=== PATIENT | female | born 1975 | race Caucasian/White ===

== ENCOUNTER 2024-05-09 10:09 | Emergency (ER) | payer OTHER, SELFPAY ==
[2024-05-09] VITALS (12 sets, daily range): BP systolic 129–141; BP diastolic 65–98; PULSE 70–89; TEMP 37; O2SAT 96–98; BMI 34.2
--- NOTE | 2024-05-09 10:15 | ECG_ITS ---
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
--- NOTE | 2024-05-09 10:27 | US_ITS ---
The [address] [address] Patient Name: MIKE SAMPSON MRN: [id number] date: 1975 Sex: F Assigned Patient Location: ER Current Patient Location: ED.MAIN Accession/Order Number: [id number] Exam Date: 05/09/2024 10:28 Report Date: 05/09/2024 11:31 At the request of: NATHANAEL ROSE Procedure: US venous doppler LE LT EXAM: US venous doppler LE LT HISTORY: calf swelling COMPARISON: None. TECHNIQUE: Grayscale, color and Doppler FINDINGS: Region: Left leg Thrombus: None Flow: Normal Augmentation: Normal Compressibility: Normal Other: Identified in the lateral thigh correspond to the patient's palpable mass is a focal 4.0 x 4.1 x 1.1 cm lesion isoechoic to the surrounding subcutaneous fat, a lipoma is favored US/US venous doppler LE LT IMPRESSION: No deep or superficial vein thrombus identified in the left leg 4.1 cm lipoma corresponding to the patient's palpable abnormality Electronically authenticated by: SYDNI JORDAN Date: 05/09/2024 11:31
[2024-05-09 10:42] LABS: Basophils Percent Auto 0.7 % (0.2-2.0); Eosinophils Absolute Auto 0.1 10^3/uL (0.0-0.7); Eosinophils Percent Auto 1.6 % (0.9-7.0); Hematocrit 33.5 % (36.0-48.0); Hemoglobin 12.1 g/dL (12.0-16.0); Immature Granulocytes Abs Auto 0.02 10^3/uL (0.00-0.03); Immature Granulocytes Pct Auto 0.3 % (0.0-0.5); Lymphocytes Absolute Auto 1.9 10^3/uL (1.2-3.8); Lymphocytes Percent Auto 30.4 % (20.5-60.0); Mean Corpuscular HGB Conc 36.1 g/dL (29.9-35.2); Mean Corpuscular Hemoglobin 30.3 pg (26.7-34.0); Mean Platelet Volume 9.7 fL (9.5-13.5); Monocytes Absolute Auto 0.4 10^3/uL (0.3-0.8); Monocytes Percent Auto 7.2 % (1.7-12.0); Neutrophils Absolute Auto 3.7 10^3/uL (1.4-6.5); Neutrophils Percent Auto 59.8 % (43.0-75.0); Platelet Count 267 10^3/uL (150-450); Red Blood Count 3.99 10^6/uL (4.20-5.40); White Blood Count 6.2 10^3/uL (4.0-11.0)
--- NOTE | 2024-05-09 10:47 | XR_ITS ---
The [address] [address] Patient Name: MIKE SAMPSON MRN: [id number] date: 1975 Sex: F Assigned Patient Location: ED.MAIN Current Patient Location: ER Accession/Order Number: [id number] Exam Date: 05/09/2024 10:40 Report Date: 05/09/2024 10:57 At the request of: NATHANAEL ROSE Procedure: XR chest 1V EXAMINATION: XR chest 1V HISTORY: cp COMPARISON: No relevant comparison available. TECHNIQUE: AP portable FINDINGS: LUNGS: No significant pulmonary parenchymal abnormalities. VASCULATURE: No increased pulmonary vasculature. PLEURA: No pneumothorax, effusion, or pleural thickening. CARDIAC: No cardiomegaly or cardiac silhouette abnormality. MEDIASTINUM: No visible mass or adenopathy. Loop Recorder BONES: No fracture or visible bone lesion. OTHER: Negative. XR/XR chest 1V IMPRESSION: No acute cardiopulmonary process Electronically authenticated by: SYDNI JORDAN Date: 05/09/2024 10:57
[2024-05-09 10:55] LABS: D Dimer 0.32 mg/L FEU (<=0.59)
[2024-05-09 10:56] LABS: HCG Qualitative NEGATIVE (NEGATIVE); Internal Control Within Normal Limits
[2024-05-09 10:59] LABS: Alanine Aminotransferase 62 U/L (14-59); Albumin Globulin Ratio 1.1; Albumin Level 3.6 g/dL (3.4-5.0); Alkaline Phosphatase 104 U/L (46-116); Anion Gap 14.8; Aspartate Amino Transferase 40 U/L (15-37); BUN Creatinine Ratio 10.6; Bilirubin Total 0.5 mg/dL (0.2-1.0); Chloride 103 mmol/L (98-107); Estimated GFR (African America >60 (>=60 mL/min/1.73m^2); Estimated GFR (Non-African Ame >60 (>=60 mL/min/1.73m^2); Globulin 3.4 g/dL; Glucose 109 mg/dL (74-106); Sodium 141 mmol/L (136-145); Troponin I High Sensitivity <4.0 pg/mL (4.0-51.3)
[2024-05-09 11:00] LABS: Potassium 2.8 mmol/L (3.5-5.1)
[2024-05-09] MEDS: POTASSIUM BICARBONATE/CIT 25 MEQ TABLET EFF 50 MEQ PO (11:14)
--- NOTE | 2024-05-09 11:24 | ED.CHESTPAI1 ---
HPI - Chest Pain General Chief Complaint: Chest Pain Stated Complaint: CHEST PAIN/ SHORTNESS OF BREATH Time Seen by Provider: 05/09/24 10:14 Mode of arrival: walk-in Limitations: no limitations History of Present Illness HPI narrative: The patient is a 48-year-old female is coming to the ER with a complaint of symptoms that started almost an hour before arrival, the patient apparently was in her work when she started having tongue numbness and left-sided facial numbness then she started having retrosternal chest pain and she took some nitro, though symptoms just resolved before arrival The patient denies any shortness of breath nausea vomiting or any other concerns She mentioned that she have a lump in the posterior aspect of her left thigh that been going on for a while She denies any other complaints of difficulty breathing although she mentioned that over the last few days she has been feeling generally tired No fever no chills no chest pain at the moment it all resolved after she took the nitro Related Data Home Medications ?Medication ?Instructions ?Recorded ?Confirmed amlodipine 10 mg tablet 10 mg PO QDAY 05/09/24 05/09/24 atorvastatin 80 mg tablet 80 mg PO .qhs 05/09/24 05/09/24 carvedilol 3.125 mg tablet 3.125 mg PO Q12H 05/09/24 05/09/24 cholecalciferol (vitamin D3) 10 10 mcg PO QDAY 05/09/24 05/09/24 mcg (400 unit) capsule (Vitamin D3) ezetimibe 10 mg tablet 10 mg PO QDAY 05/09/24 05/09/24 gabapentin 300 mg capsule 300 mg PO Q12H 05/09/24 05/09/24 hydroxyzine pamoate 25 mg capsule 25 mg PO Q6H PRN anxiety 05/09/24 05/09/24 pantoprazole 40 mg tablet,delayed 40 mg PO Q12H 05/09/24 05/09/24 release paroxetine HCl 40 mg tablet 40 mg PO QDAY 05/09/24 05/09/24 ranolazine 1,000 mg 1,000 mg PO Q12H 05/09/24 05/09/24 tablet,extended release,12 hr ticagrelor 60 mg tablet (Brilinta) 60 mg PO Q12H 05/09/24 05/09/24 trazodone 100 mg tablet 100 mg PO .qhs 05/09/24 05/09/24 Previous Rx's ?Medication ?Instructions ?Recorded potassium bicarbonate-citric acid 20 meq PO DAILY #5 ea 05/09/24 20 mEq effervescent tablet Allergies Allergy/AdvReac Type Severity Reaction Status Date / Time clopidogrel (From Plavix) AdvReac Severe crystalized Verified 05/09/24 10:23 in brain Review of Systems ROS Status of ROS 10 or more systems reviewed and unremarkable except as noted in history and below PFSH [facility] Medical History (Updated 05/09/24 @ 11:53 by Martina Mcqueen MD) Heart disease ?I51.9 - Heart disease, unspecified (ICD-10) Surgical History (Updated 05/09/24 @ 10:25 by Jordon Sahu) Hx of cholecystectomy ?Z90.49 - Acquired absence of other specified parts of digestive tract (ICD-10) Hx of spinal fusion ?Z98.1 - Arthrodesis status (ICD-10) Hx of hysterectomy ?Z90.710 - Acquired absence of both cervix and uterus (ICD-10) Social History Little interest or pleasure in doing things: not at all Feeling down, depressed, or hopeless: not at all Exam Narrative Exam Narrative: Nurses notes and vital signs reviewed and patient is not hypoxic. General: Well-appearing and in no apparent distress. Skin: Warm, dry, no pallor noted. No rash. Head: Normocephalic, atraumatic. Neck: Supple, non-tender. Eye: Pupils are equal, round and EOMI. No scleral icterus. Ears, Nose, Mouth, and Throat: TM are clear, no nasal mucosal hypertrophy. Oral mucosa is moist, no posterior oropharynx erythema, uvula is mid-line Cardiovascular: Regular Rate and Rhythm without murmur, gallop or rub. Respiratory: No accessory muscle use or respiratory distress. Lungs are clear to auscultation, no wheezing, rales or rhonchi Chest Wall: no tenderness Back: No midline thoracic or lumbar vertebral tenderness. No CVA tenderness Musculoskeletal: normal ROM, no calf or popliteal tenderness, no lower extremity edema/swelling, on the posterior aspect of the left thigh the patient have an swelling almost 2 x 5 cm oval in shape soft and nontender GI: Abdomen is soft, non-distended. Normal bowel sounds. No masses appreciated. No tenderness to palpation. No rebound, guarding, or rigidity noted. Neurological: A&O x4. No cranial nerve dysfunction observed. No truncal ataxia. Moves all extremities. Sensation intact. Psychiatric: Cooperative and interactive. Normal mood and affect. Constitutional Vital Signs, click to edit/add: Last Vital Signs Temp 98.6 F 05/09/24 10:16 Pulse 77 05/09/24 12:39 Resp 16 05/09/24 12:39 BP 130/65 05/09/24 12:39 Pulse Ox 96 05/09/24 12:39 O2 Del Method Room Air 05/09/24 12:39 Course Vital Signs Vital signs: Vital Signs Temperature 98.6 F 05/09/24 10:16 Pulse Rate 89 05/09/24 10:16 Respiratory Rate 20 05/09/24 10:16 Blood Pressure 141/98 H 05/09/24 10:16 Pulse Oximetry 98 05/09/24 10:16 Oxygen Delivery Method Room Air 05/09/24 10:16 Temperature 98.6 F 05/09/24 10:16 Pulse Rate 77 05/09/24 12:39 Respiratory Rate 16 05/09/24 12:39 Blood Pressure 130/65 05/09/24 12:39 Pulse Oximetry 96 05/09/24 12:39 Oxygen Delivery Method Room Air 05/09/24 12:39 MDM - Chest Pain MDM Narrative Medical decision making narrative: The patient EKG in the ER showing sinus rhythm with a heart rate of [address] elevation or depression The patient chest x-ray CBC and chemistry showed no acute pathology except for potassium 2.8 There was no EKG changes of hyperkalemia The patient also had a troponin repeated twice and was negative The patient had a stress test that was negative as well within the last year Right now the patient was instructed that she will continue p.o. potassium as it was started in the ER and she also to follow-up with her primary care doctor for further evaluation, the follow-up also needed to repeat the potassium level The patient to rest for the next few days and come back in case of any new symptoms she is to follow up with her primary care doctor for further referral to cardiology in case needed The patient is to follow up with primary care physician in next 2-3 days or to return to the emergency department should any of the signs or symptoms worsen or new symptoms develop. The patient agrees with the following Diagnosis and Treatment plan and the patient will be discharged home. Lab Data Labs: Lab Results 05/09/24 05/09/24 Range/Units 10:35 11:52 WBC 6.2 (4.0-11.0) 10^3/uL RBC 3.99 L (4.20-5.40) 10^6/uL Hgb 12.1 (12.0-16.0) g/dL Hct 33.5 L (36.0-48.0) % MCV 84.0 (81.0-99.0) fL MCH 30.3 (26.7-34.0) pg MCHC 36.1 H (29.9-35.2) g/dL RDW 12.0 (11.0-15.0) % Plt Count 267 (150-450) 10^3/uL MPV 9.7 (9.5-13.5) fL Neut % (Auto) 59.8 (43.0-75.0) % Lymph % (Auto) 30.4 (20.5-60.0) % [place] % (Auto) 7.2 (1.7-12.0) % Eos % (Auto) 1.6 (0.9-7.0) % Baso % (Auto) 0.7 (0.2-2.0) % Neut # (Auto) 3.7 (1.4-6.5) 10^3/uL Lymph # (Auto) 1.9 (1.2-3.8) 10^3/uL [place] # (Auto) 0.4 (0.3-0.8) 10^3/uL Eos # (Auto) 0.1 (0.0-0.7) 10^3/uL Baso # (Auto) 0.0 (0.0-0.1) 10^3/uL Abs Immat Gran (auto) 0.02 (0.00-0.03) 10^3/uL Imm/Tot Granulo (auto) 0.3 (0.0-0.5) % D-Dimer 0.32 (<=0.59) mg/L FEU Sodium 141 (136-145) mmol/L Potassium 2.8 L* (3.5-5.1) mmol/L Chloride 103 (98-107) mmol/L Carbon Dioxide 26.0 (21.0-32.0) mmol/L Anion Gap 14.8 BUN 10.0 (7.0-18.0) mg/dL Creatinine 0.94 (0.55-1.02) mg/dL Est GFR ( Amer) >60 (>=60 mL/min/1.73m^2) Est GFR (Non-Af Amer) >60 (>=60 mL/min/1.73m^2) BUN/Creatinine Ratio 10.6 Glucose 109 H (74-106) mg/dL Calcium 9.0 (8.5-10.1) mg/dL Total Bilirubin 0.5 (0.2-1.0) mg/dL AST 40 H (15-37) U/L ALT 62 H (14-59) U/L Alkaline Phosphatase 104 (46-116) U/L Troponin I High Sens <4.0 L <4.0 L (4.0-51.3) pg/mL Total Protein 7.0 (6.4-8.2) g/dL Albumin 3.6 (3.4-5.0) g/dL Globulin 3.4 g/dL Albumin/Globulin Ratio 1.1 Serum HCG, Qual Negative (NEGATIVE) Discharge Plan Discharge Chief Complaint: Chest Pain Clinical Impression: Chest pain, Hypokalemia Patient Disposition: Home, Self-Care Time of Disposition Decision: 12:22 Prescriptions / Home Meds: New potassium bicarb-citric acid 20 mEq tablet, effervescent 20 meq PO DAILY Qty: 5 0RF No Action amlodipine 10 mg tablet 10 mg PO QDAY atorvastatin 80 mg tablet 80 mg PO .qhs carvedilol 3.125 mg tablet 3.125 mg PO Q12H cholecalciferol (vitamin D3) [Vitamin D3] 10 mcg (400 unit) capsule 10 mcg PO QDAY ezetimibe 10 mg tablet 10 mg PO QDAY gabapentin 300 mg capsule 300 mg PO Q12H hydroxyzine pamoate 25 mg capsule 25 mg PO Q6H PRN (Reason: anxiety) pantoprazole 40 mg tablet,delayed release (DR/EC) 40 mg PO Q12H paroxetine HCl 40 mg tablet 40 mg PO QDAY ranolazine 1,000 mg tablet extended release 12 hr 1,000 mg PO Q12H Brilinta 60 mg tablet 60 mg PO Q12H trazodone 100 mg tablet 100 mg PO .qhs Print Language: Swedish Instructions: Chest Pain (DC), Hypokalemia (ED) Referrals: Lovely Wray NP [Primary Care Provider] - 1 week Discharge Date/Time: 05/09/24 12:41
[2024-05-09 12:12] LABS: Troponin I High Sensitivity <4.0 pg/mL (4.0-51.3)
== END 2024-05-09 12:41 | disposition home or self-care (01) ==
PROVIDERS: Emergency Provider Emergency Medicine; PCP Nurse Practitioner Family
DX: R07.9 Chest pain, unspecified (principal); E87.6 Hypokalemia
CPT/HCPCS: 36415; 71045; 80053; 84484; 84703; 85025; 85378; 93005; 93971; 99285

== ENCOUNTER 2024-08-20 16:38 | Observation (INO) | payer OTHER, SELFPAY ==
[2024-08-20] VITALS (25 sets, daily range): BP systolic 138–182; BP diastolic 80–121; PULSE 74–97; TEMP 36.3–36.7; O2SAT 95–99; BMI 32.6; BMI 31.4
--- NOTE | 2024-08-20 16:52 | ECG_ITS ---
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
--- NOTE | 2024-08-20 16:52 | XR_ITS ---
The [address] [address] Patient Name: MIKE SAMPSON MRN: [id number] date: 1975 Sex: F Assigned Patient Location: ER Current Patient Location: ED.MAIN Accession/Order Number: [id number] Exam Date: 08/20/2024 17:05 Report Date: 08/20/2024 19:02 At the request of: TIFFANIE OWEN Procedure: XR chest 1V EXAMINATION: XR chest 1V, , 08/20/2024 2:05 PM PST INDICATION: chest pain HISTORY: Ordering Provider Reason for Exam: chest pain Technologist Note: Additional: COMPARISON: None. TECHNIQUE: Chest x-ray: One view. FINDINGS: No pneumothorax, pleural effusion or focal airspace consolidation. Heart is normal in size. Bony thorax is unremarkable. XR/XR chest 1V IMPRESSION: No acute cardiopulmonary process. Electronically authenticated by: ELVIE NOBLES Date: 08/20/2024 19:02
--- OUTSIDE RECORDS SUMMARY | 2024-08-20 16:53 | XMS_ITS | CCD ---
Author Organization [facility] Care Team Providers Care Tour Operator Name Role Phone Ena Fung Unavailable Unavailable Ena Fung Unavailable Unavailable Ena Fung Unavailable Unavailable Ahmad Unavailable Unavailable Ena Fung Primary Care Provider [phone] Ena Fung Primary Care Provider Ena Fung Unavailable Ena Fung Primary Care Provider [phone] Ena Fung Primary Care Provider Ena Luis APRN, CNP Primary Care Provider Ena Luis APRN, CNP Primary Care Provider Ena Fung CNP Primary Care Provider [phone] Ena Fung CNP Primary Care Provider Ena Luis APRN, CNP Primary Care Provider Ena Luis APRN, CNP Primary Care Provider Ena Luis APRN, CNP Primary Care Provider Ena Luis APRN, CNP Primary Care Provider ENA FUNG Primary Care Unavailable SAILAJA MORALEZ Attending Unavailable SAILAJA MORALEZ Consulting Unavailable SAILAJA MORALEZ Admitting Unavailable ZAIDAT, OSAMA O Consulting Unavailable Ena Fung CNP Primary Care Provider [place] OIL DISTRIBUTOR - SUPERINTENDENT PRESSURE, Ena M Primary Care Provider [place] OIL DISTRIBUTOR - SUPERINTENDENT PRESSURE, Ena M Primary Care Provider [place] OIL DISTRIBUTOR-SUPERINTENDENT PRESSURE, Ena Hillary Primary Care Eve vailable Link OIL DISTRIBUTOR-SUPERINTENDENT PRESSURE, Mell Daniels Attending Unava bernie Lucero MD, Asim De Oliveira Attending Unavailable [place] OIL DISTRIBUTOR-SUPERINTENDENT PRESSURE, Ena Hillary Primary Care Eve vailable KENTON, ENA M Primary Care Unavailable JAXSON FERRER Attending Unavailable JANAE MCCABE Attending Unavailable KENTON, ENA M Primary Care Unavailable KENTON, ENA M Primary Care Unavailable CAR MATTHEWS Consulting Unavailable NASREEN ARMENDARIZ Admitting Unavailable NASREEN ARMENDARIZ Attending Unavailable KENTON, ENA M Primary Care Unavailable KENTON, ENA M Primary Care Unavailable RL BLANC Admitting Unavailable RL BLANC Attending Unavailable RONAN RODRIGUEZ Attending Unavailable KENT[place], ENA M Primary Care Unavailable RONAN RODRIGUEZ Admitting Unavailable CAROLINE CARRION Referring Unavailable KENTON, ENA M Primary Care Unavailable KENTON, ENA M Primary Care Unavailable CAROLINE CARRION Referring Unavailable CAROLINE CARRION Referring Unavailable KENTON, ENA M Primary Care Unavailable KENTON, ENA M Primary Care Unavailable LISA BLACKMAN Attending Unavailable KENTON, ENA M Primary Care Unavailable KENTON, ENA M Primary Care Unavailable ROBERT BARBOSA Referring Unavailable KENTON, ENA M Primary Care Unavailable Allergies Allergy Classification Reported Allergen(s) Allergy Type Date of Onset Reaction(s) Facility Cephalosporins (antibiotic) (12 sources) Cephalexin; Translations: [Keflex] Drug Allergy 4 Hives, rash, Skin Rashes / Eruption of skin [facility] Platelet Inhibitors (P2Y12, not including aspirin) (2 sources) clopidogrel; Translations: [Plavix] Drug Allergy 2 [facility] Serotonin Reuptake Inhibitors (SSRIs) (1 source) Citalopram; Translations: [CeleXA 10 MG Oral Tablet] Drug Allergy 4 Suicidal thoughts [facility] (20 sources) cephalexin; Translations: [Keflex] Drug Allergy 4 rash, Skin Rashes / Eruption of skin [facility] (20 sources) -No Environmental Allergies Allergy to substance (disorder) [facility] (6 sources) -No Known Food Allergies Allergy to substance (disorder) [facility] Work Phone: (20 sources) Cephalosporins (Antibiotic); Translations: [CEPHALOSPORINS] Propensity to adverse reactions to drug 4 Hives [place], [place] (20 sources) Cephalexin Drug Allergy 0 [place] (20 sources) clopidogrel; Translations: [Plavix] Drug Allergy 2 [facility] (20 sources) clopidogrel; Translations: [CLOPIDOGREL] Drug Allergy 2 [facility] (2 sources) Citalopram; Translations: [CeleXA 10 MG Oral Tablet] Drug Allergy 4 Suicidal thoughts [facility] Medications Current Medications Medication Drug Class(es) Dates Sig (Normalized) Sig (Original) *CPAP AND SUPPLIES Miscellaneous (9 sources) Start: 02-01-2023 *CPAP AND SUPPLIES Miscellaneous 02/01/2023 Provider: *Captain/Check Airman Miscellaneous (not specified) (18 sources) Start: 11-26-2021 *Captain/Check Airman Miscellaneous (not specified) 11/26/2021 Provider: Ena Fung CNP *NEBULIZER AND SUPPLIES Miscellaneous (20 sources) Start: 03-11-2022 *NEBULIZER AND SUPPLIES Miscellaneous 03/11/2022 Provider: Veronica Renteria CNP Start: 03-11-2022 End: 03-11-2022 *NEBULIZER AND SUPPLIES Misc ellaneous 03/11/2022 - 03/11/2022 Provider: Veronica Renteria CNP Acetaminophen / HYDROcodone (10 sources) Opioid Agonist Start: 12-23-2023 hydrocodone-ac etaminophen (NORCO) tablet 5-325 mg (STARTER PACK) Start: 08-12-2023 End: 08-17-2023 HYDROcodone-acetaminophen (N ORCO) 5-325 MG per tablet Indications: Abdominal pain, epigastric Take 1 tablet by mouth every 4 hours as needed for Pain for up to 5 days. Intended supply: 7 days. Take lowest dose possible to manage pain Max Daily Amount: 6 tablets 10 tablet 0 08/12/2023 08/17/2023 Active Start: 03-05-2023 End: 03-05-2023 HYDROcodone-acetaminophen (N ORCO) 5-325 MG per tablet 1 tablet Start: 03-05-2023 End: 03-08-2023 HYDROcodone-acetaminophen (N ORCO) 5-325 MG per tablet Indications: Dog bite of left hand, initial encounter Take 1 tablet by mouth every 4 hours as needed for Pain for up to 3 days. Intended supply: 7 days. Take lowest dose possible to manage pain Max Daily Amount: 6 tablets 6 tablet 0 03/05/2023 03/08/2023 Active Start: 07-28-2022 End: 08-12-2023 HYDROcodone-acetaminophen (N ORCO) 5-325 MG per tablet Indications: Acute gastritis, presence of bleeding unspecified, unspecified gastritis type , Nausea and vomiting, unspecified vomiting type , S/P PTCA (percutaneous transluminal coronary angioplasty) Take 1 tablet by mouth every 6 hours as needed for Pain for up to 3 days. Intended supply: 3 days. Take lowest dose possible to manage pain Max Daily Amount: 4 tablets 8 tablet 0 07/28/2022 07/31/2022 Active Start: 07-28-2022 End: 07-28-2022 HYDROcodone-acetaminophen (N ORCO) 5-325 MG per tablet 1 tablet Start: 05-01-2022 End: 05-01-2022 HYDROcodone-acetaminophen (N ORCO) 5-325 MG per tablet 1 tablet [id number] actuat albuterol 0.09 mg/actuat metered dose inhaler (9 sources) beta2-Adrenergic Agonist Start: 02-01-2023 Albut marleen Sulfate HFA 108 (90 Base) MCG/ACT Inhalation Aerosol Solution 02/01/2023 Provider: Ena Fung CNP ALPRAZolam 0.5 mg oral tablet (4 sources) Benzodiazepine Start: 01-27-2024 End: 02-08-2024 ALPRAZolam 0.5 MG Oral Tablet 02/08/2024 Provider: Ena Fung CNP Start: 01-27-2024 ALPRAZolam 0.5 MG Oral Tablet 01/27/2024 Provider: Ena Fung CNP amLODIPine 10 mg oral tablet (20 sources) Dihydropyridine Calcium Channel Christos Start: 12-16-2023 take 1 tablet by mouth once daily amLODIPine (NORVASC) 10 MG tablet Take 1 tablet by mouth daily 90 tablet 3 12/16/2023 Active Start: 01-18-2023 take 1 tablet by troy th once daily amLODIPine (NORVASC) 5 MG tablet Take 1 tablet by mouth daily 90 tablet 1 01/18/2023 Active Start: 09-30-2022 take 2 tablets by mo uth once daily amLODIPine (NORVASC) 2.5 MG tablet Take 2 tablets by mouth once daily 180 tablet 3 09/30/2022 Active Start: 03-27-2022 take 2 tablets by mo uth once daily amLODIPine (NORVASC) 2.5 MG tablet Take 2 tablets by mouth daily 90 tablet 3 03/27/2022 Active Start: 01-13-2022 take 2 tablets by mo uth once daily amLODIPine (NORVASC) 2.5 MG tablet Take 2 tablets by mouth daily 90 tablet 3 01/13/2022 Active Start: 06-23-2021 End: 11-19-2022 amLODIPine Besylate 2.5 MG O ral Tablet 09/21/2021 - 11/19/2022 Provider: Start: 02-23-2019 End: 06-08-2019 take 1 tablet by mouth once daily amLODIPine (NORVASC) 2.5 MG tablet Indications: Coronary artery disease involving ute coronary artery of ute heart without angina pectoris , S/P PTCA (percutaneous transluminal coronary angioplasty) , Essential hypertension , Mixed hyperlipidemia Take 1 tablet by mouth daily 90 tablet 3 02/23/2019 06/08/2019 Discontinued (Therapy completed) Start: 08-13-2018 End: 06-17-2020 AMLODIP[place] 2.5 [place] [facility] - 06/17/2020 Provider: Start: 08-13-2018 End: 08-13-2018 AMLODIPINE 2.5 mg [facility] [place] - 08/13/2018 Provider: take 1 tablet by troy th once daily amlodipine 2.5 mg oral tablet take 1 tablet (2.5 mg) by oral route once daily aspirin 81 mg delayed release oral tablet (20 sources) Platelet Aggregation Inhibitor, Nonsteroidal Anti-inflammatory Drug Start: 08-20-2022 aspirin tablet 32 5 mg Start: 10-06-2021 End: 10-06-2021 aspirin chewable tablet 162 mg Start: 08-21-2019 aspirin chewab le tablet 324 mg Start: 10-02-2017 End: 09-07-2023 take 1 tablet by mouth once daily aspirin 81 MG EC tab let Take 1 tablet by mouth daily 30 tablet 3 10/23/2021 Active atorvastatin 80 mg oral tablet (20 sources) HMG-CoA Reductase Inhibitor Start: 10-19-2021 atorvastatin (LIPITO R) tablet 80 mg Start: 10-07-2021 take 80 mg by mouth once daily 80 mg, Oral, DAILY, First dose on Tu10/07/21 at 0900 Start: 06-23-2021 End: 01-27-2024 Atorvastatin Calcium 80 MG O ral Tablet 01/27/2024 Provider: Ena Fung CNP Start: 01-02-2021 take 80 mg by mouth once daily 80 mg, Oral, NIGHTLY, First dose on Vivian 01/02/21 at 2100 Start: 08-28-2020 take 80 mg by mouth once daily 80 mg, Oral, DAILY, First dose on Wed08/28/20 at 2000 Start: 02-20-2020 take 1 tablet by troy th once daily atorvastatin (LIPITOR) 80 MG tablet Indications: Dizziness , Mixed hyperlipidemia , Essential hypertension Take 1 tablet by mouth daily 90 tablet 3 02/20/2020 Active Start: 04-20-2019 take 40 mg by mouth once daily 40 mg, Oral, NIGHTLY, First dose on Vivian 04/20/19 at 2100 Start: 08-13-2018 End: 06-17-2020 ATORVASTATIN 10 MG MISC 07/20 - 06/17/2020 Provider: Start: 08-13-2018 End: 08-13-2018 ATORVASTATIN 10 MG MISC 07/20 - 08/13/2018 Provider: Start: 07-11-2018 End: 10-13-2021 Lipitor 40 MG OR TABS 2018 - 06/17/2020 Provider: Conversion Provider Start: 04-26-2018 End: 06-23-2018 take 1 tablet by mouth once daily at bedtime atorvastatin 80 mg oral tablet 04/26/2018 06/23/2018 take 1 tablet (80 mg) by oral route once daily at bedtime (has good rx) changed by cardio Start: 04-26-2018 End: 06-17-2020 ATORVASTATIN 80 MG MISC 03/2018 - 06/17/2020 Provider: Start: 04-26-2018 End: 04-26-2018 ATORVASTATIN 80 MG MISC 100 03/2018 - 04/26/2018 Provider: Start: 02-04-2018 End: 06-17-2020 ATORVASTATIN 80 MG MISC 2 - 06/17/2020 Provider: Start: 02-04-2018 End: 02-04-2018 ATORVASTATIN 80 MG MISC 01/17 - 02/04/2018 Provider: Start: 02-04-2018 take 1 tablet by troy th once daily at bedtime atorvastatin 80 mg oral tablet 02/04/2018 take 1 tablet (80 mg) by oral route once daily at bedtime End: 01-20-2018 take 1 tablet by mouth once daily Lipitor 40 mg oral tablet take 1 tablet (40 mg) by oral route once daily End: 01-20-2018 take 1 tablet by mouth once daily at bedtime atorvastatin 10 mg oral tablet 01/20/2018 take 1 tablet (10 mg) by oral route once daily at bedtime 60 actuat budesonide 0.08 mg/actuat / formoterol fumarate 0.0045 mg/actuat metered dose inhaler (12 sources) Corticosteroid, beta2-Adrenergic Agonist Start: 01-27-2024 Symbicort 80-4. 5 MCG/ACT Inhalation Aerosol 01/27/2024 Provider: Ena Fung CNP Start: 02-01-2023 End: 01-27-2024 Symbicort 80-4.5 MCG/ACT Inh alation Aerosol 02/01/2023 - 01/27/2024 Provider: Ena Fung CNP carvedilol 3.125 mg oral tablet (2 sources) alpha-Adrenergic Christos, beta-Adrenergic Christos Start: 12-31-2023 take 1 tablet by mouth twice daily carvedilol (COREG) 3.125 MG tablet Indications: ASHD (arteriosclerotic heart disease) , S/P angioplasty with stent , Primary hypertension , Mixed hyperlipidemia , Chest pain in adult , Stable angina (HCC) Take 1 tablet by mouth 2 times daily 180 tablet 3 12/31/2023 Active cetirizine hydrochloride 10 mg oral tablet (20 sources) Histamine-1 Receptor Antagonist Start: 01-29-2023 ZyrTEC Allergy 10 MG Oral Tablet 01/29/2023 Provider: Ena Fung CNP Start: 06-23-2021 End: 12-21-2022 ZyrTEC Allergy 10 MG Oral Ta blet 06/23/2021 - 12/21/2022 Provider: Ena Fung CNP Start: 03-20-2021 End: 05-28-2021 ZyrTEC Allergy 10 MG Oral Ta blet 03/20/2021 - 05/28/2021 Provider: Veronica Renteria CNP cholecalciferol 0.01 mg oral capsule (20 sources) Vitamin D Start: 02-01-2023 Vitamin D (Cho lecalciferol) 10 MCG (400 UNIT) Oral Capsule 02/01/2023 Provider: Ena Fung CNP Start: 10-07-2021 take 1000 [IU] by mo uth once daily 1,000 Units, Oral, DAILY, First dose on Wed10/07/21 at 0900 Start: 03-23-2017 End: 10-15-2017 take 1 tablet by mouth twice daily Vitamin D3 400 unit oral tablet 03/23/2017 10/15/2017 take 1 tablet by oral route twice daily Start: 03-23-2017 End: 06-17-2020 Vitamin D3 10 MCG (400 UNIT) OR TABS 03/23/2017 - 06/17/2020 Provider: Cholecalciferol (VITAMIN D) 50 MCG (2000 UT) CAPS capsule Take by mouth daily 0 Active clindamycin 300 mg oral capsule (3 sources) Lincosamide Antibacterial Start: 02-15-2023 End: 02-22-2023 take 1 capsule by mouth twice daily clindamycin (CLEOCIN) 300 MG capsule Take 1 capsule by mouth 2 times daily for 7 days 14 capsule 0 02/15/2023 02/22/2023 Active Start: 10-22-2021 End: 10-22-2021 clindamycin (CLEOCIN) 600 mg in dextrose 5 % 50 mL IVPB Start: 11-22-2020 End: 11-22-2020 clindamycin (CLEOCIN) 600 mg in dextrose 5 % 50 mL IVPB docusate sodium 100 mg oral capsule (8 sources) Start: 08-04-2023 Colace 100 MG Oral Capsule 08/04/2023 Provider: Ena Fung CNP 0.4 ml enoxaparin sodium 100 mg/ml prefilled syringe (6 sources) Low Molecular Weight Heparin Start: 10-21-2021 enoxaparin (LOVENOX) injection 40 mg Start: 10-20-2021 enoxaparin (LO VENOX) injection 40 mg Start: 10-07-2021 inject 40 mg by subc utaneous injection once daily 40 mg, SubCUTAneous, DAILY, First dose on Wed10/07/21 at 0900 Start: 12-28-2019 inject 40 mg by subc utaneous injection once daily 40 mg, Subcutaneous, DAILY, First dose on Wed12/28/19 at 1530 Start: 10-09-2019 enoxaparin (LO VENOX) injection 40 mg Start: 04-20-2019 inject 40 mg by subc utaneous injection once daily 40 mg, Subcutaneous, DAILY, First dose on Wed04/20/19 at 0900 estradiol 1 mg oral tablet (20 sources) Estrogen Start: 01-13-2024 take 1.5 tablets by mouth once daily estradiol (ESTRACE) 1 MG tablet Indications: Premature surgical menopause on hormone replacement therapy Take 1.5 tablets by mouth daily 45 tablet 2 01/13/2024 Active Start: 05-20-2022 Estradiol 1 MG Oral Tablet 11/09/2022 Provider: Start: 03-10-2021 take 1 tablet by troy th once daily estradiol (ESTRACE) 1 MG tablet Indications: Premature menopause take 1 tablet by mouth once daily 30 tablet 12 03/10/2021 Active Start: 02-22-2020 take 1 tablet by troy th once daily estradiol (ESTRACE) 1 MG tablet Indications: Premature menopause Take 1 tablet by mouth daily 30 tablet 12 02/22/2020 Active estrogens, esterified (assisted) 1.25 mg / methylTESTOSTERone 2.5 mg oral tablet (20 sources) Androgen Start: 10-07-2021 take 1 tablet by mouth once daily 1 tablet, Oral, DAILY, First dose on Wed10/07/21 at 0900 Start: 07-24-2021 End: 10-27-2022 take 1.25-2.5 mg by mouth once estrogens, conjugated,-methylTESTOSTERon e (ESTRATEST) 1.25-2.5 MG per tablet Indications: Symptoms, such as flushing, sleeplessness, headache, lack of concentration, associated with the menopause TAKE 1 TABLET BY MOUTH DAILY 30 tablet 5 04/30/2022 10/27/2022 Active Start: 05-08-2021 End: 11-19-2022 Est Estrogens-Methyltest 1.2 5-2.5 MG Oral Tablet 05/08/2021 - 11/19/2022 Provider: ezetimibe 10 mg oral tablet (20 sources) Dietary Cholesterol Absorption Inhibitor Start: 12-07-2023 take 1 tablet by mouth once daily ezetimibe (ZETIA) 10 MG tablet Indications: Chest pain in adult , SOB (shortness of breath) , Lightheaded , Dizziness , Heart palpitations , ASHD (arteriosclerotic heart disease) , S/P angioplasty with stent , Cryptogenic stroke (HCC) , Primary hypertension , Mixed hyperlipidemia , MATT on CPAP , Implantable loop recorder present Take 1 tablet by mouth daily 90 tablet 3 12/07/2023 Active Start: 10-08-2021 End: 08-04-2023 Zetia 10 MG Oral Tablet 07/19 Provider: famotidine 20 mg oral tablet (5 sources) Histamine-2 Receptor Antagonist Start: 08-12-2023 take 1 tablet by mouth twice daily famotidine (PEPCID) 20 MG tablet Take 1 tablet by mouth 2 times daily 60 tablet 3 08/12/2023 Active Start: 06-08-2019 End: 06-08-2019 famotidine (PEPCID) injectio n 20 mg fenofibrate 54 mg oral tablet (4 sources) Peroxisome Proliferator Receptor alpha Agonist Start: 04-20-2019 End: 06-08-2019 take 54 mg by mouth once daily 54 mg, Oral, DAILY, First dose on Vivian 04/20/19 at 0900 Substituted for Fenofibrate (Non-Formulary Dose). gabapentin 300 mg oral capsule (20 sources) Anti-epileptic Agent Start: 01-29-2023 End: 01-27-2024 Gabapentin 300 MG Oral Capsule, conventional 01/27/2024 Provider: Ena Fung CNP Start: 11-26-2021 End: 12-21-2022 Gabapentin 300 MG Oral Capsu le 01/30/2022 - 12/21/2022 Provider: Ena Fung CNP glucagon (rdna) 1 mg injection (1 source) Antihypoglycemic Agent Start: 04-20-2019 glucago n (rDNA) injection 1 mg 1000 ml glucose 500 mg/ml injection (4 sources) Start: 10-19-2021 End: 10-19-2021 dextrose 50 % IV solution Start: 04-20-2019 glucose (GLUTO SE) 40 % oral gel 15 g Start: 04-20-2019 dextrose 50 % IV solution Start: 04-20-2019 dextrose 5 % s olution hydrOXYzine pamoate 25 mg oral capsule (13 sources) Antihistamine Start: 08-04-2023 End: 01-27-2024 hydrOXYzine Pamoate 25 MG Oral Capsule, conventional 01/27/2024 Provider: Ena Fung CNP Start: 08-21-2019 End: 08-21-2019 hydrOXYzine (ATARAX) tablet 50 mg hyoscyamine sulfate 0.125 mg sublingual tablet (11 sources) Start: 08-12-2023 hyoscyamine (L EVSIN/SL) sublingual tablet 125 mcg Start: 08-12-2023 Hyoscyamine Xiao lfate SL (LEVSIN/SL) 0.[address] 1 tablet under the tongue every 4-6 hours as needed (spasm) 120 each 08/12/2023 Active Start: 02-22-2023 hyoscyamine (L EVSIN/SL) sublingual tablet 125 mcg Start: 02-22-2023 End: 08-12-2023 Hyoscyamine Sulfate SL (LEVS IN/SL) 0.[address] 0.25 mg under the tongue every 4-6 hours as needed (Abd pain) 24 each 0 02/22/2023 08/12/2023 Discontinued (Therapy completed) ibuprofen 600 mg oral tablet (12 sources) Nonsteroidal Anti-inflammatory Drug Start: 11-21-2021 take 1 tablet by mouth three times daily as needed for pain ibuprofen (ADVIL;MOTRIN) 600 MG tablet Take 1 tablet by mouth 3 times daily as needed for Pain 30 tablet 0 11/21/2021 Active Start: 01-29-2021 End: 10-07-2021 take 1 tablet by mouth three times daily as needed for pain ibuprofen (ADVIL;MOTRIN) 600 MG tablet Take 1 tablet by mouth 3 times daily as needed for Pain 30 tablet 0 07/08/2021 10/07/2021 Discontinued (Stop Taking at Discharge) Start: 01-29-2021 ibuprofen (ADV IL;MOTRIN) tablet 800 mg insulin lispro 100 unt/ml injectable solution (2 sources) Insulin Analog Start: 04-20-2019 insulin lispro (HUMALOG) injection vial 0-6 Units iopamidol (ISOVUE-370) 76 % injection 18 mL (1 source) Start: 08-28-2020 iopamidol (ISOVUE-370) 76 % injection 18 mL iopamidol (ISOVUE-370) 76 % injection 80 mL (1 source) Start: 08-20-2022 iopamidol (ISOVUE-370) 76 % injection 80 mL 24 hr isosorbide mononitrate 60 mg extended release oral tablet (16 sources) Nitrate Vasodilator Start: 12-07-2023 take 1 tablet by mouth once daily isosorbide mononitrate (IMDUR) 60 MG extended release tablet Indications: Chest pain in adult , SOB (shortness of breath) , Lightheaded , Dizziness , Heart palpitations , ASHD (arteriosclerotic heart disease) , S/P angioplasty with stent , Cryptogenic stroke (HCC) , Primary hypertension , Mixed hyperlipidemia , MATT on CPAP , Implantable loop recorder present Take 1 tablet by mouth daily 90 tablet 3 12/07/2023 Active Start: 01-19-2023 take 1 tablet by troy th once daily isosorbide mononitrate (IMDUR) 30 MG extended release tablet Take 1 tablet by mouth daily 30 tablet 3 01/19/2023 Active Start: 01-18-2023 End: 08-04-2023 take 1 tablet by mouth every twenty-four hours Isosorbide Mononitrate ER 30 MG Oral Tablet Extended Release 24 Hour 01/18/2023 - 08/04/2023 Provider: Start: 12-28-2019 isosorbide mon onitrate (IMDUR) extended release tablet 30 mg 4 ml labetalol hydrochloride 5 mg/ml cartridge (1 source) beta-Adrenergic Christos Start: 10-09-2019 labetalol (NORMODYNE;TRANDATE) injection 10 mg magnesium hydroxide 80 mg/ml oral suspension (2 sources) Start: 12-29-2019 take 30 mL by mouth once daily as needed for constipation 30 mL, Oral, DAILY PRN, Constipation, Starting 12/29/19 at 2022, Recovery(Cath) Start: 04-20-2019 magnesium hydr oxide (MILK OF MAGNESIA) 400 MG/5ML suspension 30 mL meclizine hydrochloride 25 mg oral tablet (2 sources) Antiemetic Start: 08-29-2019 End: 09-08-2019 take 1 tablet by mouth three times daily as needed for dizziness meclizine (ANTIVERT) 25 MG tablet Take 1 tablet by mouth 3 times daily as needed for Dizziness 15 tablet 0 08/29/2019 09/08/2019 Active Start: 08-29-2019 End: 08-29-2019 meclizine (ANTIVERT) tablet 25 mg methylPREDNISolone sodium (SOLU-MEDROL) 200 mg in sodium chloride 0.9 % 100 mL IVPB (1 source) Start: 04-20-2019 End: 04-22-2019 methylPREDNISolone sodium (SOLU-MEDROL) 200 mg in sodium chloride 0.9 % 100 mL IVPB metroNIDAZOLE 250 mg oral tablet (1 source) Nitroimidazole Antimicrobial take 1 tablet by mouth three times daily metroNIDAZOLE (FLAGYL) 250 MG tablet Take 1 tablet by mouth 3 times daily UNSURE OF DOSAGE PRESCRIBED. 0 Active naproxen 250 mg oral tablet (5 sources) Nonsteroidal Anti-inflammatory Drug Start: 01-21-2022 take 1 tablet by mouth twice daily at mealtime naproxen (NAPROSYN) 250 MG tablet Take 1 tablet by mouth 2 times daily (with meals) 20 tablet 0 01/21/2022 Active Start: 04-21-2019 End: 06-08-2019 take 1 tablet by mouth twice daily as needed for headache naproxen (NAPROSYN) 375 MG tablet Take 1 tablet by mouth 2 times daily as needed (headache) 30 tablet 1 04/21/2019 06/08/2019 Discontinued (Therapy completed) ondansetron (ZOFRAN-ODT) disintegrating tablet 4 mg (4 sources) Start: 10-22-2021 ondansetron (Z OFRAN-ODT) disintegrating tablet 4 mg Start: 10-20-2021 ondansetron (Z OFRAN-ODT) disintegrating tablet 4 mg Start: 10-19-2021 ondansetron (Z OFRAN-ODT) disintegrating tablet 4 mg Start: 10-06-2021 ondansetron (Z OFRAN-ODT) disintegrating tablet 4 mg pantoprazole 40 mg delayed release oral tablet (20 sources) Proton Pump Inhibitor Start: 03-09-2022 End: 01-27-2024 take 1 tablet by mouth once daily before breakfast for hypertension pantoprazole (PROTONIX) 40 MG tablet Indications: Stomach pain , Heart palpitations , SOB (shortness of breath) , ASHD (arteriosclerotic heart disease) , S/P angioplasty with stent , Cryptogenic stroke (HCC) , Encounter for loop recorder check , Essential hypertension , Mixed hyperlipidemia , MATT on CPAP Take 1 tablet by mouth every morning (before breakfast) 90 tablet 1 07/27/2022 Active Start: 04-20-2019 End: 10-27-2021 Protonix 40 MG Oral Tablet D elayed Release 10/20/2019 - 05/02/2020 Provider: Ena Fung CNP Start: 12-04-2018 End: 06-08-2019 take 1 tablet by mouth twice daily before mealtime pantoprazole (PROTONIX) 40 MG tablet Take 1 tablet by mouth 2 times daily (before meals) 60 tablet 1 12/04/2018 06/08/2019 Discontinued (Therapy completed) pantoprazole (PROTONIX) 80 mg in sodium chloride 0.9 % 100 mL infusion (1 source) Start: 01-02-2021 pantoprazole (PROTONIX) 80 mg in sodium chloride 0.9 % 100 mL infusion penicillin v potassium 500 mg oral tablet (1 source) Start: 11-22-2020 End: 12-02-2020 take 1 tablet by mouth four times daily penicillin v potassium (VEETID) 500 MG tablet Take 1 tablet by mouth 4 times daily for 10 days 40 tablet 0 11/22/2020 12/02/2020 Active 1000 ml potassium chloride 0.04 meq/ml / sodium chloride 9 mg/ml injection (1 source) Start: 01-03-2021 0.9% NaCl with KCl 40 mEq infusion Promethazine (2 sources) Phenothiazine Start: 12-28-2019 promethazine (PHENERGAN) tablet 12.5 mg Start: 10-09-2019 promethazine ( PHENERGAN) tablet 12.5 mg 12 hr ranolazine 1000 mg extended release oral tablet (13 sources) Anti-anginal Start: 05-18-2023 take 1 tablet by mouth twice daily for dizziness ranolazine (RANEXA) 1000 MG extended release tablet Indications: Heart palpitations , ASHD (arteriosclerotic heart disease) , S/P PTCA (percutaneous transluminal coronary angioplasty) , Cryptogenic stroke (HCC) , Essential hypertension , Mixed hyperlipidemia , MATT on CPAP , Encounter for loop recorder check , SOB (shortness of breath) , Dizziness , Orthostatic hypotension , Hypokalemia TAKE 1 BY MOUTH TWICE DAILY 90 tablet 3 05/18/2023 Active Start: 11-18-2022 End: 02-22-2023 take 1 tablet by mouth twice daily for dizziness ranolazine (RANEXA) 1000 MG extended release tablet Indications: Heart palpitations , ASHD (arteriosclerotic heart disease) , S/P PTCA (percutaneous transluminal coronary angioplasty) , Cryptogenic stroke (HCC) , Essential hypertension , Mixed hyperlipidemia , MATT on CPAP , Encounter for loop recorder check , SOB (shortness of breath) , Dizziness , Orthostatic hypotension , Hypokalemia Take 1 tablet by mouth 2 times daily 90 tablet 3 11/24/2022 Active Start: 10-12-2018 End: 06-08-2019 take 1 tablet by mouth twice daily ranolazine (RANEXA) 500 MG extended release tablet Take 1 tablet by mouth 2 times daily 180 tablet 3 10/12/2018 06/08/2019 Discontinued (Therapy completed) ticagrelor 60 mg oral tablet (20 sources) Start: 10-24-2022 take 1 tablet by mouth twice daily for pain BRILINTA 60 MG TABS tablet Indications: ASHD (arteriosclerotic heart disease) , S/P angioplasty with stent , Cryptogenic stroke (HCC) , Essential hypertension , Mixed hyperlipidemia , SOB (shortness of breath) , MATT on CPAP , Encounter for loop recorder check , Stomach pain , Heart palpitations Take 1 tablet by mouth twice daily 180 tablet 11/02/2023 Active Start: 07-27-2022 End: 08-26-2022 Brilinta 60 MG Oral Tablet 10/24/2022 Provider: Start: 10-23-2021 End: 11-19-2022 Brilinta 90 MG Oral Tablet 10/23/2021 - 11/19/2022 Provider: Start: 04-24-2019 End: 10-10-2019 take 1 tablet by mouth twice daily ticagrelor (BRILINTA) 90 MG TABS tablet Take 1 tablet by mouth 2 times daily for 20 days 40 tablet 0 07/26/2019 Active End: 10-10-2019 take 2 tablets by mouth twice daily, then take [id number] tablet by mouth ticagrelor (BRILINTA) 90 MG TABS tablet Take 90 mg by mouth 2 times daily Samples give 2 boxes Lot [id number] Exp: 02/06 0 10/10/2019 Discontinued (Stop Taking at Discharge) traMADol hydrochloride 50 mg oral tablet (1 source) Opioid Agonist Start: 08-29-2020 traMADol (ULTR AM) tablet 50 mg traZODone hydrochloride 100 mg oral tablet (20 sources) Serotonin Reuptake Inhibitor Start: 01-29-2023 End: 01-27-2024 traZODone HCl 100 MG Oral Tablet 01/27/2024 Provider: Ena Fung CNP Start: 01-30-2022 End: 12-21-2022 traZODone HCl 100 MG Oral Ta blet 01/30/2022 - 12/21/2022 Provider: Ena Fung CNP Start: 10-13-2021 End: 01-30-2022 take 1 tablet by mouth once daily traZODone (DESYREL) 50 MG tablet Take 1 tablet by mouth nightly 10/13/2021 Active Vitamin D (Cholecalciferol) 10 MCG (400 UNIT) Oral Capsule, conventional (3 sources) Start: 01-27-2024 Vitamin D (Cho lecalciferol) 10 MCG (400 UNIT) Oral Capsule, conventional 01/27/2024 Provider: Ena Fung CNP Completed/Discontinued Medications Medication Drug Class(es) Dates Sig (Normalized) Sig (Original) acetaminophen 500 mg oral tablet (20 sources) Start: 12-21-2022 End: 12-21-2022 acetaminophen (TYLENOL) tablet 1,000 mg Start: 08-20-2022 acetaminophen (TYLENOL) tablet 650 mg Start: 11-06-2021 acetaminophen (TYLENOL) tablet 650 mg Start: 10-20-2021 acetaminophen (TYLENOL) tablet 650 mg Start: 10-19-2021 End: 10-20-2021 acetaminophen (TYLENOL) tabl et 1,000 mg Start: 10-06-2021 acetaminophen (TYLENOL) tablet 650 mg Start: 06-19-2021 acetaminophen (TYLENOL) tablet 650 mg Start: 01-02-2021 acetaminophen (TYLENOL) tablet 650 mg Start: 11-22-2020 End: 11-22-2020 acetaminophen (TYLENOL) tabl et 650 mg Start: 08-27-2020 acetaminophen (TYLENOL) tablet 650 mg Start: 12-29-2019 take 650 mg by mouth every four hours as needed for pain, then take 4000 mg by mouth every twenty-four hours as needed for pain 650 mg, Oral, EVERY 4 HOURS PRN, Pain Mild (1-3), Fever, Fever >100.5 F (38 C), Starting 12/29/19 at 2022 Maximum dose of acetaminophen is 4000 mg from all sources in 24 hours. Recovery(Cath) Start: 12-28-2019 acetaminophen (TYLENOL) tablet 650 mg Start: 10-09-2019 acetaminophen (TYLENOL) tablet 650 mg Start: 08-21-2019 End: 08-21-2019 acetaminophen (TYLENOL) tabl et 1,000 mg Start: 04-20-2019 650 mg, Oral, EVERY 4 HOURS PRN, Pain Mild (1-3), Pain Mild (1-3) or Fever greater than 100.5 F (38 C), Starting [facility] 04/20/19 at 0445 Maximum dose of acetaminophen is 4000 mg from all sources in 24 hours. take 2 tablets by mo uth every six hours as needed for pain acetaminophen (TYLENOL) 500 MG tablet Take 2 tablets by mouth every 6 hours as needed for Pain 0 Active End: 08-21-2021 take 2 tablets by mouth every six hours as needed for pain acetaminophen (TYLENOL) 325 MG tablet Take 650 mg by mouth every 6 hours as needed for Pain 0 08/21/2021 Discontinued (Stop Taking at Discharge) acetaminophen 325 mg / butalbital 50 mg / caffeine 40 mg oral tablet (1 source) Barbiturate, Central Nervous System Stimulant, Methylxanthine Start: 06-23-2018 take 1 tablet by mouth every six hours as needed [id number]-[id number]-tvod 50-325-40 mg oral tablet 06/23/2018 take 1 tablet by oral route every 6 hours as needed for migraine, use sparingly acetaminophen 325 mg / oxyCODONE hydrochloride 5 mg oral tablet (20 sources) Opioid Agonist Start: 10-04-2021 End: 10-27-2021 oxyCODONE-Acetaminophen 5-32 5 MG Oral Tablet 10/04/2021 - 10/27/2021 Provider: Start: 08-11-2021 End: 08-16-2021 oxyCODONE-acetaminophen (PER COCET) 5-325 MG per tablet Indications: Right lower quadrant pain Take 1 tablet by mouth every 6 hours as needed for Pain for up to 5 days. Intended supply: 5 days. Take lowest dose possible to manage pain 20 tablet 0 08/11/2021 08/16/2021 Start: 09-04-2020 End: 01-08-2021 Percocet 5-325 MG Oral Table t 09/04/2020 - 01/08/2021 Provider: Ena Fung CNP aluminum & magnesium hydroxide-simethicone (MAALOX) 30 mL, lidocaine viscous hcl (XYLOCAINE) 5 mL (GI COCKTAIL) (1 source) Start: 10-07-2021 End: 10-07-2021 aluminum & magnesium hydroxide-simethicone (MAALOX) 30 mL, lidocaine viscous hcl (XYLOCAINE) 5 mL (GI COCKTAIL) amitriptyline hydrochloride 25 mg oral tablet (3 sources) Tricyclic Antidepressant Start: 04-20-2019 End: 06-08-2019 take 1 tablet by mouth once daily amitriptyline (ELAVIL) 25 MG tablet Take 1 tablet by mouth nightly 30 tablet 2 04/21/2019 06/08/2019 Discontinued (Therapy completed) amoxicillin 875 mg / clavulanate 125 mg oral tablet (3 sources) Penicillin-class Antibacterial Start: 03-05-2023 End: 03-05-2023 amoxicillin-clavulanate (AUGMENTIN) 875-125 MG per tablet 1 tablet Start: 03-05-2023 End: 03-12-2023 take 1 tablet by mouth twice daily amoxicillin-clavulanate (AUGMENTIN) 875-125 MG per tablet Take 1 tablet by mouth 2 times daily for 7 days 14 tablet 0 03/05/2023 03/11/2023 Discontinued (LIST CLEANUP) Aspirin 81 81 MG OR TBEC (15 sources) Start: 08-13-2018 End: 06-17-2020 Aspirin 81 81 MG OR TBEC 08/13/2018 - 06/17/2020 Provider: Manolo Provider azithromycin 500 mg oral tablet (20 sources) Macrolide Antimicrobial Start: 08-20-2023 End: 09-07-2023 Azithromycin 500 MG Oral Tablet 08/20/2023 - 09/07/2023 Provider: Vicky Call CNP Start: 12-19-2021 End: 12-19-2021 azithromycin (ZITHROMAX) tab let 500 mg Start: 12-19-2021 End: 12-24-2021 azithromycin (ZITHROMAX) 250 MG tablet Indications: Acute pharyngitis, unspecified etiology Take 1 tablet by mouth See Admin Instructions for 5 days 500mg on day 1 followed by 250mg on days 2 - 5 6 tablet 0 12/19/2021 12/24/2021 Active Start: 11-23-2019 End: 09-04-2020 Azithromycin 250 MG Oral Tab let 11/23/2019 - 09/04/2020 Provider: Ena Fung CNP busPIRone hydrochloride 7.5 mg oral tablet (20 sources) Start: 12-01-2022 End: 08-04-2023 busPIRone HCl 7.5 MG Oral Tablet 12/01/2022 - 08/04/2023 Provider: Ena Fung CNP Start: 11-19-2022 End: 11-19-2022 busPIRone HCl 7.5 MG Oral Ta blet 11/19/2022 - 11/19/2022 Provider: Ena Fung CNP [id number] F 50-325-40 mg MISC (8 sources) Start: 06-23-2018 End: 06-23-2018 [id number] F 50-325-40 mg MISC 06/23/2018 - 06/23/2018 Provider: [id number] F 50-325-40 mg MISC (20 sources) Start: 06-23-2018 End: 06-17-2020 [id number] F 50-325-40 mg MISC 06/23/2018 - 06/17/2020 Provider: Start: 06-23-2018 End: 06-23-2018 [id number] F 50-325-40 mg MISC 06/23/2018 - 06/23/2018 Provider: CALCIUM 600 600 mg calcium (1,500 MG) MISC (8 sources) Start: 03-23-2017 End: 03-23-2017 CALCIUM 600 600 mg calcium (1,500 MG) MISC 03/23/2017 - 03/23/2017 Provider: CALCIUM 600 600 mg calcium (1,500 MG) MISC (20 sources) Start: 03-23-2017 End: 06-17-2020 CALCIUM 600 600 mg calcium (1,500 MG) [facility] [place] - 06/17/2020 Provider: Start: 03-23-2017 End: 03-23-2017 CALCIUM 600 600 mg calcium ( 1,500 MG) [facility] [place] - 03/23/2017 Provider: calcium carbonate 1500 mg oral tablet (7 sources) Start: 03-23-2017 End: 10-15-2017 take 1 tablet by mouth twice daily Calcium 600 600 mg calcium (1,500 mg) oral tablet 03/23/2017 10/15/2017 take 1 tablet by oral route twice daily clopidogrel 75 mg oral tablet (20 sources) [id number] Platelet Inhibitor Start: 02-23-2019 End: 10-27-2021 Plavix 75 MG Oral Tablet 10/20/2019 - 10/13/2021 Provider: clotrimazole 10 mg/ml topical cream (1 source) Azole Antifungal Start: 01-13-2024 End: 01-20-2024 clotrimazole (LOTRIMIN AF) 1 % cream Indications: Ringworm Apply topically 2 times daily for two weeks 60 g 1 01/13/2024 01/20/2024 cyclobenzaprine hydrochloride 10 mg oral tablet (20 sources) Muscle Relaxant Start: 12-05-2021 End: 02-08-2024 Cyclobenzaprine HCl 10 MG Oral Tablet 01/26/2022 - 02/01/2023 Provider: Ena Fung CNP Start: 11-21-2021 End: 12-01-2021 Cyclobenzaprine HCl 10 MG Or al Tablet 11/22/2021 - 11/26/2021 Provider: take 1 tablet by troy twice daily as needed for muscle spasms cyclobenzaprine (FLEXERIL) 10 MG tablet Take 1 tablet by mouth 2 times daily as needed for Muscle spasms Active dicyclomine hydrochloride 10 mg oral capsule (20 sources) Anticholinergic Start: 01-02-2021 End: 10-13-2021 Dicyclomine HCl 10 MG Oral Capsule 01/04/2021 - 10/13/2021 Provider: Start: 04-26-2018 take 1 capsule by mo [facility] three times daily as needed for pain dicyclomine 10 mg oral capsule 04/26/2018 take 1 capsule (10 mg) by oral route 3 times per day as needed for bowel spasms/pain Start: 04-26-2018 End: 06-17-2020 DICYCLOMINE 10 mg MISC 04/26 - 06/17/2020 Provider: Start: 04-26-2018 End: 04-26-2018 DICYCLOMINE 10 mg MISC 04/26 - 04/26/2018 Provider: 1 ml diphenhydrAMINE hydrochloride 50 mg/ml cartridge (2 sources) Histamine-1 Receptor Antagonist Start: 06-06-2021 End: 06-06-2021 diphenhydrAMINE (BENADRYL) injection 25 mg Start: 04-20-2019 diphenhydrAMIN E (BENADRYL) injection 25 mg Ensure Oral Liquid (not specified) (19 sources) Start: 11-26-2021 End: 01-30-2022 Ensure Oral Liquid (not specified) 11/26/2021 - 01/30/2022 Provider: Start: 11-26-2021 Ensure Oral Li quid (not specified) 11/26/2021 Provider: famotidine (PEPCID) 20 mg in sodium chloride (PF) 0.9 % 10 mL injection (2 sources) Start: 08-12-2023 End: 08-12-2023 famotidine (PEPCID) 20 mg in sodium chloride (PF) 0.9 % 10 mL injection Start: 07-28-2022 End: 07-28-2022 famotidine (PEPCID) 20 mg in sodium chloride (PF) 0.9 % 10 mL injection 2 ml fentaNYL 0.05 mg/ml injection (4 sources) Opioid Agonist Start: 10-22-2021 End: 10-22-2021 fentaNYL (SUBLIMAZE) injection Start: 08-27-2020 End: 08-29-2020 fentaNYL (SUBLIMAZE) injecti on 25 mcg Fish Oil Concentrate (7 sources) Start: 10-05-2017 take 1 capsule by mouth twice daily Fish Oil Concentrate 1,000 mg oral capsule 10/05/2017 take 1 capsule by oral route twice daily Start: 10-05-2017 take 1 capsule by mo ut twice daily Fish Oil Concentrate 1,000 mg oral capsule 10/05/2017 take 1 capsule by oral route twice daily FISH OIL CONCENTRATE 1,000 M G MISC (8 sources) Start: 10-05-2017 End: 10-05-2017 FISH OIL CONCENTRATE 1,000 M G MISC 10/05/2017 - 10/05/2017 Provider: FISH OIL CONCENTRATE 1,000 M G MISC (20 sources) Start: 10-05-2017 End: 06-17-2020 FISH OIL CONCENTRATE 1,000 M G MISC 10/05/2017 - 06/17/2020 Provider: Start: 10-05-2017 End: 10-05-2017 FISH OIL CONCENTRATE 1,000 M G MISC 10/05/2017 - 10/05/2017 Provider: fluticasone propionate 0.05 mg/actuat metered dose nasal spray (20 sources) Corticosteroid Start: 10-07-2021 take 1 spray(s) nasal route once daily 1 spray, Each Nostril, DAILY, First dose on Wed10/07/21 at 0900 Start: 06-23-2021 End: 09-07-2023 Fluticasone Propionate 50 MC G/ACT Nasal Suspension 04/13/2022 - 09/07/2023 Provider: Ena Fung CNP Start: 03-20-2021 End: 05-28-2021 Fluticasone Propionate 50 MC G/ACT Nasal Suspension 03/20/2021 - 05/28/2021 Provider: Veronica Renteria CNP take 1 spray(s) nasa l route once daily fluticasone (FLONASE) 50 MCG/ACT nasal spray 1 spray by Each Nostril route daily Active 250 ml glucose 50 mg/ml / so dium chloride 4.5 mg/ml injection (1 source) Start: 01-01-2021 End: 01-03-2021 dextrose 5 % and 0.45 % sodi um chloride infusion HM Vitamin D 10 MCG (400 UNI T) Oral Tablet (20 sources) Start: 10-27-2021 End: 11-26-2021 HM Vitamin D 10 MCG (400 UNI T) Oral Tablet 10/27/2021 - 11/26/2021 Provider: Start: 10-27-2021 HM Vitamin D 1 0 MCG (400 UNIT) Oral Tablet 10/27/2021 Provider: hydroCHLOROthiazide 50 mg oral tablet (20 sources) Thiazide Diuretic Start: 10-20-2019 End: 09-04-2020 hydroCHLOROthiazide 50 MG Oral Tablet 10/20/2019 - 09/04/2020 Provider: Ena Fung CNP hydroCHLOROthiazide 12.5 mg / lisinopril 10 mg oral tablet (20 sources) Thiazide Diuretic, Angiotensin Converting Enzyme Inhibitor Start: 04-26-2018 take 1 tablet by mouth once daily lisinopril-hydrochlorot hiazide 10-12.5 mg oral tablet 04/26/2018 take 1 tablet by oral route once daily (has good rx card) Start: 03-23-2017 take 1 tablet by troy th once daily lisinopril-hydrochlorothiazide 10-12.5 m g oral tablet 03/23/2017 take 1 tablet by oral route once daily Start: 03-23-2017 End: 06-17-2020 Lisinopril-hydroCHLOROthiazi de 10-12.5 MG TABS 04/26/2018 - 06/17/2020 Provider: iodixanol (VISIPAQUE) injection 100 mL (1 source) Start: 10-22-2021 End: 10-22-2021 iodixanol (VISIPAQUE) injection 100 mL Iopamidol (1 source) Radiographic Contrast Agent Start: 04-19-2019 End: 04-19-2019 iopamidol (ISOVUE-370) 76 % injection 75 mL iopamidol (ISOVUE-370) 76 % injection 40 mL (1 source) Start: 06-19-2021 End: 06-19-2021 iopamidol (ISOVUE-370) 76 % injection 40 mL iopamidol (ISOVUE-370) 76 % injection 45 mL (1 source) Start: 11-06-2021 End: 11-06-2021 iopamidol (ISOVUE-370) 76 % injection 45 mL iopamidol (ISOVUE-370) 76 % injection 75 mL (8 sources) Start: 08-12-2023 End: 08-12-2023 iopamidol (ISOVUE-370) 76 % injection 75 mL Start: 02-22-2023 End: 02-22-2023 iopamidol (ISOVUE-370) 76 % injection 75 mL Start: 07-28-2022 End: 07-28-2022 iopamidol (ISOVUE-370) 76 % injection 75 mL Start: 10-19-2021 End: 04-03-2022 iopamidol (ISOVUE-370) 76 % injection 75 mL Start: 01-01-2021 End: 01-01-2021 iopamidol (ISOVUE-370) 76 % injection 75 mL Start: 11-22-2020 End: 11-22-2020 iopamidol (ISOVUE-370) 76 % injection 75 mL Start: 08-28-2020 End: 08-28-2020 iopamidol (ISOVUE-370) 76 % injection 75 mL Start: 08-27-2020 End: 08-27-2020 iopamidol (ISOVUE-370) 76 % injection 75 mL ioversol (OPTIRAY) 74 % injection 75 mL (1 source) Start: 04-19-2019 End: 04-19-2019 ioversol (OPTIRAY) 74 % injection 75 mL 1 ml ketorolac tromethamine 30 mg/ml cartridge (11 sources) Nonsteroidal Anti-inflammatory Drug, Cyclooxygenase Inhibitor Start: 08-12-2023 End: 08-12-2023 ketorolac (TORADOL) injection 30 mg Start: 02-22-2023 End: 02-22-2023 ketorolac (TORADOL) injectio n 30 mg Start: 11-21-2021 End: 11-21-2021 ketorolac (TORADOL) injectio n 30 mg Start: 07-08-2021 End: 07-08-2021 ketorolac (TORADOL) injectio n 60 mg Start: 06-06-2021 End: 06-06-2021 ketorolac (TORADOL) injectio n 30 mg Start: 05-22-2021 End: 05-22-2021 ketorolac (TORADOL) injectio n 60 mg Start: 08-28-2020 End: 09-02-2020 ketorolac (TORADOL) injectio n 15 mg Start: 08-27-2020 End: 08-27-2020 ketorolac (TORADOL) injectio n 15 mg Start: 06-08-2019 End: 06-08-2019 ketorolac (TORADOL) injectio n 15 mg Start: 04-20-2019 ketorolac (TOR ADOL) injection 30 mg Start: 04-19-2019 End: 04-19-2019 ketorolac (TORADOL) injectio n 15 mg 150 ml levoFLOXacin 5 mg/ml injection (1 source) Quinolone Antimicrobial Start: 03-11-2023 End: 03-11-2023 levoFLOXacin (LEVAQUIN) 750 MG/150ML infusion 750 mg loratadine 10 mg oral tablet (20 sources) Start: 11-23-2019 End: 09-04-2020 Claritin 10 MG Oral Tablet 11/23/2019 - 09/04/2020 Provider: Ena Fung CNP 1 ml LORazepam 2 mg/ml injection (2 sources) Benzodiazepine Start: 10-09-2019 End: 10-09-2019 LORazepam (ATIVAN) injection 1 mg Start: 04-20-2019 End: 04-20-2019 LORazepam (ATIVAN) injection 0.5 mg 50 ml magnesium sulfate 40 mg/ml injection (1 source) Start: 10-19-2021 End: 10-20-2021 magnesium sulfate 2000 mg in 50 mL IVPB premix methylPREDNISolone 125 mg injection (1 source) Corticosteroid Start: 04-19-2019 End: 04-19-2019 methylPREDNISolone sodium (SOLU-MEDROL) injection 125 mg 24 hr metoprolol succinate 50 mg extended release oral tablet (20 sources) beta-Adrenergic Christos Start: 09-14-2022 End: 08-04-2023 take 1 tablet by mouth every twenty-fou r hours Metoprolol Succinate ER 50 MG Oral Tablet Extended Release 24 Hour 09/14/2022 - 08/04/2023 Provider: Start: 09-14-2022 take 1 tablet by troy th once daily metoprolol succinate (TOPROL XL) 50 MG extended release tablet Indications: Dizziness , Mixed hyperlipidemia , Essential hypertension , Coronary artery disease involving ute coronary artery of ute heart without angina pectoris , S/P PTCA (percutaneous transluminal coronary angioplasty) Take 1 tablet by mouth once daily 90 tablet 3 09/14/2022 Active Start: 08-12-2021 take 1 tablet by troy th once daily metoprolol succinate (TOPROL XL) 50 MG extended release tablet Indications: Dizziness , Mixed hyperlipidemia , Essential hypertension , Coronary artery disease involving ute coronary artery of ute heart without angina pectoris , S/P PTCA (percutaneous transluminal coronary angioplasty) Take 1 tablet by mouth once daily 90 tablet 3 08/12/2021 Active Start: 08-05-2020 take 1 tablet by troy th once daily metoprolol succinate (TOPROL XL) 50 MG extended release tablet Indications: Dizziness , Mixed hyperlipidemia , Essential hypertension , Coronary artery disease involving ute coronary artery of ute heart without angina pectoris , S/P PTCA (percutaneous transluminal coronary angioplasty) Take 1 tablet by mouth once daily 90 tablet 3 08/05/2020 Active Start: 06-22-2019 take 1 tablet by troy th once daily metoprolol succinate (TOPROL XL) 50 MG extended release tablet Indications: Dizziness , Mixed hyperlipidemia , Essential hypertension , Coronary artery disease involving ute coronary artery of ute heart without angina pectoris , S/P PTCA (percutaneous transluminal coronary angioplasty) Take 1 tablet by mouth daily 90 tablet 3 06/22/2019 Active Start: 08-13-2018 End: 11-19-2022 take 1 tablet by mouth every twenty-four hours Toprol XL 25 MG Oral Tablet Extended Release 24 Hour 10/20/2019 - 11/19/2022 Provider: Start: 08-13-2018 End: 06-17-2020 Metoprolol Tartrate 25 MG OR TABS 08/13/2018 - 06/17/2020 Provider: Conversion Provider Start: 07-11-2018 take 1 tablet by troy th once daily metoprolol succinate (TOPROL XL) 25 MG extended release tablet Indications: Dizziness , Mixed hyperlipidemia , Essential hypertension Take 1 tablet by mouth daily 90 tablet 3 07/11/2018 Active take 1 tablet by troy th once daily Toprol XL 25 mg oral tablet extended release 24 hr take 1 tablet (25 mg) by oral route once daily End: 01-20-2018 take 1 tablet by mouth twice daily metoprolol tartrate 25 mg oral tablet 01/20/2018 take 1 tablet (25 mg) by oral route 2 times per day 2 ml midazolam 1 mg/ml injection (1 source) Benzodiazepine Start: 10-22-2021 End: 10-22-2021 midazolam PF (VERSED) injection 1 ml morphine sulfate 2 mg/ml cartridge (6 sources) Opioid Agonist Start: 12-23-2023 End: 12-23-2023 morphine (PF) injection 2 mg Start: 08-12-2023 End: 08-12-2023 morphine (PF) injection 2 mg Start: 08-12-2023 End: 08-12-2023 morphine injection 4 mg Start: 02-22-2023 End: 02-22-2023 morphine injection 4 mg Start: 08-20-2022 End: 08-20-2022 morphine (PF) injection 2 mg Start: 01-01-2021 End: 01-01-2021 morphine (PF) injection 2 mg 24 hr nicotine 0.875 mg/hr transdermal system (20 sources) Cholinergic Nicotinic Agonist Start: 11-12-2017 nicotine 21 mg/24 hr transdermal patch 24 hour 11/12/2017 apply 1 patch (21 mg) by transdermal route once daily and remove at bedtime Start: 11-12-2017 End: 06-17-2020 NICOTINE 21 MG/24 HR [facility] [place] Provider: Start: 11-12-2017 End: 11-12-2017 NICOTINE 21 MG/24 HR [facility] [place]/12/2017 Provider: nitroglycerin 0.4 mg sublingual tablet (20 sources) Nitrate Vasodilator Start: 01-26-2022 0.4 mg, Xiao bLINGual, EVERY 5 MIN PRN, Starting on 03/12/24 at 1229, Until Discontinued, Chest pain, Place 1 tablet under tongue upon chest pain, wait 5 minutes and may repeat up to 3 doses in 15 minutes. Do not crush or break. Start: 10-13-2021 Nitroglycerin 0.4 MG Sublingual Tablet Sublingual 10/13/2021 Provider: Start: 01-09-2021 nitroGLYCERIN (NITROSTAT) 0.[address] 1 tablet under the tongue every 5 minutes as needed for Chest pain up to max of 3 total doses. If no relief after 1 dose, call 911. 25 tablet 3 01/09/2021 Active Start: 12-28-2019 nitroGLYCERIN (NITROSTAT) 0.[address] 1 tablet under the tongue every 5 minutes as needed for Chest pain up to max of 3 total doses. If no relief after 1 dose, call 911. 25 tablet 3 12/28/2019 Active Start: 10-22-2018 0.4 mg, [place] gual, EVERY 5 MIN PRN, Chest pain, Starting 10/09/[address] 1 tablet under tongue upon chest pain, wait 5 minutes and may repeat up to 3 doses in 15 minutes. Do not crush or break. Start: 06-23-2018 End: 06-17-2020 Nitroglycerin 0.4 MG SL SUBL 06/23/2018 - 06/17/2020 Provider: omeprazole 40 mg delayed release oral capsule (20 sources) Proton Pump Inhibitor Start: 03-23-2017 End: 06-17-2020 Omeprazole 40 MG OR CPDR 03/23/2017 - 06/17/2020 Provider: 2 ml ondansetron 2 mg/ml injection (20 sources) Serotonin-3 Receptor Antagonist Start: 03-12-2024 End: 03-12-2024 4 mg, IntraVENous, ONCE, 1 dose, On 03/12/24 at 1315 Start: 08-20-2023 End: 09-07-2023 Zofran 4 MG Oral Tablet 08/2023 - 09/07/2023 Provider: Start: 08-12-2023 End: 08-12-2023 ondansetron (ZOFRAN) injecti on 4 mg Start: 02-22-2023 End: 02-22-2023 ondansetron (ZOFRAN) injecti on 4 mg Start: 08-20-2022 End: 08-20-2022 ondansetron (ZOFRAN) injecti on 4 mg Start: 07-28-2022 End: 07-28-2022 ondansetron (ZOFRAN) injecti on 4 mg Start: 06-15-2022 End: 12-21-2022 Ondansetron 4 MG Oral Tablet Disintegrating 06/15/2022 - 12/21/2022 Provider: Start: 06-15-2022 take 1 tablet by troy th every eight hours as needed for nausea ondansetron (ZOFRAN ODT) 4 MG disintegrating tablet Take 1 tablet by mouth every 8 hours as needed for Nausea or Vomiting 12 tablet 0 06/15/2022 Active Start: 10-06-2021 End: 10-06-2021 ondansetron (ZOFRAN) injecti on 4 mg Start: 01-01-2021 End: 01-01-2021 4 mg, Intravenous, EVERY 6 H OURS PRN, Nausea, Vomiting, Starting on Vivian 01/02/21 at 1132 Start: 09-04-2020 End: 04-13-2022 Ondansetron 4 MG Oral Tablet Disintegrating 09/04/2020 - 04/13/2022 Provider: Ena Fung CNP Start: 08-27-2020 End: 08-27-2020 4 mg, Intravenous, EVERY 6 H OURS PRN, Nausea, Vomiting, Starting Wed08/27/20 at 1238 Start: 08-27-2020 End: 08-27-2020 ondansetron (ZOFRAN) injecti on 4 mg Start: 06-08-2019 End: 06-08-2019 ondansetron (ZOFRAN) injecti on 4 mg Start: 06-08-2019 End: 10-10-2019 take 1 tablet by mouth every eight hours as needed for nausea ondansetron (ZOFRAN ODT) 4 MG disintegrating tablet Take 1 tablet by mouth every 8 hours as needed for Nausea 4 tablet 0 06/08/2019 Active Start: 04-19-2019 End: 04-19-2019 ondansetron (ZOFRAN) injecti on 4 mg 2 ml orphenadrine citrate 30 mg/ml injection (1 source) Muscle Relaxant Start: 01-29-2021 End: 01-29-2021 orphenadrine (NORFLEX) injection 60 mg oseltamivir 75 mg oral capsule (6 sources) Neuraminidase Inhibitor Start: 09-07-2023 End: 01-27-2024 Tamiflu 75 MG Oral Capsule 09/07/2023 - 01/27/2024 Provider: Ena Fung CNP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 Receptionist: Jordon Tai MD Basophils/100 WBC (Bld) 1 % Normal 0-2 [facility] Comment on above: Performed By: #### C DP, LIP, CP, TROPI #### [address] [place], [place] 2372483 Telephone Operator Receptionist: Jordon Tai MD Eosinophils (Bld) [#/Vol] 0.14 10*3/uL Normal 0.00-0.44 [facility] Comment on above: Performed By: #### C DP, LIP, CP, TROPI #### [address] [place] [address] Telephone Operator Receptionist: Jordon Tai MD Eosinophils/100 WBC (Bld) 2 % Normal 1-4 [facility] Comment on above: Performed By: #### C DP, LIP, CP, TROPI #### [address] [place], [facility]83 Telephone Operator Receptionist: Jordon Tai MD Erythrocyte distribution width (RBC) [Ratio] 12.2 % Normal 11.8-14.4 [facility] Comment on above: Performed By: #### C DP, LIP, CP, TROPI #### [address] [place], [facility]83 Telephone Operator Receptionist: Jordon Tai MD Hematocrit (Bld) [Volume fraction] 35.1 % Low 36.3-47.1 [facility] Comment on above: Performed By: #### C DP, LIP, CP, TROPI #### [address] [place] [address] Telephone Operator Receptionist: Jordon Tai MD Hemoglobin (Bld) [Mass/Vol] 12.7 g/dL Normal 11.9-15.1 [facility] Comment on above: Performed By: #### C DP, LIP, CP, TROPI #### [address] [place] [address] Telephone Operator Receptionist: Jordon Tai MD Immature granulocytes/100 WBC (Bld) 0 % Normal 0 [facility] Comment on above: Performed By: #### C DP, LIP, CP, TROPI #### [facility] [address] [place] [id number] Telephone Operator Receptionist: Jordon Tai MD Lymphocytes (Bld) [#/Vol] 2.41 10*3/uL Normal 1.10-3.70 [facility] Comment on above: Performed By: #### C DP, LIP, CP, TROPI #### [address] [place] [address] Telephone Operator Receptionist: Jordon Tai MD Lymphocytes/100 WBC (Bld) 30 % Normal 24-43 [facility] Comment on above: Performed By: #### C DP, LIP, CP, TROPI #### [address] [place], [place] [address] Telephone Operator Receptionist: Jordon Tai MD MCH (RBC) [Entitic mass] 29.7 pg Normal 25.2-33.5 [facility] Comment on above: Performed By: #### C DP, LIP, CP, TROPI #### [address] [place] [address] Telephone Operator Receptionist: Jordon Tai MD MCHC (RBC) [Mass/Vol] 36.2 g/dL High 28.4-34.8 [facility] Comment on above: Performed By: #### C DP, LIP, CP, TROPI #### [address] [place] [id number] Telephone Operator Receptionist: Jordon Tai MD MCV (RBC) [Entitic vol] 82.0 fL Low 82.6-102.9 [facility] Comment on above: Performed By: #### C DP, LIP, CP, TROPI #### [address] [place] [id number] Telephone Operator Receptionist: Jordon Tai MD Monocytes (Bld) [#/Vol] 0.60 10*3/uL Normal 0.10-1.20 [facility] Comment on above: Performed By: #### C DP, LIP, CP, TROPI #### [facility] [address] [place], [place] [id number] Telephone Operator Receptionist: Jordon Tai MD Monocytes/100 WBC (Bld) 8 % Normal 3-12 [facility] Comment on above: Performed By: #### C DP, LIP, CP, TROPI #### [address] [place], [place] [address] Telephone Operator Receptionist: Jordon Tai MD Neutrophil (Seg) 59 % Normal 36-65 [facility] Comment on above: Performed By: #### C DP, LIP, CP, TROPI #### [address] [place], [facility]83 Telephone Operator Receptionist: Jordon Tai MD NRBC Automated 0.0 per 100 WBC Normal 0.0 [facility] Comment on above: Performed By: #### C DP, LIP, CP, TROPI #### [address] [place], [facility]83 Telephone Operator Receptionist: Jordon Tai MD Platelet mean volume (Bld) [Entitic vol] 10.0 fL Normal 8.1-13.5 [facility] Comment on above: Performed By: #### C DP, LIP, CP, TROPI #### [address] [place], [place] 1240083 Telephone Operator Receptionist: Jordon Tai MD Platelets (Bld) [#/Vol] 293 10*3/uL Normal 138-453 [facility] Comment on above: Performed By: #### C DP, LIP, CP, TROPI #### [address] [place] [address] Telephone Operator Receptionist: Jordon Tai MD RBC (Bld) [#/Vol] 4.28 10*6/uL Normal 3.95-5.11 [facility] Comment on above: Performed By: #### C DP, LIP, CP, TROPI #### [facility] [address] [place] [address] Telephone Operator Receptionist: Jordon Tai MD WBC (Bld) [#/Vol] 8.0 10*3/uL Normal 3.5-11.3 [facility] Comment on above: Performed By: #### C DP, LIP, CP, TROPI #### [facility] [address] [place] [address] Telephone Operator Receptionist: Jordon Tai MD D-Dimer Teston 01-25-2024 D-Dimer Test 0.40 ug/mL FEU Normal 0.00-0.59 [facility] Comment on above: Result Comment: When combined with a low clinical probability, a D dimer value of <0.50 ug/mL FEU is considered negative for DVT and PE (negative predictive value of 98%, sensitivity of 97%). If this test is not being used to help rule out DVT and PE, then the following reference range should be utilized: 0.00 - 0.59 ug/mL FEU. The D-Dimer assay is intended for use as an aid in the diagnosis of venous thromboembolism (DVT and PE) and the results should be interpreted in conjunction with the patient's medical history, clinical presentation, and other findings. Elevated levels of D-dimer activity can be seen in any state of coagulation activation and is not recommended in patients with therapeutic dose anticoagulant therapy for >24 hours, fibrinolytic therapy within the previous 7 days, trauma or surgery within the previous 4 weeks, disseminated malignancies, aortic aneurysm, sepsis, severe infections, pneumonia, severe skin infections, liver cirrhosis, advanced age, coronary disease, diabetes, and . A very low percentage of patients with DVT may yield D-dimer results below the cutoff of 0.5 ug/mL FEU. This is known to be more prevalent in patients with distal DVT. Performed By: #### C DP, LIP, CP, TROPI #### [facility] [address] [place], [place] [id number] Telephone Operator Receptionist: Jordon Tai MD Magnesiumon 01-25-2024 Magnesium [Mass/Vol] 1.9 mg/dL Normal 1.6-2.6 [facility] Comment on above: Performed By: #### C DP, LIP, CP, TROPI #### [facility] [address] [place] [id number] Telephone Operator Receptionist: Jordon Tai MD Troponinon 01-25-2024 Troponin, High Sens <6 Normal 0-14 [facility] Comment on above: Result Comment: High Sensitivity Troponin values cannot be compared with other Troponin methodologies. Performed By: #### C DP, LIP, CP, TROPI #### [facility] [address] [place] [id number] Telephone Operator Receptionist: Jordon Tai MD XR CHEST (2 VW)on 01-25-2024 XR CHEST (2 VW) EXAMINATION: TWO XRAY VIEWS OF THE CHEST 01/25/2024 1:49 pm COMPARISON: 12/23/2023 HISTORY: ORDERING SYSTEM PROVIDED HISTORY: chest pain TECHNOLOGIST PROVIDED HISTORY: chest pain FINDINGS: The lungs are without acute focal process. There is no effusion or pneumothorax. The cardiomediastinal silhouette is stable. The osseous structures are stable. IMPRESSION: No acute process. Interpreted by: Janae Espinoza MD Signed by: Janae Espinoza MD 01/25/24 Final result Normal [facility] CBC with Auto Differentialon 12-23-2023 Basophils (Bld) [#/Vol] 0.06 10*3/uL [facility] Basophils/100 WBC (Bld) 1 % 0 - 2 % [facility] Eosinophils (Bld) [#/Vol] 0.09 10*3/uL [facility] Eosinophils/100 WBC (Bld) 1 % 1 - 4 % [facility] Erythrocyte distribution width (RBC) [Ratio] 11.8 % 11.8 - 14.4 % [facility] Hematocrit (Bld) [Volume fraction] 40.0 % 36.3 - 47.1 % [facility] Hemoglobin (Bld) [Mass/Vol] 14.3 g/dL 11.9 - 15.1 g/dL [facility] Immature granulocytes (Bld) [#/Vol] [facility] Immature granulocytes/100 WBC (Bld) 0 % 0 [facility] Interpretation and review of laboratory results Abnormal [facility] Lymphocytes/100 WBC (Bld) 30 % 24 - 43 % [facility] Lymphocytes/100 WBC (Bld) 2.75 % [facility] MCH (RBC) [Entitic mass] 29.9 pg 25.2 - 33.5 pg [facility] MCHC (RBC) [Mass/Vol] 35.8 g/dL High 28.4 - 34.8 g/dL [facility] MCV (RBC) [Entitic vol] 83.5 fL 82.6 - 102.9 fL [facility] Monocytes/100 WBC (Bld) 6 % 3 - 12 % [facility] Monocytes/100 WBC (Bld) 0.58 % [facility] Neutrophils/100 WBC (Bld) 62 % 36 - 65 % [facility] Nucleated RBC/100 WBC (Bld) [Ratio] 0.0 % 0.0 per 100 WBC [facility] Platelet mean volume (Bld) [Entitic vol] 9.7 fL 8.1 - 13.5 fL [facility] Platelets (Bld) [#/Vol] 311 10*3/uL [facility] RBC (Bld) [#/Vol] 4.79 10*6/uL 3.95 - 5.11 m/uL [facility] Segmented neutrophils/100 WBC (Bld) 5.81 % [facility] WBC other (Bld) [#/Vol] 9.[address] [facility] CBC with Diffon 12-23-2023 Abs. Basophil 0.06 k/uL Normal 0.00-0.20 [facility] Comment on above: Performed By: #### C DP, LIP, CP, TROPI #### [address] [place], [place] [address] Telephone Operator Receptionist: Jordon Tai MD Abs.Imm.Granulocyte <0.03 Normal 0.00-0.30 [facility] Comment on above: Performed By: #### C DP, LIP, CP, TROPI #### [address] [place], [place] [address] Telephone Operator Receptionist: Jordon Tai MD Abs.Neutrophil (Seg) 5.81 k/uL Normal 1.50-8.10 [facility] Comment on above: Performed By: #### C DP, LIP, CP, TROPI #### [address] [place], [place] [address] Telephone Operator Receptionist: Jordon Tai MD Basophils/100 WBC (Bld) 1 % Normal 0-2 [facility] Comment on above: Performed By: #### C DP, LIP, CP, TROPI #### [address] [place], [place] [address] Telephone Operator Receptionist: Jordon Tai MD Eosinophils (Bld) [#/Vol] 0.09 10*3/uL Normal 0.00-0.44 [facility] Comment on above: Performed By: #### C DP, LIP, CP, TROPI #### [address] [place], [place] [address] Telephone Operator Receptionist: Jordon Tai MD Eosinophils/100 WBC (Bld) 1 % Normal 1-4 [facility] Comment on above: Performed By: #### C DP, LIP, CP, TROPI #### [address] [place], [place] [address] Telephone Operator Receptionist: Jordon Tai MD Erythrocyte distribution width (RBC) [Ratio] 11.8 % Normal 11.8-14.4 [facility] Comment on above: Performed By: #### C DP, LIP, CP, TROPI #### [address] [place], [facility]83 Telephone Operator Receptionist: Jordon Tai MD Hematocrit (Bld) [Volume fraction] 40.0 % Normal 36.3-47.1 [facility] Comment on above: Performed By: #### C DP, LIP, CP, TROPI #### [address] [place], [facility]83 Telephone Operator Receptionist: Jordon Tai MD Hemoglobin (Bld) [Mass/Vol] 14.3 g/dL Normal 11.9-15.1 [facility] Comment on above: Performed By: #### C DP, LIP, CP, TROPI #### [address] [place], [facility]83 Telephone Operator Receptionist: Jordon Tai MD Immature granulocytes/100 WBC (Bld) 0 % Normal 0 [facility] Comment on above: Performed By: #### C DP, LIP, CP, TROPI #### [address] [place], [facility]83 Telephone Operator Receptionist: Jordon Tai MD Lymphocytes (Bld) [#/Vol] 2.75 10*3/uL Normal 1.10-3.70 [facility] Comment on above: Performed By: #### C DP, LIP, CP, TROPI #### [address] [place], [place] [address] Telephone Operator Receptionist: Jordon Tai MD Lymphocytes/100 WBC (Bld) 30 % Normal 24-43 [facility] Comment on above: Performed By: #### C DP, LIP, CP, TROPI #### [address] [place] [id number] Telephone Operator Receptionist: Jordon Tai MD MCH (RBC) [Entitic mass] 29.9 pg Normal 25.2-33.5 [facility] Comment on above: Performed By: #### C DP, LIP, CP, TROPI #### [address] [place], [facility]83 Telephone Operator Receptionist: Jordon Tai MD MCHC (RBC) [Mass/Vol] 35.8 g/dL High 28.4-34.8 [facility] Comment on above: Performed By: #### C DP, LIP, CP, TROPI #### [address] [place], [place] [address] Telephone Operator Receptionist: Jordon Tai MD MCV (RBC) [Entitic vol] 83.5 fL Normal 82.6-102.9 [facility] Comment on above: Performed By: #### C DP, LIP, CP, TROPI #### [address] [place], [place] [address] Telephone Operator Receptionist: Jordon Tai MD Monocytes (Bld) [#/Vol] 0.58 10*3/uL Normal 0.10-1.20 [facility] Comment on above: Performed By: #### C DP, LIP, CP, TROPI #### [address] [place], [place] [address] Telephone Operator Receptionist: Jordon Tai MD Monocytes/100 WBC (Bld) 6 % Normal 3-12 M [facility] Comment on above: Performed By: #### C DP, LIP, CP, TROPI #### [address] [place], [place] [address] Telephone Operator Receptionist: Jordon Tai MD Neutrophil (Seg) 62 % Normal 36-65 [facility] Comment on above: Performed By: #### C DP, LIP, CP, TROPI #### [address] [place], [facility]83 Telephone Operator Receptionist: Jordon Tai MD NRBC Automated 0.0 per 100 WBC Normal 0.0 [facility] Comment on above: Performed By: #### C DP, LIP, CP, TROPI #### [address] [place], [place] [id number] Telephone Operator Receptionist: Jordon Tai MD Platelet mean volume (Bld) [Entitic vol] 9.7 fL Normal 8.1-13.5 [facility] Comment on above: Performed By: #### C DP, LIP, CP, TROPI #### [facility] [address] [place], [place] 3181683 Telephone Operator Receptionist: Jordon Tai MD Platelets (Bld) [#/Vol] 311 10*3/uL Normal 138-453 [facility] Comment on above: Performed By: #### C DP, LIP, CP, TROPI #### [address] [place], [place] [id number] Telephone Operator Receptionist: Jordon Tai MD RBC (Bld) [#/Vol] 4.79 10*6/uL Normal 3.95-5.11 [facility] Comment on above: Performed By: #### C DP, LIP, CP, TROPI #### [address] [place], [place] 1535383 Telephone Operator Receptionist: Jordon Tai MD WBC (Bld) [#/Vol] 9.3 10*3/uL Normal 3.5-11.3 [facility] Comment on above: Performed By: #### C DP, LIP, CP, TROPI #### [address] [place], [place] [id number] Telephone Operator Receptionist: Jordon Tai MD Comp Metabolic Pr/rfx MGon 0 6- Potassium [Moles/Vol] 3.2 mmol/L Low 3.7-5.3 [facility] Comment on above: Performed By: #### C DP, LIP, CP, TROPI #### [address] [place], [place] 8672783 Telephone Operator Receptionist: Jordon Tai MD Albumin [Mass/Vol] 4.6 g/dL Normal 3.5-5.2 [facility] Comment on above: Performed By: #### C DP, LIP, CP, TROPI #### [facility] [address] [place], [place] [id number] Telephone Operator Receptionist: Jordon Tai MD Albumin/Glob Ratio 1.4 Normal 1.0-2.5 [facility] Comment on above: Performed By: #### C DP, LIP, CP, TROPI #### [facility] [address] [place] [address] Telephone Operator Receptionist: Jordon Tai MD Alkaline Phos 110 U/L High 35-104 [facility] Comment on above: Performed By: #### C DP, LIP, CP, TROPI #### [address] [place], [place] 8037983 Telephone Operator Receptionist: Jordon Tai MD ALT [Catalytic activity/Vol] 50 U/L High 5-33 [facility] Comment on above: Performed By: #### C DP, LIP, CP, TROPI #### [address] [place], [place] [id number] Telephone Operator Receptionist: Jordon Tai MD Anion gap [Moles/Vol] 15 mmol/L Normal 9-17 [facility] Comment on above: Performed By: #### C DP, LIP, CP, TROPI #### [address] [place], [place] [address]24083 Telephone Operator Receptionist: Jordon Tai MD AST [Catalytic activity/Vol] 35 U/L High <32 [facility] Comment on above: Performed By: #### C DP, LIP, CP, TROPI #### [address] [place], [place] 1010383 Telephone Operator Receptionist: Jordon Tai MD Bilirubin [Mass/Vol] 0.3 mg/dL Normal 0.3-1.2 [facility] Comment on above: Performed By: #### C DP, LIP, CP, TROPI #### [facility] [address] [place], [place] 57[address]83 Telephone Operator Receptionist: Jordon Tai MD BUN/CRE Ratio 10 Normal 9-20 [facility] Comment on above: Performed By: #### C DP, LIP, CP, TROPI #### [facility] [address] [place], [place] 6028983 Telephone Operator Receptionist: Jordon Tai MD Calcium [Mass/Vol] 9.3 mg/dL Normal 8.6-10.4 [facility] Comment on above: Performed By: #### C DP, LIP, CP, TROPI #### [facility] [address] [place], [place] 101[address]3 Telephone Operator Receptionist: Jordon Tai MD Chloride [Moles/Vol] 101 mmol/L Normal 98-107 [facility] Comment on above: Performed By: #### C DP, LIP, CP, TROPI #### [facility] [address] [place] [address] [place], [place] [address] Telephone Operator Receptionist: Jordon Tai MD CO2 [Moles/Vol] 22 mmol/L Normal 20-31 [facility] Comment on above: Performed By: #### C DP, LIP, CP, TROPI #### [address] [place] [address] Telephone Operator Receptionist: Jordon Tai MD Creatinine [Mass/Vol] 0.8 mg/dL Normal 0.5-0.9 [facility] Comment on above: Performed By: #### C DP, LIP, CP, TROPI #### [facility] [address] [place] [address] Telephone Operator Receptionist: Jordon Tai MD GFR/1.73 sq M.predicted among non-blacks MDRD (S/P/Bld) [Vol rate/Area] mL/min/{1.73_m2} Normal >60 [facility] Comment on above: Result Comment: These results are not intended for use in patients <18 years of age. eGFR results are calculated without a race factor using the 2020 CKD-EPI equation. Careful clinical correlation is recommended, particularly when comparing to results calculated using previous equations. The CKD-EPI equation is less accurate in patients with extremes of muscle mass, extra-renal metabolism of creatine, excessive creatine ingestion, or following therapy that affects renal tubular secretion. Performed By: #### C DP, LIP, CP, TROPI #### [facility] [address] [place] [address] Telephone Operator Receptionist: Jordon Tai MD Glucose [Mass/Vol] 124 mg/dL High 70-99 [facility] Comment on above: Performed By: #### C DP, LIP, CP, TROPI #### [address] [place], [place] 5823683 Telephone Operator Receptionist: Jordon Tai MD Protein [Mass/Vol] 7.8 g/dL Normal 6.4-8.3 [facility] Comment on above: Performed By: #### C DP, LIP, CP, TROPI #### [address] [place], [place] 0736183 Telephone Operator Receptionist: Jordon Tai MD Sodium [Moles/Vol] 138 mmol/L Normal 135-144 [facility] Comment on above: Performed By: #### C DP, LIP, CP, TROPI #### [facility] [address] [place] [address] [place], [place] 7321883 Telephone Operator Receptionist: Jordon Tai MD Urea nitrogen [Mass/Vol] 8 mg/dL Normal 6-20 [facility] Comment on above: Performed By: #### C DP, LIP, CP, TROPI #### [facility] [address] [place] [address] Telephone Operator Receptionist: Jordon Tai MD Comprehensive Metabolic Pane l w/ Reflex to MGon 12-23-2023 Albumin [Mass/Vol] 4.6 g/dL 3.5 - 5.2 g/dL [facility] Albumin/Globulin [Mass ratio] 1.4 {ratio} 1.0 - 2.5 [facility] ALP [Catalytic activity/Vol] 110 U/L High 35 - 104 U/L [facility] ALT [Catalytic activity/Vol] 50 U/L High 5 - 33 U/L [facility] Anion gap [Moles/Vol] 15 mmol/L 9 - 17 mmol/L [facility] AST [Catalytic activity/Vol] 35 U/L High NINF - 32 U/L [facility] Bilirubin [Mass/Vol] 0.3 mg/dL 0.3 - 1 .2 mg/dL [facility] Calcium [Mass/Vol] 9.3 mg/dL 8.6 - 10. 4 mg/dL [facility] Chloride [Moles/Vol] 101 mmol/L 98 - 10 7 mmol/L [facility] CO2 [Moles/Vol] 22 mmol/L 20 - 31 mmol/L [facility] Creatinine [Mass/Vol] 0.8 mg/dL 0.5 - 0.9 mg/dL [facility] Est, Glom Filt Rate - PINF [facility] Comment on above: These results are not intended for use in patients <18 years of age. eGFR results are calculated without a race factor using the 2020 CKD-EPI equation. Careful clinical correlation is recommended, particularly when comparing to results calculated using previous equations. The CKD-EPI equation is less accurate in patients with extremes of muscle mass, extra-renal metabolism of creatine, excessive creatine ingestion, or following therapy that affects renal tubular secretion. Glucose [Mass/Vol] 124 mg/dL High 70 - 99 mg/dL [facility] Interpretation and review of laboratory results Abnormal [facility] Potassium [Moles/Vol] 3.2 mmol/L Low 3.7 - 5.3 mmol/L [facility] Protein [Mass/Vol] 7.8 g/dL 6.4 - 8.3 g/dL [facility] Sodium [Moles/Vol] 138 mmol/L 135 - 144 mmol/L [facility] Urea nitrogen [Mass/Vol] 8 mg/dL 6 - 20 mg/dL [facility] Urea nitrogen/Creatinine [Mass ratio] 10 mg/mg 9 - 20 [facility] Magnesiumon 12-23-2023 Magnesium [Mass/Vol] 2.0 mg/dL 1.6 - 2 .6 mg/dL [facility] Magnesium [Mass/Vol] 2.0 mg/dL Normal 1.6-2.6 [facility] Comment on above: Performed By: #### C DP, LIP, CP, TROPI #### [facility] [address] [place] [address] Telephone Operator Receptionist: Jordon Tai MD Troponinon 12-23-2023 Troponin I.cardiac High sensitivity method [Mass/Vol] ng/L 0 - 14 ng/L [facility] Comment on above: High Sensitivity Tro ponin values cannot be compared with other Troponin methodologies. [facility] Troponin, High Sens <6 Normal 0-14 [facility] Comment on above: Result Comment: High Sensitivity Troponin values cannot be compared with other Troponin methodologies. Performed By: #### C DP, LIP, CP, TROPI #### [facility] [address] [place] [address] Telephone Operator Receptionist: Jordon Tai MD Troponin I.cardiac High sensitivity method [Mass/Vol] ng/L 0 - 14 ng/L [facility] Comment on above: High Sensitivity Tro ponin values cannot be compared with other Troponin methodologies. [facility] Troponin, High Sens <6 Normal 0-14 [facility] Comment on above: Result Comment: High Sensitivity Troponin values cannot be compared with other Troponin methodologies. Performed By: #### C DP, LIP, CP, TROPI #### [facility] [address] [place] [address] Telephone Operator Receptionist: Jordon Tai MD XR CHEST (2 VW)on 12-23-2023 XR CHEST (2 VW) EXAMINATION: TWO XRAY VIEWS OF THE CHEST 12/23/2023 2:20 pm COMPARISON: August 12, 2023 HISTORY: ORDERING SYSTEM PROVIDED HISTORY: Chest Pain TECHNOLOGIST PROVIDED HISTORY: IF patient is in hallway or waiting room. Chest Pain FINDINGS: Stable cardiomediastinal silhouette. No significant pulmonary edema. No focal lung consolidation or infiltrate. No pleural effusion or pneumothorax. Osseous structures grossly intact. IMPRESSION: No acute cardiopulmonary process Interpreted by: Es Bach MD Signed by: Es Bach MD 12/23/23 Final result Normal [facility] XR Chest 2 Viewson No acute cardiopulmo nary process [facility] RIS CONSOLIDATED EXAMINATION: TWO XRAY VIEWS OF THE CHEST 12/23/2023 2:20 pm COMPARISON: August 12, 2023 HISTORY: ORDERING SYSTEM PROVIDED HISTORY: Chest Pain TECHNOLOGIST PROVIDED HISTORY: IF patient is in hallway or waiting room. Chest Pain FINDINGS: Stable cardiomediastinal silhouette. No significant pulmonary edema. No focal lung consolidation or infiltrate. No pleural effusion or pneumothorax. Osseous structures grossly intact. [facility] RIS CONSOLIDATED Es Bach MD - 12/23/2023 EXAMINATION: TWO XRAY VIEWS OF THE CHEST 12/23/2023 2:20 pm COMPARISON: August 12, 2023 HISTORY: ORDERING SYSTEM PROVIDED HISTORY: Chest Pain TECHNOLOGIST PROVIDED HISTORY: IF patient is in hallway or waiting room. Chest Pain FINDINGS: Stable cardiomediastinal silhouette. No significant pulmonary edema. No focal lung consolidation or infiltrate. No pleural effusion or pneumothorax. Osseous structures grossly intact. IMPRESSION: No acute cardiopulmonary process [facility] Radiology Study observation (narrative) [facility] XR Chest 2 ViewsOrdered By: Es Bach on 12-23-2023 [facility] Work Phone: Basic Metabolic Profon 12-06 Anion gap [Moles/Vol] 12 mmol/L Normal 9-17 [facility] Comment on above: Performed By: #### B MP, CBC #### [facility] [address] [place], [place] [id number] Telephone Operator Receptionist: Jordon Tai MD BUN/CRE Ratio 13 Normal - [facility] Comment on above: Performed By: #### B MP, CBC #### [facility] [address] [place], [place] [id number] Telephone Operator Receptionist: Jordon Tai MD Calcium [Mass/Vol] 9.1 mg/dL Normal 8.6-10.4 [facility] Comment on above: Performed By: #### B MP, CBC #### [facility] [address] [place], [place] [id number] Telephone Operator Receptionist: Jordon Tai MD Chloride [Moles/Vol] 102 mmol/L Normal 98-107 [facility] Comment on above: Performed By: #### B MP, CBC #### [facility] [address] [place], [place] [id number] Telephone Operator Receptionist: Jordon Tai MD CO2 [Moles/Vol] 26 mmol/L Normal 20-31 [facility] Comment on above: Performed By: #### B MP, CBC #### [facility] [address] [place], [place] 0116183 Telephone Operator Receptionist: Jordon Tai MD Creatinine [Mass/Vol] 0.8 mg/dL Normal 0.5-0.9 [facility] Comment on above: Performed By: #### B MP, CBC #### [facility] [address] [place] [address] [place], [place] [id number] Telephone Operator Receptionist: Jordon Tai MD GFR/1.73 sq M.predicted among non-blacks MDRD (S/P/Bld) [Vol rate/Area] mL/min/{1.73_m2} Normal >60 [facility] Comment on above: Result Comment: These results are not intended for use in patients <18 years of age. eGFR results are calculated without a race factor using the 2020 CKD-EPI equation. Careful clinical correlation is recommended, particularly when comparing to results calculated using previous equations. The CKD-EPI equation is less accurate in patients with extremes of muscle mass, extra-renal metabolism of creatine, excessive creatine ingestion, or following therapy that affects renal tubular secretion. Performed By: #### B MP, CBC #### [facility] [address] [place], [place] [id number] Telephone Operator Receptionist: Jordon Tai MD Glucose [Mass/Vol] 108 mg/dL High 70-99 [facility] Comment on above: Performed By: #### B MP, CBC #### [facility] [address] [place], [place] [id number] Telephone Operator Receptionist: Jordon Tai MD Potassium [Moles/Vol] 4.2 mmol/L Normal 3.7-5.3 [facility] Comment on above: Performed By: #### B MP, CBC #### [address] [place], [place] [address]32883 Telephone Operator Receptionist: Jordon Tai MD Sodium [Moles/Vol] 140 mmol/L Normal 135-144 [facility] Comment on above: Performed By: #### B MP, CBC #### [facility] [address] [place] [address] [place], [place] 0478183 Telephone Operator Receptionist: Jordon Tai MD Urea nitrogen [Mass/Vol] 10 mg/dL Normal 6-20 [facility] Comment on above: Performed By: #### B MP, CBC #### [address] [place], [place] [id number] Telephone Operator Receptionist: Jordon Tai MD [facility] 12-07-2023 Erythrocyte distribution width (RBC) [Ratio] 11.9 % Normal 11.8-14.4 [facility] Comment on above: Performed By: #### B MP, CBC #### [facility] [address] [place] [address] [place], [place] 474[address]83 Telephone Operator Receptionist: Jordon Tai MD Hematocrit (Bld) [Volume fraction] 38.9 % Normal 36.3-47.1 [facility] Comment on above: Performed By: #### B MP, CBC #### [facility] [address] [place] [address] [place], [place] 7[address]83 Telephone Operator Receptionist: Jordon Tai MD Hemoglobin (Bld) [Mass/Vol] 13.1 g/dL Normal 11.9-15.1 [facility] Comment on above: Performed By: #### B MP, CBC #### [facility] [address] [place] [address] Telephone Operator Receptionist: Jordon Tai MD MCH (RBC) [Entitic mass] 29.4 pg Normal 25.2-33.5 [facility] Comment on above: Performed By: #### B MP, CBC #### [address] [place] [address] Telephone Operator Receptionist: Jordon Tai MD MCHC (RBC) [Mass/Vol] 33.7 g/dL Normal 28.4-34.8 [facility] Comment on above: Performed By: #### B RUPAL, CBC #### [address] [place] [address] Telephone Operator Receptionist: Jordon Tai MD MCV (RBC) [Entitic vol] 87.2 fL Normal 82.6-102.9 [facility] Comment on above: Performed By: #### B MP, CBC #### [address] [place] [address] Telephone Operator Receptionist: Jordon Tai MD NRBC Automated 0.0 per 100 WBC Normal 0.0 [facility] Comment on above: Performed By: #### B MP, CBC #### [address] [place] [address] Telephone Operator Receptionist: Jordon Tai MD Platelet mean volume (Bld) [Entitic vol] 9.7 fL Normal 8.1-13.5 [facility] Comment on above: Performed By: #### B MP, CBC #### [address] [place] [address] Telephone Operator Receptionist: Jordon Tai MD Platelets (Bld) [#/Vol] 264 10*3/uL Normal 138-453 [facility] Comment on above: Performed By: #### B MP, CBC #### [facility] [address] [place], [facility]83 Telephone Operator Receptionist: Jordon Tai MD RBC (Bld) [#/Vol] 4.46 10*6/uL Normal 3.95-5.11 [facility] Comment on above: Performed By: #### B MP, CBC #### [facility] [address] [place], [facility]83 Telephone Operator Receptionist: Jordon Tai MD WBC (Bld) [#/Vol] 6.7 10*3/uL Normal 3.5-11.3 [facility] Comment on above: Performed By: #### B MP, CBC #### [facility] [address] [place], [place] [address] Telephone Operator Receptionist: Jordon Tai MD TSH w/reflex to FT4on 2023 Thyroid Stim. Horm. 2.09 uIU/mL Normal 0.30-5.00 [facility] Comment on above: Performed By: #### C DP, LIP, CP, TROPI #### [address] [place], [facility]83 Telephone Operator Receptionist: Jordon Tai MD CBC with Diffon 08-18-2023 Abs. Basophil <0.03 Normal 0.00-0.20 [facility] Comment on above: Performed By: #### C DP, LIP, CP, TROPI #### [facility] [address] [place], [facility]83 Telephone Operator Receptionist: Jordon Tai MD Abs.Imm.Granulocyte 0.04 k/uL Normal 0.00-0.30 [facility] Comment on above: Performed By: #### C DP, LIP, CP, TROPI #### [facility] [address] [place], [place] [address] Telephone Operator Receptionist: Jordon Tai MD Abs.Neutrophil (Seg) 6.03 k/uL Normal 1.50-8.10 [facility] Comment on above: Performed By: #### C DP, LIP, CP, TROPI #### [address] [place], [facility]83 Telephone Operator Receptionist: Jordon Tai MD Basophils/100 WBC (Bld) 0 % Normal 0-2 [facility] Comment on above: Performed By: #### C DP, LIP, CP, TROPI #### [address] [place], [place] [address] Telephone Operator Receptionist: Jordon Tai MD Eosinophils (Bld) [#/Vol] 0.07 10*3/uL Normal 0.00-0.44 [facility] Comment on above: Performed By: #### C DP, LIP, CP, TROPI #### [address] [place], [place] [address] Telephone Operator Receptionist: Jordon Tai MD Eosinophils/100 WBC (Bld) 1 % Normal 1-4 [facility] Comment on above: Performed By: #### C DP, LIP, CP, TROPI #### [address] [place], [place] [address] Telephone Operator Receptionist: Jordon Tai MD Erythrocyte distribution width (RBC) [Ratio] 12.0 % Normal 11.8-14.4 [facility] Comment on above: Performed By: #### C DP, LIP, CP, TROPI #### [address] [place], [facility]83 Telephone Operator Receptionist: Jordon Tai MD Hematocrit (Bld) [Volume fraction] 38.2 % Normal 36.3-47.1 [facility] Comment on above: Performed By: #### C DP, LIP, CP, TROPI #### [address] [place] [id number] Telephone Operator Receptionist: Jordon Tai MD Hemoglobin (Bld) [Mass/Vol] 13.7 g/dL Normal 11.9-15.1 [facility] Comment on above: Performed By: #### C DP, LIP, CP, TROPI #### [facility] [address] [place] [address] Telephone Operator Receptionist: Jordon Tai MD Immature granulocytes/100 WBC (Bld) 0 % Normal 0 [facility] Comment on above: Performed By: #### C DP, LIP, CP, TROPI #### [address] [place] [address] Telephone Operator Receptionist: Jordon Tai MD Lymphocytes (Bld) [#/Vol] 2.56 10*3/uL Normal 1.10-3.70 [facility] Comment on above: Performed By: #### C DP, LIP, CP, TROPI #### [address] [place], [place] [address] Telephone Operator Receptionist: Jordon Tai MD Lymphocytes/100 WBC (Bld) 28 % Normal 24-43 [facility] Comment on above: Performed By: #### C DP, LIP, CP, TROPI #### [address] [place], [facility]83 Telephone Operator Receptionist: Jordon Tai MD MCH (RBC) [Entitic mass] 30.9 pg Normal 25.2-33.5 [facility] Comment on above: Performed By: #### C DP, LIP, CP, TROPI #### [address] [place], [facility]83 Telephone Operator Receptionist: Jordon Tai MD MCHC (RBC) [Mass/Vol] 35.9 g/dL High 28.4-34.8 [facility] Comment on above: Performed By: #### C DP, LIP, CP, TROPI #### [address] [place] [id number] Telephone Operator Receptionist: Jordon Tai MD MCV (RBC) [Entitic vol] 86.2 fL Normal 82.6-102.9 [facility] Comment on above: Performed By: #### C DP, LIP, CP, TROPI #### [address] [place], [place] [id number] Telephone Operator Receptionist: Jordon Tai MD Monocytes (Bld) [#/Vol] 0.60 10*3/uL Normal 0.10-1.20 [facility] Comment on above: Performed By: #### C DP, LIP, CP, TROPI #### [address] [place], [facility]83 Telephone Operator Receptionist: Jordon Tai MD Monocytes/100 WBC (Bld) 6 % Normal 3-12 [facility] Comment on above: Performed By: #### C DP, LIP, CP, TROPI #### [address] [place], [facility]83 Telephone Operator Receptionist: Jordon Tai MD Neutrophil (Seg) 65 % Normal 36-65 [facility] Comment on above: Performed By: #### C DP, LIP, CP, TROPI #### [address] [place], [facility]83 Telephone Operator Receptionist: Jordon Tai MD NRBC Automated 0.0 per 100 WBC Normal 0.0 [facility] Comment on above: Performed By: #### C DP, LIP, CP, TROPI #### [address] [place], [place] 360[address]83 Telephone Operator Receptionist: Jordon Tai MD Platelet mean volume (Bld) [Entitic vol] 9.5 fL Normal 8.1-13.5 [facility] Comment on above: Performed By: #### C DP, LIP, CP, TROPI #### [address] [place] [id number] Telephone Operator Receptionist: Jordon Tai MD Platelets (Bld) [#/Vol] 257 10*3/uL Normal 138-453 [facility] Comment on above: Performed By: #### C DP, LIP, CP, TROPI #### [facility] [address] [place], [place] [id number] Telephone Operator Receptionist: Jordon Tai MD RBC (Bld) [#/Vol] 4.43 10*6/uL Normal 3.95-5.11 [facility] Comment on above: Performed By: #### C DP, LIP, CP, TROPI #### [facility] [address] [place] [id number] ( Telephone Operator Receptionist: Jordon Tai MD WBC (Bld) [#/Vol] 9.3 10*3/uL Normal 3.5-11.3 [facility] Comment on above: Performed By: #### C DP, LIP, CP, TROPI #### [facility] [address] [place], [place] 632[address]83 Telephone Operator Receptionist: Jordon Tai MD Comp Metabolic Pr/rfx MGon 0 - Albumin [Mass/Vol] 4.0 g/dL Normal 3.5-5.2 [facility] Comment on above: Performed By: #### C DP, LIP, CP, TROPI #### [facility] [address] [place], [facility]44 ( Telephone Operator Receptionist: Jordon Tai MD Albumin/Glob Ratio 1.4 Normal 1.0-2.5 [facility] Comment on above: Performed By: #### C DP, LIP, CP, TROPI #### [facility] [address] [place], [place] 3919483 Telephone Operator Receptionist: Jordon Tai MD Alkaline Phos 158 U/L High 35-104 [facility] Comment on above: Performed By: #### C DP, LIP, CP, TROPI #### [facility] [address] [place], [place] 9123283 Telephone Operator Receptionist: Jordon Tai MD ALT [Catalytic activity/Vol] 70 U/L High 5-33 [facility] Comment on above: Performed By: #### C DP, LIP, CP, TROPI #### [facility] [address] [place], [place] 380[address]83 Telephone Operator Receptionist: Jordon Tai MD Anion gap [Moles/Vol] 10 mmol/L Normal 9-17 [facility] Comment on above: Performed By: #### C DP, LIP, CP, TROPI #### [facility] [address] [place], [place] 3046483 Telephone Operator Receptionist: Jordon Tai MD AST [Catalytic activity/Vol] 45 U/L High <32 [facility] Comment on above: Performed By: #### C DP, LIP, CP, TROPI #### [facility] [address] [place] [address] [place], [place] 0351283 Telephone Operator Receptionist: Jordon Tai MD Bilirubin [Mass/Vol] 0.7 mg/dL Normal 0.3-1.2 [facility] Comment on above: Performed By: #### C DP, LIP, CP, TROPI #### [address] [place], [place] [address]455[address] Telephone Operator Receptionist: Jordon Tai MD BUN/CRE Ratio 9 Normal 9-20 [facility] Comment on above: Performed By: #### C DP, LIP, CP, TROPI #### [facility] [address] [place], [place] 2792283 Telephone Operator Receptionist: Jordon Tai MD Calcium [Mass/Vol] 8.9 mg/dL Normal 8.6-10.4 [facility] Comment on above: Performed By: #### C DP, LIP, CP, TROPI #### [facility] [address] [place] [address] [place] [address] Telephone Operator Receptionist: Jordon Tai MD Chloride [Moles/Vol] 103 mmol/L Normal 98-107 [facility] Comment on above: Performed By: #### C DP, LIP, CP, TROPI #### [facility] [address] [place] [address] Telephone Operator Receptionist: Jordon Tai MD CO2 [Moles/Vol] 27 mmol/L Normal 20-31 [facility] Comment on above: Performed By: #### C DP, LIP, CP, TROPI #### [facility] [address] [place] [address] Telephone Operator Receptionist: Jordon Tai MD Creatinine [Mass/Vol] 0.7 mg/dL Normal 0.5-0.9 [facility] Comment on above: Performed By: #### C DP, LIP, CP, TROPI #### [facility] [address] [place] [address] Telephone Operator Receptionist: Jordon Tai MD GFR/1.73 sq M.predicted among non-blacks MDRD (S/P/Bld) [Vol rate/Area] mL/min/{1.73_m2} Normal >60 [facility] Comment on above: Result Comment: These results are not intended for use in patients <18 years of age. eGFR results are calculated without a race factor using the 2020 CKD-EPI equation. Careful clinical correlation is recommended, particularly when comparing to results calculated using previous equations. The CKD-EPI equation is less accurate in patients with extremes of muscle mass, extra-renal metabolism of creatine, excessive creatine ingestion, or following therapy that affects renal tubular secretion. Performed By: #### C DP, LIP, CP, TROPI #### [facility] [address] [place] [address] Telephone Operator Receptionist: Jordon Tai MD Glucose [Mass/Vol] 98 mg/dL Normal 70-99 [facility] Comment on above: Performed By: #### C DP, LIP, CP, TROPI #### [facility] [address] [place], [place] [address]183 Telephone Operator Receptionist: Jordon Tai MD Potassium [Moles/Vol] 3.9 mmol/L Normal 3.7-5.3 [facility] Comment on above: Performed By: #### C DP, LIP, CP, TROPI #### [address] [place], [place] [address]248483 Telephone Operator Receptionist: Jordon Tai MD Protein [Mass/Vol] 6.9 g/dL Normal 6.4-8.3 [facility] Comment on above: Performed By: #### C DP, LIP, CP, TROPI #### [address] [place] [address] Telephone Operator Receptionist: Jordon Tai MD Sodium [Moles/Vol] 140 mmol/L Normal 135-144 [facility] Comment on above: Performed By: #### C DP, LIP, CP, TROPI #### [address] [place] [address] Telephone Operator Receptionist: Jordon Tai MD Urea nitrogen [Mass/Vol] 6 mg/dL Normal 6-20 [facility] Comment on above: Performed By: #### C DP, LIP, CP, TROPI #### [address] [place], [place] [phone] Telephone Operator Receptionist: Jordon Tai MD MRI ABDOMEN W WO CONTRAST MR CPon 08-18-2023 MRI ABDOMEN W WO CONTRAST MRCP EXAMINATION: MRI OF THE ABDOMEN WITH AND WITHOUT CONTRAST AND MRCP 08/18/2023 1:26 pm TECHNIQUE: Multiplanar multisequence MRI of the abdomen was performed with and without the administration of intravenous contrast. After initial T2 axial and coronal images, thick slab, thin slab and 3D coronal MRCP sequences were obtained without the administration of intravenous contrast. MIP images are provided for review. COMPARISON: CT scan 08/12/2023 HISTORY: ORDERING SYSTEM PROVIDED HISTORY: elevated LFT TECHNOLOGIST PROVIDED HISTORY: elevated LFT FINDINGS: Lower Chest: Mild bilateral pleural effusions. Organs: Liver: There is diffuse hepatic steatosis. There is no hepatic cirrhosis. No arterial phase hyperenhancement or abnormal washout is seen. Spleen: Normal. Pancreas: Normal Gallbladder: Gallbladder is surgically absent with expected prominence of CBD measuring 5 mm in diameter. No filling defects are seen in the CBD. Adrenal glands: Normal. No focal lesions are seen. Kidneys and ureters: Normal. There is no hydronephrosis. Ureters are non-dilated. Abdominal aorta and branches: Normal in caliber. IVC and portal vein: Normal in caliber. GI/Bowel: Normal No evidence of appendicitis. Peritoneum/Retroperitone um: Normal Bones/Soft Tissues: Lower lumbar spinal fixation hardware is seen in-situ. Bone marrow thin normal in signal. IMPRESSION: 1. Diffuse hepatic steatosis. No hepatic cirrhosis. 2. Status post cholecystectomy with expected prominence of CBD. 3. Mild bilateral pleural effusions. Interpreted by: Davie White MD Signed by: Davie White MD 08/18/23 Final result Normal [facility] CBC with Diffon 08-17-2023 Abs. Basophil 0.03 k/uL Normal 0.00-0.20 [facility] Comment on above: Performed By: #### C MPX, CDP #### [address] [place] [id number] Telephone Operator Receptionist: Jordon Tai MD Abs.Imm.Granulocyte 0.04 k/uL Normal 0.00-0.30 [facility] Comment on above: Performed By: #### C MPX, CDP #### [address] [place], [facility]83 Telephone Operator Receptionist: Jordon Tai MD Abs.Neutrophil (Seg) 5.24 k/uL Normal 1.50-8.10 [facility] Comment on above: Performed By: #### C MPX, CDP #### [address] [place], [place] 57[address]383 Telephone Operator Receptionist: Jordon Tai MD Basophils/100 WBC (Bld) 0 % Normal 0-2 [facility] Comment on above: Performed By: #### C MPX, CDP #### [address] [place], [place] [address]83 Telephone Operator Receptionist: Jordon Tai MD Eosinophils (Bld) [#/Vol] 0.07 10*3/uL Normal 0.00-0.44 [facility] Comment on above: Performed By: #### C MPX, CDP #### [address] [place], [facility]83 Telephone Operator Receptionist: Jordon Tai MD Eosinophils/100 WBC (Bld) 1 % Normal 1-4 [facility] Comment on above: Performed By: #### C MPX, CDP #### [address] [place], [facility]83 Telephone Operator Receptionist: Jordon Tai MD Erythrocyte distribution width (RBC) [Ratio] 11.9 % Normal 11.8-14.4 [facility] Comment on above: Performed By: #### C MPX, CDP #### [address] [place], [facility]83 Telephone Operator Receptionist: Jordon Tai MD Hematocrit (Bld) [Volume fraction] 37.2 % Normal 36.3-47.1 [facility] Comment on above: Performed By: #### C MPX, CDP #### [address] [place], [facility]83 Telephone Operator Receptionist: Jordon Tai MD Hemoglobin (Bld) [Mass/Vol] 12.7 g/dL Normal 11.9-15.1 [facility] Comment on above: Performed By: #### C MPX, CDP #### [address] [place] [address] Telephone Operator Receptionist: Jordon Tai MD Immature granulocytes/100 WBC (Bld) 1 % High 0 [facility] Comment on above: Performed By: #### C MPX, CDP #### [address] [place], [facility]83 Telephone Operator Receptionist: Jordon Tai MD Lymphocytes (Bld) [#/Vol] 1.99 10*3/uL Normal 1.10-3.70 [facility] Comment on above: Performed By: #### C MPX, CDP #### [facility] [address] [place], [facility]83 Telephone Operator Receptionist: Jordon Tai MD Lymphocytes/100 WBC (Bld) 25 % Normal 24-43 [facility] Comment on above: Performed By: #### C MPX, CDP #### [facility] [address] [place], [facility]37 ( Telephone Operator Receptionist: Jordon Tai MD MCH (RBC) [Entitic mass] 29.7 pg Normal 25.2-33.5 [facility] Comment on above: Performed By: #### C MPX, CDP #### [address] [place], [facility]82 ( Telephone Operator Receptionist: Jordon Tai MD MCHC (RBC) [Mass/Vol] 34.1 g/dL Normal 28.4-34.8 [facility] Comment on above: Performed By: #### C MPX, CDP #### [address] [place], [facility]83 Telephone Operator Receptionist: Jordon Tai MD MCV (RBC) [Entitic vol] 87.1 fL Normal 82.6-102.9 [facility] Comment on above: Performed By: #### C MPX, CDP #### [address] [place], [place] [id number] Telephone Operator Receptionist: Jordon Tai MD Monocytes (Bld) [#/Vol] 0.71 10*3/uL Normal 0.10-1.20 [facility] Comment on above: Performed By: #### C MPX, CDP #### [address] [place], [place] 2650083 Telephone Operator Receptionist: Jordon Tai MD Monocytes/100 WBC (Bld) 9 % Normal 3-12 M [facility] Comment on above: Performed By: #### C MPX, CDP #### [facility] [address] [place], [place] 5454683 Telephone Operator Receptionist: Jordon Tai MD Neutrophil (Seg) 64 % Normal 36-65 [facility] Comment on above: Performed By: #### C MPX, CDP #### [facility] [address] [place], [place] 943[address]83 Telephone Operator Receptionist: Jordon Tai MD NRBC Automated 0.0 per 100 WBC Normal 0.0 [facility] Comment on above: Performed By: #### C MPX, CDP #### [facility] [address] [place], [place] 0605383 Telephone Operator Receptionist: Jordon Tai MD Platelet mean volume (Bld) [Entitic vol] 9.5 fL Normal 8.1-13.5 [facility] Comment on above: Performed By: #### C MPX, CDP #### [address] [place], [place] 6256083 Telephone Operator Receptionist: Jordon Tai MD Platelets (Bld) [#/Vol] 243 10*3/uL Normal 138-453 [facility] Comment on above: Performed By: #### C MPX, CDP #### [facility] [address] [place] [address] Dr. [place], [place] 5932583 Telephone Operator Receptionist: Jordon Tai MD RBC (Bld) [#/Vol] 4.27 10*6/uL Normal 3.95-5.11 [facility] Comment on above: Performed By: #### C MPX, CDP #### [facility] [address] [place], [place] [id number] Telephone Operator Receptionist: Jordon Tai MD WBC (Bld) [#/Vol] 8.1 10*3/uL Normal 3.5-11.3 [facility] Comment on above: Performed By: #### C MPX, CDP #### [facility] [address] [place], [place] [id number] Telephone Operator Receptionist: Jordon Tai MD Comp Metabolic Pr/rfx MGon 0 08-17-2023 Albumin [Mass/Vol] 3.8 g/dL Normal 3.5-5.2 [facility] Comment on above: Performed By: #### C MPX, CDP #### [facility] [address] [place], [place] 9078083 Telephone Operator Receptionist: Jordon Tai MD Albumin/Glob Ratio 1.4 Normal 1.0-2.5 [facility] Comment on above: Performed By: #### C MPX, CDP #### [facility] [address] [place], [place] 6446183 Telephone Operator Receptionist: Jordon Tai MD Alkaline Phos 171 U/L High 35-104 [facility] Comment on above: Performed By: #### C MPX, CDP #### [facility] [address] [place], [place] 2712783 Telephone Operator Receptionist: Jordon Tai MD ALT [Catalytic activity/Vol] 73 U/L High 5-33 [facility] Comment on above: Performed By: #### C MPX, CDP #### [facility] [address] [place], [place] 5914383 Telephone Operator Receptionist: Jordon Tai MD Anion gap [Moles/Vol] 13 mmol/L Normal 9-17 [facility] Comment on above: Performed By: #### C MPX, CDP #### [facility] [address] [place], [place] 1385783 Telephone Operator Receptionist: Jordon Tai MD AST [Catalytic activity/Vol] 65 U/L High <32 [facility] Comment on above: Performed By: #### C MPX, CDP #### [facility] [address] [place], [place] 0559883 Telephone Operator Receptionist: Jordon Tai MD Bilirubin [Mass/Vol] 0.7 mg/dL Normal 0.3-1.2 [facility] Comment on above: Performed By: #### C MPX, CDP #### [facility] [address] [place], [place] [id number] Telephone Operator Receptionist: Jordon Tai MD BUN/CRE Ratio 10 Normal 9-20 [facility] Comment on above: Performed By: #### C MPX, CDP #### [facility] [address] [place], [place] 7528083 Telephone Operator Receptionist: Jordon Tai MD Calcium [Mass/Vol] 8.7 mg/dL Normal 8.6-10.4 [facility] Comment on above: Performed By: #### C MPX, CDP #### [facility] [address] [place], [place] 1539183 Telephone Operator Receptionist: Jordon Tai MD Chloride [Moles/Vol] 99 mmol/L Normal 98-107 [facility] Comment on above: Performed By: #### C MPX, CDP #### [facility] [address] [place], [place] 2714683 Telephone Operator Receptionist: Jordon Tai MD CO2 [Moles/Vol] 27 mmol/L Normal 20-31 [facility] Comment on above: Performed By: #### C MPX, CDP #### [facility] [address] [place], [place] 3590083 Telephone Operator Receptionist: Jordon Tai MD Creatinine [Mass/Vol] 0.6 mg/dL Normal 0.5-0.9 [facility] Comment on above: Performed By: #### C MPX, CDP #### [facility] [address] [place] [address] Telephone Operator Receptionist: Jordon Tai MD GFR/1.73 sq M.predicted among non-blacks MDRD (S/P/Bld) [Vol rate/Area] mL/min/{1.73_m2} Normal >60 [facility] Comment on above: Result Comment: These results are not intended for use in patients <18 years of age. eGFR results are calculated without a race factor using the 2020 CKD-EPI equation. Careful clinical correlation is recommended, particularly when comparing to results calculated using previous equations. The CKD-EPI equation is less accurate in patients with extremes of muscle mass, extra-renal metabolism of creatine, excessive creatine ingestion, or following therapy that affects renal tubular secretion. Performed By: #### C MPX, CDP #### [facility] [address] [place] [address] [place] [address] Telephone Operator Receptionist: Jordon Tai MD Glucose [Mass/Vol] 92 mg/dL Normal 70-99 [facility] Comment on above: Performed By: #### C MPX, CDP #### [address] [place], [place] 5716383 Telephone Operator Receptionist: Jordon Tai MD Potassium [Moles/Vol] 3.9 mmol/L Normal 3.7-5.3 [facility] Comment on above: Performed By: #### C MPX, CDP #### [address] [place] [address] Telephone Operator Receptionist: Jordon Tai MD Protein [Mass/Vol] 6.5 g/dL Normal 6.4-8.3 [facility] Comment on above: Performed By: #### C MPX, CDP #### [facility] [address] [place] [address] Dr. [place], [place] 5769083 Telephone Operator Receptionist: Jordon Tai MD Sodium [Moles/Vol] 139 mmol/L Normal 135-144 [facility] Comment on above: Performed By: #### C MPX, CDP #### [facility] [address] [place] [address] [place] [address] Telephone Operator Receptionist: Jordon Tai MD Urea nitrogen [Mass/Vol] 6 mg/dL Normal 6-20 [facility] Comment on above: Performed By: #### C MPX, CDP #### [facility] [address] [place] [address] Telephone Operator Receptionist: Jordon Tai MD Surgical Pathology Reporton 08-17-2023 Surgical Pathology Report (NOTE) Path Number: [id number] -- Diagnosis -- A. STOMACH, ANTRUM, BIOPSIES: - MILD CHRONIC GASTRITIS. - NEGATIVE FOR HELICOBACTER PYLORI INFECTION AND INTESTINAL METAPLASIA. B. STOMACH, BODY, BIOPSY: - BENIGN/UNREMARKABLE GASTRIC MUCOSA. C. ESOPHAGUS, BIOPSIES: - BENIGN/UNREMARKABLE SQUAMOUS MUCOSA. Guero Jones M.D. Electronically Signed Out sls/08/18/2023 Clinical Information Pre-Op Diagnosis: ABDOMINAL PAIN, UNSPECIFIED ABDOMINAL LOCATION Operative Findings: ANTRAL BX; GASTRIC BODY BX; ESOPHAGEAL BX Operation Performed: EGD ESOPHAGOGASTRODUODENOSCO PY kb Source of Specimen A: ANTRAL BX B: GASTRIC BODY BX C: ESOPHAGEAL BX Gross Description A. MIKE SHARIF ANTRAL BX Received in formalin are three mancini-white tissue fragments from 0.1 to 0.7 cm and are 0.7 x 0.5 x 0.2 cm in aggregate. Entirely 1cs. B. MIKE SHARIF GASTRIC BODY BX Received in formalin is one mancini-white tissue fragment, 0.6 x 0.2 x 0.2 cm. Entirely 1cs. C. MIKE SHARIF ESOPHAGEAL BX Received in formalin are two mancini-white tissue fragments from < 0.1 to 0.7 cm and are 0.7 x 0.3 x 0.1 cm in aggregate. The smallest fragment may not survive processing. Entirely 1cs. jj tm Guero Jones M.D./kb2:08/17/2023 Microscopic Description A-C. Microscopic examination performed. Processing Lab: [address] [id number] Interpretation Performed at [address] [id number] SURGICAL PATHOLOGY CONSULTATION Patient Name: MIKE SHARIF [facility] Rec: [id number] [facility] ANATOMIC PATHOLOGY [address] [place] [address]. [place], [place] [address] Normal [facility] CBC with Diffon 08-16-2023 Abs. Basophil 0.03 k/uL Normal 0.00-0.20 [facility] Comment on above: Performed By: #### C DP, LIP, CP, TROPI #### [address] [place], [place] [id number] Telephone Operator Receptionist: Jordon Tai MD Abs.Imm.Granulocyte 0.06 k/uL Normal 0.00-0.30 [facility] Comment on above: Performed By: #### C DP, LIP, CP, TROPI #### [address] [place], [place] 1665383 Telephone Operator Receptionist: Jordon Tai MD Abs.Neutrophil (Seg) 5.71 k/uL Normal 1.50-8.10 [facility] Comment on above: Performed By: #### C DP, LIP, CP, TROPI #### [address] [place], [place] 0322183 Telephone Operator Receptionist: Jordon Tai MD Basophils/100 WBC (Bld) 0 % Normal 0-2 [facility] Comment on above: Performed By: #### C DP, LIP, CP, TROPI #### [address] [place], [place] 9506083 Telephone Operator Receptionist: Jordon Tai MD Eosinophils (Bld) [#/Vol] 0.07 10*3/uL Normal 0.00-0.44 [facility] Comment on above: Performed By: #### C DP, LIP, CP, TROPI #### [address] [place], [place] 9963983 Telephone Operator Receptionist: Jordon Tai MD Eosinophils/100 WBC (Bld) 1 % Normal 1-4 [facility] Comment on above: Performed By: #### C DP, LIP, CP, TROPI #### [address] [place], [place] [address] Telephone Operator Receptionist: Jordon Tai MD Erythrocyte distribution width (RBC) [Ratio] 11.9 % Normal 11.8-14.4 [facility] Comment on above: Performed By: #### C DP, LIP, CP, TROPI #### [address] [place], [place] [address] Telephone Operator Receptionist: Jordon Tai MD Hematocrit (Bld) [Volume fraction] 39.3 % Normal 36.3-47.1 [facility] Comment on above: Performed By: #### C DP, LIP, CP, TROPI #### [address] [place], [place] [address] Telephone Operator Receptionist: Jordon Tai MD Hemoglobin (Bld) [Mass/Vol] 13.4 g/dL Normal 11.9-15.1 [facility] Comment on above: Performed By: #### C DP, LIP, CP, TROPI #### [address] [place], [place] [address] Telephone Operator Receptionist: Jordon Tai MD Immature granulocytes/100 WBC (Bld) 1 % High 0 [facility] Comment on above: Performed By: #### C DP, LIP, CP, TROPI #### [address] [place], [place] [address] Telephone Operator Receptionist: Jordon Tai MD Lymphocytes (Bld) [#/Vol] 2.71 10*3/uL Normal 1.10-3.70 [facility] Comment on above: Performed By: #### C DP, LIP, CP, TROPI #### [address] [place], [facility]83 Telephone Operator Receptionist: Jordon Tai MD Lymphocytes/100 WBC (Bld) 29 % Normal 24-43 [facility] Comment on above: Performed By: #### C DP, LIP, CP, TROPI #### [address] [place], [place] 4472083 Telephone Operator Receptionist: Jordon Tai MD MCH (RBC) [Entitic mass] 29.5 pg Normal 25.2-33.5 [facility] Comment on above: Performed By: #### C DP, LIP, CP, TROPI #### [address] [place], [facility]83 Telephone Operator Receptionist: Jordon Tai MD MCHC (RBC) [Mass/Vol] 34.1 g/dL Normal 28.4-34.8 [facility] Comment on above: Performed By: #### C DP, LIP, CP, TROPI #### [address] [place] [address]383 Telephone Operator Receptionist: Jordon Tai MD MCV (RBC) [Entitic vol] 86.6 fL Normal 82.6-102.9 [facility] Comment on above: Performed By: #### C DP, LIP, CP, TROPI #### [address] [place], [place] [address] Telephone Operator Receptionist: Jordon Tai MD Monocytes (Bld) [#/Vol] 0.85 10*3/uL Normal 0.10-1.20 [facility] Comment on above: Performed By: #### C DP, LIP, CP, TROPI #### [address] [place], [facility]44 ( Telephone Operator Receptionist: Jordon Tai MD Monocytes/100 WBC (Bld) 9 % Normal 3-12 M [facility] Comment on above: Performed By: #### C DP, LIP, CP, TROPI #### [address] [place], [place] 6475583 Telephone Operator Receptionist: Jordon Tai MD Neutrophil (Seg) 60 % Normal 36-65 [facility] Comment on above: Performed By: #### C DP, LIP, CP, TROPI #### [facility] [address] [place], [place] 1971583 Telephone Operator Receptionist: Jordon Tai MD NRBC Automated 0.0 per 100 WBC Normal 0.0 [facility] Comment on above: Performed By: #### C DP, LIP, CP, TROPI #### [address] [place], [place] [address] Telephone Operator Receptionist: Jordon Tai MD Platelet mean volume (Bld) [Entitic vol] 9.3 fL Normal 8.1-13.5 [facility] Comment on above: Performed By: #### C DP, LIP, CP, TROPI #### [address] [place], [facility]83 Telephone Operator Receptionist: Jordon Tai MD Platelets (Bld) [#/Vol] 271 10*3/uL Normal 138-453 [facility] Comment on above: Performed By: #### C DP, LIP, CP, TROPI #### [address] [place], [facility]83 Telephone Operator Receptionist: Jordon Tai MD RBC (Bld) [#/Vol] 4.54 10*6/uL Normal 3.95-5.11 [facility] Comment on above: Performed By: #### C DP, LIP, CP, TROPI #### [address] [place], [facility]83 Telephone Operator Receptionist: Jordon Tai MD WBC (Bld) [#/Vol] 9.4 10*3/uL Normal 3.5-11.3 [facility] Comment on above: Performed By: #### C DP, LIP, CP, TROPI #### [address] [place] [address] Telephone Operator Receptionist: Jordon Tai MD CT ABDOMEN PELVIS W IV CONTR [place] 08-16-2023 CT ABDOMEN PELVIS W IV CONTRAST EXAMINATION: CT OF THE ABDOMEN AND PELVIS WITH CONTRAST 08/16/2023 2:14 pm TECHNIQUE: CT of the abdomen and pelvis was performed with the administration of intravenous contrast. Multiplanar reformatted images are provided for review. Automated exposure control, iterative reconstruction, and/or weight based adjustment of the mA/kV was utilized to reduce the radiation dose to as low as reasonably achievable. COMPARISON: None. HISTORY: ORDERING SYSTEM PROVIDED HISTORY: Diffuse abd pain with vomiting. Worsened since prior visit. H/O SBO. TECHNOLOGIST PROVIDED HISTORY: Diffuse abd pain with vomiting. Worsened since prior visit. H/O SBO. Decision Support Exception - unselect if not a suspected or confirmed emergency medical condition->Emergency Medical Condition (MA) FINDINGS: Lower Chest: No significant abnormalities. Organs: Liver: Mild hepatic steatosis. No focal lesions are seen. Spleen: Normal. Pancreas: Normal Gallbladder: Gallbladder is surgically absent with expected prominence of CBD.. Adrenal glands: Normal. No focal lesions are seen. Kidneys and ureters: Normal. There is no hydronephrosis or calculi. Ureters are non-dilated. Abdominal aorta and branches: Normal in caliber. IVC and portal vein: Normal in caliber. GI/Bowel: Normal in caliber and wall thickness no evidence of appendicitis. Peritoneum/Retroperitone um: Normal PELVIS Uterus is surgically absent. No adnexal lesions are seen. Bones/Soft Tissues: Degenerative changes are seen in the lumbar spine. No lytic or blastic lesions are seen. Posterior spinal fixation hardware is seen at at L5-S1 level. Intervertebral disc spacers are noted at L3-L4, L4-L5 and L5-S1 levels. There is a fat containing umbilical hernia. IMPRESSION: 1. No acute intra-abdominal or pelvic abnormality. 2. Status post cholecystectomy and hysterectomy. 3. Fat-containing umbilical hernia. Interpreted by: Davie White MD Signed by: Davie White MD 08/16/23 Final result Normal [facility] Comp Metabolic Profon 2023 Albumin [Mass/Vol] 4.2 g/dL Normal 3.5-5.2 [facility] Comment on above: Performed By: #### C DP, LIP, CP, TROPI #### [facility] [address] [place], [place] 6450983 Telephone Operator Receptionist: Jordon Tai MD Albumin/Glob Ratio 1.4 Normal 1.0-2.5 [facility] Comment on above: Performed By: #### C DP, LIP, CP, TROPI #### [facility] [address] [place], [place] 2155883 Telephone Operator Receptionist: Jordon Tai MD Alkaline Phos 117 U/L High 35-104 [facility] Comment on above: Performed By: #### C DP, LIP, CP, TROPI #### [facility] [address] [place], [place] 5805183 Telephone Operator Receptionist: Jordon Tai MD ALT [Catalytic activity/Vol] 37 U/L High 5-33 [facility] Comment on above: Performed By: #### C DP, LIP, CP, TROPI #### [facility] [address] [place], [place] 3590583 Telephone Operator Receptionist: Jordon Tai MD Anion gap [Moles/Vol] 12 mmol/L Normal 9-17 [facility] Comment on above: Performed By: #### C DP, LIP, CP, TROPI #### [address] [place], [place] 0932983 Telephone Operator Receptionist: Jordon Tai MD AST [Catalytic activity/Vol] 20 U/L Normal <32 [facility] Comment on above: Performed By: #### C DP, LIP, CP, TROPI #### [facility] [address] [place], [place] 8356383 Telephone Operator Receptionist: Jordon Tai MD Bilirubin [Mass/Vol] 0.4 mg/dL Normal 0.3-1.2 [facility] Comment on above: Performed By: #### C DP, LIP, CP, TROPI #### [facility] [address] [place], [place] 8153283 Telephone Operator Receptionist: Jordon Tai MD BUN/CRE Ratio 9 Normal 9-20 [facility] Comment on above: Performed By: #### C DP, LIP, CP, TROPI #### [facility] [address] [place] [address] Telephone Operator Receptionist: Jordon Tai MD Calcium [Mass/Vol] 9.1 mg/dL Normal 8.6-10.4 [facility] Comment on above: Performed By: #### C DP, LIP, CP, TROPI #### [facility] [address] [place], [place] 903[address]83 Telephone Operator Receptionist: Jordon Tai MD Chloride [Moles/Vol] 98 mmol/L Normal 98-107 [facility] Comment on above: Performed By: #### C DP, LIP, CP, TROPI #### [facility] [address] [place] [address] [place] [address] Telephone Operator Receptionist: Jordon Tai MD CO2 [Moles/Vol] 28 mmol/L Normal 20-31 [facility] Comment on above: Performed By: #### C DP, LIP, CP, TROPI #### [facility] [address] [place], [place] 9692883 Telephone Operator Receptionist: Jordon Tai MD Creatinine [Mass/Vol] 0.8 mg/dL Normal 0.5-0.9 [facility] Comment on above: Performed By: #### C DP, LIP, CP, TROPI #### [facility] [address] [place], [place] [phone] Telephone Operator Receptionist: Jordon Tai MD GFR/1.73 sq M.predicted among non-blacks MDRD (S/P/Bld) [Vol rate/Area] mL/min/{1.73_m2} Normal >60 [facility] Comment on above: Result Comment: These results are not intended for use in patients <18 years of age. eGFR results are calculated without a race factor using the 2020 CKD-EPI equation. Careful clinical correlation is recommended, particularly when comparing to results calculated using previous equations. The CKD-EPI equation is less accurate in patients with extremes of muscle mass, extra-renal metabolism of creatine, excessive creatine ingestion, or following therapy that affects renal tubular secretion. Performed By: #### C DP, LIP, CP, TROPI #### [address] [place] [address] Telephone Operator Receptionist: Jordon Tai MD Glucose [Mass/Vol] 87 mg/dL Normal 70-99 [facility] Comment on above: Performed By: #### C DP, LIP, CP, TROPI #### [facility] [address] [place] [address] Telephone Operator Receptionist: Jordon Tai MD Potassium [Moles/Vol] 3.3 mmol/L Low 3.7-5.3 [facility] Comment on above: Performed By: #### C DP, LIP, CP, TROPI #### [address] [place] [address] Telephone Operator Receptionist: Jordon Tai MD Protein [Mass/Vol] 7.1 g/dL Normal 6.4-8.3 [facility] Comment on above: Performed By: #### C DP, LIP, CP, TROPI #### [address] [place] [address] Telephone Operator Receptionist: Jordon Tai MD Sodium [Moles/Vol] 138 mmol/L Normal 135-144 [facility] Comment on above: Performed By: #### C DP, LIP, CP, TROPI #### [address] [place] [address] Telephone Operator Receptionist: Jordon Tai MD Urea nitrogen [Mass/Vol] 7 mg/dL Normal 6-20 [facility] Comment on above: Performed By: #### C DP, LIP, CP, TROPI #### [address] [place] [address] Telephone Operator Receptionist: Jordon Tai MD HCG, ,Urineon 08-16 Beta HCG ( test) Ql (U) Negative Normal NEG [facility] Comment on above: Result Comment: Spec imens with hCG levels near the threshold of the test (25 mIU/mL) may give a negative or indeterminate result. In such cases, another test should be performed with a new specimen in 48-72 hours. If early is suspected clinically in this setting, correlation with quantitative serum b-hCG level is suggested. [facility] has confirmed the use of plasma for this test. This has not been cleared or approved by the U.S. Food and Drug Administration. The FDA has determined that such clearance is not necessary. Performed By: #### [facility], [facility] [place] #### [facility] [address] [place] [address] Telephone Operator Receptionist: Jordon Tai MD Lactic Acidon 08-16-2023 Lactate [Moles/Vol] 1.3 mmol/L Normal 0.5-2.2 [facility] Comment on above: Performed By: #### C DP, LIP, CP, TROPI #### [facility] [address] [place], [place] [id number] Telephone Operator Receptionist: Jordon Tai MD Lipaseon Lipase [Catalytic activity/Vol] 24 U/L Normal 13-60 [facility] Comment on above: Performed By: #### C DP, LIP, CP, TROPI #### [facility] [address] [place] [address] Telephone Operator Receptionist: Jordon Tai MD Troponinon 08-16-2023 Troponin, High Sens <6 Normal 0-14 [facility] Comment on above: Result Comment: High Sensitivity Troponin values cannot be compared with other Troponin methodologies. Performed By: #### C DP, LIP, CP, TROPI #### [facility] [address] [place] [address] Telephone Operator Receptionist: Jordon Tai MD Urinalysis w/ Microon 2023 Bacteria TRACE Abnormal NONE [facility] Comment on above: Performed By: #### B MP, CBC #### [facility] [address] [place], [place] 848[address]83 Telephone Operator Receptionist: Jordon Tai MD Bilirubin, SemiQt,Ur Negative Normal NEG [facility] Comment on above: Performed By: #### B MP, CBC #### [facility] [address] [place], [place] 988[address]83 Telephone Operator Receptionist: Jordon Tai MD Blood, Urine Negative Normal NEG [facility] Comment on above: Performed By: #### B MP, CBC #### [address] [place] [id number] Telephone Operator Receptionist: Jordon Tai MD Clarity (U) Clear Normal [facility] Comment on above: Performed By: #### B MP, CBC #### [address] [place] [id number] Telephone Operator Receptionist: Jordon Tai MD Color (U) Yellow Normal YEL [facility] Comment on above: Performed By: #### B MP, CBC #### [address] [place] [id number] Telephone Operator Receptionist: Jordon Tai MD Epithelial cells LM Ql (Urine sed) 0 TO 2 Normal 0-25 [facility] Comment on above: Performed By: #### B MP, CBC #### [facility] [address] [place] [address] Dr. [place], [facility]83 Telephone Operator Receptionist: Jordon Tai MD Glucose Ql (U) Negative Normal NEG [facility] in Hospital Comment on above: Performed By: #### B MP, CBC #### [address] [place] [address] Telephone Operator Receptionist: Jordon Tai MD Ketones Ql (U) Negative Normal NEG [facility] in Hospital Comment on above: Performed By: #### B MP, CBC #### [facility] [address] [place] [address] Dr. [place], [place] [id number] Telephone Operator Receptionist: Jordon Tai MD Leukocyte esterase Test strip Ql (U) Negative Normal NEG [facility] Comment on above: Performed By: #### B MP, CBC #### [facility] [address] [place], [place] [id number] Telephone Operator Receptionist: Jordon Tai MD Nitrite,Ur Negative Normal NEG [facility] Comment on above: Performed By: #### B MP, CBC #### [facility] [address] [place], [place] [id number] Telephone Operator Receptionist: Jordon Tai MD PH,Ur 6.0 Normal 5.0-9.0 [facility] Comment on above: Performed By: #### B MP, CBC #### [address] [place], [place] [id number] Telephone Operator Receptionist: Jordon Tai MD Protein Ql (U) Negative Normal NEG [facility] Comment on above: Performed By: #### B MP, CBC #### [address] [place], [place] [id number] Telephone Operator Receptionist: Jordon Tai MD Spec. [place],Ur 1.010 Normal 1.010-1.02 0 [facility] Comment on above: Performed By: #### B MP, CBC #### [facility] [address] [place], [place] [address] Telephone Operator Receptionist: Jordon Tai MD Urine RBC's 0 TO 2 Normal 0-2 [facility] Comment on above: Performed By: #### B MP, CBC #### [facility] [address] [place], [place] [id number] Telephone Operator Receptionist: Jordon Tai MD Urine WBC's 0 TO 2 Normal 0-5 [facility] Comment on above: Performed By: #### B MP, CBC #### [facility] [address] [place] [address] Telephone Operator Receptionist: Jordon Tai MD Urobilinogen,Ur Normal Normal 0.0-1.0 [facility] Comment on above: Performed By: #### B MP, CBC #### [facility] [address] [place] [address] Telephone Operator Receptionist: Jordon Tai MD CT ABDOMEN PELVIS W IV CONTR Zaire 08-13-2023 CT ABDOMEN PELVIS W IV CONTRAST EXAMINATION: CT OF THE ABDOMEN AND PELVIS WITH CONTRAST 08/12/2023 4:04 pm TECHNIQUE: CT of the abdomen and pelvis was performed with the administration of intravenous contrast. Multiplanar reformatted images are provided for review. Automated exposure control, iterative reconstruction, and/or weight based adjustment of the mA/kV was utilized to reduce the radiation dose to as low as reasonably achievable. COMPARISON: 07/28/2022 HISTORY: ORDERING SYSTEM PROVIDED HISTORY: Upper abd pain TECHNOLOGIST PROVIDED HISTORY: Upper abd pain Decision Support Exception - unselect if not a suspected or confirmed emergency medical condition->Emergency Medical Condition (MA) FINDINGS: Lower Chest: No active disease. Organs: The liver demonstrates fatty infiltration but no focal disease. The gallbladder, pancreas and spleen, adrenals, kidneys, aorta and IVC appear stable. No obstructive uropathy or ureteric stones. GI/Bowel: No evidence of bowel obstruction or perforation. Normal appendix. No acute diverticulitis or enteritis. Pelvis: The urinary bladder appears unremarkable. Status post hysterectomy. No evidence of hernias or lymphadenopathy. Peritoneum/Retroperitone um: No evidence of retroperitoneal lymphadenopathy. Mild fat containing periumbilical hernia. Bones/Soft Tissues: No acute abnormality. Stable posterior fusion at L5-S1. Intradiscal elements also seen at L3-4 and L4-5. Normal alignment. IMPRESSION: 1. No acute intra-abdominal or pelvic process. 2. Fatty liver. Status post cholecystectomy. Status post hysterectomy. 3. Mild fat containing periumbilical hernia. Interpreted by: Viri Frey MD Signed by: Viri Frey MD 08/13/23 Final result Normal [facility] CBC with Auto Differentialon 08-12-2023 Basophils (Bld) [#/Vol] 0.06 10*3/uL [facility] Basophils/100 WBC (Bld) 1 % 0 - 2 % [facility] Eosinophils (Bld) [#/Vol] 0.11 10*3/uL [facility] Eosinophils/100 WBC (Bld) 1 % 1 - 4 % [facility] Erythrocyte distribution width (RBC) [Ratio] 11.9 % 11.8 - 14.4 % [facility] Hematocrit (Bld) [Volume fraction] 40.3 % 36.3 - 47.1 % [facility] Hemoglobin (Bld) [Mass/Vol] 14.3 g/dL 11.9 - 15.1 g/dL [facility] Immature granulocytes (Bld) [#/Vol] 0.04 10*3/uL [facility] Immature granulocytes/100 WBC (Bld) 0 % 0 [facility] Interpretation and review of laboratory results Abnormal [facility] Lymphocytes/100 WBC (Bld) 31 % 24 - 43 % [facility] Lymphocytes/100 WBC (Bld) 3.27 % [facility] MCH (RBC) [Entitic mass] 30.0 pg 25.2 - 33.5 pg [facility] MCHC (RBC) [Mass/Vol] 35.5 g/dL High 28.4 - 34.8 g/dL [facility] MCV (RBC) [Entitic vol] 84.5 fL 82.6 - 102.9 fL [facility] Monocytes/100 WBC (Bld) 7 % 3 - 12 % [facility] Monocytes/100 WBC (Bld) 0.69 % [facility] Neutrophils/100 WBC (Bld) 60 % 36 - 65 % [facility] Nucleated RBC/100 WBC (Bld) [Ratio] 0.0 % 0.0 per 100 WBC [facility] Platelet mean volume (Bld) [Entitic vol] 9.3 fL 8.1 - 13.5 fL [facility] Platelets (Bld) [#/Vol] 381 10*3/uL [facility] RBC (Bld) [#/Vol] 4.77 10*6/uL 3.95 - 5.11 m/uL [facility] Segmented neutrophils/100 WBC (Bld) 6.23 % [facility] WBC other (Bld) [#/Vol] 10.4 [facility] CBC with Diffon 08-12-2023 Abs. Basophil 0.06 k/uL Normal 0.00-0.20 [facility] Comment on above: Performed By: #### C DP, LIP, CP, TROPI #### [facility] [address] [place] [address] Dr. [place], [place] [address] Telephone Operator Receptionist: Jordon Tai MD Abs.Imm.Granulocyte 0.04 k/uL Normal 0.00-0.30 [facility] Comment on above: Performed By: #### C DP, LIP, CP, TROPI #### [address] [place], [facility]83 Telephone Operator Receptionist: Jordon Tai MD Abs.Neutrophil (Seg) 6.23 k/uL Normal 1.50-8.10 [facility] Comment on above: Performed By: #### C DP, LIP, CP, TROPI #### [address] [place], [place] [address] Telephone Operator Receptionist: Jordon Tai MD Basophils/100 WBC (Bld) 1 % Normal 0-2 [facility] Comment on above: Performed By: #### C DP, LIP, CP, TROPI #### [address] [place], [place] [address] Telephone Operator Receptionist: Jordon Tai MD Eosinophils (Bld) [#/Vol] 0.11 10*3/uL Normal 0.00-0.44 [facility] Comment on above: Performed By: #### C DP, LIP, CP, TROPI #### [facility] [address] [place], [place] [id number] Telephone Operator Receptionist: Jordon Tai MD Eosinophils/100 WBC (Bld) 1 % Normal 1-4 [facility] Comment on above: Performed By: #### C DP, LIP, CP, TROPI #### [address] [place], [place] [address] Telephone Operator Receptionist: Jordon Tai MD Erythrocyte distribution width (RBC) [Ratio] 11.9 % Normal 11.8-14.4 [facility] Comment on above: Performed By: #### C DP, LIP, CP, TROPI #### [address] [place], [place] [address] Telephone Operator Receptionist: Jordon Tai MD Hematocrit (Bld) [Volume fraction] 40.3 % Normal 36.3-47.1 [facility] Comment on above: Performed By: #### C DP, LIP, CP, TROPI #### [address] [place], [place] [address] Telephone Operator Receptionist: Jordon Tai MD Hemoglobin (Bld) [Mass/Vol] 14.3 g/dL Normal 11.9-15.1 [facility] Comment on above: Performed By: #### C DP, LIP, CP, TROPI #### [address] [place], [place] [address] Telephone Operator Receptionist: Jordon Tai MD Immature granulocytes/100 WBC (Bld) 0 % Normal 0 [facility] Comment on above: Performed By: #### C DP, LIP, CP, TROPI #### [address] [place], [place] [address] Telephone Operator Receptionist: Jordon Tai MD Lymphocytes (Bld) [#/Vol] 3.27 10*3/uL Normal 1.10-3.70 [facility] Comment on above: Performed By: #### C DP, LIP, CP, TROPI #### [address] [place], [facility]83 Telephone Operator Receptionist: Jordon Tai MD Lymphocytes/100 WBC (Bld) 31 % Normal 24-43 [facility] Comment on above: Performed By: #### C DP, LIP, CP, TROPI #### [address] [place], [place] 1033583 Telephone Operator Receptionist: Jordon Tai MD MCH (RBC) [Entitic mass] 30.0 pg Normal 25.2-33.5 [facility] Comment on above: Performed By: #### C DP, LIP, CP, TROPI #### [address] [place] [address] Telephone Operator Receptionist: Jordon Tai MD MCHC (RBC) [Mass/Vol] 35.5 g/dL High 28.4-34.8 [facility] Comment on above: Performed By: #### C DP, LIP, CP, TROPI #### [address] [place] [address] Telephone Operator Receptionist: Jordon Tai MD MCV (RBC) [Entitic vol] 84.5 fL Normal 82.6-102.9 [facility] Comment on above: Performed By: #### C DP, LIP, CP, TROPI #### [address] [place] [address] Telephone Operator Receptionist: Jordon Tai MD Monocytes (Bld) [#/Vol] 0.69 10*3/uL Normal 0.10-1.20 [facility] Comment on above: Performed By: #### C DP, LIP, CP, TROPI #### [address] [place], [facility]89 ( Telephone Operator Receptionist: Jordon Tai MD Monocytes/100 WBC (Bld) 7 % Normal 3-12 M [facility] Comment on above: Performed By: #### C DP, LIP, CP, TROPI #### [address] [place], [place] [id number] Telephone Operator Receptionist: Jordon Tai MD Neutrophil (Seg) 60 % Normal 36-65 [facility] Comment on above: Performed By: #### C DP, LIP, CP, TROPI #### [facility] [address] [place] [address] Telephone Operator Receptionist: Jordon Tai MD NRBC Automated 0.0 per 100 WBC Normal 0.0 [facility] Comment on above: Performed By: #### C DP, LIP, CP, TROPI #### [facility] [address] [place], [place] [address] Telephone Operator Receptionist: Jordon Tai MD Platelet mean volume (Bld) [Entitic vol] 9.3 fL Normal 8.1-13.5 [facility] Comment on above: Performed By: #### C DP, LIP, CP, TROPI #### [address] [place], [facility]83 Telephone Operator Receptionist: Jordon Tai MD Platelets (Bld) [#/Vol] 381 10*3/uL Normal 138-453 [facility] Comment on above: Performed By: #### C DP, LIP, CP, TROPI #### [address] [place], [place] [address] Telephone Operator Receptionist: Jordon Tai MD RBC (Bld) [#/Vol] 4.77 10*6/uL Normal 3.95-5.11 [facility] Comment on above: Performed By: #### C DP, LIP, CP, TROPI #### [address] [place], [facility]83 Telephone Operator Receptionist: Jordon Tai MD WBC (Bld) [#/Vol] 10.4 10*3/uL Normal 3.5-11.3 [facility] Comment on above: Performed By: #### C DP, LIP, CP, TROPI #### [address] [place] [address] Telephone Operator Receptionist: Jordon Tai MD Comp Metabolic Profon 2023 Albumin [Mass/Vol] 4.3 g/dL Normal 3.5-5.2 [facility] Comment on above: Performed By: #### C DP, LIP, CP, TROPI #### [address] [place] [address] Telephone Operator Receptionist: Jordon Tai MD ALT [Catalytic activity/Vol] 34 U/L High 5-33 [facility] Comment on above: Performed By: #### C DP, LIP, CP, TROPI #### [address] [place], [place] [address]249183 Telephone Operator Receptionist: Jordon Tai MD Anion gap [Moles/Vol] 16 mmol/L Normal 9-17 [facility] Comment on above: Performed By: #### C DP, LIP, CP, TROPI #### [address] [place] [address] Telephone Operator Receptionist: Jordon Tai MD AST [Catalytic activity/Vol] 21 U/L Normal <32 [facility] Comment on above: Performed By: #### C DP, LIP, CP, TROPI #### [address] [place] [address] Telephone Operator Receptionist: Jordon Tai MD Bilirubin [Mass/Vol] 0.4 mg/dL Normal 0.3-1.2 [facility] Comment on above: Performed By: #### C DP, LIP, CP, TROPI #### [address] [place], [place] [id number] Telephone Operator Receptionist: Jordon Tai MD Calcium [Mass/Vol] 9.0 mg/dL Normal 8.6-10.4 [facility] Comment on above: Performed By: #### C DP, LIP, CP, TROPI #### [address] [place] [address] Telephone Operator Receptionist: Jordon Tai MD Chloride [Moles/Vol] 96 mmol/L Low 98-107 [facility] Comment on above: Performed By: #### C DP, LIP, CP, TROPI #### [address] [place] [address] Telephone Operator Receptionist: Jordon Tai MD CO2 [Moles/Vol] 24 mmol/L Normal 20-31 [facility] Comment on above: Performed By: #### C DP, LIP, CP, TROPI #### [address] [place], [place] 5796383 Telephone Operator Receptionist: Jordon Tai MD Creatinine [Mass/Vol] 0.7 mg/dL Normal 0.5-0.9 [facility] Comment on above: Performed By: #### C DP, LIP, CP, TROPI #### [address] [place] [address] Telephone Operator Receptionist: Jordon Tai MD Glucose [Mass/Vol] 106 mg/dL High 70-99 [facility] Comment on above: Performed By: #### C DP, LIP, CP, TROPI #### [address] [place] [address] Telephone Operator Receptionist: Jordon Tai MD Potassium [Moles/Vol] 3.3 mmol/L Low 3.7-5.3 [facility] Comment on above: Performed By: #### C DP, LIP, CP, TROPI #### [address] [place] [address] Telephone Operator Receptionist: Jordon Tai MD Protein [Mass/Vol] 7.3 g/dL Normal 6.4-8.3 [facility] Comment on above: Performed By: #### C DP, LIP, CP, TROPI #### [address] [place] [address] Telephone Operator Receptionist: Jordon Tai MD Sodium [Moles/Vol] 136 mmol/L Normal 135-144 [facility] Comment on above: Performed By: #### C DP, LIP, CP, TROPI #### [facility] [address] [place], [place] 0297483 Telephone Operator Receptionist: Jordon Tai MD Urea nitrogen [Mass/Vol] 6 mg/dL Normal 6-20 [facility] Comment on above: Performed By: #### C DP, LIP, CP, TROPI #### [facility] [address] [place], [place] [id number] Telephone Operator Receptionist: Jordon Tai MD Albumin/Glob Ratio 1.4 Normal 1.0-2.5 [facility] Comment on above: Performed By: #### C DP, LIP, CP, TROPI #### [facility] [address] [place], [place] [id number] Telephone Operator Receptionist: Jordon Tai MD Alkaline Phos 111 U/L High 35-104 [facility] Comment on above: Performed By: #### C DP, LIP, CP, TROPI #### [facility] [address] [place], [place] [address] Telephone Operator Receptionist: Jordon Tai MD BUN/CRE Ratio 9 Normal 9-20 [facility] Comment on above: Performed By: #### C DP, LIP, CP, TROPI #### [facility] [address] [place], [place] [id number] Telephone Operator Receptionist: Jordon Tai MD GFR/1.73 sq M.predicted among non-blacks MDRD (S/P/Bld) [Vol rate/Area] mL/min/{1.73_m2} Normal >60 [facility] Comment on above: Result Comment: These results are not intended for use in patients <18 years of age. eGFR results are calculated without a race factor using the 2020 CKD-EPI equation. Careful clinical correlation is recommended, particularly when comparing to results calculated using previous equations. The CKD-EPI equation is less accurate in patients with extremes of muscle mass, extra-renal metabolism of creatine, excessive creatine ingestion, or following therapy that affects renal tubular secretion. Performed By: #### C DP, LIP, CP, TROPI #### [facility] [address] [place] [address] Telephone Operator Receptionist: Jordon Tai MD Comprehensive Metabolic Pane misti 08-12-2023 Albumin/Globulin [Mass ratio] 1.4 {ratio} 1.0 - 2.5 [facility] ALP [Catalytic activity/Vol] 111 U/L High 35 - 104 U/L [facility] GFR/1.73 sq M.predicted MDRD (S/P/Bld) [Vol rate/Area] - PINF [facility] Comment on above: These results are not intended for use in patients <18 years of age. eGFR results are calculated without a race factor using the 2020 CKD-EPI equation. Careful clinical correlation is recommended, particularly when comparing to results calculated using previous equations. The CKD-EPI equation is less accurate in patients with extremes of muscle mass, extra-renal metabolism of creatine, excessive creatine ingestion, or following therapy that affects renal tubular secretion. Interpretation and review of laboratory results Abnormal [facility] Urea nitrogen/Creatinine [Mass ratio] 9 mg/mg 9 - 20 [facility] Lipaseon 08-12-2023 Lipase [Catalytic activity/Vol] 22 U/L Normal 13-60 [facility] Comment on above: Performed By: #### C DP, LIP, CP, TROPI #### [address] [place] [address] Telephone Operator Receptionist: Jordon Tai MD No Panel Informationon 08-12 [facility] Portable XR Chest AP single viewon 08-12-2023 No radiographic evid ence of acute cardiopulmonary disease. Chronic appearing coarse interstitial densities predominate perihilar regions and lung bases, typical of sequela from smoking or other previous infectious/inflammatory process. [facility] RIS CONSOLIDATED EXAMINATION: ONE XRAY VIEW OF THE CHEST 08/12/2023 3:44 pm COMPARISON: None. HISTORY: Epigastric pain FINDINGS: The cardiomediastinal and hilar silhouettes appear unremarkable. Chronic appearing coarse interstitial densities predominate perihilar regions and lung bases, typical of sequela from smoking or other previous infectious/inflammatory process. The lungs appear otherwise clear. No pleural effusion evident. No pneumothorax is seen. No acute osseous abnormality is identified. Implantable loop recorder device demonstrated over the central mid upper left chest. [facility] RIS Rickey Rivera MD - 08/12/2023 EXAMINATION: ONE XRAY VIEW OF THE CHEST 08/12/2023 3:44 pm COMPARISON: None. HISTORY: Epigastric pain FINDINGS: The cardiomediastinal and hilar silhouettes appear unremarkable. Chronic appearing coarse interstitial densities predominate perihilar regions and lung bases, typical of sequela from smoking or other previous infectious/inflammatory process. The lungs appear otherwise clear. No pleural effusion evident. No pneumothorax is seen. No acute osseous abnormality is identified. Implantable loop recorder device demonstrated over the central mid upper left chest. IMPRESSION: No radiographic evidence of acute cardiopulmonary disease. Chronic appearing coarse interstitial densities predominate perihilar regions and lung bases, typical of sequela from smoking or other previous infectious/inflammatory process. [facility] Radiology Study observation (narrative) [facility] Portable XR Chest AP single viewOrdered By: Rickey Kwan on 08-12-2023 [facility] Work Phone: Troponinon 08-12-2023 Troponin I.cardiac High sensitivity method [Mass/Vol] ng/L 0 - 14 ng/L [facility] Comment on above: High Sensitivity Tro ponin values cannot be compared with other Troponin methodologies. [facility] Troponin, High Sens <6 Normal 0-14 [facility] Comment on above: Result Comment: High Sensitivity Troponin values cannot be compared with other Troponin methodologies. Performed By: #### C DP, LIP, CP, TROPI #### [facility] [address] [place] [address] Telephone Operator Receptionist: Jordon Tai MD XR CHEST PORTABLEon 08-12-19 24 XR CHEST PORTABLE EXAMINATION: ONE XRAY VIEW OF THE CHEST 08/12/2023 3:44 pm COMPARISON: None. HISTORY: Epigastric pain FINDINGS: The cardiomediastinal and hilar silhouettes appear unremarkable. Chronic appearing coarse interstitial densities predominate perihilar regions and lung bases, typical of sequela from smoking or other previous infectious/inflammatory process. The lungs appear otherwise clear. No pleural effusion evident. No pneumothorax is seen. No acute osseous abnormality is identified. Implantable loop recorder device demonstrated over the central mid upper left chest. IMPRESSION: No radiographic evidence of acute cardiopulmonary disease. Chronic appearing coarse interstitial densities predominate perihilar regions and lung bases, typical of sequela from smoking or other previous infectious/inflammatory process. Interpreted by: Rickey Kwan MD Signed by: Rickey Kwan MD 08/12/23 Final result Normal [facility] Rapid Strep Screenon 024 Specimen source Nom (Unsp spec) .THROAT SWAB [facility] Strep A, Molecular Negative NEGATIVE [facility] Strep Group A, Rapidon 07-20 Strep A, Molecular Negative Normal NEG [facility] Comment on above: Performed By: #### C DP, LIP, CP, TROPI #### [facility] [address] [place] [address] [place] [address] Telephone Operator Receptionist: Jordon Tai MD Source .THROAT SWAB Normal [facility] Comment on above: Performed By: #### C DP, LIP, CP, TROPI #### [facility] [address] [place] [address] [place] [address] Telephone Operator Receptionist: Jordon Tai MD Lipid Profileon 04-29-2023 Cholesterol [Mass/Vol] 148 mg/dL Normal <200 [facility] Comment on above: Result Comment: Cholesterol Guidelines: <200 Desirable 200-240 Borderline >240 Undesirable Performed By: #### C DP, LIP, CP, TROPI #### [facility] [address] [place] [address] Telephone Operator Receptionist: Jordon Tai MD Cholesterol in HDL [Mass/Vol] 39 mg/dL Low >40 [facility] Comment on above: Result Comment: HDL Guidelines: <40 Undesirable 40-59 Borderline >59 Desirable Performed By: #### C DP, LIP, CP, TROPI #### [facility] [address] [place], [place] [id number] Telephone Operator Receptionist: Jordon Tai MD Cholesterol in LDL [Mass/Vol] 61 mg/dL Normal 0-130 [facility] Comment on above: Result Comment: LDL Guidelines: <100 Desirable 100-129 Near to/above Desirable 130-159 Borderline >159 Undesirable Direct (measured) LDL and calculated LDL are not interchangeable tests. Performed By: #### C DP, LIP, CP, TROPI #### [facility] [address] [place] [address] Telephone Operator Receptionist: Jordon Tai MD Cholesterol.total/Audelia sterol in HDL [Mass ratio] 3.8 {ratio} Normal <5 [facility] Comment on above: Performed By: #### C DP, LIP, CP, TROPI #### [facility] [address] [place], [place] 1897[address] Telephone Operator Receptionist: Jordon Tai MD Triglyceride [Mass/Vol] 240 mg/dL High <150 [facility] [facility] Comment on above: Result Comment: Triglyceride Guidelines: <150 Desirable 150-199 Borderline 200-499 High >499 Very high Based on AHA Guidelines for fasting triglyceride, April 2012. Performed By: #### C DP, LIP, CP, TROPI #### [address] [place], [place] [id number] Telephone Operator Receptionist: Jordon Tai MD Troponinon 04-29-2023 Troponin, High Sens <6 Normal 0-14 [facility] Comment on above: Result Comment: High Sensitivity Troponin values cannot be compared with other Troponin methodologies. Performed By: #### C DP, LIP, CP, TROPI #### [facility] [address] [place] [address] Telephone Operator Receptionist: Jordon Tai MD CBC with Diffon 04-24-2023 Abs. Basophil 0.04 k/uL Normal 0.00-0.20 [facility] Comment on above: Performed By: #### B MP, CBC #### [facility] [address] [place], [place] [id number] Telephone Operator Receptionist: Jordon Tai MD Abs.Imm.Granulocyte <0.03 Normal 0.00-0.30 [facility] Comment on above: Performed By: #### B MP, CBC #### [address] [place] [id number] Telephone Operator Receptionist: Jordon Tai MD Abs.Neutrophil (Seg) 3.01 k/uL Normal 1.50-8.10 [facility] Comment on above: Performed By: #### B MP, CBC #### [address] [place] [id number] Telephone Operator Receptionist: Jordon Tai MD Basophils/100 WBC (Bld) 1 % Normal 0-2 [facility] Comment on above: Performed By: #### B MP, CBC #### [address] [place] [address] Telephone Operator Receptionist: Jordon Tai MD Eosinophils (Bld) [#/Vol] 0.08 10*3/uL Normal 0.00-0.44 [facility] Comment on above: Performed By: #### B MP, CBC #### [address] [place] [id number] Telephone Operator Receptionist: Jordon Tai MD Eosinophils/100 WBC (Bld) 1 % Normal 1-4 [facility] Comment on above: Performed By: #### B MP, CBC #### [address] [place], [place] 0[address]83 Telephone Operator Receptionist: Jordon Tai MD Erythrocyte distribution width (RBC) [Ratio] 11.8 % Normal 11.8-14.4 [facility] Comment on above: Performed By: #### B MP, CBC #### [address] [place] [id number] Telephone Operator Receptionist: Jordon Tai MD Hematocrit (Bld) [Volume fraction] 37.0 % Normal 36.3-47.1 [facility] Comment on above: Performed By: #### B MP, CBC #### [facility] [address] [place] [address] [place], [place] [id number] Telephone Operator Receptionist: Jordon Tai MD Hemoglobin (Bld) [Mass/Vol] 13.1 g/dL Normal 11.9-15.1 [facility] Comment on above: Performed By: #### B MP, CBC #### [facility] [address] [place] [address] [place], [place] 4604483 Telephone Operator Receptionist: Jordon Tai MD Immature granulocytes/100 WBC (Bld) 0 % Normal 0 [facility] Comment on above: Performed By: #### B RUPAL, CBC #### [address] [place] [address] Telephone Operator Receptionist: Jordon Tai MD Lymphocytes (Bld) [#/Vol] 2.16 10*3/uL Normal 1.10-3.70 [facility] Comment on above: Performed By: #### B RUPAL, CBC #### [address] [place] [address] Telephone Operator Receptionist: Jordon Tai MD Lymphocytes/100 WBC (Bld) 37 % Normal 24-43 [facility] Comment on above: Performed By: #### B MP, CBC #### [facility] [address] [place] [address] [place], [place] [id number] Telephone Operator Receptionist: Jordon Tai MD MCH (RBC) [Entitic mass] 31.3 pg Normal 25.2-33.5 [facility] Comment on above: Performed By: #### B MP, CBC #### [address] [place] [address] Telephone Operator Receptionist: Jordon Tai MD MCHC (RBC) [Mass/Vol] 35.4 g/dL High 28.4-34.8 [facility] Comment on above: Performed By: #### B MP, CBC #### [facility] [address] [place], [place] [address] Telephone Operator Receptionist: Jordon Tai MD MCV (RBC) [Entitic vol] 88.5 fL Normal 82.6-102.9 [facility] Comment on above: Performed By: #### B MP, CBC #### [facility] [address] [place], [facility]83 Telephone Operator Receptionist: Jordon Tai MD Monocytes (Bld) [#/Vol] 0.46 10*3/uL Normal 0.10-1.20 [facility] Comment on above: Performed By: #### B MP, CBC #### [address] [place], [facility]83 Telephone Operator Receptionist: Jordon Tai MD Monocytes/100 WBC (Bld) 8 % Normal 3-12 [facility] Comment on above: Performed By: #### B MP, CBC #### [address] [place], [facility]83 Telephone Operator Receptionist: Jordon Tai MD Neutrophil (Seg) 52 % Normal 36-65 [facility] Comment on above: Performed By: #### B MP, CBC #### [address] [place], [place] [address] Telephone Operator Receptionist: Jordon Tai MD NRBC Automated 0.0 per 100 WBC Normal 0.0 [facility] Comment on above: Performed By: #### B MP, CBC #### [address] [place] [id number] Telephone Operator Receptionist: Jordon Tai MD Platelet Count See Reflexed IPF Result Normal 138-453 [facility] Comment on above: Performed By: #### B MP, CBC #### [facility] [address] [place] [address] Telephone Operator Receptionist: Jordon Tai MD Platelet, Fluoresc. 205 k/uL Normal 138-453 [facility] Comment on above: Performed By: #### B MP, CBC #### [facility] [address] [place] [id number] Telephone Operator Receptionist: Jordon Tai MD PLT, Immature Fract. 10.1 % Normal 1.1-10.3 [facility] Comment on above: Performed By: #### B MP, CBC #### [facility] [address] [place] [address] Telephone Operator Receptionist: Jordon Tai MD RBC (Bld) [#/Vol] 4.18 10*6/uL Normal 3.95-5.11 [facility] Comment on above: Performed By: #### B RUPAL, CBC #### [address] [place] [id number] Telephone Operator Receptionist: Jordon Tai MD WBC (Bld) [#/Vol] 5.8 10*3/uL Normal 3.5-11.3 [facility] Comment on above: Performed By: #### B RUPAL, CBC #### [address] [place] [id number] Telephone Operator Receptionist: Jordon Tai MD CTA HEAD NECK W CONTRASTon 1 CTA HEAD NECK W CONTRAST EXAMINATION: CTA OF THE HEAD AND NECK WITH CONTRAST 04/23/2023 4:59 pm: TECHNIQUE: CTA of the head and neck was performed with the administration of intravenous contrast. Multiplanar reformatted images are provided for review. MIP images are provided for review. Stenosis of the internal carotid arteries measured using NASCET criteria. Automated exposure control, iterative reconstruction, and/or weight based adjustment of the mA/kV was utilized to reduce the radiation dose to as low as reasonably achievable. This scan was analyzed using Viz[employer]ai contact LVO. Identification of suspected findings is not for diagnostic use beyond notification. Viz LVO is limited to analysis of imaging data and should not be used in-lieu of full patient evaluation or relied upon to make or confirm diagnosis. COMPARISON: None HISTORY: ORDERING SYSTEM PROVIDED HISTORY: Left arm numbness TECHNOLOGIST PROVIDED HISTORY: Left arm numbness Decision Support Exception - unselect if not a suspected or confirmed emergency medical condition->Emergency Medical Condition (MA) FINDINGS: CTA NECK: AORTIC ARCH/ARCH VESSELS: No dissection or arterial injury. No significant stenosis of the brachiocephalic or subclavian arteries. CAROTID ARTERIES: Noncalcified plaque causes 30% stenosis of the proximal right internal carotid artery. The left internal carotid artery is patent. The common carotid arteries are patent. VERTEBRAL ARTERIES: No dissection, arterial injury, or significant stenosis. SOFT TISSUES: The lung apices are clear. No cervical or superior mediastinal lymphadenopathy. The larynx and pharynx are unremarkable. No acute abnormality of the salivary and thyroid glands. BONES: C6-7 uncovertebral hypertrophy causes severe left foraminal stenosis. C5-6 uncovertebral hypertrophy causes mild left foraminal stenosis. CTA HEAD: ANTERIOR CIRCULATION: No significant stenosis of the intracranial internal carotid, anterior cerebral, or middle cerebral arteries. No aneurysm. POSTERIOR CIRCULATION: No significant stenosis of the vertebral, basilar, or posterior cerebral arteries. No aneurysm. OTHER: No dural venous sinus thrombosis on this non-dedicated study. BRAIN: Findings are separately reported. IMPRESSION: No large vessel occlusion in the head or neck. 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 Interpreted by: Alejandro Keith MD Signed by: Alejandro Keith MD 04/24/23 Final result Normal [facility] Comp Metabolic Pr/rfx MGon 1 Albumin [Mass/Vol] 3.9 g/dL Normal 3.5-5.2 [facility] Comment on above: Performed By: #### B RUPAL, CBC #### [facility] [address] [place] [address] Telephone Operator Receptionist: Jordon Tai MD Albumin/Glob Ratio 1.5 Normal 1.0-2.5 [facility] Comment on above: Performed By: #### B RUPAL, CBC #### [facility] [address] [place] [address] Telephone Operator Receptionist: Jordon Tai MD Alkaline Phos 101 U/L Normal 35-104 [facility] Comment on above: Performed By: #### B MP, CBC #### [facility] [address] [place], [place] [id number] Telephone Operator Receptionist: Jordon Tai MD ALT [Catalytic activity/Vol] 32 U/L Normal 5-33 [facility] Comment on above: Performed By: #### B MP, CBC #### [facility] [address] [place], [place] 0194983 Telephone Operator Receptionist: Jordon Tai MD Anion gap [Moles/Vol] 13 mmol/L Normal 9-17 [facility] Comment on above: Performed By: #### B MP, CBC #### [facility] [address] [place], [place] 0[address]883 Telephone Operator Receptionist: Jordon Tai MD AST [Catalytic activity/Vol] 23 U/L Normal <32 [facility] Comment on above: Performed By: #### B MP, CBC #### [facility] [address] [place], [place] [id number] Telephone Operator Receptionist: Jordon Tai MD Bilirubin [Mass/Vol] 0.3 mg/dL Normal 0.3-1.2 [facility] Comment on above: Performed By: #### B MP, CBC #### [facility] [address] [place], [place] 09[address]83 Telephone Operator Receptionist: Jordon Tai MD BUN/CRE Ratio 9 Normal 9-20 [facility] Comment on above: Performed By: #### B MP, CBC #### [facility] [address] [place], [place] 8643783 Telephone Operator Receptionist: Jordon Tai MD Calcium [Mass/Vol] 9.0 mg/dL Normal 8.6-10.4 [facility] Comment on above: Performed By: #### B MP, CBC #### [facility] [address] [place], [place] 701[address]83 Telephone Operator Receptionist: Jordon Tai MD Chloride [Moles/Vol] 104 mmol/L Normal 98-107 [facility] Comment on above: Performed By: #### B MP, CBC #### [facility] [address] [place] [address] Telephone Operator Receptionist: Jordon Tai MD CO2 [Moles/Vol] 23 mmol/L Normal 20-31 [facility] Comment on above: Performed By: #### B MP, CBC #### [facility] [address] [place] [address] Telephone Operator Receptionist: Jordon Tai MD Creatinine [Mass/Vol] 0.7 mg/dL Normal 0.5-0.9 [facility] Comment on above: Performed By: #### B RUPAL, CBC #### [facility] [address] [place] [address] Telephone Operator Receptionist: Jordon Tai MD GFR/1.73 sq M.predicted among non-blacks MDRD (S/P/Bld) [Vol rate/Area] mL/min/{1.73_m2} Normal >60 [facility] Comment on above: Result Comment: These results are not intended for use in patients <18 years of age. eGFR results are calculated without a race factor using the 2020 CKD-EPI equation. Careful clinical correlation is recommended, particularly when comparing to results calculated using previous equations. The CKD-EPI equation is less accurate in patients with extremes of muscle mass, extra-renal metabolism of creatine, excessive creatine ingestion, or following therapy that affects renal tubular secretion. Performed By: #### B RUPAL, CBC #### [facility] [address] [place] [address] Telephone Operator Receptionist: Jordon Tai MD Glucose [Mass/Vol] 108 mg/dL High 70-99 [facility] Comment on above: Performed By: #### B MP, CBC #### [facility] [address] [place] [address] Telephone Operator Receptionist: Jordon Tai MD Potassium [Moles/Vol] 3.7 mmol/L Normal 3.7-5.3 [facility] Comment on above: Performed By: #### B MP, CBC #### [facility] [address] [place], [place] [id number] Telephone Operator Receptionist: Jordon Tai MD Protein [Mass/Vol] 6.5 g/dL Normal 6.4-8.3 [facility] Comment on above: Performed By: #### B MP, CBC #### [facility] [address] [place] [address] [place], [place] 7805483 Telephone Operator Receptionist: Jordon Tai MD Sodium [Moles/Vol] 140 mmol/L Normal 135-144 [facility] Comment on above: Performed By: #### B RUPAL, CBC #### [address] [place], [place] 1607083 Telephone Operator Receptionist: Jordon Tai MD Urea nitrogen [Mass/Vol] 6 mg/dL Normal 6-20 [facility] Comment on above: Performed By: #### B RUPAL, CBC #### [address] [place], [place] 9510983 Telephone Operator Receptionist: Jordon Tai MD Troponinon 04-24-2023 Troponin, High Sens 25 ng/L High 0-14 [facility] Comment on above: Result Comment: High Sensitivity Troponin values cannot be compared with other Troponin methodologies. Performed By: #### B RUPAL, CBC #### [facility] [address] [place] [address] [place], [place] 9113083 Telephone Operator Receptionist: Jordon Tai MD Basic Metabolic Profon 04-23 Anion gap [Moles/Vol] 13 mmol/L Normal 9-17 [facility] Comment on above: Performed By: #### C DP, LIP, CP, TROPI #### [facility] [address] [place] [address] [place], [place] [id number] Telephone Operator Receptionist: Jordon Tai MD BUN/CRE Ratio 6 Low 9-20 [facility] Comment on above: Performed By: #### C DP, LIP, CP, TROPI #### [facility] [address] [place] [address] Telephone Operator Receptionist: Jordon Tai MD Calcium [Mass/Vol] 9.4 mg/dL Normal 8.6-10.4 [facility] Comment on above: Performed By: #### C DP, LIP, CP, TROPI #### [facility] [address] [place], [place] 014[address]83 Telephone Operator Receptionist: Jordon Tai MD Chloride [Moles/Vol] 102 mmol/L Normal 98-107 [facility] Comment on above: Performed By: #### C DP, LIP, CP, TROPI #### [facility] [address] [place], [place] 8289783 Telephone Operator Receptionist: Jordon Tai MD CO2 [Moles/Vol] 25 mmol/L Normal 20-31 [facility] Comment on above: Performed By: #### C DP, LIP, CP, TROPI #### [facility] [address] [place] [address] Telephone Operator Receptionist: Jordon Tai MD Creatinine [Mass/Vol] 0.7 mg/dL Normal 0.5-0.9 [facility] Comment on above: Performed By: #### C DP, LIP, CP, TROPI #### [facility] [address] [place] [address] Telephone Operator Receptionist: Jordon Tai MD GFR/1.73 sq M.predicted among non-blacks MDRD (S/P/Bld) [Vol rate/Area] mL/min/{1.73_m2} Normal >60 [facility] Comment on above: Result Comment: These results are not intended for use in patients <18 years of age. eGFR results are calculated without a race factor using the 2020 CKD-EPI equation. Careful clinical correlation is recommended, particularly when comparing to results calculated using previous equations. The CKD-EPI equation is less accurate in patients with extremes of muscle mass, extra-renal metabolism of creatine, excessive creatine ingestion, or following therapy that affects renal tubular secretion. Performed By: #### C DP, LIP, CP, TROPI #### [address] [place] [address] Telephone Operator Receptionist: Jordon Tai MD Glucose [Mass/Vol] 118 mg/dL High 70-99 [facility] Comment on above: Performed By: #### C DP, LIP, CP, TROPI #### [address] [place] [address] Telephone Operator Receptionist: Jordon Tai MD Potassium [Moles/Vol] 3.1 mmol/L Low 3.7-5.3 [facility] Comment on above: Performed By: #### C DP, LIP, CP, TROPI #### [address] [place] [address] Telephone Operator Receptionist: Jordon Tai MD Sodium [Moles/Vol] 140 mmol/L Normal 135-144 [facility] Comment on above: Performed By: #### C GRAEME LIP, CP, TROPI #### [address] [place] [address] Telephone Operator Receptionist: Jordon Tai MD Urea nitrogen [Mass/Vol] 4 mg/dL Low 6-20 [facility] Comment on above: Performed By: #### C DP, LIP, CP, TROPI #### [address] [place] [address] Telephone Operator Receptionist: Jordon Tai MD CBC with Diffon 04-23-2023 Abs. Basophil 0.03 k/uL Normal 0.00-0.20 [facility] Comment on above: Performed By: #### C DP, LIP, CP, TROPI #### [address] [place] [address] Telephone Operator Receptionist: Jordon Tai MD Abs.Imm.Granulocyte 0.03 k/uL Normal 0.00-0.30 [facility] Comment on above: Performed By: #### C DP, LIP, CP, TROPI #### [address] [place], [place] [address] Telephone Operator Receptionist: Jordon Tai MD Abs.Neutrophil (Seg) 4.45 k/uL Normal 1.50-8.10 [facility] Comment on above: Performed By: #### C DP, LIP, CP, TROPI #### [address] [place], [place] [address] Telephone Operator Receptionist: Jordon Tai MD Basophils/100 WBC (Bld) 0 % Normal 0-2 [facility] Comment on above: Performed By: #### C DP, LIP, CP, TROPI #### [address] [place], [place] [address] Telephone Operator Receptionist: Jordon Tai MD Eosinophils (Bld) [#/Vol] 0.08 10*3/uL Normal 0.00-0.44 [facility] Comment on above: Performed By: #### C DP, LIP, CP, TROPI #### [address] [place], [facility]83 Telephone Operator Receptionist: Jordon Tai MD Eosinophils/100 WBC (Bld) 1 % Normal 1-4 [facility] Comment on above: Performed By: #### C DP, LIP, CP, TROPI #### [address] [place], [place] [address] Telephone Operator Receptionist: Jordon Tai MD Erythrocyte distribution width (RBC) [Ratio] 11.6 % Low 11.8-14.4 [facility] Comment on above: Performed By: #### C DP, LIP, CP, TROPI #### [address] [place], [facility]83 Telephone Operator Receptionist: Jordon Tai MD Hematocrit (Bld) [Volume fraction] 37.6 % Normal 36.3-47.1 [facility] Comment on above: Performed By: #### C DP, LIP, CP, TROPI #### [address] [place] [address] Telephone Operator Receptionist: Jordon Tai MD Hemoglobin (Bld) [Mass/Vol] 13.5 g/dL Normal 11.9-15.1 [facility] Comment on above: Performed By: #### C DP, LIP, CP, TROPI #### [address] [place] [address] Telephone Operator Receptionist: Jordon Tai MD Immature granulocytes/100 WBC (Bld) 0 % Normal 0 [facility] Comment on above: Performed By: #### C DP, LIP, CP, TROPI #### [address] [place], [place] [address] Telephone Operator Receptionist: Jordon Tai MD Lymphocytes (Bld) [#/Vol] 2.10 10*3/uL Normal 1.10-3.70 [facility] Comment on above: Performed By: #### C DP, LIP, CP, TROPI #### [address] [place], [place] 4103183 Telephone Operator Receptionist: Jordon Tai MD Lymphocytes/100 WBC (Bld) 29 % Normal 24-43 [facility] Comment on above: Performed By: #### C DP, LIP, CP, TROPI #### [address] [place], [facility]83 Telephone Operator Receptionist: Jordon Tai MD MCH (RBC) [Entitic mass] 31.2 pg Normal 25.2-33.5 [facility] Comment on above: Performed By: #### C DP, LIP, CP, TROPI #### [address] [place], [place] [id number] Telephone Operator Receptionist: Jordon Tai MD MCHC (RBC) [Mass/Vol] 35.9 g/dL High 28.4-34.8 [facility] Comment on above: Performed By: #### C DP, LIP, CP, TROPI #### [facility] [address] [place] [address] Telephone Operator Receptionist: Jordon Tai MD MCV (RBC) [Entitic vol] 86.8 fL Normal 82.6-102.9 [facility] Comment on above: Performed By: #### C DP, LIP, CP, TROPI #### [address] [place], [place] 0406983 Telephone Operator Receptionist: Jordon Tai MD Monocytes (Bld) [#/Vol] 0.57 10*3/uL Normal 0.10-1.20 [facility] Comment on above: Performed By: #### C DP, LIP, CP, TROPI #### [address] [place] [address] Telephone Operator Receptionist: Jordon Tai MD Monocytes/100 WBC (Bld) 8 % Normal 3-12 [facility] Comment on above: Performed By: #### C DP, LIP, CP, TROPI #### [address] [place] [address] Telephone Operator Receptionist: Jordon Tai MD Neutrophil (Seg) 62 % Normal 36-65 [facility] Comment on above: Performed By: #### C DP, LIP, CP, TROPI #### [address] [place] [address] Telephone Operator Receptionist: Jordon Tai MD NRBC Automated 0.0 per 100 WBC Normal 0.0 [facility] Comment on above: Performed By: #### C DP, LIP, CP, TROPI #### [facility] [address] [place], [place] 9554183 Telephone Operator Receptionist: Jordon Tai MD Platelet mean volume (Bld) [Entitic vol] 9.9 fL Normal 8.1-13.5 [facility] Comment on above: Performed By: #### C DP, LIP, CP, TROPI #### [facility] [address] [place] [address] [place], [place] 5635783 Telephone Operator Receptionist: Jordon Tai MD Platelets (Bld) [#/Vol] 284 10*3/uL Normal 138-453 [facility] Comment on above: Performed By: #### C DP, LIP, CP, TROPI #### [facility] [address] [place], [place] 7[address]83 Telephone Operator Receptionist: Jordon Tai MD RBC (Bld) [#/Vol] 4.33 10*6/uL Normal 3.95-5.11 [facility] Comment on above: Performed By: #### C DP, LIP, CP, TROPI #### [address] [place], [place] 2245783 Telephone Operator Receptionist: Jordon Tai MD WBC (Bld) [#/Vol] 7.3 10*3/uL Normal 3.5-11.3 [facility] Comment on above: Performed By: #### C DP, LIP, CP, TROPI #### [address] [place], [place] [id number] Telephone Operator Receptionist: Jordon Tai MD CT HEAD WO CONTRASTon 2022 CT HEAD WO CONTRAST EXAMINATION: CT OF THE HEAD WITHOUT CONTRAST 04/23/2023 2:00 pm TECHNIQUE: CT of the head was performed without the administration of intravenous contrast. Automated exposure control, iterative reconstruction, and/or weight based adjustment of the mA/kV was utilized to reduce the radiation dose to as low as reasonably achievable. COMPARISON: None. HISTORY: ORDERING SYSTEM PROVIDED HISTORY: left arm numbness TECHNOLOGIST PROVIDED HISTORY: left arm numbness Decision Support Exception - unselect if not a suspected or confirmed emergency medical condition->Emergency Medical Condition (MA) Is the patient ?->No FINDINGS: BRAIN/VENTRICLES: There is no acute intracranial hemorrhage, mass effect or midline shift. No abnormal extra-axial fluid collection. The mendez-white differentiation is maintained without evidence of an acute infarct. There is no evidence of hydrocephalus. Suggestion of a partially empty sella ORBITS: The visualized portion of the orbits demonstrate no acute abnormality. SINUSES: The visualized paranasal sinuses and mastoid air cells demonstrate no acute abnormality. SOFT TISSUES/SKULL: No acute abnormality of the visualized skull or soft tissues. IMPRESSION: No acute intracranial abnormality. Interpreted by: Reggie Rivera MD Signed by: Reggie Rivera MD 04/23/23 Final result Normal [facility] Troponinon 04-23-2023 Troponin, High Sens <6 Normal 0-14 [facility] Comment on above: Result Comment: High Sensitivity Troponin values cannot be compared with other Troponin methodologies. Performed By: #### C DP, LIP, CP, TROPI #### [facility] [address] [place] [address] Telephone Operator Receptionist: Jordon Tai MD Troponin, High Sens <6 Normal 0-14 [facility] Comment on above: Result Comment: High Sensitivity Troponin values cannot be compared with other Troponin methodologies. Performed By: #### C DP, LIP, CP, TROPI #### [facility] [address] [place] [address] Telephone Operator Receptionist: Jordon Tai MD XR CHEST PORTABLEon 04-23-20 XR CHEST PORTABLE EXAMINATION: ONE XRAY VIEW OF THE CHEST 04/23/2023 2:45 pm COMPARISON: 01/27/2023 HISTORY: ORDERING SYSTEM PROVIDED HISTORY: cp TECHNOLOGIST PROVIDED HISTORY: cp FINDINGS: Suboptimal inspiration results in vascular crowding. The heart and pulmonary vascularity are within normal limits. There are no focal areas of consolidation or pleural effusion. The osseous structures are intact. IMPRESSION: No acute abnormality Interpreted by: Leonides Fernandez MD Signed by: Leonides Fernandez MD 04/23/23 Final result Normal [facility] C Fungalon 04-06-2023 C Fungal ---- Final No growth at 4 weeks. Normal [facility] Comment on above: Performed By: #### F C #### [address] [address] C ANAon 03-12-2023 C MANDY ---- Final No anaerobic growth after 72 hrs. Normal [facility] Comment on above: Performed By: #### A SHELL #### [place] [id number] C Woundon 03-10-2023 C Wound add gram stain Final Rare Normal skin ariane isolated Gram Stain Rare White Blood Cells No organisms seen. Normal [facility] Comment on above: Performed By: #### W DC #### [facility] (DEFAULT) [address] [place], [place] [id number] [place] [address] No Panel Informationon 03-05 1. No acute osseous abnormality of the left wrist or the left hand. 2. No retained radiopaque foreign body. [facility] RIS CONSOLIDATED EXAMINATION: THREE XRAY VIEWS OF THE LEFT WRIST; THREE XRAY VIEWS OF THE LEFT HAND 03/05/2023 3:55 pm COMPARISON: December 21, 2022 HISTORY: ORDERING SYSTEM PROVIDED HISTORY: dog bite TECHNOLOGIST PROVIDED HISTORY: dog bite FINDINGS: Left wrist: No acute fracture or dislocation. Joint alignment and joint spaces are maintained. No erosions are present. No retained, radiopaque foreign body. Left hand: No acute fracture or dislocation. Joint alignment and joint spaces are maintained. No evidence of erosion. No retained radiopaque foreign body. [facility] Jordon Bell MD - 03/05/2023 EXAMINATION: THREE XRAY VIEWS OF THE LEFT WRIST; THREE XRAY VIEWS OF THE LEFT HAND 03/05/2023 3:55 pm COMPARISON: December 21, 2022 HISTORY: ORDERING SYSTEM PROVIDED HISTORY: dog bite TECHNOLOGIST PROVIDED HISTORY: dog bite FINDINGS: Left wrist: No acute fracture or dislocation. Joint alignment and joint spaces are maintained. No erosions are present. No retained, radiopaque foreign body. Left hand: No acute fracture or dislocation. Joint alignment and joint spaces are maintained. No evidence of erosion. No retained radiopaque foreign body. IMPRESSION: 1. No acute osseous abnormality of the left wrist or the left hand. 2. No retained radiopaque foreign body. [facility] ID Watchdog No Panel InformationOrdered By: Jordon Cesar on 03-05-2023 [facility] [employer] Work Phone: XR HAND LEFT (MIN 3 VIEWS)on 03-05-2023 Radiology Study observation (narrative) [facility] XR WRIST LEFT (MIN 3 VIEWS)o n 03-05-2023 Radiology Study observation (narrative) [facility] [facility] [employer] CBC with Auto Differentialon 02-22-2023 Basophils (Bld) [#/Vol] 0.04 10*3/uL [facility] Basophils/100 WBC (Bld) 1 % 0 - 2 % B ON [facility] [employer] Eosinophils (Bld) [#/Vol] 0.08 10*3/uL [facility] [employer] Eosinophils/100 WBC (Bld) 1 % 1 - 4 % [facility] [employer] Erythrocyte distribution width (RBC) [Ratio] 11.9 % 11.8 - 14.4 % [facility] [employer] Hematocrit (Bld) [Volume fraction] 34.6 % Low 36.3 - 47.1 % [facility] Hemoglobin (Bld) [Mass/Vol] 12.1 g/dL 11.9 - 15.1 g/dL [facility] Immature granulocytes (Bld) [#/Vol] [facility] Immature granulocytes/100 WBC (Bld) 0 % 0 [facility] Interpretation and review of laboratory results Abnormal [facility] Lymphocytes/100 WBC (Bld) 30 % 24 - 43 % [facility] Lymphocytes/100 WBC (Bld) 1.84 % [facility] MCH (RBC) [Entitic mass] 31.1 pg 25.2 - 33.5 pg [facility] MCHC (RBC) [Mass/Vol] 35.0 g/dL High 28.4 - 34.8 g/dL [facility] MCV (RBC) [Entitic vol] 88.9 fL 82.6 - 102.9 fL [facility] Monocytes/100 WBC (Bld) 7 % 3 - 12 % B ON [facility] Monocytes/100 WBC (Bld) 0.45 % B ON [facility] Neutrophils/100 WBC (Bld) 61 % 36 - 65 % [facility] Nucleated RBC/100 WBC (Bld) [Ratio] 0.0 % 0.0 per 100 WBC [facility] Platelet mean volume (Bld) [Entitic vol] 9.4 fL 8.1 - 13.5 fL [facility] Platelets (Bld) [#/Vol] 254 10*3/uL [facility] RBC (Bld) [#/Vol] 3.89 10*6/uL Low 3.95 - 5.11 m/uL [facility] Segmented neutrophils/100 WBC (Bld) 3.62 % [facility] WBC other (Bld) [#/Vol] 6.[address] [facility] CT ABDOMEN PELVIS W IV CONTR AST Additional Contrast? Noneon 02-22-2023 No acute abnormality in the abdomen or pelvis. [facility] RIS CONSOLIDATED EXAMINATION: CT OF THE ABDOMEN AND PELVIS WITH CONTRAST 02/22/2023 2:40 pm TECHNIQUE: CT of the abdomen and pelvis was performed with the administration of intravenous contrast. Multiplanar reformatted images are provided for review. Automated exposure control, iterative reconstruction, and/or weight based adjustment of the mA/kV was utilized to reduce the radiation dose to as low as reasonably achievable. COMPARISON: CT abdomen and pelvis 08/05/2021. HISTORY: ORDERING SYSTEM PROVIDED HISTORY: RLQ pain TECHNOLOGIST PROVIDED HISTORY: RLQ pain Decision Support Exception - unselect if not a suspected or confirmed emergency medical condition->Emergency Medical Condition (MA) FINDINGS: Lower Chest: Images through the lung bases demonstrate no acute process. Organs: The liver is unremarkable. The gallbladder is surgically absent. The biliary tree is within normal limits status post cholecystectomy. The pancreas, spleen, and bilateral adrenal glands are unremarkable. The bilateral kidneys and ureters are unremarkable. GI/Bowel: Normal appendix. The colon is unremarkable. The stomach and small bowel are normal in appearance. No obstruction or wall thickening identified. Pelvis: The urinary bladder is unremarkable. Status post hysterectomy. No free fluid in the pelvis. No pelvic or inguinal lymphadenopathy. Peritoneum/Retroperitone um: The abdominal aorta is normal in caliber with moderate atherosclerosis. No acute vascular abnormality identified. No retroperitoneal or mesenteric lymphadenopathy is identified. No free air or fluid is seen in the abdomen. Bones/Soft Tissues: No acute osseous or soft tissue abnormality. [facility] Hiro Leiva MD - 02/22/2023 EXAMINATION: CT OF THE ABDOMEN AND PELVIS WITH CONTRAST 02/22/2023 2:40 pm TECHNIQUE: CT of the abdomen and pelvis was performed with the administration of intravenous contrast. Multiplanar reformatted images are provided for review. Automated exposure control, iterative reconstruction, and/or weight based adjustment of the mA/kV was utilized to reduce the radiation dose to as low as reasonably achievable. COMPARISON: CT abdomen and pelvis 08/05/2021. HISTORY: ORDERING SYSTEM PROVIDED HISTORY: RLQ pain TECHNOLOGIST PROVIDED HISTORY: RLQ pain Decision Support Exception - unselect if not a suspected or confirmed emergency medical condition->Emergency Medical Condition (MA) FINDINGS: Lower Chest: Images through the lung bases demonstrate no acute process. Organs: The liver is unremarkable. The gallbladder is surgically absent. The biliary tree is within normal limits status post cholecystectomy. The pancreas, spleen, and bilateral adrenal glands are unremarkable. The bilateral kidneys and ureters are unremarkable. GI/Bowel: Normal appendix. The colon is unremarkable. The stomach and small bowel are normal in appearance. No obstruction or wall thickening identified. Pelvis: The urinary bladder is unremarkable. Status post hysterectomy. No free fluid in the pelvis. No pelvic or inguinal lymphadenopathy. Peritoneum/Retroperitone um: The abdominal aorta is normal in caliber with moderate atherosclerosis. No acute vascular abnormality identified. No retroperitoneal or mesenteric lymphadenopathy is identified. No free air or fluid is seen in the abdomen. Bones/Soft Tissues: No acute osseous or soft tissue abnormality. IMPRESSION: No acute abnormality in the abdomen or pelvis. [facility] Radiology Study observation (narrative) [facility] CT ABDOMEN PELVIS W IV CONTR AST Additional Contrast? NoneOrdered By: Hiro Reza on 02-22-2023 [facility] [employer] Work Phone: Comprehensive Metabolic Pane misti 02-22-2023 Albumin [Mass/Vol] 4.4 g/dL 3.5 - 5.2 g/dL [facility] Albumin/Globulin [Mass ratio] 1.5 {ratio} 1.0 - 2.5 [facility] ALP [Catalytic activity/Vol] 95 U/L 35 - 104 U/L [facility] ALT [Catalytic activity/Vol] 23 U/L 5 - 33 U/L [facility] Anion gap [Moles/Vol] 12 mmol/L 9 - 17 mmol/L [facility] AST [Catalytic activity/Vol] 24 U/L NINF - 32 U/L [facility] Bilirubin [Mass/Vol] 0.6 mg/dL 0.3 - 1 .2 mg/dL [facility] Calcium [Mass/Vol] 9.2 mg/dL 8.6 - 10. 4 mg/dL [facility] Chloride [Moles/Vol] 103 mmol/L 98 - 10 7 mmol/L [facility] CO2 [Moles/Vol] 25 mmol/L 20 - 31 mmol/L [facility] Creatinine [Mass/Vol] 0.7 mg/dL 0.5 - 0.9 mg/dL [facility] GFR/1.73 sq M.predicted MDRD (S/P/Bld) [Vol rate/Area] - [facility] Comment on above: These results are not intended for use in patients <18 years of age. eGFR results are calculated without a race factor using the 2020 CKD-EPI equation. Careful clinical correlation is recommended, particularly when comparing to results calculated using previous equations. The CKD-EPI equation is less accurate in patients with extremes of muscle mass, extra-renal metabolism of creatine, excessive creatine ingestion, or following therapy that affects renal tubular secretion. Glucose [Mass/Vol] 101 mg/dL High 70 - 99 mg/dL [facility] Interpretation and review of laboratory results Abnormal [facility] Potassium [Moles/Vol] 3.3 mmol/L Low 3.7 - 5.3 mmol/L [facility] Protein [Mass/Vol] 7.3 g/dL 6.4 - 8.3 g/dL [facility] Sodium [Moles/Vol] 140 mmol/L 135 - 144 mmol/L [facility] Urea nitrogen [Mass/Vol] 9 mg/dL 6 - 20 mg/dL [facility] Urea nitrogen/Creatinine [Mass ratio] 13 mg/mg 9 - 20 [facility] Lactic Acidon 02-22-2023 Lactate (BldV) [Moles/Vol] 1.5 mmol/L 0.5 - 2.2 mmol/L [facility] Urinalysis with Microscopico n 02-22-2023 Bacteria LM Ql (Urine sed) TRACE Abnormal None [facility] Bilirubin Ql (U) Negative NEGATIVE [facility] Clarity (U) Clear Clear [facility] Color (U) Yellow Yellow [facility] Epithelial cells LM.HPF (Urine sed) [#/Area] 0 TO 2 [facility] Glucose Test strip (U) [Mass/Vol] Negative NEGATIVE mg/dL [facility] Hemoglobin Auto test strip Ql (U) Negative NEGATIVE [facility] Interpretation and review of laboratory results Abnormal [facility] Ketones (U) [Mass/Vol] Negative NEGAT [place] mg/dL [facility] Leukocyte esterase Test strip Ql (U) Negative NEGATIVE [facility] Nitrite Ql (U) Negative NEGATIVE [facility] pH (U) 6.5 [pH] 5.0 - 9.0 [facility] [employer] Protein (U) [Mass/Vol] Negative NEGAT [place] mg/dL [facility] RBC LM.HPF (Urine sed) [#/Area] None [facility] Specific gravity (U) [Rel density] Low 1.010 - 1.020 [facility] Urobilinogen Qn (U) Normal 0.0 - 1. 0 EU/dL [facility] WBC LM.HPF (Urine sed) [#/Area] None [facility] XR KNEE RIGHT (1-2 VIEWS)on 12-21-2022 No acute abnormality right knee. [facility] CONSOLIDATED EXAMINATION: TWO XRAY VIEWS OF THE RIGHT KNEE 12/21/2022 11:35 am COMPARISON: Previous three-view study of the right knee from 05/01/2022 HISTORY: ORDERING SYSTEM PROVIDED HISTORY: Twisted TECHNOLOGIST PROVIDED HISTORY: Twisted FINDINGS: No fracture. No dislocation. No joint effusion. Mild unchanged degenerative findings. No destructive or blastic lesion. [facility] Jarred Kruse MD - 12/21/2022 EXAMINATION: TWO XRAY VIEWS OF THE RIGHT KNEE 12/21/2022 11:35 am COMPARISON: Previous three-view study of the right knee from 05/01/2022 HISTORY: ORDERING SYSTEM PROVIDED HISTORY: Twisted TECHNOLOGIST PROVIDED HISTORY: Twisted FINDINGS: No fracture. No dislocation. No joint effusion. Mild unchanged degenerative findings. No destructive or blastic lesion. IMPRESSION: No acute abnormality right knee. [facility] [employer] Work Phone: Radiology Study observation (narrative) [facility] [employer] Work Phone: XR KNEE RIGHT (1-2 VIEWS)Ord ered By: Jarred Kruse on 12-21-2022 [facility] [employer] Work Phone: XR SHOULDER LEFT (MIN 2 VIEW S)on 12-21-2022 No acute abnormality . [facility] EXAMINATION: 3 XRAY VIEWS OF THE LEFT SHOULDER 12/21/2022 11:34 am COMPARISON: Three-view study of the left shoulder from 11/21/2021 HISTORY: ORDERING SYSTEM PROVIDED HISTORY: Fall onto TECHNOLOGIST PROVIDED HISTORY: Fall onto FINDINGS: Glenohumeral joint is normally aligned. No evidence of acute fracture or dislocation. No abnormal periarticular calcifications. The AC joint demonstrates mild unchanged degenerative findings. Visualized lung is unremarkable. Cardiac stent and loop recorder again noted. [facility] Jarred Kruse MD - 12/21/2022 EXAMINATION: 3 XRAY VIEWS OF THE LEFT SHOULDER 12/21/2022 11:34 am COMPARISON: Three-view study of the left shoulder from 11/21/2021 HISTORY: ORDERING SYSTEM PROVIDED HISTORY: Fall onto TECHNOLOGIST PROVIDED HISTORY: Fall onto FINDINGS: Glenohumeral joint is normally aligned. No evidence of acute fracture or dislocation. No abnormal periarticular calcifications. The AC joint demonstrates mild unchanged degenerative findings. Visualized lung is unremarkable. Cardiac stent and loop recorder again noted. IMPRESSION: No acute abnormality. [employer] Phone: [employer] Phone: Radiology Study observation (narrative) [employer] Phone: XR WRIST LEFT (MIN 3 VIEWS)o n 12-21-2022 Unchanged wrist radiographs without acute abnormality. [facility] EXAMINATION: 3 XRAY VIEWS OF THE LEFT WRIST 12/21/2022 11:35 am COMPARISON: Previous three-view study of the left wrist from 2018 HISTORY: ORDERING SYSTEM PROVIDED HISTORY: Fall onto TECHNOLOGIST PROVIDED HISTORY: Fall onto FINDINGS: Carpal bones and alignment are maintained. Distal radius and ulna are intact. No acute fracture or dislocation. Slight degenerative change carpal 1st metacarpal joint space. [facility] Jarred Kruse MD - 12/21/2022 EXAMINATION: 3 XRAY VIEWS OF THE LEFT WRIST 12/21/2022 11:35 am COMPARISON: Previous three-view study of the left wrist from 2018 HISTORY: ORDERING SYSTEM PROVIDED HISTORY: Fall onto TECHNOLOGIST PROVIDED HISTORY: Fall onto FINDINGS: Carpal bones and alignment are maintained. Distal radius and ulna are intact. No acute fracture or dislocation. Slight degenerative change carpal 1st metacarpal joint space. IMPRESSION: Unchanged wrist radiographs without acute abnormality. [facility] [address] Phone: [employer] [address] Phone: Radiology Study observation (narrative) [facility] [address] Phone: ECHO Complete 2D W Doppler W Coloron 11-18-2022 [facility] Transthoracic Echocardiography Report (TTE) Patient Name ADRIÁN Date of Study 11/18/2022 MIKE N Date of 1975 Gender Female Age 46 year(s) Race Room Number Height: 64 inch, 162.56 cm Corporate ID [id number] Weight: 200 pounds, 90.7 kg # Patient Acct [id number] BSA: 1.96 m^2 BMI: 34.33 # kg/m^2 MR # [id number] [employer]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 Procedure Date Date: 11/18/2022 Start: 01:26 PM Study Location: [facility] Indications:Chest pain. History / Tech. Comments: Dx: chest pain Patient Status: Outpatient Height: 64 inches Weight: 200 pounds BSA: 1.96 m^2 BMI: 34.33 kg/m^2 BP: 127/77 mmHg Allergies - Cephalosporins. - Plavix. CONCLUSIONS Summary Global left ventricular systolic function appears preserved with an estimated ejection fraction of 60%. The left ventricular cavity size is within normal limits and the left ventricular wall thickness is within normal limits. Normal mitral valve structure with trivial mitral regurgitation. Compared to the previous study of 10/21/21, no significant change was seen. Signature ---- ---- ---- Electronically signed by [facility]) on 11/18/2022 05:23 PM ---- FINDINGS Left Atrium Left atrium is normal in size. Left Ventricle Global left ventricular systolic function appears preserved with an estimated ejection fraction of 60%. The left ventricular cavity size is within normal limits and the left ventricular wall thickness is within normal limits. Right Atrium Right atrium is normal in size. Right Ventricle Normal right ventricular size and function. Mitral Valve Normal mitral valve structure with trivial mitral regurgitation. Aortic Valve Normal aortic valve structure with trivial aortic regurgitation. Tricuspid Valve Normal tricuspid valve structure with trivial tricuspid regurgitation. Pulmonic Valve Normal pulmonic valve structure with trivial pulmonic regurgitation. Pericardial Effusion No significant pericardial effusion is seen. Miscellaneous No clear evidence of diastolic dysfunction was identified. Normal aortic root dimension. M-mode / 2D Measurements & Calculations: LVIDd:4.72 cm(3.7 - 5.6 cm) Diastolic Volume:104.45 ml LVIDs:3.14 cm(2.2 - 4.0 cm) Systolic Volume:35.02 ml IVSd:1 cm(0.6 - 1.1 cm) Aortic Root:3.06 cm(2.0 - 3.7 cm) LVPWd:0.96 cm(0.6 - 1.1 cm) LA Dimension: 3.13 cm(1.9 - 4.0 cm) Fractional Shortenin.47 % AV Cusp Separation: 2.17 cm Calculated LVEF (%): 66.47 % Mitral: Aortic Valve Area (P1/2-Time): 3.65 cm^2 Peak Velocity: 1.23 m/s Peak E-Wave: 0.66 m/s Mean Velocity: 0.85 m/s Peak A-Wave: 0.51 m/s Peak Gradient: 6.09 mmHg E/A Ratio: 1.31 Mean Gradient: 3.16 mmHg Peak Gradient: 1.77 mmHg Acceleration Time: 91.17 msec P1/2t: 60.35 msec AV VTI: 29.33 cm Tricuspid: Peak TR Velocity: 1.89 m/s Peak TR Gradient: 14.89680 mmHg Diastology / Tissue Doppler Lateral Wall E' velocity:0.12 m/s Lateral Wall E/E':4.5 [facility] Ronan Rodriguez MD - 11/18/2022 [facility] Transthoracic Echocardiography Report (TTE) Patient Name ADRIÁN Date of Study 11/18/2022 MIKE N Date of 1975 Gender Female Age 46 year(s) Race Room Number Height: 64 inch, 162.56 cm Corporate ID [id number] Weight: 200 pounds, 90.7 kg # Patient Acct [id number] BSA: 1.96 m^2 BMI: 34.33 # kg/m^2 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 Procedure Date Date: 11/18/2022 Start: 01:26 PM Study Location: [facility] Indications:Chest pain. History / Tech. Comments: Dx: chest pain Patient Status: Outpatient Height: 64 inches Weight: 200 pounds BSA: 1.96 m^2 BMI: 34.33 kg/m^2 BP: 127/77 mmHg Allergies - Cephalosporins. - Plavix. CONCLUSIONS Summary Global left ventricular systolic function appears preserved with an estimated ejection fraction of 60%. The left ventricular cavity size is within normal limits and the left ventricular wall thickness is within normal limits. Normal mitral valve structure with trivial mitral regurgitation. Compared to the previous study of 10/21/21, no significant change was seen. Signature --- - --- - --- - Electronically signed by [facility] physician) on 11/18/2022 05:23 PM --- - FINDINGS Left Atrium Left atrium is normal in size. Left Ventricle Global left ventricular systolic function appears preserved with an estimated ejection fraction of 60%. The left ventricular cavity size is within normal limits and the left ventricular wall thickness is within normal limits. Right Atrium Right atrium is normal in size. Right Ventricle Normal right ventricular size and function. Mitral Valve Normal mitral valve structure with trivial mitral regurgitation. Aortic Valve Normal aortic valve structure with trivial aortic regurgitation. Tricuspid Valve Normal tricuspid valve structure with trivial tricuspid regurgitation. Pulmonic Valve Normal pulmonic valve structure with trivial pulmonic regurgitation. Pericardial Effusion No significant pericardial effusion is seen. Miscellaneous No clear evidence of diastolic dysfunction was identified. Normal aortic root dimension. M-mode / 2D Measurements & Calculations: LVIDd:4.72 cm(3.7 - 5.6 cm) Diastolic Volume:104.45 ml LVIDs:3.14 cm(2.2 - 4.0 cm) Systolic Volume:35.02 ml IVSd:1 cm(0.6 - 1.1 cm) Aortic Root:3.06 cm(2.0 - 3.7 cm) LVPWd:0.96 cm(0.6 - 1.1 cm) LA Dimension: 3.13 cm(1.9 - 4.0 cm) Fractional Shortenin.47 % AV Cusp Separation: 2.17 cm Calculated LVEF (%): 66.47 % Mitral: Aortic Valve Area (P1/2-Time): 3.65 cm^2 Peak Velocity: 1.23 m/s Peak E-Wave: 0.66 m/s Mean Velocity: 0.85 m/s Peak A-Wave: 0.51 m/s Peak Gradient: 6.09 mmHg E/A Ratio: 1.31 Mean Gradient: 3.16 mmHg Peak Gradient: 1.77 mmHg Acceleration Time: 91.17 msec P1/2t: 60.35 msec AV VTI: 29.33 cm Tricuspid: Peak TR Velocity: 1.89 m/s Peak TR Gradient: 14.31342 mmHg Diastology / Tissue Doppler Lateral Wall E' velocity:0.12 m/s Lateral Wall E/E':4.5 [employer] [facility] Work Phone: [facility] Work Phone: Basic Metabolic Panelon 02-0 Anion gap [Moles/Vol] 14 mmol/L 9 - 17 mmol/L [facility] Calcium [Mass/Vol] 9.3 mg/dL 8.6 - 10. 4 mg/dL [facility] Chloride [Moles/Vol] 100 mmol/L 98 - 10 7 mmol/L [facility] CO2 [Moles/Vol] 24 mmol/L 20 - 31 mmol/L [facility] Creatinine [Mass/Vol] 0.71 mg/dL 0.50 - 0.90 mg/dL [facility] GFR/1.73 sq M.predicted MDRD (S/P/Bld) [Vol rate/Area] - PINF [facility] Comment on above: These results are not intended for use in patients <18 years of age. eGFR results are calculated without a race factor using the 2020 CKD-EPI equation. Careful clinical correlation is recommended, particularly when comparing to results calculated using previous equations. The CKD-EPI equation is less accurate in patients with extremes of muscle mass, extra-renal metabolism of creatine, excessive creatine ingestion, or following therapy that affects renal tubular secretion. Glucose [Mass/Vol] 127 mg/dL High 70 - 99 mg/dL [facility] Interpretation and review of laboratory results Abnormal [facility] Potassium [Moles/Vol] 3.5 mmol/L Low 3.7 - 5.3 mmol/L [facility] Sodium [Moles/Vol] 138 mmol/L 135 - 144 mmol/L [facility] Urea nitrogen [Mass/Vol] 7 mg/dL 6 - 20 mg/dL [facility] Urea nitrogen/Creatinine (Bld) [Mass ratio] 10 9 - 20 [facility] Basic to [facility] 08-20-2022 Albumin [Mass/Vol] 4.3 g/dL 3.5 - 5.2 g/dL [facility] Albumin/Globulin [Mass ratio] 1.5 {ratio} 1.0 - 2.5 [facility] ALP [Catalytic activity/Vol] 90 U/L 35 - 104 U/L [facility] ALT [Catalytic activity/Vol] 66 U/L High 5 - 33 U/L [facility] AST [Catalytic activity/Vol] 52 U/L High NINF - 32 U/L [facility] Bilirubin [Mass/Vol] 0.3 mg/dL 0.3 - 1 .2 mg/dL [facility] Interpretation and review of laboratory results Abnormal [facility] Protein [Mass/Vol] 7.1 g/dL 6.4 - 8.3 g/dL [facility] CBC with Auto Differentialon 08-20-2022 Absolute [facility]os # 0.09 [facility] Absolute Immature Granulocyte [facility] Absolute Lymph # 2.66 [facility] Absolute [place] # 0.47 [facility] RS [facility] Basophils (Bld) [#/Vol] 0.06 10*3/uL [facility] Basophils/100 WBC (Bld) 1 % 0 - 2 % B ON [facility] Eosinophils/100 WBC (Bld) 1 % 1 - 4 % [facility] Hematocrit (Bld) [Volume fraction] 35.8 % Low 36.3 - 47.1 % [facility] Hemoglobin (Bld) [Mass/Vol] 12.8 g/dL 11.9 - 15.1 g/dL [facility] Immature granulocytes/100 WBC (Bld) 0 % 0 [facility] Interpretation and review of laboratory results Abnormal [facility] Lymphocytes/100 WBC (Bld) 35 % 24 - 43 % [facility] MCH (RBC) [Entitic mass] 32.0 pg 25.2 - 33.5 pg [facility] MCHC (RBC) [Mass/Vol] 35.8 g/dL High 28.4 - 34.8 g/dL [facility] MCV (RBC) [Entitic vol] 89.5 fL 82.6 - 102.9 fL [facility] Monocytes/100 WBC (Bld) 6 % 3 - 12 % B ON [facility] NRBC Automated 0.0 0.0 per 100 WBC [facility] Platelet distribution width (Bld) [Ratio] 11.9 % 11.8 - 14.4 % [facility] Platelet mean volume (Bld) [Entitic vol] 9.7 fL 8.1 - 13.5 fL [facility] Platelets (Bld) [#/Vol] 297 10*3/uL [facility] RBC (Bld) [#/Vol] 4.00 10*6/uL 3.95 - 5.11 m/uL [facility] Segmented neutrophils/100 WBC (Bld) 57 % 36 - 65 % [facility] Segs Absolute 4.36 [facility] WBC (Bld) [#/Vol] 7.7 10*3/uL [facility] Catheterization and angiogra phy procedure details panelon 08-20-2022 Cardiac Diagnostic Report Demographics Patient ADRIÁN Bee Date of Study 08/20/2022 Name Date of 1975 Gender Female Age 46 year(s) Race Room [id number]^MICHAEL^RONAN Height: 64 inch, 162.56 cm Number Corporate [id number] Weight: 194 pounds, 87.9 kg ID # Patient [id number] BSA: 1.93 m^2 BMI: 33.26 Acct # kg/m^2 MR # [id number] Performing Physician Ronan Rodriguez Referring Physician # Assisting Physician Additional Comments ASA & Mallampati documented in [facility] by Physician. H&P reviewed and patient examined by performing physician prior to the procedure on 08/20/2022 at 1525 No changes noted. If changes, see note below. ASA Classification II / Mallampati 2 : per Physician. Patient medications reviewed by Physician prior to procedure. Procedure Procedure Type: Diagnostic procedure: Lt Heart, Coronary Angio, LV pressure Complications: - No complication Conclusions Procedure Summary Severe single vessel disease involving a fairly small, ostial and jailed D1 branch of the LAD coronary artery. Normal left ventricular end diastolic pressure. (LVEDP). Recommendations Proceed with aggressive risk factor modification including aspirin, beta christos and statin if clinically indicated. Signature Angiographic Findings Cardiac Arteries and Lesion Findings LMCA: Normal 0% stenosis. LAD: Lesion on 1st Diag: Ostial.90% stenosis. LCx: Normal 0% stenosis. RCA: Normal 0% stenosis. Coronary Tree Dominance: Left LV function assessed as:Normal. Ejection Fraction + +--- ---+ !Method !EF% ! + +--- ---+ !Echocardiography !60 ! + +--- ---+ Ventriculography Findings: Normal left ventricular end diastolic pressure (LVEDP) with no significant aortic valve gradient seen on pull-back across the aortic valve. Procedure Data Procedure Start Time: 08/20/2022 15:34. Procedure End Time: 08/20/2022 15:54. The procedure was explained in detail to the patient. Risks, complications and alternative treatments were reviewed. Written consent was obtained. Diagnostic Cath Status: Urgent Entry Locations - Retrograde Percutaneous access was performed through the Right Radial artery. A 6 Fr sheath was inserted. Hemostasis was successfully obtained using Pressure Dressing. Procedure Medications: - Versed I.V. 1 mg. - Fentanyl I.V. 25 mcg. - Lidocaine HCl 1% 10mg/ml S.Q. 3 ml. - Nitroglycerin S.Q. 100 mcg. - Heparin I.V. bolus 5000 units. - 0.9 % NaCl I.V. bolus 1000 ml/hr. Catheters and Wires: - 6 Fr. Radial TIG 4.0 was used for LV Pressure. - 6 Fr. Radial TIG 4.0 was used for Right coronary angiography. - 6 Fr. Radial TIG 4.0 was used for Left coronary angiography. - 6F Catheter 3DRC was used for Right coronary angiography. Contrast Material: - Isovue 28631 ml Fluoroscopy Time: Diagnostic: 4:06 minutes. Total: 4:06 minutes. Estimated Blood Loss: 5 ml. Medical History Allergies - Cephalosporins. - Plavix. Risk Factors The patient risk factors include:prior PCI on 11/06/2021;peripheral arterial disease, obesity, cerebrovascular disease, physical activity, hypercholesterolemia, treated hypertension, last creatinine: 0.7 mg/dl, creatinine clearance: 139.35 ml/min, dyslipidemia and former tobacco use. Admission Data Admission Date: 08/20/2022 Pre Admission Medications + +-- ----+ +----- -----+ +------- ---+ !Medication !Dosage!Times Per Day!Start date!Stop date !Comments ! + +-- ----+ +----- -----+ +------- ---+ !Aspirin !81 mg ! ! ! ! ! + +-- ----+ +----- -----+ +------- ---+ !Clopidogrel (Plavix)!75 mg ! ! ! ! ! 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 [facility] Ronan Rodriguez MD - 08/20/2022 Cardiac Diagnostic Report Demographics Patient ADRIÁN Bee Date of Study 08/20/2022 Name Date of 1975 Gender Female Age 46 year(s) Race Room [id number]^LUXNAVA^RONAN Height: 64 inch, 162.56 cm Number Corporate [id number] Weight: 194 pounds, 87.9 kg ID # Patient [id number] BSA: 1.93 m^2 BMI: 33.26 Acct # kg/m^2 MR # [id number] Performing Physician Ronan Rodriguez Referring Physician # Assisting Physician Additional Comments ASA & Mallampati documented in Epic by Physician. H&P reviewed and patient examined by performing physician prior to the procedure on 08/20/2022 at 1525 No changes noted. If changes, see note below. ASA Classification II / Mallampati 2 : per Physician. Patient medications reviewed by Physician prior to procedure. Procedure Procedure Type: Diagnostic procedure: Lt Heart, Coronary Angio, LV pressure Complications: - No complication Conclusions Procedure Summary Severe single vessel disease involving a fairly small, ostial and jailed D1 branch of the LAD coronary artery. Normal left ventricular end diastolic pressure. (LVEDP). Recommendations Proceed with aggressive risk factor modification including aspirin, beta christos and statin if clinically indicated. Signature Angiographic Findings Cardiac Arteries and Lesion Findings LMCA: Normal 0% stenosis. LAD: Lesion on 1st Diag: Ostial.90% stenosis. LCx: Normal 0% stenosis. RCA: Normal 0% stenosis. Coronary Tree Dominance: Left LV function assessed as:Normal. Ejection Fraction + +--- --- + !Method !EF% ! + +--- --- + !Echocardiography !60 ! + +--- --- + Ventriculography Findings: Normal left ventricular end diastolic pressure (LVEDP) with no significant aortic valve gradient seen on pull-back across the aortic valve. Procedure Data Procedure Start Time: 08/20/2022 15:34. Procedure End Time: 08/20/2022 15:54. The procedure was explained in detail to the patient. Risks, complications and alternative treatments were reviewed. Written consent was obtained. Diagnostic Cath Status: Urgent Entry Locations - Retrograde Percutaneous access was performed through the Right Radial artery. A 6 Fr sheath was inserted. Hemostasis was successfully obtained using Pressure Dressing. Procedure Medications: - Versed I.V. 1 mg. - Fentanyl I.V. 25 mcg. - Lidocaine HCl 1% 10mg/ml S.Q. 3 ml. - Nitroglycerin S.Q. 100 mcg. - Heparin I.V. bolus 5000 units. - 0.9 % NaCl I.V. bolus 1000 ml/hr. Catheters and Wires: - 6 Fr. Radial TIG 4.0 was used for LV Pressure. - 6 Fr. Radial TIG 4.0 was used for Right coronary angiography. - 6 Fr. Radial TIG 4.0 was used for Left coronary angiography. - 6F Catheter 3DRC was used for Right coronary angiography. Contrast Material: - Isovue 94124 ml Fluoroscopy Time: Diagnostic: 4:06 minutes. Total: 4:06 minutes. Estimated Blood Loss: 5 ml. Medical History Allergies - Cephalosporins. - Plavix. Risk Factors The patient risk factors include:prior PCI on 11/06/2021;peripheral arterial disease, obesity, cerebrovascular disease, physical activity, hypercholesterolemia, treated hypertension, last creatinine: 0.7 mg/dl, creatinine clearance: 139.35 ml/min, dyslipidemia and former tobacco use. Admission Data Admission Date: 08/20/2022 Pre Admission Medications + +-- ----+ +----- -----+ +------- --- + !Medication !Dosage!Times Per Day!Start date!Stop date !Comments ! + +-- ----+ +----- -----+ +------- --- + !Aspirin !81 mg ! ! ! ! ! + +-- ----+ +----- -----+ +------- --- + !Clopidogrel (Plavix)!75 mg ! ! ! ! ! 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 Hemodynamics Condition: Baseline Room Air Estimated: 186.28Heart Rate: 63 bpm Pressure +-----+ --- + !Site !Pressure ! +-----+ --- + !AO !106/59 (80) ! +-----+ --- + !LV !106/0 ,11 ! +-----+ (more content not included)... [facility] Work Phone: [facility] Work Phone: Catheterization and angiogra phy procedure details panelOrdered By: Unknown Result on 08-20-2022 [facility] Troponinon 08-20-2022 Troponin I.cardiac DL <= 0.01 ng/mL [Mass/Vol] ng/L 0 - 14 ng/L [facility] Comment on above: High Sensitivity Tro ponin values cannot be compared with other Troponin methodologies. [facility] Troponin I.cardiac DL <= 0.01 ng/mL [Mass/Vol] ng/L 0 - 14 ng/L [facility] [employer] Comment on above: High Sensitivity Tro ponin values cannot be compared with other Troponin methodologies. [facility] [employer] XR CHEST PORTABLEon 08-20-19 No acute process. [facility] EXAMINATION: ONE XRAY VIEW OF THE CHEST 08/20/2022 12:50 pm COMPARISON: 10/19/2021 HISTORY: ORDERING SYSTEM PROVIDED HISTORY: chest pain TECHNOLOGIST PROVIDED HISTORY: chest pain FINDINGS: Loop recorder in place. The lungs are without acute focal process. There is no effusion or pneumothorax. The cardiomediastinal silhouette is stable. The osseous structures are stable. [facility] Janae Espinoza MD - 08/20/2022 EXAMINATION: ONE XRAY VIEW OF THE CHEST 08/20/2022 12:50 pm COMPARISON: 10/19/2021 HISTORY: ORDERING SYSTEM PROVIDED HISTORY: chest pain TECHNOLOGIST PROVIDED HISTORY: chest pain FINDINGS: Loop recorder in place. The lungs are without acute focal process. There is no effusion or pneumothorax. The cardiomediastinal silhouette is stable. The osseous structures are stable. IMPRESSION: No acute process. [facility] [employer] Work Phone: Radiology Study observation (narrative) [facility] [employer] Work Phone: XR CHEST PORTABLEOrdered By: Janae Espinoza on 08-20-2022 [facility] [employer] Work Phone: CBC with Auto Differentialon 07-28-2022 Absolute Eos # 0.10 [facility] Absolute Immature Granulocyte 0.05 [facility] Absolute Lymph # 1.91 [facility] [employer] Absolute [place] # 0.49 [facility] RS [facility] [employer] Basophils (Bld) [#/Vol] 0.04 10*3/uL [facility] Basophils/100 WBC (Bld) 1 % 0 - 2 % B [facility] [employer] Eosinophils/100 WBC (Bld) 2 % 1 - 4 % [facility] Hematocrit (Bld) [Volume fraction] 34.6 % Low 36.3 - 47.1 % [facility] Hemoglobin (Bld) [Mass/Vol] 12.3 g/dL 11.9 - 15.1 g/dL [facility] Immature granulocytes/100 WBC (Bld) 1 % High 0 [facility] Interpretation and review of laboratory results Abnormal [facility] Lymphocytes/100 WBC (Bld) 29 % 24 - 43 % [facility] MCH (RBC) [Entitic mass] 31.5 pg 25.2 - 33.5 pg [facility] MCHC (RBC) [Mass/Vol] 35.5 g/dL High 28.4 - 34.8 g/dL [facility] MCV (RBC) [Entitic vol] 88.7 fL 82.6 - 102.9 fL [facility] Monocytes/100 WBC (Bld) 8 % 3 - 12 % B ON [facility] NRBC Automated 0.0 0.0 per 100 WBC [facility] Platelet distribution width (Bld) [Ratio] 11.9 % 11.8 - 14.4 % [facility] Platelet mean volume (Bld) [Entitic vol] 9.6 fL 8.1 - 13.5 fL [facility] Platelets (Bld) [#/Vol] 291 10*3/uL [facility] RBC (Bld) [#/Vol] 3.90 10*6/uL Low 3.95 - 5.11 m/uL [facility] Segmented neutrophils/100 WBC (Bld) 59 % 36 - 65 % [facility] Segs Absolute 3.92 [facility] WBC (Bld) [#/Vol] 6.5 10*3/uL [facility] CMPon 07-28-2022 Albumin [Mass/Vol] 4.1 g/dL 3.5 - 5.2 g/dL [facility] Albumin/Globulin [Mass ratio] 1.6 {ratio} 1.0 - 2.5 [facility] ALP (Bld) [Catalytic activity/Vol] 95 U/L 35 - 104 U/L [facility] ALT [Catalytic activity/Vol] 86 U/L High 5 - 33 U/L [facility] Anion gap [Moles/Vol] 9 mmol/L 9 - 17 mmol/L [facility] AST [Catalytic activity/Vol] 49 U/L High NINF - 32 U/L [facility] Bilirubin [Mass/Vol] 0.5 mg/dL 0.3 - 1 .2 mg/dL [facility] Calcium [Mass/Vol] 9.4 mg/dL 8.6 - 10. 4 mg/dL [facility] Chloride [Moles/Vol] 103 mmol/L 98 - 10 7 mmol/L [facility] CO2 [Moles/Vol] 27 mmol/L 20 - 31 mmol/L [facility] Creatinine [Mass/Vol] 0.63 mg/dL 0.50 - 0.90 mg/dL [facility] GFR/1.73 sq M.predicted MDRD (S/P/Bld) [Vol rate/Area] - PINF [facility] Comment on above: Effective Apr 20, 2022 These results are not intended for use in patients <18 years of age. eGFR results are calculated without a race factor using the 2020 CKD-EPI equation. Careful clinical correlation is recommended, particularly when comparing to results calculated using previous equations. The CKD-EPI equation is less accurate in patients with extremes of muscle mass, extra-renal metabolism of creatine, excessive creatine ingestion, or following therapy that affects renal tubular secretion. Glucose [Mass/Vol] 105 mg/dL High 70 - 99 mg/dL [facility] Interpretation and review of laboratory results Abnormal [facility] Potassium [Moles/Vol] 3.7 mmol/L 3.7 - 5.3 mmol/L [facility] Protein [Mass/Vol] 6.7 g/dL 6.4 - 8.3 g/dL [facility] Sodium [Moles/Vol] 139 mmol/L 135 - 144 mmol/L [facility] Urea nitrogen (BldV) [Mass/Vol] 9 mg/dL 6 - 20 mg/dL [facility] Urea nitrogen/Creatinine (Bld) [Mass ratio] 14 9 - [address] [facility] [address] ABDOMEN PELVIS W IV CONTR AST Additional Contrast? Noneon 07-28-2022 No acute process identified. Status post cholecystectomy and hysterectomy. Degenerative and postoperative changes noted in the lower lumbar spine. [facility] EXAMINATION: CT OF THE ABDOMEN AND PELVIS WITH CONTRAST 07/28/2022 9:49 am TECHNIQUE: CT of the abdomen and pelvis was performed with the administration of intravenous contrast. Multiplanar reformatted images are provided for review. Automated exposure control, iterative reconstruction, and/or weight based adjustment of the mA/kV was utilized to reduce the radiation dose to as low as reasonably achievable. COMPARISON: 08/05/2021 HISTORY: ORDERING SYSTEM PROVIDED HISTORY: Abdominal pain, vomiting,. History of bowel obstruction and multiple abdominal surgery TECHNOLOGIST PROVIDED HISTORY: Abdominal pain, vomiting,. History of bowel obstruction and multiple abdominal surgery Decision Support Exception - unselect if not a suspected or confirmed emergency medical condition->Emergency Medical Condition (MA) FINDINGS: Lower Chest: Unremarkable Organs: There is moderate steatosis of the liver. The patient is status post cholecystectomy. The pancreas and spleen appear normal. The adrenal glands and kidneys appear normal. GI/Bowel: The stomach, small bowel loops and colon appear normal. There is no bowel distension or evidence of obstruction Pelvis: The bladder, and the rectum appear unremarkable. The patient is status post hysterectomy. Peritoneum/Retroperitone um: Unremarkable Bones/Soft Tissues: There are degenerative changes of the L3-L4 and L4-L5 discs with disc spacers in place. Pedicle screws and connecting rods are noted bilaterally at L5 and S1. [facility] Jose Jo MD - 07/28/2022 EXAMINATION: CT OF THE ABDOMEN AND PELVIS WITH CONTRAST 07/28/2022 9:49 am TECHNIQUE: CT of the abdomen and pelvis was performed with the administration of intravenous contrast. Multiplanar reformatted images are provided for review. Automated exposure control, iterative reconstruction, and/or weight based adjustment of the mA/kV was utilized to reduce the radiation dose to as low as reasonably achievable. COMPARISON: 08/05/2021 HISTORY: ORDERING SYSTEM PROVIDED HISTORY: Abdominal pain, vomiting,. History of bowel obstruction and multiple abdominal surgery TECHNOLOGIST PROVIDED HISTORY: Abdominal pain, vomiting,. History of bowel obstruction and multiple abdominal surgery Decision Support Exception - unselect if not a suspected or confirmed emergency medical condition->Emergency Medical Condition (MA) FINDINGS: Lower Chest: Unremarkable Organs: There is moderate steatosis of the liver. The patient is status post cholecystectomy. The pancreas and spleen appear normal. The adrenal glands and kidneys appear normal. GI/Bowel: The stomach, small bowel loops and colon appear normal. There is no bowel distension or evidence of obstruction Pelvis: The bladder, and the rectum appear unremarkable. The patient is status post hysterectomy. Peritoneum/Retroperitone um: Unremarkable Bones/Soft Tissues: There are degenerative changes of the L3-L4 and L4-L5 discs with disc spacers in place. Pedicle screws and connecting rods are noted bilaterally at L5 and S1. IMPRESSION: No acute process identified. Status post cholecystectomy and hysterectomy. Degenerative and postoperative changes noted in the lower lumbar spine. [employer] [facility] [employer] Work Phone: Radiology Study observation (narrative) [facility] [facility] [employer] Work Phone: CT ABDOMEN PELVIS W IV CONTR AST Additional Contrast? NoneOrdered By: Jose Jo on 07-28-2022 [facility] [employer] Work Phone: Lactic Acidon 07-28-2022 Lactate [Moles/Vol] 1.3 mmol/L 0.5 - 2. 2 mmol/L [facility] Lipaseon 07-28-2022 Lipase [Catalytic activity/Vol] 30 U/L 13 - 60 U/L [facility] Microscopic Urinalysison Bacteria, UA 2+ Abnormal None [facility] Epithelial Cells UA 2 TO 5 [facility] Interpretation and review of laboratory results Abnormal [facility] Mucus, UA 1+ Abnormal None [facility] RBC, UA 0 TO 2 [facility] WBC, UA 0 TO 2 [facility] No Panel Informationon 07-28 [facility] Urinalysis with Reflex to Cu ltureon 07-28-2022 Bilirubin Urine Negative NEGATIVE [facility] [employer] Color, UA Yellow Yellow [facility] Glucose, Ur Negative NEGATIVE [facility] Interpretation and review of laboratory results Abnormal [facility] Ketones Ql (U) Negative NEGATIVE [facility] Leukocyte esterase Test strip Ql (U) Negative NEGATIVE [facility] Nitrite, Urine Negative NEGATIVE [facility] pH, UA 6.0 5.0 - 9.0 [facility] Protein, UA Negative NEGATIVE [facility] Specific [place], UA High 1.010 - 1.020 [facility] Turbidity UA Clear Clear [facility] Urine Hgb Negative NEGATIVE [facility] Urobilinogen, Urine Normal Normal [facility] MRI CERVICAL SPINE WO MARCIA Sarabia 05-08-2022 Multilevel degenerat farshad disc disease with uncovertebral and facet hypertrophy resulting in canal stenosis throughout the mid cervical spine. Bilateral foraminal narrowing as described above. [facility] EXAMINATION: MRI OF THE CERVICAL SPINE WITHOUT CONTRAST 05/07/2022 8:47 am TECHNIQUE: Multiplanar multisequence MRI of the cervical spine was performed without the administration of intravenous contrast. COMPARISON: CT cervical spine performed 05/01/2022. HISTORY: ORDERING SYSTEM PROVIDED HISTORY: Cervical radiculopathy at C6 TECHNOLOGIST PROVIDED HISTORY: Cervical myelopathy What is the sedation requirement?->None FINDINGS: BONES/ALIGNMENT: Vertebral body heights are maintained. There is age-appropriate bone marrow signal. There is multilevel degenerative disc disease with loss of disc signal. There is no disc space narrowing. There is no spondylolisthesis. SPINAL CORD: The spinal cord is normal in caliber and signal. SOFT TISSUES: Posterior paraspinal soft tissues are unremarkable. The prevertebral soft tissues are unremarkable. C2-C3: There is a disc osteophyte complex with uncovertebral hypertrophy. There is no canal stenosis or significant foraminal narrowing. C3-C4: There is a disc osteophyte complex with uncovertebral and facet hypertrophy. There is canal stenosis measuring 9 mm in AP dimension. There is mild to moderate right foraminal narrowing and no significant left foraminal narrowing. C4-C5: There is a disc osteophyte complex with uncovertebral and facet hypertrophy. There is canal stenosis measuring 9 mm in AP dimension. There is moderate right foraminal narrowing and no significant left foraminal narrowing. C5-C6: There is a disc osteophyte complex with uncovertebral and facet hypertrophy. There is canal stenosis measuring 8 mm in AP dimension. There is moderate to severe bilateral foraminal narrowing. C6-C7: There is a disc osteophyte complex with uncovertebral and facet hypertrophy. There is canal stenosis measuring 8 mm in AP dimension. There is severe left foraminal narrowing and no significant right foraminal narrowing. C7-T1: There is no significant disc protrusion, spinal canal stenosis or neural foraminal narrowing. [facility] Efren Bustamante MD - 05/08/2022 EXAMINATION: MRI OF THE CERVICAL SPINE WITHOUT CONTRAST 05/07/2022 8:47 am TECHNIQUE: Multiplanar multisequence MRI of the cervical spine was performed without the administration of intravenous contrast. COMPARISON: CT cervical spine performed 05/01/2022. HISTORY: ORDERING SYSTEM PROVIDED HISTORY: Cervical radiculopathy at C6 TECHNOLOGIST PROVIDED HISTORY: Cervical myelopathy What is the sedation requirement?->None FINDINGS: BONES/ALIGNMENT: Vertebral body heights are maintained. There is age-appropriate bone marrow signal. There is multilevel degenerative disc disease with loss of disc signal. There is no disc space narrowing. There is no spondylolisthesis. SPINAL CORD: The spinal cord is normal in caliber and signal. SOFT TISSUES: Posterior paraspinal soft tissues are unremarkable. The prevertebral soft tissues are unremarkable. C2-C3: There is a disc osteophyte complex with uncovertebral hypertrophy. There is no canal stenosis or significant foraminal narrowing. C3-C4: There is a disc osteophyte complex with uncovertebral and facet hypertrophy. There is canal stenosis measuring 9 mm in AP dimension. There is mild to moderate right foraminal narrowing and no significant left foraminal narrowing. C4-C5: There is a disc osteophyte complex with uncovertebral and facet hypertrophy. There is canal stenosis measuring 9 mm in AP dimension. There is moderate right foraminal narrowing and no significant left foraminal narrowing. C5-C6: There is a disc osteophyte complex with uncovertebral and facet hypertrophy. There is canal stenosis measuring 8 mm in AP dimension. There is moderate to severe bilateral foraminal narrowing. C6-C7: There is a disc osteophyte complex with uncovertebral and facet hypertrophy. There is canal stenosis measuring 8 mm in AP dimension. There is severe left foraminal narrowing and no significant right foraminal narrowing. C7-T1: There is no significant disc protrusion, spinal canal stenosis or neural foraminal narrowing. IMPRESSION: Multilevel degenerative disc disease with uncovertebral and facet hypertrophy resulting in canal stenosis throughout the mid cervical spine. Bilateral foraminal narrowing as described above. [employer] Phone: MRI CERVICAL SPINE WO CONTRA STOrdered By: Efren Zepeda on 05-08-2022 [employer] Phone: MRI CERVICAL SPINE WO CONTRA STon 05-07-2022 Radiology Study observation (narrative) [facility] [employer] Work Phone: CT CERVICAL SPINE WO CONTRAS Ton 05-01-2022 Jpih-ry-lhrimhof multilevel cervical degenerative disc disease. No acute fracture or subluxation. Straightening of the normal cervical lordosis which may be related to muscle spasm or position in collar. [facility] EXAMINATION: CT OF THE CERVICAL SPINE WITHOUT CONTRAST 05/01/2022 6:15 pm TECHNIQUE: CT of the cervical spine was performed without the administration of intravenous contrast. Multiplanar reformatted images are provided for review. Automated exposure control, iterative reconstruction, and/or weight based adjustment of the mA/kV was utilized to reduce the radiation dose to as low as reasonably achievable. COMPARISON: None. HISTORY: ORDERING SYSTEM PROVIDED HISTORY: Fall, weakness, right leg TECHNOLOGIST PROVIDED HISTORY: Fall, weakness, right leg Decision Support Exception - unselect if not a suspected or confirmed emergency medical condition->Emergency Medical Condition (MA) Is the patient ?->No FINDINGS: BONES/ALIGNMENT: Bone mineralization is normal. The vertebral bodies and posterior elements appear intact and appropriately aligned without acute fracture or subluxation. Vertebral body stature is maintained throughout. There is straightening of the normal cervical lordosis. DEGENERATIVE CHANGES: Lniu-eg-piezbuly multilevel cervical degenerative disc disease which is most pronounced at C6-C7. No significant uncovertebral joint hypertrophic change or bony neural foraminal narrowing. SOFT TISSUES: No paraspinal soft tissue abnormality. The visualized lung apices are grossly clear. [facility] Jose Francois MD - 05/01/2022 EXAMINATION: CT OF THE CERVICAL SPINE WITHOUT CONTRAST 05/01/2022 6:15 pm TECHNIQUE: CT of the cervical spine was performed without the administration of intravenous contrast. Multiplanar reformatted images are provided for review. Automated exposure control, iterative reconstruction, and/or weight based adjustment of the mA/kV was utilized to reduce the radiation dose to as low as reasonably achievable. COMPARISON: None. HISTORY: ORDERING SYSTEM PROVIDED HISTORY: Fall, weakness, right leg TECHNOLOGIST PROVIDED HISTORY: Fall, weakness, right leg Decision Support Exception - unselect if not a suspected or confirmed emergency medical condition->Emergency Medical Condition (MA) Is the patient ?->No FINDINGS: BONES/ALIGNMENT: Bone mineralization is normal. The vertebral bodies and posterior elements appear intact and appropriately aligned without acute fracture or subluxation. Vertebral body stature is maintained throughout. There is straightening of the normal cervical lordosis. DEGENERATIVE CHANGES: Ipwo-sy-ibwhkvfk multilevel cervical degenerative disc disease which is most pronounced at C6-C7. No significant uncovertebral joint hypertrophic change or bony neural foraminal narrowing. SOFT TISSUES: No paraspinal soft tissue abnormality. The visualized lung apices are grossly clear. IMPRESSION: Hmei-as-lyfdwnyu multilevel cervical degenerative disc disease. No acute fracture or subluxation. Straightening of the normal cervical lordosis which may be related to muscle spasm or position in collar. [employer] Phone: [employer] Phone: Radiology Study observation (narrative) [employer] Phone: CT Head WO Contraston 2021 Unremarkable noncont rast head CT study. [facility] EXAMINATION: CT OF THE HEAD WITHOUT CONTRAST 05/01/2022 6:15 pm TECHNIQUE: CT of the head was performed without the administration of intravenous contrast. Automated exposure control, iterative reconstruction, and/or weight based adjustment of the mA/kV was utilized to reduce the radiation dose to as low as reasonably achievable. COMPARISON: October 20, 2021 HISTORY: ORDERING SYSTEM PROVIDED HISTORY: Fall, MOHAN TECHNOLOGIST PROVIDED HISTORY: Fall, MOHAN Decision Support Exception - unselect if not a suspected or confirmed emergency medical condition->Emergency Medical Condition (MA) Is the patient ?->No FINDINGS: BRAIN/VENTRICLES: The gyri and sulci have a normal appearance. Ventricles and extra-axial spaces appear normal. The mendez-white matter differentiation is preserved throughout. There is no acute intracranial hemorrhage. No intra-axial or extra-axial mass or findings of mass effect. No shift of midline structures. No abnormal extra-axial fluid collections. No acute territorial infarct. ORBITS: The visualized portion of the orbits demonstrate no acute abnormality. SINUSES: The mastoid air cells are normally aerated. The visualized paranasal sinuses are grossly clear. SOFT TISSUES/SKULL: No significant abnormality of the visualized skull or soft tissues. No acute fracture. No scalp hematoma. [facility] Jose Francois MD - 05/01/2022 EXAMINATION: CT OF THE HEAD WITHOUT CONTRAST 05/01/2022 6:15 pm TECHNIQUE: CT of the head was performed without the administration of intravenous contrast. Automated exposure control, iterative reconstruction, and/or weight based adjustment of the mA/kV was utilized to reduce the radiation dose to as low as reasonably achievable. COMPARISON: October 20, 2021 HISTORY: ORDERING SYSTEM PROVIDED HISTORY: Fall, MOHAN TECHNOLOGIST PROVIDED HISTORY: Fall, MOHAN Decision Support Exception - unselect if not a suspected or confirmed emergency medical condition->Emergency Medical Condition (MA) Is the patient ?->No FINDINGS: BRAIN/VENTRICLES: The gyri and sulci have a normal appearance. Ventricles and extra-axial spaces appear normal. The mendez-white matter differentiation is preserved throughout. There is no acute intracranial hemorrhage. No intra-axial or extra-axial mass or findings of mass effect. No shift of midline structures. No abnormal extra-axial fluid collections. No acute territorial infarct. ORBITS: The visualized portion of the orbits demonstrate no acute abnormality. SINUSES: The mastoid air cells are normally aerated. The visualized paranasal sinuses are grossly clear. SOFT TISSUES/SKULL: No significant abnormality of the visualized skull or soft tissues. No acute fracture. No scalp hematoma. IMPRESSION: Unremarkable noncontrast head CT study. [employer] Phone: Radiology Study observation (narrative) [employer] Phone: CT Head WO ContrastOrdered B y: Jose Francois on 05-01-2022 [employer] Phone: CT LUMBAR SPINE WO CONTRASTo n 05-01-2022 No fracture. At L1-L2, right foraminal/extraforaminal disc protrusion impinges on right L1 nerve root and moderate right neural foraminal narrowing Changes related to instrumented posterior fusion at L5-S1. Changes related to instrumented disc space fusion at L3-L4 and L4-L5 and L5-S1. 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 RECOMMENDATIONS: Unavailable [facility] EXAMINATION: CT OF THE LUMBAR SPINE WITHOUT CONTRAST 05/01/2022 TECHNIQUE: CT of the lumbar spine was performed without the administration of intravenous contrast. Multiplanar reformatted images are provided for review. Adjustment of mA and/or kV according to patient size was utilized. Automated exposure control, iterative reconstruction, and/or weight based adjustment of the mA/kV was utilized to reduce the radiation dose to as low as reasonably achievable. COMPARISON: None HISTORY: ORDERING SYSTEM PROVIDED HISTORY: Fall, weakness right leg TECHNOLOGIST PROVIDED HISTORY: Fall, weakness right leg Decision Support Exception - unselect if not a suspected or confirmed emergency medical condition->Emergency Medical Condition (MA) Is the patient ?->No FINDINGS: BONES/ALIGNMENT: There is normal alignment of the spine. The vertebral body heights are maintained. No osseous destructive lesion is seen. DEGENERATIVE CHANGES: At L1-L2, grade 1 retrolisthesis and 5 mm right foraminal/extraforaminal disc protrusion impinging on exiting right L1 nerve root. Findings resulting moderate right neural foraminal narrowing. At L2-L3, grade 1 retrolisthesis. Mild bilateral facet arthropathy. No canal or foraminal stenosis. At L3-L4, changes related to instrumented disc space fusion. Mild bilateral facet arthropathy. Mild right neural foraminal narrowing. 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 At L4-L5, instrumented disc space fusion. Mild bilateral facet arthropathy. Moderate right neural foraminal narrowing. At L5-S1, instrumented disc space fusion. Changes related to instrumented posterior fusion and disc space fusion. Bilateral laminectomy defects. Moderate bilateral set arthropathy. Severe left and mild right neural foraminal narrowing SOFT TISSUES/RETROPERITONEUM: No paraspinal mass is seen. [facility] Teresa Herzog MD - 05/01/2022 EXAMINATION: CT OF THE LUMBAR SPINE WITHOUT CONTRAST 05/01/2022 TECHNIQUE: CT of the lumbar spine was performed without the administration of intravenous contrast. Multiplanar reformatted images are provided for review. Adjustment of mA and/or kV according to patient size was utilized. Automated exposure control, iterative reconstruction, and/or weight based adjustment of the mA/kV was utilized to reduce the radiation dose to as low as reasonably achievable. COMPARISON: None HISTORY: ORDERING SYSTEM PROVIDED HISTORY: Fall, weakness right leg TECHNOLOGIST PROVIDED HISTORY: Fall, weakness right leg Decision Support Exception - unselect if not a suspected or confirmed emergency medical condition->Emergency Medical Condition (MA) Is the patient ?->No FINDINGS: BONES/ALIGNMENT: There is normal alignment of the spine. The vertebral body heights are maintained. No osseous destructive lesion is seen. DEGENERATIVE CHANGES: At L1-L2, grade 1 retrolisthesis and 5 mm right foraminal/extraforaminal disc protrusion impinging on exiting right L1 nerve root. Findings resulting moderate right neural foraminal narrowing. At L2-L3, grade 1 retrolisthesis. Mild bilateral facet arthropathy. No canal or foraminal stenosis. At L3-L4, changes related to instrumented disc space fusion. Mild bilateral facet arthropathy. Mild right neural foraminal narrowing. 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 At L4-L5, instrumented disc space fusion. Mild bilateral facet arthropathy. Moderate right neural foraminal narrowing. At L5-S1, instrumented disc space fusion. Changes related to instrumented posterior fusion and disc space fusion. Bilateral laminectomy defects. Moderate bilateral set arthropathy. Severe left and mild right neural foraminal narrowing SOFT TISSUES/RETROPERITONEUM: No paraspinal mass is seen. IMPRESSION: No fracture. At L1-L2, right foraminal/extraforaminal disc protrusion impinges on right L1 nerve root and moderate right neural foraminal narrowing Changes related to instrumented posterior fusion at L5-S1. Changes related to instrumented disc space fusion at L3-L4 and L4-L5 and L5-S1. 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 RECOMMENDATIONS: Unavailable [employer] Phone: Radiology Study observation (narrative) [employer] Phone: CT LUMBAR SPINE WO MALCOLMO rdered By: Teresa Herzog on 05-01-2022 [employer] Phone: CT THORACIC SPINE WO CONTRAS Ton 05-01-20[address] mult[address] acic degenerative disc disease. No acute fracture or subluxation. [facility] EXAMINATION: CT OF THE THORACIC SPINE WITHOUT CONTRAST 05/01/2022 6:15 pm: TECHNIQUE: CT of the thoracic spine was performed without the administration of intravenous contrast. Multiplanar reformatted images are provided for review. Automated exposure control, iterative reconstruction, and/or weight based adjustment of the mA/kV was utilized to reduce the radiation dose to as low as reasonably achievable. COMPARISON: None. HISTORY: ORDERING SYSTEM PROVIDED HISTORY: Fall, weakness right leg TECHNOLOGIST PROVIDED HISTORY: Fall, weakness right leg Is the patient ?->No FINDINGS: BONES/ALIGNMENT: Bone mineralization is normal. The vertebral bodies and posterior elements appear intact and appropriately aligned without acute fracture or subluxation. Vertebral body stature is maintained throughout as is the normal thoracic kyphosis. DEGENERATIVE CHANGES: There is mild multilevel thoracic degenerative disc disease. No significant bony neural foraminal narrowing. SOFT TISSUES: No paraspinal soft tissue abnormality. [facility] Jose Francois MD - 05/01/2022 EXAMINATION: CT OF THE THORACIC SPINE WITHOUT CONTRAST 05/01/2022 6:15 pm: TECHNIQUE: CT of the thoracic spine was performed without the administration of intravenous contrast. Multiplanar reformatted images are provided for review. Automated exposure control, iterative reconstruction, and/or weight based adjustment of the mA/kV was utilized to reduce the radiation dose to as low as reasonably achievable. COMPARISON: None. HISTORY: ORDERING SYSTEM PROVIDED HISTORY: Fall, weakness right leg TECHNOLOGIST PROVIDED HISTORY: Fall, weakness right leg Is the patient ?->No FINDINGS: BONES/ALIGNMENT: Bone mineralization is normal. The vertebral bodies and posterior elements appear intact and appropriately aligned without acute fracture or subluxation. Vertebral body stature is maintained throughout as is the normal thoracic kyphosis. DEGENERATIVE CHANGES: There is mild multilevel thoracic degenerative disc disease. No significant bony neural foraminal narrowing. SOFT TISSUES: No paraspinal soft tissue abnormality. IMPRESSION: Mild multilevel thoracic degenerative disc disease. No acute fracture or subluxation. [facility] Work Phone: [employer] Phone: Radiology Study observation (narrative) [employer] Phone: No Panel Informationon 05-01 Radiology Study observation (narrative) [employer] Phone: Radiology Study observation (narrative) [employer] Phone: Radiology Study observation (narrative) [employer] Phone: XR ANKLE RIGHT (MIN 3 VIEWS) on 05-01-2022 No acute findings in the right ankle. [facility] EXAM: XR Right Ankle Complete, 3 or More Views EXAM DATE/TIME: 05/01/2022 7:21 pm CLINICAL HISTORY: ORDERING SYSTEM PROVIDED fall TECHNOLOGIST PROVIDED HISTORY: fall TECHNIQUE: Frontal, lateral and oblique views of the right ankle. COMPARISON: 01/29/2021 FINDINGS: Bones/joints: No acute findings. No acute fracture. No dislocation. Soft tissues: No acute findings. [facility] Hector Odonnell MD - 05/01/2022 EXAM: XR Right Ankle Complete, 3 or More Views EXAM DATE/TIME: 05/01/2022 7:21 pm CLINICAL HISTORY: ORDERING SYSTEM PROVIDED fall TECHNOLOGIST PROVIDED HISTORY: fall TECHNIQUE: Frontal, lateral and oblique views of the right ankle. COMPARISON: 01/29/2021 FINDINGS: Bones/joints: No acute findings. No acute fracture. No dislocation. Soft tissues: No acute findings. IMPRESSION: No acute findings in the right ankle. [facility] [employer] Phone: [employer] [facility] Phone: XR ELBOW RIGHT (MIN 3 VIEWS) on 05-01-2022 No acute findings in the right elbow. [facility] EXAM: XR Right Elbow Complete, 3 or More Views EXAM DATE/TIME: 05/01/2022 7:21 pm CLINICAL HISTORY: ORDERING SYSTEM PROVIDED Fall TECHNOLOGIST PROVIDED HISTORY: Fall TECHNIQUE: Frontal, lateral and oblique views of the right elbow. COMPARISON: No relevant prior studies available. FINDINGS: Bones/joints: No acute findings. No acute fracture. No dislocation. Soft tissues: No acute findings. [facility] Hector Odonnell MD - 05/01/2022 EXAM: XR Right Elbow Complete, 3 or More Views EXAM DATE/TIME: 05/01/2022 7:21 pm CLINICAL HISTORY: ORDERING SYSTEM PROVIDED Fall TECHNOLOGIST PROVIDED HISTORY: Fall TECHNIQUE: Frontal, lateral and oblique views of the right elbow. COMPARISON: No relevant prior studies available. FINDINGS: Bones/joints: No acute findings. No acute fracture. No dislocation. Soft tissues: No acute findings. IMPRESSION: No acute findings in the right elbow. [employer] Phone: XR ELBOW RIGHT (MIN 3 VIEWS) Ordered By: Hector Odonnell on 05-01-2022 [employer] Phone: XR FOOT RIGHT (MIN 3 VIEWS)o n 05-01-2022 No acute findings in the right foot. [facility] EXAM: XR Right Foot Complete, 3 or More Views EXAM DATE/TIME: 05/01/2022 7:21 pm CLINICAL HISTORY: ORDERING SYSTEM PROVIDED fall TECHNOLOGIST PROVIDED HISTORY: fall TECHNIQUE: Frontal, lateral and oblique views of the right foot. COMPARISON: 01/21/2022 FINDINGS: Bones/joints: No acute findings. No acute fracture. No dislocation. Soft tissues: No acute findings. No radiopaque foreign body. [facility] Hector Odonnell MD - 05/01/2022 EXAM: XR Right Foot Complete, 3 or More Views EXAM DATE/TIME: 05/01/2022 7:21 pm CLINICAL HISTORY: ORDERING SYSTEM PROVIDED fall TECHNOLOGIST PROVIDED HISTORY: fall TECHNIQUE: Frontal, lateral and oblique views of the right foot. COMPARISON: 01/21/2022 FINDINGS: Bones/joints: No acute findings. No acute fracture. No dislocation. Soft tissues: No acute findings. No radiopaque foreign body. IMPRESSION: No acute findings in the right foot. [employer] Phone: [employer] Phone: XR KNEE RIGHT (3 VIEWS)on No acute findings in the right knee. [facility] EXAM: XR Right Knee, 3 Views EXAM DATE/TIME: 05/01/2022 7:21 pm CLINICAL HISTORY: ORDERING SYSTEM PROVIDED fall TECHNOLOGIST PROVIDED HISTORY: fall TECHNIQUE: Three views of the right knee. COMPARISON: 01/27/2008 FINDINGS: Bones/joints: No acute findings. No acute fracture. No dislocation. Soft tissues: No acute findings. [facility] Hector Odonnell MD - 05/01/2022 EXAM: XR Right Knee, 3 Views EXAM DATE/TIME: 05/01/2022 7:21 pm CLINICAL HISTORY: ORDERING SYSTEM PROVIDED fall TECHNOLOGIST PROVIDED HISTORY: fall TECHNIQUE: Three views of the right knee. COMPARISON: 01/27/2008 FINDINGS: Bones/joints: No acute findings. No acute fracture. No dislocation. Soft tissues: No acute findings. IMPRESSION: No acute findings in the right knee. [employer] Phone: [employer] Phone: XR RADIUS ULNA RIGHT (2 VIEW S)on 05-01-2022 No acute findings in the right forearm. [facility] EXAM: XR Right Forearm, 2 Views EXAM DATE/TIME: 05/01/2022 7:21 pm CLINICAL HISTORY: ORDERING SYSTEM PROVIDED Fall TECHNOLOGIST PROVIDED HISTORY: Fall TECHNIQUE: Frontal and lateral views of the right forearm. COMPARISON: No relevant prior studies available. FINDINGS: Bones/joints: No acute findings. No acute fracture. No dislocation. Soft tissues: No acute findings. [facility] Hector Odonnell MD - 05/01/2022 EXAM: XR Right Forearm, 2 Views EXAM DATE/TIME: 05/01/2022 7:21 pm CLINICAL HISTORY: ORDERING SYSTEM PROVIDED Fall TECHNOLOGIST PROVIDED HISTORY: Fall TECHNIQUE: Frontal and lateral views of the right forearm. COMPARISON: No relevant prior studies available. FINDINGS: Bones/joints: No acute findings. No acute fracture. No dislocation. Soft tissues: No acute findings. IMPRESSION: No acute findings in the right forearm. [employer] Phone: [employer] Phone: XR TIBIA FIBULA RIGHT (2 VIE WS)on 05-01-2022 No acute findings in the right tibia and fibula or surrounding soft tissues. [facility] EXAM: XR Right Tibia and Fibula, 2 Views EXAM DATE/TIME: 05/01/2022 7:21 pm CLINICAL HISTORY: ORDERING SYSTEM PROVIDED fall TECHNOLOGIST PROVIDED HISTORY: fall TECHNIQUE: Frontal and lateral views of the right tibia and fibula. COMPARISON: 02/21/2016 FINDINGS: Bones/joints: No acute findings. No acute fracture. No dislocation. Soft tissues: No acute findings. No radiopaque foreign body. [facility] Hector Odonnell MD - 05/01/2022 EXAM: XR Right Tibia and Fibula, 2 Views EXAM DATE/TIME: 05/01/2022 7:21 pm CLINICAL HISTORY: ORDERING SYSTEM PROVIDED fall TECHNOLOGIST PROVIDED HISTORY: fall TECHNIQUE: Frontal and lateral views of the right tibia and fibula. COMPARISON: 02/21/2016 FINDINGS: Bones/joints: No acute findings. No acute fracture. No dislocation. Soft tissues: No acute findings. No radiopaque foreign body. IMPRESSION: No acute findings in the right tibia and fibula or surrounding soft tissues. [facility] Work Phone: [facility] Work Phone: US ABDOMEN LIMITED Specify o rgan? (hernia)on 02-03-2022 Prior cholecystectom y with otherwise unremarkable exam RECOMMENDATIONS: Unavailable [facility] EXAMINATION: RIGHT UPPER QUADRANT ULTRASOUND 02/03/2022 10:34 am COMPARISON: None. HISTORY: ORDERING SYSTEM PROVIDED HISTORY: Abdominal pain, generalized TECHNOLOGIST PROVIDED HISTORY: hernia Specify organ?-> FINDINGS: LIVER: The liver demonstrates normal echogenicity without evidence of intrahepatic biliary ductal dilatation. Hepatopetal flow portal vein. BILIARY SYSTEM: Prior cholecystectomy Common bile duct is within normal limits measuring 4.8 mm. RIGHT KIDNEY: The right kidney is grossly unremarkable without evidence of hydronephrosis. PANCREAS: Visualized portions of the pancreas are unremarkable. OTHER: No evidence of right upper quadrant ascites. [facility] [facility] Sal Mena DO - 02/03/2022 EXAMINATION: RIGHT UPPER QUADRANT ULTRASOUND 02/03/2022 10:34 am COMPARISON: None. HISTORY: ORDERING SYSTEM PROVIDED HISTORY: Abdominal pain, generalized TECHNOLOGIST PROVIDED HISTORY: hernia Specify organ?-> FINDINGS: LIVER: The liver demonstrates normal echogenicity without evidence of intrahepatic biliary ductal dilatation. Hepatopetal flow portal vein. BILIARY SYSTEM: Prior cholecystectomy Common bile duct is within normal limits measuring 4.8 mm. RIGHT KIDNEY: The right kidney is grossly unremarkable without evidence of hydronephrosis. PANCREAS: Visualized portions of the pancreas are unremarkable. OTHER: No evidence of right upper quadrant ascites. IMPRESSION: Prior cholecystectomy with otherwise unremarkable exam RECOMMENDATIONS: Unavailable [facility] Work Phone: Radiology Study observation (narrative) [employer] Phone: US ABDOMEN LIMITED Specify o rgan? (hernia)Ordered By: Sal Mena on 02-03-2022 [facility] Work Phone: COVID-19, Rapidon 12-19-2021 SARS-CoV-2 (COVID-19) RNA FAUSTINA+probe Ql (Unsp spec) Not detected Not Detected [facility] Comment on above: Rapid NAAT: The specimen is NEGATIVE for SARS-CoV-2, the novel coronavirus associated with COVID-19. The ID NOW COVID-19 assay is designed to detect the virus that causes COVID-19 in patients with signs and symptoms of infection who are suspected of COVID-19. An individual without symptoms of COVID-19 and who is not shedding SARS-CoV-2 virus would expect to have a negative (not detected) result in this assay. Negative results should be treated as presumptive and, if inconsistent with clinical signs and symptoms or necessary for patient management, should be tested with an alternative molecular assay. Negative results do not preclude SARS-CoV-2 infection and should not be used as the sole basis for patient management decisions. Fact sheet for Healthcare Providers: https://www.fda.gov/media/435252/download Fact sheet for Patients: https://www.fda.gov/media/732093/download Methodology: Isothermal Nucleic Acid Amplification Specimen Description .NASOPHARYNGEAL SWAB [employer] Strep Screen Group A Throato n 12-19-2021 S. pyogenes Ag Ql (Throat) Negative NEGATIVE [facility] Comment on above: Rapid Strep A negati ve. A negative Rapid Group A Strep Screen result does not rule out the possibility of Group A Streptococci in the specimen. A Group A Strep DNA test is available upon request. Source .THROAT SWAB [facility] XR CERVICAL SPINE (4-5 VIEWS )on 11-21-2021 1. No acute cervical fracture or listhesis. 2. Mild degenerative disc disease and spondylosis C6-7. 3. If pain persists or worsens, then additional evaluation with CT or MRI may be indicated. Note that CT cervical spine is the study of choice for evaluation of acute trauma. [facility] EXAMINATION: 6 XRAY VIEWS OF THE CERVICAL SPINE 11/21/2021 7:48 pm COMPARISON: C-spine series 05/06/2015 HISTORY: ORDERING SYSTEM PROVIDED HISTORY: neck pain FINDINGS: 8 images are presented. 7 typical cervical vertebra present maintain normal height and alignment. Bony spinal canal and paravertebral soft tissues appear unremarkable. Mild degenerative disc disease and spondylosis C6-7. The other disc spaces and posterior elements appear well maintained throughout. Neural foramina appear widely patent on oblique views. The uncovertebral joints appear normally aligned on AP view. The atlantoaxial articulation appears normally aligned. No discrete odontoid fracture is evident. [facility] Rickey Kwan MD - 11/21/2021 EXAMINATION: 6 XRAY VIEWS OF THE CERVICAL SPINE 11/21/2021 7:48 pm COMPARISON: C-spine series 05/06/2015 HISTORY: ORDERING SYSTEM PROVIDED HISTORY: neck pain FINDINGS: 8 images are presented. 7 typical cervical vertebra present maintain normal height and alignment. Bony spinal canal and paravertebral soft tissues appear unremarkable. Mild degenerative disc disease and spondylosis C6-7. The other disc spaces and posterior elements appear well maintained throughout. Neural foramina appear widely patent on oblique views. The uncovertebral joints appear normally aligned on AP view. The atlantoaxial articulation appears normally aligned. No discrete odontoid fracture is evident. IMPRESSION: 1. No acute cervical fracture or listhesis. 2. Mild degenerative disc disease and spondylosis C6-7. 3. If pain persists or worsens, then additional evaluation with CT or MRI may be indicated. Note that CT cervical spine is the study of choice for evaluation of acute trauma. [facility]: [employer] Phone: Radiology Study observation (narrative) Mikaela sanchez Work Phone: XR SHOULDER LEFT (MIN 2 VIEW S)on 11-21-2021 No acute osseous abnormality. Follow-up imaging recommended if pain persists or worsens following conservative management. [facility] EXAMINATION: 3 XRAY VIEWS OF THE LEFT SHOULDER 11/21/2021 7:47 pm COMPARISON: Left shoulder radiograph series 06/06/2021 HISTORY: ORDERING SYSTEM PROVIDED HISTORY: pain TECHNOLOGIST PROVIDED HISTORY: pain FINDINGS: Osseous structures of the left shoulder are intact and aligned normally. No retained radiopaque foreign body. Visualized portions of the upper outer left hemithorax appear unremarkable. [facility] Rickey Kwan MD - 11/21/2021 EXAMINATION: 3 XRAY VIEWS OF THE LEFT SHOULDER 11/21/2021 7:47 pm COMPARISON: Left shoulder radiograph series 06/06/2021 HISTORY: ORDERING SYSTEM PROVIDED HISTORY: pain TECHNOLOGIST PROVIDED HISTORY: pain FINDINGS: Osseous structures of the left shoulder are intact and aligned normally. No retained radiopaque foreign body. Visualized portions of the upper outer left hemithorax appear unremarkable. IMPRESSION: No acute osseous abnormality. Follow-up imaging recommended if pain persists or worsens following conservative management. [employer] Phone: Radiology Study observation (narrative) Mikaela sanchez Work Phone: XR SHOULDER LEFT (MIN 2 VIEW S)Ordered By: Rickey Kwan on 11-21-2021 [employer] Work Phone: Catheterization and angiogra phy procedure details panelon 11-06-2021 Cardiac Diagnostic Report Demographics Patient ADRIÁN Bee Date of Study 11/06/2021 Name Date of 1975 Gender Female Age 45 year(s) Race Room [id number]^MICHAEL^RONAN Height: 64 inch, 162.56 cm Number Corporate [id number] Weight: 191 pounds, 86.8 kg ID # Patient [id number] BSA: 1.92 m^2 BMI: 32.85 Acct # kg/m^2 MR # [id number] Performing Physician Ronan Rodriguez Referring Physician # Assisting Physician Additional Comments ASA & Mallampati documented in Epic by Physician. H&P reviewed and patient examined by performing physician prior to the procedure on 11/06/2021 at 1107 No changes noted. If changes, see note below. ASA Classification II / Mallampati 2 : per Physician. Patient medications reviewed by Physician prior to procedure. 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 Normal left ventricular end diastolic pressure. (LVEDP). Recommendations Proceed with risk factor modification as clinically indicated. Consider additional workup to evaluate for other etiologies of the patient symptoms if clinically indicated. Signature Angiographic Findings Cardiac Arteries and Lesion Findings LMCA: Normal 0% stenosis. LAD: Lesion on Prox LAD: Ostial.90% stenosis. Comments:The size of this vessel at the location of the stenosis was less than 2 mm in diameter and therefore likely to be un-treatable by angioplasty and/or stenting. Furthermore, this vessel appears to be jailed by the LAD stent. LCx: Lesion on Prox CX: Ostial.30% stenosis. Coronary Tree Dominance: Left LV function assessed as:Normal. Ejection Fraction + +--- ---+ !Method !EF% ! + +--- ---+ !Echocardiography !55 ! + +--- ---+ Ventriculography Findings: Normal left ventricular end diastolic pressure (LVEDP) with no significant aortic valve gradient seen on pull-back across the aortic valve. Procedure Data Procedure Start Time: 11/06/2021 11:18. Procedure End Time: 11/06/2021 11:36. The procedure was explained in detail to the patient. Risks, complications and alternative treatments were reviewed. Written consent was obtained. Diagnostic Cath Status: Elective Entry Locations - Retrograde Percutaneous access was performed through the Left Radial artery. A 6 Fr sheath was inserted. Hemostasis was successfully obtained using Pressure Dressing. Procedure Medications: - Versed I.V. 1 mg. - Fentanyl I.V. 25 mcg. - Lidocaine HCl 1% 10mg/ml S.Q. 3 ml. - Versed I.V. 1 mg. - 0.9 % NaCl I.V. bolus 1000 ml/hr. - Heparin I.V. bolus 5000 units. Catheters and Wires: - 6F Catheter JR 4 was used for LV Pressure. - 6F Catheter JL 4 was used for Left coronary angiography. Contrast Material: - Isovue 78082 ml Fluoroscopy Time: Diagnostic: 1:09 minutes. Total: 1:09 minutes. Estimated Blood Loss: 5 ml. Medical History Performed Procedures and Imaging Results - Stress testing with SPECT MPIwas performed. Results were: Positive. Risk/Extent of ischemia was: Intermediate risk. Allergies - Cephalosporins. - Plavix. Risk Factors The patient risk factors include:treated hypercholesterolemia, treated hypertension, last creatinine: 0.7 mg/dl, creatinine clearance: 139.07 ml/min, dyslipidemia and former tobacco use. Admission Data Admission Date: 11/06/2021 Admission Status: Outpatient. Pre Admission Medications + +------+----- + --+ +------- ---+ !Medication!Dosage!Times Per Day !Start date !Stop date !Comments ! + +------+----- + --+ +------- ---+ !Aspirin !81 mg ! ! ! ! ! + +------+----- + --+ +------- ---+ -The patient shows CHF sympto (more content not included)... [facility] Ronan Rodriguez MD - 11/06/2021 Cardiac Diagnostic Report Demographics Patient ADRIÁN Bee Date of Study 11/06/2021 Name Date of 1975 Gender Female Age 45 year(s) Race Room [id number]^MICHAEL^RONAN Height: 64 inch, 162.56 cm Number Corporate [id number] Weight: 191 pounds, 86.8 kg ID # Patient [id number] BSA: 1.92 m^2 BMI: 32.85 Acct # kg/m^2 MR # [id number] Performing Physician Ronan Rodriguez Referring Physician # Assisting Physician Additional Comments ASA & Mallampati documented in Epic by Physician. H&P reviewed and patient examined by performing physician prior to the procedure on 11/06/2021 at 1107 No changes noted. If changes, see note below. ASA Classification II / Mallampati 2 : per Physician. Patient medications reviewed by Physician prior to procedure. 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 Normal left ventricular end diastolic pressure. (LVEDP). Recommendations Proceed with risk factor modification as clinically indicated. Consider additional workup to evaluate for other etiologies of the patient symptoms if clinically indicated. Signature Angiographic Findings Cardiac Arteries and Lesion Findings LMCA: Normal 0% stenosis. LAD: Lesion on Prox LAD: Ostial.90% stenosis. Comments:The size of this vessel at the location of the stenosis was less than 2 mm in diameter and therefore likely to be un-treatable by angioplasty and/or stenting. Furthermore, this vessel appears to be jailed by the LAD stent. LCx: Lesion on Prox CX: Ostial.30% stenosis. Coronary Tree Dominance: Left LV function assessed as:Normal. Ejection Fraction + +--- --- + !Method !EF% ! + +--- --- + !Echocardiography !55 ! + +--- --- + Ventriculography Findings: Normal left ventricular end diastolic pressure (LVEDP) with no significant aortic valve gradient seen on pull-back across the aortic valve. Procedure Data Procedure Start Time: 11/06/2021 11:18. Procedure End Time: 11/06/2021 11:36. The procedure was explained in detail to the patient. Risks, complications and alternative treatments were reviewed. Written consent was obtained. Diagnostic Cath Status: Elective Entry Locations - Retrograde Percutaneous access was performed through the Left Radial artery. A 6 Fr sheath was inserted. Hemostasis was successfully obtained using Pressure Dressing. Procedure Medications: - Versed I.V. 1 mg. - Fentanyl I.V. 25 mcg. - Lidocaine HCl 1% 10mg/ml S.Q. 3 ml. - Versed I.V. 1 mg. - 0.9 % NaCl I.V. bolus 1000 ml/hr. - Heparin I.V. bolus 5000 units. Catheters and Wires: - 6F Catheter JR 4 was used for LV Pressure. - 6F Catheter JL 4 was used for Left coronary angiography. Contrast Material: - Isovue 98582 ml Fluoroscopy Time: Diagnostic: 1:09 minutes. Total: 1:09 minutes. Estimated Blood Loss: 5 ml. Medical History Performed Procedures and Imaging Results - Stress testing with SPECT MPIwas performed. Results were: Positive. Risk/Extent of ischemia was: Intermediate risk. Allergies - Cephalosporins. - Plavix. Risk Factors The patient risk factors include:treated hypercholesterolemia, treated hypertension, last creatinine: 0.7 mg/dl, creatinine clearance: 139.07 ml/min, dyslipidemia and former tobacco use. Admission Data Admission Date: 11/06/2021 Admission Status: Outpatient. Pre Admission Medications + +------+----- + --+ +------- --- + !Medication!Dosage!Times Per Day !Start date !Stop date !Comments ! + +------+----- + --+ +------- --- + !Aspirin !81 mg ! ! ! ! ! + +------+----- + --+ +------- --- + -The patient shows CHF symptoms of LAIRD. 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 Hemodynamics Condition: Baseline Room Air Estimated: 181.71Heart Rate: 57 bpm Pressure +-----+ --- + !Site !Pressure ! +-----+ (more content not included)... [employer]: [employer] Phone: Catheterization and angiogra phy procedure details panelOrdered By: Unknown Result on 11-06-2021 [facility] Catheterization and angiogra phy procedure details panelOrdered By: Unknown Result on 10-30-2021 [facility] Basic Metab w/rfx MGon 10-23 (cont.) Normal [place] Comment on above: Result Comment: Aver age GFR for 40-49 years old: 99 mL/min/1.73sq m Chronic Kidney Disease: <60 mL/min/1.73sq m Kidney failure: <15 mL/min/1.73sq m eGFR calculated using average adult body mass. Additional eGFR calculator available at: http://www.Girls[employer]Guys.com.[employer]/multiple_crcl_2011.htm Performed By: #### C DP, BMPX #### [facility] [address] [place] [address] Telephone Operator Receptionist: Darius Sarah MD Anion gap [Moles/Vol] 12 mmol/L Normal 9-17 [facility] Comment on above: Performed By: #### C DP, BMPX #### [facility] [address] [place] [address] Telephone Operator Receptionist: Darius Sarah MD Calcium [Mass/Vol] 8.9 mg/dL Normal 8.6-10.4 [place] Comment on above: Performed By: #### C DP, BMPX #### [facility] [address] [place] [address] Telephone Operator Receptionist: Darius Sarah MD Chloride [Moles/Vol] 104 mmol/L Normal 98-107 [facility] Comment on above: Performed By: #### C DP, BMPX #### [facility] [address] [place] [address] Telephone Operator Receptionist: Darius Sarah MD CO2 [Moles/Vol] 19 mmol/L Low 20-31 [place] Comment on above: Performed By: #### C DP, BMPX #### [facility] [address] [place] [address] Telephone Operator Receptionist: Darius Sarah MD Creatinine [Mass/Vol] 0.76 mg/dL Normal 0.50-0.90 [facility] Comment on above: Performed By: #### C DP, BMPX #### [facility] [address] [place] [address] Telephone Operator Receptionist: Darius Sarah MD GFR, Amer >60 Normal >60 [facility] Comment on above: Performed By: #### C DP, BMPX #### [facility] [address] [place] [address] Telephone Operator Receptionist: Darius Sarah MD GFR,non Amer >60 Normal >60 [facility] Comment on above: Performed By: #### C DP, BMPX #### [facility] [address] [place] [address] Telephone Operator Receptionist: Darius Sarah MD Glucose [Mass/Vol] 112 mg/dL High 70-99 [place] Comment on above: Performed By: #### C DP, BMPX #### [facility] [address] [place] [address] Telephone Operator Receptionist: Darius Sarah MD Potassium [Moles/Vol] 3.6 mmol/L Low 3.7-5.3 [facility] Comment on above: Performed By: #### C DP, BMPX #### [facility] [address] [place] [address] Telephone Operator Receptionist: Darius Sarah MD Sodium [Moles/Vol] 135 mmol/L Normal 135-144 [place] Comment on above: Performed By: #### C DP, BMPX #### [facility] [address] [place] [address] Telephone Operator Receptionist: Darius Sarah MD Urea nitrogen [Mass/Vol] 12 mg/dL Normal 6-20 [place] Comment on above: Performed By: #### C DP, BMPX #### [facility] [address] [place] [address] Telephone Operator Receptionist: Darius Sarah MD Basic Metabolic Panel w/ Ref golden to MGon 10-23-2021 Anion gap [Moles/Vol] 12 mmol/L 9 - 17 mmol/L [facility] Calcium [Mass/Vol] 8.9 mg/dL 8.6 - 10. 4 mg/dL [facility] Chloride [Moles/Vol] 104 mmol/L 98 - 10 7 mmol/L [facility] CO2 [Moles/Vol] 19 mmol/L Low 20 - 31 mmol/L [facility] Creatinine [Mass/Vol] 0.76 mg/dL 0.50 - 0.90 mg/dL [facility] GFR >60 >60 mL/min [facility] Imagiin. GFR Non- >60 >60 mL/min [facility] GFR/1.73 sq M.predicted MDRD (S/P/Bld) [Vol rate/Area] [facility] Comment on above: Average GFR for 40-4 9 years old: 99 mL/min/1.73sq m Chronic Kidney Disease: <60 mL/min/1.73sq m Kidney failure: <15 mL/min/1.73sq m eGFR calculated using average adult body mass. Additional eGFR calculator available at: http://www.[employer]/multiple_crcl_2011.htm Glucose [Mass/Vol] 112 mg/dL High 70 - 99 mg/dL [facility] Interpretation and review of laboratory results Abnormal [facility] Potassium [Moles/Vol] 3.6 mmol/L Low 3.7 - 5.3 mmol/L [facility] Sodium [Moles/Vol] 135 mmol/L 135 - 144 mmol/L [facility] Urea nitrogen (BldV) [Mass/Vol] 12 mg/dL 6 - 20 mg/dL [facility] CBC with Auto Differentialon 10-23-2021 Absolute Eos # 0.13 [facility] th Absolute Immature Granulocyte 0.06 [facility] Absolute Lymph # 2.50 [facility] alth Absolute [place] [facility].68 [facility] Basophils (Bld) [#/Vol] 0.07 10*3/uL [facility] Basophils/100 WBC (Bld) 1 % 0 - 2 % M [facility] Eosinophils/100 WBC (Bld) 1 % 1 - 4 % [facility] Hematocrit (Bld) [Volume fraction] 39.3 % 36.3 - 47.1 % [facility] Hemoglobin.gastrointest inal spec 1 Ql (Stl) 13.2 g/dL 11.9 - 15.1 g/dL [facility] Immature granulocytes/100 WBC (Bld) 1 % High 0 [facility] Interpretation and review of laboratory results Abnormal [facility] Lymphocytes/100 WBC (Bld) 24 % 24 - 43 % [facility] MCH (RBC) [Entitic mass] 30.3 pg 25.2 - 33.5 pg [facility] MCHC (RBC) [Mass/Vol] 33.6 g/dL 28.4 - 34.8 g/dL [facility] MCV (RBC) [Entitic vol] 90.1 fL 82.6 - 102.9 fL [facility] Monocytes/100 WBC (Bld) 6 % 3 - 12 % [facility] NRBC Automated 0.0 0.0 per 100 WBC [facility] Platelet distribution width (Bld) [Ratio] 11.9 % 11.8 - 14.4 % [facility] Platelet mean volume (Bld) [Entitic vol] 10.9 fL 8.1 - 13.5 fL [facility] Platelets (Bld) [#/Vol] 272 10*3/uL [facility] RBC (Bld) [#/Vol] 4.36 10*6/uL 3.95 - 5.11 m/uL [facility] Segmented neutrophils/100 WBC (Bld) 67 % High 36 - 65 % [facility] Segs Absolute 7.16 [facility] WBC (Bld) [#/Vol] 10.6 10*3/uL [facility] CBC with Diffon 10-23-2021 Abs. Basophil 0.07 k/uL Normal 0.00-0.20 [place] Comment on above: Performed By: #### C DP, BMPX #### [facility] [place], [place] [id number] Telephone Operator Receptionist: Darius Sarah MD Abs.Imm.Granulocyte 0.06 k/uL Normal 0.00-0.30 [place] Comment on above: Performed By: #### C DP, BMPX #### [address] [address] Telephone Operator Receptionist: Darius Sarah MD Abs.Neutrophil (Seg) 7.16 k/uL Normal 1.50-8.10 [facility] Comment on above: Performed By: #### C DP, BMPX #### [place] [address] Telephone Operator Receptionist: Darius Sarah MD Basophils/100 WBC (Bld) 1 % Normal 0-[address] [facility] Comment on above: Performed By: #### C DP, BMPX #### [place] [address] Telephone Operator Receptionist: Darius Sarah MD Eosinophils (Bld) [#/Vol] 0.13 10*3/uL Normal 0.00-0.44 [place] Comment on above: Performed By: #### C DP, BMPX #### [place] [address] Telephone Operator Receptionist: Darius Sarah MD Eosinophils/100 WBC (Bld) 1 % Normal 1-4 [place] Comment on above: Performed By: #### C DP, BMPX #### [place] [address] Telephone Operator Receptionist: Darius Sarah MD Erythrocyte distribution width (RBC) [Ratio] 11.9 % Normal 11.8-14.4 [place] Comment on above: Performed By: #### C DP, BMPX #### [place] [address] Telephone Operator Receptionist: Darius Sarah MD Hematocrit (Bld) [Volume fraction] 39.3 % Normal 36.3-47.1 [place] Comment on above: Performed By: #### C DP, BMPX #### [address] [address] Telephone Operator Receptionist: Darius Sarah MD Hemoglobin (Bld) [Mass/Vol] 13.2 g/dL Normal 11.9-15.1 [place] Comment on above: Performed By: #### C DP, BMPX #### [address] [address] Telephone Operator Receptionist: Darius Sarah MD Immature granulocytes/100 WBC (Bld) 1 % High 0 [place] Comment on above: Performed By: #### C DP, BMPX #### [address] [address] Telephone Operator Receptionist: Darius Sarah MD Lymphocytes (Bld) [#/Vol] 2.50 10*3/uL Normal 1.10-3.70 [place] Comment on above: Performed By: #### C DP, BMPX #### [address] [address] Telephone Operator Receptionist: Darius Sarah MD Lymphocytes/100 WBC (Bld) 24 % Normal 24-43 [place] Comment on above: Performed By: #### C DP, BMPX #### [address] [address] Telephone Operator Receptionist: Darius Sarah MD MCH (RBC) [Entitic mass] 30.3 pg Normal 25.2-33.5 [place] Comment on above: Performed By: #### C DP, BMPX #### [address] [address] Telephone Operator Receptionist: Darius Sarah MD MCHC (RBC) [Mass/Vol] 33.6 g/dL Normal 28.4-34.8 [facility] Comment on above: Performed By: #### C DP, BMPX #### [address] [address] Telephone Operator Receptionist: Darius Sarah MD MCV (RBC) [Entitic vol] 90.1 fL Normal 82.6-102.[address] [facility] Comment on above: Performed By: #### C DP, BMPX #### [address] [address] Telephone Operator Receptionist: Darius Sarah MD Monocytes (Bld) [#/Vol] 0.68 10*3/uL Normal 0.10-1.20 [place] Comment on above: Performed By: #### C DP, BMPX #### [address] [address] Telephone Operator Receptionist: Darius Sarah MD Monocytes/100 WBC (Bld) 6 % Normal 3-[address] [facility] Comment on above: Performed By: #### C DP, BMPX #### [place] [address] Telephone Operator Receptionist: Darius Sarah MD Neutrophil (Seg) 67 % High 36-65 [facility] [facility] Comment on above: Performed By: #### C DP, BMPX #### [address] [address] Telephone Operator Receptionist: Darius Sarah MD NRBC Automated 0.0 per 100 WBC Normal 0.0 [place] Comment on above: Performed By: #### C DP, BMPX #### [place] [address] Telephone Operator Receptionist: Darius Sarah MD Platelet mean volume (Bld) [Entitic vol] 10.9 fL Normal 8.1-13.5 [place] Comment on above: Performed By: #### C DP, BMPX #### [address] [address] Telephone Operator Receptionist: Darius Sarah MD Platelets (Bld) [#/Vol] 272 10*3/uL Normal 138-453 [place] Comment on above: Performed By: #### C DP, BMPX #### [address] [place] [address] Telephone Operator Receptionist: Darius Sarah MD RBC (Bld) [#/Vol] 4.36 10*6/uL Normal 3.95-5.11 [place] Comment on above: Performed By: #### C DP, BMPX #### [address] [address] Telephone Operator Receptionist: Darius Sarah MD WBC (Bld) [#/Vol] 10.6 10*3/uL Normal 3.5-11.3 [place] Comment on above: Performed By: #### C DP, BMPX #### [address] [address] Telephone Operator Receptionist: Darius Sarah MD Basic Metab w/rfx MGon 10-21 (cont.) Normal [place] Comment on above: Result Comment: Aver age GFR for 40-49 years old: 99 mL/min/1.73sq m Chronic Kidney Disease: <60 mL/min/1.73sq m Kidney failure: <15 mL/min/1.73sq m eGFR calculated using average adult body mass. Additional eGFR calculator available at: http://www.GirlsAskGuys.com.com/multiple_crcl_2011.htm Performed By: #### C DP, BMPX #### [address] [address] Telephone Operator Receptionist: Darius Sarah MD Anion gap [Moles/Vol] 14 mmol/L Normal 9-17 [facility] Comment on above: Performed By: #### C DP, BMPX #### [address] [address] Telephone Operator Receptionist: Darius Sarah MD Calcium [Mass/Vol] 9.6 mg/dL Normal 8.6-10.4 [place] Comment on above: Performed By: #### C DP, BMPX #### [address] [address] Telephone Operator Receptionist: Darius Sarah MD Chloride [Moles/Vol] 105 mmol/L Normal 98-107 [facility] Comment on above: Performed By: #### C DP, BMPX #### [address] [address] Telephone Operator Receptionist: Darius Sarah MD CO2 [Moles/Vol] 20 mmol/L Normal 20-31 [place] Comment on above: Performed By: #### C DP, BMPX #### [address] [address] Telephone Operator Receptionist: Darius Sarah MD Creatinine [Mass/Vol] 0.75 mg/dL Normal 0.50-0.90 [facility] Comment on above: Performed By: #### C DP, BMPX #### [address] [address] Telephone Operator Receptionist: Darius Sarah MD GFR, Amer >60 Normal >60 [facility] Comment on above: Performed By: #### C DP, BMPX #### [address] [address] Telephone Operator Receptionist: Darius Sarah MD GFR,non Amer >60 Normal >60 [facility] Comment on above: Performed By: #### C DP, BMPX #### [address] [address] Telephone Operator Receptionist: Darius Sarah MD Glucose [Mass/Vol] 114 mg/dL High 70-99 [place] Comment on above: Performed By: #### C DP, BMPX #### [address] [address] Telephone Operator Receptionist: Darius Sarah MD Potassium [Moles/Vol] 4.3 mmol/L Normal 3.7-5.3 [facility] Comment on above: Performed By: #### C DP, BMPX #### [facility] [address] [place] [address] Telephone Operator Receptionist: Darius Sarah MD Sodium [Moles/Vol] 139 mmol/L Normal 135-144 [place] Comment on above: Performed By: #### C DP, BMPX #### [facility] [address] [place], [place] [phone] Telephone Operator Receptionist: Darius Sarah MD Urea nitrogen [Mass/Vol] 9 mg/dL Normal 6-20 [place] Comment on above: Performed By: #### C DP, BMPX #### [employer] [address] [place] [phone] Telephone Operator Receptionist: Darius Sarah MD Basic Metabolic Panel w/ Ref golden to MGon 10-21-2021 Anion gap [Moles/Vol] 14 mmol/L 9 - 17 mmol/L [facility] Calcium [Mass/Vol] 9.6 mg/dL 8.6 - 10. 4 mg/dL [facility] Chloride [Moles/Vol] 105 mmol/L 98 - 10 7 mmol/L [facility] CO2 [Moles/Vol] 20 mmol/L 20 - 31 mmol/L [facility] Creatinine [Mass/Vol] 0.75 mg/dL 0.50 - 0.90 mg/dL [facility] GFR >60 >60 mL/min [facility] GFR Non- >60 >60 mL/min [facility] GFR/1.73 sq M.predicted MDRD (S/P/Bld) [Vol rate/Area] [facility] Comment on above: Average GFR for 40-4 9 years old: 99 mL/min/1.73sq m Chronic Kidney Disease: <60 mL/min/1.73sq m Kidney failure: <15 mL/min/1.73sq m eGFR calculated using average adult body mass. Additional eGFR calculator available at: http://www.GirlsAskGuys.com.[employer]/multiple_crcl_2011.htm Glucose [Mass/Vol] 114 mg/dL High 70 - 99 mg/dL [facility] Interpretation and review of laboratory results Abnormal [facility] Potassium [Moles/Vol] 4.3 mmol/L 3.7 - 5.3 mmol/L [facility] Sodium [Moles/Vol] 139 mmol/L 135 - 144 mmol/L [facility] Urea nitrogen (BldV) [Mass/Vol] 9 mg/dL 6 - 20 mg/dL [facility] CBC with Auto Differentialon 10-21-2021 Absolute Eos # 0.14 [facility] th Absolute Immature Granulocyte 0.03 [facility] Absolute Lymph # 2.54 [facility] alth Absolute [place] [facility].63 [facility] Basophils (Bld) [#/Vol] 0.08 10*3/uL [facility] Hemoglobin.gastrointest inal spec 1 Ql (Stl) 14.0 g/dL 11.9 - 15.1 g/dL [facility] Interpretation and review of laboratory results Abnormal [facility] NRBC Automated 0.0 0.0 per 100 WBC [facility] Platelet distribution width (Bld) [Ratio] 11.7 % Low 11.8 - 14.4 % [facility] Segmented neutrophils/100 WBC (Bld) 69 % High 36 - 65 % [facility] Segs Absolute 7.78 [facility] CBC with Diffon 10-21-2021 Abs. Basophil 0.08 k/uL Normal 0.00-0.20 [place] Comment on above: Performed By: #### C GRAEME BMPX #### [facility] [address] [phone] Telephone Operator Receptionist: Darius Sarah MD Abs.Imm.Granulocyte 0.03 k/uL Normal 0.00-0.30 [place] Comment on above: Performed By: #### C DP, BMPX #### [facility] [address] [place], [place] [phone] Telephone Operator Receptionist: Darius Sarah MD Abs.Neutrophil (Seg) 7.78 k/uL Normal 1.50-8.10 [facility] Comment on above: Performed By: #### C DP, BMPX #### [address] [address] Telephone Operator Receptionist: Darius Sarah MD Eosinophils (Bld) [#/Vol] 0.14 10*3/uL Normal 0.00-0.44 [place] Comment on above: Performed By: #### C DP, BMPX #### [facility] [address] [place] [address] Telephone Operator Receptionist: Darius Sarah MD Erythrocyte distribution width (RBC) [Ratio] 11.7 % Low 11.8-14.4 [place] Comment on above: Performed By: #### C DP, BMPX #### [facility] [address] [place] [address] Telephone Operator Receptionist: Darius Sarah MD Hemoglobin (Bld) [Mass/Vol] 14.0 g/dL Normal 11.9-15.1 [place] Comment on above: Performed By: #### C DP, BMPX #### [address] [address] Telephone Operator Receptionist: Darius Sarah MD Lymphocytes (Bld) [#/Vol] 2.54 10*3/uL Normal 1.10-3.70 [place] Comment on above: Performed By: #### C DP, BMPX #### [address] [address] Telephone Operator Receptionist: Darius Sarah MD Monocytes (Bld) [#/Vol] 0.63 10*3/uL Normal 0.10-1.20 [place] Comment on above: Performed By: #### C DP, BMPX #### [facility] [address] [place] [address] Telephone Operator Receptionist: Darius Sarah MD Neutrophil (Seg) 69 % High 36-65 [facility] Comment on above: Performed By: #### C DP, BMPX #### [address] [address] Telephone Operator Receptionist: Darius Sarah MD NRBC Automated 0.0 per 100 WBC Normal 0.0 [place] Comment on above: Performed By: #### C DP, BMPX #### [address] [address] Telephone Operator Receptionist: Darius Sarah MD Basophils/100 WBC (Bld) 1 % Normal 0-2 [facility] Comment on above: Performed By: #### C DP, BMPX #### [place] [address] Telephone Operator Receptionist: Darius Sarah MD Eosinophils/100 WBC (Bld) 1 % Normal 1-4 [facility] Comment on above: Performed By: #### C DP, BMPX #### [place] [address] Telephone Operator Receptionist: Darius Sarah MD Hematocrit (Bld) [Volume fraction] 42.3 % Normal 36.3-47.1 [facility] Comment on above: Performed By: #### C DP, BMPX #### [address] [address] Telephone Operator Receptionist: Darius Sarah MD Immature granulocytes/100 WBC (Bld) 0 % Normal 0 [facility] Comment on above: Performed By: #### C DP, BMPX #### [address] [address] Telephone Operator Receptionist: Darius Sarah MD Lymphocytes/100 WBC (Bld) 23 % Low 24-43 [facility] Comment on above: Performed By: #### C DP, BMPX #### [address] [address] Telephone Operator Receptionist: Darius Sarah MD MCH (RBC) [Entitic mass] 30.7 pg Normal 25.2-33.5 [facility] Comment on above: Performed By: #### C DP, BMPX #### [address] [address] Telephone Operator Receptionist: Darius Sarah MD MCHC (RBC) [Mass/Vol] 33.1 g/dL Normal 28.4-34.8 [facility] Comment on above: Performed By: #### C DP, BMPX #### [address] [address] Telephone Operator Receptionist: Darius Sarah MD MCV (RBC) [Entitic vol] 92.8 fL Normal 82.6-102.9 [facility] Comment on above: Performed By: #### C DP, BMPX #### [address] [address] Telephone Operator Receptionist: Darius Sarah MD Monocytes/100 WBC (Bld) 6 % Normal 3-12 M [facility] Comment on above: Performed By: #### C DP, BMPX #### [address] [address] Telephone Operator Receptionist: Darius Sarah MD Platelet mean volume (Bld) [Entitic vol] 10.0 fL Normal 8.1-13.5 [facility] Comment on above: Performed By: #### C DP, BMPX #### [address] [address] Telephone Operator Receptionist: Darius Sarah MD Platelets (Bld) [#/Vol] 343 10*3/uL Normal 138-453 [facility] Comment on above: Performed By: #### C DP, BMPX #### [address] [address] Telephone Operator Receptionist: Darius Sarah MD RBC (Bld) [#/Vol] 4.56 10*6/uL Normal 3.95-5.11 [facility] Comment on above: Performed By: #### C DP, BMPX #### [address] [address] Telephone Operator Receptionist: Darius Sarah MD WBC (Bld) [#/Vol] 11.2 10*3/uL Normal 3.5-11.3 [facility] Comment on above: Performed By: #### C DP, BMPX #### [facility] [address] [place] [address] Telephone Operator Receptionist: Darius Sarah MD CT HEAD WO CONTRASTon 2021 CT HEAD WO CONTRAST EXAMINATION: CT OF THE HEAD WITHOUT CONTRAST 10/20/2021 9:56 pm TECHNIQUE: CT of the head was performed without the administration of intravenous contrast. Dose modulation, iterative reconstruction, and/or weight based adjustment of the mA/kV was utilized to reduce the radiation dose to as low as reasonably achievable. COMPARISON: CT 10/19/2021. HISTORY: ORDERING SYSTEM PROVIDED HISTORY: 24 hours post tPA TECHNOLOGIST PROVIDED HISTORY: Obtain 24 hours after administration of tPA 24 hours post tPA Is the patient ?->No Reason for Exam: 24 hours post tPA Initial evaluation. FINDINGS: Evaluation is partially limited due to mottle artifact. BRAIN/VENTRICLES: The mendez-white differentiation appears grossly maintained. There is no convincing evidence of an acute intracranial hemorrhage. No mass effect or midline shift. No abnormal extra-axial collection is seen. There is no evidence of hydrocephalus. ORBITS: The visualized portion of the orbits demonstrate no acute abnormality. SINUSES: The visualized paranasal sinuses and mastoid air cells demonstrate no acute abnormality. SOFT TISSUES/SKULL: No acute abnormality of the visualized skull or soft tissues. IMPRESSION: 1. Evaluation partially limited due to mottle artifact. 2. No convincing acute intracranial abnormality. Interpreted by: Judah Wilhelm MD Signed by: Judah Wilhelm MD 10/20/21 Final result Normal [place] Echo Completeon 10-21-2021 Transthoracic Echocardiography Report (TTE) Patient Name ADRIÁN Date of Study 10/21/2021 MIKE N Date of 1975 Gender Female Age 45 year(s) Race Room Number 0530 Height: 64 inch, 162.56 cm Corporate ID [id number] Weight: 193 pounds, 87.5 kg # Patient Acct [id number] BSA: 1.93 m^2 BMI: 33.13 # kg/m^2 MR # [id number] Manufacturing Applications Engineer Karolina Shea Interpreting Physician Vicenta Thacker Fellow Referring Nurse Practitioner Interpreting Referring Physician Zaki Mcbride DO Fellow Type of Study TTE procedure:2D Echocardiogram, Color Doppler, Bubble Study, Limited Echo. Procedure Date Date: 10/21/2021 Start: 10:54 AM Study Location: [facility] Technical Quality: Adequate visualization Indications:CVA. History / Tech. Comments: Echo done at patient bedside. Procedure explained to patient. HTN Patient Status: Inpatient Height: 64 inches Weight: 193 pounds BSA: 1.93 m^2 BMI: 33.13 kg/m^2 Allergies - Cephalosporins. CONCLUSIONS Summary Limited study Normal LV size No obvious wall motion abnormality seen. Normal LV systolic function with LVEF >55%. Normal RV size and function. LA and RA appears normal in size. No obvious significant structural valvular abnormality noted. Negative bubble study Normal aortic root dimension. No significant pericardial effusion noted. IVC not well visualized Signature ---- ---- ---- ---- FINDINGS Left Atrium Negative bubble study, no shunt noted. Left Ventricle Global left ventricular systolic function is normal. Calculated ejection fraction 60% by Disla's method. Right Ventricle Right ventricular function appears normal . Mitral Valve Normal mitral valve structure and function. No mitral regurgitation. Aortic Valve Aortic valve is trileaflet and opens adequately. No aortic insufficiency. Tricuspid Valve Normal tricuspid valve structure and function. No tricuspid regurgitation. Pulmonic Valve The pulmonic valve is normal in structure. No pulmonic insufficiency. Pericardial Effusion No pericardial effusion seen. [facility] Vicenta Thacker MD - 10/21/2021 Transthoracic Echocardiography Report (TTE) Patient Name ADRIÁN Date of Study 10/21/2021 MIKE N Date of 1975 Gender Female Age 45 year(s) Race Room Number 0530 Height: 64 inch, 162.56 cm Corporate ID [id number] Weight: 193 pounds, 87.5 kg # Patient Acct [id number] BSA: 1.93 m^2 BMI: 33.13 # kg/m^2 MR # [id number] Manufacturing Applications Engineer Karolina Shea Interpreting Physician Vicenta Thacker Fellow Referring Nurse Practitioner Interpreting Referring Physician Zaki Mcbride DO Fellow Type of Study TTE procedure:2D Echocardiogram, Color Doppler, Bubble Study, Limited Echo. Procedure Date Date: 10/21/2021 Start: 10:54 AM Study Location: [facility] Technical Quality: Adequate visualization Indications:CVA. History / Tech. Comments: Echo done at patient bedside. Procedure explained to patient. HTN Patient Status: Inpatient Height: 64 inches Weight: 193 pounds BSA: 1.93 m^2 BMI: 33.13 kg/m^2 Allergies - Cephalosporins. CONCLUSIONS Summary Limited study Normal LV size No obvious wall motion abnormality seen. Normal LV systolic function with LVEF >55%. Normal RV size and function. LA and RA appears normal in size. No obvious significant structural valvular abnormality noted. Negative bubble study Normal aortic root dimension. No significant pericardial effusion noted. IVC not well visualized Signature --- - Electronically signed by Vicenta Thacker([facility] physician) on 10/21/2021 07:40 PM --- - --- - --- - FINDINGS Left Atrium Negative bubble study, no shunt noted. Left Ventricle Global left ventricular systolic function is normal. Calculated ejection fraction 60% by Disla's method. Right Ventricle Right ventricular function appears normal . Mitral Valve Normal mitral valve structure and function. No mitral regurgitation. Aortic Valve Aortic valve is trileaflet and opens adequately. No aortic insufficiency. Tricuspid Valve Normal tricuspid valve structure and function. No tricuspid regurgitation. Pulmonic Valve The pulmonic valve is normal in structure. No pulmonic insufficiency. Pericardial Effusion No pericardial effusion seen. [employer] Phone: [facility] [employer]. Work Phone: Basic Metab w/rfx MGon 10-20 Anion gap [Moles/Vol] 11 mmol/L Normal 9-17 [facility] Comment on above: Performed By: #### C BC, TROPI, BMPX, GLYHGB, LIPR ####[facility] [address] [place], [place] [phone] Director: Darius Sarah MD Calcium [Mass/Vol] 8.9 mg/dL Normal 8.6-10.4 [place] Comment on above: Performed By: #### C BC, TROPI, BMPX, GLYHGB, LIPR ####[facility] [address] [place], [place] [phone] Director: Darius Sarah MD Chloride [Moles/Vol] 103 mmol/L Normal 98-107 [facility] Comment on above: Performed By: #### C BC, TROPI, BMPX, GLYHGB, LIPR ####[facility] [address] [place], [place] [phone] Director: Darius Sarah MD CO2 [Moles/Vol] 20 mmol/L Normal 20-31 [place] Comment on above: Performed By: #### C BC, TROPI, BMPX, GLYHGB, LIPR ####[facility] [address] [place], [place] [phone] Director: Darius Sarah MD Creatinine [Mass/Vol] 0.76 mg/dL Normal 0.50-0.90 [facility] Comment on above: Performed By: #### C BC, TROPI, BMPX, GLYHGB, LIPR ####[facility] [address] [place], [place] [phone] Director: Darius Sarah MD GFR, Amer >60 Normal >60 [facility] Comment on above: Performed By: #### C BC, TROPI, BMPX, GLYHGB, LIPR ####[facility] [address] [place], [place] [phone] Director: Darius Sarah MD GFR,non Amer >60 Normal >60 [facility] Comment on above: Performed By: #### C BC, TROPI, BMPX, GLYHGB, LIPR ####[facility] [address] [place], [place] [phone] Director: Darius Sarah MD Glucose [Mass/Vol] 110 mg/dL High 70-99 [place] Comment on above: Performed By: #### C BC, TROPI, BMPX, GLYHGB, LIPR ####[facility] [address] [place], [place] [phone] Director: Darius Sarah MD Potassium [Moles/Vol] 3.6 mmol/L Low 3.7-5.3 [facility] Comment on above: Performed By: #### C BC, TROPI, BMPX, GLYHGB, LIPR ####[facility] [address] [place], [place] [phone] Director: Darius Sarah MD Sodium [Moles/Vol] 134 mmol/L Low 135-144 [place] Comment on above: Performed By: #### C BC, TROPI, BMPX, GLYHGB, LIPR ####[facility] [address] [place], [place] [phone] Director: Darius Sarah MD Urea nitrogen [Mass/Vol] 12 mg/dL Normal 6-20 [place] Comment on above: Performed By: #### C BC, TROPI, BMPX, GLYHGB, LIPR ####[facility] [address] [place], [place] [phone] Director: Darius aSrah MD (cont.) [facility] Comment on above: Result Comment: Aver age GFR for 40-49 years old: 99 mL/min/1.73sq m Chronic Kidney Disease: <60 mL/min/1.73sq m Kidney failure: <15 mL/min/1.73sq m eGFR calculated using average adult body mass. Additional eGFR calculator available at: http://www.[employer]_crcl_2012.htm Performed By: #### C BC, TROPI, BMPX, GLYHGB, LIPR ####[facility] [address] [place] [address] [facility] Director: Darius Sarah MD Basic Metabolic Panel w/ Ref golden to on 10-20-2021 Anion gap [Moles/Vol] 11 mmol/L 9 - 17 mmol/L [facility] Calcium [Mass/Vol] 8.9 mg/dL 8.6 - 10. 4 mg/dL [facility] Chloride [Moles/Vol] 103 mmol/L 98 - 10 7 mmol/L [facility] CO2 [Moles/Vol] 20 mmol/L 20 - 31 mmol/L [facility] Creatinine [Mass/Vol] 0.76 mg/dL 0.50 - 0.90 mg/dL [facility] GFR >60 >60 mL/min [facility] GFR Non- >60 >60 mL/min [facility] GFR/1.73 sq M.predicted MDRD (S/P/Bld) [Vol rate/Area] [facility] Comment on above: Average GFR for 40-4 9 years old: 99 mL/min/1.73sq m Chronic Kidney Disease: <60 mL/min/1.73sq m Kidney failure: <15 mL/min/1.73sq m eGFR calculated using average adult body mass. Additional eGFR calculator available at: http://www.[employer] Medical_crcl_2012.htm Glucose [Mass/Vol] 110 mg/dL High 70 - 99 mg/dL [facility] Potassium [Moles/Vol] 3.6 mmol/L Low 3.7 - 5.3 mmol/L [facility] Sodium [Moles/Vol] 134 mmol/L Low 135 - 144 mmol/L [facility] Urea nitrogen (BldV) [Mass/Vol] 12 mg/dL 6 - 20 mg/dL [facility] CBCon 10-20-2021 Erythrocyte distribution width (RBC) [Ratio] 11.7 % Low 11.8-14.4 [place] Comment on above: Performed By: #### C BC, TROPI, BMPX, GLYHGB, LIPR #### [facility] [address] [place] [address] Telephone Operator Receptionist: Darius Sarah MD Hematocrit (Bld) [Volume fraction] 34.7 % Low 36.3-47.1 [place] Comment on above: Performed By: #### C BC, TROPI, BMPX, GLYHGB, LIPR #### [facility] [address] [place] [address] Telephone Operator Receptionist: Darius Sarah MD Hemoglobin (Bld) [Mass/Vol] 11.7 g/dL Low 11.9-15.1 [place] Comment on above: Performed By: #### C BC, TROPI, BMPX, GLYHGB, LIPR #### [address] [address] Telephone Operator Receptionist: Darius Sarah MD MCH (RBC) [Entitic mass] 30.1 pg Normal 25.2-33.5 [place] Comment on above: Performed By: #### C BC, TROPI, BMPX, GLYHGB, LIPR #### [facility] [address] [place] [address] Telephone Operator Receptionist: Darius Sarah MD MCHC (RBC) [Mass/Vol] 33.7 g/dL Normal 28.4-34.8 [facility] Comment on above: Performed By: #### C BC, TROPI, BMPX, GLYHGB, LIPR #### [facility] [address] [place] [address] Telephone Operator Receptionist: Darius Sarah MD MCV (RBC) [Entitic vol] 89.2 fL Normal 82.6-102.[address] [facility] Comment on above: Performed By: #### C BC, TROPI, BMPX, GLYHGB, LIPR #### [address] [address] Telephone Operator Receptionist: Darius Sarah MD NRBC Automated 0.0 per 100 WBC Normal 0.0 [place] Comment on above: Performed By: #### C BC, TROPI, BMPX, GLYHGB, LIPR #### [address] [address] Telephone Operator Receptionist: Darius Sarah MD Platelet mean volume (Bld) [Entitic vol] 10.1 fL Normal 8.1-13.5 [place] Comment on above: Performed By: #### C BC, TROPI, BMPX, GLYHGB, LIPR #### [address] [address] Telephone Operator Receptionist: Darius Sarah MD Platelets (Bld) [#/Vol] 295 10*3/uL Normal 138-453 [place] Comment on above: Performed By: #### C BC, TROPI, BMPX, GLYHGB, LIPR #### [address] [address] Telephone Operator Receptionist: Darius Sarah MD RBC (Bld) [#/Vol] 3.89 10*6/uL Low 3.95-5.11 [place] Comment on above: Performed By: #### C BC, TROPI, BMPX, GLYHGB, LIPR #### [address] [address] Telephone Operator Receptionist: Darius Sarah MD WBC (Bld) [#/Vol] 10.5 10*3/uL Normal 3.5-11.3 [place] Comment on above: Performed By: #### C BC, TROPI, BMPX, GLYHGB, LIPR #### [facility] [address] [place] [address] Telephone Operator Receptionist: Darius Sarah MD Hematocrit (Bld) [Volume fraction] 34.7 % Low 36.3 - 47.1 % [facility] Hemoglobin.gastrointest inal spec 1 Ql (Stl) 11.7 g/dL Low 11.9 - 15.1 g/dL [facility] Interpretation and review of laboratory results Abnormal [facility] MCH (RBC) [Entitic mass] 30.1 pg 25.2 - 33.5 pg [facility] MCHC (RBC) [Mass/Vol] 33.7 g/dL 28.4 - 34.8 g/dL [facility] MCV (RBC) [Entitic vol] 89.2 fL 82.6 - 102.9 fL [facility] NRBC Automated 0.0 0.0 per 100 WBC [facility] Platelet distribution width (Bld) [Ratio] 11.7 % Low 11.8 - 14.4 % [facility] Platelet mean volume (Bld) [Entitic vol] 10.1 fL 8.1 - 13.5 fL [facility] Platelets (Bld) [#/Vol] 295 10*3/uL [facility] RBC (Bld) [#/Vol] 3.89 10*6/uL Low 3.95 - 5.11 m/uL [facility] WBC (Bld) [#/Vol] 10.5 10*3/uL [facility] COVID-19, Rapidon 10-20-2021 SARS-CoV-2 (COVID-19) RNA FAUSTINA+probe Ql (Unsp spec) Not detected Not Detected [facility] Comment on above: Rapid NAAT: The specimen is NEGATIVE for SARS-CoV-2, the novel coronavirus associated with COVID-19. The ID NOW COVID-19 assay is designed to detect the virus that causes COVID-19 in patients with signs and symptoms of infection who are suspected of COVID-19. An individual without symptoms of COVID-19 and who is not shedding SARS-CoV-2 virus would expect to have a negative (not detected) result in this assay. Negative results should be treated as presumptive and, if inconsistent with clinical signs and symptoms or necessary for patient management, should be tested with an alternative molecular assay. Negative results do not preclude SARS-CoV-2 infection and should not be used as the sole basis for patient management decisions. Fact sheet for Healthcare Providers: https://www.fda.gov/media/337595/download Fact sheet for Patients: https://www.fda.gov/media/406576/download Methodology: Isothermal Nucleic Acid Amplification Specimen Description .NASOPHARYNGEAL SWAB [facility] CT head without contraston 0 10-20-2021 EXAMINATION: CT OF THE HEAD WITHOUT CONTRAST 10/20/2021 9:56 pm TECHNIQUE: CT of the head was performed without the administration of intravenous contrast. Dose modulation, iterative reconstruction, and/or weight based adjustment of the mA/kV was utilized to reduce the radiation dose to as low as reasonably achievable. COMPARISON: CT 10/19/2021. HISTORY: ORDERING SYSTEM PROVIDED HISTORY: 24 hours post tPA TECHNOLOGIST PROVIDED HISTORY: Obtain 24 hours after administration of tPA 24 hours post tPA Is the patient ?->No Reason for Exam: 24 hours post tPA Initial evaluation. FINDINGS: Evaluation is partially limited due to mottle artifact. BRAIN/VENTRICLES: The mendez-white differentiation appears grossly maintained. There is no convincing evidence of an acute intracranial hemorrhage. No mass effect or midline shift. No abnormal extra-axial collection is seen. There is no evidence of hydrocephalus. ORBITS: The visualized portion of the orbits demonstrate no acute abnormality. SINUSES: The visualized paranasal sinuses and mastoid air cells demonstrate no acute abnormality. SOFT TISSUES/SKULL: No acute abnormality of the visualized skull or soft tissues. [facility] RIS CONSOLIDATED Judah Wilhelm MD - 10/20/2021 EXAMINATION: CT OF THE HEAD WITHOUT CONTRAST 10/20/2021 9:56 pm TECHNIQUE: CT of the head was performed without the administration of intravenous contrast. Dose modulation, iterative reconstruction, and/or weight based adjustment of the mA/kV was utilized to reduce the radiation dose to as low as reasonably achievable. COMPARISON: CT 10/19/2021. HISTORY: ORDERING SYSTEM PROVIDED HISTORY: 24 hours post tPA TECHNOLOGIST PROVIDED HISTORY: Obtain 24 hours after administration of tPA 24 hours post tPA Is the patient ?->No Reason for Exam: 24 hours post tPA Initial evaluation. FINDINGS: Evaluation is partially limited due to mottle artifact. BRAIN/VENTRICLES: The mendez-white differentiation appears grossly maintained. There is no convincing evidence of an acute intracranial hemorrhage. No mass effect or midline shift. No abnormal extra-axial collection is seen. There is no evidence of hydrocephalus. ORBITS: The visualized portion of the orbits demonstrate no acute abnormality. SINUSES: The visualized paranasal sinuses and mastoid air cells demonstrate no acute abnormality. SOFT TISSUES/SKULL: No acute abnormality of the visualized skull or soft tissues. IMPRESSION: 1. Evaluation partially limited due to mottle artifact. 2. No convincing acute intracranial abnormality. [employer] Work Phone: Radiology Study observation (narrative) [employer] Work Phone: CT head without contrastOrde red By: Judah Wilhelm on 10-20-2021 [employer] Work Phone: EKG 12 LeadOrdered By: Vicenta Thacker on 10-20-2021 Atrial Rate 63 BPM [employer] Work Phone: P [place] 53 degrees [employer] Work Phone: P-R Interval 172 ms [employer] Work Phone: Q-T Interval 426 ms [employer] Work Phone: QRS Duration 88 ms [employer] Work Phone: QTc Calculation (Bazett) 435 ms [employer] Work Phone: R [place] -7 degrees [employer] Work Phone: T [place] 36 degrees [employer] Work Phone: Ventricular Rate 63 BPM [employer] Work Phone: [employer] Work Phone: EKG 12 Leadon 10-20-2021 Normal sinus rhythm Normal ECG When compared with ECG of 09-OCT-2019 23:08, No significant change was found [facility] Vicenta Lorenzo MD - 10/20/2021 Normal sinus rhythm Normal ECG When compared with ECG of 09-OCT-2019 23:08, No significant change was found [facility] Work Phone: Hemoglobin A1Con 10-20-2021 Glucose [Mass/Vol] 117 mg/dL Normal [place] Comment on above: Result Comment: The ADA and AACC recommend providing the estimated average glucose result to permit better patient understanding of their HBA1c result. Performed By: #### C BC, TROPI, BMPX, GLYHGB, LIPR ####[facility] [id number] [place] [address] Lab Director: Darius Sarah MD HbA1c (Bld) [Mass fraction] 5.7 % Normal 4.0-6.0 [place] Comment on above: Performed By: #### C BC, TROPI, BMPX, GLYHGB, LIPR ####[facility] [id number] [place] [address] lab Director: Darius Sarah MD Hemoglobin A1con 10-20-2021 Glucose [Mass/Vol] 117 mg/dL [facility] Comment on above: The ADA and AACC rec ommend providing the estimated average glucose result to permit better patient understanding of their HBA1c result. HbA1c (Bld) [Mass fraction] 5.7 % 4.0 - 6.0 % [facility] Lipid Profileon 10-20-2021 Cholesterol [Mass/Vol] 151 mg/dL Normal <200 [facility] Comment on above: Result Comment: Cholesterol Guidelines: <200 Desirable 200-240 Borderline >240 Undesirable Performed By: #### C BC, TROPI, BMPX, GLYHGB, LIPR ####[facility] [address] [place] [address] Lab Director: Darius Sarah MD Cholesterol in HDL [Mass/Vol] 30 mg/dL Low >40 [place] Comment on above: Result Comment: HDL Guidelines: <40 Undesirable 40-59 Borderline >59 Desirable Performed By: #### C BC, TROPI, BMPX, GLYHGB, LIPR ####[facility] [address] [place] [address] Lab Director: Darius Sarah MD Cholesterol in LDL [Mass/Vol] 80 mg/dL Normal 0-130 [place] Comment on above: Result Comment: LDL Guidelines: <100 Desirable 100-129 Near to/above Desirable 130-159 Borderline >159 Undesirable Direct (measured) LDL and calculated LDL are not interchangeable tests. Performed By: #### C BC, TROPI, BMPX, GLYHGB, LIPR ####[facility] [address] [place], [place] [id number] Lab Director: Darius Sarah MD Cholesterol.total/Audelia sterol in HDL [Mass ratio] 5.0 {ratio} High <5 [place] Comment on above: Performed By: #### C BC, TROPI, BMPX, GLYHGB, LIPR ####[facility] [id number] [place] [address] Lab Director: Darius Sarah MD Triglyceride [Mass/Vol] 204 mg/dL High <[address] [facility] Comment on above: Result Comment: Triglyceride Guidelines: <150 Desirable 150-199 Borderline 200-499 High >499 Very high Based on AHA Guidelines for fasting triglyceride, April 2012. Performed By: #### C BC, TROPI, BMPX, GLYHGB, LIPR ####[facility] [id number] [place] [address] Lab Director: Darius Sarah MD Lipid panel - fastingon 04-0 Cholesterol [Mass/Vol] 151 mg/dL <200 [facility] Comment on above: Cholesterol Guidelines: <200 Desirable 200-240 Borderline >240 Undesirable Cholesterol in HDL [Mass/Vol] 30 mg/dL Low >40 [facility] Comment on above: HDL Guidelines: <40 Undesirable 40-59 Borderline >59 Desirable Cholesterol in LDL [Mass/Vol] 80 mg/dL 0 - 130 mg/dL [facility] Comment on above: LDL Guidelines: <100 Desirable 100-129 Near to/above Desirable 130-159 Borderline >159 Undesirable Direct (measured) LDL and calculated LDL are not interchangeable tests. Cholesterol.total/Audelia sterol in HDL [Mass ratio] 5 {ratio} High <5 [facility] Triglyceride [Mass/Vol] 204 mg/dL High <150 M [facility] Comment on above: Triglyceride Guidelines: <150 Desirable 150-199 Borderline 200-499 High >499 Very high Based on AHA Guidelines for fasting triglyceride, April 2012. MRI BRAIN WO CONTRASTon 04-0 MRI BRAIN WO CONTRAST EXAMINATION: MRI OF THE BRAIN WITHOUT CONTRAST 10/20/2021 1:13 pm TECHNIQUE: Multiplanar multisequence MRI of the brain was performed without the administration of intravenous contrast. COMPARISON: CT angiogram brain 10/19/2021 and earlier studies HISTORY: ORDERING SYSTEM PROVIDED HISTORY: CVA, post tpa TECHNOLOGIST PROVIDED HISTORY: CVA, post tpa What is the sedation requirement?->None Decision Support Exception - unselect if not a suspected or confirmed emergency medical condition->Emergency Medical Condition (MA) Is the patient ?->No Reason for Exam: CVA - Post tpa. FINDINGS: INTRACRANIAL STRUCTURES/VENTRICLES: There are no areas of restricted diffusion identified to suggest an acute infarct. There is no acute intracranial hemorrhage. No mass effect or midline shift is present. The brain is of normal signal intensities. There is no ventriculomegaly or abnormal extra-axial fluid collection present. There is no sellar or suprasellar mass present. The proximal portions of the [place] demonstrate normal flow voids. ORBITS: The visualized portion of the orbits demonstrate no acute abnormality. SINUSES: The visualized paranasal sinuses and mastoid air cells demonstrate no acute abnormality. BONES/SOFT TISSUES: Bone marrow signal intensity is normal. IMPRESSION: Normal MRI of the brain. Interpreted by: Ashish Ogden MD Signed by: Ashish Ogden MD 10/20/21 Final result Normal [place] MRI brain without contraston 10-20-2021 Normal MRI of the br ain. [facility] RIS CONSOLIDATED EXAMINATION: MRI OF THE BRAIN WITHOUT CONTRAST 10/20/2021 1:13 pm TECHNIQUE: Multiplanar multisequence MRI of the brain was performed without the administration of intravenous contrast. COMPARISON: CT angiogram brain 10/19/2021 and earlier studies HISTORY: ORDERING SYSTEM PROVIDED HISTORY: CVA, post tpa TECHNOLOGIST PROVIDED HISTORY: CVA, post tpa What is the sedation requirement?->None Decision Support Exception - unselect if not a suspected or confirmed emergency medical condition->Emergency Medical Condition (MA) Is the patient ?->No Reason for Exam: CVA - Post tpa. FINDINGS: INTRACRANIAL STRUCTURES/VENTRICLES: There are no areas of restricted diffusion identified to suggest an acute infarct. There is no acute intracranial hemorrhage. No mass effect or midline shift is present. The brain is of normal signal intensities. There is no ventriculomegaly or abnormal extra-axial fluid collection present. There is no sellar or suprasellar mass present. The proximal portions of the [place] demonstrate normal flow voids. ORBITS: The visualized portion of the orbits demonstrate no acute abnormality. SINUSES: The visualized paranasal sinuses and mastoid air cells demonstrate no acute abnormality. BONES/SOFT TISSUES: Bone marrow signal intensity is normal. [facility] Ashish Hoyos MD - 10/20/2021 EXAMINATION: MRI OF THE BRAIN WITHOUT CONTRAST 10/20/2021 1:13 pm TECHNIQUE: Multiplanar multisequence MRI of the brain was performed without the administration of intravenous contrast. COMPARISON: CT angiogram brain 10/19/2021 and earlier studies HISTORY: ORDERING SYSTEM PROVIDED HISTORY: CVA, post tpa TECHNOLOGIST PROVIDED HISTORY: CVA, post tpa What is the sedation requirement?->None Decision Support Exception - unselect if not a suspected or confirmed emergency medical condition->Emergency Medical Condition (MA) Is the patient ?->No Reason for Exam: CVA - Post tpa. FINDINGS: INTRACRANIAL STRUCTURES/VENTRICLES: There are no areas of restricted diffusion identified to suggest an acute infarct. There is no acute intracranial hemorrhage. No mass effect or midline shift is present. The brain is of normal signal intensities. There is no ventriculomegaly or abnormal extra-axial fluid collection present. There is no sellar or suprasellar mass present. The proximal portions of the [place] demonstrate normal flow voids. ORBITS: The visualized portion of the orbits demonstrate no acute abnormality. SINUSES: The visualized paranasal sinuses and mastoid air cells demonstrate no acute abnormality. BONES/SOFT TISSUES: Bone marrow signal intensity is normal. IMPRESSION: Normal MRI of the brain. [employer] Work Phone: Radiology Study observation (narrative) [employer] [facility] Work Phone: MRI brain without contrastOr dered By: Ashish Ogden on 10-20-2021 [facility] Work Phone: No Panel Informationon 10-20 Interpretation and review of laboratory results Abnormal [facility] [id number] 10-20-2021 SARS-CoV-2 (COVID-19) RNA FAUSTINA+probe Ql (Unsp spec) Not detected Normal NOTDET [place] Comment on above: Result Comment: Rapid NAAT: The specimen is NEGATIVE for SARS-CoV-2, the novel coronavirus associated with COVID-19. The ID NOW COVID-19 assay is designed to detect the virus that causes COVID-19 in patients with signs and symptoms of infection who are suspected of COVID-19. An individual without symptoms of COVID-19 and who is not shedding SARS-CoV-2 virus would expect to have a negative (not detected) result in this assay. Negative results should be treated as presumptive and, if inconsistent with clinical signs and symptoms or necessary for patient management, should be tested with an alternative molecular assay. Negative results do not preclude SARS-CoV-2 infection and should not be used as the sole basis for patient management decisions. Fact sheet for Healthcare Providers: https://www.fda.gov/media/804858/download Fact sheet for Patients: https://www.fda.gov/media/256474/download Methodology: Isothermal Nucleic Acid Amplification Performed By: #### C OVRB #### [employer] [address] [place] [address] Telephone Operator Receptionist: Darius Sarah MD Troponinon 10-20-2021 Troponin, High Sens <6 Normal 0-14 [place] Comment on above: Result Comment: High Sensitivity Troponin values cannot be compared with other Troponin methodologies. Patients with high levels of Biotin oral intake (i.e >5mg/day) may have falsely decreased Troponin levels. Samples collected within 8 hours of biotin intake may require additional information for diagnosis. Performed By: #### C BC, TROPI, BMPX, GLYHGB, LIPR #### [employer] [address] [place] [address] Telephone Operator Receptionist: Darius Sarah MD Troponin, High Sensitivity <6 0 - 14 ng/L [facility] Comment on above: High Sensitivity Troponin values cannot be compared with other Troponin methodologies. Patients with high levels of Biotin oral intake (i.e >5mg/day) may have falsely decreased Troponin levels. Samples collected within 8 hours of biotin intake may require additional information for diagnosis. [facility] APTTon 10-19-2021 aPTT Coag (Bld) [Time] 27.[address] [facility] Comment on above: IV Heparin Therapy Range: 62.0-94.0 [facility] CBC with Auto Differentialon 10-19-2021 Absolute Eos # 0.09 [facility] th Absolute Immature Granulocyte <0.03 [facility] Absolute Lymph # 2.20 [facility] alth Absolute [place] # 0.57 [facility] lth Basophils (Bld) [#/Vol] 0.06 10*3/uL [facility] Basophils/100 WBC (Bld) 1 % 0 - 2 % [facility] Eosinophils/100 WBC (Bld) 1 % 1 - 4 % [facility] Hematocrit (Bld) [Volume fraction] 38.2 % 36.3 - 47.1 % [facility] Hemoglobin.gastrointest inal spec 1 Ql (Stl) 12.9 g/dL 11.9 - 15.1 g/dL [facility] Immature granulocytes/100 WBC (Bld) 0 % 0 [facility] Interpretation and review of laboratory results Abnormal [facility] Lymphocytes/100 WBC (Bld) 23 % Low 24 - 43 % [facility] MCH (RBC) [Entitic mass] 30.4 pg 25.2 - 33.5 pg [facility] MCHC (RBC) [Mass/Vol] 33.8 g/dL 28.4 - 34.8 g/dL [facility] MCV (RBC) [Entitic vol] 89.9 fL 82.6 - 102.9 fL [facility] Monocytes/100 WBC (Bld) 6 % 3 - 12 % [facility] NRBC Automated 0.0 0.0 per 100 WBC [facility] Platelet distribution width (Bld) [Ratio] 11.9 % 11.8 - 14.4 % [facility] Platelet mean volume (Bld) [Entitic vol] 10.1 fL 8.1 - 13.5 fL [facility] Platelets (Bld) [#/Vol] 317 10*3/uL [facility] RBC (Bld) [#/Vol] 4.25 10*6/uL 3.95 - 5.11 m/uL [facility] Segmented neutrophils/100 WBC (Bld) 69 % High 36 - 65 % [facility] Segs Absolute [facility] WBC (Bld[facility] [#/Vol] 9.5 10*3/uL [facility] CT Head WO Contraston 2021 Radiology Study observation (narrative) [employer] Work Phone: CTA HEAD NECK W CONTRASTon 0 10-19-2021 Radiology Study observation (narrative) [employer] Work Phone: Comprehensive Metabolic Pane l w/ Reflex to MGon 10-19-2021 Albumin [Mass/Vol] 4.3 g/dL 3.5 - 5.2 g/dL [facility] Albumin/Globulin [Mass ratio] 1.4 {ratio} [facility] ALP (Bld) [Catalytic activity/Vol] 95 U/L 35 - 104 U/L [facility] ALT [Catalytic activity/Vol] 28 U/L 5 - 33 U/L [facility] Anion gap [Moles/Vol] 9 mmol/L 9 - 17 mmol/L [facility] AST [Catalytic activity/Vol] 23 U/L <32 [facility] Bilirubin [Mass/Vol] 0.24 mg/dL Low 0.3 - 1 .2 mg/dL [facility] Calcium [Mass/Vol] 9.3 mg/dL 8.6 - 10. 4 mg/dL [facility] Chloride [Moles/Vol] 102 mmol/L 98 - 10 7 mmol/L [facility] CO2 [Moles/Vol] 25 mmol/L 20 - 31 mmol/L [facility] Creatinine [Mass/Vol] 0.75 mg/dL 0.50 - 0.90 mg/dL [facility] Free PSA/Total PSA [Mass fraction] 7.3 g/dL 6.4 - 8.3 g/dL [facility] GFR >60 >60 mL/min [facility] GFR Non- >60 >60 mL/min [facility] Glucose [Mass/Vol] 103 mg/dL High 70 - 99 mg/dL [facility] Interpretation and review of laboratory results Abnormal [facility] Potassium [Moles/Vol] 4.3 mmol/L 3.7 - 5.3 mmol/L [facility] Sodium [Moles/Vol] 136 mmol/L 135 - 144 mmol/L [facility] Urea nitrogen (BldV) [Mass/Vol] 10 mg/dL 6 - 20 mg/dL [facility] Urea nitrogen/Creatinine (Bld) [Mass ratio] 13 [facility] Glucose, Whole Bloodon 10-19 Glucose [Mass/Vol] 105 mg/dL High 74 - 100 mg/dL [facility] Interpretation and review of laboratory results Abnormal [facility] Laboratory - Chemistry and C hemistry - challengeon 10-19-2021 GFR/1.73 sq M.predicted MDRD (S/P/Bld) [Vol rate/Area] [facility] Comment on above: Average GFR for 40-4 9 years old: 99 mL/min/1.73sq m Chronic Kidney Disease: <60 mL/min/1.73sq m Kidney failure: <15 mL/min/1.73sq m eGFR calculated using average adult body mass. Additional eGFR calculator available at: http://www.[employer]/multiple_crcl_2012.htm Stage 1: Some kidney damage normal GFR Stage 2: Mild kidney damage GFR 60-89 Stage 3: Moderate kidney damage GFR 30-59 Stage 4: Severe kidney damage GFR 15-29 Stage 5: Severe kidney damage GFR <15 ESRD - chronic treatment by dialysis or transplant No Panel Informationon 10-19 Ct head: No acute territorial infarction, intracranial hemorrhage or mass lesion. CTA NECK: Moderate 60% stenosis at the origin of the right cervical internal carotid artery. Moderate stenosis at the origin of right vertebral artery. Mild stenosis at the origin of left common carotid artery. CTA HEAD: No hemodynamically significant stenosis within the head. No aneurysm. CAROTID STENOSIS REFERENCE: The [place] Symptomatic Carotid Endarterectomy Trial (NASCET) is a method of quantifying internal carotid artery stenosis. Distal internal carotid artery diameter as the denominator for stenosis measurement: MILD = <50% stenosis. MODERATE = 50-69% stenosis. SEVERE = 70-89% stenosis. HAIRLINE/CRITICAL = 90-99% stenosis. OCCLUDED = 100% stenosis. [facility] RIS CONSOLIDATED EXAMINATION: CT OF THE HEAD WITHOUT CONTRAST; CTA OF THE HEAD AND NECK WITH CONTRAST 10/19/2021 8:38 pm: TECHNIQUE: CT of the head was performed without the administration of intravenous contrast. Dose modulation, iterative reconstruction, and/or weight based adjustment of the mA/kV was utilized to reduce the radiation dose to as low as reasonably achievable.; CTA of the head and neck was performed with the administration of intravenous contrast. Multiplanar reformatted images are provided for review. MIP images are provided for review. Stenosis of the internal carotid arteries measured using NASCET criteria. Dose modulation, iterative reconstruction, and/or weight based adjustment of the mA/kV was utilized to reduce the radiation dose to as low as reasonably achievable. Noncontrast CT of the head with reconstructed 2-D images are also provided for review. COMPARISON: None. HISTORY: ORDERING SYSTEM PROVIDED HISTORY: facial droop, lue weak, lle weak, diplopia TECHNOLOGIST PROVIDED HISTORY: facial droop, lue weak, lle weak, diplopia Decision Support Exception - unselect if not a suspected or confirmed emergency medical condition->Emergency Medical Condition (MA) Is the patient ?->No; ORDERING SYSTEM PROVIDED HISTORY: left side weakness TECHNOLOGIST PROVIDED HISTORY: left side weakness Decision Support Exception - unselect if not a suspected or confirmed emergency medical condition->Emergency Medical Condition (MA) FINDINGS: CT HEAD: BRAIN/VENTRICLES: No acute intracranial hemorrhage or extraaxial fluid collection. Mitchell-white differentiation is maintained. No evidence of mass, mass effect or midline shift. No evidence of hydrocephalus. ORBITS: The visualized portion of the orbits demonstrate no acute abnormality. SINUSES: The visualized paranasal sinuses and mastoid air cells demonstrate no acute abnormality. SOFT TISSUES/SKULL: No acute abnormality of the visualized skull or soft tissues. CTA NECK: AORTIC ARCH/ARCH VESSELS: No dissection or arterial injury. No significant stenosis of the brachiocephalic or subclavian arteries. Moderate stenosis at the origin of the right vertebral artery. Mild stenosis at the origin of the left common carotid artery. CAROTID ARTERIES: No dissection, arterial injury. There is mild atherosclerotic calcification of bilateral carotid bulbs extending into the origin of internal carotid arteries resulting in moderate 60% stenosis at the origin of the right internal carotid artery. VERTEBRAL ARTERIES: No dissection, arterial injury, or significant stenosis. SOFT TISSUES: The lung apices are clear. No cervical or superior mediastinal lymphadenopathy. The larynx and pharynx are unremarkable. No acute abnormality of the salivary and thyroid glands. BONES: No acute osseous abnormality. CTA HEAD: ANTERIOR CIRCULATION: No significant stenosis of the intracranial internal carotid, anterior cerebral, or middle cerebral arteries. No aneurysm. Right LUISA A1 segment is hypoplastic. POSTERIOR CIRCULATION: No significant stenosis of the vertebral, basilar, or posterior cerebral arteries. No aneurysm. OTHER: No dural venous sinus thrombosis on this non-dedicated study. [facility] Teresa Johnson MD - 10/19/2021 EXAMINATION: CT OF THE HEAD WITHOUT CONTRAST; CTA OF THE HEAD AND NECK WITH CONTRAST 10/19/2021 8:38 pm: TECHNIQUE: CT of the head was performed without the administration of intravenous contrast. Dose modulation, iterative reconstruction, and/or weight based adjustment of the mA/kV was utilized to reduce the radiation dose to as low as reasonably achievable.; CTA of the head and neck was performed with the administration of intravenous contrast. Multiplanar reformatted images are provided for review. MIP images are provided for review. Stenosis of the internal carotid arteries measured using NASCET criteria. Dose modulation, iterative reconstruction, and/or weight based adjustment of the mA/kV was utilized to reduce the radiation dose to as low as reasonably achievable. Noncontrast CT of the head with reconstructed 2-D images are also provided for review. COMPARISON: None. HISTORY: ORDERING SYSTEM PROVIDED HISTORY: facial droop, lue weak, lle weak, diplopia TECHNOLOGIST PROVIDED HISTORY: facial droop, lue weak, lle weak, diplopia Decision Support Exception - unselect if not a suspected or confirmed emergency medical condition->Emergency Medical Condition (MA) Is the patient ?->No; ORDERING SYSTEM PROVIDED HISTORY: left side weakness TECHNOLOGIST PROVIDED HISTORY: left side weakness Decision Support Exception - unselect if not a suspected or confirmed emergency medical condition->Emergency Medical Condition (MA) FINDINGS: CT HEAD: BRAIN/VENTRICLES: No acute intracranial hemorrhage or extraaxial fluid collection. Mitchell-white differentiation is maintained. No evidence of mass, mass effect or midline shift. No evidence of hydrocephalus. ORBITS: The visualized portion of the orbits demonstrate no acute abnormality. SINUSES: The visualized paranasal sinuses and mastoid air cells demonstrate no acute abnormality. SOFT TISSUES/SKULL: No acute abnormality of the visualized skull or soft tissues. CTA NECK: AORTIC ARCH/ARCH VESSELS: No dissection or arterial injury. No significant stenosis of the brachiocephalic or subclavian arteries. Moderate stenosis at the origin of the right vertebral artery. Mild stenosis at the origin of the left common carotid artery. CAROTID ARTERIES: No dissection, arterial injury. There is mild atherosclerotic calcification of bilateral carotid bulbs extending into the origin of internal carotid arteries resulting in moderate 60% stenosis at the origin of the right internal carotid artery. VERTEBRAL ARTERIES: No dissection, arterial injury, or significant stenosis. SOFT TISSUES: The lung apices are clear. No cervical or superior mediastinal lymphadenopathy. The larynx and pharynx are unremarkable. No acute abnormality of the salivary and thyroid glands. BONES: No acute osseous abnormality. CTA HEAD: ANTERIOR CIRCULATION: No significant stenosis of the intracranial internal carotid, anterior cerebral, or middle cerebral arteries. No aneurysm. Right LUISA A1 segment is hypoplastic. POSTERIOR CIRCULATION: No significant stenosis of the vertebral, basilar, or posterior cerebral arteries. No aneurysm. OTHER: No dural venous sinus thrombosis on this non-dedicated study. IMPRESSION: Ct head: No acute territorial infarction, intracranial hemorrhage or mass lesion. CTA NECK: Moderate 60% stenosis at the origin of the right cervical internal carotid artery. Moderate stenosis at the origin of right vertebral artery. Mild stenosis at the origin of left common carotid artery. CTA HEAD: No hemodynamically significant stenosis within the head. No aneurysm. CAROTID STENOSIS REFERENCE: The [place] Symptomatic Carotid Endarterectomy Trial (NASCET) is a method of quantifying internal carotid artery stenosis. Distal internal carotid artery diameter as the denominator for stenosis measurement: MILD = <50% stenosis. MODERATE = 50-69% stenosis. SEVERE = 70-89% stenosis. HAIRLINE/CRITICAL = 90-99% stenosis. OCCLUDED = 100% stenosis. [employer] Phone: No Panel InformationOrdered By: Teresa Herzog on 10-19-2021 [employer] Phone: Protime-INRon 10-19-2021 INR Coag (Bld) [Relative time] 1.0 {INR} [employer] Comment on above: Non-therapeutic Range: INR = 0.9-1.2 Therapeutic Range: Moderate Anticoagulant Intensity: INR = 2.0-3.0 High Anticoagulant Intensity: INR = 2.5-3.5 PT Coag (PPP) [Time] 13.3 s [facility] Troponinon 10-19-2021 Troponin, High Sensitivity <6 0 - 14 ng/L [employer] Comment on above: High Sensitivity Troponin values cannot be compared with other Troponin methodologies. Patients with high levels of Biotin oral intake (i.e >5mg/day) may have falsely decreased Troponin levels. Samples collected within 8 hours of biotin intake may require additional information for diagnosis. [employer] XR CHEST PORTABLEon 10-20-19 22 1. No acute cardiopulmonary abnormality. [facility] EXAMINATION: ONE XRAY VIEW OF THE CHEST 10/19/2021 8:40 pm COMPARISON: None. HISTORY: ORDERING SYSTEM PROVIDED HISTORY: stroke symptoms TECHNOLOGIST PROVIDED HISTORY: stroke symptoms FINDINGS: The lungs are clear, no effusion. No pneumothorax. Heart is normal size. Mediastinal and hilar contours are within normal limits. Bony thorax no acute abnormality. [facility] Antony Nichols MD - 10/19/2021 EXAMINATION: ONE XRAY VIEW OF THE CHEST 10/19/2021 8:40 pm COMPARISON: None. HISTORY: ORDERING SYSTEM PROVIDED HISTORY: stroke symptoms TECHNOLOGIST PROVIDED HISTORY: stroke symptoms FINDINGS: The lungs are clear, no effusion. No pneumothorax. Heart is normal size. Mediastinal and hilar contours are within normal limits. Bony thorax no acute abnormality. IMPRESSION: 1. No acute cardiopulmonary abnormality. [employer] Work Phone: Radiology Study observation (narrative) [employer] Phone: XR CHEST PORTABLEOrdered By: Antony Nichols on 10-19-2021 [employer] Work Phone: [id number] COMPLETEon [facility] Transthoracic Echocardiography Report (TTE) Patient Name ADRIÁN Date of Study 10/07/2021 MIKE N Date of 1975 Gender Female Age 45 year(s) Race Room Number 0328 Height: 64 inch, 162.56 cm Corporate ID [id number] Weight: 190 pounds, 86.2 kg # Patient Acct [id number] BSA: 1.91 m^2 BMI: 32.61 # kg/m^2 MR # [id number] Manufacturing Applications Engineer Libertad Prieto Interpreting Physician Nat Mora Fellow Referring Nurse Practitioner Interpreting Referring Physician Rl Blanc Fellow Type of Study TTE procedure:2D Echocardiogram, M-Mode, Doppler, Color Doppler. Procedure Date Date: 10/07/2021 Start: 09:52 AM Study Location: [facility] Indications:Chest pain. History / Tech. Comments: Chest pain PMHX: TIA Patient Status: Outpatient Height: 64 inches Weight: 190 pounds BSA: 1.91 m^2 BMI: 32.61 kg/m^2 BP: 148/80 mmHg Allergies - Cephalosporins. CONCLUSIONS Summary Global left ventricular systolic function appears preserved with an estimated ejection fraction of >60%. The left ventricular cavity size is within normal limits and the left ventricular wall thickness is mildly increased. No definite specific wall motion abnormalities were identified. Mild aortic regurgitation. No clear evidence of diastolic dysfunction was seen. Compared to the previous study of 07/04/2020, no significant change was seen. Signature ---- ---- ---- ---- FINDINGS Left Atrium Left atrium is normal in size. Left Ventricle Global left ventricular systolic function appears preserved with an estimated ejection fraction of >60%. The left ventricular cavity size is within normal limits and the left ventricular wall thickness is mildly increased. No definite specific wall motion abnormalities were identified. Right Atrium Right atrium is normal in size. Right Ventricle Normal right ventricular size and function. Mitral Valve Normal mitral valve structure and function. Aortic Valve Normal aortic valve structure with mild aortic regurgitation. Tricuspid Valve Normal tricuspid valve structure and function. Pulmonic Valve The pulmonic valve is normal in structure. Pericardial Effusion No significant pericardial effusion is seen. Miscellaneous Normal aortic root diameter. No clear evidence of diastolic dysfunction was seen. M-mode / 2D Measurements & Calculations: LVIDd:3.95 cm(3.7 - 5.6 cm) Diastolic Volume:61.74 ml LVIDs:2.75 cm(2.2 - 4.0 cm) Systolic Volume:20.83 ml IVSd:1.24 cm(0.6 - 1.1 cm) Aortic Root:3.07 cm(2.0 - 3.7 cm) LVPWd:1.21 cm(0.6 - 1.1 cm) LA Dimension: 3.17 cm(1.9 - 4.0 cm) Fractional Shortenin.38 % LA volume/Index: 15.9 ml /8m^2 Calculated LVEF (%): 66.26 % AV Cusp Separation: 1.87 cm Mitral: Aortic Valve Area (P1/2-Time): 2.41 cm^2 Peak Velocity: 1.33 m/s Peak E-Wave: 0.51 m/s Mean Velocity: 0.86 m/s Peak A-Wave: 0.73 m/s Peak Gradient: 7.07 mmHg E/A Ratio: 0.7 Mean Gradient: 3.36 mmHg Peak Gradient: 1.05 mmHg Acceleration Time: 116.03 msec P1/2t: 91.33 msec AV VTI: 29.17 cm Diastology / Tissue Doppler Lateral Wall E' velocity:0.15 m/s Lateral Wall E/E':3.4 [facility] M[facility] Nat Mora MD - 10/07/2021 [facility] Transthoracic Echocardiography Report (TTE) Patient Name ADRIÁN Date of Study 10/07/2021 MIKE N Date of 1975 Gender Female Age 45 year(s) Race Room Number 0328 Height: 64 inch, 162.56 cm Corporate ID [id number] Weight: 190 pounds, 86.2 kg # Patient Acct [id number] BSA: 1.91 m^2 BMI: 32.61 # kg/m^2 MR # [id number] Manufacturing Applications Engineer Libertad Prieot Interpreting Physician Nat Mora Referring Nurse Practitioner Interpreting Referring Physician Rl Blanc Fellow Type of Study TTE procedure:2D Echocardiogram, M-Mode, Doppler, Color Doppler. Procedure Date Date: 10/07/2021 Start: 09:52 AM Study Location: [facility] Indications:Chest pain. History / Tech. Comments: Chest pain PMHX: TIA Patient Status: Outpatient Height: 64 inches Weight: 190 pounds BSA: 1.91 m^2 BMI: 32.61 kg/m^2 BP: 148/80 mmHg Allergies - Cephalosporins. CONCLUSIONS Summary Global left ventricular systolic function appears preserved with an estimated ejection fraction of >60%. The left ventricular cavity size is within normal limits and the left ventricular wall thickness is mildly increased. No definite specific wall motion abnormalities were identified. Mild aortic regurgitation. No clear evidence of diastolic dysfunction was seen. Compared to the previous study of 07/04/2020, no significant change was seen. Signature --- - --- - --- - --- - FINDINGS Left Atrium Left atrium is normal in size. Left Ventricle Global left ventricular systolic function appears preserved with an estimated ejection fraction of >60%. The left ventricular cavity size is within normal limits and the left ventricular wall thickness is mildly increased. No definite specific wall motion abnormalities were identified. Right Atrium Right atrium is normal in size. Right Ventricle Normal right ventricular size and function. Mitral Valve Normal mitral valve structure and function. Aortic Valve Normal aortic valve structure with mild aortic regurgitation. Tricuspid Valve Normal tricuspid valve structure and function. Pulmonic Valve The pulmonic valve is normal in structure. Pericardial Effusion No significant pericardial effusion is seen. Miscellaneous Normal aortic root diameter. No clear evidence of diastolic dysfunction was seen. M-mode / 2D Measurements & Calculations: LVIDd:3.95 cm(3.7 - 5.6 cm) Diastolic Volume:61.74 ml LVIDs:2.75 cm(2.2 - 4.0 cm) Systolic Volume:20.83 ml IVSd:1.24 cm(0.6 - 1.1 cm) Aortic Root:3.07 cm(2.0 - 3.7 cm) LVPWd:1.21 cm(0.6 - 1.1 cm) LA Dimension: 3.17 cm(1.9 - 4.0 cm) Fractional Shortenin.38 % LA volume/Index: 15.9 ml /8m^2 Calculated LVEF (%): 66.26 % AV Cusp Separation: 1.87 cm Mitral: Aortic Valve Area (P1/2-Time): 2.41 cm^2 Peak Velocity: 1.33 m/s Peak E-Wave: 0.51 m/s Mean Velocity: 0.86 m/s Peak A-Wave: 0.73 m/s Peak Gradient: 7.07 mmHg E/A Ratio: 0.7 Mean Gradient: 3.36 mmHg Peak Gradient: 1.05 mmHg Acceleration Time: 116.03 msec P1/2t: 91.33 msec AV VTI: 29.17 cm Diastology / Tissue Doppler Lateral Wall E' velocity:0.15 m/s Lateral Wall E/E':3.4 [employer] Phone: [employer] Phone: EKG 12 LeadOrdered By: Aidan Richter on 10-07-2021 Atrial Rate 86 BPM [employer] Phone: P Kingston 70 degrees [employer] Phone: P-R Interval 164 ms [employer] Phone: Q-T Interval 378 ms [employer] Phone: QRS Duration 80 ms [employer] Phone: QTc Calculation (Bazett) 452 ms [employer] Phone: R Kingston -10 degrees [facility] Work Phone: T Kingston 59 degrees [facility] Work Phone: Ventricular Rate 86 BPM [facility] Work Phone: [facility] Work Phone: EKG 12 Leadon 10-07-2021 Normal sinus rhythm Possible Left atrial enlargement Nonspecific ST abnormality Abnormal ECG When compared with ECG of 08-JUL-2021 14:55, Vent. rate has increased BY 29 BPM Confirmed by GILMAR RICHTER ([id number]) on 10/07/2021 12:44:46 PM [facility] RADIOLOGY Gilmar Richter MD - 10/07/2021 Normal sinus rhythm Possible Left atrial enlargement Nonspecific ST abnormality Abnormal ECG When compared with ECG of 08-JUL-2021 14:55, Vent. rate has increased BY 29 BPM Confirmed by GILMAR RICHTER ([id number]) on 10/07/2021 12:44:46 PM [facility] Work Phone: EKG 12 leadon 10-07-2021 Atrial Rate 72 BPM [facility] Work Phone: P Kingston 53 degrees [facility] Work Phone: P-R Interval 172 ms [facility] Work Phone: Q-T Interval 456 ms [facility] Work Phone: QRS Duration 88 ms [facility] Work Phone: QTc Calculation (Bazett) 499 ms [facility] Work Phone: R Kingston 3 degrees [facility] Work Phone: T Kingston 39 degrees [facility] Work Phone: Ventricular Rate 72 BPM [employer] [employer] [facility] [employer] [facility] Work Phone: Normal sinus rhythm Nonspecific T wave abnormality Abnormal ECG When compared with ECG of 06-OCT-2021 19:51, (unconfirmed) Nonspecific T wave abnormality now evident in Inferior leads Nonspecific T wave abnormality, worse in Lateral leads Confirmed by GILMAR RICHTER ([id number]) on 10/07/2021 12:44:30 PM [facility] RADIOLOGY Gilmar Richter MD - 10/07/2021 Normal sinus rhythm Nonspecific T wave abnormality Abnormal ECG When compared with ECG of 06-OCT-2021 19:51, (unconfirmed) Nonspecific T wave abnormality now evident in Inferior leads Nonspecific T wave abnormality, worse in Lateral leads Confirmed by GILMAR RICHTER ([id number]) on 10/07/2021 12:44:30 PM [facility] Work Phone: [facility] [employer] Phone: EKG Rhythm Stripon [facility] STRESS - MYOVIEWon 2 Nat Mora MD - 10/07/2021 1:31 PM EDT [address] [id number] CARDIAC STRESS TEST PATIENT NAME: MIKE SHARIF : 1975 MED REC NO: [id number] ROOM: 0328 ACCOUNT NO: [id number] ADMIT DATE: 10/06/2021 PROVIDER: aNt Mora MD CARDIOVASCULAR DIAGNOSTIC DEPARTMENT DATE OF STUDY: 10/06/2021 ORDERING PROVIDER: Rl Blanc MD PRIMARY CARE PROVIDER: Ena Fung APRN-SUPERINTENDENT PRESSURE INTERPRETING PHYSICIAN: Nat Mora MD PHARMACOLOGIC MYOCARDIAL PERFUSION STRESS TESTING Rest/stress single isotope SPECT imaging with exercise stress and gated SPECT imaging. INDICATIONS: Assessment of chest pain. CLINICAL HISTORY: The patient is a 45-year-old woman with known coronary artery disease. Previous cardiac history includes: Stress test, cardiac catheterization. Other previous history includes: Chest pain, palpitations, dyspnea, lightheadedness hypertension, family history of coronary artery disease in mother and father under age 60. Symptoms just prior to testing include: None. Relevant medications: Metoprolol (Toprol), amlodipine (Norvasc). PROCEDURE: The heart rate was 99 at baseline and dashawn to 117 beats per minute during the regadenoson infusion. The rest blood pressure was 138/74 mm/Hg and increased to 148/80 mm/Hg. The patient did complain of chest pain (8/10) and shortness of breath following infusion. Pharmacologic stress testing was performed with regadenoson at a dose of 0.4 mg. Additionally, low level exercise using slow treadmill walking was performed along with vasodilator infusion. MYOCARDIAL PERFUSION IMAGING: Imaging was performed at rest 30-45 minutes following the injection of 10 mCi of sestamibi. Approximately 10 seconds after Lexiscan injection, the patient was injected with 30 mCi of sestamibi. Gating post-stress tomographic imaging was performed 30-45 minutes after stress. STRESS ECG RESULTS: The resting electrocardiogram demonstrated normal sinus rhythm without significant ST-segment abnormalities that may impair accurate ECG detection of stress induced cardiac ischemia. During vasodilator infusion and during recovery, the patient developed: No significant ST segment changes suggestive of myocardial ischemia with no premature atrial contractions (PACs) and no premature ventricular contractions (PVCs). NUCLEAR IMAGING RESULTS: The overall quality of the study is fair. No significant attenuation artifact was seen. There is no evidence of abnormal lung uptake. Additionally, the right ventricle appears normal. The left ventricular cavity is noted to be normal in size on the stress images. There is no evidence of transient ischemic dilatation (TID) of the left ventricle. (TID: 1.21) Gated SPECT imaging reveals normal myocardial thickening and wall motion with a calculated left ventricular ejection fraction of >70%. The rest images demonstrate homogeneous tracer distribution throughout the myocardium. SPECT images demonstrate homogeneous tracer distribution throughout the myocardium. IMPRESSION: 1. Normal myocardial perfusion imaging without significant evidence of myocardial ischemia or infarction. 2. Global left ventricular systolic function was normal with an EF of >70% without regional wall motion abnormalities. 3. No significant electrocardiographic evidence of myocardial ischemia during EKG monitoring without significant associated arrhythmias. Overall, these results are most consistent with a low risk for ischemia. The sensitivity for detecting ischemia on this test may have been reduced due to the patient being on a beta christos and a calcium channel christos. NAT MORA MD JIMMY/CANDE_FRANCINE Doc#: Unknown CC: Ena Blanc [facility] Work Phone: [facility] Work Phone: Troponinon 10-07-2021 Troponin, High Sensitivity 6 ng/L 0 - 14 ng/L [facility] Comment on above: High Sensitivity Troponin values cannot be compared with other Troponin methodologies. Patients with high levels of Biotin oral intake (i.e >5mg/day) may have falsely decreased Troponin levels. Samples collected within 8 hours of biotin intake may require additional information for diagnosis. [facility] Imagiin. Basic Metabolic Panelon 09-17 Anion gap [Moles/Vol] 12 mmol/L 9 - 17 mmol/L [facility] Calcium [Mass/Vol] 9.2 mg/dL 8.6 - 10. 4 mg/dL [facility] Chloride [Moles/Vol] 103 mmol/L 98 - 10 7 mmol/L [facility] CO2 [Moles/Vol] 22 mmol/L 20 - 31 mmol/L [facility] Creatinine [Mass/Vol] 0.61 mg/dL 0.50 - 0.90 mg/dL [facility] GFR >60 >60 mL/min [facility] GFR Non- >60 >60 mL/min [facility] Glucose [Mass/Vol] 113 mg/dL High 70 - 99 mg/dL [facility] Interpretation and review of laboratory results Abnormal [facility] Potassium [Moles/Vol] 3.4 mmol/L Low 3.7 - 5.3 mmol/L [facility] Sodium [Moles/Vol] 137 mmol/L 135 - 144 mmol/L [facility] Urea nitrogen (BldV) [Mass/Vol] 6 mg/dL 6 - 20 mg/dL [facility] Urea nitrogen/Creatinine (Bld) [Mass ratio] 10 [facility] CBC with Auto Differentialon 10-06-2021 Absolute Eos # 0.11 [facility] th Absolute Immature Granulocyte <0.03 [facility] Absolute Lymph # 3.53 [facility] alth Absolute [place] # 0.73 [facility] lth Basophils (Bld) [#/Vol] 0.06 10*3/uL [facility] Basophils/100 WBC (Bld) 1 % 0 - 2 % [facility] Eosinophils/100 WBC (Bld) 1 % 1 - 4 % [facility] Hematocrit (Bld) [Volume fraction] 40.0 % 36.3 - 47.1 % [facility] Hemoglobin.gastrointest inal spec 1 Ql (Stl) 13.7 g/dL 11.9 - 15.1 g/dL [facility] Immature granulocytes/100 WBC (Bld) 0 % 0 [facility] Lymphocytes/100 WBC (Bld) 35 % 24 - 43 % [facility] MCH (RBC) [Entitic mass] 30.9 pg 25.2 - 33.5 pg [facility] MCHC (RBC) [Mass/Vol] 34.3 g/dL 28.4 - 34.8 g/dL [facility] MCV (RBC) [Entitic vol] 90.1 fL 82.6 - 102.9 fL [facility] Monocytes/100 WBC (Bld) 7 % 3 - 12 % M [facility] NRBC Automated 0.0 0.0 per 100 WBC [facility] Platelet distribution width (Bld) [Ratio] 12.3 % 11.8 - 14.4 % [facility] Platelet mean volume (Bld) [Entitic vol] 9.9 fL 8.1 - 13.5 fL [facility] Platelets (Bld) [#/Vol] 352 10*3/uL [facility] RBC (Bld) [#/Vol] 4.44 10*6/uL 3.95 - 5.11 m/uL [facility] Segmented neutrophils/100 WBC (Bld) 56 % 36 - 65 % [facility] Segs Absolute 5.66 [facility] h WBC (Bld) [#/Vol] 10.1 10*3/uL [facility] D-Dimer, Quantitativeon -2 D-Dimer, Quant 0.52 [facility] th Comment on above: When combined with a low clinical probability, a D dimer value of <0.50 mg/L FEU is considered negative for DVT and PE (negative predictive value of 98%, sensitivity of 97%). If this test is not being used to help rule out DVT and PE, then the following reference range should be utilized: 0.00 - 0.59 mg/L FEU. The D-Dimer assay is intended for use as an aid in the diagnosis of venous thromboembolism (DVT and PE) and the results should be interpreted in conjunction with the patient's medical history, clinical presentation, and other findings. Elevated levels of D-dimer activity can be seen in any state of coagulation activation and is not recommended in patients with therapeutic dose anticoagulant therapy for >24 hours, fibrinolytic therapy within the previous 7 days, trauma or surgery within the previous 4 weeks, disseminated malignancies, aortic aneurysm, sepsis, severe infections, pneumonia, severe skin infections, liver cirrhosis, advanced age, coronary disease, diabetes, and . A very low percentage of patients with DVT may yield D-dimer results below the cutoff of 0.5 mg/L FEU. This is known to be more prevalent in patients with distal DVT. [employer] Hepatic Function Panelon Albumin [Mass/Vol] 4.7 g/dL 3.5 - 5.2 g/dL [employer] Albumin/Globulin [Mass ratio] 1.6 {ratio} [facility] ALP (Bld) [Catalytic activity/Vol] 97 U/L 35 - 104 U/L [employer] ALT [Catalytic activity/Vol] 45 U/L High 5 - 33 U/L [employer] AST [Catalytic activity/Vol] 32 U/L High <32 [facility] Bilirubin [Mass/Vol] 0.20 mg/dL Low 0.3 - 1 .2 mg/dL [facility] Imagiin. Bilirubin, Indirect Can not be calculated 0.00 - 1.00 mg/dL [facility] Bilirubin.indirect [Mass/Vol] mg/dL <0.31 mg/dL [facility] Free PSA/Total PSA [Mass fraction] 7.6 g/dL 6.4 - 8.3 g/dL [facility] Interpretation and review of laboratory results Abnormal [facility] Imagiin. Laboratory - Chemistry and C hemistry - challengeon 10-06-2021 GFR/1.73 sq M.predicted MDRD (S/P/Bld) [Vol rate/Area] [facility] Comment on above: Average GFR for 40-4 9 years old: 99 mL/min/1.73sq m Chronic Kidney Disease: <60 mL/min/1.73sq m Kidney failure: <15 mL/min/1.73sq m eGFR calculated using average adult body mass. Additional eGFR calculator available at: [email or web address] Stage 1: Some kidney damage normal GFR Stage 2: Mild kidney damage GFR 60-89 Stage 3: Moderate kidney damage GFR 30-59 Stage 4: Severe kidney damage GFR 15-29 Stage 5: Severe kidney damage GFR <15 ESRD - chronic treatment by dialysis or transplant Lipaseon 10-06-2021 Lipase [Catalytic activity/Vol] 23 U/L 13 - 60 U/L [facility] No Panel Informationon 10-06 [employer] Imagiin. Troponinon 10-06-2021 Troponin, High Sensitivity <6 0 - 14 ng/L [facility] Comment on above: High Sensitivity Troponin values cannot be compared with other Troponin methodologies. Patients with high levels of Biotin oral intake (i.e >5mg/day) may have falsely decreased Troponin levels. Samples collected within 8 hours of biotin intake may require additional information for diagnosis. [employer] Troponin, High Sensitivity <6 0 - 14 ng/L [facility] Comment on above: High Sensitivity Troponin values cannot be compared with other Troponin methodologies. Patients with high levels of Biotin oral intake (i.e >5mg/day) may have falsely decreased Troponin levels. Samples collected within 8 hours of biotin intake may require additional information for diagnosis. [employer] XR CHEST PORTABLEon 10-07-19 1. No definite acute cardiopulmonary disease; low lung volumes typical of expiratory phase respiration. Follow-up full inspiration PA and lateral chest may be useful for better characterization of pulmonary findings. 2. Pulmonary sequela typical of that seen with smoking. 3. Wires and cardiac leads overlying the chest could obscure an underlying finding. [facility] EXAMINATION: ONE XRAY VIEW OF THE CHEST 10/06/2021 8:01 pm COMPARISON: Chest 06/06/2021 HISTORY: Chest pain FINDINGS: Calcific atherosclerotic disease aorta. The cardiomediastinal and hilar silhouettes appear otherwise unremarkable. Chronic appearing coarse interstitial densities predominate perihilar regions and lung bases. Low lung volumes resultant vascular crowding and underaeration parahilar regions and lower lungs. The lungs appear otherwise clear. No pleural effusion evident. No pneumothorax is seen. No acute osseous abnormality is identified. Wires and cardiac leads overlying the chest could obscure an underlying finding. [facility] Rickey Kwan MD - 10/06/2021 EXAMINATION: ONE XRAY VIEW OF THE CHEST 10/06/2021 8:01 pm COMPARISON: Chest 06/06/2021 HISTORY: Chest pain FINDINGS: Calcific atherosclerotic disease aorta. The cardiomediastinal and hilar silhouettes appear otherwise unremarkable. Chronic appearing coarse interstitial densities predominate perihilar regions and lung bases. Low lung volumes resultant vascular crowding and underaeration parahilar regions and lower lungs. The lungs appear otherwise clear. No pleural effusion evident. No pneumothorax is seen. No acute osseous abnormality is identified. Wires and cardiac leads overlying the chest could obscure an underlying finding. IMPRESSION: 1. No definite acute cardiopulmonary disease; low lung volumes typical of expiratory phase respiration. Follow-up full inspiration PA and lateral chest may be useful for better characterization of pulmonary findings. 2. Pulmonary sequela typical of that seen with smoking. 3. Wires and cardiac leads overlying the chest could obscure an underlying finding. [employer] Work Phone: Radiology Study observation (narrative) [employer] [facility] Work Phone: XR CHEST PORTABLEOrdered By: Rickey Kwan on 10-06-2021 [employer] Work Phone: COVID-19on 08-19-2021 SARS-CoV-2 (COVID-19) RNA FAUSTINA+probe Ql (Unsp spec) [employer] SARS-CoV-2 (COVID-19) RNA FAUSTINA+probe Ql (Unsp spec) Not detected Not Detected [employer] Comment on above: The specimen is NEGATIVE for SARS-CoV-2, the novel coronavirus associated with COVID-19. A negative result does not rule out COVID-19. Pedro SARS-CoV-2 for use on the Pedro [employer] is a real-time RT-PCR test intended for the qualitative detection of nucleic acids from SARS-CoV-2 in clinician-collected nasal, nasopharyngeal, and oropharyngeal swab specimens from individuals who meet COVID-19 clinical and/or epidemiological criteria. Pedro SARS-CoV-2 is for use only under Emergency Use Authorization (EUA) in laboratories certified under Clinical Laboratory Improvement Amendments of 1988 (CLIA), 42 U.S.C. 263a, that meet requirements to perform high or moderate complexity tests. An individual without symptoms of COVID-19 and who is not shedding SARS-CoV-2 virus would expect to have a negative (not detected) result in this assay. Fact sheet for Healthcare Providers: https://www.fda.gov/media/671819/download Fact sheet for Patients: https://www.fda.gov/media/586267/download METHODOLOGY: RT-PCR Source .NASOPHARYNGEAL SWAB [facility] Culture, Urineon 08-15-2021 Bacteria identified Cx Nom (U) NO SIGNIFICANT GROWTH [facility] Special Requests NOT REPORTED [facility] Specimen Description .CLEAN CATCH URINE [facility] CBC Auto Differentialon 07-20 Absolute Eos # 0.[address] [facility] Absolute Immature Granulocyte 0.05 [facility] Absolute Lymph # 3.01 [facility] alth Absolute [place] # 0.74 [facility] lth Basophils (Bld) [#/Vol] 0.06 10*3/uL [facility] Basophils/100 WBC (Bld) 1 % 0 - 2 % [facility] Differential Type NOT REPORTED [facility] Eosinophils/100 WBC (Bld) 1 % 1 - 4 % [facility] Hematocrit (Bld) [Volume fraction] 39.4 % 36.3 - 47.1 % [facility] Hemoglobin.gastrointest inal spec 1 Ql (Stl) 13.2 g/dL 11.9 - 15.1 g/dL [facility] Immature granulocytes/100 WBC (Bld) 0 % 0 [facility] Interpretation and review of laboratory results Abnormal [facility] Lymphocytes/100 WBC (Bld) 26 % 24 - 43 % [facility] MCH (RBC) [Entitic mass] 30.1 pg 25.2 - 33.5 pg [facility] MCHC (RBC) [Mass/Vol] 33.5 g/dL 28.4 - 34.8 g/dL [facility] MCV (RBC) [Entitic vol] 89.7 fL 82.6 - 102.9 fL [facility] Monocytes/100 WBC (Bld) 6 % 3 - 12 % [facility] Imagiin. NRBC Automated 0.0 0.0 per 100 WBC [facility] Platelet distribution width (Bld) [Ratio] 11.9 % 11.8 - 14.4 % [facility] Platelet Estimate NOT REPORTED [facility] Platelet mean volume (Bld) [Entitic vol] 9.7 fL 8.1 - 13.5 fL [facility] Platelets (Bld) [#/Vol] 360 10*3/uL [facility] RBC (Bld) [#/Vol] 4.39 10*6/uL 3.95 - 5.11 m/uL [facility] RBC (Bld) [#/Vol] NOT REPORTED [facility] Segmented neutrophils/100 WBC (Bld) 66 % High 36 - 65 % [facility] Segs Absolute 7.55 [facility] WBC (Bld) [#/Vol] 11.5 10*3/uL High [facility] WBC (Bld) [#/Vol] NOT REPORTED [facility] TYPE AND SCREENon 08-14-2021 ABO/Rh Positive [facility] Arm Band Number [id number] [facility] lth Expiration Date 08/21/2021,2359 [facility] VL DUP UPPER EXTREMITY VENOU S RIGHTon 07-08-2021 Jarred Gómez MD - 07/08/2021 [facility] Vascular Upper Extremities Veins Procedure Patient Name ADRIÁN Date of Study 07/08/2021 MIKE N Date of 1975 Gender Female Age 45 year(s) Race Room Number 09 Corporate ID [id number] # Patient Acct [id number] # MR # [id number] Manufacturing Applications Engineer Maggie Bowman Kelly, RVT Interpreting Physician Jarred Gómez MD Referring Referring Physician Nurse Practitioner Additional Comments Results faxed to ER 07/08/2021 @3853. Procedure Type of Study: Veins: Upper Extremities Veins, Venous Scan Upper Right. Patient Status:ER. Technical Quality:Adequate visualization. Comments:INDICATIONS: S/P cath, rule out DVT Simultaneous real time imaging utilizing B-Mode, color doppler and spectral waveform analysis was performed on the right upper extremity for venous examination of the deep and superficial systems. Conclusions Summary No evidence of superficial or deep venous thrombosis in the right upper extremity. Signature Allergies - Allergy:Cephalosporins(D rug). Velocities are measured in cm/s ; Diameters are measured in cm Right UE Vein Measurements 2D Measurements + + + +------- --- + !Location !Visualized!Compressibil ity!Thrombosis! + + + +------- --- + !Prox IJV !Yes !Yes !None ! + + + +------- --- + !Dist IJV !Yes !Yes !None ! + + + +------- --- + !Prox SCV !Yes !Yes !None ! + + + +------- --- + !Dist SCV !Yes !Yes !None ! + + + +------- --- + !Prox Axillary !Yes !Yes !None ! + + + +------- --- + !Dist Axillary !Yes !Yes !None ! + + + +------- --- + !Prox Brachial !Yes !Yes !None ! + + + +------- --- + !Dist Brachial !Yes !Yes !None ! + + + +------- --- + !Prox Radial !Yes !Yes !None ! + + + +------- --- + !Dist Radial !Yes !Yes !None ! + + + +------- --- + !Prox Ulnar !Yes !Yes !None ! + + + +------- --- + !Dist Ulnar !Yes !Yes !None ! + + + +------- --- + !Basilic at UA !Yes !Yes !None ! + + + +------- --- + !Basilic at AF !Yes !Yes !None ! + + + +------- --- + !Basilic at LA !Yes !Yes !None ! + + + +------- --- + !Cephalic at UA !Yes !Yes !None ! + + + +------- --- + !Cephalic at AF !Yes !Yes !None ! + + + +------- --- + !Cephalic at LA !Yes !Yes !None ! + + + +------- --- + Doppler Measurements + --+ --+ --- + !Location !Signal !Reflux ! + --+ --+ --- + !IJV !Phasic ! ! + --+ --+ --- + !SCV !Phasic ! ! + --+ --+ --- + !Axillary !Phasic ! ! + --+ --+ --- + !Brachial !Phasic ! ! + --+ --+ --- + [facility]ael[facility] Work Phone: Radiology Study observation (narrative) [employer]aela [employer] [facility] Work Phone: VL DUP UPPER EXTREMITY VENOU S RIGHTOrdered By: Jarred Gómez on 07-08-2021 [employer] Work Phone: Catheterization and angiogra phy procedure details panelon 06-19-2021 Cardiac Diagnostic Report Demographics Patient ADRIÁN Bee Date of Study 06/19/2021 Name Date of 1975 Gender Female Age 45 year(s) Race Room [id number]^MICHAELGREGORY Height: 64 inch, 162.56 cm Number Corporate [id number] Weight: 183 pounds, 83 kg ID # Patient [id number] BSA: 1.88 m^2 BMI: 31.41 Acct # kg/m^2 MR # [id number] Performing Physician Ronan Rodriguez Referring Physician # Assisting Physician Additional Comments ASA & Mallampati documented in Epic by Physician. H&P reviewed and patient examined by performing physician prior to the procedure on 06/19/2021 at 1433 No changes noted. If changes, see note below. ASA Classification II / Mallampati 2 : per Physician. Patient medications reviewed by Physician prior to procedure. Procedure Procedure Type: Diagnostic procedure: Lt Heart, Coronary Angio, LV pressure Complications: - No complication Conclusions Procedure Summary Severe single vessel disease involving a fairly small (<2 mm) ostial D1 branch of the LAD coronary artery as well as a 90% ostial stenosis in a small septal branch of the LAD. Both arteries are likely unable to be stented due to the size of the vessel. Normal left ventricular end diastolic pressure. (LVEDP). Recommendations Proceed with aggressive risk factor modification including aspirin, beta christos, CCB, long acting nitroglycerin and/or statin if clinically indicated. Signature Angiographic Findings Cardiac Arteries and Lesion Findings LMCA: Normal 0% stenosis. LAD: Lesion on 1st Diag: Ostial.70% stenosis. LCx: Lesion on Prox CX: Distal subsection.40% stenosis. RCA: Mild irregularities 10-20%. Coronary Tree Dominance: Left LV function assessed as:Normal. Ejection Fraction + +--- ---+ !Method !EF% ! + +--- ---+ !Echocardiography !60 ! + +--- ---+ Ventriculography Findings: Normal left ventricular end diastolic pressure (LVEDP) with no significant aortic valve gradient seen on pull-back across the aortic valve. Procedure Data Procedure Start Time: 06/19/2021 14:40. Procedure End Time: 06/19/2021 14:59. The procedure was explained in detail to the patient. Risks, complications and alternative treatments were reviewed. Written consent was obtained. Diagnostic Cath Status: Elective Entry Locations - Retrograde Percutaneous access was performed through the Right Radial artery. A 6 Fr sheath was inserted. Hemostasis was successfully obtained using Pressure Dressing. Procedure Medications: - Lidocaine HCl 1% 10mg/ml S.Q. 3 ml. - Versed I.V. 1 mg. - Fentanyl I.V. 25 mcg. - Versed I.V. 1 mg. - Nitroglycerin 100 mcg. - Heparin I.V. bolus 5000 units. Catheters and Wires: - 6 Fr. Radial TIG 4.0 was used for Left coronary angiography. - 6 Fr. Radial TIG 4.0 was used for Right coronary angiography. - 6F Catheter Straight Pigtail was used for LV Pressure. Contrast Material: - Isovue 65362 ml Fluoroscopy Time: Diagnostic: 2:07 minutes. Total: 2:07 minutes. Estimated Blood Loss: 5 ml. Medical History Performed Procedures and Imaging Results - Stress testing with SPECT MPIwas performed. Results were: Positive. Allergies - Cephalosporins. Risk Factors The patient risk factors include:cerebrovascular disease, physical activity, treated hypercholesterolemia, treated hypertension, diabetes mellitus, chronic lung disease, last creatinine: 0.6 mg/dl, creatinine clearance: 155.14 ml/min, dyslipidemia and former tobacco use. Admission Data Admission Date: 06/19/2021 Admission Status: Outpatient. Pre Admission Medications + +-- ----+ +----- -----+ +------- ---+ !Medication !Dosage!Times Per Day!Start date!Stop date !Comments ! + +-- ----+ +----- -----+ +------- ---+ !Clopidogrel (Plavix)!75 mg ! ! ! ! ! + +-- ----+ +----- -----+ +------- ---+ (more content not included)... [facility] Ronan Rodriguez MD - 06/19/2021 Cardiac Diagnostic Report Demographics Patient ADRIÁN Bee Date of Study 06/19/2021 Name Date of 1975 Gender Female Age 45 year(s) Race Room [id number]^DELONTE Height: 64 inch, 162.56 cm Number Corporate [id number] Weight: 183 pounds, 83 kg ID # Patient [id number] BSA: 1.88 m^2 BMI: 31.41 Acct # kg/m^2 MR # [id number] Performing Physician Ronan Rodriguez Referring Physician # Assisting Physician Additional Comments ASA & Mallampati documented in Epic by Physician. H&P reviewed and patient examined by performing physician prior to the procedure on 06/19/2021 at 1433 No changes noted. If changes, see note below. ASA Classification II / Mallampati 2 : per Physician. Patient medications reviewed by Physician prior to procedure. Procedure Procedure Type: Diagnostic procedure: Lt Heart, Coronary Angio, LV pressure Complications: - No complication Conclusions Procedure Summary Severe single vessel disease involving a fairly small (<2 mm) ostial D1 branch of the LAD coronary artery as well as a 90% ostial stenosis in a small septal branch of the LAD. Both arteries are likely unable to be stented due to the size of the vessel. Normal left ventricular end diastolic pressure. (LVEDP). Recommendations Proceed with aggressive risk factor modification including aspirin, beta christos, CCB, long acting nitroglycerin and/or statin if clinically indicated. Signature Angiographic Findings Cardiac Arteries and Lesion Findings LMCA: Normal 0% stenosis. LAD: Lesion on 1st Diag: Ostial.70% stenosis. LCx: Lesion on Prox CX: Distal subsection.40% stenosis. RCA: Mild irregularities 10-20%. Coronary Tree Dominance: Left LV function assessed as:Normal. Ejection Fraction + +--- --- + !Method !EF% ! + +--- --- + !Echocardiography !60 ! + +--- --- + Ventriculography Findings: Normal left ventricular end diastolic pressure (LVEDP) with no significant aortic valve gradient seen on pull-back across the aortic valve. Procedure Data Procedure Start Time: 06/19/2021 14:40. Procedure End Time: 06/19/2021 14:59. The procedure was explained in detail to the patient. Risks, complications and alternative treatments were reviewed. Written consent was obtained. Diagnostic Cath Status: Elective Entry Locations - Retrograde Percutaneous access was performed through the Right Radial artery. A 6 Fr sheath was inserted. Hemostasis was successfully obtained using Pressure Dressing. Procedure Medications: - Lidocaine HCl 1% 10mg/ml S.Q. 3 ml. - Versed I.V. 1 mg. - Fentanyl I.V. 25 mcg. - Versed I.V. 1 mg. - Nitroglycerin 100 mcg. - Heparin I.V. bolus 5000 units. Catheters and Wires: - 6 Fr. Radial TIG 4.0 was used for Left coronary angiography. - 6 Fr. Radial TIG 4.0 was used for Right coronary angiography. - 6F Catheter Straight Pigtail was used for LV Pressure. Contrast Material: - Isovue 97849 ml Fluoroscopy Time: Diagnostic: 2:07 minutes. Total: 2:07 minutes. Estimated Blood Loss: 5 ml. Medical History Performed Procedures and Imaging Results - Stress testing with SPECT MPIwas performed. Results were: Positive. Allergies - Cephalosporins. Risk Factors The patient risk factors include:cerebrovascular disease, physical activity, treated hypercholesterolemia, treated hypertension, diabetes mellitus, chronic lung disease, last creatinine: 0.6 mg/dl, creatinine clearance: 155.14 ml/min, dyslipidemia and former tobacco use. Admission Data Admission Date: 06/19/2021 Admission Status: Outpatient. Pre Admission Medications + +-- ----+ +----- -----+ +------- --- + !Medication !Dosage!Times Per Day!Start date!Stop date !Comments ! + +-- ----+ +----- -----+ +------- --- + !Clopidogrel (Plavix)!75 mg ! ! ! ! ! 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 Hemodynamics Condition: Baseline Room Air Estimated: 179.81Heart Rate: 59 bpm Pressure +-----+ --- + !Site !Pressure ! +-----+ -------- (more content not included)... [employer] Work Phone: [employer] Work Phone: Catheterization and angiogra phy procedure details panelOrdered By: Unknown Result on 06-19-2021 [employer] Basic Metabolic Panelon 05-19 Anion gap [Moles/Vol] 10 mmol/L 9 - 17 mmol/L [employer] Calcium [Mass/Vol] 9.1 mg/dL 8.6 - 10. 4 mg/dL [employer] Chloride [Moles/Vol] 104 mmol/L 98 - 10 7 mmol/L [employer] CO2 [Moles/Vol] 25 mmol/L 20 - 31 mmol/L [employer] Creatinine [Mass/Vol] 0.65 mg/dL 0.50 - 0.90 mg/dL [employer] GFR >60 >60 mL/min [facility] GFR Non- >60 >60 mL/min [facility] Glucose [Mass/Vol] 94 mg/dL 70 - 99 mg/dL [employer] Potassium [Moles/Vol] 4.0 mmol/L 3.7 - 5.3 mmol/L [employer] Sodium [Moles/Vol] 139 mmol/L 135 - 144 mmol/L [employer] Urea nitrogen (BldV) [Mass/Vol] 8 mg/dL 6 - 20 mg/dL [employer] Urea nitrogen/Creatinine (Bld) [Mass ratio] 12 [employer] [facility] CBC Auto Differentialon 05-19 Absolute Eos # 0.08 [facility] th Absolute Immature Granulocyte <0.03 [facility] Absolute Lymph # 1.74 [facility] He alth Absolute [place] # 0.38 [facility] Basophils (Bld) [#/Vol] 0.05 10*3/uL [employer] Basophils/100 WBC (Bld) 1 % 0 - 2 % M erc Imagiin. Differential Type NOT REPORTED [facility] Imagiin. Eosinophils/100 WBC (Bld) 1 % 1 - 4 % [facility] Hematocrit (Bld) [Volume fraction] 37.4 % 36.3 - 47.1 % [facility] Hemoglobin.gastrointest inal spec 1 Ql (Stl) 12.4 g/dL 11.9 - 15.1 g/dL [facility] Immature granulocytes/100 WBC (Bld) 0 % 0 [facility] Lymphocytes/100 WBC (Bld) 29 % 24 - 43 % [facility] MCH (RBC) [Entitic mass] 29.8 pg 25.2 - 33.5 pg [facility] MCHC (RBC) [Mass/Vol] 33.2 g/dL 28.4 - 34.8 g/dL [facility] MCV (RBC) [Entitic vol] 89.9 fL 82.6 - 102.9 fL [facility] Monocytes/100 WBC (Bld) 6 % 3 - 12 % M [facility] Imagiin. NRBC Automated 0.0 0.0 per 100 WBC [facility] Platelet distribution width (Bld) [Ratio] 11.9 % 11.8 - 14.4 % [facility] Platelet Estimate NOT REPORTED [facility] Platelet mean volume (Bld) [Entitic vol] 9.4 fL 8.1 - 13.5 fL [facility] Platelets (Bld) [#/Vol] 274 10*3/uL [facility] RBC (Bld) [#/Vol] 4.16 10*6/uL 3.95 - 5.11 m/uL [facility] RBC (Bld) [#/Vol] NOT REPORTED [facility] Segmented neutrophils/100 WBC (Bld) 63 % 36 - 65 % [facility] Segs Absolute 3.76 [facility] WBC (Bld) [#/Vol] 6.0 10*3/uL [facility] WBC (Bld) [#/Vol] NOT REPORTED [facility] - Chemistry and C hemistry - challengeon 06-06-2021 GFR/1.73 sq M.predicted MDRD (S/P/Bld) [Vol rate/Area] [facility] Comment on above: Average GFR for 40-4 9 years old: 99 mL/min/1.73sq m Chronic Kidney Disease: <60 mL/min/1.73sq m Kidney failure: <15 mL/min/1.73sq m eGFR calculated using average adult body mass. Additional eGFR calculator available at: http://www.[employer]/multiple_crcl_2012.htm Stage 1: Some kidney damage normal GFR Stage 2: Mild kidney damage GFR 60-89 Stage 3: Moderate kidney damage GFR 30-59 Stage 4: Severe kidney damage GFR 15-29 Stage 5: Severe kidney damage GFR <15 ESRD - chronic treatment by dialysis or transplant Troponinon 06-06-2021 Troponin Interp NOT REPORTED [facility] [employer] Troponin T NOT REPORTED <0.03 ng/mL [employer] Troponin, High Sensitivity <6 0 - 14 ng/L [employer] Comment on above: High Sensitivity Troponin values cannot be compared with other Troponin methodologies. Patients with high levels of Biotin oral intake (i.e >5mg/day) may have falsely decreased Troponin levels. Samples collected within 8 hours of biotin intake may require additional information for diagnosis. [employer] Troponin Interp NOT REPORTED [employer] Troponin T NOT REPORTED <0.03 ng/mL [employer] Troponin, High Sensitivity <6 0 - 14 ng/L [employer] Comment on above: High Sensitivity Troponin values cannot be compared with other Troponin methodologies. Patients with high levels of Biotin oral intake (i.e >5mg/day) may have falsely decreased Troponin levels. Samples collected within 8 hours of biotin intake may require additional information for diagnosis. [employer] XR CHEST PORTABLEon 06-06-20 21 No acute process. [facility] EXAMINATION: ONE XRAY VIEW OF THE CHEST 06/06/2021 10:04 am COMPARISON: June 17, 2020 HISTORY: ORDERING SYSTEM PROVIDED HISTORY: dizziness TECHNOLOGIST PROVIDED HISTORY: dizziness FINDINGS: The lungs are without acute focal process. There is no effusion or pneumothorax. The cardiomediastinal silhouette is without acute process. The osseous structures are without acute process. [facility] Sal Mena DO - 06/06/2021 EXAMINATION: ONE XRAY VIEW OF THE CHEST 06/06/2021 10:04 am COMPARISON: June 17, 2020 HISTORY: ORDERING SYSTEM PROVIDED HISTORY: dizziness TECHNOLOGIST PROVIDED HISTORY: dizziness FINDINGS: The lungs are without acute focal process. There is no effusion or pneumothorax. The cardiomediastinal silhouette is without acute process. The osseous structures are without acute process. IMPRESSION: No acute process. [employer] Phone: Radiology Study observation (narrative) Mikaela [employer] Phone: XR CHEST PORTABLEOrdered By: Sal Mena on 06-06-2021 [employer] Phone: XR SHOULDER LEFT (MIN 2 VIEW S)on 06-06-2021 No acute findings. [facility] EXAMINATION: XRAY VIEWS OF THE LEFT SHOULDER 06/06/2021 11:10 am COMPARISON: None. HISTORY: ORDERING SYSTEM PROVIDED HISTORY: pain TECHNOLOGIST PROVIDED HISTORY: pain FINDINGS: No fracture, dislocation, or suspicious osseous lesion. [facility] Alvino Edgar P - 06/06/2021 EXAMINATION: XRAY VIEWS OF THE LEFT SHOULDER 06/06/2021 11:10 am COMPARISON: None. HISTORY: ORDERING SYSTEM PROVIDED HISTORY: pain TECHNOLOGIST PROVIDED HISTORY: pain FINDINGS: No fracture, dislocation, or suspicious osseous lesion. IMPRESSION: No acute findings. [employer] Phone: Radiology Study observation (narrative) Mikaela [employer] Phone: XR SHOULDER LEFT (MIN 2 VIEW S)Ordered By: Alvino Edgar on 06-06-2021 [employer] Phone: CT ABDOMEN PELVIS WO CONTRAS T Additional Contrast? NoneOrdered By: Ruiz Romero on 05-22-2021 Negative nephrolithi asis or uropathy. No acute inflammatory process or bowel obstruction. [employer] Phone: EXAMINATION: CT OF Eliu DAN ABDOMEN AND PELVIS WITHOUT CONTRAST 05/22/2021 6:22 pm TECHNIQUE: CT of the abdomen and pelvis was performed without the administration of intravenous contrast. Multiplanar reformatted images are provided for review. Dose modulation, iterative reconstruction, and/or weight based adjustment of the mA/kV was utilized to reduce the radiation dose to as low as reasonably achievable. COMPARISON: 08/28/2020 and 01/01/2021 HISTORY: ORDERING SYSTEM PROVIDED HISTORY: eval for right side flank pain rad to groinfor stone or obvious spine TECHNOLOGIST PROVIDED HISTORY: eval for right side flank pain rad to groinfor stone or obvious spine Decision Support Exception - unselect if not a suspected or confirmed emergency medical condition->Emergency Medical Condition (MA) Is the patient ?->No FINDINGS: Lower Chest: Lung bases are clear small pericardial effusion. Organs: Noncontrast of the liver, spleen, adrenal glands, kidneys, pancreas unremarkable. Gallbladder is absent. GI/Bowel: Mild retained stool. No bowel obstruction. No CT findings acute appendicitis. No pericecal inflammatory change. Colonic diverticulosis noted. Pelvis: No suspicious adnexal mass. Bladder is collapsed. Previous hysterectomy. Peritoneum/Retroperitone um: Aortic vascular calcification. No free air or free fluid. Bones/Soft Tissues: Evidence of posterior changes L3 through S1 status multilevel discectomy and fusion. Pedicle screws at L5-S1. [employer] Phone: [place], pn Incoming Radiant Results From [employer] - 05/22/2021 6:45 PM EDT EXAMINATION: CT OF THE ABDOMEN AND PELVIS WITHOUT CONTRAST 05/22/2021 6:22 pm TECHNIQUE: CT of the abdomen and pelvis was performed without the administration of intravenous contrast. Multiplanar reformatted images are provided for review. Dose modulation, iterative reconstruction, and/or weight based adjustment of the mA/kV was utilized to reduce the radiation dose to as low as reasonably achievable. COMPARISON: 08/28/2020 and 01/01/2021 HISTORY: ORDERING SYSTEM PROVIDED HISTORY: eval for right side flank pain rad to groinfor stone or obvious spine TECHNOLOGIST PROVIDED HISTORY: eval for right side flank pain rad to groinfor stone or obvious spine Decision Support Exception - unselect if not a suspected or confirmed emergency medical condition->Emergency Medical Condition (MA) Is the patient ?->No FINDINGS: Lower Chest: Lung bases are clear small pericardial effusion. Organs: Noncontrast of the liver, spleen, adrenal glands, kidneys, pancreas unremarkable. Gallbladder is absent. GI/Bowel: Mild retained stool. No bowel obstruction. No CT findings acute appendicitis. No pericecal inflammatory change. Colonic diverticulosis noted. Pelvis: No suspicious adnexal mass. Bladder is collapsed. Previous hysterectomy. Peritoneum/Retroperitone um: Aortic vascular calcification. No free air or free fluid. Bones/Soft Tissues: Evidence of posterior changes L3 through S1 status multilevel discectomy and fusion. Pedicle screws at L5-S1. IMPRESSION: Negative nephrolithiasis or uropathy. No acute inflammatory process or bowel obstruction. [employer] Work Phone: [facility] [employer] Work Phone: Microscopic UrinalysisOrdere d By: Ruiz Romero on 05-22-2021 - [facility] [employer] Work Phone: Amorphous, UA NOT REPORTED None [facility] Work Phone: Bacteria, UA NOT REPORTED None [facility] Work Phone: Casts UA NOT REPORTED /LPF [facility] [employer] Work Phone: Crystals, UA NOT REPORTED None /HPF [facility] Work Phone: Epithelial Cells UA 0 TO 2 [facility] [employer] Work Phone: Mucus, UA NOT REPORTED None [facility] [employer] Work Phone: Other Observations UA NOT REPORTED NOT REQ. M [facility] [employer] Work Phone: RBC, UA None [facility] [employer] Work Phone: Renal Epithelial, UA NOT REPORTED 0 /HPF [facility] [employer] Work Phone: Trichomonas, UA NOT REPORTED None [facility] [employer] Work Phone: WBC, UA None [facility] [employer] Work Phone: Yeast, UA NOT REPORTED None [facility] [employer] Work Phone: [facility] [employer] Work Phone: Urinalysis Reflex to Culture Ordered By: Ruiz Romero on 05-22-2021 Bilirubin Urine Negative NEGATIVE [facility] Work Phone: Color, UA Yellow Yellow [facility] [employer] Work Phone: Glucose, Ur Negative NEGATIVE [facility] [employer] Work Phone: Interpretation and review of laboratory results Abnormal [facility] [employer] Work Phone: Ketones Ql (U) Negative NEGATIVE [facility] Work Phone: Leukocyte esterase Test strip Ql (U) Negative NEGATIVE [facility] [employer] Work Phone: Nitrite, Urine Negative NEGATIVE [facility] Work Phone: pH, UA 6.5 [facility] [employer] Work Phone: Protein, UA Negative NEGATIVE [facility] [employer] Work Phone: Specific [place], UA 1.010 [facility] [employer] Work Phone: Turbidity UA Clear Clear [facility] [employer] Work Phone: Urinalysis Comments NOT REPORTED [facility] [employer] Work Phone: Urine Hgb TRACE Abnormal NEGATIVE [facility] [employer] Work Phone: Urobilinogen, Urine Normal Normal [facility] [employer] Work Phone: [facility] [employer] Work Phone: Laboratory - Microbiology an d Antimicrobial susceptibilityOrdered By: Ena Fung on 05-08-2021 SARS-CoV-2 (COVID-19) RNA FAUSTINA+probe Ql (Resp) Not detected (Not Detected ) [facility] Work Phone: Comment on above: Note: This nucleic a deepti amplification test was developed and itsperformance characteristics determined by [facility]. Nucleic acid amplification tests include RT-PCR and TMA. This test has not been FDA cleared orapproved. This test has been authorized by FDA under anEmergency Use Authorization (EUA). This test is onlyauthorized for the duration of time the declaration thatcircumstances exist justifying the authorization of theemergency use of in vitro diagnostic tests for detection [id number] virus and/or diagnosis of COVID-19 infectionunder section 564(b)(1) of the Act, 21 U.S.C. 360bbb-3(b)(1), unless the authorization is terminated or revokedsooner.When diagnostic testing is negative, the possibility of afalse negative result should be considered in the contextof a patient's recent exposures and the presence ofclinical signs and symptoms consistent with COVID-19. Anindividual without symptoms of COVID-19 and who is notshedding SARS-CoV-2 virus would expect to have a negative(not detected) result in this assay. SARS-CoV-2 (COVID-19) RNA FAUSTINA+probe Ql (Unsp spec) Performed [facility] Work Phone: Laboratory - Microbiology an d Antimicrobial susceptibilityOrdered By: Veronica Renteria on 03-20-2021 SARS-CoV-2 (COVID-19) RNA FAUSTINA+probe Ql (Resp) Not detected (Not Detected ) [facility] Work Phone: Comment on above: Note: This nucleic a deepti amplification test was developed and itsperformance characteristics determined by [facility]. Nucleic acid amplification tests include RT-PCR and TMA. This test has not been FDA cleared orapproved. This test has been authorized by FDA under anEmergency Use Authorization (EUA). This test is onlyauthorized for the duration of time the declaration thatcircumstances exist justifying the authorization of theemergency use of in vitro diagnostic tests for detection [id number] virus and/or diagnosis of COVID-19 infectionunder section 564(b)(1) of the Act, 21 U.S.C. 360bbb-3(b)(1), unless the authorization is terminated or revokedsooner.When diagnostic testing is negative, the possibility of afalse negative result should be considered in the contextof a patient's recent exposures and the presence ofclinical signs and symptoms consistent with COVID-19. Anindividual without symptoms of COVID-19 and who is notshedding SARS-CoV-2 virus would expect to have a negative(not detected) result in this assay. No Panel InformationOrdered By: Antony Borges on 01-29-2021 Mild lateral malleol ar soft tissue swelling. [employer] Phone: EXAMINATION: THREE X RAY VIEWS OF THE RIGHT ANKLE; THREE XRAY VIEWS OF THE RIGHT FOOT 01/29/2021 6:44 am COMPARISON: 02/07/2007. HISTORY: ORDERING SYSTEM PROVIDED HISTORY: Ankle pain. Injury. TECHNOLOGIST PROVIDED HISTORY: Ankle pain. Injury. FINDINGS: No fracture, dislocation or joint abnormality. Bone density is normal. Mild soft tissue swelling over the lateral malleolus. [employer] Phone: [place], Mhpn Incoming Radiant Results From [employer] - 01/29/2021 7:24 AM EDT EXAMINATION: THREE XRAY VIEWS OF THE RIGHT ANKLE; THREE XRAY VIEWS OF THE RIGHT FOOT 01/29/2021 6:44 am COMPARISON: 02/07/2007. HISTORY: ORDERING SYSTEM PROVIDED HISTORY: Ankle pain. Injury. TECHNOLOGIST PROVIDED HISTORY: Ankle pain. Injury. FINDINGS: No fracture, dislocation or joint abnormality. Bone density is normal. Mild soft tissue swelling over the lateral malleolus. IMPRESSION: Mild lateral malleolar soft tissue swelling. [employer] Phone: [employer] Phone: Basic Metabolic PanelOrdered By: Erna Osman on 01-09-2021 Anion gap [Moles/Vol] 9 mmol/L 9 - 17 mmol/L [employer] Phone: Calcium [Mass/Vol] 9.3 mg/dL 8.6 - 10. 4 mg/dL [employer] Phone: Chloride [Moles/Vol] 107 mmol/L 98 - 10 7 mmol/L [employer] Phone: CO2 [Moles/Vol] 24 mmol/L 20 - 31 mmol/L [employer] Phone: Creatinine [Mass/Vol] 0.71 mg/dL 0.50 - 0.90 mg/dL [employer] Phone: GFR >60 >60 mL/min [employer] Phone: GFR Non- >60 >60 mL/min [facility] Phone: Glucose [Mass/Vol] 100 mg/dL High 70 - 99 mg/dL [facility] [employer] Work Phone: Interpretation and review of laboratory results Abnormal [facility] Phone: Potassium [Moles/Vol] 3.7 mmol/L 3.7 - 5.3 mmol/L [facility] [employer] Work Phone: Sodium [Moles/Vol] 140 mmol/L 135 - 144 mmol/L [facility] [employer] Work Phone: Urea nitrogen (BldV) [Mass/Vol] 5 mg/dL Low 6 - 20 mg/dL [facility] Phone: Urea nitrogen/Creatinine (Bld) [Mass ratio] 7 Low [facility] [employer] Work Phone: [facility] [employer] Work Phone: CBC With Auto DifferentialOr dered By: Erna Osman on 01-09-2021 Absolute Eos # 0.10 [facility] HospitalAw[facility] Card [facility] Work Phone: Absolute Immature Granulocyte <0.03 [facility] [employer] Work Phone: Absolute Lymph # 2.48 [facility] Work Phone: Absolute [place] # 0.48 [facility] Work Phone: Basophils (Bld) [#/Vol] 0.04 10*3/uL [facility] [employer] Work Phone: Basophils/100 WBC (Bld) 1 % 0 - 2 % M [facility] [employer] Work Phone: Differential Type NOT REPORTED [facility] [employer] Phone: Eosinophils/100 WBC (Bld) 1 % 1 - 4 % [facility] [employer] Work Phone: Hematocrit (Bld) [Volume fraction] 34.7 % Low 36.3 - 47.1 % [employer] Phone: Hemoglobin.gastrointest inal spec 1 Ql (Stl) 11.4 g/dL Low 11.9 - 15.1 g/dL [employer] Phone: Immature granulocytes/100 WBC (Bld) 0 % 0 [employer] Phone: Interpretation and review of laboratory results Abnormal [employer] Phone: Lymphocytes/100 WBC (Bld) 34 % 24 - 43 % [employer] Phone: MCH (RBC) [Entitic mass] 29.8 pg 25.2 - 33.5 pg [employer] Phone: MCHC (RBC) [Mass/Vol] 32.9 g/dL 28.4 - 34.8 g/dL [employer] Phone: MCV (RBC) [Entitic vol] 90.6 fL 82.6 - 102.9 fL [employer] Phone: Monocytes/100 WBC (Bld) 7 % 3 - 12 % M [employer] Phone: NRBC Automated 0.0 0.0 per 100 WBC [employer] Phone: Platelet distribution width (Bld) [Ratio] 12.2 % 11.8 - 14.4 % [employer] Phone: Platelet Estimate NOT REPORTED [employer] Phone: Platelet mean volume (Bld) [Entitic vol] 10.1 fL 8.1 - 13.5 fL [employer] Phone: Platelets (Bld) [#/Vol] 282 10*3/uL [employer] Phone: RBC (Bld) [#/Vol] 3.83 10*6/uL Low 3.95 - 5.11 m/uL [employer] Phone: RBC (Bld) [#/Vol] NOT REPORTED [employer] Phone: Segmented neutrophils/100 WBC (Bld) 57 % 36 - 65 % [employer] Phone: Segs Absolute 4.24 [employer] Work Phone: WBC (Bld) [#/Vol] 7.4 10*3/uL [employer] Work Phone: WBC (Bld) [#/Vol] NOT REPORTED [employer] Phone: [employer] Phone: Laboratory - Chemistry and C hemistry - challengeOrdered By: Erna Osman on 01-09-2021 GFR/1.73 sq M.predicted MDRD (S/P/Bld) [Vol rate/Area] [employer] Phone: Comment on above: Average GFR for 40-4 9 years old: 99 mL/min/1.73sq m Chronic Kidney Disease: <60 mL/min/1.73sq m Kidney failure: <15 mL/min/1.73sq m eGFR calculated using average adult body mass. Additional eGFR calculator available at: http://www.[employer]/multiple_crcl_2012.htm Stage 1: Some kidney damage normal GFR Stage 2: Mild kidney damage GFR 60-89 Stage 3: Moderate kidney damage GFR 30-59 Stage 4: Severe kidney damage GFR 15-29 Stage 5: Severe kidney damage GFR <15 ESRD - chronic treatment by dialysis or transplant Basic Metabolic Panel w/ Ref golden to MGOrdered By: Alvino Zavala on 01-03-2021 Anion gap [Moles/Vol] 8 mmol/L Low 9 - 17 mmol/L [employer] Phone: Calcium [Mass/Vol] 8.7 mg/dL 8.6 - 10. 4 mg/dL [employer] Phone: Chloride [Moles/Vol] 105 mmol/L 98 - 10 7 mmol/L [employer] Phone: CO2 [Moles/Vol] 27 mmol/L 20 - 31 mmol/L [facility] [employer] Work Phone: Creatinine [Mass/Vol] 0.84 mg/dL 0.50 - 0.90 mg/dL [facility] [employer] Phone: GFR >60 >60 mL/min [facility] [employer] Phone: GFR Non- >60 >60 mL/min [facility] [employer] Work Phone: Glucose [Mass/Vol] 131 mg/dL High 70 - 99 mg/dL [facility] [employer] Work Phone: Interpretation and review of laboratory results Abnormal [facility] Phone: Potassium [Moles/Vol] 3.0 mmol/L Low 3.7 - 5.3 mmol/L [facility] [employer] Phone: Sodium [Moles/Vol] 140 mmol/L 135 - 144 mmol/L [facility] [employer] Work Phone: Urea nitrogen (BldV) [Mass/Vol] 8 mg/dL 6 - 20 mg/dL [facility] [employer] Work Phone: Urea nitrogen/Creatinine (Bld) [Mass ratio] 10 [facility] Phone: [facility] [employer] Work Phone: CBC auto differentialOrdered By: Alvino Zavala on 01-03-2021 Absolute Eos # 0.[address] [facility] Work Phone: Absolute Immature Granulocyte <0.03 [facility] [employer] Work Phone: Absolute Lymph # 2.19 [facility] [employer] Work Phone: Absolute [place] # 0.62 [facility] Work Phone: Basophils (Bld) [#/Vol] 0.04 10*3/uL [facility] [employer] Work Phone: Basophils/100 WBC (Bld) 1 % 0 - 2 % M [employer] Phone: Differential Type NOT REPORTED [employer] Phone: Eosinophils/100 WBC (Bld) 1 % 1 - 4 % [employer] Phone: Hematocrit (Bld) [Volume fraction] 32.6 % Low 36.3 - 47.1 % [employer] Phone: Hemoglobin.gastrointest inal spec 1 Ql (Stl) 11.3 g/dL Low 11.9 - 15.1 g/dL [employer] Phone: Immature granulocytes/100 WBC (Bld) 0 % 0 [employer] Phone: Interpretation and review of laboratory results Abnormal [employer] Phone: Lymphocytes/100 WBC (Bld) 34 % 24 - 43 % [employer] Phone: MCH (RBC) [Entitic mass] 30.1 pg 25.2 - 33.5 pg [employer] Phone: MCHC (RBC) [Mass/Vol] 34.7 g/dL 28.4 - 34.8 g/dL [employer] Phone: MCV (RBC) [Entitic vol] 86.9 fL 82.6 - 102.9 fL [employer] Phone: Monocytes/100 WBC (Bld) 10 % 3 - 12 % M [employer] Work Phone: NRBC Automated 0.0 0.0 per 100 WBC [employer] Phone: Platelet distribution width (Bld) [Ratio] 11.5 % Low 11.8 - 14.4 % [employer] Phone: Platelet Estimate NOT REPORTED [employer] Phone: Platelet mean volume (Bld) [Entitic vol] 10.1 fL 8.1 - 13.5 fL [employer] Phone: Platelets (Bld) [#/Vol] 286 10*3/uL [employer] Phone: RBC (Bld) [#/Vol] 3.75 10*6/uL Low 3.95 - 5.11 m/uL [employer] Phone: RBC (Bld) [#/Vol] NOT REPORTED [employer] Phone: Segmented neutrophils/100 WBC (Bld) 54 % 36 - 65 % [employer] Phone: Segs Absolute 3.45 [employer] Work Phone: WBC (Bld) [#/Vol] 6.4 10*3/uL [employer] Phone: WBC (Bld) [#/Vol] NOT REPORTED [employer] Phone: [employer] Phone: EKG Rhythm StripOrdered By: Unknown Result on 01-03-2021 HR 62 [employer] Phone: [employer] Phone: re-labeled to Sinus Rhythm [employer] Phone: [employer] Phone: re-labeled to Sinus Rhythm [employer] Phone: [employer] Phone: re-labeled to Sinus Rhythm [employer] Phone: [employer] Phone: EsophagogastroduodenoscopyOr dered By: Alvino Zavala on 01-03-2021 No dictation [employer] Phone: [employer] Phone: Laboratory - Chemistry and C hemistry - challengeOrdered By: Alvino Zavala on 01-03-2021 GFR/1.73 sq M.predicted MDRD (S/P/Bld) [Vol rate/Area] [employer] Work Phone: Comment on above: Average GFR for 40-4 9 years old: 99 mL/min/1.73sq m Chronic Kidney Disease: <60 mL/min/1.73sq m Kidney failure: <15 mL/min/1.73sq m eGFR calculated using average adult body mass. Additional eGFR calculator available at: http://www.[employer]/multiple_crcl_2012.htm Stage 1: Some kidney damage normal GFR Stage 2: Mild kidney damage GFR 60-89 Stage 3: Moderate kidney damage GFR 30-59 Stage 4: Severe kidney damage GFR 15-29 Stage 5: Severe kidney damage GFR <15 ESRD - chronic treatment by dialysis or transplant MagnesiumOrdered By: Erna Osman on 01-03-2021 Magnesium [Mass/Vol] 2.3 mg/dL 1.6 - 2 .6 mg/dL [employer] Work Phone: [employer] Work Phone: Occult Blood ScreenOrdered B y: Alvino Basiliorohit on 01-03-2021 Date, Stool #1 01/03/2021 [facility] Work Phone: Date, Stool #2 NOT REPORTED [facility] Work Phone: Date, Stool #3 NOT REPORTED [facility] Work Phone: Hemoglobin.gastrointest inal spec 1 Ql (Stl) Negative NEGATIVE [facility] Work Phone: Hemoglobin.gastrointest inal spec 2 Ql (Stl) NOT REPORTED NEGATIVE [facility] Work Phone: Hemoglobin.gastrointest inal spec 3 Ql (Stl) NOT REPORTED NEGATIVE [facility] Work Phone: Time, Stool #1 1400 [facility] Work Phone: Time, Stool #2 NOT REPORTED [facility] Work Phone: Time, Stool #3 NOT REPORTED [employer] Phone: [employer] Phone: COVID-19, RapidOrdered By: Mignon Zavala on 01-02-2021 SARS-CoV-2 (COVID-19) RNA FAUSTINA+probe Ql (Unsp spec) Not detected Not Detected [employer] Phone: Comment on above: Rapid NAAT: The specimen is NEGATIVE for SARS-CoV-2, the novel coronavirus associated with COVID-19. The ID NOW COVID-19 assay is designed to detect the virus that causes COVID-19 in patients with signs and symptoms of infection who are suspected of COVID-19. An individual without symptoms of COVID-19 and who is not shedding SARS-CoV-2 virus would expect to have a negative (not detected) result in this assay. Negative results should be treated as presumptive and, if inconsistent with clinical signs and symptoms or necessary for patient management, should be tested with an alternative molecular assay. Negative results do not preclude SARS-CoV-2 infection and should not be used as the sole basis for patient management decisions. Fact sheet for Healthcare Providers: https://www.fda.gov/media/455418/download Fact sheet for Patients: https://www.fda.gov/media/727544/download Methodology: Isothermal Nucleic Acid Amplification Specimen Description .NASOPHARYNGEAL SWAB [employer] Phone: [employer] Phone: EKG Rhythm StripOrdered By: Unknown Result on 01-02-2021 re-labeled to Sinus Rhythm ks [employer] Phone: [employer] Phone: PotassiumOrdered By: Janae Parker on 01-02-2021 Interpretation and review of laboratory results Abnormal [employer] Phone: Potassium [Moles/Vol] 2.8 mmol/L Critically low 3.7 - 5.3 mmol/L [employer] Phone: [employer] Phone: CBC auto differentialOrdered By: Olaf Pineda on 01-01-2021 Absolute Eos # 0.05 [facility] Work Phone: Absolute Immature Granulocyte <0.03 [facility] [employer] Work Phone: Absolute Lymph # 2.24 [employer] [facility] Work Phone: Absolute [place] # 0.64 [facility] Work Phone: Basophils (Bld) [#/Vol] 0.04 10*3/uL [employer] Work Phone: Basophils/100 WBC (Bld) 1 % 0 - 2 % M [facility] [employer] Work Phone: Differential Type NOT REPORTED [facility] Phone: Eosinophils/100 WBC (Bld) 1 % 1 - 4 % [facility] Phone: Hematocrit (Bld) [Volume fraction] 32.7 % Low 36.3 - 47.1 % [employer] Work Phone: Hemoglobin.gastrointest inal spec 1 Ql (Stl) 11.6 g/dL Low 11.9 - 15.1 g/dL [employer] Phone: Immature granulocytes/100 WBC (Bld) 0 % 0 [employer] Phone: Interpretation and review of laboratory results Abnormal [employer] Phone: Lymphocytes/100 WBC (Bld) 30 % 24 - 43 % [employer] Work Phone: MCH (RBC) [Entitic mass] 30.1 pg 25.2 - 33.5 pg [employer] Work Phone: MCHC (RBC) [Mass/Vol] 35.5 g/dL High 28.4 - 34.8 g/dL [employer] Phone: MCV (RBC) [Entitic vol] 84.7 fL 82.6 - 102.9 fL [employer] Work Phone: Monocytes/100 WBC (Bld) 9 % 3 - 12 % M [employer] Work Phone: NRBC Automated 0.0 0.0 per 100 WBC [employer] Phone: Platelet distribution width (Bld) [Ratio] 11.4 % Low 11.8 - 14.4 % [employer] Phone: Platelet Estimate NOT REPORTED [employer] Phone: Platelet mean volume (Bld) [Entitic vol] 10.1 fL 8.1 - 13.5 fL [employer] Phone: Platelets (Bld) [#/Vol] 281 10*3/uL [employer] Phone: RBC (Bld) [#/Vol] 3.86 10*6/uL Low 3.95 - 5.11 m/uL [employer] Work Phone: RBC (Bld) [#/Vol] NOT REPORTED [employer] Phone: Segmented neutrophils/100 WBC (Bld) 59 % 36 - 65 % [employer] Phone: Segs Absolute 4[employer]55 [employer] Work Phone: WBC (Bld) [#/Vol] 7.5 10*3/uL [employer] Work Phone: WBC (Bld) [#/Vol] NOT REPORTED [employer] Phone: [employer] Work Phone: Comprehensive Metabolic Pane lOrdered By: Olaf Pineda on 01-01-2021 Albumin [Mass/Vol] 4.7 g/dL 3.5 - 5.2 g/dL [employer] Phone: Albumin/Globulin [Mass ratio] 1.6 {ratio} [employer] Phone: ALP (Bld) [Catalytic activity/Vol] 99 U/L 35 - 104 U/L [employer] Phone: ALT [Catalytic activity/Vol] 21 U/L 5 - 33 U/L [employer] Phone: Anion gap [Moles/Vol] 14 mmol/L 9 - 17 mmol/L [employer] Phone: AST [Catalytic activity/Vol] 19 U/L <32 [employer] Phone: Bilirubin [Mass/Vol] 0.51 mg/dL 0.3 - 1 .2 mg/dL [employer] Phone: Calcium [Mass/Vol] 9.6 mg/dL 8.6 - 10. 4 mg/dL [employer] Phone: Chloride [Moles/Vol] 91 mmol/L Low 98 - 10 7 mmol/L [employer] Phone: CO2 [Moles/Vol] 27 mmol/L 20 - 31 mmol/L [employer] Phone: Creatinine [Mass/Vol] 1.17 mg/dL High 0.50 - 0.90 mg/dL [employer] Phone: Free PSA/Total PSA [Mass fraction] 7.6 g/dL 6.4 - 8.3 g/dL [employer] Phone: GFR >60 >60 mL/min [employer] Phone: GFR Non- 50 mL/min Low >60 [employer] Phone: Glucose [Mass/Vol] 120 mg/dL High 70 - 99 mg/dL [employer] Phone: Interpretation and review of laboratory results Abnormal [employer] Phone: Potassium [Moles/Vol] 2.2 mmol/L Critically low 3.7 - 5.3 mmol/L [employer] Phone: Sodium [Moles/Vol] 132 mmol/L Low 135 - 144 mmol/L [employer] Phone: Urea nitrogen (BldV) [Mass/Vol] 32 mg/dL High 6 - 20 mg/dL [employer] Phone: Urea nitrogen/Creatinine (Bld) [Mass ratio] 27 High [employer] Phone: [employer] Phone: D-dimer, quantitativeOrdered By: Olaf Pineda on 01-01-2021 D-Dimer, Quant <0.27 [employer] Phone: Comment on above: When combined with a low clinical probability, a D dimer value of <0.50 mg/L FEU is considered negative for DVT and PE (negative predictive value of 98%, sensitivity of 97%). If this test is not being used to help rule out DVT and PE, then the following reference range should be utilized: 0.00 - 0.59 mg/L FEU. The D-Dimer assay is intended for use as an aid in the diagnosis of venous thromboembolism (DVT and PE) and the results should be interpreted in conjunction with the patient's medical history, clinical presentation, and other findings. Elevated levels of D-dimer activity can be seen in any state of coagulation activation and is not recommended in patients with therapeutic dose anticoagulant therapy for >24 hours, fibrinolytic therapy within the previous 7 days, trauma or surgery within the previous 4 weeks, disseminated malignancies, aortic aneurysm, sepsis, severe infections, pneumonia, severe skin infections, liver cirrhosis, advanced age, coronary disease, diabetes, and . A very low percentage of patients with DVT may yield D-dimer results below the cutoff of 0.5 mg/L FEU. This is known to be more prevalent in patients with distal DVT. [facility]ostle Phone: Glucose, Whole BloodOrdered By: Olaf Pineda on 01-01-2021 Glucose [Mass/Vol] 86 mg/dL 74 - 100 mg/dL [employer]ost[facility] Phone: Jostle Phone: Laboratory - Chemistry and C hemistry - challengeOrdered By: Olaf Pineda on 01-01-2021 GFR/1.73 sq M.predicted MDRD (S/P/Bld) [Vol rate/Area] [employer]le Phone: Comment on above: Average GFR for 40-4 9 years old: 99 mL/min/1.73sq m Chronic Kidney Disease: <60 mL/min/1.73sq m Kidney failure: <15 mL/min/1.73sq m eGFR calculated using average adult body mass. Additional eGFR calculator available at: http://www.[employer]_crcl_2012.htm Stage 1: Some kidney damage normal GFR Stage 2: Mild kidney damage GFR 60-89 Stage 3: Moderate kidney damage GFR 30-59 Stage 4: Severe kidney damage GFR 15-29 Stage 5: Severe kidney damage GFR <15 ESRD - chronic treatment by dialysis or transplant MagnesiumOrdered By: Olaf Pineda on 01-01-2021 Magnesium [Mass/Vol] 2.1 mg/dL 1.6 - 2 .6 mg/dL Jost[facility] Phone: Jostle Phone: No Panel InformationOrdered By: Olaf Pineda on 01-01-2021 Chest: 1. No evidenc e for acute pulmonary embolism. 2. No evidence for pneumonia. Abdomen pelvis: 1. No acute infective or inflammatory process. 2. No bowel obstruction. 3. Postsurgical changes in lumbar spine with L4-5 and L5-S1 fusion. Jostle Phone: EXAMINATION: CT OF T HE ABDOMEN AND PELVIS WITH CONTRAST; CTA OF THE CHEST 01/01/2021 1:19 pm TECHNIQUE: CT of the abdomen and pelvis was performed with the administration of intravenous contrast. Multiplanar reformatted images are provided for review. Dose modulation, iterative reconstruction, and/or weight based adjustment of the mA/kV was utilized to reduce the radiation dose to as low as reasonably achievable.; CTA of the chest was performed after the administration of intravenous contrast. Multiplanar reformatted images are provided for review. MIP images are provided for review. Dose modulation, iterative reconstruction, and/or weight based adjustment of the mA/kV was utilized to reduce the radiation dose to as low as reasonably achievable. COMPARISON: CT abdomen pelvis 08/28/2020 CT chest 02/25/2017 HISTORY: ORDERING SYSTEM PROVIDED HISTORY: low abd pain - midline with some rectal bleeding TECHNOLOGIST PROVIDED HISTORY: low abd pain - midline with some rectal bleeding Decision Support Exception - unselect if not a suspected or confirmed emergency medical condition->Emergency Medical Condition (MA); ORDERING SYSTEM PROVIDED HISTORY: sob - pain to legs TECHNOLOGIST PROVIDED HISTORY: sob - pain to legs FINDINGS: Chest: Pulmonary Arteries: Pulmonary arteries are adequately opacified for evaluation. No evidence of intraluminal filling defect to suggest pulmonary embolism. Main pulmonary artery is normal in caliber. Mediastinum: The cardiac size is normal. Aorta shows no aneurysm or dissection.. There is no significant mediastinal, hilar or axillary lymphadenopathy. The thyroid gland shows no significant abnormalities. The esophagus shows no significant abnormalities. Lungs/pleura: There is some dependent subsegmental atelectasis along the posterior lower lobes. No focal consolidation. No significant nodules or masses. No pleural effusion or pneumothorax. Central airways unremarkable. Soft Tissues/Bones: No acute bone or soft tissue abnormality. Abdomen/Pelvis: Organs: The liver, spleen, pancreas, kidneys and adrenal glands show no significant abnormalities. Patient has had cholecystectomy GI/Bowel: There is limited evaluation due to absence of oral contrast. The stomach shows no focal lesions. Small bowel loops normal in caliber showing no focal abnormalities. No evidence for appendicitis. Evaluation of the colon shows no acute process. Pelvis: Hysterectomy. Urinary bladder is unremarkable. Left ovary is visualized measuring 2.1 cm.. No suspicious pelvic mass. Peritoneum/Retroperitone um: No free intraperitoneal fluid or significant lymphadenopathy. Vascular structures enhance satisfactorily. Bones/Soft Tissues: Bilateral intrapedicular screws fusing L4-5 and L5-S1. L3-S1 disc space grafts. No acute abnormality of the bones. The superficial soft tissues show no significant abnormalities. [employer] Work Phone: Benoit, Mhpn Incoming Radiant Results From [employer] - 01/01/2021 2:03 PM EDT EXAMINATION: CT OF THE ABDOMEN AND PELVIS WITH CONTRAST; CTA OF THE CHEST 01/01/2021 1:19 pm TECHNIQUE: CT of the abdomen and pelvis was performed with the administration of intravenous contrast. Multiplanar reformatted images are provided for review. Dose modulation, iterative reconstruction, and/or weight based adjustment of the mA/kV was utilized to reduce the radiation dose to as low as reasonably achievable.; CTA of the chest was performed after the administration of intravenous contrast. Multiplanar reformatted images are provided for review. MIP images are provided for review. Dose modulation, iterative reconstruction, and/or weight based adjustment of the mA/kV was utilized to reduce the radiation dose to as low as reasonably achievable. COMPARISON: CT abdomen pelvis 08/28/2020 CT chest 02/25/2017 HISTORY: ORDERING SYSTEM PROVIDED HISTORY: low abd pain - midline with some rectal bleeding TECHNOLOGIST PROVIDED HISTORY: low abd pain - midline with some rectal bleeding Decision Support Exception - unselect if not a suspected or confirmed emergency medical condition->Emergency Medical Condition (MA); ORDERING SYSTEM PROVIDED HISTORY: sob - pain to legs TECHNOLOGIST PROVIDED HISTORY: sob - pain to legs FINDINGS: Chest: Pulmonary Arteries: Pulmonary arteries are adequately opacified for evaluation. No evidence of intraluminal filling defect to suggest pulmonary embolism. Main pulmonary artery is normal in caliber. Mediastinum: The cardiac size is normal. Aorta shows no aneurysm or dissection.. There is no significant mediastinal, hilar or axillary lymphadenopathy. The thyroid gland shows no significant abnormalities. The esophagus shows no significant abnormalities. Lungs/pleura: There is some dependent subsegmental atelectasis along the posterior lower lobes. No focal consolidation. No significant nodules or masses. No pleural effusion or pneumothorax. Central airways unremarkable. Soft Tissues/Bones: No acute bone or soft tissue abnormality. Abdomen/Pelvis: Organs: The liver, spleen, pancreas, kidneys and adrenal glands show no significant abnormalities. Patient has had cholecystectomy GI/Bowel: There is limited evaluation due to absence of oral contrast. The stomach shows no focal lesions. Small bowel loops normal in caliber showing no focal abnormalities. No evidence for appendicitis. Evaluation of the colon shows no acute process. Pelvis: Hysterectomy. Urinary bladder is unremarkable. Left ovary is visualized measuring 2.1 cm.. No suspicious pelvic mass. Peritoneum/Retroperitone um: No free intraperitoneal fluid or significant lymphadenopathy. Vascular structures enhance satisfactorily. Bones/Soft Tissues: Bilateral intrapedicular screws fusing L4-5 and L5-S1. L3-S1 disc space grafts. No acute abnormality of the bones. The superficial soft tissues show no significant abnormalities. IMPRESSION: Chest: 1. No evidence for acute pulmonary embolism. 2. No evidence for pneumonia. Abdomen pelvis: 1. No acute infective or inflammatory process. 2. No bowel obstruction. 3. Postsurgical changes in lumbar spine with L4-5 and L5-S1 fusion. [employer]ost[employer] Phone: Jostle Phone: POCT glucoseOrdered By: Nicanor Schwba on 01-01-2021 Glucose [Mass/Vol] 86 mg/dL [employer] Phone: Interpretation and review of laboratory results Normal Jostle Phone: QC OK? y Jostle Phone: Jostle Phone: TroponinOrdered By: Olaf Pineda on 01-01-2021 Troponin Interp NOT REPORTED [employer] Work Phone: Troponin T NOT REPORTED <0.03 ng/mL [employer] Phone: Troponin, High Sensitivity <6 0 - 14 ng/L [employer] Phone: Comment on above: High Sensitivity Troponin values cannot be compared with other Troponin methodologies. Patients with high levels of Biotin oral intake (i.e >5mg/day) may have falsely decreased Troponin levels. Samples collected within 8 hours of biotin intake may require additional information for diagnosis. [employer]le Phone: VL DUP LOWER EXTREMITY VENOU S BILATERALOrdered By: Olaf Pineda on 01-01-2021 [place], Mhpn Incoming Cardio Results From [facility]/ - 01/01/2021 5:27 PM EDT [facility] Vascular Lower Extremities DVT Study Procedure Patient Name ADRIÁN Date of Study 01/01/2021 MIKE N Date of 1975 Gender Female Age 45 year(s) Race Room Number [address] [facility] ID [id number] # Patient Acct [id number] # MR # [id number] Manufacturing Applications Engineer Crystal Wilhelm RVT Interpreting Physician Aman Haas MD Referring Referring Physician Olaf Pineda Nurse Practitioner Additional Comments Results were given to Dr. Pineda 01/01/2021 @ 5338. Procedure Type of Study: Veins: Lower Extremities DVT Study, Venous Scan Lower Bilateral. Indications for Study:Pain and swelling. Patient Status:ER. Technical Quality:Adequate visualization. Conclusions Summary No evidence of superficial or deep venous thrombosis in both lower extremities. Signature Findings: Right Impression: Left Impression: Common femoral, femoral, deep Common femoral, femoral, deep femoral, popliteal, tibials, femoral, popliteal, tibials, peroneal, and saphenous veins were peroneal, and saphenous veins were evaluated. evaluated. All veins were compressible and with All veins were compressible and with normal doppler responses. normal doppler responses. Allergies - Allergy:Cephalosporins(D rug). Velocities are measured in cm/s ; Diameters are measured in cm Right Lower Extremities DVT Study Measurements Right 2D Measurements + + + +------- --- + !Location !Visualized!Compressibil ity!Thrombosis! + + + +------- --- + !Common Femoral !Yes !Yes !None ! + + + +------- --- + !Prox Femoral !Yes !Yes !None ! + + + +------- --- + !Mid Femoral !Yes !Yes !None ! + + + +------- --- + !Dist Femoral !Yes !Yes !None ! + + + +------- --- + !Deep Femoral !Yes !Yes !None ! + + + +------- --- + !Popliteal !Yes !Yes !None ! + + + +------- --- + !Sapheno Femoral Junction !Yes !Yes !None ! + + + +------- --- + !PTV !Yes !Yes !None ! + + + +------- --- + !Peroneal !Yes !Yes !None ! + + + +------- --- + !Gastroc !Yes !Yes !None ! + + + +------- --- + !GSV Thigh !Yes !Yes !None ! + + + +------- --- + !GSV Knee !Yes !Yes !None ! + + + +------- --- + !GSV Ankle !Yes !Yes !None ! + + + +------- --- + !SSV !Yes !Yes !None ! + + + +------- --- + Right Doppler Measurements + ----+------+------+----- --- + !Location !Signal!Reflux!Reflux (msec) ! + ----+------+------+----- --- + !Common Femoral !Phasic! ! ! + ----+------+------+----- --- + !Prox Femoral !Phasic! ! ! + ----+------+------+----- --- + !Popliteal !Phasic! ! ! + ----+------+------+----- --- + Left Lower Extremities DVT Study Measurements Left 2D Measurements + + + +------- --- + !Location !Visualized!Compressibil ity!Thrombosis! + + + +------- --- + !Common Femoral !Yes !Yes !None ! + + + +------- --- + !Prox Femoral !Yes !Yes !None ! + + + +------- --- + !Mid Femoral !Yes !Yes !None ! + + (more content not included)... [employer]ostle Phone: Jostle Phone: Basic Metabolic Panel w/ Ref golden to MGOrdered By: Santhosh Schwab on 11-22-2020 Anion gap [Moles/Vol] 8 mmol/L Low 9 - 17 mmol/L [employer] Phone: Calcium [Mass/Vol] 9.3 mg/dL 8.6 - 10. 4 mg/dL [employer] Phone: Chloride [Moles/Vol] 102 mmol/L 98 - 10 7 mmol/L [employer] Phone: CO2 [Moles/Vol] 28 mmol/L 20 - 31 mmol/L [employer] Phone: Creatinine [Mass/Vol] 0.64 mg/dL 0.50 - 0.90 mg/dL [employer] Phone: GFR >60 >60 mL/min phorus Phone: GFR Non- >60 >60 mL/min [employer] Work Phone: Glucose [Mass/Vol] 96 mg/dL 70 - 99 mg/dL [employer] Work Phone: Interpretation and review of laboratory results Abnormal [employer] Phone: Potassium [Moles/Vol] 3.2 mmol/L Low 3.7 - 5.3 mmol/L [employer] Work Phone: Sodium [Moles/Vol] 138 mmol/L 135 - 144 mmol/L [employer] Work Phone: Urea nitrogen (BldV) [Mass/Vol] 14 mg/dL 6 - 20 mg/dL [employer] Work Phone: Urea nitrogen/Creatinine (Bld) [Mass ratio] 22 High [employer] Work Phone: CBC Auto DifferentialOrdered By: Santhosh Schwab on 11-22-2020 [employer]os # 0.04 [facility] [facility] Work Phone: Absolute Immature Granulocyte 0.16 [employer] Work Phone: Absolute Lymph # 3.02 [employer] [facility] Work Phone: Absolute [place] # 1.38 High [facility] [facility] Work Phone: Basophils (Bld) [#/Vol] 10*3/uL M [employer] Work Phone: Basophils/100 WBC (Bld) 0 % 0 - 2 % M [employer] Work Phone: Differential Type NOT REPORTED [employer] Work Phone: Eosinophils/100 WBC (Bld) 0 % Low 1 - 4 % [employer] Work Phone: Hematocrit (Bld) [Volume fraction] 38.5 % 36.3 - 47.1 % [employer] Work Phone: Hemoglobin.gastrointest inal spec 1 Ql (Stl) 13.2 g/dL 11.9 - 15.1 g/dL [employer] Phone: Immature granulocytes/100 WBC (Bld) 1 % High 0 [employer] Phone: Interpretation and review of laboratory results Abnormal [employer] Phone: Lymphocytes/100 WBC (Bld) 15 % Low 24 - 43 % [employer] Phone: MCH (RBC) [Entitic mass] 30.7 pg 25.2 - 33.5 pg [employer] Phone: MCHC (RBC) [Mass/Vol] 34.3 g/dL 28.4 - 34.8 g/dL [employer] Phone: MCV (RBC) [Entitic vol] 89.5 fL 82.6 - 102.9 fL [employer] Phone: Monocytes/100 WBC (Bld) 7 % 3 - 12 % M [employer] Phone: NRBC Automated 0.0 0.0 per 100 WBC [employer]le Phone: Platelet distribution width (Bld) [Ratio] 12.2 % 11.8 - 14.4 % [employer] Phone: Platelet Estimate NOT REPORTED [employer] Phone: Platelet mean volume (Bld) [Entitic vol] 9.8 fL 8.1 - 13.5 fL [employer] Phone: Platelets (Bld) [#/Vol] 352 10*3/uL [employer] Phone: RBC (Bld) [#/Vol] 4.30 10*6/uL 3.95 - 5.11 m/uL [employer] Phone: RBC (Bld) [#/Vol] NOT REPORTED [employer] Phone: Segmented neutrophils/100 WBC (Bld) 77 % High 36 - 65 % [employer] Work Phone: Segs Absolute 15.76 High [employer] Work Phone: WBC (Bld) [#/Vol] 20.4 10*3/uL High [employer] Work Phone: WBC (Bld) [#/Vol] NOT REPORTED [facility] Phone: CT SOFT TISSUE NECK W CONTRA STOrdered By: Santhosh Schwab on 11-22-2020 No acute abnormality of the soft tissue structures of the neck. [employer] Phone: EXAMINATION: CT OF T HE NECK SOFT TISSUE WITH CONTRAST 11/22/2020 TECHNIQUE: CT of the neck was performed with the administration of intravenous contrast. Multiplanar reformatted images are provided for review. Dose modulation, iterative reconstruction, and/or weight based adjustment of the mA/kV was utilized to reduce the radiation dose to as low as reasonably achievable. COMPARISON: CTA head and neck performed 10/09/2019. HISTORY: ORDERING SYSTEM PROVIDED HISTORY: Rule out abscess TECHNOLOGIST PROVIDED HISTORY: Rule out abscess Decision Support Exception - unselect if not a suspected or confirmed emergency medical condition->Emergency Medical Condition (MA) FINDINGS: PHARYNX/LARYNX: The palatine tonsils are normal in appearance. The tongue is normal in appearance. The valleculae, epiglottis, aryepiglottic folds and pyriform sinuses appear unremarkable. The true and false vocal cords are normal in appearance. No mass or abscess is seen. SALIVARY GLANDS/THYROID: The parotid and submandibular glands appear unremarkable. The thyroid gland appears unremarkable. LYMPH NODES: No cervical or supraclavicular lymphadenopathy is seen. SOFT TISSUES: No appreciable soft tissue swelling or mass is seen. BRAIN/ORBITS/SINUSES: The visualized portion of the intracranial contents appear unremarkable. The visualized portion of the orbits, paranasal sinuses and mastoid air cells demonstrate no acute abnormality. LUNG APICES/SUPERIOR MEDIASTINUM: No focal consolidation is seen within the visualized lung apices. No superior mediastinal lymphadenopathy or mass. The visualized portion of the trachea appears unremarkable. BONES: No aggressive appearing lytic or blastic bony lesion. [employer]le Phone: [place], Mhpn Incoming Radiant Results From [employer] - 11/22/2020 1:37 PM EDT EXAMINATION: CT OF THE NECK SOFT TISSUE WITH CONTRAST 11/22/2020 TECHNIQUE: CT of the neck was performed with the administration of intravenous contrast. Multiplanar reformatted images are provided for review. Dose modulation, iterative reconstruction, and/or weight based adjustment of the mA/kV was utilized to reduce the radiation dose to as low as reasonably achievable. COMPARISON: CTA head and neck performed 10/09/2019. HISTORY: ORDERING SYSTEM PROVIDED HISTORY: Rule out abscess TECHNOLOGIST PROVIDED HISTORY: Rule out abscess Decision Support Exception - unselect if not a suspected or confirmed emergency medical condition->Emergency Medical Condition (MA) FINDINGS: PHARYNX/LARYNX: The palatine tonsils are normal in appearance. The tongue is normal in appearance. The valleculae, epiglottis, aryepiglottic folds and pyriform sinuses appear unremarkable. The true and false vocal cords are normal in appearance. No mass or abscess is seen. SALIVARY GLANDS/THYROID: The parotid and submandibular glands appear unremarkable. The thyroid gland appears unremarkable. LYMPH NODES: No cervical or supraclavicular lymphadenopathy is seen. SOFT TISSUES: No appreciable soft tissue swelling or mass is seen. BRAIN/ORBITS/SINUSES: The visualized portion of the intracranial contents appear unremarkable. The visualized portion of the orbits, paranasal sinuses and mastoid air cells demonstrate no acute abnormality. LUNG APICES/SUPERIOR MEDIASTINUM: No focal consolidation is seen within the visualized lung apices. No superior mediastinal lymphadenopathy or mass. The visualized portion of the trachea appears unremarkable. BONES: No aggressive appearing lytic or blastic bony lesion. IMPRESSION: No acute abnormality of the soft tissue structures of the neck. [employer] Phone: Laboratory - Chemistry and C hemistry - challengeOrdered By: Santhosh Schwab on 11-22-2020 GFR/1.73 sq M.predicted MDRD (S/P/Bld) [Vol rate/Area] [employer] Phone: Comment on above: Average GFR for 40-4 9 years old: 99 mL/min/1.73sq m Chronic Kidney Disease: <60 mL/min/1.73sq m Kidney failure: <15 mL/min/1.73sq m eGFR calculated using average adult body mass. Additional eGFR calculator available at: http://www.[employer]/multiple_crcl_2012.htm Stage 1: Some kidney damage normal GFR Stage 2: Mild kidney damage GFR 60-89 Stage 3: Moderate kidney damage GFR 30-59 Stage 4: Severe kidney damage GFR 15-29 Stage 5: Severe kidney damage GFR <15 ESRD - chronic treatment by dialysis or transplant MagnesiumOrdered By: Santhosh Schwab on 11-22-2020 Magnesium [Mass/Vol] 2.2 mg/dL 1.6 - 2 .6 mg/dL [employer] Phone: COVID-19on 09-20-2020 Interpretation and review of laboratory results Abnormal [employer] Phone: SARS-CoV-2 [employer] Phone: SARS-CoV-2 DETECTED Abnormal Not Detected [employer] Phone: Comment on above: The specimen is POSITIVE for SARS-Cov-2, the novel coronavirus associated with COVID-19. Pedro SARS-CoV-2 for use on the Pedro [employer] is a real-time RT-PCR test intended for the qualitative detection of nucleic acids from SARS-CoV-2 in clinician-collected nasal, nasopharyngeal, and oropharyngeal swab specimens from individuals who meet COVID-19 clinical and/or epidemiological criteria. Pedro SARS-CoV-2 is for use only under Emergency Use Authorization (EUA) in laboratories certified under Clinical Laboratory Improvement Amendments of 1988 (CLIA), 42 U.S.C. 263a, that meet requirements to perform high or moderate complexity tests. An individual without symptoms of COVID-19 and who is not shedding SARS-CoV-2 virus would expect to have a negative (not detected) result in this assay. Fact sheet for Healthcare Providers: https://www.fda.gov/media/124897/download Fact sheet for Patients: https://www.fda.gov/media/365935/download METHODOLOGY: RT-PCR Results reported to the appropriate Health Department Source .THROAT SWAB [employer] Phone: Amylaseon 09-19-2020 Amylase [Catalytic activity/Vol] 37 U/L 28 - 100 U/L [employer] Phone: CBC Auto Differentialon - Basophils (Bld) [#/Vol] 0.09 10*3/uL [employer] Phone: Basophils/100 WBC (Bld) 1 % 0 - 2 % [facility] Phone: Differential Type NOT REPORTED [employer] Phone: Eosinophils (Bld) [#/Vol] 0.09 10*3/uL [employer] Phone: Eosinophils/100 WBC (Bld) 1 % 1 - 4 % [employer] Phone: Erythrocyte distribution width (RBC) [Ratio] 11.9 % 11.8 - 14.4 % [employer] Phone: Hematocrit (Bld) [Volume fraction] 42.3 % 36.3 - 47.1 % [employer] Phone: Hemoglobin (Bld) [Mass/Vol] 13.8 g/dL 11.9 - 15.1 g/dL [employer] Phone: Immature granulocytes (Bld) [#/Vol] 0.03 10*3/uL [employer] Phone: Immature granulocytes (Bld) [#/Vol] 0 % 0 [employer] Phone: Interpretation and review of laboratory results Abnormal [employer] Phone: Lymphocytes (Bld) [#/Vol] 2.38 10*3/uL [employer] Phone: Lymphocytes/100 WBC (Bld) 26 % 24 - 43 % [employer] Phone: MCH (RBC) [Entitic mass] 29.7 pg 25.2 - 33.5 pg [employer] Phone: MCHC (RBC) [Mass/Vol] 32.6 g/dL 28.4 - 34.8 g/dL [employer] Work Phone: MCV (RBC) [Entitic vol] 91.2 fL 82.6 - 102.9 fL [facility] Work Phone: Monocytes (Bld) [#/Vol] 0.50 10*3/uL [employer] Work Phone: Monocytes/100 WBC (Bld) 6 % 3 - 12 % M [facility] Work Phone: Platelet mean volume (Bld) [Entitic vol] 10.1 fL 8.1 - 13.5 fL [facility] Phone: Platelets (Bld) [#/Vol] NOT REPORTED [facility] Work Phone: Platelets (Bld) [#/Vol] 287 10*3/uL [facility] Work Phone: RBC (Bld) [#/Vol] 4.64 10*6/uL 3.95 - 5.11 m/uL [employer] Work Phone: RBC morphology finding Nom (Bld) NOT REPORTED [facility] Work Phone: Segmented neutrophils/100 WBC (Bld) 66 % High 36 - 65 % [facility] Work Phone: Segs Absolute 5.96 [facility] [employer] Work Phone: WBC (Bld) [#/Vol] 9.1 10*3/uL [employer] Work Phone: WBC (Bld) [#/Vol] 0.0 10*3/uL 0.0 per 100 WBC [employer] Phone: WBC Morphology NOT REPORTED [facility] Work Phone: Comprehensive Metabolic Pane misti 09-19-2020 Albumin [Mass/Vol] 4.4 g/dL 3.5 - 5.2 g/dL [employer] Phone: Albumin/Globulin [Mass ratio] 1.6 {ratio} [employer] Phone: ALP [Catalytic activity/Vol] 111 U/L High 35 - 104 U/L [employer] Work Phone: ALT [Catalytic activity/Vol] 43 U/L High 5 - 33 U/L [employer] Phone: Anion gap [Moles/Vol] 8 mmol/L Low 9 - 17 mmol/L [employer] Phone: AST [Catalytic activity/Vol] 27 U/L <32 [employer] Phone: Bilirubin Ql (U) 0.28 mg/dL Low 0.3 - 1.2 mg/dL [employer] Phone: Bun/Cre Ratio 9 [employer] Work Phone: Calcium [Mass/Vol] 9.3 mg/dL 8.6 - 10. 4 mg/dL [employer] Phone: Chloride [Moles/Vol] 103 mmol/L 98 - 10 7 mmol/L [employer] Phone: CO2 [Moles/Vol] 27 mmol/L 20 - 31 mmol/L [employer] Work Phone: Creatinine [Mass/Vol] 0.67 mg/dL 0.5 - 0.9 mg/dL [employer] Phone: GFR >60 >60 mL/min [employer] Phone: GFR Non- >60 >60 mL/min [employer] Phone: Glucose [Mass/Vol] 108 mg/dL High 70 - 99 mg/dL [employer] Work Phone: Interpretation and review of laboratory results Abnormal [employer] Phone: Potassium [Moles/Vol] 3.6 mmol/L Low 3.7 - 5.3 mmol/L [employer] Phone: Protein [Mass/Vol] 7.2 g/dL 6.4 - 8.3 g/dL [employer] Phone: Sodium [Moles/Vol] 138 mmol/L 135 - 144 mmol/L [employer] Phone: Urea nitrogen [Mass/Vol] 6 mg/dL 6 - 20 mg/dL [employer] Phone: Lipaseon 09-19-2020 Lipase [Catalytic activity/Vol] 23 U/L 13 - 60 U/L [employer] Phone: Metabolic Panelon 09-19-2020 GFR/1.73 sq M predicted among non-blacks MDRD (S/P/Bld) [Vol rate/Area] [employer] Phone: Comment on above: Stage 1: Some kidney damage normal GFR Stage 2: Mild kidney damage GFR 60-89 Stage 3: Moderate kidney damage GFR 30-59 Stage 4: Severe kidney damage GFR 15-29 Stage 5: Severe kidney damage GFR <15 ESRD - chronic treatment by dialysis or transplant Average GFR for 40-4 9 years old: 99 mL/min/1.73sq m Chronic Kidney Disease: <60 mL/min/1.73sq m Kidney failure: <15 mL/min/1.73sq m eGFR calculated using average adult body mass. Additional eGFR calculator available at: http://www.[email or web address].[employer]/multiple_crcl_2012.htm Sedimentation Rateon 021 Sed Rate 11 mm 0 - 20 mm Jostle Phone: Urinalysis With Microscopico n 09-19-2020 Amorphous, UA NOT REPORTED None [employer] [facility] Work Phone: Bacteria, UA TRACE Abnormal None [employer]le Phone: Bilirubin Urine Negative NEGATIVE [facility] Work Phone: Casts UA NOT REPORTED /LPF [facility] [employer] Work Phone: Color, UA YELLOW YELLOW [facility] Work Phone: Crystals, UA NOT REPORTED None /HPF [facility] Work Phone: Epithelial Cells UA 0 TO 2 [facility] [employer] Work Phone: Glucose, Ur Negative NEGATIVE [facility] Work Phone: Interpretation and review of laboratory results Abnormal [facility] [employer] Work Phone: Ketones Ql (U) Negative NEGATIVE [facility] Work Phone: Leukocyte esterase Test strip Ql (U) Negative NEGATIVE [facility] Work Phone: Mucus, UA NOT REPORTED None [facility] Work Phone: Nitrite, Urine Negative NEGATIVE [facility] Work Phone: Other Observations UA NOT REPORTED NOT REQ. M [facility] [employer] Work Phone: pH, UA 6.0 [facility] [employer] Work Phone: Protein (U) [Mass/Vol] Negative NEGATIVE [facility] Work Phone: RBC (U) [#/Vol] None [facility] Work Phone: Renal Epithelial, UA NOT REPORTED 0 /HPF [facility] Work Phone: Specific [place], UA 1.010 [facility] [employer] Work Phone: Trichomonas, UA NOT REPORTED None [facility]alt Work Phone: Turbidity UA CLEAR CLEAR [facility] Work Phone: Urinalysis Comments NOT REPORTED [facility] Work Phone: Urine Hgb Negative NEGATIVE [facility] Work Phone: Urobilinogen, Urine Normal Normal [employer]le Phone: WBC, UA 0 TO 2 [employer] Phone: Yeast, UA NOT REPORTED None [employer]le Phone: - [employer] Work Phone: Basic Metabolic Panel w/ Ref golden to MGon 08-29-2020 Anion gap [Moles/Vol] 7 mmol/L Low 9 - 17 mmol/L [employer] Work Phone: Bun/Cre Ratio 8 Low [employer] Work Phone: Calcium [Mass/Vol] 8.0 mg/dL Low 8.6 - 10. 4 mg/dL [employer]le Phone: Chloride [Moles/Vol] 109 mmol/L High 98 - 10 7 mmol/L [employer] Phone: CO2 [Moles/Vol] 23 mmol/L 20 - 31 mmol/L [employer] Phone: Creatinine [Mass/Vol] 0.49 mg/dL Low 0.5 - 0.9 mg/dL [employer] Phone: GFR >60 >60 mL/min phorus Phone: GFR Non- >60 >60 mL/min [employer] Phone: Glucose [Mass/Vol] 114 mg/dL High 70 - 99 mg/dL [employer] Phone: Interpretation and review of laboratory results Abnormal [employer] Phone: Potassium [Moles/Vol] 3.8 mmol/L 3.7 - 5.3 mmol/L [employer] Phone: Sodium [Moles/Vol] 139 mmol/L 135 - 144 mmol/L [employer] Phone: Urea nitrogen [Mass/Vol] 4 mg/dL Low 6 - 20 mg/dL [employer] Phone: CBC auto differentialon 08-19 Basophils (Bld) [#/Vol] 0.03 10*3/uL [employer] Phone: Basophils/100 WBC (Bld) 0 % 0 - 2 % M [employer] Phone: Differential Type NOT REPORTED [employer] Phone: Eosinophils (Bld) [#/Vol] 0.08 10*3/uL [employer] Phone: Eosinophils/100 WBC (Bld) 1 % 1 - 4 % [employer] Phone: Erythrocyte distribution width (RBC) [Ratio] 12.0 % 11.8 - 14.4 % [employer] Phone: Hematocrit (Bld) [Volume fraction] 36.4 % 36.3 - 47.1 % [employer] Phone: Hemoglobin (Bld) [Mass/Vol] 12.1 g/dL 11.9 - 15.1 g/dL [employer] Phone: Immature granulocytes (Bld) [#/Vol] 1 % High 0 [employer] Phone: Immature granulocytes (Bld) [#/Vol] 0.04 10*3/uL [employer] Phone: Interpretation and review of laboratory results Abnormal [employer] Phone: Lymphocytes (Bld) [#/Vol] 2.26 10*3/uL [employer] Phone: Lymphocytes/100 WBC (Bld) 31 % 24 - 43 % [employer] Phone: MCH (RBC) [Entitic mass] 30.4 pg 25.2 - 33.5 pg [employer] Phone: MCHC (RBC) [Mass/Vol] 33.2 g/dL 28.4 - 34.8 g/dL [employer] Phone: MCV (RBC) [Entitic vol] 91.5 fL 82.6 - 102.9 fL [facility] Phone: Monocytes (Bld) [#/Vol] 0.55 10*3/uL [facility] Phone: Monocytes/100 WBC (Bld) 8 % 3 - 12 % M [facility] [employer] Work Phone: Platelet mean volume (Bld) [Entitic vol] 10.2 fL 8.1 - 13.5 fL [facility] Phone: Platelets (Bld) [#/Vol] NOT REPORTED [facility] Phone: Platelets (Bld) [#/Vol] 255 10*3/uL [facility] [employer] Phone: RBC (Bld) [#/Vol] 3.98 10*6/uL 3.95 - 5.11 m/uL [facility] Phone: RBC morphology finding Nom (Bld) NOT REPORTED [facility] [employer] Phone: Segmented neutrophils/100 WBC (Bld) 59 % 36 - 65 % [facility] Phone: Segs Absolute 4.30 [facility] Work Phone: WBC (Bld) [#/Vol] 7.3 10*3/uL [facility] [employer] Work Phone: WBC (Bld) [#/Vol] 0.0 10*3/uL 0.0 per 100 WBC [facility] Phone: WBC Morphology NOT REPORTED [facility] Work Phone: Metabolic Panelon 08-29-2020 GFR/1.73 sq M predicted among non-blacks MDRD (S/P/Bld) [Vol rate/Area] [facility] Phone: Comment on above: Average GFR for 40-4 9 years old: 99 mL/min/1.73sq m Chronic Kidney Disease: <60 mL/min/1.73sq m Kidney failure: <15 mL/min/1.73sq m eGFR calculated using average adult body mass. Additional eGFR calculator available at: http://www.[employer]/multiple_crcl_2012.htm Stage 1: Some kidney damage normal GFR Stage 2: Mild kidney damage GFR 60-89 Stage 3: Moderate kidney damage GFR 30-59 Stage 4: Severe kidney damage GFR 15-29 Stage 5: Severe kidney damage GFR <15 ESRD - chronic treatment by dialysis or transplant Basic Metabolic Panel w/ Ref golden to MGon 08-28-2020 Anion gap [Moles/Vol] 9 mmol/L 9 - 17 mmol/L [employer] Phone: Bun/Cre Ratio 9 [employer] Work Phone: Calcium [Mass/Vol] 8.0 mg/dL Low 8.6 - 10. 4 mg/dL [employer] Phone: Chloride [Moles/Vol] 100 mmol/L 98 - 10 7 mmol/L [employer] Phone: CO2 [Moles/Vol] 23 mmol/L 20 - 31 mmol/L [employer] Phone: Creatinine [Mass/Vol] 0.56 mg/dL 0.5 - 0.9 mg/dL [employer] Phone: GFR >60 >60 mL/min phorus Phone: GFR Non- >60 >60 mL/min [employer] Phone: Glucose [Mass/Vol] 100 mg/dL High 70 - 99 mg/dL [employer] Phone: Interpretation and review of laboratory results Abnormal [employer] Phone: Potassium [Moles/Vol] 3.4 mmol/L Low 3.7 - 5.3 mmol/L [employer] Phone: Sodium [Moles/Vol] 132 mmol/L Low 135 - 144 mmol/L [employer] Phone: Urea nitrogen [Mass/Vol] 5 mg/dL Low 6 - 20 mg/dL [employer] Phone: C.trachomatis N.gonorrhoeae DNAon 08-28-2020 C. trachomatis DNA FAUSTINA+probe Ql (Genital specimen) Negative NEGATIVE [employer]le Phone: Comment on above: CHLAMYDIA TRACHOMATI S DNA not detected by nucleic acid amplification. This test is intended for medical purposes only and is not valid for the evaluation of suspected sexual abuse or for other forensic purposes. In certain contexts, culture may be required to meet applicable laws and regulations for diagnosis of C. trachomatis and N. gonorrhoeae infections. Per 2014 CDC recommendations, this test does not include confirmation of positive results by an alternative nucleic acid target. N. gonorrhoeae DNA Negative NEGATIVE [employer] Phone: Comment on above: NEISSERIA GONORRHOEA E DNA not detected by nucleic acid amplification. This test is intended for medical purposes only and is not valid for the evaluation of suspected sexual abuse or for other forensic purposes. In certain contexts, culture may be required to meet applicable laws and regulations for diagnosis of C. trachomatis and N. gonorrhoeae infections. Per 2014 CDC recommendations, this test does not include confirmation of positive results by an alternative nucleic acid target. Specimen Description .CERVIX phorus Phone: CBC auto differentialon 08-19 Basophils (Bld) [#/Vol] 0.04 10*3/uL [employer] Phone: Basophils/100 WBC (Bld) 1 % 0 - 2 % M [facility] Phone: Differential Type NOT REPORTED [employer] Phone: Eosinophils (Bld) [#/Vol] 0.08 10*3/uL [employer] Phone: Eosinophils/100 WBC (Bld) 1 % 1 - 4 % [employer] Phone: Erythrocyte distribution width (RBC) [Ratio] 11.9 % 11.8 - 14.4 % [employer] Phone: Hematocrit (Bld) [Volume fraction] 37.0 % 36.3 - 47.1 % [employer] Phone: Hemoglobin (Bld) [Mass/Vol] 12.3 g/dL 11.9 - 15.1 g/dL [employer] Phone: Immature granulocytes (Bld) [#/Vol] 0 % 0 [employer] Phone: Immature granulocytes (Bld) [#/Vol] 10*3/uL [employer] Phone: Lymphocytes (Bld) [#/Vol] 1.87 10*3/uL [employer] Phone: Lymphocytes/100 WBC (Bld) 31 % 24 - 43 % [employer] Phone: MCH (RBC) [Entitic mass] 30.1 pg 25.2 - 33.5 pg [employer] Phone: MCHC (RBC) [Mass/Vol] 33.2 g/dL 28.4 - 34.8 g/dL [employer] Phone: MCV (RBC) [Entitic vol] 90.5 fL 82.6 - 102.9 fL [employer] Phone: Monocytes (Bld) [#/Vol] 0.40 10*3/uL [employer] Phone: Monocytes/100 WBC (Bld) 7 % 3 - 12 % M [employer] Phone: Platelet mean volume (Bld) [Entitic vol] 9.8 fL 8.1 - 13.5 fL [employer] Phone: Platelets (Bld) [#/Vol] 213 10*3/uL [employer] Phone: Platelets (Bld) [#/Vol] NOT REPORTED [employer] Work Phone: RBC (Bld) [#/Vol] 4.09 10*6/uL 3.95 - 5.11 m/uL [employer] Work Phone: RBC morphology finding Nom (Bld) NOT REPORTED [employer] Work Phone: Segmented neutrophils/100 WBC (Bld) 60 % 36 - 65 % [employer] Work Phone: Segs Absolute 3.71 [email or web address] Work Phone: WBC (Bld) [#/Vol] 6.1 10*3/uL [employer] Work Phone: WBC (Bld) [#/Vol] 0.0 10*3/uL 0.0 per 100 WBC [employer] Work Phone: WBC Morphology NOT REPORTED [employer] [facility] Work Phone: CT ABDOMEN PELVIS W IV CONTR AST Additional Contrast? Oralon 08-28-2020 Benoit, Mhpn Incoming Radiant Results From [employer] - 08/28/2020 10:01 AM EST EXAMINATION: CT OF THE ABDOMEN AND PELVIS WITH CONTRAST 08/28/2020 9:26 am TECHNIQUE: CT of the abdomen and pelvis was performed with the administration of intravenous contrast. Multiplanar reformatted images are provided for review. Dose modulation, iterative reconstruction, and/or weight based adjustment of the mA/kV was utilized to reduce the radiation dose to as low as reasonably achievable. COMPARISON: 08/27/2020 HISTORY: ORDERING SYSTEM PROVIDED HISTORY: abdominal pain TECHNOLOGIST PROVIDED HISTORY: abdominal pain FINDINGS: Lower Chest: Coronary calcified atheromatous plaque. Trace pleural effusions. Organs: Findings compatible with hepatic steatosis. Status post cholecystectomy. The pancreas, spleen, adrenals and kidneys reveal no acute findings. GI/Bowel: There is no bowel dilatation or wall thickening identified. The appendix is not identified, however no secondary signs of acute appendicitis are appreciated. Pelvis: Trace pelvic free fluid. Prominent follicle or small cyst in the left ovary, for which no further evaluation is necessary. The patient is status post hysterectomy. Peritoneum/Retroperitone um: No free air. No abdominal ascites. The aorta is normal in caliber. Scattered calcified atheromatous plaque is present. Surgical clips are present along the left common iliac artery. No lymphadenopathy. Bones/Soft Tissues: Multilevel degenerative change in the lumbar spine. Status post transpedicular fusion at L5-S1. Discectomies have been performed at L3-4, L4-5 and L5-S1. IMPRESSION: 1. No acute inflammatory process identified in the abdomen or pelvis. 2. Trace pleural effusions and trace pelvic free fluid. 3. Findings compatible with hepatic steatosis. Jostle Phone: EXAMINATION: CT OF T HE ABDOMEN AND PELVIS WITH CONTRAST 08/28/2020 9:26 am TECHNIQUE: CT of the abdomen and pelvis was performed with the administration of intravenous contrast. Multiplanar reformatted images are provided for review. Dose modulation, iterative reconstruction, and/or weight based adjustment of the mA/kV was utilized to reduce the radiation dose to as low as reasonably achievable. COMPARISON: 08/27/2020 HISTORY: ORDERING SYSTEM PROVIDED HISTORY: abdominal pain TECHNOLOGIST PROVIDED HISTORY: abdominal pain FINDINGS: Lower Chest: Coronary calcified atheromatous plaque. Trace pleural effusions. Organs: Findings compatible with hepatic steatosis. Status post cholecystectomy. The pancreas, spleen, adrenals and kidneys reveal no acute findings. GI/Bowel: There is no bowel dilatation or wall thickening identified. The appendix is not identified, however no secondary signs of acute appendicitis are appreciated. Pelvis: Trace pelvic free fluid. Prominent follicle or small cyst in the left ovary, for which no further evaluation is necessary. The patient is status post hysterectomy. Peritoneum/Retroperitone um: No free air. No abdominal ascites. The aorta is normal in caliber. Scattered calcified atheromatous plaque is present. Surgical clips are present along the left common iliac artery. No lymphadenopathy. Bones/Soft Tissues: Multilevel degenerative change in the lumbar spine. Status post transpedicular fusion at L5-S1. Discectomies have been performed at L3-4, L4-5 and L5-S1. Jostle Phone: 1. No acute inflamma tory process identified in the abdomen or pelvis. 2. Trace pleural effusions and trace pelvic free fluid. 3. Findings compatible with hepatic steatosis. Jostle Phone: Magnesiumon 08-28-2020 Magnesium [Mass/Vol] 2.1 mg/dL 1.6 - 2 .6 mg/dL [employer] Phone: Metabolic Panelon 08-28-2020 GFR/1.73 sq M predicted among non-blacks MDRD (S/P/Bld) [Vol rate/Area] J[employer]le Phone: Comment on above: Stage 1: Some kidney damage normal GFR Stage 2: Mild kidney damage GFR 60-89 Stage 3: Moderate kidney damage GFR 30-59 Stage 4: Severe kidney damage GFR 15-29 Stage 5: Severe kidney damage GFR <15 ESRD - chronic treatment by dialysis or transplant Average GFR for 40-4 9 years old: 99 mL/min/1.73sq m Chronic Kidney Disease: <60 mL/min/1.73sq m Kidney failure: <15 mL/min/1.73sq m eGFR calculated using average adult body mass. Additional eGFR calculator available at: http://www.[employer]/multiple_crcl_2012.htm Basic Metabolic Panelon Anion gap [Moles/Vol] 9 mmol/L 9 - 17 mmol/L [employer] Phone: Bun/Cre Ratio 11 [employer] Work Phone: Calcium [Mass/Vol] 8.8 mg/dL 8.6 - 10. 4 mg/dL Jostle Phone: Chloride [Moles/Vol] 102 mmol/L 98 - 10 7 mmol/L [employer] Phone: CO2 [Moles/Vol] 23 mmol/L 20 - 31 mmol/L [employer] Phone: Creatinine [Mass/Vol] 0.56 mg/dL 0.5 - 0.9 mg/dL [employer] Phone: GFR >60 >60 mL/min phorus Phone: GFR Non- >60 >60 mL/min [employer] Phone: Glucose [Mass/Vol] 109 mg/dL High 70 - 99 mg/dL [employer] Phone: Potassium [Moles/Vol] 3.8 mmol/L 3.7 - 5.3 mmol/L [employer] Phone: Sodium [Moles/Vol] 134 mmol/L Low 135 - 144 mmol/L [employer] Phone: Urea nitrogen [Mass/Vol] 6 mg/dL 6 - 20 mg/dL [employer] Phone: CBCon 08-27-2020 Erythrocyte distribution width (RBC) [Ratio] 11.9 % 11.8 - 14.4 % [employer] Phone: Hematocrit (Bld) [Volume fraction] 38.7 % 36.3 - 47.1 % [employer] Phone: Hemoglobin (Bld) [Mass/Vol] 13.0 g/dL 11.9 - 15.1 g/dL [employer] Phone: MCH (RBC) [Entitic mass] 30.3 pg 25.2 - 33.5 pg [employer] Phone: MCHC (RBC) [Mass/Vol] 33.6 g/dL 28.4 - 34.8 g/dL [employer] Phone: MCV (RBC) [Entitic vol] 90.2 fL 82.6 - 102.9 fL [employer] Phone: Platelet mean volume (Bld) [Entitic vol] 10.1 fL 8.1 - 13.5 fL [employer] Phone: Platelets (Bld) [#/Vol] 250 10*3/uL [employer] Phone: RBC (Bld) [#/Vol] 4.29 10*6/uL 3.95 - 5.11 m/uL [employer] Phone: WBC (Bld) [#/Vol] 0.0 10*3/uL 0.0 per 100 WBC [employer] Phone: WBC (Bld) [#/Vol] 7.3 10*3/uL [employer] Phone: CBC auto differentialon 020 Basophils (Bld) [#/Vol] 0.04 10*3/uL [employer] Phone: Basophils/100 WBC (Bld) 1 % 0 - 2 % M [employer] Phone: Differential Type NOT REPORTED [employer] Phone: Eosinophils (Bld) [#/Vol] 0.07 10*3/uL [employer] Phone: Eosinophils/100 WBC (Bld) 1 % 1 - 4 % [employer] Phone: Erythrocyte distribution width (RBC) [Ratio] 11.8 % 11.8 - 14.4 % [employer] Phone: Hematocrit (Bld) [Volume fraction] 36.1 % Low 36.3 - 47.1 % [employer] Phone: Hemoglobin (Bld) [Mass/Vol] 12.2 g/dL 11.9 - 15.1 g/dL [employer] Phone: Immature granulocytes (Bld) [#/Vol] 0 % 0 [employer] Phone: Immature granulocytes (Bld) [#/Vol] 10*3/uL [employer] Phone: Interpretation and review of laboratory results Abnormal [employer] Phone: Lymphocytes (Bld) [#/Vol] 2.26 10*3/uL [employer] Phone: Lymphocytes/100 WBC (Bld) 26 % 24 - 43 % [employer] Work Phone: MCH (RBC) [Entitic mass] 30.4 pg 25.2 - 33.5 pg Jostle Phone: MCHC (RBC) [Mass/Vol] 33.8 g/dL 28.4 - 34.8 g/dL J[employer] Phone: MCV (RBC) [Entitic vol] 90.0 fL 82.6 - 102.9 fL [employer] Work Phone: Monocytes (Bld) [#/Vol] 0.43 10*3/uL [employer] Phone: Monocytes/100 WBC (Bld) 5 % 3 - 12 % M [employer] Work Phone: Platelet mean volume (Bld) [Entitic vol] 9.9 fL 8.1 - 13.5 fL J[employer] Phone: Platelets (Bld) [#/Vol] 225 10*3/uL [employer] Phone: Platelets (Bld) [#/Vol] NOT REPORTED [facility] Phone: RBC (Bld) [#/Vol] 4.01 10*6/uL 3.95 - 5.11 m/uL [employer] Phone: RBC morphology finding Nom (Bld) NOT REPORTED [facility] Work Phone: Segmented neutrophils/100 WBC (Bld) 67 % High 36 - 65 % [facility] Work Phone: Segs Absolute 5.82 [email or web address] Work Phone: WBC (Bld) [#/Vol] 8.6 10*3/uL [employer] Phone: WBC (Bld) [#/Vol] 0.0 10*3/uL 0.0 per 100 WBC [employer] Phone: WBC Morphology NOT REPORTED [employer] Work Phone: CT ABDOMEN PELVIS W IV CONTR AST Additional Contrast? Noneon 08-27-2020 EXAMINATION: CT OF Eliu DAN ABDOMEN AND PELVIS WITH CONTRAST 08/27/2020 8:37 am TECHNIQUE: CT of the abdomen and pelvis was performed with the administration of intravenous contrast. Multiplanar reformatted images are provided for review. Dose modulation, iterative reconstruction, and/or weight based adjustment of the mA/kV was utilized to reduce the radiation dose to as low as reasonably achievable. COMPARISON: CT abdomen and pelvis performed 04/19/2019. HISTORY: ORDERING SYSTEM PROVIDED HISTORY: RLQ pain, flank pain TECHNOLOGIST PROVIDED HISTORY: RLQ pain, flank pain Decision Support Exception->Emergency Medical Condition (MA) FINDINGS: Lower Chest: There is no acute consolidation or effusion the lung bases. The visualized cardiac structures are unremarkable. Organs: There is a degree of hepatic steatosis. The gallbladder has been removed. The pancreas, spleen, and adrenal glands are unremarkable. The kidneys are without obstructive uropathy. The ureters are not dilated. The urinary bladder is unremarkable. GI/Bowel: The stomach is contracted and otherwise unremarkable. Loops of small bowel are normal in caliber without evidence for obstruction. The colon contains air and fecal residue. The appendix is not definitively visualized although there is no right lower quadrant or pericecal inflammation. There is no intraperitoneal free air or free fluid. Pelvis: The uterus has been surgically removed. Peritoneum/Retroperitone um: The psoas muscles are symmetric. The abdominal aorta is normal in caliber. The inferior vena cava is unremarkable. There is no retroperitoneal or mesenteric adenopathy. Bones/Soft Tissues: The extra-abdominal soft tissues are unremarkable. There is no acute osseous abnormality. [employer] Work Phone: No acute abdominal o r pelvic abnormality. Hepatic steatosis. Cholecystectomy and hysterectomy. Jostle Phone: Benoit, Mhpn Incoming Radiant Results From [employer] - 08/27/2020 9:01 AM EST EXAMINATION: CT OF THE ABDOMEN AND PELVIS WITH CONTRAST 08/27/2020 8:37 am TECHNIQUE: CT of the abdomen and pelvis was performed with the administration of intravenous contrast. Multiplanar reformatted images are provided for review. Dose modulation, iterative reconstruction, and/or weight based adjustment of the mA/kV was utilized to reduce the radiation dose to as low as reasonably achievable. COMPARISON: CT abdomen and pelvis performed 04/19/2019. HISTORY: ORDERING SYSTEM PROVIDED HISTORY: RLQ pain, flank pain TECHNOLOGIST PROVIDED HISTORY: RLQ pain, flank pain Decision Support Exception->Emergency Medical Condition (MA) FINDINGS: Lower Chest: There is no acute consolidation or effusion the lung bases. The visualized cardiac structures are unremarkable. Organs: There is a degree of hepatic steatosis. The gallbladder has been removed. The pancreas, spleen, and adrenal glands are unremarkable. The kidneys are without obstructive uropathy. The ureters are not dilated. The urinary bladder is unremarkable. GI/Bowel: The stomach is contracted and otherwise unremarkable. Loops of small bowel are normal in caliber without evidence for obstruction. The colon contains air and fecal residue. The appendix is not definitively visualized although there is no right lower quadrant or pericecal inflammation. There is no intraperitoneal free air or free fluid. Pelvis: The uterus has been surgically removed. Peritoneum/Retroperitone um: The psoas muscles are symmetric. The abdominal aorta is normal in caliber. The inferior vena cava is unremarkable. There is no retroperitoneal or mesenteric adenopathy. Bones/Soft Tissues: The extra-abdominal soft tissues are unremarkable. There is no acute osseous abnormality. IMPRESSION: No acute abdominal or pelvic abnormality. Hepatic steatosis. Cholecystectomy and hysterectomy. Jostle Phone: Hepatic function panelon Albumin [Mass/Vol] 4.1 g/dL 3.5 - 5.2 g/dL [employer] Phone: Albumin/Globulin [Mass ratio] 1.6 {ratio} [employer] Phone: ALP [Catalytic activity/Vol] 95 U/L 35 - 104 U/L [employer] Phone: ALT [Catalytic activity/Vol] 35 U/L High 5 - 33 U/L [employer] Phone: AST [Catalytic activity/Vol] 27 U/L <32 [employer] Phone: Bilirubin Ql (U) 0.32 mg/dL 0.3 - 1.2 mg/dL [employer] Phone: Bilirubin, Indirect CANNOT BE CALCULATED 0 - 1 mg/dL [employer] Phone: Bilirubin.direct [Mass/Vol] mg/dL <0.31 mg/dL [employer] Phone: Globulin (S) [Mass/Vol] NOT REPORTED 1.5 - 3.8 g/dL [employer] Phone: Protein [Mass/Vol] 6.7 g/dL 6.4 - 8.3 g/dL [employer] Phone: Lactic acid, plasmaon 2020 Lactate [Moles/Vol] 1.2 mmol/L 0.5 - 2. 2 mmol/L [employer] Phone: Lactic Acid, Whole Blood NOT REPORTED 0.7 - 2.1 mmol/L [employer] Phone: Lipaseon 08-27-2020 Lipase [Catalytic activity/Vol] 24 U/L 13 - 60 U/L [employer] Phone: Metabolic Panelon 08-27-2020 GFR/1.73 sq M predicted among non-blacks MDRD (S/P/Bld) [Vol rate/Area] [employer] Phone: Comment on above: Stage 1: Some kidney damage normal GFR Stage 2: Mild kidney damage GFR 60-89 Stage 3: Moderate kidney damage GFR 30-59 Stage 4: Severe kidney damage GFR 15-29 Stage 5: Severe kidney damage GFR <15 ESRD - chronic treatment by dialysis or transplant Average GFR for 40-4 9 years old: 99 mL/min/1.73sq m Chronic Kidney Disease: <60 mL/min/1.73sq m Kidney failure: <15 mL/min/1.73sq m eGFR calculated using average adult body mass. Additional eGFR calculator available at: http://www.[employer]/multiple_crcl_2012.htm Microscopic Urinalysison Amorphous, UA NOT REPORTED None [employer] Work Phone: Bacteria, UA NOT REPORTED None [facility] Work Phone: Casts UA NOT REPORTED /LPF [facility] Work Phone: Crystals, UA NOT REPORTED None /HPF [facility] Work Phone: Epithelial Cells UA 10 TO 20 [facility] Work Phone: Mucus, UA NOT REPORTED None [facility] Work Phone: Other Observations UA NOT REPORTED NOT REQ. M [facility] Work Phone: RBC (U) [#/Vol] None [facility] Work Phone: Renal Epithelial, UA NOT REPORTED 0 /HPF [facility] Work Phone: Trichomonas, UA NOT REPORTED None [facility] Work Phone: WBC, UA 0 TO 2 [facility] Work Phone: Yeast, UA NOT REPORTED None [facility] Work Phone: - [facility] Work Phone: Otheron 08-27-2020 Interpretation and review of laboratory results Abnormal [facility] Work Phone: Urinalysis Reflex to Culture on 08-27-2020 Bilirubin Urine Negative NEGATIVE [facility] Work Phone: Color, UA YELLOW YELLOW [facility] Work Phone: Glucose, Ur Negative NEGATIVE [facility] Work Phone: Interpretation and review of laboratory results Abnormal [facility] Work Phone: Ketones Ql (U) Negative NEGATIVE [facility] Work Phone: Leukocyte esterase Test strip Ql (U) Negative NEGATIVE [facility] Work Phone: Nitrite, Urine Negative NEGATIVE [facility] Work Phone: pH, UA 5.5 [facility] Work Phone: Protein (U) [Mass/Vol] Negative NEGATIVE [facility] Work Phone: Specific [place], UA 1.025 High [facility] [employer] Work Phone: Turbidity UA CLEAR CLEAR [facility] Work Phone: Urinalysis Comments NOT REPORTED [facility] [employer] Work Phone: Urine Hgb Negative NEGATIVE [facility] [employer] Work Phone: Urobilinogen, Urine Normal Normal [facility] [employer] Phone: Wet Prep, Genitalon 08-27-19 Direct Exam NO TRICHOMONAS SEEN [facility] [employer] Phone: Direct Exam NO CLUE CELLS SEEN [facility] [employer] Phone: Special Requests NOT REPORTED [facility] [employer] Phone: Specimen Description .VAGINA [facility] [employer] Work Phone: Lipid Panelon 07-05-2020 Cholesterol [Mass/Vol] 151 mg/dL <200 [place] Comment on above: Cholesterol Guidelines: <200 Desirable 200-240 Borderline >240 Undesirable Cholesterol in HDL [Mass/Vol] 29 mg/dL Low >40 [place] Comment on above: HDL Guidelines: <40 Undesirable 40-59 Borderline >59 Desirable Cholesterol in LDL [Mass/Vol] 47 mg/dL 0 - 130 mg/dL [place] Comment on above: LDL Guidelines: <100 Desirable 100-129 Near to/above Desirable 130-159 Borderline >159 Undesirable Direct (measured) LDL and calculated LDL are not interchangeable tests. Cholesterol in VLDL [Mass/Vol] NOT REPORTED High 1 - 30 mg/dL [place] Cholesterol.total/Audelia sterol in HDL [Mass ratio] 5.2 {ratio} High <5 [place] Interpretation and review of laboratory results Abnormal [place] Triglyceride [Mass/Vol] 377 mg/dL High <150 [place] Comment on above: Triglyceride Guidelines: <150 Desirable 150-199 Borderline 200-499 High >499 Very high Based on AHA Guidelines for fasting triglyceride, April 2012. Basic Metabolic Panelon 06-18 Anion gap [Moles/Vol] 8 mmol/L Low 9 - 17 mmol/L [place] Bun/Cre Ratio 16 [place] Calcium [Mass/Vol] 9.1 mg/dL 8.6 - 10. 4 mg/dL [place] Chloride [Moles/Vol] 105 mmol/L 98 - 10 7 mmol/L [place] CO2 [Moles/Vol] 24 mmol/L 20 - 31 mmol/L [place] Creatinine [Mass/Vol] 0.64 mg/dL 0.5 - 0.9 mg/dL [place] GFR >60 >60 mL/min [place] GFR Non- >60 >60 mL/min [place] Glucose [Mass/Vol] 99 mg/dL 70 - 99 mg/dL [place] Interpretation and review of laboratory results Abnormal [place] Potassium [Moles/Vol] 4.3 mmol/L 3.7 - 5.3 mmol/L [place] Sodium [Moles/Vol] 137 mmol/L 135 - 144 mmol/L [place] Urea nitrogen [Mass/Vol] 10 mg/dL 6 - 20 mg/dL [place] CBCon 07-04-2020 Erythrocyte distribution width (RBC) [Ratio] 11.8 % 11.8 - 14.4 % [place] Hematocrit (Bld) [Volume fraction] 37.2 % 36.3 - 47.1 % [place] Hemoglobin (Bld) [Mass/Vol] 12.5 g/dL 11.9 - 15.1 g/dL [place] MCH (RBC) [Entitic mass] 30.9 pg 25.2 - 33.5 pg [place] MCHC (RBC) [Mass/Vol] 33.6 g/dL 28.4 - 34.8 g/dL [place] MCV (RBC) [Entitic vol] 91.9 fL 82.6 - 102.9 fL [place] Platelet mean volume (Bld) [Entitic vol] 10.1 fL 8.1 - 13.5 fL [place] Platelets (Bld) [#/Vol] 289 10*3/uL [place] RBC (Bld) [#/Vol] 4.05 10*6/uL 3.95 - 5.11 m/uL [place] WBC (Bld) [#/Vol] 0.0 10*3/uL 0.0 per 100 WBC [place] WBC (Bld) [#/Vol] 6.8 10*3/uL [place] Echo 2D w doppler w [facility] Transthoracic Echocardiography Report (TTE) Patient Name ADRIÁN Date of Study 07/04/2020 MIKE N Date of 1975 Gender Female Age 44 year(s) Race Room Number Height: 64 inch, 162.56 cm Corporate ID [id number] Weight: 192 pounds, 87.1 kg # Patient Acct [id number] BSA: 1.92 m^2 BMI: 32.96 # kg/m^2 MR # [id number] 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 Interpreting Physician Ronan Rodriguez Fellow Referring Nurse Practitioner Interpreting Referring Physician Nat Mora Fellow Type of Study TTE procedure:2D Echocardiogram, M-Mode, Doppler, Color Doppler. Procedure Date Date: 07/04/2020 Start: 11:51 AM Study Location: [facility] Indications:Chest pain and Palpitations. History / Tech. Comments: Dx: chest pain, palpitations Hx: ASHD, angioplasty, HTN, tobacco use, hyperlipidemia, MATT, TIA, family history of premature CAD Patient Status: Outpatient Height: 64 inches Weight: 192 pounds BSA: 1.92 m^2 BMI: 32.96 kg/m^2 BP: 148/97 mmHg Allergies - Cephalosporins. CONCLUSIONS Summary Global left ventricular systolic function appears preserved with an estimated ejection fraction of 60%. Mildly increased left ventricular wall thickness with a normal left ventricular cavity size. Normal aortic valve structure with mild aortic regurgitation. Normal mitral valve structure with mild mitral regurgitation. No clear evidence of diastolic dysfunction was identified. Compared to the previous study of 11/25/18, no significant change was seen. No significant cardiac cause of chest pain or palpitations was identified from this study. Signature ---- ---- ---- Electronically signed by Thomas RodriguezUofl Health - Mary And Elizabeth Hospitaltammy physician) on 07/04/2020 06:40 PM ---- FINDINGS Left Atrium The left atrium is normal with a left atrial volume index of 18 ml/m2. Left Ventricle Global left ventricular systolic function appears preserved with an estimated ejection fraction of 60%. Mildly increased left ventricular wall thickness with a normal left ventricular cavity size. Right Atrium Right atrium is normal in size. Right Ventricle Normal right ventricular size and function. Mitral Valve Normal mitral valve structure with mild mitral regurgitation. Aortic Valve Normal aortic valve structure with mild aortic regurgitation. Tricuspid Valve Normal tricuspid valve structure and function. Pulmonic Valve The pulmonic valve is normal in structure. Pericardial Effusion No significant pericardial effusion is seen. Miscellaneous No clear evidence of diastolic dysfunction was identified. Normal aortic root dimension. M-mode / 2D Measurements & Calculations: LVIDd:4.19 cm(3.7 - 5.6 cm) Diastolic Volume:73.56 ml LVIDs:2.98 cm(2.2 - 4.0 cm) Systolic Volume:26.55 ml IVSd:1.06 cm(0.6 - 1.1 cm) Aortic Root:3.2 cm(2.0 - 3.7 cm) LVPWd:1.07 cm(0.6 - 1.1 cm) LA Dimension: 3.03 cm(1.9 - 4.0 cm) Fractional Shortenin.88 % LA volume/Index: 34.2 ml /18m^2 Calculated LVEF (%): 63.91 % AV Cusp Separation: 2 cm Mitral: Aortic Valve Area (P1/2-Time): 3.35 cm^2 Peak Velocity: 1.05 m/s Peak E-Wave: 0.60 m/s Mean Velocity: 0.70 m/s Peak A-Wave: 0.41 m/s Peak Gradient: 4.42 mmHg E/A Ratio: 1.46 Mean Gradient: 2.2 mmHg Peak Gradient: 1.43 mmHg Acceleration Time: 71.83 msec P1/2t: 65.69 msec AV VTI: 18.99 cm Diastology / Tissue Doppler Lateral Wall E' velocity:0.12 m/s Lateral Wall E/E':4.86 [facility] [place], [place], [place] Incoming Cardio Results From [facility]/ - 07/04/2020 6:40 PM EST [facility] Transthoracic Echocardiography Report (TTE) Patient Name ADRIÁN Date of Study 07/04/2020 MIKE N Date of 1975 Gender Female Age 44 year(s) Race Room Number Height: 64 inch, 162.56 cm Corporate ID [id number] Weight: 192 pounds, 87.1 kg # Patient Acct [id number] BSA: 1.92 m^2 BMI: 32.96 # kg/m^2 MR # [id number] 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 Procedure Date Date: 07/04/2020 Start: 11:51 AM Study Location: [facility] Indications:Chest pain and Palpitations. History / Tech. Comments: Dx: chest pain, palpitations Hx: ASHD, angioplasty, HTN, tobacco use, hyperlipidemia, MATT, TIA, family history of premature CAD Patient Status: Outpatient Height: 64 inches Weight: 192 pounds BSA: 1.92 m^2 BMI: 32.96 kg/m^2 BP: 148/97 mmHg Allergies - Cephalosporins. CONCLUSIONS Summary Global left ventricular systolic function appears preserved with an estimated ejection fraction of 60%. Mildly increased left ventricular wall thickness with a normal left ventricular cavity size. Normal aortic valve structure with mild aortic regurgitation. Normal mitral valve structure with mild mitral regurgitation. No clear evidence of diastolic dysfunction was identified. Compared to the previous study of 11/25/18, no significant change was seen. No significant cardiac cause of chest pain or palpitations was identified from this study. Signature --- - --- - --- - --- - FINDINGS Left Atrium The left atrium is normal with a left atrial volume index of 18 ml/m2. Left Ventricle Global left ventricular systolic function appears preserved with an estimated ejection fraction of 60%. Mildly increased left ventricular wall thickness with a normal left ventricular cavity size. Right Atrium Right atrium is normal in size. Right Ventricle Normal right ventricular size and function. Mitral Valve Normal mitral valve structure with mild mitral regurgitation. Aortic Valve Normal aortic valve structure with mild aortic regurgitation. Tricuspid Valve Normal tricuspid valve structure and function. Pulmonic Valve The pulmonic valve is normal in structure. Pericardial Effusion No significant pericardial effusion is seen. Miscellaneous No clear evidence of diastolic dysfunction was identified. Normal aortic root dimension. M-mode / 2D Measurements & Calculations: LVIDd:4.19 cm(3.7 - 5.6 cm) Diastolic Volume:73.56 ml LVIDs:2.98 cm(2.2 - 4.0 cm) Systolic Volume:26.55 ml IVSd:1.06 cm(0.6 - 1.1 cm) Aortic Root:3.2 cm(2.0 - 3.7 cm) LVPWd:1.07 cm(0.6 - 1.1 cm) LA Dimension: 3.03 cm(1.9 - 4.0 cm) Fractional Shortenin.88 % LA volume/Index: 34.2 ml /18m^2 Calculated LVEF (%): 63.91 % AV Cusp Separation: 2 cm Mitral: Aortic Valve Area (P1/2-Time): 3.35 cm^2 Peak Velocity: 1.05 m/s Peak E-Wave: 0.60 m/s Mean Velocity: 0.70 m/s Peak A-Wave: 0.41 m/s Peak Gradient: 4.42 mmHg E/A Ratio: 1.46 Mean Gradient: 2.2 mmHg Peak Gradient: 1.43 mmHg Acceleration Time: 71.83 msec P1/2t: 65.69 msec AV VTI: 18.99 cm Diastology / Tissue Doppler Lateral Wall E' velocity:0.12 m/s Lateral Wall E/E':4.86 [place] Metabolic Panelon 07-04-2020 GFR/1.73 sq M predicted among non-blacks MDRD (S/P/Bld) [Vol rate/Area] [place], [place] Comment on above: Stage 1: Some kidney damage normal GFR Stage 2: Mild kidney damage GFR 60-89 Stage 3: Moderate kidney damage GFR 30-59 Stage 4: Severe kidney damage GFR 15-29 Stage 5: Severe kidney damage GFR <15 ESRD - chronic treatment by dialysis or transplant Average GFR for 40-4 9 years old: 99 mL/min/1.73sq m Chronic Kidney Disease: <60 mL/min/1.73sq m Kidney failure: <15 mL/min/1.73sq m eGFR calculated using average adult body mass. Additional eGFR calculator available at: http://www.[employer]/multiple_crcl_2012.htm APTTon 06-17-2020 aPTT Coag (Bld) [Time] 28.3 s [place] Comment on above: IV Heparin Therapy Range: 62.0-94.0 Brain Natriuretic Peptideon 06-17-2020 Natriuretic peptide B (Bld) [Mass/Vol] Pro-BNP Reference Range: [place], [place] Comment on above: Rule Out: <300 [place] Zone: Age <50 300-450 Age 50-75 300-900 Age >75 300-1800 Usually represents mild to moderate HF but other cardiopulmonary causes cannot be ruled out. Rule In: Age <50 >450 Age 50-75 >900 Age >75 >1800 Natriuretic peptide B (Bld) [Mass/Vol] 59 pg/mL <300 [place] Comment on above: Pro-BNP results alirio ot be compared to BNP results. CBC Auto Differentialon 05-21 Basophils (Bld) [#/Vol] 10*3/uL [place] Basophils/100 WBC (Bld) 0 % 0 - 2 % [place] Differential Type NOT REPORTED [place] Eosinophils (Bld) [#/Vol] 10*3/uL [place] Eosinophils/100 WBC (Bld) 0 % Low 1 - 4 % [place] Erythrocyte distribution width (RBC) [Ratio] 12.0 % 11.8 - 14.4 % [place] Hematocrit (Bld) [Volume fraction] 38.2 % 36.3 - 47.1 % [place] Hemoglobin (Bld) [Mass/Vol] 13.0 g/dL 11.9 - 15.1 g/dL [place] Immature granulocytes (Bld) [#/Vol] 0 % 0 [place] Immature granulocytes (Bld) [#/Vol] 10*3/uL [place] Interpretation and review of laboratory results Abnormal [place] Lymphocytes (Bld) [#/Vol] 1.51 10*3/uL [place] Lymphocytes/100 WBC (Bld) 31 % 24 - 43 % [place] MCH (RBC) [Entitic mass] 30.6 pg 25.2 - 33.5 pg [place] MCHC (RBC) [Mass/Vol] 34.0 g/dL 28.4 - 34.8 g/dL [place] MCV (RBC) [Entitic vol] 89.9 fL 82.6 - 102.9 fL [place] Monocytes (Bld) [#/Vol] 0.55 10*3/uL [place] Monocytes/100 WBC (Bld) 11 % 3 - 12 % [place] Platelet mean volume (Bld) [Entitic vol] 9.9 fL 8.1 - 13.5 fL [place] Platelets (Bld) [#/Vol] NOT REPORTED [place] Platelets (Bld) [#/Vol] 198 10*3/uL [place] RBC (Bld) [#/Vol] 4.25 10*6/uL 3.95 - 5.11 m/uL [place] RBC morphology finding Nom (Bld) NOT REPORTED [place] Segmented neutrophils/100 WBC (Bld) 58 % 36 - 65 % [place] Segs Absolute 2.69 [place] WBC (Bld) [#/Vol] 0.0 10*3/uL 0.0 per 100 WBC [place] WBC (Bld) [#/Vol] 4.8 10*3/uL [place] WBC Morphology NOT REPORTED [place] Comprehensive Metabolic Pane l w/ Reflex to MGon 06-17-2020 Albumin [Mass/Vol] 4 g/dL 3.5 - 5.2 g/dL [place] Albumin/Globulin [Mass ratio] 1.5 {ratio} [place] ALP [Catalytic activity/Vol] 109 U/L High 35 - 104 U/L [place] ALT [Catalytic activity/Vol] 88 U/L High 5 - 33 U/L [place] Anion gap [Moles/Vol] 8 mmol/L Low 9 - 17 mmol/L [place] AST [Catalytic activity/Vol] 71 U/L High <32 [place] Bilirubin Ql (U) 0.29 mg/dL Low 0.3 - 1.2 mg/dL [place] Bun/Cre Ratio 9 [place] Calcium [Mass/Vol] 8.7 mg/dL 8.6 - 10. 4 mg/dL [place] Chloride [Moles/Vol] 107 mmol/L 98 - 10 7 mmol/L [place] CO2 [Moles/Vol] 23 mmol/L 20 - 31 mmol/L [place] Creatinine [Mass/Vol] 0.57 mg/dL 0.5 - 0.9 mg/dL [place] GFR >60 >60 mL/min [place] GFR Non- >60 >60 mL/min [place] Glucose [Mass/Vol] 119 mg/dL High 70 - 99 mg/dL [place] Interpretation and review of laboratory results Abnormal [place] Potassium [Moles/Vol] 3.7 mmol/L 3.7 - 5.3 mmol/L [place] Protein [Mass/Vol] 6.6 g/dL 6.4 - 8.3 g/dL [place] Sodium [Moles/Vol] 138 mmol/L 135 - 144 mmol/L [place] Urea nitrogen [Mass/Vol] 5 mg/dL Low 6 - 20 mg/dL [place] Metabolic Panelon 06-17-2020 GFR/1.73 sq M predicted among non-blacks MDRD (S/P/Bld) [Vol rate/Area] [place] Comment on above: Average GFR for 40-4 9 years old: 99 mL/min/1.73sq m Chronic Kidney Disease: <60 mL/min/1.73sq m Kidney failure: <15 mL/min/1.73sq m eGFR calculated using average adult body mass. Additional eGFR calculator available at: http://www.[employer]/multiple_crcl_2012.htm Stage 1: Some kidney damage normal GFR Stage 2: Mild kidney damage GFR 60-89 Stage 3: Moderate kidney damage GFR 30-59 Stage 4: Severe kidney damage GFR 15-29 Stage 5: Severe kidney damage GFR <15 ESRD - chronic treatment by dialysis or transplant Protime-INRon 06-17-2020 INR Coag (PPP) [Relative time] 0.9 {INR} [place] Comment on above: Non-therapeutic Range: INR = 0.9-1.2 Therapeutic Range: Moderate Anticoagulant Intensity: INR = 2.0-3.0 High Anticoagulant Intensity: INR = 2.5-3.5 PT Coag (PPP) [Time] 12.4 s [place] Troponinon 06-17-2020 Troponin I.cardiac [Mass/Vol] NOT REPORTED [place] Troponin T.cardiac [Mass/Vol] NOT REPORTED <0.03 ng/mL [place] Troponin, High Sensitivity 6 ng/L 0 - 14 ng/L [place] Comment on above: High Sensitivity Troponin values cannot be compared with other Troponin methodologies. Patients with high levels of Biotin oral intake (i.e >5mg/day) may have falsely decreased Troponin levels. Samples collected within 8 hours of biotin intake may require additional information for diagnosis. Troponin I.cardiac [Mass/Vol] NOT REPORTED [place] Troponin T.cardiac [Mass/Vol] NOT REPORTED <0.03 ng/mL [place] Troponin, High Sensitivity <6 0 - 14 ng/L [place] Comment on above: High Sensitivity Troponin values cannot be compared with other Troponin methodologies. Patients with high levels of Biotin oral intake (i.e >5mg/day) may have falsely decreased Troponin levels. Samples collected within 8 hours of biotin intake may require additional information for diagnosis. XR CHEST PORTABLEon 06-17-20 20 [place], [place] Incoming Radiant Results From [employer] - 06/17/2020 10:47 AM EST EXAMINATION: ONE XRAY VIEW OF THE CHEST 06/17/2020 10:40 am COMPARISON: 12/28/2019 HISTORY: ORDERING SYSTEM PROVIDED HISTORY: Cp TECHNOLOGIST PROVIDED HISTORY: Cp FINDINGS: The cardiomediastinal silhouette is within normal limits. There is no consolidation, pneumothorax or evidence for edema. No evidence for effusion. No acute osseous abnormality is identified. IMPRESSION: No acute airspace disease identified. [place] EXAMINATION: ONE XRA Y VIEW OF THE CHEST 06/17/2020 10:40 am COMPARISON: 12/28/2019 HISTORY: ORDERING SYSTEM PROVIDED HISTORY: Cp TECHNOLOGIST PROVIDED HISTORY: Cp FINDINGS: The cardiomediastinal silhouette is within normal limits. There is no consolidation, pneumothorax or evidence for edema. No evidence for effusion. No acute osseous abnormality is identified. [place] No acute airspace disease identified. [place] Laboratory - Microbiology an d Antimicrobial susceptibilityOrdered By: Tao Reece on 06-04-2020 SARS-CoV-2 (COVID-19) RNA FAUSTINA+probe Ql (Resp) Not detected (Not Detected ) [facility] Work Phone: Comment on above: Note: This nucleic a deepti amplification test was developed and itsperformance characteristics determined by [facility]. Nucleic acid amplification tests include PCRand TMA. This test has not been FDA cleared or approved.This test has been authorized by FDA under an Emergency UseAuthorization (EUA). This test is only authorized forthe duration of time the declaration that circumstancesexist justifying the authorization of the emergency use ofin vitro diagnostic tests for detection of SARS-CoV-2 virusand/or diagnosis of COVID-19 infection under pdlvlru108(b)(1) of the Act, 21 U.S.C. 360bbb-3(b) (1), unless theauthorization is terminated or revoked sooner.When diagnostic testing is negative, the possibility of afalse negative result should be considered in the contextof a patient's recent exposures and the presence ofclinical signs and symptoms consistent with COVID-19. Anindividual without symptoms of COVID-19 and who is notshedding SARS-CoV-2 virus would expect to have a negative(not detected) result in this assay. Otheron 06-04-2020 SARS-CoV-2, FAUSTINA Not Detected (Not Detected) [facility] Work Phone: Comment on above: Note: This nucleic a deepti amplification test was developed and itsperformance characteristics determined by [facility]. Nucleic acid amplification tests include PCRand TMA. This test has not been FDA cleared or approved.This test has been authorized by FDA under an Emergency UseAuthorization (EUA). This test is only authorized forthe duration of time the declaration that circumstancesexist justifying the authorization of the emergency use ofin vitro diagnostic tests for detection of SARS-CoV-2 virusand/or diagnosis of COVID-19 infection under midsyva905(b)(1) of the Act, 21 U.S.C. 360bbb-3(b) (1), unless theauthorization is terminated or revoked sooner.When diagnostic testing is negative, the possibility of afalse negative result should be considered in the contextof a patient's recent exposures and the presence ofclinical signs and symptoms consistent with COVID-19. Anindividual without symptoms of COVID-19 and who is notshedding SARS-CoV-2 virus would expect to have a negative(not detected) result in this assay. Laboratory - Microbiology an d Antimicrobial susceptibilityOrdered By: Ena Fung on 05-02-2020 SARS-CoV-2 (COVID-19) RNA FAUSTINA+probe Ql (Resp) Not detected (Not Detected ) [facility] Work Phone: Comment on above: Note: This nucleic a deepti amplification test was developed and itsperformance characteristics determined by [facility]. Nucleic acid amplification tests include PCRand TMA. This test has not been FDA cleared or approved.This test has been authorized by FDA under an Emergency UseAuthorization (EUA). This test is only authorized forthe duration of time the declaration that circumstancesexist justifying the authorization of the emergency use ofin vitro diagnostic tests for detection of SARS-CoV-2 virusand/or diagnosis of COVID-19 infection under mrozerv712(b)(1) of the Act, 21 U.S.C. 360bbb-3(b) (1), unless theauthorization is terminated or revoked sooner.When diagnostic testing is negative, the possibility of afalse negative result should be considered in the contextof a patient's recent exposures and the presence ofclinical signs and symptoms consistent with COVID-19. Anindividual without symptoms of COVID-19 and who is notshedding SARS-CoV-2 virus would expect to have a negative(not detected) result in this assay. Otheron 05-02-2020 SARS-CoV-2, FAUSTINA Not Detected (Not Detected) [facility] Work Phone: Comment on above: Note: This nucleic a deepti amplification test was developed and itsperformance characteristics determined by [facility]. Nucleic acid amplification tests include PCRand TMA. This test has not been FDA cleared or approved.This test has been authorized by FDA under an Emergency UseAuthorization (EUA). This test is only authorized forthe duration of time the declaration that circumstancesexist justifying the authorization of the emergency use ofin vitro diagnostic tests for detection of SARS-CoV-2 virusand/or diagnosis of COVID-19 infection under bmnsfry010(b)(1) of the Act, 21 U.S.C. 360bbb-3(b) (1), unless theauthorization is terminated or revoked sooner.When diagnostic testing is negative, the possibility of afalse negative result should be considered in the contextof a patient's recent exposures and the presence ofclinical signs and symptoms consistent with COVID-19. Anindividual without symptoms of COVID-19 and who is notshedding SARS-CoV-2 virus would expect to have a negative(not detected) result in this assay. XR HAND RIGHT (2 VIEWS)on No acute osseous abnormality or foreign body identified. [place] EXAMINATION: TWO XRA Y VIEWS OF THE RIGHT HAND 04/28/2020 4:05 pm COMPARISON: 02/15/2017 HISTORY: ORDERING SYSTEM PROVIDED HISTORY: r/o foreign body base of 5th finger TECHNOLOGIST PROVIDED HISTORY: r/o foreign body base of 5th finger Additional history includes laceration from glass at the base of the 5th finger. FINDINGS: No fracture or malalignment identified. The joint spaces are maintained. No discrete soft tissue abnormality identified. [place], [place] Incoming Radiant Results From [employer] - 04/28/2020 4:26 PM EDT EXAMINATION: TWO XRAY VIEWS OF THE RIGHT HAND 04/28/2020 4:05 pm COMPARISON: 02/15/2017 HISTORY: ORDERING SYSTEM PROVIDED HISTORY: r/o foreign body base of 5th finger TECHNOLOGIST PROVIDED HISTORY: r/o foreign body base of 5th finger Additional history includes laceration from glass at the base of the 5th finger. FINDINGS: No fracture or malalignment identified. The joint spaces are maintained. No discrete soft tissue abnormality identified. IMPRESSION: No acute osseous abnormality or foreign body identified. [place] Estradiolon 02-14-2020 Estradiol <5 Low 27 - 314 pg/mL [place] Comment on above: FEMALES: Normally menstruating Luteal phase 33-298 Follicular phase 27-156 Midcycle phase 48-314 Postmenopausal (untreated) 5-50 Fulvestrant treatment will show an increased estradiol concentration with this methodology. Alternate methodologies are available upon request. Interpretation and review of laboratory results Abnormal [place], [place] Follicle Stimulating Hormone on 02-14-2020 FSH 40.4 U/L High 1.7 - 21.5 U/L [place], [place] Comment on above: Reference Range: Male: 1.5-12.4 Ovulating Female: Follicular Phase 3.5-12.5 Ovulation Phase 4.7-21.5 Luteal Phase 1.7-7.7 Postmenopausal Female: 25.8-134.8 Interpretation and review of laboratory results Abnormal [place] TSH with Reflexon 02-14-2020 TSH Qn 2.33 m[IU]/L [place], [place] Activated clotting timeon Activated Clotting Time 289 High M [place], [place] Interpretation and review of laboratory results Abnormal [place] Basic Metabolic Panel w/ Ref golden to MGon 12-29-2019 Anion gap [Moles/Vol] 13 mmol/L 9 - 17 mmol/L [place] Bun/Cre Ratio 19 [place], [place] Calcium [Mass/Vol] 8.8 mg/dL 8.6 - 10. 4 mg/dL [place] Chloride [Moles/Vol] 109 mmol/L High 98 - 10 7 mmol/L [place] CO2 [Moles/Vol] 20 mmol/L 20 - 31 mmol/L [place] Creatinine [Mass/Vol] 0.63 mg/dL 0.5 - 0.9 mg/dL [place] GFR >60 >60 mL/min [place] GFR Non- >60 >60 mL/min [place] Glucose [Mass/Vol] 113 mg/dL High 70 - 99 mg/dL [place] Interpretation and review of laboratory results Abnormal [place] Potassium [Moles/Vol] 3.8 mmol/L 3.7 - 5.3 mmol/L [place] Sodium [Moles/Vol] 142 mmol/L 135 - 144 mmol/L [place] Urea nitrogen [Mass/Vol] 12 mg/dL 6 - 20 mg/dL [place] COVID-19on 12-29-2019 SARS-CoV-2 [place] SARS-CoV-2, PCR [place], [place] SARS-CoV-2, Rapid Not Detected Not Detected [place] Comment on above: Rapid NAAT: The specimen is NEGATIVE for SARS-CoV-2, the novel coronavirus associated with COVID-19. Negative results should be treated as presumptive and, if inconsistent with clinical signs and symptoms or necessary for patient management, should be tested with an alternative molecular assay. Negative results do not preclude SARS-CoV-2 infection and should not be used as the sole basis for patient management decisions. Fact sheet for Healthcare Providers: https://www.fda.gov/media/428776/download Fact sheet for Patients: https://www.fda.gov/media/142732/download Methodology: Isothermal Nucleic Acid Amplification Source .NASOPHARYNGEAL SWAB [place] Cardiac Catheterizationon Cardiac Diagnostic + PCI Report Demographics Patient ADRIÁN Bee Date of Study 12/29/2019 Name Date of 1975 Gender Female Age 44 year(s) Race Room [id number]^EDWINA^MICHAEL Height: 64 inch, 162.56 cm Number Corporate [id number] Weight: 196 pounds, 88.9 kg ID # Patient [id number] BSA: 1.94 m^2 BMI: 33.64 Acct # kg/m^2 MR # [id number] Performing Physician Michael Arroyo Referring Physician # Assisting Physician Additional Comments H&P reviewed and patient examined by performing physician prior to the procedure on 12/29/2019 at No changes noted. If changes, see note below. Mallampati Classification 2 / ASA Classification II : per Physician . Patient medications reviewed by Physician prior to procedure. Procedure Procedure Type: Diagnostic procedure: IVUS:, LAD and / or branches PCI procedure: PTCA / Drug Eluting Stent:, LAD and / or branches Complications: - No complication Indications: - Angina - Worsening or changing pattern - Coronary lesion - more than 50% - Previous stent placement Conclusions Procedure Summary Successful IVUS of the LAD, new mid lesion 70%, and under sized stent in proximal mid area. Significant 90% stenosis ostial jailed D2 Successful PTCA -CHOLO and balloon dilation in previous LAD stent Successful PTCA -CHOLO ostial D2 Recommendations Post stent protocol Signature Angiographic Findings Cardiac Arteries and Lesion Findings LAD: Patent stent in proximal-mid area: This area was investigated by IVUS, suggesting undersize stent (2.75, and vessel diameter at least 3.5). Mid LAD suspicious lesion, distal to stent about 40% by angiogram and 75% by IVUS. D2: ostial jailed lesion 90% stenosis Lesion on 2nd Diag: Ostial.99% stenosis 4 mm length reduced to 0%. Pre procedure VALERIY II flow was noted. Post Procedure VALERIY III flow was present. Good runoff was present. The lesion was diagnosed as High Risk (C). Devices used - Luge Wire 182 cm. Number of passes: 1. - Mini Trek Balloon 2.0mm x 15mm. 1 inflation(s) to a max pressure of: 10 dominick. - ASAHI Prowater 190 cm. Number of passes: 1. - Xience Fern 2.5 x 8 CHOLO. 2 inflation(s) to a max pressure of: 10 dominick. Lesion on Mid LAD: Distal subsection.75% stenosis 10 mm length reduced to 0%. Pre procedure VALERIY III flow was noted. Post Procedure VALERIY III flow was present. Good runoff was present. The lesion was diagnosed as Moderate Risk (B). Comments:Proximal to this stent the 3.5 balloon was used to dilated stented area and get a great expansion and diameter at the end with VALERIY III flow Devices used - [place] Eye IVUS Bairdford Catheter (One Season). Number of passes: 1. - ASAHI Prowater 190 cm. Number of passes: 1. - Xience Fern 3.5 x 12 CHOLO. 2 inflation(s) to a max pressure of: 14 dominick. - Luge Wire 182 cm. Number of passes: 1. Coronary Tree Dominance: Left LV Analysis Procedure Data Procedure Start Time: 12/29/2019 14:57. Procedure End Time: 12/29/2019 15:23. The procedure was explained in detail to the patient. Risks, complications and alternative treatments were reviewed. Written consent was obtained. Interventional Cath Status: Urgent Entry Locations - Retrograde Percutaneous access was performed through the Right Femoral artery. A 7 Fr sheath was inserted. Hemostasis was successfully obtained using 8 Fr. Angioseal. Procedure Medications: - Versed I.V. 2 mg. - Fentanyl I.V. 50 mcg. - Lidocaine HCl 1% 10mg/ml S.Q. 10 ml. - Heparin I.V. bolus 96453 units. - Nitroglycerin I.C. 200 mcg. - Nitroglycerin I.C. 200 mcg. - Plavix P.O. 300 mg. Catheters and Wires: - 7F Guide Catheter XB 3.5 was used for Left coronary angiography. Contrast Material: - Optiray [id number] ml Fluoroscopy Time: Diagnostic: 7:58 minutes. Total: 7:58 minutes. Estimated Blood Loss: 5 ml. Medical History Allergies - Cephalosporins. Risk Factors The patient risk factors include:obesity, physical activity, hypercholesterolemia, hypertension, chronic lung disease, last creatinine: 0.6 mg/dl, creatinine clearance: 167.93 ml/min, dyslipidemia and former tobacco use. 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 Hemodynamics Condition: Baseline Room Air Estimated: 179.59Heart Rate: 50 bpm Pressure +-----+ ---+ !Site !Pressure ! +-----+ ---+ !AO !122/66 (89) ! +-----+ ---+ Shunts Oxygen Values O2 Nibnrfhw155.96O2 Cmeljoyyerx616.59 [facility]- [place], [place], [facility] Incoming Cardio Results From [facility]/ - 12/29/2019 3:33 PM EDT Cardiac Diagnostic + PCI Report Demographics Patient ADRIÁN Bee Date of Study 12/29/2019 Name Date of 1975 Gender Female Age 44 year(s) Race Room [id number]^EDWINA^MICHAEL Height: 64 inch, 162.56 cm Number Corporate [id number] Weight: 196 pounds, 88.9 kg ID # Patient [id number] BSA: 1.94 m^2 BMI: 33.64 Acct # kg/m^2 MR # [id number] Performing Physician Michael Arroyo Referring Physician # Assisting Physician Additional Comments H&P reviewed and patient examined by performing physician prior to the procedure on 12/29/2019 at No changes noted. If changes, see note below. Mallampati Classification 2 / ASA Classification II : per Physician . Patient medications reviewed by Physician prior to procedure. Procedure Procedure Type: Diagnostic procedure: IVUS:, LAD and / or branches PCI procedure: PTCA / Drug Eluting Stent:, LAD and / or branches Complications: - No complication Indications: - Angina - Worsening or changing pattern - Coronary lesion - more than 50% - Previous stent placement Conclusions Procedure Summary Successful IVUS of the LAD, new mid lesion 70%, and under sized stent in proximal mid area. Significant 90% stenosis ostial jailed D2 Successful PTCA -CHOLO and balloon dilation in previous LAD stent Successful PTCA -CHOLO ostial D2 Recommendations Post stent protocol Signature Angiographic Findings Cardiac Arteries and Lesion Findings LAD: Patent stent in proximal-mid area: This area was investigated by IVUS, suggesting undersize stent (2.75, and vessel diameter at least 3.5). Mid LAD suspicious lesion, distal to stent about 40% by angiogram and 75% by IVUS. D2: ostial jailed lesion 90% stenosis Lesion on 2nd Diag: Ostial.99% stenosis 4 mm length reduced to 0%. Pre procedure VALERIY II flow was noted. Post Procedure VALERIY III flow was present. Good runoff was present. The lesion was diagnosed as High Risk (C). Devices used - Luge Wire 182 cm. Number of passes: 1. - Mini Trek Balloon 2.0mm x 15mm. 1 inflation(s) to a max pressure of: 10 dominick. - ASAHI Prowater 190 cm. Number of passes: 1. - Xience Fern 2.5 x 8 CHOLO. 2 inflation(s) to a max pressure of: 10 dominick. Lesion on Mid LAD: Distal subsection.75% stenosis 10 mm length reduced to 0%. Pre procedure VALERIY III flow was noted. Post Procedure VALERIY III flow was present. Good runoff was present. The lesion was diagnosed as Moderate Risk (B). Comments:Proximal to this stent the 3.5 balloon was used to dilated stented area and get a great expansion and diameter at the end with VALERIY III flow Devices used - Nenana Eye IVUS Bairdford Catheter (One Season). Number of passes: 1. - ASAHI Prowater 190 cm. Number of passes: 1. - Xience Fern 3.5 x 12 CHOLO. 2 inflation(s) to a max pressure of: 14 dominick. - Luge Wire 182 cm. Number of passes: 1. Coronary Tree Dominance: Left LV Analysis Procedure Data Procedure Start Time: 12/29/2019 14:57. Procedure End Time: 12/29/2019 15:23. The procedure was explained in detail to the patient. Risks, complications and alternative treatments were reviewed. Written consent was obtained. Interventional Cath Status: Urgent Entry Locations - Retrograde Percutaneous access was performed through the Right Femoral artery. A 7 Fr sheath was inserted. Hemostasis was successfully obtained using 8 Fr. Angioseal. Procedure Medications: - Versed I.V. 2 mg. - Fentanyl I.V. 50 mcg. - Lidocaine HCl 1% 10mg/ml S.Q. 10 ml. - Heparin I.V. bolus 41646 units. - Nitroglycerin I.C. 200 mcg. - Nitroglycerin I.C. 200 mcg. - Plavix P.O. 300 mg. Catheters and Wires: - 7F Guide Catheter XB 3.5 was used for Left coronary angiography. Contrast Material: - Optiray [id number] ml Fluoroscopy Time: Diagnostic: 7:58 minutes. Total: 7:58 minutes. Estimated Blood Loss: 5 ml. Medical History Allergies - Cephalosporins. Risk Factors The patient risk factors include:obesity, physical activity, hypercholesterolemia, hypertension, chronic lung disease, last creatinine: 0.6 mg/dl, creatinine clearance: 167.93 ml/min, dyslipidemia and former tobacco use. 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 Hemodynamics Condition: Baseline Room Air Estimated: 179.59Heart Rate: 50 bpm Pressure +-----+ --- + !Site !Pressure ! +-----+ --- + !AO !122/66 (89) ! +-----+ --- + Shunts Oxygen Values O2 Hdfwbsnc628.96O2 Yomcwoejiaq932.59 [facility]- [place], [place] Diagnostic Cardiac [employer] Procedureon 12-29-2019 Cardiac Diagnostic Report Demographics Patient ADRIÁN Bee Date of Study 12/29/2019 Name Date of 1975 Gender Female Age 44 year(s) Race Room [id number]^LUXCLARK Height: 64 inch, 162.56 cm Number Corporate [id number] Weight: 195 pounds, 88.4 kg ID # Patient [id number] BSA: 1.93 m^2 BMI: 33.45 Acct # kg/m^2 MR # [id number] Performing Physician Ronan Rodriguez Referring Physician # Assisting Physician Additional Comments H&P reviewed and patient examined by performing physician prior to the procedure on 12/29/19 at 0743 No changes noted. If changes, see note below. Mallampati Classification 2 / ASA Classification II : per Physician . Patient medications reviewed by Physician prior to procedure. 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 Both arteries are jailed by a LAD stent and had severe ostial stenosis but only the D2 was probably large enough for angioplasty and/or stenting to be possible. Normal left ventricular end diastolic pressure. (LVEDP). Recommendations Consult to interventional cardiology for likely angioplasty and/or stenting of the patients severe stenosis. Signature Angiographic Findings Cardiac Arteries and Lesion Findings LMCA: Normal 0% stenosis. LAD: Lesion on 1st Diag: Ostial.95% stenosis. Comments:The size of this vessel at the location of the stenosis is quite small and therefore likely not treatable by angioplasty or stenting. Lesion on 2nd Diag: Comments:The location and size of the vessel at the location of the stenosis would likely make angioplasty and/or stenting of the blockage difficult and probably higher risk for complications. Lesion on Mid LAD: Mid subsection.40% stenosis. LCx: Mild irregularities 10-20%. RCA: Mild irregularities 10-20%. Coronary Tree Dominance: Left LV function assessed as:Normal. Ejection Fraction + +--- ---+ !Method !EF% ! + +--- ---+ !Echocardiography !55 ! + +--- ---+ Ventriculography Findings: Normal left ventricular end diastolic pressure (LVEDP) with no significant aortic valve gradient seen on pull-back across the aortic valve. Procedure Data Procedure Start Time: 12/29/2019 07:51. Procedure End Time: 12/29/2019 08:09. The procedure was explained in detail to the patient. Risks, complications and alternative treatments were reviewed. Written consent was obtained. Diagnostic Cath Status: Urgent Entry Locations - Retrograde Percutaneous access was performed through the Right Radial artery. A 6 Fr sheath was inserted. Hemostasis was successfully obtained using Pressure Dressing. Procedure Medications: - Versed I.V. 1 mg. - Fentanyl I.V. 25 mcg. - Lidocaine HCl 1% 10mg/ml S.Q. 3 ml. - Nitroglycerin S.Q. 100 mcg. - Nitroglycerin S.Q. 100 mcg. - Verapamil I.A. mg. - Heparin I.V. bolus 5000 units. Catheters and Wires: - 6 Fr. Radial TIG 4.0 was used for Right coronary angiography. - 6 Fr. Radial TIG 4.0 was used for Left coronary angiography. - 6F Catheter Straight Pigtail was used for LV Pressure. Contrast Material: - Isovue 24187 ml Fluoroscopy Time: Diagnostic: 2:01 minutes. Total: 2:01 minutes. Estimated Blood Loss: 5 ml. Medical History Performed Procedures and Imaging Results - ECGwas performed. Allergies - Cephalosporins. Risk Factors The patient risk factors include:prior PCI on 10/21/2018;obesity, physical activity, treated hypercholesterolemia, treated hypertension, family history of premature CAD, last creatinine: 0.6 mg/dl, creatinine clearance: 166.98 ml/min, dyslipidemia and prior heart failure. Admission Data Admission Date: 12/29/2019 Admission Status: Inpatient. Pre Admission Medications + +-- ----+ +----- -----+ +------- ---+ !Medication !Dosage!Times Per Day!Start date!Stop date !Comments ! + +-- ----+ +----- -----+ +------- ---+ !Aspirin !81 mg ! ! ! ! ! + +-- ----+ +----- -----+ +------- ---+ !Clopidogrel (Plavix)!75 mg ! ! ! ! ! + +-- ----+ +----- -----+ +------- ---+ !Enoxaparin (Lovenox)!40 mg ! ! ! ! ! + +-- ----+ +----- -----+ +------- ---+ -The patient shows CHF symptoms of LAIRD. -The patient's anginal syndrome was assessed as CCS IV according to the Egyptian clinical classification. Hemodynamics Condition: Baseline Room Air Estimated: 179.16Heart Rate: 51 bpm Pressure +-----+ ---+ !Site !Pressure ! +-----+ ---+ !CHAPARRO ! (82) ! +-----+ ---+ !AO !/58 (76) ! +-----+ ---+ !LV !109/0 ,8 ! +-----+ ---+ !LV !108/0 ,9 ! +-----+ ---+ Valve Gradients and Areas + +---------+- --------+---------+----- -----+---------+-------- ---+ !Valve !Peak !Mean !Area !Index !Flow !Source ! + +---------+- --------+---------+----- -----+---------+-------- ---+ !Aortic !0 !0 ! ! ! ! ! + +---------+- --------+---------+----- -----+---------+-------- ---+ !Aortic !0 !0 ! ! ! ! ! + +---------+- --------+---------+----- -----+---------+-------- ---+ Shunts Oxygen Values O2 Yqmkzznx071.96O2 Gzidtqtzeqn413.16 [facility] [place], [place], [facility] Incoming Cardio Results From [facility]/[place] - 12/29/2019 1:22 PM EDT Cardiac Diagnostic Report Demographics Patient ADRIÁN Bee Date of Study 12/29/2019 Name Date of 1975 Gender Female Age 44 year(s) Race Room [id number]^MICHAEL^RONAN Height: 64 inch, 162.56 cm Number Corporate [id number] Weight: 195 pounds, 88.4 kg ID # Patient [id number] BSA: 1.93 m^2 BMI: 33.45 Acct # kg/m^2 MR # [id number] Performing Physician Ronan Rodriguez Referring Physician # Assisting Physician Additional Comments H&P reviewed and patient examined by performing physician prior to the procedure on 12/29/19 at 0743 No changes noted. If changes, see note below. Mallampati Classification 2 / ASA Classification II : per Physician . Patient medications reviewed by Physician prior to procedure. 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 Both arteries are jailed by a LAD stent and had severe ostial stenosis but only the D2 was probably large enough for angioplasty and/or stenting to be possible. Normal left ventricular end diastolic pressure. (LVEDP). Recommendations Consult to interventional cardiology for likely angioplasty and/or stenting of the patients severe stenosis. Signature Angiographic Findings Cardiac Arteries and Lesion Findings LMCA: Normal 0% stenosis. LAD: Lesion on 1st Diag: Ostial.95% stenosis. Comments:The size of this vessel at the location of the stenosis is quite small and therefore likely not treatable by angioplasty or stenting. Lesion on 2nd Diag: Comments:The location and size of the vessel at the location of the stenosis would likely make angioplasty and/or stenting of the blockage difficult and probably higher risk for complications. Lesion on Mid LAD: Mid subsection.40% stenosis. LCx: Mild irregularities 10-20%. RCA: Mild irregularities 10-20%. Coronary Tree Dominance: Left LV function assessed as:Normal. Ejection Fraction + +--- --- + !Method !EF% ! + +--- --- + !Echocardiography !55 ! + +--- --- + Ventriculography Findings: Normal left ventricular end diastolic pressure (LVEDP) with no significant aortic valve gradient seen on pull-back across the aortic valve. Procedure Data Procedure Start Time: 12/29/2019 07:51. Procedure End Time: 12/29/2019 08:09. The procedure was explained in detail to the patient. Risks, complications and alternative treatments were reviewed. Written consent was obtained. Diagnostic Cath Status: Urgent Entry Locations - Retrograde Percutaneous access was performed through the Right Radial artery. A 6 Fr sheath was inserted. Hemostasis was successfully obtained using Pressure Dressing. Procedure Medications: - Versed I.V. 1 mg. - Fentanyl I.V. 25 mcg. - Lidocaine HCl 1% 10mg/ml S.Q. 3 ml. - Nitroglycerin S.Q. 100 mcg. - Nitroglycerin S.Q. 100 mcg. - Verapamil I.A. mg. - Heparin I.V. bolus 5000 units. Catheters and Wires: - 6 Fr. Radial TIG 4.0 was used for Right coronary angiography. - 6 Fr. Radial TIG 4.0 was used for Left coronary angiography. - 6F Catheter Straight Pigtail was used for LV Pressure. Contrast Material: - Isovue 59842 ml Fluoroscopy Time: Diagnostic: 2:01 minutes. Total: 2:01 minutes. Estimated Blood Loss: 5 ml. Medical History Performed Procedures and Imaging Results - ECGwas performed. Allergies - Cephalosporins. Risk Factors The patient risk factors include:prior PCI on 10/21/2018;obesity, physical activity, treated hypercholesterolemia, treated hypertension, family history of premature CAD, last creatinine: 0.6 mg/dl, creatinine clearance: 166.98 ml/min, dyslipidemia and prior heart failure. Admission Data Admission Date: 12/29/2019 Admission Status: Inpatient. Pre Admission Medications + +-- ----+ +----- -----+ +------- --- + !Medication !Dosage!Times Per Day!Start date!Stop date !Comments ! + +-- ----+ +----- -----+ +------- --- + !Aspirin !81 mg ! ! ! ! ! + +-- ----+ +----- -----+ +------- --- + !Clopidogrel (Plavix)!75 mg ! ! ! ! ! + +-- ----+ +----- -----+ +------- --- + !Enoxaparin (Lovenox)!40 mg ! ! ! ! ! + +-- ----+ +----- -----+ +------- --- + -The patient shows CHF symptoms of LAIRD. -The patient's anginal syndrome was assessed as CCS IV according to the Egyptian clinical classification. Hemodynamics Condition: Baseline Room Air Estimated: 179.16Heart Rate: 51 bpm Pressure +-----+ --- + !Site !Pressure ! +-----+ --- + !AO !111/62 (82) ! +-----+ --- + !AO !103/58 (76) ! +-----+ --- + !LV !109/0 ,8 ! +-----+ --- + !LV !108/0 ,9 ! +-----+ --- + Valve Gradients and Areas + +---------+- --------+---------+----- -----+---------+-------- --- + !Valve !Peak !Mean !Area !Index !Flow !Source ! + +---------+- --------+---------+----- -----+---------+-------- --- + !Aortic !0 !0 ! ! ! ! ! + +---------+- --------+---------+----- -----+---------+-------- --- + !Aortic !0 !0 ! ! ! ! ! + +---------+- --------+---------+----- -----+---------+-------- --- + Shunts Oxygen Values O2 [id number] Ocdxlldwgqn792.16 [facility], [place] EKG 12 leadon 12-29-2019 Atrial Rate 51 BPM [facility], [place] P [place] 57 degrees [facility], [place] P-R Interval 178 ms [facility], [place] Q-T Interval 494 ms [facility], [place] QRS Duration 86 ms [facility], [place] QTc Calculation (Bazett) 455 ms [facility], [place] R [place] 2 degrees [facility], [place] T [place] 26 degrees [facility], [place] Ventricular Rate 51 BPM [facility], [place], [facility] Incoming E kg Results From [facility] - 12/29/2019 8:53 AM EDT Sinus bradycardia Otherwise normal ECG When compared with ECG of 09-OCT-2019 03:52, Nonspecific T wave abnormality has replaced inverted T waves in Inferior leads Confirmed by GILMAR RICHTER [id number]) on 12/29/2019 8:53:10 AM [place], [place] Sinus bradycardia Otherwise normal ECG When compared with ECG of 09-OCT-2019 03:52, Nonspecific T wave abnormality has replaced inverted T waves in Inferior leads Confirmed by GILMAR RICHTER [id number]) on 12/29/2019 8:53:10 AM [place], [place] Lipid panel - fastingon 12-17 Cholesterol [Mass/Vol] 184 mg/dL <200 [place], [place] Comment on above: Cholesterol Guidelines: <200 Desirable 200-240 Borderline >240 Undesirable Cholesterol in HDL [Mass/Vol] 26 mg/dL Low >40 [place] Comment on above: HDL Guidelines: <40 Undesirable 40-59 Borderline >59 Desirable Cholesterol in LDL [Mass/Vol] 0 - 130 mg/dL [place] Comment on above: Calculation not jacy d for Triglyceride value greater than 400 mg/dL. Direct LDL reflexed LDL Guidelines: <100 Desirable 100-129 Near to/above Desirable 130-159 Borderline >159 Undesirable Direct (measured) LDL and calculated LDL are not interchangeable tests. Cholesterol in VLDL [Mass/Vol] NOT REPORTED 1 - 30 mg/dL [place] Cholesterol.total/Audelia sterol in HDL [Mass ratio] 7.1 {ratio} High <5 [place] Interpretation and review of laboratory results Abnormal [place] Triglyceride [Mass/Vol] 478 mg/dL High <150 [place], [place] Comment on above: Triglyceride Guidelines: <150 Desirable 150-199 Borderline 200-499 High >499 Very high Based on AHA Guidelines for fasting triglyceride, April 2012. Metabolic Panelon 12-29-2019 GFR/1.73 sq M predicted among non-blacks MDRD (S/P/Bld) [Vol rate/Area] [place], [place] Comment on above: Stage 1: Some kidney damage normal GFR Stage 2: Mild kidney damage GFR 60-89 Stage 3: Moderate kidney damage GFR 30-59 Stage 4: Severe kidney damage GFR 15-29 Stage 5: Severe kidney damage GFR <15 ESRD - chronic treatment by dialysis or transplant Average GFR for 40-4 9 years old: 99 mL/min/1.73sq m Chronic Kidney Disease: <60 mL/min/1.73sq m Kidney failure: <15 mL/min/1.73sq m eGFR calculated using average adult body mass. Additional eGFR calculator available at: http://www.[email or web address].[employer]/multiple_crcl_2012.htm CBCon 12-28-2019 Erythrocyte distribution width (RBC) [Ratio] 11.9 % 11.8 - 14.4 % [place] Hematocrit (Bld) [Volume fraction] 39.9 % 36.3 - 47.1 % [place] Hemoglobin (Bld) [Mass/Vol] 13.6 g/dL 11.9 - 15.1 g/dL [place] MCH (RBC) [Entitic mass] 30.4 pg 25.2 - 33.5 pg [place] MCHC (RBC) [Mass/Vol] 34.1 g/dL 28.4 - 34.8 g/dL [place] MCV (RBC) [Entitic vol] 89.3 fL 82.6 - 102.9 fL [place] Platelet mean volume (Bld) [Entitic vol] 10.1 fL 8.1 - 13.5 fL [place] Platelets (Bld) [#/Vol] 263 10*3/uL [place] RBC (Bld) [#/Vol] 4.47 10*6/uL 3.95 - 5.11 m/uL [place] WBC (Bld) [#/Vol] 7.3 10*3/uL [place] WBC (Bld) [#/Vol] 0.0 10*3/uL 0.0 per 100 WBC [place] Comprehensive Metabolic Pane l w/ Reflex to MGon 12-28-2019 Albumin [Mass/Vol] 4.7 g/dL 3.5 - 5.2 g/dL [place] Albumin/Globulin [Mass ratio] 2.0 {ratio} [place] ALP [Catalytic activity/Vol] 112 U/L High 35 - 104 U/L [place] ALT [Catalytic activity/Vol] 61 U/L High 5 - 33 U/L [place] Anion gap [Moles/Vol] 13 mmol/L 9 - 17 mmol/L [place] AST [Catalytic activity/Vol] 48 U/L High <32 [place] Bilirubin Ql (U) 0.42 mg/dL 0.3 - 1.2 mg/dL [place] Bun/Cre Ratio 18 [place] Calcium [Mass/Vol] 9.4 mg/dL 8.6 - 10. 4 mg/dL [place] Chloride [Moles/Vol] 101 mmol/L 98 - 10 7 mmol/L [place] CO2 [Moles/Vol] 22 mmol/L 20 - 31 mmol/L [place] Creatinine [Mass/Vol] 0.62 mg/dL 0.5 - 0.9 mg/dL [place] GFR >60 >60 mL/min [place] GFR Non- >60 >60 mL/min [place] Glucose [Mass/Vol] 93 mg/dL 70 - 99 mg/dL [place] Interpretation and review of laboratory results Abnormal [place] Potassium [Moles/Vol] 4.5 mmol/L 3.7 - 5.3 mmol/L [place] Protein [Mass/Vol] 7.1 g/dL 6.4 - 8.3 g/dL [place] Sodium [Moles/Vol] 136 mmol/L 135 - 144 mmol/L [place] Urea nitrogen [Mass/Vol] 11 mg/dL 6 - 20 mg/dL [place] Metabolic Panelon 12-28-2019 GFR/1.73 sq M predicted among non-blacks MDRD (S/P/Bld) [Vol rate/Area] [place] Comment on above: Stage 1: Some kidney damage normal GFR Stage 2: Mild kidney damage GFR 60-89 Stage 3: Moderate kidney damage GFR 30-59 Stage 4: Severe kidney damage GFR 15-29 Stage 5: Severe kidney damage GFR <15 ESRD - chronic treatment by dialysis or transplant Average GFR for 40-4 9 years old: 99 mL/min/1.73sq m Chronic Kidney Disease: <60 mL/min/1.73sq m Kidney failure: <15 mL/min/1.73sq m eGFR calculated using average adult body mass. Additional eGFR calculator available at: http://[email or web address]/multiple_crcl_2012.htm Troponinon 12-28-2019 Troponin I.cardiac [Mass/Vol] NOT REPORTED [place] Troponin T.cardiac [Mass/Vol] NOT REPORTED <0.03 ng/mL [place] Troponin, High Sensitivity <6 0 - 14 ng/L [place] Comment on above: High Sensitivity Troponin values cannot be compared with other Troponin methodologies. Patients with high levels of Biotin oral intake (i.e >5mg/day) may have falsely decreased Troponin levels. Samples collected within 8 hours of biotin intake may require additional information for diagnosis. XR CHEST STANDARD (2 VW)on 0 12-28-2019 EXAMINATION: TWO XRA Y VIEWS OF THE CHEST 12/28/2019 4:05 pm COMPARISON: August 21, 2019 HISTORY: ORDERING SYSTEM PROVIDED HISTORY: chest pain TECHNOLOGIST PROVIDED HISTORY: If not done in ER chest pain FINDINGS: No evidence of focal infiltrate, effusion, pneumothorax. Heart mediastinum appear normal. Trachea is midline. Visualized bony thorax shows no acute abnormality. [place], [place] Incoming Radiant Results From [employer] - 12/28/2019 4:16 PM EDT EXAMINATION: TWO XRAY VIEWS OF THE CHEST 12/28/2019 4:05 pm COMPARISON: August 21, 2019 HISTORY: ORDERING SYSTEM PROVIDED HISTORY: chest pain TECHNOLOGIST PROVIDED HISTORY: If not done in ER chest pain FINDINGS: No evidence of focal infiltrate, effusion, pneumothorax. Heart mediastinum appear normal. Trachea is midline. Visualized bony thorax shows no acute abnormality. IMPRESSION: Clear chest, no acute findings. Stable when compared to previous. [place] Clear chest, no acut e findings. Stable when compared to previous. [place] CBCon 10-10-2019 Erythrocyte distribution width (RBC) [Ratio] 11.9 % 11.8 - 14.4 % [place] Hematocrit (Bld) [Volume fraction] 37.1 % 36.3 - 47.1 % [place] Hemoglobin (Bld) [Mass/Vol] 12.6 g/dL 11.9 - 15.1 g/dL [place] MCH (RBC) [Entitic mass] 30.3 pg 25.2 - 33.5 pg [place] MCHC (RBC) [Mass/Vol] 34.0 g/dL 28.4 - 34.8 g/dL [place] MCV (RBC) [Entitic vol] 89.2 fL 82.6 - 102.9 fL [place] Platelet mean volume (Bld) [Entitic vol] 9.8 fL 8.1 - 13.5 fL [place] Platelets (Bld) [#/Vol] 235 10*3/uL [place] RBC (Bld) [#/Vol] 4.16 10*6/uL 3.95 - 5.11 m/uL [facility] [place] WBC (Bld) [#/Vol] 10.1 10*3/uL [facility] WBC (Bld) [#/Vol] 0.0 10*3/uL 0.0 per 100 WBC [facility] [place] EKG 12 Leadon 10-10-2019 Atrial Rate 87 BPM [facility] [place] P [place] 50 degrees [facility] [place] P-R Interval 162 ms [facility] [place] Q-T Interval 380 ms [facility] [place] QRS Duration 82 ms [facility] [place] QTc Calculation (Bazett) 457 ms [facility] [place] R [place] -5 degrees [facility] [place] T [place] 22 degrees [facility] [place] Ventricular Rate 87 BPM [facility] [place] Incoming E kg Results From [facility] - 10/10/2019 12:56 PM EDT Normal sinus rhythm Normal ECG When compared with ECG of 09-OCT-2019 10:13, Minimal criteria for Anterior infarct are no longer Present [facility] Normal sinus rhythm Normal ECG When compared with ECG of 09-OCT-2019 10:13, Minimal criteria for Anterior infarct are no longer Present [facility] EKG 12 leadon 10-10-2019 Atrial Rate 61 BPM [facility] [place] P [place] 39 degrees [facility] [place] P-R Interval 178 ms [facility] [place] Q-T Interval 446 ms [facility] [place] QRS Duration 78 ms [facility] [place] QTc Calculation (Bazett) 448 ms [facility] [place] R [place] 5 degrees [facility] [place] T [place] 1 degrees [facility] [place] Ventricular Rate 61 BPM [facility] [place] Incoming E kg Results From [facility] - 10/10/2019 12:56 PM EDT Normal sinus rhythm Cannot rule out Anterior infarct , age undetermined Abnormal ECG When compared with ECG of 21-OCT-2018 19:32, No significant change was found [facility] [place] Normal sinus rhythm Cannot rule out Anterior infarct , age undetermined Abnormal ECG When compared with ECG of 21-OCT-2018 19:32, No significant change was found [facility] [place], [place] Echo Completeon 10-10-2019 Transthoracic Echocardiography Report (TTE) Patient Name ADRIÁN Date of Study 10/09/2019 MIKE N Date of 1975 Gender Female Age 43 year(s) Race Room Number 0543 Height: 64 inch, 162.56 cm Corporate ID [id number] Weight: 169 pounds, 76.7 kg # Patient Acct [id number] BSA: 1.82 m^2 BMI: 29.01 kg/m^2 # MR # [id number] Manufacturing Applications Engineer Juli Ramírez Interpreting Physician Heladio Randolph Fellow Referring Nurse Practitioner Interpreting Referring Physician Mary Jane Oconnor MD Fellow Type of Study TTE procedure:2D Echocardiogram, M-Mode, Doppler, Color Doppler, Bubble Study. Procedure Date Date: 10/09/2019 Start: 03:57 PM Study Location: [facility] Technical Quality: Fair visualization History / Tech. Comments: Procedure explained to patient. Study done bedside in Neuro ICU. Technically difficult study. TIA, headache Patient Status: Inpatient Height: 64 inches Weight: 169 pounds BSA: 1.82 m^2 BMI: 29.01 kg/m^2 Allergies - Cephalosporins. CONCLUSIONS Summary Left ventricle is normal in size. Global left ventricular systolic function is normal. Estimated ejection fraction is 55 % . Mild left ventricular hypertrophy. Negative bubble study, no shunt noted via injection of agitated saline. Trivial pulmonic insufficiency. Signature ---- ---- ---- ---- FINDINGS Left Atrium Left atrium is normal in size. Inter-atrial septum appears so be intact. No shunt seen by color Doppler. Negative bubble study, no shunt noted via injection of agitated saline. Left Ventricle Left ventricle is normal in size. Global left ventricular systolic function is normal. Estimated ejection fraction is 55 % . Mild left ventricular hypertrophy. Right Atrium Right atrium is normal size . Right Ventricle Normal right ventricle size and function. Mitral Valve Normal mitral valve structure. No mitral regurgitation. No mitral stenosis. Aortic Valve Aortic valve structure and function normal. Aortic valve is trileaflet. No aortic insufficiency. No aortic stenosis. Tricuspid Valve Normal tricuspid valve leaflets. No tricuspid regurgitation. No tricuspid stenosis. Insignificant tricuspid regurgitation, unable to estimate RVSP. Pulmonic Valve Pulmonic valve is normal in structure and function. Trivial pulmonic insufficiency. No evidence of pulmonic stenosis. Pericardial Effusion No pericardial effusion seen. Miscellaneous Normal aortic root dimension. The ascending aorta is normal in size. E/E' average = 11.1. IVC normal diameter & inspiratory collapse indicating normal RA filling pressure . M-mode / 2D Measurements & Calculations: LVIDd:4.5 cm(3.7 - 5.6 cm) Diastolic Volume:91.1 ml LVIDs:3.2 cm(2.2 - 4.0 cm) Aortic Root:2.9 cm(2.0 - 3.7 cm) IVSd:1.2 cm(0.6 - 1.1 cm) LA Dimension: 3.2 cm(1.9 - 4.0 cm) LVPWd:1.2 cm(0.6 - 1.1 cm) LA volume/Index: 29.13 ml /16m^2 Fractional Shortenin.89 % LVOT:2.1 cm RVDd:3 cm Mitral: Aortic Valve Area (P1/2-Time): 3.61 cm^2 Peak Velocity: 1.26 m/s Peak E-Wave: 0.64 m/s Mean Velocity: 0.82 m/s Peak A-Wave: 0.74 m/s Peak Gradient: 6.35 mmHg E/A Ratio: 0.86 Mean Gradient: 4 mmHg Peak Gradient: 1.63 mmHg Mean Gradient: 1 mmHg Deceleration Time: 204 msec Area (continuity): 2.96 cm^2 P1/2t: 61 msec AV VTI: 25 cm Area (continuity): 2.96 cm^2 Mean Velocity: 0.55 m/s Pulmonic: Peak Velocity: 1.43 m/s Peak Gradient: 8.18 mmHg Diastology / Tissue Doppler Septal Wall E' velocity:0.05 m/s Septal Wall E/E':13 Lateral Wall E' velocity:0.07 m/s Lateral Wall E/E':9.2 [facility] Incoming Cardio Results From [facility]/ - 10/10/2019 9:55 AM EDT Transthoracic Echocardiography Report (TTE) Patient Name ADRIÁN Date of Study 10/09/2019 MIKE N Date of 1975 Gender Female Age 43 year(s) Race Room Number 0543 Height: 64 inch, 162.56 cm Corporate ID [id number] Weight: 169 pounds, 76.7 kg # Patient Acct [id number] BSA: 1.82 m^2 BMI: 29.01 kg/m^2 # MR # [id number] Manufacturing Applications Engineer Juli Ramírez Interpreting Physician Heladio Randolph Fellow Referring Nurse Practitioner Interpreting Referring Physician Mary Jane Oconnor MD Fellow Type of Study TTE procedure:2D Echocardiogram, M-Mode, Doppler, Color Doppler, Bubble Study. Procedure Date Date: 10/09/2019 Start: 03:57 PM Study Location: [facility] Technical Quality: Fair visualization History / Tech. Comments: Procedure explained to patient. Study done bedside in Neuro ICU. Technically difficult study. TIA, headache Patient Status: Inpatient Height: 64 inches Weight: 169 pounds BSA: 1.82 m^2 BMI: 29.01 kg/m^2 Allergies - Cephalosporins. CONCLUSIONS Summary Left ventricle is normal in size. Global left ventricular systolic function is normal. Estimated ejection fraction is 55 % . Mild left ventricular hypertrophy. Negative bubble study, no shunt noted via injection of agitated saline. Trivial pulmonic insufficiency. Signature --- - --- - --- - --- - FINDINGS Left Atrium Left atrium is normal in size. Inter-atrial septum appears so be intact. No shunt seen by color Doppler. Negative bubble study, no shunt noted via injection of agitated saline. Left Ventricle Left ventricle is normal in size. Global left ventricular systolic function is normal. Estimated ejection fraction is 55 % . Mild left ventricular hypertrophy. Right Atrium Right atrium is normal size . Right Ventricle Normal right ventricle size and function. Mitral Valve Normal mitral valve structure. No mitral regurgitation. No mitral stenosis. Aortic Valve Aortic valve structure and function normal. Aortic valve is trileaflet. No aortic insufficiency. No aortic stenosis. Tricuspid Valve Normal tricuspid valve leaflets. No tricuspid regurgitation. No tricuspid stenosis. Insignificant tricuspid regurgitation, unable to estimate RVSP. Pulmonic Valve Pulmonic valve is normal in structure and function. Trivial pulmonic insufficiency. No evidence of pulmonic stenosis. Pericardial Effusion No pericardial effusion seen. Miscellaneous Normal aortic root dimension. The ascending aorta is normal in size. E/E' average = 11.1. IVC normal diameter & inspiratory collapse indicating normal RA filling pressure . M-mode / 2D Measurements & Calculations: LVIDd:4.5 cm(3.7 - 5.6 cm) Diastolic Volume:91.1 ml LVIDs:3.2 cm(2.2 - 4.0 cm) Aortic Root:2.9 cm(2.0 - 3.7 cm) IVSd:1.2 cm(0.6 - 1.1 cm) LA Dimension: 3.2 cm(1.9 - 4.0 cm) LVPWd:1.2 cm(0.6 - 1.1 cm) LA volume/Index: 29.13 ml /16m^2 Fractional Shortenin.89 % LVOT:2.1 cm RVDd:3 cm Mitral: Aortic Valve Area (P1/2-Time): 3.61 cm^2 Peak Velocity: 1.26 m/s Peak E-Wave: 0.64 m/s Mean Velocity: 0.82 m/s Peak A-Wave: 0.74 m/s Peak Gradient: 6.35 mmHg E/A Ratio: 0.86 Mean Gradient: 4 mmHg Peak Gradient: 1.63 mmHg Mean Gradient: 1 mmHg Deceleration Time: 204 msec Area (continuity): 2.96 cm^2 P1/2t: 61 msec AV VTI: 25 cm Area (continuity): 2.96 cm^2 Mean Velocity: 0.55 m/s Pulmonic: Peak Velocity: 1.43 m/s Peak Gradient: 8.18 mmHg Diastology / Tissue Doppler Septal Wall E' velocity:0.05 m/s Septal Wall E/E':13 Lateral Wall E' velocity:0.07 m/s Lateral Wall E/E':9.2 [place] HOMOCYSTEINE, SERUMon 2019 Homocysteine 6.4 umol/L <15.0 [place] Troponinon 10-10-2019 Troponin I.cardiac [Mass/Vol] NOT REPORTED [place] Troponin T.cardiac [Mass/Vol] NOT REPORTED <0.03 ng/mL [place] Troponin, High Sensitivity <6 0 - 14 ng/L [place] Comment on above: High Sensitivity Troponin values cannot be compared with other Troponin methodologies. Patients with high levels of Biotin oral intake (i.e >5mg/day) may have falsely decreased Troponin levels. Samples collected within 8 hours of biotin intake may require additional information for diagnosis. Hemoglobin A1con 10-09-2019 Glucose [Mass/Vol] 105 mg/dL [place] Comment on above: The ADA and AACC rec ommend providing the estimated average glucose result to permit better patient understanding of their HBA1c result. HbA1c (Bld) [Mass fraction] 5.3 % 4 - 6 % [place] LDL Cholesterol, Directon Cholesterol in LDL [Mass/Vol] 99 mg/dL <100 [place] Lipid panel - fastingon 09-17 Cholesterol [Mass/Vol] 229 mg/dL High <200 [place] Comment on above: Cholesterol Guidelines: <200 Desirable 200-240 Borderline >240 Undesirable Cholesterol in HDL [Mass/Vol] 27 mg/dL Low >40 [place] Comment on above: HDL Guidelines: <40 Undesirable 40-59 Borderline >59 Desirable Cholesterol in LDL [Mass/Vol] 0 - 130 mg/dL [place] Comment on above: Calculation not jacy d for Triglyceride value greater than 400 mg/dL. Direct LDL reflexed LDL Guidelines: <100 Desirable 100-129 Near to/above Desirable 130-159 Borderline >159 Undesirable Direct (measured) LDL and calculated LDL are not interchangeable tests. Cholesterol in VLDL [Mass/Vol] 1 - 30 mg/dL [place] Cholesterol.total/Audelia sterol in HDL [Mass ratio] 8.5 {ratio} High <5 [place] Interpretation and review of laboratory results Abnormal [place] Triglyceride [Mass/Vol] 586 mg/dL High <150 [place] Comment on above: Triglyceride Guidelines: <150 Desirable 150-199 Borderline 200-499 High >499 Very high Based on AHA Guidelines for fasting triglyceride, April 2012. MRI brain without contraston 10-09-2019 [place] Incoming Radiant Results From [employer] - 10/09/2019 12:50 PM EDT EXAMINATION: MRI OF THE BRAIN WITHOUT CONTRAST 10/09/2019 12:13 pm TECHNIQUE: Multiplanar multisequence MRI of the brain was performed without the administration of intravenous contrast. COMPARISON: 04/20/2019. HISTORY: ORDERING SYSTEM PROVIDED HISTORY: R side numbness TECHNOLOGIST PROVIDED HISTORY: R side numbness Is the patient ?->No Reason for Exam: right sided numbness Initial evaluation. FINDINGS: INTRACRANIAL STRUCTURES/VENTRICLES: There is no acute infarct. No mass effect or midline shift. No evidence of an acute intracranial hemorrhage. The ventricles and sulci are normal in size and configuration. The sellar/suprasellar regions appear unremarkable. The normal signal voids within the major intracranial vessels appear maintained. ORBITS: The visualized portion of the orbits demonstrate no acute abnormality. SINUSES: The visualized paranasal sinuses and mastoid air cells are well aerated. BONES/SOFT TISSUES: The bone marrow signal intensity appears normal. The soft tissues demonstrate no acute abnormality. IMPRESSION: Unremarkable noncontrast MRI of the brain. [place] Unremarkable noncont rast MRI of the brain. [place] EXAMINATION: MRI OF THE BRAIN WITHOUT CONTRAST 10/09/2019 12:13 pm TECHNIQUE: Multiplanar multisequence MRI of the brain was performed without the administration of intravenous contrast. COMPARISON: 04/20/2019. HISTORY: ORDERING SYSTEM PROVIDED HISTORY: R side numbness TECHNOLOGIST PROVIDED HISTORY: R side numbness Is the patient ?->No Reason for Exam: right sided numbness Initial evaluation. FINDINGS: INTRACRANIAL STRUCTURES/VENTRICLES: There is no acute infarct. No mass effect or midline shift. No evidence of an acute intracranial hemorrhage. The ventricles and sulci are normal in size and configuration. The sellar/suprasellar regions appear unremarkable. The normal signal voids within the major intracranial vessels appear maintained. ORBITS: The visualized portion of the orbits demonstrate no acute abnormality. SINUSES: The visualized paranasal sinuses and mastoid air cells are well aerated. BONES/SOFT TISSUES: The bone marrow signal intensity appears normal. The soft tissues demonstrate no acute abnormality. [place] STROKE PANELon 10-09-2019 % CKMB 1.7 % 0 - 3 % [place] Anion gap [Moles/Vol] 17 mmol/L 9 - 17 mmol/L [place] aPTT Coag (Bld) [Time] 24.1 s [place] Basophils (Bld) [#/Vol] 0.05 10*3/uL [place] Basophils/100 WBC (Bld) 1 % 0 - 2 % [place] Bun/Cre Ratio NOT REPORTED [place] Calcium [Mass/Vol] 8.7 mg/dL 8.6 - 10. 4 mg/dL [place] Chloride [Moles/Vol] 101 mmol/L 98 - 10 7 mmol/L [place] CK.MB [Mass/Vol] NORMAL ISOENZYME PATTERN [place] CK.MB [Mass/Vol] 1.1 ng/mL <5.4 [place] CO2 [Moles/Vol] 20 mmol/L 20 - 31 mmol/L [place] Creatinine [Mass/Vol] 0.49 mg/dL Low 0.5 - 0.9 mg/dL [place] Differential Type NOT REPORTED [place] Eosinophils (Bld) [#/Vol] 0.15 10*3/uL [place] Eosinophils/100 WBC (Bld) 2 % 1 - 4 % [place] Erythrocyte distribution width (RBC) [Ratio] 12.1 % 11.8 - 14.4 % [place] GFR >60 >60 mL/min [place] GFR Non- >60 >60 mL/min [place] GFR/1.73 sq M predicted among non-blacks MDRD (S/P/Bld) [Vol rate/Area] NOT REPORTED [place] GFR/1.73 sq M predicted among non-blacks MDRD (S/P/Bld) [Vol rate/Area] [place] Comment on above: Average GFR for 40-4 9 years old: 99 mL/min/1.73sq m Chronic Kidney Disease: <60 mL/min/1.73sq m Kidney failure: <15 mL/min/1.73sq m eGFR calculated using average adult body mass. Additional eGFR calculator available at: http://www.[employer]_crcl_2011.htm Glucose [Mass/Vol] 103 mg/dL High 70 - 99 mg/dL [place] Hematocrit (Bld) [Volume fraction] 38.6 % 36.3 - 47.1 % [place] Hemoglobin (Bld) [Mass/Vol] 13.0 g/dL 11.9 - 15.1 g/dL [place] Immature granulocytes (Bld) [#/Vol] 1 % High 0 [place] Immature granulocytes (Bld) [#/Vol] 0.05 10*3/uL [place] INR Coag (PPP) [Relative time] 0.9 {INR} [place] Comment on above: Therapeutic Range: Moderate Anticoagulant Intensity: INR = 2.0-3.0 High Anticoagulant Intensity: INR = 2.5-3.5 Interpretation and review of laboratory results Abnormal [place] Lymphocytes (Bld) [#/Vol] 2.65 10*3/uL [place] Lymphocytes/100 WBC (Bld) 27 % 24 - 43 % [place] MCH (RBC) [Entitic mass] 30.5 pg 25.2 - 33.5 pg [place] MCHC (RBC) [Mass/Vol] 33.7 g/dL 28.4 - 34.8 g/dL [place] MCV (RBC) [Entitic vol] 90.6 fL 82.6 - 102.9 fL [place] Monocytes (Bld) [#/Vol] 0.63 10*3/uL [place] Monocytes/100 WBC (Bld) 7 % 3 - 12 % [place] Myoglobin [Mass/Vol] ng/mL Low 25 - 58 ng/mL [place] Platelet mean volume (Bld) [Entitic vol] 9.9 fL 8.1 - 13.5 fL [place] Platelets (Bld) [#/Vol] 249 10*3/uL [place] Platelets (Bld) [#/Vol] NOT REPORTED [place] Potassium [Moles/Vol] 3.9 mmol/L 3.7 - 5.3 mmol/L [place] PT Coag (PPP) [Time] 9.8 s [place] RBC (Bld) [#/Vol] 4.26 10*6/uL 3.95 - 5.11 m/uL [place] RBC morphology finding Nom (Bld) NOT REPORTED [place] Segmented neutrophils/100 WBC (Bld) 62 % 36 - 65 % [place] Segs Absolute 6.15 [place] Sodium [Moles/Vol] 138 mmol/L 135 - 144 mmol/L [place] Total CK 65 U/L 26 - 192 U/L [place] Troponin I.cardiac [Mass/Vol] NOT REPORTED [place] Troponin T.cardiac [Mass/Vol] NOT REPORTED <0.03 ng/mL [place] Troponin, High Sensitivity <6 0 - 14 ng/L [place] Comment on above: High Sensitivity Troponin values cannot be compared with other Troponin methodologies. Patients with high levels of Biotin oral intake (i.e >5mg/day) may have falsely decreased Troponin levels. Samples collected within 8 hours of biotin intake may require additional information for diagnosis. Urea nitrogen [Mass/Vol] 8 mg/dL 6 - 20 mg/dL [place] WBC (Bld) [#/Vol] 0.0 10*3/uL 0.0 per 100 WBC [place] WBC (Bld) [#/Vol] 9.7 10*3/uL [place] WBC Morphology NOT REPORTED [place] Sedimentation Rateon 020 Sed Rate 16 mm 0 - 20 mm [place] Troponinon 10-09-2019 Troponin I.cardiac [Mass/Vol] NOT REPORTED [place] Troponin T.cardiac [Mass/Vol] NOT REPORTED <0.03 ng/mL [place] Troponin, High Sensitivity <6 0 - 14 ng/L [place] Comment on above: High Sensitivity Troponin values cannot be compared with other Troponin methodologies. Patients with high levels of Biotin oral intake (i.e >5mg/day) may have falsely decreased Troponin levels. Samples collected within 8 hours of biotin intake may require additional information for diagnosis. Troponin I.cardiac [Mass/Vol] NOT REPORTED [place] Troponin T.cardiac [Mass/Vol] NOT REPORTED <0.03 ng/mL [place] Troponin, High Sensitivity <6 0 - 14 ng/L [place] Comment on above: High Sensitivity Troponin values cannot be compared with other Troponin methodologies. Patients with high levels of Biotin oral intake (i.e >5mg/day) may have falsely decreased Troponin levels. Samples collected within 8 hours of biotin intake may require additional information for diagnosis. Basic Metabolic Panel w/ Ref golden to MGon 08-29-2019 Anion gap [Moles/Vol] 14 mmol/L 9 - 17 mmol/L [facility] Work Phone: Bun/Cre Ratio 18 [facility] [employer] Work Phone: Calcium [Mass/Vol] 9.0 mg/dL 8.6 - 10. 4 mg/dL [facility] Work Phone: Chloride [Moles/Vol] 100 mmol/L 98 - 10 7 mmol/L [facility] [employer] Phone: CO2 [Moles/Vol] 24 mmol/L 20 - 31 mmol/L [facility] Work Phone: Creatinine [Mass/Vol] 0.56 mg/dL 0.5 - 0.9 mg/dL [employer] Phone: GFR >60 >60 mL/min [employer] Phone: GFR Non- >60 >60 mL/min [employer] Phone: Glucose [Mass/Vol] 150 mg/dL High 70 - 99 mg/dL [employer] Phone: Interpretation and review of laboratory results Abnormal [employer] Phone: Potassium [Moles/Vol] 3.7 mmol/L 3.7 - 5.3 mmol/L [employer] Phone: Sodium [Moles/Vol] 138 mmol/L 135 - 144 mmol/L [employer] Phone: Urea nitrogen [Mass/Vol] 10 mg/dL 6 - 20 mg/dL [employer] Phone: CBC Auto Differentialon 08-19 Basophils (Bld) [#/Vol] 0.03 10*3/uL [place] Phone: Basophils/100 WBC (Bld) 0 % 0 - 2 % M [employer] Phone: Differential Type NOT REPORTED [employer] Phone: Eosinophils (Bld) [#/Vol] 0.13 10*3/uL [employer] Phone: Eosinophils/100 WBC (Bld) 2 % 1 - 4 % [employer] Phone: Erythrocyte distribution width (RBC) [Ratio] 11.6 % Low 11.8 - 14.4 % [employer] Phone: Hematocrit (Bld) [Volume fraction] 35.6 % Low 36.3 - 47.1 % [employer] Phone: Hemoglobin (Bld) [Mass/Vol] 12.3 g/dL 11.9 - 15.1 g/dL [employer] Phone: Immature granulocytes (Bld) [#/Vol] 0.03 10*3/uL [employer] Phone: Immature granulocytes (Bld) [#/Vol] 0 % 0 [employer] Phone: Interpretation and review of laboratory results Abnormal [employer] Phone: Lymphocytes (Bld) [#/Vol] 2.09 10*3/uL [employer] Phone: Lymphocytes/100 WBC (Bld) 27 % 24 - 43 % [employer] Phone: MCH (RBC) [Entitic mass] 30.4 pg 25.2 - 33.5 pg [employer] Phone: MCHC (RBC) [Mass/Vol] 34.6 g/dL 28.4 - 34.8 g/dL [employer] Phone: MCV (RBC) [Entitic vol] 87.9 fL 82.6 - 102.9 fL [employer] Phone: Monocytes (Bld) [#/Vol] 0.39 10*3/uL [employer] Phone: Monocytes/100 WBC (Bld) 5 % 3 - 12 % M [employer] Phone: Platelet mean volume (Bld) [Entitic vol] 9.8 fL 8.1 - 13.5 fL [employer] Phone: Platelets (Bld) [#/Vol] NOT REPORTED [employer] Phone: Platelets (Bld) [#/Vol] 261 10*3/uL [employer] Phone: RBC (Bld) [#/Vol] 4.05 10*6/uL 3.95 - 5.11 m/uL [employer] Phone: RBC morphology finding Nom (Bld) NOT REPORTED [employer] Work Phone: Segmented neutrophils/100 WBC (Bld) 66 % High 36 - 65 % [employer] Work Phone: Segs Absolute 4.95 [email or web address] Work Phone: WBC (Bld) [#/Vol] 7.6 10*3/uL [employer] Work Phone: WBC (Bld) [#/Vol] 0.0 10*3/uL 0.0 per 100 WBC [employer] Work Phone: WBC Morphology NOT REPORTED [employer] [facility] Work Phone: Metabolic Panelon 08-29-2019 GFR/1.73 sq M predicted among non-blacks MDRD (S/P/Bld) [Vol rate/Area] [employer] Work Phone: Comment on above: Average GFR for 40-4 9 years old: 99 mL/min/1.73sq m Chronic Kidney Disease: <60 mL/min/1.73sq m Kidney failure: <15 mL/min/1.73sq m eGFR calculated using average adult body mass. Additional eGFR calculator available at: http://www.[employer]/multiple_crcl_2012.htm Stage 1: Some kidney damage normal GFR Stage 2: Mild kidney damage GFR 60-89 Stage 3: Moderate kidney damage GFR 30-59 Stage 4: Severe kidney damage GFR 15-29 Stage 5: Severe kidney damage GFR <15 ESRD - chronic treatment by dialysis or transplant CBC Auto DifferentialOrdered By: Janae Landon on 08-21-2019 Absolute Eos # 0.13 [email or web address] Work Phone: Absolute Immature Granulocyte 0.03 [employer] Work Phone: Absolute Lymph # 2.37 [facility] Work Phone: Absolute [place] # 0.62 [facility] Work Phone: Basophils (Bld) [#/Vol] 0.06 10*3/uL [employer] Phone: Basophils/100 WBC (Bld) 1 % 0 - 2 % M [employer] Phone: Differential Type NOT REPORTED [employer] Phone: Eosinophils/100 WBC (Bld) 1 % 1 - 4 % [employer] Phone: Erythrocyte distribution width (RBC) [Ratio] 11.4 % Low 11.8 - 14.4 % [employer] Phone: Hematocrit (Bld) [Volume fraction] 38.6 % 36.3 - 47.1 % [employer] Phone: Hemoglobin (Bld) [Mass/Vol] 13.6 g/dL 11.9 - 15.1 g/dL [employer] Phone: Immature granulocytes/100 WBC (Bld) 0 % 0 [employer] Phone: Interpretation and review of laboratory results Abnormal [employer] Phone: Lymphocytes/100 WBC (Bld) 26 % 24 - 43 % [employer] Phone: MCH (RBC) [Entitic mass] 30.6 pg 25.2 - 33.5 pg [employer] Phone: MCHC (RBC) [Mass/Vol] 35.2 g/dL High 28.4 - 34.8 g/dL [employer] Phone: MCV (RBC) [Entitic vol] 86.9 fL 82.6 - 102.9 fL [employer] Phone: Monocytes/100 WBC (Bld) 7 % 3 - 12 % M [employer] Phone: NRBC Automated 0.0 0.0 per 100 WBC [employer] Phone: Platelet Estimate NOT REPORTED [employer] Phone: Platelet mean volume (Bld) [Entitic vol] 9.8 fL 8.1 - 13.5 fL [employer] Work Phone: Platelets (Bld) [#/Vol] 279 10*3/uL [employer] Work Phone: RBC (Bld) [#/Vol] 4.44 10*6/uL 3.95 - 5.11 m/uL [employer] Work Phone: RBC morphology finding Nom (Bld) NOT REPORTED [employer] Work Phone: Segmented neutrophils/100 WBC (Bld) 65 % 36 - 65 % [employer] Work Phone: Segs Absolute 6.07 [email or web address] Work Phone: WBC (Bld) [#/Vol] 9.3 10*3/uL [employer] Work Phone: WBC Morphology NOT REPORTED [employer] [facility] Work Phone: Comprehensive Metabolic Pane lOrdered By: Janae Landon on 08-21-2019 Albumin [Mass/Vol] 4.8 g/dL 3.5 - 5.2 g/dL [employer] Phone: Albumin/Globulin [Mass ratio] 1.8 {ratio} [employer] Phone: ALP [Catalytic activity/Vol] 116 U/L High 35 - 104 U/L [employer] Work Phone: ALT [Catalytic activity/Vol] 30 U/L 5 - 33 U/L [employer] Work Phone: Anion gap [Moles/Vol] 14 mmol/L 9 - 17 mmol/L [employer] Phone: AST [Catalytic activity/Vol] 20 U/L <32 [employer] Phone: Bilirubin [Mass/Vol] 0.27 mg/dL Low 0.3 - 1 .2 mg/dL [employer] Work Phone: Bun/Cre Ratio 15 [employer] Work Phone: Calcium [Mass/Vol] 9.8 mg/dL 8.6 - 10. 4 mg/dL [employer] Phone: Chloride [Moles/Vol] 97 mmol/L Low 98 - 10 7 mmol/L [employer] Phone: CO2 [Moles/Vol] 25 mmol/L 20 - 31 mmol/L [employer] Phone: Creatinine [Mass/Vol] 0.66 mg/dL 0.5 - 0.9 mg/dL [employer] Phone: GFR >60 >60 mL/min [employer]orus Phone: GFR Comment [employer] Phone: Comment on above: Average GFR for 40-4 9 years old: 99 mL/min/1.73sq m Chronic Kidney Disease: <60 mL/min/1.73sq m Kidney failure: <15 mL/min/1.73sq m eGFR calculated using average adult body mass. Additional eGFR calculator available at: http://www.[employer]/multiple_crcl_2012.htm GFR Non- >60 >60 mL/min [employer] Phone: GFR Staging [employer] Phone: Comment on above: Stage 1: Some kidney damage normal GFR Stage 2: Mild kidney damage GFR 60-89 Stage 3: Moderate kidney damage GFR 30-59 Stage 4: Severe kidney damage GFR 15-29 Stage 5: Severe kidney damage GFR <15 ESRD - chronic treatment by dialysis or transplant Glucose [Mass/Vol] 95 mg/dL 70 - 99 mg/dL [employer] Phone: Interpretation and review of laboratory results Abnormal [employer] Phone: Potassium [Moles/Vol] 3.7 mmol/L 3.7 - 5.3 mmol/L [employer] Phone: Protein [Mass/Vol] 7.5 g/dL 6.4 - 8.3 g/dL [employer] Phone: Sodium [Moles/Vol] 136 mmol/L 135 - 144 mmol/L [employer] Work Phone: Urea nitrogen [Mass/Vol] 10 mg/dL 6 - 20 mg/dL [employer] Work Phone: D-dimer, quantitativeOrdered By: Janae Landon on 08-21-2019 D-Dimer, Quant 0.21 [email or web address] Work Phone: Comment on above: Elevated levels of D dimer can be seen in any state of coagulation activation including DVT, PE, arterial thrombosis, DIC, inflamatory disease, trauma, malignancy, sepsis, infection, hematoma, liver disease, post surgical state, , atherosclerosis, old age. When combined with a low clinical probability, a D dimer value of <0.50 mg/L is considered negative for DVT and PE (negative predictive value of 98%). EKG 12 LeadOrdered By: Eduardo Landno on 08-21-2019 Atrial Rate 70 BPM [employer] Work Phone: P [place] 51 degrees [employer] Phone: P-R Interval 164 ms [employer] Phone: Q-T Interval 408 ms [employer] Work Phone: QRS Duration 82 ms [employer] Work Phone: QTc Calculation (Bazett) 440 ms [employer] Phone: R [place] -4 degrees [employer] Phone: T [place] 24 degrees [employer] Phone: Ventricular Rate 70 BPM [employer] [facility] Work Phone: Normal sinus rhythm Possible Left atrial enlargement Left ventricular hypertrophy Abnormal ECG When compared with ECG of 19-APR-2019 17:03, Nonspecific T wave abnormality no longer evident in Anterior leads Confirmed by GILMAR RICHTER ([id number]) on 08/21/2019 1:09:43 PM [employer] Work Phone: [place], [facility] Incoming E kg Results From [facility] - 08/21/2019 1:09 PM EST Normal sinus rhythm Possible Left atrial enlargement Left ventricular hypertrophy Abnormal ECG When compared with ECG of 19-APR-2019 17:03, Nonspecific T wave abnormality no longer evident in Anterior leads Confirmed by GILMAR RICHTER ([id number]) on 08/21/2019 1:09:43 PM [employer] Work Phone: Microscopic UrinalysisOrdere d By: Janae Landon on 08-21-2019 - [employer] Work Phone: Amorphous, UA NOT REPORTED None [employer] Work Phone: Bacteria, UA TRACE Abnormal None [employer] Work Phone: Casts UA NOT REPORTED /LPF [employer] Work Phone: Crystals UA NOT REPORTED None /HPF [facility] Work Phone: Epithelial Cells UA 0 TO 2 [employer] Work Phone: Interpretation and review of laboratory results Abnormal [employer] Work Phone: Mucus, UA NOT REPORTED None [employer] Work Phone: Other Observations UA NOT REPORTED NOT REQ. [facility] Work Phone: RBC, UA 0 TO 2 [facility] Work Phone: Renal Epithelial, Urine NOT REPORTED 0 /HPF [employer] Work Phone: Trichomonas, UA NOT REPORTED None [facility] Work Phone: WBC, UA 0 TO 2 [facility] Work Phone: Yeast, UA NOT REPORTED None [employer] Work Phone: TroponinOrdered By: Janae Landon on 08-21-2019 Troponin Interp [employer] Work Phone: Comment on above: Reference Range: <0.03 Within reference range. 0.03-0.09 Possible myocardial damage. Repeat at appropriate intervals to rule out chronic elevation. >= 0.10 Indicative of myocardial damage. Patients with high levels of Biotin oral intake (i.e >5mg/day) may have falsely decreased Troponin T levels. Samples collected within 8 hours of biotin intake may require additional information for diagnosis. Troponin T <0.03 <0.03 ng/mL [employer] Work Phone: Comment on above: Troponin T results c annot be compared to Troponin-I results. Troponin, High Sensitivity NOT REPORTED 0 - 14 ng/L [employer] Phone: Troponin Interp [facility] Work Phone: Comment on above: Reference Range: <0.03 Within reference range. 0.03-0.09 Possible myocardial damage. Repeat at appropriate intervals to rule out chronic elevation. >= 0.10 Indicative of myocardial damage. Patients with high levels of Biotin oral intake (i.e >5mg/day) may have falsely decreased Troponin T levels. Samples collected within 8 hours of biotin intake may require additional information for diagnosis. Troponin T <0.03 <0.03 ng/mL [employer] Phone: Comment on above: Troponin T results c annot be compared to Troponin-I results. Troponin, High Sensitivity NOT REPORTED 0 - 14 ng/L [employer] Phone: Urinalysis Reflex to Culture Ordered By: Janae Landon on 08-21-2019 Bilirubin Urine Negative NEGATIVE [facility] Work Phone: Color, UA STRAW Abnormal YELLOW [employer] Work Phone: Glucose, Ur Negative NEGATIVE [employer] Phone: Interpretation and review of laboratory results Abnormal [employer] Phone: Ketones Ql (U) Negative NEGATIVE [facility] Work Phone: Leukocyte esterase Test strip Ql (U) Negative NEGATIVE [employer] Work Phone: Nitrite, Urine Negative NEGATIVE [facility] [employer] Work Phone: pH, UA 6.0 [facility] Work Phone: Protein, UA Negative NEGATIVE [facility] Work Phone: Specific [place], UA 1.010 [facility] [employer] Work Phone: Turbidity UA CLEAR CLEAR [facility] Work Phone: Urinalysis Comments NOT REPORTED [facility] [employer] Work Phone: Urine Hgb TRACE Abnormal NEGATIVE [facility] Work Phone: Urobilinogen, Urine Normal Normal [facility] Work Phone: XR CHEST STANDARD (2 VW)Orde red By: Janae Landon on 08-21-2019 No acute cardiopulmo nary process. [employer] Work Phone: EXAMINATION: TWO XRA Y VIEWS OF THE CHEST 08/21/2019 10:22 am COMPARISON: Chest radiograph performed 04/19/2019. HISTORY: ORDERING SYSTEM PROVIDED HISTORY: Chest pain TECHNOLOGIST PROVIDED HISTORY: Chest pain FINDINGS: There is no acute consolidation or effusion. There is no pneumothorax. The mediastinal structures are unremarkable. The upper abdomen is unremarkable. The extrathoracic soft tissues are unremarkable. There is no acute osseous abnormality. [employer] Work Phone: [place], [facility] Incoming Radiant Results From [employer] - 08/21/2019 10:31 AM EST EXAMINATION: TWO XRAY VIEWS OF THE CHEST 08/21/2019 10:22 am COMPARISON: Chest radiograph performed 04/19/2019. HISTORY: ORDERING SYSTEM PROVIDED HISTORY: Chest pain TECHNOLOGIST PROVIDED HISTORY: Chest pain FINDINGS: There is no acute consolidation or effusion. There is no pneumothorax. The mediastinal structures are unremarkable. The upper abdomen is unremarkable. The extrathoracic soft tissues are unremarkable. There is no acute osseous abnormality. IMPRESSION: No acute cardiopulmonary process. [employer] Phone: MANDY SCREEN WITH REFLEXon Interpretation and review of laboratory results Abnormal [place] Nuclear Ab IF (S) [Titer] Positive Abnormal NEGATIVE [place] MANDY profileon 04-21-2019 MANDY Reference Range: [place], [place] Comment on above: The following refere nce range is applicable for MANDY antibodies, including: Anti-Reza (Sm), Anti-FORM GRADER OPERATOR, Anti-Scleroderma (Scl-70), Anti-Sjogren A (SSA), Anti-Sjogren B (SSB), Anti-Deya, Anti-Centromere, Anti-Histone REFERENCE RANGE: Negative <100 U/mL Positive >120 U/mL Equivocal 100-120 U/mL The following reference range is applicable for Anti-Double Strand DNA (dsDNA): REFERENCE RANGE: Negative <100 IU/mL Positive >120 IU/mL Equivocal 100-120 IU/mL Anti ds DNA 10 <100 IU/mL [place] Anti Histone 14 U/mL <100 [place], [place] Anti DEYA-1 11 U/mL <100 [place] Anti FORM GRADER OPERATOR 488 U/mL High <100 [place] Anti SSA 9 U/mL <100 [facility], [place] Anti SSB 13 U/mL <100 [facility], [place] Anti-Centromere 5 U/mL <100 [place] Anti-Scleroderma 15 U/mL <100 [facility], [place] Anti-Reza 18 U/mL <100 [place] Interpretation and review of laboratory results Abnormal [place] POC Glucose Fingerstickon Glucose [Mass/Vol] 153 mg/dL High 65 - 105 mg/dL [place] Interpretation and review of laboratory results Abnormal [place] Glucose [Mass/Vol] 126 mg/dL High 65 - 105 mg/dL [place] Interpretation and review of laboratory results Abnormal [place] Glucose [Mass/Vol] 148 mg/dL High 65 - 105 mg/dL [place] Interpretation and review of laboratory results Abnormal [place] BASIC METABOLIC PANELon 10- Anion gap [Moles/Vol] 17 mmol/L 9 - 17 mmol/L [place] Bun/Cre Ratio NOT REPORTED [facility] [place] [place] Calcium [Mass/Vol] 9.5 mg/dL 8.6 - 10. 4 mg/dL [place] Chloride [Moles/Vol] 102 mmol/L 98 - 10 7 mmol/L [place] CO2 [Moles/Vol] 18 mmol/L Low 20 - 31 mmol/L [place] Creatinine [Mass/Vol] 0.52 mg/dL 0.5 - 0.9 mg/dL [place] GFR >60 >60 mL/min [place] GFR Non- >60 >60 mL/min [place] GFR/1.73 sq M predicted among non-blacks MDRD (S/P/Bld) [Vol rate/Area] NOT REPORTED [place] GFR/1.73 sq M predicted among non-blacks MDRD (S/P/Bld) [Vol rate/Area] [place] Comment on above: Average GFR for 40-4 9 years old: 99 mL/min/1.73sq m Chronic Kidney Disease: <60 mL/min/1.73sq m Kidney failure: <15 mL/min/1.73sq m eGFR calculated using average adult body mass. Additional eGFR calculator available at: http://www.[employer]/multiple_crcl_2012.htm Glucose [Mass/Vol] 146 mg/dL High 70 - 99 mg/dL [place] Interpretation and review of laboratory results Abnormal [place] Potassium [Moles/Vol] 4.4 mmol/L 3.7 - 5.3 mmol/L [place] Sodium [Moles/Vol] 137 mmol/L 135 - 144 mmol/L [place] Urea nitrogen [Mass/Vol] 9 mg/dL 6 - 20 mg/dL [place] CBCon 04-20-2019 Erythrocyte distribution width (RBC) [Ratio] 12.4 % 11.8 - 14.4 % [place] Hematocrit (Bld) [Volume fraction] 42.4 % 36.3 - 47.1 % [place] Hemoglobin (Bld) [Mass/Vol] 13.0 g/dL 11.9 - 15.1 g/dL [place] Interpretation and review of laboratory results Abnormal [place] MCH (RBC) [Entitic mass] 31.7 pg 25.2 - 33.5 pg [place] MCHC (RBC) [Mass/Vol] 30.7 g/dL 28.4 - 34.8 g/dL [place] MCV (RBC) [Entitic vol] 103.4 fL High 82.6 - 102.9 fL [place] Platelet mean volume (Bld) [Entitic vol] 10.7 fL 8.1 - 13.5 fL [place] Platelets (Bld) [#/Vol] 240 10*3/uL [place] RBC (Bld) [#/Vol] 4.10 10*6/uL 3.95 - 5.11 m/uL [place] WBC (Bld) [#/Vol] 0.0 10*3/uL 0.0 per 100 WBC [place] WBC (Bld) [#/Vol] 15.1 10*3/uL [place] ABDOMEN PELVIS W IV CONTR AST Additional Contrast? Noneon 04-20-2019 Cholesterol [Mass/Vol] Normal appendix. No bowel obstruction. Prior cholecystectomy and hysterectomy. Trace nonspecific free fluid in the posterior pelvis may be physiologic. [place], [facility] Incoming Radiant Results From [employer] - 04/20/2019 12:16 AM EDT EXAMINATION: CT OF THE ABDOMEN AND PELVIS WITH CONTRAST 04/19/2019 11:39 pm TECHNIQUE: CT of the abdomen and pelvis was performed with the administration of intravenous contrast. Multiplanar reformatted images are provided for review. Dose modulation, iterative reconstruction, and/or weight based adjustment of the mA/kV was utilized to reduce the radiation dose to as low as reasonably achievable. COMPARISON: December 02, 2018. HISTORY: ORDERING SYSTEM PROVIDED HISTORY: Appy? TECHNOLOGIST PROVIDED HISTORY: Reason for Exam: R/O APPY Acuity: Unknown Type of Exam: Unknown FINDINGS: Suboptimal evaluation of the solid abdominal organs and vasculature due to lack of intravenous contrast. Lower Chest: No acute abnormality. Liver: Normal. Gallbladder and Bile Ducts: Prior cholecystectomy. Spleen: Normal. Adrenal Glands: Normal. Pancreas: Normal. Genitourinary: Both kidneys are symmetric in size and enhancement. No urinary stones or hydronephrosis. No suspicious renal mass. Normal urinary bladder. Prior hysterectomy. Bowel: Normal caliber bowel. Normal appendix. No significant diverticular disease. Vasculature: Normal. Bones and Soft Tissues: Postsurgical changes of multilevel fusion in the lower lumbar spine. L5-S1 paired transpedicular screws with spanning longitudinal rods. Retroperitoneum/Mesenter y: No intraperitoneal free air. Trace nonspecific free fluid in the posterior pelvis. No lymphadenopathy in the abdomen or pelvis. IMPRESSION: Normal appendix. No bowel obstruction. Prior cholecystectomy and hysterectomy. Trace nonspecific free fluid in the posterior pelvis may be physiologic. [place] EXAMINATION: CT OF T HE ABDOMEN AND PELVIS WITH CONTRAST 04/19/2019 11:39 pm TECHNIQUE: CT of the abdomen and pelvis was performed with the administration of intravenous contrast. Multiplanar reformatted images are provided for review. Dose modulation, iterative reconstruction, and/or weight based adjustment of the mA/kV was utilized to reduce the radiation dose to as low as reasonably achievable. COMPARISON: December 02, 2018. HISTORY: ORDERING SYSTEM PROVIDED HISTORY: Appy? TECHNOLOGIST PROVIDED HISTORY: Reason for Exam: R/O APPY Acuity: Unknown Type of Exam: Unknown FINDINGS: Suboptimal evaluation of the solid abdominal organs and vasculature due to lack of intravenous contrast. Lower Chest: No acute abnormality. Liver: Normal. Gallbladder and Bile Ducts: Prior cholecystectomy. Spleen: Normal. Adrenal Glands: Normal. Pancreas: Normal. Genitourinary: Both kidneys are symmetric in size and enhancement. No urinary stones or hydronephrosis. No suspicious renal mass. Normal urinary bladder. Prior hysterectomy. Bowel: Normal caliber bowel. Normal appendix. No significant diverticular disease. Vasculature: Normal. Bones and Soft Tissues: Postsurgical changes of multilevel fusion in the lower lumbar spine. L5-S1 paired transpedicular screws with spanning longitudinal rods. Retroperitoneum/Mesenter y: No intraperitoneal free air. Trace nonspecific free fluid in the posterior pelvis. No lymphadenopathy in the abdomen or pelvis. [place] HEMOGLOBIN A1Con 04-20-2019 Glucose [Mass/Vol] 111 mg/dL [place] Comment on above: The ADA and AACC rec ommend providing the estimated average glucose result to permit better patient understanding of their HBA1c result. HbA1c (Bld) [Mass fraction] 5.5 % 4 - 6 % [place] MRI Brain WO Contraston 10-0 [place], [facility] Incoming Radiant Results From [employer] - 04/20/2019 9:41 AM EDT EXAMINATION: MRI OF THE BRAIN WITHOUT CONTRAST 04/20/2019 9:27 am TECHNIQUE: Multiplanar multisequence MRI of the brain was performed without the administration of intravenous contrast. COMPARISON: CT brain performed 04/19/2019. MRI brain performed 11/06/2016. HISTORY: ORDERING SYSTEM PROVIDED HISTORY: NEURO DEFICIT(S), SUBACUTE, PROGRESSIVE OR FLUCTUATING TECHNOLOGIST PROVIDED HISTORY: Is the patient ?->No FINDINGS: INTRACRANIAL STRUCTURES/VENTRICLES: The sellar and suprasellar structures, optic chiasm, corpus callosum, pineal gland, tectum, and midline brainstem structures are unremarkable. The craniocervical junction is unremarkable. There is no acute intracranial hemorrhage, mass effect, or midline shift. There is satisfactory overall mendez-white matter differentiation. The ventricular structures are symmetric and unremarkable. The infratentorial structures including the cerebellopontine angles and internal auditory canals are unremarkable. There is no abnormal restricted diffusion. There is no abnormal blooming artifact on susceptibility weighted imaging. ORBITS: The visualized portion of the orbits demonstrate no acute abnormality. SINUSES: The visualized paranasal sinuses and mastoid air cells are well aerated. BONES/SOFT TISSUES: The bone marrow signal intensity appears normal. The soft tissues demonstrate no acute abnormality. IMPRESSION: Unremarkable MRI of the brain. [place] EXAMINATION: MRI OF THE BRAIN WITHOUT CONTRAST 04/20/2019 9:27 am TECHNIQUE: Multiplanar multisequence MRI of the brain was performed without the administration of intravenous contrast. COMPARISON: CT brain performed 04/19/2019. MRI brain performed 11/06/2016. HISTORY: ORDERING SYSTEM PROVIDED HISTORY: NEURO DEFICIT(S), SUBACUTE, PROGRESSIVE OR FLUCTUATING TECHNOLOGIST PROVIDED HISTORY: Is the patient ?->No FINDINGS: INTRACRANIAL STRUCTURES/VENTRICLES: The sellar and suprasellar structures, optic chiasm, corpus callosum, pineal gland, tectum, and midline brainstem structures are unremarkable. The craniocervical junction is unremarkable. There is no acute intracranial hemorrhage, mass effect, or midline shift. There is satisfactory overall mendez-white matter differentiation. The ventricular structures are symmetric and unremarkable. The infratentorial structures including the cerebellopontine angles and internal auditory canals are unremarkable. There is no abnormal restricted diffusion. There is no abnormal blooming artifact on susceptibility weighted imaging. ORBITS: The visualized portion of the orbits demonstrate no acute abnormality. SINUSES: The visualized paranasal sinuses and mastoid air cells are well aerated. BONES/SOFT TISSUES: The bone marrow signal intensity appears normal. The soft tissues demonstrate no acute abnormality. [place] Unremarkable MRI of the brain. [place] POC Glucose Fingerstickon Glucose [Mass/Vol] 114 mg/dL High 65 - 105 mg/dL [place] Interpretation and review of laboratory results Abnormal [place] Glucose [Mass/Vol] 146 mg/dL High 65 - 105 mg/dL [place] Interpretation and review of laboratory results Abnormal [place] Glucose [Mass/Vol] 132 mg/dL High 65 - 105 mg/dL [place] Interpretation and review of laboratory results Abnormal [place] Glucose [Mass/Vol] 136 mg/dL High 65 - 105 mg/dL [place] Interpretation and review of laboratory results Abnormal [place] RHEUMATOID FACTORon 04-20-20 19 Rheumatoid Factor <10 <14 IU/mL [place], [place] Sedimentation Rateon 019 Sed Rate 12 mm 0 - 20 mm [place] APTTon 04-19-2019 aPTT Coag (Bld) [Time] 25.2 [place] Basic Metabolic Panelon Anion gap [Moles/Vol] 17 mmol/L 9 - 17 mmol/L [place] Bun/Cre Ratio 17 [place] Calcium [Mass/Vol] 9.2 mg/dL 8.6 - 10. 4 mg/dL [place] Chloride [Moles/Vol] 102 mmol/L 98 - 10 7 mmol/L [place] CO2 [Moles/Vol] 22 mmol/L 20 - 31 mmol/L [place] Creatinine [Mass/Vol] 0.59 mg/dL 0.5 - 0.9 mg/dL [place] GFR >60 >60 mL/min [place] GFR Non- >60 >60 mL/min [place] Glucose [Mass/Vol] 115 mg/dL High 70 - 99 mg/dL [place] Interpretation and review of laboratory results Abnormal [place] Potassium [Moles/Vol] 3.3 mmol/L Low 3.7 - 5.3 mmol/L [place] Sodium [Moles/Vol] 141 mmol/L 135 - 144 mmol/L [place] Urea nitrogen [Mass/Vol] 10 mg/dL 6 - 20 mg/dL [place] Brain Natriuretic Peptideon 04-19-2019 Natriuretic peptide B (Bld) [Mass/Vol] Pro-BNP Reference Range: [place] Comment on above: Rule Out: <300 [place] Zone: Age <50 300-450 Age 50-75 300-900 Age >75 300-1800 Usually represents mild to moderate HF but other cardiopulmonary causes cannot be ruled out. Rule In: Age <50 >450 Age 50-75 >900 Age >75 >1800 Natriuretic peptide B (Bld) [Mass/Vol] 57 pg/mL <300 [place] Comment on above: Pro-BNP results alirio ot be compared to BNP results. C-REACTIVE PROTEINon 019 CRP [Mass/Vol] 4.9 mg/L 0 - 5 mg/L [place] CBCon 04-19-2019 Erythrocyte distribution width (RBC) [Ratio] 11.9 % 11.8 - 14.4 % [place] Hematocrit (Bld) [Volume fraction] 35.3 % Low 36.3 - 47.1 % [place] Hemoglobin (Bld) [Mass/Vol] 12.3 g/dL 11.9 - 15.1 g/dL [place] Interpretation and review of laboratory results Abnormal [place] MCH (RBC) [Entitic mass] 30.8 pg 25.2 - 33.5 pg [place] MCHC (RBC) [Mass/Vol] 34.8 g/dL 28.4 - 34.8 g/dL [place] MCV (RBC) [Entitic vol] 88.5 fL 82.6 - 102.9 fL [place] Platelet mean volume (Bld) [Entitic vol] 10.0 fL 8.1 - 13.5 fL [place] Platelets (Bld) [#/Vol] 261 10*3/uL [place] RBC (Bld) [#/Vol] 3.99 10*6/uL 3.95 - 5.11 m/uL [place] WBC (Bld) [#/Vol] 0.0 10*3/uL 0.0 per 100 WBC [place] WBC (Bld) [#/Vol] 7.9 10*3/uL [place] CBC Auto Differentialon 10-0 Basophils (Bld) [#/Vol] 0.03 10*3/uL [place] Basophils/100 WBC (Bld) 0 % 0 - 2 % [place] Differential Type NOT REPORTED [place] Eosinophils (Bld) [#/Vol] 10*3/uL [place] Eosinophils/100 WBC (Bld) 0 % Low 1 - 4 % [place] Erythrocyte distribution width (RBC) [Ratio] 11.9 % 11.8 - 14.4 % [place] Hematocrit (Bld) [Volume fraction] 37.4 % 36.3 - 47.1 % [place] Hemoglobin (Bld) [Mass/Vol] 13.0 g/dL 11.9 - 15.1 g/dL [place] Immature granulocytes (Bld) [#/Vol] 1 % High 0 [place] Immature granulocytes (Bld) [#/Vol] 0.06 10*3/uL [place] Interpretation and review of laboratory results Abnormal [place] Lymphocytes (Bld) [#/Vol] 1.00 10*3/uL [place] Lymphocytes/100 WBC (Bld) 11 % Low 24 - 43 % [place] MCH (RBC) [Entitic mass] 30.2 pg 25.2 - 33.5 pg [place] MCHC (RBC) [Mass/Vol] 34.8 g/dL 28.4 - 34.8 g/dL [place] MCV (RBC) [Entitic vol] 86.8 fL 82.6 - 102.9 fL [place] Monocytes (Bld) [#/Vol] 0.11 10*3/uL [place] Monocytes/100 WBC (Bld) 1 % Low 3 - 12 % [place] Platelet mean volume (Bld) [Entitic vol] 10.2 fL 8.1 - 13.5 fL [place] Platelets (Bld) [#/Vol] NOT REPORTED [place] Platelets (Bld) [#/Vol] 285 10*3/uL [place] RBC (Bld) [#/Vol] 4.31 10*6/uL 3.95 - 5.11 m/uL [place] RBC morphology finding Nom (Bld) NOT REPORTED [place] Segmented neutrophils/100 WBC (Bld) 87 % High 36 - 65 % [place] Segs Absolute 7.79 [place] WBC (Bld) [#/Vol] 9.0 10*3/uL [place] WBC (Bld) [#/Vol] 0.0 10*3/uL 0.0 per 100 WBC [place] WBC Morphology NOT REPORTED [place], [place] CT Head WO Contraston 2018 [place], [facility] Incoming Radiant Results From [employer] - 04/19/2019 1:52 PM EDT EXAMINATION: CT OF THE HEAD WITHOUT CONTRAST 04/19/2019 1:43 pm TECHNIQUE: CT of the head was performed without the administration of intravenous contrast. Dose modulation, iterative reconstruction, and/or weight based adjustment of the mA/kV was utilized to reduce the radiation dose to as low as reasonably achievable. COMPARISON: November 05, 2016 HISTORY: ORDERING SYSTEM PROVIDED HISTORY: headache, paresthesia TECHNOLOGIST PROVIDED HISTORY: Is the patient ?->No FINDINGS: BRAIN/VENTRICLES: There is no acute intracranial hemorrhage, mass effect or midline shift. No abnormal extra-axial fluid collection. The mendez-white differentiation is maintained without evidence of an acute infarct. There is no evidence of hydrocephalus. ORBITS: The visualized portion of the orbits demonstrate no acute abnormality. SINUSES: The visualized paranasal sinuses and mastoid air cells demonstrate no acute abnormality. SOFT TISSUES/SKULL: No acute abnormality of the visualized skull or soft tissues. IMPRESSION: No acute intracranial abnormality. [place] No acute intracrania l abnormality. [place] EXAMINATION: CT OF T HE HEAD WITHOUT CONTRAST 04/19/2019 1:43 pm TECHNIQUE: CT of the head was performed without the administration of intravenous contrast. Dose modulation, iterative reconstruction, and/or weight based adjustment of the mA/kV was utilized to reduce the radiation dose to as low as reasonably achievable. COMPARISON: November 05, 2016 HISTORY: ORDERING SYSTEM PROVIDED HISTORY: headache, paresthesia TECHNOLOGIST PROVIDED HISTORY: Is the patient ?->No FINDINGS: BRAIN/VENTRICLES: There is no acute intracranial hemorrhage, mass effect or midline shift. No abnormal extra-axial fluid collection. The mendez-white differentiation is maintained without evidence of an acute infarct. There is no evidence of hydrocephalus. ORBITS: The visualized portion of the orbits demonstrate no acute abnormality. SINUSES: The visualized paranasal sinuses and mastoid air cells demonstrate no acute abnormality. SOFT TISSUES/SKULL: No acute abnormality of the visualized skull or soft tissues. [place] CTA HEAD NECK W CONTRASTon 1 [place], [facility] Incoming Radiant Results From [employer] - 04/19/2019 3:48 PM EDT EXAMINATION: CTA OF THE HEAD AND NECK WITH CONTRAST 04/19/2019 2:58 pm: TECHNIQUE: CTA of the head and neck was performed with the administration of intravenous contrast. Multiplanar reformatted images are provided for review. MIP images are provided for review. Stenosis of the internal carotid arteries measured using NASCET criteria. Dose modulation, iterative reconstruction, and/or weight based adjustment of the mA/kV was utilized to reduce the radiation dose to as low as reasonably achievable. COMPARISON: None. HISTORY: ORDERING SYSTEM PROVIDED HISTORY: headache, tingling/numbness on L hand and L tongue FINDINGS: CTA NECK: AORTIC ARCH/ARCH VESSELS: There is a normal branch pattern of the aortic arch. No significant stenosis is seen of the innominate artery or subclavian arteries. CAROTID ARTERIES: The common carotid arteries are normal in appearance without evidence of a flow limiting stenosis. There is beading of both cervical ICAs which may reflect fibromuscular dysplasia (FMD) or arteritis. No dissection or arterial injury is seen. VERTEBRAL ARTERIES: The vertebral arteries both arise from the subclavian arteries and are normal in caliber without evidence of flow limiting stenosis or dissection. SOFT TISSUES: The lung apices are clear. No cervical or superior mediastinal lymphadenopathy. The visualized portion of the larynx and pharynx appear unremarkable. The parotid, submandibular and thyroid glands demonstrate no acute abnormality. BONES: There are degenerative changes of the spine. CTA HEAD: ANTERIOR CIRCULATION: The internal carotid arteries are normal in course and caliber without focal stenosis. The anterior cerebral and middle cerebral arteries demonstrate no focal stenosis. Bilateral posterior communicating arteries are present. POSTERIOR CIRCULATION: The posterior cerebral arteries demonstrate no focal stenosis. The vertebral and basilar arteries appear unremarkable. BRAIN: See separately dictated noncontrast head CT report. IMPRESSION: Mild beading of both cervical ICAs which may reflect FMD or arteritis. No flow limiting stenosis or large vessel occlusion visualized within the head or neck. [place] Mild beading of both cervical ICAs which may reflect FMD or arteritis. No flow limiting stenosis or large vessel occlusion visualized within the head or neck. [place] EXAMINATION: CTA OF THE HEAD AND NECK WITH CONTRAST 04/19/2019 2:58 pm: TECHNIQUE: CTA of the head and neck was performed with the administration of intravenous contrast. Multiplanar reformatted images are provided for review. MIP images are provided for review. Stenosis of the internal carotid arteries measured using NASCET criteria. Dose modulation, iterative reconstruction, and/or weight based adjustment of the mA/kV was utilized to reduce the radiation dose to as low as reasonably achievable. COMPARISON: None. HISTORY: ORDERING SYSTEM PROVIDED HISTORY: headache, tingling/numbness on L hand and L tongue FINDINGS: CTA NECK: AORTIC ARCH/ARCH VESSELS: There is a normal branch pattern of the aortic arch. No significant stenosis is seen of the innominate artery or subclavian arteries. CAROTID ARTERIES: The common carotid arteries are normal in appearance without evidence of a flow limiting stenosis. There is beading of both cervical ICAs which may reflect fibromuscular dysplasia (FMD) or arteritis. No dissection or arterial injury is seen. VERTEBRAL ARTERIES: The vertebral arteries both arise from the subclavian arteries and are normal in caliber without evidence of flow limiting stenosis or dissection. SOFT TISSUES: The lung apices are clear. No cervical or superior mediastinal lymphadenopathy. The visualized portion of the larynx and pharynx appear unremarkable. The parotid, submandibular and thyroid glands demonstrate no acute abnormality. BONES: There are degenerative changes of the spine. CTA HEAD: ANTERIOR CIRCULATION: The internal carotid arteries are normal in course and caliber without focal stenosis. The anterior cerebral and middle cerebral arteries demonstrate no focal stenosis. Bilateral posterior communicating arteries are present. POSTERIOR CIRCULATION: The posterior cerebral arteries demonstrate no focal stenosis. The vertebral and basilar arteries appear unremarkable. BRAIN: See separately dictated noncontrast head CT report. [place] CardiacOrdered By: Ena rock on 04-19-2019 Natriuretic peptide B (Bld) [Mass/Vol] 57 pg/mL (<300 ) [facility] Work Phone: Comment on above: Note: Pro-BNP result s cannot be compared to BNP results.Responsible Observer: [employer] ([id number]) [facility]acon 04-19-2019 Natriuretic peptide B (Bld) [Mass/Vol] Pro-BNP Reference Range: [facility] Work Phone: Comment on above: Note: Rule Out: <300 Mitchell Zone:Age <50 300-450Age 50-75 300-900Age >75 300-1800Usually represents mild to moderate HF but other cardiopulmonary causes cannotbe ruled out.Rule In:Age <50 >450Age 50-75 >900Age >75 >1800Responsible Observer: [employer] ([id number]) Troponin I.cardiac [Mass/Vol] See Note [facility] Work Phone: Comment on above: Note: Reference Rang e:<0.03 Within reference range.0.03-0.09 Possible myocardial damage.Repeat at appropriate intervals to rule out chronic elevation.>= 0.10 Indicative of myocardial damage.Patients with high levels of Biotin oral intake (i.e >5mg/day) may have falselydecreased Troponin T levels. Samples collected within 8 hours of biotin intakemay require additional information for diagnosis.Responsible Observer: [employer] (1258) Troponin T.cardiac [Mass/Vol] <0.03 ng/mL (<0.03) [facility] Work Phone: Comment on above: Note: Troponin T res ults cannot be compared to Troponin-I results.Responsible Observer: [employer] (4116) Comprehensive Metabolic Pane misti 04-19-2019 Albumin [Mass/Vol] 4.4 g/dL 3.5 - 5.2 g/dL [place] Albumin/Globulin [Mass ratio] 1.5 {ratio} [place] ALP [Catalytic activity/Vol] 99 U/L 35 - 104 U/L [place] ALT [Catalytic activity/Vol] 43 U/L High 5 - 33 U/L [place] Anion gap [Moles/Vol] 13 mmol/L 9 - 17 mmol/L [place] AST [Catalytic activity/Vol] 29 U/L <32 [place] Bilirubin Ql (U) 0.44 mg/dL 0.3 - 1.2 mg/dL [place] Bun/Cre Ratio NOT REPORTED [place] Calcium [Mass/Vol] 9.1 mg/dL 8.6 - 10. 4 mg/dL [place] Chloride [Moles/Vol] 102 mmol/L 98 - 10 7 mmol/L [place] CO2 [Moles/Vol] 22 mmol/L 20 - 31 mmol/L [place] Creatinine [Mass/Vol] 0.53 mg/dL 0.5 - 0.9 mg/dL [place] GFR >60 >60 mL/min [place] GFR Non- >60 >60 mL/min [place] GFR/1.73 sq M predicted among non-blacks MDRD (S/P/Bld) [Vol rate/Area] [place] Comment on above: Average GFR for 40-4 9 years old: 99 mL/min/1.73sq m Chronic Kidney Disease: <60 mL/min/1.73sq m Kidney failure: <15 mL/min/1.73sq m eGFR calculated using average adult body mass. Additional eGFR calculator available at: http://www.[employer]/multiple_crcl_2012.htm GFR/1.73 sq M predicted among non-blacks MDRD (S/P/Bld) [Vol rate/Area] NOT REPORTED [place] Glucose [Mass/Vol] 144 mg/dL High 70 - 99 mg/dL [place] Interpretation and review of laboratory results Abnormal [place] Potassium [Moles/Vol] 3.5 mmol/L Low 3.7 - 5.3 mmol/L [place] Protein [Mass/Vol] 7.3 g/dL 6.4 - 8.3 g/dL [place] Sodium [Moles/Vol] 137 mmol/L 135 - 144 mmol/L [place] Urea nitrogen [Mass/Vol] 9 mg/dL 6 - 20 mg/dL [place] HCG Qualitative, Serumon hCG Qual Negative NEGATIVE [place] Comment on above: Specimens with hCG l evels near the threshold of the test (25 mIU/mL) may give a negative or indeterminate result. In such cases, another test should be performed with a new specimen in 48-72 hours. If early is suspected clinically in this setting, correlation with quantitative serum b-hCG level is suggested. [employer] has confirmed the use of plasma for this test. This has not been cleared or approved by the U.S. Food and Drug Administration. The FDA has determined that such clearance is not necessary. HematologyOrdered By: Ena Fung on 04-19-2019 aPTT Coag (Bld) [Time] 25.2 s (23.2 -34.4 ) [facility] [employer] [facility] Work Phone: Comment on above: Note: Responsible Ob breakfast server: [employer]IVE [employer]FILE (2017) Hematocrit (Bld) [Volume fraction] 35.3 % Low (36.3-47.1 ) [facility] Work Phone: Comment on above: Note: Responsible Ob breakfast server: XNT [employer] (3018) Hemoglobin (Bld) [Mass/Vol] 12.3 g/dL (11.9-15.1 ) [facility] Work Phone: Comment on above: Note: Responsible Ob breakfast server: [employer] (3018) INR Coag (PPP) [Relative time] 1.0 {INR} (0.9-1.2 ) [facility] Work Phone: Comment on above: Note: Responsible Ob breakfast server: [employer] (2016) MCH (RBC) [Entitic mass] 30.8 pg (25.2-33.5 ) [facility] Work Phone: Comment on above: Note: Responsible Ob breakfast server: [employer] (3018) MCV (RBC) [Entitic vol] 88.5 fL (82. 6-102. 9 ) [facility] Work Phone: Comment on above: Note: Responsible Ob breakfast server: [employer] (3018) Platelets (Bld) [#/Vol] 261 10*3/uL (138-453 ) [facility] Work Phone: Comment on above: Note: Responsible Ob breakfast server: [employer] (3018) PT Coag (PPP) [Time] 10.3 s (9.7-12 .2 ) [facility] Work Phone: Comment on above: Note: Responsible Ob breakfast server: [employer] (2016) RBC (Bld) [#/Vol] 3.99 10*6/uL (3.95-5.11 ) [facility] Work Phone: Comment on above: Note: Responsible Ob breakfast server: [employer]NT AUT[employer]FILE (3018) WBC (Bld) [#/Vol] 7.9 10*3/uL (3.5-11.3 ) [facility] Work Phone: Comment on above: Note: Responsible Ob breakfast server: [employer]NT AUT[employer]FILE (3018) Hematologyon 04-19-2019 WBC (Bld) [#/Vol] 0.0 per_100_WBC (0.0) [facility] Work Phone: Comment on above: Note: Responsible Ob breakfast server: XNT AUT[employer]FILE (3019) Magnesiumon 04-19-2019 Magnesium [Mass/Vol] 2.0 mg/dL 1.6 - 2 .6 mg/dL [place] Metabolic Panelon 04-19-2019 GFR/1.73 sq M predicted among non-blacks MDRD (S/P/Bld) [Vol rate/Area] [place] Comment on above: Average GFR for 40-4 9 years old: 99 mL/min/1.73sq m Chronic Kidney Disease: <60 mL/min/1.73sq m Kidney failure: <15 mL/min/1.73sq m eGFR calculated using average adult body mass. Additional eGFR calculator available at: http://www.[employer]/multiple_crcl_2012.htm Stage 1: Some kidney damage normal GFR Stage 2: Mild kidney damage GFR 60-89 Stage 3: Moderate kidney damage GFR 30-59 Stage 4: Severe kidney damage GFR 15-29 Stage 5: Severe kidney damage GFR <15 ESRD - chronic treatment by dialysis or transplant Metabolic PanelOrdered By: Kevin Fung on 04-19-2019 Anion gap [Moles/Vol] 17 mmol/L (9-17 ) [facility] Work Phone: Comment on above: Note: Responsible Ob breakfast server: [employer] (3005) Calcium [Mass/Vol] 9.2 mg/dL (8.6-10.4 ) [facility] Work Phone: Comment on above: Note: Responsible Ob breakfast server: [employer] (3005) Chloride [Moles/Vol] 102 mmol/L (98-107 ) [facility] Work Phone: Comment on above: Note: Responsible Ob breakfast server: [employer] (3005) CO2 [Moles/Vol] 22 mmol/L (20-31 ) [facility] Work Phone: Comment on above: Note: Responsible Ob breakfast server: [employer] (3005) Creatinine [Mass/Vol] 0.59 mg/dL (0.50- 0.90 ) [facility] Work Phone: Comment on above: Note: Responsible Ob breakfast server: [employer] (3005) Glucose [Mass/Vol] 115 mg/dL High (70-99 ) [facility] Work Phone: Comment on above: Note: Responsible Ob breakfast server: [employer] (3005) Magnesium [Mass/Vol] 2.0 mg/dL (1.6-2.6 ) [facility] Work Phone: Comment on above: Note: Responsible Ob breakfast server: [employer] (3005) Potassium [Moles/Vol] 3.3 mmol/L Low (3.7-5.3 ) [facility] Work Phone: Comment on above: Note: Responsible Ob breakfast server: [employer]FILE (3005) Sodium [Moles/Vol] 141 mmol/L (135-144 ) [facility] Work Phone: Comment on above: Note: Responsible Ob breakfast server: [employer] (3005) Urea nitrogen [Mass/Vol] 10 mg/dL (6-20 ) [facility] Work Phone: Comment on above: Note: Responsible Ob breakfast server: [employer] (3005) No Panel InformationOrdered By: Ena Fung on 04-19-2019 BNP Interpretation Pro-BNP Reference Range: [facility] Work Phone: Comment on above: Note: Rule Out: <300 [place] Zone:Age <50 300-450Age 50-75 300-900Age >75 300-1800Usually represents mild to moderate HF but other cardiopulmonary causes cannotbe ruled out.Rule In:Age <50 >450Age 50-75 >900Age >75 >1800Responsible Observer: [employer] ONE [employer]FILE (3005) NRBC Automated 0.0 per_100_WBC (0.0 ) [facility] Work Phone: Comment on above: Note: Responsible Ob breakfast server: XNT AUTOFILE (4481) Troponin Interp. See Note [facility] Work Phone: Comment on above: Note: Reference Rang e:<0.03 Within reference range.0.03-0.09 Possible myocardial damage.Repeat at appropriate intervals to rule out chronic elevation.>= 0.10 Indicative of myocardial damage.Patients with high levels of Biotin oral intake (i.e >5mg/day) may have falselydecreased Troponin T levels. Samples collected within 8 hours of biotin intakemay require additional information for diagnosis.Responsible Observer: [employer] (8745) Troponin T <0.03 ng/mL (<0.03 ) [facility] Work Phone: Comment on above: Note: Troponin T res ults cannot be compared to Troponin-I results.Responsible Observer: [employer]FILE (3681) OtherOrdered By: Ena bee on 04-19-2019 (cont.) See Note [facility] Work Phone: Comment on above: Note: Average GFR fo r 40-49 years old:99 mL/min/1.73sq mChronic Kidney Disease:<60 mL/min/1.73sq mKidney failure:<15 mL/min/1.73sq meGFR calculated using average adult body mass. Additional eGFR calculatoravailable at:http://www.[employer]com.com/multiple_crcl_2012.htmResponsible Observer: CET ONE AUTOFILE (1666) BUN/CRE Ratio 17 (9-20 ) [facility] Work Phone: Comment on above: Note: Responsible Ob breakfast server: [employer]FILE (8044) Erythrocyte distribution width (RBC) [Ratio] 11.9 % (11.8-14.4 ) [facility] Work Phone: Comment on above: Note: Responsible Ob breakfast server: XNT AUTOFILE (3772) GFR, Amer >60 mL/min (>60 ) [facility] Work Phone: Comment on above: Note: Responsible Ob breakfast server: CET ONE AUTOFILE (300) GFR,non Amer >60 mL/min (>60 ) [facility] Work Phone: Comment on above: Note: Responsible Ob breakfast server: C[employer] ONE [employer]FILE (9953) MCHC (RBC) [Mass/Vol] 34.8 g/dL (28.4- 34.8 ) [facility] Work Phone: Comment on above: Note: Responsible Ob breakfast server: XNT [employer]FILE (4269) Performing Lab: see note [facility] Work Phone: Comment on above: Note: [address] [place] [id number] [place] [address] Note: [address] [place] [address] Platelet mean volume (Bld) [Entitic vol] 10.0 fL (8.1-13.5 ) [facility] Work Phone: Comment on above: Note: Responsible Ob breakfast server: XNT AUTOFILE (7486) Reported Physicians See Note [facility] Work Phone: Comment on above: Note: Reported Physi cians:Ordering: Erin DOWending: Ena Wray Staging: See Note [facility] Work Phone: Comment on above: Note: Stage 1: Some kidney damage normal GFRStage 2: Mild kidney damage GFR 60-89Stage 3: Moderate kidney damage GFR 30-59Stage 4: Severe kidney damage GFR 15-29Stage 5: Severe kidney damage GFR <15ESRD - chronic treatment by dialysis or transplantResponsible Observer: [employer] ONE [employer]FILE (7194) Troponin, High Sens NOT REPORTED ng/L (0-14 ) [facility] Work Phone: Protime-INRon 04-19-2019 INR Coag (PPP) [Relative time] 1.0 {INR} [place] PT Coag (PPP) [Time] 10.3 s [place] Sedimentation Rateon 019 Sed Rate 18 mm 0 - 20 mm [place] Troponinon 04-19-2019 Troponin I.cardiac [Mass/Vol] [place] Comment on above: Reference Range: <0.03 Within reference range. 0.03-0.09 Possible myocardial damage. Repeat at appropriate intervals to rule out chronic elevation. >= 0.10 Indicative of myocardial damage. Patients with high levels of Biotin oral intake (i.e >5mg/day) may have falsely decreased Troponin T levels. Samples collected within 8 hours of biotin intake may require additional information for diagnosis. Troponin T.cardiac [Mass/Vol] ug/L <0.03 ng/mL [place] Comment on above: Troponin T results c annot be compared to Troponin-I results. Troponin, High Sensitivity NOT REPORTED 0 - 14 ng/L [place] Troponin I.cardiac [Mass/Vol] [place] Comment on above: Reference Range: <0.03 Within reference range. 0.03-0.09 Possible myocardial damage. Repeat at appropriate intervals to rule out chronic elevation. >= 0.10 Indicative of myocardial damage. Patients with high levels of Biotin oral intake (i.e >5mg/day) may have falsely decreased Troponin T levels. Samples collected within 8 hours of biotin intake may require additional information for diagnosis. Troponin T.cardiac [Mass/Vol] ug/L <0.03 ng/mL [place] Comment on above: Troponin T results c annot be compared to Troponin-I results. Troponin, High Sensitivity NOT REPORTED 0 - 14 ng/L [place] XR CHEST PORTABLEon 04-19-20 19 EXAMINATION: ONE XRA Y VIEW OF THE CHEST 04/19/2019 1:39 pm COMPARISON: Chest 02/06/2019 HISTORY: ORDERING SYSTEM PROVIDED HISTORY: chest pain TECHNOLOGIST PROVIDED HISTORY: chest pain FINDINGS: The cardiomediastinal and hilar silhouettes appear unremarkable. The lungs appear clear. No pleural effusion evident. No pneumothorax is seen. No acute osseous abnormality is identified. [place], [facility] Incoming Radiant Results From [employer] - 04/19/2019 1:52 PM EDT EXAMINATION: ONE XRAY VIEW OF THE CHEST 04/19/2019 1:39 pm COMPARISON: Chest 02/06/2019 HISTORY: ORDERING SYSTEM PROVIDED HISTORY: chest pain TECHNOLOGIST PROVIDED HISTORY: chest pain FINDINGS: The cardiomediastinal and hilar silhouettes appear unremarkable. The lungs appear clear. No pleural effusion evident. No pneumothorax is seen. No acute osseous abnormality is identified. IMPRESSION: No radiographic evidence of acute cardiopulmonary disease. [employer] KELLY No radiographic evid ence of acute cardiopulmonary disease. [employer] KELLY [facility] 01-21-2018 Cholesterol mass conc 248 mg/dL Invalid Interpretation Code <200 [facility] Cholesterol 248 mg/dL Invalid Interpretation Code <200 [facility] Metabolic Panelon 01-21-2018 Anion gap 3 molar conc 10 mmol/L Invalid Interpretation Code 9-17 [facility] Calcium mass conc 9.20 mg/dL Invalid Interpretation Code 8.6-10.4 [facility] Chloride molar conc 97 mmol/L Invalid Interpretation Code 98-107 [facility] CO2 molar conc 29 mmol/L Invalid Interpretation Code 20-31 [facility] Creatinine mass conc 0.51 mg/dL Invalid Interpretation Code 0.50-0.90 [facility] Glucose mass conc 120 mg/dL Invalid Interpretation Code 70-99 [facility] Potassium molar conc 4.0 mmol/L Invalid Interpretation Code 3.7-5.3 [facility] Sodium molar conc 136 mmol/L Invalid Interpretation Code 135-144 [facility] Urea nitrogen mass conc 11.0 mg/dL Invalid Interpretation Code 6-20 [facility] Anion gap 10 mmol/L Invalid Interpretation Code 9-17 [facility] BUN (urea nitrogen) 11 mg/dL Invalid Interpretation Code 6-20 [facility] [employer] [facility] Calcium 9.2 mg/dL Invalid Interpretation Code 8.6-10.4 [facility] Calcium mass conc 9.20 mg/dL Invalid Interpretation Code 8.6-10.4 [facility] Chloride 97 mmol/L Invalid Interpretation Code 98-107 [facility] CO2 29 mmol/L Invalid Interpretation Code 20-31 [facility] Creatinine 0.51 mg/dL Invalid Interpretation Code 0.50-0.90 [facility] Glucose mass conc 120 mg/dL Invalid Interpretation Code 70-99 [facility] Potassium molar conc 4.0 mmol/L Invalid Interpretation Code 3.7-5.3 [facility] Sodium 136 mmol/L Invalid Interpretation Code 135-144 [facility] Urea nitrogen mass conc 11.0 mg/dL Invalid Interpretation Code 6-20 [facility] Otheron 01-21-2018 Cholesterol.total/Audelia sterol in HDL mass ratio 7.3 {ratio} Invalid Interpretation Code <5 [facility] Urea nitrogen/Creatinine mass ratio (Bld) 22 Invalid Interpretation Code 9-20 [facility] NOT REPORTED Invalid Interpretation Code 1-30 [facility] [employer] [facility] >60 Invalid Interpretation Code >60 [facility] [employer] [facility] 106 Invalid Interpretation Code <100 [facility] [employer] [facility] 34 Invalid Interpretation Code >40 [facility] [employer] [facility] 708 Invalid Interpretation Code <150 [facility] [employer] [facility] Cholesterol to HDL Ratio 7.3 {ratio} Invalid Interpretation Code <5 [facility] [employer] [facility] Urea nitrogen/Creatinine mass ratio (Bld) 22 Invalid Interpretation Code 9-20 [facility] NOT REPORTED Invalid Interpretation Code 1-30 [facility] >60 Invalid Interpretation Code >60 [facility] 22 Invalid Interpretation Code 9-20 [facility] 34 Invalid Interpretation Code >40 [facility] 106 Invalid Interpretation Code <100 [facility] 708 Invalid Interpretation Code <150 [facility] Otheron 10-26-2017 2 Invalid Interpretation Code [facility] 2 Invalid Interpretation Code [facility] Metabolic Panelon 10-15-2017 Hemoglobin A1c/Hemoglobin.total mass fraction (Bld) 5.40 % Invalid Interpretation Code < 7 [facility] Hemoglobin A1c/Hemoglobin.total mass fraction (Bld) 5.40 % Invalid Interpretation Code < 7 [facility] Otheron 10-15-2017 0=No Invalid Interpretation Code [facility] 0=N/A Invalid Interpretation Code [facility] 1=Yes Invalid Interpretation Code [facility] 0 Invalid Interpretation Code [facility] 4 Invalid Interpretation Code [facility] Risk Level 2= 4-6 Invalid Interpretation Code [facility] managing chronic illness Invalid Interpretation Code [facility] 2=uncontrolled Invalid Interpretation Code [facility] 1=Controlled Invalid Interpretation Code [facility] managing chronic illness Invalid Interpretation Code [facility] Risk Level 2= 4-6 Invalid Interpretation Code [facility] 4 Invalid Interpretation Code [facility] 0=No Invalid Interpretation Code [facility] 0 Invalid Interpretation Code [facility] 1=Yes Invalid Interpretation Code [facility] 0=N/A Invalid Interpretation Code [facility] 2=uncontrolled Invalid Interpretation Code [facility] 1=Controlled Invalid Interpretation Code [facility] Thyroidon 10-05-2017 Thyroid stimulating hormone (TSH) 1.570 uIU/mL Invalid Interpretation Code 0.40-4.10 [facility] Thyroxine (T4) free 1.170 ng/dL Invalid Interpretation Code 0.80-1.90 [facility] Otheron 03-23-2017 0=N/A Invalid Interpretation Code [facility] Risk Level 3=7-9 Invalid Interpretation Code [facility] 8 Invalid Interpretation Code [facility] Needs Completed Invalid Interpretation Code [facility] 3=Yes Invalid Interpretation Code [facility] 2=uncontrolled Invalid Interpretation Code [facility] 1=Yes Invalid Interpretation Code [facility] 0=No Invalid Interpretation Code [facility] 0=N/A Invalid Interpretation Code [facility] Risk Level 3=7-9 Invalid Interpretation Code [facility] 8 Invalid Interpretation Code [facility] Needs Completed Invalid Interpretation Code [facility] 3=Yes Invalid Interpretation Code [facility] 2=uncontrolled Invalid Interpretation Code [facility] 1=Yes Invalid Interpretation Code [facility] 0=No Invalid Interpretation Code [facility] Vital Signs Date Time Vital Sign Value Performing Clinician Facility 03-12-2024 12:48-0400 Diastolic blood pressure 70 mm[Hg] Ena Fung OIL DISTRIBUTOR - [employer] Work Phone: [facility] 03-12-2024 12:48-0400 Heart rate 81 /min Ena Fung OIL DISTRIBUTOR [employer] Work Phone: [facility] 03-12-2024 12:48-0400 Systolic blood pressure 121 mm[Hg] Ena Fung OIL DISTRIBUTOR - [employer] Work Phone: [facility] 03-12-2024 11:47-0400 Body temperature 98.01 [degF] Ena Fung OIL DISTRIBUTOR - [employer] Work Phone: [facility] 03-12-2024 11:47-0400 Respiratory rate 15 /min Ena Fung OIL DISTRIBUTOR - [employer] Work Phone: [facility] 03-12-2024 11:47-0400 SaO2% (BldA) [Mass fraction] 96 % Ena Fung OIL DISTRIBUTOR [employer] Work Phone: [facility] 02-08-2024 17:02-0400 Diastolic blood pressure 91 mm[Hg] Ena Fung CNP Work Phone: [facility] Work Phone: 02-08-2024 17:02-0400 Systolic blood pressure 140 mm[Hg] Ena Fung CNP Work Phone: [facility] Work Phone: 02-08-2024 16:53-0400 Body height 162.56 cm Ena Fung CNP Work Phone: [facility] Work Phone: 02-08-2024 16:53-0400 Body mass index (BMI) [Ratio] 32.8 kg/m2 Ena Fung CNP Work Phone: [facility] Work Phone: 02-08-2024 16:53-0400 Body surface area Derived from formula 1.9 m2 Ena Fung CNP Work Phone: [facility] Work Phone: 02-08-2024 16:53-0400 Body weight 86.64 kg Ena Fung CNP Work Phone: [facility] Work Phone: 02-08-2024 16:53-0400 Diastolic blood pressure 92 mm[Hg] Ena Fung CNP Work Phone: [facility] Work Phone: 02-08-2024 16:53-0400 Heart rate 76 /min Ena Fung CNP Work Phone: [facility] Work Phone: 02-08-2024 16:53-0400 SaO2% (BldA) [Mass fraction] 98 % Ena Fung CNP Work Phone: [facility] Work Phone: 02-08-2024 16:53-0400 Systolic blood pressure 154 mm[Hg] Ena Fung CNP Work Phone: [facility] Work Phone: 01-27-2024 09:02-0400 Diastolic blood pressure 117 mm[Hg] Ena Fung CNP Work Phone: [facility] Work Phone: 01-27-2024 09:02-0400 Systolic blood pressure 148 mm[Hg] Ena Fung CNP Work Phone: [facility] Work Phone: 01-27-2024 08:51-0400 Body height 162.56 cm Ena Fung CNP Work Phone: [facility] Work Phone: 01-27-2024 08:51-0400 Body mass index (BMI) [Ratio] 32.8 kg/m2 Ena Fung CNP Work Phone: [facility] Work Phone: 01-27-2024 08:51-0400 Body surface area Derived from formula 1.9 m2 Ena Fung CNP Work Phone: [facility] Work Phone: 01-27-2024 08:51-0400 Body weight 86.64 kg Ena Fung CNP Work Phone: [facility] Work Phone: 01-27-2024 08:51-0400 Diastolic blood pressure 85 mm[Hg] Ena Fung CNP Work Phone: [facility] Work Phone: 01-27-2024 08:51-0400 Heart rate 85 /min Ena Fung CNP Work Phone: [facility] Work Phone: 01-27-2024 08:51-0400 SaO2% (BldA) [Mass fraction] 97 % Ena Fung CNP Work Phone: [facility] Work Phone: 01-27-2024 08:51-0400 Systolic blood pressure 156 mm[Hg] Ena Fung CNP Work Phone: [facility] Work Phone: 12-23-2023 18:42-0400 Diastolic blood pressure 85 mm[Hg] Jaxson Ferrer MD Work Phone: [facility] 12-23-2023 18:42-0400 Heart rate 92 /min Jaxson Ferrer MD Work Phone: [facility] 12-23-2023 18:42-0400 SaO2% (BldA) [Mass fraction] 95 % Jaxson Ferrer MD Work Phone: [facility] 12-23-2023 18:42-0400 Systolic blood pressure 124 mm[Hg] Jaxson Ferrer MD Work Phone: [facility] 12-23-2023 13:53-0400 Body mass index (BMI) [Ratio] 33.99 kg/m2 Jaxson Ferrer MD Work Phone: [facility] 12-23-2023 13:53-0400 Body temperature 98.4 [degF] Jaxson Ferrer MD Work Phone: [facility] 12-23-2023 13:53-0400 Body weight 89.81 kg Jaxson Ferrer MD Work Phone: [facility] 12-23-2023 13:53-0400 Respiratory rate 18 /min Jaxson Ferrer MD Work Phone: [facility] 09-07-2023 13:56-0500 Body height 162.56 cm Ena Fung CNP Work Phone: [facility] Work Phone: 09-07-2023 13:56-0500 Body mass index (BMI) [Ratio] 33.3 kg/m2 Ena Fung CNP Work Phone: [facility] Work Phone: 09-07-2023 13:56-0500 Body surface area Derived from formula 1.9 m2 Ena Fung CNP Work Phone: [facility] Work Phone: 09-07-2023 13:56-0500 Body temperature 98.4 [degF] Ena Fung CNP Work Phone: [facility] Work Phone: 09-07-2023 13:56-0500 Body weight 88 kg Ena Fung CNP Work Phone: [facility] Work Phone: 09-07-2023 13:56-0500 Diastolic blood pressure 82 mm[Hg] Ena Fugn CNP Work Phone: [facility] Work Phone: 09-07-2023 13:56-0500 Heart rate 85 /min Ena Fung CNP Work Phone: [facility] Work Phone: 09-07-2023 13:56-0500 SaO2% (BldA) [Mass fraction] 97 % Ena Fung CNP Work Phone: [facility] Work Phone: 09-07-2023 13:56-0500 Systolic blood pressure 123 mm[Hg] Ena Fung CNP Work Phone: [facility] Work Phone: 08-20-2023 08:32-0500 Body height 162.56 cm Ena Fung CNP Work Phone: [facility] Work Phone: 08-20-2023 08:32-0500 Body mass index (BMI) [Ratio] 32.6 kg/m2 Ena Fung CNP Work Phone: [facility] Work Phone: 08-20-2023 08:32-0500 Body surface area Derived from formula 1.9 m2 Ena Fung CNP Work Phone: [facility] Work Phone: 08-20-2023 08:32-0500 Body weight 86.18 kg Ena Fung CNP Work Phone: [facility] Work Phone: 08-20-2023 08:32-0500 Diastolic blood pressure 79 mm[Hg] Ena Fung CNP Work Phone: [facility] Work Phone: 08-20-2023 08:32-0500 Heart rate 106 /min Ena Fung CNP Work Phone: [facility] Work Phone: 08-20-2023 08:32-0500 SaO2% (BldA) [Mass fraction] 97 % Ena Fung CNP Work Phone: [facility] Work Phone: 08-20-2023 08:32-0500 Systolic blood pressure 138 mm[Hg] Ena Fung CNP Work Phone: [facility] Work Phone: 08-12-2023 17:00-0500 Diastolic blood pressure 84 mm[Hg] Ena Fung OIL DISTRIBUTOR [employer] Work Phone: [facility] 08-12-2023 17:00-0500 Heart rate 80 /min Ena Fung APRN - [employer] Work Phone: [facility] 08-12-2023 17:00-0500 Respiratory rate 12 /min Ean Fung APRN - [employer] Work Phone: [facility] 08-12-2023 17:00-0500 SaO2% (BldA) [Mass fraction] 100 % Ena Fung OIL DISTRIBUTOR [employer] Work Phone: [facility] 08-12-2023 17:00-0500 Systolic blood pressure 106 mm[Hg] Ena Fung OIL DISTRIBUTOR [employer] Work Phone: [facility] 08-12-2023 15:24-0500 Body height 162.6 cm Ena Fung APRN - [facility] Work Phone: [facility] 08-12-2023 15:24-0500 Body mass index (BMI) [Ratio] 33.99 kg/m2 Ena Fung APRN - [facility] Work Phone: [facility] [employer] 08-12-2023 15:24-0500 Body temperature 98.1 [degF] Ena Fung APRN - [facility] Work Phone: [facility] [employer] 08-12-2023 15:24-0500 Body weight 89.81 kg Ena Fung APRN - [facility] Work Phone: [facility] [employer] 08-04-2023 14:22-0500 Body height 162.56 cm Ena Fung CNP Work Phone: [facility] Work Phone: 08-04-2023 14:22-0500 Body mass index (BMI) [Ratio] 33.6 kg/m2 Ena Fung CNP Work Phone: [facility] Work Phone: 08-04-2023 14:22-0500 Body surface area Derived from formula 1.9 m2 Ena Fung CNP Work Phone: [facility] Work Phone: 08-04-2023 14:22-0500 Body weight 88.91 kg Ena Fung CNP Work Phone: [facility] Work Phone: 08-04-2023 14:22-0500 Diastolic blood pressure 87 mm[Hg] Ena Fung CNP Work Phone: [facility] Work Phone: 08-04-2023 14:22-0500 Heart rate 90 /min Ena Fung CNP Work Phone: [facility] Work Phone: 08-04-2023 14:22-0500 SaO2% (BldA) [Mass fraction] 97 % Ena Fnug CNP Work Phone: [facility] Work Phone: 08-04-2023 14:22-0500 Systolic blood pressure 133 mm[Hg] Ena 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 Work Phone: [facility] Work Phone: 07-20-2023 10:45-0500 Body mass index (BMI) [Ratio] 32.61 kg/m2 Lisa Blackman DO Work Phone: [facility] 07-20-2023 10:45-0500 Body temperature 100.8 [degF] Lisa Blackman DO Work Phone: [facility] 07-20-2023 10:45-0500 Body weight 86.18 kg Lisa Blackman DO Work Phone: [facility] 07-20-2023 10:45-0500 Diastolic blood pressure 86 mm[Hg] Lisa Blackman DO Work Phone: [facility] 07-20-2023 10:45-0500 Heart rate 100 /min Lisa Blackman DO Work Phone: [facility] 07-20-2023 10:45-0500 Respiratory rate 20 /min Lisa Blackman DO Work Phone: [facility] 07-20-2023 10:45-0500 SaO2% (BldA) [Mass fraction] 96 % Lisa Blackman DO Work Phone: [facility] 07-20-2023 10:45-0500 Systolic blood pressure 153 mm[Hg] Lisa Blackman DO Work Phone: [facility] 03-11-2023 12:15-0400 Diastolic blood pressure 54 mm[Hg] [facility] 03 [facility] 03-11-2023 12:15-0400 Heart rate 88 /min [facility] 03 [facility] 03-11-2023 12:15-0400 Respiratory rate 18 /min [facility] 03 [facility] 03-11-2023 12:15-0400 Systolic blood pressure 100 mm[Hg] [facility] 03 [facility] 03-05-2023 15:35-0400 Body temperature 100 [degF] Ena Fung APRN - [facility] Work Phone: [facility] 03-05-2023 15:35-0400 Diastolic blood pressure 96 mm[Hg] Ena Fung APRN [facility] Work Phone: [facility] 03-05-2023 15:35-0400 Heart rate 99 /min Ena Fung APRN [facility] Work Phone: [facility] 03-05-2023 15:35-0400 Respiratory rate 18 /min Ena Fung APRN [facility] Work Phone: [facility] 03-05-2023 15:35-0400 SaO2% (BldA) [Mass fraction] 99 % Ena Fung APRN - [facility] Work Phone: [employer] [facility] 03-05-2023 15:35-0400 Systolic blood pressure 145 mm[Hg] Ena Fung APRN - [facility] Work Phone: [facility] 02-22-2023 16:16-0400 Diastolic blood pressure 46 mm[Hg] Ena Fung APRN - [facility] Work Phone: [facility] 02-22-2023 16:16-0400 Heart rate 78 /min Ena Fung APRN [facility] Work Phone: [employer] [facility] 02-22-2023 16:16-0400 SaO2% (BldA) [Mass fraction] 95 % Ena Fung APRN - [facility] Work Phone: [place] [employer] [facility] 02-22-2023 16:16-0400 Systolic blood pressure 116 mm[Hg] Ena Fung APRN [facility] Work Phone: [facility] [employer] 02-22-2023 13:40-0400 Body height 162.6 cm Ena Fung APRN - [facility] Work Phone: [facility] [employer] 02-22-2023 13:40-0400 Body mass index (BMI) [Ratio] 33.47 kg/m2 Ena Fung APRN - [employer] Work Phone: [facility] [employer] [facility] 02-22-2023 13:40-0400 Body temperature 98.1 [degF] Ena Fung APRN - [employer] Work Phone: [facility] [employer] 02-22-2023 13:40-0400 Body weight 88.45 kg Ena Fung APRN - [employer] Work Phone: [facility] [employer] 02-22-2023 13:40-0400 Respiratory rate 16 /min Ena Fung APRN - [employer] Work Phone: [facility] [employer] 02-01-2023 13:54-0400 Body height 162.56 cm Ena Fung CNP Work Phone: [facility] Work Phone: 02-01-2023 13:54-0400 Body mass index (BMI) [Ratio] 34.2 kg/m2 Ena Fung CNP Work Phone: [facility] Work Phone: 02-01-2023 13:54-0400 Body surface area Derived from formula 2 m2 Ena Fung CNP Work Phone: [facility] Work Phone: 02-01-2023 13:54-0400 Body temperature 98.3 [degF] Ena Fung CNP Work Phone: [facility] Work Phone: 02-01-2023 13:54-0400 Body weight 90.27 kg Ena Fung CNP Work Phone: [facility] Work Phone: 02-01-2023 13:54-0400 Diastolic blood pressure 84 mm[Hg] Ena 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 Work Phone: [facility] Work Phone: 02-01-2023 13:54-0400 Heart rate 72 /min Ena 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 Work Phone: [facility] Work Phone: 02-01-2023 13:54-0400 SaO2% (BldA) [Mass fraction] 96 % Ena 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 Work Phone: [facility] Work Phone: 02-01-2023 13:54-0400 Systolic blood pressure 121 mm[Hg] Ena 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 Work Phone: [facility] Work Phone: 12-21-2022 11:10-0400 Diastolic blood pressure 75 mm[Hg] Ena Fung OIL DISTRIBUTOR - [employer] Work Phone: [employer] 12-21-2022 11:10-0400 Systolic blood pressure 113 mm[Hg] Ena Fung OIL DISTRIBUTOR - [employer] Work Phone: [employer] [employer] 12-21-2022 11:09-0400 Body temperature 97.7 [degF] Ena Fung OIL DISTRIBUTOR - [employer] Work Phone: [facility] [email or web address] [facility] 12-21-2022 11:09-0400 Heart rate 68 /min Ena Fung OIL DISTRIBUTOR - [employer] Work Phone: [facility] [employer] 12-21-2022 11:09-0400 Respiratory rate 16 /min Ena Fung OIL DISTRIBUTOR - [employer] Work Phone: [facility] [email or web address] [facility] 12-21-2022 11:09-0400 SaO2% (BldA) [Mass fraction] 98 % Ena Fung OIL DISTRIBUTOR - [employer] Work Phone: [facility] 12-21-2022 10:34-0400 Body height 162.56 cm Ena Fung CNP Work Phone: [facility] Work Phone: 12-21-2022 10:34-0400 Body mass index (BMI) [Ratio] 33.6 kg/m2 Ena Fung CNP Work Phone: [facility] Work Phone: 12-21-2022 10:34-0400 Body surface area Derived from formula 1.9 m2 Ena Fung CNP Work Phone: [facility] Work Phone: 12-21-2022 10:34-0400 Body temperature 98.3 [degF] Ena Fung CNP Work Phone: [facility] Work Phone: 12-21-2022 10:34-0400 Body weight 88.91 kg Ena Fung CNP Work Phone: [facility] Work Phone: 12-21-2022 10:34-0400 Diastolic blood pressure 66 mm[Hg] Ena Fung CNP Work Phone: [facility] Work Phone: 12-21-2022 10:34-0400 Heart rate 66 /min Ena Fung CNP Work Phone: [facility] Work Phone: 12-21-2022 10:34-0400 SaO2% (BldA) [Mass fraction] 97 % Ena Fung CNP Work Phone: [facility] Work Phone: 12-21-2022 10:34-0400 Systolic blood pressure 110 mm[Hg] Ena Fung CNP Work Phone: [facility] Work Phone: 11-19-2022 11:05-0400 Body height 162.56 cm Ena Fung CNP Work Phone: [facility] Work Phone: 11-19-2022 11:05-0400 Body mass index (BMI) [Ratio] 34.2 kg/m2 Ena Fung CNP Work Phone: [facility] Work Phone: 11-19-2022 11:05-0400 Body surface area Derived from formula 2 m2 Ena Fung CNP Work Phone: [facility] Work Phone: 11-19-2022 11:05-0400 Body temperature 98.8 [degF] Ena Fung CNP Work Phone: [facility] Work Phone: 11-19-2022 11:05-0400 Body weight 90.45 kg Ena Fung CNP Work Phone: [facility] Work Phone: 11-19-2022 11:05-0400 Diastolic blood pressure 79 mm[Hg] Ena Fung CNP Work Phone: [facility] Work Phone: 11-19-2022 11:05-0400 Heart rate 93 /min Ena Fung CNP Work Phone: [facility] Work Phone: 11-19-2022 11:05-0400 SaO2% (BldA) [Mass fraction] 97 % Ena Fung CNP Work Phone: [facility] Work Phone: 11-19-2022 11:05-0400 Systolic blood pressure 121 mm[Hg] Ena Fung CNP Work Phone: [facility] Work Phone: 08-20-2022 18:00-0500 Diastolic blood pressure 62 mm[Hg] Ronan Rodriguez MD Work Phone: [facility] [employer] [facility] 08-20-2022 18:00-0500 Heart rate 72 /min Ronan Rodriguez MD Work Phone: [facility] [employer] [facility] 08-20-2022 18:00-0500 Respiratory rate 24 /min Ronan Rodriguez MD Work Phone: [facility] [employer] [facility] 08-20-2022 18:00-0500 SaO2% (BldA) [Mass fraction] 98 % Ronan Rodriguez MD Work Phone: [employer] [facility] [employer] [facility] 08-20-2022 18:00-0500 Systolic blood pressure 100 mm[Hg] Ronan Rodriguez MD Work Phone: [facility] [employer] 08-20-2022 15:06-0500 Body temperature 98.29 [degF] Ronan Rodriguez MD Work Phone: [employer] [facility] [employer] 08-20-2022 14:04-0500 Diastolic blood pressure 58 mm[Hg] Ena Prateren OIL DISTRIBUTOR - SUPERINTENDENT PRESSURE Work Phone: [employer] [facility] [employer] 08-20-2022 14:04-0500 Heart rate 62 /min Ena Prateren OIL DISTRIBUTOR - SUPERINTENDENT [employer]ESSURE Work Phone: [employer] [facility] [employer] 08-20-2022 14:04-0500 Respiratory rate 15 /min Ena Kenton OIL DISTRIBUTOR - SUPERINTENDENT [employer]ESSURE Work Phone: [facility] [employer] 08-20-2022 14:04-0500 SaO2% (BldA) [Mass fraction] 96 % Ena Kenton OIL DISTRIBUTOR - SUPERINTENDENT [employer]ESSURE Work Phone: [facility] [employer] 08-20-2022 14:04-0500 Systolic blood pressure 97 mm[Hg] Ena Kenton OIL DISTRIBUTOR - SUPERINTENDENT [employer]ESSURE Work Phone: [facility] [employer] 08-20-2022 12:15-0500 Body temperature 98.2 [degF] Ena Kenton OIL DISTRIBUTOR - SUPERINTENDENT [employer]URE Work Phone: [facility] [employer] 07-28-2022 10:57-0500 Diastolic blood pressure 63 mm[Hg] Jaxson Ferrer MD Work Phone: [facility] 07-28-2022 10:57-0500 SaO2% (BldA) [Mass fraction] 99 % Jaxson Ferrer MD Work Phone: [facility] 07-28-2022 10:57-0500 Systolic blood pressure 131 mm[Hg] Jaxson Ferrer MD Work Phone: [facility] 07-28-2022 08:45-0500 Respiratory rate 18 /min Jaxson Ferrer MD Work Phone: [facility] 07-28-2022 08:43-0500 Body temperature 98.01 [degF] Jaxson Ferrer MD Work Phone: [facility] 07-28-2022 08:43-0500 Heart rate 68 /min Jaxson Ferrer MD Work Phone: [facility] 05-01-2022 18:56-0400 Respiratory rate 15 /min Thad [facility]rios [facility] 05-01-2022 18:30-0400 Body temperature 98.4 [degF] Thad [facility]rios [facility] [employer] 05-01-2022 18:30-0400 Diastolic blood pressure 41 mm[Hg] Thad [facility]rios [facility] 05-01-2022 18:30-0400 Heart rate 74 /min Thad [facility]rios [facility] 05-01-2022 18:30-0400 SaO2% (BldA) [Mass fraction] 97 % Thad Berrios MD [facility] [employer] 05-01-2022 18:30-0400 Systolic blood pressure 108 mm[Hg] Thad [facility]rios MD [facility] 04-13-2022 11:37-0400 Body height 162.56 cm Ena Fung CNP Work Phone: [facility] Work Phone: 04-13-2022 11:37-0400 Body mass index (BMI) [Ratio] 32.6 kg/m2 Ena Fung CNP Work Phone: [facility] Work Phone: 04-13-2022 11:37-0400 Body surface area Derived from formula 1.91 m2 Ena Fung CNP Work Phone: [facility] Work Phone: 04-13-2022 11:37-0400 Body surface area Derived from formula 1.9 m2 Ena Fung CNP Work Phone: [facility] Work Phone: 04-13-2022 11:37-0400 Body temperature 97.3 [degF] Ena Fung CNP Work Phone: [facility] Work Phone: 04-13-2022 11:37-0400 Body weight 86.18 kg Ena Fung CNP Work Phone: [facility] Work Phone: 04-13-2022 11:37-0400 Diastolic blood pressure 80 mm[Hg] Ena Fung CNP Work Phone: [facility] Work Phone: 04-13-2022 11:37-0400 Heart rate 81 /min Ena Fung CNP Work Phone: [facility] Work Phone: 04-13-2022 11:37-0400 SaO2% (BldA) [Mass fraction] 98 % Ena Fung CNP Work Phone: [facility] Work Phone: 04-13-2022 11:37-0400 Systolic blood pressure 118 mm[Hg] Ena Fung CNP Work Phone: [facility] Work Phone: 01-30-2022 08:13-0400 Body height 162.56 cm Ena Fung CNP Work Phone: [facility] Work Phone: 01-30-2022 08:13-0400 Body mass index (BMI) [Ratio] 32.8 kg/m2 Ena Fung CNP Work Phone: [facility] Work Phone: 01-30-2022 08:13-0400 Body surface area Derived from formula 1.92 m2 Ena Fung CNP Work Phone: [facility] Work Phone: 01-30-2022 08:13-0400 Body surface area Derived from formula 1.9 m2 Ena Fung CNP Work Phone: [facility] Work Phone: 01-30-2022 08:13-0400 Body temperature 97.4 [degF] Ena Fung CNP Work Phone: [facility] Work Phone: 01-30-2022 08:13-0400 Body weight 86.55 kg Ena Fung CNP Work Phone: [facility] Work Phone: 01-30-2022 08:13-0400 Diastolic blood pressure 76 mm[Hg] Ena Fung CNP Work Phone: [facility] Work Phone: 01-30-2022 08:13-0400 Heart rate 81 /min Ena Fung CNP Work Phone: [facility] Work Phone: 01-30-2022 08:13-0400 SaO2% (BldA) [Mass fraction] 98 % Ena Fung CNP Work Phone: [facility] Work Phone: 01-30-2022 08:13-0400 Systolic blood pressure 120 mm[Hg] Ena 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 Work Phone: [facility] Work Phone: 12-19-2021 17:58-0400 SaO2% (BldA) [Mass fraction] 96 % Santhosh Schwab MD Work Phone: [employer] 12-19-2021 17:53-0400 Diastolic blood pressure 67 mm[Hg] Santhosh Schwab MD Work Phone: [facility] 12-19-2021 17:53-0400 Systolic blood pressure 126 mm[Hg] Santhosh Schwab MD Work Phone: [facility] 12-19-2021 17:52-0400 Body temperature 98.01 [degF] Santhosh Schwab MD Work Phone: [facility] 12-19-2021 17:52-0400 Heart rate 80 /min Santhosh Schwab MD Work Phone: [facility] 12-19-2021 17:52-0400 Respiratory rate 18 /min Santhosh Schwab MD Work Phone: [employer] 11-26-2021 11:46-0400 Body height 162.56 cm Ena 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 Work Phone: [facility] Work Phone: 11-26-2021 11:46-0400 Body mass index (BMI) [Ratio] 32.3 kg/m2 Ena 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 Work Phone: [facility] Work Phone: 11-26-2021 11:46-0400 Body surface area Derived from formula 1.91 m2 Ena 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 Work Phone: [facility] Work Phone: 11-26-2021 11:46-0400 Body surface area Derived from formula 1.9 m2 Ena Fung CNP Work Phone: [facility] Work Phone: 11-26-2021 11:46-0400 Body temperature 97.7 [degF] Ena Fung CNP Work Phone: [facility] Work Phone: 11-26-2021 11:46-0400 Body weight 85.28 kg Ena Fung CNP Work Phone: [facility] Work Phone: 11-26-2021 11:46-0400 Diastolic blood pressure 72 mm[Hg] Ena Fung CNP Work Phone: [facility] Work Phone: 11-26-2021 11:46-0400 Heart rate 73 /min Ena Fung CNP Work Phone: [facility] Work Phone: 11-26-2021 11:46-0400 SaO2% (BldA) [Mass fraction] 96 % Ena Fung CNP Work Phone: [facility] Work Phone: 11-26-2021 11:46-0400 Systolic blood pressure 118 mm[Hg] Ena Fung CNP Work Phone: [facility] Work Phone: 11-21-2021 19:27-0400 Body height 162.6 cm Ena Fung APRN - SUPERINTENDENT PRESSURE Work Phone: [facility] [employer] 11-21-2021 19:27-0400 Body mass index (BMI) [Ratio] 32.61 kg/m2 Ena Fung APRN - SUPERINTENDENT PRESSURE Work Phone: [employer] 11-21-2021 19:27-0400 Body temperature 98.01 [degF] Ena Oviedo CNP Work Phone: [employer] 11-21-2021 19:27-0400 Body weight 86.18 kg Ena [facility]viedo CNP [facility] 11-21-2021 19:27-0400 Diastolic blood pressure 71 mm[Hg] Ena Oviedo CNP [facility] 11-21-2021 19:27-0400 Heart rate 86 /min Ena Oviedo CNP [facility] 11-21-2021 19:27-0400 Respiratory rate 16 /min Ena Oviedo CNP [facility] 11-21-2021 19:27-0400 SaO2% (BldA) [Mass fraction] 99 % Ena Oviedo CNP [facility] 11-21-2021 19:27-0400 Systolic blood pressure 131 mm[Hg] Ena Oviedo CNP Work Phone: [employer] 11-06-2021 13:45-0400 Diastolic blood pressure 68 mm[Hg] [address] 11-06-2021 13:45-0400 Heart rate 57 /min [address] [facility] 11-06-2021 13:45-0400 Respiratory rate 14 /min [facility] [employer] 11-06-2021 13:45-0400 SaO2% (BldA) [Mass fraction] 99 % [address] 11-06-2021 13:45-0400 Systolic blood pressure 118 mm[Hg] [facility] [employer] 10-30-2021 12:00-0400 Body temperature 98.6 [degF] Ronan Rodriguez MD Work Phone: [employer] 10-30-2021 12:00-0400 Diastolic blood pressure 53 mm[Hg] Ronan Rodriguez MD Work Phone: [employer] 10-30-2021 12:00-0400 Heart rate 69 /min Ronan Rodriguez MD Work Phone: [facility] [employer] 10-30-2021 12:00-0400 Respiratory rate 18 /min Ronan Rodriguez MD Work Phone: [facility] [employer] 10-30-2021 12:00-0400 SaO2% (BldA) [Mass fraction] 98 % Ronan Rodriguez MD Work Phone: [facility] [employer] 10-30-2021 12:00-0400 Systolic blood pressure 133 mm[Hg] Ronan Rodriguez MD Work Phone: [facility] [employer] 10-27-2021 11:56-0400 Body height 162.56 cm Ena Fung CNP Work Phone: [facility] Work Phone: 10-27-2021 11:56-0400 Body mass index (BMI) [Ratio] 33 kg/m2 Ena Fung CNP Work Phone: [facility] Work Phone: 10-27-2021 11:56-0400 Body surface area Derived from formula 1.92 m2 Ena Fung CNP Work Phone: [facility] Work Phone: 10-27-2021 11:56-0400 Body temperature 97.9 [degF] Ena Kenton SHAMIR Work Phone: [facility] Work Phone: 10-27-2021 11:56-0400 Body weight 87.09 kg Ena Kenton SHAMIR Work Phone: [facility] Work Phone: 10-27-2021 11:56-0400 Diastolic blood pressure 88 mm[Hg] Ena Fung CNP Work Phone: [facility] Work Phone: 10-27-2021 11:56-0400 Heart rate 103 /min Ena Kenton SUPERINTENDENT PRESSURE Work Phone: [facility] Work Phone: 10-27-2021 11:56-0400 SaO2% (BldA) [Mass fraction] 98 % Ena 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 Work Phone: [facility] Work Phone: 10-27-2021 11:56-0400 Systolic blood pressure 118 mm[Hg] Ena 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 Work Phone: [facility] Work Phone: 10-23-2021 07:50-0400 Body temperature 97.81 [degF] Janae Oropeza MD Work Phone: [employer] 10-23-2021 07:00-0400 Diastolic blood pressure 72 mm[Hg] Janae Oropeza MD Work Phone: [employer] 10-23-2021 07:00-0400 Heart rate 68 /min Janae Oropeza MD Work Phone: [employer] 10-23-2021 07:00-0400 Respiratory rate 12 /min Janae Oropeza MD Work Phone: [employer] 10-23-2021 07:00-0400 SaO2% (BldA) [Mass fraction] 93 % Janae Oropeza MD Work Phone: [employer] 10-23-2021 07:00-0400 Systolic blood pressure 98 mm[Hg] Janae Oropeza MD Work Phone: [employer] 10-20-2021 20:59-0400 Body mass index (BMI) [Ratio] 31.45 kg/m2 Janae Oropeza MD Work Phone: [employer] 10-20-2021 20:59-0400 Body weight 83.1 kg Janae Oropeza MD Work Phone: [employer] 10-19-2021 22:43-0400 Body height 162.6 cm Janae Oropeza MD Work Phone: [employer] 10-19-2021 21:45-0400 Diastolic blood pressure 54 mm[Hg] Olaf Pineda MD Work Phone: [employer] 10-19-2021 21:45-0400 Heart rate 64 /min Olaf Pineda MD Work Phone: [employer] 10-19-2021 21:45-0400 Respiratory rate 18 /min Olaf [facility]ineda MD [facility] 10-19-2021 21:45-0400 SaO2% (BldA) [Mass fraction] 99 % Olaf Pineda MD Work Phone: [employer] 10-19-2021 21:45-0400 Systolic blood pressure 132 mm[Hg] Olaf Pineda MD Work Phone: [facility] 10-19-2021 20:47-0400 Body mass index (BMI) [Ratio] 33.23 kg/m2 Olaf Pineda MD Work Phone: [facility] 10-19-2021 20:47-0400 Body temperature 97.9 [degF] Olaf Pineda MD Work Phone: [facility] 10-19-2021 20:47-0400 Body weight 87.8 kg Olaf Pineda MD Work Phone: [facility] 10-19-2021 20:06-0400 Body height 162.6 cm Olaf Pineda MD Work Phone: [facility] [employer] 10-13-2021 14:04-0400 Body height 162.56 cm Ena Fung CNP Work Phone: [facility] Work Phone: 10-13-2021 14:04-0400 Body mass index (BMI) [Ratio] 32.7 kg/m2 Ena Fung CNP Work Phone: [facility] Work Phone: 10-13-2021 14:04-0400 Body surface area Derived from formula 1.92 m2 Ena Fung CNP Work Phone: [facility] Work Phone: 10-13-2021 14:04-0400 Body temperature 97.2 [degF] Ena Fung CNP Work Phone: [facility] Work Phone: 10-13-2021 14:04-0400 Body weight 86.35 kg Ena Fung CNP Work Phone: [facility] Work Phone: 10-13-2021 14:04-0400 Diastolic blood pressure 78 mm[Hg] Ena Fung CNP Work Phone: [facility] Work Phone: 10-13-2021 14:04-0400 Heart rate 78 /min Ena Fung CNP Work Phone: [facility] Work Phone: 10-13-2021 14:04-0400 SaO2% (BldA) [Mass fraction] 99 % Ena Fung CNP Work Phone: [facility] Work Phone: 10-13-2021 14:04-0400 Systolic blood pressure 122 mm[Hg] Ena Fung CNP Work Phone: [facility] Work Phone: 10-07-2021 13:04-0400 Body temperature 98.49 [degF] Santhosh Schwab MD Work Phone: [employer] 10-07-2021 13:04-0400 Diastolic blood pressure 94 mm[Hg] Santhosh Schwab MD Work Phone: [employer] 10-07-2021 13:04-0400 Heart rate 85 /min Santhosh Schwab MD Work Phone: [employer] 10-07-2021 13:04-0400 Respiratory rate 18 /min Santhosh Schwab MD Work Phone: [employer] 10-07-2021 13:04-0400 SaO2% (BldA) [Mass fraction] 96 % Santhosh Schwab MD Work Phone: [employer] 10-07-2021 13:04-0400 Systolic blood pressure 152 mm[Hg] Santhosh Schwab MD Work Phone: [employer] 10-07-2021 07:34-0400 Body height 162.6 cm Santhosh Schwab MD Work Phone: [employer] 10-06-2021 22:34-0400 Body mass index (BMI) [Ratio] 32.65 kg/m2 Santhosh Schwab MD Work Phone: [employer] 10-06-2021 22:34-0400 Body weight 86.27 kg Santhosh Schwab MD Work Phone: [employer] 08-14-2021 10:59-0500 Body height 162.6 cm Geoff Chu MD Work Phone: [employer] 08-14-2021 10:59-0500 Body mass index (BMI) [Ratio] 32.51 kg/m2 Geoff Chu MD Work Phone: [employer] 08-14-2021 10:59-0500 Body temperature 97.39 [degF] Geoff Chu MD Work Phone: [employer] 08-14-2021 10:59-0500 Body weight 85.91 kg Geoff Chu MD Work Phone: [employer] 08-14-2021 10:59-0500 Diastolic blood pressure 63 mm[Hg] Geoff Chu MD Work Phone: [employer] 08-14-2021 10:59-0500 Heart rate 79 /min Geoff Chu MD Work Phone: [employer] 08-14-2021 10:59-0500 Respiratory rate 18 /min eGoff Chu MD Work Phone: [employer] 08-14-2021 10:59-0500 SaO2% (BldA) [Mass fraction] 97 % Geoff Chu MD Work Phone: [employer] 08-14-2021 10:59-0500 Systolic blood pressure 120 mm[Hg] Geoff Chu MD Work Phone: [employer] 07-08-2021 14:55-0500 Diastolic blood pressure 65 mm[Hg] Ena Fung OIL DISTRIBUTOR - SUPERINTENDENT PRESSURE Work Phone: [employer] 07-08-2021 14:55-0500 Heart rate 66 /min Ena Fung OIL DISTRIBUTOR - SUPERINTENDENT PRESSURE Work Phone: [employer] 07-08-2021 14:55-0500 Respiratory rate 16 /min Ena Fung OIL DISTRIBUTOR - SUPERINTENDENT PRESSURE Work Phone: [employer] 07-08-2021 14:55-0500 SaO2% (BldA) [Mass fraction] 95 % Ena Fung OIL DISTRIBUTOR - SUPERINTENDENT PRESSURE Work Phone: [employer] 07-08-2021 14:55-0500 Systolic blood pressure 125 mm[Hg] Ena Fung OIL DISTRIBUTOR - SUPERINTENDENT PRESSURE Work Phone: [employer] 07-08-2021 12:18-0500 Body temperature 98.1 [degF] Ena Fung OIL DISTRIBUTOR - SUPERINTENDENT PRESSURE Work Phone: [employer] 06-19-2021 17:15-0500 Diastolic blood pressure 55 mm[Hg] Nat Mora MD Work Phone: [employer] 06-19-2021 17:15-0500 Heart rate 70 /min Nat Mora MD Work Phone: [employer] 06-19-2021 17:15-0500 Respiratory rate 20 /min Nat Mora MD Work Phone: [employer] 06-19-2021 17:15-0500 SaO2% (BldA) [Mass fraction] 98 % Nat Mora MD Work Phone: [employer] 06-19-2021 17:15-0500 Systolic blood pressure 106 mm[Hg] Nat Mora MD Work Phone: [employer] 06-19-2021 14:20-0500 Body height 162.6 cm Nat Mora MD Work Phone: [employer] 06-19-2021 14:20-0500 Body mass index (BMI) [Ratio] 31.93 kg/m2 Nat Mora MD Work Phone: [employer] 06-19-2021 14:20-0500 Body temperature 97.3 [degF] Nat Mora MD Work Phone: [employer] 06-19-2021 14:20-0500 Body weight 84.37 kg Nat Mora MD Work Phone: [employer] 06-06-2021 13:45-0500 Diastolic blood pressure 72 mm[Hg] Mariana Adames DO Work Phone: [employer] 06-06-2021 13:45-0500 Heart rate 62 /min Mariana Adames DO Work Phone: [employer] 06-06-2021 13:45-0500 Respiratory rate 19 /min Mariana Adames DO Work Phone: [employer] 06-06-2021 13:45-0500 Systolic blood pressure 139 mm[Hg] Mariana Adames DO Work Phone: [employer] 06-06-2021 13:15-0500 SaO2% (BldA) [Mass fraction] 98 % Mariana Adames DO Work Phone: [employer] 06-06-2021 09:48-0500 Body temperature 97.3 [degF] Mariana Adames DO Work Phone: [employer] 05-22-2021 16:55-0400 Diastolic blood pressure 92 mm[Hg] Ruiz Romero MD Work Phone: [employer] Work Phone: 05-22-2021 16:55-0400 Systolic blood pressure 177 mm[Hg] Ruiz Romero MD Work Phone: [employer] Work Phone: 05-22-2021 16:53-0400 Body mass index (BMI) [Ratio] 30.9 kg/m2 Ruiz Romero MD Work Phone: [employer] Work Phone: 05-22-2021 16:53-0400 Body temperature 97.81 [degF] Ruiz Romero MD Work Phone: [employer] Work Phone: 05-22-2021 16:53-0400 Body weight 81.65 kg Ruiz Romero MD Work Phone: [employer] Work Phone: 05-22-2021 16:53-0400 Heart rate 77 /min Ruiz Romero MD Work Phone: [employer] Work Phone: 05-22-2021 16:53-0400 Respiratory rate 16 /min Ruiz Romero MD Work Phone: [employer] Work Phone: 05-22-2021 16:53-0400 SaO2% (BldA) [Mass fraction] 98 % Ruiz Romero MD Work Phone: [employer] Work Phone: 03-20-2021 16:03-0400 Body height 162.56 cm Ena Fung CNP Work Phone: [employer] [facility] Work Phone: 03-20-2021 16:03-0400 Body mass index (BMI) [Ratio] 31.9 kg/m2 nEa Fung CNP Work Phone: [facility] Work Phone: 03-20-2021 16:03-0400 Body surface area Derived from formula 1.9 m2 Ena Fung CNP Work Phone: [facility] Work Phone: 03-20-2021 16:03-0400 Body weight 84.37 kg Ena Fung CNP Work Phone: [facility] Work Phone: 02-05-2021 19:19-0400 Body height 162.56 cm Ena Fung CNP Work Phone: [facility] Work Phone: 02-05-2021 19:19-0400 Body mass index (BMI) [Ratio] 31.9 kg/m2 Ena Fung CNP Work Phone: [facility] Work Phone: 02-05-2021 19:19-0400 Body surface area Derived from formula 1.9 m2 Ena Fung CNP Work Phone: [facility] Work Phone: 02-05-2021 19:19-0400 Body temperature 95.1 [degF] Ena Fung CNP Work Phone: [facility] Work Phone: 02-05-2021 19:19-0400 Body weight 84.37 kg Ena Fung CNP Work Phone: [facility] Work Phone: 02-05-2021 19:19-0400 Diastolic blood pressure 74 mm[Hg] Ena Fung CNP Work Phone: [facility] Work Phone: 02-05-2021 19:19-0400 Heart rate 62 /min Ena Fung CNP Work Phone: [facility] Work Phone: 02-05-2021 19:19-0400 Respiratory rate 18 /min Ena Fung CNP Work Phone: [facility] Work Phone: 02-05-2021 19:19-0400 SaO2% (BldA) [Mass fraction] 99 % Ena Fung CNP Work Phone: [facility] Work Phone: 02-05-2021 19:19-0400 Systolic blood pressure 110 mm[Hg] Ena Fung CNP Work Phone: [facility] Work Phone: 01-29-2021 06:32-0400 Body temperature 98.8 [degF] Antony Borges MD Work Phone: [employer] Work Phone: 01-29-2021 06:32-0400 Diastolic blood pressure 76 mm[Hg] Antony Borges MD Work Phone: [employer] Work Phone: 01-29-2021 06:32-0400 Heart rate 65 /min Antony Borges MD Work Phone: [employer] Work Phone: 01-29-2021 06:32-0400 Respiratory rate 16 /min Antony Borges MD Work Phone: [employer] Work Phone: 01-29-2021 06:32-0400 SaO2% (BldA) [Mass fraction] 99 % Antony Borges MD Work Phone: [employer] Work Phone: 01-29-2021 06:32-0400 Systolic blood pressure 134 mm[Hg] Antony Borges MD Work Phone: [employer] Work Phone: 01-08-2021 16:50-0400 Body height 162.56 cm Ena Fung CNP Work Phone: [facility] Work Phone: 01-08-2021 16:50-0400 Body mass index (BMI) [Ratio] 32.5 kg/m2 Ena Fung CNP Work Phone: [facility] Work Phone: 01-08-2021 16:50-0400 Body surface area Derived from formula 1.91 m2 Ena Fung CNP Work Phone: [facility] Work Phone: 01-08-2021 16:50-0400 Body temperature 96.2 [degF] Ena Fung CNP Work Phone: [facility] Work Phone: 01-08-2021 16:50-0400 Body weight 86 kg Ena Fung CNP Work Phone: [facility] Work Phone: 01-08-2021 16:50-0400 Diastolic blood pressure 90 mm[Hg] Ena Fung CNP Work Phone: [facility] Work Phone: 01-08-2021 16:50-0400 Heart rate 73 /min Ena Fung CNP Work Phone: [facility] Work Phone: 01-08-2021 16:50-0400 Respiratory rate 18 /min Ena Fung CNP Work Phone: [facility] Work Phone: 01-08-2021 16:50-0400 SaO2% (BldA) [Mass fraction] 99 % Ena Fung CNP Work Phone: [facility] Work Phone: 01-08-2021 16:50-0400 Systolic blood pressure 132 mm[Hg] Ena Fung CNP Work Phone: [facility] Work Phone: 01-03-2021 15:01-0400 Body temperature 98.01 [degF] Olaf Pineda MD Work Phone: [employer] Work Phone: 01-03-2021 15:01-0400 Diastolic blood pressure 64 mm[Hg] Olaf Pineda MD Work Phone: [employer] Work Phone: 01-03-2021 15:01-0400 Heart rate 55 /min Olaf Pineda MD Work Phone: [employer] Work Phone: 01-03-2021 15:01-0400 Respiratory rate 16 /min Olaf Pineda MD Work Phone: [employer] Work Phone: 01-03-2021 15:01-0400 SaO2% (BldA) [Mass fraction] 100 % Olaf Pineda MD Work Phone: [employer] Work Phone: 01-03-2021 15:01-0400 Systolic blood pressure 112 mm[Hg] Olaf Pineda MD Work Phone: [employer] Work Phone: 01-03-2021 04:00-0400 Body mass index (BMI) [Ratio] 32.17 kg/m2 Olaf Pineda MD Work Phone: [employer] Work Phone: 01-03-2021 04:00-0400 Body weight 85 kg Olaf Pineda MD Work Phone: [employer] Work Phone: 01-02-2021 12:28-0400 Body height 162.6 cm Olaf Pineda MD Work Phone: [employer] Work Phone: 11-22-2020 11:51-0400 Body mass index (BMI) [Ratio] 32.61 kg/m2 Santhosh Schwab MD Work Phone: [employer] Work Phone: 11-22-2020 11:51-0400 Body temperature 98.49 [degF] Santhosh Schwab MD Work Phone: [employer] Work Phone: 11-22-2020 11:51-0400 Body weight 86.18 kg Santhosh Schwab MD Work Phone: [employer] Work Phone: 11-22-2020 11:51-0400 Diastolic blood pressure 73 mm[Hg] Santhosh Schwab MD Work Phone: [employer] Work Phone: 11-22-2020 11:51-0400 Heart rate 64 /min Santhosh Schwab MD Work Phone: [employer] Work Phone: 11-22-2020 11:51-0400 Respiratory rate 16 /min Santhosh Schwab MD Work Phone: [employer] Work Phone: 11-22-2020 11:51-0400 SaO2% (BldA) [Mass fraction] 98 % Santhosh Schwab MD Work Phone: [employer] Work Phone: 11-22-2020 11:51-0400 Systolic blood pressure 127 mm[Hg] Santhosh Schwab MD Work Phone: [employer] Work Phone: 09-04-2020 15:16-0500 BMI (Body Mass Index) 34 kg/m2 [facility] Work Phone: 09-04-2020 15:16-0500 Body Temperature 97.9 [degF] [facility] [facility]: 09-04-2020 15:16-0500 Body weight 89.81 kg [facility] Work Phone: 09-04-2020 15:16-0500 BP Diastolic 100 mm[Hg] [facility] Work Phone: 09-04-2020 15:16-0500 BP Systolic 140 mm[Hg] [facility] Work Phone: 09-04-2020 15:16-0500 BSA (Body Surface Area) 1.95 m2 [facility] Work Phone: 09-04-2020 15:16-0500 Height 162.56 cm [facility] Work Phone: 09-04-2020 15:16-0500 Pulse (Heart Rate) 91 /min [facility] Work Phone: 09-04-2020 15:16-0500 Pulse Oximetry 98 % [facility] Work Phone: 09-04-2020 15:16-0500 Respiratory Rate 14 /min [facility] Work Phone: 09-04-2020 15:16-0500 SaO2% (BldA) [Mass fraction] 98 % [facility] Work Phone: [facility] Work Phone: 08-29-2020 07:06-0500 Body Temperature 98.1 [degF] Mariana Adames [facility] Work Phone: 08-29-2020 07:06-0500 BP Diastolic 58 mm[Hg] [facility] Work Phone: 08-29-2020 07:06-0500 BP Systolic 112 mm[Hg] Mariana Adames [employer] Phone: 08-29-2020 07:06-0500 Pulse (Heart Rate) 53 /min Mariana Adames [employer] Phone: 08-29-2020 07:06-0500 Pulse Oximetry 95 % Mariana Adames [employer] Phone: 08-29-2020 07:06-0500 Respiratory Rate 16 /min Mariana Adames [employer] Phone: 08-29-2020 04:06-0500 BMI (Body Mass Index) 34.02 kg/m2 Mariana Adames [employer] Phone: 08-29-2020 04:06-0500 Body weight 89.9 kg Mariana Adames [employer] Phone: 08-28-2020 07:50-0500 Height 162.6 cm Mariana [facility] Phone: 06-17-2020 13:37-0500 BP Diastolic 57 mm[Hg] [employer]na [employer] , [place] 06-17-2020 13:37-0500 BP Systolic 118 mm[Hg] Ena [employer] , [place] 06-17-2020 13:37-0500 Pulse (Heart Rate) 57 /min Ena [employer], [place] 06-17-2020 13:37-0500 Pulse Oximetry 99 % Ena [employer]ater[employer] , [place] 06-17-2020 13:37-0500 Respiratory Rate 16 /min Ena Prater[facility], [place] 06-17-2020 10:28-0500 BMI (Body Mass Index) 33.81 kg/m2 Ena [employer]ater[employer], [place] 06-17-2020 10:28-0500 Body Temperature 96.8 [degF] Ena KentonLocalCustomer O [employer], [place] 06-17-2020 10:28-0500 Body weight 89.36 kg [facility] , [place] 06-17-2020 10:28-0500 Height 162.6 cm [facility] , [place] 05-02-2020 13:35-0400 BMI (Body Mass Index) 33.8 kg/m2 [facility] Work Phone: 05-02-2020 13:35-0400 Body weight 90.72 kg [facility] Work Phone: 05-02-2020 13:35-0400 BSA (Body Surface Area) 1.97 m2 [facility] Work Phone: 05-02-2020 13:35-0400 Height 163.83 cm [facility] Work Phone: 04-28-2020 15:50-0400 BP Diastolic 77 mm[Hg] [facility] , [place] 04-28-2020 15:50-0400 BP Systolic 142 mm[Hg] [facility] [place] 04-28-2020 15:48-0400 BMI (Body Mass Index) 32.44 kg/m2 [facility] 04-28-2020 15:48-0400 Body Temperature 97.11 [degF] [facility], [place] 04-28-2020 15:48-0400 Body weight 85.73 kg [facility] , [place] 04-28-2020 15:48-0400 Height 162.6 cm [facility] [place] 04-28-2020 15:48-0400 Pulse (Heart Rate) 74 /min [facility], [place] 04-28-2020 15:48-0400 Pulse Oximetry 98 % [facility] , [place] 04-28-2020 15:48-0400 Respiratory Rate 12 /min [facility], [place] 01-15-2020 10:04-0400 Body height 163.83 cm Ena Kenton [facility] Work Phone: [facility] Work Phone: Comment on above: self 01-15-2020 10:04-0400 Body mass index (BMI) [Ratio] 33.8 kg/m2 Ena Fung CNP Work Phone: [facility] Work Phone: Comment on above: self 01-15-2020 10:04-0400 Body surface area Derived from formula 1.97 m2 Ena Fung CNP Work Phone: [facility] Work Phone: Comment on above: self 01-15-2020 10:04-0400 Body weight 90.72 kg Ena Fung CNP Work Phone: [facility] Work Phone: Comment on above: self 12-30-2019 06:34-0400 Body Temperature 97.7 [degF] Ameer [employer], [place] 12-30-2019 06:34-0400 BP Diastolic 64 mm[Hg] [employer]me[employer] , [place] 12-30-2019 06:34-0400 BP Systolic 114 mm[Hg] A[employer] , [place] 12-30-2019 06:34-0400 Pulse (Heart Rate) 70 /min [employer] [place] 12-30-2019 06:34-0400 Pulse Oximetry 98 % Ame[employer] , [place] 12-30-2019 06:34-0400 Respiratory Rate 17 /min Ameer [facility], [place] 12-29-2019 09:45-0400 BP Diastolic 64 mm[Hg] Rl [employer] , [place] 12-29-2019 09:45-0400 BP Systolic 118 mm[Hg] Rl [employer] , [place] 12-29-2019 09:45-0400 Pulse (Heart Rate) 54 /min [facility] [place] 12-29-2019 09:45-0400 Pulse Oximetry 99 % Rl [employer] , [place] 12-29-2019 09:45-0400 Respiratory Rate 16 /min Rl Boyer [employer] , [place] 12-29-2019 07:38-0400 Body Temperature 98.8 [degF] Rl Boyer [facility], [place] 12-29-2019 06:32-0400 BMI (Body Mass Index) 34.81 kg/m2 Rl Boyer [facility], [place] 12-29-2019 06:32-0400 Body Temperature 97 [degF] Rl [employer] , [place] 12-29-2019 06:32-0400 Body weight 92 kg Rl Blanc [facility] , [place] 12-29-2019 06:32-0400 BP Diastolic 68 mm[Hg] Rl Blanc [facility] , [place] 12-29-2019 06:32-0400 BP Systolic 114 mm[Hg] Rl Blanc [facility] , [place] 12-29-2019 06:32-0400 Pulse (Heart Rate) 52 /min Rl Blanc [facility], [place] 12-29-2019 06:32-0400 Pulse Oximetry 97 % Rl Blanc [facility] , [place] 12-29-2019 06:32-0400 Respiratory Rate 14 /min Rl Boyer [facility], [place] 12-28-2019 14:00-0400 Height 162.6 cm Rl Boyer [facility] , [place] 10-10-2019 11:56-0400 Body Temperature 97.9 [degF] Terrence Lyle [facility], [place] 10-10-2019 11:56-0400 BP Diastolic 77 mm[Hg] [facility] , [place] 10-10-2019 11:56-0400 BP Systolic 152 mm[Hg] Terrence Lyle [facility], [place] 10-10-2019 11:56-0400 Pulse (Heart Rate) 73 /min Terrence Lyle [facility], [place] 10-10-2019 11:56-0400 Pulse Oximetry 96 % Terrence Lyle [facility] , [place] 10-10-2019 11:56-0400 Respiratory Rate 14 /min Terrence Lyle [facility], [place] 10-10-2019 11:30-0400 BMI (Body Mass Index) 30.55 kg/m2 Terrence Boyer [facility], [place] 10-10-2019 11:30-0400 Body weight 80.74 kg Terrence Boyer [facility], [place] 10-10-2019 11:30-0400 Height 162.6 cm Terrence Boyer [facility] , [place] 08-29-2019 13:47-0500 BP Diastolic 65 mm[Hg] Ena Fung [employer] Work Phone: 08-29-2019 13:47-0500 BP Systolic 137 mm[Hg] Ena [employer] Work Phone: 08-29-2019 11:57-0500 BMI (Body Mass Index) 31.93 kg/m2 Ena [employer] Work Phone: 08-29-2019 11:57-0500 Body Temperature 97.81 [degF] Ena [employer] Work Phone: 08-29-2019 11:57-0500 Body weight 84.37 kg Ena [employer] Work Phone: 08-29-2019 11:57-0500 Height 162.6 cm Ena [employer] Work Phone: 08-29-2019 11:57-0500 Pulse (Heart Rate) 68 /min Ena [employer] Work Phone: 08-29-2019 11:57-0500 Pulse Oximetry 97 % Ena [employer] Work Phone: 08-29-2019 11:57-0500 Respiratory Rate 16 /min Ena [employer] Work Phone: 08-21-2019 13:18-0500 Diastolic blood pressure 70 mm[Hg] Janae Landon MD Work Phone: [employer] Work Phone: 08-21-2019 13:18-0500 Heart rate 62 /min Janae Landon MD Work Phone: [employer] Work Phone: 08-21-2019 13:18-0500 Respiratory rate 18 /min Janae Landon MD Work Phone: [employer] Work Phone: 08-21-2019 13:18-0500 SaO2% (BldA) [Mass fraction] 98 % Janae Landon MD Work Phone: [employer] Work Phone: 08-21-2019 13:18-0500 Systolic blood pressure 130 mm[Hg] Janae Landon MD Work Phone: [employer] Work Phone: 08-21-2019 09:14-0500 Body mass index (BMI) [Ratio] 31.93 kg/m2 Janae Landon MD Work Phone: [employer] Work Phone: 08-21-2019 09:14-0500 Body temperature 98.01 [degF] Janae Landon MD Work Phone: [employer] Work Phone: 08-21-2019 09:14-0500 Body weight 84.37 kg Janae Landon MD Work Phone: [employer] Work Phone: 06-08-2019 20:30-0500 BP Diastolic 85 mm[Hg] [facility]iana [facility] , [place] 06-08-2019 20:30-0500 BP Systolic 154 mm[Hg] [facility] , [place] 06-08-2019 20:30-0500 Pulse (Heart Rate) 84 /min Mariana Adames[facility] CenterThe News [facility]UN[facility], [place] 06-08-2019 20:30-0500 Respiratory Rate 18 /min [facility] [place] 06-08-2019 19:10-0500 BMI (Body Mass Index) 30.55 kg/m2 Mariana Adames [employer] [facility], [place] 11-21-2019 19:10-0500 Body weight 80.74 kg Mariana [facility] , [place] 06-08-2019 19:10-0500 Height 162.6 cm Mariana Adames [facility] , [place] 06-08-2019 18:58-0500 Body Temperature 97.59 [degF] Mariana [facility]ames [facility], [place] 06-08-2019 18:57-0500 Pulse Oximetry 98 % Mariana Boyer [facility] , [place] 04-21-2019 08:30-0400 Body Temperature 97.7 [degF] Janae Mccabe [facility], [place] 04-21-2019 08:30-0400 BP Diastolic 67 mm[Hg] Janae Mccabe [facility] , [place] 04-21-2019 08:30-0400 BP Systolic 135 mm[Hg] Janae Mccabe [facility] , [place] 04-21-2019 08:30-0400 Pulse (Heart Rate) 77 /min Janae [facility]ccabe [facility], [place] 04-21-2019 08:30-0400 Pulse Oximetry 99 % Janae Mccabe [facility] , [place] 04-21-2019 08:30-0400 Respiratory Rate 21 /min Janae Boyer [facility], [place] 04-20-2019 04:39-0400 BMI (Body Mass Index) 32.75 kg/m2 Janae Boyer [facility], [place] 04-20-2019 04:39-0400 Body weight 86.55 kg Janae Boyer [facility] , [place] 04-20-2019 04:39-0400 Height 162.6 cm Janae Boyer [facility] , [place] 04-19-2019 18:33-0400 Pulse (Heart Rate) 67 /min Ena Fung [facility], [place] 04-19-2019 18:33-0400 Respiratory Rate 18 /min Ena Fung [facility], [place] 04-19-2019 18:22-0400 BP Diastolic 78 mm[Hg] Ena Fung [facility] , [place] 04-19-2019 18:22-0400 BP Systolic 150 mm[Hg] Ena Fung [facility] , [place] 04-19-2019 13:30-0400 Pulse Oximetry 99 % [facility] , [place] 04-19-2019 13:25-0400 BMI (Body Mass Index) 32.44 kg/m2 [facility] [place] 04-19-2019 13:25-0400 Body Temperature 97.39 [degF] Ena Kenton [facility], [place] 04-19-2019 13:25-0400 Body weight 85.73 kg [facility] , [place] 06-23-2018 17:46-0500 BMI (Body Mass Index) 30.76 kg/m2 [facility] 06-23-2018 17:46-0500 Body Temperature 97 [degF] [facility] 06-23-2018 17:46-0500 BP Diastolic 64 mm[Hg] [facility] 06-23-2018 17:46-0500 BP Systolic 108 mm[Hg] [facility] 06-23-2018 17:46-0500 BSA (Body Surface Area) 1.94 m2 [facility] 06-23-2018 17:46-0500 Height 163.83 cm [facility] 06-23-2018 17:46-0500 Pulse (Heart Rate) 70 /min [facility] 06-23-2018 17:46-0500 Pulse Oximetry 96 % [facility] 06-23-2018 17:46-0500 Respiratory Rate 20 /min [facility] 06-23-2018 17:46-0500 Weight 82.56 kg [facility] 04-26-2018 18:49-0400 BMI (Body Mass Index) 32.11 kg/m2 [facility] 04-26-2018 18:49-0400 Body Temperature 97.1 [degF] [facility] 04-26-2018 18:49-0400 BP Diastolic 80 mm[Hg] [facility] 04-26-2018 18:49-0400 BP Systolic 128 mm[Hg] [facility] 04-26-2018 18:49-0400 BSA (Body Surface Area) 1.98 m2 [facility] 04-26-2018 18:49-0400 Height 163.83 cm [facility] 04-26-2018 18:49-0400 Pulse (Heart Rate) 74 /min [facility] 04-26-2018 18:49-0400 Pulse Oximetry 95 % [facility] 04-26-2018 18:49-0400 Respiratory Rate 20 /min [facility] 04-26-2018 18:49-0400 Weight 86.18 kg [facility] 04-26-2018 17:49-0400 BMI (Body Mass Index) 32.11 kg/m2 [facility] 04-26-2018 17:49-0400 Body Temperature 97.1 [degF] [facility] 04-26-2018 17:49-0400 BP Diastolic 80 mm[Hg] [facility] 04-26-2018 17:49-0400 BP Systolic 128 mm[Hg] [facility] 04-26-2018 17:49-0400 BSA (Body Surface Area) 1.98 m2 [facility] 04-26-2018 17:49-0400 Height 163.83 cm [facility] 04-26-2018 17:49-0400 Pulse (Heart Rate) 74 /min [facility] 04-26-2018 17:49-0400 Pulse Oximetry 95 % [facility] 04-26-2018 17:49-0400 Respiratory Rate 20 /min [facility] 04-26-2018 17:49-0400 Weight 86.18 kg [facility] 01-20-2018 18:17-0400 BMI (Body Mass Index) 31.62 kg/m2 [facility] 01-20-2018 18:17-0400 Body Temperature 98.2 [degF] [facility] 01-20-2018 18:17-0400 BP Diastolic 80 mm[Hg] [facility] 01-20-2018 18:17-0400 BP Systolic 110 mm[Hg] [facility] 01-20-2018 18:17-0400 BSA (Body Surface Area) 1.97 m2 [facility] 01-20-2018 18:17-0400 Height 163.83 cm [facility] 01-20-2018 18:17-0400 Pulse (Heart Rate) 84 /min [facility] 01-20-2018 18:17-0400 Pulse Oximetry 97 % [facility] 01-20-2018 18:17-0400 Respiratory Rate 18 /min [facility] 01-20-2018 18:17-0400 Weight 84.88 kg [facility] 01-20-2018 17:17-0400 BMI (Body Mass Index) 31.62 kg/m2 [facility] 01-20-2018 17:17-0400 Body Temperature 98.2 [degF] [facility] 01-20-2018 17:17-0400 BP Diastolic 80 mm[Hg] [facility] 01-20-2018 17:17-0400 BP Systolic 110 mm[Hg] [facility] 01-20-2018 17:17-0400 BSA (Body Surface Area) 1.97 m2 [facility] 01-20-2018 17:17-0400 Height 163.83 cm [facility] 01-20-2018 17:17-0400 Pulse (Heart Rate) 84 /min [facility] 01-20-2018 17:17-0400 Pulse Oximetry 97 % [facility] 01-20-2018 17:17-0400 Respiratory Rate 18 /min [facility] 01-20-2018 17:17-0400 Weight 84.88 kg [facility] 10-15-2017 14:10-0400 BP Diastolic 80 mm[Hg] [facility] 10-15-2017 14:10-0400 BP Systolic 125 mm[Hg] [facility] 10-15-2017 14:02-0400 BMI (Body Mass Index) 31.6 kg/m2 [facility] 10-15-2017 14:02-0400 Body Temperature 97.2 [degF] [facility] 10-15-2017 14:02-0400 BP Diastolic 90 mm[Hg] [facility] 10-15-2017 14:02-0400 BP Systolic 140 mm[Hg] [facility] 10-15-2017 14:02-0400 BSA (Body Surface Area) 1.96 m2 [facility] 10-15-2017 14:02-0400 Height 163.83 cm [facility] 10-15-2017 14:02-0400 Pulse (Heart Rate) 77 /min [facility] 10-15-2017 14:02-0400 Pulse Oximetry 96 % [facility] 10-15-2017 14:02-0400 Respiratory Rate 20 /min [facility] 10-15-2017 14:02-0400 Weight 84.82 kg [facility] 10-15-2017 13:10-0400 BP Diastolic 80 mm[Hg] [facility] 10-15-2017 13:10-0400 BP Systolic 125 mm[Hg] [facility] 10-15-2017 13:02-0400 BMI (Body Mass Index) 31.6 kg/m2 [facility] 10-15-2017 13:02-0400 Body Temperature 97.2 [degF] [facility] 10-15-2017 13:02-0400 BP Diastolic 90 mm[Hg] [facility] 10-15-2017 13:02-0400 BP Systolic 140 mm[Hg] [facility] 10-15-2017 13:02-0400 BSA (Body Surface Area) 1.96 m2 [facility] 10-15-2017 13:02-0400 Height 163.83 cm [facility] 10-15-2017 13:02-0400 Pulse (Heart Rate) 77 /min [facility] 10-15-2017 13:02-0400 Pulse Oximetry 96 % [facility] 10-15-2017 13:02-0400 Respiratory Rate 20 /min [facility] 10-15-2017 13:02-0400 Weight 84.82 kg [facility] 10-05-2017 14:12-0400 BMI (Body Mass Index) 31.77 kg/m2 [facility] 10-05-2017 14:12-0400 Body Temperature 97.1 [degF] [facility] 10-05-2017 14:12-0400 BP Diastolic 75 mm[Hg] [facility] 10-05-2017 14:12-0400 BP Systolic 135 mm[Hg] [facility] 10-05-2017 14:12-0400 BSA (Body Surface Area) 1.97 m2 [facility] 10-05-2017 14:12-0400 Height 163.83 cm [facility] 10-05-2017 14:12-0400 Pulse (Heart Rate) 63 /min [facility] 10-05-2017 14:12-0400 Pulse Oximetry 99 % [facility] 10-05-2017 14:12-0400 Respiratory Rate 20 /min [facility] 10-05-2017 14:12-0400 Weight 85.28 kg [facility] 10-05-2017 13:12-0400 BMI (Body Mass Index) 31.77 kg/m2 [facility] 10-05-2017 13:12-0400 Body Temperature 97.1 [degF] [facility] 10-05-2017 13:12-0400 BP Diastolic 75 mm[Hg] [facility] 10-05-2017 13:12-0400 BP Systolic 135 mm[Hg] [facility] 10-05-2017 13:12-0400 BSA (Body Surface Area) 1.97 m2 [facility] 10-05-2017 13:12-0400 Height 163.83 cm [facility] 10-05-2017 13:12-0400 Pulse (Heart Rate) 63 /min [facility] 10-05-2017 13:12-0400 Pulse Oximetry 99 % [facility] 10-05-2017 13:12-0400 Respiratory Rate 20 /min [facility] 10-05-2017 13:12-0400 Weight 85.28 kg [facility] 03-23-2017 17:42-0400 BMI (Body Mass Index) 30.93 kg/m2 [facility] 03-23-2017 17:42-0400 Body Temperature 97.8 [degF] [facility] 03-23-2017 17:42-0400 BP Diastolic 86 mm[Hg] [facility] 03-23-2017 17:42-0400 BP Systolic 138 mm[Hg] [facility] 03-23-2017 17:42-0400 BSA (Body Surface Area) 1.94 m2 [facility] 03-23-2017 17:42-0400 Height 163.83 cm [facility] 03-23-2017 17:42-0400 Pulse (Heart Rate) 77 /min [facility] 03-23-2017 17:42-0400 Pulse Oximetry 97 % [facility] 03-23-2017 17:42-0400 Respiratory Rate 18 /min [facility] 03-23-2017 17:42-0400 Weight 83.01 kg [facility] 03-23-2017 16:42-0400 BMI (Body Mass Index) 30.93 kg/m2 [facility] 03-23-2017 16:42-0400 Body Temperature 97.8 [degF] [facility] 03-23-2017 16:42-0400 BP Diastolic 86 mm[Hg] [facility] 03-23-2017 16:42-0400 BP Systolic 138 mm[Hg] [facility] 03-23-2017 16:42-0400 BSA (Body Surface Area) 1.94 m2 [facility] 03-23-2017 16:42-0400 Height 163.83 cm [facility] 03-23-2017 16:42-0400 Pulse (Heart Rate) 77 /min [facility] 03-23-2017 16:42-0400 Pulse Oximetry 97 % [facility] 03-23-2017 16:42-0400 Respiratory Rate 18 /min [facility] 03-23-2017 16:42-0400 Weight 83.01 kg [facility] Encounters Encounter Date Encounter Type Care Provider Facility Start: 06-06-2024 End: 06-10-2024 ambulatory ROBERT BARBOSA [facility] Start: 06-05-2024 End: 06-05-2024 Emergency department patient visit ENA FUNG [facility] Start: 03-12-2024 End: 03-12-2024 Emergency department patient visit ENA FUNG [facility] ED Comment on above: Other chest pain (Pr imary Dx); Hypokalemia; Grief reaction Start: 02-08-2024 End: 02-08-2024 [facility] visit, estab pt Margarita Reza LAY UP OPERATOR Work Phone: [facility] Work Phone: Start: 02-08-2024 End: 02-08-2024 ambulatory Ena 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 Work Phone: [facility] Work Phone: Start: 01-27-2024 End: 01-27-2024 Patient encounter procedure Ena 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 Work Phone: [facility] Work Phone: Start: 01-27-2024 End: 01-27-2024 [facility] visit, estab pt Oliva LANCASTER Work Phone: [facility] Work Phone: Start: 01-27-2024 End: 01-27-2024 ambulatory Ean 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 Work Phone: [facility] Work Phone: Start: 01-25-2024 End: 01-25-2024 Emergency department patient visit JANAE Patel [facility] Start: 01-18-2024 End: 01-18-2024 Subsequent hospital visit by physician Nat Mora MD Work Phone: [email or web address] Comment on above: Canceled (Michelle-No Show) Start: 12-23-2023 End: 12-23-2023 Emergency department patient visit Jaxson Ferrer MD Work Phone: [facility] Comment on above: Atypical chest pain (Primary Dx) Start: 12-07-2023 End: 12-07-2023 ambulatory ENA FUNG [facility] Start: 09-13-2023 ambulatory Enajosefa silva OIL DISTRIBUTOR-SUPERINTENDENT PRESSURE Facility:Pulmonology & Critical Care Medicine [facility] Start: 09-07-2023 End: 09-07-2023 [facility] visit, estab pt Ena Kenton SUPERINTENDENT PR[employer]URE Work Phone: [facility] Work Phone: Start: 09-07-2023 End: 09-07-2023 General Vicky Call SUPERINTENDENT PRESSURE Work Phone: [facility] Work Phone: Start: 08-20-2023 End: 08-20-2023 [facility] visit, estab pt Vicky Jakub SUPERINTENDENT PRESSURE Work Phone: [facility] Work Phone: Start: 08-16-2023 End: 08-18-2023 Evaluation and management of inpatient CAR Brown MATTHEWS [facility] Start: 08-12-2023 End: 08-12-2023 Emergency department [facility] [place] [facility] Comment on above: Abdominal pain, epig astric (Primary Dx); Hypokalemia Start: 08-04-2023 End: 08-04-2023 [facility] visit, estab pt Ena Kenton [place] Work Phone: [facility] Work Phone: Start: 07-20-2023 End: 07-20-2023 Emergency department patient visit Lisa Blackman DO Work Phone: [facility] Comment on above: Acute pharyngitis, u nspecified etiology (Primary Dx) Start: 05-06-2023 End: 05-06-2023 ambulatory RONAN RODRIGUEZ [facility] Start: 04-29-2023 End: 05-01-2023 ambulatory CAROLINE CARRION [facility] Start: 04-23-2023 End: 04-24-2023 ambulatory ENA FUNG [facility] Start: 03-11-2023 End: 03-11-2023 Subsequent hospital visit by physician [facility] Rm 03 [facility] Comment on above: Dog bite, initial en counter (Primary Dx) Start: 03-09-2023 End: 03-10-2023 ambulatory Asim Lucero MD Facility:[facility] Start: 03-05-2023 End: 03-05-2023 Emergency department patient visit Ena Fung APRN - SUPERINTENDENT PRESSURE Work Phone: [facility] Comment on above: Dog bite of left thi gh, initial encounter (Primary Dx); Dog bite of left wrist, initial encounter; Dog bite of left hand, initial encounter Start: 02-22-2023 End: 02-22-2023 Emergency department patient visit Ena Fung APRN - SUPERINTENDENT PRESSURE Work Phone: [facility] Comment on above: Abdominal pain, righ t lower quadrant (Primary Dx) Start: 02-01-2023 End: 02-01-2023 General Ena Fung CNP Work Phone: [facility] Work Phone: Start: 02-01-2023 End: 02-01-2023 [facility] visit, estab pt Ena Fung CNP Work Phone: [facility] Work Phone: Start: 12-21-2022 End: 12-21-2022 Emergency department patient visit Ena Fung APRN - SUPERINTENDENT PRESSURE Work Phone: [facility] Comment on above: Injury of left shoul holden, initial encounter (Primary Dx); Sprain of right knee, unspecified ligament, initial encounter; Sprain of left wrist, initial encounter Start: 12-21-2022 End: 12-21-2022 [facility] visit, estab pt Ena Fung CNP Work Phone: [facility] Work Phone: Start: 11-19-2022 End: 11-19-2022 [facility] visit, estab pt Oliva LANCASTER Work Phone: [facility] Work Phone: Start: 11-19-2022 End: 11-19-2022 ambulatory Ena Fung CNP Work Phone: [facility] Work Phone: Start: 11-18-2022 End: 11-18-2022 Subsequent hospital visit by physician [facility] Echo Room [facility] Echocardiography Comment on above: Atypical chest pain Start: 08-20-2022 End: 08-20-2022 Subsequent hospital visit by physician Ronan Rodriguez MD Work Phone: [facility] DIRECTOR CLINICAL OPERATIONS Start: 08-20-2022 End: 08-20-2022 Emergency department patient visit Ena Fung APRN - SUPERINTENDENT PRESSURE Work Phone: [facility] ED Comment on above: Other chest pain (Pr imary Dx) Start: 07-28-2022 End: 07-28-2022 Emergency department patient visit Jaxson Ferrer MD Work Phone: [facility] ED Comment on above: Acute gastritis, pre sence of bleeding unspecified, unspecified gastritis type (Primary Dx); Nausea and vomiting, unspecified vomiting type; S/P PTCA (percutaneous transluminal coronary angioplasty) Start: 05-07-2022 End: 05-09-2022 Subsequent hospital visit by physician [facility] Mri Scanner [facility] MRI Comment on above: Cervical radiculopat hy at C6; Cervical disc disorder at C5-C6 level with myelopathy Start: 05-01-2022 End: 05-01-2022 Emergency department patient visit Thad Berrios MD [facility] ED Comment on above: Right leg pain (Prim james Dx); Fall, initial encounter Start: 04-13-2022 End: 04-13-2022 [facility] visit[facility] Work Phone: [facility] Work Phone: Start: 04-13-2022 End: 04-13-2022 FQHC visit, estab pt Ena 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 Work Phone: [facility] Work Phone: Start: 02-03-2022 End: 02-05-2022 Subsequent hospital visit by physician [facility] Ultrasound Room 2 At [facility] Ultrasound Comment on above: Abdominal pain, gene ralized Start: 01-30-2022 End: 01-30-2022 FQHC visit, estab pt Ronda Dorsey [facility] Work Phone: [facility] Work Phone: Start: 12-19-2021 End: 12-19-2021 Emergency department patient visit Santhosh Schwab MD Work Phone: [facility] ED Comment on above: Acute pharyngitis, u nspecified etiology (Primary Dx) Start: 11-26-2021 End: 11-26-2021 FQHC visit, estab pt Ena 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 Work Phone: [facility] Work Phone: Start: 11-21-2021 End: 11-21-2021 Emergency department patient visit Ena Fung OIL DISTRIBUTOR - SUPERINTENDENT PRESSURE Work Phone: [facility] ED Comment on above: Left cervical radicu lopathy (Primary Dx) Start: 11-06-2021 End: 11-06-2021 Subsequent hospital visit by physician [facility] [employer] [facility] Start: 10-30-2021 End: 10-30-2021 Subsequent hospital visit by physician Ronan Rodriguez MD Work Phone: [facility] DIRECTOR CLINICAL OPERATIONS Start: 10-27-2021 End: 10-27-2021 General Ena 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 Work Phone: [facility] Work Phone: Start: 10-27-2021 End: 10-27-2021 FQHC visit, estab pt Ena 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 Work Phone: [facility] Work Phone: Start: 10-27-2021 End: 10-27-2021 General Ena Kenton SUPERINTENDENT PRESSURE Work Phone: [facility] Work Phone: Start: 10-20-2021 End: 10-23-2021 Evaluation and management of inpatient ENA FUNG [place] Start: 10-19-2021 End: 10-23-2021 Evaluation and management of inpatient Janae Oropeza MD Work Phone: [facility] Comment on above: Cerebrovascular acci dent (CVA), unspecified mechanism (HCC) (Primary Dx) Start: 10-19-2021 End: 10-19-2021 Emergency department patient visit Olaf Pineda MD Work Phone: [facility] ED Comment on above: Cerebrovascular acci dent (CVA), unspecified mechanism (HCC) (Primary Dx); Acute left-sided weakness; Transient diplopia; Headache above the eye region Start: 10-13-2021 End: 10-13-2021 [facility] Rondamassiel Plummermons [facility] Work Phone: [facility] Work Phone: Start: 10-13-2021 End: 10-13-2021 FQHC visit, estab pt Ena 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 Work Phone: [facility] Work Phone: Start: 10-06-2021 End: 10-07-2021 Emergency department patient visit Santhosh Schwab MD Work Phone: [facility] Comment on above: Other chest pain (Pr imary Dx) Start: 08-18-2021 End: 08-22-2021 Patient encounter status [facility] Schedule [facility] PRE ADMIT Start: 08-18-2021 End: 08-22-2021 Subsequent hospital visit by physician [facility] Covid19 Pat Screening Schedule [facility] PRE ADMIT Comment on above: Preop testing (Prima ry Dx) Start: 08-14-2021 End: 08-18-2021 Patient encounter status Geoff Chu MD Work Phone: [facility] PRE ADMIT Start: 08-14-2021 End: 08-18-2021 Subsequent hospital visit by physician Geoff Chu MD Work Phone: [facility] PRE ADMIT Comment on above: Pre-op testing Start: 07-24-2021 End: 07-24-2021 Patient encounter procedure Ena Fung OIL DISTRIBUTOR - SUPERINTENDENT PRESSURE Work Phone: [facility] Laboratory Start: 07-24-2021 End: 07-24-2021 Subsequent hospital visit by physician Ena Fung APRN - SUPERINTENDENT PRESSURE Work Phone: [facility] Laboratory Comment on above: Vulval lesion; Women's annual routine gynecological examination Start: 07-08-2021 End: 07-08-2021 Emergency department patient visit Ena Fung OIL DISTRIBUTOR - SUPERINTENDENT PRESSURE Work Phone: [facility] ED Comment on above: Right arm pain (Prim james Dx) Start: 06-19-2021 End: 06-19-2021 Subsequent hospital visit by physician Nat Mora MD Work Phone: [facility] DIRECTOR CLINICAL OPERATIONS Comment on above: Arrived Start: 06-06-2021 End: 06-06-2021 Emergency department patient visit Mariana Adames DO Work Phone: [facility] ED Comment on above: Stable angina (HCC) (Primary Dx); Dizziness Start: 05-22-2021 End: 05-22-2021 Emergency department patient visit Ruiz Romero MD Work Phone: [facility] ED Comment on above: Acute left-sided low back pain, unspecified whether sciatica present (Primary Dx) Start: 05-08-2021 End: 05-08-2021 General Ena 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 Work Phone: [facility] Work Phone: Start: 05-08-2021 End: 05-08-2021 General Ena 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 Work Phone: [facility] Work Phone: Start: 05-08-2021 End: 05-08-2021 General Ena Fung [facility] Work Phone: [facility] Work Phone: Start: 03-20-2021 End: 03-20-2021 Telemedicine consultation with patient Veronica Renteria SUPERINTENDENT PRESSURE Work Phone: [facility] Work Phone: Start: 03-20-2021 End: 05-08-2021 Telemedicine consultation with patient Ena Fung CNP Work Phone: [facility] Work Phone: Start: 03-20-2021 End: 03-20-2021 General Ena Fung CNP Work Phone: [facility] Work Phone: Start: 02-05-2021 End: 02-05-2021 FQ visit, estab pt Ena 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 Work Phone: [facility] Work Phone: Start: 01-29-2021 End: 01-29-2021 Emergency department patient visit Antony Borges MD Work Phone: [facility] ED Comment on above: Contusion of foot, u nspecified laterality, initial encounter (Primary Dx); Sprain of right ankle, unspecified ligament, initial encounter Start: 01-09-2021 End: 01-09-2021 Subsequent hospital visit by physician Ena Fung APRN - SUPERINTENDENT PRESSURE Work Phone: [facility] Laboratory Comment on above: Hypokalemia; Rectal bleeding Start: 01-08-2021 End: 01-08-2021 FQ visit, estab pt Ena Fung CNP Work Phone: [facility] Work Phone: Start: 01-01-2021 End: 01-03-2021 Evaluation and management of inpatient Ol[facility]ineda MD [facility] Comment on above: Rectal bleeding (Rowena aman Dx); Hypokalemia; Dehydration Start: 11-22-2020 End: 11-22-2020 Emergency department patient visit Santhosh Schwab MD Work Phone: [facility] ED Comment on above: Streptococcal sore t hroat (Primary Dx); Other elevated white blood cell count; Acute streptococcal pharyngitis Start: 09-19-2020 End: 09-23-2020 Subsequent hospital visit by physician Massiel Wolf19 Pat Screening Schedule [facility] PRE ADMIT Comment on above: Preoperative testing Start: 09-19-2020 End: 09-19-2020 Subsequent hospital visit by physician Ena Fung [facility] Laboratory Comment on above: Right sided abdomina l pain Start: 09-04-2020 End: 09-04-2020 Established patient Oliva Dia Work Phone: [facility] Work Phone: Start: 09-04-2020 End: 09-04-2020 Established patient Ena Fung Work Phone: [facility] Work Phone: Start: 08-27-2020 End: 08-29-2020 Evaluation and management of inpatient Mariana Adames Work Phone: [facility] MED SURG Comment on above: Abdominal pain, righ t lower quadrant (Primary Dx); Non-intractable vomiting with nausea, unspecified vomiting type Start: 07-05-2020 End: 07-05-2020 Subsequent hospital visit by physician [facility] Cardiology Stress Room [facility] Stress Lab Comment on above: Arrived Start: 07-04-2020 End: 07-04-2020 Subsequent hospital visit by physician [facility] Cardiology Stress Room [facility] Stress Lab Comment on above: Canceled (Provider) Atypical chest pain; Palpitations; ASHD (arteriosclerotic heart disease); S/P PTCA (percutaneous transluminal coronary angioplasty); Essential hypertension; Family history of premature CAD; Tobacco abuse counseling; Mixed hyperlipidemia; MATT (obstructive sleep apnea); Obesity (BMI 30.0-34.9) Start: 06-17-2020 End: 06-17-2020 Emergency department patient visit [facility] ED Comment on above: Chest pain, unspecif ied type (Primary Dx) Start: 06-04-2020 End: 06-04-2020 Telemedicine consultation with patient Tao Reece Work Phone: [facility] Work Phone: Start: 05-02-2020 End: 05-02-2020 Patient encounter procedure Oliva Dia Work Phone: [facility] Work Phone: Start: 05-02-2020 End: 05-02-2020 Telemedicine consultation with patient Ena Fung Work Phone: [facility] Work Phone: Start: 04-28-2020 End: 04-28-2020 Emergency department patient visit Enajosefa Fung [facility] ED Comment on above: Laceration of right little finger without foreign body without damage to nail, initial encounter (Primary Dx) Start: 02-22-2020 End: 02-22-2020 Subsequent hospital visit by physician Ena Fung [facility] Laboratory Comment on above: Vulvar cyst Start: 02-19-2020 End: 02-19-2020 Subsequent hospital visit by physician Hailey Ronquillo 1 [facility] Comment on above: Arrived Start: 02-14-2020 End: 02-14-2020 Subsequent hospital visit by physician [facility] Lab Drawing Room [facility] Laboratory Comment on above: Hot flashes Pre-op testing Start: 01-24-2020 End: 01-24-2020 Subsequent hospital visit by physician Ena Fung [facility] Laboratory Comment on above: Women's annual routi ne gynecological examination Start: 01-15-2020 End: 01-15-2020 Telemedicine consultation with patient Ena Fung Work Phone: [facility] Work Phone: Start: 01-11-2020 End: 01-11-2020 Subsequent hospital visit by physician Hailey Ronquillo 1 [facility] Start: 12-29-2019 End: 12-30-2019 Subsequent hospital visit by physician Michael Arroyo Work Phone: [facility] CAR 2 Comment on above: S/P PTCA (percutaneo us transluminal coronary angioplasty) Start: 12-29-2019 End: 12-29-2019 Subsequent hospital visit by physician Rl Blanc Work Phone: [facility] DIRECTOR CLINICAL OPERATIONS Start: 12-28-2019 End: 12-29-2019 Evaluation and management of inpatient Rl Blanc Work Phone: [facility] DIRECTOR CLINICAL OPERATIONS Start: 11-23-2019 End: 11-23-2019 Telemedicine consultation with patient Ena Fung Work Phone: [facility] Work Phone: Start: 10-20-2019 End: 10-20-2019 General Oliva Dia Work Phone: [facility] Work Phone: Start: 10-20-2019 End: 10-20-2019 Telemedicine consultation with patient Ena Fung Work Phone: [facility] Work Phone: Start: 10-09-2019 End: 10-10-2019 Evaluation and management of inpatient Terrence Lyle Work Phone: [facility] Neuro Comment on above: Stroke-like symptoms (Primary Dx) Start: 08-29-2019 End: 08-29-2019 Emergency department patient visit [facility] ED Comment on above: Benign paroxysmal po sitional vertigo of left ear (Primary Dx) Start: 08-21-2019 End: 08-21-2019 Emergency department patient visit Janae Landon MD Work Phone: [facility] ED Comment on above: Chest pain, unspecif ied type (Primary Dx); Dizziness Start: 06-08-2019 End: 06-08-2019 Emergency department patient visit Mariana Samir Adames Work Phone: [facility] ED Comment on above: Nausea vomiting and diarrhea (Primary Dx) Start: 04-19-2019 End: 04-21-2019 Evaluation and management of inpatient Janae Mccabe Work Phone: [facility] CAR 2 Comment on above: Stroke-like symptoms (Primary Dx) Start: 04-19-2019 End: 04-19-2019 Emergency department patient visit [facility] ED Comment on above: Acute nonintractable headache, unspecified headache type (Primary Dx); Perioral numbness Start: 06-23-2018 Office outpatient vi sit 15 minutes Ena Kenton Other [facility] Start: 04-26-2018 Office outpatient vi sit 15 minutes Ena Fung Other [facility] Start: 04-26-2018 Medical Ena Fung Other [facility] Start: 01-20-2018 End: 01-20-2018 Office outpatient visit 15 minutes Ena Fung Other [facility] Start: 10-15-2017 End: 10-15-2017 Medical Louis Bustos Other [facility] Start: 10-05-2017 Mammogram, both breasts [facility] Start: 10-05-2017 End: 10-05-2017 Office outpatient visit 15 minutes Ena Fung Other [facility] Start: 10-05-2017 Polysom 6/>yrs sleep 4/> addl [facility] Start: 10-05-2017 Polysom 6/>yrs sleep w/cpap 4/> addl [facility] Start: 03-23-2017 Laboratory examinati on, unspecified [facility] Start: 03-23-2017 Routine general medi gabriella examination at a health care facility [facility] Start: 03-23-2017 End: 03-23-2017 Initial preventive medicine new patient 40-64yrs Ena Fung Other [facility] Procedures Date Procedure Procedure Detail Performing Clinician Start: 03-12-2024 Assay of troponin quantitative M Kofi Richi OIL DISTRIBUTOR - SUPERINTENDENT PRESSURE Work Phone: Start: 03-12-2024 Radiologic exam chest single view Otto Ferrer MD Work Phone: Start: 03-12-2024 Basic metabolic panel calcium total Jaxson Ferrer MD Work Phone: Start: 03-12-2024 Ecg routine ecg w/least 12 lds w/i&r Jaxson Ferrer MD Work Phone: Start: 02-08-2024 Asthma Control Test/Baseline Evaluation Ena Fung CNP Work Phone: Start: 02-08-2024 Current tobacco non-user cad cap copd pv dm Ena Fung CNP Work Phone: Start: 02-08-2024 Drug test prsmv read direct optical obs pr date Ena Fung CNP Work Phone: Start: 01-27-2024 Most recent diastol blood pres >/equal 90 mm hg Ena Fung CNP Work Phone: Start: 01-27-2024 Most recent systolic blood pres>/equal 140 mm hg Ena Fung CNP Work Phone: Start: 01-27-2024 Pt-focused hlth risk assmt score doc stnd instrm Ena Fung CNP Work Phone: Start: 01-11-2024 Hysterectomy Ena Fung CNP Work Phone: Start: 12-23-2023 Assay of troponin quantitative Jaxson dias MD Work Phone: Start: 12-23-2023 Radiologic exam chest 2 views Jaxson Schaeffer dd, MD Work Phone: Start: 12-23-2023 Assay of magnesium Jaxson Ferrer MD Work Phone: Start: 12-23-2023 Ecg routine ecg w/least 12 lds w/i&r Jaxson Ferrer MD Work Phone: Start: 09-07-2023 Asthma discharge plan present Ena doherty CNP Work Phone: Start: 09-07-2023 Current tobacco non-user cad cap copd pv dm Ena Fung CNP Work Phone: Start: 09-07-2023 Iaadiadoo influenza Ena Fung CNP Work Phone: Start: 09-07-2023 Most recent diastolic blood pressure 80-89 mm hg Ena Fung CNP Work Phone: Start: 09-07-2023 Most recent systolic blood pressure <130 mm hg Ena Kenton SUPERINTENDENT PRESSURE Work Phone: Start: 08-20-2023 Current tobacco non-user cad cap copd pv dm Vicky Call SUPERINTENDENT PRESSURE Work Phone: Start: 08-20-2023 Most recent diastolic blood pressure < 80 mm hg Vicky Call SUPERINTENDENT PRESSURE Work Phone: Start: 08-20-2023 Most recent systolic blood press 130-139mm hg Vicky Call SUPERINTENDENT PRESSURE Work Phone: Start: 08-12-2023 Ct abdomen & pelvis w/contrast material Crystal Hitchcock PA-C Work Phone: Start: 08-12-2023 Radiologic exam chest single view Otto Ferrer MD Work Phone: Start: 08-12-2023 Ecg routine ecg w/least 12 lds w/i&r Jaxson Ferrer MD Work Phone: Start: 08-12-2023 Comprehensive metabolic panel Crystal Mendez Os borne PA-C Work Phone: Start: 08-04-2023 Current tobacco non-user cad cap copd pv dm Ena 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 Work Phone: Start: 08-04-2023 Most recent diastolic blood pressure 80-89 mm hg Ena 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 Work Phone: Start: 08-04-2023 Most recent systolic blood press 130-139mm hg Ena 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 Work Phone: Start: 08-04-2023 Psychotherapy w/patient 30 minutes Kaitl in Short LISWS Work Phone: Start: 07-20-2023 Iaad ia streptococcus group a Lisa A Bobrov DO Work Phone: Start: 03-05-2023 End: 03-05-2023 Radex wrist complete minimum 3 views Amy Gonsalez DO Work Phone: Start: 02-22-2023 Ct abdomen & pelvis w/contrast material Crystal Hitchcock PA-C Work Phone: Start: 02-22-2023 Urnls dip stick/tablet reagent auto microscopy Jaxson Ferrer MD Work Phone: Start: 02-22-2023 Comprehensive metabolic panel Jaxson Schaeffer dd, MD Work Phone: Start: 02-01-2023 Most recent diastolic blood pressure 80-89 mm hg Ena Fung CNP Work Phone: Start: 02-01-2023 Most recent systolic blood pressure <130 mm hg Ena Fung CNP Work Phone: Start: 12-21-2022 Most recent diastolic blood pressure < 80 mm hg Ena Fung CNP Work Phone: Start: 12-21-2022 Most recent systolic blood pressure <130 mm hg Ena Fung CNP Work Phone: Start: 12-21-2022 End: 12-21-2022 Radex wrist complete minimum 3 views Crystal Hitchcock PA-C Work Phone: Start: 11-19-2022 Back Surgery Ena Fung CNP Work Phone: Start: 11-19-2022 Gluc bld gluc mntr dev cleared fda spec home use Ena Fung CNP Work Phone: Start: 11-19-2022 Most recent diastolic blood pressure < 80 mm hg Ena Fung CNP Work Phone: Start: 11-19-2022 Most recent hemoglobin a1c level < 7.0% Ena Fung CNP Work Phone: Start: 11-19-2022 Most recent systolic blood pressure <130 mm hg Ena Fung CNP Work Phone: Start: 11-19-2022 Pt-focused hlth risk assmt score doc stnd instrm Ena Fung CNP Work Phone: Start: 11-18-2022 Echo tthrc r-t 2d w/wom-mode compl spec&colr d Caroline Carrion PAPreetC Work Phone: Start: 08-20-2022 Cardiac catheterization Ronan Rodriguez MD Work Phone: Start: 08-20-2022 Radiologic exam chest single view Otto Ferrer MD Work Phone: Start: 08-20-2022 End: 08-20-2022 Basic metabolic panel calcium total Jaxson Ferrer MD Work Phone: Start: 08-20-2022 BASIC TO COMPREHENSIVE UPGRADE Jaxson dias MD Work Phone: Start: 08-20-2022 Ecg routine ecg w/least 12 lds w/i&r Jaxson Ferrer MD Work Phone: Start: 07-28-2022 Ct abdomen & pelvis w/contrast material Jaxson Ferrer MD Work Phone: Start: 07-28-2022 Comprehensive metabolic panel Jaxson Schaeffer dd, MD Work Phone: Start: 07-28-2022 Urinalysis microscopic only Jaxson Ferrer MD Work Phone: Start: 07-28-2022 Urnls dip stick/tablet rgnt auto w/o microscopy Jaxson Ferrer MD Work Phone: Start: 05-07-2022 Mri spinal canal cervical w/o contrast osminl Gabo Cohen MD Work Phone: Start: 05-01-2022 End: 05-01-2022 Radex elbow complete minimum 3 views Thad Berrios MD Start: 05-01-2022 End: 05-01-2022 Ct cervical spine w/o contrast material Thad Berrios MD Start: 05-01-2022 Ct head/brain w/o contrast material Thad Berrios MD Start: 04-13-2022 Most recent diastolic blood pressure 80-89 mm hg Ena 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 Work Phone: Start: 04-13-2022 Most recent systolic blood pressure <130 mm hg Ena 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 Work Phone: Start: 04-13-2022 Psychotherapy w/patient 30 minutes [facility] Work Phone: Start: 02-03-2022 Us abdominal real time w/image limited Ena Fung OIL DISTRIBUTOR - SUPERINTENDENT PRESSURE Work Phone: Start: 01-30-2022 Blood occult fecal hgb deter ia qual feces 1-3 Ena 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 Work Phone: Start: 01-30-2022 Hernia repair Ena 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 Work Phone: Start: 01-30-2022 Hysterectomy Ena 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 Work Phone: Start: 01-30-2022 Most recent diastolic blood pressure < 80 mm hg Ena 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 Work Phone: Start: 01-30-2022 Most recent systolic blood pressure <130 mm hg Ena 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 Work Phone: Start: 01-30-2022 Psychotherapy w/patient 30 minutes Jyotsna Dorsey [facility] Work Phone: Start: 12-19-2021 COVID-19, RAPID Santhosh Schwab MD Work Phone: Start: 12-19-2021 Iaadiadoo streptococcus group a Santhosh Schwab MD Work Phone: Start: 11-26-2021 Most recent diastolic blood pressure < 80 mm hg Ena 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 Work Phone: Start: 11-26-2021 Most recent systolic blood pressure <130 mm hg Ena 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 Work Phone: Start: 11-21-2021 End: 11-21-2021 Radex spine cervical 4 or [facility] Work Phone: Start: 11-06-2021 Cardiac catheterization Ronan Rodriguez MD Work Phone: Start: 10-30-2021 Cardiac catheterization Ronan Rodriguez MD Work Phone: Start: 10-27-2021 Most recent diastolic blood pressure < 80 mm hg Ena 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 Work Phone: Start: 10-27-2021 Most recent systolic blood pressure <130 mm hg Ena 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 Work Phone: Start: 10-23-2021 BASIC METABOLIC PANEL W/ REFLEX TO MG FOR LOW K Chris Duran MD Work Phone: Start: 10-23-2021 Blood count complete auto&auto difrntl wbc Chris Duran MD Work Phone: Start: 10-21-2021 BASIC METABOLIC PANEL W/ REFLEX TO MG FOR LOW K Chris Duran MD Work Phone: Start: 10-21-2021 Blood count complete auto&auto difrntl wbc Chris Duran MD Work Phone: Start: 10-21-2021 Echo tthrc r-t 2d w/wom-mode compl spec&colr d Zaki Mcbride DO Work Phone: Start: 10-20-2021 Ct head/brain w/o contrast material Zaki Mcbride DO Work Phone: Start: 10-20-2021 Mri brain brain stem w/o contrast material Zaki Mcbride DO Work Phone: Start: 10-20-2021 BASIC METABOLIC PANEL W/ REFLEX TO MG FOR LOW K Zaki Mcbride DO Work Phone: Start: 10-20-2021 Hemoglobin glycosylated a1c Zaki Gomez ch DO Work Phone: Start: 10-20-2021 Lipid panel Zaki Mcbride DO Work Phone: Start: 10-20-2021 Ecg routine ecg w/least 12 lds i&r only Zaki Mcbride DO Work Phone: Start: 10-20-2021 COVID-19, RAPID Deshawn C Garcia DO Work Phone: Start: 10-19-2021 Ecg routine ecg w/least 12 lds w/i&r Olaf Pineda MD Work Phone: Start: 10-19-2021 Radiologic exam chest single view Lakshmi Pineda MD Work Phone: Start: 10-19-2021 GLUCOSE, WHOLE BLOOD Olaf Pineda MD Work Phone: Start: 10-19-2021 Ct head/brain w/o contrast material Olaf Pineda MD Work Phone: Start: 10-19-2021 Ct angiography neck w/contrast/noncontrast Olaf Pineda MD Work Phone: Start: 10-19-2021 Prothrombin time Olaf Pineda MD Work Phone: Start: 10-13-2021 Gluc bld gluc mntr dev cleared fda spec home use Ena 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 Work Phone: Start: 10-13-2021 Hysterectomy Ena 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 Work Phone: Start: 10-13-2021 Most recent diastolic blood pressure < 80 mm hg Ena 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 Work Phone: Start: 10-13-2021 Most recent systolic blood pressure <130 mm hg Ena 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 Work Phone: Start: 10-13-2021 Psychotherapy w/patient 30 minutes Jyotsna Plummermons [facility] Work Phone: Start: 10-07-2021 STRESS TEST, MYOVIEW Rl Blanc MD Work Phone: Start: 10-07-2021 Echo tthrc r-t 2d w/wom-mode compl spec&colr d Rl Blanc MD Work Phone: Start: 10-07-2021 Assay of troponin quantitative Rl Blanc MD Work Phone: Start: 10-07-2021 Ecg routine ecg w/least 12 lds w/i&r Rl Blanc MD Work Phone: Start: 10-06-2021 Intermittent pulse oximetry Rl Blanc MD Work Phone: Start: 10-06-2021 Assay of troponin quantitative Santhosh jasso MD Work Phone: Start: 10-06-2021 Radiologic exam chest single view Roberth Schwab MD Work Phone: Start: 10-06-2021 Basic metabolic panel calcium total Santhosh Schwab MD Work Phone: Start: 10-06-2021 Hepatic function panel Santhosh Schwab MD Work Phone: Start: 10-06-2021 End: 10-07-2021 Ecg routine ecg w/least 12 lds w/i&r Santhosh Schwab MD Work Phone: Start: 08-29-2021 Hysterectomy Ena 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 Work Phone: Start: 08-20-2021 H/O: surgery S/P exploratory laparotomy Mth Schedule Start: 08-18-2021 COVID-19 Ariel Ansari MD Work Phone: Start: 08-14-2021 Antibody screen Geoff Chu MD Work Phone: Start: 08-14-2021 Blood count complete auto&auto difrntl wbc Geoff Chu MD Work Phone: Start: 08-14-2021 Blood typing serologic abo Geoff james MD Work Phone: Start: 08-14-2021 Culture bacterial quanttative colony count urine Geoff Chu MD Work Phone: Start: 07-08-2021 Ecg routine ecg w/least 12 lds w/i&r Corinne Fields PA-C Work Phone: Start: 07-08-2021 Dup-scan xtr veins unilateral/limited study Corinne COOKC Work Phone: Start: 06-19-2021 End: 06-19-2021 Cardiac catheterization Ronan Rodriguez MD Work Phone: Start: 06-06-2021 Assay of troponin quantitative Corinne ARMIJO-C Work Phone: Start: 06-06-2021 Radex shoulder complete minimum 2 views Corinne Fields PA-C Work Phone: Start: 06-06-2021 Basic metabolic panel calcium total Mariana Adames DO Work Phone: Start: 06-06-2021 Radiologic exam chest single view Rigoberto Adames DO Work Phone: Start: 06-06-2021 Ecg routine ecg w/least 12 lds w/i&r Mariana Adames DO Work Phone: Start: 05-22-2021 Ct abdomen & pelvis w/o contrast material Ruizrohit Romero MD Work Phone: Start: 05-22-2021 Urinalysis microscopic only Ruizrohit james MD Work Phone: Start: 05-22-2021 Urnls dip stick/tablet rgnt auto w/o microscopy Ruizrohit Romero MD Work Phone: Start: 02-05-2021 Most recent diastolic blood pressure 80-89 mm hg Ena 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 Work Phone: Start: 02-05-2021 Most recent systolic blood pressure <130 mm hg Ena 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 Work Phone: Start: 01-29-2021 End: 01-29-2021 Radex ankle complete minimum 3 views Antony Borges MD Work Phone: Start: 01-09-2021 Basic metabolic panel calcium total Erna Osman APRN - SUPERINTENDENT PRESSURE Work Phone: Start: 01-08-2021 Most recent diastol blood pres >/equal 90 mm hg Ena 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 Work Phone: Start: 01-08-2021 Most recent systolic blood press 130-139mm hg Ena 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 Work Phone: Start: 01-03-2021 Blood occult peroxidase actv qual other sources Alvino Zavala MD Work Phone: Start: 01-03-2021 Esophagogastroduodenoscopy Alvino doherty MD Work Phone: Start: 01-03-2021 Assay of magnesium Erna Osman OIL DISTRIBUTOR - SUPERINTENDENT PRESSURE Work Phone: Start: 01-03-2021 BASIC METABOLIC PANEL W/ REFLEX TO MG FOR LOW K Alvino Zavala MD Work Phone: Start: 01-02-2021 End: 01-03-2021 Rhythm ecg 1-3 leads w/interpretation & report Unknown Provider Result Start: 01-02-2021 COVID-19, RAPID Alvino Zavala MD Work Phone: Start: 01-02-2021 Potassium serum plasma/whole blood Eduardo Parker MD Start: 01-01-2021 Gluc bld gluc mntr dev cleared fda spec home use Santhosh Schwab MD Work Phone: Start: 01-01-2021 GLUCOSE, WHOLE BLOOD Olaf Pineda MD Work Phone: Start: 01-01-2021 Ct abdomen & pelvis w/contrast material Olaf Pineda MD Work Phone: Start: 01-01-2021 Ct thorax w/contrast material Olaf billings MD Work Phone: Start: 01-01-2021 Dup-scan xtr veins complete bilateral study Olaf Pineda MD Work Phone: Start: 01-01-2021 Comprehensive metabolic panel Olaf billings MD Work Phone: Start: 11-22-2020 Ct soft tissue neck w/contrast material Santhosh Schwab MD Work Phone: Start: 11-22-2020 Assay of magnesium Santhosh Schwab MD Work Phone: Start: 11-22-2020 BASIC METABOLIC PANEL W/ REFLEX TO MG FOR LOW K Santhosh Schwab MD Work Phone: Start: 09-26-2020 Colonoscopy Santhosh Schwab MD Work Phone: Start: 09-19-2020 COVID-19 Ariel Ansari Work Phone: Start: 09-19-2020 Urnls dip stick/tablet reagent auto microscopy Alvino P Eugeniainen Work Phone: Start: 09-19-2020 Assay of amylase Alvino P Eugeniainen Work Phone: Start: 09-19-2020 Assay of lipase Alvino P Eugeniainen Work Phone: Start: 09-19-2020 Blood count complete auto&auto difrntl wbc Alvino P Daniloivinen Work Phone: Start: 09-19-2020 Comprehensive metabolic panel Alvino Arie macedo Work Phone: Start: 09-19-2020 Sedimentation rate rbc automated Alvino P Eugeniainerohit Work Phone: Start: 09-04-2020 Cholecystectomy Ena Fung Start: 09-04-2020 Cholecystectomy Ena 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 Work Phone: Start: 09-04-2020 Diast bp >/= 90 mm hg Ena Fung Work Phone: Start: 09-04-2020 Hemoglobin glycosylated a1c Ena Fung Work Phone: Start: 09-04-2020 Hepatitis c antibody Ena Fung Work Phone: Start: 09-04-2020 Hysterectomy Ena 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 Work Phone: Start: 09-04-2020 Iaad ia hiv-1 ag w/hiv-1 & hiv-2 antbdy single Ena Fung Work Phone: Start: 09-04-2020 Psychotherapy w/patient 30 minutes Kaitl in Short Work Phone: Start: 09-04-2020 Syst bp >/= 140 mm hg Ena Fung Work Phone: Start: 09-04-2020 Total abdominal hysterect w/wo rmvl tube ovary Ena Kenton Start: 08-29-2020 BASIC METABOLIC PANEL W/ REFLEX TO MG FOR LOW K Erna A Hyannis Work Phone: Start: 08-29-2020 Blood count complete auto&auto difrntl wbc Erna Osman Work Phone: Start: 08-28-2020 Ct abdomen & pelvis w/contrast material Dipakkumar P Gomez Work Phone: Start: 08-28-2020 Assay of magnesium Erna Brown [employer] Work Phone: Start: 08-28-2020 BASIC METABOLIC PANEL W/ REFLEX TO MG FOR LOW K Erna Brown Jacqui Work Phone: Start: 08-28-2020 Blood count complete auto&auto difrntl wbc Erna Osman Work Phone: Start: 08-27-2020 Blood count complete auto&auto difrntl wbc Dipakkumar P Gomez Work Phone: Start: 08-27-2020 Iadna multiple organisms amplified probe tq Mariana Adames Work Phone: Start: 08-27-2020 Smr prim src wet mount nfct agt Shu Adames Work Phone: Start: 08-27-2020 Ct abdomen & pelvis w/contrast material Mariana Adames Work Phone: Start: 08-27-2020 Assay of lactate Mariana Adames Work Phone: Start: 08-27-2020 Assay of lipase Mariana Adames Work Phone: Start: 08-27-2020 Basic metabolic panel calcium total Mariana Adames Work Phone: Start: 08-27-2020 Blood count complete automated Mariana Adames Work Phone: Start: 08-27-2020 Hepatic function panel Mariana Adames Work Phone: Start: 08-27-2020 Urinalysis microscopic only Mariana Adames Work Phone: Start: 08-27-2020 Urnls dip stick/tablet rgnt auto w/o microscopy Mariana Adames Work Phone: Start: 07-04-2020 Lipid panel Nat Mora Work Phone: Start: 07-04-2020 Basic metabolic panel calcium total Nat Mora Work Phone: Start: 07-04-2020 Blood count complete automated Nat Solomon A hmad Work Phone: Start: 07-04-2020 Echo tthrc r-t 2d w/wom-mode compl spec&colr d Nat Mora Work Phone: Start: 06-17-2020 Assay of troponin quantitative Jose Juan Kebede und Work Phone: Start: 06-17-2020 Assay of troponin quantitative Jose Juan Gr und Work Phone: Start: 06-17-2020 Natriuretic peptide Jose Juan Ortega Work Phone: Start: 06-17-2020 Prothrombin time Jose Juan Ortega Work Phone: Start: 06-17-2020 Thromboplastin time partial plasma/whole blood Jose Juan Ortega Work Phone: Start: 06-17-2020 Ecg routine ecg w/least 12 lds w/i&r Olaf Pineda Work Phone: Start: 06-17-2020 End: 06-17-2020 Blood count complete auto&auto difrntl wbc Olaf Brookesvitlanamalu Work Phone: Start: 06-17-2020 Radiologic exam chest single view Mikaria n Ronaldou Work Phone: Start: 04-28-2020 Radex hand 2 views Jose Juan Ortega Work Phone: Start: 04-28-2020 LACERATION REPAIR Jose Juan Ortega Work Phone: Start: 02-14-2020 Assay of estradiol Geoff Chu Work Phone: Start: 02-14-2020 Assay of thyroid stimulating hormone tsh Geoff Chu Work Phone: Start: 02-14-2020 Gonadotropin follicle stimulating hormone Geoff Chu Work Phone: Start: 01-15-2020 no recent change in medical history Ena Kenton [place] Work Phone: Start: 12-29-2019 Coagulation time activated Nat Lloyd Juanito Mora Work Phone: Start: 12-29-2019 DIAGNOSTIC CARDIAC DIRECTOR CLINICAL OPERATIONS PROCEDURE Amkylah Arroyo Work Phone: Start: 12-29-2019 COVID-19 Michael Arroyo Work Phone: Start: 12-29-2019 DIAGNOSTIC CARDIAC DIRECTOR CLINICAL OPERATIONS PROCEDURE Ronan Michael Work Phone: Start: 12-29-2019 BASIC METABOLIC PANEL W/ REFLEX TO MG FOR LOW K Erna Brown Jacqui Work Phone: Start: 12-29-2019 Lipid panel Erna Brown [employer] Work Phone: Start: 12-29-2019 Ecg routine ecg w/least 12 lds w/i&r Erna Brown Jacqui Work Phone: Start: 12-29-2019 EKG REPORT Hpf Scanning Start: 12-28-2019 Radiologic exam chest 2 views Erna Brown Jacqui Work Phone: Start: 12-28-2019 Assay of troponin quantitative Erna Brown Jacqui Work Phone: Start: 12-28-2019 Blood count complete auto&auto difrntl wbc Erna Brown Jacqui Work Phone: Start: 12-28-2019 Blood count complete automated Erna Brown Jacqui Work Phone: Start: 10-20-2019 Patient gave verbal consent for telehealth Ena Fung Start: 10-20-2019 Psychotherapy w/patient 30 minutes Kaitl in Short Work Phone: Start: 10-10-2019 Assay of homocysteine Samer Eduardo Elvin Work Phone: Start: 10-10-2019 Blood count complete automated Samer Abd ul Elvin Work Phone: Start: 10-10-2019 Assay of troponin quantitative Mati Guido Work Phone: Start: 10-09-2019 Assay of troponin quantitative Mati Guido Work Phone: Start: 10-09-2019 Ecg routine ecg w/least 12 lds w/i&r Mati Guido Work Phone: Start: 10-09-2019 EKG REPORT Hpf Scanning Start: 10-09-2019 Assay of troponin quantitative Mary Jane Oconnor Work Phone: Start: 10-09-2019 Echo tthrc r-t 2d w/wom-mode compl spec&colr d Mary Jane Oconnor Work Phone: Start: 10-09-2019 Mri brain brain stem w/o contrast material Mary Jane Oconnor Work Phone: Start: 10-09-2019 Ecg routine ecg w/least 12 lds w/i&r Mary Jane Oconnor Work Phone: Start: 10-09-2019 EKG REPORT Hpf Scanning Start: 10-09-2019 Hemoglobin glycosylated a1c Mary Jane Oconnor Work Phone: Start: 10-09-2019 Lipid panel Mary Jane Oconnor Work Phone: Start: 10-09-2019 Lipoprotein direct measurement ldl cholesterol Mary Jane Oconnor Work Phone: Start: 10-09-2019 Sedimentation rate rbc automated Samesamir Oconnor Work Phone: Start: 10-09-2019 STROKE PANEL Mary Jane Oconnor Work Phone: Start: 10-09-2019 Speech and language therapy regime Mary Jane Oconnor Work Phone: Start: 08-29-2019 BASIC METABOLIC PANEL W/ REFLEX TO MG FOR LOW K Layo Wiseman Work Phone: Start: 08-29-2019 Blood count complete auto&auto difrntl wbc Layo Wiseman Work Phone: Start: 08-21-2019 Assay of troponin quantitative Janae davies MD Work Phone: Start: 08-21-2019 Radiologic exam chest 2 views Janae cheek MD Work Phone: Start: 08-21-2019 Comprehensive metabolic panel Janae cheek MD Work Phone: Start: 08-21-2019 Ecg routine ecg w/least 12 lds w/i&r Janae Landon MD Work Phone: Start: 08-21-2019 EKG REPORT Hpf Scanning Start: 08-21-2019 Urinalysis microscopic only Janae powell MD Work Phone: Start: 08-21-2019 Urnls dip stick/tablet rgnt auto w/o microscopy Janae Landon MD Work Phone: Start: 04-21-2019 Glucose blood reagent strip Terrence Hayley s Lyle Work Phone: Start: 04-21-2019 Glucose blood reagent strip Terrence Hayley s Lyle Work Phone: Start: 04-21-2019 Glucose blood reagent strip Terrence Hayley s Lyle Work Phone: Start: 04-20-2019 Glucose blood reagent strip Terrence Hayley s Lyle Work Phone: Start: 04-20-2019 Glucose blood reagent strip Terrence Hayley s Lyle Work Phone: Start: 04-20-2019 MANDY PROFILE Samer Eduardodemetrice Bustamantem Work Phone: Start: 04-20-2019 Antinuclear antibodies mandy Samer Eduardo K areem Work Phone: Start: 04-20-2019 Basic metabolic panel calcium total Samer Eduardo Elvin Work Phone: Start: 04-20-2019 Blood count complete automated Samer Abd ul Elvin Work Phone: Start: 04-20-2019 Hemoglobin glycosylated a1c Samer Eduardo Elvin Work Phone: Start: 04-20-2019 Rheumatoid factor quantitative Samer Abd ul Elvin Work Phone: Start: 04-20-2019 Sedimentation rate rbc automated Samer A jaida Oconnor Work Phone: Start: 04-20-2019 Mri brain brain stem w/o contrast material Isak Anderson Work Phone: Start: 04-20-2019 End: 04-20-2019 Glucose blood reagent strip Terrence Lyle Work Phone: Start: 04-19-2019 Ct abdomen & pelvis w/contrast material Reggie Prather Work Phone: Start: 04-19-2019 Blood count complete auto&auto difrntl wbc Reggie Prather Work Phone: Start: 04-19-2019 C-reactive protein Reggie Prather Work Phone: Start: 04-19-2019 Comprehensive metabolic panel Reggie Prather Work Phone: Start: 04-19-2019 Gonadotropin chorionic qualitative Eduardo jez Mccabe Work Phone: Start: 04-19-2019 Ecg routine ecg w/least 12 lds w/i&r [employer] Work Phone: Start: 04-19-2019 Assay of troponin quantitative Rii[employer] Work Phone: Start: 04-19-2019 Ct angiography neck w/contrast/noncontrast [employer] Work Phone: Start: 04-19-2019 Ecg routine ecg w/least 12 lds w/i&r [employer] Work Phone: Start: 04-19-2019 Assay of magnesium [employer] Work Phone: Start: 04-19-2019 Assay of troponin quantitative [employer] Work Phone: Start: 04-19-2019 Basic metabolic panel calcium total [employer] Work Phone: Start: 04-19-2019 Blood count complete automated [employer] Work Phone: Start: 04-19-2019 Natriuretic peptide Mary Dow Work Phone: Start: 04-19-2019 Prothrombin time Mary Dow Work Phone: Start: 04-19-2019 Sedimentation rate rbc automated Mary mcallister Work Phone: Start: 04-19-2019 Thromboplastin time partial plasma/whole blood Mary Dow Work Phone: Start: 04-19-2019 Ct head/brain w/o contrast material Mary Dow Work Phone: Start: 04-19-2019 Radiologic exam chest single view Mary Dow Work Phone: Start: 01-20-2018 Basic metabolic panel calcium total Ena Kenton Start: 01-20-2018 Lipid panel Ena Fung Start: 10-15-2017 Pap not indicated Ena Fung Start: 10-15-2017 Pt-focused hlth risk assmt score doc stnd instrm Ena Fung Start: 10-15-2017 End: 10-15-2017 Hemoglobin glycosylated a1c Ena Fung Start: 10-05-2017 Polysom 6/>yrs sleep 4/> addl binh attnd Ena Fung Start: 10-05-2017 Polysom 6/>yrs sleep w/cpap 4/> addl binh attnd Ena Fung Start: 10-05-2017 Assay of free thyroxine Ena Fung Start: 10-05-2017 Assay of thyroid stimulating hormone tsh Ena Fung Start: 10-05-2017 Collection venous blood venipuncture Ena Fung Start: 10-05-2017 End: 10-05-2017 Mammogram, both breasts Ena Fung Start: 10-05-2017 PHQ9 Administered Ena Fung Start: 10-05-2017 SBIRT Negative Ena Fung Plan of Treatment Date Care Activity Detail Author Start: 09-26-2030 Screening for malignant neoplasm of colon [facility] Start: 04-28-2030 DTaP/Tdap/Td vaccine (3 - Td or Tdap) DTaP/Tdap/Td vaccine (3 - Td or Tdap) [facility] Start: 04-28-2030 DTaP/Tdap/Td vaccine (3 - Td) DTaP/Tdap/Td vaccine (3 - Td) [place], [place] Start: 04-29-2028 Lipid panel Lipids [facility] Start: 01-17-2026 Diabetes screen Diabetes screen [facility] Start: 11-29-2025 Shingles Vaccine (1 of 2) Shingles Vaccine (1 of 2) Mikaela sanchez Work Phone: Start: 01-09-2025 Depression Monitoring Depression Monitoring [facility] Start: 06-09-2024 Diabetes screen Diabetes screen [facility] Start: 05-10-2024 DTaP/Tdap/Td vaccine (2 - Td) DTaP/Tdap/Td vaccine (2 - Td) [place] Start: 04-29-2024 Lipid panel Lipids [facility] Start: 04-25-2024 End: 04-25-2024 Nursing evaluation of patient and report 04/25/2024 8:30 AM EDT Nurse Only [facility] [address] [id number] 3 month home check [facility] Comment on above: 3 month home check Start: 04-18-2024 End: 04-18-2024 Patient encounter procedure 04/18/2024 9:20 AM EDT Office Visit [facility] [address] [address] Nat Mora MD [address] [place] [address] [place] [address] 3 month [facility] Comment on above: 3 month Start: 03-16-2024 End: 03-16-2024 Patient encounter procedure 03/16/2024 9:00 AM EDT Office Visit [facility] [address] [place] [address] Geoff Chu MD [address] [place] [address] Dr [address] [place] [address] med check [facility] Comment on above: med check Start: 03-07-2024 FQHC visit, estab pt Medical Established Patient Health Part [facility] Work Phone: Start: 02-22-2024 FQHC visit, estab pt Medical Established Patient Health Part [facility] Work Phone: Start: 02-17-2024 Influenza vaccination [facility] Start: 02-08-2024 End: 02-08-2024 Patient education based on identified need [facility] Start: 02-03-2024 FQHC visit, estab pt Medical Established Patient Health Part [facility] Work Phone: Start: 01-27-2024 End: 01-27-2024 Patient education based on identified need [facility] Start: 01-25-2024 End: 01-25-2024 Nursing evaluation of patient and report 01/25/2024 8:30 AM EDT Nurse Only [facility] [address] [address] 3 month home check [facility] Comment on above: 3 month home check Start: 01-21-2024 End: 01-21-2024 Patient encounter procedure 01/21/2024 9:00 AM EDT Office Visit [address] [address] Nat Mora MD [address] [place] [address] [place] [address] 6 week [facility] Comment on above: 6 week Start: 01-19-2024 Lipid panel Lipids [facility] Start: 01-13-2024 End: 01-13-2024 Patient encounter procedure 01/13/2024 9:15 AM EDT Office Visit [facility] [address] [place] [id number] Luis Arredondo APRN - RIYA [address] [facility] [address] [place] [address] med check / WH pt [facility] Comment on above: med check / WH pt Start: 10-26-2023 End: 10-26-2023 Nursing evaluation of patient and report 10/26/2023 8:30 AM EDT Nurse Only [facility] [address] [facility] [place] [address] 3 month home check [facility] Comment on above: 3 month home check Start: 09-07-2023 FQHC visit, estab pt Medical Established Patient [facility] Work Phone: Start: 09-07-2023 End: 09-07-2023 Patient education based on identified need [facility] Start: 08-20-2023 [facility] Work Phone: Comment on above: Note: Please make a referral to: Start: 08-20-2023 End: 08-20-2023 Patient education based on identified need [facility] Start: 08-04-2023 Admission to same day surgery center General Surgery [facility] Work Phone: Comment on above: Note: Please make a referral to: Start: 08-04-2023 End: 08-04-2023 Patient education based on identified need [facility] Start: 08-02-2023 End: 08-02-2023 Patient encounter procedure [facility] Comment on above: 6 month/lvm mm Start: 04-27-2023 End: 04-27-2023 Nursing evaluation of patient and report 04/27/2023 Nurse Only Cardiology [facility] Start: 03-23-2023 End: 03-23-2023 Patient encounter procedure 03/23/2023 Office Visit Cardiology Nat Mora MD [address] [facility] [place] [id number] [facility] Start: 03-19-2023 COVID-19 Vaccine ( season) COVID-19 Vaccine ( season) [facility] Start: 03-09-2023 End: 03-09-2023 Patient encounter procedure 03/09/2023 Office Visit Gastroenterology Sirena Mehta, OIL DISTRIBUTOR - SUPERINTENDENT PRESSURE [address] [facility] [address] [place] [address] [facility] Start: 02-16-2023 Influenza vaccination [facility] Start: 02-09-2023 Dermatology [facility] Work Phone: Comment on above: Note: Please make a referral to: Start: 02-01-2023 End: 02-01-2023 Patient education based on identified need [facility] Start: 01-30-2023 Screening for malignant neoplasm of colon FIT/FOBT: Average risk [facility] Start: 01-28-2023 End: 01-28-2023 Patient encounter procedure 01/28/2023 Office Visit Gastroenterology Sirena Mehta, OIL DISTRIBUTOR - SUPERINTENDENT PRESSURE [address] [address] [facility] Start: 01-26-2023 End: 01-26-2023 Nursing evaluation of patient and report 01/26/2023 Nurse Only Cardiology [facility] Start: 01-25-2023 End: 01-25-2023 Patient encounter procedure 01/25/2023 Office Visit Cardiology Nat Mora MD [address] [place] [address] [place] [id number] [facility] Start: 01-23-2023 Screening for malignant neoplasm of cervix Cervical cancer screen [facility] [place], [place] Start: 12-21-2022 FQHC visit, estab pt Medical Established Patient Health [facility] Work Phone: Start: 12-21-2022 End: 12-21-2022 Patient education based on identified need [facility] Start: 12-07-2022 End: 12-07-2022 Patient encounter procedure [facility] [employer] [place] [facility] Start: 11-19-2022 End: 11-19-2022 Patient education based on identified need [facility] Start: 10-27-2022 End: 10-27-2022 Nursing evaluation of patient and report 10/27/2022 Nurse Only Cardiology [facility] Start: 10-23-2022 Creatinine measurement [facility] Start: 10-23-2022 Potassium [Moles/volume] in Serum or Plasma Potassium [employer] Start: 10-23-2022 [facility] Start: 10-20-2022 Hemoglobin A1c measurement A1C test (Diabetic or Prediabetic) [employer] Start: 10-20-2022 Lipid panel [employer] Start: 10-19-2022 Creatinine measurement Creatinine monitoring [employer] Start: 10-19-2022 Potassium monitoring Potassium monitoring [employer] Start: 10-08-2022 Diabetes screen Diabetes screen [employer] [place], [place] Start: 10-07-2022 Lipid panel Lipid screen [employer] Start: 10-06-2022 Creatinine measurement Creatinine monitoring [employer] Start: 10-06-2022 Potassium monitoring Potassium monitoring [employer] Start: 08-21-2022 Creatinine measurement Creatinine monitoring [employer] Start: 08-21-2022 Potassium monitoring Potassium monitoring [employer] Start: 08-05-2022 Creatinine measurement Creatinine monitoring [employer] Start: 08-05-2022 Potassium monitoring [facility] Start: 07-28-2022 End: 07-28-2022 Nursing evaluation of patient and report 07/28/2022 Nurse Only Cardiology [facility] Start: 07-16-2022 FQHC visit, estab pt Medical Established Patient [facility] Work Phone: Start: 06-09-2022 Lipid panel Lipid screen [facility] Start: 06-06-2022 Creatinine measurement [facility] Start: 06-06-2022 Potassium monitoring Potassium monitoring [facility] Start: 05-28-2022 End: 05-28-2022 Patient encounter procedure 05/28/2022 Office Visit Cardiology Nat Mora MD [address] [place] [address] [facility] Start: 05-13-2022 EKG 12 lead (19578) [facility] Start: 05-11-2022 End: 05-11-2022 Patient encounter procedure 05/11/2022 Office Visit Neurology Gabo Cohen MD [address] [facility] [address] [place] [address] [facility] Start: 05-07-2022 End: 05-07-2022 Patient encounter procedure 05/07/2022 Appointment Radiology [facility] Start: 04-28-2022 End: 04-28-2022 Nursing evaluation of patient and report 04/28/2022 Nurse Only [facility] CARDIOLOGY Part [facility] Start: 04-27-2022 FQHC visit, estab pt Medical Established Patient [facility] Work Phone: Start: 04-20-2022 Diabetes screen Diabetes screen [place], [place] Start: 04-13-2022 End: 04-13-2022 Patient education based on identified need [facility] Start: 03-19-2022 Influenza vaccination [facility] Start: 03-16-2022 End: 03-16-2022 Patient encounter procedure 03/16/2022 Office Visit Neurology Gabo Cohen MD [address] [place] [address] [facility] Part [facility] Start: 03-01-2022 [facility] Start: 02-16-2022 Influenza vaccination Flu vaccine (#1) [facility] Start: 01-30-2022 End: 01-30-2022 Patient education based on identified need [facility] Start: 01-27-2022 FQHC visit, estab pt Medical Established Patient [facility] Work Phone: Start: 01-27-2022 End: 01-27-2022 Nursing evaluation of patient and report 01/27/2022 Nurse Only Cardiology [facility] Start: 01-12-2022 End: 01-12-2022 Patient encounter procedure 01/12/2022 Office Visit Neurology Gabo Cohen MD [address] [place] [id number] [facility] Start: 01-09-2022 Creatinine measurement Creatinine monitoring [facility] Work Phone: Start: 01-09-2022 Potassium monitoring Potassium monitoring [facility] Work Phone: Start: 01-03-2022 Creatinine measurement Creatinine monitoring [facility] Work Phone: Start: 01-03-2022 Potassium monitoring Potassium monitoring [facility] Work Phone: Start: 01-03-2022 Screening for malignant neoplasm of colon FIT/FOBT: Average risk [facility] Start: 12-23-2021 End: 12-23-2021 Patient encounter procedure 12/23/2021 Office Visit Cardiology Nat Mora MD [address] [place] [address] [facility] Start: 12-09-2021 End: 12-09-2021 Nursing evaluation of patient and report 12/09/2021 Nurse Only Cardiology [facility] Start: 11-26-2021 End: 11-26-2021 Patient education based on identified need [facility] Start: 11-25-2021 End: 11-25-2021 Patient encounter procedure 11/25/2021 Office Visit Cardiology Nat Mora MD [address] [place] [address] [facility] Start: 11-22-2021 Creatinine measurement Creatinine monitoring [facility] Work Phone: Start: 11-22-2021 Potassium monitoring Potassium monitoring [facility] Work Phone: Start: 11-14-2021 End: 11-14-2021 Patient encounter procedure 11/14/2021 Office Visit Neurology Rashid Almeida MD [address] [place] [address] [facility] Start: 10-27-2021 [facility] visit, estab pt [facility] Work Phone: Comment on above: Note: Please make a referral to: OSWALD mcmahon [facility] Start: 10-27-2021 End: 10-27-2021 Patient education based on identified need [facility] Start: 10-23-2021 End: 10-23-2021 Patient encounter procedure 10/23/2021 Office Visit Cardiology Nat Mora MD [address] [facility] [place] [address] [facility] Start: 10-13-2021 End: 10-13-2021 Patient education based on identified need [facility] Start: 09-19-2021 Creatinine measurement Creatinine monitoring [facility] Work Phone: Start: 09-19-2021 Potassium monitoring Potassium monitoring [facility] Work Phone: Start: 09-16-2021 End: 09-16-2021 Admission to same day surgery center 09/16/2021 Surgery IP Unit Alvino Zavala MD [address] [facility] [address] [place] [address] EGD ESOPHAGOGASTRODUODENOSCOPY [facility] OR Comment on above: EGD ESOPHAGOGASTRODUODENOSCOPY Start: 09-16-2021 End: 09-16-2021 Esophagogastroduodenoscopy transoral diagnostic EGD ESOPHAGOGASTRODUODENOSCOPY ABD PAIN HX OF GASTRITIS 09/16/2021 9:30 AM [facility] Start: 09-16-2021 Subsequent hospital visit by physician 09/16/2021 Hospital Encounter IP Unit Alvino Zavala MD [address] [facility] [address] [place], [place] [id number] [facility] Start: 08-29-2021 Creatinine measurement Creatinine monitoring [facility] Work Phone: Start: 08-29-2021 Potassium monitoring Potassium monitoring [facility] Phone: Start: 08-27-2021 End: 08-27-2021 Patient encounter procedure 08/27/2021 Office Visit Obstetrics and Gynecology Geoff Chu MD [address] [facility] [facility] [address] [place] [address] [facility] Start: 08-20-2021 End: 08-20-2021 Admission to same day surgery center 08/20/2021 Surgery IP Unit Geoff Chu MD [address] [facility] [facility] [address] [place], [place] [id number] OOPHORECTOMY LAPAROSCOPIC-POSSIBLE LAPAROTOMY [facility] Comment on above: OOPHORECTOMY LAPAROSCOPIC-POSSIBLE LAPAR OTOMY Start: 08-20-2021 End: 08-20-2021 Oophorectomy partial/total uni/bi OOPHORECTOMY LAPAROSCOPIC RLQ PAIN 08/20/2021 9:50 AM [facility] Start: 08-20-2021 Subsequent hospital visit by physician 08/20/2021 Hospital Encounter IP Unit Geoff Chu MD [address] [facility] [facility] [address] [place] [address] [facility] Start: 08-11-2021 COVID-19 Vaccine (2 - Booster for Moderna series) COVID-19 Vaccine (2 - Booster for Moderna series) [facility] Start: 07-14-2021 COVID-19 Vaccine (2 - Moderna 3-dose series) COVID-19 Vaccine (2 - Moderna 3-dose series) [facility] Start: 07-14-2021 COVID-19 Vaccine (2 - Moderna series) COVID-19 Vaccine (2 - Moderna series) [facility] Start: 07-04-2021 Creatinine measurement Creatinine monitoring [facility] [place] Start: 07-04-2021 Lipid panel Lipid screen [facility] Start: 07-04-2021 Potassium monitoring Potassium monitoring [facility] [place], [place] Start: 06-25-2021 FQHC visit, [facility] Medical Established Patient [facility] Work Phone: Start: 06-09-2021 End: 06-09-2021 Patient encounter procedure 06/09/2021 Office Visit Cardiology Nat Mora MD [address] [place] [address] [place] [address] [facility] C[facility] Part [facility] Start: 06-07-2021 Diabetes screen Diabetes screen [facility], [place] Start: 05-15-2021 SARS-CoV-2, FAUSTINA [facility] Start: 05-08-[address] up Testing [facility] Work Phone: Start: 04-15-2021 End: 04-15-2021 Patient encounter procedure 04/15/2021 Office Visit Cardiology Nat Mora MD [address] [place] [address] [place] [address] [facility] C[facility] Part [facility] Start: 03-27-2021 SARS-CoV-2, FAUSTINA [facility] Start: 03-20-2021 End: 03-20-2021 Patient education based on identified need [facility] Start: 03-19-2021 Influenza vaccination [facility] Start: 03-07-2021 [facility] Start: 02-05-2021 End: 02-05-2021 Patient education based on identified need [facility] Start: 01-10-2021 End: 01-03-2022 Basic metabolic 2000 panel - Serum or Plasma Basic Metabolic Panel Lab Routine Hypokalemia Expected: 01/10/2021, Expires: 01/03/2022 [employer] Phone: Comment on above: Expected: 01/10/2021, Expires: 2 Start: 01-10-2021 End: 01-03-2022 CBC W Auto Differential panel - Blood CBC With Auto Differential Lab Routine Rectal bleeding Expected: 01/10/2021, Expires: 01/03/2022 [employer] Phone: Comment on above: Expected: 01/10/2021, Expires: 2 Start: 01-10-2021 Subsequent hospital visit by physician 01/10/2021 Hospital Encounter Echocardiography [facility] Echocardiography Start: 01-10-2021 End: 01-10-2021 Patient encounter procedure 01/10/2021 Appointment Stress Lab [facility] Stress Lab Start: 01-09-2021 End: 01-09-2021 Office Visit 01/09/2021 Office Visit Cardiology Nat Mora MD [address] [place] [address] [place] [address] [facility] Start: 01-08-2021 End: 01-08-2021 Patient education based on identified need [facility] Start: 12-28-2020 Creatinine measurement Creatinine monitoring [employer] [facility] [place] [place] Start: 12-28-2020 Lipid panel Lipid screen [employer] [place], [place] Start: 12-28-2020 Potassium monitoring Potassium monitoring [employer] [place], [place] Start: 12-27-2020 Creatinine measurement Creatinine monitoring [employer] [place] Start: 12-27-2020 Potassium monitoring Potassium monitoring [employer] [place], [place] Start: 11-29-2020 Screening for malignant neoplasm of colon [employer] Start: 10-08-2020 Lipid panel Lipid screen [employer] [place], [place] Start: 10-08-2020 Lipid screen Lipid screen [employer] [place], [place] Start: 09-26-2020 End: 09-26-2020 Hospital Encounter [facility] Comment on above: COLONOSCOPY DIAGNOSTIC Start: 09-05-2020 [facility] Work Phone: Start: 09-04-2020 End: 09-04-2020 Patient education based on identified need BHP provided active listening, support and helped patient process through current symptoms and stressors related to family conflict. BHP/LAY UP OPERATOR discussed resources for housing and supports with patient. ~BHP discussed potential benefit of counseling and supports. Patient is willing to reconsider meeting with a provider at another agency than she has in the past as she does not want all of the same services [facility] Start: 09-04-2020 End: 09-04-2020 Patient education based on identified need [facility] Start: 08-29-2020 Creatinine monitoring Creatinine monitoring [place], [place] Start: 08-29-2020 Potassium monitoring Potassium monitoring [place], [place] Start: 08-27-2020 End: 08-27-2020 Office Visit 08/27/2020 Office Visit Cardiology Nat Mora MD [address] [place] [address] [place] [address] [facility] Start: 08-21-2020 Creatinine monitoring Creatinine monitoring [facility] Work Phone: Start: 08-21-2020 Potassium monitoring Potassium monitoring [facility] Work Phone: Start: 07-05-2020 End: 07-05-2020 Appointment 07/05/2020 Appointment Stress Lab [facility] Stress Lab Start: 06-12-2020 Medical Established Patient [facility][1] Work Phone: Start: 06-11-2020 SARS-CoV-2, FAUSTINA [facility] Work Phone: Start: 06-04-[address] up Testing [facility] Work Phone: Start: 05-09-2020 SARS-CoV-2, FAUSTINA [facility] Work Phone: Start: 05-03-[address] up Testing [facility] Work Phone: Start: 05-02-2020 End: 05-02-2020 Patient education based on identified need [facility] Start: 04-20-2020 Creatinine monitoring Creatinine monitoring [facility] , [place] Start: 04-20-2020 Potassium monitoring Potassium monitoring [facility], [place] Start: 03-19-2020 Influenza vaccination [facility] [place] Start: 02-22-2020 End: 02-22-[address] [facility] Start: 02-20-2020 End: 02-20-2020 Office Visit 02/20/2020 Office Visit Cardiology Nat Mora MD [address] [place] [address] [facility] of [facility] Start: 02-19-2020 End: 02-19-2020 Appointment 02/19/2020 Appointment Sleep Center [facility] Start: 02-07-2020 Creatinine monitoring Creatinine monitoring [facility] , [place] Start: 02-07-2020 Lipid screen Lipid screen [facility] [place] Start: 02-07-2020 Potassium monitoring Potassium monitoring [facility], [place] Start: 01-24-2020 End: 01-24-2020 Office Visit 01/24/2020 Office Visit Obstetrics and Gynecology Geoff Chu MD [address] [place] [address] [facility] Start: 01-22-2020 Lipid 1996 panel [facility] Work Phone: Start: 01-11-2020 End: 01-11-2020 Appointment 01/11/2020 Appointment Sleep Center [facility] Start: 12-29-2019 Hospital Encounter 12/29/2019 Hospital Encounter IP Unit [facility] [employer] Start: 12-28-2019 End: 12-28-2019 Office Visit 12/28/2019 Office Visit Cardiology Nat Mora MD [address] [place] [id number] [facility] Start: 12-21-2019 Medical Established Patient Tracey Yancey [facility] Work Phone: Start: 10-20-2019 Sleep Disorders Health [facility] Work Phone: Comment on above: Note: Please make a referral to: isac vince simon Start: 10-20-2019 End: 10-20-2019 Patient education based on identified need P offered active and supportive listening, normalized emotions and feelings, processed current stressors and explored coping and stress reducing skills. ~BHP attempted to discuss sleep hygiene strategies with patient including meditation, reducing caffeine use, increaing physical activity during the day as tolerated, and engaging in calming activities. Patient states that she has tried many things in the past and nothing has been sucessful. ~ [facility] Start: 10-06-2019 Screening for malignant neoplasm of breast Breast cancer screen [facility] Start: 06-20-2019 End: 06-20-2019 Office Visit 06/20/2019 Office Visit Cardiology Nat Mora MD [address] [place] [address] [place] [address] [facility] [place] [facility] Start: 06-05-2019 End: 06-05-2019 Office Visit 06/05/2019 Office Visit Cardiology Nat Mora MD [address] [place] [address] [place] [address] [facility] [place] [facility] Start: 05-22-2019 End: 05-22-2019 Office Visit 05/22/2019 Office Visit Neurology Mary Jane Oconnor MD [address] [place], [place] [id number] [facility] Start: 03-19-2019 Influenza vaccination Flu vaccine (#1) [facility] [place], [place] Start: 02-04-2018 Hepatic function panel Liver function panel [facility] Start: 02-04-2018 Lipid panel Lipid panel [facility] Start: 01-25-2018 Hepatic function panel Liver function panel [facility] Start: 01-25-2018 Lipid panel Lipid panel [facility] Start: 01-20-2018 Basic metabolic panel calcium total BMP (basic metabolic panel) [facility] Start: 01-20-2018 Lipid panel Lipid Panel (Chol, HDL, LDL, Trig., VLDL) [facility] Start: 11-28-2017 Cervical cancer screen Cervical cancer screen [place], [place] Start: 11-28-2017 Screening for malignant neoplasm of cervix Cervical cancer screen [place], [place] Start: 10-05-2017 Hepatic function panel Liver function panel [facility] Start: 10-05-2017 Lipid panel Lipid Panel (Chol, HDL, LDL, Trig., VLDL) [facility] Start: 03-23-2017 25 hydroxy includes fractions if performed VITAMIN D 25 HYDROXY [facility] Start: 03-23-2017 Assay of free thyroxine TSH + free t4 [facility] Start: 03-23-2017 Assay of thyroid stimulating hormone tsh TSH + free t4 [facility] Start: 03-23-2017 Lipid panel Lipid panel [facility] Start: 11-29-1994 Hepatitis B vaccine (1 of 3 - 19+ 3-dose series) Hepatitis B vaccine (1 of 3 - 19+ 3-dose series) [facility] Start: 11-29-1993 Hepatitis C screening Hepatitis C screen [facility] Start: 1991 COVID-19 Vaccine (1) COVID-19 Vaccine (1) [facility] [employer] Phone: Start: 11-29-1990 HIV screen HIV screen [place], [place] Start: 11-29-1990 HIV screening HIV screen [facility] Start: 1987 COVID-19 Vaccine (1) COVID-19 Vaccine (1) [facility] [employer] Work Phone: Start: 1987 Depression Monitoring Depression Monitoring [facility] Start: 11-29-1981 Pneumococcal 0-64 years Vaccine (1 - PCV) Pneumococcal 0-64 years Vaccine (1 - PCV) [facility] Start: 11-29-1981 Pneumococcal 0-64 years Vaccine (1 of 1 - PPSV23) Pneumococcal 0-64 years Vaccine (1 of 1 - PPSV23) [place], [place] Start: 11-29-1981 Pneumococcal 0-64 years Vaccine (1 of 2 - PCV) Pneumococcal 0-64 years Vaccine (1 of 2 - PCV) [facility] Start: 11-29-1981 Pneumococcal 0-64 years Vaccine (1 of 2 - PPSV23) Pneumococcal 0-64 years Vaccine (1 of 2 - PPSV23) [facility] Start: 11-29-1980 COVID-19 Vaccine (1) COVID-19 Vaccine (1) [facility] Start: 1975 Hepatitis B vaccine (1 of 3 - 3-dose series) Hepatitis B vaccine (1 of 3 - 3-dose series) [facility] Start: 1975 Hepatitis C screening Hepatitis C screen [facility] End: 10-10-2019 Antithrombin III Activity Antithrombin III Activity Lab Routine One Time for 1 Occurrences starting 10/10/2019 until 10/10/2019 [place], [place] Comment on above: One Time for 1 Occurrences starting 09/17 until 10/10/2019 Antithrombin III Activity Antith rombin III Activity Lab Routine 10/10/2019 10:18 AM EDT [place], [place] End: 10-19-2021 aPTT in Blood by Coagulation assay APTT Lab STAT One Time for 1 Occurrences starting 10/19/2021 until 10/19/2021 [facility] [employer] Phone: Comment on above: One Time for 1 Occurrences starting 09/2021 until 10/19/2021 Basic metabolic 2000 panel [place], [place] Comment on above: Daily until discontinued starting 2019 End: 08-30-2020 Basic Metabolic Panel w/ Reflex to MG Basic Metabolic Panel w/ Reflex to MG Lab Routine Daily for 3 Occurrences starting 08/28/2020 until 08/30/2020, 2 completed [facility] [employer] Phone: Comment on above: Daily for 3 Occurrences starting 021 until 08/30/2020, 2 completed Basic Metabolic Pane l w/ Reflex to MG Basic Metabolic Panel w/ Reflex to MG Lab Routine Daily until discontinued starting 01/03/2021, 1 completed [employer] Phone: Comment on above: Daily until discontinued starting 2020, 1 completed End: 10-19-2021 Basic Metabolic Panel w/ Reflex to MG Basic Metabolic Panel w/ Reflex to MG Lab STAT One Time for 1 Occurrences starting 10/19/2021 until 10/19/2021 [employer] Phone: Comment on above: One Time for 1 Occurrences starting 09/2021 until 10/19/2021 End: 10-30-2021 Catheterization and angiography procedure details panel [employer] Phone: Comment on above: One Time for 1 Occurrences starting 10/17 until 10/30/2021 End: 08-20-2022 Catheterization and angiography procedure details panel Diagnostic [facility] [employer] Procedure Cardiac Cath Routine One Time for 1 Occurrences starting 08/20/2022 until 08/20/2022 [facility] [employer] Phone: Comment on above: One Time for 1 Occurrences starting 08/2022 until 08/20/2022 End: 08-30-2020 CBC auto differential CBC auto differential Lab Routine Daily for 3 Occurrences starting 08/28/2020 until 08/30/2020, 2 completed [employer] Phone: Comment on above: Daily for 3 Occurrences starting 021 until 08/30/2020, 2 completed End: 10-19-2021 CBC panel - Blood by Automated count CBC Lab STAT One Time for 1 Occurrences starting 10/19/2021 until 10/19/2021 [employer] Phone: Comment on above: One Time for 1 Occurrences starting 09/2021 until 10/19/2021 CBC W Auto Different ial panel - Blood CBC auto differential Lab Routine Daily until discontinued starting 01/03/2021, 1 completed [employer] Phone: Comment on above: Daily until discontinued starting 2020, 1 completed End: 10-20-2021 Continuous pulse oximetry Pulse oximetry, continuous Respiratory Care Routine Every 4hr for 24 Hours starting 10/20/2021 until 10/20/2021 [employer] Phone: Comment on above: Every 4hr for 24 Hours starting 10/21/19 until 10/20/2021 End: 10-21-2021 Continuous pulse oximetry Pulse oximetry, continuous Respiratory Care Routine Every 4hr for 24 Hours starting 10/20/2021 until 10/21/2021 [employer] Phone: Comment on above: Every 4hr for 24 Hours starting 10/21/19 until 10/21/2021 End: 02-14-2020 COVID-19 Ambulatory COVID-19 Ambulatory Lab Routine Pre-op testing 1 Occurrences starting 02/14/2020 until 02/14/2020 [place], [place] Comment on above: 1 Occurrences starting 02/14/2020 until 02/14/2020 COVID-19 Ambulatory COVID-19 Amb ulatory Lab Routine Pre-op testing 02/14/2020 1:56 PM EDT [place], [place] End: 06-17-2020 COVID-19, PCR COVID-19, PCR Lab Routine One Time for 1 Occurrences starting 06/17/2020 until 06/17/2020 [place] Comment on above: One Time for 1 Occurrences starting 05/21 until 06/17/2020 COVID-19, PCR COVID-19, PCR La b STAT 06/17/2020 11:00 AM EST [place], [place] End: 10-19-2021 COVID-19, Rapid [facility] [employer] Phone: Comment on above: Once for 1 Occurrences starting 10/20/19 until 10/19/2021 CT Abdomen and Pelvi s W contrast IV CT ABDOMEN PELVIS W IV CONTRAST Additional Contrast? None Imaging STAT 08/12/2023 4:10 PM EST [facility] [employer] End: 09-19-2020 Culture, Urine Culture, Urine Microbiology Routine Right sided abdominal pain 1 Occurrences starting 09/19/2020 until 09/19/2020 [employer] Phone: Comment on above: 1 Occurrences starting 09/19/2020 until 09/19/2020 Culture, Urine Culture, Urine M icrobiology Routine Right sided abdominal pain 09/19/2020 10:12 AM [employer] Phone: Culture, Wound Culture, Wound M icrobiology Routine Vulvar cyst 02/22/2020 5:09 PM EDT [employer] End: 01-24-2020 Cytopathology procedure, preparation of smear, genital source [facility] Lab Routine Women's annual routine gynecological examination 1 Occurrences starting 01/24/2020 until 01/24/2020 [employer] Comment on above: 1 Occurrences starting 01/24/2020 until 01/24/2020 End: 07-24-2021 Cytopathology procedure, preparation of smear, genital source [employer] Lab Routine Women's annual routine gynecological examination 1 Occurrences starting 07/24/2021 until 07/24/2021 [employer] Phone: Comment on above: 1 Occurrences starting 07/24/2021 until 07/24/2021 EKG 12 Lead [employer] [place] Comment on above: As Needed until discontinued starting EKG 12 Lead EKG 12 Lead ECG STAT 06/06/2021 9:57 AM [employer] Phone: EKG 12 Lead EKG 12 Lead ECG Routine 07/08/2021 2:55 PM [employer] Phone: EKG 12 Lead EKG 12 Lead ECG STAT 10/19/2021 8:44 PM EDT [employer] Phone: EKG 12 Lead EKG 12 Lead ECG STAT 08/20/2022 12:16 PM EST [employer] Phone: EKG 12 Lead EKG 12 Lead ECG STAT 08/12/2023 3:35 PM EST [facility] EKG 12 Lead EKG 12 Lead ECG STAT 12/23/2023 1:50 PM EDT [employer] EKG 12 Lead EKG 12 Lead ECG STAT 03/12/2024 11:54 AM EDT [employer] Phone: End: 10-10-2019 Factor 5 Leiden Factor 5 Leiden Lab Routine One Time for 1 Occurrences starting 10/10/2019 until 10/10/2019 [employer] Comment on above: One Time for 1 Occurrences starting 09/17 until 10/10/2019 End: 10-19-2021 Glucose [Mass/volume] in Serum or Plasma POCT Glucose Point of Care Testing STAT One Time for 1 Occurrences starting 10/19/2021 until 10/19/2021 [employer] Phone: Comment on above: One Time for 1 Occurrences starting 09/2021 until 10/19/2021 [employer] Phone: Comment on above: Release Upon Ordering for 1 Occurrences starting 01/03/2021 Initiate Oxygen Ther [facility]y [facility] [place] Comment on above: Daily until discontinued starting 2018 Daily until disconti nued starting 10/09/2019 Daily until disconti nued starting 12/28/2019 Daily until disconti nued starting 12/29/2019 Daily until disconti nued starting 12/30/2019 End: 06-19-2021 Intermittent pulse oximetry Pulse Oximetry Spot Check Respiratory Care Routine One Time for 1 Occurrences starting 06/19/2021 until 06/19/2021 [employer] Phone: Comment on above: One Time for 1 Occurrences starting 08/2020 until 06/19/2021 Intermittent pulse oximetry Puls e Oximetry Spot Check Respiratory Care Routine As Needed until discontinued starting 10/22/2021 [employer] Phone: Comment on above: As Needed until discontinued starting End: 10-30-2021 Intermittent pulse oximetry Pulse Oximetry Spot Check Respiratory Care Routine One Time for 1 Occurrences starting 10/30/2021 until 10/30/2021 [employer] Phone: Comment on above: One Time for 1 Occurrences starting 10/17 until 10/30/2021 End: 11-06-2021 Intermittent pulse oximetry Pulse Oximetry Spot Check Respiratory Care Routine One Time for 1 Occurrences starting 11/06/2021 until 11/06/2021 [employer] Phone: Comment on above: One Time for 1 Occurrences starting 10/18 until 11/06/2021 End: 08-20-2022 Intermittent pulse oximetry Pulse Oximetry Spot Check Respiratory Care Routine One Time for 1 Occurrences starting 08/20/2022 until 08/20/2022 KURTIS MEIJA [employer] [address] Phone: Comment on above: One Time for 1 Occurrences starting 08/2022 until 08/20/2022 End: 10-22-2021 IR ANGIOGRAM CAROTID C EREBRAL BILATERAL IR ANGIOGRAM CAROTID C EREBRAL BILATERAL Imaging Routine Once for 1 Occurrences starting 10/22/2021 until 10/22/2021 [employer] Phone: Comment on above: Once for 1 Occurrences starting 10/23/19 until 10/22/2021 IR ANGIOGRAM CAROTID C EREBRAL BILATERAL IR ANGIOGRAM CAROTID C EREBRAL BILATERAL Imaging Routine 10/22/2021 5:26 PM EDT [employer] Phone: Lac Repair Lac Repair Proce dures Routine 04/28/2020 3:41 PM EDT [employer] [place], [place] End: 12-29-2019 LDL Cholesterol, Direct LDL Cholesterol, Direct Lab Routine Once for 1 Occurrences starting 12/29/2019 until 12/29/2019 [employer] [place] Comment on above: Once for 1 Occurrences starting 12/29/19 20 until 12/29/2019 LDL Cholesterol, Direct LDL Chol esterol, Direct Lab Routine 12/29/2019 6:00 AM EDT [employer] [place] End: 10-07-2021 Lipid panel [employer] Phone: Comment on above: One Time for 1 Occurrences starting 09/17 until 10/07/2021 LUPUS ANTICOAGULANT LUPUS ANTICO AGULANT Lab Routine 10/10/2019 10:18 AM EDT [facility] [place], [place] Oxygen therapy [Mini mum Data Set] [employer] Phone: Comment on above: Daily until discontinued starting 2020 Daily until disconti nued starting 01/02/2021 Oxygen therapy [Mini mum Data Set] Initiate Oxygen Therapy Protocol Respiratory Care Routine Daily until discontinued starting 06/19/2021 [employer] Phone: Comment on above: Daily until discontinued starting 2020 Oxygen therapy [Mini mum Data Set] Initiate Oxygen Therapy Protocol Respiratory Care Routine Daily until discontinued starting 06/19/2021 [employer] Phone: Comment on above: Daily until discontinued starting 2020 Oxygen therapy [Mini mum Data Set] Initiate Oxygen Therapy Protocol Respiratory Care Routine As Needed until discontinued starting 10/06/2021 [employer] Phone: Comment on above: As Needed until discontinued starting Oxygen therapy [Mini mum Data Set] Initiate Oxygen Therapy Protocol Respiratory Care Routine As Needed until discontinued starting 10/19/2021 [employer] Phone: Comment on above: As Needed until discontinued starting Oxygen therapy [Mini mum Data Set] Initiate Oxygen Therapy Protocol Respiratory Care Routine As Needed until discontinued starting 10/20/2021 [employer] Phone: Comment on above: As Needed until discontinued starting Oxygen therapy [Mini mum Data Set] Initiate Oxygen Therapy Protocol Respiratory Care Routine As Needed until discontinued starting 10/22/2021 [employer] Phone: Comment on above: As Needed until discontinued starting Oxygen therapy [Mini mum Data Set] Initiate Oxygen Therapy Protocol Respiratory Care Routine As Needed until discontinued starting 10/30/2021 [employer] Phone: Comment on above: As Needed until discontinued starting Oxygen therapy [Mini mum Data Set] Initiate Oxygen Therapy Protocol Respiratory Care Routine As Needed until discontinued starting 11/06/2021 [employer] Phone: Comment on above: As Needed until discontinued starting Oxygen therapy [[facility] Data Set] Initiate Oxygen Therapy Protocol Respiratory Care Routine As Needed until discontinued starting 11/06/2021 [employer] Phone: Comment on above: As Needed until discontinued starting Oxygen therapy [[facility] Data Set] Initiate Oxygen Therapy Protocol Respiratory Care Routine As Needed until discontinued starting 08/20/2022 KURTIS MEJIA [employer] [address] Phone: Comment on above: As Needed until discontinued starting POCT Glucose POCT Glucose Poi nt of Care Testing STAT As Needed until discontinued starting 04/20/2019 [place], [place] Comment on above: As Needed until discontinued starting End: 10-10-2019 Protein C Functional Protein C Functional Lab Routine One Time for 1 Occurrences starting 10/10/2019 until 10/10/2019 [place], [place] Comment on above: One Time for 1 Occurrences starting 09/17 until 10/10/2019 Protein C Functional Protein C F unctional Lab Routine 10/10/2019 10:18 AM [facility], [place] End: 10-10-2019 Protein S Functional Protein S Functional Lab Routine One Time for 1 Occurrences starting 10/10/2019 until 10/10/2019 [place], [place] Comment on above: One Time for 1 Occurrences starting 09/17 until 10/10/2019 Protein S Functional Protein S F unctional Lab Routine 10/10/2019 10:18 AM [place], [place] End: 10-10-2019 Prothrombin Gene Mutation Prothrombin Gene Mutation Lab Routine One Time for 1 Occurrences starting 10/10/2019 until 10/10/2019 [place], [place] Comment on above: One Time for 1 Occurrences starting 09/17 until 10/10/2019 Protime-INR Protime-INR Lab STAT As Needed until discontinued starting 12/29/2019 [place], [place] Comment on above: As Needed until discontinued starting Protime-INR Protime-INR Lab STAT As Needed until discontinued starting 06/19/2021 [employer] Phone: Comment on above: As Needed until discontinued starting End: 10-19-2021 Protime-INR Protime-INR Lab STAT One Time for 1 Occurrences starting 10/19/2021 until 10/19/2021 [employer] Phone: Comment on above: One Time for 1 Occurrences starting 09/2021 until 10/19/2021 Protime-INR Protime-INR Lab STAT As Needed until discontinued starting 10/30/2021 [employer] Phone: Comment on above: As Needed until discontinued starting End: 12-28-2019 Pulse Oximetry Spot Check Pulse Oximetry Spot Check Respiratory Care Routine One Time for 1 Occurrences starting 12/28/2019 until 12/28/2019 [facility] [place] Comment on above: One Time for 1 Occurrences starting 12/17 until 12/28/2019 End: 12-29-2019 Pulse Oximetry Spot Check Pulse Oximetry Spot Check Respiratory Care Routine One Time for 1 Occurrences starting 12/29/2019 until 12/29/2019 [facility] [place] Comment on above: One Time for 1 Occurrences starting 12/17 until 12/29/2019 End: 02-19-2020 Sleep Study with PAP Titration Sleep Study with PAP Titration Sleep Center Routine One Time for 1 Occurrences starting 02/19/2020 until 02/19/2020 [facility] [place] Comment on above: One Time for 1 Occurrences starting 09/2019 until 02/19/2020 End: 10-19-2021 Speech and language therapy regime Speech Language Pathology (ALGORITHM DESIGN ENGINEER) eval and treat ALGORITHM DESIGN ENGINEER Routine One Time for 1 Occurrences starting 10/19/2021 until 10/19/2021 [employer] Phone: Comment on above: One Time for 1 Occurrences starting 09/2021 until 10/19/2021 End: 10-20-2021 Speech and language therapy regime Speech Language Pathology (ALGORITHM DESIGN ENGINEER) eval and treat ALGORITHM DESIGN ENGINEER Routine One Time for 1 Occurrences starting 10/20/2021 until 10/20/2021 [employer] Phone: Comment on above: One Time for 1 Occurrences starting 10/2021 until 10/20/2021 Spirometry panel Incentive carey metry Respiratory Care Routine Daily until discontinued starting 10/19/2021 [employer] Phone: Comment on above: Daily until discontinued starting 2021 Spirometry panel Incentive carey metry Respiratory Care Routine Daily until discontinued starting 10/20/2021 [employer] Phone: Comment on above: Daily until discontinued starting 2021 Surgical Pathology Surgical Path ology Lab Routine Release Upon Ordering for 1 Occurrences starting 01/03/2021 [employer] Phone: Comment on above: Release Upon Ordering for 1 Occurrences starting 01/03/2021 End: 07-24-2021 Surgical Pathology Surgical Pathology Lab Routine Vulval lesion 1 Occurrences starting 07/24/2021 until 07/24/2021 [employer] Phone: Comment on above: 1 Occurrences starting 07/24/2021 until 07/24/2021 End: 10-19-2021 Troponin I.cardiac [Mass/volume] in Serum or Plasma Troponin Lab STAT One Time for 1 Occurrences starting 10/19/2021 until 10/19/2021 [employer] Phone: Comment on above: One Time for 1 Occurrences starting 09/2021 until 10/19/2021 Immunizations Immunization Date Immunization Notes Care Provider Connie palmer 06-16-2021 COVID-19, Moderna, Primary or Immunocompromised, PF, 100mcg/0.5mL Ena [employer] [facility] Work Phone[facility] 04-28-2020 diphtheria, tetanus toxoids and acellular pertussis vaccine, unspecified formulation [facility]- [place]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 0 1:53PM ; [facility] Obesity due to excess calories Telemedic ine Establisted Patient with 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 05/02/2020 Last Documented On 0 1:53PM ; [facility] Anxiety disorder NOS [facility] Oliva Short LISWS 10/20/2019 Last Documented On 0 8:21AM ; [facility] Depressive disorder Telebehavioral Health niesha yolanda Baptiste Short LISWS 10/20/2019 Last Documented On 0 8:21AM ; [facility] Work Phone: [phone]) 679-105707-23-2024 History general Narrative - Reported Includes: Medical History in patient's chart Description Last Updated No previous hospitalizations 02/08/2024 Last Documented On 4 5:41PM ; [facility] 4 previous live (s) 08/04/2023 Last Documented On 4 4:29PM ; [facility] Previously 6 time(s) 08/04/2023 Last Documented On 4 4:29PM ; [facility] Not planning to have a baby in the next 12 months 11/19/2022 Last Documented On 3 11:33AM ; [facility] CVA 10/27/2021 Last Documented On 2 8:26AM ; [facility] History of cardiac catheteri zation coronary angiography was performed 10/20/21 right 10/27/2021 Last Documented On 2 1:23PM ; [facility] Treatment response/compliance reports ta balaji meds consistently 10/13/2021 Last Documented On 2 9:32PM ; [facility] History of stenosis of coronary artery s tent 09/04/2020 Last Documented On 1 6:38PM ; [facility] Recent immunization for flu 09/04/2020 Last Documented On 1 6:38PM ; [facility] No recent change in medical history 12/18 Last Documented On 0 10:08AM ; [facility] Patient gave verbal consent for teleheal th 10/20/2019 Last Documented On 0 11:04AM ; [facility] Work Phone: [phone]) 402-819407-23-2024 Progress note* Progress note Date Encounter Last Documented by 02/08/2024 Open Access - Established Last d ocumented on 02/08/2024; 5:41 PM, Ena Fung CNP; [facility] Active Problems & Conditions - J45.20 - Asthma Mild Intermittent Uncomplicated - K21.9 - Esophageal Reflux Without Esophagitis - GERD (gastroesophageal reflux disease) - I10 - Essential (primary) hypertension - Hypertension - - F41.1 - Generalized Anxiety Disorder - 997.91 - Hypertension - Hypertension - F33.0 - Major Depression Recurrent Mild - K58.2 - Mixed irritable bowel syndrome - Irritable bowel syndrome with both constipation and diarrhea - Z90.710 - Postsurgical State Acquired Absence of Organ Genital Female Cervix and Uterus - G47.30 - Sleep apnea, unspecified Chief Complaint The Chief Complaint is: Patient needs cyclobenzaprine and alprazolam filled. Patient keeps gettin migraines. If she thinks about her sister who passed and gets nerve pain shooting in her head. Patient was doing laundry and had an episode of vision blurriness in left eye and right head pain. Weakness on left side and fell. No injury. Referred Here Not referred by urgent care clinic and not the emergency room. No prior encounters. - Data to be reviewed: no clinical lab tests History of Present Illness Mike Sharif is a 48 year old female. - Allergy list reviewed - Reviewed Medications - Medication list reviewed - Date of last menstruation hysterectomy Presents to get med refill , has 2 xanax left , aware she needs to get in to counseling / grief oswald Current Medication - *CPAP AND SUPPLIES Miscellaneous 0 days, 0 refills - *Captain/Check Airman Miscellaneous (not specified) posture corrector flexible brace , wear during the day / remove at bedtime, 30 days, 0 refills - *NEBULIZER AND SUPPLIES Miscellaneous Use as needed with medications, 30 days, 0 refills - Albuterol Sulfate HFA 108 (90 Base) MCG/ACT Inhalation Aerosol Solution inhale 1-2 puffs by mouth every 4-6 hours as needed for wheezing/ shortness of breath, 30 days, 5 refills - ALPRAZolam 0.5 MG Oral Tablet take 1/2- 1 tablet by mouth every 8 hours as needed for severe anxiety, 7 days, 0 refills - amLODIPine Besylate 2.5 MG Oral Tablet two tablets once dailyDr. Ahmad, 90 days, 0 refills - Aspirin 81 MG Oral Tablet Delayed Release take 1 tablet by mouth once daily, 0 days, 0 refills - Atorvastatin Calcium 80 MG Oral Tablet take 1 tablet by mouth once daily at bedtime, 30 days, 11 refills - Brilinta 60 MG Oral Tablet one tablet two times dailyDr. Mora, 90 days, 0 refills - Colace 100 MG Oral Capsule take 1 capsule by mouth once daily at bedtime, 30 days, 11 refills - Cyclobenzaprine HCl 10 MG Oral Tablet TAKE 1/2 TO 1 TABLET BY MOUTH EVERY 8 HOURS FOR 30 DAYS NEEDED FOR MUSCLE PAIN / SPASMS, 30 days, 5 refills - Estradiol 1 MG Oral Tablet once dailygyno, 90 days, 0 refills - Fluticasone Propionate 50 MCG/ACT Nasal Suspension inhale two sprays in each nostril once per day, 30 days, 11 refills - Gabapentin 300 MG Oral Capsule, conventional take 1 capsule by mouth twice daily, 30 days, 11 refills - hydrOXYzine Pamoate 25 MG Oral Capsule, conventional take 1 capsule by mouth every 6 hours as needed for anxiety / may cause drowsiness, 30 days, 5 refills - Nitroglycerin 0.4 MG Sublingual Tablet Sublingual as directed dr mora, 0 days, 0 refills - Pantoprazole Sodium 40 MG Oral Tablet, enteric coated Tablet Delayed Release Take 1 tablet by mouth twicw daily, 30 days, 11 refills - PARoxetine HCl 40 MG Oral Tablet Take 1 tablet by mouth once daily, 30 days, 11 refills - Symbicort 80-4.5 MCG/ACT Inhalation Aerosol inhale 2 actuations by mouth twice daily , rinse and spit water after each use, 30 days, 11 refills - traZODone HCl 100 MG Oral Tablet take 1 tablet by mouth once daily 1 hour before bedtime, 30 days, 11 refills - Vitamin D (Cholecalciferol) 10 MCG (400 UNIT) Oral Capsule, conventional take 1 capsule by mouth once daily, 30 days, 11 refills - Zetia 10 MG Oral Tablet once dailyCardiology, 0 days, 0 refills - ZyrTEC Allergy 10 MG Oral Tablet Take 1 tablet by mouth once daily, 30 days, 5 refills Past Medical/Surgical History Reported: No recent change in medical history and Patient gave verbal consent for telehealth. Recent Events: Treatment response/compliance reports taking meds consistently. Medical: No previous hospitalizations. Immunization History: Recent immunization for flu. : Previously 6 time(s) and para having 4 live (s). Not planning a in the next year. Other: Cardiac catheterization coronary angiography was performed 10/20/21 right Diagnoses: Stenosis of coronary artery stent CVA. Surgical: - Cholecystectomy - Hernia repair 08/20/21 Dr. Sinclair - Hysterectomy 08/20/2021, prior to 12/02/18. Ref: CT Abdomen/Pelvis in Imaging oophorectomy 10/2021 - Back surgery 2 spinal fusions Social History Environmental Exposure: No secondhand cigarette smoke exposure. Behavioral: Not a current tobacco user. Tobacco use: Using electronic cigarettes/vaping. Alcohol: Not using alcohol. Drug Use: Not using drugs denied by patient. Sexual: Not sexually active. Sexual orientation Straight (not lesbian or santos) and gender identity Female. Allergies - CeleXA Reaction: Suicidal thoughts - Keflex Reaction: Skin Rashes / Eruption of skin - -No Environmental Allergies - -No Known Food Allergies - Plavix Family History Father: Brain aneurysm Paternal: Cardiovascular disorder CAD CVA Maternal: Cardiovascular disorder CAD Sororal: Oncologic disorder alveolar rhabdomyosarcoma Review Of Systems Head: No head symptoms. Neck: No neck symptoms. Eyes: No eye symptoms. Otolaryngeal: No ear symptoms, no nasal symptoms, no nose and sinus finding, no throat symptoms, no oral cavity symptoms, and no jaw symptoms. Breasts: No breast symptoms. Cardiovascular: No cardiovascular symptoms and no chest pain or discomfort. Pulmonary: No pulmonary symptoms. Gastrointestinal: No gastrointestinal symptoms. Genitourinary: No genitourinary symptoms. Musculoskeletal: No musculoskeletal symptoms. Neurological: No neurological symptoms. Psychological: Anxiety and depression. Skin: No skin symptoms. Cardiovascular: Edema not present. Physical Findings - Vitals taken 02/08/2024 04:53 pm BP-Sitting R154/92 mmHg BP Cuff SizeRegular Pulse Rate-Iprclsm65 bpm Czmiwv93 in [place]687 lbs Body Mass Index32.8 kg/m2 Body Surface Area1.9 m2 Oxygen Kmlasynnoe45 % - Vitals taken 02/08/2024 05:02 pm BP-Sitting R140/91 mmHg BP Cuff SizeLarge General Appearance: - Awake. - Alert. - Well developed. - Well nourished. - In no acute distress. Lungs: - Respiration rhythm and depth was normal. Cardiovascular: Heart Rate And Rhythm: - Normal. Heart Sounds: - Normal. Tests Urinalysis Was Performed: Urine color clear yellow. Laboratory-based Chemistry: Drug Screen: Value Urine Temperature 90 Urine drug screen by multiple class procedure. THC Not Present, PCP Not Present, OXY Not Present, [id number] Not Present, MTD Not Present, MET Not Present, MDMA Not Present, and COOPER Not Present. BZO Present. BUP Not Present, BAR Not Present, and AMP Not Present. Other Laboratory Tests: Screening for sexually transmitted infections was not performed. Educational Testing: In the Past 4 Weeks, Asthma kept me from getting much done at work/school/work? (4 Pts) A little of the Time, During the past 4 weeks, how often have you had shortness of breath? (4 Pts) Once or twice a week, During the past for 4 weeks, asthma symptoms woke me up at night or earlier than (4 Pts) Once or Twice, During the past 4 weeks, have used rescue inhaler or nebulizer medication (4 Pts) Once a week, and Asthma control during the past 4 weeks (4 Pts) Well controlled. Assessment - Z68.32 - Body mass index [BMI] 32.0-32.9, adult - J45.20 - Mild intermittent asthma, uncomplicated Test Conclusions Asthma Control Test (ACT), adult total score was 20 02/08/2024. Counseling/Education - Wishing to stop using electronic cigarettes/vaping - Discussed nutritional needs teach healthy choices including fruits and vegetables - Patient education about a proper diet - Discussed concerns about exercise: promote physical activity Plan StartCited- Generalized anxiety disorder ALPRAZolam 0.5 MG tablet take 1/2- 1 tablet by mouth every 8 hours as needed for severe anxiety, 7 days, 0 refills EndCited StartCited- Other Follow-up Appointment 14 days anxiety Cyclobenzaprine HCl 10 MG tablet TAKE 1/2 TO 1 TABLET BY MOUTH EVERY 8 HOURS FOR 30 DAYS NEEDED FOR MUSCLE PAIN / SPASMS, 30 days, 5 refills EndCited Get into counselor / grief oswald , list given for chiro and massage as well , self care is very important !! Advance Directives - Advance Care Planning Care Team - Ena Fung CNP Health Reminders - ACT satisfied 02/08/2024. - Assess BMI satisfied 02/08/2024. - Assess Tobacco Use satisfied 02/08/2024. - Follow Up Plan BMI Management satisfied 02/08/2024. User Defined 1 Not planning a in the next year. [facility]07-11-2024 Progress note* Progress note Date Encounter Last Documented by 01/27/2024 Open Access - Established Last d ocumented on 01/27/2024; 9:31 AM, Ena Fung CNP; [facility] Active Problems & Conditions - J45.20 - Asthma Mild Intermittent Uncomplicated - K21.9 - Esophageal Reflux Without Esophagitis - GERD (gastroesophageal reflux disease) - I10 - Essential (primary) hypertension - Hypertension - - F41.1 - Generalized Anxiety Disorder - 997.91 - Hypertension - Hypertension - F33.0 - Major Depression Recurrent Mild - K58.2 - Mixed irritable bowel syndrome - Irritable bowel syndrome with both constipation and diarrhea - Z90.710 - Postsurgical State Acquired Absence of Organ Genital Female Cervix and Uterus - G47.30 - Sleep apnea, unspecified Chief Complaint The Chief Complaint is: Sister 01/21/2024, she was sick with bone cancer. She had been careing for her and was with her when she passed. She states her sister was like a mother to her. Mike has been to the ER twice for the breathing issue she is having. She was given a shot of zofran and ativan, made her sick and dizzy. she has been told what she has is anxiety, now her neck is starting to hurt and she is getting headaches. tylenol seems to help. she is not sleeping well, she is drinking fluids and able to eat and keep food down. Referred Here Prior encounters 01/24 BP elevated and breathing. History of Present Illness Mike Sharif is a 48 year old female. - Allergy list reviewed - Reviewed Medications - Medication list reviewed Presents for ER f/u , sister passed on wednesday , grief resources given . aware that a small supply of xanax will be called in for this acute phase. aware that correction use of benzos can cause dependence and they must be taken excatly as rx'd , they will cause drowsiness so she shouldnt drive after taking Current Medication - *CPAP AND SUPPLIES Miscellaneous Miscellaneous (not specified) 0 days, 0 refills - *Captain/Check Airman Miscellaneous (not specified) posture corrector flexible brace , wear during the day / remove at bedtime, 30 days, 0 refills - *NEBULIZER AND SUPPLIES Miscellaneous Miscellaneous (not specified) Use as needed with medications, 30 days, 0 refills - Albuterol Sulfate HFA 108 (90 Base) MCG/ACT Inhalation Aerosol Solution Aerosol, solution inhale 1-2 puffs by mouth every 4-6 hours as needed for wheezing/ shortness of breath, 30 days, 5 refills - amLODIPine Besylate 2.5 MG Oral Tablet two tablets once dailyDrJeanette Mora, 90 days, 0 refills - Aspirin 81 MG Oral Tablet Delayed Release Tablet, enteric coated take 1 tablet by mouth once daily, 0 days, 0 refills - Atorvastatin Calcium 80 MG Oral Tablet take 1 tablet by mouth once daily at bedtime, 30 days, 11 refills - Brilinta 60 MG Oral Tablet one tablet two times dailyDrJeanette Mora, 90 days, 0 refills - Colace 100 MG Oral Capsule Capsule, conventional take 1 capsule by mouth once daily at bedtime, 30 days, 11 refills - Cyclobenzaprine HCl 10 MG Oral Tablet TAKE 1/2 TO 1 TABLET BY MOUTH EVERY 8 HOURS FOR 30 DAYS NEEDED FOR MUSCLE PAIN / SPASMS, 30 days, 5 refills - Estradiol 1 MG Oral Tablet once dailygyno, 90 days, 0 refills - Fluticasone Propionate 50 MCG/ACT Nasal Suspension inhale two sprays in each nostril once per day, 30 days, 11 refills - Gabapentin 300 MG Oral Capsule Capsule, conventional take 1 capsule by mouth twice daily, 30 days, 11 refills - hydrOXYzine Pamoate 25 MG Oral Capsule Capsule, conventional take 1 capsule by mouth every 6 hours as needed for anxiety / may cuase drowsiness, 30 days, 5 refills - Nitroglycerin 0.4 MG Sublingual Tablet Sublingual Tablet, sublingual as directed dr mora, 0 days, 0 refills - Pantoprazole Sodium 40 MG Oral Tablet Delayed Release Tablet, enteric coated Take 1 tablet by mouth twicw daily, 30 days, 5 refills - PARoxetine HCl 40 MG Oral Tablet Take 1 tablet by mouth once daily, 30 days, 11 refills - Symbicort 80-4.5 MCG/ACT Inhalation Aerosol inhale 2 actuations by mouth twice daily , rinse and spit water after each use, 30 days, 5 refills - traZODone HCl 100 MG Oral Tablet take 1 tablet by mouth once daily 1 hour before bedtime, 30 days, 11 refills - Vitamin D (Cholecalciferol) 10 MCG (400 UNIT) Oral Capsule Capsule, conventional take 1 capsule by mouth once daily, 30 days, 11 refills - Zetia 10 MG Oral Tablet once dailyCardiology, 0 days, 0 refills - ZyrTEC Allergy 10 MG Oral Tablet Take 1 tablet by mouth once daily, 30 days, 5 refills Past Medical/Surgical History Reported: No recent change in medical history and Patient gave verbal consent for telehealth. Recent Events: Treatment response/compliance reports taking meds consistently. Medical: Previous hospitalizations. Immunization History: Recent immunization for flu. : Previously 6 time(s) and para having 4 live (s). Not planning a in the next year. Other: Cardiac catheterization coronary angiography was performed 10/20/21 right Diagnoses: Stenosis of coronary artery stent CVA. Surgical: - Cholecystectomy - Hernia repair 08/20/21 Dr. Sinclair - Hysterectomy 08/20/2021, prior to 12/02/18. Ref: CT Abdomen/Pelvis in Imaging oophorectomy 10/2021 - Back surgery 2 spinal fusions Social History Environmental Exposure: Secondhand cigarette smoke exposure. Behavioral: Not a current tobacco user. Tobacco use: Not using electronic cigarettes/vaping. Sexual: Sexual orientation Straight (not lesbian or santos) and gender identity Female. Allergies - CeleXA Reaction: Suicidal thoughts - Keflex Reaction: Skin Rashes / Eruption of skin - -No Environmental Allergies - -No Known Food Allergies - Plavix Family History Father: Brain aneurysm Paternal: Cardiovascular disorder CAD CVA Maternal: Cardiovascular disorder CAD Sororal: Oncologic disorder alveolar rhabdomyosarcoma Review Of Systems Head: No head symptoms. Neck: No neck symptoms. Eyes: No eye symptoms. Otolaryngeal: No ear symptoms, no nasal symptoms, no nose and sinus finding, no throat symptoms, no oral cavity symptoms, and no jaw symptoms. Breasts: No breast symptoms. Cardiovascular: No cardiovascular symptoms and no chest pain or discomfort. Pulmonary: No pulmonary symptoms. Gastrointestinal: No gastrointestinal symptoms. Genitourinary: No genitourinary symptoms. Musculoskeletal: No musculoskeletal symptoms. Neurological: No neurological symptoms. Psychological: Anxiety, depression, and sleep. Skin: No skin symptoms. Cardiovascular: Edema not present. Physical Findings - Vitals taken 01/27/2024 08:51 am BP-Sitting L156/85 mmHg BP Cuff SizeLarge Pulse Rate-Turmibv89 bpm Uhrbbl95 in Zivzzr391 lbs Body Mass Index32.8 kg/m2 Body Surface Area1.9 m2 Oxygen Zkzgfpipjn85 % - Vitals taken 01/27/2024 09:02 am BP-Sitting L148/117 mmHg BP Cuff SizeLarge Vital Signs: - Systolic Blood Pressure > or = 140 mmHg. - Diastolic blood pressure > or = 90 mmHg. General Appearance: - Awake. - Alert. - Well developed. - Well nourished. - In no acute distress. Lungs: - Respiration rhythm and depth was normal. - Clear to auscultation. Cardiovascular: Heart Rate And Rhythm: - Normal. Heart Sounds: - Normal. Murmurs: - No murmurs were heard. Abdomen: Visual Inspection: - Abdomen was normal on visual inspection. Musculoskeletal System: General/bilateral: - Normal movement of all extremities. Skin: - General appearance was normal. Assessment - Z68.32 - Body mass index [BMI] 32.0-32.9, adult - Z13.1 - Encounter for screening for diabetes mellitus Counseling/Education - Discussed nutritional needs teach healthy choices including fruits and vegetables - Patient education about a proper diet - Discussed concerns about exercise: promote physical activity Plan StartCited- Generalized anxiety disorder hydrOXYzine Pamoate 25 MG capsule take 1 capsule by mouth every 6 hours as needed for anxiety / may cause drowsiness, 30 days, 5 refills ALPRAZolam 0.5 MG tablet take 1/2- 1 tablet by mouth every 8 hours as needed for severe anxiety, 7 days, 0 refills EndCited StartCited- Mild intermittent asthma, uncomplicated Symbicort 80-4.5 MCG/ACT gram inhale 2 actuations by mouth twice daily , rinse and spit water after each use, 30 days, 11 refills EndCited StartCited- Other Follow-up Appointment next med check Atorvastatin Calcium 80 MG tablet take 1 tablet by mouth once daily at bedtime, 30 days, 11 refills Pantoprazole Sodium 40 MG tablet Take 1 tablet by mouth twicw daily, 30 days, 11 refills Vitamin D (Cholecalciferol) 10 MCG (400 UNIT) capsule take 1 capsule by mouth once daily, 30 days, 11 refills Gabapentin 300 MG capsule take 1 capsule by mouth twice daily, 30 days, 11 refills EndCited StartCited- Other insomnia traZODone HCl 100 MG tablet take 1 tablet by mouth once daily 1 hour before bedtime, 30 days, 11 refills EndCited Contact frey for grief support and also a counselor oswald (lists given). Advance Directives - Advance Care Planning Care Team - Ena Fung CNP Health Reminders - Assess BMI satisfied 01/27/2024. - Assess Tobacco Use satisfied 01/27/2024. - Diabetes Risk Screening Needed satisfied 01/27/2024. - Follow Up Plan BMI Management satisfied 01/27/2024. User Defined 1 Not planning a in the next year. Yes (1 point) [Pre-DM]: Yes, mother, father, sister or brother has DM, Yes (1 point) [Pre-DM]: Yes, patient has been diagnosed with high blood pressure, No (0 points) [Pre-DM]: Patient has not been diagnosed with gestational diabetes or given to a baby weighing 9 pounds or more, Yes (0 point) [Pre-DM]: Yes, physically active, and Woman (0 Points) [Pre-DM]. 40 to 49 Years Old (1 Point) [Pre-DM]. [facility]07-11-2024 Progress note* Progress note Date Encounter Last Documented by 01/27/2024 Established Patient Last docu mented on 01/27/2024; 12:10 PM, Oliva [place]; [facility] Active Problems & Conditions - J45.20 - Asthma Mild Intermittent Uncomplicated - K21.9 - Esophageal Reflux Without Esophagitis - GERD (gastroesophageal reflux disease) - I10 - Essential (primary) hypertension - Hypertension - - F41.1 - Generalized Anxiety Disorder - 997.91 - Hypertension - Hypertension - F33.0 - Major Depression Recurrent Mild - K58.2 - Mixed irritable bowel syndrome - Irritable bowel syndrome with both constipation and diarrhea - Z90.710 - Postsurgical State Acquired Absence of Organ Genital Female Cervix and Uterus - G47.30 - Sleep apnea, unspecified Chief Complaint The Chief Complaint is: [facility] met with patient to follow-up regarding mood and PHQ score of 8. Patient reports that her sister from cancer 01/20 and she was with her at the time. Patient reports that she is feeling very anxious and stressed since then and is shaky and seems like her breath is catching. Patient reports that she did go to ER due to these symptoms and was given Ativan, but felt that it was not helpful. Patient is taking current medications as prescribed. Patient reports no thoughts of harm toward self or others. History of Present Illness Mike Sharif is a 48 year old female. - Appetite not normal - Irritability - Anxiety with persistent worry - About medical condition - With difficulty breathing - With chest pain or discomfort - With choking or smothering sensations - Depression - Sleep disturbances - Loss of interest in activities - Energy level is fair - Feeling guilty - Easily distracted - Racing thoughts - No anxiety with muscle tension or jitters - No impulsive behavior - No high involvement in pleasurable activities Current Medication - *CPAP AND SUPPLIES Miscellaneous Miscellaneous (not specified) 0 days, 0 refills - *Captain/Check Airman Miscellaneous (not specified) posture corrector flexible brace , wear during the day / remove at bedtime, 30 days, 0 refills - *NEBULIZER AND SUPPLIES Miscellaneous Miscellaneous (not specified) Use as needed with medications, 30 days, 0 refills - Albuterol Sulfate HFA 108 (90 Base) MCG/ACT Inhalation Aerosol Solution Aerosol, solution inhale 1-2 puffs by mouth every 4-6 hours as needed for wheezing/ shortness of breath, 30 days, 5 refills - ALPRAZolam 0.5 MG Oral Tablet take 1/2- 1 tablet by mouth every 8 hours as needed for severe anxiety, 7 days, 0 refills - amLODIPine Besylate 2.5 MG Oral Tablet two tablets once dailyDrJeanette Mora, 90 days, 0 refills - Aspirin 81 MG Oral Tablet Delayed Release Tablet, enteric coated take 1 tablet by mouth once daily, 0 days, 0 refills - Atorvastatin Calcium 80 MG Oral Tablet take 1 tablet by mouth once daily at bedtime, 30 days, 11 refills - Atorvastatin Calcium 80 MG Oral Tablet take 1 tablet by mouth once daily at bedtime, 30 days, 11 refills - Brilinta 60 MG Oral Tablet one tablet two times dailyDrJeanette Mora, 90 days, 0 refills - Colace 100 MG Oral Capsule Capsule, conventional take 1 capsule by mouth once daily at bedtime, 30 days, 11 refills - Cyclobenzaprine HCl 10 MG Oral Tablet TAKE 1/2 TO 1 TABLET BY MOUTH EVERY 8 HOURS FOR 30 DAYS NEEDED FOR MUSCLE PAIN / SPASMS, 30 days, 5 refills - Estradiol 1 MG Oral Tablet once dailygyno, 90 days, 0 refills - Fluticasone Propionate 50 MCG/ACT Nasal Suspension inhale two sprays in each nostril once per day, 30 days, 11 refills - Gabapentin 300 MG Oral Capsule Capsule, conventional take 1 capsule by mouth twice daily, 30 days, 11 refills - Gabapentin 300 MG Oral Capsule, conventional take 1 capsule by mouth twice daily, 30 days, 11 refills - hydrOXYzine Pamoate 25 MG Oral Capsule Capsule, conventional take 1 capsule by mouth every 6 hours as needed for anxiety / may cuase drowsiness, 30 days, 5 refills - hydrOXYzine Pamoate 25 MG Oral Capsule, conventional take 1 capsule by mouth every 6 hours as needed for anxiety / may cause drowsiness, 30 days, 5 refills - Nitroglycerin 0.4 MG Sublingual Tablet Sublingual Tablet, sublingual as directed dr mora, 0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 Body mass index [BM I] 34.0-34.9, adult Medical Established Patient with Ena Kenton SUPERINTENDENT PRESSURE 09/04/2020 Last Documented On 1 6:38PM ; [facility] Exposure to a viral disease Telemedicine Establisted Patient with Tao Reece SUPERINTENDENT PRESSURE 06/04/2020 Last Documented On 0 2:50PM ; [facility] Exposure to biological agent suspected Telemedicine Establisted Patient with Tao Reece SUPERINTENDENT PRESSURE 06/04/2020 Last Documented On 0 2:50PM ; [facility] Body mass index Telemedicine Establisted Patient with Ena 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 05/02/2020 Last Documented On 0 1:53PM ; [facility] Exposure to a viral disease Telemedicine Establisted Patient with Ena 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 05/02/2020 Last Documented On 0 1:53PM ; [facility] Obesity due to excess calories Telemedic ine Establisted Patient with Ena 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 05/02/2020 Last Documented On 0 1:53PM ; [facility] Anxiety disorder NOS [facility] Oliva Short LISWS 10/20/2019 Last Documented On 0 8:21AM ; [facility] Oliva Short LISWS 10/20/2019 Last Documented On 0 8:21AM ; [facility] Work Phone: 1(252) 628-637002-20-2024 Progress note* Progress note Date Encounter Last Documented by 09/07/2023 Medical Established Patient Last documented on 09/07/2023; 2:45 PM, Ena 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; [facility] Active Problems & Conditions - J45.20 - Asthma Mild Intermittent Uncomplicated - K21.9 - Esophageal Reflux Without Esophagitis - GERD (gastroesophageal reflux disease) - I10 - Essential (primary) hypertension - Hypertension - - F41.1 - Generalized Anxiety Disorder - 997.91 - Hypertension - Hypertension - F33.0 - Major Depression Recurrent Mild - K58.2 - Mixed irritable bowel syndrome - Irritable bowel syndrome with both constipation and diarrhea - Z90.710 - 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 Has had this off and on for a month now. Paroxetine and Flonase refills to [facility]. Referred Here Prior encounters 08/16/2023 Inpatient for abd pain, fluid on her lungs, fatty liver. History of Present Illness Mike Sharif is a 47 year old female. - Allergy list reviewed - Reviewed Medications - Medication list reviewed - Date of last menstruation 2013 Present on day 3 of flu like symptom onset , granddaughter tested positive for flu b late last week . after I put hypo kalemia dx on chart my MA found a repeat K of 3.9 that was done on 08/17/23 . advised pt impoartance of keeping that level normal and if appetite isnt good sub with electrolyte water /drink Current Medication - *CPAP AND SUPPLIES Miscellaneous 0 days, 0 refills - *Captain/Check Airman Miscellaneous (not specified) posture corrector flexible brace , wear during the day / remove at bedtime, 30 days, 0 refills - *NEBULIZER AND SUPPLIES Miscellaneous Use as needed with medications, 30 days, 0 refills - Albuterol Sulfate HFA 108 (90 Base) MCG/ACT Inhalation Aerosol Solution inhale 1-2 puffs by mouth every 4-6 hours as needed for wheezing/ shortness of breath, 30 days, 5 refills - amLODIPine Besylate 2.5 MG Oral Tablet two tablets once dailyDr. Ahmad, 90 days, 0 refills - Aspirin 81 MG Oral Tablet Delayed Release take 1 tablet by mouth once daily, 0 days, 0 refills - Atorvastatin Calcium 80 MG Oral Tablet take 1 tablet by mouth once daily at bedtime, 30 days, 11 refills - Brilinta 60 MG Oral Tablet one tablet two times dailyDr. Ahmad, 90 days, 0 refills - Colace 100 MG Oral Capsule take 1 capsule by mouth once daily at bedtime, 30 days, 11 refills - Cyclobenzaprine HCl 10 MG Oral Tablet TAKE 1/2 TO 1 TABLET BY MOUTH EVERY 8 HOURS FOR 30 DAYS NEEDED FOR MUSCLE PAIN / SPASMS, 30 days, 5 refills - Estradiol 1 MG Oral Tablet once dailygyno, 90 days, 0 refills - Fluticasone Propionate 50 MCG/ACT Nasal Suspension inhale two sprays in each nostril once per day, 30 days, 5 refills - Gabapentin 300 MG Oral Capsule take 1 capsule by mouth twice daily, 30 days, 11 refills - hydrOXYzine Pamoate 25 MG Oral Capsule take 1 capsule by mouth every 6 hours as needed for anxiety / may cuase drowsiness, 30 days, 5 refills - Nitroglycerin 0.4 MG Sublingual Tablet Sublingual as directed dr mora, 0 days, 0 refills - Pantoprazole Sodium 40 MG Oral Tablet Delayed Release Take 1 tablet by mouth twicw daily, 30 days, 5 refills - PARoxetine HCl 40 MG Oral Tablet Take 1 tablet by mouth once daily, 30 days, 5 refills - Symbicort 80-4.5 MCG/ACT Inhalation Aerosol inhale 2 actuations by mouth twice daily , rinse and spit water after each use, 30 days, 5 refills - traZODone HCl 100 MG Oral Tablet take 1 tablet by mouth once daily 1 hour before bedtime, 30 days, 11 refills - Vitamin D (Cholecalciferol) 10 MCG (400 UNIT) Oral Capsule take 1 capsule by mouth once daily, 30 days, 11 refills - Zetia 10 MG Oral Tablet once dailyCardiology, 0 days, 0 refills - ZyrTEC Allergy 10 MG Oral Tablet Take 1 tablet by mouth once daily, 30 days, 5 refills Past Medical/Surgical History Reported: No recent change in medical history and Patient gave verbal consent for telehealth. Recent Events: Treatment response/compliance reports taking meds consistently. Medical: Previous hospitalizations. : Previously 6 time(s) and para having 4 live (s). Not planning a in the next year. Other: Cardiac catheterization coronary angiography was performed 10/20/21 right Diagnoses: Stenosis of coronary artery stent CVA. Surgical: - Cholecystectomy - Hernia repair 08/20/21 Dr. Sinclair - Hysterectomy 12/02/2018, prior to 12/02/18. Ref: CT Abdomen/Pelvis in Imaging oophorectomy 10/2021 - Back surgery 2 spinal fusions Social History Environmental Exposure: Secondhand cigarette smoke exposure. Behavioral: Not a current tobacco user. Tobacco use: Not using electronic cigarettes/vaping. Sexual: Sexual orientation Straight (not lesbian or santos) and gender identity Female. Allergies - Keflex Reaction: rash - -No Environmental Allergies - -No Known Food Allergies - Plavix Family History Father: Brain aneurysm Paternal: Cardiovascular disorder CAD CVA Maternal: Cardiovascular disorder CAD Sororal: Oncologic disorder alveolar rhabdomyosarcoma Review Of Systems Head: No head symptoms. Neck: No neck symptoms. Eyes: No eye symptoms. Otolaryngeal: No ear symptoms. Nasal symptoms, nose and sinus finding, and throat pain. No oral cavity symptoms and no jaw symptoms. Breasts: No breast symptoms. Cardiovascular: No cardiovascular symptoms and no chest pain or discomfort. Pulmonary: I cough all the time x 3-4 days. Gastrointestinal: No gastrointestinal symptoms. Genitourinary: No genitourinary symptoms. Musculoskeletal: Musculoskeletal symptoms general body aches and pains. Neurological: No neurological symptoms. Psychological: No psychological symptoms. Skin: No skin symptoms. Physical Findings - Vitals taken 09/07/2023 01:56 pm BP-Sitting R123/82 mmHg BP Cuff SizeLarge Pulse Rate-Yigbcqo27 bpm Temp-Wypelwzx76.4 F Ebknqo37 in Jskyvf747 lbs Body Mass Index33.3 kg/m2 Body Surface Area1.9 m2 Oxygen Ivsimyyrut58 % Vital Signs: - Systolic blood pressure < 130 mmHg. - Diastolic blood pressure 80-89 mmHg. General Appearance: - Awake. - Alert. - Well developed. - Well nourished. - In no acute distress. Head: Appearance: - Head normocephalic. Scar: - No scar on the head. Scalp: - Normal. Skull Tenderness: - No skull tenderness. Crepitus: - Head showed no crepitus. Temporal Arteries: - Normal. Neck: Appearance: - Of the neck was normal. Palpation: - Of the neck revealed no abnormalities. Suppleness: - Neck demonstrated no decrease in suppleness. Maneuvers: - Neck maneuvers elicited no abnormal responses. Weakness: - No neck weakness was seen. Thyroid: - Not diffusely enlarged. - Did not have a mass. - Did not have a nodule. - Not irregular to palpation. - Not tender. Cervical Mass: - No cervical mass was seen. Scar: - No surgical/traumatic scar was seen on the neck. Eyes: General/bilateral: Extraocular Movements: - Normal. Pupils: - PERRLA. - Size of the pupil was normal. - Reactive to light. - Showed normal accommodation. - No abnormal pupil function. External: - Eyelids showed no abnormalities. Sclera: - Normal. Ears: General/bilateral: Outer Ear: - Normal. Tympanic Membrane: - Examined. - Bulging. Hearing Exam: - No hearing abnormalities. Right Ear: - Examined. Left Ear: - Examined. Nose: General/bilateral: Discharge: - No nasal discharge. Nasal Malformation: - No nasal malformation. External Deformities: - No external nose deformities. External Mass: - No external nasal mass. Piercings: - Nose was not pierced. Cavity: - Nasal turbinate abnormalities. - Bilateral turbinate bone abnormalities. - Nasal turbinate erythematous. - No nasal cavity abnormalities. Nasal Erythema: - No nasal erythema was noted. Nasal Edema: - No nasal edema was noted. Nasal Bone Tenderness: - No nasal bone tenderness. Sinus Tenderness: - No sinus tenderness. Oral Cavity: - Odor of breath was normal. Lips: - Showed no abnormalities. Frenum Attachment: - Showed no abnormalities. Gums: - Examination showed no abnormalities. Teeth: - Dental no abnormalities. Buccal Mucosa: - Showed no mucosal abnormalities. Tongue: - Examination showed no abnormalities. Salivary Glands: - No salivary calculus was found. - Sublingual glands were not tender. - Sublingual glands were not swollen. - Sublingual glands did not have erythematous overlying mucosa. Palate: - Hard palate was normal. - Not cleft. - Showed no mucosal abnormalities. Pharynx: Nasopharynx: - Normal. Oropharynx: - Normal. Hypopharynx: - Normal. Mucosal: - Pharynx had no mucosal abnormalities. Lymph Nodes: - No adenopathy. Lungs: - Respiration rhythm and depth was normal. - Clear to auscultation. Cardiovascular: Heart Rate And Rhythm: - Normal. Heart Sounds: - Normal. Abdomen: Visual Inspection: - Abdomen was normal on visual inspection. Musculoskeletal System: General/bilateral: - Normal movement of all extremities. Neurological: - Oriented to time, place, and person. Skin: - General appearance was normal. Tests Microbiology: Infectious Agent Antigen Detection: Enzyme immunoassay for influenza B antigen positive. Enzyme immunoassay for influenza A antigen negative. Assessment - Z68.33 - Body mass index [BMI] 33.0-33.9, adult - J10.1 - Influenza due to other identified influenza virus with other respiratory manifestations - E87.6 - Hypokalemia Therapy - Patient refused flu vaccine. Discussed benefits of flu vaccine with Patient. Vaccinations - Received dose of Reported: Patient has received the COVID Vaccine Counseling/Education - Discussed nutritional needs teach healthy choices including fruits and vegetables - Patient education about a proper diet - Patient education about an asthma action plan - Discussed concerns about exercise: promote physical activity Plan StartCited- Flu due to oth ident influenza virus w oth resp manifest Tamiflu 75 MG capsule take 1 capsule by mouth twice daily, 5 days, 0 refills predniSONE 20 MG tablet take 1 tablet by mouth twice daily x 5 days, 5 days, 0 refills EndCited StartCited- Other Follow-up Appointment 6 month wellness appt PARoxetine HCl 40 MG tablet Take 1 tablet by mouth once daily, 30 days, 11 refills Fluticasone Propionate 50 MCG/ACT gram inhale two sprays in each nostril once per day, 30 days, 11 refills EndCited Diffuser with eucalyptus oil , at least 68 ounces of water daily along with electrolyte drink to keep potassium no rmal / prevent irregular heart rhythms. Notes - Patient is not interested in the COVID-19 vaccination at this time. Advance Directives - Advance Care Planning Care Team - Ena Fung CNP Health Reminders - Assess BMI satisfied 09/07/2023. - Assess Tobacco Use satisfied 09/07/2023. - Follow Up Plan BMI Management satisfied 09/07/2023. [facility]02-20-2024 Progress note* Progress note Date Encounter Last Documented by 09/07/2023 Medical Established Patient Last documented on 09/07/2023; 2:49 PM, Ena Fung CNP; [facility] Active Problems & Conditions - J45.20 - Asthma Mild Intermittent Uncomplicated - K21.9 - Esophageal Reflux Without Esophagitis - GERD (gastroesophageal reflux disease) - I10 - Essential (primary) hypertension - Hypertension - - F41.1 - Generalized Anxiety Disorder - 997.91 - Hypertension - Hypertension - F33.0 - Major Depression Recurrent Mild - K58.2 - Mixed irritable bowel syndrome - Irritable bowel syndrome with both constipation and diarrhea - Z90.710 - Postsurgical State 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 Has had this off and on for a month now. Paroxetine and Flonase refills to [facility]. Referred Here Prior encounters 08/16/2023 Inpatient for abd pain, fluid on her lungs, fatty liver. History of Present Illness Mike Sharif is a 47 year old female. - Allergy list reviewed - Reviewed Medications - Medication list reviewed - Date of last menstruation 2013 Present on day 3 of flu like symptom onset , granddaughter tested positive for flu b late last week . after I put hypo kalemia dx on chart my MA found a repeat K of 3.9 that was done on 08/17/23 . advised pt impoartance of keeping that level normal and if appetite isnt good sub with electrolyte water /drink. declined covid and strep testing . sees GI tomorrow and pulm next week to f/u on pulmonary effusion on MRI Current Medication - *CPAP AND SUPPLIES Miscellaneous 0 days, 0 refills - *Captain/Check Airman Miscellaneous (not specified) posture corrector flexible brace , wear during the day / remove at bedtime, 30 days, 0 refills - *NEBULIZER AND SUPPLIES Miscellaneous Use as needed with medications, 30 days, 0 refills - Albuterol Sulfate HFA 108 (90 Base) MCG/ACT Inhalation Aerosol Solution inhale 1-2 puffs by mouth every 4-6 hours as needed for wheezing/ shortness of breath, 30 days, 5 refills - amLODIPine Besylate 2.5 MG Oral Tablet two tablets once dailyDr. Ahmad, 90 days, 0 refills - Aspirin 81 MG Oral Tablet Delayed Release take 1 tablet by mouth once daily, 0 days, 0 refills - Atorvastatin Calcium 80 MG Oral Tablet take 1 tablet by mouth once daily at bedtime, 30 days, 11 refills - Brilinta 60 MG Oral Tablet one tablet two times dailyDr. Ahmad, 90 days, 0 refills - Colace 100 MG Oral Capsule take 1 capsule by mouth once daily at bedtime, 30 days, 11 refills - Cyclobenzaprine HCl 10 MG Oral Tablet TAKE 1/2 TO 1 TABLET BY MOUTH EVERY 8 HOURS FOR 30 DAYS NEEDED FOR MUSCLE PAIN / SPASMS, 30 days, 5 refills - Estradiol 1 MG Oral Tablet once dailygyno, 90 days, 0 refills - Fluticasone Propionate 50 MCG/ACT Nasal Suspension inhale two sprays in each nostril once per day, 30 days, 5 refills - Gabapentin 300 MG Oral Capsule take 1 capsule by mouth twice daily, 30 days, 11 refills - hydrOXYzine Pamoate 25 MG Oral Capsule take 1 capsule by mouth every 6 hours as needed for anxiety / may cuase drowsiness, 30 days, 5 refills - Nitroglycerin 0.4 MG Sublingual Tablet Sublingual as directed dr mora, 0 days, 0 refills - Pantoprazole Sodium 40 MG Oral Tablet Delayed Release Take 1 tablet by mouth twicw daily, 30 days, 5 refills - PARoxetine HCl 40 MG Oral Tablet Take 1 tablet by mouth once daily, 30 days, 5 refills - Symbicort 80-4.5 MCG/ACT Inhalation Aerosol inhale 2 actuations by mouth twice daily , rinse and spit water after each use, 30 days, 5 refills - traZODone HCl 100 MG Oral Tablet take 1 tablet by mouth once daily 1 hour before bedtime, 30 days, 11 refills - Vitamin D (Cholecalciferol) 10 MCG (400 UNIT) Oral Capsule take 1 capsule by mouth once daily, 30 days, 11 refills - Zetia 10 MG Oral Tablet once dailyCardiology, 0 days, 0 refills - ZyrTEC Allergy 10 MG Oral Tablet Take 1 tablet by mouth once daily, 30 days, 5 refills Past Medical/Surgical History Reported: No recent change in medical history and Patient gave verbal consent for telehealth. Recent Events: Treatment response/compliance reports taking meds consistently. Medical: Previous hospitalizations. : Previously 6 time(s) and para having 4 live (s). Not planning a in the next year. Other: Cardiac catheterization coronary angiography was performed 10/20/21 right Diagnoses: Stenosis of coronary artery stent CVA. Surgical: - Cholecystectomy - Hernia repair 08/20/21 Dr. Sinclair - Hysterectomy 12/02/2018, prior to 12/02/18. Ref: CT Abdomen/Pelvis in Imaging oophorectomy 10/2021 - Back surgery 2 spinal fusions Social History Environmental Exposure: Secondhand cigarette smoke exposure. Behavioral: Not a current tobacco user. Tobacco use: Not using electronic cigarettes/vaping. Sexual: Sexual orientation Straight (not lesbian or santos) and gender identity Female. Allergies - Keflex Reaction: rash - -No Environmental Allergies - -No Known Food Allergies - Plavix Family History Father: Brain aneurysm Paternal: Cardiovascular disorder CAD CVA Maternal: Cardiovascular disorder CAD Sororal: Oncologic disorder alveolar rhabdomyosarcoma Review Of Systems Head: No head symptoms. Neck: No neck symptoms. Eyes: No eye symptoms. Otolaryngeal: No ear symptoms. Nasal symptoms, nose and sinus finding, and throat pain. No oral cavity symptoms and no jaw symptoms. Breasts: No breast symptoms. Cardiovascular: No cardiovascular symptoms and no chest pain or discomfort. Pulmonary: I cough all the time x 3-4 days. Gastrointestinal: No gastrointestinal symptoms. Genitourinary: No genitourinary symptoms. Musculoskeletal: Musculoskeletal symptoms general body aches and pains. Neurological: No neurological symptoms. Psychological: No psychological symptoms. Skin: No skin symptoms. Physical Findings - Vitals taken 09/07/2023 01:56 pm BP-Sitting R123/82 mmHg BP Cuff SizeLarge Pulse Rate-Sdvgcwg25 bpm Temp-Qimeibhq12.4 F Urteoq12 in [id number] lbs Body Mass Index33.3 kg/m2 Body Surface Area1.9 m2 Oxygen Bvwfvvnrdu30 % Vital Signs: - Systolic blood pressure < 130 mmHg. - Diastolic blood pressure 80-89 mmHg. General Appearance: - Awake. - Alert. - Well developed. - Well nourished. - In no acute distress. Head: Appearance: - Head normocephalic. Scar: - No scar on the head. Scalp: - Normal. Skull Tenderness: - No skull tenderness. Crepitus: - Head showed no crepitus. Temporal Arteries: - Normal. Neck: Appearance: - Of the neck was normal. Palpation: - Of the neck revealed no abnormalities. Suppleness: - Neck demonstrated no decrease in suppleness. Maneuvers: - Neck maneuvers elicited no abnormal responses. Weakness: - No neck weakness was seen. Thyroid: - Not diffusely enlarged. - Did not have a mass. - Did not have a nodule. - Not irregular to palpation. - Not tender. Cervical Mass: - No cervical mass was seen. Scar: - No surgical/traumatic scar was seen on the neck. Eyes: General/bilateral: Extraocular Movements: - Normal. Pupils: - PERRLA. - Size of the pupil was normal. - Reactive to light. - Showed normal accommodation. - No abnormal pupil function. External: - Eyelids showed no abnormalities. Sclera: - Normal. Ears: General/bilateral: Outer Ear: - Normal. Tympanic Membrane: - Examined. - Bulging. Hearing Exam: - No hearing abnormalities. Right Ear: - Examined. Left Ear: - Examined. Nose: General/bilateral: Discharge: - No nasal discharge. Nasal Malformation: - No nasal malformation. External Deformities: - No external nose deformities. External Mass: - No external nasal mass. Piercings: - Nose was not pierced. Cavity: - Nasal turbinate abnormalities. - Bilateral turbinate bone abnormalities. - Nasal turbinate erythematous. - No nasal cavity abnormalities. Nasal Erythema: - No nasal erythema was noted. Nasal Edema: - No nasal edema was noted. Nasal Bone Tenderness: - No nasal bone tenderness. Sinus Tenderness: - No sinus tenderness. Oral Cavity: - Odor of breath was normal. Lips: - Showed no abnormalities. Frenum Attachment: - Showed no abnormalities. Gums: - Examination showed no abnormalities. Teeth: - Dental no abnormalities. Buccal Mucosa: - Showed no mucosal abnormalities. Tongue: - Examination showed no abnormalities. Salivary Glands: - No salivary calculus was found. - Sublingual glands were not tender. - Sublingual glands were not swollen. - Sublingual glands did not have erythematous overlying mucosa. Palate: - Hard palate was normal. - Not cleft. - Showed no mucosal abnormalities. Pharynx: Nasopharynx: - Normal. Oropharynx: - Normal. Hypopharynx: - Normal. Mucosal: - Pharynx had no mucosal abnormalities. Lymph Nodes: - No adenopathy. Lungs: - Respiration rhythm and depth was normal. - Clear to auscultation. Cardiovascular: Heart Rate And Rhythm: - Normal. Heart Sounds: - Normal. Abdomen: Visual Inspection: - Abdomen was normal on visual inspection. Musculoskeletal System: General/bilateral: - Normal movement of all extremities. Neurological: - Oriented to time, place, and person. Skin: - General appearance was normal. Tests Microbiology: Infectious Agent Antigen Detection: Enzyme immunoassay for influenza B antigen positive. Enzyme immunoassay for influenza A antigen negative. Assessment - Z68.33 - Body mass index [BMI] 33.0-33.9, adult - J10.1 - Influenza due to other identified influenza virus with other respiratory manifestations - E87.6 - Hypokalemia Therapy - Patient refused flu vaccine. Discussed benefits of flu vaccine with Patient. Vaccinations - Received dose of Reported: Patient has received the COVID Vaccine Counseling/Education - Discussed nutritional needs teach healthy choices including fruits and vegetables - Patient education about a proper diet - Patient education about an asthma action plan - Discussed concerns about exercise: promote physical activity Plan StartCited- Flu due to oth ident influenza virus w oth resp manifest Tamiflu 75 MG capsule take 1 capsule by mouth twice daily, 5 days, 0 refills predniSONE 20 MG tablet take 1 tablet by mouth twice daily x 5 days, 5 days, 0 refills EndCited StartCited- Other Follow-up Appointment 6 month wellness appt PARoxetine HCl 40 MG tablet Take 1 tablet by mouth once daily, 30 days, 11 refills Fluticasone Propionate 50 MCG/ACT gram inhale two sprays in each nostril once per day, 30 days, 11 refills EndCited Diffuser with eucalyptus oil , at least 68 ounces of water daily along with electrolyte drink to keep potassium no rmal / prevent irregular heart rhythms. Notes - Patient is not interested in the COVID-19 vaccination at this time. Advance Directives - Advance Care Planning Care Team - Ena Fung CNP Health Reminders - Assess BMI satisfied 09/07/2023. - Assess Tobacco Use satisfied 09/07/2023. - Follow Up Plan BMI Management satisfied 09/07/2023. [facility]02-02-2024 Evaluation note Includes: Assessments for all patient encounters Findings Encounter Date [Z68.32 - Body mass index [B DC] 32.0-32.9, adult] assessment of body mass index Medical Established Patient with Vicky Call CNP 08/20/2023 Last Documented On 4 8:26AM ; [facility] Chronic gastritis Medical Established Patient wi th Vicky Call SUPERINTENDENT PRESSURE 08/20/2023 Last Documented On 4 8:26AM ; [facility] Esophageal reflux without esophagitis Me dical Established Patient with Vicky Call SUPERINTENDENT PRESSURE 08/20/2023 Last Documented On 4 8:26AM ; [facility] Generalized anxiety disorder Medical Est ablished Patient with Vicky Call SUPERINTENDENT PRESSURE 08/20/2023 Last Documented On 4 8:26AM ; [facility] Uncomplicated mild intermittent asthma M edical Established Patient with Vicky Call SUPERINTENDENT PRESSURE 08/20/2023 Last Documented On 4 8:26AM ; [facility] Generalized anxiety disorder BH Establis hed Patient with Oliva Short LISWS 08/04/2023 Last Documented On 4 1:56PM ; [facility] Mild recurrent major depression BH Estab lished Patient with Oliva Short LISWS 08/04/2023 Last Documented On 4 1:56PM ; [facility] [J01.90 - Acute sinusitis, unspecified] acute sinusitis Medical Established Patient with Ena 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 08/04/2023 Last Documented On 4 4:29PM ; [facility] [J45.20 - Mild intermittent asthma, uncomplicated]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 - Of the neck was normal. Palpation: - Of the neck revealed no abnormalities. Suppleness: - Neck demonstrated no decrease in suppleness. Maneuvers: - Neck maneuvers elicited no abnormal responses. Weakness: - No neck weakness was seen. Cervical Mass: - No cervical mass was seen. Scar: - No surgical/traumatic scar was seen on the neck. Eyes: General/bilateral: Extraocular Movements: - Normal. Pupils: - PERRLA. - Size of the pupil was normal. - Reactive to light. - Showed normal accommodation. - No abnormal pupil function. External: - Eyelids showed no abnormalities. Sclera: - Normal. Ears: General/bilateral: Outer Ear: - Normal. Tympanic Membrane: - Examined. - Bulging clear. - Tympanic membranes bulging bilaterally. Hearing Exam: - No hearing abnormalities. Right Ear: - Examined. Left Ear: - Examined. Nose: General/bilateral: Discharge: - No nasal discharge. Nasal Malformation: - No nasal malformation. External Deformities: - No external nose deformities. External Mass: - No external nasal mass. Piercings: - Nose was not pierced. Cavity: - Nasal turbinate abnormalities. - Bilateral turbinate bone abnormalities. - Nasal turbinate erythematous. - No nasal cavity abnormalities. Nasal Erythema: - No nasal erythema was noted. Nasal Edema: - No nasal edema was noted. Nasal Bone Tenderness: - No nasal bone tenderness. Sinus Tenderness: - No sinus tenderness. Oral Cavity: - Odor of breath was normal. Lips: - Showed no abnormalities. Frenum Attachment: - Showed no abnormalities. Gums: - Examination showed no abnormalities. Teeth: - Dental no abnormalities. Buccal Mucosa: - Showed no mucosal abnormalities. Tongue: - Examination showed no abnormalities. Salivary Glands: - No salivary calculus was found. - Sublingual glands were not tender. - Sublingual glands were not swollen. - Sublingual glands did not have erythematous overlying mucosa. Palate: - Hard palate was normal. - Not cleft. - Showed no mucosal abnormalities. Pharynx: Nasopharynx: - Normal. Oropharynx: - Abnormal post nasal drip. Hypopharynx: - Normal. Mucosal: - Pharynx had no mucosal abnormalities. Tests Laboratory-based Chemistry: Other Laboratory Tests: Screening for sexually transmitted infections was not performed. Educational Testing: In the Past 4 Weeks, Asthma kept me from getting much done at work/school/work? (4 Pts) A little of the Time, During the past 4 weeks, how often have you had shortness of breath? (4 Pts) Once or twice a week, During the past for 4 weeks, asthma symptoms woke me up at night or earlier than (5 Pts) Not at all, During the past 4 weeks, have used rescue inhaler or nebulizer medication (4 Pts) Once a week, and Asthma control during the past 4 weeks (4 Pts) Well controlled. Assessment - Z68.33 - Body mass index [BMI] 33.0-33.9, adult - J01.90 - Acute sinusitis, unspecified - J45.20 - Mild intermittent asthma, uncomplicated - K59.09 - Other constipation - F41.1 - Generalized anxiety disorder Test Conclusions Asthma Control Test (ACT), adult total score was 21 08/04/2023. Therapy - Patient refused flu vaccine. Discussed benefits of flu vaccine with Patient. Vaccinations - Received dose of Reported: Patient has received the COVID Vaccine Counseling/Education - Wishing to stop using electronic cigarettes/vaping - Discussed nutritional needs teach healthy choices including fruits and vegetables - Patient education about a proper diet - Not requesting contraception - Discussed concerns about exercise: promote physical activity Plan StartCited- Acute sinusitis, unspecified predniSONE 20 MG tablet take 1 tablet by mouth twice daily, 5 days, 0 refills EndCited StartCited- Generalized anxiety disorder hydrOXYzine Pamoate 25 MG capsule take 1 capsule by mouth every 6 hours as needed for anxiety / may cuase drowsiness, 30 days, 5 refills EndCited StartCited- Localized swelling, mass and lump, left upper limb Referrals: General Surgery Instructions: Please make a referral to: EndCited StartCited- Other constipation Colace 100 MG capsule take 1 capsule by mouth once daily at bedtime, 30 days, 11 refills EndCited Make sure taking allergy meds daily , drink at least 68 ounces of water daily and keep air in home humified. Advance Directives - Advance Care Planning Health Reminders - ACT satisfied 08/04/2023. - Assess BMI satisfied 08/04/2023. - Assess Tobacco Use satisfied 08/04/2023. - Follow Up Plan BMI Management satisfied 08/04/2023. [facility]01-17-2024 Progress note* Progress note Date Encounter Last Documented by 08/04/2023 Established Patient Last docu mented on 08/05/2023; 1:56 PM, Oliva [place]; [facility] Active Problems & Conditions - J45.20 - Asthma Mild Intermittent Uncomplicated - I10 - Essential (primary) hypertension - Hypertension - - K21.9 - Gastro-esophageal reflux disease without esophagitis - GERD (gastroesophageal reflux disease) - F41.1 - Generalized Anxiety Disorder - 997.91 - Hypertension - Hypertension - F33.0 - Major Depression Recurrent Mild - K58.2 - Mixed irritable bowel syndrome - Irritable bowel syndrome with both constipation and diarrhea - Z90.710 - Postsurgical State Acquired Absence of Organ 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 Patient reports that she has been under a lot stress recently and found out her sister has cancer. Patient reports that she has noticed decreased interest, feeling down, poor sleep, decreased energy, and feeling like a failure. Patient reports anxiety and feeling overwhelmed often. Patient is not sure that Buspar is helpful and would be open to changing medications. Patient reports no thoughts of harm toward self or others. History of Present Illness Mike Sharif is a 47 year old female. - No Irritability - Normal appetite - Anxiety - Depression - Sleep disturbances - Loss of interest in activities - Energy level is fair - Easily distracted - Racing thoughts - No social isolation - No impulsive behavior - No high involvement in pleasurable activities Current Medication - *CPAP AND SUPPLIES Miscellaneous 0 days, 0 refills - *Captain/Check Airman Miscellaneous (not specified) posture corrector flexible brace , wear during the day / remove at bedtime, 30 days, 0 refills - *NEBULIZER AND SUPPLIES Miscellaneous Use as needed with medications, 30 days, 0 refills - Albuterol Sulfate HFA 108 (90 Base) MCG/ACT Inhalation Aerosol Solution inhale 1-2 puffs by mouth every 4-6 hours as needed for wheezing/ shortness of breath, 30 days, 5 refills - amLODIPine Besylate 2.5 MG Oral Tablet two tablets once dailyDr. Ahmad, 90 days, 0 refills - Aspirin 81 MG Oral Tablet Delayed Release take 1 tablet by mouth once daily, 0 days, 0 refills - Atorvastatin Calcium 80 MG Oral Tablet take 1 tablet by mouth once daily at bedtime, 30 days, 11 refills - Brilinta 60 MG Oral Tablet one tablet two times dailyDr. Ahmad, 90 days, 0 refills - Carafate 1 GM Oral Tablet take 1 tablet by mouth 1 hour before meals , four times daily, 30 days, 0 refills - Colace 100 MG Oral Capsule take 1 capsule by mouth once daily at bedtime, 30 days, 11 refills - Cyclobenzaprine HCl 10 MG Oral Tablet TAKE 1/2 TO 1 TABLET BY MOUTH EVERY 8 HOURS FOR 30 DAYS NEEDED FOR MUSCLE PAIN / SPASMS, 30 days, 5 refills - Estradiol 1 MG Oral Tablet once dailygyno, 90 days, 0 refills - Fluticasone Propionate 50 MCG/ACT Nasal Suspension inhale two sprays in each nostril once per day, 30 days, 5 refills - Gabapentin 300 MG Oral Capsule take 1 capsule by mouth twice daily, 30 days, 11 refills - hydrOXYzine Pamoate 25 MG Oral Capsule take 1 capsule by mouth every 6 hours as needed for anxiety / may cuase drowsiness, 30 days, 5 refills - Nitroglycerin 0.4 MG Sublingual Tablet Sublingual as directed dr mora, 0 days, 0 refills - Pantoprazole Sodium 40 MG Oral Tablet Delayed Release Take 1 tablet by mouth once daily, 30 days, 5 refills - PARoxetine HCl 40 MG Oral Tablet Take 1 tablet by mouth once daily, 30 days, 5 refills - predniSONE 20 MG Oral Tablet take 1 tablet by mouth twice daily, 5 days, 0 refills - Symbicort 80-4.5 MCG/ACT Inhalation Aerosol inhale 2 actuations by mouth twice daily , rinse and spit water after each use, 30 days, 5 refills - traZODone HCl 100 MG Oral Tablet take 1 tablet by mouth once daily 1 hour before bedtime, 30 days, 11 refills - Vitamin D (Cholecalciferol) 10 MCG (400 UNIT) Oral Capsule take 1 capsule by mouth once daily, 30 days, 11 refills - Zetia 10 MG Oral Tablet once dailyCardiology, 0 days, 0 refills - ZyrTEC Allergy 10 MG Oral Tablet Take 1 tablet by mouth once daily, 30 days, 5 refills Social History Environmental Exposure: No secondhand cigarette smoke exposure. Personal: Recent emotional stress. Behavioral: Not a current tobacco user. Tobacco use: Using electronic cigarettes/vaping. Alcohol: Not using alcohol. Drug Use: Not using drugs. Housing And Economic Circumstances: Lives with parents. Physical Findings General Appearance: - Normal Appearance. Neurological: - Estimated intelligence was normal. - Oriented to time, place, and person. - No hallucinations. - Judgement was not impaired. Speech: - Is Normal. Psychiatric: - Mood was anxious. - Mood was concerned. - Attitude Open. Demonstrated Behavior: - Motor Activity Normal Activity. - Eye Contact Appropriate. Affect: - Congruent with the mood. Thought Content: - Insight was intact. - No delusions. - No suicidal ideation. - No Passive thoughts of . - No suicidal plans. - No suicidal intent. - No homicidal ideations. - No homicidal plans. - No homicidal intent. Past Medical: - No repetitive self injurious behavior. Assessment - F33.0 - Major depressive disorder, recurrent, mild - F41.1 - Generalized anxiety disorder Therapy - Brief solution-focused therapy. - Adherent with medications. - Plan - PCP to start patient Hydroxyzine 25mg every 6 hours as needed for anxiety. Patient to continue other medications as prescribed. Patient agreeable to plan and Collaborated with patient and provider: Counseling/Education P offered active and supportive listening, normalized emotions and feelings, and processed current stressors. P discussed coping skills to manage increased anxiety. P discussed community resources and supports. Plan Patient to take medications as prescribed and contact the office with any questions or concerns. Patient to implement coping skills and positive supports as discussed. P to follow-up with patient at next visit as scheduled. Advance Directives - Advance Care Planning Health Reminders - Assess Tobacco Use satisfied 08/04/2023. - BRANDON-2 satisfied 08/04/2023. - PHQ9 / PHQA satisfied 08/04/2023. User Defined 1 Not afraid of someone you have a relationship with No. Has lack of transportation kept patient from medical appointments or from getting medications: No and lack of transportation has kept patient from beneficial non-medical activities: No. Do you feel stress - tense, restless, nervous, or anxious, or unable to sleep at night because your mind is troubled all the time - these days? Quite a bit and Does patient feel physically and emotionally safe where he/she lives: Yes. Is patient is worried about losing housing: No. What is the highest grade or level of school you have completed or the highest degree you have received? Less than high school degree. In the past year, patient or family members in household were unable to get needed clothing: No, unable to get needed childcare administrator: No, unable to get other needs No, unable to get needed phone: No, unable to get needed utilities: No, unable to get needed Medicine or Health Care: No, and In the past year, patient or family members in household were unable to get needed food: No. How often does patient see or talk to people that that he/she cares about and feels close to: 3 to 5 times a week. BRANDON-2 score was three 08/04/2023, BRANDON-7 score was ten [BRANDON-7] Feeling nervous, anxious or on edge? + 2 pt : More than half the days, [BRANDON-7] Feeling nervous, anxious or on edge? + 2 pt : More than half the days, [BRANDON-7] Not being able to stop or control worrying? + 1 pt : Several days, [BRANDON-7] Not being able to stop or control worrying? + 1 pt : Several days, [BRANDON-7] Worrying too much about different things? + 2 pt : More than half the days, [BRANDON-7] Trouble relaxing? + 2 pt : More than half the days, [BRANDON-7] Being so restless that it's hard to sit still? + 0 pt : Not at all, [BRANDON-7] Becoming easily annoyed or irritable? + 1 pt : Several days, [BRANDON-7] Feeling afraid as if something awful might happen? + 2 pt : More than half the days, Patient Health Questionnaire 9-Item total score was six 08/04/2023 If you checked off problems, how difficult is it for you to do your work? + : Somewhat difficult, [PHQ-9-1] Little interest or pleasure in doing things? + 1 pt : Several days, [PHQ-9-2] Feeling down, depressed, or hopeless? + 1 pt : Several days, [PHQ-9-3] Trouble falling or staying asleep or sleeping too much? + 1 pt : Several days, [PHQ-9-4] Feeling tired or having little energy? + 1 pt : Several days, [PHQ-9-5] Poor appetite or overeating? + 0 pt : Not at all, [PHQ-9-6] Feeling bad about yourself-or that you are a failure + 1 pt : Several days, [PHQ-9-7] Trouble concentrating on things such as reading the newspaper + 1 pt : Several days, [PHQ-9-8] Moving or speaking so slowly that other people have noticed. + 0 pt : Not at all, [PHQ-9-9] Thoughts that you would be better off or hurting yourself? + 0 pt : Not at all, and BRANDON If you checked off problems, how difficult is it for you to do your work, take care of things, or get along? Somewhat difficult. [facility]01-17-2024 Progress note* Progress note Date Encounter Last Documented by 08/04/2023 Medical Established Patient Last documented on 08/04/2023; 4:29 PM, Ena Fung CNP; [facility] Active Problems & Conditions - J45.20 - Asthma Mild Intermittent Uncomplicated - I10 - Essential (primary) hypertension - Hypertension - - K21.9 - Gastro-esophageal reflux disease without esophagitis - GERD (gastroesophageal reflux disease) - F41.1 - Generalized Anxiety Disorder - 997.91 - Hypertension - Hypertension - F33.0 - Major Depression Recurrent Mild - K58.2 - Mixed irritable bowel syndrome - Irritable bowel syndrome with both constipation and diarrhea - Z90.710 - Postsurgical State 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 PET CT scan of her whole body. Sister has Stage 4 bone, lung, lymph nodes, and pelvis, nasal cavity cancer. Referred Here Referred by emergency room. Prior encounters. History of Present Illness Mike Sharif is a 47 year old female. - Allergy list reviewed - Reviewed Medications - Medication list reviewed - Date of last menstruation hysterectomy - test - would not like a test Presents with increased anxiety , doesnt feel the buspar is working Current Medication - *CPAP AND SUPPLIES Miscellaneous 0 days, 0 refills - *Captain/Check Airman Miscellaneous (not specified) posture corrector flexible brace , wear during the day / remove at bedtime, 30 days, 0 refills - *NEBULIZER AND SUPPLIES Miscellaneous Use as needed with medications, 30 days, 0 refills - Albuterol Sulfate HFA 108 (90 Base) MCG/ACT Inhalation Aerosol Solution inhale 1-2 puffs by mouth every 4-6 hours as needed for wheezing/ shortness of breath, 30 days, 5 refills - amLODIPine Besylate 2.5 MG Oral Tablet two tablets once dailyDr. Mora, 90 days, 0 refills - Aspirin 81 MG Oral Tablet Delayed Release take 1 tablet by mouth once daily, 0 days, 0 refills - Atorvastatin Calcium 80 MG Oral Tablet take 1 tablet by mouth once daily at bedtime, 30 days, 11 refills - Brilinta 60 MG Oral Tablet one tablet two times dailyDrJeanette Mora, 90 days, 0 refills - Carafate 1 GM Oral Tablet take 1 tablet by mouth 1 hour before meals , four times daily, 30 days, 0 refills - Cyclobenzaprine HCl 10 MG Oral Tablet TAKE 1/2 TO 1 TABLET BY MOUTH EVERY 8 HOURS FOR 30 DAYS NEEDED FOR MUSCLE PAIN / SPASMS, 30 days, 5 refills - Estradiol 1 MG Oral Tablet once dailygyno, 90 days, 0 refills - Fluticasone Propionate 50 MCG/ACT Nasal Suspension inhale two sprays in each nostril once per day, 30 days, 5 refills - Gabapentin 300 MG Oral Capsule take 1 capsule by mouth twice daily, 30 days, 11 refills - Nitroglycerin 0.4 MG Sublingual Tablet Sublingual as directed dr mora, 0 days, 0 refills - Pantoprazole Sodium 40 MG Oral Tablet Delayed Release Take 1 tablet by mouth once daily, 30 days, 5 refills - PARoxetine HCl 40 MG Oral Tablet Take 1 tablet by mouth once daily, 30 days, 5 refills - Symbicort 80-4.5 MCG/ACT Inhalation Aerosol inhale 2 actuations by mouth twice daily , rinse and spit water after each use, 30 days, 5 refills - traZODone HCl 100 MG Oral Tablet take 1 tablet by mouth once daily 1 hour before bedtime, 30 days, 11 refills - Vitamin D (Cholecalciferol) 10 MCG (400 UNIT) Oral Capsule take 1 capsule by mouth once daily, 30 days, 11 refills - Zetia 10 MG Oral Tablet once dailyCardiology, 0 days, 0 refills - ZyrTEC Allergy 10 MG Oral Tablet Take 1 tablet by mouth once daily, 30 days, 5 refills Past Medical/Surgical History Reported: No recent change in medical history and Patient gave verbal consent for telehealth. Recent Events: Treatment response/compliance reports taking meds consistently. Medical: No previous hospitalizations. : Previously 6 time(s) and para having 4 live (s). Not planning to have a baby in the next 12 months. Other: Cardiac catheterization coronary angiography was performed 10/20/21 right Diagnoses: Stenosis of coronary artery stent CVA. Surgical: - Cholecystectomy - Hernia repair 08/20/21 Dr. Sinclair - Hysterectomy 12/02/2018, prior to 12/02/18. Ref: CT Abdomen/Pelvis in Imaging oophorectomy 10/2021 - Back surgery 2 spinal fusions Social History Environmental Exposure: Secondhand cigarette smoke exposure. Behavioral: Not a current tobacco user. Tobacco use: Using electronic cigarettes/vaping. Alcohol: Not using alcohol. Drug Use: Not using drugs denied by patient. Sexual: Not sexually active. Sexual orientation Straight (not lesbian or santos) and gender identity Female. Allergies - Keflex Reaction: rash - -No Environmental Allergies - -No Known Food Allergies - Plavix Family History Father: Brain aneurysm Paternal: Cardiovascular disorder CAD CVA Maternal: Cardiovascular disorder CAD Sororal: Oncologic disorder alveolar rhabdomyosarcoma Review Of Systems Head: No head symptoms. Neck: No neck symptoms. Eyes: No eye symptoms. Otolaryngeal: No ear symptoms, no nasal symptoms, no nose and sinus finding, no throat symptoms, no oral cavity symptoms, and no jaw symptoms. Breasts: No breast symptoms. Cardiovascular: No cardiovascular symptoms. Pulmonary: No pulmonary symptoms. Gastrointestinal: Gastrointestinal symptoms constipation , straining to defecate. Genitourinary: No genitourinary symptoms. Musculoskeletal: No musculoskeletal symptoms. Neurological: No neurological symptoms. Psychological: Anxiety. No depression. Sleep. Skin: Skin symptoms cyst left upper posterior thigh. Physical Findings - Vitals taken 08/04/2023 02:22 pm BP-Sitting L133/87 mmHg BP Cuff SizeRegular Pulse Rate-Wfnygyz42 bpm Ihaajg66 in Hdufxv165 lbs Body Mass Index33.6 kg/m2 Body Surface Area1.9 m2 Oxygen Ssyqgipmyr09 % Vital Signs: - Systolic blood pressure 130 - 139 mmHg. - Diastolic blood pressure 80-89 mmHg. General Appearance: - Awake. - Alert. - Well developed. - Well nourished. - In no acute distress. Head: Appearance: - Head normocephalic. Scar: - No scar on the head. Scalp: - Normal. Skull Tenderness: - No skull tenderness. Crepitus: - Head showed no crepitus. Temporal Arteries: - Normal. Neck: Appearance: - Of the neck was normal. Palpation: - Of the neck revealed no abnormalities. Suppleness: - Neck demonstrated no decrease in suppleness. Maneuvers: - Neck maneuvers elicited no abnormal responses. Weakness: - No neck weakness was seen. Cervical Mass: - No cervical mass was seen. Scar: - No surgical/traumatic scar was seen on the neck. Eyes: General/bilateral: Extraocular Movements: - Normal. Pupils: - PERRLA. - Size of the pupil was normal. - Reactive to light. - Showed normal accommodation. - No abnormal pupil function. External: - Eyelids showed no abnormalities. Sclera: - Normal. Ears: General/bilateral: Outer Ear: - Normal. Tympanic Membrane: - Examined. - Bulging clear. - Tympanic membranes bulging bilaterally. Hearing Exam: - No hearing abnormalities. Right Ear: - Examined. Left Ear: - Examined. Nose: General/bilateral: Discharge: - No nasal discharge. Nasal Malformation: - No nasal malformation. External Deformities: - No external nose deformities. External Mass: - No external nasal mass. Piercings: - Nose was not pierced. Cavity: - Nasal turbinate abnormalities. - Bilateral turbinate bone abnormalities. - Nasal turbinate erythematous. - No nasal cavity abnormalities. Nasal Erythema: - No nasal erythema was noted. Nasal Edema: - No nasal edema was noted. Nasal Bone Tenderness: - No nasal bone tenderness. Sinus Tenderness: - No sinus tenderness. Oral Cavity: - Odor of breath was normal. Lips: - Showed no abnormalities. Frenum Attachment: - Showed no abnormalities. Gums: - Examination showed no abnormalities. Teeth: - Dental no abnormalities. Buccal Mucosa: - Showed no mucosal abnormalities. Tongue: - Examination showed no abnormalities. Salivary Glands: - No salivary calculus was found. - Sublingual glands were not tender. - Sublingual glands were not swollen. - Sublingual glands did not have erythematous overlying mucosa. Palate: - Hard palate was normal. - Not cleft. - Showed no mucosal abnormalities. Pharynx: Nasopharynx: - Normal. Oropharynx: - Abnormal post nasal drip. Hypopharynx: - Normal. Mucosal: - Pharynx had no mucosal abnormalities. Tests Laboratory-based Chemistry: Other Laboratory Tests: Screening for sexually transmitted infections was not performed. Educational Testing: In the Past 4 Weeks, Asthma kept me from getting much done at work/school/work? (4 Pts) A little of the Time, During the past 4 weeks, how often have you had shortness of breath? (4 Pts) Once or twice a week, During the past for 4 weeks, asthma symptoms woke me up at night or earlier than (5 Pts) Not at all, During the past 4 weeks, have used rescue inhaler or nebulizer medication (4 Pts) Once a week, and Asthma control during the past 4 weeks (4 Pts) Well controlled. Assessment - Z68.33 - Body mass index [BMI] 33.0-33.9, adult - J01.90 - Acute sinusitis, unspecified - J45.20 - Mild intermittent asthma, uncomplicated - K59.09 - Other constipation - F41.1 - Generalized anxiety disorder Test Conclusions Asthma Control Test (ACT), adult total score was 21 08/04/2023. Therapy - Patient refused flu vaccine. Discussed benefits of flu vaccine with Patient. Vaccinations - Received dose of Reported: Patient has received the COVID Vaccine Counseling/Education - Wishing to stop using electronic cigarettes/vaping - Discussed nutritional needs teach healthy choices including fruits and vegetables - Patient education about a proper diet - Not requesting contraception - Discussed concerns about exercise: promote physical activity Plan StartCited- Acute sinusitis, unspecified predniSONE 20 MG tablet take 1 tablet by mouth twice daily, 5 days, 0 refills EndCited StartCited- Generalized anxiety disorder hydrOXYzine Pamoate 25 MG capsule take 1 capsule by mouth every 6 hours as needed for anxiety / may cuase drowsiness, 30 days, 5 refills EndCited StartCited- Localized swelling, mass and lump, left upper limb Referrals: General Surgery Instructions: Please make a referral to: EndCited StartCited- Other constipation Colace 100 MG capsule take 1 capsule by mouth once daily at bedtime, 30 days, 11 refills EndCited Make sure taking allergy meds daily , drink at least 68 ounces of water daily and keep air in home humified. Advance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 and assessment completed as charted. Denies any current chestpain or shortness of breath at this time. Call light is within reach. Will continue to monitor. documented in this [facility] Work Phone: [phone]) 501-212901-27-2022 History of Present illness Narrative* Rajan Messina RN - 08/14/2021 11:00 AM EST Patient instructed on the pre-operative, intra-operative, and post-operative process. Patient instructed on NPO status. Medication instructions and pre operative instruction sheet reviewed with the patient. CHG skin prep instructions reviewed with patient. * Rajan Messina RN - 08/14/2021 11:00 AM EST [facility] Preadmission Testing Name: Mike Sharif : 1975 Patient (home) [phone] (work) Procedure Lap. Bilateral oopherectomy, possible laparotomy Date of Procedure: 08/20/21 Surgeon: Geoff Chu MD Ht: 5' 4 (162.6 cm) Wt: 189 lb 6.4 oz (85.9 kg) Wt method: Actual Allergies: Allergies Allergen Reactions Cephalexin Cephalosporins Hives Peanut allergy: No Latex Allergy Screening Tool Have you ever had a reaction to or been told by a physician that you have an allergy to latex or natural rubber?: No Vitals: 08/14/21 1059 BP: 120/63 Pulse: 79 Resp: 18 Temp: 97.4 F (36.3 C) SpO2: 97% No LMP recorded. Patient has had a hysterectomy. Do you take blood thinners? [x] Yes [] No Instructed to stop blood thinners prior to procedure? [x] Yes [] No [] N/A Do you have sleep apnea? [x] Yes [] No Instructed to bring CPAP machine? [] Yes [] No [x] N/A Do you have acid reflux ? [x] Yes [] No Do you have hiatal hernia? [] Yes [x] No Do you ever experience motion sickness? [x] Yes [] No Have you had a respiratory infection or sore throat in last 4 weeks before surgery? [] Yes [x] No Do you have poorly controlled asthma or COPD? [] Yes [x] No Do you have a history of angina in the last month or symptomatic arrhythmia? [] Yes [x] No Do you have significant central nervous system disease? [] Yes [x] No Have you had an EKG, labs, or chest xray in last 12 months? If yes provide copies to anesthesia [x] Yes [] No [x] Lab [] EKG [] CXR Have you had a stress test? [x] Yes [] No When/where:[place] Was it normal? [] Yes [x] No Do you or your family have a history of Malignant Hyperthermia? [] Yes [x] No Patient instructed on: [x] NPO Status [x] Meds to Take Day of Surgery [x] Ride Home [x]No Jewelry/Contact Lenses/Dentures day of surgery [x] Chlorhexidene PAT Call/Visit Questions Person Interviewed: patient Relationship to Patient: self Surgery Time Verified: Yes Surgery Location Verified: Yes Medical History Reviewed: Yes NPO Status Reinforced: Yes Ride and Caregiver Arranged: Yes Ride Caregiver Provider: Ronen Sirena Pre-AdmissionTesting Checklist Patient has been to this health system before?: Yes Does patient refuse blood?: No Healthcare Directive: No, patient does not have an advance directive for healthcare treatment Patient can read and write?: Yes History given by: Patient Providing self care at home?: Yes Discharge transport (for same day patients): Family Patient instructed on the pre-operative, intra-operative, and post-operative process? Yes Medication instructions reviewed with patient? Yes Pre operative instruction sheet reviewed and given to patient in PAT? Yes documented in this [facility] Phone: 1(131) 513-755212-21-2021 Note [facility] Vascular Upper Extremities Veins Procedure Patient Name ADRIÁN Date of Study 07/08/2021 MIKE N Date of 1975 Gender Female Age 45 year(s) Race Room Number 09 Corporate ID [id number] # Patient Acct [id number] # MR # [id number] Manufacturing Applications Engineer Maggie Bowman Kelly, RVT Interpreting Physician Jarred Gómez MD Referring Referring Physician Nurse Practitioner Additional Comments Results faxed to ER 07/08/2021 @[id number]. Procedure Type of Study: Veins: Upper Extremities Veins, Venous Scan Upper Right. Patient Status:ER. Technical Quality:Adequate visualization. Comments:INDICATIONS: S/P cath, rule out DVT Simultaneous real time imaging utilizing B-Mode, color doppler and spectral waveform analysis was performed on the right upper extremity for venous examination of the deep and superficial systems. Conclusions Summary No evidence of superficial or deep venous thrombosis in the right upper extremity. Signature Allergies - Allergy:Cephalosporins(Drug). Velocities are measured in cm/s ; Diameters are measured in cm Right UE Vein Measurements 2D Measurements + + + + + !Location !Visualized!Compressibility!Thrombosis! + + + + + !Prox IJV !Yes !Yes !None ! + + + + + !Dist IJV !Yes !Yes !None ! + + + + + !Prox SCV !Yes !Yes !None ! + + + + + !Dist SCV !Yes !Yes !None ! + + + + + !Prox Axillary !Yes !Yes !None ! + + + + + !Dist Axillary !Yes !Yes !None ! + + + + + !Prox Brachial !Yes !Yes !None ! + + + + + !Dist Brachial !Yes !Yes !None ! + + + + + !Prox Radial !Yes !Yes !None ! + + + + + !Dist Radial !Yes !Yes !None ! + + + + + !Prox Ulnar !Yes !Yes !None ! + + + + + !Dist Ulnar !Yes !Yes !None ! + + + + + !Basilic at UA !Yes !Yes !None ! + + + + + !Basilic at AF !Yes !Yes !None ! + + + + + !Basilic at LA !Yes !Yes !None ! + + + + + !Cephalic at UA !Yes !Yes !None ! + + + + + !Cephalic at AF !Yes !Yes !None ! + + + + + !Cephalic at LA !Yes !Yes !None ! + + + + + Doppler Measurements +-------- (more content not included)...[id number] History of Present illness Narrative* Teri Narvaez RN - 06/19/2021 5:35 PM EST Discharge Criteria Inpatients must meet Criteria 1 through 7. All other patients are either YES or N/A. If a NO is chosen then Anesthesia or Surgeon must be notified. 1. Minimum 30 minutes after last dose of sedative medication, minimum 120 minutes after last dose of reversal agent. Yes 2. Systolic BP stable within 20 mmHg for 30 minutes & systolic BP between 90 & 180 or within 10 mmHg of baseline. Yes 3. Pulse between 60 and 100 or within 10 bpm of baseline. Yes 4. Spontaneous respiratory rate >/= 10 per minute. Yes 5. SaO2 >/= 95 or >/= baseline. Yes 6. Able to cough and swallow or return to baseline function. Yes 7. Alert and oriented or return to baseline mental status. Yes 8. Demonstrates controlled, coordinated movements, ambulates with steady gait, or return to baseline activity function. Yes 9. Minimal or no pain or nausea, or at a level tolerable and acceptable to patient. Yes 10. Takes and retains oral fluids as allowed. Yes 11. Procedural / perioperative site stable. Minimal or no bleeding. Yes 12. If GI endoscopy procedure, minimal or no abdominal distention or passing flatus. N/A 13. Written discharge instructions and emergency telephone number provided. Yes 14. Accompanied by a responsible adult. Yes * Teri Narvaez RN - 06/19/2021 5:31 PM EST Head Turning Machine Operator reviewed discharge instructions with patient and patient's son. Both verbalized understanding. * Teri Narvaez RN - 06/19/2021 3:47 PM EST Pressure dressing loosened at this time. No signs of bleeding or bruising noted. * Celina Moran RN - 06/19/2021 3:09 PM EST Patient returned to pre/post area. Alert and oriented, denies pain. Right radial palpable distal topuncture site. Pressure dressing in place, no bleeding/bruising/swelling noted. Will continue to monitor. documented in this [facility] Work Phone: 1([phone]) 327-454412-02-2021 Hospital Discharge instructions* Instructions* Teri Narvaez RN - 06/19/2021 Discharge Instructions for Cardiac Catheterization A cardiac catheterization is a diagnostic test used to evaluate the health of the heart and its blood vessels. The test is done with a thin catheter carefully threaded into your heart from a leg or arm artery. Most likely, you will be allowed to go home the same day as the procedure. Steps to Take at Home: Pain- apply ice to site 15-20 minutes every hour for the first 2 days. Showering is okay 24 hours after procedure. No soaking in a pool, hot tub, bath tub, or standing water for one week. Bleeding (outward or under the skin-hematoma)- apply firm pressure for 10-15 minutes or until the bleeding stops, then call your doctor. If unable to get bleeding stopped, call 911. Kidney damage- Call if you urinate less than normal, have swelling or feel puffy, and/or gain 2 or more pounds over night in the first week. If procedure was in ARM: You were instructed to keep wrist straight and still for two hours after the procedure. The arm andhand may now be used for normal daily activities except, avoid using the heal of hand while gettingup and down from furniture for the first few days. Keep affected arm elevated, hand higher than elbow, while pressure dressing in place to decrease swelling. Pressure device: Remove in 4 hours as follows: TIME: 9:15 PM Remove 1 piece of tape at a time, waiting 15 -20 minutes between layers to monitor for bleeding. If dressing sticks, place wrist under cool running water to help loosen gauze from site then pat site dry. If hand feels numb, tingly, and/or cold- loosen first 1-2 layers of tape if dressing still in place. If no relief noticed, remove pressure dressing as per above instructions. Seek medical help ifno relief or if dressing already off. Wash area with soap and water daily while leaving it open to air, no bandaids or ointment. Diet Drink plenty of fluids after the test to flush the x-ray dye from your system. Return to your normal diet. No alcoholic beverages for 24 hours after the procedure. Physical Activity The sedative will make you sleepy. Rest until the effects have worn off. Nausea and vomiting from the sedative is normal and usually does not last long. Ask your doctor when you will be able to return to work. Do not drive, operate machinery, do anything that requires attention to detail, or sign important papers for at least 24 hours or until your doctor says it is safe. Avoid heavy lifting, physically demanding activities, and sexual activity for 2- 3 days. Lift nothing over 10 pounds (a gallon of milk is 8 pounds). Do not sit for long periods of time. Try to change positions frequently. Medications Resume taking your normal medicines as advised. Use acetaminophen (Tylenol) for pain relief. (Avoid anti-inflammatory drugs such as- ibuprofen (Advil, Motrin), naproxen sodium (Aleve), Excedrin for a few days) If you had to stop taking these medications before the procedure, ask your doctor when you can resume taking them: Anti-inflammatory drugs Blood thinners, such as warfarin (Coumadin) If you are taking medicines, follow these general guidelines: Take your medicine as directed. Do not change the amount or the schedule. Do not stop taking them without talking to your doctor. Do not share them. Know the side effects and report any to your doctor. Some drugs can be dangerous when mixed. Talk to a doctor or pharmacist if you are taking more than one drug. This includes [id number] medicine and herb or dietary supplements. Plan ahead for refills so you don't run out. Follow-up The test results are available right after the procedure. At that point, the doctor will discuss the findings and suggest appropriate treatment options. In some cases, the results can indicate an immediate need for surgery. Schedule a follow-up appointment as directed by your doctor. Call Your Doctor If Any of the Following Occurs Signs of infection- including fever and chills Redness, swelling, increasing pain, feels warm to touch, red streak forming from site, or any discharge from the procedure site. Call 911 If Any of the Following Occurs Drooping facial muscles Changes in vision or speech Difficulty walking or using your limbs Change in sensation, including numbness, feeling cold, or change in color Extreme sweating, nausea or vomiting Dizziness or lightheadedness Chest pain Rapid, irregular heartbeat Palpitations Cough, shortness of breath, or difficulty breathing Weakness or fainting If you think you have an emergency, CALL 911 documented in this [facility] Phone: 1(483) 467-646512-02-2021 Reason for visit Narrative* Auth/Cert Specialty Diagnoses / Procedures Referred By Stefano ardon Referred To Contact [facility] [employer] [address] [place] [address] [employer] [id number] [place] [address] Referral ID Status Reason Start Date Expiration Date Visits Re quested Visits Authorized [id number] 1 1 [facility] Phone: 1(722) 636-492211-04-2021 Hospital Discharge instructions* Instructions* Ruiz Romero MD - 05/22/2021 Check in with your primary doctor about getting your urine rechecked in a week * Attachments The following attachments cannot be sent through Care Everywhere. * Back Pain (Spanish) documented [facility] Phone: [phone]) 384-990810-21-2021 Evaluation note Includes: Assessments for all patient encounters Findings Encounter Date Anosmia Telemedicine Establi sted Patient with Ena Fung [facility] 05/08/2021 Assessment of exposure to COVID-19 Telem edicine Establisted Patient with Ena Fung [facility] 05/08/2021 Acute sinusitis Telemedicine Establi sted Patient with Veronica Renteria [facility] 03/20/2021 Assessment of body mass inde x [Body mass index [BMI] 31.0-31.9, adult] Telemedicine Establisted Patient with Veronica Renteria [facility] 03/20/2021 Assessment of exposure to COVID-19 Telem edicine Establisted Patient with Veronica Renteria [facility] 03/20/2021 Arthralgia of ankle / foot Medical Estab lished Patient with Ena Fung [facility] 02/05/2021 Obesity due to excess calories Medical E stablished Patient with Ena Fung [facility] 02/05/2021 Z68.31 - Body mass index [BM I] 31.0-31.9, adult Medical Established Patient with Ena Fung [facility] 02/05/2021 Hypokalemia Medical Established Patient with Ena Fung [facility] 01/08/2021 Obesity due to excess calories Medical E stablished Patient with Ena 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 01/08/2021 Z68.32 - Body mass index [BM I] 32.0-32.9, adult Medical Established Patient with Ena 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 01/08/2021 Anxiety disorder NOS Established Ashley ent with Oliva Short [facility] 09/04/2020 Depression Established Patie nt with Oliva Short [facility] 09/04/2020 Diabetes Risk Test Score was three score 09/04/2020 Medical Established Patient with Ena 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 09/04/2020 Obesity due to excess calories Medical E stablished Patient with Ena 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 09/04/2020 Z68.34 - Body mass index [BM I] 34.0-34.9, adult Medical Established Patient with Ena 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 09/04/2020 Exposure to a viral disease Telemedicine Establisted Patient with Tao Reece [facility] 06/04/2020 Exposure to biological agent suspected Telemedicine Establisted Patient with Tao Reece [facility] 06/04/2020 Body mass index Telemedicine Establi sted Patient with Ena Fung [facility] 05/02/2020 Exposure to a viral disease Telemedicine Establisted Patient with Ena Fung [facility] 05/02/2020 Obesity due to excess calories Telemedic ine Establisted Patient with Ena Fung [facility] 05/02/2020 Anxiety disorder NOS Telebehavioral H ealth with Oliva Short [facility] 10/20/2019 Depressive disorder Telebehavioral He alth with Oliva Short [facility] 10/20/2019 [facility] Work Phone: 1(233) 468-880409-02-2021 Evaluation note Includes: Assessments for all patient encounters Findings Encounter Date Acute sinusitis Telemedicine Establi sted Patient with Veronica Moellerer [employer] 03/20/2021 Assessment of body mass inde x [Body mass index [BMI] 31.0-31.9, adult] Telemedicine Establisted Patient with Vernoica Moellerer [employer] 03/20/2021 Assessment of exposure to COVID-19 Telem edicine Establisted Patient with Veronica Moellerer [employer] 03/20/2021 Arthralgia of ankle / foot Medical Estab lished Patient with Ena 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 02/05/2021 Obesity due to excess calories Medical E stablished Patient with Ena 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 02/05/2021 Z68.31 - Body mass index [BM I] 31.0-31.9, adult Medical Established Patient with Ena 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 02/05/2021 Hypokalemia Medical Established Patient with Ena Fung [employer] 01/08/2021 Obesity due to excess calories Medical E stablished Patient with Ena Fung [employer] 01/08/2021 Z68.32 - Body mass index [BM I] 32.0-32.9, adult Medical Established Patient with Ena Fung [employer] 01/08/2021 Anxiety disorder NOS Established Ashley ent with Oliva Short [facility] 09/04/2020 Depression Established Patie nt with Oliva Short [facility] 09/04/2020 Diabetes Risk Test Score was three score 09/04/2020 Medical Established Patient with Ena Fung [facility] 09/04/2020 Obesity due to excess calories Medical E stablished Patient with Ena Fung [facility] 09/04/2020 Z68.34 - Body mass index [BM I] 34.0-34.9, adult Medical Established Patient with Ena Fung [employer] 09/04/2020 Exposure to a viral disease Telemedicine Establisted Patient with Tao Reece [facility] 06/04/2020 Exposure to biological agent suspected Telemedicine Establisted Patient with Tao Reece [facility] 06/04/2020 Body mass index Telemedicine Establi sted Patient with Ena Fung [facility] 05/02/2020 Exposure to a viral disease Telemedicine Establisted Patient with Ena Fung [facility] 05/02/2020 Obesity due to excess calories Telemedic ine Establisted Patient with Ena Fung [facility] 05/02/2020 Anxiety disorder NOS Telebehavioral H ealth with Oliva Short [facility] 10/20/2019 Depressive disorder Telebehavioral He alth with Oliva Short [facility] 10/20/2019 [facility] Work Phone: 1([phone]) [phone] Evaluation note Includes: Assessments for all patient encounters Findings Encounter Date Arthralgia of ankle / foot Medical Estab lished Patient with Ena Fung [employer] 02/05/2021 Obesity due to excess calories Medical E stablished Patient with Ena Fung [employer] 02/05/2021 Z68.31 - Body mass index [BM I] 31.0-31.9, adult Medical Established Patient with Ena Fung [employer] 02/05/2021 Hypokalemia Medical Established Patient with Ena Fung [employer] 01/08/2021 Obesity due to excess calories Medical E stablished Patient with Ena Fung SUPERINTENDENT PRESSURE 01/08/2021 Z68.32 - Body mass index [BM I] 32.0-32.9, adult Medical Established Patient with Ena Fung SUPERINTENDENT PRESSURE 01/08/2021 Anxiety disorder NOS Established Ashley ent with Oliva Short LISWS 09/04/2020 Depression Established Patie nt with Oliva Short LISWS 09/04/2020 Diabetes Risk Test Score was three score 09/04/2020 Medical Established Patient with Ena Fung SUPERINTENDENT PRESSURE 09/04/2020 Obesity due to excess calories Medical E stablished Patient with Enajosefa Fung SUPERINTENDENT PRESSURE 09/04/2020 Z68.34 - Body mass index [BM I] 34.0-34.9, adult Medical Established Patient with Ena Fung SUPERINTENDENT PRESSURE 09/04/2020 Exposure to a viral disease Telemedicine Establisted Patient with Tao Reece [facility] 06/04/2020 Exposure to biological agent suspected Telemedicine Establisted Patient with Tao Reece [facility] 06/04/2020 Body mass index Telemedicine Establi sted Patient with Ena Fung [facility] 05/02/2020 Exposure to a viral disease Telemedicine Establisted Patient with Ena Fung [facility] 05/02/2020 Obesity due to excess calories Telemedic ine Establisted Patient with Ena Fung [facility] 05/02/2020 Anxiety disorder NOS Telebehavioral H ealth with Oliva Short LISWS 10/20/2019 Depressive disorder Telebehavioral He alth with Oliva Short LISWS 10/20/2019 [facility] Work Phone: 1(722) 527-498106-23-2021 Evaluation note Includes: Assessments for all patient encounters Findings Encounter Date Hypokalemia Medical Established Patient with Ena Fung SUPERINTENDENT PRESSURE 01/08/2021 Obesity due to excess calories Medical E stablished Patient with Ena Fung SUPERINTENDENT PRESSURE 01/08/2021 Z68.32 - Body mass index [BM I] 32.0-32.9, adult Medical Established Patient with Ena Fung [facility] 01/08/2021 Anxiety disorder NOS BH Established Ashley ent with Oliva Short LISWS 09/04/2020 Depression Established Patie nt with Oliva Short LISWS 09/04/2020 Diabetes Risk Test Score was three score 09/04/2020 Medical Established Patient with Ena Fung [facility] 09/04/2020 Obesity due to excess calories Medical E stablished Patient with Ena Fung [facility] 09/04/2020 Z68.34 - Body mass index [BM I] 34.0-34.9, adult Medical Established Patient with Ena Fung [facility] 09/04/2020 Exposure to a viral disease Telemedicine Establisted Patient with Tao Reece [facility] 06/04/2020 Exposure to biological agent suspected Telemedicine Establisted Patient with Tao Reece [facility] 06/04/2020 Body mass index Telemedicine Establi sted Patient with Ena Fung [facility] 05/02/2020 Exposure to a viral disease Telemedicine Establisted Patient with Ena Fung [facility] 05/02/2020 Obesity due to excess calories Telemedic ine Establisted Patient with Ena Fung [facility] 05/02/2020 Anxiety disorder NOS Telebehavioral H ealth with Oliva Short LISWS 10/20/2019 Depressive disorder BH Telebehavioral He alth with Oliva Short LISWS 10/20/2019 [facility] Work Phone: 1(549) 825-395506-18-2021 History of Present illness Narrative* Graciela Tovar RN - 01/03/2021 5:12 PM EDT Discharge instructions reviewed with patient at this time. IV removed. Patient dressed self and collected belongings with help of family members. Patient ambulatory to main entrance with instructionsand other remaining belongings. Accompanied by a staff member. * Graciela Tovar RN - 01/03/2021 3:14 PM EDT Patient declines eating lunch or dinner here at the hospital. Patient is anticipating discharge as told by Dr. Zavala. Vitals obtained and are stable. Patient was provided a Pepsi per her request. * Graciela Tovar RN - 01/03/2021 2:47 PM EDT Patient return back to room 326 at this time. * Audrey Matamoros RN - 01/03/2021 2:43 PM EDT Patient taken to [facility] per w/c. Family in room upon arrival and patient taken directly to restroom per her request. Patient steady on feet. Report given to PAOLA Muñoz. * Audrey Matamoros RN - 01/03/2021 2:38 PM EDT Discharge Criteria Inpatients must meet Criteria 1 through 7. All other patients are either YES or N/A. If a NO is chosen then Anesthesia or Surgeon must be notified. 1. Minimum 30 minutes after last dose of sedative medication, minimum 120 minutes after last dose of reversal agent. Yes 2. Systolic BP stable within 20 mmHg for 30 minutes & systolic BP between 90 & 180 or within 10 mmHg of baseline. Yes 3. Pulse between 60 and 100 or within 10 bpm of baseline. Yes 4. Spontaneous respiratory rate >/= 10 per minute. Yes 5. SaO2 >/= 95 or >/= baseline. Yes 6. Able to cough and swallow or return to baseline function. Yes 7. Alert and oriented or return to baseline mental status. Yes 8. Demonstrates controlled, coordinated movements, ambulates with steady gait, or return to baseline activity function. N/A 9. Minimal or no pain or nausea, or at a level tolerable and acceptable to patient. N/A 10. Takes and retains oral fluids as allowed. N/A 11. Procedural / perioperative site stable. Minimal or no bleeding. N/A 12. If GI endoscopy procedure, minimal or no abdominal distention or passing flatus. N/A 13. Written discharge instructions and emergency telephone number provided. N/A 14. Accompanied by a responsible adult. N/A * Audrey Matamoros RN - 01/03/2021 2:20 PM EDT Patient given water and applesauce at this time. * Graciela Tovar RN - 01/03/2021 11:35 AM EDT Patient being taken down to surgery at this time via wheelchair. * Mike Zafar RN - 01/03/2021 6:32 AM EDT Passed on on in Nursing report need for possible prn potassium protocol or fluids with potassium due to patient diagnosis of hypokalemia * Mike Zafar RN - 01/02/2021 11:24 PM EDT Patient medicated with tylenol at this time for pain * Mike Zafar RN - 01/02/2021 10:57 PM EDT Patient asking for something else besides the tylenol or bentyl for pain. Patient also goes NPO at midnight. Phone call made to Dr Blanc at this time and per Dr Blanc he will not order anything additional forpain control, nurse did inform him of the NPO status at midnight Nurse will update patient * Mike Zafar RN - 01/02/2021 7:46 PM EDT Spoke with Dr Blanc in regards to patient abdomen pain and cramping, new orders obtained * Mike Zafar RN - 01/02/2021 7:45 PM EDT Patient assessment and vitals completed, see charting on all Patient to be medicated, see MAR * Andria Fontana LSW - 01/02/2021 2:09 PM EDT Discussed discharge plans with the patient. Patient is a 45 year old female here with Hypokalemia. She is alert and oriented. Patient is single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 meditation. [facility] discussed potential benefit in counseling and provided resource list. ~P discussed healthy lifestyle changes to implement Last Documented On 3 3:16PM ; [facility] Discussed nutritional needs teach healthy choices including fruits and vegetables Last Documented On 3 11:08AM ; [facility] Patient education about a pr oper diet Last Documented On 3 11:08AM ; [facility] Discussed concerns about exe rcise : promote physical activity Last Documented On 3 11:08AM ; [facility] Discussed nutritional needs teach healthy choices including fruits and vegetables Last Documented On 2 11:44AM ; [facility] Patient education about a pr oper diet Last Documented On 2 11:44AM ; [facility] Discussed concerns about exe rcise : promote physical activity Last Documented On 2 11:44AM ; [facility] Problems sleeping Last Documented On 2 9:03AM ; [facility] Discussed nutritional needs teach healthy choices including fruits and vegetables Last Documented On 2 8:19AM ; [facility] Patient education about a pr oper diet Last Documented On 2 8:19AM ; [facility] Discussed concerns about exe rcise : promote physical activity Last Documented On 2 8:19AM ; [facility] Discussed nutritional needs teach healthy choices including fruits and vegetables Last Documented On 2 11:56AM ; [facility] Patient education about a pr oper diet Last Documented On 2 11:56AM ; [facility] Discussed concerns about exe rcise : promote physical activity Last Documented On 2 11:56AM ; [facility] Discussed nutritional needs teach healthy choices including fruits and vegetables Last Documented On 2 12:03PM ; [facility] Patient education about a pr oper diet Last Documented On 2 12:03PM ; [facility] Discussed concerns about exe rcise : promote physical activity Last Documented On 2 12:03PM ; [facility] Discussed current self-care methods/coping skills. ~Validated and normalized pt's feelings while assisting patient process recent events. ~Encouraged ongoing counseling. ~Discussed lifestyle changes to address chronic illness. ~Supported patient's personal health goals Last Documented On 2 9:32PM ; [facility] Discussed nutritional needs teach healthy choices including fruits and vegetables Last Documented On 2 2:12PM ; [facility] Patient education about a pr oper diet Last Documented On 2 2:12PM ; [facility] Discussed concerns about exe rcise : promote physical activity Last Documented On 2 2:12PM ; [facility] Discussed nutritional needs teach healthy choices including fruits and vegetables Last Documented On 1 4:05PM ; [facility] Patient education about a pr oper diet Last Documented On 1 4:05PM ; [facility] Discussed concerns about exe rcise : promote physical activity Last Documented On 1 4:05PM ; [facility] Discussed nutritional needs teach healthy choices including fruits and vegetables Last Documented On 1 7:23PM ; [facility] Patient education about a pr oper diet Last Documented On 1 7:23PM ; [facility] Patient education about a pr oper diet Last Documented On 1 7:45PM ; [facility] Patient education about meal planning Last Documented On 1 7:45PM ; [facility] Education about changing eat ing habits Last Documented On 1 7:45PM ; [facility] Patient education about high fiber diet Last Documented On 1 7:45PM ; [facility] Patient education about low fat diet Last Documented On 1 7:45PM ; [facility] Patient education about low cholesterol diet Last Documented On 1 7:45PM ; [facility] Patient education about low carbohydrate diet Last Documented On 1 7:45PM ; [facility] Discussed concerns about exe rcise : promote physical activity Last Documented On 1 7:23PM ; [facility] Discussed nutritional needs teach healthy choices including fruits and vegetables Last Documented On 1 4:54PM ; [facility] Patient education about a pr oper diet Last Documented On 1 4:54PM ; [facility] Patient education about a pr oper diet Last Documented On 1 5:25PM ; [facility] Patient education about meal planning Last Documented On 1 5:25PM ; [facility] Education about changing eat ing habits Last Documented On 1 5:25PM ; [facility] Patient education about high fiber diet Last Documented On 1 5:25PM ; [facility] Patient education about low fat diet Last Documented On 1 5:25PM ; [facility] Patient education about low cholesterol diet Last Documented On 1 5:25PM ; [facility] Patient education about low carbohydrate diet Last Documented On 1 5:25PM ; [facility] Patient education about high protein diet Last Documented On 1 5:25PM ; [facility] Discussed concerns about exe rcise : promote physical activity Last Documented On 1 4:54PM ; [facility] provided active listenin g, support and helped patient process through current symptoms and stressors related to family conflict. P/LAY UP OPERATOR discussed resources for housing and supports with patient. ~P discussed potential benefit of counseling and supports. Patient is willing to reconsider meeting with a provider at another agency than she has in the past as she does not want all of the same services Last Documented On 1 2:40PM ; [facility] Discussed nutritional needs teach healthy choices including fruits and vegetables Last Documented On 1 3:21PM ; [facility] Patient education about a pr oper diet Last Documented On 1 3:21PM ; [facility] Patient education about a pr oper diet Last Documented On 1 4:08PM ; [facility] Patient education about meal planning Last Documented On 1 4:08PM ; [facility] Education about changing eat ing habits Last Documented On 1 4:08PM ; [facility] Patient education about high fiber diet Last Documented On 1 4:08PM ; [facility] Patient education about low fat diet Last Documented On 1 4:08PM ; [facility] Patient education about low cholesterol diet Last Documented On 1 4:08PM ; [facility] Patient education about low carbohydrate diet Last Documented On 1 4:08PM ; [facility] Patient education about high protein diet Last Documented On 1 4:08PM ; [facility] Discussed concerns about exe rcise : promote physical activity Last Documented On 1 3:21PM ; [facility] Patient education about a pr oper diet Last Documented On 0 1:48PM ; [facility] Patient education about meal planning Last Documented On 0 1:48PM ; [facility] Education about changing eat ing habits Last Documented On 0 1:48PM ; [facility] Patient education about high fiber diet Last Documented On 0 1:48PM ; [facility] Patient education about low fat diet Last Documented On 0 1:48PM ; [facility] Patient education about low cholesterol diet Last Documented On 0 1:48PM ; [facility] Patient education about low carbohydrate diet Last Documented On 0 1:48PM ; [facility] Patient education about high protein diet Last Documented On 0 1:48PM ; [facility] offered active and suppo rtive listening, normalized emotions and feelings, processed current stressors and explored coping and stress reducing skills. ~P attempted to discuss sleep hygiene strategies with patient including meditation, reducing caffeine use, increaing physical activity during the day as tolerated, and engaging in calming activities. Patient states that she has tried many things in the past and nothing has been sucessful. ~ Last Documented On 0 8:21AM ; [facility] Work Phone: Instructions Includes: Instructions for all patient encounters Education and Decision Aids were provided during visit for: Discussed nutritional needs teach healthy choices including fruits and vegetables Last Documented On 3 2:01PM ; [facility] Patient education about a pr oper diet Last Documented On 3 2:01PM ; [facility] Discussed concerns about exe rcise : promote physical activity Last Documented On 3 2:01PM ; [facility] Discussed nutritional needs teach healthy choices including fruits and vegetables Last Documented On 3 10:41AM ; [facility] Patient education about a pr oper diet Last Documented On 3 10:41AM ; [facility] Discussed concerns about exe rcise : promote physical activity Last Documented On 3 10:41AM ; [facility] offered active and suppo rtive listening, normalized emotions and feelings, processed current stressors and explored coping and stress reducing skills. ~[facility] discussed coping skills to manage increased anxiety such as breathing techniques, mindfulness and meditation. [facility] discussed potential benefit in counseling and provided resource list. ~[facility] discussed healthy lifestyle changes to implement Last Documented On 3 3:16PM ; [facility] Discussed nutritional needs teach healthy choices including fruits and vegetables Last Documented On 3 11:08AM ; [facility] Patient education about a pr oper diet Last Documented On 3 11:08AM ; [facility] Discussed concerns about exe rcise : promote physical activity Last Documented On 3 11:08AM ; [facility] Discussed nutritional needs teach healthy choices including fruits and vegetables Last Documented On 2 11:44AM ; [facility] Patient education about a pr oper diet Last Documented On 2 11:44AM ; [facility] Discussed concerns about exe rcise : promote physical activity Last Documented On 2 11:44AM ; [facility] Problems sleeping Last Documented On 2 9:03AM ; [facility] Discussed nutritional needs teach healthy choices including fruits and vegetables Last Documented On 2 8:19AM ; [facility] Patient education about a pr oper diet Last Documented On 2 8:19AM ; [facility] Discussed concerns about exe rcise : promote physical activity Last Documented On 2 8:19AM ; [facility] Discussed nutritional needs teach healthy choices including fruits and vegetables Last Documented On 2 11:56AM ; [facility] Patient education about a pr oper diet Last Documented On 2 11:56AM ; [facility] Discussed concerns about exe rcise : promote physical activity Last Documented On 2 11:56AM ; [facility] Discussed nutritional needs teach healthy choices including fruits and vegetables Last Documented On 2 12:03PM ; [facility] Patient education about a pr oper diet Last Documented On 2 12:03PM ; [facility] Discussed concerns about exe rcise : promote physical activity Last Documented On 2 12:03PM ; [facility] Discussed current self-care methods/coping skills. ~Validated and normalized pt's feelings while assisting patient process recent events. ~Encouraged ongoing counseling. ~Discussed lifestyle changes to address chronic illness. ~Supported patient's personal health goals Last Documented On 2 9:32PM ; [facility] Discussed nutritional needs teach healthy choices including fruits and vegetables Last Documented On 2 2:12PM ; [facility] Patient education about a pr oper diet Last Documented On 2 2:12PM ; [facility] Discussed concerns about exe rcise : promote physical activity Last Documented On 2 2:12PM ; [facility] Discussed nutritional needs teach healthy choices including fruits and vegetables Last Documented On 1 4:05PM ; [facility] Patient education about a pr oper diet Last Documented On 1 4:05PM ; [facility] Discussed concerns about exe rcise : promote physical activity Last Documented On 1 4:05PM ; [facility] Discussed nutritional needs teach healthy choices including fruits and vegetables Last Documented On 1 7:23PM ; [facility] Patient education about a pr oper diet Last Documented On 1 7:23PM ; [facility] Patient education about a pr oper diet Last Documented On 1 7:45PM ; [facility] Patient education about meal planning Last Documented On 7:45PM ; [facility] Education about changing eat ing habits Last Documented On 1 7:45PM ; [facility] Patient education about high fiber diet Last Documented On 1 7:45PM ; [facility] Patient education about low fat diet Last Documented On 7:45PM ; [facility] Patient education about low cholesterol diet Last Documented On 7:45PM ; [facility] Patient education about low carbohydrate diet Last Documented On 7:45PM ; [facility] Discussed concerns about exe rcise : promote physical activity Last Documented On 1 7:23PM ; [facility] Discussed nutritional needs teach healthy choices including fruits and vegetables Last Documented On 1 4:54PM ; [facility] Patient education about a pr oper diet Last Documented On 1 4:54PM ; [facility] Patient education about a pr oper diet Last Documented On 1 5:25PM ; [facility] Patient education about meal planning Last Documented On 1 5:25PM ; [facility] Education about changing eat ing habits Last Documented On 1 5:25PM ; [facility] Patient education about high fiber diet Last Documented On 1 5:25PM ; [facility] Patient education about low fat diet Last Documented On 1 5:25PM ; [facility] Patient education about low cholesterol diet Last Documented On 1 5:25PM ; [facility] Patient education about low carbohydrate diet Last Documented On 1 5:25PM ; [facility] Patient education about high protein diet Last Documented On 1 5:25PM ; [facility] Discussed concerns about exe rcise : promote physical activity Last Documented On 1 4:54PM ; [facility] provided active listenin g, support and helped patient process through current symptoms and stressors related to family conflict. [facility] discussed resources for housing and supports with patient. ~[facility] discussed potential benefit of counseling and supports. Patient is willing to reconsider meeting with a provider at another agency than she has in the past as she does not want all of the same services Last Documented On 1 2:40PM ; [facility] Discussed nutritional needs teach healthy choices including fruits and vegetables Last Documented On 1 3:21PM ; [facility] Patient education about a pr oper diet Last Documented On 1 3:21PM ; [facility] Patient education about a pr oper diet Last Documented On 1 4:08PM ; [facility] Patient education about meal planning Last Documented On 1 4:08PM ; [facility] Education about changing eat ing habits Last Documented On 1 4:08PM ; [facility] Patient education about high fiber diet Last Documented On 1 4:08PM ; [facility] Patient education about low fat diet Last Documented On 1 4:08PM ; [facility] Patient education about low cholesterol diet Last Documented On 1 4:08PM ; [facility] Patient education about low carbohydrate diet Last Documented On 1 4:08PM ; [facility] Patient education about high protein diet Last Documented On 1 4:08PM ; [facility] Discussed concerns about exe rcise : promote physical activity Last Documented On 1 3:21PM ; [facility] Patient education about a pr oper diet Last Documented On 0 1:48PM ; [facility] Patient education about meal planning Last Documented On 0 1:48PM ; [facility] Education about changing eat ing habits Last Documented On 0 1:48PM ; [facility] Patient education about high fiber diet Last Documented On 0 1:48PM ; [facility] Patient education about low fat diet Last Documented On 0 1:48PM ; [facility] Patient education about low cholesterol diet Last Documented On 0 1:48PM ; [facility] Patient education about low carbohydrate diet Last Documented On 0 1:48PM ; [facility] Patient education about high protein diet Last Documented On 0 1:48PM ; [facility] offered active and suppo rtive listening, normalized emotions and feelings, processed current stressors and explored coping and stress reducing skills. ~[facility] attempted to discuss sleep hygiene strategies with patient including meditation, reducing caffeine use, increaing physical activity during the day as tolerated, and engaging in calming activities. Patient states that she has tried many things in the past and nothing has been sucessful. ~ Last Documented On 0 8:21AM ; [facility] Work Phone: Instructions Includes: Instructions for all patient encounters Education and Decision Aids were provided during visit for: Discussed nutritional needs teach healthy choices including fruits and vegetables Last Documented On 4 2:28PM ; [facility] Patient education about a pr oper diet Last Documented On 4 2:28PM ; [facility] Discussed concerns about exe rcise : promote physical activity Last Documented On 4 2:28PM ; [facility] Not requesting contraception Last Documented On 4 2:28PM ; [facility] Discussed nutritional needs teach healthy choices including fruits and vegetables Last Documented On 3 2:01PM ; [facility] Patient education about a pr oper diet Last Documented On 3 2:01PM ; [facility] Discussed concerns about exe rcise : promote physical activity Last Documented On 3 2:01PM ; [facility] Discussed nutritional needs teach healthy choices including fruits and vegetables Last Documented On 3 10:41AM ; [facility] Patient education about a pr oper diet Last Documented On 3 10:41AM ; [facility] Discussed concerns about exe rcise : promote physical activity Last Documented On 3 10:41AM ; [facility] and supp[facility] rtive [facility], normalized emotions and feelings, processed current stressors and explored coping and stress reducing skills. ~[facility] discussed coping skills to manage increased anxiety such as breathing techniques, mindfulness and meditation. [facility] discussed potential benefit in counseling and provided resource list. ~[facility] discussed healthy lifestyle changes to implement Last Documented On 3 3:16PM ; [facility] Discussed nutritional needs teach healthy choices including fruits and vegetables Last Documented On 3 11:08AM ; [facility] Patient education about a pr oper diet Last Documented On 3 11:08AM ; [facility] Discussed concerns about exe rcise : promote physical activity Last Documented On 3 11:08AM ; [facility] Discussed nutritional needs teach healthy choices including fruits and vegetables Last Documented On 2 11:44AM ; [facility] Patient education about a pr oper diet Last Documented On 2 11:44AM ; [facility] Discussed concerns about exe rcise : promote physical activity Last Documented On 2 11:44AM ; [facility] Problems sleeping Last Documented On 2 9:03AM ; [facility] Discussed nutritional needs teach healthy choices including fruits and vegetables Last Documented On 2 8:19AM ; [facility] Patient education about a pr oper diet Last Documented On 2 8:19AM ; [facility] Discussed concerns about exe rcise : promote physical activity Last Documented On 2 8:19AM ; [facility] Discussed nutritional needs teach healthy choices including fruits and vegetables Last Documented On 2 11:56AM ; [facility] Patient education about a pr oper diet Last Documented On 2 11:56AM ; [facility] Discussed concerns about exe rcise : promote physical activity Last Documented On 2 11:56AM ; [facility] Discussed nutritional needs teach healthy choices including fruits and vegetables Last Documented On 2 12:03PM ; [facility] Patient education about a pr oper diet Last Documented On 2 12:03PM ; [facility] Discussed concerns about exe rcise : promote physical activity Last Documented On 2 12:03PM ; [facility] Discussed current self-care methods/coping skills. ~Validated and normalized pt's feelings while assisting patient process recent events. ~Encouraged ongoing counseling. ~Discussed lifestyle changes to address chronic illness. ~Supported patient's personal health goals Last Documented On 2 9:32PM ; [facility] Discussed nutritional needs teach healthy choices including fruits and vegetables Last Documented On 2 2:12PM ; [facility] Patient education about a pr oper diet Last Documented On 2 2:12PM ; [facility] Discussed concerns about exe rcise : promote physical activity Last Documented On 2 2:12PM ; [facility] Discussed nutritional needs teach healthy choices including fruits and vegetables Last Documented On 1 4:05PM ; [facility] Patient education about a pr oper diet Last Documented On 1 4:05PM ; [facility] Discussed concerns about exe rcise : promote physical activity Last Documented On 1 4:05PM ; [facility] Discussed nutritional needs teach healthy choices including fruits and vegetables Last Documented On 1 7:23PM ; [facility] Patient education about a pr oper diet Last Documented On 1 7:23PM ; [facility] Patient education about a pr oper diet Last Documented On 1 7:45PM ; [facility] Patient education about meal planning Last Documented On 1 7:45PM ; [facility] Education about changing eat ing habits Last Documented On 1 7:45PM ; [facility] Patient education about high fiber diet Last Documented On 1 7:45PM ; [facility] Patient education about low fat diet Last Documented On 1 7:45PM ; [facility] Patient education about low cholesterol diet Last Documented On 1 7:45PM ; [facility] Patient education about low carbohydrate diet Last Documented On 1 7:45PM ; [facility] Discussed concerns about exe rcise : promote physical activity Last Documented On 1 7:23PM ; [facility] Discussed nutritional needs teach healthy choices including fruits and vegetables Last Documented On 1 4:54PM ; [facility] Patient education about a pr oper diet Last Documented On 1 4:54PM ; [facility] Patient education about a pr oper diet Last Documented On 1 5:25PM ; [facility] Patient education about meal planning Last Documented On 1 5:25PM ; [facility] Education about changing eat ing habits Last Documented On 1 5:25PM ; [facility] Patient education about high fiber diet Last Documented On 1 5:25PM ; [facility] Patient education about low fat diet Last Documented On 1 5:25PM ; [facility] Patient education about low cholesterol diet Last Documented On 1 5:25PM ; [facility] Patient education about low carbohydrate diet Last Documented On 1 5:25PM ; [facility] Patient education about high protein diet Last Documented On 1 5:25PM ; [facility] Discussed concerns about exe rcise : promote physical activity Last Documented On 1 4:54PM ; [facility] provided active listenin g, support and helped patient process through current symptoms and stressors related to family conflict. P/LAY UP OPERATOR discussed resources for housing and supports with patient. ~P discussed potential benefit of counseling and supports. Patient is willing to reconsider meeting with a provider at another agency than she has in the past as she does not want all of the same services Last Documented On 1 2:40PM ; [facility] Discussed nutritional needs teach healthy choices including fruits and vegetables Last Documented On 1 3:21PM ; [facility] Patient education about a pr oper diet Last Documented On 1 3:21PM ; [facility] Patient education about a pr oper diet Last Documented On 1 4:08PM ; [facility] Patient education about meal planning Last Documented On 1 4:08PM ; [facility] Education about changing eat ing habits Last Documented On 1 4:08PM ; [facility] Patient education about high fiber diet Last Documented On 1 4:08PM ; [facility] Patient education about low fat diet Last Documented On 1 4:08PM ; [facility] Patient education about low cholesterol diet Last Documented On 1 4:08PM ; [facility] Patient education about low carbohydrate diet Last Documented On 1 4:08PM ; [facility] Patient education about high protein diet Last Documented On 1 4:08PM ; [facility] Discussed concerns about exe rcise : promote physical activity Last Documented On 1 3:21PM ; [facility] Patient education about a pr oper diet Last Documented On 0 1:48PM ; [facility] Patient education about meal planning Last Documented On 0 1:48PM ; [facility] Education about changing eat ing habits Last Documented On 0 1:48PM ; [facility] Patient education about high fiber diet Last Documented On 0 1:48PM ; [facility] Patient education about low fat diet Last Documented On 0 1:48PM ; [facility] Patient education about low cholesterol diet Last Documented On 0 1:48PM ; [facility] Patient education about low carbohydrate diet Last Documented On 0 1:48PM ; [facility] Patient education about high protein diet Last Documented On 0 1:48PM ; [facility] offered active and suppo rtive listening, normalized emotions and feelings, processed current stressors and explored coping and stress reducing skills. ~[facility] attempted to discuss sleep hygiene strategies with patient including meditation, reducing caffeine use, increaing physical activity during the day as tolerated, and engaging in calming activities. Patient states that she has tried many things in the past and nothing has been sucessful. ~ Last Documented On 0 8:21AM ; [facility] Work Phone: Instructions Includes: Instructions for all patient encounters Education and Decision Aids were provided during visit for: Discussed nutritional needs teach healthy choices including fruits and vegetables Last Documented On 4 2:02PM ; [facility] Patient education about a pr oper diet Last Documented On 4 2:02PM ; [facility] Patient education about an a sthma action plan Last Documented On 4 2:13PM ; [facility] Discussed concerns about exe rcise : promote physical activity Last Documented On 4 2:02PM ; [facility] Discussed nutritional needs teach healthy choices including fruits and vegetables Last Documented On 4 8:36AM ; [facility] Patient education about a pr oper diet Last Documented On 4 8:36AM ; [facility] Discussed concerns about exe rcise : promote physical activity Last Documented On 4 8:36AM ; [facility] offered active and suppo rtive listening, normalized emotions and feelings, and processed current stressors. ~[facility] discussed coping skills to manage increased anxiety. ~[facility] discussed community resources and supports Last Documented On 4 1:56PM ; [facility] Discussed nutritional needs teach healthy choices including fruits and vegetables Last Documented On 4 2:28PM ; [facility] Patient education about a pr oper diet Last Documented On 4 2:28PM ; [facility] Discussed concerns about exe rcise : promote physical activity Last Documented On 4 2:28PM ; [facility] Not requesting contraception Last Documented On 4 2:28PM ; [facility] Discussed nutritional needs teach healthy choices including fruits and vegetables Last Documented On 3 2:01PM ; [facility] Patient education about a pr oper diet Last Documented On 3 2:01PM ; [facility] Discussed concerns about exe rcise : promote physical activity Last Documented On 3 2:01PM ; [facility] Discussed nutritional needs teach healthy choices including fruits and vegetables Last Documented On 3 10:41AM ; [facility] Patient education about a pr oper diet Last Documented On 3 10:41AM ; [facility] Discussed concerns about exe rcise : promote physical activity Last Documented On 3 10:41AM ; [facility] active and suppo rtive listening, normalized emotions and feelings, processed current stressors and explored coping and stress reducing skills. ~P discussed coping skills to manage increased anxiety such as breathing techniques, mindfulness and meditation. P discussed potential benefit in counseling and provided resource list. [facility] [facility] discussed healthy lifestyle changes to implement Last Documented On 3 3:16PM ; [facility] Discussed nutritional needs teach healthy choices including fruits and vegetables Last Documented On 3 11:08AM ; [facility] Patient education about a pr oper diet Last Documented On 3 11:08AM ; [facility] Discussed concerns about exe rcise : promote physical activity Last Documented On 3 11:08AM ; [facility] Discussed nutritional needs teach healthy choices including fruits and vegetables Last Documented On 2 11:44AM ; [facility] Patient education about a pr oper diet Last Documented On 2 11:44AM ; [facility] Discussed concerns about exe rcise : promote physical activity Last Documented On 2 11:44AM ; [facility] Problems sleeping Last Documented On 2 9:03AM ; [facility] Discussed nutritional needs teach healthy choices including fruits and vegetables Last Documented On 2 8:19AM ; [facility] Patient education about a pr oper diet Last Documented On 2 8:19AM ; [facility] Discussed concerns about exe rcise : promote physical activity Last Documented On 2 8:19AM ; [facility] Discussed nutritional needs teach healthy choices including fruits and vegetables Last Documented On 2 11:56AM ; [facility] Patient education about a pr oper diet Last Documented On 2 11:56AM ; [facility] Discussed concerns about exe rcise : promote physical activity Last Documented On 2 11:56AM ; [facility] Discussed nutritional needs teach healthy choices including fruits and vegetables Last Documented On 2 12:03PM ; [facility] Patient education about a pr oper diet Last Documented On 2 12:03PM ; [facility] Discussed concerns about exe rcise : promote physical activity Last Documented On 2 12:03PM ; [facility] Discussed current self-care methods/coping skills. ~Validated and normalized pt's feelings while assisting patient process recent events. ~Encouraged ongoing counseling. ~Discussed lifestyle changes to address chronic illness. ~Supported patient's personal health goals Last Documented On 2 9:32PM ; [facility] Discussed nutritional needs teach healthy choices including fruits and vegetables Last Documented On 2 2:12PM ; [facility] Patient education about a pr oper diet Last Documented On 2 2:12PM ; [facility] Discussed concerns about exe rcise : promote physical activity Last Documented On 2 2:12PM ; [facility] Discussed nutritional needs teach healthy choices including fruits and vegetables Last Documented On 1 4:05PM ; [facility] Patient education about a pr oper diet Last Documented On 1 4:05PM ; [facility] Discussed concerns about exe rcise : promote physical activity Last Documented On 1 4:05PM ; [facility] Discussed nutritional needs teach healthy choices including fruits and vegetables Last Documented On 1 7:23PM ; [facility] Patient education about a pr oper diet Last Documented On 1 7:23PM ; [facility] Patient education about a pr oper diet Last Documented On 1 7:45PM ; [facility] Patient education about meal planning Last Documented On 1 7:45PM ; [facility] Education about changing eat ing habits Last Documented On 1 7:45PM ; [facility] Patient education about high fiber diet Last Documented On 1 7:45PM ; [facility] Patient education about low fat diet Last Documented On 1 7:45PM ; [facility] Patient education about low cholesterol diet Last Documented On 1 7:45PM ; [facility] Patient education about low carbohydrate diet Last Documented On 1 7:45PM ; [facility] Discussed concerns about exe rcise : promote physical activity Last Documented On 1 7:23PM ; [facility] Discussed nutritional needs teach healthy choices including fruits and vegetables Last Documented On 1 4:54PM ; [facility] Patient education about a pr oper diet Last Documented On 1 4:54PM ; [facility] Patient education about a pr oper diet Last Documented On 1 5:25PM ; [facility] Patient education about meal planning Last Documented On 1 5:25PM ; [facility] Education about changing eat ing habits Last Documented On 1 5:25PM ; [facility] Patient education about high fiber diet Last Documented On 1 5:25PM ; [facility] Patient education about low fat diet Last Documented On 1 5:25PM ; [facility] Patient education about low cholesterol diet Last Documented On 1 5:25PM ; [facility] Patient education about low carbohydrate diet Last Documented On 1 5:25PM ; [facility] Patient education about high protein diet Last Documented On 1 5:25PM ; [facility] Discussed concerns about exe rcise : promote physical activity Last Documented On 1 4:54PM ; [facility] provided active listenin g, support and helped patient process through current symptoms and stressors related to family conflict. [facility] discussed resources for housing and supports with patient. ~[facility] discussed potential benefit of counseling and supports. Patient is willing to reconsider meeting with a provider at another agency than she has in the past as she does not want all of the same services Last Documented On 1 2:40PM ; [facility] Discussed nutritional needs teach healthy choices including fruits and vegetables Last Documented On 1 3:21PM ; [facility] Patient education about a pr oper diet Last Documented On 1 3:21PM ; [facility] Patient education about a pr oper diet Last Documented On 1 4:08PM ; [facility] Patient education about meal planning Last Documented On 1 4:08PM ; [facility] Education about changing eat ing habits Last Documented On 1 4:08PM ; [facility] Patient education about high fiber diet Last Documented On 1 4:08PM ; [facility] Patient education about low fat diet Last Documented On 1 4:08PM ; [facility] Patient education about low cholesterol diet Last Documented On 1 4:08PM ; [facility] Patient education about low carbohydrate diet Last Documented On 1 4:08PM ; [facility] Patient education about high protein diet Last Documented On 1 4:08PM ; [facility] Discussed concerns about exe rcise : promote physical activity Last Documented On 1 3:21PM ; [facility] Patient education about a pr oper diet Last Documented On 0 1:48PM ; [facility] Patient education about meal planning Last Documented On 0 1:48PM ; [facility] Education about changing eat ing habits Last Documented On 0 1:48PM ; [facility] Patient education about high fiber diet Last Documented On 0 1:48PM ; [facility] Patient education about low fat diet Last Documented On 0 1:48PM ; [facility] Patient education about low cholesterol diet Last Documented On 0 1:48PM ; [facility] Patient education about low carbohydrate diet Last Documented On 0 1:48PM ; [facility] Patient education about high protein diet Last Documented On 0 1:48PM ; [facility] offered active and suppo rtive listening, normalized emotions and feelings, processed current stressors and explored coping and stress reducing skills. ~[facility] attempted to discuss sleep hygiene strategies with patient including meditation, reducing caffeine use, increaing physical activity during the day as tolerated, and engaging in calming activities. Patient states that she has tried many things in the past and nothing has been sucessful. ~ Last Documented On 0 8:21AM ; [facility] Work Phone: Instructions Includes: Instructions for all patient encounters Education and Decision Aids were provided during visit for: Discussed nutritional needs teach healthy choices including fruits and vegetables Last Documented On 4 2:02PM ; [facility] Patient education about a pr oper diet Last Documented On 4 2:02PM ; [facility] Patient education about an a sthma action plan Last Documented On 4 2:13PM ; [facility] Discussed concerns about exe rcise : promote physical activity Last Documented On 4 2:02PM ; [facility] Discussed nutritional needs teach healthy choices including fruits and vegetables Last Documented On 4 8:36AM ; [facility] Patient education about a pr oper diet Last Documented On 4 8:36AM ; [facility] Discussed concerns about exe rcise : promote physical activity Last Documented On 4 8:36AM ; [facility] offered active and suppo rtive listening, normalized emotions and feelings, and processed current stressors. ~[facility] discussed coping skills to manage increased anxiety. ~[facility] discussed community resources and supports Last Documented On 4 1:56PM ; [facility] Discussed nutritional needs teach healthy choices including fruits and vegetables Last Documented On 4 2:28PM ; [facility] Patient education about a pr oper diet Last Documented On 4 2:28PM ; [facility] Discussed concerns about exe rcise : promote physical activity Last Documented On 4 2:28PM ; [facility] Not requesting contraception Last Documented On 4 2:28PM ; [facility] Discussed nutritional needs teach healthy choices including fruits and vegetables Last Documented On 3 2:01PM ; [facility] Patient education about a pr oper diet Last Documented On 3 2:01PM ; [facility] Discussed concerns about exe rcise : promote physical activity Last Documented On 3 2:01PM ; [facility] Discussed nutritional needs teach healthy choices including fruits and vegetables Last Documented On 3 10:41AM ; [facility] Patient education about a pr oper diet Last Documented On 3 10:41AM ; [facility] Discussed concerns about exe rcise : promote physical activity Last Documented On 3 10:41AM ; [facility] offered active and suppo rtive listening, normalized emotions and feelings, processed current stressors and explored coping and stress reducing skills. ~P discussed coping skills to manage increased anxiety such as breathing techniques, mindfulness and meditation. P discussed potential benefit in counseling and provided resource list. ~[facility] discussed healthy lifestyle changes to implement Last Documented On 3 3:16PM ; [facility] Discussed nutritional needs teach healthy choices including fruits and vegetables Last Documented On 3 11:08AM ; [facility] Patient education about a pr oper diet Last Documented On 3 11:08AM ; [facility] Discussed concerns about exe rcise : promote physical activity Last Documented On 3 11:08AM ; [facility] Discussed nutritional needs teach healthy choices including fruits and vegetables Last Documented On 2 11:44AM ; [facility] Patient education about a pr oper diet Last Documented On 2 11:44AM ; [facility] Discussed concerns about exe rcise : promote physical activity Last Documented On 2 11:44AM ; [facility] Problems sleeping Last Documented On 2 9:03AM ; [facility] Discussed nutritional needs teach healthy choices including fruits and vegetables Last Documented On 2 8:19AM ; [facility] Patient education about a pr oper diet Last Documented On 2 8:19AM ; [facility] Discussed concerns about exe rcise : promote physical activity Last Documented On 2 8:19AM ; [facility] Discussed nutritional needs teach healthy choices including fruits and vegetables Last Documented On 2 11:56AM ; [facility] Patient education about a pr oper diet Last Documented On 2 11:56AM ; [facility] Discussed concerns about exe rcise : promote physical activity Last Documented On 2 11:56AM ; [facility] Discussed nutritional needs teach healthy choices including fruits and vegetables Last Documented On 2 12:03PM ; [facility] Patient education about a pr oper diet Last Documented On 2 12:03PM ; [facility] Discussed concerns about exe rcise : promote physical activity Last Documented On 2 12:03PM ; [facility] Discussed current self-care methods/coping skills. ~Validated and normalized pt's feelings while assisting patient process recent events. ~Encouraged ongoing counseling. ~Discussed lifestyle changes to address chronic illness. ~Supported patient's personal health goals Last Documented On 2 9:32PM ; [facility] Discussed nutritional needs teach healthy choices including fruits and vegetables Last Documented On 2 2:12PM ; [facility] Patient education about a pr oper diet Last Documented On 2 2:12PM ; [facility] Discussed concerns about exe rcise : promote physical activity Last Documented On 2 2:12PM ; [facility] Discussed nutritional needs teach healthy choices including fruits and vegetables Last Documented On 1 4:05PM ; [facility] Patient education about a pr oper diet Last Documented On 1 4:05PM ; [facility] Discussed concerns about exe rcise : promote physical activity Last Documented On 1 4:05PM ; [facility] Discussed nutritional needs teach healthy choices including fruits and vegetables Last Documented On 1 7:23PM ; [facility] Patient education about a pr oper diet Last Documented On 1 7:23PM ; [facility] Patient education about a pr oper diet Last Documented On 1 7:45PM ; [facility] Patient education about meal planning Last Documented On 1 7:45PM ; [facility] Education about changing eat ing habits Last Documented On 1 7:45PM ; [facility] Patient education about high fiber diet Last Documented On 1 7:45PM ; [facility] Patient education about low fat diet Last Documented On 1 7:45PM ; [facility] Patient education about low cholesterol diet Last Documented On 1 7:45PM ; [facility] Patient education about low carbohydrate diet Last Documented On 7:45PM ; [facility] Discussed concerns about exe rcise : promote physical activity Last Documented On 1 7:23PM ; [facility] Discussed nutritional needs teach healthy choices including fruits and vegetables Last Documented On 1 4:54PM ; [facility] Patient education about a pr oper diet Last Documented On 1 4:54PM ; [facility] Patient education about a pr oper diet Last Documented On 1 5:25PM ; [facility] Patient education about meal planning Last Documented On 1 5:25PM ; [facility] Education about changing eat ing habits Last Documented On 1 5:25PM ; [facility] Patient education about high fiber diet Last Documented On 1 5:25PM ; [facility] Patient education about low fat diet Last Documented On 1 5:25PM ; [facility] Patient education about low cholesterol diet Last Documented On 1 5:25PM ; [facility] Patient education about low carbohydrate diet Last Documented On 1 5:25PM ; [facility] Patient education about high protein diet Last Documented On 1 5:25PM ; [facility] Discussed concerns about exe rcise : promote physical activity Last Documented On 1 4:54PM ; [facility] provided active listenin g, support and helped patient process through current symptoms and stressors related to family conflict. [facility]/LAY UP OPERATOR discussed resources for housing and supports with patient. ~[facility] discussed potential benefit of counseling and supports. Patient is willing to reconsider meeting with a provider at another agency than she has in the past as she does not want all of the same services Last Documented On 1 2:40PM ; [facility] Discussed nutritional needs teach healthy choices including fruits and vegetables Last Documented On 1 3:21PM ; [facility] Patient education about a pr oper diet Last Documented On 1 3:21PM ; [facility] Patient education about a pr oper diet Last Documented On 1 4:08PM ; [facility] Patient education about meal planning Last Documented On 1 4:08PM ; [facility] Education about changing eat ing habits Last Documented On 1 4:08PM ; [facility] Patient education about high fiber diet Last Documented On 1 4:08PM ; [facility] Patient education about low fat diet Last Documented On 1 4:08PM ; [facility] Patient education about low cholesterol diet Last Documented On 1 4:08PM ; [facility] Patient education about low carbohydrate diet Last Documented On 1 4:08PM ; [facility] Patient education about high protein diet Last Documented On 1 4:08PM ; [facility] Discussed concerns about exe rcise : promote physical activity Last Documented On 1 3:21PM ; [facility] Patient education about a pr oper diet Last Documented On 0 1:48PM ; [facility] Patient education about meal planning Last Documented On 0 1:48PM ; [facility] Education about changing eat ing habits Last Documented On 0 1:48PM ; [facility] Patient education about high fiber diet Last Documented On 0 1:48PM ; [facility] Patient education about low fat diet Last Documented On 0 1:48PM ; [facility] Patient education about low cholesterol diet Last Documented On 0 1:48PM ; [facility] Patient education about low carbohydrate diet Last Documented On 0 1:48PM ; [facility] Patient education about high protein diet Last Documented On 0 1:48PM ; [facility] offered active and suppo rtive listening, normalized emotions and feelings, processed current stressors and explored coping and stress reducing skills. ~[facility] attempted to discuss sleep hygiene strategies with patient including meditation, reducing caffeine use, increaing physical activity during the day as tolerated, and engaging in calming activities. Patient states that she has tried many things in the past and nothing has been sucessful. ~ Last Documented On 0 8:21AM ; [facility] Work Phone: Instructions Includes: Instructions for all patient encounters Education and Decision Aids were provided during visit for: Discussed nutritional needs teach healthy choices including fruits and vegetables Last Documented On 4 8:58AM ; [facility] Patient education about a pr oper diet Last Documented On 4 8:58AM ; [facility] Discussed concerns about exe rcise : promote physical activity Last Documented On 4 8:58AM ; [facility] Discussed nutritional needs teach healthy choices including fruits and vegetables Last Documented On 4 2:02PM ; [facility] Patient education about a pr oper diet Last Documented On 4 2:02PM ; [facility] Patient education about an a sthma action plan Last Documented On 4 2:13PM ; [facility] Discussed concerns about exe rcise : promote physical activity Last Documented On 4 2:02PM ; [facility] Discussed nutritional needs teach healthy choices including fruits and vegetables Last Documented On 4 8:36AM ; [facility] Patient education about a pr oper diet Last Documented On 4 8:36AM ; [facility] Discussed concerns about exe rcise : promote physical activity Last Documented On 4 8:36AM ; [facility] offered active and suppo rtive listening, normalized emotions and feelings, and processed current stressors. ~P discussed coping skills to manage increased anxiety. ~[facility] discussed community resources and supports Last Documented On 4 1:56PM ; [facility] Discussed nutritional needs teach healthy choices including fruits and vegetables Last Documented On 4 2:28PM ; [facility] Patient education about a pr oper diet Last Documented On 4 2:28PM ; [facility] Discussed concerns about exe rcise : promote physical activity Last Documented On 4 2:28PM ; [facility] Not requesting contraception Last Documented On 4 2:28PM ; [facility] Discussed nutritional needs teach healthy choices including fruits and vegetables Last Documented On 3 2:01PM ; [facility] Patient education about a pr oper diet Last Documented On 3 2:01PM ; [facility] Discussed concerns about exe rcise : promote physical activity Last Documented On 3 2:01PM ; [facility] Discussed nutritional needs teach healthy choices including fruits and vegetables Last Documented On 3 10:41AM ; [facility] Patient education about a pr oper diet Last Documented On 3 10:41AM ; [facility] Discussed concerns about exe rcise : promote physical activity Last Documented On 3 10:41AM ; [facility] offered active and suppo rtive listening, normalized emotions and feelings, processed current stressors and explored coping and stress reducing skills. ~P discussed coping skills to manage increased anxiety such as breathing techniques, mindfulness and meditation. [facility] discussed potential benefit in counseling and provided resource list. ~[facility] discussed healthy lifestyle changes to implement Last Documented On 3 3:16PM ; [facility] Discussed nutritional needs teach healthy choices including fruits and vegetables Last Documented On 3 11:08AM ; [facility] Patient education about a pr oper diet Last Documented On 3 11:08AM ; [facility] Discussed concerns about exe rcise : promote physical activity Last Documented On 3 11:08AM ; [facility] Discussed nutritional needs teach healthy choices including fruits and vegetables Last Documented On 2 11:44AM ; [facility] Patient education about a pr oper diet Last Documented On 2 11:44AM ; [facility] Discussed concerns about exe rcise : promote physical activity Last Documented On 2 11:44AM ; [facility] Problems sleeping Last Documented On 2 9:03AM ; [facility] Discussed nutritional needs teach healthy choices including fruits and vegetables Last Documented On 2 8:19AM ; [facility] Patient education about a pr oper diet Last Documented On 2 8:19AM ; [facility] Discussed concerns about exe rcise : promote physical activity Last Documented On 2 8:19AM ; [facility] Discussed nutritional needs teach healthy choices including fruits and vegetables Last Documented On 2 11:56AM ; [facility] Patient education about a pr oper diet Last Documented On 2 11:56AM ; [facility] Discussed concerns about exe rcise : promote physical activity Last Documented On 2 11:56AM ; [facility] Discussed nutritional needs teach healthy choices including fruits and vegetables Last Documented On 2 12:03PM ; [facility] Patient education about a pr oper diet Last Documented On 2 12:03PM ; [facility] Discussed concerns about exe rcise : promote physical activity Last Documented On 2 12:03PM ; [facility] Discussed current self-care methods/coping skills. ~Validated and normalized pt's feelings while assisting patient process recent events. ~Encouraged ongoing counseling. ~Discussed lifestyle changes to address chronic illness. ~Supported patient's personal health goals Last Documented On 2 9:32PM ; [facility] Discussed nutritional needs teach healthy choices including fruits and vegetables Last Documented On 2 2:12PM ; [facility] Patient education about a pr oper diet Last Documented On 2 2:12PM ; [facility] Discussed concerns about exe rcise : promote physical activity Last Documented On 2 2:12PM ; [facility] Discussed nutritional needs teach healthy choices including fruits and vegetables Last Documented On 1 4:05PM ; [facility] Patient education about a pr oper diet Last Documented On 1 4:05PM ; [facility] Discussed concerns about exe rcise : promote physical activity Last Documented On 1 4:05PM ; [facility] Discussed nutritional needs teach healthy choices including fruits and vegetables Last Documented On 1 7:23PM ; [facility] Patient education about a pr oper diet Last Documented On 1 7:23PM ; [facility] Patient education about a pr oper diet Last Documented On 1 7:45PM ; [facility] Patient education about meal planning Last Documented On 1 7:45PM ; [facility] Education about changing eat ing habits Last Documented On 1 7:45PM ; [facility] Patient education about high fiber diet Last Documented On 1 7:45PM ; [facility] Patient education about low fat diet Last Documented On 1 7:45PM ; [facility] Patient education about low cholesterol diet Last Documented On 1 7:45PM ; [facility] Patient education about low carbohydrate diet Last Documented On 1 7:45PM ; [facility] Discussed concerns about exe rcise : promote physical activity Last Documented On 1 7:23PM ; [facility] Discussed nutritional needs teach healthy choices including fruits and vegetables Last Documented On 1 4:54PM ; [facility] Patient education about a pr oper diet Last Documented On 1 4:54PM ; [facility] Patient education about a pr oper diet Last Documented On 1 5:25PM ; [facility] Patient education about meal planning Last Documented On 1 5:25PM ; [facility] Education about changing eat ing habits Last Documented On 1 5:25PM ; [facility] Patient education about high fiber diet Last Documented On 1 5:25PM ; [facility] Patient education about low fat diet Last Documented On 1 5:25PM ; [facility] Patient education about low cholesterol diet Last Documented On 1 5:25PM ; [facility] Patient education about low carbohydrate diet Last Documented On 1 5:25PM ; [facility] Patient education about high protein diet Last Documented On 1 5:25PM ; [facility] Discussed concerns about exe rcise : promote physical activity Last Documented On 1 4:54PM ; [facility] provided active listenin g, support and helped patient process through current symptoms and stressors related to family conflict. [facility] discussed resources for housing and supports with patient. ~P discussed potential benefit of counseling and supports. Patient is willing to reconsider meeting with a provider at another agency than she has in the past as she does not want all of the same services Last Documented On 1 2:40PM ; [facility] Discussed nutritional needs teach healthy choices including fruits and vegetables Last Documented On 1 3:21PM ; [facility] Patient education about a pr oper diet Last Documented On 1 3:21PM ; [facility] Patient education about a pr oper diet Last Documented On 1 4:08PM ; [facility] Patient education about meal planning Last Documented On 1 4:08PM ; [facility] Education about changing eat ing habits Last Documented On 1 4:08PM ; [facility] Patient education about high fiber diet Last Documented On 1 4:08PM ; [facility] Patient education about low fat diet Last Documented On 1 4:08PM ; [facility] Patient education about low cholesterol diet Last Documented On 1 4:08PM ; [facility] Patient education about low carbohydrate diet Last Documented On 1 4:08PM ; [facility] Patient education about high protein diet Last Documented On 1 4:08PM ; [facility] Discussed concerns about exe rcise : promote physical activity Last Documented On 1 3:21PM ; [facility] Patient education about a pr oper diet Last Documented On 0 1:48PM ; [facility] Patient education about meal planning Last Documented On 0 1:48PM ; [facility] Education about changing eat ing habits Last Documented On 0 1:48PM ; [facility] Patient education about high fiber diet Last Documented On 0 1:48PM ; [facility] Patient education about low fat diet Last Documented On 0 1:48PM ; [facility] Patient education about low cholesterol diet Last Documented On 0 1:48PM ; [facility] Patient education about low carbohydrate diet Last Documented On 0 1:48PM ; [facility] Patient education about high protein diet Last Documented On 0 1:48PM ; [facility] offered active and suppo rtive listening, normalized emotions and feelings, processed current stressors and explored coping and stress reducing skills. ~[facility] attempted to discuss sleep hygiene strategies with patient including meditation, reducing caffeine use, increaing physical activity during the day as tolerated, and engaging in calming activities. Patient states that she has tried many things in the past and nothing has been sucessful. ~ Last Documented On 0 8:21AM ; [facility] Work Phone: Instructions Includes: Instructions for all patient encounters Education and Decision Aids were provided during visit for: [facility] offered active and suppo rtive listening, normalized emotions and feelings related to grief and loss, and processed current stressors related to navigating challenges with family members and planning her sisters . ~[facility] discussed importane of coping skills and supports. ~[facility] encouraged patient to follow-up with counseling resources. [facility] discussed grief support groups that patient can reach out to for additional support as she is establishing with counseling Last Documented On 4 12:10PM ; [facility] Discussed nutritional needs teach healthy choices including fruits and vegetables Last Documented On 4 8:58AM ; [facility] Patient education about a pr oper diet Last Documented On 4 8:58AM ; [facility] Discussed concerns about exe rcise : promote physical activity Last Documented On 4 8:58AM ; [facility] Discussed nutritional needs teach healthy choices including fruits and vegetables Last Documented On 4 2:02PM ; [facility] Patient education about a pr oper diet Last Documented On 4 2:02PM ; [facility] Patient education about an a sthma action plan Last Documented On 4 2:13PM ; [facility] Discussed concerns about exe rcise : promote physical activity Last Documented On 4 2:02PM ; [facility] Discussed nutritional needs teach healthy choices including fruits and vegetables Last Documented On 4 8:36AM ; [facility] Patient education about a pr oper diet Last Documented On 4 8:36AM ; [facility] Discussed concerns about exe rcise : promote physical activity Last Documented On 4 8:36AM ; [facility] offered active and suppo rtive listening, normalized emotions and feelings, and processed current stressors. ~[facility] discussed coping skills to manage increased anxiety. ~[facility] discussed community resources and supports Last Documented On 4 1:56PM ; [facility] Discussed nutritional needs teach healthy choices including fruits and vegetables Last Documented On 4 2:28PM ; [facility] Patient education about a pr oper diet Last Documented On 4 2:28PM ; [facility] Discussed concerns about exe rcise : promote physical activity Last Documented On 4 2:28PM ; [facility] Not requesting contraception Last Documented On 4 2:28PM ; [facility] Discussed nutritional needs teach healthy choices including fruits and vegetables Last Documented On 3 2:01PM ; [facility] Patient education about a pr oper diet Last Documented On 3 2:01PM ; [facility] Discussed concerns about exe rcise : promote physical activity Last Documented On 3 2:01PM ; [facility] Discussed nutritional needs teach healthy choices including fruits and vegetables Last Documented On 3 10:41AM ; [facility] Patient education about a pr oper diet Last Documented On 3 10:41AM ; [facility] Discussed concerns about exe rcise : promote physical activity Last Documented On 3 10:41AM ; [facility] offered active and suppo rtive listening, normalized emotions and feelings, processed current stressors and explored coping and stress reducing skills. ~P discussed coping skills to manage increased anxiety such as breathing techniques, mindfulness and meditation. [facility] discussed potential benefit in counseling and provided resource list. ~[facility] discussed healthy lifestyle changes to implement Last Documented On 3 3:16PM ; [facility] Discussed nutritional needs teach healthy choices including fruits and vegetables Last Documented On 3 11:08AM ; [facility] Patient education about a pr oper diet Last Documented On 3 11:08AM ; [facility] Discussed concerns about exe rcise : promote physical activity Last Documented On 3 11:08AM ; [facility] Discussed nutritional needs teach healthy choices including fruits and vegetables Last Documented On 2 11:44AM ; [facility] Patient education about a pr oper diet Last Documented On 2 11:44AM ; [facility] Discussed concerns about exe rcise : promote physical activity Last Documented On 2 11:44AM ; [facility] Problems sleeping Last Documented On 2 9:03AM ; [facility] Discussed nutritional needs teach healthy choices including fruits and vegetables Last Documented On 2 8:19AM ; [facility] Patient education about a pr oper diet Last Documented On 2 8:19AM ; [facility] Discussed concerns about exe rcise : promote physical activity Last Documented On 2 8:19AM ; [facility] Discussed nutritional needs teach healthy choices including fruits and vegetables Last Documented On 2 11:56AM ; [facility] Patient education about a pr oper diet Last Documented On 2 11:56AM ; [facility] Discussed concerns about exe rcise : promote physical activity Last Documented On 2 11:56AM ; [facility] Discussed nutritional needs teach healthy choices including fruits and vegetables Last Documented On 2 12:03PM ; [facility] Patient education about a pr oper diet Last Documented On 2 12:03PM ; [facility] Discussed concerns about exe rcise : promote physical activity Last Documented On 2 12:03PM ; [facility] Discussed current self-care methods/coping skills. ~Validated and normalized pt's feelings while assisting patient process recent events. ~Encouraged ongoing counseling. ~Discussed lifestyle changes to address chronic illness. ~Supported patient's personal health goals Last Documented On 2 9:32PM ; [facility] Discussed nutritional needs teach healthy choices including fruits and vegetables Last Documented On 2 2:12PM ; [facility] Patient education about a pr oper diet Last Documented On 2 2:12PM ; [facility] Discussed concerns about exe rcise : promote physical activity Last Documented On 2 2:12PM ; [facility] Discussed nutritional needs teach healthy choices including fruits and vegetables Last Documented On 1 4:05PM ; [facility] Patient education about a pr oper diet Last Documented On 1 4:05PM ; [facility] Discussed concerns about exe rcise : promote physical activity Last Documented On 1 4:05PM ; [facility] Discussed nutritional needs teach healthy choices including fruits and vegetables Last Documented On 1 7:23PM ; [facility] Patient education about a pr oper diet Last Documented On 1 7:23PM ; [facility] Patient education about a pr oper diet Last Documented On 1 7:45PM ; [facility] Patient education about meal planning Last Documented On 1 7:45PM ; [facility] Education about changing eat ing habits Last Documented On 1 7:45PM ; [facility] Patient education about high fiber diet Last Documented On 1 7:45PM ; [facility] Patient education about low fat diet Last Documented On 1 7:45PM ; [facility] Patient education about low cholesterol diet Last Documented On 1 7:45PM ; [facility] Patient education about low carbohydrate diet Last Documented On 1 7:45PM ; [facility] Discussed concerns about exe rcise : promote physical activity Last Documented On 1 7:23PM ; [facility] Discussed nutritional needs teach healthy choices including fruits and vegetables Last Documented On 1 4:54PM ; [facility] Patient education about a pr oper diet Last Documented On 1 4:54PM ; [facility] Patient education about a pr oper diet Last Documented On 1 5:25PM ; [facility] Patient education about meal planning Last Documented On 1 5:25PM ; [facility] Education about changing eat ing habits Last Documented On 1 5:25PM ; [facility] Patient education about high fiber diet Last Documented On 1 5:25PM ; [facility] Patient education about low fat diet Last Documented On 1 5:25PM ; [facility] Patient education about low cholesterol diet Last Documented On 1 5:25PM ; [facility] Patient education about low carbohydrate diet Last Documented On 1 5:25PM ; [facility] Patient education about high protein diet Last Documented On 1 5:25PM ; [facility] Discussed concerns about exe rcise : promote physical activity Last Documented On 1 4:54PM ; [facility] provided active listenin g, support and helped patient process through current symptoms and stressors related to family conflict. [facility]/[employer] OPERATOR discussed resources for housing and supports with patient. ~[facility] discussed potential benefit of counseling and supports. Patient is willing to reconsider meeting with a provider at another agency than she has in the past as she does not want all of the same services Last Documented On 1 2:40PM ; [facility] Discussed nutritional needs teach healthy choices including fruits and vegetables Last Documented On 1 3:21PM ; [facility] Patient education about a pr oper diet Last Documented On 1 3:21PM ; [facility] Patient education about a pr oper diet Last Documented On 1 4:08PM ; [facility] Patient education about meal planning Last Documented On 1 4:08PM ; [facility] Education about changing eat ing habits Last Documented On 1 4:08PM ; [facility] Patient education about high fiber diet Last Documented On 1 4:08PM ; [facility] Patient education about low fat diet Last Documented On 1 4:08PM ; [facility] Patient education about low cholesterol diet Last Documented On 1 4:08PM ; [facility] Patient education about low carbohydrate diet Last Documented On 1 4:08PM ; [facility] Patient education about high protein diet Last Documented On 1 4:08PM ; [facility] Discussed concerns about exe rcise : promote physical activity Last Documented On 1 3:21PM ; [facility] Patient education about a pr oper diet Last Documented On 0 1:48PM ; [facility] Patient education about meal planning Last Documented On 0 1:48PM ; [facility] Education about changing eat ing habits Last Documented On 0 1:48PM ; [facility] Patient education about high fiber diet Last Documented On 0 1:48PM ; [facility] Patient education about low fat diet Last Documented On 0 1:48PM ; [facility] Patient education about low cholesterol diet Last Documented On 0 1:48PM ; [facility] Patient education about low carbohydrate diet Last Documented On 0 1:48PM ; [facility] Patient education about high protein diet Last Documented On 0 1:48PM ; [facility] offered active and suppo rtive listening, normalized emotions and feelings, processed current stressors and explored coping and stress reducing skills. ~[facility] attempted to discuss sleep hygiene strategies with patient including meditation, reducing caffeine use, increaing physical activity during the day as tolerated, and engaging in calming activities. Patient states that she has tried many things in the past and nothing has been sucessful. ~ Last Documented On 0 8:21AM ; [facility] Work Phone: Instructions Includes: Instructions for all patient encounters Education and Decision Aids were provided during visit for: Discussed nutritional needs teach healthy choices including fruits and vegetables Last Documented On 4 4:57PM ; [facility] Patient education about a pr oper diet Last Documented On 4 4:57PM ; [facility] Discussed concerns about exe rcise : promote physical activity Last Documented On 4 4:57PM ; [facility] offered active and suppo rtive listening, normalized emotions and feelings related to grief and loss, and processed current stressors related to navigating challenges with family members and planning her sisters . ~[facility] discussed importane of coping skills and supports. [facility] encouraged patient to follow-up with counseling resources. [facility] discussed grief support groups that patient can reach out to for additional support as she is establishing with counseling Last Documented On 4 12:10PM ; [facility] Discussed nutritional needs teach healthy choices including fruits and vegetables Last Documented On 4 8:58AM ; [facility] Patient education about a pr oper diet Last Documented On 4 8:58AM ; [facility] Discussed concerns about exe rcise : promote physical activity Last Documented On 4 8:58AM ; [facility] Discussed nutritional needs teach healthy choices including fruits and vegetables Last Documented On 4 2:02PM ; [facility] Patient education about a pr oper diet Last Documented On 4 2:02PM ; [facility] Patient education about an a sthma action plan Last Documented On 4 2:13PM ; [facility] Discussed concerns about exe rcise : promote physical activity Last Documented On 4 2:02PM ; [facility] Discussed nutritional needs teach healthy choices including fruits and vegetables Last Documented On 4 8:36AM ; [facility] Patient education about a pr oper diet Last Documented On 4 8:36AM ; [facility] Discussed concerns about exe rcise : promote physical activity Last Documented On 4 8:36AM ; [facility] offered active and suppo rtive listening, normalized emotions and feelings, and processed current stressors. ~[facility] discussed coping skills to manage increased anxiety. ~[facility] discussed community resources and supports Last Documented On 4 1:56PM ; [facility] Discussed nutritional needs teach healthy choices including fruits and vegetables Last Documented On 4 2:28PM ; [facility] Patient education about a pr oper diet Last Documented On 4 2:28PM ; [facility] Discussed concerns about exe rcise : promote physical activity Last Documented On 4 2:28PM ; [facility] Not requesting contraception Last Documented On 4 2:28PM ; [facility] Discussed nutritional needs teach healthy choices including fruits and vegetables Last Documented On 3 2:01PM ; [facility] Patient education about a pr oper diet Last Documented On 3 2:01PM ; [facility] Discussed concerns about exe rcise : promote physical activity Last Documented On 3 2:01PM ; [facility] Discussed nutritional needs teach healthy choices including fruits and vegetables Last Documented On 3 10:41AM ; [facility] Patient education about a pr oper diet Last Documented On 3 10:41AM ; [facility] Discussed concerns about exe rcise : promote physical activity Last Documented On 3 10:41AM ; [facility] offered active and suppo rtive listening, normalized emotions and feelings, processed current stressors and explored coping and stress reducing skills. ~[facility] discussed coping skills to manage increased anxiety such as breathing techniques, mindfulness and meditation. [facility] discussed potential benefit in counseling and provided resource list. ~[facility] discussed healthy lifestyle changes to implement Last Documented On 3 3:16PM ; [facility] Discussed nutritional needs teach healthy choices including fruits and vegetables Last Documented On 3 11:08AM ; [facility] Patient education about a pr oper diet Last Documented On 3 11:08AM ; [facility] [facility] Discussed concerns about exe rcise : promote physical activity Last Documented On 3 11:08AM ; [facility] Discussed nutritional needs teach healthy choices including fruits and vegetables Last Documented On 2 11:44AM ; [facility] Patient education about a pr oper diet Last Documented On 2 11:44AM ; [facility] Discussed concerns about exe rcise : promote physical activity Last Documented On 2 11:44AM ; [facility] Problems sleeping Last Documented On 2 9:03AM ; [facility] Discussed nutritional needs teach healthy choices including fruits and vegetables Last Documented On 2 8:19AM ; [facility] Patient education about a pr oper diet Last Documented On 2 8:19AM ; [facility] Discussed concerns about exe rcise : promote physical activity Last Documented On 2 8:19AM ; [facility] Discussed nutritional needs teach healthy choices including fruits and vegetables Last Documented On 2 11:56AM ; [facility] Patient education about a pr oper diet Last Documented On 2 11:56AM ; [facility] Discussed concerns about exe rcise : promote physical activity Last Documented On 2 11:56AM ; [facility] Discussed nutritional needs teach healthy choices including fruits and vegetables Last Documented On 2 12:03PM ; [facility] Patient education about a pr oper diet Last Documented On 2 12:03PM ; [facility] Discussed concerns about exe rcise : promote physical activity Last Documented On 2 12:03PM ; [facility] Discussed current self-care methods/coping skills. ~Validated and normalized pt's feelings while assisting patient process recent events. ~Encouraged ongoing counseling. ~Discussed lifestyle changes to address chronic illness. ~Supported patient's personal health goals Last Documented On 2 9:32PM ; [facility] Discussed nutritional needs teach healthy choices including fruits and vegetables Last Documented On 2 2:12PM ; [facility] Patient education about a pr oper diet Last Documented On 2 2:12PM ; [facility] Discussed concerns about exe rcise : promote physical activity Last Documented On 2 2:12PM ; [facility] Discussed nutritional needs teach healthy choices including fruits and vegetables Last Documented On 1 4:05PM ; [facility] Patient education about a pr oper diet Last Documented On 1 4:05PM ; [facility] Discussed concerns about exe rcise : promote physical activity Last Documented On 1 4:05PM ; [facility] Discussed nutritional needs teach healthy choices including fruits and vegetables Last Documented On 1 7:23PM ; [facility] Patient education about a pr oper diet Last Documented On 1 7:23PM ; [facility] Patient education about a pr oper diet Last Documented On 1 7:45PM ; [facility] Patient education about meal planning Last Documented On 1 7:45PM ; [facility] Education about changing eat ing habits Last Documented On 1 7:45PM ; [facility] Patient education about high fiber diet Last Documented On 1 7:45PM ; [facility] Patient education about low fat diet Last Documented On 1 7:45PM ; [facility] Patient education about low cholesterol diet Last Documented On 1 7:45PM ; [facility] Patient education about low carbohydrate diet Last Documented On 1 7:45PM ; [facility] Discussed concerns about exe rcise : promote physical activity Last Documented On 1 7:23PM ; [facility] Discussed nutritional needs teach healthy choices including fruits and vegetables Last Documented On 1 4:54PM ; [facility] Patient education about a pr oper diet Last Documented On 1 4:54PM ; [facility] Patient education about a pr oper diet Last Documented On 1 5:25PM ; [facility] Patient education about meal planning Last Documented On 1 5:25PM ; [facility] Education about changing eat ing habits Last Documented On 1 5:25PM ; [facility] Patient education about high fiber diet Last Documented On 1 5:25PM ; [facility] Patient education about low fat diet Last Documented On 1 5:25PM ; [facility] Patient education about low cholesterol diet Last Documented On 1 5:25PM ; [facility] Patient education about low carbohydrate diet Last Documented On 1 5:25PM ; [facility] Patient education about high protein diet Last Documented On 1 5:25PM ; [facility] Discussed concerns about exe rcise : promote physical activity Last Documented On 1 4:54PM ; [facility]HP provided active listenin g, support and helped patient process through current symptoms and stressors related to family conflict. P/LAY UP OPERATOR discussed resources for housing and supports with patient. ~P discussed potential benefit of counseling and supports. Patient is willing to reconsider meeting with a provider at another agency than she has in the past as she does not want all of the same services Last Documented On 1 2:40PM ; [facility] Discussed nutritional needs teach healthy choices including fruits and vegetables Last Documented On 1 3:21PM ; [facility] Patient education about a pr oper diet Last Documented On 1 3:21PM ; [facility] Patient education about a pr oper diet Last Documented On 1 4:08PM ; [facility] Patient education about meal planning Last Documented On 1 4:08PM ; [facility] Education about changing eat ing habits Last Documented On 1 4:08PM ; [facility] Patient education about high fiber diet Last Documented On 1 4:08PM ; [facility] Patient education about low fat diet Last Documented On 1 4:08PM ; [facility] Patient education about low cholesterol diet Last Documented On 1 4:08PM ; [facility] Patient education about low carbohydrate diet Last Documented On 1 4:08PM ; [facility] Patient education about high protein diet Last Documented On 1 4:08PM ; [facility] Discussed concerns about exe rcise : promote physical activity Last Documented On 1 3:21PM ; [facility] Patient education about a pr oper diet Last Documented On 0 1:48PM ; [facility] Patient education about meal planning Last Documented On 0 1:48PM ; [facility] Education about changing eat ing habits Last Documented On 0 1:48PM ; [facility] Patient education about high fiber diet Last Documented On 0 1:48PM ; [facility] Patient education about low fat diet Last Documented On 0 1:48PM ; [facility] Patient education about low cholesterol diet Last Documented On 0 1:48PM ; [facility] Patient education about low carbohydrate diet Last Documented On 0 1:48PM ; [facility] Patient education about high protein diet Last Documented On 0 1:48PM ; [facility] BH offered active and suppo rtive listening, normalized emotions and feelings, processed current stressors and explored coping and stress reducing skills. ~[facility] attempted to discuss sleep hygiene strategies with patient including meditation, reducing caffeine use, increaing physical activity during the day as tolerated, and engaging in calming activities. Patient states that she has tried many things in the past and nothing has been sucessful. ~ Last Documented On 0 8:21AM ; [facility] Work Phone: Patient problem outcome Narrative Includes: Evaluations & Outcomes for active Goals No [facility]: reason for referral (narrative)No [facility] for [facility] Work Phone: reason for visit Narrative* Auth/Cert Specialty Diagnoses / Procedures Referred By Contac t Referred To Contact Diagnoses Chronic RLQ pain RLQ PAIN Procedures HI REMOVAL OF OVARY(S) OOPHORECTOMY LAPAROSCOPIC-POSSIBLE LAPAROTOMY Geoff Chu MD [address] [address] [employer] [id number] [place] [id number] Referral ID Status Reason Start Date Expiration Date Visits Re quested Visits Authorized [id number] 1 1 [employer] Phone: reason for visit Narrative* Auth/Cert Specialty Diagnoses / Procedures [facility] Referred To Contact [employer] [id number] [place] [address] Referral ID Status Reason Start Date Expiration Date Visits Re quested Visits Authorized [id number] 1 1 [employer] Phone: reason for visit Narrative* Treatment Plan and Therapy Plan (Routine) - Open Specialty Diagnoses / Procedures [facility] Referred To Contact Diagnoses Dog bite, initial encounter Nasreen Pennington PA-C [address] [place] [phone] [facility] [address] [place] [address] Referral ID Status Reason Start Date Expiration Date Visits Re quested Visits Authorized [id number] Open 03/11/2023 03/10/2024 1 1 KURTIS MEJIA XIN[employer] of systems Narrative - Reported Review of Systems not supported for this document type No Review of Systems [facility] Work Phone: History of Past Illness Name Date of Onset Comments Hypertension Anxiety and depression Irritable bowel syndrome wit h both constipation and diarrhea GERD (gastroesophageal reflux disease) Visit for screening mammogram Mar 23 2017 2:57PM Encounter for wellness examination Mar 23 2017 2: 57PM Essential hypertension Mar 23 2017 2:57PM BMI 30.0-30.9,adult Mar 23 2017 2:57PM Encounter for routine laboratory testing Sep 2 017 2:57PM Hypertriglyceridemia Oct 05 2017 11:18AM BMI 31.0-31.9,adult Oct 05 2017 11:18AM Breast pain, left Oct 05 2017 11:18AM History of abnormal mammogram Oct 05 2017 11:18A M Fatigue Oct 05 2017 11:18AM Sleep apnea Oct 05 2017 11:18AM Screening for diabetes mellitus Oct 15 2017 11:1 7AM Hypertension Oct 15 2017 11:17AM BRANDON (generalized anxiety disorder) Oct 15 2017 1 1:17AM Adult BMI 31.0-31.9 kg/sq m Oct 15 2017 11:17AM Tobacco abuse Nov 12 2017 2:22PM Hypokalemia Jan 20 2018 3:22PM BMI 31.0-31.9,adult Jan 20 2018 3:22PM Name Date of Onset Comments Hypertension Anxiety and depression Irritable bowel syndrome wit h both constipation and diarrhea GERD (gastroesophageal reflux disease) Visit for screening mammogram Mar 23 2017 2:57PM Encounter for wellness examination Mar 23 2017 2: 57PM Essential hypertension Mar 23 2017 2:57PM BMI 30.0-30.9,adult Mar 23 2017 2:57PM Encounter for routine laboratory testing Mar 23 2 017 2:57PM Hypertriglyceridemia Oct 05 2017 11:18AM BMI 31.0-31.9,adult Oct 05 2017 11:18AM Breast pain, left Oct 05 2017 11:18AM History of abnormal mammogram Oct 05 2017 11:18A M Fatigue Oct 05 2017 11:18AM Sleep apnea Oct 05 2017 11:18AM Screening for diabetes mellitus Oct 15 2017 11:1 7AM Hypertension Oct 15 2017 11:17AM BRANDON (generalized anxiety disorder) Oct 15 2017 1 1:17AM Adult BMI 31.0-31.9 kg/sq m Oct 15 2017 11:17AM Tobacco abuse Nov 12 2017 2:22PM Hypokalemia Jan 20 2018 3:22PM BMI 31.0-31.9,adult Jan 20 2018 3:22PM Hypertriglyceridemia Jan 20 2018 3:22PM Name Date of Onset Comments Hypertension Anxiety and depression Irritable bowel syndrome wit h both constipation and diarrhea GERD (gastroesophageal reflux disease) Visit for screening mammogram Mar 23 2017 2:57PM Encounter for wellness examination Mar 23 2017 2: 57PM Essential hypertension Mar 23 2017 2:57PM BMI 30.0-30.9,adult Mar 23 2017 2:57PM Encounter for routine laboratory testing Mar 23 2:57PM Hypertriglyceridemia Oct 05 2017 11:18AM BMI 31.0-31.9,adult Oct 05 2017 11:18AM Breast pain, left Oct 05 2017 11:18AM History of abnormal mammogram Oct 05 2017 11:18A M Fatigue Oct 05 2017 11:18AM Sleep apnea Oct 05 2017 11:18AM Screening for diabetes mellitus Oct 15 2017 11:1 7AM Hypertension Oct 15 2017 11:17AM BRANDON (generalized anxiety disorder) Oct 15 2017 1 1:17AM Adult BMI 31.0-31.9 kg/sq m Oct 15 2017 11:17AM Tobacco abuse Nov 12 2017 2:22PM Hypokalemia Jan 20 2018 3:22PM BMI 31.0-31.9,adult Jan 20 2018 3:22PM Hypertriglyceridemia Jan 20 2018 3:22PM Hyperlipidemia Jan 25 2018 10:25AM Assessments Diagnosis Acute nonintractable headache, unspecified headache type- Primary Perioral numbness Disturbance of skin sensation Diagnosis Stroke-like symptoms- Primary Other symptoms involving nervous and musculoskeletal systems Complicated migraine Migraine with aura, without mention of intractable migraine without mention of status migrainosus Right lower quadrant abdominal pain Abdominal pain, right lower quadrant Diagnosis Nausea vomiting and diarrhea- Primary Nausea with vomiting Diagnosis Benign paroxysmal positional vertigo of left ear- Primary Findings Encounter Date Anxiety disorder NOS [facility] Short LIS 10/20/[address] [facility] Short LIS 10/20/2019 Diagnosis Stroke-like symptoms Other symptoms involving nervous and musculoskeletal systems TIA (transient ischemic attack) Unspecified transient cerebral ischemia Acute nonintractable headache Paresthesias Disturbance of skin sensation Diagnosis Arm numbness Disturbance of skin sensation Acute coronary syndrome (HCC) Intermediate coronary syndrome Diagnosis Acute coronary syndrome (HCC) Intermediate coronary syndrome Diagnosis S/P PTCA (percutaneous transluminal coronary angioplasty) Postsurgical percutaneous transluminal coronary angioplasty status Diagnosis Women's annual routine gynecological examination Diagnosis Hot flashes Symptomatic menopausal or female climacteric states Diagnosis Vulvar cyst Other specified noninflammatory disorder of vulva and perineum Diagnosis Laceration of right little finger without foreign body without damage to nail, initial encounter Findings Encounter Date Body mass index Telemedicine Establi sted Patient with Ena Fung CNP 05/02/2020 Exposure to a viral disease Telemedicine Establisted Patient with Ena Fung CNP 05/02/2020 Obesity due to excess calories Telemedic ine Establisted Patient with Ena Fung SUPERINTENDENT PRESSURE 05/02/2020 Anxiety disorder NOS [facility] with Oliva Short LISWS 10/20/2019 Depressive disorder Telebehavioral He alth with Oliva Short LISWS 10/20/2019 Findings Encounter Date Exposure to a viral disease Telemedicine Establisted Patient with Tao Reece SUPERINTENDENT PRESSURE 06/04/2020 Exposure to biological agent suspected Telemedicine Establisted Patient with Tao Reece SUPERINTENDENT PRESSURE 06/04/2020 Body mass index Telemedicine Establi sted Patient with Ena Fung SUPERINTENDENT PRESSURE 05/02/2020 Exposure to a viral disease Telemedicine Establisted Patient with Ena Fung SUPERINTENDENT PRESSURE 05/02/2020 Obesity due to excess calories Telemedic ine Establisted Patient with Ena Fung SUPERINTENDENT PRESSURE 05/02/2020 Anxiety disorder NOS Telebehavioral H ealth with Oliva Short LISWS 10/20/2019 Depressive disorder Telebehavioral He alth with Oliva Short LISWS 10/20/2019 Diagnosis Chest pain, unspecified type Diagnosis Atypical chest pain Other chest pain Palpitations ASHD (arteriosclerotic heart disease) Coronary atherosclerosis of unspecified type of vessel, ute or graft S/P PTCA (percutaneous transluminal coronary angioplasty) Postsurgical percutaneous transluminal coronary angioplasty status Essential hypertension Unspecified essential hypertension Family history of premature CAD Family history of ischemic heart disease Tobacco abuse counseling Counseling on substance use and abuse Mixed hyperlipidemia MATT (obstructive sleep apnea) Obstructive sleep apnea (adult) (pediatric) Obesity (BMI 30.0-34.9) Obesity, unspecified Diagnosis Atypical chest pain Other chest pain Palpitations ASHD (arteriosclerotic heart disease) Coronary atherosclerosis of unspecified type of vessel, ute or graft S/P PTCA (percutaneous transluminal coronary angioplasty) Postsurgical percutaneous transluminal coronary angioplasty status Essential hypertension Unspecified essential hypertension Family history of premature CAD Family history of ischemic heart disease Tobacco abuse counseling Counseling on substance use and abuse Mixed hyperlipidemia MATT (obstructive sleep apnea) Obstructive sleep apnea (adult) (pediatric) Obesity (BMI 30.0-34.9) Obesity, unspecified Diagnosis Abdominal pain, right lower quadrant- Primary Non-intractable vomiting with nausea, unspecified vomiting type Abdominal pain Abdominal pain, unspecified site Essential hypertension Unspecified essential hypertension Findings Encounter Date Anxiety disorder NOS Established Ashley ent with Oliva Short LISWS 09/04/2020 Depression Established Patie nt with Oliva Short LISWS 09/04/2020 Diabetes Risk Test Score was three score 09/04/2020 Medical Established Patient with Ena Fung SUPERINTENDENT PRESSURE 09/04/2020 Obesity due to excess calories Medical E stablished Patient with Ena Fung SUPERINTENDENT PRESSURE 09/04/2020 Z68.34 - Body mass index [BM I] 34.0-34.9, adult Medical Established Patient with Ena Fung SUPERINTENDENT PRESSURE 09/04/2020 Exposure to a viral disease Telemedicine Establisted Patient with Tao Reece [facility] 06/04/2020 Exposure to biological agent suspected Telemedicine Establisted Patient with Tao Reece [facility] 06/04/2020 Body mass index Telemedicine Establi sted Patient with Ena Fung [facility] 05/02/2020 Exposure to a viral disease Telemedicine Establisted Patient with Ena Fung [facility] 05/02/2020 Obesity due to excess calories Telemedic ine Establisted Patient with Ena Fung [facility] 05/02/2020 Anxiety disorder NOS [facility] Telebehavioral H ealth with Oliva Short LISWS 10/20/2019 Depressive disorder BH Telebehavioral He alth with Oliva Short LISWS 10/20/2019 Diagnosis Pre-op testing Preoperative examination, unspecified Diagnosis Right sided abdominal pain Abdominal pain, unspecified site Diagnosis Preoperative testing Preoperative examination, unspecified Advance Directives No Advanced Directives Records FoundDocuments on File Type Date Recorded 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 Advance Directives and Living Will Power of Police Liaison Latest Code Status on File Code Status Date Activated Date Inactivated Comments Full Code 12/02/2018 4:51 PM 12/04/2018 3:36 PM Full Code 10/21/2018 5:47 PM 10/22/2018 8:19 PM Full Code 10/21/2018 12:44 PM 10/21/2018 5:47 PM Full Code 06/07/2018 11:32 AM 06/07/2018 7:33 PM Full Code 06/07/2018 11:32 AM 06/07/2018 11:32 AM Latest Code Status on File Code Status Date Activated Date Inactivated Comments Full Code 04/20/2019 4:46 AM Full Code 04/20/2019 4:45 AM 04/20/2019 4:46 AM Full Code 12/02/2018 4:51 PM 12/04/2018 3:36 PM Latest Code Status on File Code Status Date Activated Date Inactivated Comments Full Code 04/20/2019 4:46 AM 04/21/2019 7:34 PM Documents on File Type Date Recorded 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 Advance Directives and Living Will Power of Police Liaison Latest Code Status on File Code Status Date Activated Date Inactivated Comments Full Code 10/09/2019 9:27 AM Full Code 04/20/2019 4:46 AM 04/21/2019 7:34 PM Full Code 04/20/2019 4:45 AM 04/20/2019 4:46 AM Full Code 12/02/2018 4:51 PM 12/04/2018 3:36 PM Full Code 10/21/2018 5:47 PM 10/22/2018 8:19 PM Latest Code Status on File Code Status Date Activated Date Inactivated Comments Full Code 12/29/2019 8:25 AM Full Code 12/29/2019 7:36 AM 12/29/2019 8:25 AM Full Code 12/28/2019 3:14 PM 12/29/2019 7:36 AM Full Code 10/09/2019 9:27 AM 10/10/2019 3:14 PM Full Code 04/20/2019 4:46 AM 04/21/2019 7:34 PM Latest Code Status on File Code Status Date Activated Date Inactivated Comments Full Code 12/29/2019 8:23 PM Full Code 12/29/2019 8:25 AM 12/29/2019 8:22 PM Full Code 12/29/2019 7:36 AM 12/29/2019 8:25 AM Full Code 12/28/2019 3:14 PM 12/29/2019 7:36 AM Full Code 10/09/2019 9:27 AM 10/10/2019 3:14 PM Latest Code Status on File Code Status Date Activated Date Inactivated Comments Full Code 12/30/2019 10:52 AM Full Code 12/29/2019 8:23 PM 12/30/2019 10:51 AM Latest Code Status on File Code Status Date Activated Date Inactivated Comments Full Code 12/30/2019 10:52 AM 12/30/2019 1:42 PM Full Code 12/29/2019 8:23 PM 12/30/2019 10:51 AM Full Code 12/29/2019 8:25 AM 12/29/2019 8:22 PM Documents on File Type Date Recorded 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 ACP-Advance Directive ACP-Power of Police Liaison Documents on File Type Date Recorded 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 ACP-Advance Directive ACP-Power of Police Liaison Latest Code Status on File Code Status Date Activated Date Inactivated Comments Full Code 12/30/2019 10:52 AM 12/30/2019 1:42 PM Latest Code Status on File Code Status Date Activated Date Inactivated Comments Full Code 08/27/2020 12:39 PM Full Code 12/30/2019 10:52 AM 12/30/2019 1:42 PM Latest Code Status on File Code Status Date Activated Date Inactivated Comments Full Code 08/27/2020 12:39 PM 08/29/2020 5:02 PM Latest Code Status on File Code Status Date Activated Date Inactivated Comments Full Code 09/26/2020 2:12 PM 09/26/2020 7:27 PM Full Code 09/26/2020 1:43 PM 09/26/2020 2:12 PM Full Code 08/27/2020 12:39 PM 08/29/2020 5:02 PM Latest Code Status on File Code Status Date Activated Date Inactivated Comments Full Code 01/02/2021 11:32 AM Full Code 09/26/2020 2:12 PM 09/26/2020 7:27 PM Latest Code Status on File Code Status Date Activated Date Inactivated Comments Full Code 01/02/2021 11:32 AM 01/03/2021 7:19 PM Latest Code Status on File Code Status Date Activated Date Inactivated Comments Full Code 06/19/2021 3:18 PM Full Code 06/19/2021 2:11 PM 06/19/2021 3:18 PM Full Code 01/02/2021 11:32 AM 01/03/2021 7:19 PM Full Code 09/26/2020 2:12 PM 09/26/2020 7:27 PM Full Code 09/26/2020 1:43 PM 09/26/2020 2:12 PM Latest Code Status on File Code Status Date Activated Date Inactivated Comments Full Code 06/19/2021 3:18 PM 06/19/2021 7:38 PM Full Code 06/19/2021 2:11 PM 06/19/2021 3:18 PM Full Code 01/02/2021 11:32 AM 01/03/2021 7:19 PM Latest Code Status on File Code Status Date Activated Date Inactivated Comments Full Code 06/19/2021 3:18 PM 06/19/2021 7:38 PM Latest Code Status on File Code Status Date Activated Date Inactivated Comments Full Code 08/20/2021 3:58 PM 08/21/2021 3:27 PM Full Code 08/20/2021 7:42 AM 08/20/2021 3:56 PM Full Code 06/19/2021 3:18 PM 06/19/2021 7:38 PM Latest Code Status on File Code Status Date Activated Date Inactivated Comments Full Code 10/06/2021 10:34 PM Full Code 08/20/2021 3:58 PM 08/21/2021 3:27 PM Full Code 08/20/2021 7:42 AM 08/20/2021 3:56 PM Full Code 06/19/2021 3:18 PM 06/19/2021 7:38 PM Latest Code Status on File Code Status Date Activated Date Inactivated Comments Full Code 10/06/2021 10:34 PM 10/07/2021 6:33 PM Latest Code Status on File Code Status Date Activated Date Inactivated Comments Full Code 10/22/2021 5:30 PM Full Code 10/20/2021 1:44 AM 10/22/2021 5:29 PM Full Code 10/06/2021 10:34 PM 10/07/2021 6:33 PM Latest Code Status on File Code Status Date Activated Date Inactivated Comments Full Code 10/30/2021 11:52 AM Full Code 10/22/2021 5:30 PM 10/23/2021 11:43 AM Full Code 10/20/2021 1:44 AM 10/22/2021 5:29 PM Full Code 10/06/2021 10:34 PM 10/07/2021 6:33 PM Full Code 08/20/2021 3:58 PM 08/21/2021 3:27 PM Latest Code Status on File Code Status Date Activated Date Inactivated Comments Full Code 10/30/2021 11:52 AM 10/30/2021 4:20 PM Latest Code Status on File Code Status Date Activated Date Inactivated Comments Full Code 11/06/2021 11:44 AM Full Code 11/06/2021 9:22 AM 11/06/2021 11:44 AM Full Code 10/30/2021 11:52 AM 10/30/2021 4:20 PM Latest Code Status on File Code Status Date Activated Date Inactivated Comments Full Code 11/06/2021 11:44 AM 11/07/2021 2:50 AM Full Code 11/06/2021 9:22 AM 11/06/2021 11:44 AM Full Code 10/30/2021 11:52 AM 10/30/2021 4:20 PM Full Code 10/22/2021 5:30 PM 10/23/2021 11:43 AM Directive Pat Aware Third Libertarian Effective Date Reviewed Sta tus Advance Care Planning Yes 11/26/2021 Current and Verified Note: Discussed with patient about care planning in the future. Gave patient informational packet and advised patient to bring back at next appointment. Latest Code Status on File Code Status Date Activated Date Inactivated Comments Full Code 11/06/2021 11:44 AM 11/07/2021 2:50 AM Latest Code Status on File Code Status Date Activated Date Inactivated Comments Full Code 08/20/2022 4:06 PM Full Code 08/20/2022 3:38 PM 08/20/2022 4:06 PM Full Code 11/06/2021 11:44 AM 11/07/2021 2:50 AM Latest Code Status on File Code Status Date Activated Date Inactivated Comments Full Code 08/20/2022 4:06 PM 08/20/2022 8:14 PM Code Status History Code Status Date Activated Date Inactivated Comments Full Code 08/20/2022 3:38 PM 08/20/2022 4:06 PM Full Code 11/06/2021 11:44 AM 11/07/2021 2:50 AM Full Code 11/06/2021 9:22 AM 11/06/2021 11:44 AM Full Code 10/30/2021 11:52 AM 10/30/2021 4:20 PM Latest Code Status on File Code Status Date Activated Date Inactivated Comments Full Code 08/20/2022 4:06 PM 08/20/2022 8:14 PM Code Status History Code Status Date Activated Date Inactivated Comments Full Code 08/20/2022 3:38 PM 08/20/2022 4:06 PM Full Code 11/06/2021 11:44 AM 11/07/2021 2:50 AM Full Code 11/06/2021 9:22 AM 11/06/2021 11:44 AM Full Code 10/30/2021 11:52 AM 10/30/2021 4:20 PM Latest Code Status on File Code Status Date Activated Date Inactivated Comments Full Code 01/17/2023 5:55 PM 01/18/2023 5:33 PM Code Status History Code Status Date Activated Date Inactivated Comments Full Code 08/20/2022 4:06 PM 08/20/2022 8:14 PM Full Code 08/20/2022 3:38 PM 08/20/2022 4:06 PM Full Code 11/06/2021 11:44 AM 11/07/2021 2:50 AM Full Code 11/06/2021 9:22 AM 11/06/2021 11:44 AM Healthcare Agents on File Name Relationship Healthcare Agent Relationshi p Communication Layo Gardner Child Primary Decision Maker [address] [phone] (Home) Healthcare Agents on File Name Relationship Healthcare Agent Relationshi p Communication Layo Gardner Child Primary Decision Maker [address] [phone] (Home) Latest Code Status on File Code Status Date Activated Date Inactivated Comments Full Code 01/17/2023 5:55 PM 01/18/2023 5:33 PM Code Status History Code Status Date Activated Date Inactivated Comments Full Code 08/20/2022 4:06 PM 08/20/2022 8:14 PM Full Code 08/20/2022 3:38 PM 08/20/2022 4:06 PM Full Code 11/06/2021 11:44 AM 11/07/2021 2:50 AM Full Code 11/06/2021 9:22 AM 11/06/2021 11:44 AM Healthcare Agents on File Name Relationship Healthcare Agent Relationshi p Communication Layo Gardner Child Primary Decision Maker [facility] [phone] (Home) Latest Code Status on File Code Status Date Activated Date Inactivated Comments Full Code 05/06/2023 12:45 PM 05/06/2023 4:58 PM Code Status History Code Status Date Activated Date Inactivated Comments Full Code 05/06/2023 11:25 AM 05/06/2023 12:45 PM Full Code 04/23/2023 8:11 PM 04/24/2023 1:28 PM Full Code 01/17/2023 5:55 PM 01/18/2023 5:33 PM Full Code 08/20/2022 4:06 PM 08/20/2022 8:14 PM Healthcare Agents on File Name Relationship Healthcare Agent Relationshi p Communication Layo Gardner Child Primary Decision Maker Healthcare Agents on File Name Relationship Healthcare Agent Relationshi p Communication Layo Gardner Child Primary Decision Maker Latest Code Status on File Code Status Date Activated Date Inactivated Comments Full Code 08/16/2023 7:28 PM 08/18/2023 8:06 PM Code Status History Code Status Date Activated Date Inactivated Comments Full Code 05/06/2023 12:45 PM 05/06/2023 4:58 PM Full Code 05/06/2023 11:25 AM 05/06/2023 12:45 PM Full Code 04/23/2023 8:11 PM 04/24/2023 1:28 PM Full Code 01/17/2023 5:55 PM 01/18/2023 5:33 PM Latest Code Status on File Code Status Date Activated Date Inactivated Comments Full Code 08/16/2023 7:28 PM 08/18/2023 8:06 PM Code Status History Code Status Date Activated Date Inactivated Comments Full Code 05/06/2023 12:45 PM 05/06/2023 4:58 PM Full Code 05/06/2023 11:25 AM 05/06/2023 12:45 PM Full Code 04/23/2023 8:11 PM 04/24/2023 1:28 PM Full Code 01/17/2023 5:55 PM 01/18/2023 5:33 PM Date Activated Date Inactivated Comments 08/16/2023 7:28 PM 08/18/2023 8:06 PM Date Activated Date Inactivated Comments 05/06/2023 12:45 PM 05/06/2023 4:58 PM Date Activated Date Inactivated Comments 05/06/2023 11:25 AM 05/06/2023 12:45 PM Date Activated Date Inactivated Comments 04/23/2023 8:11 PM 04/24/2023 1:28 PM Date Activated Date Inactivated Comments 01/17/2023 5:55 PM 01/18/2023 5:33 PM Discharge Instructions * Attachments The following attachments cannot be sent through Care Everywhere. * Migraine Headache (Spanish) * Migraine Headache: Recurring (Spanish) documented in this encounter* Instructions* Mariana Adames, DO - 06/08/2019 Please take Zofran as needed to help with nausea, eat food that is gentle on your stomach includingbananas, rice applesauce and toast. Please eat this diet over the next 24 hours and then okay to gradually add back in your normal foods that you eat. Take small sips of dilute fluids over the next 24 hours spaced out. Follow-up with your primary care provider in 2 days. Return to the ER if you develop any worsening vomiting that is not stopping. Any fevers, or abdominal pain * Attachments The following attachments cannot be sent through Care Everywhere. * Nausea and Vomiting (Spanish) documented in this encounter* Attachments The following attachments cannot be sent through Care Everywhere. * BPPV (Benign Paroxysmal Positional Vertigo) (Spanish) documented in this encounter* Attachments The following attachments cannot be sent through Care Everywhere. * PCI (PERCUTANEOUS CORONARY INTERVENTION): POST-OP (BENGALI) documented in this encounter* Instructions* Jose Juan Ortega APRN - CNP - 04/28/2020 Return to the emergency department for worsening symptoms. Follow-up with your primary care provider for suture removal and 7 to 10 days. * Attachments The following attachments cannot be sent through Care Everywhere. * Lacerations: Stitches (Spanish) documented in this encounter* Instructions* Jose Juan Ortega APRN - CNP - 06/17/2020 Return to the emergency department for worsening symptoms. Follow-up with your primary care provider. * Attachments The following attachments cannot be sent through Care Everywhere. * Chest Pain (Spanish) documented in this encounter* Discharge Instr - Activity* Crystal Connolly RN - 08/29/2020 2:09 PM EST As tolerated * Discharge Instr - Diet* Crystal Connolly RN - 08/29/2020 2:09 PM EST ? Good nutrition is important when healing from an illness, injury, or surgery. Follow any nutrition recommendations given to you during your hospital stay. ? If you were given an oral nutrition supplement while in the hospital, continue to take this supplement at home. You can take it with meals, in-between meals, and/or before bedtime. These supplements can be purchased at most local grocery stores, pharmacies, and [email or web address]. ? If you have any questions about your diet or nutrition, call the hospital and ask for the dietitian. General diet * Attachments The following attachments cannot be sent through Care Everywhere. * Abdominal Pain (Spanish) documented in this encounter History of Present Illness * Blaire Shukla, EFFIE - SUPERINTENDENT PRESSURE - 04/21/2019 8:39 AM EDT NEUROLOGY INPATIENT PROGRESS NOTE 04/21/2019 Subjective: Mike Sharif is a 43 y.o. female admitted on 04/19/2019. Chart reviewed. Discussed with RN. Patient examined. She reports resolution of her headache, numbness/tingling to her left side, and also resolution of her abdominal pain. She has no new complaints at time of exam, would like to discharge home today. Tolerating Elavil without problems. HPI: Briefly, this is a 43 y.o. female with H/O anxiety, depression, hypertension, breast/uterine/cervical cancer, CAD status post stenting, who was admitted as a transfer from [facility] on 04/19/2019 with complaints of left-sided weakness and numbness. She reported an associated right sided headache, 7/10 in intensity, with no associated photophobia, phonophobia. She did report associated nausea. She has had a history of similar events and was told they were TIAs in the past. CT head unremarkable. CTA head and neck with bilateral cervical ICA beating concerning for vasculitis or fibromuscular dysplasia. On arrival to [facility] ED she also reported right lower quadrant pain and had CT abdomen which came back negative. MRA head normal. She was treated with Depacon 1 g IVPB as well as magnesium sulfate 1 g IVPB every 8 hours with improvement of her headache. She was also placed onSolu-Medrol 200 mg IVPB every 8 hours x6 doses and started on Elavil nightly as a prophylactic medication. GI was consulted due to her abdominal pain and did not feel as though this pain was GI related. No current facility-administered medications on file prior to encounter. Current Outpatient Medications on File Prior to Encounter Medication Sig Dispense Refill amLODIPine (NORVASC) 2.5 MG tablet Take 1 tablet by mouth daily 90 tablet 3 clopidogrel (PLAVIX) 75 MG tablet Take 1 tablet by mouth daily 90 tablet 3 PARoxetine (PAXIL) 40 MG tablet Take 1 tablet by mouth every morning 30 tablet 3 pantoprazole (PROTONIX) 40 MG tablet Take 1 tablet by mouth 2 times daily (before meals) (Patient not taking: Reported on 02/23/2019) 60 tablet 1 nitroGLYCERIN (NITROSTAT) 0.[address] 1 tablet under the tongue every 5 minutes as needed for Chest pain up to max of 3 total doses. If no relief after 1 dose, call 911. 25 tablet 3 fenofibrate (TRICOR) 54 MG tablet Take 54 mg by mouth daily s [facility] pharmacy: Please dispense generic fenofibrate unless prescriber denote ranolazine (RANEXA) 500 MG extended release tablet Take 1 tablet by mouth 2 times daily (Patient not taking: Reported on 02/23/2019) 180 tablet 3 atorvastatin (LIPITOR) 40 MG tablet Take 1 tablet by mouth nightly 90 tablet 3 metoprolol succinate (TOPROL XL) 25 MG extended release tablet Take 1 tablet by mouth daily 90 tablet 3 aspirin 81 MG EC tablet Take 1 tablet by mouth daily 30 tablet 3 Allergies: Mike Sharif is allergic to cephalosporins. Past Medical History: Diagnosis Date Anxiety Cancer (HCC) breast, uterine, cervical Depression GERD (gastroesophageal reflux disease) H/O echocardiogram 06/07/2018 EF 60%. Mildly incrased LV wall thickness. History of 2D echocardiogram LTD 11/25/2018 normal LV size and systolic function. No definite specific wall motion abnormalities were identified. No pericardial effusion. History of cardiovascular stress test 05/02/14 correlates with an intermediate risk for CAD, Pedraza treadmill score is 0 History of echocardiogram 05/02/14 Relatively NL, EF 65% History of echocardiogram 06/07/2018 EF 60%. Mildly increased LV wall thickness. Hypertension IBS (irritable bowel syndrome) Small vessel disease (HCC) TIA (transient ischemic attack) 2000 Tobacco abuse Past Surgical History: Procedure Laterality Date BREAST LUMPECTOMY Left 2003 CARDIAC CATHETERIZATION CARDIAC CATHETERIZATION Left 06/07/2018 via right radial approach/ Mikaela Webb/ Dr. Ronan Rodriguez CHOLECYSTECTOMY 2007 COLONOSCOPY 2010 history of polyps COLONOSCOPY 06/17/2017 HYSTERECTOMY MASTOID SURGERY HI COLON CA SCRN NOT HI RSK IND N/A 06/17/2017 COLONOSCOPY performed by Johanne Sherman DO at [facility] OR SPINE SURGERY lower back UPPER GASTROINTESTINAL ENDOSCOPY N/A 12/03/2018 EGD ESOPHAGOGASTRODUODENOSCOPY performed by Matt Harris MD at [facility] OR Social History: Mike Sharif reports that she has been smoking cigarettes. She has a 10.00 pack-year smoking history. She has never used smokeless tobacco. She reports that she drinks alcohol. She reports that she does not use drugs. Family History Problem Relation Age of Onset Heart Disease Mother Diabetes Mother High Blood Pressure Mother Diabetes Father High Blood Pressure Father Stroke Father Diabetes Sister Kidney Disease Sister High Blood Pressure Sister Heart Disease Maternal Grandmother Heart Disease Maternal Grandfather Cancer Maternal Grandfather Heart Disease Paternal Grandmother Heart Disease Paternal Grandfather Cancer Paternal Grandfather Cancer Brother Other Brother liver disease Objective: BP 127/78 Pulse 74 Temp 98.5 F (36.9 C) (Oral) Resp 15 Ht 5' 4 (1.626 m) Wt 190 lb 12.8 oz (86.5 kg) SpO2 98% BMI 32.75 kg/m Blood pressure range: Systolic (24hrs), Av , Min:111 , Max:127 ; Diastolic (24hrs), Av, Min:56, Max:78 Review of Systems: Constitutional Negative for fever and chills HEENT Negative for ear discharge, ear pain, nosebleed Eyes Negative for photophobia, pain and discharge Respiratory Negative for hemoptysis and sputum Cardiovascular Negative for orthopnea, claudication and PND Gastrointestinal Negative for abdominal pain, diarrhea, blood in stool Musculoskeletal Negative for joint pain, negative for myalgia Skin Negative for rash or itching Endo/heme/allergies Negative for polydipsia, environmental allergy Psychiatric/behavioral Negative for suicidal ideation. Patient is not anxious NEUROLOGIC EXAMINATION GENERAL Appears comfortable and in no distress HEENT NC/ AT NECK Supple MENTAL STATUS: Alert, oriented, intact memory, no confusion, normal speech, normal language, no hallucination or delusion CRANIAL NERVES: II - Visual fung intact to confrontation III,IV, - EOMs full, no afferent defect, no GILBERT, no ptosis V - Normal facial sensation VII - Normal facial symmetry VIII - Intact hearing IX,X - Symmetrical palate XI - Symmetrical shoulder shrug XII - Midline tongue, no atrophy MOTOR FUNCTION: significant for good strength of grade 5/5 in bilateral proximal and distal muscle groups of both upper and lower extremities with normal bulk, normal tone and no involuntary movements, no tremor SENSORY FUNCTION: Normal touch, normal pin CEREBELLAR FUNCTION: Intact fine motor control over upper limbs REFLEX FUNCTION: Symmetric and brisk, no perverted reflex, no Babinski sign. Unsustained clonus bilaterally STATION and GAIT Steady gait Data: Lab Results: CBC: Recent Labs 04/19/19 1352 04/19/19 2240 04/20/19 0953 WBC 7.9 9.0 15.1* HGB 12.3 13.0 13.0 PLT 261 285 240 BMP: Recent Labs 04/19/19 1352 04/19/19 2240 04/20/19 0953 NA 141 137 137 K 3.3* 3.5* 4.4 CL 102 102 102 CO2 22 22 18* BUN 10 9 9 CREATININE 0.59 0.53 0.52 GLUCOSE 115* 144* 146* Lab Results Component Value Date CHOL 235 (H) 02/06/2019 LDLCHOLESTEROL 02/06/2019 HDL 35 (L) 02/06/2019 TRIG 517 (H) 02/06/2019 ALT 43 (H) 04/19/2019 AST 29 04/19/2019 TSH 2.69 11/05/2016 INR 1.0 04/19/2019 LABA1C 5.5 04/20/2019 LABMICR CANNOT BE CALCULATED 10/27/2014 [id number] 11/05/2016 Diagnostic data reviewed: CT HEAD (04/19/2019)- No acute intracranial abnormality. CTA head and neck (04/19/2019 and (- Mild beading of both cervical ICAs which may reflect FMD or arteritis. No flow limiting stenosis or large vessel occlusion visualized within the head or neck. BRAIN MRI (04/20/2019)- Unremarkable MRI of the brain. Impression: -Complicated migraine headache, resolved -Abdominal pain; GI consulted and doubts this is GI related, they have signed off. Abdominal pain is resolved -History of CAD Plan: -Will plan for steroid taper starting tomorrow -Continue Elavil 25 mg nightly -Patient continues on aspirin 81 mg, Plavix 25 mg, Lipitor 40 mg daily -Internal medicine following; appreciate recs -DVT prophylaxis; on Lovenox -Discharge planning; given resolution of all symptoms and non focal exam the patient will be discharged home later this afternoon * Krysten Lindsey MD - 04/21/2019 6:42 AM EDT [facility] Internal Medicine Teaching Residency Program Inpatient Daily Progress Note Patient: Mike Sharif Date of : 1975 Acct: [id number] Room: Admit date: 04/19/2019 Today's date: 04/21/19 Number of days in the hospital: 2 SUBJECTIVE Admitting Diagnosis: <principal problem not specified> CC: Medical Assesment Pt examined at bedside. Chart & results reviewed. She says she is not having any headaches Her blood pressure has been stable She does not have any chest pain, nausea or vomiting No other complaints overnight ROS: Constitutional: negative for chills, fevers, sweats Respiratory: negative for cough, dyspnea on exertion, hemoptysis, shortness of breath, wheezing Cardiovascular: negative for chest pain, chest pressure/discomfort, lower extremity edema, palpitations Gastrointestinal: negative for abdominal pain, constipation, diarrhea, nausea, vomiting Neurological: negative for dizziness, headache BRIEF HISTORY The patient is a pleasant 43 y.o. female presents with a chief complaint of with headache and numbness in the left face and arm. The day before she went to bed with an occipital headache, she awoke from sleep with a left arm numbness of left face arm and leg. The headache increased in intensity to a 9/10 as per the patient. She was brought to [facility], CT head was done which was normal and she was transferred to [facility]. A CTA head and neck showed beading cervical ICA likely fibromuscular dysplasia as per neurology. She has a history of migraines with one episode of hemisensory loss about 18yr ago. We were consulted for medical assessment of the patient. She has a history of Acute coronary syndrome s/p PTCA, she takes plavix 75 mg and Aspirin 81 mg . She is hypertensive on Norvasc 2.5 mg and toprol XL 25 mg. For hyperlipidemia she is on lipitor. On this admission she did not complain of any chest pain, palpitations, shortness of breath or diaphoresis. She does not have any cough, fevers or chills. OBJECTIVE Vital Signs: BP 127/78 Pulse 74 Temp 98.5 F (36.9 C) (Oral) Resp 15 Ht 5' 4 (1.626 m) Wt 190 lb 12.8 oz (86.5 kg) SpO2 98% BMI 32.75 kg/m Temp (24hrs), Av.1 F (36.7 C), Min:97.6 F (36.4 C), Max:98.5 F (36.9 C) No intake/output data recorded. Physical Exam: Constitutional: This is a well developed, well nourished, 18.5-24.9 - Normal 43 y.o. year old female who is alert, oriented, cooperative and in no apparent distress. Head:normocephalic and atraumatic. EENT: PERRLA. No conjunctival injections. Septum was midline, mucosa was without erythema, exudatesor cobblestoning. No thrush was noted. Neck: Supple without thyromegaly. No elevated JVP. Trachea was midline. Respiratory: Chest was symmetrical without dullness to percussion. Breath sounds bilaterally were clear to auscultation. There were no wheezes, rhonchi or rales. There is no intercostal retraction oruse of accessory muscles. No egophony noted. Cardiovascular: Regular without murmur, clicks, gallops or rubs. Abdomen: Slightly rounded and soft without organomegaly. No rebound, rigidity or guarding was appreciated. Lymphatic: No lymphadenopathy. Musculoskeletal: Normal curvature of the spine. No gross muscle weakness. Extremities: No lower extremity edema, ulcerations, tenderness, varicosities or erythema. Muscle size, tone and strength are normal. No involuntary movements are noted. Skin: Warm and dry. Good color, turgor and pigmentation. No lesions or scars. No cyanosis or clubbing Neurological/Psychiatric: The patient's general behavior, level of consciousness, thought content and emotional status is normal. Medications: Scheduled Medications: sodium chloride flush 10 mL Intravenous 2 times per day enoxaparin 40 mg Subcutaneous Daily sodium chloride flush 10 mL Intravenous 2 times per day insulin lispro 0-12 Units Subcutaneous TID WC insulin lispro 0-6 Units Subcutaneous Nightly diphenhydrAMINE 25 mg Intravenous Q8H ketorolac 30 mg Intravenous Once amLODIPine 2.5 mg Oral Daily atorvastatin 40 mg Oral Nightly fenofibrate 54 mg Oral Daily metoprolol succinate 25 mg Oral Daily pantoprazole 40 mg Oral QAM AC PARoxetine 40 mg Oral QAM aspirin 81 mg Oral Daily clopidogrel 75 mg Oral Daily amitriptyline 25 mg Oral Nightly methylPREDNISolone (SOLU-MEDROL) IVPB 200 mg Intravenous Q6H Continuous Infusions: dextrose PRN Medications sodium chloride flush 10 mL PRN acetaminophen 650 mg Q4H PRN sodium chloride flush 10 mL PRN magnesium hydroxide 30 mL Daily PRN ondansetron 4 mg Q6H PRN glucose 15 g PRN dextrose 12.5 g PRN glucagon (rDNA) 1 mg PRN dextrose 100 mL/hr PRN nitroGLYCERIN 0.4 mg Q5 Min PRN potassium chloride 40 mEq PRN Or potassium alternative oral replacement 40 mEq PRN Or potassium chloride 10 mEq PRN ketorolac 30 mg Q6H PRN Diagnostic Labs: CBC: Recent Labs 04/19/19 1352 04/19/19223904/20/19 0953 WBC 7.9 9.0 15.1* RBC 3.99 4.31 4.10 HGB 12.3 13.0 13.0 HCT 35.3* 37.4 42.4 MCV 88.5 86.8 103.4* RDW 11.9 11.9 12.4 PLT 261 285 240 BMP: Recent Labs 04/19/19 1352 04/19/190 04/20/19 0953 NA 141 137 137 K 3.3* 3.5* 4.4 CL 102 102 102 CO2 22 22 18* BUN 10 9 9 CREATININE 0.59 0.53 0.52 BNP: No results for input(s): BNP in the last 72 hours. PT/INR: Recent Labs 04/19/19 1352 PROTIME 10.3 INR 1.0 APTT: Recent Labs 04/19/19 1352 APTT 25.2 CARDIAC ENZYMES: No results for input(s): CKMB, CKMBINDEX, TROPONINI in the last 72 hours. Invalid input(s): CKTOTAL;3 FASTING LIPID PANEL: Lab Results Component Value Date CHOL 235 (H) 02/06/2019 HDL 35 (L) 02/06/2019 TRIG 517 (H) 02/06/2019 LIVER PROFILE: Recent Labs 04/19/19 2240 AST 29 ALT 43* BILITOT 0.44 ALKPHOS 99 MICROBIOLOGY: Lab Results Component Value Date/Time CULTURE NO SIGNIFICANT GROWTH 12/02/2018 10:20 AM Imaging: Ct Head Wo Contrast Result Date: 04/19/2019 No acute intracranial abnormality. Ct Abdomen Pelvis W Iv Contrast Additional Contrast? None Result Date: 04/20/2019 Normal appendix. No bowel obstruction. Prior cholecystectomy and hysterectomy. Trace nonspecific free fluid in the posterior pelvis may be physiologic. Xr Chest Portable Result Date: 04/19/2019 No radiographic evidence of acute cardiopulmonary disease. Cta Head Neck W Contrast Result Date: 04/19/2019 Mild beading of both cervical ICAs which may reflect FMD or arteritis. No flow limiting stenosis orlarge vessel occlusion visualized within the head or neck. Mri Brain Wo Contrast Result Date: 04/20/2019 Unremarkable MRI of the brain. ASSESSMENT & PLAN ASSESSMENT / PLAN: Active Problems: 1. Essential hypertension -restarted home dose Norvasc 2.5 mg PO OD -restarted home dose Toprol XL 25 mg PO OD 2. Coronary artery disease status post stenting (10/21/2018) -CHOLO placement in mid LAD and POBA of the D2 branch -Aspirin 81 mg -Plavix 75 mg 3. Dyslipidemia -Lipitor 40 mg 4. Complicated migraine -being managed as per neurology 5. Stroke-like symptom -CT head normal -MRI of the brain unremarkable 6. Right lower quadrant abdominal pain -Managed as per GI DVT ppx : Lovenox GI ppx: Protonix PT/OT: Onboard Discharge Planning / SW: sales service route manager Krysten Lindsey MD Internal Medicine Resident, PGY-1 [place]; [place], [place] 04/21/2019, 6:42 AM Associated attestation - Flash Colon MD - 04/21/2019 2:51 PM EDT Attending Physician Statement I have discussed the care of Mike Sharif, including pertinent history and exam findings, withthe resident. I have seen and examined the patient and the villalpando elements of all parts of the encounter have been performed by me. I agree with the assessment, plan and orders as documented by the resident with additions . Treatment plan Discussed with nursing staff in detail , all questions answered . Please note that this chart was generated using voice recognition Real Time Content dictation software. Although every effort was made to ensure the accuracy of this automated housekeeping supervisor, some errors in housekeeping supervisor may have occurred. * Mary Jane Oconnor MD - 04/20/2019 8:32 AM EDT [facility] Neurology IN-PATIENT SERVICE [facility] Progress note Date: 04/20/2019 Patient name: Mike Sharif Date of admission: 04/19/2019 8:00 PM Account: [id number] Date of : 1975 PCP: EFFIE Garcia CNP Room: Code Status: Full Code Chief Complaint: Chief Complaint Patient presents with Headache since 4am History Obtained From: patient, electronic medical record Interval history The Patient was seen and examined at bedside Is vitally stable alert oriented x3 No acute events overnight The patient stated that she is improving, no headaches, no left-sided numbness The patient to have MRI of the brain today The patient mentioned significant history of early DC and stroke in family in early 30s She mentioned history of arthritis, recurrent blurry vision, stiffness of the back in the morning more than 1 hour. She is on Compazine, Benadryl and mag every 8 hours. Patient denied abdominal pain. History of Present Illness: The patient is a 43 y.o. Non-/non female who presents with Headache (since 4am ) and she is admitted to the hospital for the management of left-sided numbness. Patient mentioned above with past medical history of coronary artery disease status post stent in last October on dual antiplatelets, hypertension on Norvasc and metoprolol, hyperlipidemia on Lipitor, family history of early DC and stroke in early 30s, was transferred from [facility] for strokelike symptoms. She admitted to the hospital for left-sided weakness and numbness associated with headaches. The patient stated that the headaches started suddenly 7 out of 10 in severity, not radiated, associated with nausea but no vomiting, on the right side. She denied photophobia or phonophobia. The patient stated that she had history of TIAs when she was . In the ER, CT head was done and was unremarkable. CTA of the head and neck showed bilateral cervical ICA with mild bleeding which may reflect FMD or arteritis. Patient admitted to the hospital for further work-up. LDL is 121, triglyceride 517 Past Medical History: Past Medical History: Diagnosis Date Anxiety Cancer (HCC) breast, uterine, cervical Depression GERD (gastroesophageal reflux disease) H/O echocardiogram 06/07/2018 EF 60%. Mildly incrased LV wall thickness. History of 2D echocardiogram LTD 11/25/2018 normal LV size and systolic function. No definite specific wall motion abnormalities were identified. No pericardial effusion. History of cardiovascular stress test 05/02/14 correlates with an intermediate risk for CAD, Pedraza treadmill score is 0 History of echocardiogram 05/02/14 Relatively NL, EF 65% History of echocardiogram 06/07/2018 EF 60%. Mildly increased LV wall thickness. Hypertension IBS (irritable bowel syndrome) Small vessel disease (HCC) TIA (transient ischemic attack) 2000 Tobacco abuse Past Surgical History: Past Surgical History: Procedure Laterality Date BREAST LUMPECTOMY Left 2004 CARDIAC CATHETERIZATION CARDIAC CATHETERIZATION Left 06/07/2018 via right radial approach/ [facility]/ Dr. Ronan Rodriguez CHOLECYSTECTOMY 2007 COLONOSCOPY 2010 history of polyps COLONOSCOPY 06/17/2017 HYSTERECTOMY MASTOID SURGERY HI COLON CA SCRN NOT HI RSK IND N/A 06/17/2017 COLONOSCOPY performed by Johanne Sherman DO at [facility] OR SPINE SURGERY lower back UPPER GASTROINTESTINAL ENDOSCOPY N/A 12/03/2018 EGD ESOPHAGOGASTRODUODENOSCOPY performed by Matt Harris MD at [facility] OR Medications Prior to Admission: Prior to Admission medications Medication Sig Start Date End Date Taking? Authorizing Provider amLODIPine (NORVASC) 2.5 MG tablet Take 1 tablet by mouth daily 02/23/19 Nat Mora MD clopidogrel (PLAVIX) 75 MG tablet Take 1 tablet by mouth daily 02/23/19 Nat Mora MD PARoxetine (PAXIL) 40 MG tablet Take 1 tablet by mouth every morning 02/23/19 Nat Mora MD pantoprazole (PROTONIX) 40 MG tablet Take 1 tablet by mouth 2 times daily (before meals) Patient not taking: Reported on 02/23/2019 12/04/18 Toyin Barahona MD nitroGLYCERIN (NITROSTAT) 0.[address] 1 tablet under the tongue every 5 minutes as needed for Chest pain up to max of 3 total doses. If no relief after 1 dose, call 911. 10/22/18 Shelby Goins MD fenofibrate (TRICOR) 54 MG tablet Take 54 mg by mouth daily [facility] pharmacy: Please dispense generic fenofibrate unless prescriber denote Historical Provider, ranolazine (RANEXA) 500 MG extended release tablet Take 1 tablet by mouth 2 times daily Patient not taking: Reported on 02/23/2019 10/12/18 Nat Mora MD atorvastatin (LIPITOR) 40 MG tablet Take 1 tablet by mouth nightly 07/11/18 Nat Mora MD metoprolol succinate (TOPROL XL) 25 MG extended release tablet Take 1 tablet by mouth daily 07/11/18 Nat Mora MD aspirin 81 MG EC tablet Take 1 tablet by mouth daily 10/02/17 Efren Sethi PA-C Allergies: Cephalosporins Social History: Tobacco: reports that she has been smoking cigarettes. She has a 10.00 pack-year smoking history. She has never used smokeless tobacco. Alcohol: reports that she drinks alcohol. Drug Use: reports that she does not use drugs. Family History: Family History Problem Relation Age of Onset Heart Disease Mother Diabetes Mother High Blood Pressure Mother Diabetes Father High Blood Pressure Father Stroke Father Diabetes Sister Kidney Disease Sister High Blood Pressure Sister Heart Disease Maternal Grandmother Heart Disease Maternal Grandfather Cancer Maternal Grandfather Heart Disease Paternal Grandmother Heart Disease Paternal Grandfather Cancer Paternal Grandfather Cancer Brother Other Brother liver disease Review of Systems: ROS: Constitutional Negative for fever and chills HEENT Negative for ear discharge, ear pain, nosebleed Eyes Negative for photophobia, pain and discharge Respiratory Negative for hemoptysis and sputum Cardiovascular Negative for orthopnea, claudication and PND Gastrointestinal Negative for abdominal pain, diarrhea, blood in stool Musculoskeletal Negative for joint pain, negative for myalgia Neurology weakness in the left side, no numbness Skin Negative for rash or itching Endo/heme/allergies Negative for polydipsia, environmental allergy Psychiatric/behavioral Negative for suicidal ideation. Patient is not anxious Physical Exam: BP 129/68 Pulse 77 Temp 97.9 F (36.6 C) (Oral) Resp 18 Ht 5' 4 (1.626 m) Wt 190 lb 12.8 oz (86.5 kg) SpO2 98% BMI 32.75 kg/m Temp (24hrs), Av.1 F (36.7 C), Min:97.9 F (36.6 C), Max:98.3 F (36.8 C) Recent Labs 04/20/19 0711 04/20/19 1149 POCGLU 136* 132* Intake/Output Summary (Last 24 hours) at 04/20/2019 1331 Last data filed at 04/20/2019 0141 Gross per 24 hour Intake 100 ml Output Net 100 ml NEUROLOGIC EXAMINATION GENERAL Appears comfortable and in no distress HEENT NC/ AT NECK Supple and no bruits heard MENTAL STATUS: Alert, oriented, intact memory, no confusion, normal speech, normal language, no hallucination or delusion CRANIAL NERVES: II - Visual fung intact to confrontation III,IV, - EOMs full, no afferent defect, no GILBERT, no ptosis V - Normal facial sensation VII - Normal facial symmetry VIII - Intact hearing IX,X - Symmetrical palate XI - Symmetrical shoulder shrug XII - Midline tongue, no atrophy MOTOR FUNCTION: significant for good strength of grade 5/5 in the right side, 4 out of 5 in the left side bilateral proximal and distal muscle groups of both upper and lower extremities with normal bulk, normal tone and no involuntary movements, no tremor SENSORY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 to the emergency department with complaint right lower abdominal pain. Patient reports intermittent fevers and right lower abdominal pain onset Wednesday of last week. Acknowledges to nausea and vomiting. States The pain gets worse when I move Reason Comments Animal Bite Dog bite to left thi gh and left hand/wrist Reason Comments Pharyngitis Sore throat, body ac hes, fever since yesterday. Painful swallowing, tenderness to neck. Requesting strep test. Reason Comments Abdominal Pain Patient presents to the emergency department with epigastric pain that radiates up into the chest for the past week. Took Nitro today without any relief Reason Comments Chest Pain Specialty Diagnoses / Procedures Referred By Stefano t Referred To Contact Cardiac Rehabilitation Diagnoses ASHD (arteriosclerotic heart disease) S/P angioplasty with stent Primary hypertension Mixed hyperlipidemia Chest pain in adult Stable angina (HCC) Nat Mora MD [address] [facility] [place] [address] [facility] [address] [facility] [place] [address] Referral ID Status Reason Start Date Expiration Date V isits Requested Visits Authorized [id number] Open Specialty Services Required 12/31/2023 12/30/2024 1 1 Reason Comments Chest Pain Patient states she h as been having some chest pain for the past few days. Patient first stated that she took a nitro a half hour ago but no relief, now states nitro helped with the spasms. Evaluations & Outcomes (unre cognized section and content) Includes: Evaluations & Outcomes for active GoalsNo Outcomes Recorded Includes: Evaluations & Outcomes for active GoalsNo Outcomes Recorded Includes: Evaluations & Outcomes for active GoalsNo Outcomes Recorded Includes: Evaluations & Outcomes for active GoalsNo Outcomes Recorded Includes: Evaluations & Outcomes for active GoalsNo Outcomes Recorded Includes: Evaluations & Outcomes for active GoalsNo Outcomes Recorded Includes: Evaluations & Outcomes for active GoalsNo Outcomes Recorded Includes: Evaluations & Outcomes for active GoalsNo Outcomes Recorded Medical History (unrecognize d section and content) Description No recent change in medical history 12/18 Patient gave verbal consent [facility] 10/20/2019 Description Last Updated History of coronary angiography was perf ormed 09/04/2020 History of stenosis of coronary artery s tent 09/04/2020 Previous hospitalizations 09/04/2020 Recent immunization for flu 09/04/2020 No recent change in medical history 12/18 Patient gave verbal consent [facility] 10/20/2019 Ordered Prescriptions (unrec ognized section and content) Prescription Sig Dispensed Refills Start Date End Da te penicillin v potassium (VEETID) 500 MG tablet Take 1 tablet by mouth 4 times daily for 10 days 40 tablet 0 11/22/2020 12/02/2020 Prescription Sig Dispensed Refills Start Date End Da te dicyclomine (BENTYL) 10 MG capsule Take 1 capsule by mouth 3 times daily as needed (abdominal pain) 15 capsule 0 01/03/2021 01/08/2021 sucralfate (CARAFATE) 1 GM/10ML suspension Take 10 mLs by mouth 4 times daily May substitute 1 g Carafate tablets, if pharmacy staff instruct patient how to create slurry at home. 420 mL 1 01/03/2021 pantoprazole (PROTONIX) 40 MG tablet Take 1 tablet by mouth daily 30 tablet 3 01/03/2021 potassium chloride (KLOR-CON M) 20 MEQ extended release tablet Take 1 tablet by mouth daily 60 tablet 3 01/03/2021 Prescription Sig Dispensed Refills Start Date End Da te ibuprofen (ADVIL;MOTRIN) 600 MG tablet Take 1 tablet by mouth 3 times daily as needed for Pain 30 tablet 0 01/29/2021 Prescription Sig Dispensed Refills Start Date End Da te ibuprofen (ADVIL;MOTRIN) 600 MG tablet Take 1 tablet by mouth 3 times daily as needed for Pain 30 tablet 0 07/08/2021 07/23/2021 Prescription Sig Dispensed Refills Start Date End Da te ticagrelor (BRILINTA) 90 MG TABS tablet Take 1 tablet by mouth 2 times daily 60 tablet 5 10/23/2021 11/22/2021 aspirin 81 MG EC tablet Take 1 tablet by mouth daily 30 tablet 3 10/23/2021 Prescription Sig Dispensed Refills Start Date End Da te predniSONE (DELTASONE) 20 MG tablet Take 1 tablet by mouth 2 times daily for 5 days 10 tablet 0 11/21/2021 11/26/2021 ibuprofen (ADVIL;MOTRIN) 600 MG tablet Take 1 tablet by mouth 3 times daily as needed for Pain 30 tablet 0 11/21/2021 cyclobenzaprine (FLEXERIL) 10 MG tablet Take 1 tablet by mouth 3 times daily as needed for Muscle spasms 21 tablet 0 11/21/2021 12/01/2021 Prescription Sig Dispensed Refills Start Date End Da te azithromycin (ZITHROMAX) 250 MG tabletIndications:Acut e pharyngitis, unspecified etiology Take 1 tablet by mouth See Admin Instructions for 5 days 500mg on day 1 followed by 250mg on days 2 - 5 6 tablet 0 12/19/2021 12/24/2021 Prescription Sig Dispensed Refills Start Date End Da te HYDROcodone-acetaminophen (NORCO) 5-325 MG per tabletIndications:Acute gastritis, presence of bleeding unspecified, unspecified gastritis type,Nausea and vomiting, unspecified vomiting type,S/P PTCA (percutaneous transluminal coronary angioplasty) Take 1 tablet by mouth every 6 hours as needed for Pain for up to 3 days. Intended supply: 3 days. Take lowest dose possible to manage pain Max Daily Amount: 4 tablets 8 tablet 0 07/28/2022 07/31/2022 ondansetron (ZOFRAN-ODT) 4 MG disintegrating tablet Take 1 tablet by mouth 3 times daily as needed for Nausea or Vomiting 20 tablet 0 07/28/2022 Prescription Sig Dispensed Refills Start Date End Da te Hyoscyamine Sulfate SL (LEVSIN/SL) 0.[address] 0.25 mg under the tongue every 4-6 hours as needed (Abd pain) 24 each 0 02/22/2023 02/27/2023 Prescription Sig Dispensed Refills Start Date End Da te HYDROcodone-acetaminophe n (NORCO) 5-325 MG per tabletIndications:Dog bite of left hand, initial encounter Take 1 tablet by mouth every 4 hours as needed for Pain for up to 3 days. Intended supply: 7 days. Take lowest dose possible to manage pain Max Daily Amount: 6 tablets 6 tablet 0 03/05/2023 03/08/2023 amoxicillin-clavulanate (AUGMENTIN) 875-125 MG per tablet Take 1 tablet by mouth 2 times daily for 7 days 14 tablet 0 03/05/2023 03/12/2023 Prescription Sig Dispensed Refills Start Date End Da te potassium chloride (KLOR-CON M) 10 MEQ extended release tablet Take 2 tablets by mouth daily for 3 days 6 tablet 0 08/12/2023 08/15/2023 HYDROcodone-acetaminophe n (NORCO) 5-325 MG per tabletIndications:Abdomi nal pain, epigastric Take 1 tablet by mouth every 4 hours as needed for Pain for up to 5 days. Intended supply: 7 days. Take lowest dose possible to manage pain Max Daily Amount: 6 tablets 10 tablet 0 08/12/2023 08/17/2023 Hyoscyamine Sulfate SL (LEVSIN/SL) 0.[address] 1 tablet under the tongue every 4-6 hours as needed (spasm) 120 each 0 08/12/2023 famotidine (PEPCID) 20 MG tablet Take 1 tablet by mouth 2 times daily 60 tablet 3 08/12/2023 Scheduled Active and Recently Administ ered Medications (unrecognized section and content) Medication Order 01/01/2021 01/02/2021 01/03/2021 0.9 % sodium chloride bolus (COMPLETED) 500 mL (6.13 mL/kg), Intravenous, at 250 mL/hr, Administer over 2 Hours, ONCE, On Wed01/01/21 at 1345, For 1 dose 1343 (New Bag - Provider: Libertad Arrieta RN)1543 (Stopped - Provider: Libertad Arrieta RN) atorvastatin (LIPITOR) tablet 80 mg 80 mg, Oral, NIGHTLY, First dose on Wed01/02/21 at 2100 2004 (Given - Provider: Mike Zafar RN) 1145 (MAR Hold - Provider: Svitlana Autohold - Reason: Unreviewed Transfer Orders)1449 (MAR Unhold - Provider: Graciela Tovar RN)2100 (Due - Provider: Graciela Tovar RN) estradiol (ESTRACE) tablet 1 mg 1 mg, Oral, DAILY, First dose on Wed01/02/21 at 1200 1239 (Given - Provider: Tao Yost RN) 0811 (Given - Provider: Graciela Tovar RN)1145 (MAR Hold - Provider: Svitlana Autohold - Reason: Unreviewed Transfer Orders)1449 (MAR Unhold - Provider: Graciela Tovar RN) metoprolol succinate (TOPROL XL) extended release tablet 50 mg 50 mg, Oral, DAILY, First dose on Wed01/02/21 at 1200, Do not crush or chew. 1239 (Given - Provider: Tao Yost RN) 0811 (Given - Provider: Graciela Tovar RN)1145 (MAR Hold - Provider: [facility] [employer] - Reason: Unreviewed Transfer Orders)1449 (MAR Unhold - Provider: Graciela Tovar RN) morphine (PF) injection 2 mg (COMPLETED) 2 mg, Intravenous, ONCE, On Wed01/01/21 at 2330, For 1 dose, If oral and IV narcotics ordered, use oral first and only use IV if oral is ineffective or cannot take oral. Do Not give oral and IV within 1 hour of each other unless specifically ordered. 234 (Given - Provider: Mike Grey RN) ondansetron (ZOFRAN) injection 4 mg (COMPLETED) 4 mg, Intravenous, ONCE, On Wed01/01/21 at 2330, For 1 dose 2349 (Given - Provider: Mike Grey RN) pantoprazole (PROTONIX) 80 mg in sodium chloride 0.9 % 50 mL bolus (COMPLETED) 80 mg, Intravenous, at 100 mL/hr, Administer over 30 Minutes, ONCE, On Wed01/01/21 at 1630, For 1 dose 1657 (New Bag - Provider: Libertad Arrieta RN)1721 (Stopped - Provider: Libertad Arrieta RN) pantoprazole (PROTONIX) tablet 40 mg (CANCELED) 40 mg, Oral, DAILY, First dose on Wed01/02/21 at 1145, Do not crush or break. 1238 (Given - Provider: Tao Yost RN) PARoxetine (PAXIL) tablet 40 mg 40 mg, Oral, EVERY MORNING, First dose on Wed01/02/21 at 1200 1239 (Given - Provider: Tao Yost RN) 0811 (Given - Provider: Graciela Tovar RN)1145 (MAR Hold - Provider: Svitlana Autohold - Reason: Unreviewed Transfer Orders)1449 (MAR Unhold - Provider: Graciela Tovar RN) potassium chloride (KLOR-CON M) extended release tablet 40 mEq 40 mEq, Oral, 2 TIMES DAILY WITH MEALS, First dose on Wed01/02/21 at 1200, For 4 doses, Do not crush, chew, or suck on tablet. Tablet may also be broken in half and each half swallowed separately. 1239 (Given - Provider: Tao Yost RN)1619 (Given - Provider: Stacy Hugo RN) 0811 (Given - Provider: Graciela Tovar RN)1145 (MAR Hold - Provider: Svitlana Autohold - Reason: Unreviewed Transfer Orders)1449 (MAR Unhold - Provider: Graciela Tovar RN)1700 (Due - Provider: Graciela Tovar RN) potassium chloride 10 mEq/100 mL IVPB (Peripheral Line) () 10 mEq, Intravenous, at 100 mL/hr, EVERY HOUR, First dose on Wed01/01/21 at 1300, For 2 doses 1325 (New Bag - Provider: Marina Barbosa RN)1400 (Due)1435 (Stopped - Provider: Chyna Loera RN) potassium chloride 10 mEq/100 mL IVPB (Peripheral Line) (COMPLETED) 20 mEq, Intravenous, at 100 mL/hr, ONCE, On Wed01/01/21 at 1645, For 1 dose 1653 (New Bag - Provider: Libertad Arrieta RN - Comment: 2 bags of 10 in 100)1810 (Stopped - Provider: Libertad Arrieta RN) sodium chloride flush 0.9 % injection 10 mL 10 mL, Intravenous, EVERY 12 HOURS SCHEDULED (2 times per day), First dose on Wed01/02/21 at 2100 2044 (Not Given - Provider: Miek Zafar RN - Reason: IV Fluid Infusing) 0755 (Not Given - Provider: Graciela Tovar RN - Reason: IV Fluid Infusing)1145 (MAR Hold - Provider: Svitlana Autohold - Reason: Unreviewed Transfer Orders)1449 (MAR Unhold - Provider: Graciela Tovar RN)2100 (Due - Provider: Graciela Tovar RN) sucralfate (CARAFATE) tablet 1 g 1 g, Oral, 4 TIMES DAILY, First dose on Wed01/02/21 at 1300, Substituted for Sucralfate suspension. 1239 (Given - Provider: Tao Yost RN)1619 (Given - Provider: Stacy Hugo RN)2003 (Given - Provider: Mike Zafar RN) 0811 (Given - Provider: Graciela Tovar RN)1145 (MAR Hold - Provider: Svitlana Autohold - Reason: Unreviewed Transfer Orders)1300 (Automatically Held - Provider: Svitlana Autohold)1449 (MAR Unhold - Provider: Graciela Tovar RN)1700 (Due - Provider: Graciela Tovar RN)2100 (Due - Provider: Graciela Tovar RN) topiramate (TOPAMAX) tablet 50 mg 50 mg, Oral, 2 TIMES DAILY, First dose on Wed01/02/21 at 1200, It is not recommended to crush, break, or chew immediate release tablets due to bitter taste. 1239 (Given - Provider: Tao Yost RN)2003 (Given - Provider: Mike Zafar RN) 0811 (Given - Provider: Graciela Tovar RN)1145 (MAR Hold - Provider: Svitlana Autohold - Reason: Unreviewed Transfer Orders)1449 (MAR Unhold - Provider: Graciela Tovar RN)2100 (Due - Provider: Graciela Tovar RN) Continuous Medication Order 01/01/2021 01/02/2021 01/03/2021 0.9% NaCl with KCl 40 mEq infusion Intravenous, at 100 mL/hr, CONTINUOUS, Starting on Wed01/03/21 at 0800 0801 (New Bag - Provider: Graciela Tovar RN)1145 (MAR Hold - Provider: [facility] [employer] - Reason: Unreviewed Transfer Orders)1351 (Anesthesia Volume Adjustment - Provider: Brant Wray APRN - FLIGHT OPERATIONS DISPATCH CLERK - Comment: patient arrived with only 500ml remaining in bag. Total of 83ml given during procedure.)1449 ([facility] Unhold - Provider: Graciela Tovar RN)1530 (Stopped - Provider: Graciela Tovar RN) dextrose 5 % and 0.45 % sodium chloride infusion (CANCELED) Intravenous, at 100 mL/hr, CONTINUOUS, Starting on Wed01/01/21 at 2030 2053 (New Bag - Provider: Mike Grey RN) 0731 (New Bag - Provider: Mell Alonzo, PAOLA)1037 (Handoff - Provider: Mell Alonzo, PAOLA)1910 (New Bag - Provider: Mike Zafar, PAOLA) 0626 (New Bag - Provider: Mike Zafar RN) pantoprazole (PROTONIX) 80 mg in sodium chloride 0.9 % 100 mL infusion 8 mg/hr (10 mL/hr), Intravenous, at 10 mL/hr, CONTINUOUS, Starting on Vivian 01/02/21 at 1415 1620 (New Bag - Provider: Stacy Hugo RN) 0407 (New Bag - Provider: Mike Zafar, PAOLA)1145 ([facility] Hold - Provider: Svitlana Autohold - Reason: Unreviewed Transfer Orders)1449 ([facility] Unhold - Provider: Graciela Tovar RN) PRN Medication Order 01/01/2021 01/02/2021 01/03/2021 0.9 % sodium chloride infusion 25 mL, Intravenous, at 100 mL/hr, PRN, If patient receiving piggyback infusions without ordered maintenance IV fluids or with frequent/long duration piggyback infusions, Starting on Vivian 6/17/21 at 1132, Administer at the same rate as the piggyback being infused. 1145 ([facility] Hold - Provider: [facility] [employer] - Reason: Unreviewed Transfer Orders)1449 ([facility] Unhold - Provider: Graciela Tovar RN) acetaminophen (TYLENOL) suppository 650 mg(Linked Group 1) 650 mg, Rectal, EVERY 6 HOURS PRN, Pain Mild (1-3), Fever, For temp greater than 100.4 F (38 C), Starting on Wed01/02/21 at 1132, Administer if oral route cannot be used. 171 (See Alternative - Provider: Stacy Hugo RN)231 (See Alternative - Provider: Mike Zafar RN) 1145 ([facility] Hold - Provider: [facility] [employer] - Reason: Unreviewed Transfer Orders)1449 ([facility] Unhold - Provider: Graciela Tovar RN) acetaminophen (TYLENOL) tablet 650 mg(Linked Group 1) 650 mg, Oral, EVERY 6 HOURS PRN, Pain Mild (1-3), Fever, For temp greater than 100.4 F (38 C), Starting on Wed01/02/21 at 1132, Maximum dose of acetaminophen is 4000 mg from all sources in 24 hours. 171 (Given - Provider: Stacy Hugo RN)2317 (Given - Provider: Mike Zafar RN) 1145 ([facility] Hold - Provider: Svitlana Autohold - Reason: Unreviewed Transfer Orders)1449 ([facility] Unhold - Provider: Graciela Tovar, PAOLA) dicyclomine (BENTYL) capsule 10 mg 10 mg, Oral, 3 TIMES DAILY PRN, Abdominal Cramping, Starting on Wed01/02/21 at 1945 2003 (Given - Provider: Mike Zafar RN) 1145 ([facility] Hold - Provider: [facility] [employer] - Reason: Unreviewed Transfer Orders)1449 ([facility] Unhold - Provider: Graciela Tovar RN)1506 (Given - Provider: Graciela Tovar RN) iopamidol (ISOVUE-370) 76 % injection 75 mL (COMPLETED) 75 mL, Intravenous, IMG ONCE PRN, Other, Starting on Wed01/01/21 at 1311, For 1 dose 1312 (Given - Provider: Mehdi Reza) ondansetron (ZOFRAN) injection 4 mg 4 mg, Intravenous, EVERY 6 HOURS PRN, Nausea, Vomiting, Starting on Vivian 01/02/21 at 1132 2004 (Given - Provider: Mike Zafar RN) 1145 ([facility] Hold - Provider: [facility] [employer] - Reason: Unreviewed Transfer Orders)1449 ([facility] Unhold - Provider: Graciela Tovar RN) sodium chloride flush 0.9 % injection 10 mL 10 mL, Intravenous, PRN, Line Care, After every IV line use, Starting on Vivian 01/02/21 at 1132 1145 ([facility] Hold - Provider: [facility] [employer] - Reason: Unreviewed Transfer Orders)1449 ([facility] Unhold - Provider: Graciela Tovar RN) Linked Groups Order Group 1: acetaminophen (TYLENOL) tablet 650 mgJump to med 650 mg, Oral, EVERY 6 HOURS PRN, Pain Mild (1-3), Fever, For temp greater than 100.4 F (38 C), Starting on Vivian 01/02/21 at 1132
Maximum dose of acetaminophen is 4000 mg from all sources in 24 hours.
Or acetaminophen (TYLENOL) suppository 650 mgJump to med 650 mg, Rectal, EVERY 6 HOURS PRN, Pain Mild (1-3), Fever, For temp greater than 100.4 F (38 C), Starting on Vivian 01/02/21 at 1132
Administer if oral route cannot be used.
Scheduled Medication Order 01/27/2021 01/28/2021 01/29/2021 ibuprofen (ADVIL;MOTRIN) tablet 800 mg (COMPLETED) 800 mg, Oral, ONCE, On Wed01/29/21 at 0645, For 1 dose, Do not crush or break. 07 (Given - Provid er: Marian Aceves RN) orphenadrine (NORFLEX) injection 60 mg (COMPLETED) 60 mg, Intramuscular, ONCE, On Wed01/29/21 at 0645, For 1 dose 07 (Given - Provid er: Marian Aceves RN) Scheduled Medication Order 05/20/2021 05/21/2021 05/22/2021 ketorolac (TORADOL) injection 60 mg (COMPLETED) 60 mg, IntraMUSCular, ONCE, On Vivian 05/22/21 at 1900, For 1 dose, Do not administer for more than 5 days. 1908 (Given - Provid er: Rocio Staley RN - Comment: given by tying machine operator lumber student wei) Scheduled Medication Order 06/04/2021 06/05/2021 06/06/2021 0.9 % sodium chloride bolus (COMPLETED) 1,000 mL, IntraVENous, at 1,000 mL/hr, Administer over 1 Hours, ONCE, On Wed06/06/21 at 1100, For 1 dose 1310 (New Bag - Prov ider: Delaney Heredia RN)1412 (Stopped - Provider: Delaney Heredia RN) diphenhydrAMINE (BENADRYL) injection 25 mg (COMPLETED) 25 mg, IntraVENous, ONCE, On Wed06/06/21 at 1330, For 1 dose 1327 (Held - Provide r: Delaney Heredia RN - Reason: Other)1330 (Given - Provider: Delaney Heredia RN) ketorolac (TORADOL) injection 30 mg (COMPLETED) 30 mg, IntraVENous, ONCE, On Wed06/06/21 at 1330, For 1 dose, Do not administer for more than 5 days. 1328 (Given - Provid er: Delaney Heredia RN) nitroGLYCERIN (NITROSTAT) SL tablet 0.4 mg (COMPLETED) 0.4 mg, SubLINGual, ONCE, On Wed06/06/21 at 1100, For 1 dose, Place 1 tablet under tongue upon chest pain, wait 5 minutes and may repeat up to 3 doses in 15 minutes. Do not crush or break. 1310 (Given - Provid er: Delaney Heredia RN) Scheduled Medication Order 06/17/2021 06/18/2021 06/19/2021 diphenhydrAMINE (BENADRYL) capsule 50 mg 50 mg, Oral, ONCE, On Vivian 06/19/21 at 1430, For 1 dose, One hour prior to procedure if allergic to dye., Pre-Procedure(Cath) 1427 (Not Given - Pr ovider: Celina Moran RN - Reason: Order parameters not met) sodium chloride flush 0.9 % injection 5-40 mL 5-40 mL, IntraVENous, EVERY 12 HOURS SCHEDULED (2 times per day), First dose on Vivian 06/19/21 at 2100, For Line Patency: Peripheral IV = 5 mL; Midline or Central Line = 10 mL/lumen. If following IV push medication, administer flush at same rate as the IV push. Flush volume is determined by type of infusion therapy being given. For non-viscous solutions use: Peripheral IV = 5 mL Midline or Central Line = 10 mL/lumen For viscous solutions (i.e. blood components, parenteral nutrition, contrast media, or after obtaining blood sample) use: Peripheral IV = 10 mL Midline or Central Line = 20 mL/lumen, Pre-Procedure(Cath) 2100 (Due) Continuous Medication Order 06/17/2021 06/18/2021 06/19/2021 0.9 % sodium chloride infusion IntraVENous, at 100 mL/hr, CONTINUOUS, Starting on Vivian 06/19/21 at 1430, Start IV infusion 1 hour prior to planned heart Catheterization. If the patient clearance is less than 60, Start normal saline infused at 3ml/kg/hour by ideal body weight for the first hour and then 1 mL/kg/hr until just prior to discharge for a maximum of 6 total hours post cath., Pre-Procedure(Cath) 1427 (New Bag - Prov ider: Celina Moran RN)1516 (Stopped - Provider: Teri Narvaez RN) 0.9 % sodium chloride infusion IntraVENous, CONTINUOUS, Starting on Vivian 06/19/21 at 1545, -Rate of IV fluid administration during recovery will be based on the patient's LVEDP obtained during the procedure using the following formula: 1. LVEDP <13 = 5cc/kg/hr 2. LVEDP 13-18 = 3cc/kg/hr 3. LVEDP >18 = 1.5cc/kg/hr If no LVEDP obtained, ask soot blower for fluid rate and volume to be given in recovery. -Fluids will be infused over a minimum of 2 hours. Rate shall not exceed 500 cc/hr. Ask soot blower for fluid volume total to be infused. -If GFR is less than 30, fluids will be infused over a minimum of 3 hours. -In case of reduced EF, CHF, etc., consult soot blower for rate and volume to be administered., Recovery(Cath) 1510 (Rate/Dose Veri fy - Provider: Celina Moran, RN)1725 (Stopped - Provider: Teri Narvaez RN) PRN Medication Order 06/17/2021 06/18/2021 06/19/2021 0.9 % sodium chloride infusion 25 mL, IntraVENous, at 100 mL/hr, PRN, If patient receiving piggyback infusions without ordered maintenance IV fluids or with frequent/long duration piggyback infusions, Starting on Vivian 06/19/21 at 1411, Administer at the same rate as the piggyback being infused., Pre-Procedure(Cath) acetaminophen (TYLENOL) tablet 650 mg 650 mg, Oral, EVERY 4 HOURS PRN, Pain Mild (1-3), Fever, Fever >100.5 F (38 C), Starting on Vivian 06/19/21 at 1518, Maximum dose of acetaminophen is 4000 mg from all sources in 24 hours., Recovery(Cath) iopamidol (ISOVUE-370) 76 % injection 40 mL (COMPLETED) 40 mL, Other, IMG ONCE PRN, Other, IntraArterial, Starting on Vivian 06/19/21 at 1615, For 1 dose 1455 (Given - Provid er: Merle Cantu) nitroGLYCERIN (NITROSTAT) SL tablet 0.4 mg 0.4 mg, SubLINGual, EVERY 5 MIN PRN, Chest pain, Starting on Vivian 06/19/21 at 1411, For 3 doses, Place 1 tablet under tongue upon chest pain, wait 5 minutes and may repeat up to 3 doses in 15 minutes. Do not crush or break. , Pre-Procedure(Cath) sodium chloride flush 0.9 % injection 5-40 mL 5-40 mL, IntraVENous, PRN, Line Care, After every IV line use, Starting on Vivian 06/19/21 at 1411, For Line Patency: Peripheral IV = 5 mL; Midline or Central Line = 10 mL/lumen. If following IV push medication, administer flush at same rate as the IV push. Flush volume is determined by type of infusion therapy being given. For non-viscous solutions use: Peripheral IV = 5 mL Midline or Central Line = 10 mL/lumen For viscous solutions (i.e. blood components, parenteral nutrition, contrast media, or after obtaining blood sample) use: Peripheral IV = 10 mL Midline or Central Line = 20 mL/lumen, Pre-Procedure(Cath) Scheduled Medication Order 07/06/2021 07/07/2021 07/08/2021 ketorolac (TORADOL) injection 60 mg (COMPLETED) 60 mg, IntraMUSCular, ONCE, On Wed07/08/21 at 1430, For 1 dose, Do not administer for more than 5 days. 1429 (Given - Provid er: Rocio Staley RN) Scheduled Medication Order 10/05/2021 10/06/2021 10/07/2021 aluminum & magnesium hydroxide-simethicone (MAALOX) 30 mL, lidocaine viscous hcl (XYLOCAINE) 5 mL (GI COCKTAIL) (COMPLETED) Oral, ONCE, On Wed10/07/21 at 1530, For 1 dose, Take 5 mL from lidocaine viscous 2% cup and mix with 30 mL of maalox and then administer. 1512 (Given - Provid er: Crystal Connolly RN) amLODIPine (NORVASC) tablet 2.5 mg 2.5 mg, Oral, DAILY, First dose on Wed10/07/21 at 0900 0900 (Held - Provide r: Crystal Connolly RN - Reason: Pt NPO)1208 (Given - Provider: Crystal Connolly RN) aspirin chewable tablet 162 mg (COMPLETED) 162 mg, Oral, ONCE, On Wed10/06/21 at 2000, For 1 dose 195 (Given - Provider: Griselda Weiner RN) atorvastatin (LIPITOR) tablet 80 mg 80 mg, Oral, DAILY, First dose on Wed10/07/21 at 0900 0900 (Held - Provide r: Crystal Connolly RN - Reason: Pt NPO)1206 (Given - Provider: Crystal Connolly RN) cetirizine (ZYRTEC) tablet 10 mg 10 mg, Oral, DAILY, First dose on Wed10/07/21 at 0900 0900 (Held - Provide r: Crystal Connolly RN - Reason: Pt NPO)1207 (Given - Provider: Crystal Connolly RN) clopidogrel (PLAVIX) tablet 75 mg 75 mg, Oral, DAILY, First dose on Wed10/07/21 at 0900 0900 (Held - Provide r: Crystal Connolly RN - Reason: Pt NPO)1208 (Given - Provider: Crystal Connolly RN) enoxaparin (LOVENOX) injection 40 mg 40 mg, SubCUTAneous, DAILY, First dose on Wed10/07/21 at 0900 0900 (Held - Provide r: Crystal Connolly RN - Reason: Other)1209 (Given - Provider: Crystal Connolly RN) estrogens (conjugated)-methylTESTOST ERone (ESTRATEST) 1.25-2.5 MG per tablet 1 tablet 1 tablet, Oral, DAILY, First dose on Wed10/07/21 at 0900 0900 (Held - Provide r: Crystal Connolly RN - Reason: Pt NPO) fluticasone (FLONASE) 50 MCG/ACT nasal spray 1 spray 1 spray, Each Nostril, DAILY, First dose on Wed10/07/21 at 0900 0900 (Held - Provide r: Crystal Connolly RN - Reason: Patient/family refused) metoprolol succinate (TOPROL XL) extended release tablet 50 mg 50 mg, Oral, DAILY, First dose on Wed10/07/21 at 0900, Do not crush or chew. 0900 (Held - Provide r: Crystal Connolly RN - Reason: Pt NPO)1209 (Given - Provider: Crystal Connolly RN) ondansetron (ZOFRAN) injection 4 mg (COMPLETED) 4 mg, IntraVENous, ONCE, On Wed10/06/21 at 2100, For 1 dose 2100 (Given - Provider: Griselda Weiner RN) pantoprazole (PROTONIX) tablet 40 mg 40 mg, Oral, DAILY, First dose on Wed10/07/21 at 0900, Do not crush or break. 0900 (Held - Provide r: Crystal Connolly RN - Reason: Pt NPO)1209 (Given - Provider: Crystal Connolly RN) PARoxetine (PAXIL) tablet 40 mg 40 mg, Oral, EVERY MORNING, First dose on Wed10/07/21 at 0900 0900 (Held - Provide r: Crystal Connolly RN - Reason: Pt NPO)1207 (Given - Provider: Crystal Connolly RN) potassium chloride (KLOR-CON M) extended release tablet 20 mEq 20 mEq, Oral, DAILY, First dose on Wed10/07/21 at 0900, Do not crush, chew, or suck on tablet. Tablet may also be broken in half and each half swallowed separately. 0900 (Held - Provide r: Crystal Connolly RN - Reason: Pt NPO)1207 (Given - Provider: Crystal Connolly RN) sodium chloride flush 0.9 % injection 5-40 mL 5-40 mL, IntraVENous, EVERY 12 HOURS SCHEDULED (2 times per day), First dose on Wed10/06/21 at 2300, For Line Patency: Peripheral IV = 5 mL; Midline or Central Line = 10 mL/lumen. If following IV push medication, administer flush at same rate as the IV push. Flush volume is determined by type of infusion therapy being given. For non-viscous solutions use: Peripheral IV = 5 mL Midline or Central Line = 10 mL/lumen For viscous solutions (i.e. blood components, parenteral nutrition, contrast media, or after obtaining blood sample) use: Peripheral IV = 10 mL Midline or Central Line = 20 mL/lumen 2254 (Given - Provider: Pravin Cabrales RN) 0910 (Not Given - Provider: Crystal Connolly RN - Reason: Patient not available)1210 (Given - Provider: Crystal Connolly RN)2100 (Due) topiramate (TOPAMAX) tablet 50 mg 50 mg, Oral, 2 TIMES DAILY, First dose on Wed10/06/21 at 2300, It is not recommended to crush, break, or chew immediate release tablets due to bitter taste. 2254 (Not Given - Provider: Pravin Cabrales RN - Reason: Patient/family refused) 0900 (Held - Provider: Crystal Connolly RN - Reason: Pt NPO)1208 (Given - Provider: Crystal Connolly RN)2100 (Due) Vitamin D (CHOLECALCIFEROL) tablet 1,000 Units 1,000 Units, Oral, DAILY, First dose on Wed10/07/21 at 0900 0900 (Held - Provide r: Crystal Connolly RN - Reason: Pt NPO)1207 (Given - Provider: Crystal Connolly RN) PRN Medication Order 10/05/2021 10/06/2021 10/07/2021 0.9 % sodium chloride infusion 25 mL, IntraVENous, at 100 mL/hr, PRN, If patient receiving piggyback infusions without ordered maintenance IV fluids or with frequent/long duration piggyback infusions, Starting on Wed10/06/21 at 2234, Administer at the same rate as the piggyback being infused. acetaminophen (TYLENOL) suppository 650 mg(Linked Group 1) 650 mg, Rectal, EVERY 6 HOURS PRN, Pain Mild (1-3), Fever, For temp greater than 100.4 F (38 C), Starting on Wed10/06/21 at 2234, Administer if oral route cannot be used. acetaminophen (TYLENOL) tablet 650 mg(Linked Group 1) 650 mg, Oral, EVERY 6 HOURS PRN, Pain Mild (1-3), Fever, For temp greater than 100.4 F (38 C), Starting on Wed10/06/21 at 2234, Maximum dose of acetaminophen is 4000 mg from all sources in 24 hours. ondansetron (ZOFRAN) injection 4 mg(Linked Group 2) 4 mg, IntraVENous, EVERY 6 HOURS PRN, Nausea, Vomiting, Starting on Wed10/06/21 at 2234, Administer if oral route cannot be used. ondansetron (ZOFRAN-ODT) disintegrating tablet 4 mg(Linked Group 2) 4 mg, Oral, EVERY 8 HOURS PRN, Nausea, Vomiting, Starting on Wed10/06/21 at 2234 polyethylene glycol (GLYCOLAX) packet 17 g 17 g, Oral, DAILY PRN, Constipation, Starting on Wed10/06/21 at 2234, First line therapy for constipation regadenoson (LEXISCAN) injection 0.4 mg (COMPLETED) 0.4 mg, IntraVENous, IMG ONCE PRN, Other, Starting on Wed10/07/21 at 0932, For 1 dose 0945 (Given - Provid er: Mar Fontana RN) sodium chloride flush 0.9 % injection 10 mL 10 mL, IntraVENous, PRN, Line Care, After every IV line use, Starting on Wed10/06/21 at 2234 technetium sestamibi (CARDIOLITE) injection 10 millicurie (COMPLETED) 10 millicurie, IntraVENous, IMG ONCE PRN, Other, Starting on Wed10/07/21 at 0730, For 1 dose 0932 (Given - Provid er: Janes Elaine) technetium sestamibi (CARDIOLITE) injection 30 millicurie (COMPLETED) 30 millicurie, IntraVENous, IMG ONCE PRN, Other, Starting on Wed10/07/21 at 0730, For 1 dose 0932 (Given - Provid er: Janes Elaine) Linked Groups Order Group 1: acetaminophen (TYLENOL) tablet 650 mgJump to med 650 mg, Oral, EVERY 6 HOURS PRN, Pain Mild (1-3), Fever, For temp greater than 100.4 F (38 C), Starting on Wed10/06/21 at 2234
Maximum dose of acetaminophen is 4000 mg from all sources in 24 hours.
Or acetaminophen (TYLENOL) suppository 650 mgJump to med 650 mg, Rectal, EVERY 6 HOURS PRN, Pain Mild (1-3), Fever, For temp greater than 100.4 F (38 C), Starting on Wed10/06/21 at 2234
Administer if oral route cannot be used.
Group 2: ondansetron (ZOFRAN-ODT) disintegrating tablet 4 mgJump to med 4 mg, Oral, EVERY 8 HOURS PRN, Nausea, Vomiting, Starting on Wed10/06/21 at 2234 Or ondansetron (ZOFRAN) injection 4 mgJump to med 4 mg, IntraVENous, EVERY 6 HOURS PRN, Nausea, Vomiting, Starting on Wed10/06/21 at 2234
Administer if oral route cannot be used.
Scheduled Medication Order 10/17/2021 10/18/2021 10/19/2021 0.9 % sodium chloride bolus 50 mL (0.574 mL/kg), IntraVENous, at 100 mL/hr, Administer over 0.5 Hours, ONCE, On Wed10/19/21 at 2200, For 1 dose, Follow the alteplase (ACTIVASE) infusion with 50 mL of 0.9 % NS, at the SAME RATE as the TPA infusion, to clear the line and complete the infusion. 2200 (Due) alteplase (ACTIVASE) injection 7.8 mg (COMPLETED) 7.8 mg (rounded from 7.839 mg = 0.09 mg/kg 87.1 kg), IntraVENous, ONCE, On Wed10/19/21 at 2100, For 1 dose, Bolus Dose Total dose of Alteplase=0.9mg/kg (90mg max) (10% -- given as Bolus) (90% -- given as Infusion) 2122 (New Bag - Prov ider: Teodora Yost RN)2123 (Stopped - Provider: Teodora Yost RN) alteplase (ACTIVASE) injection 70.6 mg (COMPLETED) 70.6 mg (rounded from 70.551 mg = 0.81 mg/kg 87.1 kg), IntraVENous, at 70.6 mL/hr, Administer over 60 Minutes, ONCE, On Wed10/19/21 at 2100, For 1 dose, Infusion Dose Total dose of Alteplase=0.9mg/kg (90mg max) (10% -- given as Bolus) (90% -- given as Infusion) 2124 (New Bag - Prov ider: Teodora Yost RN)2211 (Patient Transferred to Other Facility - Provider: Teodora Yost RN) atorvastatin (LIPITOR) tablet 80 mg 80 mg, Oral, NIGHTLY, First dose on 10/19/21 at 2100, Until Discontinued 2149 (Given - Provid er: Teodora Yost RN) enoxaparin (LOVENOX) injection 40 mg 40 mg, SubCUTAneous, DAILY, First dose on 10/20/21 at 2044, Until Discontinued, Do NOT administer if bleed present on follow up CT-Head and begin a minimum of 24 hours post tPA administration. PRN Medication Order 10/17/2021 10/18/2021 10/19/2021 dextrose 50 % IV solution 12.5 g, IntraVENous, ONCE PRN, 1 dose, Starting on 10/19/21 at 2043, Until 10/19/21 at 2359, Low blood sugar, For BS less than 60 mg/dL iopamidol (ISOVUE-370) 76 % injection 75 mL (COMPLETED) 75 mL, IntraVENous, IMG ONCE PRN, 1 dose, Starting on 10/19/21 at 2026, Until 10/19/21 at 2026, Other 2026 (Given - Provid er: Rebeca Malave) ondansetron (ZOFRAN) injection 4 mg(Linked Group 1) 4 mg, IntraVENous, EVERY 6 HOURS PRN, Starting on 10/19/21 at 2042, Until Discontinued, Nausea, Vomiting, Administer if oral route cannot be used. ondansetron (ZOFRAN-ODT) disintegrating tablet 4 mg(Linked Group 1) 4 mg, Oral, EVERY 8 HOURS PRN, Starting on 10/19/21 at 2042, Until Discontinued, Nausea, Vomiting Linked Groups Order Group 1: ondansetron (ZOFRAN-ODT) disintegrating tablet 4 mgJump to med 4 mg, Oral, EVERY 8 HOURS PRN, Starting on 10/19/21 at 2042, Until Discontinued, Nausea, Vomiting Or ondansetron (ZOFRAN) injection 4 mgJump to med 4 mg, IntraVENous, EVERY 6 HOURS PRN, Starting on 10/19/21 at 2042, Until Discontinued, Nausea, Vomiting
Administer if oral route cannot be used.
Scheduled Medication Order 10/21/2021 10/22/2021 10/23/2021 aspirin EC tablet 81 mg 81 mg, Oral, DAILY, First dose on Wed10/21/21 at 1915, Until Discontinued, Do not crush or break. 2057 (Given - Provider: Sarah Michael RN) 0859 (Given - Provider: Carole Perdue RN) 0841 (Given - Provider: Carole Perdue RN) atorvastatin (LIPITOR) tablet 80 mg 80 mg, Oral, DAILY, First dose on Wed10/20/21 at 0900, Until Discontinued 812 (Given - Provider: Nallely Avendaño RN) 0859 (Given - Provider: Carole Perdue RN) 0841 (Given - Provider: Carole Perdue RN) clindamycin (CLEOCIN) 600 mg in dextrose 5 % 50 mL IVPB (COMPLETED) 600 mg, IntraVENous, ONCE, 1 dose, On Wed10/22/21 at 1730, Antimicrobial Indications: Surgical Prophylaxis 173 (New Bag - Provider: Griselda Pope RN)180 (Stopped - Provider: Griselda Pope RN) clopidogrel (PLAVIX) tablet 75 mg 75 mg, Oral, DAILY, First dose on Wed10/21/21 at 1915, Until Discontinued 2149 (Given - Provider: Sarah Michael RN - Comment: late from pharmacy) 0859 (Given - Provider: Carole Perdue RN) 0841 (Given - Provider: Carole Perdue RN) enoxaparin (LOVENOX) injection 40 mg 40 mg, SubCUTAneous, DAILY, First dose on Wed10/21/21 at 1915, Until Discontinued 2057 (Given - Provider: Sarah Michael RN) 1030 (Held - Provider: Carole Perdue RN - Reason: Other - Comment: ir today) 0841 (Given - Provider: Carole Perdue RN) ezetimibe (ZETIA) tablet 10 mg 10 mg, Oral, DAILY, First dose on Wed10/20/21 at 0900, Until Discontinued 0813 (Given - Provider: Nallely Avendaño RN) 0859 (Given - Provider: Carole Perdue RN) 0841 (Given - Provider: Carole Perdue RN) pantoprazole (PROTONIX) tablet 40 mg 40 mg, Oral, DAILY, First dose on Wed10/20/21 at 0900, Until Discontinued, Do not crush or break. 0813 (Given - Provider: Nallely Avenadño RN) 0859 (Given - Provider: Carole Perdue RN) 0841 (Given - Provider: Carole Perdue RN) PARoxetine (PAXIL) tablet 40 mg 40 mg, Oral, EVERY MORNING, First dose on Wed10/20/21 at 0900, Until Discontinued 0812 (Given - Provider: Nallely Avendaño RN) 0859 (Given - Provider: Carole Perdue RN) 0841 (Given - Provider: Carole Perdue RN) potassium chloride (KLOR-CON M) extended release tablet 20 mEq 20 mEq, Oral, DAILY, First dose on Wed10/20/21 at 0900, Until Discontinued, Do not crush, chew, or suck on tablet. Tablet may also be broken in half and each half swallowed separately. 08 (Given - Provider: Nallely Avendaño RN) 0859 (Given - Provider: aCrole Perdue RN) 0841 (Given - Provider: Carole Perdue RN) topiramate (TOPAMAX) tablet 50 mg 50 mg, Oral, 2 TIMES DAILY, First dose on Wed10/20/21 at 0200, Until Discontinued, It is not recommended to crush, break, or chew immediate release tablets due to bitter taste. 811 (Given - Provider: Nallely Avendaño RN)2058 (Given - Provider: aSrah Michael RN) 0859 (Given - Provider: Carole Perdue RN)2046 (Given - Provider: Carmencita Desir, PAOLA) 0841 (Given - Provider: Carole Perdue RN)2099 (Due) traZODone (DESYREL) tablet 50 mg 50 mg, Oral, NIGHTLY, First dose on Wed10/20/21 at 2100, Until Discontinued 2058 (Given - Provider: Sarah Michael, PAOLA) 2046 (Given - Provider: Carmencita Desir RN) 2099 (Due) PRN Medication Order 10/21/2021 10/22/2021 10/23/2021 acetaminophen (TYLENOL) tablet 650 mg 650 mg, Oral, EVERY 4 HOURS PRN, Starting on Wed10/20/21 at 0400, Until Discontinued, Pain Mild (1-3), Fever, Fever >100.5 (38 C), Do not use if NPO or failed swallow screen. 180 (Given - Provider: Nallely Avendaño RN) acetaminophen (TYLENOL) tablet 650 mg 650 mg, Oral, EVERY 4 HOURS PRN, Starting on Wed10/22/21 at 1727, Until Discontinued, Pain Mild (1-3), Fever, Fever >100.5 F (38 C), Maximum dose of acetaminophen is 4000 mg from all sources in 24 hours., Recovery(IR) fentaNYL (SUBLIMAZE) injection (COMPLETED) ONCE PRN, 1 dose, Starting on Wed10/22/21 at 1710, Until Wed10/22/21 at 1710 1710 (Given - Provider: Griselda Pope, PAOLA) iodixanol (VISIPAQUE) injection 100 mL (COMPLETED) 100 mL, IntraVENous, IMG ONCE PRN, 1 dose, Starting on Wed10/22/21 at 1727, Until Wed10/22/21 at 1728, Other 1728 (Given - Provider: Mark Pope) midazolam PF (VERSED) injection (COMPLETED) ONCE PRN, 1 dose, Starting on Wed10/22/21 at 1710, Until Wed10/22/21 at 1710 1710 (Given - Provider: Griselda Pope, PAOLA) ondansetron (ZOFRAN) injection 4 mg(Linked Group 1) 4 mg, IntraVENous, EVERY 6 HOURS PRN, Starting on Wed10/20/21 at 0144, Until Discontinued, Nausea, Vomiting, Administer if oral route cannot be used. 1030 (See Alternative - Provider: Carole Perdue RN) ondansetron (ZOFRAN) injection 4 mg(Linked Group 2) 4 mg, IntraVENous, EVERY 6 HOURS PRN, Starting on Wed10/22/21 at 1727, Until Discontinued, Nausea, Vomiting, Administer if oral route cannot be used., Recovery(IR) 214 (Given - Provider: Carmencita Desir RN) ondansetron (ZOFRAN-ODT) disintegrating tablet 4 mg(Linked Group 1) 4 mg, Oral, EVERY 8 HOURS PRN, Starting on Wed10/20/21 at 0144, Until Discontinued, Nausea, Vomiting 1030 (Given - Provider: Carole Perdue RN) ondansetron (ZOFRAN-ODT) disintegrating tablet 4 mg(Linked Group 2) 4 mg, Oral, EVERY 8 HOURS PRN, Starting on Wed10/22/21 at 1727, Until Discontinued, Nausea, Vomiting, Recovery(IR) 214 (See Alternative - Provider: Carmencita Desir RN) perflutren lipid microspheres (DEFINITY) injection 1.65 mg 1.65 mg (1.5 mL), IntraVENous, IMG ONCE PRN, 1 dose, Starting on Wed10/20/21 at 0144, Until Discontinued, Other, Inability to detect 2 or more contiguous segments in any of the 3 apical views due to poor endocardial border definition, Echocardiogram should first be performed without contrast and if exam is adequate then DO NOT administer the contrast and delete the order using Per Protocol order mode. If unable to detect 2 or more contiguous segments in any of the 3 apical views due to poor endocardial border definition, then assess patient for any contraindications to echo contrast and if none present administer the echo contrast. polyethylene glycol (GLYCOLAX) packet 17 g 17 g, Oral, DAILY PRN, Starting on Wed10/20/21 at 0144, Until Discontinued, Constipation, First line therapy for constipation Linked Groups Order Group 1: ondansetron (ZOFRAN-ODT) disintegrating tablet 4 mgJump to med 4 mg, Oral, EVERY 8 HOURS PRN, Starting on Wed10/20/21 at 0144, Until Discontinued, Nausea, Vomiting Or ondansetron (ZOFRAN) injection 4 mgJump to med 4 mg, IntraVENous, EVERY 6 HOURS PRN, Starting on Wed10/20/21 at 0144, Until Discontinued, Nausea, Vomiting
Administer if oral route cannot be used.
Group 2: ondansetron (ZOFRAN-ODT) disintegrating tablet 4 mgJump to med 4 mg, Oral, EVERY 8 HOURS PRN, Starting on Wed10/22/21 at 1727, Until Discontinued, Nausea, Vomiting, Recovery(IR) Or ondansetron (ZOFRAN) injection 4 mgJump to med 4 mg, IntraVENous, EVERY 6 HOURS PRN, Starting on Wed10/22/21 at 1727, Until Discontinued, Nausea, Vomiting
Administer if oral route cannot be used.
Recovery(IR) Scheduled Medication Order 10/28/2021 10/29/2021 10/30/2021 diphenhydrAMINE (BENADRYL) capsule 50 mg 50 mg, Oral, ONCE, 1 dose, On Vivian 10/30/21 at 1215, One hour prior to procedure if allergic to dye., Pre-Procedure(Cath) 1215 (Due) sodium chloride flush 0.9 % injection 5-40 mL 5-40 mL, IntraVENous, EVERY 12 HOURS SCHEDULED (2 times per day), First dose on Vivian 10/30/21 at 2100, Until Discontinued, For Line Patency: Peripheral IV = 5 mL; Midline or Central Line = 10 mL/lumen. If following IV push medication, administer flush at same rate as the IV push. Flush volume is determined by type of infusion therapy being given. For non-viscous solutions use: Peripheral IV = 5 mL Midline or Central Line = 10 mL/lumen For viscous solutions (i.e. blood components, parenteral nutrition, contrast media, or after obtaining blood sample) use: Peripheral IV = 10 mL Midline or Central Line = 20 mL/lumen, Pre-Procedure(Cath) 2100 (Due) Continuous Medication Order 10/28/2021 10/29/2021 10/30/2021 0.9 % sodium chloride infusion IntraVENous, at 100 mL/hr, CONTINUOUS, Starting on Vivian 10/30/21 at 1215, Start IV infusion 1 hour prior to planned heart Catheterization. If the patient clearance is less than 60, Start normal saline infused at 3ml/kg/hour by ideal body weight for the first hour and then 1 mL/kg/hr until just prior to discharge for a maximum of 6 total hours post cath., Pre-Procedure(Cath) 1215 (Due) PRN Medication Order 10/28/2021 10/29/2021 10/30/2021 0.9 % sodium chloride infusion 25 mL, IntraVENous, at 100 mL/hr, PRN, If patient receiving piggyback infusions without ordered maintenance IV fluids or with frequent/long duration piggyback infusions, Starting on Vivian 10/30/21 at 1152, Administer at the same rate as the piggyback being infused., Pre-Procedure(Cath) nitroGLYCERIN (NITROSTAT) SL tablet 0.4 mg 0.4 mg, SubLINGual, EVERY 5 MIN PRN, 3 doses, Starting on Vivian 10/30/21 at 1152, Until Discontinued, Chest pain, Place 1 tablet under tongue upon chest pain, wait 5 minutes and may repeat up to 3 doses in 15 minutes. Do not crush or break. , Pre-Procedure(Cath) sodium chloride flush 0.9 % injection 5-40 mL 5-40 mL, IntraVENous, PRN, Starting on Vivian 10/30/21 at 1152, Until Discontinued, Line Care, After every IV line use, For Line Patency: Peripheral IV = 5 mL; Midline or Central Line = 10 mL/lumen. If following IV push medication, administer flush at same rate as the IV push. Flush volume is determined by type of infusion therapy being given. For non-viscous solutions use: Peripheral IV = 5 mL Midline or Central Line = 10 mL/lumen For viscous solutions (i.e. blood components, parenteral nutrition, contrast media, or after obtaining blood sample) use: Peripheral IV = 10 mL Midline or Central Line = 20 mL/lumen, Pre-Procedure(Cath) Scheduled Medication Order 11/19/2021 11/20/2021 11/21/2021 cyclobenzaprine (FLEXERIL) tablet 10 mg (COMPLETED) 10 mg, Oral, ONCE, 1 dose, On Wed11/21/21 at 1945 2001 (Given - Provid er: Jose Juárez RN) ketorolac (TORADOL) injection 30 mg (COMPLETED) Ketorolac is contraindicated in patients with advanced renal impairment and in patients at risk of renal failure due to volume depletion. For 65 years of age and older OR weight less than 50 kg, use 15 mg IV every 6 hours; MAX dose: 60 mg/day. Dose greater than 30 mg must be administered via intramuscular route. Do not administer for more than 5 days., 30 mg, IntraMUSCular, ONCE, 1 dose, On Wed11/21/21 at 1945, Do not administer for more than 5 days. 2001 (Given - Provid er: Jose Juárez RN) Scheduled Medication Order 12/17/2021 12/18/2021 12/19/2021 azithromycin (ZITHROMAX) tablet 500 mg (COMPLETED) 500 mg, Oral, ONCE, 1 dose, On Wed12/19/21 at 1815, Antimicrobial Indications: Head and Neck Infection 1816 (Given - Provid er: Micheal Stout RN) Scheduled Medication Order 04/29/2022 04/30/2022 05/01/2022 HYDROcodone-acetaminophen (NORCO) 5-325 MG per tablet 1 tablet (COMPLETED) 1 tablet, Oral, ONCE, 1 dose, On Wed05/01/22 at 1915, Maximum dose of acetaminophen is 4000 mg from all sources in 24 hours. 1945 (Given - Provid er: Ana Smart RN) Scheduled Medication Order 07/26/2022 07/27/2022 07/28/2022 0.9 % sodium chloride bolus (COMPLETED) 1,000 mL (11.1 mL/kg), IntraVENous, at 983.6 mL/hr, Administer over 61 Minutes, ONCE, On Wed07/28/22 at 0930, For 1 dose 0942 (New Bag - Prov ider: Ashia Francisco RN)1057 (Stopped - Provider: Alka Mehta RN) famotidine (PEPCID) 20 mg in sodium chloride (PF) 0.9 % 10 mL injection (COMPLETED) 20 mg, IntraVENous, ONCE, 1 dose, On Wed07/28/22 at 0930, IV Push over minimum of 2 minutes - Dilute with 10 mL NS 0942 (Given - Provid er: Ashia Francisco RN) HYDROcodone-acetaminophen (NORCO) 5-325 MG per tablet 1 tablet (COMPLETED) 1 tablet, Oral, ONCE, 1 dose, On Wed07/28/22 at 1230, Maximum dose of acetaminophen is 4000 mg from all sources in 24 hours. 1244 (Given - Provid er: Griselda Weiner RN) ondansetron (ZOFRAN) injection 4 mg (COMPLETED) 4 mg, IntraVENous, ONCE, 1 dose, On Wed07/28/22 at 0930 0942 (Given - Provid er: Ashia Francisco RN) PRN Medication Order 07/26/2022 07/27/2022 07/28/2022 iopamidol (ISOVUE-370) 76 % injection 75 mL (COMPLETED) 75 mL, IntraVENous, IMG ONCE PRN, 1 dose, Starting on Wed07/28/22 at 0948, Until Wed07/28/22 at 0948, Other 0948 (Given - Provid er: Jaxson Mera) Scheduled Medication Order 08/18/2022 08/19/2022 08/20/2022 aspirin tablet 325 mg (COMPLETED) 325 mg, Oral, ONCE, 1 dose, On Vivian 08/20/22 at 1245 1240 (Given - Provid er: Alka Mehta RN) morphine (PF) injection 2 mg (COMPLETED) 2 mg, IntraVENous, ONCE, 1 dose, On Vivian 08/20/22 at 1245, If oral and IV narcotics ordered, use oral first and only use IV if oral is ineffective or cannot take oral. Do Not give oral and IV within 1 hour of each other unless specifically ordered. 1245 (Given - Provid er: Alka Mehta RN) ondansetron (ZOFRAN) injection 4 mg (COMPLETED) 4 mg, IntraVENous, ONCE, 1 dose, On Vivian 08/20/22 at 1245 1241 (Given - Provid er: Alka Mehta RN) Scheduled Medication Order 08/18/2022 08/19/2022 08/20/2022 diphenhydrAMINE (BENADRYL) capsule 50 mg 50 mg, Oral, ONCE, 1 dose, On Vivian 08/20/22 at 1600, One hour prior to procedure if allergic to dye., Pre-Procedure(Cath) 1600 (Due) sodium chloride flush 0.9 % injection 5-40 mL 5-40 mL, IntraVENous, EVERY 12 HOURS SCHEDULED (2 times per day), First dose on Vivian 08/20/22 at 2100, Until Discontinued, For Line Patency: Peripheral IV = 5 mL; Midline or Central Line = 10 mL/lumen. If following IV push medication, administer flush at same rate as the IV push. Flush volume is determined by type of infusion therapy being given. For non-viscous solutions use: Peripheral IV = 5 mL Midline or Central Line = 10 mL/lumen For viscous solutions (i.e. blood components, parenteral nutrition, contrast media, or after obtaining blood sample) use: Peripheral IV = 10 mL Midline or Central Line = 20 mL/lumen, Pre-Procedure(Cath) 2100 (Due) sodium chloride flush 0.9 % injection 5-40 mL 5-40 mL, IntraVENous, EVERY 12 HOURS SCHEDULED (2 times per day), First dose on Vivian 08/20/22 at 2100, Until Discontinued, For Line Patency: Peripheral IV = 5 mL; Midline or Central Line = 10 mL/lumen. If following IV push medication, administer flush at same rate as the IV push. Flush volume is determined by type of infusion therapy being given. For non-viscous solutions use: Peripheral IV = 5 mL Midline or Central Line = 10 mL/lumen For viscous solutions (i.e. blood components, parenteral nutrition, contrast media, or after obtaining blood sample) use: Peripheral IV = 10 mL Midline or Central Line = 20 mL/lumen, Recovery(Cath) 2100 (Due) Continuous Medication Order 08/18/2022 08/19/2022 08/20/2022 0.9 % sodium chloride infusion IntraVENous, CONTINUOUS, Starting on Vivian 08/20/22 at 1630, -Rate of IV fluid administration during recovery will be based on the patient's LVEDP obtained during the procedure using the following formula: 1. LVEDP <13 = 5cc/kg/hr 2. LVEDP 13-18 = 3cc/kg/hr 3. LVEDP >18 = 1.5cc/kg/hr If no LVEDP obtained, ask soot blower for fluid rate and volume to be given in recovery. -Fluids will be infused over a minimum of 2 hours. Rate shall not exceed 500 cc/hr. Ask soot blower for fluid volume total to be infused. -If GFR is less than 30, fluids will be infused over a minimum of 3 hours. -In case of reduced EF, CHF, etc., consult soot blower for rate and volume to be administered., Recovery(Cath) 1630 (Due) PRN Medication Order 08/18/2022 08/19/2022 08/20/2022 0.9 % sodium chloride infusion IntraVENous, at 5-250 mL/hr, PRN, if patient receiving piggyback infusions and maintenance fluids are not ordered OR KVO fluids to protect IV site / prevent frequent line interruptions/ long duration, Starting on [facility] 08/20/22 at 1538, For piggyback infusion, administer at same rate as piggyback for a total of 25 mL. Enter 25 mL into dose field and piggyback rate into rate field of order. If piggyback is infusing at a rate less than 100 mL/hr, enter 25 mL into dose field and 100 mL/hr into rate field of order. For KVO fluids, enter rate of 20 mL/hr or less into rate field of order., Pre-Procedure(Cath) 0.9 % sodium chloride infusion IntraVENous, at 5-250 mL/hr, PRN, if patient receiving piggyback infusions and maintenance fluids are not ordered OR KVO fluids to protect IV site / prevent frequent line interruptions/ long duration, Starting on [facility] 08/20/22 at 1604, For piggyback infusion, administer at same rate as piggyback for a total of 25 mL. Enter 25 mL into dose field and piggyback rate into rate field of order. If piggyback is infusing at a rate less than 100 mL/hr, enter 25 mL into dose field and 100 mL/hr into rate field of order. For KVO fluids, enter rate of 20 mL/hr or less into rate field of order., Recovery(Cath) acetaminophen (TYLENOL) tablet 650 mg 650 mg, Oral, EVERY 4 HOURS PRN, Starting on Vivian 08/20/22 at 1604, Until Discontinued, Pain Mild (1-3), Fever, Fever >100.5 F (38 C), Maximum dose of acetaminophen is 4000 mg from all sources in 24 hours., Recovery(Cath) iopamidol (ISOVUE-370) 76 % injection 80 mL 80 mL, IntraVENous, IMG ONCE PRN, 1 dose, Starting on Vivian 08/20/22 at 1530, Until Discontinued, Other nitroGLYCERIN (NITROSTAT) SL tablet 0.4 mg 0.4 mg, SubLINGual, EVERY 5 MIN PRN, 3 doses, Starting on Vivian 08/20/22 at 1538, Until Discontinued, Chest pain, Place 1 tablet under tongue upon chest pain, wait 5 minutes and may repeat up to 3 doses in 15 minutes. Do not crush or break. , Pre-Procedure(Cath) sodium chloride flush 0.9 % injection 5-40 mL 5-40 mL, IntraVENous, PRN, Starting on Vivian 08/20/22 at 1538, Until Discontinued, Line Care, After every IV line use, For Line Patency: Peripheral IV = 5 mL; Midline or Central Line = 10 mL/lumen. If following IV push medication, administer flush at same rate as the IV push. Flush volume is determined by type of infusion therapy being given. For non-viscous solutions use: Peripheral IV = 5 mL Midline or Central Line = 10 mL/lumen For viscous solutions (i.e. blood components, parenteral nutrition, contrast media, or after obtaining blood sample) use: Peripheral IV = 10 mL Midline or Central Line = 20 mL/lumen, Pre-Procedure(Cath) sodium chloride flush 0.9 % injection 5-40 mL 5-40 mL, IntraVENous, PRN, Starting on Vivian 08/20/22 at 1604, Until Discontinued, Line Care, After every IV line use, For Line Patency: Peripheral IV = 5 mL; Midline or Central Line = 10 mL/lumen. If following IV push medication, administer flush at same rate as the IV push. Flush volume is determined by type of infusion therapy being given. For non-viscous solutions use: Peripheral IV = 5 mL Midline or Central Line = 10 mL/lumen For viscous solutions (i.e. blood components, parenteral nutrition, contrast media, or after obtaining blood sample) use: Peripheral IV = 10 mL Midline or Central Line = 20 mL/lumen, Recovery(Cath) Scheduled Medication Order 12/19/2022 12/20/2022 12/21/2022 acetaminophen (TYLENOL) tablet 1,000 mg (COMPLETED) 1,000 mg, Oral, ONCE, 1 dose, On Wed12/21/22 at 1130, Maximum dose of acetaminophen is 4000 mg from all sources in 24 hours. 1146 (Given - Provid er: Rocio Staley RN) Scheduled Medication Order 02/20/2023 02/21/2023 02/22/2023 hyoscyamine (LEVSIN/SL) sublingual tablet 125 mcg (COMPLETED) 125 mcg, SubLINGual, ONCE, 1 dose, On Wed02/22/23 at 1645 1641 (Given - Provid er: Griselda Weiner RN) ketorolac (TORADOL) injection 30 mg (COMPLETED) 30 mg, IntraVENous, ONCE, 1 dose, On Wed02/22/23 at 1630, Do not administer for more than 5 days. 1621 (Given - Provid er: Griselda Weiner RN) morphine injection 4 mg (COMPLETED) 4 mg, IntraVENous, ONCE, 1 dose, On Wed02/22/23 at 1430, If oral and IV narcotics ordered, use oral first and only use IV if oral is ineffective or cannot take oral. Do Not give oral and IV within 1 hour of each other unless specifically ordered. 1433 (Given - Provid er: Griselda Weiner RN) ondansetron (ZOFRAN) injection 4 mg (COMPLETED) 4 mg, IntraVENous, ONCE, 1 dose, On Wed02/22/23 at 1430 1433 (Given - Provid er: Griselda Weiner RN) Continuous Medication Order 02/20/2023 02/21/2023 02/22/2023 0.9 % sodium chloride infusion IntraVENous, at 125 mL/hr, CONTINUOUS, Starting on Wed02/22/23 at 1430 1433 (New Bag - Prov ider: Griselda Weiner RN)1651 (Stopped - Provider: Griselda Weiner RN) PRN Medication Order 02/20/2023 02/21/2023 02/22/2023 iopamidol (ISOVUE-370) 76 % injection 75 mL (COMPLETED) 75 mL, IntraVENous, IMG ONCE PRN, 1 dose, Starting on Wed02/22/23 at 1441, Until Wed02/22/23 at 1441, Other 1441 (Given - Provid er: Shanita Ward) Scheduled Medication Order 03/03/2023 03/04/2023 03/05/2023 amoxicillin-clavulanate (AUGMENTIN) 875-125 MG per tablet 1 tablet (COMPLETED) 1 tablet, Oral, ONCE, 1 dose, On Wed03/05/23 at 1715, Antimicrobial Indications: Skin and Soft Tissue Infection 1718 (Given - Provid er: Griselda Barnhart RN) HYDROcodone-acetaminophen (NORCO) 5-325 MG per tablet 1 tablet (COMPLETED) 1 tablet, Oral, ONCE, 1 dose, On Wed03/05/23 at 1715, Maximum dose of acetaminophen is 4000 mg from all sources in 24 hours. 171 (Given - Provid er: Griselda Barnhart RN) Scheduled Medication Order 07/18/2023 07/19/2023 07/20/2023 dexAMETHasone (DECADRON) 1 MG/ML solution 6 mg 6 mg, Oral, ONCE, 1 dose, On Wed07/20/23 at 1300 1300 (Due) ibuprofen (ADVIL;MOTRIN) tablet 400 mg 400 mg, Oral, ONCE, 1 dose, On Wed07/20/23 at 1245, Do not crush or chew. 1245 (Due) Scheduled Medication Order 08/10/2023 08/11/2023 08/12/2023 famotidine (PEPCID) 20 mg in sodium chloride (PF) 0.9 % 10 mL injection (COMPLETED) 20 mg, IntraVENous, ONCE, 1 dose, On Wed08/12/23 at 1600, IV Push over minimum of 2 minutes - Dilute with 10 mL NS 1619 (Given - Provid er: Murali Hernández RN) ketorolac (TORADOL) injection 30 mg (COMPLETED) 30 mg, IntraVENous, ONCE, 1 dose, On Wed08/12/23 at 1715, Do not administer for more than 5 days. 1723 (Given - Provid er: Murali Hernández RN) morphine (PF) injection 2 mg (COMPLETED) 2 mg, IntraVENous, ONCE, 1 dose, On Vivian 08/12/23 at 1730, If oral and IV narcotics ordered, use oral first and only use IV if oral is ineffective or cannot take oral. Do Not give oral and IV within 1 hour of each other unless specifically ordered. 1722 (Given - Provid er: Murali Hernández RN) morphine injection 4 mg (COMPLETED) 4 mg, IntraVENous, ONCE, 1 dose, On Vivian 08/12/23 at 1600, If oral and IV narcotics ordered, use oral first and only use IV if oral is ineffective or cannot take oral. Do Not give oral and IV within 1 hour of each other unless specifically ordered. 1620 (Given - Provid er: Murali Hernández RN) ondansetron (ZOFRAN) injection 4 mg (COMPLETED) 4 mg, IntraVENous, ONCE, 1 dose, On Vivian 08/12/23 at 1600 1617 (Given - Provid er: Murali Hernández RN) pantoprazole (PROTONIX) 80 mg in sodium chloride 0.9 % 50 mL bolus (COMPLETED) 80 mg, IntraVENous, at 100 mL/hr, Administer over 30 Minutes, ONCE, On Vivian 08/12/23 at 1600, For 1 dose 1701 (New Bag - Prov ider: Murali Hernández RN)1732 (Stopped - Provider: Murali Hernández RN) sodium chloride 0.9 % bolus 1,000 mL (COMPLETED) 1,000 mL (11.1 mL/kg), IntraVENous, at 495.9 mL/hr, Administer over 121 Minutes, ONCE, On Vivian 08/12/23 at 1600, For 1 dose, For adult patients weighing > 55 kg (120 lbs.) and less than <50 years of age initiate 0.9NS at 500 mL/ hr. All bolus orders are to be given over 10 to 15 minutes 1616 (New Bag - Prov ider: Murali Hernández RN)1751 (Stopped - Provider: Murali Hernández RN) PRN Medication Order 08/10/2023 08/11/2023 08/12/2023 hyoscyamine (LEVSIN/SL) sublingual tablet 125 mcg 125 mcg, SubLINGual, EVERY 4 HOURS PRN, Starting on Vivian 08/12/23 at 1713, Until Discontinued, Cramping 1725 (Given - Provid er: Murali Hernández RN) iopamidol (ISOVUE-370) 76 % injection 75 mL (COMPLETED) 75 mL, IntraVENous, IMG ONCE PRN, 1 dose, Starting on Vivian 08/12/23 at 1559, Until Vivian 08/12/23 at 1603, Other 1603 (Given - Provid er: Bianca Morris) Scheduled Medication Order 12/21/2023 12/22/2023 12/23/2023 hydrocodone-acetaminophen (NORCO) tablet 5-325 mg (STARTER PACK) This order is for a take home starter pack of medication. Please document Furnish to patient on the SEP. 1856 ([place] to [place] - Provider: Joyce Pacheco RN) morphine (PF) injection 2 mg (COMPLETED) 2 mg, IntraVENous, ONCE, 1 dose, On Vivian 12/23/23 at 1600, If oral and IV narcotics ordered, use oral first and only use IV if oral is ineffective or cannot take oral. Do Not give oral and IV within 1 hour of each other unless specifically ordered. 1644 (Given - Provid er: Jill Carlisle RN) potassium chloride (KLOR-CON M) extended release tablet 40 mEq (COMPLETED) 40 mEq, Oral, ONCE, 1 dose, On Vivian 12/23/23 at 1600, Do not crush or break. Do not crush, chew, or suck on tablet. Tablet may also be broken in half and each half swallowed separately. 1645 (Given - Provid er: Jill Carlisle RN) Scheduled Medication Order 03/10/2024 03/11/2024 03/12/2024 ondansetron (ZOFRAN) injection 4 mg (COMPLETED) 4 mg, IntraVENous, ONCE, 1 dose, On 03/12/24 at 1315 1313 (Given - Provid er: An Samuels RN) potassium chloride (KLOR-CON M) extended release tablet 40 mEq (COMPLETED) 40 mEq, Oral, ONCE, 1 dose, On 03/12/24 at 1315, Do not crush or break. Do not crush, chew, or suck on tablet. Tablet may also be broken in half and each half swallowed separately. 1313 (Given - Provid er: An Samuels RN) sodium chloride 0.9 % bolus 500 mL (COMPLETED) 500 mL, IntraVENous, at 247.9 mL/hr, Administer over 121 Minutes, ONCE, On 03/12/24 at 1230, For 1 dose, For adult patients weighing > 55 kg (120 lbs.) and less than <50 years of age initiate 0.9NS at 500 mL/ hr. All bolus orders are to be given over 10 to 15 minutes 1238 (New Bag - Prov ider: An Samuels RN)1417 (Stopped - Provider: An Samuels RN) PRN Medication Order 03/10/2024 03/11/2024 03/12/2024 nitroGLYCERIN (NITROSTAT) SL tablet 0.4 mg 0.4 mg, SubLINGual, EVERY 5 MIN PRN, Starting on 03/12/24 at 1229, Until Discontinued, Chest pain, Place 1 tablet under tongue upon chest pain, wait 5 minutes and may repeat up to 3 doses in 15 minutes. Do not crush or break. 1238 (Given - Provid er: An Samuels RN)1243 (Given - Provider: An Samuels RN)1248 (Given - Provider: An Samuels RN) Care Teams (unrecognized sec tion and content) Tour Operator Relationship Specialty Start Date End Date Ena Fung, OIL DISTRIBUTOR - SUPERINTENDENT PRESSURE [address] [place] [address] PCP - General Family Medicine 09/30/17 Tour Operator Relationship Specialty Start Date End Date Ena Fung, OIL DISTRIBUTOR - SUPERINTENDENT [employer]URE [address] [place] [address] PCP - General Family Medicine 09/30/17 Tour Operator Relationship Specialty Start Date End Date Ena Fung OIL DISTRIBUTOR - SUPERINTENDENT [employer]ESSURE [address] [place] [address] PCP - General Family Medicine 09/30/17 Tour Operator Relationship Specialty Start Date End Date Ena Fung, OIL DISTRIBUTOR - SUPERINTENDENT [employer]ESSURE [address] [place] [facility] [address] PCP - General Family Medicine 09/30/17 Tour Operator Relationship Specialty Start Date End Date Ena Fung, OIL DISTRIBUTOR - SUPERINTENDENT PRESSURE [address] [facility] [place] [address] PCP - General Family Medicine 09/30/17 Tour Operator Relationship Specialty Start Date End Date Ena Fung, OIL DISTRIBUTOR - SUPERINTENDENT [employer]ESSURE [address] [place] [facility] [address] PCP - General Family Medicine 09/30/17 Tour Operator Relationship Specialty Start Date End Date Ena Fung, OIL DISTRIBUTOR - SUPERINTENDENT PRESSURE [address] [place] [facility] [address] PCP - General Family Medicine 09/30/17 Tour Operator Relationship Specialty Start Date End Date Ena Fung, OIL DISTRIBUTOR - SUPERINTENDENT [employer]ESSURE [address] [place] [facility] [address] PCP - General Family Medicine 09/30/17 Tour Operator Relationship Specialty Start Date End Date Ena Fung, OIL DISTRIBUTOR - SUPERINTENDENT [employer]ESSURE [address] [place] [facility] [address] PCP - General Family Medicine 09/30/17 Tour Operator Relationship Specialty Start Date End Date Ena Fung, OIL DISTRIBUTOR - SUPERINTENDENT [employer]ESSURE [address] [place] [facility] [address] PCP - General Family Medicine 09/30/17 Tour Operator Relationship Specialty Start Date End Date Ena Fung, OIL DISTRIBUTOR - SUPERINTENDENT [employer]ESSURE [address] [place] [facility] [address] PCP - General Family Medicine 09/30/17 Tour Operator Relationship Specialty Start Date End Date Ena Fung, OIL DISTRIBUTOR - SUPERINTENDENT [employer]ESSURE [address] [place] [facility] [address] PCP - General Family Medicine 09/30/17 Tour Operator Relationship Specialty Start Date End Date Carlo Fungee Elizabeth, OIL DISTRIBUTOR - SUPERINTENDENT [employer]ESSURE [address] [place] [facility] [address] PCP - General Family Medicine 09/30/17 Tour Operator Relationship Specialty Start Date End Date Kenton Ena Elizabeth, OIL DISTRIBUTOR - SUPERINTENDENT [employer]ESSURE [address] [place] [facility] [address] PCP - General Family Medicine 09/30/17 Tour Operator Relationship Specialty Start Date End Date KentonEna Elizabeth, OIL DISTRIBUTOR - SUPERINTENDENT PRESSURE [address] [place] [facility] [address] PCP - General Family Medicine 09/30/17 Tour Operator Relationship Specialty Start Date End Date Ena Fung Elizabeth, OIL DISTRIBUTOR - SUPERINTENDENT [employer]ESSURE [address] [place] [facility] [address] PCP - General Family Medicine 09/30/17 Tour Operator Relationship Specialty Start Date End Date KentonEna Elizabeth, OIL DISTRIBUTOR - SUPERINTENDENT [employer]ESSURE [address] [place] [facility] [address] PCP - General Family Medicine 09/30/17 Tour Operator Relationship Specialty Start Date End Date Ena Fung Elizabeth, OIL DISTRIBUTOR - SUPERINTENDENT PRESSURE [address] [place] [facility] [address] PCP - General Family Medicine 09/30/17 Tour Operator Relationship Specialty Start Date End Date KentonEna Elizabeth, OIL DISTRIBUTOR - SUPERINTENDENT PRESSURE [address] [place] [facility] [address] PCP - General Family Medicine 09/30/17 Tour Operator Relationship Specialty Start Date End Date Ena Fung, OIL DISTRIBUTOR - SUPERINTENDENT [employer]ESSURE [address] [place] [facility] [address] PCP - General Family Medicine 09/30/17 Tour Operator Relationship Specialty Start Date End Date Kenton Ena M, OIL DISTRIBUTOR - SUPERINTENDENT [employer]ESSURE [address] [place] [address] PCP - General Family Medicine 09/30/17 Tour Operator Relationship Specialty Start Date End Date Kenton Ena Elizabeth, OIL DISTRIBUTOR - SUPERINTENDENT PRESSURE [address] [place] [address] PCP - General Family Medicine 09/30/17 Tour Operator Relationship Specialty Start Date End Date Kenton Ena M, OIL DISTRIBUTOR - SUPERINTENDENT PRESSURE [address] [place] [address] PCP - General Family Medicine 09/30/17 Tour Operator Relationship Specialty Start Date End Date Kenton Ena M, OIL DISTRIBUTOR - SUPERINTENDENT PRESSURE [address] [facility] [place] [address] PCP - General Family Medicine 09/30/17 Tour Operator Relationship Specialty Start Date End Date Kenton Ena M, OIL DISTRIBUTOR - SUPERINTENDENT PRESSURE [address] [place] [address] PCP - General Family Medicine 09/30/17 Tour Operator Relationship Specialty Start Date End Date Kenton Ena M, OIL DISTRIBUTOR - SUPERINTENDENT PRESSURE [address] [place] [address] PCP - General Family Medicine 09/30/17 Tour Operator Relationship Specialty Start Date End Date Ena Fung, OIL DISTRIBUTOR - SUPERINTENDENT PRESSURE [address] [place] [address] PCP - General Family Medicine 09/30/17 Tour Operator Relationship Specialty Start Date End Date Ena Fung, OIL DISTRIBUTOR - SUPERINTENDENT PRESSURE [address] [place] [address] PCP - General Family Medicine 09/30/17 INFORMATION SOURCE (unrecogn ized section and content) DATE CREATED AUTHOR 08/27/2022 [facility] DATE CREATED AUTHOR AUTHOR'S ORGANIZ ATION 09/07/2023 [facility] DATE CREATED AUTHOR AUTHOR'S ORGANIZ ATION 03/21/2024 [facility] DATE CREATED AUTHOR AUTHOR'S ORGANIZ ATION 06/13/2024 [facility] FOR RECORDS PERTAINING TO PATIENTS WHO ARE OR HAVE BEEN ENROLLED IN A CHEMICAL DEPENDENCY/SUBSTANCEABUSE PROGRAM, SOME INFORMATION MAY BE OMITTED. This clinical summary was aggregated from multiple sources. Caution should be exercised in using it in the provision of clinical care. This summary normalizes information from multiple sources, and as a consequence, information in this document may materially change the coding, format and clinical context of patient data. In addition, data may be omitted in some cases. CLINICAL DECISIONS SHOULD BE BASED ON THE PRIMARY CLINICAL RECORDS. [facility]. provides no warranty or guarantee of the accuracy or completeness of information in this document.
--- NOTE | 2024-08-20 16:54 | ED.GENADUL1 ---
HPI HPI - General Adult General Chief complaint: Chest Pain Stated complaint: CHEST PAIN Time Seen by Provider: 08/20/24 16:47 Source: patient Mode of arrival: walk-in Limitations: no limitations History of Present Illness HPI narrative: Patient is a 48-year-old female presents to the ER with concerns of chest pain. Patient states she has a history of small vessel coronary artery disease 2 prior stents last stent was placed 5 years ago she took a baby aspirin today and has Brilinta which she takes daily secondary to allergy to Plavix. Patient states she has been compliant with her blood pressure and cholesterol medication. She was exerting herself yesterday lifting boxes of pop when she developed the chest discomfort approximately 1 hour later. Patient was trying to associate the discomfort with sore muscles from lifting but notes the pain radiates from her chest into her neck and jaw and into her back she currently radiates a discomfort 5/10. She did take a nitro tablet last night with some relief before sleeping. She denies any smoking or alcohol use. She notes a strong family history of coronary artery disease citing several family members and older siblings. [employer] is with [facility] in [place] and previous cardiac surgery was at [facility]. Related Data Home Medications ?Medication ?Instructions ?Recorded ?Confirmed amlodipine 10 mg tablet 10 mg PO QDAY 05/09/24 08/20/24 atorvastatin 80 mg tablet 80 mg PO .qhs 05/09/24 08/20/24 cholecalciferol (vitamin D3) 10 10 mcg PO QDAY 05/09/24 08/20/24 mcg (400 unit) capsule (Vitamin D3) ezetimibe 10 mg tablet 10 mg PO QDAY 05/09/24 08/20/24 gabapentin 300 mg capsule 300 mg PO Q12H 05/09/24 08/20/24 hydroxyzine pamoate 25 mg capsule 25 mg PO Q6H PRN anxiety 05/09/24 08/20/24 pantoprazole 40 mg tablet,delayed 40 mg PO Q12H 05/09/24 08/20/24 release paroxetine HCl 40 mg tablet 40 mg PO QDAY 05/09/24 08/20/24 ranolazine 1,000 mg 1,000 mg PO Q12H 05/09/24 08/20/24 tablet,extended release,12 hr ticagrelor 60 mg tablet (Brilinta) 60 mg PO Q12H 05/09/24 08/20/24 trazodone 100 mg tablet 100 mg PO .qhs 05/09/24 08/20/24 cyclobenzaprine 10 mg tablet 10 mg PO DAILY 08/20/24 08/20/24 estradiol 1 mg tablet 1 mg PO DAILY 08/20/24 08/20/24 Allergies Allergy/AdvReac Type Severity Reaction Status Date / Time clopidogrel (From Plavix) AdvReac Severe crystalized Verified 08/20/24 16:47 in brain Opioid HPI Opioid Management Most Recent Opioid Data: Last Pain Scale 7 08/20/24 17:17 08/20/24 Last SEP Pain Assessment 08/20/24 17:17 Review of Systems ROS Constitutional Denies: fever or chills Eyes Denies: change in vision Ears, nose, mouth, and throat Denies: throat pain Cardiovascular Reports: chest pain; Denies: palpitations, edema, swelling of feet/ankles or lightheadedness Respiratory Denies: shortness of breath, cough or wheezing Gastrointestinal Reports: nausea; Denies: abdominal pain, vomiting or coffee grounds in vomit Genitourinary Reports: other (History of Hysterectomy); Denies: painful urination Musculoskeletal Reports: back pain and neck pain; Denies: extremity pain or extremity swelling Integumentary/Breast Denies: rash or itching Neurological Denies: headache Psychiatric Denies: anxiety Endocrine Denies: excessive urination Hematologic/Lymphatic Reports: easy bruising (Brilinta/ ASA 81mg ) Allergic/Immunologic Denies: hives [facility] Medical History (Updated 08/20/24 @ 18:27 by Twila Wade RN) CAD (coronary artery disease) ?I25.10 - Atherosclerotic heart disease of [place] coronary artery without angina pectoris (ICD-10) Heart disease ?I51.9 - Heart disease, unspecified (ICD-10) Surgical History (Updated 08/20/24 @ 18:27 by Twila Wade RN) H/O heart artery stent ?Z95.5 - Presence of coronary angioplasty implant and graft (ICD-10) Hx of cholecystectomy ?Z90.49 - Acquired absence of other specified parts of digestive tract (ICD-10) Hx of spinal fusion ?Z98.1 - Arthrodesis status (ICD-10) Hx of hysterectomy ?Z90.710 - Acquired absence of both cervix and uterus (ICD-10) Social History Little interest or pleasure in doing things: not at all Feeling down, depressed, or hopeless: not at all Exam Narrative Exam Narrative: Nurses notes and vital signs reviewed and patient is not hypoxic. General: The patient appears well but anxious regarding symptoms and her past history. She is in no apparent distress. Patient is resting comfortably on cart. Skin: Warm, dry, no pallor noted. Head: Normocephalic, atraumatic Neck: Supple, trachea mid-line, no tenderness, no lymphadenopathy Eye: Pupils are equal, round and reactive to light, EOMI Ears, Nose, Mouth, and Throat: TM are clear, normal light reflex, oral mucosa is moist, no posterior oropharynx erythema or hypertrophy, uvula is mid-line Cardiovascular: Regular Rate and Rhythm Respiratory: Patient is in no distress, no accessory muscle use, lungs are clear to auscultation, no wheezing, rales or rhonchi. Chest Wall: no tenderness Back: non-tender, no CVA tenderness Musculoskeletal: normal ROM, no tenderness, no swelling GI: Normal bowel sounds, no tenderness to palpation, no midline aortic pulsation. no masses appreciated. No rebound, guarding, or rigidity noted. Neurological: A&O x4 Psychiatric: Cooperative Constitutional Vital Signs, click to edit/add: Last Vital Signs Temp 98.1 F 08/20/24 16:42 Pulse 85 08/20/24 18:10 Resp 13 08/20/24 18:10 BP 139/89 08/20/24 18:00 Pulse Ox 95 08/20/24 18:10 O2 Del Method Room Air 08/20/24 16:42 Course Vital Signs Vital signs: Vital Signs Temperature 98.1 F 08/20/24 16:42 Pulse Rate 94 H 08/20/24 16:42 Respiratory Rate 18 08/20/24 16:42 Pulse Oximetry 99 08/20/24 16:42 Oxygen Delivery Method Room Air 08/20/24 16:42 Temperature 98.1 F 08/20/24 16:42 Pulse Rate 85 08/20/24 18:10 Respiratory Rate 13 08/20/24 18:10 Blood Pressure 139/89 08/20/24 18:00 Pulse Oximetry 95 08/20/24 18:10 Oxygen Delivery Method Room Air 08/20/24 16:42 Medical Decision Making MDM Narrative Medical decision making narrative: Patient presents with concerning history for coronary artery disease she has no tenderness with palpation of her chest wall for concern of muscle strain. Patient took aspirin 81 mg today and Brilinta earlier today. Patient given 0.4 mg sublingual nitroglycerin 2 mg IV morphine 4 mg IV Zofran and Tylenol prophylactically 1 g for patient's history of headaches after taking nitroglycerin. Initial EKG negative for ST elevation. Patient reevaluated after initial sublingual nitro and 2 mg IV morphine she reports her pain down to a 2/10 very tolerable her blood pressure has slowly improved we will place her on a nitroglycerin patch pending lab work Patient reevaluated, sleeping, easily awoken we discussed her potassium being low at 3.0 she is agreeable to oral potassium drink. On repeat troponin prior to admission Repeat troponin. Patient examined at the bedside she was unable to take liquid potassium but preferred to take oral pills. She was given 40 mill equivalents p.o. We discussed her symptoms and history she is currently on Brilinta and aspirin she is agreeable to admission for observation given her past history we will discuss case with hospitalist. Patient's case discussed with Denia briggs hospitalist agreeable to admission. Lab Data Labs: Lab Results 08/20/24 08/20/24 Range/Units 16:51 17:48 WBC 8.9 (4.0-11.0) 10^3/uL RBC 4.63 (4.20-5.40) 10^6/uL Hgb 14.0 (12.0-16.0) g/dL Hct 39.1 (36.0-48.0) % MCV 84.4 (81.0-99.0) fL MCH 30.2 (26.7-34.0) pg MCHC 35.8 H (29.9-35.2) g/dL RDW 12.2 (11.0-15.0) % Plt Count 317 (150-450) 10^3/uL MPV 9.8 (9.5-13.5) fL Neut % (Auto) 55.5 (43.0-75.0) % Lymph % (Auto) 34.6 (20.5-60.0) % [place] % (Auto) 7.2 (1.7-12.0) % Eos % (Auto) 1.6 (0.9-7.0) % Baso % (Auto) 0.9 (0.2-2.0) % Neut # (Auto) 4.9 (1.4-6.5) 10^3/uL Lymph # (Auto) 3.1 (1.2-3.8) 10^3/uL [place] # (Auto) 0.6 (0.3-0.8) 10^3/uL Eos # (Auto) 0.1 (0.0-0.7) 10^3/uL Baso # (Auto) 0.1 (0.0-0.1) 10^3/uL Abs Immat Gran (auto) 0.02 (0.00-0.03) 10^3/uL Imm/Tot Granulo (auto) 0.2 (0.0-0.5) % PT 10.5 (9.0-11.6) sec INR 0.99 APTT 26.5 (22.3-36.2) sec Sodium 141 (136-145) mmol/L Potassium 3.0 L (3.5-5.1) mmol/L Chloride 101 (98-107) mmol/L Carbon Dioxide 28.1 (21.0-32.0) mmol/L Anion Gap 14.9 BUN 4.0 L (7.0-18.0) mg/dL Creatinine 0.77 (0.55-1.02) mg/dL Est GFR ( Amer) >60 (>=60 mL/min/1.73m^2) Est GFR (Non-Af Amer) >60 (>=60 mL/min/1.73m^2) BUN/Creatinine Ratio 5.2 Glucose 113 H (74-106) mg/dL Calcium 9.0 (8.5-10.1) mg/dL Total Bilirubin 0.4 (0.2-1.0) mg/dL AST 23 (15-37) U/L ALT 41 (14-59) U/L Alkaline Phosphatase 117 H (46-116) U/L Troponin I High Sens 7.4 7.9 (4.0-51.3) pg/mL Total Protein 7.6 (6.4-8.2) g/dL Albumin 4.1 (3.4-5.0) g/dL Globulin 3.5 g/dL Albumin/Globulin Ratio 1.2 Lipase 32.0 (16.0-77.0) U/L ECG Data Attestation: I personally reviewed and interpreted this ECG as follows: Interpretation: EKG interpretation: Emergency Department physician interpretation, normal sinus rhythm 91 bpm , t wave inversion in Avl. , no ST segment elevation, normal axis. ( no comparison on file) Discharge Plan Discharge Chief Complaint: Chest Pain Clinical Impression: Chest pain, Hypokalemia Time of Disposition Decision: 18:55 Prescriptions / Home Meds: No Action amlodipine 10 mg tablet 10 mg PO QDAY atorvastatin 80 mg tablet 80 mg PO .qhs cholecalciferol (vitamin D3) [Vitamin D3] 10 mcg (400 unit) capsule 10 mcg PO QDAY ezetimibe 10 mg tablet 10 mg PO QDAY gabapentin 300 mg capsule 300 mg PO Q12H hydroxyzine pamoate 25 mg capsule 25 mg PO Q6H PRN (Reason: anxiety) pantoprazole 40 mg tablet,delayed release (DR/EC) 40 mg PO Q12H paroxetine HCl 40 mg tablet 40 mg PO QDAY ranolazine 1,000 mg tablet extended release 12 hr 1,000 mg PO Q12H Brilinta 60 mg tablet 60 mg PO Q12H trazodone 100 mg tablet 100 mg PO .qhs cyclobenzaprine 10 mg tablet 10 mg PO DAILY estradiol 1 mg tablet 1 mg PO DAILY Print Language: Samoan
[2024-08-20] MEDS: ASPIRIN 81 MG TAB.CHEW 162 MG PO (17:09)
[2024-08-20] MEDS: ACETAMINOPHEN 500 MG TABLET 1000 MG PO (17:09)
[2024-08-20] MEDS: NITROGLYCERIN 0.4 MG BOTTLE PO (17:10)
[2024-08-20] MEDS: ONDANSETRON PF 4 MG/2 ML VIAL IV (17:10)
[2024-08-20 17:17] LABS: Basophils Absolute Auto 0.1 10^3/uL (0.0-0.1); Basophils Percent Auto 0.9 % (0.2-2.0); Eosinophils Absolute Auto 0.1 10^3/uL (0.0-0.7); Eosinophils Percent Auto 1.6 % (0.9-7.0); Hematocrit 39.1 % (36.0-48.0); Immature Granulocytes Abs Auto 0.02 10^3/uL (0.00-0.03); Immature Granulocytes Pct Auto 0.2 % (0.0-0.5); Lymphocytes Absolute Auto 3.1 10^3/uL (1.2-3.8); Lymphocytes Percent Auto 34.6 % (20.5-60.0); Mean Corpuscular HGB Conc 35.8 g/dL (29.9-35.2); Mean Corpuscular Hemoglobin 30.2 pg (26.7-34.0); Mean Corpuscular Volume 84.4 fL (81.0-99.0); Mean Platelet Volume 9.8 fL (9.5-13.5); Monocytes Absolute Auto 0.6 10^3/uL (0.3-0.8); Monocytes Percent Auto 7.2 % (1.7-12.0); Neutrophils Absolute Auto 4.9 10^3/uL (1.4-6.5); Neutrophils Percent Auto 55.5 % (43.0-75.0); Platelet Count 317 10^3/uL (150-450); Red Blood Count 4.63 10^6/uL (4.20-5.40); Red Cell Distribution Width 12.2 % (11.0-15.0); White Blood Count 8.9 10^3/uL (4.0-11.0)
[2024-08-20] MEDS: MORPHINE SULFATE 2 MG/ML SYRINGE IV (17:17)
[2024-08-20 17:33] LABS: Anion Gap 14.9; INR 0.99; Partial Thromboplastin Time 26.5 sec (22.3-36.2); Prothrombin Time 10.5 sec (9.0-11.6)
[2024-08-20 17:35] LABS: Alanine Aminotransferase 41 U/L (14-59); Albumin Globulin Ratio 1.2; Albumin Level 4.1 g/dL (3.4-5.0); Alkaline Phosphatase 117 U/L (46-116); Aspartate Amino Transferase 23 U/L (15-37); BUN Creatinine Ratio 5.2; Bilirubin Total 0.4 mg/dL (0.2-1.0); Carbon Dioxide 28.1 mmol/L (21.0-32.0); Chloride 101 mmol/L (98-107); Estimated GFR (African America >60 (>=60 mL/min/1.73m^2); Estimated GFR (Non-African Ame >60 (>=60 mL/min/1.73m^2); Globulin 3.5 g/dL; Glucose 113 mg/dL (74-106); Sodium 141 mmol/L (136-145); Total Protein 7.6 g/dL (6.4-8.2); Troponin I High Sensitivity 7.4 pg/mL (4.0-51.3)
[2024-08-20 18:09] LABS: Troponin I High Sensitivity 7.9 pg/mL (4.0-51.3)
[2024-08-20] MEDS: NITROGLYCERIN 0.1 MG/HR PATCH.TD24 1 PATCH TD (18:11)
[2024-08-20] MEDS: POTASSIUM CHLORIDE 10 MEQ ER TABLET 40 MEQ PO (18:33)
--- OUTSIDE RECORDS SUMMARY | 2024-08-20 20:02 | XMS_ITS | CCD ---
Author Organization [facility] Care Team Providers Care Penology Professor Name Role Phone Ena Fung Unavailable Unavailable Ena Fung Unavailable Unavailable Ena Fung Unavailable Unavailable Ahmad Unavailable Unavailable Ena Fung Primary Care Provider [phone] Ena Fung Primary Care Provider [phone] Ena Fung Unavailable Ena Fung Primary Care Provider Ena Fung Primary Care Provider Ena Luis APRN, CNP Primary Care Provider Ena Luis APRN, CNP Primary Care Provider Ena Fung CNP Primary Care Provider Ena Fung CNP Primary Care Provider [phone] Ena Luis APRN, CNP Primary Care Provider Ena Luis APRN, CNP Primary Care Provider Ena Luis APRN, CNP Primary Care Provider Ena Luis APRN, CNP Primary Care Provider ENA FUNG Primary Care Unavailable SAILAJA MORALEZ Attending Unavailable SAILAJA MORALEZ Consulting Unavailable SAILAJA MORALEZ Admitting Unavailable ZAIDAT, OSAMA O Consulting Unavailable Ena Fung CNP Primary Care Provider [place] BONUS CLERK - TIMBER BUYER, Ena M Primary Care Provider [place] BONUS CLERK - TIMBER BUYER, Ena M Primary Care Provider [place] BONUS CLERK-TIMBER BUYER, Ena Hillary Primary Care Eve vailable Link BONUS CLERK-TIMBER BUYER, Mell Daniels Attending Unava bernie Lucero MD, Asim De Oliveira Attending Unavailable [place] BONUS CLERK-TIMBER BUYER, Ena Hillary Primary Care Eve vailable [place], [...] rash, Skin Rashes / Eruption of skin [facility] Platelet Inhibitors (P2Y12, not including aspirin) (2 sources) clopidogrel; Translations: [Plavix] Drug Allergy 2 [facility] Serotonin Reuptake Inhibitors (SSRIs) (1 source) Citalopram; Translations: [CeleXA 10 MG Oral Tablet] Drug Allergy 4 Suicidal thoughts [facility] (20 sources) cephalexin; Translations: [Keflex] Drug Allergy 4 rash, Skin Rashes / Eruption of skin [facility] (20 sources) -No Environmental Allergies Allergy to substance (disorder) [facility] (6 sources) -No Known Food Allergies Allergy to substance (disorder) [facility] Work Phone: (20 sources) Cephalosporins (Antibiotic); Translations: [CEPHALOSPORINS] Propensity to adverse reactions to drug 4 Hives [place], [place] (20 sources) Cephalexin Drug Allergy 0 [place] (20 sources) clopidogrel; Translations: [Plavix] Drug Allergy 2 [facility] (20 sources) clopidogrel; Translations: [CLOPIDOGREL] Drug Allergy 2 [facility] (2 sources) Citalopram; Translations: [CeleXA 10 MG Oral Tablet] Drug Allergy 4 Suicidal thoughts [facility] Medications Current Medications Medication Drug Class(es) Dates Sig (Normalized) Sig (Original) *CPAP AND SUPPLIES Miscellaneous (9 sources) Start: 02-01-2023 *CPAP AND SUPPLIES Miscellaneous 02/01/2023 Provider: *Environmental Field Services Technician Miscellaneous (not specified) (18 sources) Start: 11-26-2021 *Environmental Field Services Technician Miscellaneous (not specified) 11/26/2021 Provider: Ena Fung [...] ORCO) 5-325 MG per tablet 1 tablet [id number] actuat albuterol 0.09 mg/actuat metered dose [...] MG tablet Indications: Coronary artery disease involving [place] coronary artery of [place] heart without angina pectoris , S/P PTCA (percutaneous transluminal coronary angioplasty) , Essential hypertension , Mixed hyperlipidemia Take 1 tablet by mouth daily 90 tablet 3 02/23/2019 06/08/2019 Discontinued (Therapy completed) Start: 08-13-2018 End: 06-17-2020 AMLODIPINE 2.5 mg [facility] 08/13 - 06/17/2020 Provider: Start: 08-13-2018 End: 08-13-2018 AMLODIPINE 2.5 mg [facility] 08/13 - 08/13/2018 Provider: take 1 tablet [...] 30 tablet 12 02/22/2020 Active estrogens, esterified (half-way) 1.25 mg / methylTESTOSTERone 2.5 mg oral [...] tablets by mouth twice daily, then take [id number] tablet by mouth ticagrelor (BRILINTA) 90 MG TABS tablet Take 90 mg by mouth 2 times daily Samples give 2 boxes Lot [id number] Exp: 02/06 0 10/10/2019 Discontinued (Stop Taking [...] greater than 100.5 F (38 C), Starting [facility] 04/20/19 at 0445 Maximum dose of acetaminophen [...] by mouth every six hours as needed izsrqfhuoa-tvzwngzaxuwzm-cbui 50-325-40 mg oral tablet 06/23/2018 take 1 [...] 11/19/2022 - 11/19/2022 Provider: Ena Fung CNP [id number]-[id number]-VPG F 50-325-40 mg MISC (8 sources) Start: 06-23-2018 End: 06-23-2018 ENLNWRLJJM-JKVTSNIBWCTCC-ZJL F 50-325-40 mg MISC 06/23/2018 - 06/23/2018 Provider: MVJSYAQGRY-LCQBTHBIQHZXK-AEP F 50-325-40 mg MISC (20 sources) Start: 06-23-2018 End: 06-17-2020 XITDVSLQKF-QWBYJGQRMRVJG-OWA F 50-325-40 mg MISC 06/23/2018 - 06/17/2020 Provider: Start: 06-23-2018 End: 06-23-2018 XHDFNSGLAJ-DKIMNGWHHQOVV-EHO F 50-325-40 mg MISC 06/23/2018 - 06/23/2018 Provider: CALCIUM 600 600 mg calcium (1,500 MG) MISC (8 sources) Start: 03-23-2017 End: 03-23-2017 CALCIUM 600 600 mg calcium (1,500 MG) MISC 03/23/2017 - 03/23/2017 Provider: CALCIUM 600 600 mg calcium (1,500 MG) MISC (20 sources) Start: 03-23-2017 End: 06-17-2020 CALCIUM 600 600 mg calcium (1,500 MG) [facility] 03/23/2017 - 06/17/2020 Provider: Start: 03-23-2017 End: 03-23-2017 CALCIUM 600 600 mg calcium ( 1,500 MG) [facility] 03/23/2017 - 03/23/2017 Provider: calcium carbonate 1500 [...] 04-26-2018 [facility] daily as needed for [...] Essential hypertension , Coronary artery disease involving [place] coronary artery of [place] heart without angina pectoris , S/P PTCA (percutaneous transluminal coronary angioplasty) Take 1 tablet by mouth once daily 90 tablet 3 09/14/2022 Active Start: 08-12-2021 take 1 tablet by troy th once daily metoprolol succinate (TOPROL XL) 50 MG extended release tablet Indications: Dizziness , Mixed hyperlipidemia , Essential hypertension , Coronary artery disease involving [place] coronary artery of [place] heart without angina pectoris , S/P PTCA (percutaneous transluminal coronary angioplasty) Take 1 tablet by mouth once daily 90 tablet 3 08/12/2021 Active Start: 08-05-2020 take 1 tablet by troy th once daily metoprolol succinate (TOPROL XL) 50 MG extended release tablet Indications: Dizziness , Mixed hyperlipidemia , Essential hypertension , Coronary artery disease involving [place] coronary artery of [place] heart without angina pectoris , S/P PTCA (percutaneous transluminal coronary angioplasty) Take 1 tablet by mouth once daily 90 tablet 3 08/05/2020 Active Start: 06-22-2019 take 1 tablet by troy th once daily metoprolol succinate (TOPROL XL) 50 MG extended release tablet Indications: Dizziness , Mixed hyperlipidemia , Essential hypertension , Coronary artery disease involving [place] coronary artery of [place] heart without angina pectoris , S/P PTCA [...] 11-12-2017 End: 06-17-2020 NICOTINE 21 MG/24 HR [facility] - 06/17/2020 Provider: Start: 11-12-2017 End: 11-12-2017 NICOTINE 21 MG/24 HR [facility] - 11/12/2017 Provider: nitroglycerin 0.4 mg sublingual [...] (DEFINITY) injection 1.65 mg polyethylene glycol [id number] mg powder for oral solution (4 sources) [...] Provider: Start: 01-03-2021 take 1 tablet by [facility] once daily potassium chloride (KLOR-CON M) [...] 01-20-2018 End: 06-17-2020 POTASSIUM CHLORIDE 10 MEQ NE SC 01/20/2018 - 06/17/2020 Provider: Start: 01-20-2018 End: 06-17-2020 KLOR-CON M20 20 MEQ MISC 11/2017 - 06/17/2020 Provider: Start: 01-20-2018 End: 01-20-2018 KLOR-CON M20 20 MEQ MISC 11/2017 - 01/20/2018 Provider: Start: 01-20-2018 End: 01-20-2018 POTASSIUM CHLORIDE 10 MEQ NE SC 01/20/2018 - 01/20/2018 Provider: predniSONE 20 [...] taste. Start: 10-06-2021 take 1 tablet by [facility] twice daily 50 mg, Oral, 2 TIMES DAILY, First dose on Wed10/06/21 at 2300 It is not recommended to crush, break, or chew immediate release tablets due to bitter taste. Start: 01-02-2021 take 1 tablet by [facility] twice daily 50 mg, Oral, 2 TIMES DAILY, First dose on Wed01/02/21 at 1200 It is not recommended to crush, break, or chew immediate release tablets due to bitter taste. Start: 08-28-2020 take 1 tablet by [facility] twice daily 50 mg, Oral, 2 TIMES DAILY, First dose on Wed08/28/20 at 2100 It is not recommended to crush, break, or chew immediate release tablets due to bitter taste. Start: 08-05-2020 take 2 tablets by [facility] twice daily topiramate (TOPAMAX) 25 MG tablet [...] Active Start: 12-28-2019 take 1 tablet by [facility] twice daily 50 mg, Oral, 2 [...] Coronary atherosclerosis of unspecified type of vessel, [place] or graft; Translations: [Acute coronary syndrome] Onset: [...] Rodriguez MD on 06/06/2024 3:53 PM Normal [facility] XR RIBS RT 3 VWS W PA [...] Rodriguez MD on 06/05/2024 6:38 PM Normal [facility] XR SHOULDER RT MIN 2 VWSon 1 [...] Janae Contreras on 06/05/2024 6:40 PM Normal [facility] Basic Metabolic Panelon 08- Anion gap [Moles/Vol] 12 mmol/L 9 - 17 mmol/L [facility] Calcium [Mass/Vol] 9.0 mg/dL 8.6 - 10. 4 mg/dL [facility] Chloride [Moles/Vol] 98 mmol/L 98 - 10 7 mmol/L [facility] CO2 [Moles/Vol] 26 mmol/L 20 - 31 mmol/L [facility] Creatinine [Mass/Vol] 0.7 mg/dL 0.5 - 0.9 mg/dL [facility] Est, Glom Filt Rate - [facility] Masabi Comment on above: These results are not [...] 114 mg/dL High 70 - 99 mg/dL [facility] Interpretation and review of laboratory results Abnormal [facility] Potassium [Moles/Vol] 3.5 mmol/L Low 3.7 - 5.3 mmol/L [facility] Sodium [Moles/Vol] 136 mmol/L 135 - 144 mmol/L [facility] Urea nitrogen [Mass/Vol] 9 mg/dL 6 - 20 mg/dL [facility] Urea nitrogen/Creatinine [Mass ratio] 13 mg/mg 9 - 20 [facility] Basic Metabolic Profon 03-12 Anion gap [Moles/Vol] 12 mmol/L Normal 9-17 [facility] Comment on above: Performed By: #### B MP, CBC #### [facility] [address] [place], [place] [phone] Edging Catcher: Jordon Tai MD BUN/CRE Ratio 13 Normal 9-20 [facility] Comment on above: Performed By: #### B MP, CBC #### [facility] [address] [place] [address] Edging Catcher: Jordon Tai MD Calcium [Mass/Vol] 9.0 mg/dL Normal 8.6-10.4 [facility] Comment on above: Performed By: #### B RUPAL, CBC #### [facility] [address] [place], [place] [phone] Edging Catcher: Jordon Tai MD Chloride [Moles/Vol] 98 mmol/L Normal 98-107 [facility] Comment on above: Performed By: #### B RUPAL, CBC #### [facility] [address] [place], [place] [phone] Edging Catcher: Jordon Tai MD CO2 [Moles/Vol] 26 mmol/L Normal 20-[address] [facility] Comment on above: Performed By: #### B RUPAL, CBC #### [facility] [address] [place], [place] [phone] Edging Catcher: Jordon Tai MD Creatinine [Mass/Vol] 0.7 mg/dL Normal 0.5-0.9 [facility] Comment on above: Performed By: #### B RUPAL, CBC #### [facility] [address] [place] [address] Edging Catcher: Jordon Tai MD GFR/1.73 sq M.predicted among non-blacks MDRD (S/P/Bld) [Vol rate/Area] mL/min/{1.73_m2} Normal >60 [facility] Comment on above: Result Comment: These [...] Performed By: #### B RUPAL, CBC #### [facility] [address] [place] [address] Dr[place], [place] [phone] Edging Catcher: Jordon Tai MD Glucose [Mass/Vol] 114 mg/dL High 70-99 [facility] Comment on above: Performed By: #### B RUPAL, CBC #### [address] [place] [address] Edging Catcher: Jordon Tai MD Potassium [Moles/Vol] 3.5 mmol/L Low 3.7-5.3 [facility] Comment on above: Performed By: #### B RUPAL, CBC #### [address] [place] [address] Edging Catcher: Jordon Tai MD Sodium [Moles/Vol] 136 mmol/L Normal 135-144 [facility] Comment on above: Performed By: #### B RUPAL, CBC #### [facility] [address] [place] [address] [place] [address] Edging Catcher: Jordon Tai MD Urea nitrogen [Mass/Vol] 9 mg/dL Normal 6-20 [facility] Comment on above: Performed By: #### B RUPAL, CBC #### [address] [place], [place] [phone] Edging Catcher: Jordon Tai MD CBC with Auto Differentialon 03-12-2024 Basophils (Bld) [#/Vol] 0.06 10*3/uL [facility] Basophils/100 WBC (Bld) 1 % 0 - 2 % [facility] Eosinophils (Bld) [#/Vol] 0.08 10*3/uL [facility] Eosinophils/100 WBC (Bld) 1 % 1 - 4 % [facility] Erythrocyte distribution width (RBC) [Ratio] 12.1 % 11.8 - 14.4 % [facility] Hematocrit (Bld) [Volume fraction] 37.1 % 36.3 - 47.1 % [facility] Hemoglobin (Bld) [Mass/Vol] 13.1 g/dL 11.9 - 15.1 g/dL [facility] Immature granulocytes (Bld) [#/Vol] [facility] Immature granulocytes/100 WBC (Bld) 0 % 0 [facility] Interpretation and review of laboratory results Abnormal [facility] Lymphocytes/100 WBC (Bld) 27 % 24 - 43 % [facility] Lymphocytes/100 WBC (Bld) 2.12 % [facility] MCH (RBC) [Entitic mass] 29.6 pg 25.2 - 33.5 pg [facility] MCHC (RBC) [Mass/Vol] 35.3 g/dL High 28.4 - 34.8 g/dL [facility] MCV (RBC) [Entitic vol] 83.9 fL 82.6 - 102.9 fL [facility] Monocytes/100 WBC (Bld) 7 % 3 - 12 % [facility] Monocytes/100 WBC (Bld) 0.55 % [facility] Neutrophils/100 WBC (Bld) 64 % 36 - 65 % [facility] Nucleated RBC/100 WBC (Bld) [Ratio] 0.0 % 0.0 per 100 WBC [facility] Platelet mean volume (Bld) [Entitic vol] 9.7 fL 8.1 - 13.5 fL [facility] Platelets (Bld) [#/Vol] 295 10*3/uL [facility] RBC (Bld) [#/Vol] 4.42 10*6/uL 3.95 - 5.11 m/uL [facility] Segmented neutrophils/100 WBC (Bld) 4.97 % [facility] WBC other (Bld) [#/Vol] 7.[address] [facility] CBC with Diffon 03-12-2024 Abs. Basophil 0.06 k/uL Normal 0.00-0.20 [facility] Comment on above: Performed By: #### B MP, CBC #### [facility] [address] [place] [address] Dr. [place], [facility] Edging Catcher: Jordon Tai MD Abs.Imm.Granulocyte <0.03 Normal 0.00-0.30 [facility] Comment on above: Performed By: #### B MP, CBC #### [address] [place] [address] Edging Catcher: Jordon Tai MD Abs.Neutrophil (Seg) 4.97 k/uL Normal 1.50-8.10 [facility] Comment on above: Performed By: #### B MP, CBC #### [address] [place], [facility] Edging Catcher: Jordon Tai MD Basophils/100 WBC (Bld) 1 % Normal 0-2 [facility] Comment on above: Performed By: #### B MP, CBC #### [address] [place] [address] Edging Catcher: Jordon Tai MD Eosinophils (Bld) [#/Vol] 0.08 10*3/uL Normal 0.00-0.44 [facility] Comment on above: Performed By: #### B MP, CBC #### [address] [place], [facility] Edging Catcher: Jordon Tai MD Eosinophils/100 WBC (Bld) 1 % Normal 1-4 [facility] Comment on above: Performed By: #### B MP, CBC #### [facility] [address] [place] [address] [place] [phone] Edging Catcher: Jordon Tai MD Erythrocyte distribution width (RBC) [Ratio] 12.1 % Normal 11.8-14.4 [facility] Comment on above: Performed By: #### B MP, CBC #### [facility] [address] [place] [address] [place], [place] [phone] Edging Catcher: Jordon Tai MD Hematocrit (Bld) [Volume fraction] 37.1 % Normal 36.3-47.1 [facility] Comment on above: Performed By: #### B MP, CBC #### [facility] [address] [place] [address] Dr[place], [place] [phone] Edging Catcher: Jordon Tai MD Hemoglobin (Bld) [Mass/Vol] 13.1 g/dL Normal 11.9-15.1 [facility] Comment on above: Performed By: #### B MP, CBC #### [facility] [address] [place] [address] Dr. [place], [place] [phone] Edging Catcher: Jordon Tai MD Immature granulocytes/100 WBC (Bld) 0 % Normal 0 [facility] Comment on above: Performed By: #### B MP, CBC #### [address] [place], [place] [phone] Edging Catcher: Jordon Tai MD Lymphocytes (Bld) [#/Vol] 2.12 10*3/uL Normal 1.10-3.70 [facility] Comment on above: Performed By: #### B MP, CBC #### [facility] [address] [place] [address] Dr. [place], [place] [phone] Edging Catcher: Jordon Tai MD Lymphocytes/100 WBC (Bld) 27 % Normal 24-43 [facility] Comment on above: Performed By: #### B MP, CBC #### [facility] [address] [place] [address] Edging Catcher: Jordon Tai MD MCH (RBC) [Entitic mass] 29.6 pg Normal 25.2-33.5 [facility] Comment on above: Performed By: #### B MP, CBC #### [address] [place] [address] Edging Catcher: Jordon Tai MD MCHC (RBC) [Mass/Vol] 35.3 g/dL High 28.4-34.8 [facility] Comment on above: Performed By: #### B MP, CBC #### [address] [place] [phone] Edging Catcher: Jordon Tai MD MCV (RBC) [Entitic vol] 83.9 fL Normal 82.6-102.9 [facility] Comment on above: Performed By: #### B MP, CBC #### [address] [place] [phone] Edging Catcher: Jordon Tai MD Monocytes (Bld) [#/Vol] 0.55 10*3/uL Normal 0.10-1.20 [facility] Comment on above: Performed By: #### B MP, CBC #### [address] [place] [address] Edging Catcher: Jordon Tai MD Monocytes/100 WBC (Bld) 7 % Normal 3-12 [facility] Comment on above: Performed By: #### B MP, CBC #### [address] [place], [place] [address] Edging Catcher: Jordon Tai MD Neutrophil (Seg) 64 % Normal 36-65 [facility] Comment on above: Performed By: #### B MP, CBC #### [address] [place] [phone] Edging Catcher: Jordon Tai MD NRBC Automated 0.0 per 100 WBC Normal 0.0 [facility] Comment on above: Performed By: #### B MP, CBC #### [address] [place], [place] [phone] Edging Catcher: Jordon Tai MD Platelet mean volume (Bld) [Entitic vol] 9.7 fL Normal 8.1-13.5 [facility] Comment on above: Performed By: #### B MP, CBC #### [facility] [address] [place], [place] [phone] Edging Catcher: Jordon Tai MD Platelets (Bld) [#/Vol] 295 10*3/uL Normal 138-453 [facility] Comment on above: Performed By: #### B MP, CBC #### [facility] [address] [place] [address] [place], [place] [phone] Edging Catcher: Jordon Tai MD RBC (Bld) [#/Vol] 4.42 10*6/uL Normal 3.95-5.11 [facility] Comment on above: Performed By: #### B MP, CBC #### [facility] [address] [place] [address] Dr[place], [place] [phone] Edging Catcher: Jordon Tai MD WBC (Bld) [#/Vol] 7.8 10*3/uL Normal 3.5-11.3 [facility] Comment on above: Performed By: #### B MP, CBC #### [facility] [address] [place] [address] Dr. [place], [place] [phone] Edging Catcher: Jordon Tai MD Portable XR Chest AP single viewon 03-12-2024 No radiographic evid ence of acute pulmonary disease. [facility] EXAMINATION: ONE XRAY VIEW OF THE CHEST 03/12/2024 12:26 pm COMPARISON: Chest x-ray dated 01/25/2024. HISTORY: ORDERING SYSTEM PROVIDED HISTORY: chest pain TECHNOLOGIST PROVIDED HISTORY: chest pain FINDINGS: HEART/MEDIASTINUM: The cardiomediastinal silhouette is within normal limits. PLEURA/LUNGS: There are no focal consolidations or pleural effusions. There is no appreciable pneumothorax. BONES/SOFT TISSUE: No acute abnormality. Cardiac loop recorder is noted. [facility] Alan Huitron MD - 03/12/2024 EXAMINATION: [...] No radiographic evidence of acute pulmonary disease. [facility] Radiology Study observation (narrative) [facility] Portable XR Chest AP single viewOrdered By: Alan Huitron on 03-12-2024 [facility] Work Phone: Troponinon 03-12-2024 Troponin I.cardiac High sensitivity method [Mass/Vol] 6 ng/L 0 - 14 ng/L [facility] Comment on above: High Sensitivity Tro ponin values cannot be compared with other Troponin methodologies. [facility] Troponin, High Sens 6 ng/L Normal 0-14 [facility] Comment on above: Result Comment: High Sensitivity Troponin values cannot be compared with other Troponin methodologies. Performed By: #### T ROPI #### [facility] [address] [place] [address] Edging Catcher: Jordon Tai MD Troponin I.cardiac High sensitivity method [Mass/Vol] ng/L 0 - 14 ng/L [facility] Comment on above: High Sensitivity Tro ponin values cannot be compared with other Troponin methodologies. [facility] Troponin, High Sens <6 Normal 0-14 [facility] Comment on above: Result Comment: High Sensitivity Troponin values cannot be compared with other Troponin methodologies. Performed By: #### B MP, CBC #### [facility] [address] [place] [address] Edging Catcher: Jordon Tai MD XR CHEST PORTABLEon 03-12-20 [...] Alan Huitron MD 03/12/24 Final result Normal [facility] Basic Metabolic Profon 01-24 Potassium [Moles/Vol] 3.0 mmol/L Low 3.7-5.3 [facility] Comment on above: Performed By: #### C DP, LIP, CP, TROPI #### [facility] [address] [place] [address] [place] [address] Edging Catcher: Jordon Tai MD Anion gap [Moles/Vol] 14 mmol/L Normal 9-17 [facility] Comment on above: Performed By: #### C DP, LIP, CP, TROPI #### [address] [place] [address] Edging Catcher: Jordon Tai MD BUN/CRE Ratio 11 Normal 9-20 [facility] Comment on above: Performed By: #### C DP, LIP, CP, TROPI #### [facility] [address] [place] [address] [place] [address] Edging Catcher: Jordon Tai MD Calcium [Mass/Vol] 8.7 mg/dL Normal 8.6-10.4 [facility] Comment on above: Performed By: #### C DP, LIP, CP, TROPI #### [address] [place] [address] Edging Catcher: Jordon Tai MD Chloride [Moles/Vol] 101 mmol/L Normal 98-107 [facility] Comment on above: Performed By: #### C DP, LIP, CP, TROPI #### [facility] [address] [place] [address] Edging Catcher: Jordon Tai MD CO2 [Moles/Vol] 23 mmol/L Normal 20-[address] [facility] Comment on above: Performed By: #### C DP, LIP, CP, TROPI #### [facility] [address] [place], [place] [phone] Edging Catcher: Jordon Tai MD Creatinine [Mass/Vol] 0.7 mg/dL Normal 0.5-0.9 [facility] [facility] Comment on above: Performed By: #### C DP, LIP, CP, TROPI #### [facility] [address] [place] [address] Edging Catcher: Jordon Tai MD GFR/1.73 sq M.predicted among non-blacks MDRD (S/P/Bld) [Vol rate/Area] mL/min/{1.73_m2} Normal >60 [facility] Comment on above: Result Comment: These [...] #### C DP, LIP, CP, TROPI #### [facility] [address] [place] [address] Edging Catcher: Jordon Tai MD Glucose [Mass/Vol] 109 mg/dL High 70-99 [facility] Comment on above: Performed By: #### C DP, LIP, CP, TROPI #### [facility] [address] [place], [place] [phone] Edging Catcher: Jordon Tai MD Sodium [Moles/Vol] 138 mmol/L Normal 135-144 [facility] Comment on above: Performed By: #### C DP, LIP, CP, TROPI #### [facility] [address] [place] [address] Dr. [place], [place] [phone] Edging Catcher: Jordon Tai MD Urea nitrogen [Mass/Vol] 8 mg/dL Normal 6-20 [facility] Comment on above: Performed By: #### C DP, LIP, CP, TROPI #### [facility] [address] [place] [address] Dr. [place], [facility] Edging Catcher: Jordon Tai MD Brain Natri. Peptideon 01-24 Pro-BNP <36 Normal <300 [facility] Comment on above: Result Comment: An age-independent cutoff point of 300 pg/ml has a 98% negative predictive value excluding acute heart failure. Performed By: #### C DP, LIP, CP, TROPI #### [address] [place], [facility] Edging Catcher: Jordon Tai MD CBC with Diffon 01-25-2024 Abs. Basophil 0.04 k/uL Normal 0.00-0.20 [facility] Comment on above: Performed By: #### C DP, LIP, CP, TROPI #### [address] [place], [place] [phone] Edging Catcher: Jordon Tai MD Abs.Imm.Granulocyte <0.03 Normal 0.00-0.30 [facility] Comment on above: Performed By: #### C DP, LIP, CP, TROPI #### [address] [place], [place] [phone] Edging Catcher: Jordon Tai MD Abs.Neutrophil (Seg) 4.81 k/uL Normal 1.50-8.10 [facility] Comment on above: Performed By: #### C DP, LIP, CP, TROPI #### [address] [place], [place] [phone] Edging Catcher: Jordon Tia MD Basophils/100 WBC (Bld) 1 % Normal 0-2 [facility] Comment on above: Performed By: #### C DP, LIP, CP, TROPI #### [address] [place], [place] 2015683 Edging Catcher: Jordon Tai MD Eosinophils (Bld) [#/Vol] 0.14 10*3/uL Normal 0.00-0.44 [facility] Comment on above: Performed By: #### C DP, LIP, CP, TROPI #### [address] [place] [address] Edging Catcher: Jordon Tai MD Eosinophils/100 WBC (Bld) 2 % Normal 1-4 [facility] Comment on above: Performed By: #### C DP, LIP, CP, TROPI #### [address] [place], [facility] Edging Catcher: Jordon Tai MD Erythrocyte distribution width (RBC) [Ratio] 12.2 % Normal 11.8-14.4 [facility] Comment on above: Performed By: #### C DP, LIP, CP, TROPI #### [address] [place], [facility] Edging Catcher: Jordon Tai MD Hematocrit (Bld) [Volume fraction] 35.1 % Low 36.3-47.1 [facility] Comment on above: Performed By: #### C DP, LIP, CP, TROPI #### [address] [place] [address] Edging Catcher: Jordon Tai MD Hemoglobin (Bld) [Mass/Vol] 12.7 g/dL Normal 11.9-15.1 [facility] Comment on above: Performed By: #### C DP, LIP, CP, TROPI #### [address] [place] [address] Edging Catcher: Jordon Tai MD Immature granulocytes/100 WBC (Bld) 0 % Normal 0 [facility] Comment on above: Performed By: #### C DP, LIP, CP, TROPI #### [facility] [address] [place] [phone] Edging Catcher: Jordon Tai MD Lymphocytes (Bld) [#/Vol] 2.41 10*3/uL Normal 1.10-3.70 [facility] Comment on above: Performed By: #### C DP, LIP, CP, TROPI #### [address] [place] [address] Edging Catcher: Jordon Tai MD Lymphocytes/100 WBC (Bld) 30 % Normal 24-43 [facility] Comment on above: Performed By: #### C DP, LIP, CP, TROPI #### [address] [place], [place] [address] Edging Catcher: Jordon Tai MD MCH (RBC) [Entitic mass] 29.7 pg Normal 25.2-33.5 [facility] Comment on above: Performed By: #### C DP, LIP, CP, TROPI #### [address] [place] [address] Edging Catcher: Jordon Tai MD MCHC (RBC) [Mass/Vol] 36.2 g/dL High 28.4-34.8 [facility] Comment on above: Performed By: #### C DP, LIP, CP, TROPI #### [address] [place] [phone] Edging Catcher: Jordon Tai MD MCV (RBC) [Entitic vol] 82.0 fL Low 82.6-102.9 M [facility] Comment on above: Performed By: #### C DP, LIP, CP, TROPI #### [address] [place] [phone] Edging Catcher: Jordon Tai MD Monocytes (Bld) [#/Vol] 0.60 10*3/uL Normal 0.10-1.20 [facility] Comment on above: Performed By: #### C DP, LIP, CP, TROPI #### [facility] [address] [place], [place] 1898483 Edging Catcher: Jordon Tai MD Monocytes/100 WBC (Bld) 8 % Normal 3-12 M [facility] Comment on above: Performed By: #### C DP, LIP, CP, TROPI #### [address] [place], [place] [address] Edging Catcher: Jordon Tai MD Neutrophil (Seg) 59 % Normal 36-65 [facility] Comment on above: Performed By: #### C DP, LIP, CP, TROPI #### [address] [place], [facility] Edging Catcher: Jordon Tai MD NRBC Automated 0.0 per 100 WBC Normal 0.0 [facility] Comment on above: Performed By: #### C DP, LIP, CP, TROPI #### [address] [place], [facility] Edging Catcher: Jordon Tai MD Platelet mean volume (Bld) [Entitic vol] 10.0 fL Normal 8.1-13.5 [facility] Comment on above: Performed By: #### C DP, LIP, CP, TROPI #### [address] [place], [place] [phone] Edging Catcher: Jordon Tai MD Platelets (Bld) [#/Vol] 293 10*3/uL Normal 138-453 [facility] Comment on above: Performed By: #### C DP, LIP, CP, TROPI #### [address] [place] [address] Edging Catcher: Jordon Tai MD RBC (Bld) [#/Vol] 4.28 10*6/uL Normal 3.95-5.11 [facility] Comment on above: Performed By: #### C DP, LIP, CP, TROPI #### [facility] [address] [place] [address] Edging Catcher: Jordon Tai MD WBC (Bld) [#/Vol] 8.0 10*3/uL Normal 3.5-11.3 [facility] Comment on above: Performed By: #### C DP, LIP, CP, TROPI #### [facility] [address] [place] [address] Edging Catcher: Jordon Tai MD D-Dimer Teston 01-25-2024 D-Dimer Test 0.40 ug/mL FEU Normal 0.00-0.59 [facility] Comment on above: Result Comment: When combined [...] #### C DP, LIP, CP, TROPI #### [facility] [address] [place], [place] [phone] Edging Catcher: Jordon Tai MD Magnesiumon 01-25-2024 Magnesium [Mass/Vol] 1.9 mg/dL Normal 1.6-2.6 [facility] Comment on above: Performed By: #### C DP, LIP, CP, TROPI #### [facility] [address] [place] [phone] Edging Catcher: Jordon Tai MD Troponinon 01-25-2024 Troponin, High Sens <6 Normal 0-14 [facility] Comment on above: Result Comment: High Sensitivity Troponin values cannot be compared with other Troponin methodologies. Performed By: #### C DP, LIP, CP, TROPI #### [facility] [address] [place] [phone] Edging Catcher: Jordon Tai MD XR CHEST (2 VW)on [...] Janae Espinoza MD 01/25/24 Final result Normal [facility] CBC with Auto Differentialon 12-23-2023 Basophils (Bld) [#/Vol] 0.06 10*3/uL [facility] Basophils/100 WBC (Bld) 1 % 0 - 2 % [facility] Eosinophils (Bld) [#/Vol] 0.09 10*3/uL [facility] Eosinophils/100 WBC (Bld) 1 % 1 - 4 % [facility] Erythrocyte distribution width (RBC) [Ratio] 11.8 % 11.8 - 14.4 % [facility] Hematocrit (Bld) [Volume fraction] 40.0 % 36.3 - 47.1 % [facility] Hemoglobin (Bld) [Mass/Vol] 14.3 g/dL 11.9 - 15.1 g/dL [facility] Immature granulocytes (Bld) [#/Vol] [facility] Immature granulocytes/100 WBC (Bld) 0 % 0 [facility] Interpretation and review of laboratory results Abnormal [facility] Lymphocytes/100 WBC (Bld) 30 % 24 - 43 % [facility] Lymphocytes/100 WBC (Bld) 2.75 % [facility] MCH (RBC) [Entitic mass] 29.9 pg 25.2 - 33.5 pg [facility] MCHC (RBC) [Mass/Vol] 35.8 g/dL High 28.4 - 34.8 g/dL [facility] MCV (RBC) [Entitic vol] 83.5 fL 82.6 - 102.9 fL [facility] Monocytes/100 WBC (Bld) 6 % 3 - 12 % [facility] Monocytes/100 WBC (Bld) 0.58 % [facility] Neutrophils/100 WBC (Bld) 62 % 36 - 65 % [facility] Nucleated RBC/100 WBC (Bld) [Ratio] 0.0 % 0.0 per 100 WBC [facility] Platelet mean volume (Bld) [Entitic vol] 9.7 fL 8.1 - 13.5 fL [facility] Platelets (Bld) [#/Vol] 311 10*3/uL [facility] RBC (Bld) [#/Vol] 4.79 10*6/uL 3.95 - 5.11 m/uL [facility] Segmented neutrophils/100 WBC (Bld) 5.81 % [facility] WBC other (Bld) [#/Vol] 9.3 B [facility] CBC with Diffon 12-23-2023 Abs. Basophil 0.06 k/uL Normal 0.00-0.20 [facility] Comment on above: Performed By: #### C DP, LIP, CP, TROPI #### [address] [place], [place] [address] Edging Catcher: Jordon Tai MD Abs.Imm.Granulocyte <0.03 Normal 0.00-0.30 [facility] Comment on above: Performed By: #### C DP, LIP, CP, TROPI #### [address] [place], [place] [address] Edging Catcher: Jordon Tai MD Abs.Neutrophil (Seg) 5.81 k/uL Normal 1.50-8.10 [facility] Comment on above: Performed By: #### C DP, LIP, CP, TROPI #### [address] [place], [place] [address] Edging Catcher: Jordon Tai MD Basophils/100 WBC (Bld) 1 % Normal 0-2 [facility] Comment on above: Performed By: #### C DP, LIP, CP, TROPI #### [address] [place], [place] [address] Edging Catcher: Jordon Tai MD Eosinophils (Bld) [#/Vol] 0.09 10*3/uL Normal 0.00-0.44 [facility] Comment on above: Performed By: #### C DP, LIP, CP, TROPI #### [address] [place], [place] [address] Edging Catcher: Jordon Tai MD Eosinophils/100 WBC (Bld) 1 % Normal 1-4 [facility] Comment on above: Performed By: #### C DP, LIP, CP, TROPI #### [address] [place], [place] [address] Edging Catcher: Jordon Tai MD Erythrocyte distribution width (RBC) [Ratio] 11.8 % Normal 11.8-14.4 [facility] Comment on above: Performed By: #### C DP, LIP, CP, TROPI #### [address] [place], [facility] Edging Catcher: Jordon Tai MD Hematocrit (Bld) [Volume fraction] 40.0 % Normal 36.3-47.1 [facility] Comment on above: Performed By: #### C DP, LIP, CP, TROPI #### [address] [place], [facility] Edging Catcher: Jordon Tai MD Hemoglobin (Bld) [Mass/Vol] 14.3 g/dL Normal 11.9-15.1 [facility] Comment on above: Performed By: #### C DP, LIP, CP, TROPI #### [address] [place], [facility] Edging Catcher: Jordon Tai MD Immature granulocytes/100 WBC (Bld) 0 % Normal 0 [facility] Comment on above: Performed By: #### C DP, LIP, CP, TROPI #### [address] [place], [facility] Edging Catcher: Jordon Tai MD Lymphocytes (Bld) [#/Vol] 2.75 10*3/uL Normal 1.10-3.70 [facility] Comment on above: Performed By: #### C DP, LIP, CP, TROPI #### [address] [place], [place] [address] Edging Catcher: Jordon Tai MD Lymphocytes/100 WBC (Bld) 30 % Normal 24-43 [facility] Comment on above: Performed By: #### C DP, LIP, CP, TROPI #### [address] [place] [phone] Edging Catcher: Jordon Tai MD MCH (RBC) [Entitic mass] 29.9 pg Normal 25.2-33.5 [facility] Comment on above: Performed By: #### C DP, LIP, CP, TROPI #### [address] [place], [facility] Edging Catcher: Jordon Tai MD MCHC (RBC) [Mass/Vol] 35.8 g/dL High 28.4-34.8 [facility] Comment on above: Performed By: #### C DP, LIP, CP, TROPI #### [address] [place], [place] [address] Edging Catcher: Jordon Tai MD MCV (RBC) [Entitic vol] 83.5 fL Normal 82.6-102.9 [facility] Comment on above: Performed By: #### C DP, LIP, CP, TROPI #### [address] [place], [place] [address] Edging Catcher: Jordon Tai MD Monocytes (Bld) [#/Vol] 0.58 10*3/uL Normal 0.10-1.20 [facility] Comment on above: Performed By: #### C DP, LIP, CP, TROPI #### [address] [place], [place] [address] Edging Catcher: Jordon Tai MD Monocytes/100 WBC (Bld) 6 % Normal 3-12 [facility] Comment on above: Performed By: #### C DP, LIP, CP, TROPI #### [address] [place], [place] [address] Edging Catcher: Jordon Tai MD Neutrophil (Seg) 62 % Normal 36-65 [facility] Comment on above: Performed By: #### C DP, LIP, CP, TROPI #### [address] [place], [facility] Edging Catcher: Jordon Tai MD NRBC Automated 0.0 per 100 WBC Normal 0.0 [facility] Comment on above: Performed By: #### C DP, LIP, CP, TROPI #### [address] [place], [place] [phone] Edging Catcher: Jordon Tai MD Platelet mean volume (Bld) [Entitic vol] 9.7 fL Normal 8.1-13.5 [facility] Comment on above: Performed By: #### C DP, LIP, CP, TROPI #### [facility] [address] [place], [place] [phone] Edging Catcher: Jordon Tai MD Platelets (Bld) [#/Vol] 311 10*3/uL Normal 138-453 [facility] Comment on above: Performed By: #### C DP, LIP, CP, TROPI #### [address] [place], [place] [phone] Edging Catcher: Jordon Tai MD RBC (Bld) [#/Vol] 4.79 10*6/uL Normal 3.95-5.11 [facility] Comment on above: Performed By: #### C DP, LIP, CP, TROPI #### [address] [place], [place] [phone] Edging Catcher: Jordon Tai MD WBC (Bld) [#/Vol] 9.3 10*3/uL Normal 3.5-11.3 [facility] Comment on above: Performed By: #### C DP, LIP, CP, TROPI #### [address] [place], [place] [phone] Edging Catcher: Jordon Tai MD Comp Metabolic Pr/rfx MGon 0 6- Potassium [Moles/Vol] 3.2 mmol/L Low 3.7-5.3 [facility] Comment on above: Performed By: #### C DP, LIP, CP, TROPI #### [address] [place], [place] [phone] Edging Catcher: Jordon Tai MD Albumin [Mass/Vol] 4.6 g/dL Normal 3.5-5.2 [facility] Comment on above: Performed By: #### C DP, LIP, CP, TROPI #### [facility] [address] [place], [place] [phone] Edging Catcher: Jordon Tai MD Albumin/Glob Ratio 1.4 Normal 1.0-2.5 [facility] Comment on above: Performed By: #### C DP, LIP, CP, TROPI #### [facility] [address] [place] [address] Edging Catcher: Jordon Tai MD Alkaline Phos 110 U/L High 35-104 [facility] Comment on above: Performed By: #### C DP, LIP, CP, TROPI #### [address] [place], [place] [phone] Edging Catcher: Jordon Tai MD ALT [Catalytic activity/Vol] 50 U/L High 5-33 [facility] Comment on above: Performed By: #### C DP, LIP, CP, TROPI #### [address] [place], [place] [phone] Edging Catcher: Jordon Tai MD Anion gap [Moles/Vol] 15 mmol/L Normal 9-17 [facility] Comment on above: Performed By: #### C DP, LIP, CP, TROPI #### [address] [place], [place] [phone] Edging Catcher: Jordon Tai MD AST [Catalytic activity/Vol] 35 U/L High <32 [facility] Comment on above: Performed By: #### C DP, LIP, CP, TROPI #### [address] [place], [place] [phone] Edging Catcher: Jordon Tai MD Bilirubin [Mass/Vol] 0.3 mg/dL Normal 0.3-1.2 [facility] Comment on above: Performed By: #### C DP, LIP, CP, TROPI #### [facility] [address] [place], [place] [phone] Edging Catcher: Jordon Tai MD BUN/CRE Ratio 10 Normal 9-20 [facility] Comment on above: Performed By: #### C DP, LIP, CP, TROPI #### [facility] [address] [place], [place] [phone] Edging Catcher: Jordon Tai MD Calcium [Mass/Vol] 9.3 mg/dL Normal 8.6-10.4 [facility] Comment on above: Performed By: #### C DP, LIP, CP, TROPI #### [facility] [address] [place], [place] [phone] Edging Catcher: Jordon Tai MD Chloride [Moles/Vol] 101 mmol/L Normal 98-107 [facility] Comment on above: Performed By: #### C DP, LIP, CP, TROPI #### [facility] [address] [place] [address] Dr. [place], [place] [phone] Edging Catcher: Jordon Tai MD CO2 [Moles/Vol] 22 mmol/L Normal 20-[address] [facility] Comment on above: Performed By: #### C DP, LIP, CP, TROPI #### [address] [place] [address] Edging Catcher: Jordon Tai MD Creatinine [Mass/Vol] 0.8 mg/dL Normal 0.5-0.9 [facility] Comment on above: Performed By: #### C DP, LIP, CP, TROPI #### [facility] [address] [place] [address] Edging Catcher: Jordon Tai MD GFR/1.73 sq M.predicted among non-blacks MDRD (S/P/Bld) [Vol rate/Area] mL/min/{1.73_m2} Normal >60 [facility] Comment on above: Result Comment: These [...] #### C DP, LIP, CP, TROPI #### [facility] [address] [place] [address] Edging Catcher: Jordon Tai MD Glucose [Mass/Vol] 124 mg/dL High 70-99 [facility] Comment on above: Performed By: #### C DP, LIP, CP, TROPI #### [address] [place], [place] [phone] Edging Catcher: Jordon Tai MD Protein [Mass/Vol] 7.8 g/dL Normal 6.4-8.3 [facility] Comment on above: Performed By: #### C DP, LIP, CP, TROPI #### [address] [place], [place] 1127583 Edging Catcher: Jordon Tai MD Sodium [Moles/Vol] 138 mmol/L Normal 135-144 [facility] Comment on above: Performed By: #### C DP, LIP, CP, TROPI #### [facility] [address] [place] [address] Dr. [place], [place] [phone] Edging Catcher: Jordon Tai MD Urea nitrogen [Mass/Vol] 8 mg/dL Normal 6-20 [facility] Comment on above: Performed By: #### C DP, LIP, CP, TROPI #### [facility] [address] [place] [address] Edging Catcher: Jordon Tai MD Comprehensive Metabolic Pane l w/ Reflex to MGon 12-23-2023 Albumin [Mass/Vol] 4.6 g/dL 3.5 - 5.2 g/dL [facility] Albumin/Globulin [Mass ratio] 1.4 {ratio} 1.0 - 2.5 [facility] ALP [Catalytic activity/Vol] 110 U/L High 35 - 104 U/L [facility] ALT [Catalytic activity/Vol] 50 U/L High 5 - 33 U/L [facility] Anion gap [Moles/Vol] 15 mmol/L 9 - 17 mmol/L [facility] AST [Catalytic activity/Vol] 35 U/L High NINF - 32 U/L [facility] Bilirubin [Mass/Vol] 0.3 mg/dL 0.3 - 1 .2 mg/dL [facility] Calcium [Mass/Vol] 9.3 mg/dL 8.6 - 10. 4 mg/dL [facility] Chloride [Moles/Vol] 101 mmol/L 98 - 10 7 mmol/L [facility] CO2 [Moles/Vol] 22 mmol/L 20 - 31 mmol/L [facility] Creatinine [Mass/Vol] 0.8 mg/dL 0.5 - 0.9 mg/dL [facility] Est, Glom Filt Rate - [facility] Comment on above: These results are not [...] 124 mg/dL High 70 - 99 mg/dL [facility] Interpretation and review of laboratory results Abnormal [facility] Potassium [Moles/Vol] 3.2 mmol/L Low 3.7 - 5.3 mmol/L [facility] Protein [Mass/Vol] 7.8 g/dL 6.4 - 8.3 g/dL [facility] Sodium [Moles/Vol] 138 mmol/L 135 - 144 mmol/L [facility] Urea nitrogen [Mass/Vol] 8 mg/dL 6 - 20 mg/dL [facility] Urea nitrogen/Creatinine [Mass ratio] 10 mg/mg 9 - 20 [facility] Magnesiumon 12-23-2023 Magnesium [Mass/Vol] 2.0 mg/dL 1.6 - 2 .6 mg/dL [facility] Magnesium [Mass/Vol] 2.0 mg/dL Normal 1.6-2.6 [facility] Comment on above: Performed By: #### C DP, LIP, CP, TROPI #### [facility] [address] [place] [address] Edging Catcher: Jordon Tai MD Troponinon 12-23-2023 Troponin I.cardiac High sensitivity method [Mass/Vol] ng/L 0 - 14 ng/L [facility] Comment on above: High Sensitivity Tro ponin values cannot be compared with other Troponin methodologies. [facility] Troponin, High Sens <6 Normal 0-14 [facility] Comment on above: Result Comment: High Sensitivity Troponin values cannot be compared with other Troponin methodologies. Performed By: #### C DP, LIP, CP, TROPI #### [facility] [address] [place] [address] Edging Catcher: Jordon Tai MD Troponin I.cardiac High sensitivity method [Mass/Vol] ng/L 0 - 14 ng/L [facility] Comment on above: High Sensitivity Tro ponin values cannot be compared with other Troponin methodologies. [facility] Troponin, High Sens <6 Normal 0-14 [facility] Comment on above: Result Comment: High Sensitivity Troponin values cannot be compared with other Troponin methodologies. Performed By: #### C DP, LIP, CP, TROPI #### [facility] [address] [place] [address] Edging Catcher: Jordon Tai MD XR CHEST (2 VW)on [...] Es Bach MD 12/23/23 Final result Normal [facility] XR Chest 2 Viewson No acute [...] grossly intact. IMPRESSION: No acute cardiopulmonary process [facility] Radiology Study observation (narrative) [facility] XR Chest 2 ViewsOrdered By: Es Bach on 12-23-2023 [facility] Work Phone: Basic Metabolic Profon 12-06 Anion gap [Moles/Vol] 12 mmol/L Normal 9-17 [facility] Comment on above: Performed By: #### B MP, CBC #### [facility] [address] [place], [place] [phone] Edging Catcher: Jordon Tai MD BUN/CRE Ratio 13 Normal - [facility] Comment on above: Performed By: #### B MP, CBC #### [facility] [address] [place], [place] [phone] Edging Catcher: Jordon Tai MD Calcium [Mass/Vol] 9.1 mg/dL Normal 8.6-10.4 [facility] Comment on above: Performed By: #### B MP, CBC #### [facility] [address] [place], [place] [phone] Edging Catcher: Jordon Tai MD Chloride [Moles/Vol] 102 mmol/L Normal 98-107 [facility] Comment on above: Performed By: #### B MP, CBC #### [facility] [address] [place], [place] [phone] Edging Catcher: Jordon Tai MD CO2 [Moles/Vol] 26 mmol/L Normal 20-[address] [facility] Comment on above: Performed By: #### B MP, CBC #### [facility] [address] [place], [place] [phone] Edging Catcher: Jordon Tai MD Creatinine [Mass/Vol] 0.8 mg/dL Normal 0.5-0.9 [facility] Comment on above: Performed By: #### B MP, CBC #### [facility] [address] [place] [address] Dr. [place], [place] [phone] Edging Catcher: Jordon Tai MD GFR/1.73 sq M.predicted among non-blacks MDRD (S/P/Bld) [Vol rate/Area] mL/min/{1.73_m2} Normal >60 [facility] Comment on above: Result Comment: These [...] Performed By: #### B MP, CBC #### [facility] [address] [place], [place] [phone] Edging Catcher: Jordon Tai MD Glucose [Mass/Vol] 108 mg/dL High 70-99 [facility] Comment on above: Performed By: #### B MP, CBC #### [facility] [address] [place], [place] [phone] Edging Catcher: Jordon Tai MD Potassium [Moles/Vol] 4.2 mmol/L Normal 3.7-5.3 [facility] Comment on above: Performed By: #### B MP, CBC #### [address] [place], [place] [phone] Edging Catcher: Jordon Tai MD Sodium [Moles/Vol] 140 mmol/L Normal 135-144 [facility] Comment on above: Performed By: #### B MP, CBC #### [facility] [address] [place] [address] Dr[place], [place] [phone] Edging Catcher: Jordon Tai MD Urea nitrogen [Mass/Vol] 10 mg/dL Normal 6-20 [facility] Comment on above: Performed By: #### B MP, CBC #### [address] [place], [place] [phone] Edging Catcher: Jordon Tai MD [facility] 12-07-2023 Erythrocyte distribution width (RBC) [Ratio] 11.9 % Normal 11.8-14.4 [facility] Comment on above: Performed By: #### B MP, CBC #### [facility] [address] [place] [address] Dr. [place], [place] [phone] Edging Catcher: Jordon Tai MD Hematocrit (Bld) [Volume fraction] 38.9 % Normal 36.3-47.1 [facility] Comment on above: Performed By: #### B MP, CBC #### [facility] [address] [place] [address] Dr[place], [place] [phone] Edging Catcher: Jordon Tai MD Hemoglobin (Bld) [Mass/Vol] 13.1 g/dL Normal 11.9-15.1 [facility] Comment on above: Performed By: #### B MP, CBC #### [facility] [address] [place] [address] Edging Catcher: Jordon Tai MD MCH (RBC) [Entitic mass] 29.4 pg Normal 25.2-33.5 [facility] Comment on above: Performed By: #### B MP, CBC #### [address] [place] [address] Edging Catcher: Jordon Tai MD MCHC (RBC) [Mass/Vol] 33.7 g/dL Normal 28.4-34.8 [facility] Comment on above: Performed By: #### B RUPAL, CBC #### [address] [place] [address] Edging Catcher: Jordon Tai MD MCV (RBC) [Entitic vol] 87.2 fL Normal 82.6-102.9 [facility] Comment on above: Performed By: #### B MP, CBC #### [address] [place] [address] Edging Catcher: Jordon Tai MD NRBC Automated 0.0 per 100 WBC Normal 0.0 [facility] Comment on above: Performed By: #### B MP, CBC #### [address] [place] [address] Edging Catcher: Jordon Tai MD Platelet mean volume (Bld) [Entitic vol] 9.7 fL Normal 8.1-13.5 [facility] Comment on above: Performed By: #### B MP, CBC #### [address] [place] [address] Edging Catcher: Jordon Tai MD Platelets (Bld) [#/Vol] 264 10*3/uL Normal 138-453 [facility] Comment on above: Performed By: #### B MP, CBC #### [facility] [address] [place], [facility]83 Edging Catcher: Jordon Tai MD RBC (Bld) [#/Vol] 4.46 10*6/uL Normal 3.95-5.11 [facility] Comment on above: Performed By: #### B MP, CBC #### [facility] [address] [place], [facility]83 Edging Catcher: Jordon Tai MD WBC (Bld) [#/Vol] 6.7 10*3/uL Normal 3.5-11.3 [facility] Comment on above: Performed By: #### B MP, CBC #### [facility] [address] [place], [place] [address] Edging Catcher: Jordon Tai MD TSH w/reflex to FT4on 2023 Thyroid Stim. Horm. 2.09 uIU/mL Normal 0.30-5.00 [facility] Comment on above: Performed By: #### C DP, LIP, CP, TROPI #### [address] [place], [facility]83 Edging Catcher: Jordon Tai MD CBC with Diffon 08-18-2023 Abs. Basophil <0.03 Normal 0.00-0.20 [facility] Comment on above: Performed By: #### C DP, LIP, CP, TROPI #### [facility] [address] [place], [facility]83 Edging Catcher: Jordon Tai MD Abs.Imm.Granulocyte 0.04 k/uL Normal 0.00-0.30 [facility] Comment on above: Performed By: #### C DP, LIP, CP, TROPI #### [facility] [address] [place], [place] [address] Edging Catcher: Jordon Tai MD Abs.Neutrophil (Seg) 6.03 k/uL Normal 1.50-8.10 [facility] Comment on above: Performed By: #### C DP, LIP, CP, TROPI #### [address] [place], [facility]83 Edging Catcher: Jordon Tai MD Basophils/100 WBC (Bld) 0 % Normal 0-2 [facility] Comment on above: Performed By: #### C DP, LIP, CP, TROPI #### [address] [place], [place] [address] Edging Catcher: Jordon Tai MD Eosinophils (Bld) [#/Vol] 0.07 10*3/uL Normal 0.00-0.44 [facility] Comment on above: Performed By: #### C DP, LIP, CP, TROPI #### [address] [place], [place] [address] Edging Catcher: Jordon Tai MD Eosinophils/100 WBC (Bld) 1 % Normal 1-4 [facility] Comment on above: Performed By: #### C DP, LIP, CP, TROPI #### [address] [place], [place] [address] Edging Catcher: Jordon Tai MD Erythrocyte distribution width (RBC) [Ratio] 12.0 % Normal 11.8-14.4 [facility] Comment on above: Performed By: #### C DP, LIP, CP, TROPI #### [address] [place], [facility]83 Edging Catcher: Jordon Tai MD Hematocrit (Bld) [Volume fraction] 38.2 % Normal 36.3-47.1 [facility] Comment on above: Performed By: #### C DP, LIP, CP, TROPI #### [address] [place] [phone] Edging Catcher: Jordon Tai MD Hemoglobin (Bld) [Mass/Vol] 13.7 g/dL Normal 11.9-15.1 [facility] Comment on above: Performed By: #### C DP, LIP, CP, TROPI #### [facility] [address] [place] [address] Edging Catcher: Jordon Tai MD Immature granulocytes/100 WBC (Bld) 0 % Normal 0 [facility] Comment on above: Performed By: #### C DP, LIP, CP, TROPI #### [address] [place] [address] Edging Catcher: Jordon Tai MD Lymphocytes (Bld) [#/Vol] 2.56 10*3/uL Normal 1.10-3.70 [facility] Comment on above: Performed By: #### C DP, LIP, CP, TROPI #### [address] [place], [place] [address] Edging Catcher: Jordon Tai MD Lymphocytes/100 WBC (Bld) 28 % Normal 24-43 [facility] Comment on above: Performed By: #### C DP, LIP, CP, TROPI #### [address] [place], [facility]83 Edging Catcher: Jordon Tai MD MCH (RBC) [Entitic mass] 30.9 pg Normal 25.2-33.5 [facility] Comment on above: Performed By: #### C DP, LIP, CP, TROPI #### [address] [place], [facility]83 Edging Catcher: Jordon Tai MD MCHC (RBC) [Mass/Vol] 35.9 g/dL High 28.4-34.8 [facility] Comment on above: Performed By: #### C DP, LIP, CP, TROPI #### [address] [place] [phone] Edging Catcher: Jordon Tai MD MCV (RBC) [Entitic vol] 86.2 fL Normal 82.6-102.9 [facility] Comment on above: Performed By: #### C DP, LIP, CP, TROPI #### [address] [place], [place] [phone] Edging Catcher: Jordon Tai MD Monocytes (Bld) [#/Vol] 0.60 10*3/uL Normal 0.10-1.20 [facility] Comment on above: Performed By: #### C DP, LIP, CP, TROPI #### [address] [place], [facility]83 Edging Catcher: Jordon Tai MD Monocytes/100 WBC (Bld) 6 % Normal 3-12 [facility] Comment on above: Performed By: #### C DP, LIP, CP, TROPI #### [address] [place], [facility]83 Edging Catcher: Jordon Tai MD Neutrophil (Seg) 65 % Normal 36-65 [facility] Comment on above: Performed By: #### C DP, LIP, CP, TROPI #### [address] [place], [facility]83 Edging Catcher: Jordon Tai MD NRBC Automated 0.0 per 100 WBC Normal 0.0 [facility] Comment on above: Performed By: #### C DP, LIP, CP, TROPI #### [address] [place], [place] [phone] Edging Catcher: Jordon Tai MD Platelet mean volume (Bld) [Entitic vol] 9.5 fL Normal 8.1-13.5 [facility] Comment on above: Performed By: #### C DP, LIP, CP, TROPI #### [address] [place] [phone] Edging Catcher: Jordon Tai MD Platelets (Bld) [#/Vol] 257 10*3/uL Normal 138-453 [facility] Comment on above: Performed By: #### C DP, LIP, CP, TROPI #### [facility] [address] [place], [place] [phone] Edging Catcher: Jordon Tai MD RBC (Bld) [#/Vol] 4.43 10*6/uL Normal 3.95-5.11 [facility] Comment on above: Performed By: #### C DP, LIP, CP, TROPI #### [facility] [address] [place] [phone] ( Edging Catcher: Jordon Tai MD WBC (Bld) [#/Vol] 9.3 10*3/uL Normal 3.5-11.3 [facility] Comment on above: Performed By: #### C DP, LIP, CP, TROPI #### [facility] [address] [place], [place] [phone] Edging Catcher: Jordon Tai MD Comp Metabolic Pr/rfx MGon 0 - Albumin [Mass/Vol] 4.0 g/dL Normal 3.5-5.2 [facility] Comment on above: Performed By: #### C DP, LIP, CP, TROPI #### [facility] [address] [place], [facility] ( Edging Catcher: Jordon Tai MD Albumin/Glob Ratio 1.4 Normal 1.0-2.5 [facility] Comment on above: Performed By: #### C DP, LIP, CP, TROPI #### [facility] [address] [place], [place] [phone] Edging Catcher: Jordon Tai MD Alkaline Phos 158 U/L High 35-104 [facility] Comment on above: Performed By: #### C DP, LIP, CP, TROPI #### [facility] [address] [place], [place] [phone] Edging Catcher: Jordon Tai MD ALT [Catalytic activity/Vol] 70 U/L High 5-33 [facility] Comment on above: Performed By: #### C DP, LIP, CP, TROPI #### [facility] [address] [place], [place] [phone] Edging Catcher: Jordon Tai MD Anion gap [Moles/Vol] 10 mmol/L Normal 9-17 [facility] Comment on above: Performed By: #### C DP, LIP, CP, TROPI #### [facility] [address] [place], [place] [phone] Edging Catcher: Jordon Tai MD AST [Catalytic activity/Vol] 45 U/L High <32 [facility] Comment on above: Performed By: #### C DP, LIP, CP, TROPI #### [facility] [address] [place] [address] Dr. [place], [place] [phone] Edging Catcher: Jordon Tai MD Bilirubin [Mass/Vol] 0.7 mg/dL Normal 0.3-1.2 [facility] Comment on above: Performed By: #### C DP, LIP, CP, TROPI #### [address] [place], [place] 0605383 Edging Catcher: Jordon Tai MD BUN/CRE Ratio 9 Normal 9-20 [facility] Comment on above: Performed By: #### C DP, LIP, CP, TROPI #### [facility] [address] [place], [place] [phone] Edging Catcher: Jordon Tai MD Calcium [Mass/Vol] 8.9 mg/dL Normal 8.6-10.4 [facility] Comment on above: Performed By: #### C DP, LIP, CP, TROPI #### [facility] [address] [place] [address] [place] [address] Edging Catcher: Jordon Tai MD Chloride [Moles/Vol] 103 mmol/L Normal 98-107 [facility] Comment on above: Performed By: #### C DP, LIP, CP, TROPI #### [facility] [address] [place] [address] Edging Catcher: Jordon Tai MD CO2 [Moles/Vol] 27 mmol/L Normal 20-[address] [facility] Comment on above: Performed By: #### C DP, LIP, CP, TROPI #### [facility] [address] [place] [address] Edging Catcher: Jordon Tai MD Creatinine [Mass/Vol] 0.7 mg/dL Normal 0.5-0.9 [facility] Comment on above: Performed By: #### C DP, LIP, CP, TROPI #### [facility] [address] [place] [address] Edging Catcher: Jordon Tai MD GFR/1.73 sq M.predicted among non-blacks MDRD (S/P/Bld) [Vol rate/Area] mL/min/{1.73_m2} Normal >60 [facility] Comment on above: Result Comment: These [...] #### C DP, LIP, CP, TROPI #### [facility] [address] [place] [address] Edging Catcher: Jordon Tai MD Glucose [Mass/Vol] 98 mg/dL Normal 70-99 [facility] Comment on above: Performed By: #### C DP, LIP, CP, TROPI #### [facility] [address] [place], [place] [phone] Edging Catcher: Jordon Tai MD Potassium [Moles/Vol] 3.9 mmol/L Normal 3.7-5.3 [facility] Comment on above: Performed By: #### C DP, LIP, CP, TROPI #### [address] [place], [place] [phone] Edging Catcher: Jordon Tai MD Protein [Mass/Vol] 6.9 g/dL Normal 6.4-8.3 [facility] Comment on above: Performed By: #### C DP, LIP, CP, TROPI #### [address] [place] [address] Edging Catcher: Jordon Tai MD Sodium [Moles/Vol] 140 mmol/L Normal 135-144 [facility] Comment on above: Performed By: #### C DP, LIP, CP, TROPI #### [address] [place] [address] Edging Catcher: Jodron Tai MD Urea nitrogen [Mass/Vol] 6 mg/dL Normal 6-20 [facility] Comment on above: Performed By: #### C DP, LIP, CP, TROPI #### [address] [place], [place] [phone] Edging Catcher: Jordon Tai MD MRI ABDOMEN W WO [...] Davie White MD 08/18/23 Final result Normal [facility] CBC with Diffon 08-17-2023 Abs. Basophil 0.03 k/uL Normal 0.00-0.20 [facility] Comment on above: Performed By: #### C MPX, CDP #### [address] [place] [phone] Edging Catcher: Jordon Tia MD Abs.Imm.Granulocyte 0.04 k/uL Normal 0.00-0.30 [facility] Comment on above: Performed By: #### C MPX, CDP #### [address] [place], [facility]83 Edging Catcher: Jordon Tai MD Abs.Neutrophil (Seg) 5.24 k/uL Normal 1.50-8.10 [facility] Comment on above: Performed By: #### C MPX, CDP #### [address] [place], [place] [phone] Edging Catcher: Jordon Tai MD Basophils/100 WBC (Bld) 0 % Normal 0-2 [facility] Comment on above: Performed By: #### C MPX, CDP #### [address] [place], [place] [phone] Edging Catcher: Jordon Tai MD Eosinophils (Bld) [#/Vol] 0.07 10*3/uL Normal 0.00-0.44 [facility] Comment on above: Performed By: #### C MPX, CDP #### [address] [place], [facility]83 Edging Catcher: Jordon Tai MD Eosinophils/100 WBC (Bld) 1 % Normal 1-4 [facility] Comment on above: Performed By: #### C MPX, CDP #### [address] [place], [facility]83 Edging Catcher: Jordon Tai MD Erythrocyte distribution width (RBC) [Ratio] 11.9 % Normal 11.8-14.4 [facility] Comment on above: Performed By: #### C MPX, CDP #### [address] [place], [facility]83 Edging Catcher: Jordon Tai MD Hematocrit (Bld) [Volume fraction] 37.2 % Normal 36.3-47.1 [facility] Comment on above: Performed By: #### C MPX, CDP #### [address] [place], [facility]83 Edging Catcher: Jordon Tai MD Hemoglobin (Bld) [Mass/Vol] 12.7 g/dL Normal 11.9-15.1 [facility] Comment on above: Performed By: #### C MPX, CDP #### [address] [place] [address] Edging Catcher: Jordon Tai MD Immature granulocytes/100 WBC (Bld) 1 % High 0 [facility] Comment on above: Performed By: #### C MPX, CDP #### [address] [place], [facility]83 Edging Catcher: Jordon Tai MD Lymphocytes (Bld) [#/Vol] 1.99 10*3/uL Normal 1.10-3.70 [facility] Comment on above: Performed By: #### C MPX, CDP #### [facility] [address] [place], [facility]83 Edging Catcher: Jordon Tai MD Lymphocytes/100 WBC (Bld) 25 % Normal 24-43 [facility] Comment on above: Performed By: #### C MPX, CDP #### [facility] [address] [place], [facility] ( Edging Catcher: Jordon Tai MD MCH (RBC) [Entitic mass] 29.7 pg Normal 25.2-33.5 [facility] Comment on above: Performed By: #### C MPX, CDP #### [address] [place], [facility]88 ( Edging Catcher: Jordon Tai MD MCHC (RBC) [Mass/Vol] 34.1 g/dL Normal 28.4-34.8 [facility] Comment on above: Performed By: #### C MPX, CDP #### [address] [place], [facility]83 Edging Catcher: Jordon Tai MD MCV (RBC) [Entitic vol] 87.1 fL Normal 82.6-102.9 [facility] Comment on above: Performed By: #### C MPX, CDP #### [address] [place], [place] [phone] Edging Catcher: Jordon Tai MD Monocytes (Bld) [#/Vol] 0.71 10*3/uL Normal 0.10-1.20 [facility] Comment on above: Performed By: #### C MPX, CDP #### [address] [place], [place] [phone] Edging Catcher: Jordon Tai MD Monocytes/100 WBC (Bld) 9 % Normal 3-12 [facility] Comment on above: Performed By: #### C MPX, CDP #### [facility] [address] [place], [place] [phone] Edging Catcher: Jordon Tai MD Neutrophil (Seg) 64 % Normal 36-65 [facility] Comment on above: Performed By: #### C MPX, CDP #### [facility] [address] [place], [place] 9283883 Edging Catcher: Jordon Tai MD NRBC Automated 0.0 per 100 WBC Normal 0.0 [facility] Comment on above: Performed By: #### C MPX, CDP #### [facility] [address] [place], [place] [phone] Edging Catcher: Jordon Tai MD Platelet mean volume (Bld) [Entitic vol] 9.5 fL Normal 8.1-13.5 [facility] Comment on above: Performed By: #### C MPX, CDP #### [address] [place], [place] [phone] Edging Catcher: Jordon Tai MD Platelets (Bld) [#/Vol] 243 10*3/uL Normal 138-453 [facility] Comment on above: Performed By: #### C MPX, CDP #### [facility] [address] [place] [address] Dr. [place], [place] 6160183 Edging Catcher: Jordon Tai MD RBC (Bld) [#/Vol] 4.27 10*6/uL Normal 3.95-5.11 [facility] Comment on above: Performed By: #### C MPX, CDP #### [facility] [address] [place], [place] [phone] Edging Catcher: Jordon Tai MD WBC (Bld) [#/Vol] 8.1 10*3/uL Normal 3.5-11.3 [facility] Comment on above: Performed By: #### C MPX, CDP #### [facility] [address] [place], [place] [phone] Edging Catcher: Jordon Tai MD Comp Metabolic Pr/rfx MGon 0 08-17-2023 Albumin [Mass/Vol] 3.8 g/dL Normal 3.5-5.2 [facility] Comment on above: Performed By: #### C MPX, CDP #### [facility] [address] [place], [place] [phone] Edging Catcher: Jordon Tai MD Albumin/Glob Ratio 1.4 Normal 1.0-2.5 [facility] Comment on above: Performed By: #### C MPX, CDP #### [facility] [address] [place], [place] 9803483 Edging Catcher: Jordon Tai MD Alkaline Phos 171 U/L High 35-104 [facility] Comment on above: Performed By: #### C MPX, CDP #### [facility] [address] [place], [place] [phone] Edging Catcher: Jordon Tai MD ALT [Catalytic activity/Vol] 73 U/L High 5-33 [facility] Comment on above: Performed By: #### C MPX, CDP #### [facility] [address] [place], [place] [phone] Edging Catcher: Jordon Tai MD Anion gap [Moles/Vol] 13 mmol/L Normal 9-17 [facility] Comment on above: Performed By: #### C MPX, CDP #### [facility] [address] [place], [place] 4873883 Edging Catcher: Jordon Tai MD AST [Catalytic activity/Vol] 65 U/L High <32 [facility] Comment on above: Performed By: #### C MPX, CDP #### [facility] [address] [place], [place] 0955183 Edging Catcher: Jordon Tai MD Bilirubin [Mass/Vol] 0.7 mg/dL Normal 0.3-1.2 [facility] Comment on above: Performed By: #### C MPX, CDP #### [facility] [address] [place], [place] [phone] Edging Catcher: Jordon Tai MD BUN/CRE Ratio 10 Normal 9-20 [facility] Comment on above: Performed By: #### C MPX, CDP #### [facility] [address] [place], [place] 8252983 Edging Catcher: Jordon Tai MD Calcium [Mass/Vol] 8.7 mg/dL Normal 8.6-10.4 [facility] Comment on above: Performed By: #### C MPX, CDP #### [facility] [address] [place], [place] 9483783 Edging Catcher: Jordon Tai MD Chloride [Moles/Vol] 99 mmol/L Normal 98-107 [facility] Comment on above: Performed By: #### C MPX, CDP #### [facility] [address] [place], [place] [phone] Edging Catcher: Jordon Tai MD CO2 [Moles/Vol] 27 mmol/L Normal 20-[address] [facility] Comment on above: Performed By: #### C MPX, CDP #### [facility] [address] [place], [place] 6783083 Edging Catcher: Jordon Tai MD Creatinine [Mass/Vol] 0.6 mg/dL Normal 0.5-0.9 [facility] Comment on above: Performed By: #### C MPX, CDP #### [facility] [address] [place] [address] Edging Catcher: Jordon Tai MD GFR/1.73 sq M.predicted among non-blacks MDRD (S/P/Bld) [Vol rate/Area] mL/min/{1.73_m2} Normal >60 [facility] Comment on above: Result Comment: These [...] Performed By: #### C MPX, CDP #### [facility] [address] [place] [address] [place] [address] Edging Catcher: Jordon Tai MD Glucose [Mass/Vol] 92 mg/dL Normal 70-99 [facility] Comment on above: Performed By: #### C MPX, CDP #### [address] [place], [place] [phone] Edging Catcher: Jordon Tai MD Potassium [Moles/Vol] 3.9 mmol/L Normal 3.7-5.3 [facility] Comment on above: Performed By: #### C MPX, CDP #### [address] [place] [address] Edging Catcher: Jordon Tai MD Protein [Mass/Vol] 6.5 g/dL Normal 6.4-8.3 [facility] Comment on above: Performed By: #### C MPX, CDP #### [facility] [address] [place] [address] Dr[place], [place] [phone] Edging Catcher: Jordon Tai MD Sodium [Moles/Vol] 139 mmol/L Normal 135-144 [facility] Comment on above: Performed By: #### C MPX, CDP #### [facility] [address] [place] [address] [place] [address] Edging Catcher: Jordon Tai MD Urea nitrogen [Mass/Vol] 6 mg/dL Normal 6-20 [facility] Comment on above: Performed By: #### C MPX, CDP #### [facility] [address] [place] [address] Edging Catcher: Jordon Tai MD Surgical Pathology Reporton 08-17-2023 Surgical Pathology Report (NOTE) Path Number: [id number] -- Diagnosis -- A. STOMACH, ANTRUM, BIOPSIES: [...] Description A-C. Microscopic examination performed. Processing Lab: [address] [id number] Interpretation Performed at [address] [id number] SURGICAL PATHOLOGY CONSULTATION Patient Name: MIKE SHARIF [facility] Rec: [id number] [facility] CONSULT[facility] PATHOLOG[facility] [facility] [address] [place] [address]. [place], [place] [address] Normal [facility] CBC with Diffon 08-16-2023 Abs. Basophil 0.03 k/uL Normal 0.00-0.20 [facility] Comment on above: Performed By: #### C DP, LIP, CP, TROPI #### [address] [place], [place] [phone] Edging Catcher: Jordon Tai MD Abs.Imm.Granulocyte 0.06 k/uL Normal 0.00-0.30 [facility] Comment on above: Performed By: #### C DP, LIP, CP, TROPI #### [address] [place], [place] [phone] Edging Catcher: Jordon Tai MD Abs.Neutrophil (Seg) 5.71 k/uL Normal 1.50-8.10 [facility] Comment on above: Performed By: #### C DP, LIP, CP, TROPI #### [address] [place], [place] [phone] Edging Catcher: Jordon Tai MD Basophils/100 WBC (Bld) 0 % Normal 0-2 [facility] Comment on above: Performed By: #### C DP, LIP, CP, TROPI #### [address] [place], [place] [phone] Edging Catcher: Jordon Tai MD Eosinophils (Bld) [#/Vol] 0.07 10*3/uL Normal 0.00-0.44 [facility] Comment on above: Performed By: #### C DP, LIP, CP, TROPI #### [address] [place], [place] [phone] Edging Catcher: Jordon Tai MD Eosinophils/100 WBC (Bld) 1 % Normal 1-4 [facility] Comment on above: Performed By: #### C DP, LIP, CP, TROPI #### [address] [place], [place] [address] Edging Catcher: Jordon Tai MD Erythrocyte distribution width (RBC) [Ratio] 11.9 % Normal 11.8-14.4 [facility] Comment on above: Performed By: #### C DP, LIP, CP, TROPI #### [address] [place], [place] [address] Edging Catcher: Jordon Tai MD Hematocrit (Bld) [Volume fraction] 39.3 % Normal 36.3-47.1 [facility] Comment on above: Performed By: #### C DP, LIP, CP, TROPI #### [address] [place], [place] [address] Edging Catcher: Jordon Tai MD Hemoglobin (Bld) [Mass/Vol] 13.4 g/dL Normal 11.9-15.1 [facility] Comment on above: Performed By: #### C DP, LIP, CP, TROPI #### [address] [place], [place] [address] Edging Catcher: Jordon Tai MD Immature granulocytes/100 WBC (Bld) 1 % High 0 [facility] Comment on above: Performed By: #### C DP, LIP, CP, TROPI #### [address] [place], [place] [address] Edging Catcher: Jordon Tai MD Lymphocytes (Bld) [#/Vol] 2.71 10*3/uL Normal 1.10-3.70 [facility] Comment on above: Performed By: #### C DP, LIP, CP, TROPI #### [address] [place], [facility]83 Edging Catcher: Jordon Tai MD Lymphocytes/100 WBC (Bld) 29 % Normal 24-43 [facility] Comment on above: Performed By: #### C DP, LIP, CP, TROPI #### [address] [place], [place] [phone] Edging Catcher: Jordon Tai MD MCH (RBC) [Entitic mass] 29.5 pg Normal 25.2-33.5 [facility] Comment on above: Performed By: #### C DP, LIP, CP, TROPI #### [address] [place], [facility]83 Edging Catcher: Jordon Tai MD MCHC (RBC) [Mass/Vol] 34.1 g/dL Normal 28.4-34.8 [facility] Comment on above: Performed By: #### C DP, LIP, CP, TROPI #### [address] [place] [phone] Edging Catcher: Jordon Tai MD MCV (RBC) [Entitic vol] 86.6 fL Normal 82.6-102.9 [facility] Comment on above: Performed By: #### C DP, LIP, CP, TROPI #### [address] [place], [place] [address] Edging Catcher: Jordon Tai MD Monocytes (Bld) [#/Vol] 0.85 10*3/uL Normal 0.10-1.20 [facility] Comment on above: Performed By: #### C DP, LIP, CP, TROPI #### [address] [place], [facility] ( Edging Catcher: Jordon Tai MD Monocytes/100 WBC (Bld) 9 % Normal 3-12 [facility] Comment on above: Performed By: #### C DP, LIP, CP, TROPI #### [address] [place], [place] [phone] Edging Catcher: Jordon Tai MD Neutrophil (Seg) 60 % Normal 36-65 [facility] Comment on above: Performed By: #### C DP, LIP, CP, TROPI #### [facility] [address] [place], [place] [phone] Edging Catcher: Jordon Tai MD NRBC Automated 0.0 per 100 WBC Normal 0.0 [facility] Comment on above: Performed By: #### C DP, LIP, CP, TROPI #### [address] [place], [place] [address] Edging Catcher: Jordon Tai MD Platelet mean volume (Bld) [Entitic vol] 9.3 fL Normal 8.1-13.5 [facility] Comment on above: Performed By: #### C DP, LIP, CP, TROPI #### [address] [place], [facility]83 Edging Catcher: Jordon Tai MD Platelets (Bld) [#/Vol] 271 10*3/uL Normal 138-453 [facility] Comment on above: Performed By: #### C DP, LIP, CP, TROPI #### [address] [place], [facility]83 Edging Catcher: Jordon Tai MD RBC (Bld) [#/Vol] 4.54 10*6/uL Normal 3.95-5.11 [facility] Comment on above: Performed By: #### C DP, LIP, CP, TROPI #### [address] [place], [facility]83 Edging Catcher: Jordon Tai MD WBC (Bld) [#/Vol] 9.4 10*3/uL Normal 3.5-11.3 [facility] Comment on above: Performed By: #### C DP, LIP, CP, TROPI #### [address] [place] [address] Edging Catcher: Jordon Tai MD CT ABDOMEN PELVIS W [...] Davie White MD 08/16/23 Final result Normal [facility] Comp Metabolic Profon 2023 Albumin [Mass/Vol] 4.2 g/dL Normal 3.5-5.2 [facility] Comment on above: Performed By: #### C DP, LIP, CP, TROPI #### [facility] [address] [place], [place] [phone] Edging Catcher: Jordon Tai MD Albumin/Glob Ratio 1.4 Normal 1.0-2.5 [facility] Comment on above: Performed By: #### C DP, LIP, CP, TROPI #### [facility] [address] [place], [place] [phone] Edging Catcher: Jordon Tai MD Alkaline Phos 117 U/L High 35-104 [facility] Comment on above: Performed By: #### C DP, LIP, CP, TROPI #### [facility] [address] [place], [place] [phone] Edging Catcher: Jordon Tai MD ALT [Catalytic activity/Vol] 37 U/L High 5-33 [facility] Comment on above: Performed By: #### C DP, LIP, CP, TROPI #### [facility] [address] [place], [place] [phone] Edging Catcher: Jordon Tai MD Anion gap [Moles/Vol] 12 mmol/L Normal 9-17 [facility] Comment on above: Performed By: #### C DP, LIP, CP, TROPI #### [address] [place], [place] [phone] Edging Catcher: Jordon Tia MD AST [Catalytic activity/Vol] 20 U/L Normal <32 [facility] Comment on above: Performed By: #### C DP, LIP, CP, TROPI #### [facility] [address] [place], [place] [phone] Edging Catcher: Jordon Tai MD Bilirubin [Mass/Vol] 0.4 mg/dL Normal 0.3-1.2 [facility] Comment on above: Performed By: #### C DP, LIP, CP, TROPI #### [facility] [address] [place], [place] [phone] Edging Catcher: Jordon Tai MD BUN/CRE Ratio 9 Normal 9-20 [facility] Comment on above: Performed By: #### C DP, LIP, CP, TROPI #### [facility] [address] [place] [address] Edging Catcher: Jordon Tai MD Calcium [Mass/Vol] 9.1 mg/dL Normal 8.6-10.4 [facility] Comment on above: Performed By: #### C DP, LIP, CP, TROPI #### [facility] [address] [place], [place] [phone] Edging Catcher: Jordon Tai MD Chloride [Moles/Vol] 98 mmol/L Normal 98-107 [facility] Comment on above: Performed By: #### C DP, LIP, CP, TROPI #### [facility] [address] [place] [address] [place] [address] Edging Catcher: Jordon Tai MD CO2 [Moles/Vol] 28 mmol/L Normal 20-[address] [facility] Comment on above: Performed By: #### C DP, LIP, CP, TROPI #### [facility] [address] [place], [place] [phone] Edging Catcher: Jordon Tai MD Creatinine [Mass/Vol] 0.8 mg/dL Normal 0.5-0.9 [facility] Comment on above: Performed By: #### C DP, LIP, CP, TROPI #### [facility] [address] [place], [place] [phone] Edging Catcher: Jordon Tai MD GFR/1.73 sq M.predicted among non-blacks MDRD (S/P/Bld) [Vol rate/Area] mL/min/{1.73_m2} Normal >60 [facility] Comment on above: Result Comment: These [...] #### C DP, LIP, CP, TROPI #### [address] [place] [address] Edging Catcher: Jordon Tai MD Glucose [Mass/Vol] 87 mg/dL Normal 70-99 [facility] Comment on above: Performed By: #### C DP, LIP, CP, TROPI #### [facility] [address] [place] [address] Edging Catcher: Jordon Tai MD Potassium [Moles/Vol] 3.3 mmol/L Low 3.7-5.3 [facility] Comment on above: Performed By: #### C DP, LIP, CP, TROPI #### [address] [place] [address] Edging Catcher: Jordon Tai MD Protein [Mass/Vol] 7.1 g/dL Normal 6.4-8.3 [facility] Comment on above: Performed By: #### C DP, LIP, CP, TROPI #### [address] [place] [address] Edging Catcher: Jordon Tai MD Sodium [Moles/Vol] 138 mmol/L Normal 135-144 [facility] Comment on above: Performed By: #### C DP, LIP, CP, TROPI #### [address] [place] [address] Edging Catcher: Jordon Tai MD Urea nitrogen [Mass/Vol] 7 mg/dL Normal 6-20 [facility] Comment on above: Performed By: #### C DP, LIP, CP, TROPI #### [address] [place] [address] Edging Catcher: Jordon Tai MD HCG, ,Urineon 08-16 Beta HCG ( test) Ql (U) Negative Normal NEG [facility] Comment on above: Result Comment: Spec imens with hCG levels near the threshold of the test (25 mIU/mL) may give a negative or indeterminate result. In such cases, another test should be performed with a new specimen in 48-72 hours. If early is suspected clinically in this setting, correlation with quantitative serum b-hCG level is suggested. [facility] has confirmed the use of plasma for this test. This has not been cleared or approved by the U.[place]. Food and Drug Administration. The FDA has determined that such clearance is not necessary. Performed By: #### [facility], [facility] #### [facility] [address] [place] [address] Edging Catcher: Jordon Tai MD Lactic Acidon 08-16-2023 Lactate [Moles/Vol] 1.3 mmol/L Normal 0.5-2.2 [facility] Comment on above: Performed By: #### C DP, LIP, CP, TROPI #### [facility] [address] [place], [place] [phone] Edging Catcher: Jordon Tai MD Lipaseon 8 Lipase [Catalytic activity/Vol] 24 U/L Normal 13-60 [facility] Comment on above: Performed By: #### C DP, LIP, CP, TROPI #### [facility] [address] [place] [address] Edging Catcher: Jordon Tai MD Troponinon 08-16-2023 Troponin, High Sens <6 Normal 0-14 [facility] Comment on above: Result Comment: High Sensitivity Troponin values cannot be compared with other Troponin methodologies. Performed By: #### C DP, LIP, CP, TROPI #### [facility] [address] [place] [address] Edging Catcher: Jordon Tai MD Urinalysis w/ Microon 2023 Bacteria TRACE Abnormal NONE [facility] Comment on above: Performed By: #### B MP, CBC #### [facility] [address] [place], [place] [phone] Edging Catcher: Jordon Tai MD Bilirubin, SemiQt,Ur Negative Normal NEG [facility] Comment on above: Performed By: #### B MP, CBC #### [facility] [address] [place], [place] [phone] Edging Catcher: Jordon Tai MD Blood, Urine Negative Normal NEG [facility] Comment on above: Performed By: #### B MP, CBC #### [address] [place] [phone] Edging Catcher: Jordon Tai MD Clarity (U) Clear Normal CLEAR [facility] Comment on above: Performed By: #### B MP, CBC #### [address] [place] [phone] Edging Catcher: Jordon Tai MD Color (U) Yellow Normal YEL [facility] Comment on above: Performed By: #### B MP, CBC #### [address] [place] [phone] Edging Catcher: Jordon Tai MD Epithelial cells LM Ql (Urine sed) 0 TO 2 Normal 0-25 [facility] Comment on above: Performed By: #### B MP, CBC #### [facility] [address] [place] [address] Dr. [place], [facility]83 Edging Catcher: Jordon Tai MD Glucose Ql (U) Negative Normal NEG [facility] Comment on above: Performed By: #### B MP, CBC #### [address] [place] [address] Edging Catcher: Jordon Tai MD Ketones Ql (U) Negative Normal NEG [facility] Comment on above: Performed By: #### B MP, CBC #### [facility] [address] [place] [address] [place] [place], [place] [phone] Edging Catcher: Jordon Tai MD Leukocyte esterase Test strip Ql (U) Negative Normal NEG [facility] Comment on above: Performed By: #### B MP, CBC #### [facility] [address] [place], [place] [phone] Edging Catcher: Jordon Tai MD Nitrite,Ur Negative Normal NEG [facility] Comment on above: Performed By: #### B MP, CBC #### [facility] [address] [place], [place] [phone] Edging Catcher: Jordon Tai MD PH,Ur 6.0 Normal 5.0-9.0 [facility] Comment on above: Performed By: #### B MP, CBC #### [address] [place], [place] [phone] Edging Catcher: Jordon Tai MD Protein Ql (U) Negative Normal NEG [facility] Comment on above: Performed By: #### B MP, CBC #### [address] [place], [place] [phone] Edging Catcher: Jordon Tai MD Spec. Russell,Ur 1.010 Normal 1.010-1.02 0 [facility] Comment on above: Performed By: #### B MP, CBC #### [facility] [address] [place], [place] [phone] Edging Catcher: Jordon Tai MD Urine RBC's 0 TO 2 Normal 0-2 [facility] Comment on above: Performed By: #### B MP, CBC #### [facility] [address] [place], [place] [phone] Edging Catcher: Jordon Tai MD Urine WBC's 0 TO 2 Normal 0-5 [facility] Comment on above: Performed By: #### B MP, CBC #### [facility] [address] [place] [address] Edging Catcher: Jordon Tai MD Urobilinogen,Ur Normal Normal 0.0-1.[address] [facility] Comment on above: Performed By: #### B MP, CBC #### [facility] [address] [place] [address] Edging Catcher: Jordon Tai MD CT ABDOMEN PELVIS W [...] Viri Frey MD 08/13/23 Final result Normal [facility] CBC with Auto Differentialon 08-12-2023 Basophils (Bld) [#/Vol] 0.06 10*3/uL [facility] Basophils/100 WBC (Bld) 1 % 0 - 2 % [facility] Eosinophils (Bld) [#/Vol] 0.11 10*3/uL [facility] Eosinophils/100 WBC (Bld) 1 % 1 - 4 % [facility] Erythrocyte distribution width (RBC) [Ratio] 11.9 % 11.8 - 14.4 % [facility] Hematocrit (Bld) [Volume fraction] 40.3 % 36.3 - 47.1 % [facility] Hemoglobin (Bld) [Mass/Vol] 14.3 g/dL 11.9 - 15.1 g/dL [facility] Immature granulocytes (Bld) [#/Vol] 0.04 10*3/uL [facility] Immature granulocytes/100 WBC (Bld) 0 % 0 [facility] Interpretation and review of laboratory results Abnormal [facility] Lymphocytes/100 WBC (Bld) 31 % 24 - 43 % [facility] Lymphocytes/100 WBC (Bld) 3.27 % [facility] MCH (RBC) [Entitic mass] 30.0 pg 25.2 - 33.5 pg [facility] MCHC (RBC) [Mass/Vol] 35.5 g/dL High 28.4 - 34.8 g/dL [facility] MCV (RBC) [Entitic vol] 84.5 fL 82.6 - 102.9 fL [facility] Monocytes/100 WBC (Bld) 7 % 3 - 12 % [facility] Monocytes/100 WBC (Bld) 0.69 % [facility] Neutrophils/100 WBC (Bld) 60 % 36 - 65 % [facility] Nucleated RBC/100 WBC (Bld) [Ratio] 0.0 % 0.0 per 100 WBC [facility] Platelet mean volume (Bld) [Entitic vol] 9.3 fL 8.1 - 13.5 fL [facility] Platelets (Bld) [#/Vol] 381 10*3/uL [facility] RBC (Bld) [#/Vol] 4.77 10*6/uL 3.95 - 5.11 m/uL [facility] Segmented neutrophils/100 WBC (Bld) 6.23 % [facility] WBC other (Bld) [#/Vol] 10.[address] [facility] CBC with Diffon 08-12-2023 Abs. Basophil 0.06 k/uL Normal 0.00-0.20 [facility] Comment on above: Performed By: #### C DP, LIP, CP, TROPI #### [facility] [address] [place] [address] Dr. [place], [place] [address] Edging Catcher: Jordon Tai MD Abs.Imm.Granulocyte 0.04 k/uL Normal 0.00-0.30 [facility] Comment on above: Performed By: #### C DP, LIP, CP, TROPI #### [address] [place], [facility]83 Edging Catcher: Jordon Tai MD Abs.Neutrophil (Seg) 6.23 k/uL Normal 1.50-8.10 [facility] Comment on above: Performed By: #### C DP, LIP, CP, TROPI #### [address] [place], [place] [address] Edging Catcher: Jordon Tai MD Basophils/100 WBC (Bld) 1 % Normal 0-2 [facility] Comment on above: Performed By: #### C DP, LIP, CP, TROPI #### [address] [place], [place] [address] Edging Catcher: Jordon Tai MD Eosinophils (Bld) [#/Vol] 0.11 10*3/uL Normal 0.00-0.44 [facility] Comment on above: Performed By: #### C DP, LIP, CP, TROPI #### [facility] [address] [place], [place] [phone] Edging Catcher: Jordon Tai MD Eosinophils/100 WBC (Bld) 1 % Normal 1-4 [facility] Comment on above: Performed By: #### C DP, LIP, CP, TROPI #### [address] [place], [place] [address] Edging Catcher: Jordon Tai MD Erythrocyte distribution width (RBC) [Ratio] 11.9 % Normal 11.8-14.4 [facility] Comment on above: Performed By: #### C DP, LIP, CP, TROPI #### [address] [place], [place] [address] Edging Catcher: Jordon Tai MD Hematocrit (Bld) [Volume fraction] 40.3 % Normal 36.3-47.1 [facility] Comment on above: Performed By: #### C DP, LIP, CP, TROPI #### [address] [place], [place] [address] Edging Catcher: Jordon Tai MD Hemoglobin (Bld) [Mass/Vol] 14.3 g/dL Normal 11.9-15.1 [facility] Comment on above: Performed By: #### C DP, LIP, CP, TROPI #### [address] [place], [place] [address] Edging Catcher: Jordon Tai MD Immature granulocytes/100 WBC (Bld) 0 % Normal 0 [facility] Comment on above: Performed By: #### C DP, LIP, CP, TROPI #### [address] [place], [place] [address] Edging Catcher: Jordon Tai MD Lymphocytes (Bld) [#/Vol] 3.27 10*3/uL Normal 1.10-3.70 [facility] Comment on above: Performed By: #### C DP, LIP, CP, TROPI #### [address] [place], [facility]83 Edging Catcher: Jordon Tai MD Lymphocytes/100 WBC (Bld) 31 % Normal 24-43 [facility] Comment on above: Performed By: #### C DP, LIP, CP, TROPI #### [address] [place], [place] [phone] Edging Catcher: Jordon Tai MD MCH (RBC) [Entitic mass] 30.0 pg Normal 25.2-33.5 [facility] Comment on above: Performed By: #### C DP, LIP, CP, TROPI #### [address] [place] [address] Edging Catcher: Jordon Tai MD MCHC (RBC) [Mass/Vol] 35.5 g/dL High 28.4-34.8 [facility] Comment on above: Performed By: #### C DP, LIP, CP, TROPI #### [address] [place] [address] Edging Catcher: Jordon Tai MD MCV (RBC) [Entitic vol] 84.5 fL Normal 82.6-102.9 [facility] Comment on above: Performed By: #### C DP, LIP, CP, TROPI #### [address] [place] [address] Edging Catcher: Jordon Tai MD Monocytes (Bld) [#/Vol] 0.69 10*3/uL Normal 0.10-1.20 [facility] Comment on above: Performed By: #### C DP, LIP, CP, TROPI #### [address] [place], [facility] ( Edging Catcher: Jordon Tai MD Monocytes/100 WBC (Bld) 7 % Normal 3-12 [facility] Comment on above: Performed By: #### C DP, LIP, CP, TROPI #### [address] [place], [place] [phone] Edging Catcher: Jordon Tai MD Neutrophil (Seg) 60 % Normal 36-65 [facility] Comment on above: Performed By: #### C DP, LIP, CP, TROPI #### [facility] [address] [place] [address] Edging Catcher: Jordon Tai MD NRBC Automated 0.0 per 100 WBC Normal 0.0 [facility] Comment on above: Performed By: #### C DP, LIP, CP, TROPI #### [facility] [address] [place], [place] [address] Edging Catcher: Jordon Tai MD Platelet mean volume (Bld) [Entitic vol] 9.3 fL Normal 8.1-13.5 [facility] Comment on above: Performed By: #### C DP, LIP, CP, TROPI #### [address] [place], [facility] Edging Catcher: Jordon Tai MD Platelets (Bld) [#/Vol] 381 10*3/uL Normal 138-453 [facility] Comment on above: Performed By: #### C DP, LIP, CP, TROPI #### [address] [place], [place] [address] Edging Catcher: Jordon Tai MD RBC (Bld) [#/Vol] 4.77 10*6/uL Normal 3.95-5.11 [facility] Comment on above: Performed By: #### C DP, LIP, CP, TROPI #### [address] [place], [facility]83 Edging Catcher: Jordon Tai MD WBC (Bld) [#/Vol] 10.4 10*3/uL Normal 3.5-11.3 [facility] Comment on above: Performed By: #### C DP, LIP, CP, TROPI #### [address] [place] [address] Edging Catcher: Jordon Tai MD Comp Metabolic Profon 2023 Albumin [Mass/Vol] 4.3 g/dL Normal 3.5-5.2 [facility] Comment on above: Performed By: #### C DP, LIP, CP, TROPI #### [address] [place] [address] Edging Catcher: Jordon Tai MD ALT [Catalytic activity/Vol] 34 U/L High 5-33 [facility] Comment on above: Performed By: #### C DP, LIP, CP, TROPI #### [address] [place], [place] [phone] Edging Catcher: Jordon Tai MD Anion gap [Moles/Vol] 16 mmol/L Normal 9-17 [facility] Comment on above: Performed By: #### C DP, LIP, CP, TROPI #### [address] [place] [address] Edging Catcher: Jordon Tai MD AST [Catalytic activity/Vol] 21 U/L Normal <32 [facility] Comment on above: Performed By: #### C DP, LIP, CP, TROPI #### [address] [place] [address] Edging Catcher: Jordon Tai MD Bilirubin [Mass/Vol] 0.4 mg/dL Normal 0.3-1.2 [facility] Comment on above: Performed By: #### C DP, LIP, CP, TROPI #### [address] [place], [place] [phone] Edging Catcher: Jordon Tai MD Calcium [Mass/Vol] 9.0 mg/dL Normal 8.6-10.4 [facility] Comment on above: Performed By: #### C DP, LIP, CP, TROPI #### [address] [place] [address] Edging Catcher: Jordon Tai MD Chloride [Moles/Vol] 96 mmol/L Low 98-107 [facility] Comment on above: Performed By: #### C DP, LIP, CP, TROPI #### [address] [place] [address] Edging Catcher: Jordon Tai MD CO2 [Moles/Vol] 24 mmol/L Normal 20-31 [facility] Comment on above: Performed By: #### C DP, LIP, CP, TROPI #### [address] [place], [place] [phone] Edging Catcher: Jordon Tai MD Creatinine [Mass/Vol] 0.7 mg/dL Normal 0.5-0.9 [facility] Comment on above: Performed By: #### C DP, LIP, CP, TROPI #### [address] [place] [address] Edging Catcher: Jordon Tai MD Glucose [Mass/Vol] 106 mg/dL High 70-99 [facility] Comment on above: Performed By: #### C DP, LIP, CP, TROPI #### [address] [place] [address] Edging Catcher: Jordon Tai MD Potassium [Moles/Vol] 3.3 mmol/L Low 3.7-5.3 [facility] Comment on above: Performed By: #### C DP, LIP, CP, TROPI #### [address] [place] [address] Edging Catcher: Jordon Tai MD Protein [Mass/Vol] 7.3 g/dL Normal 6.4-8.3 [facility] Comment on above: Performed By: #### C DP, LIP, CP, TROPI #### [address] [place] [address] Edging Catcher: Jordon Tai MD Sodium [Moles/Vol] 136 mmol/L Normal 135-144 [facility] Comment on above: Performed By: #### C DP, LIP, CP, TROPI #### [facility] [address] [place], [place] [phone] Edging Catcher: Jordon Tai MD Urea nitrogen [Mass/Vol] 6 mg/dL Normal 6-20 [facility] Comment on above: Performed By: #### C DP, LIP, CP, TROPI #### [facility] [address] [place], [place] [phone] Edging Catcher: Jordon Tai MD Albumin/Glob Ratio 1.4 Normal 1.0-2.5 [facility] Comment on above: Performed By: #### C DP, LIP, CP, TROPI #### [facility] [address] [place], [place] [phone] Edging Catcher: Jordon Tai MD Alkaline Phos 111 U/L High 35-104 [facility] Comment on above: Performed By: #### C DP, LIP, CP, TROPI #### [facility] [address] [place], [place] [phone] Edging Catcher: Jordon Tai MD BUN/CRE Ratio 9 Normal 9-20 [facility] Comment on above: Performed By: #### C DP, LIP, CP, TROPI #### [facility] [address] [place], [place] [phone] Edging Catcher: Jordon Tai MD GFR/1.73 sq M.predicted among non-blacks MDRD (S/P/Bld) [Vol rate/Area] mL/min/{1.73_m2} Normal >60 [facility] Comment on above: Result Comment: These [...] #### C DP, LIP, CP, TROPI #### [facility] [address] [place] [address] Edging Catcher: Jordon Tai MD Comprehensive Metabolic Pane misti 08-12-2023 Albumin/Globulin [Mass ratio] 1.4 {ratio} 1.0 - 2.5 [facility] ALP [Catalytic activity/Vol] 111 U/L High 35 - 104 U/L [facility] GFR/1.73 sq M.predicted MDRD (S/P/Bld) [Vol rate/Area] - PINF [facility] Comment on above: These results are not [...] Interpretation and review of laboratory results Abnormal [facility] Urea nitrogen/Creatinine [Mass ratio] 9 mg/mg 9 - 20 [facility] Lipaseon 08-12-2023 Lipase [Catalytic activity/Vol] 22 U/L Normal 13-60 [facility] Comment on above: Performed By: #### C DP, LIP, CP, TROPI #### [address] [place] [address] Edging Catcher: Jordon Tai MD No Panel Informationon 08-12 [facility] Portable XR Chest AP single viewon 08-12-2023 [...] from smoking or other previous infectious/inflammatory process. [facility] Radiology Study observation (narrative) [facility] Portable XR Chest AP single viewOrdered By: Rickey Kwan on 08-12-2023 [facility] Work Phone: Troponinon 08-12-2023 Troponin I.cardiac High sensitivity method [Mass/Vol] ng/L 0 - 14 ng/L [facility] Comment on above: High Sensitivity Tro ponin values cannot be compared with other Troponin methodologies. [facility] Troponin, High Sens <6 Normal 0-14 [facility] Comment on above: Result Comment: High Sensitivity Troponin values cannot be compared with other Troponin methodologies. Performed By: #### C DP, LIP, CP, TROPI #### [facility] [address] [place] [address] Edging Catcher: Jordon Tai MD XR CHEST PORTABLEon 08-12-19 [...] Rickey Kwan MD 08/12/23 Final result Normal [facility] Rapid Strep Screenon 024 Specimen source Nom (Unsp spec) .THROAT SWAB [facility] Strep A, Molecular Negative NEGATIVE [facility] Strep Group A, Rapidon 07-20 Strep A, Molecular Negative Normal NEG [facility] Comment on above: Performed By: #### C DP, LIP, CP, TROPI #### [facility] [address] [place] [address] [place] [address] Edging Catcher: Jordon Tai MD Source .THROAT SWAB Normal [facility] Comment on above: Performed By: #### C DP, LIP, CP, TROPI #### [facility] [address] [place] [address] [place] [address] Edging Catcher: Jordon Tai MD Lipid Profileon 04-29-2023 Cholesterol [Mass/Vol] 148 mg/dL Normal <200 [facility] Comment on above: Result Comment: Cholesterol Guidelines: <200 Desirable 200-240 Borderline >240 Undesirable Performed By: #### C DP, LIP, CP, TROPI #### [facility] [address] [place] [address] Edging Catcher: Jordon Tai MD Cholesterol in HDL [Mass/Vol] 39 mg/dL Low >40 [facility] Comment on above: Result Comment: HDL Guidelines: <40 Undesirable 40-59 Borderline >59 Desirable Performed By: #### C DP, LIP, CP, TROPI #### [facility] [address] [place], [place] [phone] Edging Catcher: Jordon Tai MD Cholesterol in LDL [Mass/Vol] 61 mg/dL Normal 0-130 [facility] Comment on above: Result Comment: LDL Guidelines: <100 Desirable 100-129 Near to/above Desirable 130-159 Borderline >159 Undesirable Direct (measured) LDL and calculated LDL are not interchangeable tests. Performed By: #### C DP, LIP, CP, TROPI #### [facility] [address] [place] [address] Edging Catcher: Jordon Tai MD Cholesterol.total/Audelia sterol in HDL [Mass ratio] 3.8 {ratio} Normal <5 [facility] Comment on above: Performed By: #### C DP, LIP, CP, TROPI #### [facility] [address] [place], [place] [phone] Edging Catcher: Jordon Tai MD Triglyceride [Mass/Vol] 240 mg/dL High <150 [facility] Comment on above: Result Comment: Triglyceride Guidelines: <150 Desirable 150-199 Borderline 200-499 High >499 Very high Based on AHA Guidelines for fasting triglyceride, April 2012. Performed By: #### C DP, LIP, CP, TROPI #### [address] [place], [place] [phone] Edging Catcher: Jordon Tai MD Troponinon 04-29-2023 Troponin, High Sens <6 Normal 0-14 [facility] Comment on above: Result Comment: High Sensitivity Troponin values cannot be compared with other Troponin methodologies. Performed By: #### C DP, LIP, CP, TROPI #### [facility] [address] [place] [address] Edging Catcher: Jordon Tai MD CBC with Diffon 04-24-2023 Abs. Basophil 0.04 k/uL Normal 0.00-0.20 [facility] Comment on above: Performed By: #### B MP, CBC #### [facility] [address] [place], [place] [phone] Edging Catcher: Jordon Tai MD Abs.Imm.Granulocyte <0.03 Normal 0.00-0.30 [facility] Comment on above: Performed By: #### B MP, CBC #### [address] [place] [phone] Edging Catcher: Jordon Tai MD Abs.Neutrophil (Seg) 3.01 k/uL Normal 1.50-8.10 [facility] Comment on above: Performed By: #### B MP, CBC #### [address] [place] [phone] Edging Catcher: Jordon Tai MD Basophils/100 WBC (Bld) 1 % Normal 0-2 [facility] Comment on above: Performed By: #### B MP, CBC #### [address] [place] [address] Edging Catcher: Jordon Tai MD Eosinophils (Bld) [#/Vol] 0.08 10*3/uL Normal 0.00-0.44 [facility] Comment on above: Performed By: #### B MP, CBC #### [address] [place] [phone] Edging Catcher: Jordon Tai MD Eosinophils/100 WBC (Bld) 1 % Normal 1-4 [facility] Comment on above: Performed By: #### B MP, CBC #### [address] [place], [place] 1966[address] Edging Catcher: Jordon Tai MD Erythrocyte distribution width (RBC) [Ratio] 11.8 % Normal 11.8-14.4 [facility] Comment on above: Performed By: #### B MP, CBC #### [address] [place] [phone] Edging Catcher: Jordon Tai MD Hematocrit (Bld) [Volume fraction] 37.0 % Normal 36.3-47.1 [facility] Comment on above: Performed By: #### B MP, CBC #### [facility] [address] [place] [address] [address] [place], [place] [phone] Edging Catcher: Jordon Tai MD Hemoglobin (Bld) [Mass/Vol] 13.1 g/dL Normal 11.9-15.1 [facility] Comment on above: Performed By: #### B MP, CBC #### [facility] [address] [place] [address] [place] [place], [place] [phone] Edging Catcher: Jordon Tai MD Immature granulocytes/100 WBC (Bld) 0 % Normal 0 [facility] Comment on above: Performed By: #### B RUPAL, CBC #### [address] [place] [address] Edging Catcher: Jordon Tai MD Lymphocytes (Bld) [#/Vol] 2.16 10*3/uL Normal 1.10-3.70 [facility] Comment on above: Performed By: #### B RUPAL, CBC #### [address] [place] [address] Edging Catcher: Jordon Tai MD Lymphocytes/100 WBC (Bld) 37 % Normal 24-43 [facility] Comment on above: Performed By: #### B MP, CBC #### [facility] [address] [place] [address] Dr[place], [place] 1988[address]83 Edging Catcher: Jordon Tai MD MCH (RBC) [Entitic mass] 31.3 pg Normal 25.2-33.5 [facility] Comment on above: Performed By: #### B MP, CBC #### [address] [place] [address] Edging Catcher: Jordon Tai MD MCHC (RBC) [Mass/Vol] 35.4 g/dL High 28.4-34.8 [facility] Comment on above: Performed By: #### B MP, CBC #### [facility] [address] [place], [place] [address] Edging Catcher: Jordon Tai MD MCV (RBC) [Entitic vol] 88.5 fL Normal 82.6-102.9 [facility] Comment on above: Performed By: #### B MP, CBC #### [facility] [address] [place], [facility] Edging Catcher: Jordon Tai MD Monocytes (Bld) [#/Vol] 0.46 10*3/uL Normal 0.10-1.20 [facility] Comment on above: Performed By: #### B MP, CBC #### [address] [place], [facility] Edging Catcher: Jordon Tai MD Monocytes/100 WBC (Bld) 8 % Normal 3-12 [facility] Comment on above: Performed By: #### B MP, CBC #### [address] [place], [facility] Edging Catcher: Jordon Tai MD Neutrophil (Seg) 52 % Normal 36-65 [facility] Comment on above: Performed By: #### B MP, CBC #### [address] [place], [place] [address] Edging Catcher: Jordon Tai MD NRBC Automated 0.0 per 100 WBC Normal 0.0 [facility] Comment on above: Performed By: #### B MP, CBC #### [address] [place] [phone] Edging Catcher: Jordon Tai MD Platelet Count See Reflexed IPF Result Normal 138-453 [facility] Comment on above: Performed By: #### B MP, CBC #### [facility] [address] [place] [address] Edging Catcher: Jordon Tai MD Platelet, Fluoresc. 205 k/uL Normal 138-453 [facility] Comment on above: Performed By: #### B MP, CBC #### [facility] [address] [place] [phone] Edging Catcher: Jordon Tai MD PLT, Immature Fract. 10.1 % Normal 1.1-10.3 [facility] Comment on above: Performed By: #### B MP, CBC #### [facility] [address] [place] [address] Edging Catcher: Jordon Tai MD RBC (Bld) [#/Vol] 4.18 10*6/uL Normal 3.95-5.11 [facility] Comment on above: Performed By: #### B RUPAL, CBC #### [address] [place] [phone] Edging Catcher: Jordon Tai MD WBC (Bld) [#/Vol] 5.8 10*3/uL Normal 3.5-11.3 [facility] Comment on above: Performed By: #### B RUPAL, CBC #### [address] [place] [phone] Edging Catcher: Jordon Tai MD CTA HEAD NECK W [...] Alejandro Keith MD 04/24/23 Final result Normal [facility] Comp Metabolic Pr/rfx MGon 1 Albumin [Mass/Vol] 3.9 g/dL Normal 3.5-5.2 [facility] Comment on above: Performed By: #### B RUPAL, CBC #### [facility] [address] [place] [address] Edging Catcher: Jordon Tai MD Albumin/Glob Ratio 1.5 Normal 1.0-2.5 [facility] Comment on above: Performed By: #### B RUPAL, CBC #### [facility] [address] [place] [address] Edging Catcher: Jordon Tai MD Alkaline Phos 101 U/L Normal 35-104 [facility] Comment on above: Performed By: #### B MP, CBC #### [facility] [address] [place], [place] [phone] Edging Catcher: Jordon Tai MD ALT [Catalytic activity/Vol] 32 U/L Normal 5-33 [facility] Comment on above: Performed By: #### B MP, CBC #### [facility] [address] [place], [place] [phone] Edging Catcher: Jordon Tai MD Anion gap [Moles/Vol] 13 mmol/L Normal 9-17 [facility] Comment on above: Performed By: #### B MP, CBC #### [facility] [address] [place], [place] [phone] Edging Catcher: Jordon Tai MD AST [Catalytic activity/Vol] 23 U/L Normal <32 [facility] Comment on above: Performed By: #### B MP, CBC #### [facility] [address] [place], [place] [phone] Edging Catcher: Jordon Tai MD Bilirubin [Mass/Vol] 0.3 mg/dL Normal 0.3-1.2 [facility] Comment on above: Performed By: #### B MP, CBC #### [facility] [address] [place], [place] [phone] Edging Catcher: Jordon Tai MD BUN/CRE Ratio 9 Normal 9-20 [facility] Comment on above: Performed By: #### B MP, CBC #### [facility] [address] [place], [place] [phone] Edging Catcher: Jordon Tai MD Calcium [Mass/Vol] 9.0 mg/dL Normal 8.6-10.4 [facility] Comment on above: Performed By: #### B MP, CBC #### [facility] [address] [place], [place] [phone] Edging Catcher: Jordon Tai MD Chloride [Moles/Vol] 104 mmol/L Normal 98-107 [facility] Comment on above: Performed By: #### B MP, CBC #### [facility] [address] [place] [address] Edging Catcher: Jordon Tai MD CO2 [Moles/Vol] 23 mmol/L Normal 20-[address] [facility] Comment on above: Performed By: #### B MP, CBC #### [facility] [address] [place] [address] Edging Catcher: Jordon Tai MD Creatinine [Mass/Vol] 0.7 mg/dL Normal 0.5-0.9 [facility] Comment on above: Performed By: #### B RUPAL, CBC #### [facility] [address] [place] [address] Edging Catcher: Jordon Tai MD GFR/1.73 sq M.predicted among non-blacks MDRD (S/P/Bld) [Vol rate/Area] mL/min/{1.73_m2} Normal >60 [facility] Comment on above: Result Comment: These [...] Performed By: #### B RUPAL, CBC #### [facility] [address] [place] [address] Edging Catcher: Jordon Tai MD Glucose [Mass/Vol] 108 mg/dL High 70-99 [facility] Comment on above: Performed By: #### B MP, CBC #### [facility] [address] [place] [address] Edging Catcher: Jordon Tai MD Potassium [Moles/Vol] 3.7 mmol/L Normal 3.7-5.3 [facility] Comment on above: Performed By: #### B MP, CBC #### [facility] [address] [place], [place] [phone] Edging Catcher: Jordon Tai MD Protein [Mass/Vol] 6.5 g/dL Normal 6.4-8.3 [facility] Comment on above: Performed By: #### B MP, CBC #### [facility] [address] [place] [address] Dr[place], [place] [phone] Edging Catcher: Jordon Tai MD Sodium [Moles/Vol] 140 mmol/L Normal 135-144 [facility] Comment on above: Performed By: #### B RUPAL, CBC #### [address] [place], [place] [phone] Edging Catcher: Jordon Tai MD Urea nitrogen [Mass/Vol] 6 mg/dL Normal 6-20 [facility] Comment on above: Performed By: #### B RUPAL, CBC #### [address] [place], [place] [phone] Edging Catcher: Jordon Tai MD Troponinon 04-24-2023 Troponin, High Sens 25 ng/L High 0-14 [facility] Comment on above: Result Comment: High Sensitivity Troponin values cannot be compared with other Troponin methodologies. Performed By: #### B RUPAL, CBC #### [facility] [address] [place] [address] Dr[place], [place] [phone] Edging Catcher: Jordon Tai MD Basic Metabolic Profon 04-23 Anion gap [Moles/Vol] 13 mmol/L Normal 9-17 [facility] Comment on above: Performed By: #### C DP, LIP, CP, TROPI #### [facility] [address] [place] [address] [place], [place] [phone] Edging Catcher: Jordon Tai MD BUN/CRE Ratio 6 Low 9-20 [facility] Comment on above: Performed By: #### C DP, LIP, CP, TROPI #### [facility] [address] [place] [address] Edging Catcher: Jordon Tai MD Calcium [Mass/Vol] 9.4 mg/dL Normal 8.6-10.4 [facility] Comment on above: Performed By: #### C DP, LIP, CP, TROPI #### [facility] [address] [place], [place] [phone] Edging Catcher: Jordon Tai MD Chloride [Moles/Vol] 102 mmol/L Normal 98-107 [facility] Comment on above: Performed By: #### C DP, LIP, CP, TROPI #### [facility] [address] [place], [place] [phone] Edging Catcher: Jordon Tai MD CO2 [Moles/Vol] 25 mmol/L Normal 20-[address] [facility] Comment on above: Performed By: #### C DP, LIP, CP, TROPI #### [facility] [address] [place] [address] Edging Catcher: Jordon Tai MD Creatinine [Mass/Vol] 0.7 mg/dL Normal 0.5-0.9 [facility] Comment on above: Performed By: #### C DP, LIP, CP, TROPI #### [facility] [address] [place] [address] Edging Catcher: Jordon Tai MD GFR/1.73 sq M.predicted among non-blacks MDRD (S/P/Bld) [Vol rate/Area] mL/min/{1.73_m2} Normal >60 [facility] Comment on above: Result Comment: These [...] #### C DP, LIP, CP, TROPI #### [address] [place] [address] Edging Catcher: Jordon Tai MD Glucose [Mass/Vol] 118 mg/dL High 70-99 [facility] Comment on above: Performed By: #### C DP, LIP, CP, TROPI #### [address] [place] [address] Edging Catcher: Jordon Tai MD Potassium [Moles/Vol] 3.1 mmol/L Low 3.7-5.3 [facility] Comment on above: Performed By: #### C DP, LIP, CP, TROPI #### [address] [place] [address] Edging Catcher: Jordon Tai MD Sodium [Moles/Vol] 140 mmol/L Normal 135-144 [facility] Comment on above: Performed By: #### C GRAEME LIP, CP, TROPI #### [address] [place] [address] Edging Catcher: Jordon Tai MD Urea nitrogen [Mass/Vol] 4 mg/dL Low 6-20 [facility] Comment on above: Performed By: #### C DP, LIP, CP, TROPI #### [address] [place] [address] Edging Catcher: Jordon Tai MD CBC with Diffon 04-23-2023 Abs. Basophil 0.03 k/uL Normal 0.00-0.20 [facility] Comment on above: Performed By: #### C DP, LIP, CP, TROPI #### [address] [place] [address] Edging Catcher: Jordon Tai MD Abs.Imm.Granulocyte 0.03 k/uL Normal 0.00-0.30 [facility] Comment on above: Performed By: #### C DP, LIP, CP, TROPI #### [address] [place], [place] [address] Edging Catcher: Jordon Tai MD Abs.Neutrophil (Seg) 4.45 k/uL Normal 1.50-8.10 [facility] Comment on above: Performed By: #### C DP, LIP, CP, TROPI #### [address] [place], [place] [address] Edging Catcher: Jordon Tai MD Basophils/100 WBC (Bld) 0 % Normal 0-2 [facility] Comment on above: Performed By: #### C DP, LIP, CP, TROPI #### [address] [place], [place] [address] Edging Catcher: Jordon Tai MD Eosinophils (Bld) [#/Vol] 0.08 10*3/uL Normal 0.00-0.44 [facility] Comment on above: Performed By: #### C DP, LIP, CP, TROPI #### [address] [place], [facility]83 Edging Catcher: Jordon Tai MD Eosinophils/100 WBC (Bld) 1 % Normal 1-4 [facility] Comment on above: Performed By: #### C DP, LIP, CP, TROPI #### [address] [place], [place] [address] Edging Catcher: Jordon Tai MD Erythrocyte distribution width (RBC) [Ratio] 11.6 % Low 11.8-14.4 [facility] Comment on above: Performed By: #### C DP, LIP, CP, TROPI #### [address] [place], [facility]83 Edging Catcher: Jordon Tai MD Hematocrit (Bld) [Volume fraction] 37.6 % Normal 36.3-47.1 [facility] Comment on above: Performed By: #### C DP, LIP, CP, TROPI #### [address] [place] [address] Edging Catcher: Jordon Tia MD Hemoglobin (Bld) [Mass/Vol] 13.5 g/dL Normal 11.9-15.1 [facility] Comment on above: Performed By: #### C DP, LIP, CP, TROPI #### [address] [place] [address] Edging Catcher: Jordon Tai MD Immature granulocytes/100 WBC (Bld) 0 % Normal 0 [facility] Comment on above: Performed By: #### C DP, LIP, CP, TROPI #### [address] [place], [place] [address] Edging Catcher: Jordon Tai MD Lymphocytes (Bld) [#/Vol] 2.10 10*3/uL Normal 1.10-3.70 [facility] Comment on above: Performed By: #### C DP, LIP, CP, TROPI #### [address] [place], [place] [phone] Edging Catcher: Jordon Tai MD Lymphocytes/100 WBC (Bld) 29 % Normal 24-43 [facility] Comment on above: Performed By: #### C DP, LIP, CP, TROPI #### [address] [place], [facility]83 Edging Catcher: Jordon Tai MD MCH (RBC) [Entitic mass] 31.2 pg Normal 25.2-33.5 [facility] Comment on above: Performed By: #### C DP, LIP, CP, TROPI #### [address] [place], [place] [phone] Edging Catcher: Jordon Tai MD MCHC (RBC) [Mass/Vol] 35.9 g/dL High 28.4-34.8 [facility] Comment on above: Performed By: #### C DP, LIP, CP, TROPI #### [facility] [address] [place] [address] Edging Catcher: Jordon Tai MD MCV (RBC) [Entitic vol] 86.8 fL Normal 82.6-102.9 [facility] Comment on above: Performed By: #### C DP, LIP, CP, TROPI #### [address] [place], [place] [phone] Edging Catcher: Jordon Tai MD Monocytes (Bld) [#/Vol] 0.57 10*3/uL Normal 0.10-1.20 [facility] Comment on above: Performed By: #### C DP, LIP, CP, TROPI #### [address] [place] [address] Edging Catcher: Jordon Tai MD Monocytes/100 WBC (Bld) 8 % Normal 3-12 [facility] Comment on above: Performed By: #### C DP, LIP, CP, TROPI #### [address] [place] [address] Edging Catcher: Jordon Tai MD Neutrophil (Seg) 62 % Normal 36-65 [facility] Comment on above: Performed By: #### C DP, LIP, CP, TROPI #### [address] [place] [address] Edging Catcher: Jordon Tai MD NRBC Automated 0.0 per 100 WBC Normal 0.0 [facility] Comment on above: Performed By: #### C DP, LIP, CP, TROPI #### [facility] [address] [place], [place] [id number] Edging Catcher: Jordon Tai MD Platelet mean volume (Bld) [Entitic vol] 9.9 fL Normal 8.1-13.5 [facility] Comment on above: Performed By: #### C DP, LIP, CP, TROPI #### [facility] [address] [place] [address] [place], [place] [phone] Edging Catcher: Jordon Tai MD Platelets (Bld) [#/Vol] 284 10*3/uL Normal 138-453 [facility] Comment on above: Performed By: #### C DP, LIP, CP, TROPI #### [facility] [address] [place], [place] [id number] Edging Catcher: Jordon Tai MD RBC (Bld) [#/Vol] 4.33 10*6/uL Normal 3.95-5.11 [facility] Comment on above: Performed By: #### C DP, LIP, CP, TROPI #### [address] [place], [place] [phone] Edging Catcher: Jordon Tai MD WBC (Bld) [#/Vol] 7.3 10*3/uL Normal 3.5-11.3 [facility] Comment on above: Performed By: #### C DP, LIP, CP, TROPI #### [address] [place], [place] [phone] Edging Catcher: Jordon Tai MD CT HEAD WO CONTRASTon [...] Reggie Rivera MD 04/23/23 Final result Normal [facility] Troponinon 04-23-2023 Troponin, High Sens <6 Normal 0-14 [facility] Comment on above: Result Comment: High Sensitivity Troponin values cannot be compared with other Troponin methodologies. Performed By: #### C DP, LIP, CP, TROPI #### [facility] [address] [place] [address] Edging Catcher: Jordon Tai MD Troponin, High Sens <6 Normal 0-14 [facility] Comment on above: Result Comment: High Sensitivity Troponin values cannot be compared with other Troponin methodologies. Performed By: #### C DP, LIP, CP, TROPI #### [facility] [address] [place] [address] Edging Catcher: Jordon Tai MD XR CHEST PORTABLEon 04-23-20 [...] Leonides Fernandez MD 04/23/23 Final result Normal [facility] C Fungalon 04-06-2023 C Fungal ---- Final No growth at 4 weeks. Normal [facility] Comment on above: Performed By: #### F C #### [address] [address] C ANAon 03-12-2023 C MANDY ---- Final No anaerobic growth after 72 hrs. Normal [facility] Comment on above: Performed By: #### A SHELL #### [place] [id number] C Woundon 03-10-2023 C Wound add gram stain Final Rare Normal skin ariane isolated Gram Stain Rare White Blood Cells No organisms seen. Normal [facility] Comment on above: Performed By: #### W DC #### [facility] (DEFAULT) [address] [place], [place] [id number] [place] [address] No Panel Informationon 03-05 1. No acute osseous abnormality of the left wrist or the left hand. 2. No retained radiopaque foreign body. [facility] RIS CONSOLIDATED EXAMINATION: THREE XRAY VIEWS OF [...] of erosion. No retained radiopaque foreign body. [facility] Jordon eBll MD - 03/05/2023 EXAMINATION: THREE XRAY VIEWS [...] hand. 2. No retained radiopaque foreign body. [facility] [employer] No Panel InformationOrdered By: Jordon Cesar on 03-05-2023 [facility] [employer] Work Phone: XR HAND LEFT (MIN 3 VIEWS)on 03-05-2023 Radiology Study observation (narrative) [facility]ALSports[facility]ws XR WRIST LEFT (MIN 3 VIEWS)o n 03-05-2023 Radiology Study observation (narrative) [facility] [employer] [facility] [employer] CBC with Auto Differentialon 02-22-2023 Basophils (Bld) [#/Vol] 0.04 10*3/uL [facility]ITALMay[facility] [employer] Basophils/100 WBC (Bld) 1 % 0 - 2 % [facility] Eosinophils (Bld) [#/Vol] 0.08 10*3/uL [facility] Eosinophils/100 WBC (Bld) 1 % 1 - 4 % [facility] [employer] Erythrocyte distribution width (RBC) [Ratio] 11.9 % 11.8 - 14.4 % [facility]PITALDomain Developers Fund [facility] [employer] Hematocrit (Bld) [Volume fraction] 34.6 % Low 36.3 - 47.1 % [facility] Hemoglobin (Bld) [Mass/Vol] 12.1 g/dL 11.9 - 15.1 g/dL [facility] Immature granulocytes (Bld) [#/Vol] [facility] Immature granulocytes/100 WBC (Bld) 0 % 0 [facility] Interpretation and review of laboratory results Abnormal [facility] Lymphocytes/100 WBC (Bld) 30 % 24 - 43 % [facility] Lymphocytes/100 WBC (Bld) 1.84 % [facility] MCH (RBC) [Entitic mass] 31.1 pg 25.2 - 33.5 pg [facility] MCHC (RBC) [Mass/Vol] 35.0 g/dL High 28.4 - 34.8 g/dL [facility] MCV (RBC) [Entitic vol] 88.9 fL 82.6 - 102.9 fL [facility] Monocytes/100 WBC (Bld) 7 % 3 - 12 % [facility] Monocytes/100 WBC (Bld) 0.45 % [facility] Neutrophils/100 WBC (Bld) 61 % 36 - 65 % [facility] Nucleated RBC/100 WBC (Bld) [Ratio] 0.0 % 0.0 per 100 WBC [facility] Platelet mean volume (Bld) [Entitic vol] 9.4 fL 8.1 - 13.5 fL [facility] Platelets (Bld) [#/Vol] 254 10*3/uL [facility] RBC (Bld) [#/Vol] 3.89 10*6/uL Low 3.95 - 5.11 m/uL [facility] Segmented neutrophils/100 WBC (Bld) 3.62 % [facility] WBC other (Bld) [#/Vol] 6.[address] [facility] CT ABDOMEN PELVIS W IV CONTR AST [...] No acute osseous or soft tissue abnormality. [facility] Hiro Leiva MD - 02/22/2023 EXAMINATION: CT [...] acute abnormality in the abdomen or pelvis. [facility] Radiology Study observation (narrative) [facility] CT ABDOMEN PELVIS W IV CONTR AST Additional Contrast? NoneOrdered By: Hiro Reza on 02-22-2023 [facility] [employer] Work Phone: Comprehensive Metabolic Pane misti 02-22-2023 Albumin [Mass/Vol] 4.4 g/dL 3.5 - 5.2 g/dL [facility] Albumin/Globulin [Mass ratio] 1.5 {ratio} 1.0 - 2.5 [facility] ALP [Catalytic activity/Vol] 95 U/L 35 - 104 U/L [facility] ALT [Catalytic activity/Vol] 23 U/L 5 - 33 U/L [facility] Anion gap [Moles/Vol] 12 mmol/L 9 - 17 mmol/L [facility] AST [Catalytic activity/Vol] 24 U/L NINF - 32 U/L [facility] Bilirubin [Mass/Vol] 0.6 mg/dL 0.3 - 1 .2 mg/dL [facility] Calcium [Mass/Vol] 9.2 mg/dL 8.6 - 10. 4 mg/dL [facility] Chloride [Moles/Vol] 103 mmol/L 98 - 10 7 mmol/L [facility] CO2 [Moles/Vol] 25 mmol/L 20 - 31 mmol/L [facility] Creatinine [Mass/Vol] 0.7 mg/dL 0.5 - 0.9 mg/dL [facility] GFR/1.73 sq M.predicted MDRD (S/P/Bld) [Vol rate/Area] [...] 101 mg/dL High 70 - 99 mg/dL [facility] Interpretation and review of laboratory results Abnormal [facility] Potassium [Moles/Vol] 3.3 mmol/L Low 3.7 - 5.3 mmol/L [facility] Protein [Mass/Vol] 7.3 g/dL 6.4 - 8.3 g/dL [facility] Sodium [Moles/Vol] 140 mmol/L 135 - 144 mmol/L [facility] Urea nitrogen [Mass/Vol] 9 mg/dL 6 - 20 mg/dL [facility] Urea nitrogen/Creatinine [Mass ratio] 13 mg/mg 9 - 20 [facility] Lactic Acidon 02-22-2023 Lactate (BldV) [Moles/Vol] 1.5 mmol/L 0.5 - 2.2 mmol/L [facility] Urinalysis with Microscopico n 02-22-2023 Bacteria LM Ql (Urine sed) TRACE Abnormal None [facility] Bilirubin Ql (U) Negative NEGATIVE [facility] Clarity (U) Clear Clear [facility] Color (U) Yellow Yellow [facility] Epithelial cells LM.HPF (Urine sed) [#/Area] 0 TO 2 [facility] Glucose Test strip (U) [Mass/Vol] Negative NEGATIVE mg/dL [facility] Hemoglobin Auto test strip Ql (U) Negative NEGATIVE [facility] Interpretation and review of laboratory results Abnormal [facility] Ketones (U) [Mass/Vol] Negative NEGAT [place] mg/dL [facility] Leukocyte esterase Test strip Ql (U) Negative NEGATIVE [facility] Nitrite Ql (U) Negative NEGATIVE [facility] pH (U) 6.5 [pH] 5.0 - 9.0 [facility] [employer] Protein (U) [Mass/Vol] Negative NEGAT [place] mg/dL [facility] RBC LM.HPF (Urine sed) [#/Area] None [facility] Specific gravity (U) [Rel density] Low 1.010 - 1.020 [facility] Urobilinogen Qn (U) Normal 0.0 - 1. 0 EU/dL [facility] WBC LM.HPF (Urine sed) [#/Area] None [facility] XR KNEE RIGHT (1-2 VIEWS)on 12-21-2022 No acute abnormality right knee. [facility] CONSOLIDATED EXAMINATION: TWO XRAY VIEWS OF THE RIGHT KNEE 12/21/2022 11:35 am COMPARISON: Previous three-view study of the right knee from 05/01/2022 HISTORY: ORDERING SYSTEM PROVIDED HISTORY: Twisted TECHNOLOGIST PROVIDED HISTORY: Twisted FINDINGS: No fracture. No dislocation. No joint effusion. Mild unchanged degenerative findings. No destructive or blastic lesion. [facility] Jarred Kruse MD - 12/21/2022 EXAMINATION: TWO XRAY VIEWS OF THE RIGHT KNEE 12/21/2022 11:35 am COMPARISON: Previous three-view study of the right knee from 05/01/2022 HISTORY: ORDERING SYSTEM PROVIDED HISTORY: Twisted TECHNOLOGIST PROVIDED HISTORY: Twisted FINDINGS: No fracture. No dislocation. No joint effusion. Mild unchanged degenerative findings. No destructive or blastic lesion. IMPRESSION: No acute abnormality right knee. [facility]ITAL[facility] [employer] Work Phone: Radiology Study observation (narrative) [facility] [employer] Work Phone: XR KNEE RIGHT (1-2 VIEWS)Ord ered By: Jarred Kruse on 12-21-2022 [facility] [employer] Work Phone: XR SHOULDER LEFT (MIN 2 VIEW S)on 12-21-2022 No acute abnormality . [facility] CONSOLIDATED EXAMINATION: 3 XRAY VIEWS OF THE [...] Cardiac stent and loop recorder again noted. [facility] Jarred Kruse MD - 12/21/2022 EXAMINATION: [...] recorder again noted. IMPRESSION: No acute abnormality. [employer] Phone: [employer] Phone: Radiology Study observation (narrative) [employer] Phone: XR WRIST LEFT (MIN 3 VIEWS)o n 12-21-2022 Unchanged wrist radiographs without acute abnormality. [facility] CONSOL[facility]ATED EXAMINATION: 3 XRAY VIEWS OF THE LEFT WRIST 12/21/2022 11:35 am COMPARISON: Previous three-view study of the left wrist from 2018 HISTORY: ORDERING SYSTEM PROVIDED HISTORY: Fall onto TECHNOLOGIST PROVIDED HISTORY: Fall onto FINDINGS: Carpal bones and alignment are maintained. Distal radius and ulna are intact. No acute fracture or dislocation. Slight degenerative change carpal 1st metacarpal joint space. [facility] Jarred Kruse MD - 12/21/2022 EXAMINATION: [...] wrist radiographs without acute abnormality. 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 Procedure Date Date: 11/18/2022 Start: 01:26 PM Study Location: [facility] Indications:Chest pain. History / Tech. 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 Procedure Date Date: 11/18/2022 Start: 01:26 PM Study Location: [facility] Indications:Chest pain. History / Tech. Comments: [...] TR Velocity: 1.89 m/s Peak TR Gradient: 14.61215 mmHg Diastology / Tissue Doppler Lateral Wall E' velocity:0.12 m/s Lateral Wall E/E':4.5 [employer] Work Phone: [employer] Work Phone: Basic Metabolic Panelon 02-0 Anion gap [Moles/Vol] 14 mmol/L 9 - 17 mmol/L [employer] Calcium [Mass/Vol] 9.3 mg/dL 8.6 - 10. 4 mg/dL [employer] Chloride [Moles/Vol] 100 mmol/L 98 - 10 7 mmol/L [employer] CO2 [Moles/Vol] 24 mmol/L 20 - 31 mmol/L [facility] Creatinine [Mass/Vol] 0.71 mg/dL 0.50 - 0.90 mg/dL [facility] GFR/1.73 sq M.predicted MDRD (S/P/Bld) [Vol rate/Area] - PINF [facility] Comment on above: These results are not [...] 127 mg/dL High 70 - 99 mg/dL [facility] Interpretation and review of laboratory results Abnormal [facility] Potassium [Moles/Vol] 3.5 mmol/L Low 3.7 - 5.3 mmol/L [facility] Sodium [Moles/Vol] 138 mmol/L 135 - 144 mmol/L [facility] Urea nitrogen [Mass/Vol] 7 mg/dL 6 - 20 mg/dL [facility] Urea nitrogen/Creatinine (Bld) [Mass ratio] 10 9 - 20 [facility] Basic to Comprehensive [facility] 08-20-2022 Albumin [Mass/Vol] 4.3 g/dL 3.5 - 5.2 g/dL [facility] Albumin/Globulin [Mass ratio] 1.5 {ratio} 1.0 - 2.5 [facility] ALP [Catalytic activity/Vol] 90 U/L 35 - 104 U/L [facility] ALT [Catalytic activity/Vol] 66 U/L High 5 - 33 U/L [facility] AST [Catalytic activity/Vol] 52 U/L High NINF - 32 U/L [facility] Bilirubin [Mass/Vol] 0.3 mg/dL 0.3 - 1 .2 mg/dL [facility] Interpretation and review of laboratory results Abnormal [facility] Protein [Mass/Vol] 7.1 g/dL 6.4 - 8.3 g/dL [facility] CBC with Auto Differentialon 08-20-2022 Absolute Eos # 0.09 [facility] Absolute Immature Granulocyte [facility] Absolute Lymph # 2.66 [facility] Absolute Baca # 0.47 [facility] Basophils (Bld) [#/Vol] 0.06 10*3/uL [facility] Basophils/100 WBC (Bld) 1 % 0 - 2 % [facility] Eosinophils/100 WBC (Bld) 1 % 1 - 4 % [facility] Hematocrit (Bld) [Volume fraction] 35.8 % Low 36.3 - 47.1 % [facility] Hemoglobin (Bld) [Mass/Vol] 12.8 g/dL 11.9 - 15.1 g/dL [facility] Immature granulocytes/100 WBC (Bld) 0 % 0 [facility] Interpretation and review of laboratory results Abnormal [facility] Lymphocytes/100 WBC (Bld) 35 % 24 - 43 % [facility] MCH (RBC) [Entitic mass] 32.0 pg 25.2 - 33.5 pg [facility] MCHC (RBC) [Mass/Vol] 35.8 g/dL High 28.4 - 34.8 g/dL [facility] MCV (RBC) [Entitic vol] 89.5 fL 82.6 - 102.9 fL [facility] Monocytes/100 WBC (Bld) 6 % 3 - 12 % [facility] NRBC Automated 0.0 0.0 per 100 WBC [facility] Platelet distribution width (Bld) [Ratio] 11.9 % 11.8 - 14.4 % [facility] Platelet mean volume (Bld) [Entitic vol] 9.7 fL 8.1 - 13.5 fL [facility] Platelets (Bld) [#/Vol] 297 10*3/uL [facility] RBC (Bld) [#/Vol] 4.00 10*6/uL 3.95 - 5.11 m/uL [facility] Segmented neutrophils/100 WBC (Bld) 57 % 36 - 65 % [facility] Segs Absolute 4.36 [facility] WBC (Bld) [#/Vol] 7.7 10*3/uL [facility] Catheterization and angiogra phy procedure details panelon 08-20-2022 Cardiac Diagnostic Report Demographics Patient ADRIÁN Bee Date of Study 08/20/2022 Name Date of 1975 Gender Female Age 46 year(s) Race Room [id number]^MICHAEL^RONAN Height: 64 inch, 162.56 cm Number Corporate [id number] Weight: 194 pounds, 87.9 kg ID # Patient [id number] BSA: 1.93 m^2 BMI: 33.26 Acct # kg/m^2 MR # [id number] Performing Physician Ronan Rodriguez Referring Physician # Assisting Physician Additional Comments ASA & Mallampati documented in [facility] by Physician. H&P reviewed and [...] Right coronary angiography. Contrast Material: - Isovue 57210 ml Fluoroscopy Time: Diagnostic: 4:06 minutes. Total: [...] assessed as CCS IV according to the Yemeni clinical classification (more content not included)... [facility] Ronan Rodriguez MD - 08/20/2022 Cardiac Diagnostic Report Demographics Patient ADRIÁN Bee Date of Study 08/20/2022 Name Date of 1975 Gender Female Age 46 year(s) Race Room [id number]^LUXNAVA^RONAN Height: 64 inch, 162.56 cm Number Corporate [id number] Weight: 194 pounds, 87.9 kg ID # Patient [id number] BSA: 1.93 m^2 BMI: 33.26 Acct # kg/m^2 MR # [id number] Performing Physician Ronan Rodriguez Referring Physician # [...] Right coronary angiography. Contrast Material: - Isovue 93786 ml Fluoroscopy Time: Diagnostic: 4:06 minutes. Total: [...] assessed as CCS IV according to the Yemeni clinical classification. Hemodynamics Condition: Baseline Room Air Estimated: 186.28Heart Rate: 63 bpm Pressure +-----+ --- + !Site !Pressure ! +-----+ --- + !AO !106/59 (80) ! +-----+ --- + !LV !106/0 ,11 ! +-----+ (more content not included)... [employer] Work Phone: [employer] Work Phone: Catheterization and angiogra phy procedure details panelOrdered By: Unknown Result on 08-20-2022 [employer] Troponinon 08-20-2022 Troponin I.cardiac DL <= 0.01 ng/mL [Mass/Vol] ng/L 0 - 14 ng/L [employer] Comment on above: High Sensitivity Tro ponin values cannot be compared with other Troponin methodologies. [employer] Troponin I.cardiac DL <= 0.01 ng/mL [Mass/Vol] ng/L 0 - 14 ng/L [facility] [employer] Comment on above: High Sensitivity Tro ponin values cannot be compared with other Troponin methodologies. [facility] [employer] XR CHEST PORTABLEon 08-20-19 No acute process. [facility] CONSOL[facility]ATED EXAMINATION: ONE XRAY VIEW OF THE CHEST 08/20/2022 12:50 pm COMPARISON: 10/19/2021 HISTORY: ORDERING SYSTEM PROVIDED HISTORY: chest pain TECHNOLOGIST PROVIDED HISTORY: chest pain FINDINGS: Loop recorder in place. The lungs are without acute focal process. There is no effusion or pneumothorax. The cardiomediastinal silhouette is stable. The osseous structures are stable. [facility] Janae Espinoza MD - 08/20/2022 EXAMINATION: ONE XRAY VIEW OF THE CHEST 08/20/2022 12:50 pm COMPARISON: 10/19/2021 HISTORY: ORDERING SYSTEM PROVIDED HISTORY: chest pain TECHNOLOGIST PROVIDED HISTORY: chest pain FINDINGS: Loop recorder in place. The lungs are without acute focal process. There is no effusion or pneumothorax. The cardiomediastinal silhouette is stable. The osseous structures are stable. IMPRESSION: No acute process. [facility] [employer] Work Phone: Radiology Study observation (narrative) [facility] [employer] Work Phone: XR CHEST PORTABLEOrdered By: Janae Espinoza on 08-20-2022 [facility] [employer] Work Phone: CBC with Auto Differentialon 07-28-2022 Absolute Eos # 0.10 [place] [facility] Absolute Immature Granulocyte 0.05 [facility] Absolute Lymph # 1.91 [facility] [employer] Absolute Baca # 0.49 [facility] [employer] Basophils (Bld) [#/Vol] 0.04 10*3/uL [facility] Basophils/100 WBC (Bld) 1 % 0 - 2 % B [facility] [employer] Eosinophils/100 WBC (Bld) 2 % 1 - 4 % [facility] Hematocrit (Bld) [Volume fraction] 34.6 % Low 36.3 - 47.1 % [facility] Hemoglobin (Bld) [Mass/Vol] 12.3 g/dL 11.9 - 15.1 g/dL [facility] Immature granulocytes/100 WBC (Bld) 1 % High 0 [facility] Interpretation and review of laboratory results Abnormal [facility] Lymphocytes/100 WBC (Bld) 29 % 24 - 43 % [facility] MCH (RBC) [Entitic mass] 31.5 pg 25.2 - 33.5 pg [facility] MCHC (RBC) [Mass/Vol] 35.5 g/dL High 28.4 - 34.8 g/dL [facility] MCV (RBC) [Entitic vol] 88.7 fL 82.6 - 102.9 fL [facility] Monocytes/100 WBC (Bld) 8 % 3 - 12 % [facility] NRBC Automated 0.0 0.0 per 100 WBC [facility] Platelet distribution width (Bld) [Ratio] 11.9 % 11.8 - 14.4 % [facility] Platelet mean volume (Bld) [Entitic vol] 9.6 fL 8.1 - 13.5 fL [facility] Platelets (Bld) [#/Vol] 291 10*3/uL [facility] RBC (Bld) [#/Vol] 3.90 10*6/uL Low 3.95 - 5.11 m/uL [facility] Segmented neutrophils/100 WBC (Bld) 59 % 36 - 65 % [facility] Segs Absolute 3.92 [facility] WBC (Bld) [#/Vol] 6.5 10*3/uL [facility] CMPon 07-28-2022 Albumin [Mass/Vol] 4.1 g/dL 3.5 - 5.2 g/dL [facility] Albumin/Globulin [Mass ratio] 1.6 {ratio} 1.0 - 2.5 [facility] ALP (Bld) [Catalytic activity/Vol] 95 U/L 35 - 104 U/L [facility] [facility] ALT [Catalytic activity/Vol] 86 U/L High 5 - 33 U/L [facility] Anion gap [Moles/Vol] 9 mmol/L 9 - 17 mmol/L [facility] AST [Catalytic activity/Vol] 49 U/L High NINF - 32 U/L [facility] Bilirubin [Mass/Vol] 0.5 mg/dL 0.3 - 1 .2 mg/dL [facility] Calcium [Mass/Vol] 9.4 mg/dL 8.6 - 10. 4 mg/dL [facility] Chloride [Moles/Vol] 103 mmol/L 98 - 10 7 mmol/L [facility] CO2 [Moles/Vol] 27 mmol/L 20 - 31 mmol/L [facility] Creatinine [Mass/Vol] 0.63 mg/dL 0.50 - 0.90 mg/dL [facility] GFR/1.73 sq M.predicted MDRD (S/P/Bld) [Vol rate/Area] - PINF [facility] Comment on above: Effective Apr 20, 2022 [...] 105 mg/dL High 70 - 99 mg/dL [facility] Interpretation and review of laboratory results Abnormal [facility] Potassium [Moles/Vol] 3.7 mmol/L 3.7 - 5.3 mmol/L [facility] Protein [Mass/Vol] 6.7 g/dL 6.4 - 8.3 g/dL [facility] Sodium [Moles/Vol] 139 mmol/L 135 - 144 mmol/L [facility] Urea nitrogen (BldV) [Mass/Vol] 9 mg/dL 6 - 20 mg/dL [facility] Urea nitrogen/Creatinine (Bld) [Mass ratio] 14 9 - 20 [facility] CT ABDOMEN PELVIS W IV CONTR AST Additional Contrast? Noneon 07-28-2022 No acute process identified. Status post cholecystectomy and hysterectomy. Degenerative and postoperative changes noted in the lower lumbar spine. [facility] EXAMINATION: CT OF THE ABDOMEN AND [...] are noted bilaterally at L5 and S1. [facility] Jose Jo MD - 07/28/2022 EXAMINATION: [...] changes noted in the lower lumbar spine. [facility] [employer] Work Phone: Radiology Study observation (narrative) [facility] [employer] Work Phone: CT ABDOMEN PELVIS W IV CONTR AST Additional Contrast? NoneOrdered By: Jose Jo on 07-28-2022 [facility]ITAL[facility] [employer] Work Phone: Lactic Acidon 07-28-2022 Lactate [Moles/Vol] 1.3 mmol/L 0.5 - 2. 2 mmol/L [facility] Lipaseon 07-28-2022 Lipase [Catalytic activity/Vol] 30 U/L 13 - 60 U/L [facility] Microscopic Urinalysison Bacteria, UA 2+ Abnormal None [facility] Epithelial Cells UA 2 TO 5 [facility] Interpretation and review of laboratory results Abnormal [facility] Mucus, UA 1+ Abnormal None [facility] RBC, UA 0 TO 2 [facility] WBC, UA 0 TO 2 [facility] No Panel Informationon 07-28 [facility] Urinalysis with Reflex to Cu ltureon 07-28-2022 Bilirubin Urine Negative NEGATIVE [facility] [employer] Color, UA Yellow Yellow [facility] Glucose, Ur Negative NEGATIVE [facility] Interpretation and review of laboratory results Abnormal [facility] Ketones Ql (U) Negative NEGATIVE [facility] Leukocyte esterase Test strip Ql (U) Negative NEGATIVE [facility] Nitrite, Urine Negative NEGATIVE [facility] pH, UA 6.0 5.0 - 9.0 [facility] Protein, UA Negative NEGATIVE [facility] Specific Russell, UA High 1.010 - 1.020 [facility] Turbidity UA Clear Clear [facility] Urine Hgb Negative NEGATIVE [facility] Urobilinogen, Urine Normal Normal [facility] MRI CERVICAL SPINE WO MARCIA Sarabia 05-08-2022 Multilevel degenerat farshad disc disease with uncovertebral and facet hypertrophy resulting in canal stenosis throughout the mid cervical spine. Bilateral foraminal narrowing as described above. [facility] EXAMINATION: MRI OF THE CERVICAL [...] spinal canal stenosis or neural foraminal narrowing. [facility] Efren Bustamante MD - 05/08/2022 EXAMINATION: [...] spine. Bilateral foraminal narrowing as described above. [employer] Phone: MRI CERVICAL SPINE WO CONTRA STOrdered By: Efren Zepeda on 05-08-2022 [employer] Phone: MRI CERVICAL SPINE WO CONTRA STon 05-07-2022 Radiology Study observation (narrative) [employer] WANG [employer] Work Phone: CT CERVICAL SPINE WO CONTRAS Ton 05-01-2022 Efve-ar-qkmvqyla multilevel cervical degenerative disc disease. No acute fracture or subluxation. Straightening of the normal cervical lordosis which may be related to muscle spasm or position in collar. [facility] EXAMINATION: CT OF THE CERVICAL SPINE [...] of the normal cervical lordosis. DEGENERATIVE CHANGES: Yowv-xu-gfxmgiye multilevel cervical degenerative disc disease which is most pronounced at C6-C7. No significant uncovertebral joint hypertrophic change or bony neural foraminal narrowing. SOFT TISSUES: No paraspinal soft tissue abnormality. The visualized lung apices are grossly clear. [facility] Jose Francois MD - 05/01/2022 EXAMINATION: [...] of the normal cervical lordosis. DEGENERATIVE CHANGES: Ztua-vy-zagkhsbk multilevel cervical degenerative disc disease which is most pronounced at C6-C7. No significant uncovertebral joint hypertrophic change or bony neural foraminal narrowing. SOFT TISSUES: No paraspinal soft tissue abnormality. The visualized lung apices are grossly clear. IMPRESSION: Kecq-fi-anvkpbsc multilevel cervical degenerative disc disease. No acute fracture or subluxation. Straightening of the normal cervical lordosis which may be related to muscle spasm or position in collar. [employer] Phone: [employer] Phone: Radiology Study observation (narrative) [employer] Phone: CT Head WO Contraston 2021 Unremarkable noncont rast head CT study. [facility] EXAMINATION: CT OF THE HEAD [...] tissues. No acute fracture. No scalp hematoma. [facility] Jose Francois MD - 05/01/2022 [...] hematoma. IMPRESSION: Unremarkable noncontrast head CT study. [employer] Phone: Radiology Study observation (narrative) [employer] Phone: CT Head WO ContrastOrdered B y: Jose Francois on 05-01-2022 [employer] Phone: CT LUMBAR SPINE WO CONTRASTo n 05-01-2022 No fracture. At L1-L2, right foraminal/extraforaminal disc protrusion impinges on right L1 nerve root and moderate right neural foraminal narrowing Changes related to instrumented posterior fusion at L5-S1. Changes related to instrumented disc space fusion at L3-L4 and L4-L5 and L5-S1. 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 RECOMMENDATIONS: Unavailable [facility] EXAMINATION: CT OF THE LUMBAR SPINE [...] SOFT TISSUES/RETROPERITONEUM: No paraspinal mass is seen. [facility] Teresa Herzog MD - 05/01/2022 EXAMINATION: [...] prior instrumented fusion at L3-L4. RECOMMENDATIONS: Unavailable [employer] [place] [employer] Phone: Radiology Study observation (narrative) [employer] Group[employer]uan[employer] Phone: CT LUMBAR SPINE WO MALCOLMO rdered By: Teresa Herzog on 05-01-2022 [employer] Phone: CT THORACIC SPINE WO CONTRAS Ton 05-01-[address] acic degenerative disc disease. No acute fracture or subluxation. [facility] EXAMINATION: CT OF THE THORACIC SPINE [...] SOFT TISSUES: No paraspinal soft tissue abnormality. [facility] Jose Francois MD - 05/01/2022 EXAMINATION: [...] disc disease. No acute fracture or subluxation. [employer] Work Phone: [employer] Phone: Radiology Study observation (narrative) K[employer]TIS BOYER [employer] Phone: No Panel Informationon 05-01 Radiology Study observation (narrative) [employer] BOYER [employer] Phone: Radiology Study observation (narrative) [employer] BO[employer] Phone: Radiology Study observation (narrative) [employer] Phone: XR ANKLE RIGHT (MIN 3 VIEWS) on 05-01-2022 No acute findings in the right ankle. [facility] EXAM: XR Right Ankle Complete, 3 or More Views EXAM DATE/TIME: 05/01/2022 7:21 pm CLINICAL HISTORY: ORDERING SYSTEM PROVIDED fall TECHNOLOGIST PROVIDED HISTORY: fall TECHNIQUE: Frontal, lateral and oblique views of the right ankle. COMPARISON: 01/29/2021 FINDINGS: Bones/joints: No acute findings. No acute fracture. No dislocation. Soft tissues: No acute findings. [facility] Hector Odonnell MD - 05/01/2022 EXAM: [...] findings in the right ankle. [employer] MEJIA [employer] Phone: [employer] Phone: XR ELBOW RIGHT (MIN 3 VIEWS) on 05-01-2022 No acute findings in the right elbow. [facility] EXAM: XR Right Elbow Complete, 3 or More Views EXAM DATE/TIME: 05/01/2022 7:21 pm CLINICAL HISTORY: ORDERING SYSTEM PROVIDED Fall TECHNOLOGIST PROVIDED HISTORY: Fall TECHNIQUE: Frontal, lateral and oblique views of the right elbow. COMPARISON: No relevant prior studies available. FINDINGS: Bones/joints: No acute findings. No acute fracture. No dislocation. Soft tissues: No acute findings. [facility] Hector Odonnell MD - 05/01/2022 EXAM: [...] No acute findings in the right elbow. [employer] Phone: XR ELBOW RIGHT (MIN 3 VIEWS) Ordered By: Hector Odonnell on 05-01-2022 [employer] Phone: XR FOOT RIGHT (MIN 3 VIEWS)o n 05-01-2022 No acute findings in the right foot. [facility] EXAM: XR Right Foot Complete, 3 or More Views EXAM DATE/TIME: 05/01/2022 7:21 pm CLINICAL HISTORY: ORDERING SYSTEM PROVIDED fall TECHNOLOGIST PROVIDED HISTORY: fall TECHNIQUE: Frontal, lateral and oblique views of the right foot. COMPARISON: 01/21/2022 FINDINGS: Bones/joints: No acute findings. No acute fracture. No dislocation. Soft tissues: No acute findings. No radiopaque foreign body. [facility] Hector Odonnell MD - 05/01/2022 EXAM: [...] No acute findings in the right foot. [employer] Phone: [employer] Phone: XR KNEE RIGHT (3 VIEWS)on No acute findings in the right knee. [facility] EXAM: XR Right Knee, 3 Views EXAM DATE/TIME: 05/01/2022 7:21 pm CLINICAL HISTORY: ORDERING SYSTEM PROVIDED fall TECHNOLOGIST PROVIDED HISTORY: fall TECHNIQUE: Three views of the right knee. COMPARISON: 01/27/2008 FINDINGS: Bones/joints: No acute findings. No acute fracture. No dislocation. Soft tissues: No acute findings. [facility] Hector Odonnell MD - 05/01/2022 EXAM: XR Right Knee, 3 Views EXAM DATE/TIME: 05/01/2022 7:21 pm CLINICAL HISTORY: ORDERING SYSTEM PROVIDED fall TECHNOLOGIST PROVIDED HISTORY: fall TECHNIQUE: Three views of the right knee. COMPARISON: 01/27/2008 FINDINGS: Bones/joints: No acute findings. No acute fracture. No dislocation. Soft tissues: No acute findings. IMPRESSION: No acute findings in the right knee. [employer] Phone: [employer] Phone: XR RADIUS ULNA RIGHT (2 VIEW S)on 05-01-2022 No acute findings in the right forearm. [facility] EXAM: XR Right Forearm, 2 Views EXAM DATE/TIME: 05/01/2022 7:21 pm CLINICAL HISTORY: ORDERING SYSTEM PROVIDED Fall TECHNOLOGIST PROVIDED HISTORY: Fall TECHNIQUE: Frontal and lateral views of the right forearm. COMPARISON: No relevant prior studies available. FINDINGS: Bones/joints: No acute findings. No acute fracture. No dislocation. Soft tissues: No acute findings. [facility] Hector Odonnell MD - 05/01/2022 [...] No acute findings in the right forearm. [employer] Phone: [employer] Phone: XR TIBIA FIBULA RIGHT (2 VIE WS)on 05-01-2022 No acute findings in the right tibia and fibula or surrounding soft tissues. [facility] EXAM: XR Right Tibia and Fibula, 2 Views EXAM DATE/TIME: 05/01/2022 7:21 pm CLINICAL HISTORY: ORDERING SYSTEM PROVIDED fall TECHNOLOGIST PROVIDED HISTORY: fall TECHNIQUE: Frontal and lateral views of the right tibia and fibula. COMPARISON: 02/21/2016 FINDINGS: Bones/joints: No acute findings. No acute fracture. No dislocation. Soft tissues: No acute findings. No radiopaque foreign body. [facility] Hector Odonnell MD - 05/01/2022 EXAM: [...] tibia and fibula or surrounding soft tissues. [employer] Work Phone: [employer] Work Phone: US ABDOMEN LIMITED Specify o rgan? (hernia)on 02-03-2022 Prior cholecystectom y with otherwise unremarkable exam RECOMMENDATIONS: Unavailable [facility] EXAMINATION: RIGHT UPPER QUADRANT ULTRASOUND 02/03/2022 [...] No evidence of right upper quadrant ascites. [facility] Sal Mena DO - 02/03/2022 EXAMINATION: [...] cholecystectomy with otherwise unremarkable exam RECOMMENDATIONS: Unavailable [employer] Work Phone: Radiology Study observation (narrative) [employer] Phone: US ABDOMEN LIMITED Specify o rgan? (hernia)Ordered By: Sal Mena on 02-03-2022 [employer] Work Phone: COVID-19, Rapidon 12-19-2021 SARS-CoV-2 (COVID-19) RNA FAUSTINA+probe Ql (Unsp spec) Not detected Not Detected [employer] Comment on above: Rapid NAAT: The specimen [...] management decisions. Fact sheet for Healthcare Providers: https://www.fda.gov/media/179786/download Fact sheet for Patients: https://www.fda.gov/media/864989/download Methodology: Isothermal Nucleic Acid Amplification Specimen Description .NASOPHARYNGEAL SWAB coRank Strep Screen Group A Throato n 12-19-2021 S. pyogenes Ag Ql (Throat) Negative NEGATIVE [facility] Comment on above: Rapid Strep A negati ve. A negative Rapid Group A Strep Screen result does not rule out the possibility of Group A Streptococci in the specimen. A Group A Strep DNA test is available upon request. Source .THROAT SWAB [facility] XR CERVICAL SPINE (4-5 VIEWS )on 11-21-2021 1. No acute cervical fracture or listhesis. 2. Mild degenerative disc disease and spondylosis C6-7. 3. If pain persists or worsens, then additional evaluation with CT or MRI may be indicated. Note that CT cervical spine is the study of choice for evaluation of acute trauma. [facility] EXAMINATION: 6 XRAY VIEWS OF THE [...] aligned. No discrete odontoid fracture is evident. [facility] Rickey Kwan MD - 11/21/2021 EXAMINATION: [...] of choice for evaluation of acute trauma. [employer] Phone: [employer] Phone: Radiology Study observation (narrative) Mikaela sanchez Work Phone: XR SHOULDER LEFT (MIN 2 VIEW S)on 11-21-2021 No acute osseous abnormality. Follow-up imaging recommended if pain persists or worsens following conservative management. [facility] EXAMINATION: 3 XRAY VIEWS OF THE LEFT SHOULDER 11/21/2021 7:47 pm COMPARISON: Left shoulder radiograph series 06/06/2021 HISTORY: ORDERING SYSTEM PROVIDED HISTORY: pain TECHNOLOGIST PROVIDED HISTORY: pain FINDINGS: Osseous structures of the left shoulder are intact and aligned normally. No retained radiopaque foreign body. Visualized portions of the upper outer left hemithorax appear unremarkable. [facility] Rickey Kwan MD - 11/21/2021 EXAMINATION: [...] pain persists or worsens following conservative management. [employer] Phone: Radiology Study observation (narrative) Mikaela sanchez Work Phone: XR SHOULDER LEFT (MIN 2 VIEW S)Ordered By: Rickey Kwan on 11-21-2021 [employer] Work Phone: Catheterization and angiogra phy procedure details panelon 11-06-2021 Cardiac Diagnostic Report Demographics Patient ADRIÁN Bee Date of Study 11/06/2021 Name Date of 1975 Gender Female Age 45 year(s) Race Room [id number]^MICHAEL^RONAN Height: 64 inch, 162.56 cm Number Corporate [id number] Weight: 191 pounds, 86.8 kg ID # Patient [id number] BSA: 1.92 m^2 BMI: 32.85 Acct # kg/m^2 MR # [id number] Performing Physician Ronan Rodriguez Referring Physician # [...] Left coronary angiography. Contrast Material: - Isovue 48952 ml Fluoroscopy Time: Diagnostic: 1:09 minutes. Total: [...] sympto (more content not included)... [facility] Ronan Rodriguez MD - 11/06/2021 Cardiac Diagnostic Report Demographics Patient ADRIÁN Bee Date of Study 11/06/2021 Name Date of 1975 Gender Female Age 45 year(s) Race Room [id number]^MICHAEL^RONAN Height: 64 inch, 162.56 cm Number Corporate [id number] Weight: 191 pounds, 86.8 kg ID # Patient [id number] BSA: 1.92 m^2 BMI: 32.85 Acct # kg/m^2 MR # [id number] Performing Physician Ronan Rodriguez Referring Physician # [...] Left coronary angiography. Contrast Material: - Isovue 15481 ml Fluoroscopy Time: Diagnostic: 1:09 minutes. Total: [...] assessed as CCS III according to the [place]i clinical classification. Hemodynamics Condition: Baseline Room Air Estimated: 181.71Heart Rate: 57 bpm Pressure +-----+ --- + !Site !Pressure ! +-----+ (more content not included)... [employer] Phone: [employer] Phone: Catheterization and angiogra phy procedure details panelOrdered By: Unknown Result on 11-06-2021 [facility] Catheterization and angiogra phy procedure details panelOrdered By: Unknown Result on 10-30-2021 [facility] Basic Metab w/rfx MGon 10-23 (cont.) Normal [facility] Comment on above: Result Comment: Aver age GFR for 40-49 years old: 99 mL/min/1.73sq m Chronic Kidney Disease: <60 mL/min/1.73sq m Kidney failure: <15 mL/min/1.73sq m eGFR calculated using average adult body mass. Additional eGFR calculator available at: http://www.intelworks.skedge.me/multiple_crcl_2011.htm Performed By: #### C DP, BMPX #### [facility] [employer] [address] [place] [id number] Edging Catcher: Darius Sarah MD Anion gap [Moles/Vol] 12 mmol/L Normal 9-17 [facility] Comment on above: Performed By: #### C DP, BMPX #### [facility] [address] [place] [phone] Edging Catcher: Darius Sarah MD Calcium [Mass/Vol] 8.9 mg/dL Normal 8.6-10.4 [facility] Comment on above: Performed By: #### C DP, BMPX #### [facility] [address] [place] [address] [phone] Edging Catcher: Darius Sarah MD Chloride [Moles/Vol] 104 mmol/L Normal 98-107 [facility] Comment on above: Performed By: #### C DP, BMPX #### [facility] [employer] [address] [place] [address] [phone] Edging Catcher: Darius Sarah MD CO2 [Moles/Vol] 19 mmol/L Low 20-31 [facility] Comment on above: Performed By: #### C DP, BMPX #### [facility] [address] [place] [address] [phone] Edging Catcher: Darius Sarah MD Creatinine [Mass/Vol] 0.76 mg/dL Normal 0.50-0.90 [facility] Comment on above: Performed By: #### C DP, BMPX #### [facility] [employer] [address] [place] [phone] Edging Catcher: Darius Sarah MD GFR, Amer >60 Normal >60 [facility] Comment on above: Performed By: #### C DP, BMPX #### [facility] [employer] [address] [place] [address] [phone] Edging Catcher: Darius Sarah MD GFR,non Amer >60 Normal >60 [facility] Comment on above: Performed By: #### C DP, BMPX #### [facility] [employer] [address] [place] [phone] Edging Catcher: Darius Sarah MD Glucose [Mass/Vol] 112 mg/dL High 70-99 [facility] Comment on above: Performed By: #### C DP, BMPX #### [facility] [employer] [address] [place] [phone] Edging Catcher: Darius Sarah MD Potassium [Moles/Vol] 3.6 mmol/L Low 3.7-5.3 [facility] Comment on above: Performed By: #### C DP, BMPX #### [facility] [address] [place] [address] [phone] Edging Catcher: Darius Sarah MD Sodium [Moles/Vol] 135 mmol/L Normal 135-144 [facility] Comment on above: Performed By: #### C DP, BMPX #### [facility] [address] [place] [phone] Edging Catcher: Darius Sarah MD Urea nitrogen [Mass/Vol] 12 mg/dL Normal 6-20 [facility] Comment on above: Performed By: #### C DP, BMPX #### [facility] [address] [place] [address] Edging Catcher: Darius Sarah MD Basic Metabolic Panel w/ Ref golden to MGon 10-23-2021 Anion gap [Moles/Vol] 12 mmol/L 9 - 17 mmol/L [facility] Calcium [Mass/Vol] 8.9 mg/dL 8.6 - 10. 4 mg/dL [facility] Chloride [Moles/Vol] 104 mmol/L 98 - 10 7 mmol/L [facility] CO2 [Moles/Vol] 19 mmol/L Low 20 - 31 mmol/L [facility] Creatinine [Mass/Vol] 0.76 mg/dL 0.50 - 0.90 mg/dL [facility] GFR >60 >60 mL/min [facility] [employer] GFR Non- >60 >60 mL/min [facility] GFR/1.73 sq M.predicted MDRD (S/P/Bld) [Vol rate/Area] [facility] Comment on above: Average GFR for 40-4 9 years old: 99 mL/min/1.73sq m Chronic Kidney Disease: <60 mL/min/1.73sq m Kidney failure: <15 mL/min/1.73sq m eGFR calculated using average adult body mass. Additional eGFR calculator available at: http://www.RaveMobileSafety.com/multiple_crcl_2011.htm Glucose [Mass/Vol] 112 mg/dL High 70 - 99 mg/dL [facility] Interpretation and review of laboratory results Abnormal [facility] Potassium [Moles/Vol] 3.6 mmol/L Low 3.7 - 5.3 mmol/L [facility] Sodium [Moles/Vol] 135 mmol/L 135 - 144 mmol/L [facility] Urea nitrogen (BldV) [Mass/Vol] 12 mg/dL 6 - 20 mg/dL [facility] CBC with Auto Differentialon 10-23-2021 Absolute Eos # 0.13 [facility] th Absolute Immature Granulocyte 0.06 [facility] Absolute Lymph # 2.50 [facility] alth Absolute Baca # 0.68 [facility] Basophils (Bld) [#/Vol] 0.07 10*3/uL [facility] Basophils/100 WBC (Bld) 1 % 0 - 2 % M [facility] Eosinophils/100 WBC (Bld) 1 % 1 - 4 % [facility] Hematocrit (Bld) [Volume fraction] 39.3 % 36.3 - 47.1 % [facility] Hemoglobin.gastrointest inal spec 1 Ql (Stl) 13.2 g/dL 11.9 - 15.1 g/dL [facility] Immature granulocytes/100 WBC (Bld) 1 % High 0 [facility] Interpretation and review of laboratory results Abnormal [facility] Lymphocytes/100 WBC (Bld) 24 % 24 - 43 % [facility] MCH (RBC) [Entitic mass] 30.3 pg 25.2 - 33.5 pg [facility] MCHC (RBC) [Mass/Vol] 33.6 g/dL 28.4 - 34.8 g/dL [facility] MCV (RBC) [Entitic vol] 90.1 fL 82.6 - 102.9 fL [facility] Monocytes/100 WBC (Bld) 6 % 3 - 12 % [facility] NRBC Automated 0.0 0.0 per 100 WBC [facility] Platelet distribution width (Bld) [Ratio] 11.9 % 11.8 - 14.4 % [facility] Platelet mean volume (Bld) [Entitic vol] 10.9 fL 8.1 - 13.5 fL [facility] Platelets (Bld) [#/Vol] 272 10*3/uL [facility] RBC (Bld) [#/Vol] 4.36 10*6/uL 3.95 - 5.11 m/uL [facility] Segmented neutrophils/100 WBC (Bld) 67 % High 36 - 65 % [facility] Segs Absolute 7.16 [facility] (Bld[facility] [#/Vol] 10.6 10*3/uL [facility] CBC with Diffon 10-23-2021 Abs. Basophil 0.07 k/uL Normal 0.00-0.20 [facility] Comment on above: Performed By: #### C DP, BMPX #### [facility] [place], [place] [id number] Edging Catcher: Darius Sarah MD Abs.Imm.Granulocyte 0.06 k/uL Normal 0.00-0.30 [facility] Comment on above: Performed By: #### C DP, BMPX #### [address] [address] Edging Catcher: Darius Sarah MD Abs.Neutrophil (Seg) 7.16 k/uL Normal 1.50-8.10 [facility] Comment on above: Performed By: #### C DP, BMPX #### [place] [address] Edging Catcher: Darius Sarah MD Basophils/100 WBC (Bld) 1 % Normal 0-2 [facility] Comment on above: Performed By: #### C DP, BMPX #### [place] [address] Edging Catcher: Darius Sarah MD Eosinophils (Bld) [#/Vol] 0.13 10*3/uL Normal 0.00-0.44 [facility] Comment on above: Performed By: #### C DP, BMPX #### [place] [address] Edging Catcher: Darius Sarah MD Eosinophils/100 WBC (Bld) 1 % Normal 1-4 [facility] Comment on above: Performed By: #### C DP, BMPX #### [place] [address] Edging Catcher: Darius Sarah MD Erythrocyte distribution width (RBC) [Ratio] 11.9 % Normal 11.8-14.4 [facility] Comment on above: Performed By: #### C DP, BMPX #### [place] [address] Edging Catcher: Darius Sarah MD Hematocrit (Bld) [Volume fraction] 39.3 % Normal 36.3-47.1 [facility] Comment on above: Performed By: #### C DP, BMPX #### [address] [address] Edging Catcher: Darius Sarah MD Hemoglobin (Bld) [Mass/Vol] 13.2 g/dL Normal 11.9-15.1 [facility] Comment on above: Performed By: #### C DP, BMPX #### [address] [address] Edging Catcher: Darius Sarah MD Immature granulocytes/100 WBC (Bld) 1 % High 0 [facility] Comment on above: Performed By: #### C DP, BMPX #### [address] [address] Edging Catcher: Darius Sarah MD Lymphocytes (Bld) [#/Vol] 2.50 10*3/uL Normal 1.10-3.70 [facility] Comment on above: Performed By: #### C DP, BMPX #### [address] [address] Edging Catcher: Darius Sarah MD Lymphocytes/100 WBC (Bld) 24 % Normal 24-43 [facility] Comment on above: Performed By: #### C DP, BMPX #### [address] [address] Edging Catcher: Darius Sarah MD MCH (RBC) [Entitic mass] 30.3 pg Normal 25.2-33.5 [facility] Comment on above: Performed By: #### C DP, BMPX #### [address] [address] Edging Catcher: Darius Sarah MD MCHC (RBC) [Mass/Vol] 33.6 g/dL Normal 28.4-34.8 [facility] Comment on above: Performed By: #### C DP, BMPX #### [address] [address] Edging Catcher: Darius Sarah MD MCV (RBC) [Entitic vol] 90.1 fL Normal 82.6-102.9 [facility] Comment on above: Performed By: #### C DP, BMPX #### [address] [address] Edging Catcher: Darius Sarah MD Monocytes (Bld) [#/Vol] 0.68 10*3/uL Normal 0.10-1.20 [facility] Comment on above: Performed By: #### C DP, BMPX #### [address] [address] Edging Catcher: Darius Sarah MD Monocytes/100 WBC (Bld) 6 % Normal 3-12 [facility] Comment on above: Performed By: #### C DP, BMPX #### [place] [address] Edging Catcher: Darius Sarah MD Neutrophil (Seg) 67 % High 36-65 [facility] Comment on above: Performed By: #### C DP, BMPX #### [address] [address] Edging Catcher: Darius Sarah MD NRBC Automated 0.0 per 100 WBC Normal 0.0 [facility] Comment on above: Performed By: #### C DP, BMPX #### [place] [address] Edging Catcher: Darius Sarah MD Platelet mean volume (Bld) [Entitic vol] 10.9 fL Normal 8.1-13.5 [facility] Comment on above: Performed By: #### C DP, BMPX #### [address] [address] Edging Catcher: Darius Sarah MD Platelets (Bld) [#/Vol] 272 10*3/uL Normal 138-453 [facility] Comment on above: Performed By: #### C DP, BMPX #### [address] [place] [address] Edging Catcher: Darius Sarah MD RBC (Bld) [#/Vol] 4.36 10*6/uL Normal 3.95-5.11 [facility] Comment on above: Performed By: #### C DP, BMPX #### [address] [address] Edging Catcher: Darius Sarah MD WBC (Bld) [#/Vol] 10.6 10*3/uL Normal 3.5-11.3 [facility] Comment on above: Performed By: #### C DP, BMPX #### [address] [address] Edging Catcher: Darius Sarah MD Basic Metab w/rfx MGon 10-21 (cont.) Normal [facility] Comment on above: Result Comment: Aver age GFR for 40-49 years old: 99 mL/min/1.73sq m Chronic Kidney Disease: <60 mL/min/1.73sq m Kidney failure: <15 mL/min/1.73sq m eGFR calculated using average adult body mass. Additional eGFR calculator available at: http://www.intelworks.com/multiple_crcl_2011.htm Performed By: #### C DP, BMPX #### [address] [address] Edging Catcher: Darius Sarah MD Anion gap [Moles/Vol] 14 mmol/L Normal 9-17 [facility] Comment on above: Performed By: #### C DP, BMPX #### [address] [address] Edging Catcher: Darius Sarah MD Calcium [Mass/Vol] 9.6 mg/dL Normal 8.6-10.4 [facility] Comment on above: Performed By: #### C DP, BMPX #### [address] [address] Edging Catcher: Darius Sarah MD Chloride [Moles/Vol] 105 mmol/L Normal 98-107 [facility] Comment on above: Performed By: #### C DP, BMPX #### [address] [address] Edging Catcher: Darius Sarah MD CO2 [Moles/Vol] 20 mmol/L Normal 20-31 [facility] Comment on above: Performed By: #### C DP, BMPX #### [address] [address] Edging Catcher: Darius Sarah MD Creatinine [Mass/Vol] 0.75 mg/dL Normal 0.50-0.90 [facility] Comment on above: Performed By: #### C DP, BMPX #### [address] [address] Edging Catcher: Darius Sarah MD GFR, Amer >60 Normal >60 [facility] Comment on above: Performed By: #### C DP, BMPX #### [address] [address] Edging Catcher: Darius Sarah MD GFR,non Amer >60 Normal >60 [facility] Comment on above: Performed By: #### C DP, BMPX #### [address] [address] Edging Catcher: Darius Sarah MD Glucose [Mass/Vol] 114 mg/dL High 70-99 [facility] Comment on above: Performed By: #### C DP, BMPX #### [address] [address] Edging Catcher: Darius Sarah MD Potassium [Moles/Vol] 4.3 mmol/L Normal 3.7-5.3 [facility] Comment on above: Performed By: #### C DP, BMPX #### [facility] [address] [place] [address] Edging Catcher: Darius Sarah MD Sodium [Moles/Vol] 139 mmol/L Normal 135-144 [facility] Comment on above: Performed By: #### C DP, BMPX #### [facility] [address] [place], [place] [phone] Edging Catcher: Darius Sarah MD Urea nitrogen [Mass/Vol] 9 mg/dL Normal 6-20 [facility] Comment on above: Performed By: #### C DP, BMPX #### [facility] [address] [place] [phone] Edging Catcher: Darius Sarah MD Basic Metabolic Panel w/ Ref golden to MGon 10-21-2021 Anion gap [Moles/Vol] 14 mmol/L 9 - 17 mmol/L [facility] Calcium [Mass/Vol] 9.6 mg/dL 8.6 - 10. 4 mg/dL [facility] Chloride [Moles/Vol] 105 mmol/L 98 - 10 7 mmol/L [facility] CO2 [Moles/Vol] 20 mmol/L 20 - 31 mmol/L [facility] Creatinine [Mass/Vol] 0.75 mg/dL 0.50 - 0.90 mg/dL [facility] GFR >60 >60 mL/min [employer] GFR Non- >60 >60 mL/min [facility] GFR/1.73 sq M.predicted MDRD (S/P/Bld) [Vol rate/Area] [facility] Comment on above: Average GFR for 40-4 9 years old: 99 mL/min/1.73sq m Chronic Kidney Disease: <60 mL/min/1.73sq m Kidney failure: <15 mL/min/1.73sq m eGFR calculated using average adult body mass. Additional eGFR calculator available at: http://www.intelworks.skedge.me/multiple_crcl_2011.htm Glucose [Mass/Vol] 114 mg/dL High 70 - 99 mg/dL [facility] Interpretation and review of laboratory results Abnormal [facility] Potassium [Moles/Vol] 4.3 mmol/L 3.7 - 5.3 mmol/L [facility] Sodium [Moles/Vol] 139 mmol/L 135 - 144 mmol/L [facility] Urea nitrogen (BldV) [Mass/Vol] 9 mg/dL 6 - 20 mg/dL [facility] CBC with Auto Differentialon 10-21-2021 Absolute Eos # 0.14 [facility] th Absolute Immature Granulocyte 0.03 [facility] Absolute Lymph # 2.54 [facility] alth Absolute Baca # 0.63 [facility] Basophils (Bld) [#/Vol] 0.08 10*3/uL [facility] Hemoglobin.gastrointest inal spec 1 Ql (Stl) 14.0 g/dL 11.9 - 15.1 g/dL [facility] Interpretation and review of laboratory results Abnormal [facility] NRBC Automated 0.0 0.0 per 100 WBC [facility] Platelet distribution width (Bld) [Ratio] 11.7 % Low 11.8 - 14.4 % [facility] Segmented neutrophils/100 WBC (Bld) 69 % High 36 - 65 % [facility] Segs Absolute 7.78 [facility] CBC with Diffon 10-21-2021 Abs. Basophil 0.08 k/uL Normal 0.00-0.20 [facility] Comment on above: Performed By: #### C GRAEME BMPX #### [facility] [address] [place] [phone] Edging Catcher: Darius Sarah MD Abs.Imm.Granulocyte 0.03 k/uL Normal 0.00-0.30 [facility] Comment on above: Performed By: #### C DP, BMPX #### [facility] [address] [place], [place] [phone] Edging Catcher: Darius Sarah MD Abs.Neutrophil (Seg) 7.78 k/uL Normal 1.50-8.10 [facility] Comment on above: Performed By: #### C DP, BMPX #### [address] [address] Edging Catcher: Darius Sarah MD Eosinophils (Bld) [#/Vol] 0.14 10*3/uL Normal 0.00-0.44 [facility] Comment on above: Performed By: #### C DP, BMPX #### [facility] [address] [place] [address] Edging Catcher: Darius Sarah MD Erythrocyte distribution width (RBC) [Ratio] 11.7 % Low 11.8-14.4 [facility] Comment on above: Performed By: #### C DP, BMPX #### [facility] [address] [place] [address] Edging Catcher: Darius Sarah MD Hemoglobin (Bld) [Mass/Vol] 14.0 g/dL Normal 11.9-15.1 [facility] Comment on above: Performed By: #### C DP, BMPX #### [address] [address] Edging Catcher: Darius Sarah MD Lymphocytes (Bld) [#/Vol] 2.54 10*3/uL Normal 1.10-3.70 [facility] Comment on above: Performed By: #### C DP, BMPX #### [address] [address] Edging Catcher: Darius Sarah MD Monocytes (Bld) [#/Vol] 0.63 10*3/uL Normal 0.10-1.20 [facility] Comment on above: Performed By: #### C DP, BMPX #### [facility] [address] [place] [address] Edging Catcher: Darius Sarah MD Neutrophil (Seg) 69 % High 36-65 [facility] Comment on above: Performed By: #### C DP, BMPX #### [address] [address] Edging Catcher: Darius Sarah MD NRBC Automated 0.0 per 100 WBC Normal 0.0 [facility] Comment on above: Performed By: #### C DP, BMPX #### [address] [address] Edging Catcher: Darius Sarah MD Basophils/100 WBC (Bld) 1 % Normal 0-2 [facility] Comment on above: Performed By: #### C DP, BMPX #### [place] [address] Edging Catcher: Darius Sarah MD Eosinophils/100 WBC (Bld) 1 % Normal 1-4 [facility] Comment on above: Performed By: #### C DP, BMPX #### [place] [address] Edging Catcher: Darius Sarah MD Hematocrit (Bld) [Volume fraction] 42.3 % Normal 36.3-47.1 [facility] Comment on above: Performed By: #### C DP, BMPX #### [address] [address] Edging Catcher: Darius Sarah MD Immature granulocytes/100 WBC (Bld) 0 % Normal 0 [facility] Comment on above: Performed By: #### C DP, BMPX #### [address] [address] Edging Catcher: Darius Sarah MD Lymphocytes/100 WBC (Bld) 23 % Low 24-43 [facility] Comment on above: Performed By: #### C DP, BMPX #### [address] [address] Edging Catcher: Darius Sarah MD MCH (RBC) [Entitic mass] 30.7 pg Normal 25.2-33.5 [facility] Comment on above: Performed By: #### C DP, BMPX #### [address] [address] Edging Catcher: Darius Sarah MD MCHC (RBC) [Mass/Vol] 33.1 g/dL Normal 28.4-34.8 [facility] Comment on above: Performed By: #### C DP, BMPX #### [address] [address] Edging Catcher: Darius Sarah MD MCV (RBC) [Entitic vol] 92.8 fL Normal 82.6-102.9 [facility] Comment on above: Performed By: #### C DP, BMPX #### [address] [address] Edging Catcher: Darius Sarah MD Monocytes/100 WBC (Bld) 6 % Normal 3-12 [facility] Comment on above: Performed By: #### C DP, BMPX #### [address] [address] Edging Catcher: Darius Sarah MD Platelet mean volume (Bld) [Entitic vol] 10.0 fL Normal 8.1-13.5 [facility] Comment on above: Performed By: #### C DP, BMPX #### [address] [address] Edging Catcher: Darius Sarah MD Platelets (Bld) [#/Vol] 343 10*3/uL Normal 138-453 [facility] Comment on above: Performed By: #### C DP, BMPX #### [address] [address] Edging Catcher: Darius Sarah MD RBC (Bld) [#/Vol] 4.56 10*6/uL Normal 3.95-5.11 [facility] Comment on above: Performed By: #### C DP, BMPX #### [address] [address] Edging Catcher: Darius Sarah MD WBC (Bld) [#/Vol] 11.2 10*3/uL Normal 3.5-11.3 [facility] Comment on above: Performed By: #### C DP, BMPX #### [facility] [address] [place] [address] Edging Catcher: Darius Sraah MD CT HEAD WO CONTRASTon 2021 CT [...] Judah Wilhelm MD 10/20/21 Final result Normal [facility] Echo Completeon 10-21-2021 Transthoracic Echocardiography Report (TTE) Patient Name ADRIÁN Date of Study 10/21/2021 MIKE N Date of 1975 Gender Female Age 45 year(s) Race Room Number 0530 Height: 64 inch, 162.56 cm Corporate ID [id number] Weight: 193 pounds, 87.5 kg # Patient Acct [id number] BSA: 1.93 m^2 BMI: 33.13 # kg/m^2 MR # [id number] Business Intelligence Architect Karolina Shea Interpreting Physician Vicenta Thacker Fellow Referring Nurse Practitioner Interpreting Referring Physician Zaki Mcbride DO Fellow Type of Study TTE procedure:2D Echocardiogram, Color Doppler, Bubble Study, Limited Echo. Procedure Date Date: 10/21/2021 Start: 10:54 AM Study Location: [facility] Technical Quality: Adequate visualization Indications:CVA. History / [...] insufficiency. Pericardial Effusion No pericardial effusion seen. [facility] Vicenta Thacker MD - 10/21/2021 Transthoracic Echocardiography Report (TTE) Patient Name ADRIÁN Date of Study 10/21/2021 MIKE N Date of 1975 Gender Female Age 45 year(s) Race Room Number 0530 Height: 64 inch, 162.56 cm Corporate ID [id number] Weight: 193 pounds, 87.5 kg # Patient Acct [id number] BSA: 1.93 m^2 BMI: 33.13 # kg/m^2 MR # [id number] Business Intelligence Architect Karolina Shea Interpreting Physician Vicenta Thacker Fellow Referring Nurse Practitioner Interpreting Referring Physician Zaki Mcbride DO Fellow Type of Study TTE procedure:2D Echocardiogram, Color Doppler, Bubble Study, Limited Echo. Procedure Date Date: 10/21/2021 Start: 10:54 AM Study Location: [facility] Technical Quality: Adequate visualization Indications:CVA. History / [...] IVC not well visualized Signature --- - --- - --- - [...] insufficiency. Pericardial Effusion No pericardial effusion seen. [employer] Phone: [facility] [employer] Work Phone: Basic Metab w/rfx MGon 10-20 Anion gap [Moles/Vol] 11 mmol/L Normal 9-17 [facility] Comment on above: Performed By: #### C BC, TROPI, BMPX, GLYHGB, LIPR ####[facility] [address] [place], [place] [phone] Director: Darius Sarah MD Calcium [Mass/Vol] 8.9 mg/dL Normal 8.6-10.4 [facility] Comment on above: Performed By: #### C BC, TROPI, BMPX, GLYHGB, LIPR ####[facility] [address] [place], [place] [phone] Director: Darius Sarah MD Chloride [Moles/Vol] 103 mmol/L Normal 98-107 [facility] Comment on above: Performed By: #### C BC, TROPI, BMPX, GLYHGB, LIPR ####[facility] [address] [place], [place] [phone] Director: Darius Sarah MD CO2 [Moles/Vol] 20 mmol/L Normal 20-31 [facility] Comment on above: Performed By: #### C BC, TROPI, BMPX, GLYHGB, LIPR ####[facility] [address] [place], [place] [phone] Director: Darius Sarah MD Creatinine [Mass/Vol] 0.76 mg/dL Normal 0.50-0.90 [facility] Comment on above: Performed By: #### C BC, TROPI, BMPX, GLYHGB, LIPR ####[facility] [address] [place], [place] [phone] Director: Darius Sarah MD GFR, Amer >60 Normal >60 [facility] Comment on above: Performed By: #### C BC, TROPI, BMPX, GLYHGB, LIPR ####[facility] [address] [place], [place] [phone] Director: Darius Sarah MD GFR,non Amer >60 Normal >60 [facility] Comment on above: Performed By: #### C BC, TROPI, BMPX, GLYHGB, LIPR ####[facility] [address] [place], [place] [phone] Director: Darius Sarah MD Glucose [Mass/Vol] 110 mg/dL High 70-99 [facility] Comment on above: Performed By: #### C BC, TROPI, BMPX, GLYHGB, LIPR ####[facility] [address] [place], [place] [phone] Director: Darius Sarah MD Potassium [Moles/Vol] 3.6 mmol/L Low 3.7-5.3 [facility] Comment on above: Performed By: #### C BC, TROPI, BMPX, GLYHGB, LIPR ####[facility] [address] [place], [place] [phone] Director: Darius Sarah MD Sodium [Moles/Vol] 134 mmol/L Low 135-144 [facility] Comment on above: Performed By: #### C BC, TROPI, BMPX, GLYHGB, LIPR ####[facility] [address] [place], [place] [phone] Director: Darius Sarah MD Urea nitrogen [Mass/Vol] 12 mg/dL Normal 6-20 [facility] Comment on above: Performed By: #### C BC, TROPI, BMPX, GLYHGB, LIPR ####[facility] [address] [place], [place] [phone] Director: Darius Sarah MD (cont.) [facility] Comment on above: Result Comment: Aver age GFR for 40-49 years old: 99 mL/min/1.73sq m Chronic Kidney Disease: <60 mL/min/1.73sq m Kidney failure: <15 mL/min/1.73sq m eGFR calculated using average adult body mass. Additional eGFR calculator available at: http://www.RaveMobileSafety.com/Sport Street_crcl_2012.htm Performed By: #### C BC, TROPI, BMPX, GLYHGB, LIPR ####[facility] [address] [place] [address] [facility] Director: Darius Sarah MD Basic Metabolic Panel w/ Ref golden to on 10-20-2021 Anion gap [Moles/Vol] 11 mmol/L 9 - 17 mmol/L [facility] Calcium [Mass/Vol] 8.9 mg/dL 8.6 - 10. 4 mg/dL [facility] Chloride [Moles/Vol] 103 mmol/L 98 - 10 7 mmol/L [facility] CO2 [Moles/Vol] 20 mmol/L 20 - 31 mmol/L [facility] Creatinine [Mass/Vol] 0.76 mg/dL 0.50 - 0.90 mg/dL [facility] GFR >60 >60 mL/min [employer] GFR Non- >60 >60 mL/min [facility] GFR/1.73 sq M.predicted MDRD (S/P/Bld) [Vol rate/Area] [facility] Comment on above: Average GFR for 40-4 9 years old: 99 mL/min/1.73sq m Chronic Kidney Disease: <60 mL/min/1.73sq m Kidney failure: <15 mL/min/1.73sq m eGFR calculated using average adult body mass. Additional eGFR calculator available at: http://www.RaveMobileSafety.com/Sport Street_crcl_2012.htm Glucose [Mass/Vol] 110 mg/dL High 70 - 99 mg/dL [facility] Potassium [Moles/Vol] 3.6 mmol/L Low 3.7 - 5.3 mmol/L [facility] Sodium [Moles/Vol] 134 mmol/L Low 135 - 144 mmol/L [facility] Urea nitrogen (BldV) [Mass/Vol] 12 mg/dL 6 - 20 mg/dL [facility] CBCon 10-20-2021 Erythrocyte distribution width (RBC) [Ratio] 11.7 % Low 11.8-14.4 [facility] Comment on above: Performed By: #### C BC, TROPI, BMPX, GLYHGB, LIPR #### [facility] [address] [place] [address] Edging Catcher: Darius Sarah MD Hematocrit (Bld) [Volume fraction] 34.7 % Low 36.3-47.1 [facility] Comment on above: Performed By: #### C BC, TROPI, BMPX, GLYHGB, LIPR #### [facility] [address] [place] [address] Edging Catcher: Darius Sarah MD Hemoglobin (Bld) [Mass/Vol] 11.7 g/dL Low 11.9-15.1 [facility] Comment on above: Performed By: #### C BC, TROPI, BMPX, GLYHGB, LIPR #### [address] [address] Edging Catcher: Darius Sarah MD MCH (RBC) [Entitic mass] 30.1 pg Normal 25.2-33.5 [facility] Comment on above: Performed By: #### C BC, TROPI, BMPX, GLYHGB, LIPR #### [facility] [address] [place] [address] Edging Catcher: Darius Sarah MD MCHC (RBC) [Mass/Vol] 33.7 g/dL Normal 28.4-34.8 [facility] Comment on above: Performed By: #### C BC, TROPI, BMPX, GLYHGB, LIPR #### [facility] [address] [place] [address] Edging Catcher: Darius Sarah MD MCV (RBC) [Entitic vol] 89.2 fL Normal 82.6-102.9 [facility] Comment on above: Performed By: #### C BC, TROPI, BMPX, GLYHGB, LIPR #### [address] [address] Edging Catcher: Darius Sarah MD NRBC Automated 0.0 per 100 WBC Normal 0.0 [facility] Comment on above: Performed By: #### C BC, TROPI, BMPX, GLYHGB, LIPR #### [address] [address] Edging Catcher: Darius Sarah MD Platelet mean volume (Bld) [Entitic vol] 10.1 fL Normal 8.1-13.5 [facility] Comment on above: Performed By: #### C BC, TROPI, BMPX, GLYHGB, LIPR #### [address] [address] Edging Catcher: Darius Sarah MD Platelets (Bld) [#/Vol] 295 10*3/uL Normal 138-453 [facility] Comment on above: Performed By: #### C BC, TROPI, BMPX, GLYHGB, LIPR #### [address] [address] Edging Catcher: Darius Sarah MD RBC (Bld) [#/Vol] 3.89 10*6/uL Low 3.95-5.11 [facility] Comment on above: Performed By: #### C BC, TROPI, BMPX, GLYHGB, LIPR #### [address] [address] Edging Catcher: Darius Sarah MD WBC (Bld) [#/Vol] 10.5 10*3/uL Normal 3.5-11.3 [facility] Comment on above: Performed By: #### C BC, TROPI, BMPX, GLYHGB, LIPR #### [facility] [address] [place] [address] Edging Catcher: Darius Sarah MD Hematocrit (Bld) [Volume fraction] 34.7 % Low 36.3 - 47.1 % [facility] Hemoglobin.gastrointest inal spec 1 Ql (Stl) 11.7 g/dL Low 11.9 - 15.1 g/dL [facility] Interpretation and review of laboratory results Abnormal [facility] MCH (RBC) [Entitic mass] 30.1 pg 25.2 - 33.5 pg [facility] MCHC (RBC) [Mass/Vol] 33.7 g/dL 28.4 - 34.8 g/dL [facility] MCV (RBC) [Entitic vol] 89.2 fL 82.6 - 102.9 fL [facility] NRBC Automated 0.0 0.0 per 100 WBC [facility] Platelet distribution width (Bld) [Ratio] 11.7 % Low 11.8 - 14.4 % [facility] Platelet mean volume (Bld) [Entitic vol] 10.1 fL 8.1 - 13.5 fL [facility] Platelets (Bld) [#/Vol] 295 10*3/uL [facility] RBC (Bld) [#/Vol] 3.89 10*6/uL Low 3.95 - 5.11 m/uL [facility] WBC (Bld) [#/Vol] 10.5 10*3/uL [facility] COVID-19, Rapidon 10-20-2021 SARS-CoV-2 (COVID-19) RNA FAUSTINA+probe Ql (Unsp spec) Not detected Not Detected [facility] Comment on above: Rapid NAAT: The specimen [...] management decisions. Fact sheet for Healthcare Providers: https://www.fda.gov/media/388355/download Fact sheet for Patients: https://www.fda.gov/media/443336/download Methodology: Isothermal Nucleic Acid Amplification Specimen Description .NASOPHARYNGEAL SWAB [facility] CT head without contraston 0 10-20-2021 EXAMINATION: [...] of the visualized skull or soft tissues. [facility] Judah Wilhelm MD - 10/20/2021 [...] artifact. 2. No convincing acute intracranial abnormality. [employer] Work Phone: Radiology Study observation (narrative) [employer] Work Phone: CT head without contrastOrde red By: Judah Wilhelm on 10-20-2021 [employer] Work Phone: EKG 12 LeadOrdered By: Vicenta Thacker on 10-20-2021 Atrial Rate 63 BPM [employer] Work Phone: P Ravenden 53 degrees [employer] Work Phone: P-R Interval 172 ms [employer] Work Phone: Q-T Interval 426 ms [employer] Work Phone: QRS Duration 88 ms [employer] Work Phone: QTc Calculation (Bazett) 435 ms [employer] Work Phone: R Ravenden -7 degrees [employer] Work Phone: T Ravenden 36 degrees [employer] Work Phone: Ventricular Rate 63 BPM [employer] [facility] Work Phone: [employer] Work Phone: EKG 12 Leadon 10-20-2021 Normal sinus rhythm Normal ECG When compared with ECG of 09-OCT-2019 23:08, No significant change was found [facility] Vicenta Lorenzo MD - 10/20/2021 Normal sinus rhythm Normal ECG When compared with ECG of 09-OCT-2019 23:08, No significant change was found [facility] Work Phone: Hemoglobin A1Con 10-20-2021 Glucose [Mass/Vol] 117 mg/dL Normal [facility] Comment on above: Result Comment: The ADA and AACC recommend providing the estimated average glucose result to permit better patient understanding of their HBA1c result. Performed By: #### C BC, TROPI, BMPX, GLYHGB, LIPR ####[facility] [id number] [place] [address] Lab Director: Darius Sarah MD HbA1c (Bld) [Mass fraction] 5.7 % Normal 4.0-6.0 [facility] Comment on above: Performed By: #### C BC, TROPI, BMPX, GLYHGB, LIPR ####[facility] [id number] [place] [address] lab Director: Darius Sarah MD Hemoglobin A1con 10-20-2021 Glucose [Mass/Vol] 117 mg/dL [facility] Comment on above: The ADA and AACC rec ommend providing the estimated average glucose result to permit better patient understanding of their HBA1c result. HbA1c (Bld) [Mass fraction] 5.7 % 4.0 - 6.0 % [facility] Lipid Profileon 10-20-2021 Cholesterol [Mass/Vol] 151 mg/dL Normal <200 [facility] Comment on above: Result Comment: Cholesterol Guidelines: <200 Desirable 200-240 Borderline >240 Undesirable Performed By: #### C BC, TROPI, BMPX, GLYHGB, LIPR ####[facility] [address] [place] [address] Lab Director: Darius Sarah MD Cholesterol in HDL [Mass/Vol] 30 mg/dL Low >40 [facility] Comment on above: Result Comment: HDL Guidelines: <40 Undesirable 40-59 Borderline >59 Desirable Performed By: #### C BC, TROPI, BMPX, GLYHGB, LIPR ####[facility] [address] [place] [address] Lab Director: Darius Sarah MD Cholesterol in LDL [Mass/Vol] 80 mg/dL Normal 0-130 [facility] Comment on above: Result Comment: LDL Guidelines: <100 Desirable 100-129 Near to/above Desirable 130-159 Borderline >159 Undesirable Direct (measured) LDL and calculated LDL are not interchangeable tests. Performed By: #### C BC, TROPI, BMPX, GLYHGB, LIPR ####[facility] [address] [place], [place] [id number] Lab Director: Darius Sarah MD Cholesterol.total/Audelia sterol in HDL [Mass ratio] 5.0 {ratio} High <5 [facility] Comment on above: Performed By: #### C BC, TROPI, BMPX, GLYHGB, LIPR ####[facility] [address] [place] [address] Lab Director: Darius Sarah MD Triglyceride [Mass/Vol] 204 mg/dL High <150 [facility] Comment on above: Result Comment: Triglyceride Guidelines: <150 Desirable 150-199 Borderline 200-499 High >499 Very high Based on AHA Guidelines for fasting triglyceride, April 2012. Performed By: #### C BC, TROPI, BMPX, GLYHGB, LIPR ####[facility] [address] [place] [address] Lab Director: Darius Sarah MD Lipid panel - fastingon 04-0 Cholesterol [Mass/Vol] 151 mg/dL <200 [facility] Comment on above: Cholesterol Guidelines: <200 Desirable 200-240 Borderline >240 Undesirable Cholesterol in HDL [Mass/Vol] 30 mg/dL Low >40 [facility] Comment on above: HDL Guidelines: <40 Undesirable 40-59 Borderline >59 Desirable Cholesterol in LDL [Mass/Vol] 80 mg/dL 0 - 130 mg/dL [facility] Comment on above: LDL Guidelines: <100 Desirable 100-129 Near to/above Desirable 130-159 Borderline >159 Undesirable Direct (measured) LDL and calculated LDL are not interchangeable tests. Cholesterol.total/Audelia sterol in HDL [Mass ratio] 5 {ratio} High <5 [facility] Triglyceride [Mass/Vol] 204 mg/dL High <150 M [facility] Comment on above: Triglyceride Guidelines: <150 Desirable [...] mass present. The proximal portions of the benton of Helms demonstrate normal flow voids. ORBITS: The visualized portion of the orbits demonstrate no acute abnormality. SINUSES: The visualized paranasal sinuses and mastoid air cells demonstrate no acute abnormality. BONES/SOFT TISSUES: Bone marrow signal intensity is normal. IMPRESSION: Normal MRI of the brain. Interpreted by: Ashish Ogden MD Signed by: Ashish Ogden MD 10/20/21 Final result Normal [facility] MRI brain without contraston 10-20-2021 Normal MRI [...] mass present. The proximal portions of the benton of Helms demonstrate normal flow voids. ORBITS: The visualized portion of the orbits demonstrate no acute abnormality. SINUSES: The visualized paranasal sinuses and mastoid air cells demonstrate no acute abnormality. BONES/SOFT TISSUES: Bone marrow signal intensity is normal. [facility] Ashish Hoyos MD - 10/20/2021 EXAMINATION: MRI [...] mass present. The proximal portions of the benton of Helms demonstrate normal flow voids. ORBITS: The visualized portion of the orbits demonstrate no acute abnormality. SINUSES: The visualized paranasal sinuses and mastoid air cells demonstrate no acute abnormality. BONES/SOFT TISSUES: Bone marrow signal intensity is normal. IMPRESSION: Normal MRI of the brain. [employer] Work Phone: Radiology Study observation (narrative) [facility] Work Phone: MRI brain without contrastOr dered By: Ashish Ogden on 10-20-2021 [facility] Work Phone: No Panel Informationon 10-20 Interpretation and review of laboratory results Abnormal [facility] [id number] 10-20-2021 SARS-CoV-2 (COVID-19) RNA FAUSTINA+probe Ql (Unsp spec) Not detected Normal NOTDET [facility] Comment on above: Result Comment: Rapid NAAT: [...] management decisions. Fact sheet for Healthcare Providers: https://www.fda.gov/media/404761/download Fact sheet for Patients: https://www.fda.gov/media/924896/download Methodology: Isothermal Nucleic Acid Amplification Performed By: #### C OVRB #### [employer] [address] [place] [id number] Edging Catcher: Darius Sarah MD Troponinon 10-20-2021 Troponin, High Sens <6 Normal 0-14 [facility] Comment on above: Result Comment: High Sensitivity Troponin values cannot be compared with other Troponin methodologies. Patients with high levels of Biotin oral intake (i.e >5mg/day) may have falsely decreased Troponin levels. Samples collected within 8 hours of biotin intake may require additional information for diagnosis. Performed By: #### C BC, TROPI, BMPX, GLYHGB, LIPR #### [employer] [address] [place] [id number] Edging Catcher: Darius Sarah MD Troponin, High Sensitivity <6 0 - 14 ng/L [facility] Comment on above: High Sensitivity Troponin values cannot be compared with other Troponin methodologies. Patients with high levels of Biotin oral intake (i.e >5mg/day) may have falsely decreased Troponin levels. Samples collected within 8 hours of biotin intake may require additional information for diagnosis. [facility] APTTon 10-19-2021 aPTT Coag (Bld) [Time] 27.0 s [facility] Comment on above: IV Heparin Therapy Range: 62.0-94.0 [facility] CBC with Auto Differentialon 10-19-2021 Absolute Eos # 0.09 [facility] th Absolute Immature Granulocyte <0.03 [facility] Absolute Lymph # 2.20 [facility] alth Absolute Baca # 0.57 [facility] lth Basophils (Bld) [#/Vol] 0.06 10*3/uL [facility] Basophils/100 WBC (Bld) 1 % 0 - 2 % [facility] Eosinophils/100 WBC (Bld) 1 % 1 - 4 % [facility] Hematocrit (Bld) [Volume fraction] 38.2 % 36.3 - 47.1 % [facility] Hemoglobin.gastrointest inal spec 1 Ql (Stl) 12.9 g/dL 11.9 - 15.1 g/dL [facility] Immature granulocytes/100 WBC (Bld) 0 % 0 [facility] Interpretation and review of laboratory results Abnormal [facility] Lymphocytes/100 WBC (Bld) 23 % Low 24 - 43 % [facility] MCH (RBC) [Entitic mass] 30.4 pg 25.2 - 33.5 pg [facility] MCHC (RBC) [Mass/Vol] 33.8 g/dL 28.4 - 34.8 g/dL [facility] MCV (RBC) [Entitic vol] 89.9 fL 82.6 - 102.9 fL [facility] Monocytes/100 WBC (Bld) 6 % 3 - 12 % [facility] NRBC Automated 0.0 0.0 per 100 WBC [facility] Platelet distribution width (Bld) [Ratio] 11.9 % 11.8 - 14.4 % [facility] Platelet mean volume (Bld) [Entitic vol] 10.1 fL 8.1 - 13.5 fL [facility] Platelets (Bld) [#/Vol] 317 10*3/uL [facility] RBC (Bld) [#/Vol] 4.25 10*6/uL 3.95 - 5.11 m/uL [facility] Segmented neutrophils/100 WBC (Bld) 69 % High 36 - 65 % [facility] Segs Absolute 6.60 [facility] WBC (Bld) [#/Vol] 9.5 10*3/uL [facility] CT Head WO Contraston 2021 Radiology Study observation (narrative) [employer] [facility] Work Phone: CTA HEAD NECK W CONTRASTon 0 10-19-2021 Radiology Study observation (narrative) [employer] [facility] Work Phone: Comprehensive Metabolic Pane l w/ Reflex to MGon 10-19-2021 Albumin [Mass/Vol] 4.3 g/dL 3.5 - 5.2 g/dL [facility] Albumin/Globulin [Mass ratio] 1.4 {ratio} [facility] ALP (Bld) [Catalytic activity/Vol] 95 U/L 35 - 104 U/L [facility] ALT [Catalytic activity/Vol] 28 U/L 5 - 33 U/L [facility] Anion gap [Moles/Vol] 9 mmol/L 9 - 17 mmol/L [facility] AST [Catalytic activity/Vol] 23 U/L <32 [facility] Bilirubin [Mass/Vol] 0.24 mg/dL Low 0.3 - 1 .2 mg/dL [facility] Calcium [Mass/Vol] 9.3 mg/dL 8.6 - 10. 4 mg/dL [facility] Chloride [Moles/Vol] 102 mmol/L 98 - 10 7 mmol/L [facility] CO2 [Moles/Vol] 25 mmol/L 20 - 31 mmol/L [facility] Creatinine [Mass/Vol] 0.75 mg/dL 0.50 - 0.90 mg/dL [facility] Free PSA/Total PSA [Mass fraction] 7.3 g/dL 6.4 - 8.3 g/dL [facility] GFR >60 >60 mL/min [facility] GFR Non- >60 >60 mL/min [facility] Glucose [Mass/Vol] 103 mg/dL High 70 - 99 mg/dL [facility] Interpretation and review of laboratory results Abnormal [facility] Potassium [Moles/Vol] 4.3 mmol/L 3.7 - 5.3 mmol/L [facility] Sodium [Moles/Vol] 136 mmol/L 135 - 144 mmol/L [facility] Urea nitrogen (BldV) [Mass/Vol] 10 mg/dL 6 - 20 mg/dL [facility] Urea nitrogen/Creatinine (Bld) [Mass ratio] 13 [facility] Glucose, Whole Bloodon 10-19 Glucose [Mass/Vol] 105 mg/dL High 74 - 100 mg/dL [facility] Interpretation and review of laboratory results Abnormal [facility] Laboratory - Chemistry and C hemistry - challengeon 10-19-2021 GFR/1.73 sq M.predicted MDRD (S/P/Bld) [Vol rate/Area] [facility] Comment on above: Average GFR for 40-4 9 years old: 99 mL/min/1.73sq m Chronic Kidney Disease: <60 mL/min/1.73sq m Kidney failure: <15 mL/min/1.73sq m eGFR calculated using average adult body mass. Additional eGFR calculator available at: http://www.[employer]ave[employer].com/multiple_crcl_2012.htm Stage 1: Some kidney damage normal GFR [...] No aneurysm. CAROTID STENOSIS REFERENCE: The [place] Symptomatic Carotid Endarterectomy Trial (NASCET) is a [...] venous sinus thrombosis on this non-dedicated study. [facility] Teresa Johnson MD - 10/19/2021 EXAMINATION: CT [...] No aneurysm. CAROTID STENOSIS REFERENCE: The [place] Symptomatic Carotid Endarterectomy Trial (NASCET) is a method of quantifying internal carotid artery stenosis. Distal internal carotid artery diameter as the denominator for stenosis measurement: MILD = <50% stenosis. MODERATE = 50-69% stenosis. SEVERE = 70-89% stenosis. HAIRLINE/CRITICAL = 90-99% stenosis. OCCLUDED = 100% stenosis. [employer] Phone: No Panel InformationOrdered By: Teresa Herzog on 10-19-2021 [employer] Phone: Protime-INRon 10-19-2021 INR Coag (Bld) [Relative time] 1.0 {INR} [employer] Comment on above: Non-therapeutic Range: INR = 0.9-1.2 Therapeutic Range: Moderate Anticoagulant Intensity: INR = 2.0-3.0 High Anticoagulant Intensity: INR = 2.5-3.5 PT Coag (PPP) [Time] 13.3 s Aubrey Troponinon 10-19-2021 Troponin, High Sensitivity <6 0 - 14 ng/L [employer] Comment on above: High Sensitivity Troponin values cannot be compared with other Troponin methodologies. Patients with high levels of Biotin oral intake (i.e >5mg/day) may have falsely decreased Troponin levels. Samples collected within 8 hours of biotin intake may require additional information for diagnosis. [employer] XR CHEST PORTABLEon 10-20-19 22 1. No acute cardiopulmonary abnormality. [facility] EXAMINATION: ONE XRAY VIEW OF THE CHEST 10/19/2021 8:40 pm COMPARISON: None. HISTORY: ORDERING SYSTEM PROVIDED HISTORY: stroke symptoms TECHNOLOGIST PROVIDED HISTORY: stroke symptoms FINDINGS: The lungs are clear, no effusion. No pneumothorax. Heart is normal size. Mediastinal and hilar contours are within normal limits. Bony thorax no acute abnormality. [facility] Antony Nichols MD - 10/19/2021 EXAMINATION: ONE XRAY VIEW OF THE CHEST 10/19/2021 8:40 pm COMPARISON: None. HISTORY: ORDERING SYSTEM PROVIDED HISTORY: stroke symptoms TECHNOLOGIST PROVIDED HISTORY: stroke symptoms FINDINGS: The lungs are clear, no effusion. No pneumothorax. Heart is normal size. Mediastinal and hilar contours are within normal limits. Bony thorax no acute abnormality. IMPRESSION: 1. No acute cardiopulmonary abnormality. [employer] Work Phone: Radiology Study observation (narrative) [employer] Phone: XR CHEST PORTABLEOrdered By: Antony Nichols on 10-19-2021 [employer] Work Phone: [id number] COMPLETEon [facility] Transthoracic Echocardiography Report (TTE) Patient Name ADRIÁN Date of Study 10/07/2021 MIEK N Date of 1975 Gender Female Age 45 year(s) Race Room Number 0328 Height: 64 inch, 162.56 cm Corporate ID [id number] Weight: 190 pounds, 86.2 kg # Patient Acct [id number] BSA: 1.91 m^2 BMI: 32.61 # kg/m^2 MR # [id number] Business Intelligence Architect Libertad Prieto Interpreting Physician Nta Mora Fellow Referring Nurse Practitioner Interpreting Referring Physician Rl Blanc Fellow Type of Study TTE procedure:2D Echocardiogram, M-Mode, Doppler, Color Doppler. Procedure Date Date: 10/07/2021 Start: 09:52 AM Study Location: [facility] Indications:Chest pain. History / Tech. Comments: [...] velocity:0.15 m/s Lateral Wall E/E':3.4 MHPN [facility] Nat Mora MD - 10/07/2021 [facility] Transthoracic Echocardiography Report (TTE) Patient Name ADRIÁN Date of Study 10/07/2021 MIKE N Date of 1975 Gender Female Age 45 year(s) Race Room Number 0328 Height: 64 inch, 162.56 cm Corporate ID [id number] Weight: 190 pounds, 86.2 kg # Patient Acct [id number] BSA: 1.91 m^2 BMI: 32.61 # kg/m^2 MR # [id number] Business Intelligence Architect Libertad Prieto Interpreting Physician Nat Mora Referring Nurse Practitioner Interpreting Referring Physician Rl Blanc Fellow Type of Study TTE procedure:2D Echocardiogram, M-Mode, Doppler, Color Doppler. Procedure Date Date: 10/07/2021 Start: 09:52 AM Study Location: [facility] Indications:Chest pain. History / Tech. Comments: [...] Wall E' velocity:0.15 m/s Lateral Wall E/E':3.4 [employer] Phone: [employer] Phone: EKG 12 LeadOrdered By: Aidan Richter on 10-07-2021 Atrial Rate 86 BPM [employer] Phone: P Ravenden 70 degrees [employer] Phone: P-R Interval 164 ms [employer] Phone: Q-T Interval 378 ms [employer] Phone: QRS Duration 80 ms [employer] Phone: QTc Calculation (Bazett) 452 ms [employer] Phone: R Ravenden -10 degrees [facility] Work Phone: T Ravenden 59 degrees [facility] Work Phone: Ventricular Rate 86 BPM [employer] [facility] Work Phone: [facility] Work Phone: EKG 12 Leadon 10-07-2021 Normal sinus rhythm Possible Left atrial enlargement Nonspecific ST abnormality Abnormal ECG When compared with ECG of 08-JUL-2021 14:55, Vent. rate has increased BY 29 BPM Confirmed by GILMAR RICHTER ([id number]) on 10/07/2021 12:44:46 PM [facility] RADIOLOGY Gilmar Richter MD - 10/07/2021 Normal sinus rhythm Possible Left atrial enlargement Nonspecific ST abnormality Abnormal ECG When compared with ECG of 08-JUL-2021 14:55, Vent. rate has increased BY 29 BPM Confirmed by GILMAR RICHTER ([id number]) on 10/07/2021 12:44:46 PM [facility] [facility] Work Phone: EKG 12 leadon 10-07-2021 Atrial Rate 72 BPM [employer] Work Phone: P Ravenden 53 degrees [employer] Work Phone: P-R Interval 172 ms [employer] [facility] Work Phone: Q-T Interval 456 ms [employer] [facility] Work Phone: QRS Duration 88 ms [employer] Work Phone: QTc Calculation (Bazett) 499 ms [employer] Work Phone: R Ravenden 3 degrees [facility] Work Phone: T Ravenden 39 degrees [employer] Work Phone: Ventricular Rate 72 BPM [employer] [facility] Work Phone: Normal sinus rhythm Nonspecific T wave abnormality Abnormal ECG When compared with ECG of 06-OCT-2021 19:51, (unconfirmed) Nonspecific T wave abnormality now evident in Inferior leads Nonspecific T wave abnormality, worse in Lateral leads Confirmed by GILMAR RICHTER ([id number]) on 10/07/2021 12:44:30 PM [facility] RADIOLOGY Gilmar Richter MD - 10/07/2021 Normal sinus rhythm Nonspecific T wave abnormality Abnormal ECG When compared with ECG of 06-OCT-2021 19:51, (unconfirmed) Nonspecific T wave abnormality now evident in Inferior leads Nonspecific T wave abnormality, worse in Lateral leads Confirmed by GILMAR RICHTER ([id number]) on 10/07/2021 12:44:30 PM [facility] Work Phone: [facility] [employer] Phone: EKG Rhythm Stripon 2 [facility] STRESS - MYOVIEWon 2 Nat Mora MD - 10/07/2021 1:31 PM EDT [address] [address] CARDIAC STRESS TEST PATIENT NAME: MIKE SHARIF : 1975 MED REC NO: [id number] ROOM: 0328 ACCOUNT NO: [id number] ADMIT DATE: 10/06/2021 PROVIDER: Nat Mora MD CARDIOVASCULAR DIAGNOSTIC DEPARTMENT DATE OF STUDY: 10/06/2021 ORDERING PROVIDER: Rl Blanc MD PRIMARY CARE PROVIDER: Ena Fung APRN-TIMBER BUYER INTERPRETING PHYSICIAN: Nat Mora MD PHARMACOLOGIC MYOCARDIAL [...] JIMMY/CANDE_FRANCINE Doc#: Unknown CC: Ena Blanc [facility]: [facility] Work Phone: Troponinon 10-07-2021 Troponin, High Sensitivity 6 ng/L 0 - 14 ng/L [facility] Comment on above: High Sensitivity Troponin values cannot be compared with other Troponin methodologies. Patients with high levels of Biotin oral intake (i.e >5mg/day) may have falsely decreased Troponin levels. Samples collected within 8 hours of biotin intake may require additional information for diagnosis. [facility] [employer] Basic Metabolic Panelon 09-17 Anion gap [Moles/Vol] 12 mmol/L 9 - 17 mmol/L [facility] Calcium [Mass/Vol] 9.2 mg/dL 8.6 - 10. 4 mg/dL [facility] Chloride [Moles/Vol] 103 mmol/L 98 - 10 7 mmol/L [facility] CO2 [Moles/Vol] 22 mmol/L 20 - 31 mmol/L [facility] Creatinine [Mass/Vol] 0.61 mg/dL 0.50 - 0.90 mg/dL [facility] GFR >60 >60 mL/min [facility] GFR Non- >60 >60 mL/min [facility] Glucose [Mass/Vol] 113 mg/dL High 70 - 99 mg/dL [facility] Interpretation and review of laboratory results Abnormal [facility] Potassium [Moles/Vol] 3.4 mmol/L Low 3.7 - 5.3 mmol/L [facility] Sodium [Moles/Vol] 137 mmol/L 135 - 144 mmol/L [facility] Urea nitrogen (BldV) [Mass/Vol] 6 mg/dL 6 - 20 mg/dL [facility] Urea nitrogen/Creatinine (Bld) [Mass ratio] 10 [facility] CBC with Auto Differentialon 10-06-2021 Absolute Eos # 0.11 [facility] th Absolute Immature Granulocyte <0.03 [facility] Absolute Lymph # 3.53 [facility] alth Absolute Baca # 0.73 [facility] lth Basophils (Bld) [#/Vol] 0.06 10*3/uL [facility] Basophils/100 WBC (Bld) 1 % 0 - 2 % [facility] Eosinophils/100 WBC (Bld) 1 % 1 - 4 % [facility] Hematocrit (Bld) [Volume fraction] 40.0 % 36.3 - 47.1 % [facility] Hemoglobin.gastrointest inal spec 1 Ql (Stl) 13.7 g/dL 11.9 - 15.1 g/dL [facility] Immature granulocytes/100 WBC (Bld) 0 % 0 [facility] Lymphocytes/100 WBC (Bld) 35 % 24 - 43 % [facility] MCH (RBC) [Entitic mass] 30.9 pg 25.2 - 33.5 pg [facility] MCHC (RBC) [Mass/Vol] 34.3 g/dL 28.4 - 34.8 g/dL [facility] MCV (RBC) [Entitic vol] 90.1 fL 82.6 - 102.9 fL [facility] Monocytes/100 WBC (Bld) 7 % 3 - 12 % M [facility] NRBC Automated 0.0 0.0 per 100 WBC [facility] Platelet distribution width (Bld) [Ratio] 12.3 % 11.8 - 14.4 % [facility] Platelet mean volume (Bld) [Entitic vol] 9.9 fL 8.1 - 13.5 fL [facility] Platelets (Bld) [#/Vol] 352 10*3/uL [facility] RBC (Bld) [#/Vol] 4.44 10*6/uL 3.95 - 5.11 m/uL [facility] Segmented neutrophils/100 WBC (Bld) 56 % 36 - 65 % [facility] Segs Absolute 5.66 [facility] h WBC (Bld) [#/Vol] 10.1 10*3/uL [facility] D-Dimer, Quantitativeon -2 D-Dimer, Quant 0.52 [facility] th Comment on above: When combined with [...] more prevalent in patients with distal DVT. [employer] Hepatic Function Panelon Albumin [Mass/Vol] 4.7 g/dL 3.5 - 5.2 g/dL [employer] Albumin/Globulin [Mass ratio] 1.6 {ratio} [facility] ALP (Bld) [Catalytic activity/Vol] 97 U/L 35 - 104 U/L [employer] ALT [Catalytic activity/Vol] 45 U/L High 5 - 33 U/L [employer] AST [Catalytic activity/Vol] 32 U/L High <32 [facility] Bilirubin [Mass/Vol] 0.20 mg/dL Low 0.3 - 1 .2 mg/dL [facility] [employer] Bilirubin, Indirect Can not be calculated 0.00 - 1.00 mg/dL [facility] Bilirubin.indirect [Mass/Vol] mg/dL <0.31 mg/dL [facility] Free PSA/Total PSA [Mass fraction] 7.6 g/dL 6.4 - 8.3 g/dL [facility] Interpretation and review of laboratory results Abnormal [facility] Laboratory - Chemistry and C hemistry - challengeon 10-06-2021 GFR/1.73 sq M.predicted MDRD (S/P/Bld) [Vol rate/Area] [facility] Comment on above: Average GFR for 40-4 9 years old: 99 mL/min/1.73sq m Chronic Kidney Disease: <60 mL/min/1.73sq m Kidney failure: <15 mL/min/1.73sq m eGFR calculated using average adult body mass. Additional eGFR calculator available at: http://www.intelworks.skedge.me/multiple_crcl_2012.htm Stage 1: Some kidney damage normal GFR Stage 2: Mild kidney damage GFR 60-89 Stage 3: Moderate kidney damage GFR 30-59 Stage 4: Severe kidney damage GFR 15-29 Stage 5: Severe kidney damage GFR <15 ESRD - chronic treatment by dialysis or transplant Lipaseon 10-06-2021 Lipase [Catalytic activity/Vol] 23 U/L 13 - 60 U/L [facility] No Panel Informationon 10-06 [employer] [facility] Troponinon 10-06-2021 Troponin, High Sensitivity <6 0 - 14 ng/L [facility] Comment on above: High Sensitivity Troponin values cannot be compared with other Troponin methodologies. Patients with high levels of Biotin oral intake (i.e >5mg/day) may have falsely decreased Troponin levels. Samples collected within 8 hours of biotin intake may require additional information for diagnosis. [employer] Troponin, High Sensitivity <6 0 - 14 ng/L [facility] Comment on above: High Sensitivity Troponin values cannot be compared with other Troponin methodologies. Patients with high levels of Biotin oral intake (i.e >5mg/day) may have falsely decreased Troponin levels. Samples collected within 8 hours of biotin intake may require additional information for diagnosis. [employer] XR CHEST PORTABLEon 10-07-19 1. No definite acute cardiopulmonary disease; low lung volumes typical of expiratory phase respiration. Follow-up full inspiration PA and lateral chest may be useful for better characterization of pulmonary findings. 2. Pulmonary sequela typical of that seen with smoking. 3. Wires and cardiac leads overlying the chest could obscure an underlying finding. [facility] EXAMINATION: ONE XRAY VIEW OF THE [...] the chest could obscure an underlying finding. [facility] Rickey Kwan MD - 10/06/2021 EXAMINATION: [...] the chest could obscure an underlying finding. [employer] Work Phone: Radiology Study observation (narrative) [facility] Work Phone: XR CHEST PORTABLEOrdered By: Rickey Kwan on 10-06-2021 [employer] Work Phone: COVID-19on 08-19-2021 SARS-CoV-2 (COVID-19) RNA FAUSTINA+probe Ql (Unsp spec) [employer] SARS-CoV-2 (COVID-19) RNA FAUSTINA+probe Ql (Unsp spec) Not detected Not Detected [employer] Comment on above: The specimen is NEGATIVE for SARS-CoV-2, the novel coronavirus associated with COVID-19. A negative result does not rule out COVID-19. Pedro SARS-CoV-2 for use on the Pedro [employer] is a real-time RT-PCR test intended [...] this assay. Fact sheet for Healthcare Providers: https://www.fda.gov/media/398639/download Fact sheet for Patients: https://www.fda.gov/media/486947/download METHODOLOGY: RT-PCR Source .NASOPHARYNGEAL SWAB [facility] Culture, Urineon 08-15-2021 Bacteria identified Cx Nom (U) NO SIGNIFICANT GROWTH [facility] Special Requests NOT REPORTED [facility] Specimen Description .CLEAN CATCH URINE [facility] CBC Auto Differentialon 07-20 Absolute Eos # 0.13 [facility] Absolute Immature Granulocyte 0.05 [facility] Absolute Lymph # 3.01 [facility] alth Absolute Baca # 0.74 [facility] lth Basophils (Bld) [#/Vol] 0.06 10*3/uL [facility] Basophils/100 WBC (Bld) 1 % 0 - 2 % [facility] Differential Type NOT REPORTED [facility] Eosinophils/100 WBC (Bld) 1 % 1 - 4 % [facility] Hematocrit (Bld) [Volume fraction] 39.4 % 36.3 - 47.1 % [facility] Hemoglobin.gastrointest inal spec 1 Ql (Stl) 13.2 g/dL 11.9 - 15.1 g/dL [facility] Immature granulocytes/100 WBC (Bld) 0 % 0 [facility] Interpretation and review of laboratory results Abnormal [facility] Lymphocytes/100 WBC (Bld) 26 % 24 - 43 % [facility] MCH (RBC) [Entitic mass] 30.1 pg 25.2 - 33.5 pg [facility] MCHC (RBC) [Mass/Vol] 33.5 g/dL 28.4 - 34.8 g/dL [facility] MCV (RBC) [Entitic vol] 89.7 fL 82.6 - 102.9 fL [facility] Monocytes/100 WBC (Bld) 6 % 3 - 12 % [facility] NRBC Automated 0.0 0.0 per 100 WBC [facility] Platelet distribution width (Bld) [Ratio] 11.9 % 11.8 - 14.4 % [facility] Platelet Estimate NOT REPORTED [facility] Platelet mean volume (Bld) [Entitic vol] 9.7 fL 8.1 - 13.5 fL [facility] Platelets (Bld) [#/Vol] 360 10*3/uL [facility] RBC (Bld) [#/Vol] 4.39 10*6/uL 3.95 - 5.11 m/uL [facility] RBC (Bld) [#/Vol] NOT REPORTED [facility] Segmented neutrophils/100 WBC (Bld) 66 % High 36 - 65 % [facility] Segs Absolute 7.55 [facility] WBC (Bld) [#/Vol] 11.5 10*3/uL High [facility] WBC (Bld) [#/Vol] NOT REPORTED [facility] TYPE AND SCREENon 08-14-2021 ABO/Rh Positive [facility] Arm Band Number [id number] [facility] lth Expiration Date 08/21/2021,2359 [facility] VL DUP UPPER EXTREMITY VENOU S RIGHTon 07-08-2021 Jarred Gómez MD - 07/08/2021 [facility] Vascular Upper Extremities Veins Procedure Patient Name ADRIÁN Date of Study 07/08/2021 MIKE N Date of 1975 Gender Female Age 45 year(s) Race Room Number 09 Corporate ID [id number] # Patient Acct [id number] # MR # [id number] Business Intelligence Architect Maggie Bowman Kelly, RVT Interpreting Physician Jarred Gómez MD Referring Referring Physician Nurse Practitioner Additional Comments Results faxed to ER 07/08/2021 @3001. Procedure Type of Study: Veins: Upper Extremities [...] ! + --+ --+ --- + Mikaela [facility] Work Phone: Radiology Study observation (narrative) [facility] Work Phone: VL DUP UPPER EXTREMITY VENOU S RIGHTOrdered By: Jarred Gómez on 07-08-2021 [employer] Work Phone: Catheterization and angiogra phy procedure details panelon 06-19-2021 Cardiac Diagnostic Report Demographics Patient ADRIÁN Bee Date of Study 06/19/2021 Name Date of 1975 Gender Female Age 45 year(s) Race Room [id number]^MICHAELGREGORY Height: 64 inch, 162.56 cm Number Corporate [id number] Weight: 183 pounds, 83 kg ID # Patient [id number] BSA: 1.88 m^2 BMI: 31.41 Acct # kg/m^2 MR # [id number] Performing Physician Ronan Rodriguez Referring Physician # [...] for LV Pressure. Contrast Material: - Isovue 47589 ml Fluoroscopy Time: Diagnostic: 2:07 minutes. Total: [...] -----+ +------- ---+ (more content not included)... [facility] Ronan Rodriguez MD - 06/19/2021 Cardiac Diagnostic Report Demographics Patient ADRIÁN Bee Date of Study 06/19/2021 Name Date of 1975 Gender Female Age 45 year(s) Race Room [id number]^DELONTE Height: 64 inch, 162.56 cm Number Corporate [id number] Weight: 183 pounds, 83 kg ID # Patient [id number] BSA: 1.88 m^2 BMI: 31.41 Acct # kg/m^2 MR # [id number] Performing Physician Ronan Rodriguez Referring Physician # [...] for LV Pressure. Contrast Material: - Isovue 38031 ml Fluoroscopy Time: Diagnostic: 2:07 minutes. Total: [...] assessed as CCS III according to the [place]i clinical classification. Hemodynamics Condition: Baseline Room Air Estimated: 179.81Heart Rate: 59 bpm Pressure +-----+ --- + !Site !Pressure ! +-----+ -------- (more content not included)... [employer] Work Phone: [employer] Work Phone: Catheterization and angiogra phy procedure details panelOrdered By: Unknown Result on 06-19-2021 [employer] Basic Metabolic Panelon 05-19 Anion gap [Moles/Vol] 10 mmol/L 9 - 17 mmol/L [employer] Calcium [Mass/Vol] 9.1 mg/dL 8.6 - 10. 4 mg/dL [employer] Chloride [Moles/Vol] 104 mmol/L 98 - 10 7 mmol/L [employer] CO2 [Moles/Vol] 25 mmol/L 20 - 31 mmol/L [employer] Creatinine [Mass/Vol] 0.65 mg/dL 0.50 - 0.90 mg/dL [employer] GFR >60 >60 mL/min [employer] GFR Non- >60 >60 mL/min [facility] Glucose [Mass/Vol] 94 mg/dL 70 - 99 mg/dL [employer] Potassium [Moles/Vol] 4.0 mmol/L 3.7 - 5.3 mmol/L [employer] Sodium [Moles/Vol] 139 mmol/L 135 - 144 mmol/L [employer] Urea nitrogen (BldV) [Mass/Vol] 8 mg/dL 6 - 20 mg/dL [employer] Urea nitrogen/Creatinine (Bld) [Mass ratio] 12 [employer] [facility] CBC Auto Differentialon 05-19 Absolute Eos # 0.08 [facility] th Absolute Immature Granulocyte <0.03 [employer] [facility] Absolute Lymph # 1.74 [facility] alth Absolute Baca # 0.38 [facility] Basophils (Bld) [#/Vol] 0.05 10*3/uL [employer] Basophils/100 WBC (Bld) 1 % 0 - 2 % [employer] [facility] Differential Type NOT REPORTED [facility] Eosinophils/100 WBC (Bld) 1 % 1 - 4 % [facility] Hematocrit (Bld) [Volume fraction] 37.4 % 36.3 - 47.1 % [facility] Hemoglobin.gastrointest inal spec 1 Ql (Stl) 12.4 g/dL 11.9 - 15.1 g/dL [facility] Immature granulocytes/100 WBC (Bld) 0 % 0 [facility] Lymphocytes/100 WBC (Bld) 29 % 24 - 43 % [facility] MCH (RBC) [Entitic mass] 29.8 pg 25.2 - 33.5 pg [facility] MCHC (RBC) [Mass/Vol] 33.2 g/dL 28.4 - 34.8 g/dL [facility] MCV (RBC) [Entitic vol] 89.9 fL 82.6 - 102.9 fL [facility] Monocytes/100 WBC (Bld) 6 % 3 - 12 % M [facility] NRBC Automated 0.0 0.0 per 100 WBC [facility] Platelet distribution width (Bld) [Ratio] 11.9 % 11.8 - 14.4 % [facility] Platelet Estimate NOT REPORTED [facility] Platelet mean volume (Bld) [Entitic vol] 9.4 fL 8.1 - 13.5 fL [facility] Platelets (Bld) [#/Vol] 274 10*3/uL [facility] RBC (Bld) [#/Vol] 4.16 10*6/uL 3.95 - 5.11 m/uL [facility] RBC (Bld) [#/Vol] NOT REPORTED [facility] Segmented neutrophils/100 WBC (Bld) 63 % 36 - 65 % [facility] Segs Absolute 3.76 [facility] WBC (Bld) [#/Vol] 6.0 10*3/uL [facility] WBC (Bld) [#/Vol] NOT REPORTED [facility] Laboratory - Chemistry and C hemistry - challengeon 06-06-2021 GFR/1.73 sq M.predicted MDRD (S/P/Bld) [Vol rate/Area] [facility] Comment on above: Average GFR for 40-4 9 years old: 99 mL/min/1.73sq m Chronic Kidney Disease: <60 mL/min/1.73sq m Kidney failure: <15 mL/min/1.73sq m eGFR calculated using average adult body mass. Additional eGFR calculator available at: http://www.RaveMobileSafety.com/multiple_crcl_2012.htm Stage 1: Some kidney damage normal GFR Stage 2: Mild kidney damage GFR 60-89 Stage 3: Moderate kidney damage GFR 30-59 Stage 4: Severe kidney damage GFR 15-29 Stage 5: Severe kidney damage GFR <15 ESRD - chronic treatment by dialysis or transplant Troponinon 06-06-2021 Troponin Interp NOT REPORTED [email or web address] ealt Troponin T NOT REPORTED <0.03 ng/mL [employer] Troponin, High Sensitivity <6 0 - 14 ng/L [employer] Comment on above: High Sensitivity Troponin values cannot be compared with other Troponin methodologies. Patients with high levels of Biotin oral intake (i.e >5mg/day) may have falsely decreased Troponin levels. Samples collected within 8 hours of biotin intake may require additional information for diagnosis. [employer] Troponin Interp NOT REPORTED [employer] Troponin T NOT REPORTED <0.03 ng/mL [employer] Troponin, High Sensitivity <6 0 - 14 ng/L [employer] Comment on above: High Sensitivity Troponin values cannot be compared with other Troponin methodologies. Patients with high levels of Biotin oral intake (i.e >5mg/day) may have falsely decreased Troponin levels. Samples collected within 8 hours of biotin intake may require additional information for diagnosis. [employer] XR CHEST PORTABLEon 06-06-20 21 No acute process. [facility] CONSOL[facility] EXAMINATION: ONE XRAY VIEW OF THE CHEST 06/06/2021 10:04 am COMPARISON: June 17, 2020 HISTORY: ORDERING SYSTEM PROVIDED HISTORY: dizziness TECHNOLOGIST PROVIDED HISTORY: dizziness FINDINGS: The lungs are without acute focal process. There is no effusion or pneumothorax. The cardiomediastinal silhouette is without acute process. The osseous structures are without acute process. [facility] Sal Mena DO - 06/06/2021 EXAMINATION: ONE XRAY VIEW OF THE CHEST 06/06/2021 10:04 am COMPARISON: June 17, 2020 HISTORY: ORDERING SYSTEM PROVIDED HISTORY: dizziness TECHNOLOGIST PROVIDED HISTORY: dizziness FINDINGS: The lungs are without acute focal process. There is no effusion or pneumothorax. The cardiomediastinal silhouette is without acute process. The osseous structures are without acute process. IMPRESSION: No acute process. [employer] Phone: Radiology Study observation (narrative) Mikaela [employer] Phone: XR CHEST PORTABLEOrdered By: Sal Mena on 06-06-2021 [employer] Phone: XR SHOULDER LEFT (MIN 2 VIEW S)on 06-06-2021 No acute findings. [facility] EXAMINATION: XRAY VIEWS OF THE LEFT SHOULDER 06/06/2021 11:10 am COMPARISON: None. HISTORY: ORDERING SYSTEM PROVIDED HISTORY: pain TECHNOLOGIST PROVIDED HISTORY: pain FINDINGS: No fracture, dislocation, or suspicious osseous lesion. [facility] Alvino Edgar P - 06/06/2021 EXAMINATION: XRAY VIEWS OF THE LEFT SHOULDER 06/06/2021 11:10 am COMPARISON: None. HISTORY: ORDERING SYSTEM PROVIDED HISTORY: pain TECHNOLOGIST PROVIDED HISTORY: pain FINDINGS: No fracture, dislocation, or suspicious osseous lesion. IMPRESSION: No acute findings. [employer] Phone: Radiology Study observation (narrative) [employer] Phone: XR SHOULDER LEFT (MIN 2 VIEW S)Ordered By: Alvino Edgar on 06-06-2021 [employer] Phone: CT ABDOMEN PELVIS WO CONTRAS T Additional Contrast? NoneOrdered By: Ruiz Romero on 05-22-2021 Negative nephrolithi asis or uropathy. No acute inflammatory process or bowel obstruction. [employer] Phone: EXAMINATION: CT OF Eliu DAN ABDOMEN [...] discectomy and fusion. Pedicle screws at L5-S1. [employer] Phone: Benoit, pn Incoming Radiant Results From [employer] - 05/22/2021 6:45 PM EDT EXAMINATION: CT [...] No acute inflammatory process or bowel obstruction. [employer] Work Phone: [facility] Work Phone: Microscopic UrinalysisOrdere d By: Ruiz Romero on 05-22-2021 - [facility] Work Phone: Amorphous, UA NOT REPORTED None [facility] Work Phone: Bacteria, UA NOT REPORTED None [facility] Work Phone: Casts UA NOT REPORTED /LPF [facility] Work Phone: Crystals, UA NOT REPORTED None /HPF [facility] Work Phone: Epithelial Cells UA 0 TO 2 [facility] Work Phone: Mucus, UA NOT REPORTED None [facility] Work Phone: Other Observations UA NOT REPORTED NOT REQ. M [facility] Work Phone: RBC, UA None [facility] Work Phone: Renal Epithelial, UA NOT REPORTED 0 /HPF Me [facility] Work Phone: Trichomonas, UA NOT REPORTED None [facility] [employer]alt Work Phone: WBC, UA None [facility] Work Phone: Yeast, UA NOT REPORTED None [facility] Work Phone: [facility] Work Phone: Urinalysis Reflex to Culture Ordered By: Ruiz Romero on 05-22-2021 Bilirubin Urine Negative NEGATIVE [facility] Work Phone: Color, UA Yellow Yellow [facility] Work Phone: Glucose, Ur Negative NEGATIVE [facility] Work Phone: Interpretation and review of laboratory results Abnormal [facility] Work Phone: Ketones Ql (U) Negative NEGATIVE [facility] Work Phone: Leukocyte esterase Test strip Ql (U) Negative NEGATIVE [facility] Work Phone: Nitrite, Urine Negative NEGATIVE [facility] Work Phone: pH, UA 6.5 [facility] Work Phone: Protein, UA Negative NEGATIVE [facility] Work Phone: Specific Russell, UA 1.010 [facility] [employer] Work Phone: Turbidity UA Clear Clear [facility] Work Phone: Urinalysis Comments NOT REPORTED [facility] Work Phone: Urine Hgb TRACE Abnormal NEGATIVE [facility] Work Phone: Urobilinogen, Urine Normal Normal [facility] Work Phone: [facility] Work Phone: Laboratory - Microbiology an d Antimicrobial susceptibilityOrdered By: Ena Fung on 05-08-2021 SARS-CoV-2 (COVID-19) RNA FAUSTINA+probe Ql (Resp) Not detected (Not Detected ) [facility] Work Phone: Comment on [...] of in vitro diagnostic tests for detection [id number] virus and/or diagnosis of COVID-19 infectionunder section [...] (COVID-19) RNA FAUSTINA+probe Ql (Unsp spec) Performed [facility] Work Phone: Laboratory - Microbiology an d Antimicrobial susceptibilityOrdered By: Veronica Renteria on 03-20-2021 SARS-CoV-2 (COVID-19) RNA FAUSTINA+probe Ql (Resp) Not detected (Not Detected ) [facility] Work Phone: Comment on above: Note: [...] of in vitro diagnostic tests for detection [id number] virus and/or diagnosis of COVID-19 infectionunder section [...] Mild lateral malleol ar soft tissue swelling. [employer] Phone: EXAMINATION: THREE X RAY VIEWS OF THE RIGHT ANKLE; THREE XRAY VIEWS OF THE RIGHT FOOT 01/29/2021 6:44 am COMPARISON: 02/07/2007. HISTORY: ORDERING SYSTEM PROVIDED HISTORY: Ankle pain. Injury. TECHNOLOGIST PROVIDED HISTORY: Ankle pain. Injury. FINDINGS: No fracture, dislocation or joint abnormality. Bone density is normal. Mild soft tissue swelling over the lateral malleolus. [employer] Phone: Benoit, Mhpn Incoming Radiant Results From [employer] - 01/29/2021 7:24 AM EDT EXAMINATION: THREE [...] IMPRESSION: Mild lateral malleolar soft tissue swelling. [employer] Phone: [employer] Phone: Basic Metabolic PanelOrdered By: Erna Osman on 01-09-2021 Anion gap [Moles/Vol] 9 mmol/L 9 - 17 mmol/L [employer] Phone: Calcium [Mass/Vol] 9.3 mg/dL 8.6 - 10. 4 mg/dL [employer] Phone: Chloride [Moles/Vol] 107 mmol/L 98 - 10 7 mmol/L [employer] Phone: CO2 [Moles/Vol] 24 mmol/L 20 - 31 mmol/L [employer] Phone: Creatinine [Mass/Vol] 0.71 mg/dL 0.50 - 0.90 mg/dL [employer] Phone: GFR >60 >60 mL/min [employer] Phone: GFR Non- >60 >60 mL/min [facility] Phone: Glucose [Mass/Vol] 100 mg/dL High 70 - 99 mg/dL [facility] Work Phone: Interpretation and review of laboratory results Abnormal [facility] Phone: Potassium [Moles/Vol] 3.7 mmol/L 3.7 - 5.3 mmol/L [facility] Work Phone: Sodium [Moles/Vol] 140 mmol/L 135 - 144 mmol/L [facility] Work Phone: Urea nitrogen (BldV) [Mass/Vol] 5 mg/dL Low 6 - 20 mg/dL [facility] Phone: Urea nitrogen/Creatinine (Bld) [Mass ratio] 7 Low [facility] Work Phone: [facility] Work Phone: CBC With Auto DifferentialOr dered By: Erna Osman on 01-09-2021 Absolute Eos # 0.10 [facility] Work Phone: Absolute Immature Granulocyte <0.03 [facility] [employer] Work Phone: Absolute Lymph # 2.48 [facility] Work Phone: Absolute Baca # 0.48 [facility] Work Phone: Basophils (Bld) [#/Vol] 0.04 10*3/uL [facility] Work Phone: Basophils/100 WBC (Bld) 1 % 0 - 2 % M [facility] [employer] Work Phone: Differential Type NOT REPORTED [facility] [employer] Phone: Eosinophils/100 WBC (Bld) 1 % 1 - 4 % [facility] Work Phone: Hematocrit (Bld) [Volume fraction] 34.7 % Low 36.3 - 47.1 % [employer] Phone: Hemoglobin.gastrointest inal spec 1 Ql (Stl) 11.4 g/dL Low 11.9 - 15.1 g/dL [employer] Phone: Immature granulocytes/100 WBC (Bld) 0 % 0 [employer] Phone: Interpretation and review of laboratory results Abnormal [employer] Phone: Lymphocytes/100 WBC (Bld) 34 % 24 - 43 % [employer] Phone: MCH (RBC) [Entitic mass] 29.8 pg 25.2 - 33.5 pg [employer] Phone: MCHC (RBC) [Mass/Vol] 32.9 g/dL 28.4 - 34.8 g/dL [employer] Phone: MCV (RBC) [Entitic vol] 90.6 fL 82.6 - 102.9 fL [employer] Phone: Monocytes/100 WBC (Bld) 7 % 3 - 12 % M [employer] Phone: NRBC Automated 0.0 0.0 per 100 WBC [employer] Phone: Platelet distribution width (Bld) [Ratio] 12.2 % 11.8 - 14.4 % [employer] Phone: Platelet Estimate NOT REPORTED [employer] Phone: Platelet mean volume (Bld) [Entitic vol] 10.1 fL 8.1 - 13.5 fL [employer] Phone: Platelets (Bld) [#/Vol] 282 10*3/uL [employer] Phone: RBC (Bld) [#/Vol] 3.83 10*6/uL Low 3.95 - 5.11 m/uL [employer] Phone: RBC (Bld) [#/Vol] NOT REPORTED [employer] Phone: Segmented neutrophils/100 WBC (Bld) 57 % 36 - 65 % [employer] Phone: Segs Absolute 4.24 [employer] Work Phone: WBC (Bld) [#/Vol] 7.4 10*3/uL [employer] Work Phone: WBC (Bld) [#/Vol] NOT REPORTED [employer] Phone: [employer] Phone: Laboratory - Chemistry and C hemistry - challengeOrdered By: Erna Osman on 01-09-2021 GFR/1.73 sq M.predicted MDRD (S/P/Bld) [Vol rate/Area] [employer] Phone: Comment on above: Average GFR for 40-4 9 years old: 99 mL/min/1.73sq m Chronic Kidney Disease: <60 mL/min/1.73sq m Kidney failure: <15 mL/min/1.73sq m eGFR calculated using average adult body mass. Additional eGFR calculator available at: http://www.RaveMobileSafety.com/multiple_crcl_2012.htm Stage 1: Some kidney damage normal GFR [...] 8 mmol/L Low 9 - 17 mmol/L [employer] Phone: Calcium [Mass/Vol] 8.7 mg/dL 8.6 - 10. 4 mg/dL [employer] Phone: Chloride [Moles/Vol] 105 mmol/L 98 - 10 7 mmol/L [employer] Phone: CO2 [Moles/Vol] 27 mmol/L 20 - 31 mmol/L [facility] [employer] Work Phone: Creatinine [Mass/Vol] 0.84 mg/dL 0.50 - 0.90 mg/dL [facility] [employer] Phone: GFR >60 >60 mL/min [facility] [employer] Phone: GFR Non- >60 >60 mL/min [facility] [employer] Work Phone: Glucose [Mass/Vol] 131 mg/dL High 70 - 99 mg/dL [facility] [employer] Work Phone: Interpretation and review of laboratory results Abnormal [facility] Phone: Potassium [Moles/Vol] 3.0 mmol/L Low 3.7 - 5.3 mmol/L [facility] [employer] Phone: Sodium [Moles/Vol] 140 mmol/L 135 - 144 mmol/L [facility] [employer] Work Phone: Urea nitrogen (BldV) [Mass/Vol] 8 mg/dL 6 - 20 mg/dL [facility] [employer] Work Phone: Urea nitrogen/Creatinine (Bld) [Mass ratio] 10 [facility]: [facility] [employer] Work Phone: CBC auto differentialOrdered By: Alvino Zavala on 01-03-2021 Absolute Eos # 0.09 [facility] Work Phone: Absolute Immature Granulocyte <0.03 [facility] [employer] Work Phone: Absolute Lymph # 2.19 [facility] [employer] Work Phone: Absolute Baca # 0.62 [facility] Work Phone: Basophils (Bld) [#/Vol] 0.04 10*3/uL [facility] [employer] Work Phone: Basophils/100 WBC (Bld) 1 % 0 - 2 % M [employer] Phone: Differential Type NOT REPORTED [employer] Phone: Eosinophils/100 WBC (Bld) 1 % 1 - 4 % [employer] Phone: Hematocrit (Bld) [Volume fraction] 32.6 % Low 36.3 - 47.1 % [employer] Phone: Hemoglobin.gastrointest inal spec 1 Ql (Stl) 11.3 g/dL Low 11.9 - 15.1 g/dL [employer] Phone: Immature granulocytes/100 WBC (Bld) 0 % 0 [employer] Phone: Interpretation and review of laboratory results Abnormal [employer] Phone: Lymphocytes/100 WBC (Bld) 34 % 24 - 43 % [employer] Phone: MCH (RBC) [Entitic mass] 30.1 pg 25.2 - 33.5 pg [employer] Phone: MCHC (RBC) [Mass/Vol] 34.7 g/dL 28.4 - 34.8 g/dL [employer] Phone: MCV (RBC) [Entitic vol] 86.9 fL 82.6 - 102.9 fL [employer] Phone: Monocytes/100 WBC (Bld) 10 % 3 - 12 % M [employer] Work Phone: NRBC Automated 0.0 0.0 per 100 WBC [employer] Phone: Platelet distribution width (Bld) [Ratio] 11.5 % Low 11.8 - 14.4 % [employer] Phone: Platelet Estimate NOT REPORTED [employer] Phone: Platelet mean volume (Bld) [Entitic vol] 10.1 fL 8.1 - 13.5 fL [employer] Phone: Platelets (Bld) [#/Vol] 286 10*3/uL [employer] Phone: RBC (Bld) [#/Vol] 3.75 10*6/uL Low 3.95 - 5.11 m/uL [employer] Phone: RBC (Bld) [#/Vol] NOT REPORTED [employer] Phone: Segmented neutrophils/100 WBC (Bld) 54 % 36 - 65 % [employer] Phone: Segs Absolute 3.45 [employer] Work Phone: WBC (Bld) [#/Vol] 6.4 10*3/uL [employer] Phone: WBC (Bld) [#/Vol] NOT REPORTED [employer] Phone: [employer] Phone: EKG Rhythm StripOrdered By: Unknown Result on 01-03-2021 HR 62 [employer] Phone: [employer] Phone: re-labeled to Sinus Rhythm [employer] Phone: [employer] Phone: re-labeled to Sinus Rhythm [employer] Phone: [employer] Phone: re-labeled to Sinus Rhythm [employer] Phone: [employer] Phone: EsophagogastroduodenoscopyOr dered By: Alvino Zavala on 01-03-2021 No dictation [employer] Phone: [employer] Phone: Laboratory - Chemistry and C hemistry - challengeOrdered By: Alvino Zavala on 01-03-2021 GFR/1.73 sq M.predicted MDRD (S/P/Bld) [Vol rate/Area] [employer] Work Phone: Comment on above: Average GFR for 40-4 9 years old: 99 mL/min/1.73sq m Chronic Kidney Disease: <60 mL/min/1.73sq m Kidney failure: <15 mL/min/1.73sq m eGFR calculated using average adult body mass. Additional eGFR calculator available at: http://www.RaveMobileSafety.com/multiple_crcl_2012.htm Stage 1: Some kidney damage normal GFR Stage 2: Mild kidney damage GFR 60-89 Stage 3: Moderate kidney damage GFR 30-59 Stage 4: Severe kidney damage GFR 15-29 Stage 5: Severe kidney damage GFR <15 ESRD - chronic treatment by dialysis or transplant MagnesiumOrdered By: Erna Osman on 01-03-2021 Magnesium [Mass/Vol] 2.3 mg/dL 1.6 - 2 .6 mg/dL [employer] Work Phone: [employer] Work Phone: Occult Blood ScreenOrdered B y: [...] Work Phone: Time, Stool #3 NOT REPORTED [employer] Phone: [employer] Phone: COVID-19, RapidOrdered By: Mignon Zavala on 01-02-2021 SARS-CoV-2 (COVID-19) RNA FAUSTINA+probe Ql (Unsp spec) Not detected Not Detected [employer] Phone: Comment on above: Rapid NAAT: The [...] management decisions. Fact sheet for Healthcare Providers: https://www.fda.gov/media/593076/download Fact sheet for Patients: https://www.fda.gov/media/749528/download Methodology: Isothermal Nucleic Acid Amplification Specimen Description .NASOPHARYNGEAL SWAB [employer] Phone: [employer] Phone: EKG Rhythm StripOrdered By: Unknown Result on 01-02-2021 re-labeled to Sinus Rhythm ks [employer] Phone: [employer] Phone: PotassiumOrdered By: Janae Parker on 01-02-2021 Interpretation and review of laboratory results Abnormal [employer] Phone: Potassium [Moles/Vol] 2.8 mmol/L Critically low 3.7 - 5.3 mmol/L [employer] Phone: [employer] Phone: CBC auto differentialOrdered By: Olaf Pineda on 01-01-2021 Absolute Eos # 0.05 [employer] [facility] Work Phone: Absolute Immature Granulocyte <0.03 [facility] Phone: Absolute Lymph # 2.24 [employer] Work Phone: Absolute Baca # 0.64 [employer] [facility] Work Phone: Basophils (Bld) [#/Vol] 0.04 10*3/uL [employer] Work Phone: Basophils/100 WBC (Bld) 1 % 0 - 2 % M [facility] [employer] Work Phone: Differential Type NOT REPORTED [facility] Phone: Eosinophils/100 WBC (Bld) 1 % 1 - 4 % [facility] Phone: Hematocrit (Bld) [Volume fraction] 32.7 % Low 36.3 - 47.1 % [employer] Work Phone: Hemoglobin.gastrointest inal spec 1 Ql (Stl) 11.6 g/dL Low 11.9 - 15.1 g/dL [employer] Phone: Immature granulocytes/100 WBC (Bld) 0 % 0 [employer] Phone: Interpretation and review of laboratory results Abnormal [employer] Phone: Lymphocytes/100 WBC (Bld) 30 % 24 - 43 % [employer] Work Phone: MCH (RBC) [Entitic mass] 30.1 pg 25.2 - 33.5 pg [employer] Work Phone: MCHC (RBC) [Mass/Vol] 35.5 g/dL High 28.4 - 34.8 g/dL [employer] Phone: MCV (RBC) [Entitic vol] 84.7 fL 82.6 - 102.9 fL [employer] Work Phone: Monocytes/100 WBC (Bld) 9 % 3 - 12 % M [employer] Work Phone: NRBC Automated 0.0 0.0 per 100 WBC [employer] Phone: Platelet distribution width (Bld) [Ratio] 11.4 % Low 11.8 - 14.4 % [employer] Phone: Platelet Estimate NOT REPORTED [employer] Phone: Platelet mean volume (Bld) [Entitic vol] 10.1 fL 8.1 - 13.5 fL [employer] Phone: Platelets (Bld) [#/Vol] 281 10*3/uL [employer] Phone: RBC (Bld) [#/Vol] 3.86 10*6/uL Low 3.95 - 5.11 m/uL [employer] Work Phone: RBC (Bld) [#/Vol] NOT REPORTED [employer] Phone: Segmented neutrophils/100 WBC (Bld) 59 % 36 - 65 % [employer] Phone: Segs Absolute 4.55 [employer] Work Phone: WBC (Bld) [#/Vol] 7.5 10*3/uL [employer] Work Phone: WBC (Bld) [#/Vol] NOT REPORTED [employer] Phone: [employer] Work Phone: Comprehensive Metabolic Pane lOrdered By: Olaf Pineda on 01-01-2021 Albumin [Mass/Vol] 4.7 g/dL 3.5 - 5.2 g/dL [employer] Phone: Albumin/Globulin [Mass ratio] 1.6 {ratio} [employer] Phone: ALP (Bld) [Catalytic activity/Vol] 99 U/L 35 - 104 U/L [employer] Phone: ALT [Catalytic activity/Vol] 21 U/L 5 - 33 U/L [employer] Phone: Anion gap [Moles/Vol] 14 mmol/L 9 - 17 mmol/L [employer] Phone: AST [Catalytic activity/Vol] 19 U/L <32 [employer] Phone: Bilirubin [Mass/Vol] 0.51 mg/dL 0.3 - 1 .2 mg/dL [employer] Phone: Calcium [Mass/Vol] 9.6 mg/dL 8.6 - 10. 4 mg/dL [employer] Phone: Chloride [Moles/Vol] 91 mmol/L Low 98 - 10 7 mmol/L [employer] Phone: CO2 [Moles/Vol] 27 mmol/L 20 - 31 mmol/L [employer] Phone: Creatinine [Mass/Vol] 1.17 mg/dL High 0.50 - 0.90 mg/dL [employer] Phone: Free PSA/Total PSA [Mass fraction] 7.6 g/dL 6.4 - 8.3 g/dL [employer] Phone: GFR >60 >60 mL/min [employer] Phone: GFR Non- 50 mL/min Low >60 [employer] Phone: Glucose [Mass/Vol] 120 mg/dL High 70 - 99 mg/dL [employer] Phone: Interpretation and review of laboratory results Abnormal [employer] Phone: Potassium [Moles/Vol] 2.2 mmol/L Critically low 3.7 - 5.3 mmol/L [employer] Phone: Sodium [Moles/Vol] 132 mmol/L Low 135 - 144 mmol/L [employer] Phone: Urea nitrogen (BldV) [Mass/Vol] 32 mg/dL High 6 - 20 mg/dL [employer] Phone: Urea nitrogen/Creatinine (Bld) [Mass ratio] 27 High [employer] Phone: [employer] Phone: D-dimer, quantitativeOrdered By: Olaf Pineda on 01-01-2021 D-Dimer, Quant <0.27 [employer] Phone: Comment on above: When combined with [...] more prevalent in patients with distal DVT. [employer] Phone: Glucose, Whole BloodOrdered By: Olaf Pineda on 01-01-2021 Glucose [Mass/Vol] 86 mg/dL 74 - 100 mg/dL [employer] Phone: [employer] Phone: Laboratory - Chemistry and C hemistry - challengeOrdered By: Olaf Pineda on 01-01-2021 GFR/1.73 sq M.predicted MDRD (S/P/Bld) [Vol rate/Area] [employer] Phone: Comment on above: Average GFR for 40-4 9 years old: 99 mL/min/1.73sq m Chronic Kidney Disease: <60 mL/min/1.73sq m Kidney failure: <15 mL/min/1.73sq m eGFR calculated using average adult body mass. Additional eGFR calculator available at: http://www.RaveMobileSafety.com/[address]_crcl_2012.htm Stage 1: Some kidney damage normal GFR Stage 2: Mild kidney damage GFR 60-89 Stage 3: Moderate kidney damage GFR 30-59 Stage 4: Severe kidney damage GFR 15-29 Stage 5: Severe kidney damage GFR <15 ESRD - chronic treatment by dialysis or transplant MagnesiumOrdered By: Olaf Pineda on 01-01-2021 Magnesium [Mass/Vol] 2.1 mg/dL 1.6 - 2 .6 mg/dL [employer] Phone: [employer] Phone: No Panel InformationOrdered By: Olaf Pineda on 01-01-2021 Chest: 1. No evidenc e for acute pulmonary embolism. 2. No evidence for pneumonia. Abdomen pelvis: 1. No acute infective or inflammatory process. 2. No bowel obstruction. 3. Postsurgical changes in lumbar spine with L4-5 and L5-S1 fusion. [employer] Phone: EXAMINATION: CT OF T HE ABDOMEN [...] superficial soft tissues show no significant abnormalities. [employer] Work Phone: Ben[place], Mhpn Incoming Radiant Results From [employer] - 01/01/2021 2:03 PM EDT EXAMINATION: CT [...] lumbar spine with L4-5 and L5-S1 fusion. [employer] Phone: [employer] Phone: POCT glucoseOrdered By: Nicanor Schwab on 01-01-2021 Glucose [Mass/Vol] 86 mg/dL [employer] Phone: Interpretation and review of laboratory results Normal [employer] Phone: QC OK? y [employer] Phone: [employer] Phone: TroponinOrdered By: Olaf Pineda on 01-01-2021 Troponin Interp NOT REPORTED [employer] Work Phone: Troponin T NOT REPORTED <0.03 ng/mL [employer] Phone: Troponin, High Sensitivity <6 0 - 14 ng/L [employer] Phone: Comment on above: High Sensitivity Troponin values cannot be compared with other Troponin methodologies. Patients with high levels of Biotin oral intake (i.e >5mg/day) may have falsely decreased Troponin levels. Samples collected within 8 hours of biotin intake may require additional information for diagnosis. [employer] Phone: VL DUP LOWER EXTREMITY VENOU S BILATERALOrdered By: Olaf Pineda on 01-01-2021 [place], Mhpn Incoming Cardio Results From [facility]/ - 01/01/2021 5:27 PM EDT [facility] Vascular Lower Extremities DVT Study Procedure Patient Name ADRIÁN Date of Study 01/01/2021 MIKE N Date of 1975 Gender Female Age 45 year(s) Race Room Number 12 [facility] ID [id number] # Patient Acct [id number] # MR # [id number] Business Intelligence Architect Crystal Wilhelm RVT Interpreting Physician Aman Haas MD Referring Referring Physician Olaf Pineda Nurse Practitioner Additional Comments Results were given to Dr. Pineda 01/01/2021 @ 6416. Procedure Type of Study: Veins: Lower Extremities [...] ! + + (more content not included)... [employer] Phone: [employer] Phone: Basic Metabolic Panel w/ Ref golden to MGOrdered By: Santhosh Schwab on 11-22-2020 Anion gap [Moles/Vol] 8 mmol/L Low 9 - 17 mmol/L [employer] Phone: Calcium [Mass/Vol] 9.3 mg/dL 8.6 - 10. 4 mg/dL [employer] Phone: Chloride [Moles/Vol] 102 mmol/L 98 - 10 7 mmol/L [employer] Phone: CO2 [Moles/Vol] 28 mmol/L 20 - 31 mmol/L [employer] Phone: Creatinine [Mass/Vol] 0.64 mg/dL 0.50 - 0.90 mg/dL [employer] Phone: GFR >60 >60 mL/min [employer] Phone: GFR Non- >60 >60 mL/min [employer] Work Phone: Glucose [Mass/Vol] 96 mg/dL 70 - 99 mg/dL [employer] Work Phone: Interpretation and review of laboratory results Abnormal [employer] Phone: Potassium [Moles/Vol] 3.2 mmol/L Low 3.7 - 5.3 mmol/L [employer] Work Phone: Sodium [Moles/Vol] 138 mmol/L 135 - 144 mmol/L [employer] Work Phone: Urea nitrogen (BldV) [Mass/Vol] 14 mg/dL 6 - 20 mg/dL [employer] Work Phone: Urea nitrogen/Creatinine (Bld) [Mass ratio] 22 High [employer] Work Phone: CBC Auto DifferentialOrdered By: Santhosh Schwab on 11-22-2020 [employer] # 0.04 [employer] [facility] Work Phone: Absolute Immature Granulocyte 0.16 [employer] Work Phone: Absolute Lymph # 3.02 [facility] Work Phone: Absolute Baca # 1.38 [facility] [employer] [facility] Work Phone: Basophils (Bld) [#/Vol] 10*3/uL [employer] Work Phone: Basophils/100 WBC (Bld) 0 % 0 - 2 % [employer] Work Phone: Differential Type NOT REPORTED [employer] Work Phone: Eosinophils/100 WBC (Bld) 0 % Low 1 - 4 % [employer] Work Phone: Hematocrit (Bld) [Volume fraction] 38.5 % 36.3 - 47.1 % [employer] Work Phone: Hemoglobin.gastrointest inal spec 1 Ql (Stl) 13.2 g/dL 11.9 - 15.1 g/dL [employer] Phone: Immature granulocytes/100 WBC (Bld) 1 % High 0 [employer] Phone: Interpretation and review of laboratory results Abnormal [employer] Phone: Lymphocytes/100 WBC (Bld) 15 % Low 24 - 43 % [employer] Phone: MCH (RBC) [Entitic mass] 30.7 pg 25.2 - 33.5 pg [employer] Phone: MCHC (RBC) [Mass/Vol] 34.3 g/dL 28.4 - 34.8 g/dL [employer] Phone: MCV (RBC) [Entitic vol] 89.5 fL 82.6 - 102.9 fL [employer] Phone: Monocytes/100 WBC (Bld) 7 % 3 - 12 % [employer] Phone: NRBC Automated 0.0 0.0 per 100 WBC [employer] Phone: Platelet distribution width (Bld) [Ratio] 12.2 % 11.8 - 14.4 % [employer] Phone: Platelet Estimate NOT REPORTED [employer] Phone: Platelet mean volume (Bld) [Entitic vol] 9.8 fL 8.1 - 13.5 fL [employer] Phone: Platelets (Bld) [#/Vol] 352 10*3/uL [employer] Phone: RBC (Bld) [#/Vol] 4.30 10*6/uL 3.95 - 5.11 m/uL [employer] Phone: RBC (Bld) [#/Vol] NOT REPORTED [employer] Phone: Segmented neutrophils/100 WBC (Bld) 77 % High 36 - 65 % [employer] Work Phone: Segs Absolute 15.76 High [employer] Work Phone: WBC (Bld) [#/Vol] 20.4 10*3/uL High [employer] Work Phone: WBC (Bld) [#/Vol] NOT REPORTED [employer] Phone: CT SOFT TISSUE NECK W CONTRA STOrdered By: Santhosh Schwab on 11-22-2020 No acute abnormality of the soft tissue structures of the neck. [employer] Phone: EXAMINATION: CT OF T HE NECK [...] aggressive appearing lytic or blastic bony lesion. [employer] Phone: [place], Mhpn Incoming Radiant Results From [employer] - 11/22/2020 1:37 PM EDT EXAMINATION: CT [...] the soft tissue structures of the neck. [employer] Phone: Laboratory - Chemistry and C hemistry - challengeOrdered By: Santhosh Schwab on 11-22-2020 GFR/1.73 sq M.predicted MDRD (S/P/Bld) [Vol rate/Area] [employer] Phone: Comment on above: Average GFR for 40-4 9 years old: 99 mL/min/1.73sq m Chronic Kidney Disease: <60 mL/min/1.73sq m Kidney failure: <15 mL/min/1.73sq m eGFR calculated using average adult body mass. Additional eGFR calculator available at: http://www.RaveMobileSafety.com/multiple_crcl_2012.htm Stage 1: Some kidney damage normal GFR Stage 2: Mild kidney damage GFR 60-89 Stage 3: Moderate kidney damage GFR 30-59 Stage 4: Severe kidney damage GFR 15-29 Stage 5: Severe kidney damage GFR <15 ESRD - chronic treatment by dialysis or transplant MagnesiumOrdered By: Santhosh Schwab on 11-22-2020 Magnesium [Mass/Vol] 2.2 mg/dL 1.6 - 2 .6 mg/dL [employer] Phone: COVID-19on 09-20-2020 Interpretation and review of laboratory results Abnormal [employer] Phone: SARS-CoV-2 [employer] Phone: SARS-CoV-2 DETECTED Abnormal Not Detected [employer] Phone: Comment on above: The specimen is POSITIVE for SARS-Cov-2, the novel coronavirus associated with COVID-19. Pedro SARS-CoV-2 for use on the Pedro [employer] is a real-time RT-PCR test intended [...] this assay. Fact sheet for Healthcare Providers: https://www.fda.gov/media/564838/download Fact sheet for Patients: https://www.fda.gov/media/066549/download METHODOLOGY: RT-PCR Results reported to the appropriate Health Department Source .THROAT SWAB [employer] Phone: Amylaseon 09-19-2020 Amylase [Catalytic activity/Vol] 37 U/L 28 - 100 U/L [employer] Phone: CBC Auto Differentialon - Basophils (Bld) [#/Vol] 0.09 10*3/uL [employer] Phone: Basophils/100 WBC (Bld) 1 % 0 - 2 % M [facility] Phone: Differential Type NOT REPORTED [employer] Phone: Eosinophils (Bld) [#/Vol] 0.09 10*3/uL [employer] Phone: Eosinophils/100 WBC (Bld) 1 % 1 - 4 % [employer] Phone: Erythrocyte distribution width (RBC) [Ratio] 11.9 % 11.8 - 14.4 % [employer] Phone: Hematocrit (Bld) [Volume fraction] 42.3 % 36.3 - 47.1 % [employer] Phone: Hemoglobin (Bld) [Mass/Vol] 13.8 g/dL 11.9 - 15.1 g/dL [employer] Phone: Immature granulocytes (Bld) [#/Vol] 0.03 10*3/uL [employer] Phone: Immature granulocytes (Bld) [#/Vol] 0 % 0 [employer] Phone: Interpretation and review of laboratory results Abnormal [employer] Phone: Lymphocytes (Bld) [#/Vol] 2.38 10*3/uL [employer] Phone: Lymphocytes/100 WBC (Bld) 26 % 24 - 43 % [employer] Phone: MCH (RBC) [Entitic mass] 29.7 pg 25.2 - 33.5 pg [employer] Phone: MCHC (RBC) [Mass/Vol] 32.6 g/dL 28.4 - 34.8 g/dL [employer] Work Phone: MCV (RBC) [Entitic vol] 91.2 fL 82.6 - 102.9 fL [facility] Phone: Monocytes (Bld) [#/Vol] 0.50 10*3/uL [employer] Work Phone: Monocytes/100 WBC (Bld) 6 % 3 - 12 % M [facility] Work Phone: Platelet mean volume (Bld) [Entitic vol] 10.1 fL 8.1 - 13.5 fL [facility] Phone: Platelets (Bld) [#/Vol] NOT REPORTED [facility] Work Phone: Platelets (Bld) [#/Vol] 287 10*3/uL [facility] Work Phone: RBC (Bld) [#/Vol] 4.64 10*6/uL 3.95 - 5.11 m/uL [employer] Work Phone: RBC morphology finding Nom (Bld) NOT REPORTED [facility] Work Phone: Segmented neutrophils/100 WBC (Bld) 66 % High 36 - 65 % [facility] Work Phone: Segs Absolute 5.96 [facility] [employer] Work Phone: WBC (Bld) [#/Vol] 9.1 10*3/uL [employer] Work Phone: WBC (Bld) [#/Vol] 0.0 10*3/uL 0.0 per 100 WBC [employer] Phone: WBC Morphology NOT REPORTED [employer] [facility] Work Phone: Comprehensive Metabolic Pane misti 09-19-2020 Albumin [Mass/Vol] 4.4 g/dL 3.5 - 5.2 g/dL [employer] Phone: Albumin/Globulin [Mass ratio] 1.6 {ratio} [employer] Phone: ALP [Catalytic activity/Vol] 111 U/L High 35 - 104 U/L [employer] Work Phone: ALT [Catalytic activity/Vol] 43 U/L High 5 - 33 U/L [employer] Phone: Anion gap [Moles/Vol] 8 mmol/L Low 9 - 17 mmol/L [employer] Phone: AST [Catalytic activity/Vol] 27 U/L <32 [employer] Phone: Bilirubin Ql (U) 0.28 mg/dL Low 0.3 - 1.2 mg/dL [employer] Phone: Bun/Cre Ratio 9 [employer] Work Phone: Calcium [Mass/Vol] 9.3 mg/dL 8.6 - 10. 4 mg/dL [employer] Phone: Chloride [Moles/Vol] 103 mmol/L 98 - 10 7 mmol/L [employer] Phone: CO2 [Moles/Vol] 27 mmol/L 20 - 31 mmol/L [employer] Work Phone: Creatinine [Mass/Vol] 0.67 mg/dL 0.5 - 0.9 mg/dL [employer] Phone: GFR >60 >60 mL/min [employer] Phone: GFR Non- >60 >60 mL/min [employer] Phone: Glucose [Mass/Vol] 108 mg/dL High 70 - 99 mg/dL [employer] Work Phone: Interpretation and review of laboratory results Abnormal [employer] Phone: Potassium [Moles/Vol] 3.6 mmol/L Low 3.7 - 5.3 mmol/L [employer] Phone: Protein [Mass/Vol] 7.2 g/dL 6.4 - 8.3 g/dL [employer] Phone: Sodium [Moles/Vol] 138 mmol/L 135 - 144 mmol/L [employer] Phone: Urea nitrogen [Mass/Vol] 6 mg/dL 6 - 20 mg/dL [employer] Phone: Lipaseon 09-19-2020 Lipase [Catalytic activity/Vol] 23 U/L 13 - 60 U/L [employer] Phone: Metabolic Panelon 09-19-2020 GFR/1.73 sq M predicted among non-blacks MDRD (S/P/Bld) [Vol rate/Area] [employer] Phone: Comment on above: Stage 1: Some [...] body mass. Additional eGFR calculator available at: http://www.intelworks.skedge.me/multiple_crcl_2012.htm Sedimentation Rateon 021 Sed Rate 11 mm 0 - 20 mm [employer] Phone: Urinalysis With Microscopico n 09-19-2020 Amorphous, UA NOT REPORTED None [facility] Work Phone: Bacteria, UA TRACE Abnormal None [employer] Phone: Bilirubin Urine Negative NEGATIVE [facility] Work Phone: Casts UA NOT REPORTED /LPF [facility] [employer] Work Phone: Color, UA YELLOW YELLOW [facility] Work Phone: Crystals, UA NOT REPORTED None /HPF [facility] Work Phone: Epithelial Cells UA 0 TO 2 [facility] [employer] Work Phone: Glucose, Ur Negative NEGATIVE [facility] Work Phone: Interpretation and review of laboratory results Abnormal [facility] [employer] Work Phone: Ketones Ql (U) Negative NEGATIVE [facility] Work Phone: Leukocyte esterase Test strip Ql (U) Negative NEGATIVE [facility] Work Phone: Mucus, UA NOT REPORTED None [facility] Work Phone: Nitrite, Urine Negative NEGATIVE [facility] Work Phone: Other Observations UA NOT REPORTED NOT REQ. M [facility] [employer] Work Phone: pH, UA 6.0 [facility] [employer] Work Phone: Protein (U) [Mass/Vol] Negative NEGATIVE [facility] Work Phone: RBC (U) [#/Vol] None [facility] Work Phone: Renal Epithelial, UA NOT REPORTED 0 /HPF [facility] Work Phone: Specific Russell, UA 1.010 [facility] [employer] Work Phone: Trichomonas, UA NOT REPORTED None [facility] [employer] Work Phone: Turbidity UA CLEAR CLEAR [facility] Work Phone: Urinalysis Comments NOT REPORTED [facility] Work Phone: Urine Hgb Negative NEGATIVE [facility] Work Phone: Urobilinogen, Urine Normal Normal [employer] Phone: WBC, UA 0 TO 2 [employer] Phone: Yeast, UA NOT REPORTED None [employer] Phone: - [employer] Work Phone: Basic Metabolic Panel w/ Ref golden to MGon 08-29-2020 Anion gap [Moles/Vol] 7 mmol/L Low 9 - 17 mmol/L [employer] Work Phone: Bun/Cre Ratio 8 Low [employer] Work Phone: Calcium [Mass/Vol] 8.0 mg/dL Low 8.6 - 10. 4 mg/dL [employer] Phone: Chloride [Moles/Vol] 109 mmol/L High 98 - 10 7 mmol/L [employer] Phone: CO2 [Moles/Vol] 23 mmol/L 20 - 31 mmol/L [employer] Phone: Creatinine [Mass/Vol] 0.49 mg/dL Low 0.5 - 0.9 mg/dL [employer] Phone: GFR >60 >60 mL/min [employer] Phone: GFR Non- >60 >60 mL/min [employer] Phone: Glucose [Mass/Vol] 114 mg/dL High 70 - 99 mg/dL [employer] Phone: Interpretation and review of laboratory results Abnormal [employer] Phone: Potassium [Moles/Vol] 3.8 mmol/L 3.7 - 5.3 mmol/L [employer] Phone: Sodium [Moles/Vol] 139 mmol/L 135 - 144 mmol/L [employer] Phone: Urea nitrogen [Mass/Vol] 4 mg/dL Low 6 - 20 mg/dL [employer] Phone: CBC auto differentialon 08-19 Basophils (Bld) [#/Vol] 0.03 10*3/uL [employer] Phone: Basophils/100 WBC (Bld) 0 % 0 - 2 % M [employer] Phone: Differential Type NOT REPORTED [employer] Phone: Eosinophils (Bld) [#/Vol] 0.08 10*3/uL [employer] Phone: Eosinophils/100 WBC (Bld) 1 % 1 - 4 % [employer] Phone: Erythrocyte distribution width (RBC) [Ratio] 12.0 % 11.8 - 14.4 % [employer] Phone: Hematocrit (Bld) [Volume fraction] 36.4 % 36.3 - 47.1 % [employer] Phone: Hemoglobin (Bld) [Mass/Vol] 12.1 g/dL 11.9 - 15.1 g/dL [employer] Phone: Immature granulocytes (Bld) [#/Vol] 1 % High 0 [employer] Phone: Immature granulocytes (Bld) [#/Vol] 0.04 10*3/uL [employer] Phone: Interpretation and review of laboratory results Abnormal [employer] Phone: Lymphocytes (Bld) [#/Vol] 2.26 10*3/uL [employer] Phone: Lymphocytes/100 WBC (Bld) 31 % 24 - 43 % [employer] Phone: MCH (RBC) [Entitic mass] 30.4 pg 25.2 - 33.5 pg [employer] Phone: MCHC (RBC) [Mass/Vol] 33.2 g/dL 28.4 - 34.8 g/dL [employer] Phone: MCV (RBC) [Entitic vol] 91.5 fL 82.6 - 102.9 fL [facility] Monocytes (Bld) [#/Vol] 0.55 10*3/uL [facility]: Monocytes/100 WBC (Bld) 8 % 3 - 12 % M [facility] [employer] Work Phone: Platelet mean volume (Bld) [Entitic vol] 10.2 fL 8.1 - 13.5 fL [facility] Phone: Platelets (Bld) [#/Vol] NOT REPORTED [facility] Platelets (Bld) [#/Vol] 255 10*3/uL [facility] [employer] Phone: RBC (Bld) [#/Vol] 3.98 10*6/uL 3.95 - 5.11 m/uL [facility]: RBC morphology finding Nom (Bld) NOT REPORTED [facility] [employer] Phone: Segmented neutrophils/100 WBC (Bld) 59 % 36 - 65 % [facility]: Segs Absolute 4.30 [employer] [facility] Work Phone: WBC (Bld) [#/Vol] 7.3 10*3/uL [facility] [employer] Work Phone: WBC (Bld) [#/Vol] 0.0 10*3/uL 0.0 per 100 WBC [facility]: WBC Morphology NOT REPORTED [employer] [facility] Work Phone: Metabolic Panelon 08-29-2020 GFR/1.73 sq M predicted among non-blacks MDRD (S/P/Bld) [Vol rate/Area] [facility]: Comment on above: Average GFR for 40-4 9 years old: 99 mL/min/1.73sq m Chronic Kidney Disease: <60 mL/min/1.73sq m Kidney failure: <15 mL/min/1.73sq m eGFR calculated using average adult body mass. Additional eGFR calculator available at: http://www.RaveMobileSafety.com/multiple_crcl_2012.htm Stage 1: Some kidney damage normal GFR Stage 2: Mild kidney damage GFR 60-89 Stage 3: Moderate kidney damage GFR 30-59 Stage 4: Severe kidney damage GFR 15-29 Stage 5: Severe kidney damage GFR <15 ESRD - chronic treatment by dialysis or transplant Basic Metabolic Panel w/ Ref golden to MGon 08-28-2020 Anion gap [Moles/Vol] 9 mmol/L 9 - 17 mmol/L [employer] Phone: Bun/Cre Ratio 9 [employer] Work Phone: Calcium [Mass/Vol] 8.0 mg/dL Low 8.6 - 10. 4 mg/dL [employer] Phone: Chloride [Moles/Vol] 100 mmol/L 98 - 10 7 mmol/L [employer] Phone: CO2 [Moles/Vol] 23 mmol/L 20 - 31 mmol/L [employer] Phone: Creatinine [Mass/Vol] 0.56 mg/dL 0.5 - 0.9 mg/dL [employer] Phone: GFR >60 >60 mL/min [employer] Phone: GFR Non- >60 >60 mL/min [employer] Phone: Glucose [Mass/Vol] 100 mg/dL High 70 - 99 mg/dL [employer] Phone: Interpretation and review of laboratory results Abnormal [employer] Phone: Potassium [Moles/Vol] 3.4 mmol/L Low 3.7 - 5.3 mmol/L [employer] Phone: Sodium [Moles/Vol] 132 mmol/L Low 135 - 144 mmol/L [employer] Phone: Urea nitrogen [Mass/Vol] 5 mg/dL Low 6 - 20 mg/dL [employer] Phone: C.trachomatis N.gonorrhoeae DNAon 08-28-2020 C. trachomatis DNA FAUSTINA+probe Ql (Genital specimen) Negative NEGATIVE [employer] Phone: Comment on above: CHLAMYDIA TRACHOMATI S [...] acid target. N. gonorrhoeae DNA Negative NEGATIVE [employer] Phone: Comment on above: NEISSERIA GONORRHOEA E [...] alternative nucleic acid target. Specimen Description .CERVIX [employer] Phone: CBC auto differentialon 08-19 Basophils (Bld) [#/Vol] 0.04 10*3/uL [employer] Phone: Basophils/100 WBC (Bld) 1 % 0 - 2 % [facility]: Differential Type NOT REPORTED [employer] Phone: Eosinophils (Bld) [#/Vol] 0.08 10*3/uL [employer] Phone: Eosinophils/100 WBC (Bld) 1 % 1 - 4 % [employer] Phone: Erythrocyte distribution width (RBC) [Ratio] 11.9 % 11.8 - 14.4 % [employer] Phone: Hematocrit (Bld) [Volume fraction] 37.0 % 36.3 - 47.1 % [employer] Phone: Hemoglobin (Bld) [Mass/Vol] 12.3 g/dL 11.9 - 15.1 g/dL [employer] Phone: Immature granulocytes (Bld) [#/Vol] 0 % 0 [employer] Phone: Immature granulocytes (Bld) [#/Vol] 10*3/uL [employer] Phone: Lymphocytes (Bld) [#/Vol] 1.87 10*3/uL [employer] Phone: Lymphocytes/100 WBC (Bld) 31 % 24 - 43 % [employer] Phone: MCH (RBC) [Entitic mass] 30.1 pg 25.2 - 33.5 pg [employer] Phone: MCHC (RBC) [Mass/Vol] 33.2 g/dL 28.4 - 34.8 g/dL [employer] Phone: MCV (RBC) [Entitic vol] 90.5 fL 82.6 - 102.9 fL [employer] Phone: Monocytes (Bld) [#/Vol] 0.40 10*3/uL [employer] Phone: Monocytes/100 WBC (Bld) 7 % 3 - 12 % [employer] Phone: Platelet mean volume (Bld) [Entitic vol] 9.8 fL 8.1 - 13.5 fL [employer] Phone: Platelets (Bld) [#/Vol] 213 10*3/uL [employer] Phone: Platelets (Bld) [#/Vol] NOT REPORTED [employer] Work Phone: RBC (Bld) [#/Vol] 4.09 10*6/uL 3.95 - 5.11 m/uL [employer] Work Phone: RBC morphology finding Nom (Bld) NOT REPORTED [employer] Work Phone: Segmented neutrophils/100 WBC (Bld) 60 % 36 - 65 % [employer] Work Phone: Segs Absolute 3.71 [employer] Work Phone: WBC (Bld) [#/Vol] 6.1 10*3/uL [employer] Work Phone: WBC (Bld) [#/Vol] 0.0 10*3/uL 0.0 per 100 WBC [employer] Work Phone: WBC Morphology NOT REPORTED [employer] Work Phone: CT ABDOMEN PELVIS W IV CONTR AST Additional Contrast? Oralon 08-28-2020 Benoit, Mhpn Incoming Radiant Results From [employer] - 08/28/2020 10:01 AM EST EXAMINATION: CT [...] fluid. 3. Findings compatible with hepatic steatosis. [employer] Phone: EXAMINATION: CT OF T HE ABDOMEN [...] been performed at L3-4, L4-5 and L5-S1. [employer] Phone: 1. No acute inflamma tory process identified in the abdomen or pelvis. 2. Trace pleural effusions and trace pelvic free fluid. 3. Findings compatible with hepatic steatosis. [employer] Phone: Magnesiumon 08-28-2020 Magnesium [Mass/Vol] 2.1 mg/dL 1.6 - 2 .6 mg/dL [employer] Phone: Metabolic Panelon 08-28-2020 GFR/1.73 sq M predicted among non-blacks MDRD (S/P/Bld) [Vol rate/Area] [employer] Phone: Comment on above: Stage 1: Some [...] body mass. Additional eGFR calculator available at: http://www.RaveMobileSafety.com/multiple_crcl_2012.htm Basic Metabolic Panelon Anion gap [Moles/Vol] 9 mmol/L 9 - 17 mmol/L [employer] Phone: Bun/Cre Ratio 11 [employer] Work Phone: Calcium [Mass/Vol] 8.8 mg/dL 8.6 - 10. 4 mg/dL [employer] Phone: Chloride [Moles/Vol] 102 mmol/L 98 - 10 7 mmol/L [employer] Phone: CO2 [Moles/Vol] 23 mmol/L 20 - 31 mmol/L [employer] Phone: Creatinine [Mass/Vol] 0.56 mg/dL 0.5 - 0.9 mg/dL [employer] Phone: GFR >60 >60 mL/min [employer] Phone: GFR Non- >60 >60 mL/min [employer] Phone: Glucose [Mass/Vol] 109 mg/dL High 70 - 99 mg/dL [employer] Phone: Potassium [Moles/Vol] 3.8 mmol/L 3.7 - 5.3 mmol/L [employer] Phone: Sodium [Moles/Vol] 134 mmol/L Low 135 - 144 mmol/L [employer] Phone: Urea nitrogen [Mass/Vol] 6 mg/dL 6 - 20 mg/dL [employer] Phone: CBCon 08-27-2020 Erythrocyte distribution width (RBC) [Ratio] 11.9 % 11.8 - 14.4 % [employer] Phone: Hematocrit (Bld) [Volume fraction] 38.7 % 36.3 - 47.1 % [employer] Phone: Hemoglobin (Bld) [Mass/Vol] 13.0 g/dL 11.9 - 15.1 g/dL [employer] Phone: MCH (RBC) [Entitic mass] 30.3 pg 25.2 - 33.5 pg [employer] Phone: MCHC (RBC) [Mass/Vol] 33.6 g/dL 28.4 - 34.8 g/dL [employer] Phone: MCV (RBC) [Entitic vol] 90.2 fL 82.6 - 102.9 fL [employer] Phone: Platelet mean volume (Bld) [Entitic vol] 10.1 fL 8.1 - 13.5 fL [employer] Phone: Platelets (Bld) [#/Vol] 250 10*3/uL [employer] Phone: RBC (Bld) [#/Vol] 4.29 10*6/uL 3.95 - 5.11 m/uL [employer] Phone: WBC (Bld) [#/Vol] 0.0 10*3/uL 0.0 per 100 WBC [employer] Phone: WBC (Bld) [#/Vol] 7.3 10*3/uL [employer] Phone: CBC auto differentialon 020 Basophils (Bld) [#/Vol] 0.04 10*3/uL [employer] Phone: Basophils/100 WBC (Bld) 1 % 0 - 2 % M [employer] Phone: Differential Type NOT REPORTED [employer] Phone: Eosinophils (Bld) [#/Vol] 0.07 10*3/uL [employer] Phone: Eosinophils/100 WBC (Bld) 1 % 1 - 4 % [employer] Phone: Erythrocyte distribution width (RBC) [Ratio] 11.8 % 11.8 - 14.4 % [employer] Phone: Hematocrit (Bld) [Volume fraction] 36.1 % Low 36.3 - 47.1 % [employer] Phone: Hemoglobin (Bld) [Mass/Vol] 12.2 g/dL 11.9 - 15.1 g/dL [employer] Phone: Immature granulocytes (Bld) [#/Vol] 0 % 0 [employer] Phone: Immature granulocytes (Bld) [#/Vol] 10*3/uL [employer] Phone: Interpretation and review of laboratory results Abnormal [employer] Phone: Lymphocytes (Bld) [#/Vol] 2.26 10*3/uL [employer] Phone: Lymphocytes/100 WBC (Bld) 26 % 24 - 43 % [employer] Work Phone: MCH (RBC) [Entitic mass] 30.4 pg 25.2 - 33.5 pg [employer] Phone: MCHC (RBC) [Mass/Vol] 33.8 g/dL 28.4 - 34.8 g/dL [employer] Phone: MCV (RBC) [Entitic vol] 90.0 fL 82.6 - 102.9 fL [employer] Work Phone: Monocytes (Bld) [#/Vol] 0.43 10*3/uL [employer] Phone: Monocytes/100 WBC (Bld) 5 % 3 - 12 % M [employer] Work Phone: Platelet mean volume (Bld) [Entitic vol] 9.9 fL 8.1 - 13.5 fL [employer] Phone: Platelets (Bld) [#/Vol] 225 10*3/uL [employer] Phone: Platelets (Bld) [#/Vol] NOT REPORTED [facility]: RBC (Bld) [#/Vol] 4.01 10*6/uL 3.95 - 5.11 m/uL [employer] Phone: RBC morphology finding Nom (Bld) NOT REPORTED [facility] Work Phone: Segmented neutrophils/100 WBC (Bld) 67 % High 36 - 65 % [facility] Work Phone: Segs Absolute 5.82 [employer] Work Phone: WBC (Bld) [#/Vol] 8.6 10*3/uL [employer] Phone: WBC (Bld) [#/Vol] 0.0 10*3/uL 0.0 per 100 WBC [employer] Phone: WBC Morphology NOT REPORTED [employer] Work Phone: CT ABDOMEN PELVIS W IV [...] unremarkable. There is no acute osseous abnormality. [employer] Work Phone: No acute abdominal o r pelvic abnormality. Hepatic steatosis. Cholecystectomy and hysterectomy. [employer] Phone: Benoit, Mhpn Incoming Radiant Results From [employer] - 08/27/2020 9:01 AM EST EXAMINATION: CT [...] pelvic abnormality. Hepatic steatosis. Cholecystectomy and hysterectomy. [employer] Phone: Hepatic function panelon Albumin [Mass/Vol] 4.1 g/dL 3.5 - 5.2 g/dL [employer] Phone: Albumin/Globulin [Mass ratio] 1.6 {ratio} [employer] Phone: ALP [Catalytic activity/Vol] 95 U/L 35 - 104 U/L [employer] Phone: ALT [Catalytic activity/Vol] 35 U/L High 5 - 33 U/L [employer] Phone: AST [Catalytic activity/Vol] 27 U/L <32 [employer] Phone: Bilirubin Ql (U) 0.32 mg/dL 0.3 - 1.2 mg/dL [employer] Phone: Bilirubin, Indirect CANNOT BE CALCULATED 0 - 1 mg/dL [employer] Phone: Bilirubin.direct [Mass/Vol] mg/dL <0.31 mg/dL [employer] Phone: Globulin (S) [Mass/Vol] NOT REPORTED 1.5 - 3.8 g/dL [employer] Phone: Protein [Mass/Vol] 6.7 g/dL 6.4 - 8.3 g/dL [employer] Phone: Lactic acid, plasmaon 2020 Lactate [Moles/Vol] 1.2 mmol/L 0.5 - 2. 2 mmol/L [employer] Phone: Lactic Acid, Whole Blood NOT REPORTED 0.7 - 2.1 mmol/L [employer] Phone: Lipaseon 08-27-2020 Lipase [Catalytic activity/Vol] 24 U/L 13 - 60 U/L [employer] Phone: Metabolic Panelon 08-27-2020 GFR/1.73 sq M predicted among non-blacks MDRD (S/P/Bld) [Vol rate/Area] [employer] Phone: Comment on above: Stage 1: Some [...] body mass. Additional eGFR calculator available at: http://www.intelworks.skedge.me/multiple_crcl_2012.htm Microscopic Urinalysison Amorphous, UA NOT REPORTED None [facility] Work Phone: Bacteria, UA NOT REPORTED None [facility] Work Phone: Casts UA NOT REPORTED /LPF [facility] Work Phone: Crystals, UA NOT REPORTED None /HPF [facility] Work Phone: Epithelial Cells UA 10 TO 20 [facility] Work Phone: Mucus, UA NOT REPORTED None [facility] Work Phone: Other Observations UA NOT REPORTED NOT REQ. M [facility] Work Phone: RBC (U) [#/Vol] None [facility] Work Phone: Renal Epithelial, UA NOT REPORTED 0 /HPF [facility] Work Phone: Trichomonas, UA NOT REPORTED None [facility] Work Phone: WBC, UA 0 TO 2 [facility] Work Phone: Yeast, UA NOT REPORTED None [facility] Work Phone: - [facility] Work Phone: Otheron 08-27-2020 Interpretation and review of laboratory results Abnormal [facility] Work Phone: Urinalysis Reflex to Culture on 08-27-2020 Bilirubin Urine Negative NEGATIVE [facility] Work Phone: Color, UA YELLOW YELLOW [facility] Work Phone: Glucose, Ur Negative NEGATIVE [facility] Work Phone: Interpretation and review of laboratory results Abnormal [facility] Work Phone: Ketones Ql (U) Negative NEGATIVE [facility] Work Phone: Leukocyte esterase Test strip Ql (U) Negative NEGATIVE [facility] Work Phone: Nitrite, Urine Negative NEGATIVE [facility] Work Phone: pH, UA 5.5 [facility] Work Phone: Protein (U) [Mass/Vol] Negative NEGATIVE [facility] Work Phone: Specific Russell, UA 1.025 High [facility] [employer] Work Phone: Turbidity UA CLEAR CLEAR [facility] Work Phone: Urinalysis Comments NOT REPORTED [facility] [employer] Work Phone: Urine Hgb Negative NEGATIVE [facility] [employer] Work Phone: Urobilinogen, Urine Normal Normal [facility] [employer] Phone: Wet Prep, Genitalon 08-27-19 Direct Exam NO TRICHOMONAS SEEN [facility] [employer] Phone: Direct Exam NO CLUE CELLS SEEN [facility] [employer] Phone: Special Requests NOT REPORTED [facility] [employer] Phone: Specimen Description .VAGINA [facility] [employer] Work Phone: Lipid Panelon 07-05-2020 Cholesterol [Mass/Vol] 151 mg/dL <200 [place], [place] Comment on above: Cholesterol Guidelines: <200 Desirable 200-240 Borderline >240 Undesirable Cholesterol in HDL [Mass/Vol] 29 mg/dL Low >40 [place] Comment on above: HDL Guidelines: <40 Undesirable 40-59 Borderline >59 Desirable Cholesterol in LDL [Mass/Vol] 47 mg/dL 0 - 130 mg/dL [place] Comment on above: LDL Guidelines: <100 Desirable 100-129 Near to/above Desirable 130-159 Borderline >159 Undesirable Direct (measured) LDL and calculated LDL are not interchangeable tests. Cholesterol in VLDL [Mass/Vol] NOT REPORTED High 1 - 30 mg/dL [place] Cholesterol.total/Audelia sterol in HDL [Mass ratio] 5.2 {ratio} High <5 [place] Interpretation and review of laboratory results Abnormal [place] Triglyceride [Mass/Vol] 377 mg/dL High <150 M [place], [place] Comment on above: Triglyceride Guidelines: <150 Desirable 150-199 Borderline 200-499 High >499 Very high Based on AHA Guidelines for fasting triglyceride, April 2012. Basic Metabolic Panelon 06-18 Anion gap [Moles/Vol] 8 mmol/L Low 9 - 17 mmol/L [place] Bun/Cre Ratio 16 [place] Calcium [Mass/Vol] 9.1 mg/dL 8.6 - 10. 4 mg/dL [place] Chloride [Moles/Vol] 105 mmol/L 98 - 10 7 mmol/L [place] CO2 [Moles/Vol] 24 mmol/L 20 - 31 mmol/L [place] Creatinine [Mass/Vol] 0.64 mg/dL 0.5 - 0.9 mg/dL [place] GFR >60 >60 mL/min [place] GFR Non- >60 >60 mL/min [place] Glucose [Mass/Vol] 99 mg/dL 70 - 99 mg/dL [place] Interpretation and review of laboratory results Abnormal [place] Potassium [Moles/Vol] 4.3 mmol/L 3.7 - 5.3 mmol/L [place] Sodium [Moles/Vol] 137 mmol/L 135 - 144 mmol/L [place] Urea nitrogen [Mass/Vol] 10 mg/dL 6 - 20 mg/dL [place] CBCon 07-04-2020 Erythrocyte distribution width (RBC) [Ratio] 11.8 % 11.8 - 14.4 % [place] Hematocrit (Bld) [Volume fraction] 37.2 % 36.3 - 47.1 % [place] Hemoglobin (Bld) [Mass/Vol] 12.5 g/dL 11.9 - 15.1 g/dL [place] MCH (RBC) [Entitic mass] 30.9 pg 25.2 - 33.5 pg [place] MCHC (RBC) [Mass/Vol] 33.6 g/dL 28.4 - 34.8 g/dL [place] MCV (RBC) [Entitic vol] 91.9 fL 82.6 - 102.9 fL [place] Platelet mean volume (Bld) [Entitic vol] 10.1 fL 8.1 - 13.5 fL [place] Platelets (Bld) [#/Vol] 289 10*3/uL [place] RBC (Bld) [#/Vol] 4.05 10*6/uL 3.95 - 5.11 m/uL [place] WBC (Bld) [#/Vol] 0.0 10*3/uL 0.0 per 100 WBC [place] WBC (Bld) [#/Vol] 6.8 10*3/uL [place] Echo 2D w doppler w [facility] Transthoracic Echocardiography Report (TTE) Patient Name ADRIÁN Date of Study 07/04/2020 MIKE N Date of 1975 Gender Female Age 44 year(s) Race Room Number Height: 64 inch, 162.56 cm Corporate ID [id number] Weight: 192 pounds, 87.1 kg # Patient Acct [id number] BSA: 1.92 m^2 BMI: 32.96 # kg/m^2 MR # [id number] 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 Procedure Date Date: 07/04/2020 Start: 11:51 AM Study Location: [facility] Indications:Chest pain and Palpitations. History / [...] from this study. 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 Procedure Date Date: 07/04/2020 Start: 11:51 AM Study Location: [facility] Indications:Chest pain and Palpitations. History / [...] Wall E' velocity:0.12 m/s Lateral Wall E/E':4.86 [place] Metabolic Panelon 07-04-2020 GFR/1.73 sq M predicted among non-blacks MDRD (S/P/Bld) [Vol rate/Area] [place] Comment on above: Stage 1: Some [...] body mass. Additional eGFR calculator available at: http://www.RaveMobileSafety.com/multiple_crcl_2012.htm APTTon 06-17-2020 aPTT Coag (Bld) [Time] 28.3 s [place] Comment on above: IV Heparin Therapy Range: 62.0-94.0 Brain Natriuretic Peptideon 06-17-2020 Natriuretic peptide B (Bld) [Mass/Vol] Pro-BNP Reference Range: [place], [place] Comment on above: Rule Out: <300 [place] Zone: Age <50 300-450 Age 50-75 300-900 Age >75 300-1800 Usually represents mild to moderate HF but other cardiopulmonary causes cannot be ruled out. Rule In: Age <50 >450 Age 50-75 >900 Age >75 >1800 Natriuretic peptide B (Bld) [Mass/Vol] 59 pg/mL <300 [place] Comment on above: Pro-BNP results alirio ot be compared to BNP results. CBC Auto Differentialon 05-21 Basophils (Bld) [#/Vol] 10*3/uL [place] Basophils/100 WBC (Bld) 0 % 0 - 2 % [place] Differential Type NOT REPORTED [place] Eosinophils (Bld) [#/Vol] 10*3/uL [place] Eosinophils/100 WBC (Bld) 0 % Low 1 - 4 % [place] Erythrocyte distribution width (RBC) [Ratio] 12.0 % 11.8 - 14.4 % [place] Hematocrit (Bld) [Volume fraction] 38.2 % 36.3 - 47.1 % [place] Hemoglobin (Bld) [Mass/Vol] 13.0 g/dL 11.9 - 15.1 g/dL [place] Immature granulocytes (Bld) [#/Vol] 0 % 0 [place] Immature granulocytes (Bld) [#/Vol] 10*3/uL [place] Interpretation and review of laboratory results Abnormal [place] Lymphocytes (Bld) [#/Vol] 1.51 10*3/uL [place] Lymphocytes/100 WBC (Bld) 31 % 24 - 43 % [place] MCH (RBC) [Entitic mass] 30.6 pg 25.2 - 33.5 pg [place] MCHC (RBC) [Mass/Vol] 34.0 g/dL 28.4 - 34.8 g/dL [place] MCV (RBC) [Entitic vol] 89.9 fL 82.6 - 102.9 fL [place] Monocytes (Bld) [#/Vol] 0.55 10*3/uL [place] Monocytes/100 WBC (Bld) 11 % 3 - 12 % [place] Platelet mean volume (Bld) [Entitic vol] 9.9 fL 8.1 - 13.5 fL [place] Platelets (Bld) [#/Vol] NOT REPORTED [place] Platelets (Bld) [#/Vol] 198 10*3/uL [place] RBC (Bld) [#/Vol] 4.25 10*6/uL 3.95 - 5.11 m/uL [place] RBC morphology finding Nom (Bld) NOT REPORTED [place] Segmented neutrophils/100 WBC (Bld) 58 % 36 - 65 % [place] Segs Absolute 2.69 [place] WBC (Bld) [#/Vol] 0.0 10*3/uL 0.0 per 100 WBC [place] WBC (Bld) [#/Vol] 4.8 10*3/uL [place] WBC Morphology NOT REPORTED [place] Comprehensive Metabolic Pane l w/ Reflex to MGon 06-17-2020 Albumin [Mass/Vol] 4 g/dL 3.5 - 5.2 g/dL [place] Albumin/Globulin [Mass ratio] 1.5 {ratio} [place] ALP [Catalytic activity/Vol] 109 U/L High 35 - 104 U/L [place] ALT [Catalytic activity/Vol] 88 U/L High 5 - 33 U/L [place] Anion gap [Moles/Vol] 8 mmol/L Low 9 - 17 mmol/L [place] AST [Catalytic activity/Vol] 71 U/L High <32 [place] Bilirubin Ql (U) 0.29 mg/dL Low 0.3 - 1.2 mg/dL [place] Bun/Cre Ratio 9 [place] Calcium [Mass/Vol] 8.7 mg/dL 8.6 - 10. 4 mg/dL [place] Chloride [Moles/Vol] 107 mmol/L 98 - 10 7 mmol/L [place] CO2 [Moles/Vol] 23 mmol/L 20 - 31 mmol/L [place] Creatinine [Mass/Vol] 0.57 mg/dL 0.5 - 0.9 mg/dL [place] GFR >60 >60 mL/min [place] GFR Non- >60 >60 mL/min [place] Glucose [Mass/Vol] 119 mg/dL High 70 - 99 mg/dL [place] Interpretation and review of laboratory results Abnormal [place] Potassium [Moles/Vol] 3.7 mmol/L 3.7 - 5.3 mmol/L [place] Protein [Mass/Vol] 6.6 g/dL 6.4 - 8.3 g/dL [place] Sodium [Moles/Vol] 138 mmol/L 135 - 144 mmol/L [place] Urea nitrogen [Mass/Vol] 5 mg/dL Low 6 - 20 mg/dL [place] Metabolic Panelon 06-17-2020 GFR/1.73 sq M predicted among non-blacks MDRD (S/P/Bld) [Vol rate/Area] [place] Comment on above: Average GFR for 40-4 9 years old: 99 mL/min/1.73sq m Chronic Kidney Disease: <60 mL/min/1.73sq m Kidney failure: <15 mL/min/1.73sq m eGFR calculated using average adult body mass. Additional eGFR calculator available at: http://www.RaveMobileSafety.com/multiple_crcl_2012.htm Stage 1: Some kidney damage normal GFR Stage 2: Mild kidney damage GFR 60-89 Stage 3: Moderate kidney damage GFR 30-59 Stage 4: Severe kidney damage GFR 15-29 Stage 5: Severe kidney damage GFR <15 ESRD - chronic treatment by dialysis or transplant Protime-INRon 06-17-2020 INR Coag (PPP) [Relative time] 0.9 {INR} [place], [place] Comment on above: Non-therapeutic Range: INR = 0.9-1.2 Therapeutic Range: Moderate Anticoagulant Intensity: INR = 2.0-3.0 High Anticoagulant Intensity: INR = 2.5-3.5 PT Coag (PPP) [Time] 12.4 s [place] Troponinon 06-17-2020 Troponin I.cardiac [Mass/Vol] NOT REPORTED [place] Troponin T.cardiac [Mass/Vol] NOT REPORTED <0.03 ng/mL [place] Troponin, High Sensitivity 6 ng/L 0 - 14 ng/L [place] Comment on above: High Sensitivity Troponin values cannot be compared with other Troponin methodologies. Patients with high levels of Biotin oral intake (i.e >5mg/day) may have falsely decreased Troponin levels. Samples collected within 8 hours of biotin intake may require additional information for diagnosis. Troponin I.cardiac [Mass/Vol] NOT REPORTED [place] Troponin T.cardiac [Mass/Vol] NOT REPORTED <0.03 ng/mL [place] Troponin, High Sensitivity <6 0 - 14 ng/L [place] Comment on above: High Sensitivity Troponin values cannot be compared with other Troponin methodologies. Patients with high levels of Biotin oral intake (i.e >5mg/day) may have falsely decreased Troponin levels. Samples collected within 8 hours of biotin intake may require additional information for diagnosis. XR CHEST PORTABLEon 06-17-20 20 [place], [place] Incoming Radiant Results From [facility] - 06/17/2020 10:47 AM EST EXAMINATION: ONE XRAY VIEW OF THE CHEST 06/17/2020 10:40 am COMPARISON: 12/28/2019 HISTORY: ORDERING SYSTEM PROVIDED HISTORY: Cp TECHNOLOGIST PROVIDED HISTORY: Cp FINDINGS: The cardiomediastinal silhouette is within normal limits. There is no consolidation, pneumothorax or evidence for edema. No evidence for effusion. No acute osseous abnormality is identified. IMPRESSION: No acute airspace disease identified. [place] EXAMINATION: ONE XRA Y VIEW OF THE CHEST 06/17/2020 10:40 am COMPARISON: 12/28/2019 HISTORY: ORDERING SYSTEM PROVIDED HISTORY: Cp TECHNOLOGIST PROVIDED HISTORY: Cp FINDINGS: The cardiomediastinal silhouette is within normal limits. There is no consolidation, pneumothorax or evidence for edema. No evidence for effusion. No acute osseous abnormality is identified. [place] No acute airspace disease identified. [place] Laboratory - Microbiology an d Antimicrobial susceptibilityOrdered By: Tao Reece on 06-04-2020 SARS-CoV-2 (COVID-19) RNA FAUSTINA+probe Ql (Resp) Not detected (Not Detected ) [facility] Work Phone: Comment on above: Note: [...] SARS-CoV-2 virusand/or diagnosis of COVID-19 infection under iniohmq926(b)(1) of the Act, 21 U.S.C. 360bbb-3(b) (1), [...] 06-04-2020 SARS-CoV-2, FAUSTINA Not Detected (Not Detected) [facility] Work Phone: Comment on above: Note: [...] SARS-CoV-2 virusand/or diagnosis of COVID-19 infection under (b)(1) of the Act, 21 U.S.C. 360bbb-3(b) (1), [...] detected (Not Detected ) [facility] Work Phone: Comment on above: Note: This nucleic a deepti amplification test was developed and itsperformance characteristics determined by [employer]. Nucleic acid amplification tests include PCRand TMA. This test has not been FDA cleared or approved.This test has been authorized by FDA under an Emergency UseAuthorization (EUA). This test is only authorized forthe duration of time the declaration that circumstancesexist justifying the authorization of the emergency use ofin vitro diagnostic tests for detection of SARS-CoV-2 virusand/or diagnosis of COVID-19 infection under (b)(1) of the Act, 21 U.S.C. 360bbb-3(b) (1), [...] 05-02-2020 SARS-CoV-2, FAUSTINA Not Detected (Not Detected) [facility] Work Phone: Comment on above: Note: This nucleic a deepti amplification test was developed and itsperformance characteristics determined by [employer]. Nucleic acid amplification tests include PCRand TMA. This test has not been FDA cleared or approved.This test has been authorized by FDA under an Emergency UseAuthorization (EUA). This test is only authorized forthe duration of time the declaration that circumstancesexist justifying the authorization of the emergency use ofin vitro diagnostic tests for detection of SARS-CoV-2 virusand/or diagnosis of COVID-19 infection under (b)(1) of the Act, 21 U.S.C. 360bbb-3(b) (1), [...] acute osseous abnormality or foreign body identified. [place] EXAMINATION: TWO XRA Y VIEWS OF [...] maintained. No discrete soft tissue abnormality identified. [place] Incoming Radiant Results From [facility] - 04/28/2020 4:26 PM EDT EXAMINATION: TWO [...] acute osseous abnormality or foreign body identified. [place] Estradiolon 02-14-2020 Estradiol <5 Low 27 - 314 pg/mL [place] Comment on above: FEMALES: Normally menstruating Luteal phase 33-298 Follicular phase 27-156 Midcycle phase 48-314 Postmenopausal (untreated) 5-50 Fulvestrant treatment will show an increased estradiol concentration with this methodology. Alternate methodologies are available upon request. Interpretation and review of laboratory results Abnormal [place] Follicle Stimulating Hormone on 02-14-2020 FSH 40.4 U/L High 1.7 - 21.5 U/L [place] Comment on above: Reference Range: Male: 1.5-12.4 Ovulating Female: Follicular Phase 3.5-12.5 Ovulation Phase 4.7-21.5 Luteal Phase 1.7-7.7 Postmenopausal Female: 25.8-134.8 Interpretation and review of laboratory results Abnormal [place] TSH with Reflexon 02-14-2020 TSH Qn 2.33 m[IU]/L [place] Activated clotting timeon Activated Clotting Time 289 High M [place], [place] Interpretation and review of laboratory results Abnormal [place] Basic Metabolic Panel w/ Ref golden to MGon 12-29-2019 Anion gap [Moles/Vol] 13 mmol/L 9 - 17 mmol/L [place] Bun/Cre Ratio 19 [place] Calcium [Mass/Vol] 8.8 mg/dL 8.6 - 10. 4 mg/dL [place] Chloride [Moles/Vol] 109 mmol/L High 98 - 10 7 mmol/L [place] CO2 [Moles/Vol] 20 mmol/L 20 - 31 mmol/L [place] Creatinine [Mass/Vol] 0.63 mg/dL 0.5 - 0.9 mg/dL [place] GFR >60 >60 mL/min [place] GFR Non- >60 >60 mL/min [place] Glucose [Mass/Vol] 113 mg/dL High 70 - 99 mg/dL [place] Interpretation and review of laboratory results Abnormal [place] Potassium [Moles/Vol] 3.8 mmol/L 3.7 - 5.3 mmol/L [place] Sodium [Moles/Vol] 142 mmol/L 135 - 144 mmol/L [place] Urea nitrogen [Mass/Vol] 12 mg/dL 6 - 20 mg/dL [place] COVID-19on 12-29-2019 SARS-CoV-2 [place] SARS-CoV-2, PCR [place] SARS-CoV-2, Rapid Not Detected Not Detected [place] Comment on above: Rapid NAAT: The [...] management decisions. Fact sheet for Healthcare Providers: https://www.fda.gov/media/541246/download Fact sheet for Patients: https://www.fda.gov/media/935378/download Methodology: Isothermal Nucleic Acid Amplification Source .NASOPHARYNGEAL SWAB [place] Cardiac Catheterizationon Cardiac Diagnostic + PCI Report Demographics Patient ADRIÁN Bee Date of Study 12/29/2019 Name Date of 1975 Gender Female Age 44 year(s) Race Room [id number]^EDWINA^MICHAEL Height: 64 inch, 162.56 cm Number Corporate [id number] Weight: 196 pounds, 88.9 kg ID # Patient [id number] BSA: 1.94 m^2 BMI: 33.64 Acct # kg/m^2 MR # [id number] Performing Physician Michael Arroyo Referring Physician # [...] with VALERIY III flow Devices used - [employer] [employer] IVUS [place] Catheter (M Squared Lasers). Number of passes: 1. - ASAHI Prowater [...] S.Q. 10 ml. - Heparin I.V. bolus 10560 units. - Nitroglycerin I.C. 200 mcg. - Nitroglycerin I.C. 200 mcg. - Plavix P.O. 300 mg. Catheters and Wires: - 7F Guide Catheter XB 3.5 was used for Left coronary angiography. Contrast Material: - Optiray 365002 ml Fluoroscopy Time: Diagnostic: 7:58 minutes. Total: [...] assessed as CCS III according to the [place]i clinical classification. Hemodynamics Condition: Baseline Room Air Estimated: 179.59Heart Rate: 50 bpm Pressure +-----+ ---+ !Site !Pressure ! +-----+ ---+ !AO !122/66 (89) ! +-----+ ---+ Shunts Oxygen Values O2 Euvylipv504.96O2 Xipsvnyyhav434.59 [facility] [place] Incoming Cardio Results From [facility]/ - 12/29/2019 3:33 PM EDT Cardiac Diagnostic + PCI Report Demographics Patient ADRIÁN Bee Date of Study 12/29/2019 Name Date of 1975 Gender Female Age 44 year(s) Race Room [id number]^EDWINA^MICHAEL Height: 64 inch, 162.56 cm Number Corporate [id number] Weight: 196 pounds, 88.9 kg ID # Patient [id number] BSA: 1.94 m^2 BMI: 33.64 Acct # kg/m^2 MR # [id number] Performing Physician Michael Arroyo Referring Physician # [...] with VALERIY III flow Devices used - [place] [employer] IVUS [place] Catheter (M Squared Lasers). Number of passes: 1. - ASAHI Prowater [...] S.Q. 10 ml. - Heparin I.V. bolus 45053 units. - Nitroglycerin I.C. 200 mcg. - Nitroglycerin I.C. 200 mcg. - Plavix P.O. 300 mg. Catheters and Wires: - 7F Guide Catheter XB 3.5 was used for Left coronary angiography. Contrast Material: - Optiray [id number] ml Fluoroscopy Time: Diagnostic: 7:58 minutes. Total: [...] assessed as CCS III according to the [place]i clinical classification. Hemodynamics Condition: Baseline Room Air Estimated: 179.59Heart Rate: 50 bpm Pressure +-----+ --- + !Site !Pressure ! +-----+ --- + !AO !122/66 (89) ! +-----+ --- + Shunts Oxygen Values O2 Mlecobpj530.96O2 Otpbssthcrb037.59 [facility] [place], [place] Diagnostic Cardiac Account Developer Procedureon 12-29-2019 Cardiac Diagnostic Report Demographics Patient ADRIÁN Bee Date of Study 12/29/2019 Name Date of 1975 Gender Female Age 44 year(s) Race Room [id number]^LUXCLARK Height: 64 inch, 162.56 cm Number Corporate [id number] Weight: 195 pounds, 88.4 kg ID # Patient [id number] BSA: 1.93 m^2 BMI: 33.45 Acct # kg/m^2 MR # [id number] Performing Physician Ronan Rodriguez Referring Physician # [...] for LV Pressure. Contrast Material: - Isovue 81251 ml Fluoroscopy Time: Diagnostic: 2:01 minutes. Total: [...] assessed as CCS IV according to the Yemeni clinical classification. Hemodynamics Condition: Baseline Room Air [...] --------+---------+----- -----+---------+-------- ---+ Shunts Oxygen Values O2 Gmwlorhg396.96O2 Jsutpfelvln576.16 [facility] [place] Incoming Cardio Results From [facility] - 12/29/2019 1:22 PM EDT Cardiac Diagnostic Report Demographics Patient ADRIÁN Bee Date of Study 12/29/2019 Name Date of 1975 Gender Female Age 44 year(s) Race Room [id number]^MICHAEL^RONAN Height: 64 inch, 162.56 cm Number Corporate [id number] Weight: 195 pounds, 88.4 kg ID # Patient [id number] BSA: 1.93 m^2 BMI: 33.45 Acct # kg/m^2 MR # [id number] Performing Physician Ronan Rodriguez Referring Physician # [...] for LV Pressure. Contrast Material: - Isovue 94253 ml Fluoroscopy Time: Diagnostic: 2:01 minutes. Total: [...] assessed as CCS IV according to the Yemeni clinical classification. Hemodynamics Condition: Baseline Room Air [...] -----+---------+-------- --- + Shunts Oxygen Values O2 Pulicali401.96O2 Fujdteojslz431.16 [facility], [place] EKG 12 leadon 12-29-2019 Atrial Rate 51 BPM [facility] P [place] 57 degrees [facility] P-R Interval 178 ms [facility] Q-T Interval 494 ms [facility] QRS Duration 86 ms [facility] QTc Calculation (Bazett) 455 ms [facility] R [place] 2 degrees [facility] T [place] 26 degrees [facility] Ventricular Rate 51 BPM [facility], [place], [place] Incoming E kg Results From [facility] [place] - 12/29/2019 8:53 AM EDT Sinus bradycardia Otherwise normal ECG When compared with ECG of 09-OCT-2019 03:52, Nonspecific T wave abnormality has replaced inverted T waves in Inferior leads Confirmed by GILMAR RICHTER ([id number]) on 12/29/2019 8:53:10 AM [place] Sinus bradycardia Otherwise normal ECG When compared with ECG of 09-OCT-2019 03:52, Nonspecific T wave abnormality has replaced inverted T waves in Inferior leads Confirmed by GILMAR RICHTER ([id number]) on 12/29/2019 8:53:10 AM [place] Lipid panel - fastingon 12-17 Cholesterol [Mass/Vol] 184 mg/dL <200 [place], [place] Comment on above: Cholesterol Guidelines: <200 Desirable 200-240 Borderline >240 Undesirable Cholesterol in HDL [Mass/Vol] 26 mg/dL Low >40 [place] Comment on above: HDL Guidelines: <40 Undesirable 40-59 Borderline >59 Desirable Cholesterol in LDL [Mass/Vol] 0 - 130 mg/dL [place] Comment on above: Calculation not jacy d for Triglyceride value greater than 400 mg/dL. Direct LDL reflexed LDL Guidelines: <100 Desirable 100-129 Near to/above Desirable 130-159 Borderline >159 Undesirable Direct (measured) LDL and calculated LDL are not interchangeable tests. Cholesterol in VLDL [Mass/Vol] NOT REPORTED 1 - 30 mg/dL [place] Cholesterol.total/Audelia sterol in HDL [Mass ratio] 7.1 {ratio} High <5 [place] Interpretation and review of laboratory results Abnormal [place] Triglyceride [Mass/Vol] 478 mg/dL High <150 M [place] Comment on above: Triglyceride Guidelines: <150 Desirable 150-199 Borderline 200-499 High >499 Very high Based on AHA Guidelines for fasting triglyceride, April 2012. Metabolic Panelon 12-29-2019 GFR/1.73 sq M predicted among non-blacks MDRD (S/P/Bld) [Vol rate/Area] [place] Comment on above: Stage 1: Some [...] body mass. Additional eGFR calculator available at: http://www.intelworks.skedge.me/multiple_crcl_2012.htm CBCon 12-28-2019 Erythrocyte distribution width (RBC) [Ratio] 11.9 % 11.8 - 14.4 % [place] Hematocrit (Bld) [Volume fraction] 39.9 % 36.3 - 47.1 % [place] Hemoglobin (Bld) [Mass/Vol] 13.6 g/dL 11.9 - 15.1 g/dL [place] MCH (RBC) [Entitic mass] 30.4 pg 25.2 - 33.5 pg [place] MCHC (RBC) [Mass/Vol] 34.1 g/dL 28.4 - 34.8 g/dL [place] MCV (RBC) [Entitic vol] 89.3 fL 82.6 - 102.9 fL [place] Platelet mean volume (Bld) [Entitic vol] 10.1 fL 8.1 - 13.5 fL [place] Platelets (Bld) [#/Vol] 263 10*3/uL [place] RBC (Bld) [#/Vol] 4.47 10*6/uL 3.95 - 5.11 m/uL [place] WBC (Bld) [#/Vol] 7.3 10*3/uL [place] WBC (Bld) [#/Vol] 0.0 10*3/uL 0.0 per 100 WBC [place] Comprehensive Metabolic Pane l w/ Reflex to MGon 12-28-2019 Albumin [Mass/Vol] 4.7 g/dL 3.5 - 5.2 g/dL [place] Albumin/Globulin [Mass ratio] 2.0 {ratio} [place] ALP [Catalytic activity/Vol] 112 U/L High 35 - 104 U/L [place] ALT [Catalytic activity/Vol] 61 U/L High 5 - 33 U/L [place] Anion gap [Moles/Vol] 13 mmol/L 9 - 17 mmol/L [place] AST [Catalytic activity/Vol] 48 U/L High <32 [place] Bilirubin Ql (U) 0.42 mg/dL 0.3 - 1.2 mg/dL [place] Bun/Cre Ratio 18 [place], [place] Calcium [Mass/Vol] 9.4 mg/dL 8.6 - 10. 4 mg/dL [place] Chloride [Moles/Vol] 101 mmol/L 98 - 10 7 mmol/L [place] CO2 [Moles/Vol] 22 mmol/L 20 - 31 mmol/L [place] Creatinine [Mass/Vol] 0.62 mg/dL 0.5 - 0.9 mg/dL [place] GFR >60 >60 mL/min [place] GFR Non- >60 >60 mL/min [place] Glucose [Mass/Vol] 93 mg/dL 70 - 99 mg/dL [place] Interpretation and review of laboratory results Abnormal [place] Potassium [Moles/Vol] 4.5 mmol/L 3.7 - 5.3 mmol/L [place] Protein [Mass/Vol] 7.1 g/dL 6.4 - 8.3 g/dL [place] Sodium [Moles/Vol] 136 mmol/L 135 - 144 mmol/L [place] Urea nitrogen [Mass/Vol] 11 mg/dL 6 - 20 mg/dL [place] Metabolic Panelon 12-28-2019 GFR/1.73 sq M predicted among non-blacks MDRD (S/P/Bld) [Vol rate/Area] [place] Comment on above: Stage 1: Some [...] body mass. Additional eGFR calculator available at: http://www.intelworks.skedge.me/multiple_crcl_2012.htm Troponinon 12-28-2019 Troponin I.cardiac [Mass/Vol] NOT REPORTED [place] Troponin T.cardiac [Mass/Vol] NOT REPORTED <0.03 ng/mL [place] Troponin, High Sensitivity <6 0 - 14 ng/L [place] Comment on above: High Sensitivity Troponin [...] Visualized bony thorax shows no acute abnormality. [place] Incoming Radiant Results From [facility] - 12/28/2019 4:16 PM EDT EXAMINATION: TWO [...] acute findings. Stable when compared to previous. [place] Clear chest, no acut e findings. Stable when compared to previous. [place] CBCon 10-10-2019 Erythrocyte distribution width (RBC) [Ratio] 11.9 % 11.8 - 14.4 % [place] Hematocrit (Bld) [Volume fraction] 37.1 % 36.3 - 47.1 % [place] Hemoglobin (Bld) [Mass/Vol] 12.6 g/dL 11.9 - 15.1 g/dL [place] MCH (RBC) [Entitic mass] 30.3 pg 25.2 - 33.5 pg [place] MCHC (RBC) [Mass/Vol] 34.0 g/dL 28.4 - 34.8 g/dL [place] MCV (RBC) [Entitic vol] 89.2 fL 82.6 - 102.9 fL [place] Platelet mean volume (Bld) [Entitic vol] 9.8 fL 8.1 - 13.5 fL [place] Platelets (Bld) [#/Vol] 235 10*3/uL [place] RBC (Bld) [#/Vol] 4.16 10*6/uL 3.95 - 5.11 m/uL [facility] [place] WBC (Bld) [#/Vol] 10.1 10*3/uL [facility] WBC (Bld) [#/Vol] 0.0 10*3/uL 0.0 per 100 WBC [facility] [place] EKG 12 Leadon 10-10-2019 Atrial Rate 87 BPM [facility] [place] P [place] 50 degrees [facility] [place] P-R Interval 162 ms [facility] [place] Q-T Interval 380 ms [facility] [place] QRS Duration 82 ms [facility] [place] QTc Calculation (Bazett) 457 ms [facility] [place] R [place] -5 degrees [facility] [place] T [place] 22 degrees [facility] [place] Ventricular Rate 87 BPM [facility] [place] Incoming E kg Results From [facility] - 10/10/2019 12:56 PM EDT Normal sinus rhythm Normal ECG When compared with ECG of 09-OCT-2019 10:13, Minimal criteria for Anterior infarct are no longer Present [facility] [place] Normal sinus rhythm Normal ECG When compared with ECG of 09-OCT-2019 10:13, Minimal criteria for Anterior infarct are no longer Present [facility] EKG 12 leadon 10-10-2019 Atrial Rate 61 BPM [facility] [place] P [place] 39 degrees [facility] [place] P-R Interval 178 ms [facility] [place] Q-T Interval 446 ms [facility] [place] QRS Duration 78 ms [facility] [place] QTc Calculation (Bazett) 448 ms [facility] [place] R [place] 5 degrees [facility] [place] T [place] 1 degrees [facility] [place] Ventricular Rate 61 BPM [facility] [place] Incoming E kg Results From [facility] - 10/10/2019 12:56 PM EDT Normal sinus rhythm Cannot rule out Anterior infarct , age undetermined Abnormal ECG When compared with ECG of 21-OCT-2018 19:32, No significant change was found [facility] [place] Normal sinus rhythm Cannot rule out Anterior infarct , age undetermined Abnormal ECG When compared with ECG of 21-OCT-2018 19:32, No significant change was found [facility] [place] Echo Completeon 10-10-2019 Transthoracic Echocardiography Report (TTE) Patient Name ADRIÁN Date of Study 10/09/2019 MIKE N Date of 1975 Gender Female Age 43 year(s) Race Room Number 0543 Height: 64 inch, 162.56 cm Corporate ID [id number] Weight: 169 pounds, 76.7 kg # Patient Acct [id number] BSA: 1.82 m^2 BMI: 29.01 kg/m^2 # MR # [id number] Business Intelligence Architect Juli Ramírez Interpreting Physician Heladio Randolph Fellow Referring Nurse Practitioner Interpreting Referring Physician Mary Jane Oconnor MD Fellow Type of Study TTE procedure:2D Echocardiogram, M-Mode, Doppler, Color Doppler, Bubble Study. Procedure Date Date: 10/09/2019 Start: 03:57 PM Study Location: [facility] Technical Quality: Fair visualization History / Tech. [...] Wall E' velocity:0.07 m/s Lateral Wall E/E':9.2 [facility] [place], [place] Incoming Cardio Results From [facility]/ - 10/10/2019 9:55 AM EDT Transthoracic Echocardiography Report (TTE) Patient Name ADRIÁN Date of Study 10/09/2019 MIKE N Date of 1975 Gender Female Age 43 year(s) Race Room Number 0543 Height: 64 inch, 162.56 cm Corporate ID [id number] Weight: 169 pounds, 76.7 kg # Patient Acct [id number] BSA: 1.82 m^2 BMI: 29.01 kg/m^2 # MR # [id number] Business Intelligence Architect Juli Ramírez Interpreting Physician Heladio Randolph Fellow Referring Nurse Practitioner Interpreting Referring Physician Mary Jane Oconnor MD Fellow Type of Study TTE procedure:2D Echocardiogram, M-Mode, Doppler, Color Doppler, Bubble Study. Procedure Date Date: 10/09/2019 Start: 03:57 PM Study Location: [facility] Technical Quality: Fair visualization History / Tech. [...] Wall E' velocity:0.07 m/s Lateral Wall E/E':9.2 [place] HOMOCYSTEINE, SERUMon 2019 Homocysteine 6.4 umol/L <15.0 [place] Troponinon 10-10-2019 Troponin I.cardiac [Mass/Vol] NOT REPORTED [place] Troponin T.cardiac [Mass/Vol] NOT REPORTED <0.03 ng/mL [place] Troponin, High Sensitivity <6 0 - 14 ng/L [place] Comment on above: High Sensitivity Troponin values cannot be compared with other Troponin methodologies. Patients with high levels of Biotin oral intake (i.e >5mg/day) may have falsely decreased Troponin levels. Samples collected within 8 hours of biotin intake may require additional information for diagnosis. Hemoglobin A1con 10-09-2019 Glucose [Mass/Vol] 105 mg/dL [place] Comment on above: The ADA and AACC rec ommend providing the estimated average glucose result to permit better patient understanding of their HBA1c result. HbA1c (Bld) [Mass fraction] 5.3 % 4 - 6 % [place] LDL Cholesterol, Directon Cholesterol in LDL [Mass/Vol] 99 mg/dL <100 [place] Lipid panel - fastingon 09-17 Cholesterol [Mass/Vol] 229 mg/dL High <200 [place] Comment on above: Cholesterol Guidelines: <200 Desirable 200-240 Borderline >240 Undesirable Cholesterol in HDL [Mass/Vol] 27 mg/dL Low >40 [place] Comment on above: HDL Guidelines: <40 Undesirable 40-59 Borderline >59 Desirable Cholesterol in LDL [Mass/Vol] 0 - 130 mg/dL [place] Comment on above: Calculation not jacy d for Triglyceride value greater than 400 mg/dL. Direct LDL reflexed LDL Guidelines: <100 Desirable 100-129 Near to/above Desirable 130-159 Borderline >159 Undesirable Direct (measured) LDL and calculated LDL are not interchangeable tests. Cholesterol in VLDL [Mass/Vol] 1 - 30 mg/dL [place] Cholesterol.total/Audelia sterol in HDL [Mass ratio] 8.5 {ratio} High <5 [place] Interpretation and review of laboratory results Abnormal [place] Triglyceride [Mass/Vol] 586 mg/dL High <150 [place] Comment on above: Triglyceride Guidelines: <150 Desirable 150-199 Borderline 200-499 High >499 Very high Based on AHA Guidelines for fasting triglyceride, April 2012. MRI brain without contraston 10-09-2019 [place] Incoming Radiant Results From [facility] - 10/09/2019 12:50 PM EDT EXAMINATION: MRI [...] IMPRESSION: Unremarkable noncontrast MRI of the brain. [place] Unremarkable noncont rast MRI of the brain. [place] EXAMINATION: MRI OF THE BRAIN WITHOUT [...] The soft tissues demonstrate no acute abnormality. [place] STROKE PANELon 10-09-2019 % CKMB 1.7 % 0 - 3 % [place] Anion gap [Moles/Vol] 17 mmol/L 9 - 17 mmol/L [place] aPTT Coag (Bld) [Time] 24.1 s [place] Basophils (Bld) [#/Vol] 0.05 10*3/uL [place] Basophils/100 WBC (Bld) 1 % 0 - 2 % [place] Bun/Cre Ratio NOT REPORTED [place] Calcium [Mass/Vol] 8.7 mg/dL 8.6 - 10. 4 mg/dL [place] Chloride [Moles/Vol] 101 mmol/L 98 - 10 7 mmol/L [place] CK.MB [Mass/Vol] NORMAL ISOENZYME PATTERN [place] CK.MB [Mass/Vol] 1.1 ng/mL <5.4 [place] CO2 [Moles/Vol] 20 mmol/L 20 - 31 mmol/L [place] Creatinine [Mass/Vol] 0.49 mg/dL Low 0.5 - 0.9 mg/dL [place] Differential Type NOT REPORTED [place] Eosinophils (Bld) [#/Vol] 0.15 10*3/uL [place] Eosinophils/100 WBC (Bld) 2 % 1 - 4 % [place] Erythrocyte distribution width (RBC) [Ratio] 12.1 % 11.8 - 14.4 % [place] GFR >60 >60 mL/min [place] GFR Non- >60 >60 mL/min [place] GFR/1.73 sq M predicted among non-blacks MDRD (S/P/Bld) [Vol rate/Area] NOT REPORTED [place] GFR/1.73 sq M predicted among non-blacks MDRD (S/P/Bld) [Vol rate/Area] [place] Comment on above: Average GFR for 40-4 9 years old: 99 mL/min/1.73sq m Chronic Kidney Disease: <60 mL/min/1.73sq m Kidney failure: <15 mL/min/1.73sq m eGFR calculated using average adult body mass. Additional eGFR calculator available at: http://www.RaveMobileSafety.com/[address]_crcl_2011.htm Glucose [Mass/Vol] 103 mg/dL High 70 - 99 mg/dL [place] Hematocrit (Bld) [Volume fraction] 38.6 % 36.3 - 47.1 % [place] Hemoglobin (Bld) [Mass/Vol] 13.0 g/dL 11.9 - 15.1 g/dL [place] Immature granulocytes (Bld) [#/Vol] 1 % High 0 [place] Immature granulocytes (Bld) [#/Vol] 0.05 10*3/uL [place] INR Coag (PPP) [Relative time] 0.9 {INR} [place] Comment on above: Therapeutic Range: Moderate Anticoagulant Intensity: INR = 2.0-3.0 High Anticoagulant Intensity: INR = 2.5-3.5 Interpretation and review of laboratory results Abnormal [place] Lymphocytes (Bld) [#/Vol] 2.65 10*3/uL [place] Lymphocytes/100 WBC (Bld) 27 % 24 - 43 % [place] MCH (RBC) [Entitic mass] 30.5 pg 25.2 - 33.5 pg [place] MCHC (RBC) [Mass/Vol] 33.7 g/dL 28.4 - 34.8 g/dL [place] MCV (RBC) [Entitic vol] 90.6 fL 82.6 - 102.9 fL [place] Monocytes (Bld) [#/Vol] 0.63 10*3/uL [place] Monocytes/100 WBC (Bld) 7 % 3 - 12 % [place] Myoglobin [Mass/Vol] ng/mL Low 25 - 58 ng/mL [place] Platelet mean volume (Bld) [Entitic vol] 9.9 fL 8.1 - 13.5 fL [place] Platelets (Bld) [#/Vol] 249 10*3/uL [place] Platelets (Bld) [#/Vol] NOT REPORTED [place] Potassium [Moles/Vol] 3.9 mmol/L 3.7 - 5.3 mmol/L [place] PT Coag (PPP) [Time] 9.8 s [place] RBC (Bld) [#/Vol] 4.26 10*6/uL 3.95 - 5.11 m/uL [place] RBC morphology finding Nom (Bld) NOT REPORTED [place] Segmented neutrophils/100 WBC (Bld) 62 % 36 - 65 % [place] Segs Absolute 6.15 [place], [place] Sodium [Moles/Vol] 138 mmol/L 135 - 144 mmol/L [place] Total CK 65 U/L 26 - 192 U/L [place] Troponin I.cardiac [Mass/Vol] NOT REPORTED [place] Troponin T.cardiac [Mass/Vol] NOT REPORTED <0.03 ng/mL [place] Troponin, High Sensitivity <6 0 - 14 ng/L [place] Comment on above: High Sensitivity Troponin values cannot be compared with other Troponin methodologies. Patients with high levels of Biotin oral intake (i.e >5mg/day) may have falsely decreased Troponin levels. Samples collected within 8 hours of biotin intake may require additional information for diagnosis. Urea nitrogen [Mass/Vol] 8 mg/dL 6 - 20 mg/dL [place] WBC (Bld) [#/Vol] 0.0 10*3/uL 0.0 per 100 WBC [place] WBC (Bld) [#/Vol] 9.7 10*3/uL [place] WBC Morphology NOT REPORTED [place] Sedimentation Rateon 020 Sed Rate 16 mm 0 - 20 mm [place] Troponinon 10-09-2019 Troponin I.cardiac [Mass/Vol] NOT REPORTED [place] Troponin T.cardiac [Mass/Vol] NOT REPORTED <0.03 ng/mL [place] Troponin, High Sensitivity <6 0 - 14 ng/L [place] Comment on above: High Sensitivity Troponin values cannot be compared with other Troponin methodologies. Patients with high levels of Biotin oral intake (i.e >5mg/day) may have falsely decreased Troponin levels. Samples collected within 8 hours of biotin intake may require additional information for diagnosis. Troponin I.cardiac [Mass/Vol] NOT REPORTED [place] Troponin T.cardiac [Mass/Vol] NOT REPORTED <0.03 ng/mL [place] Troponin, High Sensitivity <6 0 - 14 ng/L [place] Comment on above: High Sensitivity Troponin values cannot be compared with other Troponin methodologies. Patients with high levels of Biotin oral intake (i.e >5mg/day) may have falsely decreased Troponin levels. Samples collected within 8 hours of biotin intake may require additional information for diagnosis. Basic Metabolic Panel w/ Ref golden to MGon 08-29-2019 Anion gap [Moles/Vol] 14 mmol/L 9 - 17 mmol/L [facility] Work Phone: Bun/Cre Ratio 18 [facility] [employer] Work Phone: Calcium [Mass/Vol] 9.0 mg/dL 8.6 - 10. 4 mg/dL [facility] Work Phone: Chloride [Moles/Vol] 100 mmol/L 98 - 10 7 mmol/L [facility] [employer] Phone: CO2 [Moles/Vol] 24 mmol/L 20 - 31 mmol/L [facility] Work Phone: Creatinine [Mass/Vol] 0.56 mg/dL 0.5 - 0.9 mg/dL [employer] Phone: GFR >60 >60 mL/min [employer] Phone: GFR Non- >60 >60 mL/min [employer] Phone: Glucose [Mass/Vol] 150 mg/dL High 70 - 99 mg/dL [employer] Phone: Interpretation and review of laboratory results Abnormal [employer] Phone: Potassium [Moles/Vol] 3.7 mmol/L 3.7 - 5.3 mmol/L [employer] Phone: Sodium [Moles/Vol] 138 mmol/L 135 - 144 mmol/L [employer] Phone: Urea nitrogen [Mass/Vol] 10 mg/dL 6 - 20 mg/dL [employer] Phone: CBC Auto Differentialon 08-19 Basophils (Bld) [#/Vol] 0.03 10*3/uL [employer] Phone: Basophils/100 WBC (Bld) 0 % 0 - 2 % M [employer] Phone: Differential Type NOT REPORTED [employer] Phone: Eosinophils (Bld) [#/Vol] 0.13 10*3/uL [employer] Phone: Eosinophils/100 WBC (Bld) 2 % 1 - 4 % [employer] Phone: Erythrocyte distribution width (RBC) [Ratio] 11.6 % Low 11.8 - 14.4 % [employer] Phone: Hematocrit (Bld) [Volume fraction] 35.6 % Low 36.3 - 47.1 % [employer] Phone: Hemoglobin (Bld) [Mass/Vol] 12.3 g/dL 11.9 - 15.1 g/dL [employer] Phone: Immature granulocytes (Bld) [#/Vol] 0.03 10*3/uL [employer] Phone: Immature granulocytes (Bld) [#/Vol] 0 % 0 [employer] Phone: Interpretation and review of laboratory results Abnormal [employer] Phone: Lymphocytes (Bld) [#/Vol] 2.09 10*3/uL [employer] Phone: Lymphocytes/100 WBC (Bld) 27 % 24 - 43 % [employer] Phone: MCH (RBC) [Entitic mass] 30.4 pg 25.2 - 33.5 pg [employer] Phone: MCHC (RBC) [Mass/Vol] 34.6 g/dL 28.4 - 34.8 g/dL [employer] Phone: MCV (RBC) [Entitic vol] 87.9 fL 82.6 - 102.9 fL [employer] Phone: Monocytes (Bld) [#/Vol] 0.39 10*3/uL [employer] Phone: Monocytes/100 WBC (Bld) 5 % 3 - 12 % M [employer] Phone: Platelet mean volume (Bld) [Entitic vol] 9.8 fL 8.1 - 13.5 fL [employer] Phone: Platelets (Bld) [#/Vol] NOT REPORTED [employer] Phone: Platelets (Bld) [#/Vol] 261 10*3/uL [employer] Phone: RBC (Bld) [#/Vol] 4.05 10*6/uL 3.95 - 5.11 m/uL [employer] Phone: RBC morphology finding Nom (Bld) NOT REPORTED [employer] Work Phone: Segmented neutrophils/100 WBC (Bld) 66 % High 36 - 65 % [employer] Work Phone: Segs Absolute 4.95 [employer] Work Phone: WBC (Bld) [#/Vol] 7.6 10*3/uL [employer] Work Phone: WBC (Bld) [#/Vol] 0.0 10*3/uL 0.0 per 100 WBC [employer] Work Phone: WBC Morphology NOT REPORTED [facility] Work Phone: Metabolic Panelon 08-29-2019 GFR/1.73 sq M predicted among non-blacks MDRD (S/P/Bld) [Vol rate/Area] [employer] Work Phone: Comment on above: Average GFR for 40-4 9 years old: 99 mL/min/1.73sq m Chronic Kidney Disease: <60 mL/min/1.73sq m Kidney failure: <15 mL/min/1.73sq m eGFR calculated using average adult body mass. Additional eGFR calculator available at: http://www.RaveMobileSafety.com/multiple_crcl_2012.htm Stage 1: Some kidney damage normal GFR Stage 2: Mild kidney damage GFR 60-89 Stage 3: Moderate kidney damage GFR 30-59 Stage 4: Severe kidney damage GFR 15-29 Stage 5: Severe kidney damage GFR <15 ESRD - chronic treatment by dialysis or transplant CBC Auto DifferentialOrdered By: Janae Landon on 08-21-2019 Absolute [employer] # 0.13 [employer] Work Phone: Absolute Immature Granulocyte 0.03 [employer] Work Phone: Absolute Lymph # 2.37 [employer] [facility] Work Phone: Absolute Baca # 0.62 [employer] [facility] Work Phone: Basophils (Bld) [#/Vol] 0.06 10*3/uL [employer] Phone: Basophils/100 WBC (Bld) 1 % 0 - 2 % M [employer] Phone: Differential Type NOT REPORTED [employer] Phone: Eosinophils/100 WBC (Bld) 1 % 1 - 4 % [employer] Phone: Erythrocyte distribution width (RBC) [Ratio] 11.4 % Low 11.8 - 14.4 % [employer] Phone: Hematocrit (Bld) [Volume fraction] 38.6 % 36.3 - 47.1 % [employer] Phone: Hemoglobin (Bld) [Mass/Vol] 13.6 g/dL 11.9 - 15.1 g/dL [employer] Phone: Immature granulocytes/100 WBC (Bld) 0 % 0 [employer] Phone: Interpretation and review of laboratory results Abnormal [employer] Phone: Lymphocytes/100 WBC (Bld) 26 % 24 - 43 % [employer] Phone: MCH (RBC) [Entitic mass] 30.6 pg 25.2 - 33.5 pg [employer] Phone: MCHC (RBC) [Mass/Vol] 35.2 g/dL High 28.4 - 34.8 g/dL [employer] Phone: MCV (RBC) [Entitic vol] 86.9 fL 82.6 - 102.9 fL [employer] Phone: Monocytes/100 WBC (Bld) 7 % 3 - 12 % [facility] [employer] Phone: NRBC Automated 0.0 0.0 per 100 WBC [employer] Phone: Platelet Estimate NOT REPORTED [employer] Phone: Platelet mean volume (Bld) [Entitic vol] 9.8 fL 8.1 - 13.5 fL [employer] Work Phone: Platelets (Bld) [#/Vol] 279 10*3/uL [employer] Work Phone: RBC (Bld) [#/Vol] 4.44 10*6/uL 3.95 - 5.11 m/uL [employer] Work Phone: RBC morphology finding Nom (Bld) NOT REPORTED [employer] Work Phone: Segmented neutrophils/100 WBC (Bld) 65 % 36 - 65 % [employer] Work Phone: Segs Absolute 6.07 [employer] Work Phone: WBC (Bld) [#/Vol] 9.3 10*3/uL [employer] Work Phone: WBC Morphology NOT REPORTED [facility] Work Phone: Comprehensive Metabolic Pane lOrdered By: Janae Landon on 08-21-2019 Albumin [Mass/Vol] 4.8 g/dL 3.5 - 5.2 g/dL [employer] Phone: Albumin/Globulin [Mass ratio] 1.8 {ratio} [employer] Phone: ALP [Catalytic activity/Vol] 116 U/L High 35 - 104 U/L [employer] Work Phone: ALT [Catalytic activity/Vol] 30 U/L 5 - 33 U/L [employer] Work Phone: Anion gap [Moles/Vol] 14 mmol/L 9 - 17 mmol/L [employer] Phone: AST [Catalytic activity/Vol] 20 U/L <32 [employer] Phone: Bilirubin [Mass/Vol] 0.27 mg/dL Low 0.3 - 1 .2 mg/dL [employer] Work Phone: Bun/Cre Ratio 15 [employer] Work Phone: Calcium [Mass/Vol] 9.8 mg/dL 8.6 - 10. 4 mg/dL [employer] Phone: Chloride [Moles/Vol] 97 mmol/L Low 98 - 10 7 mmol/L [employer] Phone: CO2 [Moles/Vol] 25 mmol/L 20 - 31 mmol/L [employer] Phone: Creatinine [Mass/Vol] 0.66 mg/dL 0.5 - 0.9 mg/dL [employer] Phone: GFR >60 >60 mL/min [employer] Phone: GFR Comment [employer] Phone: Comment on above: Average GFR for 40-4 9 years old: 99 mL/min/1.73sq m Chronic Kidney Disease: <60 mL/min/1.73sq m Kidney failure: <15 mL/min/1.73sq m eGFR calculated using average adult body mass. Additional eGFR calculator available at: http://www.[employer]ave[employer].com/multiple_crcl_2012.htm GFR Non- >60 >60 mL/min [employer] Phone: GFR Staging [employer] Phone: Comment on above: Stage 1: Some kidney damage normal GFR Stage 2: Mild kidney damage GFR 60-89 Stage 3: Moderate kidney damage GFR 30-59 Stage 4: Severe kidney damage GFR 15-29 Stage 5: Severe kidney damage GFR <15 ESRD - chronic treatment by dialysis or transplant Glucose [Mass/Vol] 95 mg/dL 70 - 99 mg/dL [employer] Phone: Interpretation and review of laboratory results Abnormal [employer] Phone: Potassium [Moles/Vol] 3.7 mmol/L 3.7 - 5.3 mmol/L [employer] Phone: Protein [Mass/Vol] 7.5 g/dL 6.4 - 8.3 g/dL [employer] Phone: Sodium [Moles/Vol] 136 mmol/L 135 - 144 mmol/L [employer] Work Phone: Urea nitrogen [Mass/Vol] 10 mg/dL 6 - 20 mg/dL [employer] Work Phone: D-dimer, quantitativeOrdered By: Janae Landon on 08-21-2019 D-Dimer, Quant 0.21 [employer] Work Phone: Comment on above: Elevated levels [...] of 98%). EKG 12 LeadOrdered By: Eduardo Landon on 08-21-2019 Atrial Rate 70 BPM [employer] Work Phone: P [place] 51 degrees [employer] Phone: P-R Interval 164 ms [employer] Phone: Q-T Interval 408 ms [employer] Work Phone: QRS Duration 82 ms [employer] Work Phone: QTc Calculation (Bazett) 440 ms [employer] Phone: R [place] -4 degrees [employer] Phone: T [place] 24 degrees [employer] Phone: Ventricular Rate 70 BPM [facility] Work Phone: Normal sinus rhythm Possible Left atrial enlargement Left ventricular hypertrophy Abnormal ECG When compared with ECG of 19-APR-2019 17:03, Nonspecific T wave abnormality no longer evident in Anterior leads Confirmed by GILMAR RICHTER ([id number]) on 08/21/2019 1:09:43 PM [employer] Work Phone: [place], [facility] Incoming E kg Results From [email or web address] [place] - 08/21/2019 1:09 PM EST Normal sinus rhythm Possible Left atrial enlargement Left ventricular hypertrophy Abnormal ECG When compared with ECG of 19-APR-2019 17:03, Nonspecific T wave abnormality no longer evident in Anterior leads Confirmed by GILMAR RICHTER ([id number]) on 08/21/2019 1:09:43 PM [employer] Work Phone: Microscopic UrinalysisOrdere d By: Janae Landon on 08-21-2019 - [employer] Work Phone: Amorphous, UA NOT REPORTED None [facility] Work Phone: Bacteria, UA TRACE Abnormal None [employer] Work Phone: Casts UA NOT REPORTED /LPF [employer] Work Phone: Crystals UA NOT REPORTED None /HPF [employer] [facility] Work Phone: Epithelial Cells UA 0 TO 2 [employer] Work Phone: Interpretation and review of laboratory results Abnormal [employer] Work Phone: Mucus, UA NOT REPORTED None [employer] Work Phone: Other Observations UA NOT REPORTED NOT REQ. [facility] Work Phone: RBC, UA 0 TO 2 [employer] [facility] Work Phone: Renal Epithelial, Urine NOT REPORTED 0 /HPF [employer] Work Phone: Trichomonas, UA NOT REPORTED None [email or web address] Work Phone: WBC, UA 0 TO 2 [employer] [facility] Work Phone: Yeast, UA NOT REPORTED None [employer] Work Phone: TroponinOrdered By: Janae Landon on 08-21-2019 Troponin Interp [facility] Work Phone: Comment [...] for diagnosis. Troponin T <0.03 <0.03 ng/mL [employer] Work Phone: Comment on above: Troponin T results c annot be compared to Troponin-I results. Troponin, High Sensitivity NOT REPORTED 0 - 14 ng/L [employer] Phone: [facility]roponin Interp [facility] Work Phone: Comment on above: Reference Range: [...] for diagnosis. Troponin T <0.03 <0.03 ng/mL [employer] Phone: Comment on above: Troponin T results c annot be compared to Troponin-I results. Troponin, High Sensitivity NOT REPORTED 0 - 14 ng/L [employer] Phone: Urinalysis Reflex to Culture Ordered By: Janae Landon on 08-21-2019 Bilirubin Urine Negative NEGATIVE [facility] Work Phone: Color, UA STRAW Abnormal YELLOW [employer] Work Phone: Glucose, Ur Negative NEGATIVE [employer] Phone: Interpretation and review of laboratory results Abnormal [employer] Phone: Ketones Ql (U) Negative NEGATIVE [employer] [facility] Work Phone: Leukocyte esterase Test strip Ql (U) Negative NEGATIVE [employer] Work Phone: Nitrite, Urine Negative NEGATIVE [employer] [facility] [employer] Work Phone: pH, UA 6.0 [facility] Work Phone: Protein, UA Negative NEGATIVE [facility] Work Phone: Specific Russell, UA 1.010 [facility] [employer] Work Phone: Turbidity UA CLEAR CLEAR [facility] Work Phone: Urinalysis Comments NOT REPORTED [facility] [employer] Work Phone: Urine Hgb TRACE Abnormal NEGATIVE [facility] Work Phone: Urobilinogen, Urine Normal Normal [facility] Work Phone: XR CHEST STANDARD (2 VW)Orde red By: Janae Landon on 08-21-2019 No acute cardiopulmo nary process. [employer] Work Phone: EXAMINATION: TWO XRA Y VIEWS [...] unremarkable. There is no acute osseous abnormality. [employer] Work Phone: [place], [facility] Incoming Radiant Results From [employer] - 08/21/2019 10:31 AM EST EXAMINATION: TWO [...] osseous abnormality. IMPRESSION: No acute cardiopulmonary process. [employer] Phone: MANDY SCREEN WITH REFLEXon Interpretation and review of laboratory results Abnormal [place] Nuclear Ab IF (S) [Titer] Positive Abnormal NEGATIVE [place] MANDY profileon 04-21-2019 MANDY Reference Range: [place] Comment on above: The following refere nce range is applicable for MANDY antibodies, including: Anti-Reza (Sm), Anti-STARCH COOKER, Anti-Scleroderma (Scl-70), Anti-Sjogren A (SSA), Anti-Sjogren B (SSB), Anti-Deya, Anti-Centromere, Anti-Histone REFERENCE RANGE: Negative <100 U/mL Positive >120 U/mL Equivocal 100-120 U/mL The following reference range is applicable for Anti-Double Strand DNA (dsDNA): REFERENCE RANGE: Negative <100 IU/mL Positive >120 IU/mL Equivocal 100-120 IU/mL Anti ds DNA 10 <100 IU/mL [place] Anti Histone 14 U/mL <100 [place] Anti DEYA-1 11 U/mL <100 [place] Anti STARCH COOKER 488 U/mL High <100 [place] Anti SSA 9 U/mL <100 [facility], [place] Anti SSB 13 U/mL <100 [facility] Anti-Centromere 5 U/mL <100 [place] Anti-Scleroderma 15 U/mL <100 [facility], [place] Anti-Reaz 18 U/mL <100 [place] Interpretation and review of laboratory results Abnormal [place] POC Glucose Fingerstickon Glucose [Mass/Vol] 153 mg/dL High 65 - 105 mg/dL [place] Interpretation and review of laboratory results Abnormal [place] Glucose [Mass/Vol] 126 mg/dL High 65 - 105 mg/dL [place] Interpretation and review of laboratory results Abnormal [place] Glucose [Mass/Vol] 148 mg/dL High 65 - 105 mg/dL [place] Interpretation and review of laboratory results Abnormal [place] BASIC METABOLIC PANELon 10- Anion gap [Moles/Vol] 17 mmol/L 9 - 17 mmol/L [place] Bun/Cre Ratio NOT REPORTED [facility] [place] [place] Calcium [Mass/Vol] 9.5 mg/dL 8.6 - 10. 4 mg/dL [place] Chloride [Moles/Vol] 102 mmol/L 98 - 10 7 mmol/L [place] CO2 [Moles/Vol] 18 mmol/L Low 20 - 31 mmol/L [place] Creatinine [Mass/Vol] 0.52 mg/dL 0.5 - 0.9 mg/dL [place] GFR >60 >60 mL/min [place] GFR Non- >60 >60 mL/min [place] GFR/1.73 sq M predicted among non-blacks MDRD (S/P/Bld) [Vol rate/Area] NOT REPORTED [place] GFR/1.73 sq M predicted among non-blacks MDRD (S/P/Bld) [Vol rate/Area] [place] Comment on above: Average GFR for 40-4 9 years old: 99 mL/min/1.73sq m Chronic Kidney Disease: <60 mL/min/1.73sq m Kidney failure: <15 mL/min/1.73sq m eGFR calculated using average adult body mass. Additional eGFR calculator available at: http://www.[employer].com/multiple_crcl_2012.htm Glucose [Mass/Vol] 146 mg/dL High 70 - 99 mg/dL [place] Interpretation and review of laboratory results Abnormal [place] Potassium [Moles/Vol] 4.4 mmol/L 3.7 - 5.3 mmol/L [place] Sodium [Moles/Vol] 137 mmol/L 135 - 144 mmol/L [place] Urea nitrogen [Mass/Vol] 9 mg/dL 6 - 20 mg/dL [place] CBCon 04-20-2019 Erythrocyte distribution width (RBC) [Ratio] 12.4 % 11.8 - 14.4 % [place] Hematocrit (Bld) [Volume fraction] 42.4 % 36.3 - 47.1 % [place] Hemoglobin (Bld) [Mass/Vol] 13.0 g/dL 11.9 - 15.1 g/dL [place] Interpretation and review of laboratory results Abnormal [place] MCH (RBC) [Entitic mass] 31.7 pg 25.2 - 33.5 pg [place] MCHC (RBC) [Mass/Vol] 30.7 g/dL 28.4 - 34.8 g/dL [place] MCV (RBC) [Entitic vol] 103.4 fL High 82.6 - 102.9 fL [place] Platelet mean volume (Bld) [Entitic vol] 10.7 fL 8.1 - 13.5 fL [place] Platelets (Bld) [#/Vol] 240 10*3/uL [place] RBC (Bld) [#/Vol] 4.10 10*6/uL 3.95 - 5.11 m/uL [place] WBC (Bld) [#/Vol] 0.0 10*3/uL 0.0 per 100 WBC [place] WBC (Bld) [#/Vol] 15.1 10*3/uL [place] CT ABDOMEN PELVIS W IV CONTR AST Additional Contrast? Noneon 04-20-2019 Cholesterol [Mass/Vol] Normal appendix. No bowel obstruction. Prior cholecystectomy and hysterectomy. Trace nonspecific free fluid in the posterior pelvis may be physiologic. [place] [facility] Incoming Radiant Results From [employer] - 04/20/2019 12:16 AM EDT EXAMINATION: CT [...] in the posterior pelvis may be physiologic. [place] EXAMINATION: CT OF T HE ABDOMEN [...] No lymphadenopathy in the abdomen or pelvis. [place] HEMOGLOBIN A1Con 04-20-2019 Glucose [Mass/Vol] 111 mg/dL [place] Comment on above: The ADA and AACC rec ommend providing the estimated average glucose result to permit better patient understanding of their HBA1c result. HbA1c (Bld) [Mass fraction] 5.5 % 4 - 6 % [place] MRI Brain WO Contraston 10-0 [place], [facility] Incoming Radiant Results From [employer] - 04/20/2019 9:41 AM EDT EXAMINATION: MRI [...] abnormality. IMPRESSION: Unremarkable MRI of the brain. [place] EXAMINATION: MRI OF THE BRAIN WITHOUT [...] The soft tissues demonstrate no acute abnormality. [place] Unremarkable MRI of the brain. [place] POC Glucose Fingerstickon Glucose [Mass/Vol] 114 mg/dL High 65 - 105 mg/dL [place] Interpretation and review of laboratory results Abnormal [place] Glucose [Mass/Vol] 146 mg/dL High 65 - 105 mg/dL [place] Interpretation and review of laboratory results Abnormal [place] Glucose [Mass/Vol] 132 mg/dL High 65 - 105 mg/dL [place] Interpretation and review of laboratory results Abnormal [place] Glucose [Mass/Vol] 136 mg/dL High 65 - 105 mg/dL [place] Interpretation and review of laboratory results Abnormal [place] RHEUMATOID FACTORon 04-20-20 19 Rheumatoid Factor <10 <14 IU/mL [place], [place] Sedimentation Rateon 019 Sed Rate 12 mm 0 - 20 mm [place] APTTon 04-19-2019 aPTT Coag (Bld) [Time] 25.2 s [place] Basic Metabolic Panelon Anion gap [Moles/Vol] 17 mmol/L 9 - 17 mmol/L [place] Bun/Cre Ratio 17 [place] Calcium [Mass/Vol] 9.2 mg/dL 8.6 - 10. 4 mg/dL [place] Chloride [Moles/Vol] 102 mmol/L 98 - 10 7 mmol/L [place] CO2 [Moles/Vol] 22 mmol/L 20 - 31 mmol/L [place] Creatinine [Mass/Vol] 0.59 mg/dL 0.5 - 0.9 mg/dL [place] GFR >60 >60 mL/min [place] GFR Non- >60 >60 mL/min [place] Glucose [Mass/Vol] 115 mg/dL High 70 - 99 mg/dL [place] Interpretation and review of laboratory results Abnormal [place] Potassium [Moles/Vol] 3.3 mmol/L Low 3.7 - 5.3 mmol/L [place] Sodium [Moles/Vol] 141 mmol/L 135 - 144 mmol/L [place] Urea nitrogen [Mass/Vol] 10 mg/dL 6 - 20 mg/dL [place] Brain Natriuretic Peptideon 04-19-2019 Natriuretic peptide B (Bld) [Mass/Vol] Pro-BNP Reference Range: [place], [place] Comment on above: Rule Out: <300 [place] Zone: Age <50 300-450 Age 50-75 300-900 Age >75 300-1800 Usually represents mild to moderate HF but other cardiopulmonary causes cannot be ruled out. Rule In: Age <50 >450 Age 50-75 >900 Age >75 >1800 Natriuretic peptide B (Bld) [Mass/Vol] 57 pg/mL <300 [place] Comment on above: Pro-BNP results alirio ot be compared to BNP results. C-REACTIVE PROTEINon 019 CRP [Mass/Vol] 4.9 mg/L 0 - 5 mg/L [place] CBCon 04-19-2019 Erythrocyte distribution width (RBC) [Ratio] 11.9 % 11.8 - 14.4 % [place] Hematocrit (Bld) [Volume fraction] 35.3 % Low 36.3 - 47.1 % [place] Hemoglobin (Bld) [Mass/Vol] 12.3 g/dL 11.9 - 15.1 g/dL [place] Interpretation and review of laboratory results Abnormal [place] MCH (RBC) [Entitic mass] 30.8 pg 25.2 - 33.5 pg [place] MCHC (RBC) [Mass/Vol] 34.8 g/dL 28.4 - 34.8 g/dL [place] MCV (RBC) [Entitic vol] 88.5 fL 82.6 - 102.9 fL [place] Platelet mean volume (Bld) [Entitic vol] 10.0 fL 8.1 - 13.5 fL [place] Platelets (Bld) [#/Vol] 261 10*3/uL [place] RBC (Bld) [#/Vol] 3.99 10*6/uL 3.95 - 5.11 m/uL [place] WBC (Bld) [#/Vol] 0.0 10*3/uL 0.0 per 100 WBC [place] WBC (Bld) [#/Vol] 7.9 10*3/uL [place] CBC Auto Differentialon 10-0 Basophils (Bld) [#/Vol] 0.03 10*3/uL [place] Basophils/100 WBC (Bld) 0 % 0 - 2 % M [place] Differential Type NOT REPORTED [place] Eosinophils (Bld) [#/Vol] 10*3/uL [place] Eosinophils/100 WBC (Bld) 0 % Low 1 - 4 % [place] Erythrocyte distribution width (RBC) [Ratio] 11.9 % 11.8 - 14.4 % [place] Hematocrit (Bld) [Volume fraction] 37.4 % 36.3 - 47.1 % [place] Hemoglobin (Bld) [Mass/Vol] 13.0 g/dL 11.9 - 15.1 g/dL [place] Immature granulocytes (Bld) [#/Vol] 1 % High 0 [place] Immature granulocytes (Bld) [#/Vol] 0.06 10*3/uL [place] Interpretation and review of laboratory results Abnormal [place] Lymphocytes (Bld) [#/Vol] 1.00 10*3/uL Low [place] Lymphocytes/100 WBC (Bld) 11 % Low 24 - 43 % [place] MCH (RBC) [Entitic mass] 30.2 pg 25.2 - 33.5 pg [place] MCHC (RBC) [Mass/Vol] 34.8 g/dL 28.4 - 34.8 g/dL [place] MCV (RBC) [Entitic vol] 86.8 fL 82.6 - 102.9 fL [place] Monocytes (Bld) [#/Vol] 0.11 10*3/uL [place] Monocytes/100 WBC (Bld) 1 % Low 3 - 12 % [place] Platelet mean volume (Bld) [Entitic vol] 10.2 fL 8.1 - 13.5 fL [place] Platelets (Bld) [#/Vol] NOT REPORTED [place] Platelets (Bld) [#/Vol] 285 10*3/uL [place] RBC (Bld) [#/Vol] 4.31 10*6/uL 3.95 - 5.11 m/uL [place] RBC morphology finding Nom (Bld) NOT REPORTED [place] Segmented neutrophils/100 WBC (Bld) 87 % High 36 - 65 % [place] Segs Absolute 7.79 [place] WBC (Bld) [#/Vol] 9.0 10*3/uL [place] WBC (Bld) [#/Vol] 0.0 10*3/uL 0.0 per 100 WBC [place] WBC Morphology NOT REPORTED [place] CT Head WO Contraston 2018 [place], [facility] Incoming Radiant Results From [employer] - 04/19/2019 1:52 PM EDT EXAMINATION: CT [...] soft tissues. IMPRESSION: No acute intracranial abnormality. [place] No acute intracrania l abnormality. [place] EXAMINATION: CT OF T HE HEAD [...] of the visualized skull or soft tissues. [place] CTA HEAD NECK W CONTRASTon 1 [place], [facility] Incoming Radiant Results From [employer] - 04/19/2019 3:48 PM EDT EXAMINATION: CTA [...] occlusion visualized within the head or neck. [place] Mild beading of both cervical ICAs which may reflect FMD or arteritis. No flow limiting stenosis or large vessel occlusion visualized within the head or neck. [place] EXAMINATION: CTA OF THE HEAD AND [...] See separately dictated noncontrast head CT report. [place] CardiacOrdered By: Ena rock on 04-19-2019 Natriuretic peptide B (Bld) [Mass/Vol] 57 pg/mL (<300 ) [facility] Work Phone: Comment on above: Note: Pro-BNP result s cannot be compared to BNP results.Responsible Observer: [employer] ([id number]) [facility] 04-19-2019 Natriuretic peptide B (Bld) [Mass/Vol] Pro-BNP Reference Range: [facility] Work Phone: Comment on above: Note: Rule Out: <300 [place] Zone:Age <50 300-450Age 50-75 300-900Age >75 300-1800Usually represents mild to moderate HF but other cardiopulmonary causes cannotbe ruled out.Rule In:Age <50 >450Age 50-75 >900Age >75 >1800Responsible Observer: [employer] ([id number]) Troponin I.cardiac [Mass/Vol] See Note [facility] Work Phone: Comment on above: Note: Reference Rang e:<0.03 Within reference range.0.03-0.09 Possible myocardial damage.Repeat at appropriate intervals to rule out chronic elevation.>= 0.10 Indicative of myocardial damage.Patients with high levels of Biotin oral intake (i.e >5mg/day) may have falselydecreased Troponin T levels. Samples collected within 8 hours of biotin intakemay require additional information for diagnosis.Responsible Observer: [employer] ([id number]) Troponin T.cardiac [Mass/Vol] <0.03 ng/mL (<0.03) [facility] Work Phone: Comment on above: Note: Troponin T res ults cannot be compared to Troponin-I results.Responsible Observer: [employer] ([id number]) Comprehensive Metabolic Pane misti 04-19-2019 Albumin [Mass/Vol] 4.4 g/dL 3.5 - 5.2 g/dL [place] Albumin/Globulin [Mass ratio] 1.5 {ratio} [place] ALP [Catalytic activity/Vol] 99 U/L 35 - 104 U/L [place] ALT [Catalytic activity/Vol] 43 U/L High 5 - 33 U/L [place] Anion gap [Moles/Vol] 13 mmol/L 9 - 17 mmol/L [place] AST [Catalytic activity/Vol] 29 U/L <32 [place] Bilirubin Ql (U) 0.44 mg/dL 0.3 - 1.2 mg/dL [place] Bun/Cre Ratio NOT REPORTED [place] Calcium [Mass/Vol] 9.1 mg/dL 8.6 - 10. 4 mg/dL [place] Chloride [Moles/Vol] 102 mmol/L 98 - 10 7 mmol/L [place] CO2 [Moles/Vol] 22 mmol/L 20 - 31 mmol/L [place] Creatinine [Mass/Vol] 0.53 mg/dL 0.5 - 0.9 mg/dL [place] GFR >60 >60 mL/min [place] GFR Non- >60 >60 mL/min [place] GFR/1.73 sq M predicted among non-blacks MDRD (S/P/Bld) [Vol rate/Area] [place] Comment on above: Average GFR for 40-4 9 years old: 99 mL/min/1.73sq m Chronic Kidney Disease: <60 mL/min/1.73sq m Kidney failure: <15 mL/min/1.73sq m eGFR calculated using average adult body mass. Additional eGFR calculator available at: http://www.[employer]ave[employer].com/multiple_crcl_2012.htm GFR/1.73 sq M predicted among non-blacks MDRD (S/P/Bld) [Vol rate/Area] NOT REPORTED [place] Glucose [Mass/Vol] 144 mg/dL High 70 - 99 mg/dL [place] Interpretation and review of laboratory results Abnormal [place] Potassium [Moles/Vol] 3.5 mmol/L Low 3.7 - 5.3 mmol/L [place] Protein [Mass/Vol] 7.3 g/dL 6.4 - 8.3 g/dL [place] Sodium [Moles/Vol] 137 mmol/L 135 - 144 mmol/L [place] Urea nitrogen [Mass/Vol] 9 mg/dL 6 - 20 mg/dL [place] HCG Qualitative, Serumon hCG Qual Negative NEGATIVE [place] Comment on above: Specimens with hCG l evels near the threshold of the test (25 mIU/mL) may give a negative or indeterminate result. In such cases, another test should be performed with a new specimen in 48-72 hours. If early is suspected clinically in this setting, correlation with quantitative serum b-hCG level is suggested. [employer] has confirmed the use of plasma for this test. This has not been cleared or approved by the U.S. Food and Drug Administration. The FDA has determined that such clearance is not necessary. HematologyOrdered By: Ena Fung on 04-19-2019 aPTT Coag (Bld) [Time] 25.2 s (23.2 -34.4 ) [facility] [employer] [facility] Work Phone: Comment on above: Note: Responsible Ob kitchen food server: CAONEFIVE AUTOFILE (2017) Hematocrit (Bld) [Volume fraction] 35.3 % Low (36.3-47.1 ) [facility] Work Phone: Comment on above: Note: Responsible Ob kitchen food server: XNT AUTOFILE ([id number]) Hemoglobin (Bld) [Mass/Vol] 12.3 g/dL (11.9-15.1 ) [facility] Work Phone: Comment on above: Note: Responsible Ob kitchen food server: [employer] ([id number]) INR Coag (PPP) [Relative time] 1.0 {INR} (0.9-1.2 ) [facility] Work Phone: Comment on above: Note: Responsible Ob kitchen food server: [employer]ONE[employer] AUTOFILE (2016) MCH (RBC) [Entitic mass] 30.8 pg (25.2-33.5 ) [facility] Work Phone: Comment on above: Note: Responsible Ob kitchen food server: [employer] AUT[employer]FILE ([id number]) MCV (RBC) [Entitic vol] 88.5 fL (82. 6-102. 9 ) [facility] Work Phone: Comment on above: Note: Responsible Ob kitchen food server: [employer] ([id number]) Platelets (Bld) [#/Vol] 261 10*3/uL (138-453 ) [facility] Work Phone: Comment on above: Note: Responsible Ob kitchen food server: [employer] AUT[employer]FILE ([id number]) PT Coag (PPP) [Time] 10.3 s (9.7-12 .2 ) [facility] Work Phone: Comment on above: Note: Responsible Ob kitchen food server: [employer]FILE (2016) RBC (Bld) [#/Vol] 3.99 10*6/uL (3.95-5.11 ) [facility] Work Phone: Comment on above: Note: Responsible Ob kitchen food server: [employer] AUT[employer]FILE ([id number]) WBC (Bld) [#/Vol] 7.9 10*3/uL (3.5-11.3 ) [facility] Work Phone: Comment on above: Note: Responsible Ob kitchen food server: XNT AUTOFILE ([id number]) Hematologyon 04-19-2019 WBC (Bld) [#/Vol] 0.0 per_100_WBC (0.0) [facility] Work Phone: Comment on above: Note: Responsible Ob kitchen food server: XNT AUTOFILE ([id number]) Magnesiumon 04-19-2019 Magnesium [Mass/Vol] 2.0 mg/dL 1.6 - 2 .6 mg/dL [place] Metabolic Panelon 04-19-2019 GFR/1.73 sq M predicted among non-blacks MDRD (S/P/Bld) [Vol rate/Area] [place] Comment on above: Average GFR for 40-4 9 years old: 99 mL/min/1.73sq m Chronic Kidney Disease: <60 mL/min/1.73sq m Kidney failure: <15 mL/min/1.73sq m eGFR calculated using average adult body mass. Additional eGFR calculator available at: http://www.[employer].com/multiple_crcl_2012.htm Stage 1: Some kidney damage normal GFR Stage 2: Mild kidney damage GFR 60-89 Stage 3: Moderate kidney damage GFR 30-59 Stage 4: Severe kidney damage GFR 15-29 Stage 5: Severe kidney damage GFR <15 ESRD - chronic treatment by dialysis or transplant Metabolic PanelOrdered By: Kevin Fung on 04-19-2019 Anion gap [Moles/Vol] 17 mmol/L (9-17 ) [facility] Work Phone: Comment on above: Note: Responsible Ob kitchen food server: CET ONE AUTOFILE ([id number]) Calcium [Mass/Vol] 9.2 mg/dL (8.6-10.4 ) [facility] Work Phone: Comment on above: Note: Responsible Ob kitchen food server: [employer] ONE AUTOFILE ([id number]) Chloride [Moles/Vol] 102 mmol/L (98-107 ) [facility] Work Phone: Comment on above: Note: Responsible Ob kitchen food server: [employer] AUTOFILE ([id number]) CO2 [Moles/Vol] 22 mmol/L (20-31 ) [facility] Work Phone: Comment on above: Note: Responsible Ob kitchen food server: [employer] AUT[employer]FILE ([id number]) Creatinine [Mass/Vol] 0.59 mg/dL (0.50- 0.90 ) [facility] Work Phone: Comment on above: Note: Responsible Ob kitchen food server: [employer]FILE ([id number]) Glucose [Mass/Vol] 115 mg/dL High (70-99 ) [facility] Work Phone: Comment on above: Note: Responsible Ob kitchen food server: [employer] AUTOFILE ([id number]) Magnesium [Mass/Vol] 2.0 mg/dL (1.6-2.6 ) [facility] Work Phone: Comment on above: Note: Responsible Ob kitchen food server: [employer]ET ONE AUTOFILE ([id number]) Potassium [Moles/Vol] 3.3 mmol/L Low (3.7-5.3 ) [facility] Work Phone: Comment on above: Note: Responsible Ob kitchen food server: CET ONE AUTOFILE ([id number]) Sodium [Moles/Vol] 141 mmol/L (135-144 ) [facility] Work Phone: Comment on above: Note: Responsible Ob kitchen food server: [employer]ET ONE AUTOFILE ([id number]) Urea nitrogen [Mass/Vol] 10 mg/dL (6-20 ) [facility] Work Phone: Comment on above: Note: Responsible Ob kitchen food server: [employer] AUTOFILE ([id number]) No Panel InformationOrdered By: Ena Fung on 04-19-2019 BNP Interpretation Pro-BNP Reference Range: [facility] Work Phone: Comment on above: Note: Rule Out: <300 [place] Zone:Age <50 300-450Age 50-75 300-900Age >75 300-1800Usually represents mild to moderate HF but other cardiopulmonary causes cannotbe ruled out.Rule In:Age <50 >450Age 50-75 >900Age >75 >1800Responsible Observer: CET ONE AUTOFILE ([id number]) NRBC Automated 0.0 per_100_WBC (0.0 ) [facility] Work Phone: Comment on above: Note: Responsible Ob kitchen food server: XNT AUTOFILE ([id number]) Troponin Interp. See Note [facility] Work Phone: Comment on above: Note: Reference Rang e:<0.03 Within reference range.0.03-0.09 Possible myocardial damage.Repeat at appropriate intervals to rule out chronic elevation.>= 0.10 Indicative of myocardial damage.Patients with high levels of Biotin oral intake (i.e >5mg/day) may have falselydecreased Troponin T levels. Samples collected within 8 hours of biotin intakemay require additional information for diagnosis.Responsible Observer: CET ONE AUTOFILE ([id number]) Troponin T <0.03 ng/mL (<0.03 ) [facility] Work Phone: Comment on above: Note: Troponin T res ults cannot be compared to Troponin-I results.Responsible Observer: CET ONE AUTOFILE ([id number]) OtherOrdered By: Ena bee on 04-19-2019 (cont.) See Note [facility] Work Phone: Comment on above: Note: Average GFR fo r 40-49 years old:99 mL/min/1.73sq mChronic Kidney Disease:<60 mL/min/1.73sq mKidney failure:<15 mL/min/1.73sq meGFR calculated using average adult body mass. Additional eGFR calculatoravailable at:http://www.intelworks.com/multiple_crcl_2012.htmResponsible Observer: CET ONE AUTOFILE ([id number]) BUN/CRE Ratio 17 (9-20 ) [facility] Work Phone: Comment on above: Note: Responsible Ob kitchen food server: CET ONE AUTOFILE ([id number]) Erythrocyte distribution width (RBC) [Ratio] 11.9 % (11.8-14.4 ) [facility] Work Phone: Comment on above: Note: Responsible Ob kitchen food server: XNT AUTOFILE ([id number]) GFR, Amer >60 mL/min (>60 ) [facility] Work Phone: Comment on above: Note: Responsible Ob kitchen food server: CET ONE AUTOFILE ([id number]) GFR,non Amer >60 mL/min (>60 ) [facility] Work Phone: Comment on above: Note: Responsible Ob kitchen food server: C[employer] ONE AUTOFILE ([id number]) MCHC (RBC) [Mass/Vol] 34.8 g/dL (28.4- 34.8 ) [facility] Work Phone: Comment on above: Note: Responsible Ob kitchen food server: XNT AUTOFILE ([id number]) Performing Lab: see note [facility] Work Phone: Comment on above: Note: [address] [place] [id number] [place] [address] Note: [address] [place] [address] Platelet mean volume (Bld) [Entitic vol] 10.0 fL (8.1-13.5 ) [facility] Work Phone: Comment on above: Note: Responsible Ob kitchen food server: XNT AUTOFILE ([id number]) Reported Physicians See Note [facility] Work Phone: Comment on above: Note: Reported Physi cians:Ordering: Erin DOWending: Ena Wray Staging: See Note [facility] Work Phone: Comment on above: Note: Stage 1: Some kidney damage normal GFRStage 2: Mild kidney damage GFR 60-89Stage 3: Moderate kidney damage GFR 30-59Stage 4: Severe kidney damage GFR 15-29Stage 5: Severe kidney damage GFR <15ESRD - chronic treatment by dialysis or transplantResponsible Observer: C[employer] ONE AUTOFILE ([id number]) Troponin, High Sens NOT REPORTED ng/L (0-14 ) [facility] Work Phone: Protime-INRon 04-19-2019 INR Coag (PPP) [Relative time] 1.0 {INR} [place] PT Coag (PPP) [Time] 10.3 s [place] Sedimentation Rateon 019 Sed Rate 18 mm 0 - 20 mm [place] Troponinon 04-19-2019 Troponin I.cardiac [Mass/Vol] [place] Comment on above: Reference Range: <0.03 [...] diagnosis. Troponin T.cardiac [Mass/Vol] ug/L <0.03 ng/mL [place] Comment on above: Troponin T results c annot be compared to Troponin-I results. Troponin, High Sensitivity NOT REPORTED 0 - 14 ng/L [place] Troponin I.cardiac [Mass/Vol] [place] Comment on above: Reference Range: <0.03 [...] diagnosis. Troponin T.cardiac [Mass/Vol] ug/L <0.03 ng/mL [place] Comment on above: Troponin T results c annot be compared to Troponin-I results. Troponin, High Sensitivity NOT REPORTED 0 - 14 ng/L [place] XR CHEST PORTABLEon 04-19-20 19 EXAMINATION: ONE XRA Y VIEW OF THE CHEST 04/19/2019 1:39 pm COMPARISON: Chest 02/06/2019 HISTORY: ORDERING SYSTEM PROVIDED HISTORY: chest pain TECHNOLOGIST PROVIDED HISTORY: chest pain FINDINGS: The cardiomediastinal and hilar silhouettes appear unremarkable. The lungs appear clear. No pleural effusion evident. No pneumothorax is seen. No acute osseous abnormality is identified. [place] [facility] Incoming Radiant Results From [facility] - 04/19/2019 1:52 PM EDT EXAMINATION: ONE [...] No radiographic evidence of acute cardiopulmonary disease. [facility] No radiographic evid ence of acute cardiopulmonary disease. [facility] 01-21-2018 Cholesterol mass conc 248 mg/dL Invalid Interpretation Code <200 [facility] Cholesterol 248 mg/dL Invalid Interpretation Code <200 [facility] Metabolic Panelon 01-21-2018 Anion gap 3 molar conc 10 mmol/L Invalid Interpretation Code 9-17 [facility] Calcium mass conc 9.20 mg/dL Invalid Interpretation Code 8.6-10.4 [facility] Chloride molar conc 97 mmol/L Invalid Interpretation Code 98-107 [facility] CO2 molar conc 29 mmol/L Invalid Interpretation Code 20-31 [facility] Creatinine mass conc 0.51 mg/dL Invalid Interpretation Code 0.50-0.90 [facility] Glucose mass conc 120 mg/dL Invalid Interpretation Code 70-99 [facility] Potassium molar conc 4.0 mmol/L Invalid Interpretation Code 3.7-5.3 [facility] Sodium molar conc 136 mmol/L Invalid Interpretation Code 135-144 [facility] Urea nitrogen mass conc 11.0 mg/dL Invalid Interpretation Code 6-20 [facility] Anion gap 10 mmol/L Invalid Interpretation Code 9-17 [facility] BUN (urea nitrogen) 11 mg/dL Invalid Interpretation Code 6-20 [facility] [employer] [facility] Calcium 9.2 mg/dL Invalid Interpretation Code 8.6-10.4 [facility] Calcium mass conc 9.20 mg/dL Invalid Interpretation Code 8.6-10.4 [facility] Chloride 97 mmol/L Invalid Interpretation Code 98-107 [facility] CO2 29 mmol/L Invalid Interpretation Code 20-31 [facility] Creatinine 0.51 mg/dL Invalid Interpretation Code 0.50-0.90 [facility] Glucose mass conc 120 mg/dL Invalid Interpretation Code 70-99 [facility] Potassium molar conc 4.0 mmol/L Invalid Interpretation Code 3.7-5.3 [facility] Sodium 136 mmol/L Invalid Interpretation Code 135-144 [facility] Urea nitrogen mass conc 11.0 mg/dL Invalid Interpretation Code 6-20 [facility] Otheron 01-21-2018 Cholesterol.total/Audelia sterol in HDL mass ratio 7.3 {ratio} Invalid Interpretation Code <5 [facility] Urea nitrogen/Creatinine mass ratio (Bld) 22 Invalid Interpretation Code 9-20 [facility] NOT REPORTED Invalid Interpretation Code 1-30 [facility] [employer] >60 Invalid Interpretation Code >60 [facility] [employer] [facility] 106 Invalid Interpretation Code <100 [facility] [employer] [facility] 34 Invalid Interpretation Code >40 [facility] [employer] [facility] 708 Invalid Interpretation Code <150 [facility] [employer] [facility] Cholesterol to HDL Ratio 7.3 {ratio} Invalid Interpretation Code <5 [facility] [employer] [facility] Urea nitrogen/Creatinine mass ratio (Bld) 22 Invalid Interpretation Code 9-20 [facility] NOT REPORTED Invalid Interpretation Code 1-30 [facility] >60 Invalid Interpretation Code >60 [facility] 22 Invalid Interpretation Code 9-20 [facility] 34 Invalid Interpretation Code >40 [facility] 106 Invalid Interpretation Code <100 [facility] 708 Invalid Interpretation Code <150 [facility] Otheron 10-26-2017 2 Invalid Interpretation Code [facility] 2 Invalid Interpretation Code [facility] Metabolic Panelon 10-15-2017 Hemoglobin A1c/Hemoglobin.total mass fraction (Bld) 5.40 % Invalid Interpretation Code < 7 [facility] Hemoglobin A1c/Hemoglobin.total mass fraction (Bld) 5.40 % Invalid Interpretation Code < 7 [facility] Otheron 10-15-2017 0=No Invalid Interpretation Code [facility] 0=N/A Invalid Interpretation Code [facility] 1=Yes Invalid Interpretation Code [facility] 0 Invalid Interpretation Code [facility] 4 Invalid Interpretation Code [facility] Risk Level 2= 4-6 Invalid Interpretation Code [facility] managing chronic illness Invalid Interpretation Code [facility] 2=uncontrolled Invalid Interpretation Code [facility] 1=Controlled Invalid Interpretation Code [facility] managing chronic illness Invalid Interpretation Code [facility] Risk Level 2= 4-6 Invalid Interpretation Code [facility] 4 Invalid Interpretation Code [facility] 0=No Invalid Interpretation Code [facility] 0 Invalid Interpretation Code [facility] 1=Yes Invalid Interpretation Code [facility] 0=N/A Invalid Interpretation Code [facility] 2=uncontrolled Invalid Interpretation Code [facility] 1=Controlled Invalid Interpretation Code [facility] Thyroidon 10-05-2017 Thyroid stimulating hormone (TSH) 1.570 uIU/mL Invalid Interpretation Code 0.40-4.10 [facility] Thyroxine (T4) free 1.170 ng/dL Invalid Interpretation Code 0.80-1.90 [facility] Otheron 03-23-2017 0=N/A Invalid Interpretation Code [facility] Risk Level 3=7-9 Invalid Interpretation Code [facility] 8 Invalid Interpretation Code [facility] Needs Completed Invalid Interpretation Code [facility] 3=Yes Invalid Interpretation Code [facility] 2=uncontrolled Invalid Interpretation Code [facility] 1=Yes Invalid Interpretation Code [facility] 0=No Invalid Interpretation Code [facility] 0=N/A Invalid Interpretation Code [facility] Risk Level 3=7-9 Invalid Interpretation Code [facility] 8 Invalid Interpretation Code [facility] Needs Completed Invalid Interpretation Code [facility] 3=Yes Invalid Interpretation Code [facility] 2=uncontrolled Invalid Interpretation Code [facility] 1=Yes Invalid Interpretation Code [facility] 0=No Invalid Interpretation Code [facility] Vital Signs Date Time Vital Sign Value Performing Clinician Facility 03-12-2024 12:48-0400 Diastolic blood pressure 70 mm[Hg] Ena Fung [employer] Work Phone: [facility] 03-12-2024 12:48-0400 Heart rate 81 /min Ena Fung [employer] Work Phone: [facility] 03-12-2024 12:48-0400 Systolic blood pressure 121 mm[Hg] Ena Fung [employer] Work Phone: [facility] 03-12-2024 11:47-0400 Body temperature 98.01 [degF] Ena Fung [employer] Work Phone: [facility] 03-12-2024 11:47-0400 Respiratory rate 15 /min Ena Fung [employer] Work Phone: [facility] 03-12-2024 11:47-0400 SaO2% (BldA) [Mass fraction] 96 % Ena Fung [employer] Work Phone: [facility] 02-08-2024 17:02-0400 Diastolic blood pressure 91 mm[Hg] Ena Fung CNP Work Phone: [facility] Work Phone: 02-08-2024 17:02-0400 Systolic blood pressure 140 mm[Hg] Ena Fung CNP Work Phone: [facility] Work Phone: 02-08-2024 16:53-0400 Body height 162.56 cm Ena Fung CNP Work Phone: [facility] Work Phone: 02-08-2024 16:53-0400 Body mass index (BMI) [Ratio] 32.8 kg/m2 Ena Fung CNP Work Phone: [facility] Work Phone: 02-08-2024 16:53-0400 Body surface area Derived from formula 1.9 m2 Ena Fung CNP Work Phone: [facility] [facility] Work Phone: 02-08-2024 16:53-0400 Body weight 86.64 kg Ena Fung CNP Work Phone: [facility] Work Phone: 02-08-2024 16:53-0400 Diastolic blood pressure 92 mm[Hg] Ena Fung CNP Work Phone: [facility] Work Phone: 02-08-2024 16:53-0400 Heart rate 76 /min Ena Fung CNP Work Phone: [facility] Work Phone: 02-08-2024 16:53-0400 SaO2% (BldA) [Mass fraction] 98 % Ena Fung CNP Work Phone: [facility] Work Phone: 02-08-2024 16:53-0400 Systolic blood pressure 154 mm[Hg] Ena Fung CNP Work Phone: [facility] Work Phone: 01-27-2024 09:02-0400 Diastolic blood pressure 117 mm[Hg] Ena Fung CNP Work Phone: [facility] Work Phone: 01-27-2024 09:02-0400 Systolic blood pressure 148 mm[Hg] Ena Fung CNP Work Phone: [facility] Work Phone: 01-27-2024 08:51-0400 Body height 162.56 cm Ena Fung CNP Work Phone: [facility] Work Phone: 01-27-2024 08:51-0400 Body mass index (BMI) [Ratio] 32.8 kg/m2 Ena Fung CNP Work Phone: [facility] Work Phone: 01-27-2024 08:51-0400 Body surface area Derived from formula 1.9 m2 Ena Fung CNP Work Phone: [facility] Work Phone: 01-27-2024 08:51-0400 Body weight 86.64 kg Ena Fung CNP Work Phone: [facility] Work Phone: 01-27-2024 08:51-0400 Diastolic blood pressure 85 mm[Hg] Ena Fung CNP Work Phone: [facility] Work Phone: 01-27-2024 08:51-0400 Heart rate 85 /min Ena Fung CNP Work Phone: [facility] Work Phone: 01-27-2024 08:51-0400 SaO2% (BldA) [Mass fraction] 97 % Ena Fung CNP Work Phone: [facility] Work Phone: 01-27-2024 08:51-0400 Systolic blood pressure 156 mm[Hg] Ena Fung CNP Work Phone: [facility] Work Phone: 12-23-2023 18:42-0400 Diastolic blood pressure 85 mm[Hg] Jaxson Ferrer MD Work Phone: [employer] 12-23-2023 18:42-0400 Heart rate 92 /min Jaxson Ferrer MD Work Phone: [employer] 12-23-2023 18:42-0400 SaO2% (BldA) [Mass fraction] 95 % Jaxson Ferrer MD Work Phone: [employer] 12-23-2023 18:42-0400 Systolic blood pressure 124 mm[Hg] Jaxson Ferrer MD Work Phone: [employer] 12-23-2023 13:53-0400 Body mass index (BMI) [Ratio] 33.99 kg/m2 Jaxson Ferrer MD Work Phone: [employer] 12-23-2023 13:53-0400 Body temperature 98.4 [degF] Jaxson Ferrer MD Work Phone: [employer] 12-23-2023 13:53-0400 Body weight 89.81 kg Jaxson Ferrer MD Work Phone: [employer] 12-23-2023 13:53-0400 Respiratory rate 18 /min Jaxson Ferrer MD Work Phone: [employer] 09-07-2023 13:56-0500 Body height 162.56 cm Ena Fung CNP Work Phone: [facility] Work Phone: 09-07-2023 13:56-0500 Body mass index (BMI) [Ratio] 33.3 kg/m2 Ena Fung CNP Work Phone: [facility] Work Phone: 09-07-2023 13:56-0500 Body surface area Derived from formula 1.9 m2 Ena Fung CNP Work Phone: [facility] Work Phone: 09-07-2023 13:56-0500 Body temperature 98.4 [degF] Ena Fung CNP Work Phone: [facility] Work Phone: 09-07-2023 13:56-0500 Body weight 88 kg Ena Fung CNP Work Phone: [facility] Work Phone: 09-07-2023 13:56-0500 Diastolic blood pressure 82 mm[Hg] Ena Fung CNP Work Phone: [facility] Work Phone: 09-07-2023 13:56-0500 Heart rate 85 /min Ena Fung CNP Work Phone: [facility] Work Phone: 09-07-2023 13:56-0500 SaO2% (BldA) [Mass fraction] 97 % Ena Fung CNP Work Phone: [facility] Work Phone: 09-07-2023 13:56-0500 Systolic blood pressure 123 mm[Hg] Ena Fung CNP Work Phone: [facility] Work Phone: 08-20-2023 08:32-0500 Body height 162.56 cm Ena Fung CNP Work Phone: [facility] Work Phone: 08-20-2023 08:32-0500 Body mass index (BMI) [Ratio] 32.6 kg/m2 Ena Fung CNP Work Phone: [facility] Work Phone: 08-20-2023 08:32-0500 Body surface area Derived from formula 1.9 m2 Ena Fung CNP Work Phone: [facility] Work Phone: 08-20-2023 08:32-0500 Body weight 86.18 kg Ena Fung CNP Work Phone: [facility] Work Phone: 08-20-2023 08:32-0500 Diastolic blood pressure 79 mm[Hg] Ena Fung CNP Work Phone: [facility] Work Phone: 08-20-2023 08:32-0500 Heart rate 106 /min Ena Fung CNP Work Phone: [facility] Work Phone: 08-20-2023 08:32-0500 SaO2% (BldA) [Mass fraction] 97 % Ena Fung CNP Work Phone: [facility] Work Phone: 08-20-2023 08:32-0500 Systolic blood pressure 138 mm[Hg] Ena Fung CNP Work Phone: [facility] Work Phone: 08-12-2023 17:00-0500 Diastolic blood pressure 84 mm[Hg] Ena Fung BONUS CLERK - [employer] Work Phone: [employer] 08-12-2023 17:00-0500 Heart rate 80 /min Ena Fung APRN - [employer] Work Phone: [employer] 08-12-2023 17:00-0500 Respiratory rate 12 /min Ena Fung APRN - [employer] Work Phone: [employer] 08-12-2023 17:00-0500 SaO2% (BldA) [Mass fraction] 100 % Ena Fung BONUS CLERK - [employer] Work Phone: [employer] 08-12-2023 17:00-0500 Systolic blood pressure 106 mm[Hg] Ena Fung BONUS CLERK - [employer] Work Phone: [employer] 08-12-2023 15:24-0500 Body height 162.6 cm Ena Fung APRN - [facility] Work Phone: [employer] 08-12-2023 15:24-0500 Body mass index (BMI) [Ratio] 33.99 kg/m2 Ena Fung APRN - [facility] Work Phone: [facility] [employer] 08-12-2023 15:24-0500 Body temperature 98.1 [degF] Ena Fung APRN - [facility] Work Phone: [facility] [employer] 08-12-2023 15:24-0500 Body weight 89.81 kg Ena Fung APRN - [facility] Work Phone: [facility] [employer] 08-04-2023 14:22-0500 Body height 162.56 cm Ena Fung CNP Work Phone: [facility] Work Phone: 08-04-2023 14:22-0500 Body mass index (BMI) [Ratio] 33.6 kg/m2 Ena Fung CNP Work Phone: [facility] Work Phone: 08-04-2023 14:22-0500 Body surface area Derived from formula 1.9 m2 Ena Fung CNP Work Phone: [facility] Work Phone: 08-04-2023 14:22-0500 Body weight 88.91 kg Ena Fung CNP Work Phone: [facility] Work Phone: 08-04-2023 14:22-0500 Diastolic blood pressure 87 mm[Hg] Ena Fung CNP Work Phone: [facility] Work Phone: 08-04-2023 14:22-0500 Heart rate 90 /min Ena Fung CNP Work Phone: [facility] Work Phone: 08-04-2023 14:22-0500 SaO2% (BldA) [Mass fraction] 97 % Ena Fung CNP Work Phone: [facility] Work Phone: 08-04-2023 14:22-0500 Systolic blood pressure 133 mm[Hg] Ena Fung [employer] Work Phone: [facility] Work Phone: 07-20-2023 10:45-0500 Body mass index (BMI) [Ratio] 32.61 kg/m2 Lisa Blackman DO Work Phone: [employer] 07-20-2023 10:45-0500 Body temperature 100.8 [degF] Lisa Blackman DO Work Phone: [employer] 07-20-2023 10:45-0500 Body weight 86.18 kg Lisa Blackman DO Work Phone: [employer] 07-20-2023 10:45-0500 Diastolic blood pressure 86 mm[Hg] Lisa Blackman DO Work Phone: [employer] 07-20-2023 10:45-0500 Heart rate 100 /min Lisa Blackman DO Work Phone: [employer] 07-20-2023 10:45-0500 Respiratory rate 20 /min Lisa Blackman DO Work Phone: [employer] 07-20-2023 10:45-0500 SaO2% (BldA) [Mass fraction] 96 % Lisa Blackman DO Work Phone: [employer] 07-20-2023 10:45-0500 Systolic blood pressure 153 mm[Hg] Lisa Blackman DO Work Phone: [employer] 03-11-2023 12:15-0400 Diastolic blood pressure 54 mm[Hg] [facility] 03 [employer] 03-11-2023 12:15-0400 Heart rate 88 /min [facility] 03 [facility] 03-11-2023 12:15-0400 Respiratory rate 18 /min [facility] 03 [facility] 03-11-2023 12:15-0400 Systolic blood pressure 100 mm[Hg] [facility] 03 [facility] 03-05-2023 15:35-0400 Body temperature 100 [degF] Ena Fung APRN - [facility] Work Phone: [facility] 03-05-2023 15:35-0400 Diastolic blood pressure 96 mm[Hg] Ena Fung APRN [facility] Work Phone: [facility] 03-05-2023 15:35-0400 Heart rate 99 /min Ena Fung APRN [facility] Work Phone: [facility] 03-05-2023 15:35-0400 Respiratory rate 18 /min Ena Fung APRN [facility] Work Phone: [facility] 03-05-2023 15:35-0400 SaO2% (BldA) [Mass fraction] 99 % Ena Fung APRN - [facility] Work Phone: [employer] [facility] 03-05-2023 15:35-0400 Systolic blood pressure 145 mm[Hg] Ena Fung APRN - [facility] Work Phone: [facility] 02-22-2023 16:16-0400 Diastolic blood pressure 46 mm[Hg] Ena Fung APRN - [facility] Work Phone: [facility] 02-22-2023 16:16-0400 Heart rate 78 /min Ena Fung APRN [facility] Work Phone: [facility] 02-22-2023 16:16-0400 SaO2% (BldA) [Mass fraction] 95 % Ena Fung APRN - [facility] Work Phone: [facility] [employer] [facility] 02-22-2023 16:16-0400 Systolic blood pressure 116 mm[Hg] Ena Fung APRN [facility] Work Phone: [facility] [employer] 02-22-2023 13:40-0400 Body height 162.6 cm Ena Fung APRN - [facility] Work Phone: [facility] [employer] 02-22-2023 13:40-0400 Body mass index (BMI) [Ratio] 33.47 kg/m2 Ena Fung APRN - [employer] Work Phone: [facility] [employer] 02-22-2023 13:40-0400 Body temperature 98.1 [degF] Ena Fung APRN - [employer] Work Phone: [facility] [employer] 02-22-2023 13:40-0400 Body weight 88.45 kg Ena Fung APRN - [employer] Work Phone: [facility] [employer] 02-22-2023 13:40-0400 Respiratory rate 16 /min Ena Fung APRN - [employer] Work Phone: [facility] [employer] 02-01-2023 13:54-0400 Body height 162.56 cm Ena Fung CNP Work Phone: [facility] Work Phone: 02-01-2023 13:54-0400 Body mass index (BMI) [Ratio] 34.2 kg/m2 Ena Fung CNP Work Phone: [facility] Work Phone: 02-01-2023 13:54-0400 Body surface area Derived from formula 2 m2 Ena Fung CNP Work Phone: [facility] Work Phone: 02-01-2023 13:54-0400 Body temperature 98.3 [degF] Ena Fung CNP Work Phone: [facility] Work Phone: 02-01-2023 13:54-0400 Body weight 90.27 kg Ena Fung CNP Work Phone: [facility] Work Phone: 02-01-2023 13:54-0400 Diastolic blood pressure 84 mm[Hg] Ena Fung [employer] Work Phone: [facility] Work Phone: 02-01-2023 13:54-0400 Heart rate 72 /min Ena Fung [employer] Work Phone: [facility] Work Phone: 02-01-2023 13:54-0400 SaO2% (BldA) [Mass fraction] 96 % Ena Fung [employer] Work Phone: [facility] Work Phone: 02-01-2023 13:54-0400 Systolic blood pressure 121 mm[Hg] Ena Fung [employer] BU[employer] Work Phone: [facility] Work Phone: 12-21-2022 11:10-0400 Diastolic blood pressure 75 mm[Hg] Ena Fung BONUS CLERK - [employer] Work Phone: [facility] [employer] 12-21-2022 11:10-0400 Systolic blood pressure 113 mm[Hg] Ena Fung BONUS CLERK - [employer] Work Phone: [facility] [employer] [employer] 12-21-2022 11:09-0400 Body temperature 97.7 [degF] Ena Fung BONUS CLERK - [employer] Work Phone: [facility] [employer] [facility] 12-21-2022 11:09-0400 Heart rate 68 /min Ena Fung BONUS CLERK - [employer] Work Phone: [facility] [employer] 12-21-2022 11:09-0400 Respiratory rate 16 /min Ena Fung BONUS CLERK - [employer] BU[employer] Work Phone: [facility] [employer] [facility] 12-21-2022 11:09-0400 SaO2% (BldA) [Mass fraction] 98 % Ena Fung BONUS CLERK - [employer] BU[employer] Work Phone: [facility] 12-21-2022 10:34-0400 Body height 162.56 cm Ena Fung CNP Work Phone: [facility] Work Phone: 12-21-2022 10:34-0400 Body mass index (BMI) [Ratio] 33.6 kg/m2 Ena Fung CNP Work Phone: [facility] Work Phone: 12-21-2022 10:34-0400 Body surface area Derived from formula 1.9 m2 Ena Fung CNP Work Phone: [facility] Work Phone: 12-21-2022 10:34-0400 Body temperature 98.3 [degF] Ena Fung CNP Work Phone: [facility] Work Phone: 12-21-2022 10:34-0400 Body weight 88.91 kg Ena Fung CNP Work Phone: [facility] Work Phone: 12-21-2022 10:34-0400 Diastolic blood pressure 66 mm[Hg] Ena Fung CNP Work Phone: [facility] Work Phone: 12-21-2022 10:34-0400 Heart rate 66 /min Ena Fung CNP Work Phone: [facility] Work Phone: 12-21-2022 10:34-0400 SaO2% (BldA) [Mass fraction] 97 % Ena Fung CNP Work Phone: [facility] Work Phone: 12-21-2022 10:34-0400 Systolic blood pressure 110 mm[Hg] Ena Fung CNP Work Phone: [facility] Work Phone: 11-19-2022 11:05-0400 Body height 162.56 cm Ena Fung CNP Work Phone: [facility] Work Phone: 11-19-2022 11:05-0400 Body mass index (BMI) [Ratio] 34.2 kg/m2 Ena Fung CNP Work Phone: [facility] Work Phone: 11-19-2022 11:05-0400 Body surface area Derived from formula 2 m2 Ena Fung CNP Work Phone: [facility] Work Phone: 11-19-2022 11:05-0400 Body temperature 98.8 [degF] Ena Fung CNP Work Phone: [facility] Work Phone: 11-19-2022 11:05-0400 Body weight 90.45 kg Ena Fung CNP Work Phone: [facility] Work Phone: 11-19-2022 11:05-0400 Diastolic blood pressure 79 mm[Hg] Ena Fung CNP Work Phone: [facility] Work Phone: 11-19-2022 11:05-0400 Heart rate 93 /min Ena Fung CNP Work Phone: [facility] Work Phone: 11-19-2022 11:05-0400 SaO2% (BldA) [Mass fraction] 97 % Ena Fung CNP Work Phone: [facility] Work Phone: 11-19-2022 11:05-0400 Systolic blood pressure 121 mm[Hg] Ena Fung CNP Work Phone: [facility] Work Phone: 08-20-2022 18:00-0500 Diastolic blood pressure 62 mm[Hg] Ronan Rodriguez MD Work Phone: [facility] 08-20-2022 18:00-0500 Heart rate 72 /min Ronan Rodriguez MD Work Phone: [facility] 08-20-2022 18:00-0500 Respiratory rate 24 /min Ronan Rodriguez MD Work Phone: [facility] 08-20-2022 18:00-0500 SaO2% (BldA) [Mass fraction] 98 % Ronan Rodriguez MD Work Phone: [facility] 08-20-2022 18:00-0500 Systolic blood pressure 100 mm[Hg] Ronan Rodriguez MD Work Phone: [facility] 08-20-2022 15:06-0500 Body temperature 98.29 [degF] Ronan Rodriguez MD Work Phone: [facility] 08-20-2022 14:04-0500 Diastolic blood pressure 58 mm[Hg] Ena Prateren BONUS CLERK - [employer] Work Phone: [facility] 08-20-2022 14:04-0500 Heart rate 62 /min Ena Prateren BONUS CLERK - [employer] Work Phone: [facility] 08-20-2022 14:04-0500 Respiratory rate 15 /min Ena Kenton BONUS CLERK - [employer] Work Phone: [facility] 08-20-2022 14:04-0500 SaO2% (BldA) [Mass fraction] 96 % Ena Kenton BONUS CLERK - [employer] Work Phone: [facility] 08-20-2022 14:04-0500 Systolic blood pressure 97 mm[Hg] Ena Kenton BONUS CLERK - [employer] Work Phone: [facility] 08-20-2022 12:15-0500 Body temperature 98.2 [degF] Ena Kenton BONUS CLERK - [employer] Work Phone: [facility] [employer] 07-28-2022 10:57-0500 Diastolic blood pressure 63 mm[Hg] Jaxson Ferrer MD Work Phone: [facility] [employer] 07-28-2022 10:57-0500 SaO2% (BldA) [Mass fraction] 99 % Jaxson Ferrer MD Work Phone: [facility] [employer] 07-28-2022 10:57-0500 Systolic blood pressure 131 mm[Hg] Jaxson Ferrer MD Work Phone: [facility] [employer] 07-28-2022 08:45-0500 Respiratory rate 18 /min Jaxson Ferrer MD Work Phone: [facility] [employer] 07-28-2022 08:43-0500 Body temperature 98.01 [degF] Jaxson Ferrer MD Work Phone: [facility] [employer] 07-28-2022 08:43-0500 Heart rate 68 /min Jaxson Ferrer MD Work Phone: [facility] [employer] 05-01-2022 18:56-0400 Respiratory rate 15 /min Thad Berrios MD [facility] 05-01-2022 18:30-0400 Body temperature 98.4 [degF] Thad Berrios MD [facility] [employer] 05-01-2022 18:30-0400 Diastolic blood pressure 41 mm[Hg] Thad Berrios MD [facility] 05-01-2022 18:30-0400 Heart rate 74 /min Thad Berrios MD [email or web address] 05-01-2022 18:30-0400 SaO2% (BldA) [Mass fraction] 97 % Thad Berrios MD [facility] [employer] 05-01-2022 18:30-0400 Systolic blood pressure 108 mm[Hg] Thad Berrios MD [facility] 04-13-2022 11:37-0400 Body height 162.56 cm Ena Fung CNP Work Phone: [facility] Work Phone: 04-13-2022 11:37-0400 Body mass index (BMI) [Ratio] 32.6 kg/m2 Ena Fung CNP Work Phone: [facility] Work Phone: 04-13-2022 11:37-0400 Body surface area Derived from formula 1.91 m2 Ena Fung CNP Work Phone: [facility] Work Phone: 04-13-2022 11:37-0400 Body surface area Derived from formula 1.9 m2 Ena Fung CNP Work Phone: [facility] Work Phone: 04-13-2022 11:37-0400 Body temperature 97.3 [degF] Ena Fung CNP Work Phone: [facility] Work Phone: 04-13-2022 11:37-0400 Body weight 86.18 kg Ena Fung CNP Work Phone: [facility] Work Phone: 04-13-2022 11:37-0400 Diastolic blood pressure 80 mm[Hg] Ena Fung CNP Work Phone: [facility] Work Phone: 04-13-2022 11:37-0400 Heart rate 81 /min Ena Fung CNP Work Phone: [facility] Work Phone: 04-13-2022 11:37-0400 SaO2% (BldA) [Mass fraction] 98 % Ena Fung CNP Work Phone: [facility] Work Phone: 04-13-2022 11:37-0400 Systolic blood pressure 118 mm[Hg] Ena Fung CNP Work Phone: [facility] Work Phone: 01-30-2022 08:13-0400 Body height 162.56 cm Ena Fung CNP Work Phone: [facility] Work Phone: 01-30-2022 08:13-0400 Body mass index (BMI) [Ratio] 32.8 kg/m2 Ena Fung CNP Work Phone: [facility] Work Phone: 01-30-2022 08:13-0400 Body surface area Derived from formula 1.92 m2 Ena uFng CNP Work Phone: [facility] Work Phone: 01-30-2022 08:13-0400 Body surface area Derived from formula 1.9 m2 Ena Fung CNP Work Phone: [facility] Work Phone: 01-30-2022 08:13-0400 Body temperature 97.4 [degF] Ena Fung CNP Work Phone: [facility] Work Phone: 01-30-2022 08:13-0400 Body weight 86.55 kg Ena Fung CNP Work Phone: [facility] Work Phone: 01-30-2022 08:13-0400 Diastolic blood pressure 76 mm[Hg] Ena Fung CNP Work Phone: [facility] Work Phone: 01-30-2022 08:13-0400 Heart rate 81 /min Ena Fung CNP Work Phone: [facility] Work Phone: 01-30-2022 08:13-0400 SaO2% (BldA) [Mass fraction] 98 % Ena Fung CNP Work Phone: [facility] Work Phone: 01-30-2022 08:13-0400 Systolic blood pressure 120 mm[Hg] Ena Fung [employer] Work Phone: [facility] Work Phone: 12-19-2021 17:58-0400 SaO2% (BldA) [Mass fraction] 96 % Santhosh Schwab MD Work Phone: [employer] 12-19-2021 17:53-0400 Diastolic blood pressure 67 mm[Hg] Santhosh Schwab MD Work Phone: [employer] 12-19-2021 17:53-0400 Systolic blood pressure 126 mm[Hg] Santhosh Schwab MD Work Phone: [employer] 12-19-2021 17:52-0400 Body temperature 98.01 [degF] Santhosh Schwab MD Work Phone: [employer] 12-19-2021 17:52-0400 Heart rate 80 /min Santhosh Schwab MD Work Phone: [employer] 12-19-2021 17:52-0400 Respiratory rate 18 /min Santhosh Schwab MD Work Phone: [employer] 11-26-2021 11:46-0400 Body height 162.56 cm Ena Fung [employer] BU[employer] Work Phone: [facility] Work Phone: 11-26-2021 11:46-0400 Body mass index (BMI) [Ratio] 32.3 kg/m2 Ena Fung [employer] Work Phone: [facility] Work Phone: 11-26-2021 11:46-0400 Body surface area Derived from formula 1.91 m2 Ena Fung [employer] Work Phone: [facility] Work Phone: 11-26-2021 11:46-0400 Body surface area Derived from formula 1.9 m2 Ena Fung CNP Work Phone: [facility] Work Phone: 11-26-2021 11:46-0400 Body temperature 97.7 [degF] Ena Fung CNP Work Phone: [facility] Work Phone: 11-26-2021 11:46-0400 Body weight 85.28 kg Ena Fung CNP Work Phone: [facility] Work Phone: 11-26-2021 11:46-0400 Diastolic blood pressure 72 mm[Hg] Ena Fung CNP Work Phone: [facility] Work Phone: 11-26-2021 11:46-0400 Heart rate 73 /min Ena Fung CNP Work Phone: [facility] Work Phone: 11-26-2021 11:46-0400 SaO2% (BldA) [Mass fraction] 96 % Ena Fung CNP Work Phone: [facility] Work Phone: 11-26-2021 11:46-0400 Systolic blood pressure 118 mm[Hg] Ena Fung CNP Work Phone: [facility] Work Phone: 11-21-2021 19:27-0400 Body height 162.6 cm Ena Fung APRN - [employer] Work Phone: [facility] [employer] 11-21-2021 19:27-0400 Body mass index (BMI) [Ratio] 32.61 kg/m2 Ena Fung APRN - [employer] Work Phone: [employer] 11-21-2021 19:27-0400 Body temperature 98.01 [degF] Ena Oviedo CNP Work Phone: [employer] 11-21-2021 19:27-0400 Body weight 86.18 kg Ena [facility]iedo CNP [facility] 11-21-2021 19:27-0400 Diastolic blood pressure 71 mm[Hg] Ena [facility]viedo CNP [facility] 11-21-2021 19:27-0400 Heart rate 86 /min Ena [facility]viedo CNP [facility] 11-21-2021 19:27-0400 Respiratory rate 16 /min Ena [facility]viedo CNP [facility] 11-21-2021 19:27-0400 SaO2% (BldA) [Mass fraction] 99 % Ena Oviedo CNP [facility] 11-21-2021 19:27-0400 Systolic blood pressure 131 mm[Hg] Ena Oviedo CNP Work Phone: [employer] 11-06-2021 13:45-0400 Diastolic blood pressure 68 mm[Hg] [address] 11-06-2021 13:45-0400 Heart rate 57 /min [address] 11-06-2021 13:45-0400 Respiratory rate 14 /min [facility] [employer] 11-06-2021 13:45-0400 SaO2% (BldA) [Mass fraction] 99 % [address] 11-06-2021 13:45-0400 Systolic blood pressure 118 mm[Hg] [facility] [employer] 10-30-2021 12:00-0400 Body temperature 98.6 [degF] Ronan Rodriguez MD Work Phone: [employer] 10-30-2021 12:00-0400 Diastolic blood pressure 53 mm[Hg] Ronan Rodriguez MD Work Phone: [employer] 10-30-2021 12:00-0400 Heart rate 69 /min Ronan Rodriguez MD Work Phone: [facility] [employer] 10-30-2021 12:00-0400 Respiratory rate 18 /min Ronan Rodriguez MD Work Phone: [facility] [employer] 10-30-2021 12:00-0400 SaO2% (BldA) [Mass fraction] 98 % Ronan Rodriguez MD Work Phone: [facility] [employer] 10-30-2021 12:00-0400 Systolic blood pressure 133 mm[Hg] Ronan Rodriguez MD Work Phone: [facility] [employer] 10-27-2021 11:56-0400 Body height 162.56 cm Ena Fung CNP Work Phone: [facility] Work Phone: 10-27-2021 11:56-0400 Body mass index (BMI) [Ratio] 33 kg/m2 Ena Fung CNP Work Phone: [facility] Work Phone: 10-27-2021 11:56-0400 Body surface area Derived from formula 1.92 m2 Ena Fung CNP Work Phone: [facility] Work Phone: 10-27-2021 11:56-0400 Body temperature 97.9 [degF] Ena Kenton SHAMIR Work Phone: [facility] Work Phone: 10-27-2021 11:56-0400 Body weight 87.09 kg Ena Kenton SHAMIR Work Phone: [facility] Work Phone: 10-27-2021 11:56-0400 Diastolic blood pressure 88 mm[Hg] Ena Fung CNP Work Phone: [facility] Work Phone: 10-27-2021 11:56-0400 Heart rate 103 /min Ena Kenton [employer] Work Phone: [facility] [facility] Work Phone: 10-27-2021 11:56-0400 SaO2% (BldA) [Mass fraction] 98 % Ena Fung [employer] Work Phone: [facility] Work Phone: 10-27-2021 11:56-0400 Systolic blood pressure 118 mm[Hg] Ena Fung [employer] Work Phone: [facility] Work Phone: 10-23-2021 07:50-0400 Body temperature 97.81 [degF] Janae Oropeza MD Work Phone: [employer] 10-23-2021 07:00-0400 Diastolic blood pressure 72 mm[Hg] Janae Oropeza MD Work Phone: [employer] 10-23-2021 07:00-0400 Heart rate 68 /min Janae Oropeza MD Work Phone: [employer] 10-23-2021 07:00-0400 Respiratory rate 12 /min Janae Oropeza MD Work Phone: [employer] 10-23-2021 07:00-0400 SaO2% (BldA) [Mass fraction] 93 % Janae Oropeza MD Work Phone: [employer] 10-23-2021 07:00-0400 Systolic blood pressure 98 mm[Hg] Janae Oropeza MD Work Phone: [employer] 10-20-2021 20:59-0400 Body mass index (BMI) [Ratio] 31.45 kg/m2 Janae Oropeza MD Work Phone: [employer] 10-20-2021 20:59-0400 Body weight 83.1 kg Janae Oropeza MD Work Phone: [employer] 10-19-2021 22:43-0400 Body height 162.6 cm Janae Oropeza MD Work Phone: [employer] 10-19-2021 21:45-0400 Diastolic blood pressure 54 mm[Hg] Olaf Pineda MD Work Phone: [employer] 10-19-2021 21:45-0400 Heart rate 64 /min Olaf Pineda MD Work Phone: [employer] 10-19-2021 21:45-0400 Respiratory rate 18 /min [facility]-19-2021 21:45-0400 SaO2% (BldA) [Mass fraction] 99 % Olaf Pineda MD Work Phone: [employer] 10-19-2021 21:45-0400 Systolic blood pressure 132 mm[Hg] Olaf Pineda MD Work Phone: [facility] [employer] 10-19-2021 20:47-0400 Body mass index (BMI) [Ratio] 33.23 kg/m2 Olaf Pineda MD Work Phone: [facility] [employer] 10-19-2021 20:47-0400 Body temperature 97.9 [degF] Olaf Pineda MD Work Phone: [facility] [employer] 10-19-2021 20:47-0400 Body weight 87.8 kg Olaf Pineda MD Work Phone: [facility] [employer] 10-19-2021 20:06-0400 Body height 162.6 cm Olaf Pineda MD Work Phone: [facility] [employer] 10-13-2021 14:04-0400 Body height 162.56 cm Ena Fung CNP Work Phone: [facility] Work Phone: 10-13-2021 14:04-0400 Body mass index (BMI) [Ratio] 32.7 kg/m2 Ena Fung CNP Work Phone: [facility] Work Phone: 10-13-2021 14:04-0400 Body surface area Derived from formula 1.92 m2 Ena Fung CNP Work Phone: [facility] Work Phone: 10-13-2021 14:04-0400 Body temperature 97.2 [degF] Ena Fung CNP Work Phone: [facility] Work Phone: 10-13-2021 14:04-0400 Body weight 86.35 kg Ena Fung CNP Work Phone: [facility] Work Phone: 10-13-2021 14:04-0400 Diastolic blood pressure 78 mm[Hg] Ena Fung CNP Work Phone: [facility] Work Phone: 10-13-2021 14:04-0400 Heart rate 78 /min Ena Fung CNP Work Phone: [facility] Work Phone: 10-13-2021 14:04-0400 SaO2% (BldA) [Mass fraction] 99 % Ena Fung CNP Work Phone: [facility] Work Phone: 10-13-2021 14:04-0400 Systolic blood pressure 122 mm[Hg] Ena Fung CNP Work Phone: [facility] Work Phone: 10-07-2021 13:04-0400 Body temperature 98.49 [degF] Santhosh Schwab MD Work Phone: [employer] 10-07-2021 13:04-0400 Diastolic blood pressure 94 mm[Hg] Santhosh Schwab MD Work Phone: [employer] 10-07-2021 13:04-0400 Heart rate 85 /min Santhosh Schwab MD Work Phone: [employer] 10-07-2021 13:04-0400 Respiratory rate 18 /min Santhosh Schwab MD Work Phone: [employer] 10-07-2021 13:04-0400 SaO2% (BldA) [Mass fraction] 96 % Santhosh Schwab MD Work Phone: [employer] 10-07-2021 13:04-0400 Systolic blood pressure 152 mm[Hg] Santhosh Schwab MD Work Phone: [employer] 10-07-2021 07:34-0400 Body height 162.6 cm Santhosh Schwab MD Work Phone: [employer] 10-06-2021 22:34-0400 Body mass index (BMI) [Ratio] 32.65 kg/m2 Santhosh Schwab MD Work Phone: [employer] 10-06-2021 22:34-0400 Body weight 86.27 kg Santhosh Schwab MD Work Phone: [employer] 08-14-2021 10:59-0500 Body height 162.6 cm Geoff Chu MD Work Phone: [employer] 08-14-2021 10:59-0500 Body mass index (BMI) [Ratio] 32.51 kg/m2 Geoff Chu MD Work Phone: [employer] 08-14-2021 10:59-0500 Body temperature 97.39 [degF] Geoff Chu MD Work Phone: [employer] 08-14-2021 10:59-0500 Body weight 85.91 kg Geoff Chu MD Work Phone: [employer] 08-14-2021 10:59-0500 Diastolic blood pressure 63 mm[Hg] Geoff Chu MD Work Phone: [employer] 08-14-2021 10:59-0500 Heart rate 79 /min Geoff Chu MD Work Phone: [employer] 08-14-2021 10:59-0500 Respiratory rate 18 /min Geoff Chu MD Work Phone: [employer] 08-14-2021 10:59-0500 SaO2% (BldA) [Mass fraction] 97 % Geoff Chu MD Work Phone: [employer] 08-14-2021 10:59-0500 Systolic blood pressure 120 mm[Hg] Geoff Chu MD Work Phone: [employer] 07-08-2021 14:55-0500 Diastolic blood pressure 65 mm[Hg] Ena Fung BONUS CLERK - [employer] Work Phone: [employer] 07-08-2021 14:55-0500 Heart rate 66 /min Ena Fung BONUS CLERK - [employer] Work Phone: [employer] 07-08-2021 14:55-0500 Respiratory rate 16 /min Ena Fung BONUS CLERK - [employer] Work Phone: [employer] 07-08-2021 14:55-0500 SaO2% (BldA) [Mass fraction] 95 % Ena Fung BONUS CLERK - [employer] Work Phone: [employer] 07-08-2021 14:55-0500 Systolic blood pressure 125 mm[Hg] Ena Fung BONUS CLERK - [employer] Work Phone: [employer] 07-08-2021 12:18-0500 Body temperature 98.1 [degF] Ena Fung BONUS CLERK - [employer] Work Phone: [employer] 06-19-2021 17:15-0500 Diastolic blood pressure 55 mm[Hg] Nat Mora MD Work Phone: [employer] 06-19-2021 17:15-0500 Heart rate 70 /min Nat Mora MD Work Phone: [employer] 06-19-2021 17:15-0500 Respiratory rate 20 /min Nat Mora MD Work Phone: [employer] 06-19-2021 17:15-0500 SaO2% (BldA) [Mass fraction] 98 % Nat Mora MD Work Phone: [employer] 06-19-2021 17:15-0500 Systolic blood pressure 106 mm[Hg] Nat Mora MD Work Phone: [employer] 06-19-2021 14:20-0500 Body height 162.6 cm Nat Mora MD Work Phone: [employer] 06-19-2021 14:20-0500 Body mass index (BMI) [Ratio] 31.93 kg/m2 Nat Mora MD Work Phone: [employer] 06-19-2021 14:20-0500 Body temperature 97.3 [degF] Nat Mora MD Work Phone: [employer] 06-19-2021 14:20-0500 Body weight 84.37 kg Nat Mora MD Work Phone: [employer] 06-06-2021 13:45-0500 Diastolic blood pressure 72 mm[Hg] Mariana Adames DO Work Phone: [employer] 06-06-2021 13:45-0500 Heart rate 62 /min Mariana Adames DO Work Phone: [employer] 06-06-2021 13:45-0500 Respiratory rate 19 /min Mariana Adames DO Work Phone: [employer] 06-06-2021 13:45-0500 Systolic blood pressure 139 mm[Hg] Mariana Adames DO Work Phone: [employer] 06-06-2021 13:15-0500 SaO2% (BldA) [Mass fraction] 98 % Mariana Adames DO Work Phone: [employer] 06-06-2021 09:48-0500 Body temperature 97.3 [degF] Mariana Adames DO Work Phone: [employer] 05-22-2021 16:55-0400 Diastolic blood pressure 92 mm[Hg] Ruiz Romero MD Work Phone: [employer] Work Phone: 05-22-2021 16:55-0400 Systolic blood pressure 177 mm[Hg] Ruiz Romero MD Work Phone: [employer] Work Phone: 05-22-2021 16:53-0400 Body mass index (BMI) [Ratio] 30.9 kg/m2 Ruiz Romero MD Work Phone: [employer] Work Phone: 05-22-2021 16:53-0400 Body temperature 97.81 [degF] Ruiz Romero MD Work Phone: [employer] Work Phone: 05-22-2021 16:53-0400 Body weight 81.65 kg Ruiz Romero MD Work Phone: [employer] Work Phone: 05-22-2021 16:53-0400 Heart rate 77 /min Ruiz Romero MD Work Phone: [employer] Work Phone: 05-22-2021 16:53-0400 Respiratory rate 16 /min Ruiz Romero MD Work Phone: [employer] Work Phone: 05-22-2021 16:53-0400 SaO2% (BldA) [Mass fraction] 98 % Ruiz Romero MD Work Phone: [employer] Work Phone: 03-20-2021 16:03-0400 Body height 162.56 cm Ena Fung CNP Work Phone: [employer] [facility] Work Phone: 03-20-2021 16:03-0400 Body mass index (BMI) [Ratio] 31.9 kg/m2 Ena Fung CNP Work Phone: [facility] Work Phone: 03-20-2021 16:03-0400 Body surface area Derived from formula 1.9 m2 Ena Fung CNP Work Phone: [facility] Work Phone: 03-20-2021 16:03-0400 Body weight 84.37 kg Ena Fung CNP Work Phone: [facility] Work Phone: 02-05-2021 19:19-0400 Body height 162.56 cm Ena Fung CNP Work Phone: [facility] Work Phone: 02-05-2021 19:19-0400 Body mass index (BMI) [Ratio] 31.9 kg/m2 Ena Fung CNP Work Phone: [facility] Work Phone: 02-05-2021 19:19-0400 Body surface area Derived from formula 1.9 m2 Ena Fung CNP Work Phone: [facility] Work Phone: 02-05-2021 19:19-0400 Body temperature 95.1 [degF] Ena Fung CNP Work Phone: [facility] Work Phone: 02-05-2021 19:19-0400 Body weight 84.37 kg Ena Fung CNP Work Phone: [facility] Work Phone: 02-05-2021 19:19-0400 Diastolic blood pressure 74 mm[Hg] Ena Fung CNP Work Phone: [facility] Work Phone: 02-05-2021 19:19-0400 Heart rate 62 /min Ena Fung CNP Work Phone: [facility] Work Phone: 02-05-2021 19:19-0400 Respiratory rate 18 /min Ena Fung CNP Work Phone: [facility] Work Phone: 02-05-2021 19:19-0400 SaO2% (BldA) [Mass fraction] 99 % Ena Fung CNP Work Phone: [facility] Work Phone: 02-05-2021 19:19-0400 Systolic blood pressure 110 mm[Hg] Ena Fung CNP Work Phone: [facility] Work Phone: 01-29-2021 06:32-0400 Body temperature 98.8 [degF] Antony Borges MD Work Phone: [employer] Work Phone: 01-29-2021 06:32-0400 Diastolic blood pressure 76 mm[Hg] Antony Borges MD Work Phone: [employer] Work Phone: 01-29-2021 06:32-0400 Heart rate 65 /min Antony Borges MD Work Phone: [employer] Work Phone: 01-29-2021 06:32-0400 Respiratory rate 16 /min Antony Borges MD Work Phone: [employer] Work Phone: 01-29-2021 06:32-0400 SaO2% (BldA) [Mass fraction] 99 % Antony Borges MD Work Phone: [employer] Work Phone: 01-29-2021 06:32-0400 Systolic blood pressure 134 mm[Hg] Antony Borges MD Work Phone: [employer] Work Phone: 01-08-2021 16:50-0400 Body height 162.56 cm Ena Fung CNP Work Phone: [facility] Work Phone: 01-08-2021 16:50-0400 Body mass index (BMI) [Ratio] 32.5 kg/m2 Ena Fung CNP Work Phone: [facility] Work Phone: 01-08-2021 16:50-0400 Body surface area Derived from formula 1.91 m2 Ena Fung CNP Work Phone: [facility] Work Phone: 01-08-2021 16:50-0400 Body temperature 96.2 [degF] Ena Fung CNP Work Phone: [facility] Work Phone: 01-08-2021 16:50-0400 Body weight 86 kg Ena Fung CNP Work Phone: [facility] Work Phone: 01-08-2021 16:50-0400 Diastolic blood pressure 90 mm[Hg] Ena Fung CNP Work Phone: [facility] Work Phone: 01-08-2021 16:50-0400 Heart rate 73 /min Ena Fung CNP Work Phone: [facility] Work Phone: 01-08-2021 16:50-0400 Respiratory rate 18 /min Ena Fung CNP Work Phone: [facility] Work Phone: 01-08-2021 16:50-0400 SaO2% (BldA) [Mass fraction] 99 % Ena uFng CNP Work Phone: [facility] Work Phone: 01-08-2021 16:50-0400 Systolic blood pressure 132 mm[Hg] Ena Fung CNP Work Phone: [facility] Work Phone: 01-03-2021 15:01-0400 Body temperature 98.01 [degF] Olaf Pineda MD Work Phone: [employer] Work Phone: 01-03-2021 15:01-0400 Diastolic blood pressure 64 mm[Hg] Olaf Pineda MD Work Phone: [employer] Work Phone: 01-03-2021 15:01-0400 Heart rate 55 /min Olaf Pineda MD Work Phone: [employer] Work Phone: 01-03-2021 15:01-0400 Respiratory rate 16 /min Olaf Pineda MD Work Phone: [employer] Work Phone: 01-03-2021 15:01-0400 SaO2% (BldA) [Mass fraction] 100 % Olaf Pineda MD Work Phone: [employer] Work Phone: 01-03-2021 15:01-0400 Systolic blood pressure 112 mm[Hg] Olaf Pineda MD Work Phone: [employer] Work Phone: 01-03-2021 04:00-0400 Body mass index (BMI) [Ratio] 32.17 kg/m2 Olaf Pineda MD Work Phone: [employer] Work Phone: 01-03-2021 04:00-0400 Body weight 85 kg Olaf Pineda MD Work Phone: [employer] Work Phone: 01-02-2021 12:28-0400 Body height 162.6 cm Olaf Pineda MD Work Phone: [employer] Work Phone: 11-22-2020 11:51-0400 Body mass index (BMI) [Ratio] 32.61 kg/m2 Santhosh Schwab MD Work Phone: [employer] Work Phone: 11-22-2020 11:51-0400 Body temperature 98.49 [degF] Santhosh Schwab MD Work Phone: [employer] Work Phone: 11-22-2020 11:51-0400 Body weight 86.18 kg Santhosh Schwab MD Work Phone: [employer] Work Phone: 11-22-2020 11:51-0400 Diastolic blood pressure 73 mm[Hg] Santhosh Schwab MD Work Phone: [employer] Work Phone: 11-22-2020 11:51-0400 Heart rate 64 /min Santhosh Schwab MD Work Phone: [employer] Work Phone: 11-22-2020 11:51-0400 Respiratory rate 16 /min Santhosh Schwab MD Work Phone: [employer] Work Phone: 11-22-2020 11:51-0400 SaO2% (BldA) [Mass fraction] 98 % Santhosh Schwab MD Work Phone: [employer] Work Phone: 11-22-2020 11:51-0400 Systolic blood pressure 127 mm[Hg] Santhosh Schwab MD Work Phone: [employer] Work Phone: 09-04-2020 15:16-0500 BMI (Body Mass Index) 34 kg/m2 [facility] Work Phone: 09-04-2020 15:16-0500 Body Temperature 97.9 [degF] [facility] Work Phone: 09-04-2020 15:16-0500 Body weight 89.81 kg [facility] Work Phone: 09-04-2020 15:16-0500 BP Diastolic 100 mm[Hg] [facility] Work Phone: 09-04-2020 15:16-0500 BP Systolic 140 mm[Hg] [facility] Work Phone: 09-04-2020 15:16-0500 BSA (Body Surface Area) 1.95 m2 [facility] Work Phone: 09-04-2020 15:16-0500 Height 162.56 cm [facility] Work Phone: 09-04-2020 15:16-0500 Pulse (Heart Rate) 91 /min [facility] Work Phone: 09-04-2020 15:16-0500 Pulse Oximetry 98 % [facility] Work Phone: 09-04-2020 15:16-0500 Respiratory Rate 14 /min [facility] Work Phone: 09-04-2020 15:16-0500 SaO2% (BldA) [Mass fraction] 98 % [facility] Work Phone: [facility] Work Phone: 08-29-2020 07:06-0500 Body Temperature 98.1 [degF] Mariana Adames [facility] Work Phone: 08-29-2020 07:06-0500 BP Diastolic 58 mm[Hg] [facility] Work Phone: 08-29-2020 07:06-0500 BP Systolic 112 mm[Hg] Mariana Adames [employer] Phone: 08-29-2020 07:06-0500 Pulse (Heart Rate) 53 /min Mariana Adames [employer] Phone: 08-29-2020 07:06-0500 Pulse Oximetry 95 % Mariana Adames [employer] Phone: 08-29-2020 07:06-0500 Respiratory Rate 16 /min Mariana Adames [employer] Phone: 08-29-2020 04:06-0500 BMI (Body Mass Index) 34.02 kg/m2 Mariana Adames [employer] Phone: 08-29-2020 04:06-0500 Body weight 89.9 kg Mariana Adames [employer] Phone: 08-28-2020 07:50-0500 Height 162.6 cm [facility] Phone: 06-17-2020 13:37-0500 BP Diastolic 57 mm[Hg] [place]na [place] , [place] 06-17-2020 13:37-0500 BP Systolic 118 mm[Hg] Ena [place] , [place] 06-17-2020 13:37-0500 Pulse (Heart Rate) 57 /min [place] 06-17-2020 13:37-0500 Pulse Oximetry 99 % Ena Prater[employer] , [place] 06-17-2020 13:37-0500 Respiratory Rate 16 /min Ena [employer], [place] 06-17-2020 10:28-0500 BMI (Body Mass Index) 33.81 kg/m2 Ena Prater[place] 06-17-2020 10:28-0500 Body Temperature 96.8 [degF] Ena [employer]onP[employer] [place], [place] 06-17-2020 10:28-0500 Body weight 89.36 kg [facility] , [place] 06-17-2020 10:28-0500 Height 162.6 cm [facility] , [place] 05-02-2020 13:35-0400 BMI (Body Mass Index) 33.8 kg/m2 [facility] Work Phone: 05-02-2020 13:35-0400 Body weight 90.72 kg [facility] Work Phone: 05-02-2020 13:35-0400 BSA (Body Surface Area) 1.97 m2 [facility] Work Phone: 05-02-2020 13:35-0400 Height 163.83 cm [facility] Work Phone: 04-28-2020 15:50-0400 BP Diastolic 77 mm[Hg] [facility] , [place] 04-28-2020 15:50-0400 BP Systolic 142 mm[Hg] [facility] , [place] 04-28-2020 15:48-0400 BMI (Body Mass Index) 32.44 kg/m2 [facility], [place] 04-28-2020 15:48-0400 Body Temperature 97.11 [degF] [facility], [place] 04-28-2020 15:48-0400 Body weight 85.73 kg [facility] , [place] 04-28-2020 15:48-0400 Height 162.6 cm [facility] , [place] 04-28-2020 15:48-0400 Pulse (Heart Rate) 74 /min [facility], [place] 04-28-2020 15:48-0400 Pulse Oximetry 98 % [facility] , [place] 04-28-2020 15:48-0400 Respiratory Rate 12 /min [facility] 01-15-2020 10:04-0400 Body height 163.83 cm Ena Kenton [facility] Work Phone: [facility] Work Phone: Comment on above: self 01-15-2020 10:04-0400 Body mass index (BMI) [Ratio] 33.8 kg/m2 Ena Fung CNP Work Phone: [facility] Work Phone: Comment on above: self 01-15-2020 10:04-0400 Body surface area Derived from formula 1.97 m2 Ena Fung CNP Work Phone: [employer] Work Phone: Comment on above: self 01-15-2020 10:04-0400 Body weight 90.72 kg Ena Fung CNP Work Phone: [facility] Work Phone: Comment on above: self 12-30-2019 06:34-0400 Body Temperature 97.7 [degF] Ameer [email or web address], [place] 12-30-2019 06:34-0400 BP Diastolic 64 mm[Hg] Ameer [facility] , [place] 12-30-2019 06:34-0400 BP Systolic 114 mm[Hg] Ameer [facility] , [place] 12-30-2019 06:34-0400 Pulse (Heart Rate) 70 /min Ame[facility], [place] 12-30-2019 06:34-0400 Pulse Oximetry 98 % Ameer [facility] , [place] 12-30-2019 06:34-0400 Respiratory Rate 17 /min [employer], [place] 12-29-2019 09:45-0400 BP Diastolic 64 mm[Hg] [place] , [place] 12-29-2019 09:45-0400 BP Systolic 118 mm[Hg] [place] , [place] 12-29-2019 09:45-0400 Pulse (Heart Rate) 54 /min [facility] [place] 12-29-2019 09:45-0400 Pulse Oximetry 99 % [place] , [place] 12-29-2019 09:45-0400 Respiratory Rate 16 /min Rl Boyer [employer] , [place] 12-29-2019 07:38-0400 Body Temperature 98.8 [degF] [facility] [place] 12-29-2019 06:32-0400 BMI (Body Mass Index) 34.81 kg/m2 Rl Boyer [facility], [place] 12-29-2019 06:32-0400 Body Temperature 97 [degF] Rl Boyer [employer] [place] , [place] 12-29-2019 06:32-0400 Body weight 92 kg [facility]l Bl[facility] , [place] 12-29-2019 06:32-0400 BP Diastolic 68 mm[Hg] Rl Blanc [facility] , [place] 12-29-2019 06:32-0400 BP Systolic 114 mm[Hg] Rl Blanc [facility] , [place] 12-29-2019 06:32-0400 Pulse (Heart Rate) 52 /min Rl Blanc [facility], [place] 12-29-2019 06:32-0400 Pulse Oximetry 97 % Rl Blanc [facility] , [place] 12-29-2019 06:32-0400 Respiratory Rate 14 /min [facility]l [facility] [place] 12-28-2019 14:00-0400 Height 162.6 cm Rl Boyer [facility] , [place] 10-10-2019 11:56-0400 Body Temperature 97.9 [degF] Terrence Lyle [facility], [place] 10-10-2019 11:56-0400 BP Diastolic 77 mm[Hg] [facility] [place] 10-10-2019 11:56-0400 BP Systolic 152 mm[Hg] Terrence Lyle [facility], [place] 10-10-2019 11:56-0400 Pulse (Heart Rate) 73 /min Terrence Lyle [facility], [place] 10-10-2019 11:56-0400 Pulse Oximetry 96 % Terrence Lyle [facility] , [place] 10-10-2019 11:56-0400 Respiratory Rate 14 /min Terrence Lyle [facility], [place] 10-10-2019 11:30-0400 BMI (Body Mass Index) 30.55 kg/m2 [facility] [place] 10-10-2019 11:30-0400 Body weight 80.74 kg Terrence Boyer [facility], [place] 10-10-2019 11:30-0400 Height 162.[address] [facility] , [place] 08-29-2019 13:47-0500 BP Diastolic 65 mm[Hg] Ena Fung [employer] Work Phone: 08-29-2019 13:47-0500 BP Systolic 137 mm[Hg] Ena [employer] Work Phone: 08-29-2019 11:57-0500 BMI (Body Mass Index) 31.93 kg/m2 [employer]na [employer] Work Phone: 08-29-2019 11:57-0500 Body Temperature 97.81 [degF] Ena [employer] Work Phone: 08-29-2019 11:57-0500 Body weight 84.37 kg Ena [employer] Work Phone: 08-29-2019 11:57-0500 Height 162.6 cm [employer]na [employer] Work Phone: 08-29-2019 11:57-0500 Pulse (Heart Rate) 68 /min Ena [employer] Work Phone: 08-29-2019 11:57-0500 Pulse Oximetry 97 % Ena [employer] Work Phone: 08-29-2019 11:57-0500 Respiratory Rate 16 /min Ena [employer] Work Phone: 08-21-2019 13:18-0500 Diastolic blood pressure 70 mm[Hg] Janae Landon MD Work Phone: [employer] Work Phone: 08-21-2019 13:18-0500 Heart rate 62 /min Janae Landon MD Work Phone: [employer] Work Phone: 08-21-2019 13:18-0500 Respiratory rate 18 /min Janae Landon MD Work Phone: [employer] Work Phone: 08-21-2019 13:18-0500 SaO2% (BldA) [Mass fraction] 98 % Janae Landon MD Work Phone: [employer] Work Phone: 08-21-2019 13:18-0500 Systolic blood pressure 130 mm[Hg] Janae Landon MD Work Phone: [employer] Work Phone: 08-21-2019 09:14-0500 Body mass index (BMI) [Ratio] 31.93 kg/m2 Janae Landon MD Work Phone: [employer] Work Phone: 08-21-2019 09:14-0500 Body temperature 98.01 [degF] Janae Landon MD Work Phone: [employer] Work Phone: 08-21-2019 09:14-0500 Body weight 84.37 kg Janae Landon MD Work Phone: [employer] Work Phone: 06-08-2019 20:30-0500 BP Diastolic 85 mm[Hg] Mariana [facility] , [place] 06-08-2019 20:30-0500 BP Systolic 154 mm[Hg] [facility] [place] 06-08-2019 20:30-0500 Pulse (Heart Rate) 84 /min [facility] [place] 06-08-2019 20:30-0500 Respiratory Rate 18 /min Mariana [employer]ames[employer]- [facility], [place] 06-08-2019 19:10-0500 BMI (Body Mass Index) 30.55 kg/m2 Mariana Adames [employer] [facility], [place] 11-21-2019 19:10-0500 Body weight 80.74 kg Mariana [facility] , [place] 06-08-2019 19:10-0500 Height 162.6 cm Mariana [facility]ames [facility] , [place] 06-08-2019 18:58-0500 Body Temperature 97.59 [degF] Mariana [facility], [place] 06-08-2019 18:57-0500 Pulse Oximetry 98 % Mariana Boyer [facility] , [place] 04-21-2019 08:30-0400 Body Temperature 97.7 [degF] Janae Mccabe [facility], [place] 04-21-2019 08:30-0400 BP Diastolic 67 mm[Hg] Janae Mccabe [facility] , [place] 04-21-2019 08:30-0400 BP Systolic 135 mm[Hg] Janae Mccabe [facility] , [place] 04-21-2019 08:30-0400 Pulse (Heart Rate) 77 /min Janae [facility]cc[facility], [place] 04-21-2019 08:30-0400 Pulse Oximetry 99 % Janae Mccabe [facility] , [place] 04-21-2019 08:30-0400 Respiratory Rate 21 /min Janae Boyer [facility], [place] 04-20-2019 04:39-0400 BMI (Body Mass Index) 32.75 kg/m2 Janae Boyer [facility], [place] 04-20-2019 04:39-0400 Body weight 86.55 kg Janae Boyer [facility] [facility] [place] 04-20-2019 04:39-0400 Height 162.6 cm Janae Boyer [facility] , [place] 04-19-2019 18:33-0400 Pulse (Heart Rate) 67 /min Ena Fung [facility], [place] 04-19-2019 18:33-0400 Respiratory Rate 18 /min [facility], [place] 04-19-2019 18:22-0400 BP Diastolic 78 mm[Hg] Ena Fung [facility] , [place] 04-19-2019 18:22-0400 BP Systolic 150 mm[Hg] Ena Fung [facility] , [place] 04-19-2019 13:30-0400 Pulse Oximetry 99 % [facility] , [place] 04-19-2019 13:25-0400 BMI (Body Mass Index) 32.44 kg/m2 [facility] [place] 04-19-2019 13:25-0400 Body Temperature 97.39 [degF] Ena Kenton [facility], [place] 04-19-2019 13:25-0400 [facility] [place] 06-23-2018 17:46-0500 BMI (Body Mass Index) 30.76 kg/m2 [facility] 06-23-2018 17:46-0500 Body Temperature 97 [degF] [facility] 06-23-2018 17:46-0500 BP Diastolic 64 mm[Hg] [facility] 06-23-2018 17:46-0500 BP Systolic 108 mm[Hg] [facility] 06-23-2018 17:46-0500 BSA (Body Surface Area) 1.94 m2 [facility] 06-23-2018 17:46-0500 Height 163.83 cm [facility] 06-23-2018 17:46-0500 Pulse (Heart Rate) 70 /min [facility] 06-23-2018 17:46-0500 Pulse Oximetry 96 % [facility] 06-23-2018 17:46-0500 Respiratory Rate 20 /min [facility] 06-23-2018 17:46-0500 Weight 82.56 kg [facility] 04-26-2018 18:49-0400 BMI (Body Mass Index) 32.11 kg/m2 [facility] 04-26-2018 18:49-0400 Body Temperature 97.1 [degF] [facility] 04-26-2018 18:49-0400 BP Diastolic 80 mm[Hg] [facility] 04-26-2018 18:49-0400 BP Systolic 128 mm[Hg] [facility] 04-26-2018 18:49-0400 BSA (Body Surface Area) 1.98 m2 [facility] 04-26-2018 18:49-0400 Height 163.83 cm [facility] 04-26-2018 18:49-0400 Pulse (Heart Rate) 74 /min [facility] 04-26-2018 18:49-0400 Pulse Oximetry 95 % [facility] 04-26-2018 18:49-0400 Respiratory Rate 20 /min [facility] 04-26-2018 18:49-0400 Weight 86.18 kg [facility] 04-26-2018 17:49-0400 BMI (Body Mass Index) 32.11 kg/m2 [facility] 04-26-2018 17:49-0400 Body Temperature 97.1 [degF] [facility] 04-26-2018 17:49-0400 BP Diastolic 80 mm[Hg] [facility] 04-26-2018 17:49-0400 BP Systolic 128 mm[Hg] [facility] 04-26-2018 17:49-0400 BSA (Body Surface Area) 1.98 m2 [facility] 04-26-2018 17:49-0400 Height 163.83 cm [facility] 04-26-2018 17:49-0400 Pulse (Heart Rate) 74 /min [facility] 04-26-2018 17:49-0400 Pulse Oximetry 95 % [facility] 04-26-2018 17:49-0400 Respiratory Rate 20 /min [facility] 04-26-2018 17:49-0400 Weight 86.18 kg [facility] 01-20-2018 18:17-0400 BMI (Body Mass Index) 31.62 kg/m2 [facility] 01-20-2018 18:17-0400 Body Temperature 98.2 [degF] [facility] 01-20-2018 18:17-0400 BP Diastolic 80 mm[Hg] [facility] 01-20-2018 18:17-0400 BP Systolic 110 mm[Hg] [facility] 01-20-2018 18:17-0400 BSA (Body Surface Area) 1.97 m2 [facility] 01-20-2018 18:17-0400 Height 163.83 cm [facility] 01-20-2018 18:17-0400 Pulse (Heart Rate) 84 /min [facility] 01-20-2018 18:17-0400 Pulse Oximetry 97 % [facility] 01-20-2018 18:17-0400 Respiratory Rate 18 /min [facility] 01-20-2018 18:17-0400 Weight 84.88 kg [facility] 01-20-2018 17:17-0400 BMI (Body Mass Index) 31.62 kg/m2 [facility] 01-20-2018 17:17-0400 Body Temperature 98.2 [degF] [facility] 01-20-2018 17:17-0400 BP Diastolic 80 mm[Hg] [facility] 01-20-2018 17:17-0400 BP Systolic 110 mm[Hg] [facility] 01-20-2018 17:17-0400 BSA (Body Surface Area) 1.97 m2 [facility] 01-20-2018 17:17-0400 Height 163.83 cm [facility] 01-20-2018 17:17-0400 Pulse (Heart Rate) 84 /min [facility] 01-20-2018 17:17-0400 Pulse Oximetry 97 % [facility] 01-20-2018 17:17-0400 Respiratory Rate 18 /min [facility] 01-20-2018 17:17-0400 Weight 84.88 kg [facility] 10-15-2017 14:10-0400 BP Diastolic 80 mm[Hg] [facility] 10-15-2017 14:10-0400 BP Systolic 125 mm[Hg] [facility] 10-15-2017 14:02-0400 BMI (Body Mass Index) 31.6 kg/m2 [facility] 10-15-2017 14:02-0400 Body Temperature 97.2 [degF] [facility] 10-15-2017 14:02-0400 BP Diastolic 90 mm[Hg] [facility] 10-15-2017 14:02-0400 BP Systolic 140 mm[Hg] [facility] 10-15-2017 14:02-0400 BSA (Body Surface Area) 1.96 m2 [facility] 10-15-2017 14:02-0400 Height 163.83 cm [facility] 10-15-2017 14:02-0400 Pulse (Heart Rate) 77 /min [facility] 10-15-2017 14:02-0400 Pulse Oximetry 96 % [facility] 10-15-2017 14:02-0400 Respiratory Rate 20 /min [facility] 10-15-2017 14:02-0400 Weight 84.82 kg [facility] 10-15-2017 13:10-0400 BP Diastolic 80 mm[Hg] [facility] 10-15-2017 13:10-0400 BP Systolic 125 mm[Hg] [facility] 10-15-2017 13:02-0400 BMI (Body Mass Index) 31.6 kg/m2 [facility] 10-15-2017 13:02-0400 Body Temperature 97.2 [degF] [facility] 10-15-2017 13:02-0400 BP Diastolic 90 mm[Hg] [facility] 10-15-2017 13:02-0400 BP Systolic 140 mm[Hg] [facility] 10-15-2017 13:02-0400 BSA (Body Surface Area) 1.96 m2 [facility] 10-15-2017 13:02-0400 Height 163.83 cm [facility] 10-15-2017 13:02-0400 Pulse (Heart Rate) 77 /min [facility] 10-15-2017 13:02-0400 Pulse Oximetry 96 % [facility] 10-15-2017 13:02-0400 Respiratory Rate 20 /min [facility] 10-15-2017 13:02-0400 Weight 84.82 kg [facility] 10-05-2017 14:12-0400 BMI (Body Mass Index) 31.77 kg/m2 [facility] 10-05-2017 14:12-0400 Body Temperature 97.1 [degF] [facility] 10-05-2017 14:12-0400 BP Diastolic 75 mm[Hg] [facility] 10-05-2017 14:12-0400 BP Systolic 135 mm[Hg] [facility] 10-05-2017 14:12-0400 BSA (Body Surface Area) 1.97 m2 [facility] 10-05-2017 14:12-0400 Height 163.83 cm [facility] 10-05-2017 14:12-0400 Pulse (Heart Rate) 63 /min [facility] 10-05-2017 14:12-0400 Pulse Oximetry 99 % [facility] 10-05-2017 14:12-0400 Respiratory Rate 20 /min [facility] 10-05-2017 14:12-0400 Weight 85.28 kg [facility] 10-05-2017 13:12-0400 BMI (Body Mass Index) 31.77 kg/m2 [facility] 10-05-2017 13:12-0400 Body Temperature 97.1 [degF] [facility] 10-05-2017 13:12-0400 BP Diastolic 75 mm[Hg] [facility] 10-05-2017 13:12-0400 BP Systolic 135 mm[Hg] [facility] 10-05-2017 13:12-0400 BSA (Body Surface Area) 1.97 m2 [facility] 10-05-2017 13:12-0400 Height 163.83 cm [facility] 10-05-2017 13:12-0400 Pulse (Heart Rate) 63 /min [facility] 10-05-2017 13:12-0400 Pulse Oximetry 99 % [facility] 10-05-2017 13:12-0400 Respiratory Rate 20 /min [facility] 10-05-2017 13:12-0400 Weight 85.28 kg [facility] 03-23-2017 17:42-0400 BMI (Body Mass Index) 30.93 kg/m2 [facility] 03-23-2017 17:42-0400 Body Temperature 97.8 [degF] [facility] 03-23-2017 17:42-0400 BP Diastolic 86 mm[Hg] [facility] 03-23-2017 17:42-0400 BP Systolic 138 mm[Hg] [facility] 03-23-2017 17:42-0400 BSA (Body Surface Area) 1.94 m2 [facility] 03-23-2017 17:42-0400 Height 163.83 cm [facility] 03-23-2017 17:42-0400 Pulse (Heart Rate) 77 /min [facility] 03-23-2017 17:42-0400 Pulse Oximetry 97 % [facility] 03-23-2017 17:42-0400 Respiratory Rate 18 /min [facility] 03-23-2017 17:42-0400 Weight 83.01 kg [facility] 03-23-2017 16:42-0400 BMI (Body Mass Index) 30.93 kg/m2 [facility] 03-23-2017 16:42-0400 Body Temperature 97.8 [degF] [facility] 03-23-2017 16:42-0400 BP Diastolic 86 mm[Hg] [facility] 03-23-2017 16:42-0400 BP Systolic 138 mm[Hg] [facility] 03-23-2017 16:42-0400 BSA (Body Surface Area) 1.94 m2 [facility] 03-23-2017 16:42-0400 Height 163.83 cm [facility] 03-23-2017 16:42-0400 Pulse (Heart Rate) 77 /min [facility] 03-23-2017 16:42-0400 Pulse Oximetry 97 % [facility] 03-23-2017 16:42-0400 Respiratory Rate 18 /min [facility] 03-23-2017 16:42-0400 Weight 83.01 kg [facility] Encounters Encounter Date Encounter Type Care Provider Facility Start: 06-06-2024 End: 06-10-2024 ambulatory ROBERT BARBOSA [facility] Start: 06-05-2024 End: 06-05-2024 Emergency department patient visit ENA FUNG [facility] Start: 03-12-2024 End: 03-12-2024 Emergency department patient visit ENA FUNG [facility] ED Comment on above: Other chest pain (Pr imary Dx); Hypokalemia; Grief reaction Start: 02-08-2024 End: 02-08-2024 [facility] visit, estab pt Margarita Reza TORCH CUTTER Work Phone: [facility] Work Phone: Start: 02-08-2024 End: 02-08-2024 ambulatory Ena Fung [employer]BER BU[employer] Work Phone: [facility] Work Phone: Start: 01-27-2024 End: 01-27-2024 Patient encounter procedure Ena Fung TIMBER BU[employer]ER Work Phone: [facility] Work Phone: Start: 01-27-2024 End: 01-27-2024 [facility] visit, estab pt Oliva LANCASTER Work Phone: [facility] Work Phone: Start: 01-27-2024 End: 01-27-2024 ambulatory Ena Fung [employer] Work Phone: [facility] Work Phone: Start: 01-25-2024 End: 01-25-2024 Emergency department patient visit JANAE Patel [facility] Start: 01-18-2024 End: 01-18-2024 Subsequent hospital visit by physician Nat Mora MD Work Phone: [email or web address] Comment on above: Canceled (Michelle-No Show) Start: 12-23-2023 End: 12-23-2023 Emergency department patient visit Jaxson Ferrer MD Work Phone: [facility] ED Comment on above: Atypical chest pain (Primary Dx) Start: 12-07-2023 End: 12-07-2023 ambulatory ENA FUNG [facility] Start: 09-13-2023 ambulatory Enajosefa silva BONUS CLERK-TIMBER BUYER Facility:Pulmonology & Critical Care Medicine [facility] Start: 09-07-2023 End: 09-07-2023 [facility] visit, estab pt Ena Kenton [employer] Work Phone: [facility] Work Phone: Start: 09-07-2023 End: 09-07-2023 General Vicky Call [employer] BU[employer]ER Work Phone: [facility] Work Phone: Start: 08-20-2023 End: 08-20-2023 [facility] visit, estab pt Vicky Jakub [employer] BU[employer]ER Work Phone: [facility] Work Phone: Start: 08-16-2023 End: 08-18-2023 Evaluation and management of inpatient CAR Brown MATTHEWS [facility] Start: 08-12-2023 End: 08-12-2023 Emergency department patient visit [facility] ED Comment on above: Abdominal pain, epig astric (Primary Dx); Hypokalemia Start: 08-04-2023 End: 08-04-2023 [facility] visit, estab pt Ena Kenton [place] Work Phone: [facility] Work Phone: Start: 07-20-2023 End: 07-20-2023 Emergency department patient visit Lisa Blackman DO Work Phone: [facility] ED Comment on above: Acute pharyngitis, u nspecified etiology (Primary Dx) Start: 05-06-2023 End: 05-06-2023 ambulatory RONAN RODRIGUEZ [facility] Start: 04-29-2023 End: 05-01-2023 ambulatory CAROLINE CARRION [facility] Start: 04-23-2023 End: 04-24-2023 ambulatory ENA FUNG [facility] Start: 03-11-2023 End: 03-11-2023 Subsequent hospital visit by physician [facility] Op Treatment Rm 03 [facility] Comment on above: Dog bite, initial en counter (Primary Dx) Start: 03-09-2023 End: 03-10-2023 ambulatory Asim Lucero MD Facility:[facility] Start: 03-05-2023 End: 03-05-2023 Emergency department patient visit Ena Fung APRN - TIMBER BUYER Work Phone: [facility] ED Comment on above: Dog bite of left thi gh, initial encounter (Primary Dx); Dog bite of left wrist, initial encounter; Dog bite of left hand, initial encounter Start: 02-22-2023 End: 02-22-2023 Emergency department patient visit Ena Fung APRN - TIMBER BUYER Work Phone: [facility] ED Comment on above: Abdominal pain, righ t lower quadrant (Primary Dx) Start: 02-01-2023 End: 02-01-2023 General Ena Fung CNP Work Phone: [facility] Work Phone: Start: 02-01-2023 End: 02-01-2023 [facility] visit, estab pt Ena Fung CNP Work Phone: [facility] Work Phone: Start: 12-21-2022 End: 12-21-2022 Emergency department patient visit Ena Fung APRN - TIMBER BUYER Work Phone: [facility] ED Comment on above: Injury of left shoul holden, initial encounter (Primary Dx); Sprain of right knee, unspecified ligament, initial encounter; Sprain of left wrist, initial encounter Start: 12-21-2022 End: 12-21-2022 [facility] visit, estab pt Ena Fung CNP Work Phone: [facility] Work Phone: Start: 11-19-2022 End: 11-19-2022 [facility] visit, estab pt Oliva LANCASTER Work Phone: [facility] Work Phone: Start: 11-19-2022 End: 11-19-2022 ambulatory Ena Fung CNP Work Phone: [facility] Work Phone: Start: 11-18-2022 End: 11-18-2022 Subsequent hospital visit by physician [facility] Echo Room [facility] Echocardiography Comment on above: Atypical chest pain Start: 08-20-2022 End: 08-20-2022 Subsequent hospital visit by physician Ronan Rodriguez MD Work Phone: [facility] 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 Start: 08-20-2022 End: 08-20-2022 Emergency department patient visit Ena Fung APRN - TIMBER BU[employer]ER Work Phone: [facility] ED Comment on above: Other chest pain (Pr imary Dx) Start: 07-28-2022 End: 07-28-2022 Emergency department patient visit Jaxson Ferrer MD Work Phone: [facility] ED Comment on above: Acute gastritis, pre sence of bleeding unspecified, unspecified gastritis type (Primary Dx); Nausea and vomiting, unspecified vomiting type; S/P PTCA (percutaneous transluminal coronary angioplasty) Start: 05-07-2022 End: 05-09-2022 Subsequent hospital visit by physician [facility] Mri Scanner [facility] MRI Comment on above: Cervical radiculopat hy at C6; Cervical disc disorder at C5-C6 level with myelopathy Start: 05-01-2022 End: 05-01-2022 Emergency department patient visit Thad Berrios MD [facility] ED Comment on above: Right leg pain (Prim james Dx); Fall, initial encounter Start: 04-13-2022 End: 04-13-2022 [facility] Work [facility]: [facility] Work Phone: Start: 04-13-2022 End: 04-13-2022 [facility] visit, estab pt Ena Fung TIMBER BU[employer]ER Work Phone: [facility] Work Phone: Start: 02-03-2022 End: 02-05-2022 Subsequent hospital visit by physician [facility] Ultrasound Room 2 At [facility] Ultrasound Comment on above: Abdominal pain, gene ralized Start: 01-30-2022 End: 01-30-2022 [facility]QHC visit, estab pt Ronda Dorsey [facility] Work Phone: [facility] Work Phone: Start: 12-19-2021 End: 12-19-2021 Emergency department patient visit Santhosh Schwab MD Work Phone: [facility] ED Comment on above: Acute pharyngitis, u nspecified etiology (Primary Dx) Start: 11-26-2021 End: 11-26-2021 [facility]QHC visit, estab pt Ena Fung [employer] BU[employer]ER Work Phone: [facility] Work Phone: Start: 11-21-2021 End: 11-21-2021 Emergency department patient visit Ena Fung BONUS CLERK - [employer] BU[employer]ER Work Phone: [facility] ED Comment on above: Left cervical radicu lopathy (Primary Dx) Start: 11-06-2021 End: 11-06-2021 Subsequent hospital visit by physician [facility] Account Developer Rm 1 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 Start: 10-30-2021 End: 10-30-2021 Subsequent hospital visit by physician Ronan Rodriguez MD Work Phone: [facility] 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 Start: 10-27-2021 End: 10-27-2021 General Ena Fung TIMBER BU[employer]ER Work Phone: [facility] Work Phone: Start: 10-27-2021 End: 10-27-2021 [facility]QHC visit, estab pt Ena Fung TIMBER BU[employer]ER Work Phone: [facility] Work Phone: Start: 10-27-2021 End: 10-27-2021 General Ena Kenton TIMBER BU[employer]ER Work Phone: [facility] Work Phone: Start: 10-20-2021 End: 10-23-2021 Evaluation and management of inpatient ENA FUNG [facility] Start: 10-19-2021 End: 10-23-2021 Evaluation and management of inpatient Janae Oropeza MD Work Phone: [id number] Comment on above: Cerebrovascular acci dent (CVA), unspecified mechanism (HCC) (Primary Dx) Start: 10-19-2021 End: 10-19-2021 Emergency department patient visit Olaf Pineda MD Work Phone: [facility] ED Comment on above: Cerebrovascular acci dent (CVA), unspecified mechanism (HCC) (Primary Dx); Acute left-sided weakness; Transient diplopia; Headache above the eye region Start: 10-13-2021 End: 10-13-2021 [facility] Rondamassiel Plummermons [facility] Work Phone: [facility] Work Phone: Start: 10-13-2021 End: 10-13-2021 [facility]QHC visit, estab pt Ena Fung TIMBER BU[employer]ER Work Phone: [facility] Work Phone: Start: 10-06-2021 End: 10-07-2021 Emergency department patient visit Santhosh Schwab MD Work Phone: [facility] Comment on above: Other chest pain (Pr imary Dx) Start: 08-18-2021 End: 08-22-2021 Patient encounter status [facility] Schedule [facility] PRE ADMIT Start: 08-18-2021 End: 08-22-2021 Subsequent hospital visit by physician [facility] Covid19 Pat Screening Schedule [facility] PRE ADMIT Comment on above: Preop testing (Prima ry Dx) Start: 08-14-2021 End: 08-18-2021 Patient encounter status Geoff Chu MD Work Phone: [facility] Start: 08-14-2021 End: 08-18-2021 Subsequent hospital visit by physician Geoff Chu MD Work Phone: [facility] Comment on above: Pre-op testing Start: 07-24-2021 End: 07-24-2021 Patient encounter procedure Ena Fung BONUS CLERK - [employer]BER BU[employer]ER Work Phone: [facility] Start: 07-24-2021 End: 07-24-2021 Subsequent hospital visit by physician Ena Fung APRN - TIMBER BUYER Work Phone: [facility] Laboratory Comment on above: Vulval lesion; Women's annual routine gynecological examination Start: 07-08-2021 End: 07-08-2021 Emergency department patient visit Ena Fung BONUS CLERK - [employer]BER BU[employer]ER Work Phone: [facility] ED Comment on above: Right arm pain (Prim james Dx) Start: 06-19-2021 End: 06-19-2021 Subsequent hospital visit by physician Nat Mora MD Work Phone: [facility] 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 Comment on above: Arrived Start: 06-06-2021 End: 06-06-2021 Emergency department patient visit Mariana Adames DO Work Phone: [facility] ED Comment on above: Stable angina (HCC) (Primary Dx); Dizziness Start: 05-22-2021 End: 05-22-2021 Emergency department patient visit Ruiz Romero MD Work Phone: [facility] ED Comment on above: Acute left-sided low back pain, unspecified whether sciatica present (Primary Dx) Start: 05-08-2021 End: 05-08-2021 General Ena Fung [employer]BER BU[employer] Work Phone: [facility] Work Phone: Start: 05-08-2021 End: 05-08-2021 General Ena Fung TIMBER BU[employer]ER Work Phone: [facility] Work Phone: Start: 05-08-2021 End: 05-08-2021 General Ena Fung [facility] Work Phone: [facility] Work Phone: Start: 03-20-2021 End: 03-20-2021 Telemedicine consultation with patient Veronica Renteria TIMBER BU[employer]ER Work Phone: [facility] Work Phone: Start: 03-20-2021 End: 05-08-2021 Telemedicine consultation with patient Ena Fung CNP Work Phone: [facility] Work Phone: Start: 03-20-2021 End: 03-20-2021 General Ena Fung CNP Work Phone: [facility] Work Phone: Start: 02-05-2021 End: 02-05-2021 FQ visit, estab pt Ena Fung [employer]BER BU[employer] Work Phone: [facility] Work Phone: Start: 01-29-2021 End: 01-29-2021 Emergency department patient visit Antony Borges MD Work Phone: [facility] ED Comment on above: Contusion of foot, u nspecified laterality, initial encounter (Primary Dx); Sprain of right ankle, unspecified ligament, initial encounter Start: 01-09-2021 End: 01-09-2021 Subsequent hospital visit by physician Ena Fung APRN - TIMBER BU[employer]ER Work Phone: [facility] Laboratory Comment on above: Hypokalemia; Rectal bleeding Start: 01-08-2021 End: 01-08-2021 FQ visit, estab pt Ena Fung CNP Work Phone: [facility] Work Phone: Start: 01-01-2021 End: 01-03-2021 Evaluation and management of inpatient Olaf Pineda MD [facility] Phone[facility] Comment on above: Rectal bleeding (Rowena aman Dx); Hypokalemia; Dehydration Start: 11-22-2020 End: 11-22-2020 Emergency department patient visit Santhosh Schwab MD Work Phone: [facility] ED Comment on above: Streptococcal sore t hroat (Primary Dx); Other elevated white blood cell count; Acute streptococcal pharyngitis Start: 09-19-2020 End: 09-23-2020 Subsequent hospital visit by physician Massiel Wolf19 Pat Screening Schedule [facility] PRE ADMIT Comment on above: Preoperative testing Start: 09-19-2020 End: 09-19-2020 Subsequent hospital visit by physician Ena Fung [facility] Laboratory Comment on above: Right sided abdomina l pain Start: 09-04-2020 End: 09-04-2020 Established patient Oliva Dia Work Phone: [facility] Work Phone: Start: 09-04-2020 End: 09-04-2020 Established patient Ena Fung Work Phone: [facility] Work Phone: Start: 08-27-2020 End: 08-29-2020 Evaluation and management of inpatient Mariana Adames Work Phone: [facility] MED SURG Comment on above: Abdominal pain, righ t lower quadrant (Primary Dx); Non-intractable vomiting with nausea, unspecified vomiting type Start: 07-05-2020 End: 07-05-2020 Subsequent hospital visit by physician [facility] Cardiology Stress Room [facility] Stress Lab Comment on above: Arrived Start: 07-04-2020 End: 07-04-2020 Subsequent hospital visit by physician [facility] Cardiology Stress Room [facility] Stress Lab Comment on above: Canceled (Provider) Atypical chest pain; Palpitations; ASHD (arteriosclerotic heart disease); S/P PTCA (percutaneous transluminal coronary angioplasty); Essential hypertension; Family history of premature CAD; Tobacco abuse counseling; Mixed hyperlipidemia; MATT (obstructive sleep apnea); Obesity (BMI 30.0-34.9) Start: 06-17-2020 End: 06-17-2020 Emergency department patient visit [facility] ED Comment on above: Chest pain, unspecif ied type (Primary Dx) Start: 06-04-2020 End: 06-04-2020 Telemedicine consultation with patient Tao Reece Work Phone: [facility] Work Phone: Start: 05-02-2020 End: 05-02-2020 Patient encounter procedure Oliva Dia Work Phone: [facility] Work Phone: Start: 05-02-2020 End: 05-02-2020 Telemedicine consultation with patient Ena Fung Work Phone: [facility] Work Phone: Start: 04-28-2020 End: 04-28-2020 Emergency department patient visit Enajosefa Fung [facility] ED Comment on above: Laceration of right little finger without foreign body without damage to nail, initial encounter (Primary Dx) Start: 02-22-2020 End: 02-22-2020 Subsequent hospital visit by physician Ena Fung [facility] Laboratory Comment on above: Vulvar cyst Start: 02-19-2020 End: 02-19-2020 Subsequent hospital visit by physician Hailey Ronquillo 1 [facility] Sleep Center Comment on above: Arrived Start: 02-14-2020 End: 02-14-2020 Subsequent hospital visit by physician [facility] Lab Drawing Room [facility] Laboratory Comment on above: Hot flashes Pre-op testing Start: 01-24-2020 End: 01-24-2020 Subsequent hospital visit by physician Ena Fung [facility] Laboratory Comment on above: Women's annual routi ne gynecological examination Start: 01-15-2020 End: 01-15-2020 Telemedicine consultation with patient Ena Fung Work Phone: [facility] Work Phone: Start: 01-11-2020 End: 01-11-2020 Subsequent hospital visit by physician Hailey Ronquillo 1 [facility] Sleep Center Start: 12-29-2019 End: 12-30-2019 Subsequent hospital visit by physician Michael Arroyo Work Phone: [facility] CAR 2 Comment on above: S/P PTCA (percutaneo us transluminal coronary angioplasty) Start: 12-29-2019 End: 12-29-2019 Subsequent hospital visit by physician Rl Blanc Work Phone: [facility] 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 Start: 12-28-2019 End: 12-29-2019 Evaluation and management of inpatient Rl Blanc Work Phone: [facility] 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 Start: 11-23-2019 End: 11-23-2019 Telemedicine consultation with patient Ena Fung Work Phone: [facility] Work Phone: Start: 10-20-2019 End: 10-20-2019 General Oliva Dia Work Phone: [facility] Work Phone: Start: 10-20-2019 End: 10-20-2019 Telemedicine consultation with patient Ena Fung Work Phone: [facility] Work Phone: Start: 10-09-2019 End: 10-10-2019 Evaluation and management of inpatient Terrence Lyle Work Phone: [facility] Comment on above: Stroke-like symptoms (Primary Dx) Start: 08-29-2019 End: 08-29-2019 Emergency department patient visit [facility] ED Comment on above: Benign paroxysmal po sitional vertigo of left ear (Primary Dx) Start: 08-21-2019 End: 08-21-2019 Emergency department patient visit Janae Landon MD Work Phone: [facility] ED Comment on above: Chest pain, unspecif ied type (Primary Dx); Dizziness Start: 06-08-2019 End: 06-08-2019 Emergency department patient visit Mariana Samir Adames Work Phone: [facility] ED Comment on above: Nausea vomiting and diarrhea (Primary Dx) Start: 04-19-2019 End: 04-21-2019 Evaluation and management of inpatient Janae Mccabe Work Phone: [facility] Comment on above: Stroke-like symptoms (Primary Dx) Start: 04-19-2019 End: 04-19-2019 Emergency department patient visit [facility] ED Comment on above: Acute nonintractable headache, unspecified headache type (Primary Dx); Perioral numbness Start: 06-23-2018 Office outpatient vi sit 15 minutes Ena Kenton Other [facility] Start: 04-26-2018 Office outpatient vi sit 15 minutes Ena Fung Other [facility] Start: 04-26-2018 Medical Ena Fung Other [facility] Start: 01-20-2018 End: 01-20-2018 Office outpatient visit 15 minutes Ena Fung Other [facility] Start: 10-15-2017 End: 10-15-2017 Medical Louis Bustos Other [facility] Start: 10-05-2017 Mammogram, both breasts [facility] Start: 10-05-2017 End: 10-05-2017 Office outpatient visit 15 minutes Ena Fung Other [facility] Start: 10-05-2017 Polysom 6/>yrs sleep 4/> addl binh [facility] Start: 10-05-2017 Polysom 6/>yrs sleep w/cpap 4/> addl binh [facility] Start: 03-23-2017 Laboratory examinati on, unspecified [facility] Start: 03-23-2017 Routine general medi gabriella examination at a health care facility [facility] Start: 03-23-2017 End: 03-23-2017 Initial preventive medicine new patient 40-64yrs Ena Fung Other [facility] Procedures Date Procedure Procedure Detail Performing Clinician Start: 03-12-2024 Assay of troponin quantitative M Kofi Richi BONUS CLERK - [employer] BU[employer] Work Phone: Start: 03-12-2024 Radiologic exam chest [...] blood pressure <130 mm hg Ena Kenton TIMBER BUYER Work Phone: Start: 08-20-2023 Current tobacco non-user cad cap copd pv dm Vicky Call TIMBER BU[employer]ER Work Phone: Start: 08-20-2023 Most recent diastolic blood pressure < 80 mm hg Vicky Call [employer]BER BU[employer]ER Work Phone: Start: 08-20-2023 Most recent systolic blood press 130-139mm hg Vicky Call [employer] BU[employer]ER Work Phone: Start: 08-12-2023 Ct abdomen & [...] cad cap copd pv dm Ena Fung TIMBER BU[employer]ER Work Phone: Start: 08-04-2023 Most recent diastolic blood pressure 80-89 mm hg Ena Fung TIMBER BU[employer]ER Work Phone: Start: 08-04-2023 Most recent systolic blood press 130-139mm hg Ena Fung TIMBER BU[employer]ER Work Phone: Start: 08-04-2023 Psychotherapy w/patient 30 [...] blood pressure 80-89 mm hg Ena Fung [employer]BER BU[employer] Work Phone: Start: 04-13-2022 Most recent systolic blood pressure <130 mm hg Ena Fung TIMBER BU[employer]ER Work Phone: Start: 04-13-2022 Psychotherapy w/patient 30 minutes [facility]otsna Dorsey [facility] Work Phone: Start: 02-03-2022 Us abdominal real time w/image limited Ena Fung BONUS CLERK - [employer] BU[employer] Work Phone: Start: 01-30-2022 Blood occult fecal hgb deter ia qual feces 1-3 Ena Fung TIMBER BU[employer]ER Work Phone: Start: 01-30-2022 Hernia repair Ena Fung TIMBER BU[employer]ER Work Phone: Start: 01-30-2022 Hysterectomy Ena Fung TIM[employer] BU[employer]ER Work Phone: Start: 01-30-2022 Most recent diastolic blood pressure < 80 mm hg Ena Fung [employer] BU[employer] Work Phone: Start: 01-30-2022 Most recent systolic blood pressure <130 mm hg Ena Fung TIMBER BU[employer]ER Work Phone: Start: 01-30-2022 Psychotherapy w/patient 30 minutes Jyotsna Dorsey [facility] Work Phone: Start: 12-19-2021 COVID-19, RAPID Santhosh Schwab MD Work Phone: Start: 12-19-2021 Iaadiadoo streptococcus group a Santhosh Schwab MD Work Phone: Start: 11-26-2021 Most recent diastolic blood pressure < 80 mm hg Ena Fung TIMBER BU[employer] Work Phone: Start: 11-26-2021 Most recent systolic blood pressure <130 mm hg Ena Fung TIMBER BU[employer]ER Work Phone: Start: 11-21-2021 End: 11-21-2021 [facility]adex spine [facility] Work Phone: Start: 11-06-2021 Cardiac catheterization Ronan Rodriguez MD Work Phone: Start: 10-30-2021 Cardiac catheterization Ronan Rodriguez MD Work Phone: Start: 10-27-2021 Most recent diastolic blood pressure < 80 mm hg Ena Fung [employer] BU[employer] Work Phone: Start: 10-27-2021 Most recent systolic blood pressure <130 mm hg Ena Fung TIMBER BU[employer]ER Work Phone: Start: 10-23-2021 BASIC METABOLIC PANEL [...] cleared fda spec home use Ena Fung TIMBER BUYER Work Phone: Start: 10-13-2021 Hysterectomy Ena Fung [employer] BU[employer] Work Phone: Start: 10-13-2021 Most recent diastolic blood pressure < 80 mm hg Ena Fung TIM[employer] BU[employer] Work Phone: Start: 10-13-2021 Most recent systolic blood pressure <130 mm hg Ena Fung TIMBER BU[employer]ER Work Phone: Start: 10-13-2021 Psychotherapy w/patient 30 minutes Jyotsna Plummermons [facility] Work Phone: Start: 10-07-2021 STRESS TEST, [...] Work Phone: Start: 08-29-2021 Hysterectomy Ena Fung [employer] BU[employer] Work Phone: Start: 08-20-2021 H/O: surgery S/P [...] Phone: Start: 05-22-2021 Urinalysis microscopic only Ruizrohit ajmes MD Work Phone: Start: 05-22-2021 Urnls dip stick/tablet rgnt auto w/o microscopy Ruizrohit Romero MD Work Phone: Start: 02-05-2021 Most recent diastolic blood pressure 80-89 mm hg Ena Fung [employer] Work Phone: Start: 02-05-2021 Most recent systolic blood pressure <130 mm hg Ena Fung [employer] BU[employer] Work Phone: Start: 01-29-2021 End: 01-29-2021 Radex ankle complete minimum 3 views Antony Borges MD Work Phone: Start: 01-09-2021 Basic metabolic panel calcium total Erna Osman APRN - TIMBER BU[employer]ER Work Phone: Start: 01-08-2021 Most recent diastol blood pres >/equal 90 mm hg Ena Fung TIM[employer] BU[employer] Work Phone: Start: 01-08-2021 Most recent systolic blood press 130-139mm hg Ena Fung [employer] BU[employer] Work Phone: Start: 01-03-2021 Blood occult peroxidase actv qual other sources Alvino Zavala MD Work Phone: Start: 01-03-2021 Esophagogastroduodenoscopy Alvino doherty MD Work Phone: Start: 01-03-2021 Assay of magnesium Erna Osman BONUS CLERK - [employer] BU[employer] Work Phone: Start: 01-03-2021 BASIC METABOLIC PANEL [...] Ena Fung Start: 09-04-2020 Cholecystectomy Ena Fung [employer] BU[employer] Work Phone: Start: 09-04-2020 Diast bp >/= 90 mm hg Ena Fugn Work Phone: Start: 09-04-2020 Hemoglobin glycosylated a1c Ena Fung Work Phone: Start: 09-04-2020 Hepatitis c antibody Ena Fung Work Phone: Start: 09-04-2020 Hysterectomy Ena Fung [employer] Work Phone: Start: 09-04-2020 Iaad ia hiv-1 [...] TO MG FOR LOW K Erna A Durham Work Phone: Start: 08-29-2020 Blood count complete auto&auto difrntl wbc Erna Osman Work Phone: Start: 08-28-2020 Ct abdomen & pelvis w/contrast material Dipakkumar P Gomez Work Phone: Start: 08-28-2020 Assay of magnesium Erna Brwon [employer] Work Phone: Start: 08-28-2020 BASIC METABOLIC PANEL [...] Work Phone: Start: 02-14-2020 Assay of estradiol Gefof Chu Work Phone: Start: 02-14-2020 Assay of thyroid stimulating hormone tsh Geoff Chu Work Phone: Start: 02-14-2020 Gonadotropin follicle stimulating hormone Geoff Chu Work Phone: Start: 01-15-2020 no recent change in medical history Ena Kenton [employer] Work Phone: Start: 12-29-2019 Coagulation time activated Nat Lloyd Juanito Mora Work Phone: Start: 12-29-2019 DIAGNOSTIC CARDIAC 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 PROCEDURE Amkylah Arroyo Work Phone: Start: 12-29-2019 COVID-19 Michael Arroyo Work Phone: Start: 12-29-2019 DIAGNOSTIC CARDIAC 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 PROCEDURE Ronan Michael Work Phone: Start: 12-29-2019 BASIC METABOLIC PANEL W/ REFLEX TO MG FOR LOW K Erna Brown Jacqui Work Phone: Start: 12-29-2019 Lipid panel Erna Brown [employer] Work Phone: Start: 12-29-2019 Ecg routine ecg [...] Ecg routine ecg w/least 12 lds w/i&r [employer] Work Phone: Start: 04-19-2019 Assay of troponin quantitative [employer] Work Phone: Start: 04-19-2019 Ct angiography neck w/contrast/noncontrast [employer] Work Phone: Start: 04-19-2019 Ecg routine ecg w/least 12 lds w/i&r [employer] Work Phone: Start: 04-19-2019 Assay of magnesium [employer] Work Phone: Start: 04-19-2019 Assay of troponin quantitative [employer] Work Phone: Start: 04-19-2019 Basic metabolic panel calcium total [employer] Work Phone: Start: 04-19-2019 Blood count complete automated [employer] Work Phone: Start: 04-19-2019 Natriuretic peptide Mary [...] 6/>yrs sleep 4/> addl binh attnd Ena Fnug Start: 10-05-2017 Polysom 6/>yrs sleep w/cpap 4/> [...] 09-26-2030 Screening for malignant neoplasm of colon [facility] [employer] Start: 04-28-2030 DTaP/Tdap/Td vaccine (3 - Td or Tdap) DTaP/Tdap/Td vaccine (3 - Td or Tdap) [facility] Start: 04-28-2030 DTaP/Tdap/Td vaccine (3 - Td) DTaP/Tdap/Td vaccine (3 - Td) [place] Start: 04-29-2028 Lipid panel Lipids [facility] Start: 01-17-2026 Diabetes screen Diabetes screen [facility] Start: 11-29-2025 Shingles Vaccine (1 of 2) Shingles Vaccine (1 of 2) Mikaela sanchez Work Phone: Start: 01-09-2025 Depression Monitoring Depression Monitoring [facility] Start: 06-09-2024 Diabetes screen Diabetes screen [facility] Start: 05-10-2024 DTaP/Tdap/Td vaccine (2 - Td) DTaP/Tdap/Td vaccine (2 - Td) [place] Start: 04-29-2024 Lipid panel Lipids [facility] Start: 04-25-2024 End: 04-25-2024 Nursing evaluation of patient and report 04/25/2024 8:30 AM EDT Nurse Only [facility] [address] [id number] 3 month home check [facility] Comment on above: 3 month home check Start: 04-18-2024 End: 04-18-2024 Patient encounter procedure 04/18/2024 9:20 AM EDT Office Visit [facility] [address] [id number] Nat Mora MD [address] [place] [address] [place] [address] 3 month [facility] Comment on above: 3 month Start: 03-16-2024 End: 03-16-2024 Patient encounter procedure 03/16/2024 9:00 AM EDT Office Visit [facility] [address] [place] [address] Geoff Chu MD [address] [place] [address] Dr [address] [place] [address] med check [facility] Comment on above: med check Start: 03-07-2024 FQHC visit, estab pt Medical Established Patient Health Part [facility] Work Phone: Start: 02-22-2024 FQHC visit, estab pt Medical Established Patient Health Part [facility] Work Phone: Start: 02-17-[address] [facility] Start: 02-08-2024 End: 02-08-2024 Patient education based on identified need [facility] Start: 02-03-2024 FQHC visit, estab pt Medical Established Patient Health Part [facility] Work Phone: Start: 01-27-2024 End: 01-27-2024 Patient education based on identified need [facility] Start: 01-25-2024 End: 01-25-2024 Nursing evaluation of patient and report 01/25/2024 8:30 AM EDT Nurse Only [facility] [address] [phone] 3 month home check [facility] Comment on above: 3 month home check Start: 01-21-2024 End: 01-21-2024 Patient encounter procedure 01/21/2024 9:00 AM EDT Office Visit [address] [phone] Nat Mora MD [address] [place] [address] [place] [address] 6 week [facility] Comment on above: 6 week Start: 01-19-[address] [facility] Start: 01-13-2024 End: 01-13-2024 Patient encounter procedure 01/13/2024 9:15 AM EDT Office Visit [facility] [address] [place] [id number] Luis Arredondo APRN - RIYA [address] [facility] [address] [place] [address] med check / WH pt [facility] Comment on above: med check / WH pt Start: 10-26-2023 End: 10-26-2023 Nursing evaluation of patient and report 10/26/2023 8:30 AM EDT Nurse Only [facility] [address] [facility] [place] [address] 3 month home check [facility] Comment on above: 3 month home check Start: 09-07-2023 FQHC visit, estab pt Medical Established Patient [facility] Work Phone: Start: 09-07-2023 End: 09-07-2023 Patient education based on identified need [facility] Start: 08-20-2023 [facility] Work Phone: Comment on above: Note: Please make a referral to: Start: 08-20-2023 End: 08-20-2023 Patient education based on identified need [facility] Start: 08-04-2023 Admission to same day surgery center General Surgery [facility] Work Phone: Comment on above: Note: Please make a referral to: Start: 08-04-2023 End: 08-04-2023 Patient education based on identified need [facility] Start: 08-02-2023 End: 08-02-2023 Patient encounter procedure [facility] Comment on above: 6 month/lvm mm Start: 04-27-2023 End: 04-27-2023 Nursing evaluation of patient and report 04/27/2023 Nurse Only Cardiology [facility] Start: 03-23-2023 End: 03-23-2023 Patient encounter procedure 03/23/2023 Office Visit Cardiology Nat Mora MD [address] [facility] [place] [id number] [facility] Start: 03-19-2023 COVID-19 Vaccine ( season) COVID-19 Vaccine ( season) [facility] Start: 03-09-2023 End: 03-09-2023 Patient encounter procedure 03/09/2023 Office Visit Gastroenterology Sirena Mehta, BONUS CLERK - TIMBER BUYER [address] [facility] [address] [place] [address] [facility] Start: 02-16-2023 Influenza vaccination [facility] Start: 02-09-2023 Dermatology [facility] Work Phone: Comment on above: Note: Please make a referral to: Start: 02-01-2023 End: 02-01-2023 Patient education based on identified need [facility] Start: 01-30-2023 Screening for malignant neoplasm of colon FIT/FOBT: Average risk [facility] Start: 01-28-2023 End: 01-28-2023 Patient encounter procedure 01/28/2023 Office Visit Gastroenterology Sirena Mehta, BONUS CLERK - TIMBER BUYER [address] [address] [facility] Start: 01-26-2023 End: 01-26-2023 Nursing evaluation of patient and report 01/26/2023 Nurse Only Cardiology [facility] Start: 01-25-2023 End: 01-25-2023 Patient encounter procedure 01/25/2023 Office Visit Cardiology Nat Mora MD [address] [place] [address] [place] [phone] [facility] Start: 01-23-2023 Screening for malignant neoplasm of cervix Cervical cancer screen [facility] [place], [place] Start: 12-21-2022 FQHC visit, estab pt Medical Established Patient Health [facility] Work Phone: Start: 12-21-2022 End: 12-21-2022 Patient education based on identified need [facility] Start: 12-07-2022 End: 12-07-2022 Patient encounter procedure [facility] [employer] [place] [facility] Start: 11-19-2022 End: 11-19-2022 Patient education based on identified need [facility] Start: 10-27-2022 End: 10-27-2022 Nursing evaluation of patient and report 10/27/2022 Nurse Only Cardiology [facility] Start: 10-23-2022 Creatinine measurement [facility] [employer] Start: 10-23-2022 Potassium [Moles/volume] in Serum or Plasma [employer] Start: 10-23-2022 [facility] Start: 10-20-2022 Hemoglobin A1c measurement A1C test (Diabetic or Prediabetic) [employer] Start: 10-20-2022 Lipid panel [employer] Start: 10-19-2022 Creatinine measurement Creatinine monitoring [employer] Start: 10-19-2022 Potassium monitoring Potassium monitoring [employer] Start: 10-08-2022 Diabetes screen Diabetes screen [facility]- [place], [place] Start: 10-07-2022 Lipid panel Lipid screen [employer] Start: 10-06-2022 Creatinine measurement Creatinine monitoring [employer] Start: 10-06-2022 Potassium monitoring Potassium monitoring [employer] Start: 08-21-2022 Creatinine measurement Creatinine monitoring [employer] Start: 08-21-2022 Potassium monitoring Potassium monitoring [employer] Start: 08-05-2022 Creatinine measurement Creatinine monitoring [employer] Start: 08-05-2022 [facility] Start: 07-28-2022 End: 07-28-2022 Nursing evaluation of patient and report 07/28/2022 Nurse Only Cardiology [facility] Start: 07-16-2022 FQHC visit, estab pt Medical Established Patient [facility] Work Phone: Start: 06-09-2022 Lipid panel Lipid screen [facility] [employer] Start: 06-06-2022 Creatinine measurement [facility] Start: 06-06-2022 Potassium monitoring Potassium monitoring [facility] Start: 05-28-2022 End: 05-28-2022 Patient encounter procedure 05/28/2022 Office Visit Cardiology Nat Mora MD [address] [place] [address] [facility] Start: 05-13-2022 EKG 12 lead (38280) [facility] Start: 05-11-2022 End: 05-11-2022 Patient encounter procedure 05/11/2022 Office Visit Neurology Gabo Cohen MD [address] [place] [address] [facility] Start: 05-07-2022 End: 05-07-2022 Patient encounter procedure 05/07/2022 Appointment Radiology [facility] MRI Start: 04-28-2022 End: 04-28-2022 Nursing evaluation of patient and report 04/28/2022 Nurse Only Cardiology [facility] Start: 04-27-2022 FQHC visit, estab pt Medical Established Patient [facility] Work Phone: Start: 04-20-2022 Diabetes screen Diabetes screen [place], [place] Start: 04-13-2022 End: 04-13-2022 Patient education based on identified need [facility] Start: 03-19-2022 Influenza vaccination [facility] Start: 03-16-2022 End: 03-16-2022 Patient encounter procedure 03/16/2022 Office Visit Neurology Gabo Cohen MD [address] [place] [address] [facility] Start: 03-01-2022 [facility] Start: 02-16-2022 Influenza vaccination Flu vaccine (#1) [facility] Start: 01-30-2022 End: 01-30-2022 Patient education based on identified need [facility] Start: 01-27-2022 FQHC visit, estab pt Medical Established Patient [facility] Work Phone: Start: 01-27-2022 End: 01-27-2022 Nursing evaluation of patient and report 01/27/2022 Nurse Only Cardiology [facility] Start: 01-12-2022 End: 01-12-2022 Patient encounter procedure 01/12/2022 Office Visit Neurology Gabo Cohen MD [address] [place] [id number] [facility] NEUR[facility] Start: 01-09-2022 Creatinine measurement Creatinine monitoring [facility] Work Phone: Start: 01-09-2022 Potassium monitoring Potassium monitoring [facility] Work Phone: Start: 01-03-2022 Creatinine measurement Creatinine monitoring [facility] Work Phone: Start: 01-03-2022 Potassium monitoring Potassium monitoring [facility] Work Phone: Start: 01-03-2022 Screening for malignant neoplasm of colon FIT/FOBT: Average risk [facility] Start: 12-23-2021 End: 12-23-2021 Patient encounter procedure 12/23/2021 Office Visit Cardiology Nat Mora MD [address] [place] [address] [facility] Start: 12-09-2021 End: 12-09-2021 Nursing evaluation of patient and report 12/09/2021 Nurse Only Cardiology [facility] Start: 11-26-2021 End: 11-26-2021 Patient education based on identified need [facility] Start: 11-25-2021 End: 11-25-2021 Patient encounter procedure 11/25/2021 Office Visit Cardiology Nat Mora MD [address] [place] [address] [facility] Start: 11-22-2021 Creatinine measurement Creatinine monitoring [facility] Work Phone: Start: 11-22-2021 Potassium monitoring Potassium monitoring [facility] Work Phone: Start: 11-14-2021 End: 11-14-2021 Patient encounter procedure 11/14/2021 Office Visit Neurology Rashid Almeida MD [address] [place] [address] [facility] Start: 10-27-2021 [facility] visit, estab pt [facility] Work Phone: Comment on above: Note: Please make a referral to: OSWALD mcmahon [facility] Start: 10-27-2021 End: 10-27-2021 Patient education based on identified need [facility] Start: 10-23-2021 End: 10-23-2021 Patient encounter procedure 10/23/2021 Office Visit Cardiology Nat Mora MD [address] [place] [place] [address] [facility] Start: 10-13-2021 End: 10-13-2021 Patient education based on identified need [facility] Start: 09-19-2021 Creatinine measurement Creatinine monitoring [facility] Work Phone: Start: 09-19-2021 Potassium monitoring Potassium monitoring [facility] Work Phone: Start: 09-16-2021 End: 09-16-2021 Admission to same day surgery center 09/16/2021 Surgery IP Unit Alvino Zavala MD [address] [facility] [address] [place] [address] EGD ESOPHAGOGASTRODUODENOSCOPY [facility] OR Comment on above: EGD ESOPHAGOGASTRODUODENOSCOPY Start: 09-16-2021 End: 09-16-2021 Esophagogastroduodenoscopy transoral diagnostic EGD ESOPHAGOGASTRODUODENOSCOPY ABD PAIN HX OF GASTRITIS 09/16/2021 9:30 AM [facility] Start: 09-16-2021 Subsequent hospital visit by physician 09/16/2021 Hospital Encounter IP Unit Alvino Zavala MD [address] [facility] [address] [place], [place] [id number] [facility] Start: 08-29-2021 Creatinine measurement Creatinine monitoring [facility] Work Phone: Start: 08-29-2021 Potassium monitoring Potassium monitoring [facility] Phone: Start: 08-27-2021 End: 08-27-2021 Patient encounter procedure 08/27/2021 Office Visit Obstetrics and Gynecology Geoff Chu MD [address] [place] [address] [facility]ST[facility]EC[facility] Start: 08-20-2021 End: 08-20-2021 Admission to same day surgery center 08/20/2021 Surgery IP Unit Geoff Chu MD [address] [place], [place] [id number] OOPHORECTOMY LAPAROSCOPIC-POSSIBLE LAPAROTOMY [facility] Comment on above: OOPHORECTOMY LAPAROSCOPIC-POSSIBLE LAPAR OTOMY Start: 08-20-2021 End: 08-20-2021 Oophorectomy partial/total uni/bi OOPHORECTOMY LAPAROSCOPIC RLQ PAIN 08/20/2021 9:50 AM [facility] Start: 08-20-2021 Subsequent hospital visit by physician 08/20/2021 Hospital Encounter IP Unit Geoff Chu MD [address] [place] [address] [facility] Start: 08-11-2021 COVID-19 Vaccine (2 - Booster for Moderna series) COVID-19 Vaccine (2 - Booster for Moderna series) [facility] Start: 07-14-2021 COVID-19 Vaccine (2 - Moderna 3-dose series) COVID-19 Vaccine (2 - Moderna 3-dose series) [facility] Start: 07-14-2021 COVID-19 Vaccine (2 - Moderna series) COVID-19 Vaccine (2 - Moderna series) [facility] Start: 07-04-2021 Creatinine measurement Creatinine monitoring [facility] [place] Start: 07-04-2021 Lipid panel Lipid screen [facility] Start: 07-04-2021 Potassium monitoring Potassium monitoring [facility] [place], [place] Start: 06-25-2021 [facility] Medical Established Patient [facility] Work Phone: Start: 06-09-2021 End: 06-09-2021 Patient encounter procedure 06/09/2021 Office Visit Cardiology Nat Mora MD [address] [place] [address] [place] [address] [facility] Start: 06-07-2021 Diabetes screen Diabetes screen [facility], [place] Start: 05-15-2021 SARS-CoV-2, FAUSTINA [facility] Start: 05-08-[address] up Testing [facility] Work Phone: Start: 04-15-2021 End: 04-15-2021 Patient encounter procedure 04/15/2021 Office Visit Cardiology Nat Mora MD [address] [place] [address] [place] [address] [facility] Start: 03-27-2021 SARS-CoV-2, FAUSTINA [facility] Start: 03-20-2021 End: 03-20-2021 Patient education based on identified need [facility] Start: 03-19-2021 Influenza vaccination [facility] Start: 03-07-2021 [facility] Start: 02-05-2021 End: 02-05-2021 Patient education based on identified need [facility] Start: 01-10-2021 End: 01-03-2022 Basic metabolic 2000 panel - Serum or Plasma Basic Metabolic Panel Lab Routine Hypokalemia Expected: 01/10/2021, Expires: 01/03/2022 [employer] Phone: Comment on above: Expected: 01/10/2021, Expires: 2 Start: 01-10-2021 End: 01-03-2022 CBC W Auto Differential panel - Blood CBC With Auto Differential Lab Routine Rectal bleeding Expected: 01/10/2021, Expires: 01/03/2022 [employer] Phone: Comment on above: Expected: 01/10/2021, Expires: 2 Start: 01-10-2021 Subsequent hospital visit by physician 01/10/2021 Hospital Encounter Echocardiography [facility] Echocardiography Start: 01-10-2021 End: 01-10-2021 Patient encounter procedure 01/10/2021 Appointment Stress Lab [facility] Stress Lab Start: 01-09-2021 End: 01-09-2021 Office Visit 01/09/2021 Office Visit Cardiology Nat Mora MD [address] [place] [address] [place] [address] [facility] Start: 01-08-2021 End: 01-08-2021 Patient education based on identified need [facility] Start: 12-28-2020 Creatinine measurement Creatinine monitoring [facility] [place] Start: 12-28-2020 Lipid panel Lipid screen [facility] [place], [place] Start: 12-28-2020 Potassium monitoring Potassium monitoring [facility] [place], [place] Start: 12-27-2020 Creatinine measurement Creatinine monitoring [facility] [place] Start: 12-27-2020 Potassium monitoring Potassium monitoring [employer] [place] Start: 11-29-2020 Screening for malignant neoplasm of colon [employer] Start: 10-08-2020 Lipid panel Lipid screen [employer] [place], [place] Start: 10-08-2020 Lipid screen Lipid screen [facility] [place], [place] Start: 09-26-2020 End: 09-26-2020 Hospital Encounter [facility] Comment on above: COLONOSCOPY DIAGNOSTIC Start: 09-05-2020 [facility] Work Phone: Start: 09-04-2020 End: 09-04-2020 Patient education based on identified need [facility] provided active listening, support and helped patient process through current symptoms and stressors related to family conflict. [facility] discussed resources for housing and supports with patient. ~[facility] discussed potential benefit of counseling and supports. Patient is willing to reconsider meeting with a provider at another agency than she has in the past as she does not want all of the same services [facility] Start: 09-04-2020 End: 09-04-2020 Patient education based on identified need [facility] Start: 08-29-2020 Creatinine monitoring Creatinine monitoring [place], [place] Start: 08-29-2020 Potassium monitoring Potassium monitoring [place], [place] Start: 08-27-2020 End: 08-27-2020 Office Visit 08/27/2020 Office Visit Cardiology Nat Mora MD [address] [place] [address] [place] [address] [facility] Start: 08-21-2020 Creatinine monitoring Creatinine monitoring [facility] Work Phone: Start: 08-21-2020 Potassium monitoring Potassium monitoring [facility] Work Phone: Start: 07-05-2020 End: 07-05-2020 Appointment 07/05/2020 Appointment Stress Lab [facility] Stress Lab Start: 06-12-2020 Medical Established Patient [facility] Work Phone: Start: 06-11-2020 SARS-CoV-2, FAUSTINA [facility] Work Phone: Start: 06-04-[address] up Testing [facility] Work Phone: Start: 05-09-2020 SARS-CoV-2, FAUSTINA [facility] Work Phone: Start: 05-03-[address] up Testing [facility] Work Phone: Start: 05-02-2020 End: 05-02-2020 Patient education based on identified need [facility] Start: 04-20-2020 Creatinine monitoring Creatinine monitoring [facility] , [place] Start: 04-20-2020 Potassium monitoring Potassium monitoring [facility], [place] Start: 03-19-2020 Influenza vaccination [facility] [place] Start: 02-22-2020 End: 02-22-2020 Ancillary Procedure [facility] Start: 02-20-2020 End: 02-20-2020 Office Visit 02/20/2020 Office Visit Cardiology Nat Mora MD [address] [place] [address] [facility] Start: 02-19-2020 End: 02-19-2020 Appointment 02/19/2020 Appointment Sleep Center [facility] Sleep Center Start: 02-07-2020 Creatinine monitoring Creatinine monitoring [facility] , [place] Start: 02-07-2020 Lipid screen Lipid screen [facility] [place] Start: 02-07-2020 Potassium monitoring Potassium monitoring [facility], [place] Start: 01-24-2020 End: 01-24-2020 Office Visit 01/24/2020 Office Visit Obstetrics and Gynecology Geoff Chu MD [address] [place] [address] [facility] Start: 01-22-2020 Lipid 1996 panel [facility] Work Phone: Start: 01-11-2020 End: 01-11-2020 Appointment 01/11/2020 Appointment Sleep Center [facility] Sleep Center Start: 12-29-2019 Hospital Encounter 12/29/2019 Hospital Encounter IP Unit [employer] Start: 12-28-2019 End: 12-28-2019 Office Visit 12/28/2019 Office Visit Cardiology Nat Mora MD [address] [place] [phone] [facility] CARDIOLOG[facility] Start: 12-21-2019 Medical Established Patient Tracey [facility] Work Phone: Start: 10-20-2019 Sleep Disorders Health [facility] Work Phone: Comment on above: Note: Please [...] past and nothing has been sucessful. ~ [facility] Start: 10-06-2019 Screening for malignant neoplasm of breast Breast cancer screen KURTIS MEJIA [facility] Start: 06-20-2019 End: 06-20-2019 Office Visit 06/20/2019 Office Visit Cardiology Nat Mora MD [address] [place] [address] [place] [address] [facility] [place] [facility] Start: 06-05-2019 End: 06-05-2019 Office Visit 06/05/2019 Office Visit Cardiology Nat Mora MD [address] [place] [address] [place] [address] [facility] [place] [facility] Start: 05-22-2019 End: 05-22-2019 Office Visit 05/22/2019 Office Visit Neurology Mary Jane Oconnor MD [address] [place], [place] [id number] [facility] Start: 03-19-2019 Influenza vaccination Flu vaccine (#1) [facility] [place], [place] Start: 02-04-2018 Hepatic function panel Liver function panel [facility] Start: 02-04-2018 Lipid panel Lipid panel [facility] Start: 01-25-2018 Hepatic function panel Liver function panel [facility] Start: 01-25-2018 Lipid panel Lipid panel [facility] Start: 01-20-2018 Basic metabolic panel calcium total BMP (basic metabolic panel) [facility] Start: 01-20-2018 Lipid panel Lipid Panel (Chol, HDL, LDL, Trig., VLDL) [facility] Start: 11-28-2017 Cervical cancer screen Cervical cancer screen [place], [place] Start: 11-28-2017 Screening for malignant neoplasm of cervix Cervical cancer screen [place], [place] Start: 10-05-2017 Hepatic function panel Liver function panel [facility] Start: 10-05-2017 Lipid panel Lipid Panel (Chol, HDL, LDL, Trig., VLDL) [facility] Start: 03-23-2017 25 hydroxy includes fractions if performed VITAMIN D 25 HYDROXY [facility] Start: 03-23-2017 Assay of free thyroxine TSH + free t4 [facility] Start: 03-23-2017 Assay of thyroid stimulating hormone tsh TSH + free t4 [facility] Start: 03-23-2017 Lipid panel Lipid panel [facility] Start: 11-29-1994 Hepatitis B vaccine (1 of 3 - 19+ 3-dose series) Hepatitis B vaccine (1 of 3 - 19+ 3-dose series) KURTIS MEJIA [facility] Start: 11-29-1993 Hepatitis C screening Hepatitis C screen [facility] Start: 1991 COVID-19 Vaccine (1) COVID-19 Vaccine (1) [facility] [employer] Phone: Start: 11-29-1990 HIV screen HIV screen [place], [place] Start: 11-29-1990 HIV screening HIV screen [facility] Start: 1987 COVID-19 Vaccine (1) COVID-19 Vaccine (1) [facility] [employer] Work Phone: Start: 1987 Depression Monitoring Depression Monitoring [facility] Start: 11-29-1981 Pneumococcal 0-64 years Vaccine (1 - PCV) Pneumococcal 0-64 years Vaccine (1 - PCV) [facility] Start: 11-29-1981 Pneumococcal 0-64 years Vaccine (1 of 1 - PPSV23) Pneumococcal 0-64 years Vaccine (1 of 1 - PPSV23) [place], [place] Start: 11-29-1981 Pneumococcal 0-64 years Vaccine (1 of 2 - PCV) Pneumococcal 0-64 years Vaccine (1 of 2 - PCV) [facility] Start: 11-29-1981 Pneumococcal 0-64 years Vaccine (1 of 2 - PPSV23) Pneumococcal 0-64 years Vaccine (1 of 2 - PPSV23) [facility] Start: 11-29-1980 COVID-19 Vaccine (1) COVID-19 Vaccine (1) [facility] Start: 1975 Hepatitis B vaccine (1 of 3 - 3-dose series) Hepatitis B vaccine (1 of 3 - 3-dose series) [facility] Start: 1975 Hepatitis C screening Hepatitis C screen [facility] End: 10-10-2019 Antithrombin III Activity Antithrombin III Activity Lab Routine One Time for 1 Occurrences starting 10/10/2019 until 10/10/2019 [place], [place] Comment on above: One Time for 1 Occurrences starting 09/17 until 10/10/2019 Antithrombin III Activity Antith rombin III Activity Lab Routine 10/10/2019 10:18 AM EDT [place], [place] End: 10-19-2021 aPTT in Blood by Coagulation assay APTT Lab STAT One Time for 1 Occurrences starting 10/19/2021 until 10/19/2021 [facility] [employer] Phone: Comment on above: One Time for 1 Occurrences starting 09/2021 until 10/19/2021 Basic metabolic 2000 panel [place], [place] Comment on above: Daily until discontinued starting 2019 End: 08-30-2020 Basic Metabolic Panel w/ Reflex to MG Basic Metabolic Panel w/ Reflex to MG Lab Routine Daily for 3 Occurrences starting 08/28/2020 until 08/30/2020, 2 completed [facility] [employer] Phone: Comment on above: Daily for 3 Occurrences starting 021 until 08/30/2020, 2 completed Basic Metabolic Pane l w/ Reflex to MG Basic Metabolic Panel w/ Reflex to MG Lab Routine Daily until discontinued starting 01/03/2021, 1 completed [employer] Phone: Comment on above: Daily until discontinued starting 2020, 1 completed End: 10-19-2021 Basic Metabolic Panel w/ Reflex to MG Basic Metabolic Panel w/ Reflex to MG Lab STAT One Time for 1 Occurrences starting 10/19/2021 until 10/19/2021 [employer] Phone: Comment on above: One Time for 1 Occurrences starting 09/2021 until 10/19/2021 End: 10-30-2021 Catheterization and angiography procedure details panel [employer] Phone: Comment on above: One Time for 1 Occurrences starting 10/17 until 10/30/2021 End: 08-20-2022 Catheterization and angiography procedure details panel [facility] Procedure Cardiac Cath Routine One Time for 1 Occurrences starting 08/20/2022 until 08/20/2022 [facility] [employer] Phone: Comment on above: One Time for 1 Occurrences starting 08/2022 until 08/20/2022 End: 08-30-2020 CBC auto differential CBC auto differential Lab Routine Daily for 3 Occurrences starting 08/28/2020 until 08/30/2020, 2 completed [employer] Phone: Comment on above: Daily for 3 Occurrences starting 021 until 08/30/2020, 2 completed End: 10-19-2021 CBC panel - Blood by Automated count CBC Lab STAT One Time for 1 Occurrences starting 10/19/2021 until 10/19/2021 [employer] Phone: Comment on above: One Time for 1 Occurrences starting 09/2021 until 10/19/2021 CBC W Auto Different ial panel - Blood CBC auto differential Lab Routine Daily until discontinued starting 01/03/2021, 1 completed [employer] Phone: Comment on above: Daily until discontinued starting 2020, 1 completed End: 10-20-2021 Continuous pulse oximetry Pulse oximetry, continuous Respiratory Care Routine Every 4hr for 24 Hours starting 10/20/2021 until 10/20/2021 [employer] Phone: Comment on above: Every 4hr for 24 Hours starting 10/21/19 until 10/20/2021 End: 10-21-2021 Continuous pulse oximetry Pulse oximetry, continuous Respiratory Care Routine Every 4hr for 24 Hours starting 10/20/2021 until 10/21/2021 [employer] Phone: Comment on above: Every 4hr for 24 Hours starting 10/21/19 until 10/21/2021 End: 02-14-2020 COVID-19 Ambulatory COVID-19 Ambulatory Lab Routine Pre-op testing 1 Occurrences starting 02/14/2020 until 02/14/2020 [place] Comment on above: 1 Occurrences starting 02/14/2020 until 02/14/2020 COVID-19 Ambulatory COVID-19 Amb ulatory Lab Routine Pre-op testing 02/14/2020 1:56 PM EDT [place] End: 06-17-2020 COVID-19, PCR COVID-19, PCR Lab Routine One Time for 1 Occurrences starting 06/17/2020 until 06/17/2020 [place] Comment on above: One Time for 1 Occurrences starting 05/21 until 06/17/2020 COVID-19, PCR COVID-19, PCR La b STAT 06/17/2020 11:00 AM EST [place] End: 10-19-2021 COVID-19, Rapid [facility] [employer] Phone: Comment on above: Once for 1 Occurrences starting 10/20/19 until 10/19/2021 CT Abdomen and Pelvi s W contrast IV CT ABDOMEN PELVIS W IV CONTRAST Additional Contrast? None Imaging STAT 08/12/2023 4:10 PM EST [facility] [employer] End: 09-19-2020 Culture, Urine Culture, Urine Microbiology Routine Right sided abdominal pain 1 Occurrences starting 09/19/2020 until 09/19/2020 [employer] Phone: Comment on above: 1 Occurrences starting 09/19/2020 until 09/19/2020 Culture, Urine Culture, Urine M icrobiology Routine Right sided abdominal pain 09/19/2020 10:12 AM [employer] Phone: Culture, Wound Culture, Wound M icrobiology Routine Vulvar cyst 02/22/2020 5:09 PM EDT [employer] End: 01-24-2020 Cytopathology procedure, preparation of smear, genital source P[facility] Lab Routine Women's annual routine gynecological examination 1 Occurrences starting 01/24/2020 until 01/24/2020 [employer] Comment on above: 1 Occurrences starting 01/24/2020 until 01/24/2020 End: 07-24-2021 Cytopathology procedure, preparation of smear, genital source PAP [facility] Lab Routine Women's annual routine gynecological examination 1 Occurrences starting 07/24/2021 until 07/24/2021 [employer] Phone: Comment on above: 1 Occurrences starting 07/24/2021 until 07/24/2021 EKG 12 Lead [employer] [place] Comment on above: As Needed until discontinued starting EKG 12 Lead EKG 12 Lead ECG STAT 06/06/2021 9:57 AM [employer] Phone: EKG 12 Lead EKG 12 Lead ECG Routine 07/08/2021 2:55 PM [employer] Phone: EKG 12 Lead EKG 12 Lead ECG STAT 10/19/2021 8:44 PM EDT [employer] Phone: EKG 12 Lead EKG 12 Lead ECG STAT 08/20/2022 12:16 PM EST [employer] Phone: EKG 12 Lead EKG 12 Lead ECG STAT 08/12/2023 3:35 PM EST [employer] EKG 12 Lead EKG 12 Lead ECG STAT 12/23/2023 1:50 PM EDT [employer] EKG 12 Lead EKG 12 Lead ECG STAT 03/12/2024 11:54 AM EDT [employer] Phone: End: 10-10-2019 Factor 5 Leiden Factor 5 Leiden Lab Routine One Time for 1 Occurrences starting 10/10/2019 until 10/10/2019 [employer] Comment on above: One Time for 1 Occurrences starting 09/17 until 10/10/2019 End: 10-19-2021 Glucose [Mass/volume] in Serum or Plasma POCT Glucose Point of Care Testing STAT One Time for 1 Occurrences starting 10/19/2021 until 10/19/2021 [employer] Phone: Comment on above: One Time for 1 Occurrences starting 09/2021 until 10/19/2021 H. PYLORI DETE[employer] Phone: Comment on above: Release Upon Ordering for 1 Occurrences starting 01/03/2021 Initiate O[facility] Ther [facility]y [facility] Comment on above: Daily until discontinued starting 2018 Daily until disconti nued starting 10/09/2019 Daily until disconti nued starting 12/28/2019 Daily until disconti nued starting 12/29/2019 Daily until disconti nued starting 12/30/2019 End: 06-19-2021 Intermittent pulse oximetry Pulse Oximetry Spot Check Respiratory Care Routine One Time for 1 Occurrences starting 06/19/2021 until 06/19/2021 [employer] Phone: Comment on above: One Time for 1 Occurrences starting 08/2020 until 06/19/2021 Intermittent pulse oximetry Puls e Oximetry Spot Check Respiratory Care Routine As Needed until discontinued starting 10/22/2021 [employer] Phone: Comment on above: As Needed until discontinued starting End: 10-30-2021 Intermittent pulse oximetry Pulse Oximetry Spot Check Respiratory Care Routine One Time for 1 Occurrences starting 10/30/2021 until 10/30/2021 [employer] Phone: Comment on above: One Time for 1 Occurrences starting 10/17 until 10/30/2021 End: 11-06-2021 Intermittent pulse oximetry Pulse Oximetry Spot Check Respiratory Care Routine One Time for 1 Occurrences starting 11/06/2021 until 11/06/2021 [employer] Phone: Comment on above: One Time for 1 Occurrences starting 10/18 until 11/06/2021 End: 08-20-2022 Intermittent pulse oximetry Pulse Oximetry Spot Check Respiratory Care Routine One Time for 1 Occurrences starting 08/20/2022 until 08/20/2022 [employer] Phone: Comment on above: One Time for 1 Occurrences starting 08/2022 until 08/20/2022 End: 10-22-2021 IR ANGIOGRAM CAROTID C EREBRAL BILATERAL IR ANGIOGRAM CAROTID C EREBRAL BILATERAL Imaging Routine Once for 1 Occurrences starting 10/22/2021 until 10/22/2021 [employer] Phone: Comment on above: Once for 1 Occurrences starting 10/23/19 until 10/22/2021 IR ANGIOGRAM CAROTID C EREBRAL BILATERAL IR ANGIOGRAM CAROTID C EREBRAL BILATERAL Imaging Routine 10/22/2021 5:26 PM EDT [employer] Phone: Lac Repair Lac Repair Proce dures Routine 04/28/2020 3:41 PM EDT [employer] [employer], [place] End: 12-29-2019 LDL Cholesterol, Direct LDL Cholesterol, Direct Lab Routine Once for 1 Occurrences starting 12/29/2019 until 12/29/2019 [employer] [employer], [place] Comment on above: Once for 1 Occurrences starting 12/29/19 20 until 12/29/2019 LDL Cholesterol, Direct LDL Chol esterol, Direct Lab Routine 12/29/2019 6:00 AM EDT [facility] [place] End: 10-07-2021 Lipid panel [employer] Phone: Comment on above: One Time for 1 Occurrences starting 09/17 until 10/07/2021 LUPUS ANTICOAGULANT LUPUS ANTICO AGULANT Lab Routine 10/10/2019 10:18 AM EDT [facility] [place], [place] Oxygen therapy [Mini mum Data Set] [employer] Phone: Comment on above: Daily until discontinued starting 2020 Daily until disconti nued starting 01/02/2021 Oxygen therapy [Mini [employer] Data Set] Initiate Oxygen Therapy Protocol Respiratory Care Routine Daily until discontinued starting 06/19/2021 [employer] Phone: Comment on above: Daily until discontinued starting 2020 Oxygen therapy [Mini mum Data Set] Initiate Oxygen Therapy Protocol Respiratory Care Routine Daily until discontinued starting 06/19/2021 [employer] Phone: Comment on above: Daily until discontinued starting 2020 Oxygen therapy [Mini mum Data Set] Initiate Oxygen Therapy Protocol Respiratory Care Routine As Needed until discontinued starting 10/06/2021 [employer] Phone: Comment on above: As Needed until discontinued starting Oxygen therapy [M[employer] Data Set] Initiate Oxygen Therapy Protocol Respiratory Care Routine As Needed until discontinued starting 10/19/2021 [employer] Phone: Comment on above: As Needed until discontinued starting Oxygen therapy [M[employer] Data Set] Initiate Oxygen Therapy Protocol Respiratory Care Routine As Needed until discontinued starting 10/20/2021 [employer] Phone: Comment on above: As Needed until discontinued starting Oxygen therapy [Mini mum Data Set] Initiate Oxygen Therapy Protocol Respiratory Care Routine As Needed until discontinued starting 10/22/2021 [employer] Phone: Comment on above: As Needed until discontinued starting Oxygen therapy [Mini [employer] Data Set] Initiate Oxygen Therapy Protocol Respiratory Care Routine As Needed until discontinued starting 10/30/2021 [employer] Phone: Comment on above: As Needed until discontinued starting Oxygen therapy [Mini mum Data Set] Initiate Oxygen Therapy Protocol Respiratory Care Routine As Needed until discontinued starting 11/06/2021 [employer] Phone: Comment on above: As Needed until discontinued starting Oxygen therapy [[facility] Data Set] Initiate Oxygen Therapy Protocol Respiratory Care Routine As Needed until discontinued starting 11/06/2021 [employer] Phone: Comment on above: As Needed until discontinued starting Oxygen therapy [[facility] Data Set] Initiate Oxygen Therapy Protocol Respiratory Care Routine As Needed until discontinued starting 08/20/2022 [employer] Phone: Comment on above: As Needed until discontinued starting POCT Glucose POCT Glucose Poi nt of Care Testing STAT As Needed until discontinued starting 04/20/2019 [place] Comment on above: As Needed until discontinued starting End: 10-10-2019 Protein C Functional Protein C Functional Lab Routine One Time for 1 Occurrences starting 10/10/2019 until 10/10/2019 [place] Comment on above: One Time for 1 Occurrences starting 09/17 until 10/10/2019 Protein C Functional Protein C F unctional Lab Routine 10/10/2019 10:18 AM [facility], [place] End: 10-10-2019 Protein S Functional Protein S Functional Lab Routine One Time for 1 Occurrences starting 10/10/2019 until 10/10/2019 [place] Comment on above: One Time for 1 Occurrences starting 09/17 until 10/10/2019 Protein S Functional Protein S F unctional Lab Routine 10/10/2019 10:18 AM [place], [place] End: 10-10-2019 Prothrombin Gene Mutation Prothrombin Gene Mutation Lab Routine One Time for 1 Occurrences starting 10/10/2019 until 10/10/2019 [place] Comment on above: One Time for 1 Occurrences starting 09/17 until 10/10/2019 Protime-INR Protime-INR Lab STAT As Needed until discontinued starting 12/29/2019 [place] Comment on above: As Needed until discontinued starting Protime-INR Protime-INR Lab STAT As Needed until discontinued starting 06/19/2021 [employer] Phone: Comment on above: As Needed until discontinued starting End: 10-19-2021 Protime-INR Protime-INR Lab STAT One Time for 1 Occurrences starting 10/19/2021 until 10/19/2021 [employer] Phone: Comment on above: One Time for 1 Occurrences starting 09/2021 until 10/19/2021 Protime-INR Protime-INR Lab STAT As Needed until discontinued starting 10/30/2021 [employer] Phone: Comment on above: As Needed until discontinued starting End: 12-28-2019 Pulse Oximetry Spot Check Pulse Oximetry Spot Check Respiratory Care Routine One Time for 1 Occurrences starting 12/28/2019 until 12/28/2019 [facility] [place] Comment on above: One Time for 1 Occurrences starting 12/17 until 12/28/2019 End: 12-29-2019 Pulse Oximetry Spot Check Pulse Oximetry Spot Check Respiratory Care Routine One Time for 1 Occurrences starting 12/29/2019 until 12/29/2019 [facility] [place] Comment on above: One Time for 1 Occurrences starting 12/17 until 12/29/2019 End: 02-19-2020 Sleep Study with PAP Titration Sleep Study with PAP Titration Sleep Center Routine One Time for 1 Occurrences starting 02/19/2020 until 02/19/2020 [facility] [place] Comment on above: One Time for 1 Occurrences starting 09/2019 until 02/19/2020 End: 10-19-2021 Speech and language therapy regime Speech Language Pathology (GYNECOLOGICAL ASSISTANT) eval and treat GYNECOLOGICAL ASSISTANT Routine One Time for 1 Occurrences starting 10/19/2021 until 10/19/2021 [employer] Phone: Comment on above: One Time for 1 Occurrences starting 09/2021 until 10/19/2021 End: 10-20-2021 Speech and language therapy regime Speech Language Pathology (GYNECOLOGICAL ASSISTANT) eval and treat GYNECOLOGICAL ASSISTANT Routine One Time for 1 Occurrences starting 10/20/2021 until 10/20/2021 [employer] Phone: Comment on above: One Time for 1 Occurrences starting 10/2021 until 10/20/2021 Spirometry panel Incentive carey metry Respiratory Care Routine Daily until discontinued starting 10/19/2021 [employer] Phone: Comment on above: Daily until discontinued starting 2021 Spirometry panel Incentive carey metry Respiratory Care Routine Daily until discontinued starting 10/20/2021 [employer] Phone: Comment on above: Daily until discontinued starting 2021 Surgical Pathology Surgical Path ology Lab Routine Release Upon Ordering for 1 Occurrences starting 01/03/2021 [employer] Phone: Comment on above: Release Upon Ordering for 1 Occurrences starting 01/03/2021 End: 07-24-2021 Surgical Pathology Surgical Pathology Lab Routine Vulval lesion 1 Occurrences starting 07/24/2021 until 07/24/2021 [employer] Phone: Comment on above: 1 Occurrences starting 07/24/2021 until 07/24/2021 End: 10-19-2021 Troponin I.cardiac [Mass/volume] in Serum or Plasma Troponin Lab STAT One Time for 1 Occurrences starting 10/19/2021 until 10/19/2021 [employer] Phone: Comment on above: One Time for 1 Occurrences starting 09/2021 until 10/19/2021 Immunizations Immunization Date Immunization Notes Care Provider Connie palmer 06-16-2021 COVID-19, Moderna, Primary or Immunocompromised, PF, 100mcg/0.5mL Ena [employer] [facility] [facility] Work Phone[facility]2020 diphtheria, tetanus toxoids and acellular pertussis vaccine, unspecified formulation [facility] [place] , [place] 04-28-2020 tetanus toxoid, redu isaac diphtheria toxoid, and acellular pertussis vaccine, adsorbed [facility] 05-10-2014 tetanus toxoid, redu isaac diphtheria toxoid, and acellular pertussis vaccine, adsorbed [facility] Payers Date Payer Category Payer Unknown 2019 Unknown [id number] [id number] 2019 Unknown [employer] xxxxxxxxxxx 2019-Present [phone] [address] [place] [address] xxxxxxxxxxx [id number]. [id number] 2019 Unknown [employer] [id number] 2019-Present [phone] [address] [place] [address] [id number] [id number]. [id number] 2019 Unknown [id number] [id number].3. [id number] 2018 Unknown NONE 2.16.840.1 .766067.3.441 2024 Unknown [id number] 2.16.840.1.134942.3.441 2017 Unknown [id number] 2.16.840.1.675972.3.441 2017 Unknown [id number] 1.2.840.725968.1.13.239.2.7.3. [id number] 2016 Unknown [id number] 2.16.840.1.939722.3.441 1975 Unknown [id number] 2.16.840.1.121004.3.579.2.175 1975 Unknown [id number] 2.16.840.1.629064.3.579.2.196 1975 Unknown [id number] 2.16.840.1.629064.3.579.2.196 1975 Unknown [id number] 2.16.840.1.121669.3.579.2.173 1975 Unknown [id number] 2.16.840.1.873319.3.579.2.173 1975 Unknown [id number] 2.16.840.1.913340.3.579.2.173 1975 Unknown [id number] 2.16.840.1.328320.3.579.2.173 1975 Unknown [id number] 2.16.840.1.523247.3.579.2.173 1975 Unknown [id number] 2.16.840.1.206124.3.579.2.173 1975 Unknown [id number] 2.16.840.1.875595.3.579.2.173 1975 Unknown [id number] 2.16.840.1.827164.3.579.2.173 1975 Unknown [id number] 2.16.840.1.790667.3.579.2.173 1975 Unknown [id number] 2.16.840.1.772284.3.579.2.173 1975 Unknown [id number] 2.16.840.1.548288.3.579.2.173 1975 Unknown [id number] 2.16.840.1.266461.3.579.2.1286 1975 Unknown [id number] 2.16.840.1.678372.3.579.2.1286 Self-pay [id number] 2.16.840.1.216029.3.140.1.7299 9.5.4 Social History Date Type Detail Facility Start: [facility] smoker [facility] Start: 08-29-2019 End: 12-31-2023 Former smoker [employer] Start: Current every day smoker [facility] MEJIA [facility] Start: 04-19-2019 End: 06-08-2019 Tobacco smoking status NHIS [place] Start: 07-14-1998 End: 07-14-2018 History of tobacco use [place]ig[place] Start: 04-19-2019 End: 12-23-2023 Cigarettes smoked current (pack per day) - Reported [employer] [facility] Start: 04-19-2019 End: 12-23-2023 Alcohol intake Yes [employer] [facility] Start: 10-29-2014 Tobacco Comment Has tried to q uit but just can't seem to [employer] Start: 09-10-2014 Alcohol Comment [facility] drinker [facility] [place] Sex Assigned At Not on file [employer] [place] Start: 06-08-2019 End: 12-21-2022 Alcohol intake Current drinker of alcohol (finding) [employer] [place] Start: 07-14-1998 End: 07-14-2018 History of tobacco use Current smoker [employer] Phone: Assertion Emotional stress (finding) [facility] Tobacco smoking status Unknown if ever sm oked [facility] Work Phone: Exposure to SARS-CoV -2 (event) Unable to assess [employer] KELLY Start: 01-24-2020 End: 12-31-2023 Tobacco use and exposure Never used [employer] KE[place] Start: 09-26-2021 End: 08-20-2022 Exposure to SARS-CoV-2 (event) Not sure [facility] [employer] [place] Exposure to SARS-CoV -2 (event) Yes [facility] [employer] [place] Assertion Gender identity finding (finding) [facility] Assertion Finding of sexua l orientation (finding) [facility] Assertion Family disruptio n (finding) [facility] Assertion Lives with paren ts (finding) [facility] Assertion Family problems (finding) [facility] Start: 1975 Sex Assigned At Female M una [employer] Phone: Start: 01-03-2021 End: 03-12-2024 Alcohol intake Ex-drinker (finding) [facility]: Assertion Sexually active (finding) [facility] Assertion Changed job (finding) [facility] Assertion Stress (finding) [facility] Start: 07-28-2022 End: 01-27-2023 History SDOH Alcohol Frequency 1 [employer] Work Phone: Assertion Lives with famil y (finding) [facility] Assertion Unemployed (finding) [facility] How often to you hav e a drink containing alcohol? Never [employer] How many standard drinks containing alcohol do you have on a typical day? Patient does not drink [employer] Start: 09-04-2020 Gender identity Identifies as female gender (finding) [employer] Start: 09-04-2020 Sexual orientation Heterosexual (devorah merrill) [employer] Assertion Exposure to poll ution (event) [facility] Has the [employer], oil, or water company threatened to shut off services in your home in past 12Mo No [employer] (I/We) worried wheth er (my/our) food would run out before (I/we) got money to buy more. Never true [employer] Assertion Family illness (situation) [facility] NEGATED: Highlighted row Assertion Current drinker of alcohol (finding) [facility] NEGATED: Highlighted row Assertion Finding relating to drug misuse behavior (finding) [facility] NEGATED: Highlighted row Assertion Exposure to pollution (event) [facility] NEGATED: Highlighted row Assertion Tobacco user (finding) [facility] Work Phone: NEGATED: Highlighted row Assertion [facility] NEGATED: Highlighted row Assertion Sexually active (finding) [facility] Goals Date Patient Goal Desired Activity /State Personal health goal Personal health goal Personal health goal Functional Status Date Assessment Result Facility Finding [facility] Work Phone: Mental Status Date Assessment Result Facility Cognitive function No anxiety Anxiety (fi nding) [facility] Work Phone: Clinical Notes 10-20-2019 to 06-05-2024 Discharge InstructionsDischarge Instr - COCAttachments Note Date & Type Note Facility 06-05-2024 Note XR ELBOW RT MIN 3 VW S Procedure: Right elbow radiographs performed Number of views:3 History:Injury and pain Comparison:None Findings: There is no fracture, dislocation, effusion, or destructive lesion. Impression: No acute findings. Finalized by Reshma Golden DO on 06/05/2024 6:40 PM [facility] 03-12-2024 Hospital Discharge instructions Elizabeth Stoddard APRN [...] Contact Information Primary Emergency Contact: Hemant Tadeo [facility] Mobile Relation: Child Preferred language: Beninese Spreader Box Operator needed? No Secondary Emergency Contact: [place] [address] [facility] Mobile Relation: Child Past Surgical History: Past Surgical History: Procedure Laterality Date ABDOMINAL ADHESION SURGERY 08/20/2021 during oophorectomy surgery/ BREAST LUMPECTOMY Left 2003 CARDIAC CATHETERIZATION CARDIAC CATHETERIZATION Left 06/07/2018 [facility] Dr[facility] Ronan Rodriguez CARDIAC CATHETERIZATION Left 12/29/2019 right radial[facility] Dr. Ronan Rodriguez CARDIAC CATHETERIZATION Left 11/06/2021 [facility]/ Dr Rodriguez/ unable right radial/ successful left radial CARDIAC PROCEDURE N/A 05/06/2023 Left heart cath / coronary angiography performed by Ronan Rodriguez MD at [facility] CARDIAC CATH/IR LAB CHOLECYSTECTOMY 2007 COLONOSCOPY 2010 history of polyps COLONOSCOPY 06/17/2017 COLONOSCOPY 09/26/2020 COLONOSCOPY N/A 09/26/2020 COLONOSCOPY POLYPECTOMY SNARE HOT BIOPSY FORCEPS performed by Alvino Zavala MD at [facility] OR CORONARY STENT PLACEMENT 2017 unknown where placed HYSTERECTOMY (CERVIX STATUS UNKNOWN) MASTOID SURGERY OTHER SURGICAL HISTORY Inserted hospital monitor OVARY REMOVAL Bilateral 08/20/2021 OVARY SURGERY Bilateral 08/20/2021 OOPHORECTOMY LAPAROSCOPIC-LAPAROTOMY, release of hernia, lysis of adhesions performed by Geoff Chu MD at [facility] OR PA COLON CA SCRN NOT HI RSK IND N/A 06/17/2017 COLONOSCOPY performed by Johanne Sherman DO at [facility] OR SPINE SURGERY lower back UPPER GASTROINTESTINAL ENDOSCOPY N/A 12/03/2018 EGD ESOPHAGOGASTRODUODENOSCOPY performed by Matt Harris MD at [facility] OR UPPER GASTROINTESTINAL ENDOSCOPY 09/26/2020 UPPER GASTROINTESTINAL ENDOSCOPY N/A 09/26/2020 EGD BIOPSY performed by Alvino Zavala MD at [facility] OR UPPER GASTROINTESTINAL ENDOSCOPY 01/03/2021 /[facility] UPPER GASTROINTESTINAL ENDOSCOPY N/A 01/03/2021 EGD BIOPSY performed by Alvino Zavala MD at [facility] OR UPPER GASTROINTESTINAL ENDOSCOPY N/A 08/17/2023 EGD BIOPSY performed by Car Matthews MD at [facility] OR Immunization History: Immunization History Administered Date(s) [...] medication regimen Z91.148 Acute cerebrovascular accident (CVA) ([facility]) I63.9 Cryptogenic stroke ([facility]) I63.9 Internal carotid artery stenosis, right I65.21 Atrial fibrillation with RVR ([facility]) I48.91 Chest wall pain R07.89 MATT (obstructive sleep apnea) G47.33 Bite from dog W54.0XXA Chest pain in adult R07.9 Chest pain R07.9 Intractable abdominal pain R10.9 Mild malnutrition ([facility]) E44.1 Isolation/Infection: Isolation No Isolation Patient Infection [...] (191 lb) Mental Status: {IP PT MENTAL STATUS:21942} IV Access: { COOPER IV ACCESS:762351014} Nursing Mobility/ADLs: Walking {CHP DME ADLs:671379568} Transfer {CHP DME ADLs:340226161} Bathing {CHP DME ADLs:332697543} Dressing {CHP DME ADLs:155419055} Toileting {CHP DME ADLs:192823127} Feeding {CHP DME ADLs:027635927} Torch Cutter {CHP DME ADLs:745056929} Med Delivery { COOPER MED Delivery:663158372} Wound Care Documentation and Therapy: Elimination: Continence: Bowel: {YES / NO:} Bladder: {YES / NO:} Urinary Catheter: {Urinary Catheter:636687412} Colostomy/Ileostomy/Ileal Conduit: {YES / NO:} Date of Last BM: No intake or output data in the 24 hours ending 03/12/24 1409 No intake/output data recorded. Safety Concerns: { COOPER Safety Concerns:884667642} Impairments/Disabilities: { COOPER Impairments/Disabilities:766491003} Nutrition Therapy: Current Nutrition Therapy: { COOPER Diet List:110887725} Routes of Feeding: {P DME Other Feedings:144676284} Liquids: {Requirements Analyst liquid thickness:24562} Daily Fluid Restriction: {CHP DME Yes amt example:422518456} Last Modified Barium Swallow with Video (Video Swallowing Test): {Done Not Done Date:} Treatments at the Time of Hospital Discharge: Respiratory Treatments: Oxygen Therapy: {Therapy; copd oxygen:95991} Ventilator: { CC Vent List:259228552} Rehab Therapies: {THERAPEUTIC INTERVENTION:6257304415} Weight Bearing Status/Restrictions: {[facility] Weight Bearin} Other Medical Equipment (for information only, NOT a DME order): {EQUIPMENT:242241683} Other Treatments: Patient's personal belongings (please select all that are sent with patient): {CHP DME Belongings:503166696} RN SIGNATURE: {Esignature:480537548} CASE MANAGEMENT/SOCIAL WORK SECTION Inpatient Status Date: Readmission Risk Assessment Score: Readmission Risk Risk of Unplanned Readmission: 0 Discharging to Facility/ Agency Name: Address: Phone: Fax: Dialysis Facility (if applicable) Name: Address: Dialysis Schedule: Phone: Fax: Recordist/Grief Counselor signature: {Esignature:178470930} PHYSICIAN SECTION Prognosis: {Prognosis:9979494335} Condition at Discharge: { Patient Condition:682828181} Rehab Potential (if transferring to Rehab): {Prognosis:6985314467} Recommended Labs or Other Treatments After Discharge: Physician Certification: I certify the above information and transfer of Mike Sharif is necessary for the continuing treatment of the diagnosis listed and that she requires {Admit to Appropriate Level of Care:76253} for {GREATER/LESS:825648206} 30 days. Update Admission H&P: {CHP DME Changes in HandP:353372380} PHYSICIAN SIGNATURE: {Esignature:058031986} The following attachments cannot be sent through Care Everywhere.Hypokalemia (Beninese)High Potassium Foods: General Info (Beninese)Chest Pain (Beninese)Grieving (Actual/Anticipated) (Beninese)documented in this encounter [facility] 02-08-2024 Evaluation note Includes: Assessments for all patient encounters Findings [Z68.32 - Body mass index [BMI] 32.0-32.9, adult] assessment of body mass index Open Access - Established with Ena Fung CNP 02/08/2024 Last Documented On 4 5:41PM ; [facility] Uncomplicated mild intermittent asthma O pen Access - Established with Ena Fung CNP 02/08/2024 Last Documented On 4 5:41PM ; [facility] Generalized anxiety disorder BH Establis hed Patient with Oliva Short LISWS 01/27/2024 Last Documented On 4 12:10PM ; [facility] Mild recurrent major depression BH Estab lished Patient with Oliva Short LISWS 01/27/2024 Last Documented On 4 12:10PM ; [facility] [Z68.32 - Body mass index [B NE] 32.0-32.9, adult] assessment of body mass index Open Access - Established with Ena Fung [facility] 01/27/2024 Last Documented On 4 9:31AM ; [facility] Diabetes Risk Test Score was five score 01/27/2024 Open Access - Established with Ena Kenton [facility] 01/27/2024 Last Documented On 4 9:31AM ; [facility] 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 Chart Update with Vicky Jakub [facility] 01/11/2024 Last Documented On 4 8:24AM ; [facility] [E87.6 - Hypokalemia] hypokalemia Medica l Established Patient with Ena Fung [facility] 09/07/2023 Last Documented On 4 2:49PM ; [facility] [J10.1 - Influenza due to ot her identified influenza virus with other respiratory manifestations] influenza A with respiratory manifestations Medical Established Patient with Ena Fung [facility] 09/07/2023 Last Documented On 4 2:49PM ; [facility] Assessment of body mass index Medical Es tablished Patient with Ena Fung [facility] 09/07/2023 Last Documented On 4 2:49PM ; [facility] [Z68.32 - Body mass index [B NE] 32.0-32.9, adult] assessment of body mass index Medical Established Patient with Vicky Jakub [facility] 08/20/2023 Last Documented On 4 8:26AM ; [facility] Chronic gastritis Medical Established Patient wi th Vicky Jakub [facility] 08/20/2023 Last Documented On 4 8:26AM ; [facility] Esophageal reflux without esophagitis Me dical Established Patient with Vicky Call [facility] 08/20/2023 Last Documented On 4 8:26AM ; [facility] Generalized anxiety disorder Medical Est ablished Patient with Vicky Call [employer] 08/20/2023 Last Documented On 4 8:26AM ; [facility] Uncomplicated mild intermittent asthma M edical Established Patient with Vicky Call [employer] 08/20/2023 Last Documented On 4 8:26AM ; [facility] Generalized anxiety disorder BH Establis hed Patient with Oliva Short [facility] 08/04/2023 Last Documented On 4 1:56PM ; [facility] Mild recurrent major depression BH Estab lished Patient with Oliva Short [facility]IS[facility] 08/04/2023 Last Documented On 4 1:56PM ; [facility] [J01.90 - Acute sinusitis, unspecified] acute sinusitis Medical Established Patient with Ean Fung [employer] 08/04/2023 Last Documented On 4 4:29PM ; [facility] [J45.20 - Mild intermittent asthma, uncomplicated] uncomplicated mild intermittent asthma Medical Established Patient with Ena Fung [employer] 08/04/2023 Last Documented On 4 4:29PM ; [facility] [K59.09 - Other constipation ] constipation Medical Established Patient with Ena Kenton [employer] 08/04/2023 Last Documented On 4 4:29PM ; [facility] [Z68.33 - Body mass index [B NE] 33.0-33.9, adult] assessment of body mass index Medical Established Patient with Ena Fung [employer] 08/04/2023 Last Documented On 4 4:29PM ; [facility] Generalized anxiety disorder Medical Est ablished Patient with Ena Kenton [employer] 08/04/2023 Last Documented On 4 4:29PM ; [facility] [J45.20 - Mild intermittent asthma, uncomplicated] uncomplicated mild intermittent asthma Medical Established Patient with Ena Kenton [employer] 02/01/2023 Last Documented On 3 2:48PM ; [facility] [R14.0 - Abdominal distensio n (gaseous)] Abdominal bloating Medical Established Patient with Ena Kenton [employer] 02/01/2023 Last Documented On 3 2:48PM ; [facility] [Z68.34 - Body mass index [B NE] 34.0-34.9, adult] assessment of body mass index Medical Established Patient with Ena Fung [employer] 02/01/2023 Last Documented On 3 2:48PM ; [facility] [Z68.33 - Body mass index [B NE] 33.0-33.9, adult] assessment of body mass index Medical Established Patient with Ena Fung [employer] 12/21/2022 Last Documented On 3 10:56AM ; [facility] Generalized anxiety disorder Medical Est ablished Patient with Ena Fung [employer] 12/21/2022 Last Documented On 3 10:56AM ; [facility] Generalized anxiety disorder [facility] Patient with Oliva Short [facility] 11/19/2022 Last Documented On 3 3:17PM ; [facility] [Z68.34 - Body mass index [B NE] 34.0-34.9, adult] assessment of body mass index Open Access - Established with Ena Fnug [facility] 11/19/2022 Last Documented On 3 11:33AM ; [facility] Anxiety disorder NOS Open Access - Established w ith Ena Fung [facility] 11/19/2022 Last Documented On 3 11:33AM ; [facility] Diabetes Risk Test Score was five score 11/19/2022 Open Access - Established with Ena Fung [facility]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 physical activity Last Documented On 2 12:03PM ; [facility] Discussed current self-care methods/coping skills. ~Validated and normalized pt's feelings while assisting patient process recent events. ~Encouraged ongoing counseling. ~Discussed lifestyle changes to address chronic illness. ~Supported patient's personal health goals Last Documented On 2 9:32PM ; [facility] Discussed nutritional needs teach healthy choices including fruits and vegetables Last Documented On 2 2:12PM ; [facility] Patient education about a pr oper diet Last Documented On 2 2:12PM ; [facility] Discussed concerns about exe rcise : promote physical activity Last Documented On 2 2:12PM ; [facility] Discussed nutritional needs teach healthy choices including fruits and vegetables Last Documented On 1 4:05PM ; [facility] Patient education about a pr oper diet Last Documented On 1 4:05PM ; [facility] Discussed concerns about exe rcise : promote physical activity Last Documented On 1 4:05PM ; [facility] Discussed nutritional needs teach healthy choices including fruits and vegetables Last Documented On 1 7:23PM ; [facility] Patient education about a pr oper diet Last Documented On 1 7:23PM ; [facility] Patient education about a pr oper diet Last Documented On 1 7:45PM ; [facility] Patient education about meal planning Last Documented On 1 7:45PM ; [facility] Education about changing eat ing habits Last Documented On 1 7:45PM ; [facility] Patient education about high fiber diet Last Documented On 1 7:45PM ; [facility] Patient education about low fat diet Last Documented On 1 7:45PM ; [facility] Patient education about low cholesterol diet Last Documented On 1 7:45PM ; [facility] Patient education about low carbohydrate diet Last Documented On 1 7:45PM ; [facility] Discussed concerns about exe rcise : promote physical activity Last Documented On 1 7:23PM ; [facility] Discussed nutritional needs teach healthy choices including fruits and vegetables Last Documented On 1 4:54PM ; [facility] Patient education about a pr oper diet Last Documented On 1 4:54PM ; [facility] Patient education about a pr oper diet Last Documented On 1 5:25PM ; [facility] Patient education about meal planning Last Documented On 1 5:25PM ; [facility] Education about changing eat ing habits Last Documented On 1 5:25PM ; [facility] Patient education about high fiber diet Last Documented On 1 5:25PM ; [facility] Patient education about low fat diet Last Documented On 1 5:25PM ; [facility] Patient education about low cholesterol diet Last Documented On 1 5:25PM ; [facility] Patient education about low carbohydrate diet Last Documented On 1 5:25PM ; [facility] Patient education about high protein diet Last Documented On 1 5:25PM ; [facility] Discussed concerns about exe rcise : promote physical activity Last Documented On 1 4:54PM ; [facility] provided active listenin g, support and helped patient process through current symptoms and stressors related to family conflict. P[facility] discussed resources for housing and supports with patient. ~P discussed potential benefit of counseling and supports. Patient is willing to reconsider meeting with a provider at another agency than she has in the past as she does not want all of the same services Last Documented On 1 2:40PM ; [facility] Discussed nutritional needs teach healthy choices including fruits and vegetables Last Documented On 1 3:21PM ; [facility] Patient education about a pr oper diet Last Documented On 1 3:21PM ; [facility] Patient education about a pr oper diet Last Documented On 1 4:08PM ; [facility] Patient education about meal planning Last Documented On 1 4:08PM ; [facility] Education about changing eat ing habits Last Documented On 1 4:08PM ; [facility] Patient education about high fiber diet Last Documented On 1 4:08PM ; [facility] Patient education about low fat diet Last Documented On 1 4:08PM ; [facility] Patient education about low cholesterol diet Last Documented On 1 4:08PM ; [facility] Patient education about low carbohydrate diet Last Documented On 1 4:08PM ; [facility] Patient education about high protein diet Last Documented On 1 4:08PM ; [facility] Discussed concerns about exe rcise : promote physical activity Last Documented On 1 3:21PM ; [facility] Patient education about a pr oper diet Last Documented On 0 1:48PM ; [facility] Patient education about meal planning Last Documented On 0 1:48PM ; [facility] Education about changing eat ing habits Last Documented On 0 1:48PM ; [facility] Patient education about high fiber diet Last Documented On 0 1:48PM ; [facility] Patient education about low fat diet Last Documented On 0 1:48PM ; [facility] Patient education about low cholesterol diet Last Documented On 0 1:48PM ; [facility] Patient education about low carbohydrate diet Last Documented On 0 1:48PM ; [facility] Patient education about high protein diet Last Documented On 0 1:48PM ; [facility] offered active and suppo rtive listening, normalized [...] ~ Last Documented On 0 8:21AM ; [facility] Work Phone: Instructions Includes: Instructions for all patient encounters Education and Decision Aids were provided during visit for: Discussed nutritional needs teach healthy choices including fruits and vegetables Last Documented On 3 2:01PM ; [facility] Patient education about a pr oper diet Last Documented On 3 2:01PM ; [facility] Discussed concerns about exe rcise : promote physical activity Last Documented On 3 2:01PM ; [facility] Discussed nutritional needs teach healthy choices including fruits and vegetables Last Documented On 3 10:41AM ; [facility] Patient education about a pr oper diet Last Documented On 3 10:41AM ; [facility] Discussed concerns about exe rcise : promote physical activity Last Documented On 3 10:41AM ; [facility] offered active and suppo rtive listening, normalized emotions and feelings, processed current stressors and explored coping and stress reducing skills. ~[facility] discussed coping skills to manage increased anxiety such as breathing techniques, mindfulness and meditation. [facility] discussed potential benefit in counseling and provided resource list. ~[facility] discussed healthy lifestyle changes to implement Last Documented On 3 3:16PM ; [facility] Discussed nutritional needs teach healthy choices including fruits and vegetables Last Documented On 3 11:08AM ; [facility] Patient education about a pr oper diet Last Documented On 3 11:08AM ; [facility] Discussed concerns about exe rcise : promote physical activity Last Documented On 3 11:08AM ; [facility] Discussed nutritional needs teach healthy choices including fruits and vegetables Last Documented On 2 11:44AM ; [facility] Patient education about a pr oper diet Last Documented On 2 11:44AM ; [facility] Discussed concerns about exe rcise : promote physical activity Last Documented On 2 11:44AM ; [facility] Problems sleeping Last Documented On 2 9:03AM ; [facility] Discussed nutritional needs teach healthy choices including fruits and vegetables Last Documented On 2 8:19AM ; [facility] Patient education about a pr oper diet Last Documented On 2 8:19AM ; [facility] Discussed concerns about exe rcise : promote physical activity Last Documented On 2 8:19AM ; [facility] Discussed nutritional needs teach healthy choices including fruits and vegetables Last Documented On 2 11:56AM ; [facility] Patient education about a pr oper diet Last Documented On 2 11:56AM ; [facility] Discussed concerns about exe rcise : promote physical activity Last Documented On 2 11:56AM ; [facility] Discussed nutritional needs teach healthy choices including fruits and vegetables Last Documented On 2 12:03PM ; [facility] Patient education about a pr oper diet Last Documented On 2 12:03PM ; [facility] Discussed concerns about exe rcise : promote physical activity Last Documented On 2 12:03PM ; [facility] Discussed current self-care methods/coping skills. ~Validated and normalized pt's feelings while assisting patient process recent events. ~Encouraged ongoing counseling. ~Discussed lifestyle changes to address chronic illness. ~Supported patient's personal health goals Last Documented On 2 9:32PM ; [facility] Discussed nutritional needs teach healthy choices including fruits and vegetables Last Documented On 2 2:12PM ; [facility] Patient education about a pr oper diet Last Documented On 2 2:12PM ; [facility] Discussed concerns about exe rcise : promote physical activity Last Documented On 2 2:12PM ; [facility] Discussed nutritional needs teach healthy choices including fruits and vegetables Last Documented On 1 4:05PM ; [facility] Patient education about a pr oper diet Last Documented On 1 4:05PM ; [facility] Discussed concerns about exe rcise : promote physical activity Last Documented On 1 4:05PM ; [facility] Discussed nutritional needs teach healthy choices including fruits and vegetables Last Documented On 1 7:23PM ; [facility] Patient education about a pr oper diet Last Documented On 1 7:23PM ; [facility] Patient education about a pr oper diet Last Documented On 1 7:45PM ; [facility] Patient education about meal planning Last Documented On 7:45PM ; [facility] Education about changing eat ing habits Last Documented On 1 7:45PM ; [facility] Patient education about high fiber diet Last Documented On 1 7:45PM ; [facility] Patient education about low fat diet Last Documented On 7:45PM ; [facility] Patient education about low cholesterol diet Last Documented On 7:45PM ; [facility] Patient education about low carbohydrate diet Last Documented On 7:45PM ; [facility] Discussed concerns about exe rcise : promote physical activity Last Documented On 1 7:23PM ; [facility] Discussed nutritional needs teach healthy choices including fruits and vegetables Last Documented On 1 4:54PM ; [facility] Patient education about a pr oper diet Last Documented On 1 4:54PM ; [facility] Patient education about a pr oper diet Last Documented On 1 5:25PM ; [facility] Patient education about meal planning Last Documented On 1 5:25PM ; [facility] Education about changing eat ing habits Last Documented On 1 5:25PM ; [facility] Patient education about high fiber diet Last Documented On 1 5:25PM ; [facility] Patient education about low fat diet Last Documented On 1 5:25PM ; [facility] Patient education about low cholesterol diet Last Documented On 1 5:25PM ; [facility] Patient education about low carbohydrate diet Last Documented On 1 5:25PM ; [facility] Patient education about high protein diet Last Documented On 1 5:25PM ; [facility] Discussed concerns about exe rcise : promote physical activity Last Documented On 1 4:54PM ; [facility] provided active listenin g, support and helped patient process through current symptoms and stressors related to family conflict. [facility] [employer] discussed resources for housing and supports with patient. ~[facility] discussed potential benefit of counseling and supports. Patient is willing to reconsider meeting with a provider at another agency than she has in the past as she does not want all of the same services Last Documented On 1 2:40PM ; [facility] Discussed nutritional needs teach healthy choices including fruits and vegetables Last Documented On 1 3:21PM ; [facility] Patient education about a pr oper diet Last Documented On 1 3:21PM ; [facility] Patient education about a pr oper diet Last Documented On 1 4:08PM ; [facility] Patient education about meal planning Last Documented On 1 4:08PM ; [facility] Education about changing eat ing habits Last Documented On 1 4:08PM ; [facility] Patient education about high fiber diet Last Documented On 1 4:08PM ; [facility] Patient education about low fat diet Last Documented On 1 4:08PM ; [facility] Patient education about low cholesterol diet Last Documented On 1 4:08PM ; [facility] Patient education about low carbohydrate diet Last Documented On 1 4:08PM ; [facility] Patient education about high protein diet Last Documented On 1 4:08PM ; [facility] Discussed concerns about exe rcise : promote physical activity Last Documented On 1 3:21PM ; [facility] Patient education about a pr oper diet Last Documented On 0 1:48PM ; [facility] Patient education about meal planning Last Documented On 0 1:48PM ; [facility] Education about changing eat ing habits Last Documented On 0 1:48PM ; [facility] Patient education about high fiber diet Last Documented On 0 1:48PM ; [facility] Patient education about low fat diet Last Documented On 0 1:48PM ; [facility] Patient education about low cholesterol diet Last Documented On 0 1:48PM ; [facility] Patient education about low carbohydrate diet Last Documented On 0 1:48PM ; [facility] Patient education about high protein diet Last Documented On 0 1:48PM ; [facility] offered active and suppo rtive listening, normalized emotions and feelings, processed current stressors and explored coping and stress reducing skills. ~[facility] attempted to discuss sleep hygiene strategies with patient including meditation, reducing caffeine use, increaing physical activity during the day as tolerated, and engaging in calming activities. Patient states that she has tried many things in the past and nothing has been sucessful. ~ Last Documented On 0 8:21AM ; [facility] Work Phone: Instructions Includes: Instructions for all patient encounters Education and Decision Aids were provided during visit for: Discussed nutritional needs teach healthy choices including fruits and vegetables Last Documented On 4 2:28PM ; [facility] Patient education about a pr oper diet Last Documented On 4 2:28PM ; [facility] Discussed concerns about exe rcise : promote physical activity Last Documented On 4 2:28PM ; [facility] Not requesting contraception Last Documented On 4 2:28PM ; [facility] Discussed nutritional needs teach healthy choices including fruits and vegetables Last Documented On 3 2:01PM ; [facility] Patient education about a pr oper diet Last Documented On 3 2:01PM ; [facility] Discussed concerns about exe rcise : promote physical activity Last Documented On 3 2:01PM ; [facility] Discussed nutritional needs teach healthy choices including fruits and vegetables Last Documented On 3 10:41AM ; [facility] Patient education about a pr oper diet Last Documented On 3 10:41AM ; [facility] Discussed concerns about exe rcise : promote physical activity Last Documented On 3 10:41AM ; [facility] active and suppo rtive listening, normalized emotions and feelings, processed current stressors and explored coping and stress reducing skills. ~[facility] discussed coping skills to manage increased anxiety such as breathing techniques, mindfulness and meditation. [facility] discussed potential benefit in counseling and provided resource list. ~[facility] discussed healthy lifestyle changes to implement Last Documented On 3 3:16PM ; [facility] Discussed nutritional needs teach healthy choices including fruits and vegetables Last Documented On 3 11:08AM ; [facility] Patient education about a pr oper diet Last Documented On 3 11:08AM ; [facility] Discussed concerns about exe rcise : promote physical activity Last Documented On 3 11:08AM ; [facility] Discussed nutritional needs teach healthy choices including fruits and vegetables Last Documented On 2 11:44AM ; [facility] Patient education about a pr oper diet Last Documented On 2 11:44AM ; [facility] Discussed concerns about exe rcise : promote physical activity Last Documented On 2 11:44AM ; [facility] Problems sleeping Last Documented On 2 9:03AM ; [facility] Discussed nutritional needs teach healthy choices including fruits and vegetables Last Documented On 2 8:19AM ; [facility] Patient education about a pr oper diet Last Documented On 2 8:19AM ; [facility] Discussed concerns about exe rcise : promote physical activity Last Documented On 2 8:19AM ; [facility] Discussed nutritional needs teach healthy choices including fruits and vegetables Last Documented On 2 11:56AM ; [facility] Patient education about a pr oper diet Last Documented On 2 11:56AM ; [facility] Discussed concerns about exe rcise : promote physical activity Last Documented On 2 11:56AM ; [facility] Discussed nutritional needs teach healthy choices including fruits and vegetables Last Documented On 2 12:03PM ; [facility] Patient education about a pr oper diet Last Documented On 2 12:03PM ; [facility] Discussed concerns about exe rcise : promote physical activity Last Documented On 2 12:03PM ; [facility] Discussed current self-care methods/coping skills. ~Validated and normalized pt's feelings while assisting patient process recent events. ~Encouraged ongoing counseling. ~Discussed lifestyle changes to address chronic illness. ~Supported patient's personal health goals Last Documented On 2 9:32PM ; [facility] Discussed nutritional needs teach healthy choices including fruits and vegetables Last Documented On 2 2:12PM ; [facility] Patient education about a pr oper diet Last Documented On 2 2:12PM ; [facility] Discussed concerns about exe rcise : promote physical activity Last Documented On 2 2:12PM ; [facility] Discussed nutritional needs teach healthy choices including fruits and vegetables Last Documented On 1 4:05PM ; [facility] Patient education about a pr oper diet Last Documented On 1 4:05PM ; [facility] Discussed concerns about exe rcise : promote physical activity Last Documented On 1 4:05PM ; [facility] Discussed nutritional needs teach healthy choices including fruits and vegetables Last Documented On 1 7:23PM ; [facility] Patient education about a pr oper diet Last Documented On 1 7:23PM ; [facility] Patient education about a pr oper diet Last Documented On 1 7:45PM ; [facility] Patient education about meal planning Last Documented On 1 7:45PM ; [facility] Education about changing eat ing habits Last Documented On 1 7:45PM ; [facility] Patient education about high fiber diet Last Documented On 1 7:45PM ; [facility] Patient education about low fat diet Last Documented On 1 7:45PM ; [facility] Patient education about low cholesterol diet Last Documented On 1 7:45PM ; [facility] Patient education about low carbohydrate diet Last Documented On 1 7:45PM ; [facility] Discussed concerns about exe rcise : promote physical activity Last Documented On 1 7:23PM ; [facility] Discussed nutritional needs teach healthy choices including fruits and vegetables Last Documented On 1 4:54PM ; [facility] Patient education about a pr oper diet Last Documented On 1 4:54PM ; [facility] Patient education about a pr oper diet Last Documented On 1 5:25PM ; [facility] Patient education about meal planning Last Documented On 1 5:25PM ; [facility] Education about changing eat ing habits Last Documented On 1 5:25PM ; [facility] Patient education about high fiber diet Last Documented On 1 5:25PM ; [facility] Patient education about low fat diet Last Documented On 1 5:25PM ; [facility] Patient education about low cholesterol diet Last Documented On 1 5:25PM ; [facility] Patient education about low carbohydrate diet Last Documented On 1 5:25PM ; [facility] Patient education about high protein diet Last Documented On 1 5:25PM ; [facility] Discussed concerns about exe rcise : promote physical activity Last Documented On 1 4:54PM ; [facility] provided active listenin g, support and helped patient process through current symptoms and stressors related to family conflict. P/[facility] discussed resources for housing and supports with patient. ~P discussed potential benefit of counseling and supports. Patient is willing to reconsider meeting with a provider at another agency than she has in the past as she does not want all of the same services Last Documented On 1 2:40PM ; [facility] Discussed nutritional needs teach healthy choices including fruits and vegetables Last Documented On 1 3:21PM ; [facility] Patient education about a pr oper diet Last Documented On 1 3:21PM ; [facility] Patient education about a pr oper diet Last Documented On 1 4:08PM ; [facility] Patient education about meal planning Last Documented On 1 4:08PM ; [facility] Education about changing eat ing habits Last Documented On 1 4:08PM ; [facility] Patient education about high fiber diet Last Documented On 1 4:08PM ; [facility] Patient education about low fat diet Last Documented On 1 4:08PM ; [facility] Patient education about low cholesterol diet Last Documented On 1 4:08PM ; [facility] Patient education about low carbohydrate diet Last Documented On 1 4:08PM ; [facility] Patient education about high protein diet Last Documented On 1 4:08PM ; [facility] Discussed concerns about exe rcise : promote physical activity Last Documented On 1 3:21PM ; [facility] Patient education about a pr oper diet Last Documented On 0 1:48PM ; [facility] Patient education about meal planning Last Documented On 0 1:48PM ; [facility] Education about changing eat ing habits Last Documented On 0 1:48PM ; [facility] Patient education about high fiber diet Last Documented On 0 1:48PM ; [facility] Patient education about low fat diet Last Documented On 0 1:48PM ; [facility] Patient education about low cholesterol diet Last Documented On 0 1:48PM ; [facility] Patient education about low carbohydrate diet Last Documented On 0 1:48PM ; [facility] Patient education about high protein diet Last Documented On 0 1:48PM ; [facility] offered active and suppo rtive listening, normalized emotions and feelings, processed current stressors and explored coping and stress reducing skills. ~[facility] attempted to discuss sleep hygiene strategies with patient including meditation, reducing caffeine use, increaing physical activity during the day as tolerated, and engaging in calming activities. Patient states that she has tried many things in the past and nothing has been sucessful. ~ Last Documented On 0 8:21AM ; [facility] Work Phone: Instructions Includes: Instructions for all patient encounters Education and Decision Aids were provided during visit for: Discussed nutritional needs teach healthy choices including fruits and vegetables Last Documented On 4 2:02PM ; [facility] Patient education about a pr oper diet Last Documented On 4 2:02PM ; [facility] Patient education about an a sthma action plan Last Documented On 4 2:13PM ; [facility] Discussed concerns about exe rcise : promote physical activity Last Documented On 4 2:02PM ; [facility] Discussed nutritional needs teach healthy choices including fruits and vegetables Last Documented On 4 8:36AM ; [facility] Patient education about a pr oper diet Last Documented On 4 8:36AM ; [facility] Discussed concerns about exe rcise : promote physical activity Last Documented On 4 8:36AM ; [facility] offered active and suppo rtive listening, normalized emotions and feelings, and processed current stressors. ~[facility] discussed coping skills to manage increased anxiety. ~[facility] discussed community resources and supports Last Documented On 4 1:56PM ; [facility] Discussed nutritional needs teach healthy choices including fruits and vegetables Last Documented On 4 2:28PM ; [facility] Patient education about a pr oper diet Last Documented On 4 2:28PM ; [facility] Discussed concerns about exe rcise : promote physical activity Last Documented On 4 2:28PM ; [facility] Not requesting contraception Last Documented On 4 2:28PM ; [facility] Discussed nutritional needs teach healthy choices including fruits and vegetables Last Documented On 3 2:01PM ; [facility] Patient education about a pr oper diet Last Documented On 3 2:01PM ; [facility] Discussed concerns about exe rcise : promote physical activity Last Documented On 3 2:01PM ; [facility] Discussed nutritional needs teach healthy choices including fruits and vegetables Last Documented On 3 10:41AM ; [facility] Patient education about a pr oper diet Last Documented On 3 10:41AM ; [facility] Discussed concerns about exe rcise : promote physical activity Last Documented On 3 10:41AM ; [facility] active and suppo rtive listening, normalized emotions and feelings, processed current stressors and explored coping and stress reducing skills. ~P discussed coping skills to manage increased anxiety such as breathing techniques, mindfulness and meditation. P discussed potential benefit in counseling and provided resource list. ~[facility] discussed healthy lifestyle changes to implement Last Documented On 3 3:16PM ; [facility] Discussed nutritional needs teach healthy choices including fruits and vegetables Last Documented On 3 11:08AM ; [facility] Patient education about a pr oper diet Last Documented On 3 11:08AM ; [facility] Discussed concerns about exe rcise : promote physical activity Last Documented On 3 11:08AM ; [facility] Discussed nutritional needs teach healthy choices including fruits and vegetables Last Documented On 2 11:44AM ; [facility] Patient education about a pr oper diet Last Documented On 2 11:44AM ; [facility] Discussed concerns about exe rcise : promote physical activity Last Documented On 2 11:44AM ; [facility] Problems sleeping Last Documented On 2 9:03AM ; [facility] Discussed nutritional needs teach healthy choices including fruits and vegetables Last Documented On 2 8:19AM ; [facility] Patient education about a pr oper diet Last Documented On 2 8:19AM ; [facility] Discussed concerns about exe rcise : promote physical activity Last Documented On 2 8:19AM ; [facility] Discussed nutritional needs teach healthy choices including fruits and vegetables Last Documented On 2 11:56AM ; [facility] Patient education about a pr oper diet Last Documented On 2 11:56AM ; [facility] Discussed concerns about exe rcise : promote physical activity Last Documented On 2 11:56AM ; [facility] Discussed nutritional needs teach healthy choices including fruits and vegetables Last Documented On 2 12:03PM ; [facility] Patient education about a pr oper diet Last Documented On 2 12:03PM ; [facility] Discussed concerns about exe rcise : promote physical activity Last Documented On 2 12:03PM ; [facility] Discussed current self-care methods/coping skills. ~Validated and normalized pt's feelings while assisting patient process recent events. ~Encouraged ongoing counseling. ~Discussed lifestyle changes to address chronic illness. ~Supported patient's personal health goals Last Documented On 2 9:32PM ; [facility] Discussed nutritional needs teach healthy choices including fruits and vegetables Last Documented On 2 2:12PM ; [facility] Patient education about a pr oper diet Last Documented On 2 2:12PM ; [facility] Discussed concerns about exe rcise : promote physical activity Last Documented On 2 2:12PM ; [facility] Discussed nutritional needs teach healthy choices including fruits and vegetables Last Documented On 1 4:05PM ; [facility] Patient education about a pr oper diet Last Documented On 1 4:05PM ; [facility] Discussed concerns about exe rcise : promote physical activity Last Documented On 1 4:05PM ; [facility] Discussed nutritional needs teach healthy choices including fruits and vegetables Last Documented On 1 7:23PM ; [facility] Patient education about a pr oper diet Last Documented On 1 7:23PM ; [facility] Patient education about a pr oper diet Last Documented On 1 7:45PM ; [facility] Patient education about meal planning Last Documented On 1 7:45PM ; [facility] Education about changing eat ing habits Last Documented On 1 7:45PM ; [facility] Patient education about high fiber diet Last Documented On 1 7:45PM ; [facility] Patient education about low fat diet Last Documented On 1 7:45PM ; [facility] Patient education about low cholesterol diet Last Documented On 1 7:45PM ; [facility] Patient education about low carbohydrate diet Last Documented On 1 7:45PM ; [facility] Discussed concerns about exe rcise : promote physical activity Last Documented On 1 7:23PM ; [facility] Discussed nutritional needs teach healthy choices including fruits and vegetables Last Documented On 1 4:54PM ; [facility] Patient education about a pr oper diet Last Documented On 1 4:54PM ; [facility] Patient education about a pr oper diet Last Documented On 1 5:25PM ; [facility] Patient education about meal planning Last Documented On 1 5:25PM ; [facility] Education about changing eat ing habits Last Documented On 1 5:25PM ; [facility] Patient education about high fiber diet Last Documented On 1 5:25PM ; [facility] Patient education about low fat diet Last Documented On 1 5:25PM ; [facility] Patient education about low cholesterol diet Last Documented On 1 5:25PM ; [facility] Patient education about low carbohydrate diet Last Documented On 1 5:25PM ; [facility] Patient education about high protein diet Last Documented On 1 5:25PM ; [facility] Discussed concerns about exe rcise : promote physical activity Last Documented On 1 4:54PM ; [facility] provided active listenin g, support and helped patient process through current symptoms and stressors related to family conflict. [facility] discussed resources for housing and supports with patient. ~[facility] discussed potential benefit of counseling and supports. Patient is willing to reconsider meeting with a provider at another agency than she has in the past as she does not want all of the same services Last Documented On 1 2:40PM ; [facility] Discussed nutritional needs teach healthy choices including fruits and vegetables Last Documented On 1 3:21PM ; [facility] Patient education about a pr oper diet Last Documented On 1 3:21PM ; [facility] Patient education about a pr oper diet Last Documented On 1 4:08PM ; [facility] Patient education about meal planning Last Documented On 1 4:08PM ; [facility] Education about changing eat ing habits Last Documented On 1 4:08PM ; [facility] Patient education about high fiber diet Last Documented On 1 4:08PM ; [facility] Patient education about low fat diet Last Documented On 1 4:08PM ; [facility] Patient education about low cholesterol diet Last Documented On 1 4:08PM ; [facility] Patient education about low carbohydrate diet Last Documented On 1 4:08PM ; [facility] Patient education about high protein diet Last Documented On 1 4:08PM ; [facility] Discussed concerns about exe rcise : promote physical activity Last Documented On 1 3:21PM ; [facility] Patient education about a pr oper diet Last Documented On 0 1:48PM ; [facility] Patient education about meal planning Last Documented On 0 1:48PM ; [facility] Education about changing eat ing habits Last Documented On 0 1:48PM ; [facility] Patient education about high fiber diet Last Documented On 0 1:48PM ; [facility] Patient education about low fat diet Last Documented On 0 1:48PM ; [facility] Patient education about low cholesterol diet Last Documented On 0 1:48PM ; [facility] Patient education about low carbohydrate diet Last Documented On 0 1:48PM ; [facility] Patient education about high protein diet Last Documented On 0 1:48PM ; [facility] offered active and suppo rtive listening, normalized emotions and feelings, processed current stressors and explored coping and stress reducing skills. ~[facility] attempted to discuss sleep hygiene strategies with patient including meditation, reducing caffeine use, increaing physical activity during the day as tolerated, and engaging in calming activities. Patient states that she has tried many things in the past and nothing has been sucessful. ~ Last Documented On 0 8:21AM ; [facility] Work Phone: Instructions Includes: Instructions for all patient encounters Education and Decision Aids were provided during visit for: Discussed nutritional needs teach healthy choices including fruits and vegetables Last Documented On 4 2:02PM ; [facility] Patient education about a pr oper diet Last Documented On 4 2:02PM ; [facility] Patient education about an a sthma action plan Last Documented On 4 2:13PM ; [facility] Discussed concerns about exe rcise : promote physical activity Last Documented On 4 2:02PM ; [facility] Discussed nutritional needs teach healthy choices including fruits and vegetables Last Documented On 4 8:36AM ; [facility] Patient education about a pr oper diet Last Documented On 4 8:36AM ; [facility] Discussed concerns about exe rcise : promote physical activity Last Documented On 4 8:36AM ; [facility] offered active and suppo rtive listening, normalized emotions and feelings, and processed current stressors. ~[facility] discussed coping skills to manage increased anxiety. ~[facility] discussed community resources and supports Last Documented On 4 1:56PM ; [facility] Discussed nutritional needs teach healthy choices including fruits and vegetables Last Documented On 4 2:28PM ; [facility] Patient education about a pr oper diet Last Documented On 4 2:28PM ; [facility] Discussed concerns about exe rcise : promote physical activity Last Documented On 4 2:28PM ; [facility] Not requesting contraception Last Documented On 4 2:28PM ; [facility] Discussed nutritional needs teach healthy choices including fruits and vegetables Last Documented On 3 2:01PM ; [facility] Patient education about a pr oper diet Last Documented On 3 2:01PM ; [facility] Discussed concerns about exe rcise : promote physical activity Last Documented On 3 2:01PM ; [facility] Discussed nutritional needs teach healthy choices including fruits and vegetables Last Documented On 3 10:41AM ; [facility] Patient education about a pr oper diet Last Documented On 3 10:41AM ; [facility] Discussed concerns about exe rcise : promote physical activity Last Documented On 3 10:41AM ; [facility] offered active and suppo rtive listening, normalized emotions and feelings, processed current stressors and explored coping and stress reducing skills. ~P discussed coping skills to manage increased anxiety such as breathing techniques, mindfulness and meditation. P discussed potential benefit in counseling and provided resource list. ~[facility] discussed healthy lifestyle changes to implement Last Documented On 3 3:16PM ; [facility] Discussed nutritional needs teach healthy choices including fruits and vegetables Last Documented On 3 11:08AM ; [facility] Patient education about a pr oper diet Last Documented On 3 11:08AM ; [facility] Discussed concerns about exe rcise : promote physical activity Last Documented On 3 11:08AM ; [facility] Discussed nutritional needs teach healthy choices including fruits and vegetables Last Documented On 2 11:44AM ; [facility] Patient education about a pr oper diet Last Documented On 2 11:44AM ; [facility] Discussed concerns about exe rcise : promote physical activity Last Documented On 2 11:44AM ; [facility] Problems sleeping Last Documented On 2 9:03AM ; [facility] Discussed nutritional needs teach healthy choices including fruits and vegetables Last Documented On 2 8:19AM ; [facility] Patient education about a pr oper diet Last Documented On 2 8:19AM ; [facility] Discussed concerns about exe rcise : promote physical activity Last Documented On 2 8:19AM ; [facility] Discussed nutritional needs teach healthy choices including fruits and vegetables Last Documented On 2 11:56AM ; [facility] Patient education about a pr oper diet Last Documented On 2 11:56AM ; [facility] Discussed concerns about exe rcise : promote physical activity Last Documented On 2 11:56AM ; [facility] Discussed nutritional needs teach healthy choices including fruits and vegetables Last Documented On 2 12:03PM ; [facility] Patient education about a pr oper diet Last Documented On 2 12:03PM ; [facility] Discussed concerns about exe rcise : promote physical activity Last Documented On 2 12:03PM ; [facility] Discussed current self-care methods/coping skills. ~Validated and normalized pt's feelings while assisting patient process recent events. ~Encouraged ongoing counseling. ~Discussed lifestyle changes to address chronic illness. ~Supported patient's personal health goals Last Documented On 2 9:32PM ; [facility] Discussed nutritional needs teach healthy choices including fruits and vegetables Last Documented On 2 2:12PM ; [facility] Patient education about a pr oper diet Last Documented On 2 2:12PM ; [facility] Discussed concerns about exe rcise : promote physical activity Last Documented On 2 2:12PM ; [facility] Discussed nutritional needs teach healthy choices including fruits and vegetables Last Documented On 1 4:05PM ; [facility] Patient education about a pr oper diet Last Documented On 1 4:05PM ; [facility] Discussed concerns about exe rcise : promote physical activity Last Documented On 1 4:05PM ; [facility] Discussed nutritional needs teach healthy choices including fruits and vegetables Last Documented On 1 7:23PM ; [facility] Patient education about a pr oper diet Last Documented On 1 7:23PM ; [facility] Patient education about a pr oper diet Last Documented On 1 7:45PM ; [facility] Patient education about meal planning Last Documented On 1 7:45PM ; [facility] Education about changing eat ing habits Last Documented On 1 7:45PM ; [facility] Patient education about high fiber diet Last Documented On 1 7:45PM ; [facility] Patient education about low fat diet Last Documented On 1 7:45PM ; [facility] Patient education about low cholesterol diet Last Documented On 1 7:45PM ; [facility] Patient education about low carbohydrate diet Last Documented On 7:45PM ; [facility] Discussed concerns about exe rcise : promote physical activity Last Documented On 1 7:23PM ; [facility] Discussed nutritional needs teach healthy choices including fruits and vegetables Last Documented On 1 4:54PM ; [facility] Patient education about a pr oper diet Last Documented On 1 4:54PM ; [facility] Patient education about a pr oper diet Last Documented On 1 5:25PM ; [facility] Patient education about meal planning Last Documented On 1 5:25PM ; [facility] Education about changing eat ing habits Last Documented On 1 5:25PM ; [facility] Patient education about high fiber diet Last Documented On 1 5:25PM ; [facility] Patient education about low fat diet Last Documented On 1 5:25PM ; [facility] Patient education about low cholesterol diet Last Documented On 1 5:25PM ; [facility] Patient education about low carbohydrate diet Last Documented On 1 5:25PM ; [facility] Patient education about high protein diet Last Documented On 1 5:25PM ; [facility] Discussed concerns about exe rcise : promote physical activity Last Documented On 1 4:54PM ; [facility] provided active listenin g, support and helped patient process through current symptoms and stressors related to family conflict. [facility] discussed resources for housing and supports with patient. ~[facility] discussed potential benefit of counseling and supports. Patient is willing to reconsider meeting with a provider at another agency than she has in the past as she does not want all of the same services Last Documented On 1 2:40PM ; [facility] Discussed nutritional needs teach healthy choices including fruits and vegetables Last Documented On 1 3:21PM ; [facility] Patient education about a pr oper diet Last Documented On 1 3:21PM ; [facility] Patient education about a pr oper diet Last Documented On 1 4:08PM ; [facility] Patient education about meal planning Last Documented On 1 4:08PM ; [facility] Education about changing eat ing habits Last Documented On 1 4:08PM ; [facility] Patient education about high fiber diet Last Documented On 1 4:08PM ; [facility] Patient education about low fat diet Last Documented On 1 4:08PM ; [facility] Patient education about low cholesterol diet Last Documented On 1 4:08PM ; [facility] Patient education about low carbohydrate diet Last Documented On 1 4:08PM ; [facility] Patient education about high protein diet Last Documented On 1 4:08PM ; [facility] Discussed concerns about exe rcise : promote physical activity Last Documented On 1 3:21PM ; [facility] Patient education about a pr oper diet Last Documented On 0 1:48PM ; [facility] Patient education about meal planning Last Documented On 0 1:48PM ; [facility] Education about changing eat ing habits Last Documented On 0 1:48PM ; [facility] Patient education about high fiber diet Last Documented On 0 1:48PM ; [facility] Patient education about low fat diet Last Documented On 0 1:48PM ; [facility] Patient education about low cholesterol diet Last Documented On 0 1:48PM ; [facility] Patient education about low carbohydrate diet Last Documented On 0 1:48PM ; [facility] Patient education about high protein diet Last Documented On 0 1:48PM ; [facility] offered active and suppo rtive [...] ~ Last Documented On 0 8:21AM ; [facility] Work Phone: Instructions Includes: Instructions for all patient encounters Education and Decision Aids were provided during visit for: Discussed nutritional needs teach healthy choices including fruits and vegetables Last Documented On 4 8:58AM ; [facility] Patient education about a pr oper diet Last Documented On 4 8:58AM ; [facility] Discussed concerns about exe rcise : promote physical activity Last Documented On 4 8:58AM ; [facility] Discussed nutritional needs teach healthy choices including fruits and vegetables Last Documented On 4 2:02PM ; [facility] Patient education about a pr oper diet Last Documented On 4 2:02PM ; [facility] Patient education about an a sthma action plan Last Documented On 4 2:13PM ; [facility] Discussed concerns about exe rcise : promote physical activity Last Documented On 4 2:02PM ; [facility] Discussed nutritional needs teach healthy choices including fruits and vegetables Last Documented On 4 8:36AM ; [facility] Patient education about a pr oper diet Last Documented On 4 8:36AM ; [facility] Discussed concerns about exe rcise : promote physical activity Last Documented On 4 8:36AM ; [facility] offered active and suppo rtive listening, normalized emotions and feelings, and processed current stressors. ~P discussed coping skills to manage increased anxiety. ~[facility] discussed community resources and supports Last Documented On 4 1:56PM ; [facility] Discussed nutritional needs teach healthy choices including fruits and vegetables Last Documented On 4 2:28PM ; [facility] Patient education about a pr oper diet Last Documented On 4 2:28PM ; [facility] Discussed concerns about exe rcise : promote physical activity Last Documented On 4 2:28PM ; [facility] Not requesting contraception Last Documented On 4 2:28PM ; [facility] Discussed nutritional needs teach healthy choices including fruits and vegetables Last Documented On 3 2:01PM ; [facility] Patient education about a pr oper diet Last Documented On 3 2:01PM ; [facility] Discussed concerns about exe rcise : promote physical activity Last Documented On 3 2:01PM ; [facility] Discussed nutritional needs teach healthy choices including fruits and vegetables Last Documented On 3 10:41AM ; [facility] Patient education about a pr oper diet Last Documented On 3 10:41AM ; [facility] Discussed concerns about exe rcise : promote physical activity Last Documented On 3 10:41AM ; [facility] offered active and suppo rtive listening, normalized emotions and feelings, processed current stressors and explored coping and stress reducing skills. ~P discussed coping skills to manage increased anxiety such as breathing techniques, mindfulness and meditation. [facility] discussed potential benefit in counseling and provided resource list. ~[facility] discussed healthy lifestyle changes to implement Last Documented On 3 3:16PM ; [facility] Discussed nutritional needs teach healthy choices including fruits and vegetables Last Documented On 3 11:08AM ; [facility] Patient education about a pr oper diet Last Documented On 3 11:08AM ; [facility] Discussed concerns about exe rcise : promote physical activity Last Documented On 3 11:08AM ; [facility] Discussed nutritional needs teach healthy choices including fruits and vegetables Last Documented On 2 11:44AM ; [facility] Patient education about a pr oper diet Last Documented On 2 11:44AM ; [facility] Discussed concerns about exe rcise : promote physical activity Last Documented On 2 11:44AM ; [facility] Problems sleeping Last Documented On 2 9:03AM ; [facility] Discussed nutritional needs teach healthy choices including fruits and vegetables Last Documented On 2 8:19AM ; [facility] Patient education about a pr oper diet Last Documented On 2 8:19AM ; [facility] Discussed concerns about exe rcise : promote physical activity Last Documented On 2 8:19AM ; [facility] Discussed nutritional needs teach healthy choices including fruits and vegetables Last Documented On 2 11:56AM ; [facility] Patient education about a pr oper diet Last Documented On 2 11:56AM ; [facility] Discussed concerns about exe rcise : promote physical activity Last Documented On 2 11:56AM ; [facility] Discussed nutritional needs teach healthy choices including fruits and vegetables Last Documented On 2 12:03PM ; [facility] Patient education about a pr oper diet Last Documented On 2 12:03PM ; [facility] Discussed concerns about exe rcise : promote physical activity Last Documented On 2 12:03PM ; [facility] Discussed current self-care methods/coping skills. ~Validated and normalized pt's feelings while assisting patient process recent events. ~Encouraged ongoing counseling. ~Discussed lifestyle changes to address chronic illness. ~Supported patient's personal health goals Last Documented On 2 9:32PM ; [facility] Discussed nutritional needs teach healthy choices including fruits and vegetables Last Documented On 2 2:12PM ; [facility] Patient education about a pr oper diet Last Documented On 2 2:12PM ; [facility] Discussed concerns about exe rcise : promote physical activity Last Documented On 2 2:12PM ; [facility] Discussed nutritional needs teach healthy choices including fruits and vegetables Last Documented On 1 4:05PM ; [facility] Patient education about a pr oper diet Last Documented On 1 4:05PM ; [facility] Discussed concerns about exe rcise : promote physical activity Last Documented On 1 4:05PM ; [facility] Discussed nutritional needs teach healthy choices including fruits and vegetables Last Documented On 1 7:23PM ; [facility] Patient education about a pr oper diet Last Documented On 1 7:23PM ; [facility] Patient education about a pr oper diet Last Documented On 1 7:45PM ; [facility] Patient education about meal planning Last Documented On 1 7:45PM ; [facility] Education about changing eat ing habits Last Documented On 1 7:45PM ; [facility] Patient education about high fiber diet Last Documented On 1 7:45PM ; [facility] Patient education about low fat diet Last Documented On 1 7:45PM ; [facility] Patient education about low cholesterol diet Last Documented On 1 7:45PM ; [facility] Patient education about low carbohydrate diet Last Documented On 1 7:45PM ; [facility] Discussed concerns about exe rcise : promote physical activity Last Documented On 1 7:23PM ; [facility] Discussed nutritional needs teach healthy choices including fruits and vegetables Last Documented On 1 4:54PM ; [facility] Patient education about a pr oper diet Last Documented On 1 4:54PM ; [facility] Patient education about a pr oper diet Last Documented On 1 5:25PM ; [facility] Patient education about meal planning Last Documented On 1 5:25PM ; [facility] Education about changing eat ing habits Last Documented On 1 5:25PM ; [facility] Patient education about high fiber diet Last Documented On 1 5:25PM ; [facility] Patient education about low fat diet Last Documented On 1 5:25PM ; [facility] Patient education about low cholesterol diet Last Documented On 1 5:25PM ; [facility] Patient education about low carbohydrate diet Last Documented On 1 5:25PM ; [facility] Patient education about high protein diet Last Documented On 1 5:25PM ; [facility] Discussed concerns about exe rcise : promote physical activity Last Documented On 1 4:54PM ; [facility] provided active listenin g, support and helped patient process through current symptoms and stressors related to family conflict. [facility] discussed resources for housing and supports with patient. ~P discussed potential benefit of counseling and supports. Patient is willing to reconsider meeting with a provider at another agency than she has in the past as she does not want all of the same services Last Documented On 1 2:40PM ; [facility] Discussed nutritional needs teach healthy choices including fruits and vegetables Last Documented On 1 3:21PM ; [facility] Patient education about a pr oper diet Last Documented On 1 3:21PM ; [facility] Patient education about a pr oper diet Last Documented On 1 4:08PM ; [facility] Patient education about meal planning Last Documented On 1 4:08PM ; [facility] Education about changing eat ing habits Last Documented On 1 4:08PM ; [facility] Patient education about high fiber diet Last Documented On 1 4:08PM ; [facility] Patient education about low fat diet Last Documented On 1 4:08PM ; [facility] Patient education about low cholesterol diet Last Documented On 1 4:08PM ; [facility] Patient education about low carbohydrate diet Last Documented On 1 4:08PM ; [facility] Patient education about high protein diet Last Documented On 1 4:08PM ; [facility] Discussed concerns about exe rcise : promote physical activity Last Documented On 1 3:21PM ; [facility] Patient education about a pr oper diet Last Documented On 0 1:48PM ; [facility] Patient education about meal planning Last Documented On 0 1:48PM ; [facility] Education about changing eat ing habits Last Documented On 0 1:48PM ; [facility] Patient education about high fiber diet Last Documented On 0 1:48PM ; [facility] Patient education about low fat diet Last Documented On 0 1:48PM ; [facility] Patient education about low cholesterol diet Last Documented On 0 1:48PM ; [facility] Patient education about low carbohydrate diet Last Documented On 0 1:48PM ; [facility] Patient education about high protein diet Last Documented On 0 1:48PM ; [facility] offered active and suppo rtive listening, normalized emotions and feelings, processed current stressors and explored coping and stress reducing skills. ~[facility] attempted to discuss sleep hygiene strategies with patient including meditation, reducing caffeine use, increaing physical activity during the day as tolerated, and engaging in calming activities. Patient states that she has tried many things in the past and nothing has been sucessful. ~ Last Documented On 0 8:21AM ; [facility] Work Phone: Instructions Includes: Instructions for all patient encounters Education and Decision Aids were provided during visit for: [facility] offered active and suppo rtive listening, normalized emotions and feelings related to grief and loss, and processed current stressors related to navigating challenges with family members and planning her sisters . ~[facility] discussed importane of coping skills and supports. ~[facility] encouraged patient to follow-up with counseling resources. [facility] discussed grief support groups that patient can reach out to for additional support as she is establishing with counseling Last Documented On 4 12:10PM ; [facility] Discussed nutritional needs teach healthy choices including fruits and vegetables Last Documented On 4 8:58AM ; [facility] Patient education about a pr oper diet Last Documented On 4 8:58AM ; [facility] Discussed concerns about exe rcise : promote physical activity Last Documented On 4 8:58AM ; [facility] Discussed nutritional needs teach healthy choices including fruits and vegetables Last Documented On 4 2:02PM ; [facility] Patient education about a pr oper diet Last Documented On 4 2:02PM ; [facility] Patient education about an a sthma action plan Last Documented On 4 2:13PM ; [facility] Discussed concerns about exe rcise : promote physical activity Last Documented On 4 2:02PM ; [facility] Discussed nutritional needs teach healthy choices including fruits and vegetables Last Documented On 4 8:36AM ; [facility] Patient education about a pr oper diet Last Documented On 4 8:36AM ; [facility] Discussed concerns about exe rcise : promote physical activity Last Documented On 4 8:36AM ; [facility] offered active and suppo rtive listening, normalized emotions and feelings, and processed current stressors. ~[facility] discussed coping skills to manage increased anxiety. ~[facility] discussed community resources and supports Last Documented On 4 1:56PM ; [facility] Discussed nutritional needs teach healthy choices including fruits and vegetables Last Documented On 4 2:28PM ; [facility] Patient education about a pr oper diet Last Documented On 4 2:28PM ; [facility] Discussed concerns about exe rcise : promote physical activity Last Documented On 4 2:28PM ; [facility] Not requesting contraception Last Documented On 4 2:28PM ; [facility] Discussed nutritional needs teach healthy choices including fruits and vegetables Last Documented On 3 2:01PM ; [facility] Patient education about a pr oper diet Last Documented On 3 2:01PM ; [facility] Discussed concerns about exe rcise : promote physical activity Last Documented On 3 2:01PM ; [facility] Discussed nutritional needs teach healthy choices including fruits and vegetables Last Documented On 3 10:41AM ; [facility] Patient education about a pr oper diet Last Documented On 3 10:41AM ; [facility] Discussed concerns about exe rcise : promote physical activity Last Documented On 3 10:41AM ; [facility] offered active and suppo rtive listening, normalized emotions and feelings, processed current stressors and explored coping and stress reducing skills. ~P discussed coping skills to manage increased anxiety such as breathing techniques, mindfulness and meditation. [facility] discussed potential benefit in counseling and provided resource list. ~[facility] discussed healthy lifestyle changes to implement Last Documented On 3 3:16PM ; [facility] Discussed nutritional needs teach healthy choices including fruits and vegetables Last Documented On 3 11:08AM ; [facility] Patient education about a pr oper diet Last Documented On 3 11:08AM ; [facility] Discussed concerns about exe rcise : promote physical activity Last Documented On 3 11:08AM ; [facility] Discussed nutritional needs teach healthy choices including fruits and vegetables Last Documented On 2 11:44AM ; [facility] Patient education about a pr oper diet Last Documented On 2 11:44AM ; [facility] Discussed concerns about exe rcise : promote physical activity Last Documented On 2 11:44AM ; [facility] Problems sleeping Last Documented On 2 9:03AM ; [facility] Discussed nutritional needs teach healthy choices including fruits and vegetables Last Documented On 2 8:19AM ; [facility] Patient education about a pr oper diet Last Documented On 2 8:19AM ; [facility] Discussed concerns about exe rcise : promote physical activity Last Documented On 2 8:19AM ; [facility] Discussed nutritional needs teach healthy choices including fruits and vegetables Last Documented On 2 11:56AM ; [facility] Patient education about a pr oper diet Last Documented On 2 11:56AM ; [facility] Discussed concerns about exe rcise : promote physical activity Last Documented On 2 11:56AM ; [facility] Discussed nutritional needs teach healthy choices including fruits and vegetables Last Documented On 2 12:03PM ; [facility] Patient education about a pr oper diet Last Documented On 2 12:03PM ; [facility] Discussed concerns about exe rcise : promote physical activity Last Documented On 2 12:03PM ; [facility] Discussed current self-care methods/coping skills. ~Validated and normalized pt's feelings while assisting patient process recent events. ~Encouraged ongoing counseling. ~Discussed lifestyle changes to address chronic illness. ~Supported patient's personal health goals Last Documented On 2 9:32PM ; [facility] Discussed nutritional needs teach healthy choices including fruits and vegetables Last Documented On 2 2:12PM ; [facility] Patient education about a pr oper diet Last Documented On 2 2:12PM ; [facility] Discussed concerns about exe rcise : promote physical activity Last Documented On 2 2:12PM ; [facility] Discussed nutritional needs teach healthy choices including fruits and vegetables Last Documented On 1 4:05PM ; [facility] Patient education about a pr oper diet Last Documented On 1 4:05PM ; [facility] Discussed concerns about exe rcise : promote physical activity Last Documented On 1 4:05PM ; [facility] Discussed nutritional needs teach healthy choices including fruits and vegetables Last Documented On 1 7:23PM ; [facility] Patient education about a pr oper diet Last Documented On 1 7:23PM ; [facility] Patient education about a pr oper diet Last Documented On 1 7:45PM ; [facility] Patient education about meal planning Last Documented On 1 7:45PM ; [facility] Education about changing eat ing habits Last Documented On 1 7:45PM ; [facility] Patient education about high fiber diet Last Documented On 1 7:45PM ; [facility] Patient education about low fat diet Last Documented On 1 7:45PM ; [facility] Patient education about low cholesterol diet Last Documented On 1 7:45PM ; [facility] Patient education about low carbohydrate diet Last Documented On 1 7:45PM ; [facility] Discussed concerns about exe rcise : promote physical activity Last Documented On 1 7:23PM ; [facility] Discussed nutritional needs teach healthy choices including fruits and vegetables Last Documented On 1 4:54PM ; [facility] Patient education about a pr oper diet Last Documented On 1 4:54PM ; [facility] Patient education about a pr oper diet Last Documented On 1 5:25PM ; [facility] Patient education about meal planning Last Documented On 1 5:25PM ; [facility] Education about changing eat ing habits Last Documented On 1 5:25PM ; [facility] Patient education about high fiber diet Last Documented On 1 5:25PM ; [facility] Patient education about low fat diet Last Documented On 1 5:25PM ; [facility] Patient education about low cholesterol diet Last Documented On 1 5:25PM ; [facility] Patient education about low carbohydrate diet Last Documented On 1 5:25PM ; [facility] Patient education about high protein diet Last Documented On 1 5:25PM ; [facility] Discussed concerns about exe rcise : promote physical activity Last Documented On 1 4:54PM ; [facility] BHP provided active listenin g, support and helped patient process through current symptoms and stressors related to family conflict. BHP/[facility] discussed resources for housing and supports with patient. ~[facility] discussed potential benefit of counseling and supports. Patient is willing to reconsider meeting with a provider at another agency than she has in the past as she does not want all of the same services Last Documented On 1 2:40PM ; [facility] Discussed nutritional needs teach healthy choices including fruits and vegetables Last Documented On 1 3:21PM ; [facility] Patient education about a pr oper diet Last Documented On 1 3:21PM ; [facility] Patient education about a pr oper diet Last Documented On 1 4:08PM ; [facility] Patient education about meal planning Last Documented On 1 4:08PM ; [facility] Education about changing eat ing habits Last Documented On 1 4:08PM ; [facility] Patient education about high fiber diet Last Documented On 1 4:08PM ; [facility] Patient education about low fat diet Last Documented On 1 4:08PM ; [facility] Patient education about low cholesterol diet Last Documented On 1 4:08PM ; [facility] Patient education about low carbohydrate diet Last Documented On 1 4:08PM ; [facility] Patient education about high protein diet Last Documented On 1 4:08PM ; [facility] Discussed concerns about exe rcise : promote physical activity Last Documented On 1 3:21PM ; [facility] Patient education about a pr oper diet Last Documented On 0 1:48PM ; [facility] Patient education about meal planning Last Documented On 0 1:48PM ; [facility] Education about changing eat ing habits Last Documented On 0 1:48PM ; [facility] Patient education about high fiber diet Last Documented On 0 1:48PM ; [facility] Patient education about low fat diet Last Documented On 0 1:48PM ; [facility] Patient education about low cholesterol diet Last Documented On 0 1:48PM ; [facility] Patient education about low carbohydrate diet Last Documented On 0 1:48PM ; [facility] Patient education about high protein diet Last Documented On 0 1:48PM ; [facility] offered active and suppo rtive listening, normalized emotions and feelings, processed current stressors and explored coping and stress reducing skills. ~[facility] attempted to discuss sleep hygiene strategies with patient including meditation, reducing caffeine use, increaing physical activity during the day as tolerated, and engaging in calming activities. Patient states that she has tried many things in the past and nothing has been sucessful. ~ Last Documented On 0 8:21AM ; [facility] Work Phone: Instructions Includes: Instructions for all patient encounters Education and Decision Aids were provided during visit for: Discussed nutritional needs teach healthy choices including fruits and vegetables Last Documented On 4 4:57PM ; [facility] Patient education about a pr oper diet Last Documented On 4 4:57PM ; [facility] Discussed concerns about exe rcise : promote physical activity Last Documented On 4 4:57PM ; [facility] offered active and suppo rtive listening, normalized emotions and feelings related to grief and loss, and processed current stressors related to navigating challenges with family members and planning her sisters . ~[facility] discussed importane of coping skills and supports. [facility] encouraged patient to follow-up with counseling resources. [facility] discussed grief support groups that patient can reach out to for additional support as she is establishing with counseling Last Documented On 4 12:10PM ; [facility] Discussed nutritional needs teach healthy choices including fruits and vegetables Last Documented On 4 8:58AM ; [facility] Patient education about a pr oper diet Last Documented On 4 8:58AM ; [facility] Discussed concerns about exe rcise : promote physical activity Last Documented On 4 8:58AM ; [facility] Discussed nutritional needs teach healthy choices including fruits and vegetables Last Documented On 4 2:02PM ; [facility] Patient education about a pr oper diet Last Documented On 4 2:02PM ; [facility] Patient education about an a sthma action plan Last Documented On 4 2:13PM ; [facility] Discussed concerns about exe rcise : promote physical activity Last Documented On 4 2:02PM ; [facility] Discussed nutritional needs teach healthy choices including fruits and vegetables Last Documented On 4 8:36AM ; [facility] Patient education about a pr oper diet Last Documented On 4 8:36AM ; [facility] Discussed concerns about exe rcise : promote physical activity Last Documented On 4 8:36AM ; [facility] offered active and suppo rtive listening, normalized emotions and feelings, and processed current stressors. ~[facility] discussed coping skills to manage increased anxiety. ~[facility] discussed community resources and supports Last Documented On 4 1:56PM ; [facility] Discussed nutritional needs teach healthy choices including fruits and vegetables Last Documented On 4 2:28PM ; [facility] Patient education about a pr oper diet Last Documented On 4 2:28PM ; [facility] Discussed concerns about exe rcise : promote physical activity Last Documented On 4 2:28PM ; [facility] Not requesting contraception Last Documented On 4 2:28PM ; [facility] Discussed nutritional needs teach healthy choices including fruits and vegetables Last Documented On 3 2:01PM ; [facility] Patient education about a pr oper diet Last Documented On 3 2:01PM ; [facility] Discussed concerns about exe rcise : promote physical activity Last Documented On 3 2:01PM ; [facility] Discussed nutritional needs teach healthy choices including fruits and vegetables Last Documented On 3 10:41AM ; [facility] Patient education about a pr oper diet Last Documented On 3 10:41AM ; [facility] Discussed concerns about exe rcise : promote physical activity Last Documented On 3 10:41AM ; [facility] offered active and suppo rtive listening, normalized emotions and feelings, processed current stressors and explored coping and stress reducing skills. ~[facility] discussed coping skills to manage increased anxiety such as breathing techniques, mindfulness and meditation. [facility] discussed potential benefit in counseling and provided resource list. ~[facility] discussed healthy lifestyle changes to implement Last Documented On 3 3:16PM ; [facility] Discussed nutritional needs teach healthy choices including fruits and vegetables Last Documented On 3 11:08AM ; [facility] Patient education about a pr oper diet Last Documented On 3 11:08AM ; [facility] Discussed concerns about exe rcise : promote physical activity Last Documented On 3 11:08AM ; [facility] Discussed nutritional needs teach healthy choices including fruits and vegetables Last Documented On 2 11:44AM ; [facility] Patient education about a pr oper diet Last Documented On 2 11:44AM ; [facility] Discussed concerns about exe rcise : promote physical activity Last Documented On 2 11:44AM ; [facility] Problems sleeping Last Documented On 2 9:03AM ; [facility] Discussed nutritional needs teach healthy choices including fruits and vegetables Last Documented On 2 8:19AM ; [facility] Patient education about a pr oper diet Last Documented On 2 8:19AM ; [facility] Discussed concerns about exe rcise : promote physical activity Last Documented On 2 8:19AM ; [facility] Discussed nutritional needs teach healthy choices including fruits and vegetables Last Documented On 2 11:56AM ; [facility] Patient education about a pr oper diet Last Documented On 2 11:56AM ; [facility] Discussed concerns about exe rcise : promote physical activity Last Documented On 2 11:56AM ; [facility] Discussed nutritional needs teach healthy choices including fruits and vegetables Last Documented On 2 12:03PM ; [facility] Patient education about a pr oper diet Last Documented On 2 12:03PM ; [facility] Discussed concerns about exe rcise : promote physical activity Last Documented On 2 12:03PM ; [facility] Discussed current self-care methods/coping skills. ~Validated and normalized pt's feelings while assisting patient process recent events. ~Encouraged ongoing counseling. ~Discussed lifestyle changes to address chronic illness. ~Supported patient's personal health goals Last Documented On 2 9:32PM ; [facility] Discussed nutritional needs teach healthy choices including fruits and vegetables Last Documented On 2 2:12PM ; [facility] Patient education about a pr oper diet Last Documented On 2 2:12PM ; [facility] Discussed concerns about exe rcise : promote physical activity Last Documented On 2 2:12PM ; [facility] Discussed nutritional needs teach healthy choices including fruits and vegetables Last Documented On 1 4:05PM ; [facility] Patient education about a pr oper diet Last Documented On 1 4:05PM ; [facility] Discussed concerns about exe rcise : promote physical activity Last Documented On 1 4:05PM ; [facility] Discussed nutritional needs teach healthy choices including fruits and vegetables Last Documented On 1 7:23PM ; [facility] Patient education about a pr oper diet Last Documented On 1 7:23PM ; [facility] Patient education about a pr oper diet Last Documented On 1 7:45PM ; [facility] Patient education about meal planning Last Documented On 1 7:45PM ; [facility] Education about changing eat ing habits Last Documented On 1 7:45PM ; [facility] Patient education about high fiber diet Last Documented On 1 7:45PM ; [facility] Patient education about low fat diet Last Documented On 1 7:45PM ; [facility] Patient education about low cholesterol diet Last Documented On 1 7:45PM ; [facility] Patient education about low carbohydrate diet Last Documented On 1 7:45PM ; [facility] Discussed concerns about exe rcise : promote physical activity Last Documented On 1 7:23PM ; [facility] Discussed nutritional needs teach healthy choices including fruits and vegetables Last Documented On 1 4:54PM ; [facility] Patient education about a pr oper diet Last Documented On 1 4:54PM ; [facility] Patient education about a pr oper diet Last Documented On 1 5:25PM ; [facility] Patient education about meal planning Last Documented On 1 5:25PM ; [facility] Education about changing eat ing habits Last Documented On 1 5:25PM ; [facility] Patient education about high fiber diet Last Documented On 1 5:25PM ; [facility] Patient education about low fat diet Last Documented On 1 5:25PM ; [facility] Patient education about low cholesterol diet Last Documented On 1 5:25PM ; [facility] Patient education about low carbohydrate diet Last Documented On 1 5:25PM ; [facility] Patient education about high protein diet Last Documented On 1 5:25PM ; [facility] Discussed concerns about exe rcise : promote physical activity Last Documented On 1 4:54PM ; [facility] BHP provided active listenin g, support and helped patient process through current symptoms and stressors related to family conflict. P/[employer]TER discussed resources for housing and supports with patient. ~P discussed potential benefit of counseling and supports. Patient is willing to reconsider meeting with a provider at another agency than she has in the past as she does not want all of the same services Last Documented On 1 2:40PM ; [facility] Discussed nutritional needs teach healthy choices including fruits and vegetables Last Documented On 1 3:21PM ; [facility] Patient education about a pr oper diet Last Documented On 1 3:21PM ; [facility] Patient education about a pr oper diet Last Documented On 1 4:08PM ; [facility] Patient education about meal planning Last Documented On 1 4:08PM ; [facility] Education about changing eat ing habits Last Documented On 1 4:08PM ; [facility] Patient education about high fiber diet Last Documented On 1 4:08PM ; [facility] Patient education about low fat diet Last Documented On 1 4:08PM ; [facility] Patient education about low cholesterol diet Last Documented On 1 4:08PM ; [facility] Patient education about low carbohydrate diet Last Documented On 1 4:08PM ; [facility] Patient education about high protein diet Last Documented On 1 4:08PM ; [facility] Discussed concerns about exe rcise : promote physical activity Last Documented On 1 3:21PM ; [facility] Patient education about a pr oper diet Last Documented On 0 1:48PM ; [facility] Patient education about meal planning Last Documented On 0 1:48PM ; [facility] Education about changing eat ing habits Last Documented On 0 1:48PM ; [facility] Patient education about high fiber diet Last Documented On 0 1:48PM ; [facility] Patient education about low fat diet Last Documented On 0 1:48PM ; [facility] Patient education about low cholesterol diet Last Documented On 0 1:48PM ; [facility] Patient education about low carbohydrate diet Last Documented On 0 1:48PM ; [facility] Patient education about high protein diet Last Documented On 0 1:48PM ; [facility] offered active and suppo rtive listening, normalized emotions and feelings, processed current stressors and explored coping and stress reducing skills. ~[facility] attempted to discuss sleep hygiene strategies with patient including meditation, reducing caffeine use, increaing physical activity during the day as tolerated, and engaging in calming activities. Patient states that she has tried many things in the past and nothing has been sucessful. ~ Last Documented On 0 8:21AM ; [facility] Work Phone: Patient problem outcome Narrative Includes: Evaluations & Outcomes for active Goals [facility]: reason for referral (narrative)No [facility] for [facility]: reason for visit Narrative* Auth/Cert Specialty Diagnoses / Procedures Referred By Contac t Referred To Contact Diagnoses Chronic RLQ pain RLQ PAIN Procedures PA REMOVAL OF OVARY(S) OOPHORECTOMY LAPAROSCOPIC-POSSIBLE LAPAROTOMY Geoff Chu MD [address] [address] [id number] [place] [id number] Referral ID Status Reason Start Date Expiration Date Visits Re quested Visits Authorized [id number] 1 1 [employer] Phone: reason for visit Narrative* Auth/Cert Specialty Diagnoses / Procedures [facility] To Contact [employer] [address] [place] [address] Referral ID Status Reason Start Date Expiration Date Visits Re quested Visits Authorized [id number] 1 1 [employer] Phone: reason for visit Narrative* Treatment Plan and Therapy Plan (Routine) - Open Specialty Diagnoses / Procedures [facility] Referred To Contact Diagnoses Dog bite, initial encounter Nasreen Pennington PA-C [address] [place] [id number]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 will be discharged home today ation. Consultants: Gen surgery DRAINMAN none Complications: none Significant Diagnostic Studies: Ct [...] NEGATIVE NEGATIVE Ketones, Urine NEGATIVE NEGATIVE Specific Russell, UA 1.025 (H) 1.010 - 1.020 Urine [...] # 2.26 1.10 - 3.70 k/uL Absolute Baca # 0.43 0.10 - 1.20 k/uL Absolute [...] # 1.87 1.10 - 3.70 k/uL Absolute Baca # 0.40 0.10 - 1.20 k/uL Absolute [...] # 2.26 1.10 - 3.70 k/uL Absolute Baca # 0.55 0.10 - 1.20 k/uL Absolute Eos # 0.08 0.00 - 0.44 k/uL Basophils Absolute 0.03 0.00 - 0.20 k/uL Absolute Immature Granulocyte 0.04 0.00 - 0.30 k/uL WBC Morphology NOT REPORTED RBC Morphology NOT REPORTED Platelet Estimate NOT REPORTED Discharge Condition: stable Disposition: home Discharge Medications: Mike Sharif Home Medication Instructions LAURA:[id number] Printed on:08/29/20 0274 Medication Information aspirin 81 MG EC tablet [...] Contact Diagnoses Stroke-like symptom Terrence Lyle MD [address] [facility], [address] [place] [address] [facility] Reason Comments Emesis started at 3am Diarrhea [...] Heart Cath Tomorrow Gilmar Richter MD [address] [place] [address] [facility] Status Reason Specialty Diagnoses / Procedures Referre d By Contact Referred To Contact Closed Cardiology Diagnoses Atypical chest pain Acute coronary syndrome (HCC) S/P PTCA (percutaneous transluminal coronary angioplasty) Essential hypertension Coronary artery disease involving [place] coronary artery of [place] heart without angina pectoris Procedures Referral to Cardiac Cath PA CATH PLMT L HRT & ARTS W/NJX & ANGIO IMG S&I PA PRQ TRLUML CORONARY ANGIOPLASTY ONE ART/BRANCH Nat Mora MD [address] [place] [address] [place] [address] Reason Comments Laceration Right hand laceratio n [...] Procedures Stress test (Lexiscan) Nat Mora MD [address] [place] [address] [place] [address] Status Reason Specialty Diagnoses / Procedures Re ferred By Contact Referred To Contact Closed Cardiology Diagnoses Atypical chest pain Palpitations ASHD (arteriosclerotic heart disease) S/P PTCA (percutaneous transluminal coronary angioplasty) Essential hypertension Family history of premature CAD Tobacco abuse counseling Mixed hyperlipidemia MATT (obstructive sleep apnea) Obesity (BMI 30.0-34.9) Procedures Echo 2D w doppler w color complete Nat Mora MD [address] [place] [phone] Status Reason Specialty Diagnoses / Procedures Re ferred By Contact Referred To Contact Closed Cardiology Diagnoses Atypical chest pain Palpitations ASHD (arteriosclerotic heart disease) S/P PTCA (percutaneous transluminal coronary angioplasty) Essential hypertension Family history of premature CAD Tobacco abuse counseling Mixed hyperlipidemia MATT (obstructive sleep apnea) Obesity (BMI 30.0-34.9) Procedures Stress test (Lexiscan) Nat Mora MD [address] [place] [phone] Reason Comments Abdominal Pain Right lower quadrant / right flank pain. 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 Neck Pain left side Specialty Diagnoses / Procedures Referred By Contac t Referred To Contact Diagnoses Other chest pain Chest pain Rl Blanc MD [address] [facility], [place] [address] [employer] [address] [place] [address] Referral ID Status Reason Start Date Expiration Date Visits Re quested Visits Authorized 1 1 Reason Comments Dizziness onset yesterday Back Pain pt states she has pa in between her shoulder blades Reason Comments Numbness right sided face num bness, right arm onset 45 min 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, 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, previous TIA Headache Altered Mental Status pt states new onse t confusion onset Reason Comments Cerebrovascular Accident Specialty Diagnoses / Procedures Referred By Contac t Referred To Contact Diagnoses Acute cerebrovascular accident (CVA) (HCC) Cerebrovascular accident (CVA), unspecified mechanism (HCC) Sailaja Moralez MD [address] [place] [address] [id number] [employer] [address] [place] [address] Referral ID Status Reason Start Date Expiration Date Visits Re quested Visits Authorized 1 1 Specialty Diagnoses / Procedures Referred By Contac t Referred To Contact Cardiology Diagnoses S/P angioplasty with stent Essential hypertension ASHD (arteriosclerotic heart disease) MATT on CPAP Atypical chest pain Mixed hyperlipidemia Dizziness SOB (shortness of breath) Cryptogenic stroke (HCC) Procedures Referral to Cardiac Cath Nat Mora MD [address] [place] [address] [place] [address] Referral ID Status Reason Start Date Expiration Date V isits Requested Visits Authorized [id number] Authorized 10/30/2021 10/30/2022 1 1 Specialty Diagnoses / Procedures Referred By Contac t Referred To Contact Cardiology Diagnoses S/P angioplasty with stent Essential hypertension ASHD (arteriosclerotic heart disease) MATT on CPAP Atypical chest pain Mixed hyperlipidemia Dizziness SOB (shortness of breath) Cryptogenic stroke (HCC) Ischemic chest pain (HCC) Procedures Referral to Cardiac Cath Nat Mora MD [address] [place] [address] Referral ID Status Reason Start Date Expiration Date V isits Requested Visits Authorized [id number] Authorized 10/30/2021 10/30/2022 1 1 Reason Comments Shoulder Pain along with slight ch est pain left breast area, pain entends down left arm Reason Comments Pharyngitis right sided x2 days Cough x2 days Specialty Diagnoses / Procedures Referred By Contac t Referred To Contact Radiology Diagnoses Abdominal pain, generalized Procedures US ABDOMEN LIMITED Ena Fung, BONUS CLERK - TIMBER BUYER [address] [place] [address] Referral ID Status Reason Start Date Expiration Date Visits Re quested Visits Authorized [id number] Closed 01/30/2022 01/30/2023 1 1 Reason Comments [...] SPINE WO CONTRAST Gabo Cohen MD [address] [place] [address] Referral ID Status Reason Start Date Expiration Date Visits Re quested Visits Authorized [id number] Closed 05/07/2022 05/07/2023 1 1 Reason Comments Abdominal Pain RUQ pain Hemoptysis Pt states she had on e episode of hemoptysis this am. Pt on brilinta Reason Comments Chest Pain Intermittent chest p ain started 0930 this am, relief with nitro Specialty Diagnoses / Procedures Referred By Stefano ardon Referred To Contact [facility] Account Developer [address] [place] [id number] [employer] [facility] [address] [place] [address] Referral ID Status Reason Start Date Expiration Date Visits Re quested Visits Authorized [id number] 1 1 Specialty Diagnoses / Procedures Referred By Stefano t Referred To Contact [facility] Account Developer [phone] [facility] [address] [place] [address] Specialty Diagnoses / Procedures Referred By Stefano [...] Doppler W Color Caroline Carrion PA-C [phone] Referral ID Status Reason Start Date Expiration Date V isits Requested Visits Authorized [id number] Pending Review 11/18/2022 11/18/2023 1 1 Reason [...] Stable angina (HCC) Nat Mora MD [address] [place] [address] [facility] Cardiac Rehab [address] [place] [address] Referral ID Status Reason Start Date Expiration Date V isits Requested Visits Authorized [id number] Open Specialty Services Required 12/31/2023 12/30/2024 1 [...] history 12/18 Patient gave verbal consent [facility]2019 Description Last Updated History of coronary angiography was perf ormed 09/04/2020 History of stenosis of coronary artery s tent 09/04/2020 Previous hospitalizations 09/04/2020 Recent immunization for flu 09/04/2020 No recent change in medical history 12/18 Patient gave verbal consent [facility] 10/20/2019 Ordered Prescriptions (unrec ognized section and [...] Graciela Tovar RN)1145 (MAR Hold - Provider: [facility] [employer] - Reason: Unreviewed Transfer Orders)1449 (MAR [...] at 2100 2044 (Not Given - Provider: Mike Zafar RN - Reason: IV Fluid Infusing) [...] Svitlana [employer]oh[employer])1449 (MAR Unhold - Provider: Graciela Tovra RN)1700 (Due - Provider: Graciela Tovar RN)2100 [...] Graciela Tovar RN)1145 (MAR Hold - Provider: [facility] [employer] - Reason: Unreviewed Transfer Orders)1351 (Anesthesia Volume Adjustment - Provider: Brant Wray APRN - FRONT DESK CLERK - Comment: patient arrived with only 500ml remaining in bag. Total of 83ml given during procedure.)1449 ([facility] Unhold - Provider: Graciela Tovar RN)1530 (Stopped [...] (New Bag - Provider: Mike Zafar, PAOLA)1145 ([facility] Hold - Provider: Svitlana [employer]oh[employer] - Reason: Unreviewed Transfer Orders)1449 ([facility] Unhold - Provider: Graciela Tovar RN) PRN Medication Order 01/01/2021 01/02/2021 01/03/2021 0.9 % sodium chloride infusion 25 mL, Intravenous, at 100 mL/hr, PRN, If patient receiving piggyback infusions without ordered maintenance IV fluids or with frequent/long duration piggyback infusions, Starting on Vivian 6/17/21 at 1132, Administer at the same rate as the piggyback being infused. 1145 ([facility] Hold - Provider: [facility] [employer] - Reason: Unreviewed Transfer Orders)1449 ([facility] Unhold - Provider: Graciela Tovar RN) acetaminophen (TYLENOL) suppository 650 mg(Linked Group 1) 650 mg, Rectal, EVERY 6 HOURS PRN, Pain Mild (1-3), Fever, For temp greater than 100.4 F (38 C), Starting on Wed01/02/21 at 1132, Administer if oral route cannot be used. 171 (See Alternative - Provider: Stacy Hugo RN)231 (See Alternative - Provider: Mike Zafar RN) 1145 ([facility] Hold - Provider: [facility] [employer] - Reason: Unreviewed Transfer Orders)1449 ([facility] Unhold - Provider: Graciela Tovar RN) acetaminophen [...] (Given - Provider: Mike Zafar RN) 1145 ([facility] Hold - Provider: Svitlana [employer]oh[employer] - Reason: Unreviewed Transfer Orders)1449 ([facility] Unhold - Provider: Graciela Tovar, PAOLA) dicyclomine (BENTYL) capsule 10 mg 10 mg, Oral, 3 TIMES DAILY PRN, Abdominal Cramping, Starting on Wed01/02/21 at 1945 2003 (Given - Provider: Mike Zafar RN) 1145 ([facility] Hold - Provider: [facility] [employer] - Reason: Unreviewed Transfer Orders)1449 ([facility] Unhold - Provider: Graciela Tovar RN)1506 (Given [...] Svitlana [employer] - Reason: Unreviewed Transfer Orders)1449 ([facility] Unhold - Provider: Graciela Tovar RN) sodium chloride flush 0.9 % injection 10 mL 10 mL, Intravenous, PRN, Line Care, After every IV line use, Starting on Vivian 01/02/21 at 1132 1145 (SEP Hold - Provider: [facility] [employer] - Reason: Unreviewed Transfer Orders)1449 (SEP [...] Rocio Staley RN - Comment: given by retail tire sales manager student wei) Scheduled Medication Order 06/04/2021 06/05/2021 [...] = 1.5cc/kg/hr If no LVEDP obtained, ask dimpling machine operator for fluid rate and volume to be given in recovery. -Fluids will be infused over a minimum of 2 hours. Rate shall not exceed 500 cc/hr. Ask dimpling machine operator for fluid volume total to be infused. -If GFR is less than 30, fluids will be infused over a minimum of 3 hours. -In case of reduced EF, CHF, etc., consult dimpling machine operator for rate and volume to be administered., [...] or break. 0813 (Given - Provider: Nallely Avendaño RN) [...] Provider: Nallely Avendaño RN)2058 (Given - Provider: Sarah Michael RN) 0859 [...] days. 2001 (Given - Provid er: Jose Juráez RN) Scheduled Medication Order 12/17/2021 12/18/2021 12/19/2021 azithromycin (ZITHROMAX) tablet 500 mg (COMPLETED) 500 mg, Oral, ONCE, 1 dose, On Wed12/19/21 at 1815, Antimicrobial Indications: Head and Neck Infection 1816 (Given - Provid er: Michael Stout RN) Scheduled Medication Order 04/29/2022 04/30/2022 [...] = 1.5cc/kg/hr If no LVEDP obtained, ask dimpling machine operator for fluid rate and volume to be given in recovery. -Fluids will be infused over a minimum of 2 hours. Rate shall not exceed 500 cc/hr. Ask dimpling machine operator for fluid volume total to be infused. -If GFR is less than 30, fluids will be infused over a minimum of 3 hours. -In case of reduced EF, CHF, etc., consult dimpling machine operator for rate and volume to be administered., Recovery(Cath) 1630 (Due) PRN Medication Order 08/18/2022 08/19/2022 08/20/2022 0.9 % sodium chloride infusion IntraVENous, at 5-250 mL/hr, PRN, if patient receiving piggyback infusions and maintenance fluids are not ordered OR KVO fluids to protect IV site / prevent frequent line interruptions/ long duration, Starting on [facility] 08/20/22 at 1538, For piggyback infusion, administer [...] frequent line interruptions/ long duration, Starting on [facility] 08/20/22 at 1604, For piggyback infusion, administer [...] on the SEP. 1856 ([facility] Provider: Joyce Pacheco RN) morphine (PF) [...] Care Teams (unrecognized sec tion and content) Penology Professor Relationship Specialty Start Date End Date Ena Fung, BONUS CLERK - TIMBER BUYER [address] [place] [address] PCP - General Family Medicine 09/30/17 Penology Professor Relationship Specialty Start Date End Date Ena Fung, BONUS CLERK - TIMBER BUYER [address] [place] [address] PCP - General Family Medicine 09/30/17 Penology Professor Relationship Specialty Start Date End Date Ena Fung BONUS CLERK - TIMBER BUYER [address] [place] [address] PCP - General Family Medicine 09/30/17 Penology Professor Relationship Specialty Start Date End Date Ena Fung, BONUS CLERK - TIMBER BUYER [address] [facility] [place] [address] PCP - General Family Medicine 09/30/17 Penology Professor Relationship Specialty Start Date End Date Ena Fung, BONUS CLERK - TIMBER BUYER [address] [place] [facility] [place] [address] PCP - General Family Medicine 09/30/17 Penology Professor Relationship Specialty Start Date End Date Ena Fung, BONUS CLERK - TIMBER BUYER [address] [facility] [place] [address] PCP - General Family Medicine 09/30/17 Penology Professor Relationship Specialty Start Date End Date Ena Fung, BONUS CLERK - TIMBER BUYER [address] [facility] [place] [address] PCP - General Family Medicine 09/30/17 Penology Professor Relationship Specialty Start Date End Date Ena Fung, BONUS CLERK - TIMBER BUYER [address] [facility] [place] [address] PCP - General Family Medicine 09/30/17 Penology Professor Relationship Specialty Start Date End Date Ena Fung, BONUS CLERK - TIMBER BUYER [address] [facility] [place] [address] PCP - General Family Medicine 09/30/17 Penology Professor Relationship Specialty Start Date End Date Ena Fung, BONUS CLERK - TIMBER BUYER [address] [facility] [place] [address] PCP - General Family Medicine 09/30/17 Penology Professor Relationship Specialty Start Date End Date Ena Fung, BONUS CLERK - TIMBER BUYER [address] [facility] [place] [address] PCP - General Family Medicine 09/30/17 Penology Professor Relationship Specialty Start Date End Date Ena Fung, BONUS CLERK - TIMBER BUYER [address] [facility] [place] [address] PCP - General Family Medicine 09/30/17 Penology Professor Relationship Specialty Start Date End Date Carlo Fungee Elizabeth, BONUS CLERK - TIMBER BUYER [address] [facility] [place] [address] PCP - General Family Medicine 09/30/17 Penology Professor Relationship Specialty Start Date End Date Kenton Ena Elizabeth, BONUS CLERK - TIMBER BUYER [address] [facility] [place] [address] PCP - General Family Medicine 09/30/17 Penology Professor Relationship Specialty Start Date End Date KentonEna Elizabeth, BONUS CLERK - TIMBER BUYER [address] [facility] [place] [address] PCP - General Family Medicine 09/30/17 Penology Professor Relationship Specialty Start Date End Date Ena Fung Elizabeth, BONUS CLERK - TIMBER BUYER [address] [facility] [place] [address] PCP - General Family Medicine 09/30/17 Penology Professor Relationship Specialty Start Date End Date KentonEna Elizabeth, BONUS CLERK - TIMBER BUYER [address] [facility] [place] [address] PCP - General Family Medicine 09/30/17 Penology Professor Relationship Specialty Start Date End Date Ena Fung Elizabeth, BONUS CLERK - TIMBER BUYER [address] [facility] [place] [address] PCP - General Family Medicine 09/30/17 Penology Professor Relationship Specialty Start Date End Date KentonEna Elizabeth, BONUS CLERK - TIMBER BUYER [address] [facility] [place] [address] PCP - General Family Medicine 09/30/17 Penology Professor Relationship Specialty Start Date End Date Ena Fung, BONUS CLERK - TIMBER BUYER [address] [facility] [place] [address] PCP - General Family Medicine 09/30/17 Penology Professor Relationship Specialty Start Date End Date Kenton Ena M, BONUS CLERK - TIMBER BUYER [address] [place] [address] PCP - General Family Medicine 09/30/17 Penology Professor Relationship Specialty Start Date End Date Kenton Ena Elizabeth, BONUS CLERK - TIMBER BUYER [address] [place] [address] PCP - General Family Medicine 09/30/17 Penology Professor Relationship Specialty Start Date End Date Kenton Ena M, BONUS CLERK - TIMBER BUYER [address] [place] [address] PCP - General Family Medicine 09/30/17 Penology Professor Relationship Specialty Start Date End Date Kenton Ena M, BONUS CLERK - TIMBER BUYER [address] [place] [facility] [place] [address] PCP - General Family Medicine 09/30/17 Penology Professor Relationship Specialty Start Date End Date Kenton Ena M, BONUS CLERK - TIMBER BUYER [address] [place] [address] PCP - General Family Medicine 09/30/17 Penology Professor Relationship Specialty Start Date End Date Kenton Ena M, BONUS CLERK - TIMBER BUYER [address] [place] [address] PCP - General Family Medicine 09/30/17 Penology Professor Relationship Specialty Start Date End Date Ena Fung, BONUS CLERK - TIMBER BUYER [address] [place] [address] PCP - General Family Medicine 09/30/17 Penology Professor Relationship Specialty Start Date End Date Ena Fung, BONUS CLERK - TIMBER BUYER [address] [place] [address] PCP - General Family Medicine 09/30/17 INFORMATION SOURCE (unrecogn ized section and content) DATE CREATED AUTHOR 08/27/2022 [facility] DATE CREATED AUTHOR AUTHOR'S ORGANIZ ATION 09/07/2023 [facility] DATE CREATED AUTHOR AUTHOR'S ORGANIZ ATION 03/21/2024 Mikaela [facility] DATE CREATED AUTHOR AUTHOR'S ORGANIZ ATION 06/13/2024 [facility] FOR RECORDS PERTAINING TO PATIENTS WHO ARE [...] BE BASED ON THE PRIMARY CLINICAL RECORDS. [facility]. provides no warranty or guarantee of the accuracy or completeness of information in this document.
[2024-08-20] MEDS: TRAZODONE HCL 50 MG TABLET 100 MG PO (21:36)
[2024-08-20] MEDS: ATORVASTATIN CALCIUM 40 MG TABLET 80 MG PO (21:36)
[2024-08-20] MEDS: PAROXETINE HCL 20 MG TABLET 40 MG PO (21:36)
[2024-08-20] MEDS: ENOXAPARIN SODIUM 40 MG/0.4 ML SYRINGE SUBQ (21:36)
[2024-08-20] MEDS: GABAPENTIN 300 MG CAPSULE PO (21:37)
[2024-08-20] MEDS: AMLODIPINE BESYLATE 5 MG TABLET 10 MG PO (21:37)
[2024-08-20] MEDS: RANOLAZINE 500 MG TAB.ER.12H 1000 MG PO (21:37)
[2024-08-20] MEDS: OMEPRAZOLE 20 MG CAPSULE.DR 40 MG PO (21:38)
[2024-08-20] MEDS: EZETIMIBE 10 MG TABLET PO (21:38)
[2024-08-20] MEDS: POTASSIUM CHLORIDE/D5-0.9%NACL 1,000 ML 100 ML IV (23:00)
[2024-08-21] VITALS (13 sets, daily range): BP systolic 109–135; BP diastolic 63–84; PULSE 68–89; TEMP 36.3–36.7; O2SAT 92–98
[2024-08-21 05:35] LABS: Basophils Percent Auto 0.7 % (0.2-2.0); Eosinophils Absolute Auto 0.1 10^3/uL (0.0-0.7); Eosinophils Percent Auto 2.1 % (0.9-7.0); Hematocrit 34.9 % (36.0-48.0); Hemoglobin 12.2 g/dL (12.0-16.0); Immature Granulocytes Abs Auto 0.01 10^3/uL (0.00-0.03); Immature Granulocytes Pct Auto 0.2 % (0.0-0.5); Lymphocytes Absolute Auto 2.6 10^3/uL (1.2-3.8); Lymphocytes Percent Auto 45.1 % (20.5-60.0); Mean Corpuscular Volume 85.7 fL (81.0-99.0); Mean Platelet Volume 11.6 fL (9.5-13.5); Monocytes Absolute Auto 0.4 10^3/uL (0.3-0.8); Monocytes Percent Auto 7.2 % (1.7-12.0); Neutrophils Absolute Auto 2.6 10^3/uL (1.4-6.5); Neutrophils Percent Auto 44.7 % (43.0-75.0); Platelet Count 124 10^3/uL (150-450); Red Blood Count 4.07 10^6/uL (4.20-5.40); Red Cell Distribution Width 12.6 % (11.0-15.0); White Blood Count 5.8 10^3/uL (4.0-11.0)
[2024-08-21 05:57] LABS: Alanine Aminotransferase 32 U/L (14-59); Albumin Globulin Ratio 1.1; Albumin Level 3.3 g/dL (3.4-5.0); Alkaline Phosphatase 92 U/L (46-116); Anion Gap 13.1; Aspartate Amino Transferase 26 U/L (15-37); BUN Creatinine Ratio 5.4; Bilirubin Total 0.3 mg/dL (0.2-1.0); Calcium 8.4 mg/dL (8.5-10.1); Carbon Dioxide 26.7 mmol/L (21.0-32.0); Chloride 108 mmol/L (98-107); Estimated GFR (African America >60 (>=60 mL/min/1.73m^2); Estimated GFR (Non-African Ame >60 (>=60 mL/min/1.73m^2); Glucose 123 mg/dL (74-106); Potassium 3.8 mmol/L (3.5-5.1); Sodium 144 mmol/L (136-145); Total Protein 6.3 g/dL (6.4-8.2)
[2024-08-21 08:08] LABS: Influenza Virus A Antigen Negative; Influenza Virus B Antigen Negative; Internal Control Within Normal Limits; SARS-CoV-2 Ag NEGATIVE (NEGATIVE)
[2024-08-21] MEDS: ASPIRIN 325 MG TABLET PO (08:22)
[2024-08-21] MEDS: OMEPRAZOLE 20 MG CAPSULE.DR 40 MG PO (08:22)
[2024-08-21] MEDS: PAROXETINE HCL 20 MG TABLET 40 MG PO (08:22)
[2024-08-21] MEDS: GABAPENTIN 300 MG CAPSULE PO ×2 (08:22→18:10)
[2024-08-21] MEDS: EZETIMIBE 10 MG TABLET PO (08:22)
[2024-08-21] MEDS: ENOXAPARIN SODIUM 40 MG/0.4 ML SYRINGE SUBQ (08:23)
[2024-08-21] MEDS: AMLODIPINE BESYLATE 5 MG TABLET 10 MG PO (08:23)
[2024-08-21] MEDS: RANOLAZINE 500 MG TAB.ER.12H 1000 MG PO (08:23)
--- NOTE | 2024-08-21 08:32 | NM_ITS ---
Patient Name: MIKE SAMPSON MR#: [id number] : 1975 Exam Date: 08/21/2024 Ordering Doctor: LEESA SAUL . RADIOLOGY REPORT PROCEDURE: NM PABLO PERF SPECT REST STR COMPARISON: None. INDICATIONS: history of 2 prior stents, chest pain, HLD, HTN TECHNIQUE: Exam Description: Stress/Rest one day protocol gated SPECT Rest Imagin.3 mCi Tc-99m Cardiolite IV on 08/21/2024 Stress Imaging 30.7 mCi Tc-99m Cardiolite IV on 08/21/2024 Exercise Protocol: 0.4 mg Lexiscan given IV Heart Rate (bpm): Rest: 71 Max: 76 PMHR: 44 Blood Pressure: Rest: 120/72 Max: 120/72 Symptoms: Rest and peak stress ECG findings were pending and the exercise portion of the study was pending per attending physician Dr. ANN . For more details please see separate cardiac stress test report. FINDINGS: QUALITY OF STUDY: Excellent. PERFUSION DEFECT: None. LOCATION: N/A SIZE: N/A. SEVERITY: N/A. TYPE: N/A. WALL MOTION: Normal. LV SIZE: Normal. 82 mL. TID / TCD: None; 1.0 LVEF: Normal. Calculated EF 66%. SUMMARY: Myocardial perfusion imaging study is NORMAL. CONCLUSION: 1. Normal nuclear medicine myocardial perfusion scan. Dictated by: Regan Hughes M.D. on 08/21/2024 at 16:16 Approved by: Regan Hughes M.D. on 08/21/2024 at 16:19
--- NOTE | 2024-08-21 08:34 | P.HP_ITS ---
HPI H&P: HPI History of Present Illness Chief complaint: CHEST PAIN,HYPOKALEMIA Narrative: Patient is a 48 y.o White female with past medical history of CAD s/p 2 cardiac stents in 2019, HLD, HTN, anxiety and depression, GERD, insomnia, and postmenopausal syndrome who presented to the ER last night after lifting some cases of pop at work when she developed chest pain. She follows regularly with [facility]. Last stress test and heart cath about 1 year ago. Had stents placed at [facility]. She occasionally will have some chest irritation from her loop recorder? and GERD. She says her chest pain started after exertion, mid sternal, no radiation and no shortness of breath. She hates the way Nitro makes her feel, so she does not take it. BP has been controlled at home. No shortness of breath. She denies chest pain at bediside today. ER findings: WBC's 5.8, Hb 12.2, K 3.0, Cr 0.74, trop x 2 negative. Chest X-ray showed no acute disease. EKG showed no ST elevation or depression Opioid HPI Opioid Management Most Recent Pain and Opioid Data: Last Pain Scale 1 08/20/24 22:00 08/20/24 Last Pain Assessment 08/21/24 13:00 Last MAR Pain Assessment 08/20/24 17:17 Last ORT Total Score 2 08/20/24 19:54 08/20/24 Last ORT Risk Category Low Risk 08/20/24 19:54 08/20/24 Review of Systems ROS Narrative ROS: a complete review of systems were reviewed with patient and are positive as below or listed in History of Chief Complaint. General: no fever, chills, night sweats Head: no headache, trauma, visual changes, nausea or vomiting Skin: no reported rashes, itching or sores Eyes: no blurriness of vision Ears: no reported hearing loss, vertigo, earache, or tinnitus Throat: no sore throat, hoarseness, swelling of neck, or tongue pain Heart: chest pain Lungs: no shortness of breath or cough GI: no diarrhea or vomiting/nausea Urinary: no urinary urgency, frequency or pain Neuro: no numbness or tingling HEM: no bleeding issues or bruising ENDO: no thyroid problems Psych:anxiety and depression [facility] Medical History (Updated 08/21/24 @ 08:39 by Lluvia Umaña DO) Primary hypertension ?I10 - Essential (primary) hypertension (ICD-10) Insomnia ?G47.00 - Insomnia, unspecified (ICD-10) Anxiety ?F41.9 - Anxiety disorder, unspecified (ICD-10) Injury, crush, finger ?S67.10XA - Crushing injury of unspecified finger(s), initial encounter (ICD- 10) Finger injury ?S69.90XA - Unspecified injury of unspecified wrist, hand and finger(s), initial encounter (ICD-10) Encounter for colonoscopy following colon polyp removal ?Z12.11 - Encounter for screening for malignant neoplasm of colon (ICD-10) ?Z86.0100 - Personal history of colon polyps, unspecified (ICD-10) Implantable loop recorder present ?Z95.818 - Presence of other cardiac implants and grafts (ICD-10) Former smoker, stopped smoking in distant past ?Z87.891 - Personal history of nicotine dependence (ICD-10) CAD (coronary artery disease) ?I25.10 - Atherosclerotic heart disease of [place] coronary artery without angina pectoris (ICD-10) Heart disease ?I51.9 - Heart disease, unspecified (ICD-10) Surgical History H/O colonoscopy ?Z98.890 - Other specified postprocedural states (ICD-10) History of esophagogastroduodenoscopy (EGD) ?Z98.890 - Other specified postprocedural states (ICD-10) History of hernia repair ?Z98.890 - Other specified postprocedural states (ICD-10) ?Z87.19 - Personal history of other diseases of the digestive system (ICD-10) H/O heart artery stent ?Z95.5 - Presence of coronary angioplasty implant and graft (ICD-10) Hx of cholecystectomy ?Z90.49 - Acquired absence of other specified parts of digestive tract (ICD- 10) Hx of spinal fusion ?Z98.1 - Arthrodesis status (ICD-10) Hx of hysterectomy ?Z90.710 - Acquired absence of both cervix and uterus (ICD-10) Social History Within the past year, how often did you have a drink containing alcohol: never Score interpretation: A score less than 3 is consistent with normal alcohol consumption. Smoking status: Former smoker Second hand tobacco smoke exposure: No Non-prescribed substance use: denies use Known occupational exposures/hazards: No Highest level of school completed/degree received: GED or equivalent Do you want help with school or training: No Are you now , , , , never or living with a partner: In a typical week, how many times do you talk on the telephone with family, friends, or neighbors: 3 or more times per week Little interest or pleasure in doing things: not at all Feeling down, depressed, or hopeless: not at all Feel stressed/tense/nervous/anxious/difficulty sleeping: to some extent Life stressors: recent of family or friend Life stressor details: of sister (was like her mom) in January 2024 Due to disability, difficulty making decisions: No Do you think of yourself as: straight/heterosexual Gender Identity: female Meds Home Medications and Allergies Home Medications ?Medication ?Instructions ?Recorded ?Confirmed ?Type amlodipine 10 mg tablet 10 mg PO QDAY 05/09/24 08/20/24 History atorvastatin 80 mg tablet 80 mg PO .qhs 05/09/24 08/20/24 History cholecalciferol (vitamin D3) 10 10 mcg PO QDAY 05/09/24 08/20/24 History mcg (400 unit) capsule (Vitamin D3) ezetimibe 10 mg tablet 10 mg PO QDAY 05/09/24 05/09/24 History gabapentin 300 mg capsule 300 mg PO Q12H 05/09/24 08/20/24 History hydroxyzine pamoate 25 mg capsule 25 mg PO Q6H PRN anxiety 05/09/24 08/20/24 History pantoprazole 40 mg tablet,delayed 40 mg PO Q12H 05/09/24 08/20/24 History release paroxetine HCl 40 mg tablet 40 mg PO QDAY 05/09/24 08/20/24 History ranolazine 1,000 mg 1,000 mg PO Q12H 05/09/24 05/09/24 History tablet,extended release,12 hr ticagrelor 60 mg tablet (Brilinta) 60 mg PO Q12H 05/09/24 08/20/24 History trazodone 100 mg tablet 100 mg PO .qhs 05/09/24 08/20/24 History cyclobenzaprine 10 mg tablet 5 mg PO Q8H PRN spasms 08/20/24 08/21/24 History estradiol 1 mg tablet 1.5 mg PO DAILY 08/20/24 History Allergies Allergy/AdvReac Type Severity Reaction Status Date / Time clopidogrel (From Plavix) AdvReac Severe crystalized Verified 08/20/24 16:47 in brain Exam Narrative Exam Narrative: General: Patient is alert, and oriented to person, place and time with normal affect, proper hygiene Skin: no visible rashes, or ulcers Head: atraumatic, acephalic Eyes: PERRLA, no nystagmus present, conjunctiva clear, no scleral icterus Ears: normal gross auditory acuity Neck: no masses palpated, normal thyroid, no JVD or audible carotid bruits Heart: Normal rate and rhythm, no murmurs/rubs/gallops Lungs: no audible wheezes, crackles and normal breath sounds all lung fung Abdomen: Normal audible bowel sounds, no distension, No palpable masses, no organomegaly, no rebound/guarding/ or rigidity Musculoskeletal: no swelling bilateral lower extremities Neuro: CN II-X grossly intact Constitutional Vital Signs, click to edit/add: Last Vital Signs Temp 98.0 F 08/21/24 08:00 Pulse 82 08/21/24 08:00 Resp 18 08/21/24 08:00 BP 135/84 08/21/24 08:00 Pulse Ox 97 08/21/24 08:00 O2 Del Method Room Air 08/21/24 08:00 Results Labs Labs: Short CBC 08/20/24 08/21/24 Range/Units 16:51 05:21 WBC 8.9 5.8 (4.0-11.0) 10^3/uL Hgb 14.0 12.2 (12.0-16.0) g/dL Hct 39.1 34.9 L (36.0-48.0) % Plt Count 317 124 L (150-450) 10^3/uL BMP 08/20/24 08/21/24 16:51 05:21 Sodium 141 144 Potassium 3.0 L 3.8 Chloride 101 108 H Carbon Dioxide 28.1 26.7 BUN 4.0 L 4.0 L Creatinine 0.77 0.74 Glucose 113 H 123 H Calcium 9.0 8.4 L Liver Function 08/20/24 08/21/24 Range/Units 16:51 05:21 Total Bilirubin 0.4 0.3 (0.2-1.0) mg/dL AST 23 26 (15-37) U/L ALT 41 32 (14-59) U/L Alkaline Phosphatase 117 H 92 (46-116) U/L Albumin 4.1 3.3 L (3.4-5.0) g/dL Assessment and Plan Assessment and Plan (1) Chest pain: Assessment and Plan: Patient with history of cardiac stents, HLD, HTN. Last stress and cath >1 year ago. Will get Lexiscan stress test today. CXR normal, Troponins have been negative x 3. Check lipids, TSH, ha1c. Qualifiers: Chest pain type: unspecified Qualified Code(s): R07.9 - Chest pain, unspecified (2) Hypokalemia: Assessment and Plan: replace oral and IV if needed. Came up nicely with oral dose from 3.0 to 3.8 (3) CAD (coronary artery disease): Assessment and Plan: recheck lipids, continue atorvastatin, Brilinta and aspirin Qualifiers: Associated angina: with stable angina Coronary Disease-Associated Artery/Lesion type: [place] artery [place] vs. transplanted heart: [place] heart Qualified Code(s): I25.118 - Atherosclerotic heart disease of [place] coronary artery with other forms of angina pectoris (4) H/O heart artery stent: Assessment and Plan: lexiscan stress test (5) Primary hypertension: Assessment and Plan: stable on the amlodipine (6) Anxiety: Assessment and Plan: continue paxil (7) Insomnia: Assessment and Plan: continue trazodone Qualifiers: Insomnia type: primary Qualified Code(s): F51.01 - Primary insomnia (8) Former smoker, stopped smoking in distant past: (9) Implantable loop recorder present: Plan Patient is a full code SCDs for DVT prophylaxis Patient is observation status, Stress test today.
[2024-08-21 08:52] LABS: Estimated Average Glucose 108 mg/dL; Glycohemoglobin A1C 5.4 % (4.5-6.2)
[2024-08-21 09:02] LABS: Chol HDL Ratio 5.1; Cholesterol 177 mg/dL (<=200); HDL Cholesterol 35 mg/dL (40-60); TSH W/ REFLEX FT4 1.819 uIU/mL (0.358-3.740); Triglycerides 294 mg/dL (<=150); Troponin I High Sensitivity 4.8 pg/mL (4.0-51.3); VLDL CHOLESTEROL 58.8 mg/dL
[2024-08-21] MEDS: POTASSIUM CHLORIDE/D5-0.9%NACL 1,000 ML 100 ML IV (09:10)
--- NOTE | 2024-08-21 11:59 | CM.NOTE ---
Rounds made with Dr. Umaña, pt will have stress test today. Possible discharge this afternoon is stress test is negative.
[2024-08-21] MEDS: REGADENOSON 0.4 MG/5 ML SYRINGE IV (13:03)
--- NOTE | 2024-08-21 13:04 | PC.NURSE ---
Nursing Note Cardiac Stress Test Reviewed: Medication, allergies and patient history reviewed. Stress Test: [x ] Patient tolerated stress test well. [ ] Patient unable to tolerate walking on treadmill. Switched to Lexiscan stress test. [x ] No chest pain noted per patient [ ] Chest pain that resolved prior to leaving stress lab. [x ] No dyspnea noted. [ ] Dyspnea that resolved prior to leaving stress lab. [x ] Patient left stress lab asymptomatic and hemodynamically stable. [ ] Patient taken to the Emergency Room due to non-resolving symptoms following stress test. [ ] Patient achieved target heart rate. [ ] Patient unable to achieve target heart rate. [ ] Aminophylline administered as reversal agent to Lexiscan (Regadenoson). [ ] Nitro administered. Nursing Comments:No issues noted. Pt had Lexiscan done and tolerated well. Pt was given Mountain Dew per her request after test due to having a headache and some nausea after test. Pt was taken back to [facility] floor by tech.
--- NOTE | 2024-08-21 15:00 | PCN_ITS ---
CARDIAC STRESS TEST ? Requesting Physician:? Dr. Umaña Procedure Date:? 08/21/2024 ? PERFORMING PROVIDER:? Sabrina Adkins M.D. ? INDICATIONS:? Chest pain, shortness of breath, palpitations. ? STRESS TEST PROTOCOL:? Lexiscan myocardial perfusion imaging. ? Resting heart rate:? 71 Max heart rate:? 246 Resting blood pressure:? 130/72 Maximum blood pressure:? 120/72 ? CONCLUSION: 1.? Resting EKG demonstrates normal sinus rhythm with low voltage QRS, prolonged QC interval. 2.? Definite EKG changes meeting the criteria for ischemia post Lexiscan infusion. 3.? Please refer to separately interpreted and reported nuclear myocardial perfusion imaging.?? MTDD
[2024-08-21] MEDS: NITROGLYCERIN 0.1 MG/HR PATCH.TD24 1 PATCH TD (18:10)
--- NOTE | 2024-08-22 07:40 | P.DS_ITS ---
DS: Providers Provider Date of admission: 08/20/24 18:54 Primary care physician: Lovely Wray NP Attending physician on admission: Lluvia Umaña Discharging clinician: Lluvia Umaña DS: Diagnosis Discharge Diagnosis (1) Chest pain: Qualifiers: Chest pain type: unspecified Qualified Code(s): R07.9 - Chest pain, unspecified (2) Hypokalemia: (3) CAD (coronary artery disease): Qualifiers: Coronary Disease-Associated Artery/Lesion type: [place] artery [place] vs. transplanted heart: [place] heart Associated angina: with stable angina Qualified Code(s): I25.118 - Atherosclerotic heart disease of [place] coronary artery with other forms of angina pectoris (4) H/O heart artery stent: (5) Primary hypertension: (6) Anxiety: (7) Insomnia: Qualifiers: Insomnia type: primary Qualified Code(s): F51.01 - Primary insomnia (8) Former smoker, stopped smoking in distant past: (9) Implantable loop recorder present: DS: Summary Hospital Course Hospital Course: patient was admitted on telemetry. At the time of admission exam, chest pain had resolved. Given patient's many risk factors, she received a Lexiscan stress test yesterday that was normal. Troponin's were also normal x 3. At the time of discharge patient's chest pain had resolved. I have sent Willie Davis 10MEQ to be taken daily for 14 days until she has follow up with Cardiology or her PCP. 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 I have provided patient with work note for 08/20-and return on 08/23/24. She may return to the ER with any worsening signs or symptoms. Status at Discharge Functional status at discharge: independent ambulation Overall status at discharge: patient is back to baseline Time Spent with Patient Time attestation: Total time spent providing and/or coordinating discharge services: Time spent: greater than 30 minutes Exam Narrative Exam Narrative: no change in discharge exam from H&P dated 08/21/24 Constitutional Vital Signs, click to edit/add: Last Vital Signs Temp 97.8 F 08/21/24 16:00 Pulse 68 08/21/24 18:00 Resp 18 08/21/24 16:00 BP 114/72 08/21/24 16:00 Pulse Ox 98 08/21/24 16:00 O2 Del Method Room Air 08/21/24 16:00 DS: Data Data Completed and Pending Labs on day of discharge: Labs from last 24 hours 08/21/24 08/21/24 07:48 05:21 Estimat Average Glucose 108 Hemoglobin A1c 5.4 Troponin I High Sens 4.8 Triglycerides 294 H Cholesterol 177 LDL Cholesterol, Calc 84.0 VLDL Cholesterol 58.8 HDL Cholesterol 35 L Cholesterol/HDL Ratio 5.1 TSH & Free T4 Interp 1.819 Influenza Type A Ag Negative Influenza Type B Ag Negative SARS-CoV-2 Ag (CV2AG) Negative Discharge Plan Discharge Disposition: Home, Self-Care Condition: Good Discharge Medications: New potassium chloride [Klor-Con 10] 10 mEq tablet extended release 10 meq PO DAILY 14 Days Qty: 14 0RF Continued amlodipine 10 mg tablet 10 mg PO QDAY atorvastatin 80 mg tablet 80 mg PO .qhs cholecalciferol (vitamin D3) [Vitamin D3] 10 mcg (400 unit) capsule 10 mcg PO QDAY ezetimibe 10 mg tablet 10 mg PO QDAY gabapentin 300 mg capsule 300 mg PO Q12H hydroxyzine pamoate 25 mg capsule 25 mg PO Q6H PRN (Reason: anxiety) pantoprazole 40 mg tablet,delayed release (DR/EC) 40 mg PO Q12H paroxetine HCl 40 mg tablet 40 mg PO QDAY ranolazine 1,000 mg tablet extended release 12 hr 1,000 mg PO Q12H Brilinta 60 mg tablet 60 mg PO Q12H trazodone 100 mg tablet 100 mg PO .qhs cyclobenzaprine 10 mg tablet 5 mg PO Q8H PRN (Reason: spasms) estradiol 1 mg tablet 1.5 mg PO DAILY Activity: increase activity as tolerated and resume usual activities as tolerated Diet: advance to your usual diet Print Language: Nigerien Patient Instructions: Chest Pain (DC) Forms: Portal Instructions Follow Up Appointments: Please Call [facility] tomorrow to make follow up appointment Discharge Date/Time: 08/21/24 18:45
--- NOTE | 2024-08-22 14:02 | CM.DCFOLLOWU ---
2/4 1st attempt. No answer
--- NOTE | 2024-08-24 15:31 | CM.DCFOLLOWU ---
08/24/24, 2nd attempt no answer
--- NOTE | 2024-08-25 13:03 | CM.DCFOLLOWU ---
3rd attempt. No answer
== END 2024-08-21 18:45 | disposition home or self-care (01) ==
LOC: ER 18:56 → MS 19:53
PROVIDERS: Personal Emergency Response Attendant; Registered Nurse; Admitting Provider Family Medicine; Emergency Provider Emergency Medicine; PCP Nurse Practitioner Family; Visit Provider Family Medicine
DX: R07.9 Chest pain, unspecified (principal); I25.118 Atherosclerotic heart disease of native coronary artery with other forms of angina pectoris; E87.6 Hypokalemia; Z95.5 Presence of coronary angioplasty implant and graft; I10 Essential (primary) hypertension; Z79.899 Other long term (current) drug therapy; Z90.49 Acquired absence of other specified parts of digestive tract; Z98.1 Arthrodesis status; Z90.710 Acquired absence of both cervix and uterus; E78.5 Hyperlipidemia, unspecified; F41.9 Anxiety disorder, unspecified; F32.A Depression, unspecified; G47.00 Insomnia, unspecified; Z95.818 Presence of other cardiac implants and grafts; Z87.891 Personal history of nicotine dependence; Z63.4 Disappearance and death of family member
CPT/HCPCS: 36415; 71045; 78452; 80053; 80061; 81001; 83036; 83690; 83735; 84443; 84484; 84703; 85025; 85610; 85730; 87804; 87811; 93005; 93017; 94761; 96365; 96366; 96372; 96375; 99285; A9500; G0378; J1650; J2270; J2405; J2785

== ENCOUNTER 2024-09-14 03:45 | Emergency (ER) | payer OTHER, SELFPAY ==
[2024-09-14] VITALS (19 sets, daily range): BP systolic 164–182; BP diastolic 78–99; PULSE 64–79; TEMP 37.1; O2SAT 94–100; BMI 32.8
--- OUTSIDE RECORDS SUMMARY | 2024-09-14 03:54 | XMS_ITS | CCD ---
Author Organization [facility] Care Team Providers Care Framing Mill Supervisor Name Role Phone Ena Fung Unavailable Unavailable Kenton, Ena Unavailable Unavailable Kenton Ena Unavailable Unavailable Ahmad Unavailable Unavailable Ena Fung Primary Care Provider [phone] Ena Fung Primary Care Provider [phone] Ena Fung Unavailable Ena Fung Primary Care Provider Ena Fung Primary Care Provider Kenton CHOU - SHAMIR, Ena M Primary Care Provider Kenton CHOU - SHAMIR, Ena M Primary Care Provider Ena Fung CNP Primary Care Provider Ena Fung CNP Primary Care Provider Kenton CHOU - SHAMIR, Ena M Primary Care Provider Kenton CHOU - SHAMIR, Ena M Primary Care Provider Kenton CHOU - SHAMIR, Ena M Primary Care Provider Kenton CHOU - SHAMIR, Ena M Primary Care Provider ENA FUNG Primary Care Unavailable SAILAJA MORALEZ Attending Unavailable SAILAJA MORALEZ Consulting Unavailable SAILAJA MORALEZ Admitting Unavailable JANICE FUNES Consulting Unavailable Kenton [place] Ena Primary Care Provider Kenton CHOU - SHAMIR, Ena M Primary Care Provider Kenton CHOU - SHAMIR, Ena M Primary Care Provider Kenton CLINICAL EDUCATION CONSULTANT-ASPHALT 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, Ena Hillary Primary Care Eve vailable Link CLINICAL EDUCATION CONSULTANT-ASPHALT 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, Mell Daniels Attending Unava bernie Lucero MD, Asim De Oliveira Attending Unavailable Kenton CLINICAL EDUCATION CONSULTANT-ASPHALT 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, Ena Hillary Primary Care Eve vailable KENTON, [...] Primary Care Unavailable CAROLINE CARRION Referring Unavailable LAUDICKCAROLINE Referring Unavailable KENTON, ENA M Primary Care Unavailable KENTON, ENA M Primary Care Unavailable LISA BLACKMAN Attending Unavailable KENTON, ENA M Primary Care Unavailable KENTON, ENA M Primary Care Unavailable ROBERT BARBOSA Referring Unavailable KENTON, ENA M Primary Care Unavailable Unavailable Primary Care Provider Unavailabl e Allergies Allergy Classification Reported Allergen(s) Allergy Type Date of Onset Reaction(s) Facility Cephalosporins (antibiotic) (12 sources) Cephalexin; Translations: [Keflex] Drug Allergy 4 Hives, rash, Skin Rashes / Eruption of skin [facility] Platelet Inhibitors (P2Y12, not including aspirin) (2 sources) clopidogrel; Translations: [Plavix] Drug Allergy 2 [facility] Serotonin Reuptake Inhibitors (SSRIs) (1 source) Citalopram; Translations: [CeleXA 10 MG Oral Tablet] Drug Allergy 4 Suicidal thoughts [facility] (20 sources) cephalexin; Translations: [Keflex] Drug Allergy 4 rash, Skin Rashes / Eruption of skin [facility] (20 sources) -No Environmental Allergies Allergy to substance (disorder) [facility] (6 sources) -No Known Food Allergies Allergy to substance (disorder) [facility] Work Phone: (20 sources) Cephalosporins (Antibiotic); Translations: [CEPHALOSPORINS] Propensity to adverse reactions to drug 4 Hives [place], [place] (20 sources) Cephalexin Drug Allergy 0 [place] (20 sources) clopidogrel; Translations: [Plavix] Drug Allergy 2 [facility] (20 sources) clopidogrel; Translations: [CLOPIDOGREL] Drug Allergy 2 [facility] (2 sources) Citalopram; Translations: [CeleXA 10 MG Oral Tablet] Drug Allergy 4 Suicidal thoughts [facility] Medications Current Medications Medication Drug Class(es) Dates Sig (Normalized) Sig (Original) *CPAP AND SUPPLIES Miscellaneous (9 sources) Start: 02-01-2023 *CPAP AND SUPPLIES Miscellaneous 02/01/2023 Provider: *Decorator Hand Miscellaneous (not specified) (18 sources) Start: 11-26-2021 *Decorator Hand Miscellaneous (not specified) 11/26/2021 Provider: Ena Fung [...] ORCO) 5-325 MG per tablet 1 tablet [id number] actuat albuterol 0.09 mg/actuat metered dose [...] MG tablet Indications: Coronary artery disease involving [place] coronary artery of [place] heart without angina pectoris , S/P PTCA (percutaneous transluminal coronary angioplasty) , Essential hypertension , Mixed hyperlipidemia Take 1 tablet by mouth daily 90 tablet 3 02/23/2019 06/08/2019 Discontinued (Therapy completed) Start: 08-13-2018 End: 06-17-2020 AMLODIPINE 2.5 mg [facility] 08/13 - 06/17/2020 Provider: Start: 08-13-2018 End: 08-13-2018 AMLODIPINE 2.5 mg [facility] 08/13 - 08/13/2018 Provider: take 1 tablet [...] 80 mg, Oral, DAILY, First dose on 10/07/21 at 0900 Start: 06-23-2021 End: 01-27-2024 Atorvastatin Calcium 80 MG O ral Tablet 01/27/2024 Provider: Ena Fung CNP Start: 01-02-2021 take 80 mg by mouth once daily 80 mg, Oral, NIGHTLY, First dose on Vivian 01/02/21 at 2100 Start: 08-28-2020 take 80 mg by mouth once daily 80 mg, Oral, DAILY, First dose on 08/28/20 at 2000 Start: 02-20-2020 take 1 tablet [...] 04-26-2018 End: 06-17-2020 ATORVASTATIN 80 MG MISC 0 03/2018 - 06/17/2020 Provider: Start: 04-26-2018 End: 04-26-2018 ATORVASTATIN 80 MG MISC 0 03/2018 - 04/26/2018 Provider: Start: 02-04-2018 End: 06-17-2020 ATORVASTATIN 80 MG MISC 01/17 - 06/17/2020 Provider: Start: 02-04-2018 End: 02-04-2018 [...] Start: 10-07-2021 take 1000 [IU] by mo ut once daily 1,000 Units, Oral, DAILY, First [...] 30 tablet 12 02/22/2020 Active estrogens, esterified ([facility]) 1.25 mg / methylTESTOSTERone 2.5 mg oral [...] Start: 01-19-2023 take 1 tablet by troy once daily isosorbide mononitrate (IMDUR) 30 MG [...] 30 mL, Oral, DAILY PRN, Constipation, Starting Wed12/29/19 at 2022, Recovery(Cath) Start: 04-20-2019 magnesium hydr [...] tablets by mouth twice daily, then take [id number] tablet by mouth ticagrelor (BRILINTA) 90 MG TABS tablet Take 90 mg by mouth 2 times daily Samples give 2 boxes Lot [id number] Exp: 02/06 0 10/10/2019 Discontinued (Stop Taking [...] (400 UNIT) Oral Capsule, conventional 01/27/2024 Provider: Ean Fung CNP Completed/Discontinued Medications Medication Drug Class(es) [...] greater than 100.5 F (38 C), Starting [facility] 04/20/19 at 0445 Maximum dose of [...] by mouth every six hours as needed qzrmbeudze-yflerbmjwmoza-qozd 50-325-40 mg oral tablet 06/23/2018 take 1 [...] MG OR [facility] 08/13/2018 - 06/17/2020 Provider: Conversion Provider azithromycin 500 mg oral tablet (20 [...] 11/19/2022 - 11/19/2022 Provider: Ena Fung CNP OCFSNMCSUB-IXFTLKUZFAKPP-AHH F 50-325-40 mg MISC (8 sources) Start: 06-23-2018 End: 06-23-2018 DNXLVVSUBH-EBZGDRQNOAUEL-NAM F 50-325-40 mg MISC 06/23/2018 - 06/23/2018 Provider: OJDYQWZZQN-SDIWGNNNJGKPC-XST F 50-325-40 mg MISC (20 sources) Start: 06-23-2018 End: 06-17-2020 XIJXHNXQAI-AUDVIETROKQQG-WCN F 50-325-40 mg MISC 06/23/2018 - 06/17/2020 Provider: Start: 06-23-2018 End: 06-23-2018 GTCEZCZOIY-VOAWFKTLINYPW-WXM F 50-325-40 mg MISC 06/23/2018 - 06/23/2018 Provider: CALCIUM 600 600 mg calcium (1,500 MG) MISC (8 sources) Start: 03-23-2017 End: 03-23-2017 CALCIUM 600 600 mg calcium (1,500 MG) MISC 03/23/2017 - 03/23/2017 Provider: CALCIUM 600 600 mg calcium (1,500 MG) MISC (20 sources) Start: 03-23-2017 End: 06-17-2020 CALCIUM 600 600 mg calcium (1,500 MG) MISC 03/23/2017 - 06/17/2020 Provider: Start: 03-23-2017 End: 03-23-2017 CALCIUM 600 600 mg calcium ( 1,500 MG) MISC 03/23/2017 - 03/23/2017 Provider: calcium carbonate 1500 [...] Start: 04-26-2018 take 1 capsule by mo [facility] three times daily as needed for pain [...] Start: 10-05-2017 take 1 capsule by mo uth twice daily Fish Oil Concentrate 1,000 mg [...] % injection 75 mL Start: 10-19-2021 End: 10-19-2021 iopamidol (ISOVUE-370) 76 % injection 75 mL [...] Essential hypertension , Coronary artery disease involving [place] coronary artery of [place] heart without angina pectoris , S/P PTCA (percutaneous transluminal coronary angioplasty) Take 1 tablet by mouth once daily 90 tablet 3 09/14/2022 Active Start: 08-12-2021 take 1 tablet by troy th once daily metoprolol succinate (TOPROL XL) 50 MG extended release tablet Indications: Dizziness , Mixed hyperlipidemia , Essential hypertension , Coronary artery disease involving [place] coronary artery of [place] heart without angina pectoris , S/P PTCA (percutaneous transluminal coronary angioplasty) Take 1 tablet by mouth once daily 90 tablet 3 08/12/2021 Active Start: 08-05-2020 take 1 tablet by troy th once daily metoprolol succinate (TOPROL XL) 50 MG extended release tablet Indications: Dizziness , Mixed hyperlipidemia , Essential hypertension , Coronary artery disease involving [place] coronary artery of [place] heart without angina pectoris , S/P PTCA (percutaneous transluminal coronary angioplasty) Take 1 tablet by mouth once daily 90 tablet 3 08/05/2020 Active Start: 06-22-2019 take 1 tablet by troy th once daily metoprolol succinate (TOPROL XL) 50 MG extended release tablet Indications: Dizziness , Mixed hyperlipidemia , Essential hypertension , Coronary artery disease involving [place] coronary artery of [place] heart without angina pectoris , S/P PTCA [...] 11-12-2017 End: 06-17-2020 NICOTINE 21 MG/24 HR [facility] - 06/17/2020 Provider: Start: 11-12-2017 End: 11-12-2017 NICOTINE 21 MG/24 HR [facility] - 11/12/2017 Provider: nitroglycerin 0.4 mg sublingual [...] 6 H OURS PRN, Nausea, Vomiting, Starting Tu 2/9/21 at 1238 Start: 08-27-2020 End: 08-27-2020 ondansetron [...] MORNING, First dose on Wed01/02/21 at 1200 Start: 08-29-2020 take 40 mg [...] (DEFINITY) injection 1.65 mg polyethylene glycol [id number] mg powder for oral solution (4 sources) [...] Start: 11-18-2022 take 1 tablet by troy th once daily potassium chloride (KLOR-CON M) 20 MEQ extended release tablet Indications: Hypokalemia Take 1 tablet by mouth daily 90 tablet 1 11/18/2022 Active Start: 01-04-2021 End: 11-26-2021 Potassium Chloride Hilda ER 2 0 MEQ Oral Tablet Extended Release 01/04/2021 - 11/26/2021 Provider: Start: 01-03-2021 take 1 tablet by troy once daily [...] Start: 01-20-2018 take 1 tablet by troy once daily at mealtime potassium chloride 10 [...] 01-20-2018 End: 06-17-2020 POTASSIUM CHLORIDE 10 MEQ GA SC 01/20/2018 - 06/17/2020 Provider: Start: 01-20-2018 End: 06-17-2020 KLOR-CON M20 20 MEQ MISC 11/2017 - 06/17/2020 Provider: Start: 01-20-2018 End: 01-20-2018 KLOR-CON M20 20 MEQ MISC 11/2017 - 01/20/2018 Provider: Start: 01-20-2018 End: 01-20-2018 POTASSIUM CHLORIDE 10 MEQ GA SC 01/20/2018 - 01/20/2018 Provider: predniSONE 20 [...] frequent/long duration piggyback infusions, Starting on Vivian 01/02/21 at 1132 Administer at the same rate [...] times per day), First dose on Vivian 04/20/19 at 0900 Start: 04-20-2019 sodium chlorid e [...] Oral, 2 TIMES DAILY, First dose on 10/20/21 at 0200, Until Discontinued It is not recommended to crush, break, or chew immediate release tablets due to bitter taste. Start: 10-06-2021 take 1 tablet by [facility] twice daily 50 mg, Oral, 2 TIMES DAILY, First dose on Wed10/06/21 at 2300 It is not recommended to crush, break, or chew immediate release tablets due to bitter taste. Start: 01-02-2021 take 1 tablet by [facility] twice daily 50 mg, Oral, 2 TIMES DAILY, First dose on Vivian 01/02/21 at 1200 It is not recommended to crush, break, or chew immediate release tablets due to bitter taste. Start: 08-28-2020 take 1 tablet by [facility] twice daily 50 mg, Oral, 2 TIMES DAILY, First dose on Wed08/28/20 at 2100 It is not recommended to crush, break, or chew immediate release tablets due to bitter taste. Start: 08-05-2020 take 2 tablets by mo [facility] twice daily topiramate (TOPAMAX) 25 MG tablet [...] Active Start: 12-28-2019 take 1 tablet by [facility] twice daily 50 mg, Oral, 2 [...] Coronary atherosclerosis of unspecified type of vessel, [place] or graft; Translations: [Acute coronary syndrome] Onset: [...] Test Name Value Interpretation Reference Range Facility ECG 12-LEADon 08-21-2024 [place] [address] Electrocardiograph Report Signed Patient: MIKE SHARIF MR#: [id number] : 1975 Acct:[id number] Age/Sex: 48 / F ADM Date: 08/20/24 Loc: MS 219-[address]: Ángel Jackson M.D. Ordering Physician: Brock Prajapati Date of Service: 08/20/24 Procedure(s): ECG 12 lead Accession Number(s): [id number] cc: [facility] Test Date: 2024-08-20 Pat Name: MIKE SHARIF Department: Room: - Gender: Female Security Flex Utility Officer: : 1975 Requested By: [id number] Order Number: [id number] Reading MD: ALIYA HADDAD Measurements Intervals [place] Rate: 91 P: 77 MA: 148 QRS: 16 QRSD: 76 T: 53 QT: 352 QTc: 401 Interpretive Statements 1100 Sinus rhythm [address] depression [address] [place] abnormality 9130 borderline ECG Compared to ECG 05/09/2024 10:23:26 ST (T wave) deviation now present Electronically Signed On 08-21-2024 6:54:40 EST by ALIYA HADDAD Dictated By: Aliya Haddad D.O. Signed By: 08/21/24 0655 DD/ 45 TD/TT: Forensic Analyst: [facility] Radiology Radiologmary ornelas MD - 08/21/2024 [place] [address] Electrocardiograph Report Signed Patient: MIKE SHARIF MR#: [id number] : 1975 Acct:[id number] Age/Sex: 48 / F ADM Date: 08/20/24 Loc: MS 219-[address]: Ángel Jackson M.D. Ordering Physician: Brock Prajapati Date of Service: 08/20/24 Procedure(s): ECG 12 lead Accession Number(s): [id number] cc: [facility] Test Date: 2024-08-20 Pat Name: MIKE SHARIF Department: Room: - Gender: Female Security Flex Utility Officer: : 1975 Requested By: [id number] Order Number: [id number] Reading MD: ALIYA HADDAD Measurements Intervals [place] Rate: 91 P: 77 MA: 148 QRS: 16 QRSD: 76 T: 53 QT: 352 QTc: 401 Interpretive Statements 1100 Sinus rhythm [address] depression [address] [place] abnormality 9130 borderline ECG Compared to ECG 05/09/2024 10:23:26 ST (T wave) deviation now present Electronically Signed On 08-21-2024 6:54:40 EST by ALIYA HADDAD Dictated By: Aliya Haddad D.O. Signed By: 08/21/24 0655 DD/ 45 TD/TT: Forensic Analyst: [facility] 12-LEADOrdered By: [employer] logist Radiology on 08-21-2024 [employer] Work Phone: ECG 12-LEADon 08-20-2024 Radiology Study observation (narrative) [facility] [employer] XR WRIST RT MIN 3 VWSon 11- XR WRIST RT MIN 3 VWS XR WRIST RT MIN 3 VWS XR WRIST RT MIN 3 VWS IMPRESSION: Clinical Information: Right wrist pain Comparison: None. * No fracture. Normal alignment. No acute osseous abnormalities. If there is persistent pain in the anatomical snuffbox, recommend followup films in 7-10 days. Finalized by Brock Rodriguez MD on 06/06/2024 3:53 PM Normal [facility] XR RIBS RT 3 VWS W PA [...] Rodriguez MD on 06/05/2024 6:38 PM Normal [facility] XR SHOULDER RT MIN 2 VWSon 1 [...] Janae Contreras on 06/05/2024 6:40 PM Normal [facility] Basic Metabolic Panelon 08-2 Anion gap [Moles/Vol] 12 mmol/L 9 - 17 mmol/L [facility] Calcium [Mass/Vol] 9.0 mg/dL 8.6 - 10. 4 mg/dL [facility] Chloride [Moles/Vol] 98 mmol/L 98 - 10 7 mmol/L [facility] CO2 [Moles/Vol] 26 mmol/L 20 - 31 mmol/L [facility] Creatinine [Mass/Vol] 0.7 mg/dL 0.5 - 0.9 mg/dL [facility] Est, Glom Filt Rate - PINF [facility] Comment on above: These results are [...] 114 mg/dL High 70 - 99 mg/dL [facility] Interpretation and review of laboratory results Abnormal [facility] Potassium [Moles/Vol] 3.5 mmol/L Low 3.7 - 5.3 mmol/L [facility] Sodium [Moles/Vol] 136 mmol/L 135 - 144 mmol/L [facility] Urea nitrogen [Mass/Vol] 9 mg/dL 6 - 20 mg/dL [facility] Urea nitrogen/Creatinine [Mass ratio] 13 mg/mg - 20 [facility] Basic Metabolic Profon 03-12 Anion gap [Moles/Vol] 12 mmol/L Normal - [facility] Comment on above: Performed By: #### B MP, CBC #### [facility] [address] [place] [address] Company Accountant: Jordon Tai MD BUN/CRE Ratio 13 Normal - [facility] Comment on above: Performed By: #### B MP, CBC #### [facility] [address] [place] [address] Company Accountant: Jordon Tai MD Calcium [Mass/Vol] 9.0 mg/dL Normal 8.6-10.4 [facility] Comment on above: Performed By: #### B MP, CBC #### [facility] [address] [place] [address] [place] [address] Company Accountant: Jordon Tai MD Chloride [Moles/Vol] 98 mmol/L Normal 98-[address] [facility] Comment on above: Performed By: #### B MP, CBC #### [facility] [address] [place] [address] Company Accountant: Jordon Tai MD CO2 [Moles/Vol] 26 mmol/L Normal 20-31 [facility] Comment on above: Performed By: #### B MP, CBC #### [facility] [address] [place] [address] Company Accountant: Jordon Tai MD Creatinine [Mass/Vol] 0.7 mg/dL Normal 0.5-0.9 [facility] Comment on above: Performed By: #### B MP, CBC #### [facility] [address] [place] [address] Company Accountant: Jordon Tai MD GFR/1.73 sq M.predicted among non-blacks MDRD (S/P/Bld) [Vol rate/Area] mL/min/{1.73_m2} Normal >60 [facility] Comment on above: Result Comment: These [...] Performed By: #### B RUPAL, CBC #### [facility] [address] [place] [address] Company Accountant: Jordon Tai MD Glucose [Mass/Vol] 114 mg/dL High 70-99 [facility] Comment on above: Performed By: #### B MP, CBC #### [facility] [address] [place] [address] Company Accountant: Jordon Tai MD Potassium [Moles/Vol] 3.5 mmol/L Low 3.7-5.3 [facility] Comment on above: Performed By: #### B MP, CBC #### [facility] [address] [place] [address] Company Accountant: Jordon Tai MD Sodium [Moles/Vol] 136 mmol/L Normal 135-144 [facility] Comment on above: Performed By: #### B MP, CBC #### [facility] [address] [place] [address] Company Accountant: Jordon Tai MD Urea nitrogen [Mass/Vol] 9 mg/dL Normal 6-20 [facility] Comment on above: Performed By: #### B MP, CBC #### [facility] [address] [place] [address] Company Accountant: Jordon Tai MD CBC with Auto Differentialon 03-12-2024 Basophils (Bld) [#/Vol] 0.06 10*3/uL [facility] Basophils/100 WBC (Bld) 1 % 0 - 2 % [facility] Eosinophils (Bld) [#/Vol] 0.08 10*3/uL [facility] Eosinophils/100 WBC (Bld) 1 % 1 - 4 % [facility] Erythrocyte distribution width (RBC) [Ratio] 12.1 % 11.8 - 14.4 % [facility] Hematocrit (Bld) [Volume fraction] 37.1 % 36.3 - 47.1 % [facility] Hemoglobin (Bld) [Mass/Vol] 13.1 g/dL 11.9 - 15.1 g/dL [facility] Immature granulocytes (Bld) [#/Vol] [facility] Immature granulocytes/100 WBC (Bld) 0 % 0 [facility] Interpretation and review of laboratory results Abnormal [facility] Lymphocytes/100 WBC (Bld) 27 % 24 - 43 % [facility] Lymphocytes/100 WBC (Bld) 2.12 % [facility] MCH (RBC) [Entitic mass] 29.6 pg 25.2 - 33.5 pg [facility] MCHC (RBC) [Mass/Vol] 35.3 g/dL High 28.4 - 34.8 g/dL [facility] MCV (RBC) [Entitic vol] 83.9 fL 82.6 - 102.9 fL [facility] Monocytes/100 WBC (Bld) 7 % 3 - 12 % B ON [facility] Monocytes/100 WBC (Bld) 0.55 % B ON [facility] Neutrophils/100 WBC (Bld) 64 % 36 - 65 % [facility] Nucleated RBC/100 WBC (Bld) [Ratio] 0.0 % 0.0 per 100 WBC [facility] Platelet mean volume (Bld) [Entitic vol] 9.7 fL 8.1 - 13.5 fL [facility] Platelets (Bld) [#/Vol] 295 10*3/uL [facility] RBC (Bld) [#/Vol] 4.42 10*6/uL 3.95 - 5.11 m/uL [facility] Segmented neutrophils/100 WBC (Bld) 4.97 % [facility] WBC other (Bld) [#/Vol] 7.8 B ON [facility] CBC with Diffon 03-12-2024 Abs. Basophil 0.06 k/uL Normal 0.00-0.20 [facility] Comment on above: Performed By: #### B MP, CBC #### [facility] [address] [place] [address] [place] [address] Company Accountant: Jordon Tai MD Abs.Imm.Granulocyte <0.03 Normal 0.00-0.30 [facility] Comment on above: Performed By: #### B MP, CBC #### [facility] [address] [place] [address] [place] [address] Company Accountant: Jordon Tai MD Abs.Neutrophil (Seg) 4.97 k/uL Normal 1.50-8.[address] [facility] Comment on above: Performed By: #### B MP, CBC #### [facility] [address] [place] [address] [place] [address] Company Accountant: Jordon Tai MD Basophils/100 WBC (Bld) 1 % Normal 0-2 [facility] Comment on above: Performed By: #### B MP, CBC #### [address] [place], [facility] Company Accountant: Jordon Tai MD Eosinophils (Bld) [#/Vol] 0.08 10*3/uL Normal 0.00-0.44 [facility] Comment on above: Performed By: #### B MP, CBC #### [address] [place], [facility] Company Accountant: Jordon Tai MD Eosinophils/100 WBC (Bld) 1 % Normal 1-4 [facility] Comment on above: Performed By: #### B MP, CBC #### [address] [place] [id number] Company Accountant: Jordon Tai MD Erythrocyte distribution width (RBC) [Ratio] 12.1 % Normal 11.8-14.4 [facility] Comment on above: Performed By: #### B MP, CBC #### [address] [place], [facility] Company Accountant: Jordon Tai MD Hematocrit (Bld) [Volume fraction] 37.1 % Normal 36.3-47.1 [facility] Comment on above: Performed By: #### B MP, CBC #### [address] [place] [address] Company Accountant: Jordon Tai MD Hemoglobin (Bld) [Mass/Vol] 13.1 g/dL Normal 11.9-15.1 [facility] Comment on above: Performed By: #### B MP, CBC #### [address] [place] [address] Company Accountant: Jordon Tai MD Immature granulocytes/100 WBC (Bld) 0 % Normal 0 [facility] Comment on above: Performed By: #### B MP, CBC #### [address] [place], [place] [id number] Company Accountant: Jordon Tai MD Lymphocytes (Bld) [#/Vol] 2.12 10*3/uL Normal 1.10-3.70 [facility] Comment on above: Performed By: #### B MP, CBC #### [facility] [address] [place], [place] [id number] Company Accountant: Jordon Tai MD Lymphocytes/100 WBC (Bld) 27 % Normal 24-43 [facility] Comment on above: Performed By: #### B MP, CBC #### [address] [place] [facility] Company Accountant: Jordon Tai MD MCH (RBC) [Entitic mass] 29.6 pg Normal 25.2-33.5 [facility] Comment on above: Performed By: #### B MP, CBC #### [address] [place], [facility] Company Accountant: Jordon Tai MD MCHC (RBC) [Mass/Vol] 35.3 g/dL High 28.4-34.8 [facility] Comment on above: Performed By: #### B MP, CBC #### [address] [place] [facility] Company Accountant: Jordon Tai MD MCV (RBC) [Entitic vol] 83.9 fL Normal 82.6-102.9 [facility] Comment on above: Performed By: #### B MP, CBC #### [address] [place] [address] Company Accountant: Jordon Tai MD Monocytes (Bld) [#/Vol] 0.55 10*3/uL Normal 0.10-1.20 [facility] Comment on above: Performed By: #### B MP, CBC #### [address] [place] [address] Company Accountant: Jordon Tai MD Monocytes/100 WBC (Bld) 7 % Normal 3-12 [facility] Comment on above: Performed By: #### B MP, CBC #### [facility] [address] [place] [address] Company Accountant: Jordon Tai MD Neutrophil (Seg) 64 % Normal 36-65 [facility] Comment on above: Performed By: #### B MP, CBC #### [facility] [address] [place] [address] Company Accountant: Jordon Tai MD NRBC Automated 0.0 per 100 WBC Normal 0.0 [facility] Comment on above: Performed By: #### B MP, CBC #### [facility] [address] [place] [address] Company Accountant: Jordon Tai MD Platelet mean volume (Bld) [Entitic vol] 9.7 fL Normal 8.1-13.5 [facility] Comment on above: Performed By: #### B MP, CBC #### [address] [place] [address] Company Accountant: Jordon Tai MD Platelets (Bld) [#/Vol] 295 10*3/uL Normal 138-453 [facility] Comment on above: Performed By: #### B MP, CBC #### [facility] [address] [place] [address] Company Accountant: Jordon Tai MD RBC (Bld) [#/Vol] 4.42 10*6/uL Normal 3.95-5.11 [facility] Comment on above: Performed By: #### B MP, CBC #### [facility] [address] [place] [address] Company Accountant: Jordon Tai MD WBC (Bld) [#/Vol] 7.8 10*3/uL Normal 3.5-11.3 [facility] Comment on above: Performed By: #### B MP, CBC #### [facility] [address] [place] [address] Company Accountant: Jordon Tai MD Portable XR Chest AP single viewon 03-12-2024 No radiographic evid ence of acute pulmonary disease. [facility] EXAMINATION: ONE XRAY VIEW OF THE CHEST 03/12/2024 12:26 pm COMPARISON: Chest x-ray dated 01/25/2024. HISTORY: ORDERING SYSTEM PROVIDED HISTORY: chest pain TECHNOLOGIST PROVIDED HISTORY: chest pain FINDINGS: HEART/MEDIASTINUM: The cardiomediastinal silhouette is within normal limits. PLEURA/LUNGS: There are no focal consolidations or pleural effusions. There is no appreciable pneumothorax. BONES/SOFT TISSUE: No acute abnormality. Cardiac loop recorder is noted. [facility] Alan Huitron MD - 03/12/2024 EXAMINATION: [...] radiographic evidence of acute pulmonary disease. [facility] Radiology Study observation (narrative) [facility] Portable XR Chest AP single viewOrdered By: Alan Huitron on 03-12-2024 [facility] Work Phone: Troponinon 03-12-2024 Troponin I.cardiac High sensitivity method [Mass/Vol] 6 ng/L 0 - 14 ng/L [facility] Comment on above: High Sensitivity Tro ponin values cannot be compared with other Troponin methodologies. [facility] Troponin, High Sens 6 ng/L Normal 0-14 [facility] Comment on above: Result Comment: High Sensitivity Troponin values cannot be compared with other Troponin methodologies. Performed By: #### T ROPI #### [facility] [address] [place] [address] Company Accountant: Jordon Tai MD Troponin I.cardiac High sensitivity method [Mass/Vol] ng/L 0 - 14 ng/L [facility] Comment on above: High Sensitivity Tro ponin values cannot be compared with other Troponin methodologies. [facility] Troponin, High Sens <6 Normal 0-14 [facility] Comment on above: Result Comment: High Sensitivity Troponin values cannot be compared with other Troponin methodologies. Performed By: #### B MP, CBC #### [facility] [address] [place] [address] Company Accountant: Jordon Tai MD XR CHEST PORTABLEon 03-12-20 XR CHEST PORTABLE EXAMINATION: ONE XRAY VIEW [...] Alan Huitron MD 03/12/24 Final result Normal [facility] Basic Metabolic Profon 01-24 Potassium [Moles/Vol] 3.0 mmol/L Low 3.7-5.3 [facility] Comment on above: Performed By: #### C DP, LIP, CP, TROPI #### [facility] [address] [place] [address] Company Accountant: Jordon Tai MD Anion gap [Moles/Vol] 14 mmol/L Normal 9-17 [facility] Comment on above: Performed By: #### C DP, LIP, CP, TROPI #### [facility] [address] [place], [place] [id number] Company Accountant: Jordon Tai MD BUN/CRE Ratio 11 Normal 9-20 [facility] Comment on above: Performed By: #### C DP, LIP, CP, TROPI #### [facility] [address] [place], [place] [id number] Company Accountant: Jordon Tai MD Calcium [Mass/Vol] 8.7 mg/dL Normal 8.6-10.4 [facility] Comment on above: Performed By: #### C DP, LIP, CP, TROPI #### [facility] [address] [place], [place] [id number] Company Accountant: Jordon Tai MD Chloride [Moles/Vol] 101 mmol/L Normal 98-[address] [facility] Comment on above: Performed By: #### C DP, LIP, CP, TROPI #### [facility] [address] [place], [place] [id number] Company Accountant: Jordon Tai MD CO2 [Moles/Vol] 23 mmol/L Normal 20-31 [facility] Comment on above: Performed By: #### C DP, LIP, CP, TROPI #### [facility] [address] [place], [place] [id number] Company Accountant: Jordon Tai MD Creatinine [Mass/Vol] 0.7 mg/dL Normal 0.5-0.9 [facility] Comment on above: Performed By: #### C DP, LIP, CP, TROPI #### [facility] [address] [place], [place] [id number] Company Accountant: Jordon Tai MD GFR/1.73 sq M.predicted among non-blacks MDRD (S/P/Bld) [Vol rate/Area] mL/min/{1.73_m2} Normal >60 [facility] Comment on above: Result Comment: These [...] #### C DP, LIP, CP, TROPI #### [facility] [address] [place], [place] [address] Company Accountant: Jordon Tai MD Glucose [Mass/Vol] 109 mg/dL High 70-99 [facility] Comment on above: Performed By: #### C DP, LIP, CP, TROPI #### [facility] [address] [place], [place] [id number] Company Accountant: Jordon Tai MD Sodium [Moles/Vol] 138 mmol/L Normal 135-144 [facility] Comment on above: Performed By: #### C DP, LIP, CP, TROPI #### [facility] [address] [place], [place] [id number] Company Accountant: Jordon Tai MD Urea nitrogen [Mass/Vol] 8 mg/dL Normal 6-20 [facility] Comment on above: Performed By: #### C DP, LIP, CP, TROPI #### [facility] [address] [place] [address] [place] [place], [place] [id number] Company Accountant: Jordon Tai MD Brain Natri. Peptideon 01-24 Pro-BNP <36 Normal <300 [facility] Comment on above: Result Comment: An age-independent cutoff point of 300 pg/ml has a 98% negative predictive value excluding acute heart failure. Performed By: #### C DP, LIP, CP, TROPI #### [facility] [address] [place] [address] Company Accountant: Jordon Tai MD CBC with Diffon 01-25-2024 Abs. Basophil 0.04 k/uL Normal 0.00-0.20 [facility] Comment on above: Performed By: #### C DP, LIP, CP, TROPI #### [address] [place], [place] [address] Company Accountant: Jordon Tai MD Abs.Imm.Granulocyte <0.03 Normal 0.00-0.30 [facility] Comment on above: Performed By: #### C DP, LIP, CP, TROPI #### [address] [place], [place] [address] Company Accountant: Jordon Tai MD Abs.Neutrophil (Seg) 4.81 k/uL Normal 1.50-8.[address] [facility] Comment on above: Performed By: #### C DP, LIP, CP, TROPI #### [address] [place], [place] [address] Company Accountant: Jordon Tai MD Basophils/100 WBC (Bld) 1 % Normal 0-2 [facility] Comment on above: Performed By: #### C DP, LIP, CP, TROPI #### [address] [place], [facility]83 Company Accountant: Jordon Tai MD Eosinophils (Bld) [#/Vol] 0.14 10*3/uL Normal 0.00-0.44 [facility] Comment on above: Performed By: #### C DP, LIP, CP, TROPI #### [address] [place], [place] [address] Company Accountant: Jordon Tai MD Eosinophils/100 WBC (Bld) 2 % Normal 1-4 [facility] Comment on above: Performed By: #### C DP, LIP, CP, TROPI #### [address] [place], [place] [address] Company Accountant: Jordon Tai MD Erythrocyte distribution width (RBC) [Ratio] 12.2 % Normal 11.8-14.4 [facility] Comment on above: Performed By: #### C DP, LIP, CP, TROPI #### [address] [place], [facility]83 Company Accountant: Jordon Tai MD Hematocrit (Bld) [Volume fraction] 35.1 % Low 36.3-47.1 [facility] Comment on above: Performed By: #### C DP, LIP, CP, TROPI #### [address] [place], [facility]83 Company Accountant: Jordon Tai MD Hemoglobin (Bld) [Mass/Vol] 12.7 g/dL Normal 11.9-15.1 [facility] Comment on above: Performed By: #### C DP, LIP, CP, TROPI #### [address] [place], [place] [address] Company Accountant: Jordon Tai MD Immature granulocytes/100 WBC (Bld) 0 % Normal 0 [facility] Comment on above: Performed By: #### C DP, LIP, CP, TROPI #### [address] [place], [facility]83 Company Accountant: Jordon Tai MD Lymphocytes (Bld) [#/Vol] 2.41 10*3/uL Normal 1.10-3.70 [facility] Comment on above: Performed By: #### C DP, LIP, CP, TROPI #### [address] [place], [facility]83 Company Accountant: Jordon Tai MD Lymphocytes/100 WBC (Bld) 30 % Normal 24-43 [facility] Comment on above: Performed By: #### C DP, LIP, CP, TROPI #### [address] [place], [facility]83 Company Accountant: Jordon Tai MD MCH (RBC) [Entitic mass] 29.7 pg Normal 25.2-33.5 [facility] Comment on above: Performed By: #### C DP, LIP, CP, TROPI #### [address] [place] [address] Company Accountant: Jordon Tai MD MCHC (RBC) [Mass/Vol] 36.2 g/dL High 28.4-34.8 [facility] Comment on above: Performed By: #### C DP, LIP, CP, TROPI #### [address] [place], [facility]83 Company Accountant: Jordon Tai MD MCV (RBC) [Entitic vol] 82.0 fL Low 82.6-102.9 [facility] Comment on above: Performed By: #### C DP, LIP, CP, TROPI #### [address] [place] [address] Company Accountant: Jordon Tai MD Monocytes (Bld) [#/Vol] 0.60 10*3/uL Normal 0.10-1.20 [facility] Comment on above: Performed By: #### C DP, LIP, CP, TROPI #### [address] [place], [place] [address] Company Accountant: Jordon Tai MD Monocytes/100 WBC (Bld) 8 % Normal 3-12 [facility] Comment on above: Performed By: #### C DP, LIP, CP, TROPI #### [address] [place], [facility]83 Company Accountant: Jordon Tai MD Neutrophil (Seg) 59 % Normal 36-65 [facility] Comment on above: Performed By: #### C DP, LIP, CP, TROPI #### [address] [place], [place] [id number] Company Accountant: Jordon aTi MD NRBC Automated 0.0 per 100 WBC Normal 0.0 [facility] Comment on above: Performed By: #### C DP, LIP, CP, TROPI #### [facility] [address] [place], [place] [id number] Company Accountant: Jordon Tai MD Platelet mean volume (Bld) [Entitic vol] 10.0 fL Normal 8.1-13.5 [facility] Comment on above: Performed By: #### C DP, LIP, CP, TROPI #### [facility] [address] [place], [facility]83 Company Accountant: Jordon Tai MD Platelets (Bld) [#/Vol] 293 10*3/uL Normal 138-453 [facility] Comment on above: Performed By: #### C DP, LIP, CP, TROPI #### [address] [place], [place] [id number] Company Accountant: Jordon Tai MD RBC (Bld) [#/Vol] 4.28 10*6/uL Normal 3.95-5.11 [facility] Comment on above: Performed By: #### C DP, LIP, CP, TROPI #### [address] [place], [facility]83 Company Accountant: Jordon Tai MD WBC (Bld) [#/Vol] 8.0 10*3/uL Normal 3.5-11.3 [facility] Comment on above: Performed By: #### C DP, LIP, CP, TROPI #### [address] [place], [facility]83 Company Accountant: Jordon Tai MD D-Dimer Teston 01-25-2024 D-Dimer Test 0.40 ug/mL FEU Normal 0.00-0.59 [facility] Comment on above: Result Comment: When [...] #### C DP, LIP, CP, TROPI #### [facility] [address] [place] [address] [place] [address] Company Accountant: Jordon Tai MD Magnesiumon 01-25-2024 Magnesium [Mass/Vol] 1.9 mg/dL Normal 1.6-2.[address] [facility] Comment on above: Performed By: #### C DP, LIP, CP, TROPI #### [address] [place] [address] Company Accountant: Jordon Tai MD Troponinon 01-25-2024 Troponin, High Sens <6 Normal 0-14 [facility] Comment on above: Result Comment: High Sensitivity Troponin values cannot be compared with other Troponin methodologies. Performed By: #### C DP, LIP, CP, TROPI #### [facility] [address] [place] [address] Company Accountant: Jordon Tai MD XR CHEST (2 VW)on [...] Janae Espinoza MD 01/25/24 Final result Normal [facility] CBC with Auto Differentialon 12-23-2023 Basophils (Bld) [#/Vol] 0.06 10*3/uL [facility] Basophils/100 WBC (Bld) 1 % 0 - 2 % B ON [facility] Eosinophils (Bld) [#/Vol] 0.09 10*3/uL [facility] Eosinophils/100 WBC (Bld) 1 % 1 - 4 % [facility] Erythrocyte distribution width (RBC) [Ratio] 11.8 % 11.8 - 14.4 % [facility] Hematocrit (Bld) [Volume fraction] 40.0 % 36.3 - 47.1 % [facility] Hemoglobin (Bld) [Mass/Vol] 14.3 g/dL 11.9 - 15.1 g/dL [facility] Immature granulocytes (Bld) [#/Vol] [facility] Immature granulocytes/100 WBC (Bld) 0 % 0 [facility] Interpretation and review of laboratory results Abnormal [facility] Lymphocytes/100 WBC (Bld) 30 % 24 - 43 % [facility] Lymphocytes/100 WBC (Bld) 2.75 % [facility] MCH (RBC) [Entitic mass] 29.9 pg 25.2 - 33.5 pg [facility] MCHC (RBC) [Mass/Vol] 35.8 g/dL High 28.4 - 34.8 g/dL [facility] MCV (RBC) [Entitic vol] 83.5 fL 82.6 - 102.9 fL [facility] Monocytes/100 WBC (Bld) 6 % 3 - 12 % B ON [facility] Monocytes/100 WBC (Bld) 0.58 % B ON [facility] Neutrophils/100 WBC (Bld) 62 % 36 - 65 % [facility] Nucleated RBC/100 WBC (Bld) [Ratio] 0.0 % 0.0 per 100 WBC [facility] Platelet mean volume (Bld) [Entitic vol] 9.7 fL 8.1 - 13.5 fL [facility] Platelets (Bld) [#/Vol] 311 10*3/uL [facility] RBC (Bld) [#/Vol] 4.79 10*6/uL 3.95 - 5.11 m/uL [facility] Segmented neutrophils/100 WBC (Bld) 5.81 % [facility] WBC other (Bld) [#/Vol] 9.3 B ON [facility] CBC with Diffon 12-23-2023 Abs. Basophil 0.06 k/uL Normal 0.00-0.20 [facility] Comment on above: Performed By: #### C DP, LIP, CP, TROPI #### [address] [place] [id number] Company Accountant: Jordon Tai MD Abs.Imm.Granulocyte <0.03 Normal 0.00-0.30 [facility] Comment on above: Performed By: #### C DP, LIP, CP, TROPI #### [address] [place] [address] Company Accountant: Jordon Tai MD Abs.Neutrophil (Seg) 5.81 k/uL Normal 1.50-8.[address] [facility] Comment on above: Performed By: #### C DP, LIP, CP, TROPI #### [address] [place] [phone] Company Accountant: Jordon Tai MD Basophils/100 WBC (Bld) 1 % Normal 0-2 [facility] Comment on above: Performed By: #### C DP, LIP, CP, TROPI #### [address] [place] [phone] Company Accountant: Jordon Tai MD Eosinophils (Bld) [#/Vol] 0.09 10*3/uL Normal 0.00-0.44 [facility] Comment on above: Performed By: #### C DP, LIP, CP, TROPI #### [address] [place], [place] [id number] Company Accountant: Jordon Tai MD Eosinophils/100 WBC (Bld) 1 % Normal 1-4 [facility] Comment on above: Performed By: #### C DP, LIP, CP, TROPI #### [address] [place], [facility]83 Company Accountant: Jordon Tai MD Erythrocyte distribution width (RBC) [Ratio] 11.8 % Normal 11.8-14.4 [facility] Comment on above: Performed By: #### C DP, LIP, CP, TROPI #### [address] [place], [facility]83 Company Accountant: Jordon Tai MD Hematocrit (Bld) [Volume fraction] 40.0 % Normal 36.3-47.1 [facility] Comment on above: Performed By: #### C DP, LIP, CP, TROPI #### [address] [place], [place] [address] Company Accountant: Jordon Tai MD Hemoglobin (Bld) [Mass/Vol] 14.3 g/dL Normal 11.9-15.1 [facility] Comment on above: Performed By: #### C DP, LIP, CP, TROPI #### [address] [place], [facility]83 Company Accountant: Jordon Tai MD Immature granulocytes/100 WBC (Bld) 0 % Normal 0 [facility] Comment on above: Performed By: #### C DP, LIP, CP, TROPI #### [address] [place], [place] [id number] Company Accountant: Jordon Tai MD Lymphocytes (Bld) [#/Vol] 2.75 10*3/uL Normal 1.10-3.70 [facility] Comment on above: Performed By: #### C DP, LIP, CP, TROPI #### [address] [place], [facility]83 Company Accountant: Jordon Tai MD Lymphocytes/100 WBC (Bld) 30 % Normal 24-43 [facility] Comment on above: Performed By: #### C DP, LIP, CP, TROPI #### [address] [place], [place] [address] Company Accountant: Jordon Tai MD MCH (RBC) [Entitic mass] 29.9 pg Normal 25.2-33.5 [facility] Comment on above: Performed By: #### C DP, LIP, CP, TROPI #### [address] [place], [place] [address] Company Accountant: Jordon Tai MD MCHC (RBC) [Mass/Vol] 35.8 g/dL High 28.4-34.8 [facility] Comment on above: Performed By: #### C DP, LIP, CP, TROPI #### [address] [place], [place] [address] Company Accountant: Jordon aTi MD MCV (RBC) [Entitic vol] 83.5 fL Normal 82.6-102.9 [facility] Comment on above: Performed By: #### C DP, LIP, CP, TROPI #### [address] [place], [place] [address] Company Accountant: Jordon Tai MD Monocytes (Bld) [#/Vol] 0.58 10*3/uL Normal 0.10-1.20 [facility] Comment on above: Performed By: #### C DP, LIP, CP, TROPI #### [address] [place], [place] [address] Company Accountant: Jordon Tai MD Monocytes/100 WBC (Bld) 6 % Normal 3-12 [facility] Comment on above: Performed By: #### C DP, LIP, CP, TROPI #### [facility] [address] [place] [address] [place] [address] Company Accountant: Jordon Tai MD Neutrophil (Seg) 62 % Normal 36-65 [facility] Comment on above: Performed By: #### C DP, LIP, CP, TROPI #### [facility] [address] [place], [place] [phone] Company Accountant: Jordon Tai MD NRBC Automated 0.0 per 100 WBC Normal 0.0 [facility] Comment on above: Performed By: #### C DP, LIP, CP, TROPI #### [address] [place], [place] [id number] Company Accountant: Jordon Tai MD Platelet mean volume (Bld) [Entitic vol] 9.7 fL Normal 8.1-13.5 [facility] Comment on above: Performed By: #### C DP, LIP, CP, TROPI #### [address] [place], [place] [id number] Company Accountant: Jordon Tai MD Platelets (Bld) [#/Vol] 311 10*3/uL Normal 138-453 [facility] Comment on above: Performed By: #### C DP, LIP, CP, TROPI #### [address] [place], [place] [id number] Company Accountant: Jordon Tai MD RBC (Bld) [#/Vol] 4.79 10*6/uL Normal 3.95-5.11 [facility] Comment on above: Performed By: #### C DP, LIP, CP, TROPI #### [address] [place] [address] Company Accountant: Jordon Tai MD WBC (Bld) [#/Vol] 9.3 10*3/uL Normal 3.5-11.3 [facility] Comment on above: Performed By: #### C DP, LIP, CP, TROPI #### [facility] [address] [place], [place] [id number] Company Accountant: Jordon Tai MD Comp Metabolic Pr/rfx MGon 0 - Potassium [Moles/Vol] 3.2 mmol/L Low 3.7-5.3 [facility] Comment on above: Performed By: #### C DP, LIP, CP, TROPI #### [facility] [address] [place], [place] [id number] Company Accountant: Jordon Tai MD Albumin [Mass/Vol] 4.6 g/dL Normal 3.5-5.2 [facility] Comment on above: Performed By: #### C DP, LIP, CP, TROPI #### [facility] [address] [place] [address] Company Accountant: Jordon Tai MD Albumin/Glob Ratio 1.4 Normal 1.0-2.5 [facility] Comment on above: Performed By: #### C DP, LIP, CP, TROPI #### [address] [place] [address] Company Accountant: Jordon Tai MD Alkaline Phos 110 U/L High 35-104 [facility] Comment on above: Performed By: #### C DP, LIP, CP, TROPI #### [facility] [address] [place], [place] [id number] Company Accountant: Jordon Tai MD ALT [Catalytic activity/Vol] 50 U/L High 5-33 [facility] Comment on above: Performed By: #### C DP, LIP, CP, TROPI #### [facility] [address] [place], [place] [id number] Company Accountant: Jordon Tai MD Anion gap [Moles/Vol] 15 mmol/L Normal 9-17 [facility] Comment on above: Performed By: #### C DP, LIP, CP, TROPI #### [facility] [address] [place], [place] [id number] Company Accountant: Jordon Tai MD AST [Catalytic activity/Vol] 35 U/L High <32 [facility] Comment on above: Performed By: #### C DP, LIP, CP, TROPI #### [facility] [address] [place], [place] [id number] Company Accountant: Jordon Tai MD Bilirubin [Mass/Vol] 0.3 mg/dL Normal 0.3-1.[address] [facility] Comment on above: Performed By: #### C DP, LIP, CP, TROPI #### [facility] [address] [place] [address] [place]. [place], [place] [id number] Company Accountant: Jordon Tai MD BUN/CRE Ratio 10 Normal 9-20 [facility] Comment on above: Performed By: #### C DP, LIP, CP, TROPI #### [address] [place], [place] [id number] Company Accountant: Jordon Tai MD Calcium [Mass/Vol] 9.3 mg/dL Normal 8.6-10.4 [facility] Comment on above: Performed By: #### C DP, LIP, CP, TROPI #### [facility] [address] [place] [address] [place] [place], [place] [id number] Company Accountant: Jordon Tai MD Chloride [Moles/Vol] 101 mmol/L Normal 98-[address] [facility] Comment on above: Performed By: #### C DP, LIP, CP, TROPI #### [facility] [address] [place] [address] [place] [place], [place] [id number] Company Accountant: Jordon Tai MD CO2 [Moles/Vol] 22 mmol/L Normal 20-31 [facility] Comment on above: Performed By: #### C DP, LIP, CP, TROPI #### [facility] [address] [place] [address] Company Accountant: Jordon Tai MD Creatinine [Mass/Vol] 0.8 mg/dL Normal 0.5-0.9 [facility] Comment on above: Performed By: #### C DP, LIP, CP, TROPI #### [facility] [address] [place], [place] [phone] Company Accountant: Jordon Tai MD GFR/1.73 sq M.predicted among non-blacks MDRD (S/P/Bld) [Vol rate/Area] mL/min/{1.73_m2} Normal >60 [facility] Comment on above: Result Comment: These [...] #### C DP, LIP, CP, TROPI #### [facility] [address] [place] [address] Company Accountant: Jordon Tai MD Glucose [Mass/Vol] 124 mg/dL High 70-99 [facility] Comment on above: Performed By: #### C DP, LIP, CP, TROPI #### [facility] [address] [place] [address] Company Accountant: Jordon Tai MD Protein [Mass/Vol] 7.8 g/dL Normal 6.4-8.3 [facility] Comment on above: Performed By: #### C DP, LIP, CP, TROPI #### [facility] [address] [place] [address] Company Accountant: Jordon Tai MD Sodium [Moles/Vol] 138 mmol/L Normal 135-144 [facility] Comment on above: Performed By: #### C GRAEME, CARMEN, MEETA, TROPI #### [facility] [address] [place], [place] [id number] Company Accountant: Jorodn Tai MD Urea nitrogen [Mass/Vol] 8 mg/dL Normal 6-20 [facility] Comment on above: Performed By: #### C CARMEN BEDOLLA, MEETA, TROPI #### [facility] [address] [place] [address] Company Accountant: Jordon Tai MD Comprehensive Metabolic Pane l w/ Reflex to on 12-23-2023 Albumin [Mass/Vol] 4.6 g/dL 3.5 - 5.2 g/dL [facility] Albumin/Globulin [Mass ratio] 1.4 {ratio} 1.0 - 2.5 [facility] ALP [Catalytic activity/Vol] 110 U/L High 35 - 104 U/L [facility] ALT [Catalytic activity/Vol] 50 U/L High 5 - 33 U/L [facility] Anion gap [Moles/Vol] 15 mmol/L 9 - 17 mmol/L [facility] AST [Catalytic activity/Vol] 35 U/L High NINF - 32 U/L [facility] Bilirubin [Mass/Vol] 0.3 mg/dL 0.3 - 1 .2 mg/dL [facility] Calcium [Mass/Vol] 9.3 mg/dL 8.6 - 10. 4 mg/dL [facility] Chloride [Moles/Vol] 101 mmol/L 98 - 10 7 mmol/L [facility] CO2 [Moles/Vol] 22 mmol/L 20 - 31 mmol/L [facility] Creatinine [Mass/Vol] 0.8 mg/dL 0.5 - 0.9 mg/dL [facility] Est, Glom Filt Rate - PINF [facility] Comment on above: These results are [...] mg/dL High 70 - 99 mg/dL [facility] Interpretation and review of laboratory results Abnormal [facility] Potassium [Moles/Vol] 3.2 mmol/L Low 3.7 - 5.3 mmol/L [facility] Protein [Mass/Vol] 7.8 g/dL 6.4 - 8.3 g/dL [facility] Sodium [Moles/Vol] 138 mmol/L 135 - 144 mmol/L [facility] Urea nitrogen [Mass/Vol] 8 mg/dL 6 - 20 mg/dL [facility] Urea nitrogen/Creatinine [Mass ratio] 10 mg/mg 9 - 20 [facility] Magnesiumon 12-23-2023 Magnesium [Mass/Vol] 2.0 mg/dL 1.6 - 2 .6 mg/dL [facility] Magnesium [Mass/Vol] 2.0 mg/dL Normal 1.6-2.[address] [facility] Comment on above: Performed By: #### C DP, LIP, CP, TROPI #### [facility] [address] [place] [address] Company Accountant: Jordon Tai MD Troponinon 12-23-2023 Troponin I.cardiac High sensitivity method [Mass/Vol] ng/L 0 - 14 ng/L [facility] Comment on above: High Sensitivity Tro ponin values cannot be compared with other Troponin methodologies. [facility] Troponin, High Sens <6 Normal 0-14 [facility] Comment on above: Result Comment: High Sensitivity Troponin values cannot be compared with other Troponin methodologies. Performed By: #### C DP, LIP, CP, TROPI #### [facility] [address] [place] [address] Company Accountant: Jordon Tai MD Troponin I.cardiac High sensitivity method [Mass/Vol] ng/L 0 - 14 ng/L [facility] Comment on above: High Sensitivity Tro ponin values cannot be compared with other Troponin methodologies. [facility] Troponin, High Sens <6 Normal 0-14 [facility] Comment on above: Result Comment: High Sensitivity Troponin values cannot be compared with other Troponin methodologies. Performed By: #### C DP, LIP, CP, TROPI #### [facility] [address] [place] [address] Company Accountant: Jordon Tai MD XR CHEST (2 VW)on [...] Es Bach MD 12/23/23 Final result Normal [facility] XR Chest 2 Viewson No acute [...] intact. IMPRESSION: No acute cardiopulmonary process [facility] Radiology Study observation (narrative) [facility] XR Chest 2 ViewsOrdered By: Es Bach on 12-23-2023 [facility] Work Phone: Basic Metabolic Profon 12-06 Anion gap [Moles/Vol] 12 mmol/L Normal 9-17 [facility] Comment on above: Performed By: #### B MP, CBC #### [facility] [address] [place], [place] [id number] Company Accountant: Jordon Tai MD BUN/CRE Ratio 13 Normal 9-20 [facility] Comment on above: Performed By: #### B MP, CBC #### [facility] [address] [place] [address] Company Accountant: Jordon Tai MD Calcium [Mass/Vol] 9.1 mg/dL Normal 8.6-10.4 [facility] Comment on above: Performed By: #### B MP, CBC #### [facility] [address] [place] [address] Company Accountant: Jordon Tai MD Chloride [Moles/Vol] 102 mmol/L Normal 98-[address] [facility] Comment on above: Performed By: #### B MP, CBC #### [facility] [address] [place] [address] Company Accountant: Jordon Tai MD CO2 [Moles/Vol] 26 mmol/L Normal 20-31 [facility] Comment on above: Performed By: #### B MP, CBC #### [facility] [address] [place], [place] [id number] Company Accountant: Jordon Tai MD Creatinine [Mass/Vol] 0.8 mg/dL Normal 0.5-0.9 [facility] Comment on above: Performed By: #### B RUPAL, CBC #### [facility] [address] [place] [address] Company Accountant: Jordon Tai MD GFR/1.73 sq M.predicted among non-blacks MDRD (S/P/Bld) [Vol rate/Area] mL/min/{1.73_m2} Normal >60 [facility] Comment on above: Result Comment: These [...] Performed By: #### B RUPAL, CBC #### [facility] [address] [place] [address] [place] [place], [place] [id number] Company Accountant: Jordon Tai MD Glucose [Mass/Vol] 108 mg/dL High 70-99 [facility] Comment on above: Performed By: #### B RUPAL, CBC #### [address] [place], [place] [address]383 Company Accountant: Jordon Tai MD Potassium [Moles/Vol] 4.2 mmol/L Normal 3.7-5.3 [facility] Comment on above: Performed By: #### B RUPAL, CBC #### [facility] [address] [place], [place] [id number] Company Accountant: Jorodn Tai MD Sodium [Moles/Vol] 140 mmol/L Normal 135-144 [facility] Comment on above: Performed By: #### B RUPAL, CBC #### [facility] [address] [place] [address] Company Accountant: Jordon Tai MD Urea nitrogen [Mass/Vol] 10 mg/dL Normal 6-20 [facility] Comment on above: Performed By: #### B MP, CBC #### [address] [place] [address] Company Accountant: Jordon Tai MD CBCon 12-07-2023 Erythrocyte distribution width (RBC) [Ratio] 11.9 % Normal 11.8-14.4 [facility] Comment on above: Performed By: #### B MP, CBC #### [address] [place] [address] Company Accountant: Jordon Tai MD Hematocrit (Bld) [Volume fraction] 38.9 % Normal 36.3-47.1 [facility] Comment on above: Performed By: #### B MP, CBC #### [address] [place] [address] Company Accountant: Jordon Tai MD Hemoglobin (Bld) [Mass/Vol] 13.1 g/dL Normal 11.9-15.1 [facility] Comment on above: Performed By: #### B MP, CBC #### [address] [place] [address] Company Accountant: Jordon Tai MD MCH (RBC) [Entitic mass] 29.4 pg Normal 25.2-33.5 [facility] Comment on above: Performed By: #### B RUPAL, CBC #### [address] [place] [address] Company Accountant: Jordon Tai MD MCHC (RBC) [Mass/Vol] 33.7 g/dL Normal 28.4-34.8 [facility] Comment on above: Performed By: #### B MP, CBC #### [address] [place] [address] Company Accountant: Jordon Tai MD MCV (RBC) [Entitic vol] 87.2 fL Normal 82.6-102.9 [facility] Comment on above: Performed By: #### B MP, CBC #### [facility] [address] [place], [place] [id number] Company Accountant: Jordon Tai MD NRBC Automated 0.0 per 100 WBC Normal 0.0 [facility] Comment on above: Performed By: #### B MP, CBC #### [facility] [address] [place], [place] [id number] Company Accountant: Jordon Tai MD Platelet mean volume (Bld) [Entitic vol] 9.7 fL Normal 8.1-13.5 [facility] Comment on above: Performed By: #### B MP, CBC #### [facility] [address] [place], [place] [id number] Company Accountant: Jordon Tai MD Platelets (Bld) [#/Vol] 264 10*3/uL Normal 138-453 [facility] Comment on above: Performed By: #### B MP, CBC #### [address] [place] [address] Company Accountant: Jordon Tai MD RBC (Bld) [#/Vol] 4.46 10*6/uL Normal 3.95-5.11 [facility] Comment on above: Performed By: #### B MP, CBC #### [address] [place] [address] Company Accountant: Jordon Tai MD WBC (Bld) [#/Vol] 6.7 10*3/uL Normal 3.5-11.3 [facility] Comment on above: Performed By: #### B MP, CBC #### [address] [place] [address] Company Accountant: Jordon Tai MD TSH w/reflex to FT4on 2023 Thyroid Stim. Horm. 2.09 uIU/mL Normal 0.30-5.[address] [facility] Comment on above: Performed By: #### C DP, LIP, CP, TROPI #### [facility] [address] [place], [place] [address] Company Accountant: Jordon Tai MD CBC with Diffon 08-18-2023 Abs. Basophil <0.03 Normal 0.00-0.20 [facility] Comment on above: Performed By: #### C DP, LIP, CP, TROPI #### [address] [place], [place] [address] Company Accountant: Jordon Tai MD Abs.Imm.Granulocyte 0.04 k/uL Normal 0.00-0.30 [facility] Comment on above: Performed By: #### C DP, LIP, CP, TROPI #### [address] [place], [place] [address] Company Accountant: Jordon Tai MD Abs.Neutrophil (Seg) 6.03 k/uL Normal 1.50-8.[address] [facility] Comment on above: Performed By: #### C DP, LIP, CP, TROPI #### [address] [place], [place] [address] Company Accountant: Jordon Tai MD Basophils/100 WBC (Bld) 0 % Normal 0-2 [facility] Comment on above: Performed By: #### C DP, LIP, CP, TROPI #### [address] [place], [place] [address] Company Accountant: Jordon Tai MD Eosinophils (Bld) [#/Vol] 0.07 10*3/uL Normal 0.00-0.44 [facility] Comment on above: Performed By: #### C DP, LIP, CP, TROPI #### [address] [place], [facility] Company Accountant: Jordon Tai MD Eosinophils/100 WBC (Bld) 1 % Normal 1-4 [facility] Comment on above: Performed By: #### C DP, LIP, CP, TROPI #### [address] [place], [place] [address] Company Accountant: Jordon Tai MD Erythrocyte distribution width (RBC) [Ratio] 12.0 % Normal 11.8-14.4 [facility] Comment on above: Performed By: #### C DP, LIP, CP, TROPI #### [address] [place], [place] [address] Company Accountant: Jordon Tai MD Hematocrit (Bld) [Volume fraction] 38.2 % Normal 36.3-47.1 [facility] Comment on above: Performed By: #### C DP, LIP, CP, TROPI #### [address] [place], [place] [address] Company Accountant: Jordon Tai MD Hemoglobin (Bld) [Mass/Vol] 13.7 g/dL Normal 11.9-15.1 [facility] Comment on above: Performed By: #### C DP, LIP, CP, TROPI #### [address] [place], [place] [address] Company Accountant: Jordon Tai MD Immature granulocytes/100 WBC (Bld) 0 % Normal 0 [facility] Comment on above: Performed By: #### C DP, LIP, CP, TROPI #### [address] [place], [place] [address] Company Accountant: Jordon Tai MD Lymphocytes (Bld) [#/Vol] 2.56 10*3/uL Normal 1.10-3.70 [facility] Comment on above: Performed By: #### C DP, LIP, CP, TROPI #### [address] [place], [facility] Company Accountant: Jordon Tai MD Lymphocytes/100 WBC (Bld) 28 % Normal 24-43 [facility] Comment on above: Performed By: #### C DP, LIP, CP, TROPI #### [address] [place], [place] [address] Company Accountant: Jordon Tai MD MCH (RBC) [Entitic mass] 30.9 pg Normal 25.2-33.5 [facility] Comment on above: Performed By: #### C DP, LIP, CP, TROPI #### [address] [place], [place] [address] Company Accountant: Jordon Tai MD MCHC (RBC) [Mass/Vol] 35.9 g/dL High 28.4-34.8 [facility] Comment on above: Performed By: #### C DP, LIP, CP, TROPI #### [address] [place] [address] Company Accountant: Jordon Tai MD MCV (RBC) [Entitic vol] 86.2 fL Normal 82.6-102.9 [facility] Comment on above: Performed By: #### C DP, LIP, CP, TROPI #### [address] [place] [address] Company Accountant: Jordon Tai MD Monocytes (Bld) [#/Vol] 0.60 10*3/uL Normal 0.10-1.20 [facility] Comment on above: Performed By: #### C DP, LIP, CP, TROPI #### [address] [place], [facility] Company Accountant: Jordon Tai MD Monocytes/100 WBC (Bld) 6 % Normal 3-12 [facility] Comment on above: Performed By: #### C DP, LIP, CP, TROPI #### [address] [place], [facility] Company Accountant: Jordon Tai MD Neutrophil (Seg) 65 % Normal 36-65 [facility] Comment on above: Performed By: #### C DP, LIP, CP, TROPI #### [facility] [address] [place], [place] [id number] Company Accountant: Jordon Tai MD NRBC Automated 0.0 per 100 WBC Normal 0.0 [facility] Comment on above: Performed By: #### C DP, LIP, CP, TROPI #### [facility] [address] [place], [facility]83 Company Accountant: Jordon Tai MD Platelet mean volume (Bld) [Entitic vol] 9.5 fL Normal 8.1-13.5 [facility] Comment on above: Performed By: #### C DP, LIP, CP, TROPI #### [address] [place], [facility]83 Company Accountant: Jordon Tai MD Platelets (Bld) [#/Vol] 257 10*3/uL Normal 138-453 [facility] Comment on above: Performed By: #### C DP, LIP, CP, TROPI #### [address] [place] [address] Company Accountant: Jordon Tai MD RBC (Bld) [#/Vol] 4.43 10*6/uL Normal 3.95-5.11 [facility] Comment on above: Performed By: #### C DP, LIP, CP, TROPI #### [address] [place], [facility]83 Company Accountant: Jordon Tai MD WBC (Bld) [#/Vol] 9.3 10*3/uL Normal 3.5-11.3 [facility] Comment on above: Performed By: #### C DP, LIP, CP, TROPI #### [facility] [address] [place] [address] Company Accountant: Jordon Tai MD Comp Metabolic Pr/rfx MGon 0 08-18-2023 Albumin [Mass/Vol] 4.0 g/dL Normal 3.5-5.2 [facility] Comment on above: Performed By: #### C DP, LIP, CP, TROPI #### [facility] [address] [place], [place] [id number] Company Accountant: Jordon Tai MD Albumin/Glob Ratio 1.4 Normal 1.0-2.5 [facility] Comment on above: Performed By: #### C DP, LIP, CP, TROPI #### [facility] [address] [place], [place] [id number] Company Accountant: Jordon Tai MD Alkaline Phos 158 U/L High 35-104 [facility] Comment on above: Performed By: #### C DP, LIP, CP, TROPI #### [facility] [address] [place], [place] [id number] Company Accountant: Jordon Tai MD ALT [Catalytic activity/Vol] 70 U/L High 5-33 [facility] Comment on above: Performed By: #### C DP, LIP, CP, TROPI #### [facility] [address] [place] [address] [place], [place] [id number] Company Accountant: Jordon Tai MD Anion gap [Moles/Vol] 10 mmol/L Normal 9-17 [facility] Comment on above: Performed By: #### C DP, LIP, CP, TROPI #### [facility] [address] [place], [place] [address]83 Company Accountant: Jordon Tai MD AST [Catalytic activity/Vol] 45 U/L High <32 [facility] Comment on above: Performed By: #### C DP, LIP, CP, TROPI #### [facility] [address] [place] [address] Company Accountant: Jordon Tai MD Bilirubin [Mass/Vol] 0.7 mg/dL Normal 0.3-1.[address] [facility] Comment on above: Performed By: #### C DP, LIP, CP, TROPI #### [facility] [address] [place], [place] [id number] Company Accountant: Jordon Tai MD BUN/CRE Ratio 9 Normal 9-20 [facility] Comment on above: Performed By: #### C DP, LIP, CP, TROPI #### [facility] [address] [place], [place] 3016183 Company Accountant: Jordon Tai MD Calcium [Mass/Vol] 8.9 mg/dL Normal 8.6-10.4 [facility] Comment on above: Performed By: #### C DP, LIP, CP, TROPI #### [facility] [address] [place], [place] [id number] Company Accountant: Jordon Tai MD Chloride [Moles/Vol] 103 mmol/L Normal 98-[address] [facility] Comment on above: Performed By: #### C DP, LIP, CP, TROPI #### [address] [place], [place] [address]83 Company Accountant: Jordon Tai MD CO2 [Moles/Vol] 27 mmol/L Normal 20-31 [facility] Comment on above: Performed By: #### C DP, LIP, CP, TROPI #### [facility] [address] [place], [place] [id number] Company Accountant: Jordon Tai MD Creatinine [Mass/Vol] 0.7 mg/dL Normal 0.5-0.9 [facility] Comment on above: Performed By: #### C DP, LIP, CP, TROPI #### [facility] [address] [place] [address] Company Accountant: Jordon Tai MD GFR/1.73 sq M.predicted among non-blacks MDRD (S/P/Bld) [Vol rate/Area] mL/min/{1.73_m2} Normal >60 [facility] Comment on above: Result Comment: These [...] #### C DP, LIP, CP, TROPI #### [facility] [address] [place] [address] [place] [address] Company Accountant: Jordon Tai MD Glucose [Mass/Vol] 98 mg/dL Normal 70-99 [facility] Comment on above: Performed By: #### C DP, LIP, CP, TROPI #### [address] [place] [address] Company Accountant: Jordon Tai MD Potassium [Moles/Vol] 3.9 mmol/L Normal 3.7-5.3 [facility] Comment on above: Performed By: #### C DP, LIP, CP, TROPI #### [address] [place], [place] [address]83 Company Accountant: Jordon Tai MD Protein [Mass/Vol] 6.9 g/dL Normal 6.4-8.3 [facility] Comment on above: Performed By: #### C DP, LIP, CP, TROPI #### [facility] [address] [place] [address] [place], [place] [id number] Company Accountant: Jordon Tai MD Sodium [Moles/Vol] 140 mmol/L Normal 135-144 [facility] Comment on above: Performed By: #### C DP, LIP, CP, TROPI #### [address] [place], [place] 424[address]83 Company Accountant: Jordon Tai MD Urea nitrogen [Mass/Vol] 6 mg/dL Normal 6-20 [facility] Comment on above: Performed By: #### C DP, LIP, CP, TROPI #### [facility] [address] [place] [address] Company Accountant: Jordon Tai MD MRI ABDOMEN W WO [...] Davie White MD 08/18/23 Final result Normal [facility] CBC with Diffon 08-17-2023 Abs. Basophil 0.03 k/uL Normal 0.00-0.20 [facility] Comment on above: Performed By: #### C MPX, CDP #### [facility] [address] [place] [address] Company Accountant: Jordon Tai MD Abs.Imm.Granulocyte 0.04 k/uL Normal 0.00-0.30 [facility] Comment on above: Performed By: #### C MPX, CDP #### [address] [place], [place] [id number] Company Accountant: Jordon Tai MD Abs.Neutrophil (Seg) 5.24 k/uL Normal 1.50-8.[address] [facility] Comment on above: Performed By: #### C MPX, CDP #### [address] [place], [place] [phone] Company Accountant: Jordon Tai MD Basophils/100 WBC (Bld) 0 % Normal 0-2 [facility] Comment on above: Performed By: #### C MPX, CDP #### [address] [place], [place] [id number] Company Accountant: Jordon Tai MD Eosinophils (Bld) [#/Vol] 0.07 10*3/uL Normal 0.00-0.44 [facility] Comment on above: Performed By: #### C MPX, CDP #### [address] [place], [place] 1198783 Company Accountant: Jordon Tai MD Eosinophils/100 WBC (Bld) 1 % Normal 1-4 [facility] Comment on above: Performed By: #### C MPX, CDP #### [address] [place], [place] [phone] Company Accountant: Jordon Tai MD Erythrocyte distribution width (RBC) [Ratio] 11.9 % Normal 11.8-14.4 [facility] Comment on above: Performed By: #### C MPX, CDP #### [address] [place], [place] [id number] Company Accountant: Jordon Tai MD Hematocrit (Bld) [Volume fraction] 37.2 % Normal 36.3-47.1 [facility] Comment on above: Performed By: #### C MPX, CDP #### [address] [place], [place] [phone] Company Accountant: Jordon Tai MD Hemoglobin (Bld) [Mass/Vol] 12.7 g/dL Normal 11.9-15.1 [facility] Comment on above: Performed By: #### C MPX, CDP #### [address] [place], [place] [id number] Company Accountant: Jordon Tai MD Immature granulocytes/100 WBC (Bld) 1 % High 0 [facility] Comment on above: Performed By: #### C MPX, CDP #### [address] [place], [place] [phone] Company Accountant: Jordon Tai MD Lymphocytes (Bld) [#/Vol] 1.99 10*3/uL Normal 1.10-3.70 [facility] Comment on above: Performed By: #### C MPX, CDP #### [address] [place], [place] [id number] Company Accountant: Jordon Tai MD Lymphocytes/100 WBC (Bld) 25 % Normal 24-43 [facility] Comment on above: Performed By: #### C MPX, CDP #### [address] [place], [place] 0800483 Company Accountant: Jordon Tai MD MCH (RBC) [Entitic mass] 29.7 pg Normal 25.2-33.5 [facility] Comment on above: Performed By: #### C MPX, CDP #### [address] [place], [place] [address]158783 Company Accountant: Jordon Tai MD MCHC (RBC) [Mass/Vol] 34.1 g/dL Normal 28.4-34.8 [facility] Comment on above: Performed By: #### C MPX, CDP #### [facility] [address] [place] [address] Company Accountant: Jordon Tai MD MCV (RBC) [Entitic vol] 87.1 fL Normal 82.6-102.9 [facility] Comment on above: Performed By: #### C MPX, CDP #### [facility] [address] [place], [place] [id number] Company Accountant: Jordon Tai MD Monocytes (Bld) [#/Vol] 0.71 10*3/uL Normal 0.10-1.20 [facility] Comment on above: Performed By: #### C MPX, CDP #### [address] [place], [place] [id number] Company Accountant: Jordon Tai MD Monocytes/100 WBC (Bld) 9 % Normal 3-12 [facility] Comment on above: Performed By: #### C MPX, CDP #### [address] [place], [place] [phone] Company Accountant: Jordon Tai MD Neutrophil (Seg) 64 % Normal 36-65 [facility] Comment on above: Performed By: #### C MPX, CDP #### [address] [place], [facility]83 Company Accountant: Jordon Tai MD NRBC Automated 0.0 per 100 WBC Normal 0.0 [facility] Comment on above: Performed By: #### C MPX, CDP #### [address] [place], [facility]83 Company Accountant: Jordon Tai MD Platelet mean volume (Bld) [Entitic vol] 9.5 fL Normal 8.1-13.5 [facility] Comment on above: Performed By: #### C MPX, CDP #### [address] [place], [place] [phone] Company Accountant: Jordon Tai MD Platelets (Bld) [#/Vol] 243 10*3/uL Normal 138-453 [facility] Comment on above: Performed By: #### C MPX, CDP #### [facility] [address] [place], [place] [phone] Company Accountant: Jordon Tai MD RBC (Bld) [#/Vol] 4.27 10*6/uL Normal 3.95-5.11 [facility] Comment on above: Performed By: #### C MPX, CDP #### [facility] [address] [place], [place] [phone] Company Accountant: Jordon Tai MD WBC (Bld) [#/Vol] 8.1 10*3/uL Normal 3.5-11.3 [facility] Comment on above: Performed By: #### C MPX, CDP #### [facility] [address] [place], [place] [id number] Company Accountant: Jordon Tai MD Comp Metabolic Pr/rfx MGon 0 - Albumin [Mass/Vol] 3.8 g/dL Normal 3.5-5.2 [facility] Comment on above: Performed By: #### C MPX, CDP #### [facility] [address] [place], [place] [phone] Company Accountant: Jordon Tai MD Albumin/Glob Ratio 1.4 Normal 1.0-2.5 [facility] Comment on above: Performed By: #### C MPX, CDP #### [facility] [address] [place] [address] Company Accountant: Jordon Tai MD Alkaline Phos 171 U/L High 35-104 [facility] Comment on above: Performed By: #### C MPX, CDP #### [facility] [address] [place], [place] [phone] Company Accountant: Jordon Tai MD ALT [Catalytic activity/Vol] 73 U/L High 5-33 [facility] Comment on above: Performed By: #### C MPX, CDP #### [facility] [address] [place], [place] [id number] Company Accountant: Jorodn Tai MD Anion gap [Moles/Vol] 13 mmol/L Normal 9-17 [facility] Comment on above: Performed By: #### C MPX, CDP #### [facility] [address] [place], [place] [id number] Company Accountant: Jordon Tai MD AST [Catalytic activity/Vol] 65 U/L High <32 [facility] Comment on above: Performed By: #### C MPX, CDP #### [facility] [address] [place], [place] [id number] Company Accountant: Jordon Tai MD Bilirubin [Mass/Vol] 0.7 mg/dL Normal 0.3-1.[address] [facility] Comment on above: Performed By: #### C MPX, CDP #### [facility] [address] [place], [place] [id number] Company Accountant: Jordon Tai MD BUN/CRE Ratio 10 Normal 9-20 [facility] Comment on above: Performed By: #### C MPX, CDP #### [facility] [address] [place], [place] [id number] Company Accountant: Jordon Tai MD Calcium [Mass/Vol] 8.7 mg/dL Normal 8.6-10.4 [facility] Comment on above: Performed By: #### C MPX, CDP #### [facility] [address] [place], [place] [id number] Company Accountant: Jordon Tai MD Chloride [Moles/Vol] 99 mmol/L Normal 98-[address] [facility] Comment on above: Performed By: #### C MPX, CDP #### [facility] [address] [place] [address] Company Accountant: Jordon Tai MD CO2 [Moles/Vol] 27 mmol/L Normal 20-31 [facility] Comment on above: Performed By: #### C MPX, CDP #### [facility] [address] [place] [address] Company Accountant: Jordon Tai MD Creatinine [Mass/Vol] 0.6 mg/dL Normal 0.5-0.9 [facility] Comment on above: Performed By: #### C MPX, CDP #### [facility] [address] [place] [address] Company Accountant: Jordon Tai MD GFR/1.73 sq M.predicted among non-blacks MDRD (S/P/Bld) [Vol rate/Area] mL/min/{1.73_m2} Normal >60 [facility] Comment on above: Result Comment: These [...] Performed By: #### C MPX, CDP #### [facility] [address] [place] [address] Company Accountant: Jordon Tai MD Glucose [Mass/Vol] 92 mg/dL Normal 70-99 [facility] Comment on above: Performed By: #### C MPX, CDP #### [facility] [address] [place] [address] Company Accountant: Jordon Tai MD Potassium [Moles/Vol] 3.9 mmol/L Normal 3.7-5.3 [facility] Comment on above: Performed By: #### C MPX, CDP #### [facility] [address] [place] [address] Company Accountant: Jordon Tai MD Protein [Mass/Vol] 6.5 g/dL Normal 6.4-8.3 [facility] Comment on above: Performed By: #### C MPX, CDP #### [facility] [address] [place], [place] [id number] Company Accountant: Jordon Tai MD Sodium [Moles/Vol] 139 mmol/L Normal 135-144 [facility] Comment on above: Performed By: #### C MPX, CDP #### [address] [place] [address] Company Accountant: Jordon Tai MD Urea nitrogen [Mass/Vol] 6 mg/dL Normal 6-20 [facility] Comment on above: Performed By: #### C MPX, CDP #### [address] [place] [address] Company Accountant: Jordon Tai MD Surgical Pathology Reporton 08-17-2023 Surgical Pathology Report (NOTE) Path Number: [id number] -- Diagnosis -- A. STOMACH, ANTRUM, BIOPSIES: - MILD CHRONIC GASTRITIS. - NEGATIVE FOR HELICOBACTER PYLORI INFECTION AND INTESTINAL METAPLASIA. B. STOMACH, BODY, BIOPSY: - BENIGN/UNREMARKABLE GASTRIC MUCOSA. C. ESOPHAGUS, BIOPSIES: - BENIGN/UNREMARKABLE SQUAMOUS MUCOSA. Guero Jones M.D. Electronically Signed Out sls08/18/2023 Clinical Information Pre-Op Diagnosis: ABDOMINAL PAIN, UNSPECIFIED [...] Description A-C. Microscopic examination performed. Processing Lab: [address] [id number] Interpretation Performed at [address] [id number] SURGICAL PATHOLOGY CONSULTATION Patient Name: MIKE SHARIF [facility] Rec: [id number] [facility] ANATOMIC PATHOLOGY [facility]. [place], [place] [id number] Normal [facility] CBC with Diffon 08-16-2023 Abs. Basophil 0.03 k/uL Normal 0.00-0.20 [facility] Comment on above: Performed By: #### C DP, LIP, CP, TROPI #### [address] [place] [address] Company Accountant: Jordon Tai MD Abs.Imm.Granulocyte 0.06 k/uL Normal 0.00-0.30 [facility] Comment on above: Performed By: #### C DP, LIP, CP, TROPI #### [facility] [address] [place] [address] [place] [address] Company Accountant: Jordon Tai MD Abs.Neutrophil (Seg) 5.71 k/uL Normal 1.50-8.[address] [facility] Comment on above: Performed By: #### C DP, LIP, CP, TROPI #### [facility] [address] [place] [address] [place] [address] Company Accountant: Jordon Tai MD Basophils/100 WBC (Bld) 0 % Normal 0-2 [facility] Comment on above: Performed By: #### C DP, LIP, CP, TROPI #### [address] [place], [place] [id number] Company Accountant: Jordon Tai MD Eosinophils (Bld) [#/Vol] 0.07 10*3/uL Normal 0.00-0.44 [facility] Comment on above: Performed By: #### C DP, LIP, CP, TROPI #### [address] [place], [place] [id number] Company Accountant: Jordon Tai MD Eosinophils/100 WBC (Bld) 1 % Normal 1-4 [facility] Comment on above: Performed By: #### C DP, LIP, CP, TROPI #### [address] [place], [facility]83 Company Accountant: Jordon Tai MD Erythrocyte distribution width (RBC) [Ratio] 11.9 % Normal 11.8-14.4 [facility] Comment on above: Performed By: #### C DP, LIP, CP, TROPI #### [address] [place], [facility]83 Company Accountant: Jordon Tai MD Hematocrit (Bld) [Volume fraction] 39.3 % Normal 36.3-47.1 [facility] Comment on above: Performed By: #### C DP, LIP, CP, TROPI #### [address] [place], [place] [id number] Company Accountant: Jordon Tai MD Hemoglobin (Bld) [Mass/Vol] 13.4 g/dL Normal 11.9-15.1 [facility] Comment on above: Performed By: #### C DP, LIP, CP, TROPI #### [address] [place], [facility]83 Company Accountant: Jordon Tai MD Immature granulocytes/100 WBC (Bld) 1 % High 0 [facility] Comment on above: Performed By: #### C DP, LIP, CP, TROPI #### [facility] [address] [place], [place] [id number] Company Accountant: Jordon Tai MD Lymphocytes (Bld) [#/Vol] 2.71 10*3/uL Normal 1.10-3.70 [facility] Comment on above: Performed By: #### C DP, LIP, CP, TROPI #### [address] [place] [address] Company Accountant: Jordon Tai MD Lymphocytes/100 WBC (Bld) 29 % Normal 24-43 [facility] Comment on above: Performed By: #### C DP, LIP, CP, TROPI #### [address] [place], [place] [id number] Company Accountant: Jordon Tai MD MCH (RBC) [Entitic mass] 29.5 pg Normal 25.2-33.5 [facility] Comment on above: Performed By: #### C DP, LIP, CP, TROPI #### [address] [place] [address] Company Accountant: Jordon Tai MD MCHC (RBC) [Mass/Vol] 34.1 g/dL Normal 28.4-34.8 [facility] Comment on above: Performed By: #### C DP, LIP, CP, TROPI #### [address] [place] [address] Company Accountant: Jordon Tai MD MCV (RBC) [Entitic vol] 86.6 fL Normal 82.6-102.9 [facility] Comment on above: Performed By: #### C DP, LIP, CP, TROPI #### [address] [place] [address] Company Accountant: Jordon Tai MD Monocytes (Bld) [#/Vol] 0.85 10*3/uL Normal 0.10-1.20 [facility] Comment on above: Performed By: #### C DP, LIP, CP, TROPI #### [facility] [address] [place] [address] [place] [address] Company Accountant: Jordon Tai MD Monocytes/100 WBC (Bld) 9 % Normal 3-12 [facility] Comment on above: Performed By: #### C DP, LIP, CP, TROPI #### [address] [place] [address] Company Accountant: Jordon Tai MD Neutrophil (Seg) 60 % Normal 36-65 [facility] Comment on above: Performed By: #### C DP, LIP, CP, TROPI #### [address] [place], [place] [address] Company Accountant: Jordon Tai MD NRBC Automated 0.0 per 100 WBC Normal 0.0 [facility] Comment on above: Performed By: #### C DP, LIP, CP, TROPI #### [address] [place], [facility]83 Company Accountant: Jordon Tai MD Platelet mean volume (Bld) [Entitic vol] 9.3 fL Normal 8.1-13.5 [facility] Comment on above: Performed By: #### C DP, LIP, CP, TROPI #### [address] [place], [place] [id number] Company Accountant: Jordon Tai MD Platelets (Bld) [#/Vol] 271 10*3/uL Normal 138-453 [facility] Comment on above: Performed By: #### C DP, LIP, CP, TROPI #### [address] [place], [facility]83 Company Accountant: Jordon Tai MD RBC (Bld) [#/Vol] 4.54 10*6/uL Normal 3.95-5.11 [facility] Comment on above: Performed By: #### C DP, LIP, CP, TROPI #### [facility] [address] [place] [address] Company Accountant: Jordon Tai MD WBC (Bld) [#/Vol] 9.4 10*3/uL Normal 3.5-11.3 [facility] Comment on above: Performed By: #### C DP, LIP, CP, TROPI #### [facility] [address] [place] [address] Company Accountant: Jordon Tai MD CT ABDOMEN PELVIS W [...] Davie White MD 08/16/23 Final result Normal [facility] Comp Metabolic Profon 2023 Albumin [Mass/Vol] 4.2 g/dL Normal 3.5-5.2 [facility] Comment on above: Performed By: #### C DP, LIP, CP, TROPI #### [facility] [address] [place] [address] [place]. [place], [place] [phone] Company Accountant: Jordon Tai MD Albumin/Glob Ratio 1.4 Normal 1.0-2.5 [facility] Comment on above: Performed By: #### C DP, LIP, CP, TROPI #### [address] [place] [address] Company Accountant: Jordon Tai MD Alkaline Phos 117 U/L High 35-104 [facility] Comment on above: Performed By: #### C DP, LIP, CP, TROPI #### [facility] [address] [place] [address] [place], [place] [phone] Company Accountant: Jordon Tai MD ALT [Catalytic activity/Vol] 37 U/L High 5-33 [facility] Comment on above: Performed By: #### C DP, LIP, CP, TROPI #### [facility] [address] [place] [address] [place] [address] Company Accountant: Jordon Tai MD Anion gap [Moles/Vol] 12 mmol/L Normal 9-17 [facility] Comment on above: Performed By: #### C DP, LIP, CP, TROPI #### [facility] [address] [place], [place] [phone] Company Accountant: Jordon Tai MD AST [Catalytic activity/Vol] 20 U/L Normal <32 [facility] Comment on above: Performed By: #### C DP, LIP, CP, TROPI #### [facility] [address] [place], [place] [id number] Company Accountant: Jordon Tai MD Bilirubin [Mass/Vol] 0.4 mg/dL Normal 0.3-1.[address] [facility] Comment on above: Performed By: #### C DP, LIP, CP, TROPI #### [address] [place], [place] [id number] Company Accountant: Jordon Tai MD BUN/CRE Ratio 9 Normal 9-20 [facility] Comment on above: Performed By: #### C DP, LIP, CP, TROPI #### [address] [place], [place] [id number] Company Accountant: Jordon Tai MD Calcium [Mass/Vol] 9.1 mg/dL Normal 8.6-10.4 [facility] Comment on above: Performed By: #### C DP, LIP, CP, TROPI #### [address] [place], [place] [id number] Company Accountant: Jordon Tai MD Chloride [Moles/Vol] 98 mmol/L Normal 98-[address] [facility] Comment on above: Performed By: #### C DP, LIP, CP, TROPI #### [facility] [address] [place], [place] [id number] Company Accountant: Jordon Tai MD CO2 [Moles/Vol] 28 mmol/L Normal 20-31 [facility] Comment on above: Performed By: #### C DP, LIP, CP, TROPI #### [address] [place] [address] Company Accountant: Jordon Tai MD Creatinine [Mass/Vol] 0.8 mg/dL Normal 0.5-0.9 [facility] Comment on above: Performed By: #### C DP, LIP, CP, TROPI #### [facility] [address] [place] [address] Company Accountant: Jordon Tai MD GFR/1.73 sq M.predicted among non-blacks MDRD (S/P/Bld) [Vol rate/Area] mL/min/{1.73_m2} Normal >60 [facility] Comment on above: Result Comment: These [...] #### C DP, LIP, CP, TROPI #### [address] [place] [address] Company Accountant: Jordon Tai MD Glucose [Mass/Vol] 87 mg/dL Normal 70-99 [facility] Comment on above: Performed By: #### C DP, LIP, CP, TROPI #### [address] [place], [facility]83 Company Accountant: Jordon Tai MD Potassium [Moles/Vol] 3.3 mmol/L Low 3.7-5.3 [facility] Comment on above: Performed By: #### C DP, LIP, CP, TROPI #### [address] [place] [address] Company Accountant: Jordon Tai MD Protein [Mass/Vol] 7.1 g/dL Normal 6.4-8.3 [facility] Comment on above: Performed By: #### C DP, LIP, CP, TROPI #### [facility] [address] [place] [address] Company Accountant: Jordon Tai MD Sodium [Moles/Vol] 138 mmol/L Normal 135-144 [facility] Comment on above: Performed By: #### C DP, LIP, CP, TROPI #### [facility] [address] [place] [address] Company Accountant: Jordon Tai MD Urea nitrogen [Mass/Vol] 7 mg/dL Normal 6-20 [facility] Comment on above: Performed By: #### C DP, LIP, CP, TROPI #### [address] [place] [address] Company Accountant: Jordon Tai MD HCG, ,Urineon 08-16 Beta HCG ( test) Ql (U) Negative Normal NEG [facility] Comment on above: Result Comment: Spec imens with hCG levels near the threshold of the test (25 mIU/mL) may give a negative or indeterminate result. In such cases, another test should be performed with a new specimen in 48-72 hours. If early is suspected clinically in this setting, correlation with quantitative serum b-hCG level is suggested. [facility] has confirmed the use of plasma for this test. This has not been cleared or approved by the U.S. Food and Drug Administration. The FDA has determined that such clearance is not necessary. Performed By: #### U AMIC, [facility] #### [facility] [address] [place] [address] [place] [address] Company Accountant: Jordon Tai MD Lactic Acidon 7 Lactate [Moles/Vol] 1.3 mmol/L Normal 0.5-2.2 [facility] Comment on above: Performed By: #### C DP, LIP, CP, TROPI #### [facility] [address] [place] [address] Company Accountant: Jordon Tai MD Lipaseon 6 Lipase [Catalytic activity/Vol] 24 U/L Normal 13-60 [facility] Comment on above: Performed By: #### C DP, LIP, CP, TROPI #### [facility] [address] [place] [address] Company Accountant: Jordon Tai MD Troponinon 08-16-2023 Troponin, High Sens <6 Normal 0-14 [facility] Comment on above: Result Comment: High Sensitivity Troponin values cannot be compared with other Troponin methodologies. Performed By: #### C DP, LIP, CP, TROPI #### [facility] [address] [place], [place] [phone] Company Accountant: Jordon Tai MD Urinalysis w/ Microon Bacteria TRACE Abnormal NONE [facility] Comment on above: Performed By: #### B MP, CBC #### [facility] [address] [place], [place] [id number] Company Accountant: Jordon Tai MD Bilirubin, SemiQt,Ur Negative Normal NEG [facility] Comment on above: Performed By: #### B MP, CBC #### [facility] [address] [place] [address] Company Accountant: Jordon Tai MD Blood, Urine Negative Normal NEG [facility] Comment on above: Performed By: #### B MP, CBC #### [facility] [address] [place], [place] [id number] Company Accountant: Jordon Tai MD Clarity (U) Clear Normal CLEAR [facility] Comment on above: Performed By: #### B MP, CBC #### [facility] [address] [place] [address] Company Accountant: Jordon Tai MD Color (U) Yellow Normal YEL [facility] Comment on above: Performed By: #### B MP, CBC #### [facility] [address] [place], [place] [id number] Company Accountant: Jordon Tai MD Epithelial cells LM Ql (Urine sed) 0 TO 2 Normal 0-25 [facility] Comment on above: Performed By: #### B MP, CBC #### [facility] [address] [place], [place] [id number] Company Accountant: Jordon Tai MD Glucose Ql (U) Negative Normal NEG [facility] Comment on above: Performed By: #### B MP, CBC #### [facility] [address] [place], [place] [id number] Company Accountant: Jordon Tai MD Ketones Ql (U) Negative Normal NEG [facility] Comment on above: Performed By: #### B MP, CBC #### [facility] [address] [place], [place] [phone] Company Accountant: Jordon Tai MD Leukocyte esterase Test strip Ql (U) Negative Normal NEG [facility] Comment on above: Performed By: #### B MP, CBC #### [facility] [address] [place] [address] [place]. [place], [place] [phone] Company Accountant: Jordon Tai MD Nitrite,Ur Negative Normal [facility] Comment on above: Performed By: #### B MP, CBC #### [facility] [address] [place], [place] [id number] Company Accountant: Jordon Tai MD PH,Ur 6.0 Normal 5.0-9.0 [facility] Comment on above: Performed By: #### B MP, CBC #### [facility] [address] [place], [place] [id number] Company Accountant: Jordon Tai MD Protein Ql (U) Negative Normal NEG [facility] Comment on above: Performed By: #### B MP, CBC #### [facility] [address] [place], [place] [phone] Company Accountant: Jordon Tai MD Spec. [place],Ur 1.010 Normal 1.010-1.02 0 [facility] Comment on above: Performed By: #### B MP, CBC #### [facility] [address] [place], [place] [phone] Company Accountant: Jordon Tai MD Urine RBC's 0 TO 2 Normal 0-2 [facility] Comment on above: Performed By: #### B MP, CBC #### [facility] [address] [place], [place] [phone] Company Accountant: Jordon Tai MD Urine WBC's 0 TO 2 Normal 0-5 [facility] Comment on above: Performed By: #### B MP, CBC #### [facility] [address] [place], [place] [phone] Company Accountant: Jordon Tai MD Urobilinogen,Ur Normal Normal 0.0-1.0 [facility] Comment on above: Performed By: #### B MP, CBC #### [facility] [address] [place] [address] [place] [address] Company Accountant: Jordon Tai MD CT ABDOMEN PELVIS W [...] Viri Frey MD 08/13/23 Final result Normal [facility] CBC with Auto Differentialon 08-12-2023 Basophils (Bld) [#/Vol] 0.06 10*3/uL [facility] Basophils/100 WBC (Bld) 1 % 0 - 2 % B [facility] Eosinophils (Bld) [#/Vol] 0.11 10*3/uL [facility] Eosinophils/100 WBC (Bld) 1 % 1 - 4 % [facility] Erythrocyte distribution width (RBC) [Ratio] 11.9 % 11.8 - 14.4 % [facility] Hematocrit (Bld) [Volume fraction] 40.3 % 36.3 - 47.1 % [facility] Hemoglobin (Bld) [Mass/Vol] 14.3 g/dL 11.9 - 15.1 g/dL [facility] Immature granulocytes (Bld) [#/Vol] 0.04 10*3/uL [facility] Immature granulocytes/100 WBC (Bld) 0 % 0 [facility] Interpretation and review of laboratory results Abnormal [facility] Lymphocytes/100 WBC (Bld) 31 % 24 - 43 % [facility] Lymphocytes/100 WBC (Bld) 3.27 % [facility] MCH (RBC) [Entitic mass] 30.0 pg 25.2 - 33.5 pg [facility] MCHC (RBC) [Mass/Vol] 35.5 g/dL High 28.4 - 34.8 g/dL [facility] MCV (RBC) [Entitic vol] 84.5 fL 82.6 - 102.9 fL [facility] Monocytes/100 WBC (Bld) 7 % 3 - 12 % B ON [facility] Monocytes/100 WBC (Bld) 0.69 % [facility] Neutrophils/100 WBC (Bld) 60 % 36 - 65 % [facility] Nucleated RBC/100 WBC (Bld) [Ratio] 0.0 % 0.0 per 100 WBC [facility] Platelet mean volume (Bld) [Entitic vol] 9.3 fL 8.1 - 13.5 fL [facility] Platelets (Bld) [#/Vol] 381 10*3/uL [facility] RBC (Bld) [#/Vol] 4.77 10*6/uL 3.95 - 5.11 m/uL [facility] Segmented neutrophils/100 WBC (Bld) 6.23 % [facility] WBC other (Bld) [#/Vol] 10.4 B ON [facility] CBC with Diffon 08-12-2023 Abs. Basophil 0.06 k/uL Normal 0.00-0.20 [facility] Comment on above: Performed By: #### C DP, LIP, CP, TROPI #### [facility] [address] [place] [address] [place] [address] Company Accountant: Jordon Tai MD Abs.Imm.Granulocyte 0.04 k/uL Normal 0.00-0.30 [facility] Comment on above: Performed By: #### C DP, LIP, CP, TROPI #### [facility] [address] [place] [address] Company Accountant: Jordon Tai MD Abs.Neutrophil (Seg) 6.23 k/uL Normal 1.50-8.[address] [facility] Comment on above: Performed By: #### C DP, LIP, CP, TROPI #### [facility] [address] [place] [address] Company Accountant: Jordon Tai MD Basophils/100 WBC (Bld) 1 % Normal 0-2 [facility] Comment on above: Performed By: #### C DP, LIP, CP, TROPI #### [address] [place], [place] [phone] Company Accountant: Jordon Tai MD Eosinophils (Bld) [#/Vol] 0.11 10*3/uL Normal 0.00-0.44 [facility] Comment on above: Performed By: #### C DP, LIP, CP, TROPI #### [address] [place] [address] Company Accountant: Jordon Tai MD Eosinophils/100 WBC (Bld) 1 % Normal 1-4 [facility] Comment on above: Performed By: #### C DP, LIP, CP, TROPI #### [address] [place], [facility]83 Company Accountant: Jordon Tai MD Erythrocyte distribution width (RBC) [Ratio] 11.9 % Normal 11.8-14.4 [facility] Comment on above: Performed By: #### C DP, LIP, CP, TROPI #### [address] [place], [place] [id number] Company Accountant: Jordon Tai MD Hematocrit (Bld) [Volume fraction] 40.3 % Normal 36.3-47.1 [facility] Comment on above: Performed By: #### C DP, LIP, CP, TROPI #### [address] [place], [place] [id number] Company Accountant: Jordon Tai MD Hemoglobin (Bld) [Mass/Vol] 14.3 g/dL Normal 11.9-15.1 [facility] Comment on above: Performed By: #### C DP, LIP, CP, TROPI #### [address] [place], [facility]83 Company Accountant: Jordon Tai MD Immature granulocytes/100 WBC (Bld) 0 % Normal 0 [facility] Comment on above: Performed By: #### C DP, LIP, CP, TROPI #### [address] [place], [facility]83 Company Accountant: Jordon Tai MD Lymphocytes (Bld) [#/Vol] 3.27 10*3/uL Normal 1.10-3.70 [facility] Comment on above: Performed By: #### C DP, LIP, CP, TROPI #### [address] [place], [facility] Company Accountant: Jordon Tai MD Lymphocytes/100 WBC (Bld) 31 % Normal 24-43 [facility] Comment on above: Performed By: #### C DP, LIP, CP, TROPI #### [address] [place], [facility] Company Accountant: Jordon Tai MD MCH (RBC) [Entitic mass] 30.0 pg Normal 25.2-33.5 [facility] Comment on above: Performed By: #### C DP, LIP, CP, TROPI #### [address] [place], [facility]83 Company Accountant: Jordon Tai MD MCHC (RBC) [Mass/Vol] 35.5 g/dL High 28.4-34.8 [facility] Comment on above: Performed By: #### C DP, LIP, CP, TROPI #### [address] [place] [address] Company Accountant: Jordon Tai MD MCV (RBC) [Entitic vol] 84.5 fL Normal 82.6-102.9 [facility] Comment on above: Performed By: #### C DP, LIP, CP, TROPI #### [address] [place] [id number] Company Accountant: Jordon Tai MD Monocytes (Bld) [#/Vol] 0.69 10*3/uL Normal 0.10-1.20 [facility] Comment on above: Performed By: #### C DP, LIP, CP, TROPI #### [facility] [address] [place] [address] Dr. [place], [facility]83 Company Accountant: Jordon Tai MD Monocytes/100 WBC (Bld) 7 % Normal 3-12 [facility] Comment on above: Performed By: #### C DP, LIP, CP, TROPI #### [address] [place] [address] Company Accountant: Jordon Tai MD Neutrophil (Seg) 60 % Normal 36-65 [facility] Comment on above: Performed By: #### C DP, LIP, CP, TROPI #### [address] [place], [place] [address] Company Accountant: Jordon Tai MD NRBC Automated 0.0 per 100 WBC Normal 0.0 [facility] Comment on above: Performed By: #### C DP, LIP, CP, TROPI #### [address] Webb, [facility]83 Company Accountant: Jordon Tai MD Platelet mean volume (Bld) [Entitic vol] 9.3 fL Normal 8.1-13.5 [facility] Comment on above: Performed By: #### C DP, LIP, CP, TROPI #### [address] [place], [place] [id number] Company Accountant: Jordon Tai MD Platelets (Bld) [#/Vol] 381 10*3/uL Normal 138-453 [facility] Comment on above: Performed By: #### C DP, LIP, CP, TROPI #### [address] [place], [facility]83 Company Accountant: Jordon Tai MD RBC (Bld) [#/Vol] 4.77 10*6/uL Normal 3.95-5.11 [facility] Comment on above: Performed By: #### C DP, LIP, CP, TROPI #### [address] [place] [address] Company Accountant: Jordon Tai MD WBC (Bld) [#/Vol] 10.4 10*3/uL Normal 3.5-11.3 [facility] Comment on above: Performed By: #### C DP, LIP, CP, TROPI #### [address] [place] [address] Company Accountant: Jordon Tai MD Comp Metabolic Profon 2023 Albumin [Mass/Vol] 4.3 g/dL Normal 3.5-5.2 [facility] Comment on above: Performed By: #### C DP, LIP, CP, TROPI #### [address] [place], [place] [id number] Company Accountant: Jordon Tai MD ALT [Catalytic activity/Vol] 34 U/L High 5-33 [facility] Comment on above: Performed By: #### C DP, LIP, CP, TROPI #### [address] [place] [address] Company Accountant: Jordon Tai MD Anion gap [Moles/Vol] 16 mmol/L Normal 9-17 [facility] Comment on above: Performed By: #### C DP, LIP, CP, TROPI #### [address] [place] [address] Company Accountant: Jordon Tai MD AST [Catalytic activity/Vol] 21 U/L Normal <32 [facility] Comment on above: Performed By: #### C DP, LIP, CP, TROPI #### [address] [place], [place] [id number] Company Accountant: Jordon Tai MD Bilirubin [Mass/Vol] 0.4 mg/dL Normal 0.3-1.2 [facility] Comment on above: Performed By: #### C DP, LIP, CP, TROPI #### [address] [place], [place] [id number] Company Accountant: Jordon Tai MD Calcium [Mass/Vol] 9.0 mg/dL Normal 8.6-10.4 [facility] Comment on above: Performed By: #### C DP, LIP, CP, TROPI #### [address] [place], [place] [id number] Company Accountant: Jordon Tai MD Chloride [Moles/Vol] 96 mmol/L Low 98-107 [facility] Comment on above: Performed By: #### C DP, LIP, CP, TROPI #### [address] [place], [place] [id number] Company Accountant: Jordon Tai MD CO2 [Moles/Vol] 24 mmol/L Normal 20-[address] [facility] Comment on above: Performed By: #### C DP, LIP, CP, TROPI #### [address] [place] [address] Company Accountant: Jordon Tai MD Creatinine [Mass/Vol] 0.7 mg/dL Normal 0.5-0.9 [facility] Comment on above: Performed By: #### C DP, LIP, CP, TROPI #### [address] [place], [place] [id number] Company Accountant: Jordon Tai MD Glucose [Mass/Vol] 106 mg/dL High 70-99 [facility] Comment on above: Performed By: #### C DP, LIP, CP, TROPI #### [address] [place], [place] 7793483 Company Accountant: Jordon Tai MD Potassium [Moles/Vol] 3.3 mmol/L Low 3.7-5.3 [facility] Comment on above: Performed By: #### C DP, LIP, CP, TROPI #### [address] [place], [place] [id number] Company Accountant: Jordon Tai MD Protein [Mass/Vol] 7.3 g/dL Normal 6.4-8.3 [facility] Comment on above: Performed By: #### C DP, LIP, CP, TROPI #### [address] [place], [place] [id number] Company Accountant: Jordon Tai MD Sodium [Moles/Vol] 136 mmol/L Normal 135-144 [facility] Comment on above: Performed By: #### C DP, LIP, CP, TROPI #### [address] [place], [place] [id number] Company Accountant: Jordon Tai MD Urea nitrogen [Mass/Vol] 6 mg/dL Normal 6-20 [facility] Comment on above: Performed By: #### C DP, LIP, CP, TROPI #### [address] [place], [place] [id number] Company Accountant: Jordon Tai MD Albumin/Glob Ratio 1.4 Normal 1.0-2.5 [facility] Comment on above: Performed By: #### C DP, LIP, CP, TROPI #### [address] [place], [place] [id number] Company Accountant: Jordon Tai MD Alkaline Phos 111 U/L High 35-104 [facility] Comment on above: Performed By: #### C DP, LIP, CP, TROPI #### [address] [place], [place] [id number] Company Accountant: Jordon Tai MD BUN/CRE Ratio 9 Normal 9-20 [facility] Comment on above: Performed By: #### C CARMEN BEDOLLA CP, TROPI #### [facility] [address] [place] [address] Company Accountant: Jordon Tai MD GFR/1.73 sq M.predicted among non-blacks MDRD (S/P/Bld) [Vol rate/Area] mL/min/{1.73_m2} Normal >60 [facility] Comment on above: Result Comment: These [...] renal tubular secretion. Performed By: #### C CARMEN BEDOLLA CP, TROPI #### [facility] [address] [place] [address] Company Accountant: Jordon Tai MD Comprehensive Metabolic Pane misti 08-12-2023 Albumin/Globulin [Mass ratio] 1.4 {ratio} 1.0 - 2.5 [facility] ALP [Catalytic activity/Vol] 111 U/L High 35 - 104 U/L [facility] GFR/1.73 sq M.predicted MDRD (S/P/Bld) [Vol rate/Area] - PINF [facility] Comment on above: These results are [...] and review of laboratory results Abnormal [facility] Urea nitrogen/Creatinine [Mass ratio] 9 mg/mg 9 - [address] [facility] [employer] Lipaseon 08-12-2023 Lipase [Catalytic activity/Vol] 22 U/L Normal 13-60 [facility] Comment on above: Performed By: #### C DP, LIP, CP, TROPI #### [facility] [address] [place] [address] Company Accountant: Jordon Tai MD No Panel Informationon 08-12 [facility] Portable XR Chest AP single viewon 08-12-2023 No radiographic evid ence of acute cardiopulmonary disease. Chronic appearing coarse interstitial densities predominate perihilar regions and lung bases, typical of sequela from smoking or other previous infectious/inflammatory process. [facility] EXAMINATION: ONE XRAY VIEW OF THE [...] over the central mid upper left chest. [facility] Rickey Kwan MD - 08/12/2023 EXAMINATION: ONE XRAY VIEW [...] smoking or other previous infectious/inflammatory process. [facility] Radiology Study observation (narrative) [facility] Portable XR Chest AP single viewOrdered By: Rickey Kwan on 08-12-2023 [facility] Work Phone: Troponinon 08-12-2023 Troponin I.cardiac High sensitivity method [Mass/Vol] ng/L 0 - 14 ng/L [facility] Comment on above: High Sensitivity Tro ponin values cannot be compared with other Troponin methodologies. [facility] Troponin, High Sens <6 Normal 0-14 [facility] Comment on above: Result Comment: High Sensitivity Troponin values cannot be compared with other Troponin methodologies. Performed By: #### C DP, LIP, CP, TROPI #### [facility] [address] [place] [address] Company Accountant: Jordon Tai MD XR CHEST PORTABLEon 08-12-19 XR CHEST PORTABLE EXAMINATION: ONE XRAY VIEW [...] Rickey Kwan MD 08/12/23 Final result Normal [facility] Rapid Strep Screenon 024 Specimen source Nom (Unsp spec) .THROAT SWAB [facility] Strep A, Molecular Negative NEGATIVE [facility] Strep Group A, Rapidon 07-20 Strep A, Molecular Negative Normal NEG [facility] Comment on above: Performed By: #### C DP, LIP, CP, TROPI #### [facility] [address] [place] [address] Company Accountant: Jordon Tai MD Source .THROAT SWAB Normal [facility] Comment on above: Performed By: #### C DP, LIP, CP, TROPI #### [facility] [address] [place] [address] Company Accountant: Jordon Tai MD Lipid Profileon 04-29-2023 Cholesterol [Mass/Vol] 148 mg/dL Normal <200 [facility] Comment on above: Result Comment: Cholesterol Guidelines: <200 Desirable 200-240 Borderline >240 Undesirable Performed By: #### C DP, LIP, CP, TROPI #### [facility] [address] [place] [address] Dr. [place], [place] [id number] Company Accountant: Jordon Tai MD Cholesterol in HDL [Mass/Vol] 39 mg/dL Low >40 [facility] Comment on above: Result Comment: HDL Guidelines: <40 Undesirable 40-59 Borderline >59 Desirable Performed By: #### C DP, LIP, CP, TROPI #### [address] [place], [place] [id number] Company Accountant: Jordon Tai MD Cholesterol in LDL [Mass/Vol] 61 mg/dL Normal 0-130 [facility] Comment on above: Result Comment: LDL Guidelines: <100 Desirable 100-129 Near to/above Desirable 130-159 Borderline >159 Undesirable Direct (measured) LDL and calculated LDL are not interchangeable tests. Performed By: #### C DP, LIP, CP, TROPI #### [address] [place], [place] [id number] Company Accountant: Jordon Tai MD Cholesterol.total/Audelia sterol in HDL [Mass ratio] 3.8 {ratio} Normal <5 [facility] Comment on above: Performed By: #### C DP, LIP, CP, TROPI #### [facility] [address] [place] [address] [place] [address] Company Accountant: Jordon Tai MD Triglyceride [Mass/Vol] 240 mg/dL High <150 [facility] Comment on above: Result Comment: Triglyceride Guidelines: <150 Desirable 150-199 Borderline 200-499 High >499 Very high Based on AHA Guidelines for fasting triglyceride, April 2012. Performed By: #### C DP, LIP, CP, TROPI #### [facility] [address] [place] [address] Company Accountant: Jordon Tai MD Troponinon 04-29-2023 Troponin, High Sens <6 Normal 0-14 [facility] Comment on above: Result Comment: High Sensitivity Troponin values cannot be compared with other Troponin methodologies. Performed By: #### C DP, LIP, CP, TROPI #### [facility] [address] [place], [place] [phone] Company Accountant: Jordon Tai MD CBC with Diffon 04-24-2023 Abs. Basophil 0.04 k/uL Normal 0.00-0.20 [facility] Comment on above: Performed By: #### B MP, CBC #### [address] [place], [place] [address] Company Accountant: Jordon Tai MD Abs.Imm.Granulocyte <0.03 Normal 0.00-0.30 [facility] Comment on above: Performed By: #### B MP, CBC #### [address] [place], [place] [id number] Company Accountant: Jordon Tai MD Abs.Neutrophil (Seg) 3.01 k/uL Normal 1.50-8.[address] [facility] Comment on above: Performed By: #### B MP, CBC #### [facility] [address] [place] [address] Dr. [place], [place] [phone] Company Accountant: Jordon Tai MD Basophils/100 WBC (Bld) 1 % Normal 0-2 [facility] Comment on above: Performed By: #### B MP, CBC #### [address] [place], [place] [id number] Company Accountant: Jordon Tai MD Eosinophils (Bld) [#/Vol] 0.08 10*3/uL Normal 0.00-0.44 [facility] Comment on above: Performed By: #### B MP, CBC #### [facility] [address] [place] [address] Dr. [place], [place] [phone] Company Accountant: Jordon Tai MD Eosinophils/100 WBC (Bld) 1 % Normal 1-4 [facility] Comment on above: Performed By: #### B MP, CBC #### [address] [place], [facility]83 Company Accountant: Jordon Tai MD Erythrocyte distribution width (RBC) [Ratio] 11.8 % Normal 11.8-14.4 [facility] Comment on above: Performed By: #### B MP, CBC #### [address] [place] [phone] Company Accountant: Jordon Tai MD Hematocrit (Bld) [Volume fraction] 37.0 % Normal 36.3-47.1 [facility] Comment on above: Performed By: #### B MP, CBC #### [address] [place], [facility]83 Company Accountant: Jordon Tai MD Hemoglobin (Bld) [Mass/Vol] 13.1 g/dL Normal 11.9-15.1 [facility] Comment on above: Performed By: #### B MP, CBC #### [address] [place], [facility]83 Company Accountant: Jordon Tai MD Immature granulocytes/100 WBC (Bld) 0 % Normal 0 [facility] Comment on above: Performed By: #### B MP, CBC #### [address] [place] [phone] Company Accountant: Jordon Tai MD Lymphocytes (Bld) [#/Vol] 2.16 10*3/uL Normal 1.10-3.70 [facility] Comment on above: Performed By: #### B MP, CBC #### [facility] [address] [place], [place] [id number] Company Accountant: Jordon Tai MD Lymphocytes/100 WBC (Bld) 37 % Normal 24-43 [facility] Comment on above: Performed By: #### B MP, CBC #### [facility] [address] [place], [place] [phone] Company Accountant: Jordon Tai MD MCH (RBC) [Entitic mass] 31.3 pg Normal 25.2-33.5 [facility] Comment on above: Performed By: #### B MP, CBC #### [facility] [address] [place] [phone] Company Accountant: Jordon Tai MD MCHC (RBC) [Mass/Vol] 35.4 g/dL High 28.4-34.8 [facility] Comment on above: Performed By: #### B MP, CBC #### [address] [place], [facility]83 Company Accountant: Jordon Tai MD MCV (RBC) [Entitic vol] 88.5 fL Normal 82.6-102.9 [facility] Comment on above: Performed By: #### B MP, CBC #### [address] [place], [place] [phone] Company Accountant: Jordon Tai MD Monocytes (Bld) [#/Vol] 0.46 10*3/uL Normal 0.10-1.20 [facility] Comment on above: Performed By: #### B MP, CBC #### [facility] [address] [place], [place] [phone] Company Accountant: Jordon Tai MD Monocytes/100 WBC (Bld) 8 % Normal 3-12 [facility] Comment on above: Performed By: #### B MP, CBC #### [facility] [address] [place], [facility]83 Company Accountant: Jordon Tai MD Neutrophil (Seg) 52 % Normal 36-65 [facility] Comment on above: Performed By: #### B MP, CBC #### [facility] [address] [place], [place] [id number] Company Accountant: Jordon Tai MD NRBC Automated 0.0 per 100 WBC Normal 0.0 [facility] Comment on above: Performed By: #### B MP, CBC #### [facility] [address] [place], [place] 8203283 Company Accountant: Jordon Tai MD Platelet Count See Reflexed IPF Result Normal 138-453 [facility] Comment on above: Performed By: #### B MP, CBC #### [facility] [address] [place], [place] [phone] Company Accountant: Jordon Tai MD Platelet, Fluoresc. 205 k/uL Normal 138-453 [facility] Comment on above: Performed By: #### B MP, CBC #### [facility] [address] [place], [place] [phone] Company Accountant: Jordon Tai MD PLT, Immature Fract. 10.1 % Normal 1.1-10.[address] [facility] Comment on above: Performed By: #### B MP, CBC #### [address] [place], [place] [phone] Company Accountant: Jordon Tai MD RBC (Bld) [#/Vol] 4.18 10*6/uL Normal 3.95-5.11 [facility] Comment on above: Performed By: #### B MP, CBC #### [facility] [address] [place] [address] Company Accountant: Jordon Tai MD WBC (Bld) [#/Vol] 5.8 10*3/uL Normal 3.5-11.3 [facility] Comment on above: Performed By: #### B MP, CBC #### [facility] [address] [place] [address] Company Accountant: Jordon Tai MD CTA HEAD NECK W [...] reasonably achievable. This scan was analyzed using [employer] contact LVO. Identification of suspected findings is [...] Alejandro Keith MD 04/24/23 Final result Normal [facility] Comp Metabolic Pr/rfx MGon 1 0- Albumin [Mass/Vol] 3.9 g/dL Normal 3.5-5.2 [facility] Comment on above: Performed By: #### B MP, CBC #### [facility] [address] [place], [place] [id number] Company Accountant: Jordon Tai MD Albumin/Glob Ratio 1.5 Normal 1.0-2.5 [facility] Comment on above: Performed By: #### B MP, CBC #### [address] [place], [place] [id number] Company Accountant: Jordon Tai MD Alkaline Phos 101 U/L Normal 35-104 [facility] Comment on above: Performed By: #### B MP, CBC #### [facility] [address] [place] [address] Dr. [place], [place] [phone] Company Accountant: Jordon Tai MD ALT [Catalytic activity/Vol] 32 U/L Normal 5-33 [facility] Comment on above: Performed By: #### B MP, CBC #### [address] [place], [place] [phone] Company Accountant: Jordon Tai MD Anion gap [Moles/Vol] 13 mmol/L Normal 9-17 [facility] Comment on above: Performed By: #### B MP, CBC #### [facility] [address] [place] [address] Dr. [place], [place] [phone] Company Accountant: Jordon Tai MD AST [Catalytic activity/Vol] 23 U/L Normal <32 [facility] Comment on above: Performed By: #### B MP, CBC #### [facility] [address] [place], [place] [phone] Company Accountant: Jordon Tai MD Bilirubin [Mass/Vol] 0.3 mg/dL Normal 0.3-1.[address] [facility] Comment on above: Performed By: #### B MP, CBC #### [facility] [address] [place], [place] [phone] Company Accountant: Jordon Tai MD BUN/CRE Ratio 9 Normal 9-20 [facility] Comment on above: Performed By: #### B MP, CBC #### [facility] [address] [place], [place] [id number] Company Accountant: Jordon Tai MD Calcium [Mass/Vol] 9.0 mg/dL Normal 8.6-10.4 [facility] Comment on above: Performed By: #### B MP, CBC #### [facility] [address] [place], [place] [phone] Company Accountant: Jordon Tai MD Chloride [Moles/Vol] 104 mmol/L Normal 98-[address] [facility] Comment on above: Performed By: #### B MP, CBC #### [facility] [address] [place], [place] [id number] Company Accountant: Jordon Tai MD CO2 [Moles/Vol] 23 mmol/L Normal 20-31 [facility] Comment on above: Performed By: #### B MP, CBC #### [facility] [address] [place] [address] Company Accountant: Jordon Tai MD Creatinine [Mass/Vol] 0.7 mg/dL Normal 0.5-0.9 [facility] Comment on above: Performed By: #### B MP, CBC #### [facility] [address] [place] [address] Company Accountant: Jordon Tai MD GFR/1.73 sq M.predicted among non-blacks MDRD (S/P/Bld) [Vol rate/Area] mL/min/{1.73_m2} Normal >60 [facility] Comment on above: Result Comment: These [...] Performed By: #### B MP, CBC #### [facility] [address] [place] [address] Dr. [place], [place] [phone] Company Accountant: Jordon Tai MD Glucose [Mass/Vol] 108 mg/dL High 70-99 [facility] Comment on above: Performed By: #### B MP, CBC #### [address] [place] [id number] Company Accountant: Jordon Tai MD Potassium [Moles/Vol] 3.7 mmol/L Normal 3.7-5.3 [facility] Comment on above: Performed By: #### B MP, CBC #### [address] [place] [address] Company Accountant: Jordon Tai MD Protein [Mass/Vol] 6.5 g/dL Normal 6.4-8.3 [facility] Comment on above: Performed By: #### B RUPAL, CBC #### [address] [place] [address] Company Accountant: Jordon Tai MD Sodium [Moles/Vol] 140 mmol/L Normal 135-144 [facility] Comment on above: Performed By: #### B MP, CBC #### [facility] [address] [place] [address] [place] [address] Company Accountant: Jordon Tai MD Urea nitrogen [Mass/Vol] 6 mg/dL Normal 6-20 [facility] Comment on above: Performed By: #### B MP, CBC #### [address] [place] [address] Company Accountant: Jordon Tai MD Troponinon 04-24-2023 Troponin, High Sens 25 ng/L High 0-14 [facility] Comment on above: Result Comment: High Sensitivity Troponin values cannot be compared with other Troponin methodologies. Performed By: #### B MP, CBC #### [facility] [address] [place], [place] [id number] Company Accountant: Jordon Tai MD Basic Metabolic Profon 04-23 Anion gap [Moles/Vol] 13 mmol/L Normal 9-17 [facility] Comment on above: Performed By: #### C DP, LIP, CP, TROPI #### [address] [place] [address] Company Accountant: Jordon Tai MD BUN/CRE Ratio 6 Low 9-20 [facility] Comment on above: Performed By: #### C DP, LIP, CP, TROPI #### [facility] [address] [place] [address] Dr. [place], [place] [phone] Company Accountant: Jordon Tai MD Calcium [Mass/Vol] 9.4 mg/dL Normal 8.6-10.4 [facility] Comment on above: Performed By: #### C DP, LIP, CP, TROPI #### [address] [place], [place] [phone] Company Accountant: Jordon Tai MD Chloride [Moles/Vol] 102 mmol/L Normal 98-[address] [facility] Comment on above: Performed By: #### C DP, LIP, CP, TROPI #### [facility] [address] [place] [address] [place] [address] Company Accountant: Jordon Tai MD CO2 [Moles/Vol] 25 mmol/L Normal 20-31 [facility] Comment on above: Performed By: #### C DP, LIP, CP, TROPI #### [facility] [address] [place] [address] [place] [address] Company Accountant: Jordon Tai MD Creatinine [Mass/Vol] 0.7 mg/dL Normal 0.5-0.9 [facility] Comment on above: Performed By: #### C DP, LIP, CP, TROPI #### [facility] [address] [place] [address] Company Accountant: Jordon Tai MD GFR/1.73 sq M.predicted among non-blacks MDRD (S/P/Bld) [Vol rate/Area] mL/min/{1.73_m2} Normal >60 [facility] Comment on above: Result Comment: These [...] #### C DP, LIP, CP, TROPI #### [facility] [address] [place] [address] Company Accountant: Jordon Tai MD Glucose [Mass/Vol] 118 mg/dL High 70-99 [facility] Comment on above: Performed By: #### C DP, LIP, CP, TROPI #### [facility] [address] [place] [address] Company Accountant: Jordon Tai MD Potassium [Moles/Vol] 3.1 mmol/L Low 3.7-5.3 [facility] Comment on above: Performed By: #### C DP, LIP, CP, TROPI #### [facility] [address] [place] [address] Company Accountant: Jordon Tai MD Sodium [Moles/Vol] 140 mmol/L Normal 135-144 [facility] Comment on above: Performed By: #### C DP, LIP, CP, TROPI #### [facility] [address] [place], [facility] Company Accountant: Jordon Tai MD Urea nitrogen [Mass/Vol] 4 mg/dL Low 6-20 [facility] Comment on above: Performed By: #### C DP, LIP, CP, TROPI #### [address] [place], [facility]83 Company Accountant: Jordon Tai MD CBC with Diffon 04-23-2023 Abs. Basophil 0.03 k/uL Normal 0.00-0.20 [facility] Comment on above: Performed By: #### C DP, LIP, CP, TROPI #### [address] [place], [place] [address] Company Accountant: Jordon Tai MD Abs.Imm.Granulocyte 0.03 k/uL Normal 0.00-0.30 [facility] Comment on above: Performed By: #### C DP, LIP, CP, TROPI #### [address] [place], [place] [address] Company Accountant: Jordon Tai MD Abs.Neutrophil (Seg) 4.45 k/uL Normal 1.50-8.[address] [facility] Comment on above: Performed By: #### C DP, LIP, CP, TROPI #### [address] [place], [place] [address] Company Accountant: Jordon Tai MD Basophils/100 WBC (Bld) 0 % Normal 0-2 [facility] Comment on above: Performed By: #### C DP, LIP, CP, TROPI #### [address] [place], [facility]83 Company Accountant: Jrodon Tai MD Eosinophils (Bld) [#/Vol] 0.08 10*3/uL Normal 0.00-0.44 [facility] Comment on above: Performed By: #### C DP, LIP, CP, TROPI #### [address] [place], [facility]83 Company Accountant: Jordon Tai MD Eosinophils/100 WBC (Bld) 1 % Normal 1-4 [facility] Comment on above: Performed By: #### C DP, LIP, CP, TROPI #### [address] [place], [facility]83 Company Accountant: Jordon Tai MD Erythrocyte distribution width (RBC) [Ratio] 11.6 % Low 11.8-14.4 [facility] Comment on above: Performed By: #### C DP, LIP, CP, TROPI #### [address] [place], [place] [address] Company Accountant: Jordon Tai MD Hematocrit (Bld) [Volume fraction] 37.6 % Normal 36.3-47.1 [facility] Comment on above: Performed By: #### C DP, LIP, CP, TROPI #### [address] [place], [place] [address] Company Accountant: Jordon Tai MD Hemoglobin (Bld) [Mass/Vol] 13.5 g/dL Normal 11.9-15.1 [facility] Comment on above: Performed By: #### C DP, LIP, CP, TROPI #### [address] [place], [place] [address] Company Accountant: Jordon Tai MD Immature granulocytes/100 WBC (Bld) 0 % Normal 0 [facility] Comment on above: Performed By: #### C DP, LIP, CP, TROPI #### [address] [place], [facility]83 Company Accountant: Jordon Tai MD Lymphocytes (Bld) [#/Vol] 2.10 10*3/uL Normal 1.10-3.70 [facility] Comment on above: Performed By: #### C DP, LIP, CP, TROPI #### [facility] [address] [place] [address] Company Accountant: Jordon Tai MD Lymphocytes/100 WBC (Bld) 29 % Normal 24-43 [facility] Comment on above: Performed By: #### C DP, LIP, CP, TROPI #### [facility] [address] [place], [place] [address] Company Accountant: Jordon Tai MD MCH (RBC) [Entitic mass] 31.2 pg Normal 25.2-33.5 [facility] Comment on above: Performed By: #### C DP, LIP, CP, TROPI #### [address] [place] [address] Company Accountant: Jordon Tai MD MCHC (RBC) [Mass/Vol] 35.9 g/dL High 28.4-34.8 [facility] Comment on above: Performed By: #### C DP, LIP, CP, TROPI #### [address] [place], [facility]99 ( Company Accountant: Jordon Tai MD MCV (RBC) [Entitic vol] 86.8 fL Normal 82.6-102.9 [facility] Comment on above: Performed By: #### C DP, LIP, CP, TROPI #### [address] [place], [place] [address] Company Accountant: Jordon Tai MD Monocytes (Bld) [#/Vol] 0.57 10*3/uL Normal 0.10-1.20 [facility] Comment on above: Performed By: #### C DP, LIP, CP, TROPI #### [address] [place], [place] [id number] Company Accountant: Jordon Tai MD Monocytes/100 WBC (Bld) 8 % Normal 3-12 [facility] Comment on above: Performed By: #### C DP, LIP, CP, TROPI #### [facility] [address] [place] [address] Company Accountant: Jordon Tai MD Neutrophil (Seg) 62 % Normal 36-65 [facility] Comment on above: Performed By: #### C DP, LIP, CP, TROPI #### [facility] [address] [place], [place] [address] Company Accountant: Jordon Tai MD NRBC Automated 0.0 per 100 WBC Normal 0.0 [facility] Comment on above: Performed By: #### C DP, LIP, CP, TROPI #### [address] [place], [facility]83 Company Accountant: Jordon Tai MD Platelet mean volume (Bld) [Entitic vol] 9.9 fL Normal 8.1-13.5 [facility] Comment on above: Performed By: #### C DP, LIP, CP, TROPI #### [address] [place], [place] [address] Company Accountant: Jordon Tai MD Platelets (Bld) [#/Vol] 284 10*3/uL Normal 138-453 [facility] Comment on above: Performed By: #### C DP, LIP, CP, TROPI #### [address] [place], [place] [address] Company Accountant: Jordon Tai MD RBC (Bld) [#/Vol] 4.33 10*6/uL Normal 3.95-5.11 [facility] Comment on above: Performed By: #### C DP, LIP, CP, TROPI #### [address] [place], [place] [id number] Company Accountant: Jordon Tai MD WBC (Bld) [#/Vol] 7.3 10*3/uL Normal 3.5-11.3 [facility] Comment on above: Performed By: #### C DP, LIP, CP, TROPI #### [facility] [address] [place] [address] Company Accountant: Jordon Tai MD CT HEAD WO CONTRASTon [...] Reggie Rivera MD 04/23/23 Final result Normal [facility] Troponinon 04-23-2023 Troponin, High Sens <6 Normal 0-14 [facility] Comment on above: Result Comment: High Sensitivity Troponin values cannot be compared with other Troponin methodologies. Performed By: #### C DP, LIP, CP, TROPI #### [facility] [address] [place] [address] Company Accountant: Jordon Tai MD Troponin, High Sens <6 Normal 0-14 [facility] Comment on above: Result Comment: High Sensitivity Troponin values cannot be compared with other Troponin methodologies. Performed By: #### C DP, LIP, CP, TROPI #### [facility] [address] [place] [address] Company Accountant: Jordon Tai MD XR CHEST PORTABLEon 04-23-20 [...] Leonides Fernandez MD 04/23/23 Final result Normal [facility] C Fungalon 04-06-2023 C Fungal ---- Final No growth at 4 weeks. Normal [facility] Comment on above: Performed By: #### F C #### [facility] [address] [place] [id number] C ANAon 03-12-2023 C MANDY ---- Final No anaerobic growth after 72 hrs. Normal [facility] Comment on above: Performed By: #### A NAC #### [facility] [address] [place] [id number] C Woundon 03-10-2023 C Wound add gram stain Final Rare Normal skin ariane isolated Gram Stain Rare White Blood Cells No organisms seen. Normal [facility] Comment on above: Performed By: #### W DC #### [facility] (DEFAULT) [address] [place] [address] [facility] [address] [place] [address] No Panel Informationon 03-05 1. No acute osseous abnormality of the left wrist or the left hand. 2. No retained radiopaque foreign body. [facility] EXAMINATION: THREE XRAY VIEWS OF THE [...] of erosion. No retained radiopaque foreign body. [facility] Jordon Cesar MD - 03/05/2023 EXAMINATION: THREE XRAY VIEWS [...] hand. 2. No retained radiopaque foreign body. [facility] No Panel InformationOrdered By: Jordon Cesar on 03-05-2023 [facility] Work Phone: XR HAND LEFT (MIN 3 VIEWS)on 03-05-2023 Radiology Study observation (narrative) [facility] XR WRIST LEFT (MIN 3 VIEWS)o n 03-05-2023 Radiology Study observation (narrative) K[facility]IS [facility] CBC with Auto Differentialon 02-22-2023 Basophils (Bld) [#/Vol] 0.04 10*3/uL [facility] Basophils/100 WBC (Bld) 1 % 0 - 2 % [facility] Eosinophils (Bld) [#/Vol] 0.08 10*3/uL [facility] Eosinophils/100 WBC (Bld) 1 % 1 - 4 % [facility] Erythrocyte distribution width (RBC) [Ratio] 11.9 % 11.8 - 14.4 % [facility] Hematocrit (Bld) [Volume fraction] 34.6 % Low 36.3 - 47.1 % [facility] Hemoglobin (Bld) [Mass/Vol] 12.1 g/dL 11.9 - 15.1 g/dL [facility] Immature granulocytes (Bld) [#/Vol] [facility] Immature granulocytes/100 WBC (Bld) 0 % 0 [facility] Interpretation and review of laboratory results Abnormal [facility] Lymphocytes/100 WBC (Bld) 30 % 24 - 43 % [facility] Lymphocytes/100 WBC (Bld) 1.84 % [facility] MCH (RBC) [Entitic mass] 31.1 pg 25.2 - 33.5 pg [facility] MCHC (RBC) [Mass/Vol] 35.0 g/dL High 28.4 - 34.8 g/dL [facility] MCV (RBC) [Entitic vol] 88.9 fL 82.6 - 102.[address] [facility] Monocytes/100 WBC (Bld) 7 % 3 - 12 % B [facility] Monocytes/100 WBC (Bld) 0.45 % [facility] Neutrophils/100 WBC (Bld) 61 % 36 - 65 % [facility] Nucleated RBC/100 WBC (Bld) [Ratio] 0.0 % 0.0 per 100 WBC [facility] Platelet mean volume (Bld) [Entitic vol] 9.4 fL 8.1 - 13.5 fL [facility] Platelets (Bld) [#/Vol] 254 10*3/uL [facility] RBC (Bld) [#/Vol] 3.89 10*6/uL Low 3.95 - 5.11 m/uL [facility] Segmented neutrophils/100 WBC (Bld) 3.62 % [facility] WBC other (Bld) [#/Vol] 6.1 B ON [facility] CT ABDOMEN PELVIS W IV CONTR AST Additional Contrast? Noneon 02-22-2023 No acute abnormality in the abdomen or pelvis. [facility] EXAMINATION: CT OF THE ABDOMEN AND [...] pelvis 08/05/2021. HISTORY: ORDERING SYSTEM PROVIDED HISTORY: [facility] pain TECHNOLOGIST PROVIDED HISTORY: [facility] pain Decision Support Exception - unselect if [...] No acute osseous or soft tissue abnormality. [facility] Hiro Reza MD - 02/22/2023 EXAMINATION: CT OF THE [...] pelvis 08/05/2021. HISTORY: ORDERING SYSTEM PROVIDED HISTORY: Q pain TECHNOLOGIST PROVIDED HISTORY: R[facility] pain Decision [...] abnormality in the abdomen or pelvis. [facility] Radiology Study observation (narrative) [facility] CT ABDOMEN PELVIS W IV CONTR AST Additional Contrast? NoneOrdered By: Hiro Reza on 02-22-2023 [facility] Work Phone: Comprehensive Metabolic Pane misti 02-22-2023 Albumin [Mass/Vol] 4.4 g/dL 3.5 - 5.2 g/dL [facility] Albumin/Globulin [Mass ratio] 1.5 {ratio} 1.0 - 2.5 [facility] ALP [Catalytic activity/Vol] 95 U/L 35 - 104 U/L [facility] ALT [Catalytic activity/Vol] 23 U/L 5 - 33 U/L [facility] Anion gap [Moles/Vol] 12 mmol/L 9 - 17 mmol/L [facility] AST [Catalytic activity/Vol] 24 U/L NINF - 32 U/L [facility] Bilirubin [Mass/Vol] 0.6 mg/dL 0.3 - 1 .2 mg/dL [facility] Calcium [Mass/Vol] 9.2 mg/dL 8.6 - 10. 4 mg/dL [facility] Chloride [Moles/Vol] 103 mmol/L 98 - 10 7 mmol/L [facility] CO2 [Moles/Vol] 25 mmol/L 20 - 31 mmol/L [facility] Creatinine [Mass/Vol] 0.7 mg/dL 0.5 - 0.9 mg/dL [facility] GFR/1.73 sq M.predicted MDRD (S/P/Bld) [Vol rate/Area] - PINF [facility] Comment on above: These results are [...] mg/dL High 70 - 99 mg/dL [facility] Interpretation and review of laboratory results Abnormal [facility] Potassium [Moles/Vol] 3.3 mmol/L Low 3.7 - 5.3 mmol/L [facility] Protein [Mass/Vol] 7.3 g/dL 6.4 - 8.3 g/dL [facility] Sodium [Moles/Vol] 140 mmol/L 135 - 144 mmol/L [facility] Urea nitrogen [Mass/Vol] 9 mg/dL 6 - 20 mg/dL [facility] Urea nitrogen/Creatinine [Mass ratio] 13 mg/mg 9 - 20 [facility] Lactic Acidon 02-22-2023 Lactate (BldV) [Moles/Vol] 1.5 mmol/L 0.5 - 2.2 mmol/L [facility] Urinalysis with Microscopico n 02-22-2023 Bacteria LM Ql (Urine sed) TRACE Abnormal None [facility] Bilirubin Ql (U) Negative NEGATIVE [facility] Clarity (U) Clear Clear [facility] Color (U) Yellow Yellow [facility] Epithelial cells LM.HPF (Urine sed) [#/Area] 0 TO 2 [facility] Glucose Test strip (U) [Mass/Vol] Negative NEGATIVE mg/dL [facility] Hemoglobin Auto test strip Ql (U) Negative NEGATIVE [facility] Interpretation and review of laboratory results Abnormal [facility] Ketones (U) [Mass/Vol] Negative NEGAT [place] mg/dL [facility] Leukocyte esterase Test strip Ql (U) Negative NEGATIVE [facility] Nitrite Ql (U) Negative NEGATIVE [facility] pH (U) 6.5 [pH] 5.0 - 9.0 [facility] Protein (U) [Mass/Vol] Negative NEGAT [place] mg/dL [facility] RBC LM.HPF (Urine sed) [#/Area] None [facility] Specific gravity (U) [Rel density] Low 1.010 - 1.020 [facility] Urobilinogen Qn (U) Normal 0.0 - 1. 0 EU/dL [facility] WBC LM.HPF (Urine sed) [#/Area] None [facility] XR KNEE RIGHT (1-2 VIEWS)on 12-21-2022 No acute abnormality right knee. [facility] EXAMINATION: TWO XRAY VIEWS OF THE RIGHT KNEE 12/21/2022 11:35 am COMPARISON: Previous three-view study of the right knee from 05/01/2022 HISTORY: ORDERING SYSTEM PROVIDED HISTORY: Twisted TECHNOLOGIST PROVIDED HISTORY: Twisted FINDINGS: No fracture. No dislocation. No joint effusion. Mild unchanged degenerative findings. No destructive or blastic lesion. [facility] Jarred Kruse MD - 12/21/2022 EXAMINATION: TWO XRAY VIEWS OF THE RIGHT KNEE 12/21/2022 11:35 am COMPARISON: Previous three-view study of the right knee from 05/01/2022 HISTORY: ORDERING SYSTEM PROVIDED HISTORY: Twisted TECHNOLOGIST PROVIDED HISTORY: Twisted FINDINGS: No fracture. No dislocation. No joint effusion. Mild unchanged degenerative findings. No destructive or blastic lesion. IMPRESSION: No acute abnormality right knee. [employer] Phone: Radiology Study observation (narrative) [employer] Phone: XR KNEE RIGHT (1-2 VIEWS)Ord ered By: Jarred Kruse on 12-21-2022 [employer] Phone: XR SHOULDER LEFT (MIN 2 VIEW S)on 12-21-2022 No acute abnormality . [facility] EXAMINATION: 3 XRAY VIEWS OF THE [...] Cardiac stent and loop recorder again noted. [facility] Jarred Kruse MD - 12/21/2022 EXAMINATION: [...] recorder again noted. IMPRESSION: No acute abnormality. [employer] Phone: [employer] Phone: Radiology Study observation (narrative) [employer] Phone: XR WRIST LEFT (MIN 3 VIEWS)o n 06-05-2023 Unchanged wrist radiographs without acute abnormality. [facility] EXAMINATION: 3 XRAY VIEWS OF THE LEFT WRIST 12/21/2022 11:35 am COMPARISON: Previous three-view study of the left wrist from 2018 HISTORY: ORDERING SYSTEM PROVIDED HISTORY: Fall onto TECHNOLOGIST PROVIDED HISTORY: Fall onto FINDINGS: Carpal bones and alignment are maintained. Distal radius and ulna are intact. No acute fracture or dislocation. Slight degenerative change carpal 1st metacarpal joint space. [facility] Jarred Kruse MD - 12/21/2022 EXAMINATION: 3 XRAY VIEWS OF THE LEFT WRIST 12/21/2022 11:35 am COMPARISON: Previous three-view study of the left wrist from 2017 HISTORY: ORDERING SYSTEM PROVIDED HISTORY: Fall onto TECHNOLOGIST PROVIDED HISTORY: Fall onto FINDINGS: Carpal bones and alignment are maintained. Distal radius and ulna are intact. No acute fracture or dislocation. Slight degenerative change carpal 1st metacarpal joint space. IMPRESSION: Unchanged wrist radiographs without acute abnormality. [employer] Phone: [employer] Phone: Radiology Study observation (narrative) [employer] Phone: ECHO Complete 2D W Doppler W Coloron 11-18-2022 [facility] Transthoracic Echocardiography Report (TTE) Patient Name ADRIÁN Date of Study 11/18/2022 MIKE N Date of 1975 Gender Female Age 46 year(s) Race Room Number Height: 64 inch, 162.56 cm Corporate ID [id number] Weight: 200 pounds, 90.7 kg # Patient Acct [id number] BSA: 1.96 m^2 BMI: 34.33 # kg/m^2 MR # [id number] [employer]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 Procedure Date Date: 11/18/2022 Start: 01:26 PM Study Location: [facility] Indications:Chest pain. History / Tech. Comments: [...] Signature ---- ---- ---- Electronically signed by Ronan Rodriguez([facility] physician) on 11/18/2022 05:23 PM [...] TR Velocity: 1.89 m/s Peak TR Gradient: 14.34348 mmHg Diastology / Tissue Doppler Lateral Wall E' velocity:0.12 m/s Lateral Wall E/E':4.5 MHPN T [facility] Ronan Rodriguez MD - 11/18/2022 [facility] Transthoracic Echocardiography Report (TTE) Patient Name ADRIÁN Date of Study 11/18/2022 MIKE N Date of 1975 Gender Female Age 46 year(s) Race Room Number Height: 64 inch, 162.56 cm Corporate ID [id number] Weight: 200 pounds, 90.7 kg # Patient Acct [id number] BSA: 1.96 m^2 BMI: 34.33 # kg/m^2 MR # [id number] [employer]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 Procedure Date Date: 11/18/2022 Start: 01:26 PM Study Location: [facility] Indications:Chest pain. History / Tech. Comments: [...] TR Velocity: 1.89 m/s Peak TR Gradient: 14.27151 mmHg Diastology / Tissue Doppler Lateral Wall E' velocity:0.12 m/s Lateral Wall E/E':4.5 [employer] Work Phone: [employer] Work Phone: Basic Metabolic Panelon 02-0 Anion gap [Moles/Vol] 14 mmol/L 9 - 17 mmol/L [employer] Calcium [Mass/Vol] 9.3 mg/dL 8.6 - 10. 4 mg/dL [employer] Chloride [Moles/Vol] 100 mmol/L 98 - 10 7 mmol/L [employer] CO2 [Moles/Vol] 24 mmol/L 20 - 31 mmol/L [employer] Creatinine [Mass/Vol] 0.71 mg/dL 0.50 - 0.90 mg/dL [employer] GFR/1.73 sq M.predicted MDRD (S/P/Bld) [Vol rate/Area] - PINF [employer] Comment on above: These results are not [...] 127 mg/dL High 70 - 99 mg/dL [facility] [employer] Interpretation and review of laboratory results Abnormal [employer] Potassium [Moles/Vol] 3.5 mmol/L Low 3.7 - 5.3 mmol/L [facility] Sodium [Moles/Vol] 138 mmol/L 135 - 144 mmol/L [employer] Urea nitrogen [Mass/Vol] 7 mg/dL 6 - 20 mg/dL [facility] Urea nitrogen/Creatinine (Bld) [Mass ratio] 10 9 - 20 [facility] Basic to Comprehensive Upgra leslie 08-20-2022 Albumin [Mass/Vol] 4.3 g/dL 3.5 - 5.2 g/dL [facility] Albumin/Globulin [Mass ratio] 1.5 {ratio} 1.0 - 2.5 [facility] ALP [Catalytic activity/Vol] 90 U/L 35 - 104 U/L [facility] ALT [Catalytic activity/Vol] 66 U/L High 5 - 33 U/L [facility] AST [Catalytic activity/Vol] 52 U/L High NINF - 32 U/L [facility] Bilirubin [Mass/Vol] 0.3 mg/dL 0.3 - 1 .2 mg/dL [facility] Interpretation and review of laboratory results Abnormal [facility] Protein [Mass/Vol] 7.1 g/dL 6.4 - 8.3 g/dL [facility] CBC with Auto Differentialon 08-20-2022 Absolute Eos # 0.09 [facility] Absolute Immature Granulocyte [facility] Absolute Lymph # 2.66 [facility] Absolute [place] # 0.47 [facility] Basophils (Bld) [#/Vol] 0.06 10*3/uL [facility] Basophils/100 WBC (Bld) 1 % 0 - 2 % [facility] Eosinophils/100 WBC (Bld) 1 % 1 - 4 % [facility] Hematocrit (Bld) [Volume fraction] 35.8 % Low 36.3 - 47.1 % [facility] Hemoglobin (Bld) [Mass/Vol] 12.8 g/dL 11.9 - 15.1 g/dL [facility] Immature granulocytes/100 WBC (Bld) 0 % 0 [facility] Interpretation and review of laboratory results Abnormal [facility] Lymphocytes/100 WBC (Bld) 35 % 24 - 43 % [facility] MCH (RBC) [Entitic mass] 32.0 pg 25.2 - 33.5 pg [facility] MCHC (RBC) [Mass/Vol] 35.8 g/dL High 28.4 - 34.8 g/dL [facility] MCV (RBC) [Entitic vol] 89.5 fL 82.6 - 102.9 fL [facility] Monocytes/100 WBC (Bld) 6 % 3 - 12 % B ON [facility] NRBC Automated 0.0 0.0 per 100 WBC [facility] Platelet distribution width (Bld) [Ratio] 11.9 % 11.8 - 14.4 % [facility] Platelet mean volume (Bld) [Entitic vol] 9.7 fL 8.1 - 13.5 fL [facility] Platelets (Bld) [#/Vol] 297 10*3/uL [facility] RBC (Bld) [#/Vol] 4.00 10*6/uL 3.95 - 5.11 m/uL [facility] Segmented neutrophils/100 WBC (Bld) 57 % 36 - 65 % [facility] Segs Absolute 4.36 [facility] WBC (Bld) [#/Vol] 7.7 10*3/uL [facility] Catheterization and angiogra phy procedure details panelon 08-20-2022 Cardiac Diagnostic Report Demographics Patient ADRIÁN Bee Date of Study 08/20/2022 Name Date of 1975 Gender Female Age 46 year(s) Race Room [id number]^DELONTE Height: 64 inch, 162.56 cm Number Corporate [id number] Weight: 194 pounds, 87.9 kg ID # Patient [id number] BSA: 1.93 m^2 BMI: 33.26 Acct # kg/m^2 MR # [id number] Performing Physician MichaelRonan Referring Physician # Assisting Physician Additional Comments [...] Right coronary angiography. Contrast Material: - Isovue 94539 ml Fluoroscopy Time: Diagnostic: 4:06 minutes. Total: [...] assessed as CCS IV according to the Moroccan clinical classification (more content not included)... [facility] Ronan Rodriguez MD - 08/20/2022 Cardiac Diagnostic Report Demographics Patient ADRIÁN Bee Date of Study 08/20/2022 Name Date of 1975 Gender Female Age 46 year(s) Race Room [id number]^MICHAEL^ROANN Height: 64 inch, 162.56 cm Number Corporate [id number] Weight: 194 pounds, 87.9 kg ID # Patient [id number] BSA: 1.93 m^2 BMI: 33.26 Acct # kg/m^2 MR # [id number] Performing Physician Ronan Rodriguez Referring Physician # [...] Right coronary angiography. Contrast Material: - Isovue 92025 ml Fluoroscopy Time: Diagnostic: 4:06 minutes. Total: [...] assessed as CCS IV according to the Moroccan clinical classification. Hemodynamics Condition: Baseline Room Air Estimated: 186.28Heart Rate: 63 bpm Pressure +-----+ --- + !Site !Pressure ! +-----+ --- + !AO !106/59 (80) ! +-----+ --- + !LV !106/0 ,11 ! +-----+ (more content not included)... [employer] Work Phone: [employer] Work Phone: Catheterization and angiogra phy procedure details panelOrdered By: Unknown Result on 08-20-2022 [employer] Troponinon 08-20-2022 Troponin I.cardiac DL <= 0.01 ng/mL [Mass/Vol] ng/L 0 - 14 ng/L [employer] Comment on above: High Sensitivity Tro ponin values cannot be compared with other Troponin methodologies. [employer] Troponin I.cardiac DL <= 0.01 ng/mL [Mass/Vol] ng/L 0 - 14 ng/L [employer] Comment on above: High Sensitivity Tro ponin values cannot be compared with other Troponin methodologies. [employer] XR CHEST PORTABLEon 08-20-19 No acute process. [facility] EXAMINATION: ONE XRAY VIEW OF THE CHEST 08/20/2022 12:50 pm COMPARISON: 10/19/2021 HISTORY: ORDERING SYSTEM PROVIDED HISTORY: chest pain TECHNOLOGIST PROVIDED HISTORY: chest pain FINDINGS: Loop recorder in place. The lungs are without acute focal process. There is no effusion or pneumothorax. The cardiomediastinal silhouette is stable. The osseous structures are stable. [facility] Janae Espinoza MD - 08/20/2022 EXAMINATION: ONE XRAY VIEW OF THE CHEST 08/20/2022 12:50 pm COMPARISON: 10/19/2021 HISTORY: ORDERING SYSTEM PROVIDED HISTORY: chest pain TECHNOLOGIST PROVIDED HISTORY: chest pain FINDINGS: Loop recorder in place. The lungs are without acute focal process. There is no effusion or pneumothorax. The cardiomediastinal silhouette is stable. The osseous structures are stable. IMPRESSION: No acute process. [employer] Work Phone: Radiology Study observation (narrative) KURTIS OCASIO [facility] [employer] Work Phone: XR CHEST PORTABLEOrdered By: Janae Espinoza on 08-20-2022 KURTIS MEJIA [facility] [employer] Work Phone: CBC with Auto Differentialon 07-28-2022 Absolute Eos # 0.10 [facility] Absolute Immature Granulocyte 0.05 [facility] Absolute Lymph # 1.91 KURTIS OLSENO [facility]ARJIT [facility] Absolute [place] # 0.49 [facility] Basophils (Bld) [#/Vol] 0.04 10*3/uL [facility] Basophils/100 WBC (Bld) 1 % 0 - 2 % B ON [facility] Eosinophils/100 WBC (Bld) 2 % 1 - 4 % [facility] Hematocrit (Bld) [Volume fraction] 34.6 % Low 36.3 - 47.1 % [facility] Hemoglobin (Bld) [Mass/Vol] 12.3 g/dL 11.9 - 15.1 g/dL [facility] Immature granulocytes/100 WBC (Bld) 1 % High 0 [facility] Interpretation and review of laboratory results Abnormal [facility] Lymphocytes/100 WBC (Bld) 29 % 24 - 43 % [facility] MCH (RBC) [Entitic mass] 31.5 pg 25.2 - 33.5 pg [facility] MCHC (RBC) [Mass/Vol] 35.5 g/dL High 28.4 - 34.8 g/dL [facility] MCV (RBC) [Entitic vol] 88.7 fL 82.6 - 102.9 fL [facility] Monocytes/100 WBC (Bld) 8 % 3 - 12 % B ON [facility] NRBC Automated 0.0 0.0 per 100 WBC [facility] Platelet distribution width (Bld) [Ratio] 11.9 % 11.8 - 14.4 % [facility] Platelet mean volume (Bld) [Entitic vol] 9.6 fL 8.1 - 13.5 fL [facility] Platelets (Bld) [#/Vol] 291 10*3/uL [facility] RBC (Bld) [#/Vol] 3.90 10*6/uL Low 3.95 - 5.11 m/uL [facility] Segmented neutrophils/100 WBC (Bld) 59 % 36 - 65 % [facility] Segs Absolute 3.92 [facility] WBC (Bld) [#/Vol] 6.5 10*3/uL [facility] CMPon 07-28-2022 Albumin [Mass/Vol] 4.1 g/dL 3.5 - 5.2 g/dL [facility] Albumin/Globulin [Mass ratio] 1.6 {ratio} 1.0 - 2.5 [facility] ALP (Bld) [Catalytic activity/Vol] 95 U/L 35 - 104 U/L [facility] ALT [Catalytic activity/Vol] 86 U/L High 5 - 33 U/L [facility] Anion gap [Moles/Vol] 9 mmol/L 9 - 17 mmol/L [facility] AST [Catalytic activity/Vol] 49 U/L High NINF - 32 U/L [facility] Bilirubin [Mass/Vol] 0.5 mg/dL 0.3 - 1 .2 mg/dL [facility] Calcium [Mass/Vol] 9.4 mg/dL 8.6 - 10. 4 mg/dL [facility] Chloride [Moles/Vol] 103 mmol/L 98 - 10 7 mmol/L [facility] CO2 [Moles/Vol] 27 mmol/L 20 - 31 mmol/L [facility] Creatinine [Mass/Vol] 0.63 mg/dL 0.50 - 0.90 mg/dL [facility] GFR/1.73 sq M.predicted MDRD (S/P/Bld) [Vol rate/Area] - PINF [facility] Comment on above: Effective Apr 20, 2022 [...] 105 mg/dL High 70 - 99 mg/dL [facility] [employer] Interpretation and review of laboratory results Abnormal [facility] [employer] Potassium [Moles/Vol] 3.7 mmol/L 3.7 - 5.3 mmol/L [facility] [employer] Protein [Mass/Vol] 6.7 g/dL 6.4 - 8.3 g/dL [facility] [employer] Sodium [Moles/Vol] 139 mmol/L 135 - 144 mmol/L [facility] Urea nitrogen (BldV) [Mass/Vol] 9 mg/dL 6 - 20 mg/dL [facility] [employer] Urea nitrogen/Creatinine (Bld) [Mass ratio] 14 9 - 20 [facility] [employer] CT ABDOMEN PELVIS W IV CONTR AST Additional Contrast? Noneon 07-28-2022 No acute process identified. Status post cholecystectomy and hysterectomy. Degenerative and postoperative changes noted in the lower lumbar spine. [facility] EXAMINATION: CT OF THE ABDOMEN [...] are noted bilaterally at L5 and S1. [facility] Jose Hadley MD - 07/28/2022 EXAMINATION: CT OF THE [...] changes noted in the lower lumbar spine. [employer] Phone: Radiology Study observation (narrative) [employer] Phone: CT ABDOMEN PELVIS W IV CONTR AST Additional Contrast? NoneOrdered By: Jose Jo on 07-28-2022 [employer] Phone: Lactic Acidon 07-28-2022 Lactate [Moles/Vol] 1.3 mmol/L 0.5 - 2. 2 mmol/L [employer] Lipaseon 07-28-2022 Lipase [Catalytic activity/Vol] 30 U/L 13 - 60 U/L [employer] Microscopic Urinalysison Bacteria, UA 2+ Abnormal None [facility] Epithelial Cells UA 2 TO 5 [facility] Interpretation and review of laboratory results Abnormal [facility] Mucus, UA 1+ Abnormal None [facility] RBC, UA 0 TO 2 [facility] WBC, UA 0 TO [address] [facility] No Panel Informationon 07-28 [facility] Urinalysis with Reflex to Cu ltureon 07-28-2022 Bilirubin Urine Negative NEGATIVE [facility] Color, UA Yellow Yellow [facility] Glucose, Ur Negative NEGATIVE [facility] Interpretation and review of laboratory results Abnormal [facility] Ketones Ql (U) Negative NEGATIVE [facility] Leukocyte esterase Test strip Ql (U) Negative NEGATIVE [facility] Nitrite, Urine Negative NEGATIVE [facility] pH, UA 6.0 5.0 - 9.0 [facility] Protein, UA Negative NEGATIVE [facility] Specific [place], UA High 1.010 - 1.020 [facility] Turbidity UA Clear Clear [facility] Urine Hgb Negative NEGATIVE [facility] Urobilinogen, Urine Normal Normal [facility] MRI CERVICAL SPINE WO YAYAA STorohit 05-08-2022 Multilevel degenerat farshad disc disease with uncovertebral and facet hypertrophy resulting in canal stenosis throughout the mid cervical spine. Bilateral foraminal narrowing as described above. [facility] EXAMINATION: MRI OF THE [...] spinal canal stenosis or neural foraminal narrowing. [facility] Efren Zepeda MD - 05/08/2022 EXAMINATION: MRI OF THE [...] spine. Bilateral foraminal narrowing as described above. [employer] Phone: MRI CERVICAL SPINE WO CONTRA STOrdered By: Efren Zepeda on 05-08-2022 [employer] Phone: MRI CERVICAL SPINE WO CONTRA STon 05-07-2022 Radiology Study observation (narrative) [employer] Phone: CT CERVICAL SPINE WO CONTRAS Ton 05-01-2022 [id number] multilevel cervical degenerative disc disease. No acute fracture or subluxation. Straightening of the normal cervical lordosis which may be related to muscle spasm or position in collar. [facility] EXAMINATION: CT OF THE CERVICAL SPINE [...] of the normal cervical lordosis. DEGENERATIVE CHANGES: [id number] multilevel cervical degenerative disc disease which is most pronounced at C6-C7. No significant uncovertebral joint hypertrophic change or bony neural foraminal narrowing. SOFT TISSUES: No paraspinal soft tissue abnormality. The visualized lung apices are grossly clear. [facility] Jose Buchanan MD - 05/01/2022 EXAMINATION: CT OF THE [...] of the normal cervical lordosis. DEGENERATIVE CHANGES: [id number] multilevel cervical degenerative disc disease which is most pronounced at C6-C7. No significant uncovertebral joint hypertrophic change or bony neural foraminal narrowing. SOFT TISSUES: No paraspinal soft tissue abnormality. The visualized lung apices are grossly clear. IMPRESSION: [id number] multilevel cervical degenerative disc disease. No acute fracture or subluxation. Straightening of the normal cervical lordosis which may be related to muscle spasm or position in collar. [employer] Phone: [employer] Phone: Radiology Study observation (narrative) [facility] [employer] Phone: CT Head WO Contraston 2021 Unremarkable noncont rast head CT study. [facility] EXAMINATION: CT OF THE HEAD WITHOUT CONTRAST 05/01/2022 6:15 pm TECHNIQUE: CT of the head was performed without the administration of intravenous contrast. Automated exposure control, iterative reconstruction, and/or weight based adjustment of the mA/kV was utilized to reduce the radiation dose to as low as reasonably achievable. COMPARISON: October 20, 2021 HISTORY: ORDERING SYSTEM PROVIDED HISTORY: David, MOHAN TECHNOLOGIST PROVIDED HISTORY: Fall, MOHAN Decision [...] tissues. No acute fracture. No scalp hematoma. [facility] Jose Francois MD - 05/01/2022 EXAMINATION: CT OF THE HEAD WITHOUT CONTRAST 05/01/2022 6:15 pm TECHNIQUE: CT of the head was performed without the administration of intravenous contrast. Automated exposure control, iterative reconstruction, and/or weight based adjustment of the mA/kV was utilized to reduce the radiation dose to as low as reasonably achievable. COMPARISON: October 20, 2021 HISTORY: ORDERING SYSTEM PROVIDED HISTORY: David, MOHAN TECHNOLOGIST PROVIDED HISTORY: Fall, MOHAN Decision [...] hematoma. IMPRESSION: Unremarkable noncontrast head CT study. [employer] Phone: Radiology Study observation (narrative) [facility] [employer] Phone: CT Head WO ContrastOrdered B y: Jose Francois on 05-01-2022 [employer] Phone: CT LUMBAR SPINE WO CONTRASTo n 05-01-2022 No fracture. At L1-L2, right foraminal/extraforaminal disc protrusion impinges on right L1 nerve root and moderate right neural foraminal narrowing Changes related to instrumented posterior fusion at L5-S1. Changes related to instrumented disc space fusion at L3-L4 and L4-L5 and L5-S1. 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 RECOMMENDATIONS: Unavailable [facility] EXAMINATION: CT OF THE LUMBAR SPINE [...] SOFT TISSUES/RETROPERITONEUM: No paraspinal mass is seen. [facility] Teresa Johnson MD - 05/01/2022 EXAMINATION: CT OF THE [...] prior instrumented fusion at L3-L4. RECOMMENDATIONS: Unavailable [employer] Phone: Radiology Study observation (narrative) [employer] Phone: CT LUMBAR SPINE WO CONTRASTO rdered By: Teresa Herzog on 05-01-2022 [employer] Phone: CT THORACIC SPINE WO CONTRAS Ton 05-01-[address]ic degenerative disc disease. No acute fracture or subluxation. [facility] EXAMINATION: CT OF THE THORACIC SPINE [...] SOFT TISSUES: No paraspinal soft tissue abnormality. [facility] Jose Francois MD - 05/01/2022 EXAMINATION: [...] disc disease. No acute fracture or subluxation. [employer] Phone: [employer] Phone: Radiology Study observation (narrative) [employer] Phone: No Panel Informationon 05-01 Radiology Study observation (narrative) [employer] Phone: Radiology Study observation (narrative) [employer] Phone: Radiology Study observation (narrative) [employer] Phone: XR ANKLE RIGHT (MIN 3 VIEWS) on 05-01-2022 No acute findings in the right ankle. [facility] EXAM: XR Right Ankle Complete, 3 or More Views EXAM DATE/TIME: 05/01/2022 7:21 pm CLINICAL HISTORY: ORDERING SYSTEM PROVIDED fall TECHNOLOGIST PROVIDED HISTORY: fall TECHNIQUE: Frontal, lateral and oblique views of the right ankle. COMPARISON: 01/29/2021 FINDINGS: Bones/joints: No acute findings. No acute fracture. No dislocation. Soft tissues: No acute findings. [facility] Hector Odonnell MD - 05/01/2022 EXAM: [...] No acute findings in the right ankle. [employer] Phone: [employer] Phone: XR ELBOW RIGHT (MIN 3 VIEWS) on 05-01-2022 No acute findings in the right elbow. [facility] EXAM: XR Right Elbow Complete, 3 or More Views EXAM DATE/TIME: 05/01/2022 7:21 pm CLINICAL HISTORY: ORDERING SYSTEM PROVIDED Fall TECHNOLOGIST PROVIDED HISTORY: Fall TECHNIQUE: Frontal, lateral and oblique views of the right elbow. COMPARISON: No relevant prior studies available. FINDINGS: Bones/joints: No acute findings. No acute fracture. No dislocation. Soft tissues: No acute findings. [facility] Hector Odonnell MD - 05/01/2022 EXAM: [...] No acute findings in the right elbow. [employer] Phone: XR ELBOW RIGHT (MIN 3 VIEWS) Ordered By: Hector Odonnell on 05-01-2022 [employer] Phone: XR FOOT RIGHT (MIN 3 VIEWS)o n 05-01-2022 No acute findings in the right foot. [facility] EXAM: XR Right Foot Complete, 3 or More Views EXAM DATE/TIME: 05/01/2022 7:21 pm CLINICAL HISTORY: ORDERING SYSTEM PROVIDED fall TECHNOLOGIST PROVIDED HISTORY: fall TECHNIQUE: Frontal, lateral and oblique views of the right foot. COMPARISON: 01/21/2022 FINDINGS: Bones/joints: No acute findings. No acute fracture. No dislocation. Soft tissues: No acute findings. No radiopaque foreign body. [facility] Hector Odonnell MD - 05/01/2022 EXAM: [...] No acute findings in the right foot. [employer] Phone: [employer] Phone: XR KNEE RIGHT (3 VIEWS)on No acute findings in the right knee. [facility] EXAM: XR Right Knee, 3 Views EXAM DATE/TIME: 05/01/2022 7:21 pm CLINICAL HISTORY: ORDERING SYSTEM PROVIDED fall TECHNOLOGIST PROVIDED HISTORY: fall TECHNIQUE: Three views of the right knee. COMPARISON: 01/27/2008 FINDINGS: Bones/joints: No acute findings. No acute fracture. No dislocation. Soft tissues: No acute findings. [facility] Hector Odonnell MD - 05/01/2022 EXAM: XR Right Knee, 3 Views EXAM DATE/TIME: 05/01/2022 7:21 pm CLINICAL HISTORY: ORDERING SYSTEM PROVIDED fall TECHNOLOGIST PROVIDED HISTORY: fall TECHNIQUE: Three views of the right knee. COMPARISON: 01/27/2008 FINDINGS: Bones/joints: No acute findings. No acute fracture. No dislocation. Soft tissues: No acute findings. IMPRESSION: No acute findings in the right knee. [employer] Phone: [employer] Phone: XR RADIUS ULNA RIGHT (2 VIEW S)on 05-01-2022 No acute findings in the right forearm. [facility] EXAM: XR Right Forearm, 2 Views EXAM DATE/TIME: 05/01/2022 7:21 pm CLINICAL HISTORY: ORDERING SYSTEM PROVIDED Fall TECHNOLOGIST PROVIDED HISTORY: Fall TECHNIQUE: Frontal and lateral views of the right forearm. COMPARISON: No relevant prior studies available. FINDINGS: Bones/joints: No acute findings. No acute fracture. No dislocation. Soft tissues: No acute findings. [facility] Hector Odonnell MD - 05/01/2022 EXAM: [...] No acute findings in the right forearm. [employer] Phone: [employer] Phone: XR TIBIA FIBULA RIGHT (2 VIE WS)on 05-01-2022 No acute findings in the right tibia and fibula or surrounding soft tissues. [facility] EXAM: XR Right Tibia and Fibula, 2 Views EXAM DATE/TIME: 05/01/2022 7:21 pm CLINICAL HISTORY: ORDERING SYSTEM PROVIDED fall TECHNOLOGIST PROVIDED HISTORY: fall TECHNIQUE: Frontal and lateral views of the right tibia and fibula. COMPARISON: 02/21/2016 FINDINGS: Bones/joints: No acute findings. No acute fracture. No dislocation. Soft tissues: No acute findings. No radiopaque foreign body. [facility] Hector Odonnell MD - 05/01/2022 EXAM: [...] tibia and fibula or surrounding soft tissues. [employer] Phone: [employer] Phone: US ABDOMEN LIMITED Specify o rgan? (hernia)on 02-03-2022 Prior cholecystectom y with otherwise unremarkable exam RECOMMENDATIONS: Unavailable [facility] EXAMINATION: RIGHT UPPER QUADRANT ULTRASOUND 02/03/2022 [...] No evidence of right upper quadrant ascites. [facility] Sal Mena DO - 02/03/2022 EXAMINATION: [...] cholecystectomy with otherwise unremarkable exam RECOMMENDATIONS: Unavailable [employer] Phone: Radiology Study observation (narrative) [email or web address] Phone: US ABDOMEN LIMITED Specify o rgan? (hernia)Ordered By: Sal Mena on 02-03-2022 [employer] Phone: COVID-19, Rapidon 12-19-2021 SARS-CoV-2 (COVID-19) RNA FAUSTINA+probe Ql (Unsp spec) Not detected Not Detected [employer] Comment on above: Rapid NAAT: The specimen [...] management decisions. Fact sheet for Healthcare Providers: https://www.fda.gov/media/711246/download Fact sheet for Patients: https://www.fda.gov/media/747882/download Methodology: Isothermal Nucleic Acid Amplification Specimen Description .NASOPHARYNGEAL [facility] Strep Screen Group A Throato n 12-19-2021 S. pyogenes Ag Ql (Throat) Negative NEGATIVE [facility] Comment on above: Rapid Strep A negati ve. A negative Rapid Group A Strep Screen result does not rule out the possibility of Group A Streptococci in the specimen. A Group A Strep DNA test is available upon request. Source .THROAT [facility] XR CERVICAL SPINE (4-5 VIEWS )on 11-21-2021 1. No acute cervical fracture or listhesis. 2. Mild degenerative disc disease and spondylosis C6-7. 3. If pain persists or worsens, then additional evaluation with CT or MRI may be indicated. Note that CT cervical spine is the study of choice for evaluation of acute trauma. [facility] EXAMINATION: 6 XRAY VIEWS OF THE [...] aligned. No discrete odontoid fracture is evident. [facility] Rickey Kwan MD - 11/21/2021 EXAMINATION: [...] of choice for evaluation of acute trauma. [employer] Work Phone: [employer] Work Phone: Radiology Study observation (narrative) [employer] Work Phone: XR SHOULDER LEFT (MIN 2 VIEW S)on 11-21-2021 No acute osseous abnormality. Follow-up imaging recommended if pain persists or worsens following conservative management. [facility] EXAMINATION: 3 XRAY VIEWS OF THE LEFT SHOULDER 11/21/2021 7:47 pm COMPARISON: Left shoulder radiograph series 06/06/2021 HISTORY: ORDERING SYSTEM PROVIDED HISTORY: pain TECHNOLOGIST PROVIDED HISTORY: pain FINDINGS: Osseous structures of the left shoulder are intact and aligned normally. No retained radiopaque foreign body. Visualized portions of the upper outer left hemithorax appear unremarkable. [facility] Rickey Kwan MD - 11/21/2021 EXAMINATION: [...] pain persists or worsens following conservative management. [employer] Work Phone: Radiology Study observation (narrative) [employer] Work Phone: XR SHOULDER LEFT (MIN 2 VIEW S)Ordered By: Rickey Kwan on 11-21-2021 [employer] Work Phone: Catheterization and angiogra phy procedure details panelon 11-06-2021 Cardiac Diagnostic Report Demographics Patient ADRIÁN Bee Date of Study 11/06/2021 Name Date of 1975 Gender Female Age 45 year(s) Race Room [id number]^MICHAEL^RONAN Height: 64 inch, 162.56 cm Number Corporate [id number] Weight: 191 pounds, 86.8 kg ID # Patient [id number] BSA: 1.92 m^2 BMI: 32.85 Acct # kg/m^2 MR # [id number] Performing Physician Ronan Rodriguez Referring Physician # [...] Left coronary angiography. Contrast Material: - [employer] 80748 ml Fluoroscopy Time: Diagnostic: 1:09 minutes. Total: [...] shows CHF sympto (more content not included)... PN T [facility] Ronan Rodriguez MD - 11/06/2021 Cardiac Diagnostic Report Demographics Patient ADRIÁN Bee Date of Study 11/06/2021 Name Date of 1975 Gender Female Age 45 year(s) Race Room [id number]^MICHAEL^RONAN Height: 64 inch, 162.56 cm Number Corporate [id number] Weight: 191 pounds, 86.8 kg ID # Patient [id number] BSA: 1.92 m^2 BMI: 32.85 Acct # kg/m^2 MR # [id number] Performing Physician Ronan Rodriguez Referring Physician # [...] Left coronary angiography. Contrast Material: - Isovue 51082 ml Fluoroscopy Time: Diagnostic: 1:09 minutes. Total: [...] assessed as CCS III according to the Moroccan clinical classification. Hemodynamics Condition: Baseline Room Air Estimated: 181.71Heart Rate: 57 bpm Pressure +-----+ --- + !Site !Pressure ! +-----+ (more content not included)... [employer] Work Phone: [employer] Phone: Catheterization and angiogra phy procedure details panelOrdered By: Unknown Result on 11-06-2021 [employer] Catheterization and angiogra phy procedure details panelOrdered By: Unknown Result on 10-30-2021 [employer] Basic Metab w/rfx MGon 10-23 (cont.) Normal [facility] Comment on above: Result Comment: Aver age GFR for 40-49 years old: 99 mL/min/1.73sq m Chronic Kidney Disease: <60 mL/min/1.73sq m Kidney failure: <15 mL/min/1.73sq m eGFR calculated using average adult body mass. Additional eGFR calculator available at: http://www.Hellotravel/multiple_crcl_2011.htm Performed By: #### C GRAEME, BMPX #### [employer] [address] [place] [id number] Company Accountant: Darius Sarah MD Anion gap [Moles/Vol] 12 mmol/L Normal 9-17 [facility] Comment on above: Performed By: #### C DP, BMPX #### [employer] [address] [place] [address] Company Accountant: Darius Sarah MD Calcium [Mass/Vol] 8.9 mg/dL Normal 8.6-10.4 [facility] Comment on above: Performed By: #### C DP, BMPX #### [address] [address] Company Accountant: Darius Sarah MD Chloride [Moles/Vol] 104 mmol/L Normal 98-107 [facility] Comment on above: Performed By: #### C DP, BMPX #### [address] [address] Company Accountant: Darius Sarah MD CO2 [Moles/Vol] 19 mmol/L Low 20-31 [facility] Comment on above: Performed By: #### C DP, BMPX #### [address] [address] Company Accountant: Darius Sarah MD Creatinine [Mass/Vol] 0.76 mg/dL Normal 0.50-0.90 [facility] Comment on above: Performed By: #### C DP, BMPX #### [address] [address] Company Accountant: Darius Sarah MD GFR, Amer >60 Normal >60 [facility] Comment on above: Performed By: #### C DP, BMPX #### [address] [address] Company Accountant: Darius Sarah MD GFR,non Amer >60 Normal >60 [facility] Comment on above: Performed By: #### C DP, BMPX #### [address] [address] Company Accountant: Darius Sarah MD Glucose [Mass/Vol] 112 mg/dL High 70-99 [facility] Comment on above: Performed By: #### C DP, BMPX #### [address] [address] Company Accountant: Darius Sarah MD Potassium [Moles/Vol] 3.6 mmol/L Low 3.7-5.3 [facility] Comment on above: Performed By: #### C DP, BMPX #### [facility] [address] [place], [place] [id number] Company Accountant: Darius Sarah MD Sodium [Moles/Vol] 135 mmol/L Normal 135-144 [facility] Comment on above: Performed By: #### C DP, BMPX #### [facility] [address] [place] [address] Company Accountant: Darius Sarah MD Urea nitrogen [Mass/Vol] 12 mg/dL Normal 6-20 [facility] Comment on above: Performed By: #### C DP, BMPX #### [facility] [address] [place], [place] [id number] Company Accountant: Darius Sarah MD Basic Metabolic Panel w/ Ref golden to MGon 10-23-2021 Anion gap [Moles/Vol] 12 mmol/L 9 - 17 mmol/L [employer] Calcium [Mass/Vol] 8.9 mg/dL 8.6 - 10. 4 mg/dL [facility] Chloride [Moles/Vol] 104 mmol/L 98 - 10 7 mmol/L [facility] CO2 [Moles/Vol] 19 mmol/L Low 20 - 31 mmol/L [facility] Creatinine [Mass/Vol] 0.76 mg/dL 0.50 - 0.90 mg/dL [facility] GFR >60 >60 mL/min [employer] GFR Non- >60 >60 mL/min [facility] GFR/1.73 sq M.predicted MDRD (S/P/Bld) [Vol rate/Area] [facility] Comment on above: Average GFR for 40-4 9 years old: 99 mL/min/1.73sq m Chronic Kidney Disease: <60 mL/min/1.73sq m Kidney failure: <15 mL/min/1.73sq m eGFR calculated using average adult body mass. Additional eGFR calculator available at: http://www.globalrp.com/multiple_crcl_2011.htm Glucose [Mass/Vol] 112 mg/dL High 70 - 99 mg/dL [facility] Interpretation and review of laboratory results Abnormal [facility] Potassium [Moles/Vol] 3.6 mmol/L Low 3.7 - 5.3 mmol/L [facility] Sodium [Moles/Vol] 135 mmol/L 135 - 144 mmol/L [facility] Urea nitrogen (BldV) [Mass/Vol] 12 mg/dL 6 - 20 mg/dL [facility] CBC with Auto Differentialon 10-23-2021 Absolute Eos # 0.13 [facility] th Absolute Immature Granulocyte 0.06 [facility] Absolute Lymph # 2.50 [facility] alth Absolute [place] [facility] 0.68 [place] [facility] Basophils (Bld) [#/Vol] 0.07 10*3/uL [facility] Basophils/100 WBC (Bld) 1 % 0 - 2 % [facility] Eosinophils/100 WBC (Bld) 1 % 1 - 4 % [facility] Hematocrit (Bld) [Volume fraction] 39.3 % 36.3 - 47.1 % [facility] Hemoglobin.gastrointest inal spec 1 Ql (Stl) 13.2 g/dL 11.9 - 15.1 g/dL [facility] Immature granulocytes/100 WBC (Bld) 1 % High 0 [facility] Interpretation and review of laboratory results Abnormal [facility] Lymphocytes/100 WBC (Bld) 24 % 24 - 43 % [facility] MCH (RBC) [Entitic mass] 30.3 pg 25.2 - 33.5 pg [facility] MCHC (RBC) [Mass/Vol] 33.6 g/dL 28.4 - 34.8 g/dL [facility] MCV (RBC) [Entitic vol] 90.1 fL 82.6 - 102.9 fL [facility] Monocytes/100 WBC (Bld) 6 % 3 - 12 % [facility] NRBC Automated 0.0 0.0 per 100 WBC [facility] Platelet distribution width (Bld) [Ratio] 11.9 % 11.8 - 14.4 % [facility] Platelet mean volume (Bld) [Entitic vol] 10.9 fL 8.1 - 13.5 fL [facility] Platelets (Bld) [#/Vol] 272 10*3/uL [facility] RBC (Bld) [#/Vol] 4.36 10*6/uL 3.95 - 5.11 m/uL [facility] Segmented neutrophils/100 WBC (Bld) 67 % High 36 - 65 % [facility] Segs [facility] 7.16 [facility]ld) [#/Vol] 10.6 10*3/uL [facility] CBC with Diffon 10-23-2021 Abs. Basophil 0.07 k/uL Normal 0.00-0.20 [facility] Comment on above: Performed By: #### C DP, BMPX #### [place] [address] Company Accountant: Darius Sarah MD Abs.Imm.Granulocyte 0.06 k/uL Normal 0.00-0.30 [facility] Comment on above: Performed By: #### C DP, BMPX #### [facility] [address] [place] [address] Company Accountant: Darius Sarah MD Abs.Neutrophil (Seg) 7.16 k/uL Normal 1.50-8.10 [facility] Comment on above: Performed By: #### C DP, BMPX #### [facility] [address] [place] [address] Company Accountant: Darius Sarah MD Basophils/100 WBC (Bld) 1 % Normal 0-2 M [facility] Comment on above: Performed By: #### C DP, BMPX #### [facility] [address] [place] [address] Company Accountant: Darius Sarah MD Eosinophils (Bld) [#/Vol] 0.13 10*3/uL Normal 0.00-0.44 [facility] Comment on above: Performed By: #### C DP, BMPX #### [facility] [address] [place] [address] Company Accountant: Darius Sarah MD Eosinophils/100 WBC (Bld) 1 % Normal 1-4 [facility] Comment on above: Performed By: #### C DP, BMPX #### [facility] [address] [place] [address] Company Accountant: Darius Sarah MD Erythrocyte distribution width (RBC) [Ratio] 11.9 % Normal 11.8-14.4 [facility] Comment on above: Performed By: #### C DP, BMPX #### [facility] [address] [place] [address] Company Accountant: Darius Sarah MD Hematocrit (Bld) [Volume fraction] 39.3 % Normal 36.3-47.1 [facility] Comment on above: Performed By: #### C DP, BMPX #### [facility] [address] [place] [address] Company Accountant: Darius Sarah MD Hemoglobin (Bld) [Mass/Vol] 13.2 g/dL Normal 11.9-15.1 [facility] Comment on above: Performed By: #### C DP, BMPX #### [address] [address] Company Accountant: Darius Sarah MD Immature granulocytes/100 WBC (Bld) 1 % High 0 [facility] Comment on above: Performed By: #### C DP, BMPX #### [address] [address] Company Accountant: Darius Sarah MD Lymphocytes (Bld) [#/Vol] 2.50 10*3/uL Normal 1.10-3.70 [facility] Comment on above: Performed By: #### C DP, BMPX #### [facility] [address] [place] [address] Company Accountant: Darius Sarah MD Lymphocytes/100 WBC (Bld) 24 % Normal 24-43 [facility] Comment on above: Performed By: #### C DP, BMPX #### [address] [address] Company Accountant: Darius Sarah MD MCH (RBC) [Entitic mass] 30.3 pg Normal 25.2-33.5 [facility] Comment on above: Performed By: #### C DP, BMPX #### [place] [address] Company Accountant: Darius Sarah MD MCHC (RBC) [Mass/Vol] 33.6 g/dL Normal 28.4-34.8 [facility] Comment on above: Performed By: #### C DP, BMPX #### [place] [address] Company Accountant: Darius Sarah MD MCV (RBC) [Entitic vol] 90.1 fL Normal 82.6-102.9 [facility] Comment on above: Performed By: #### C DP, BMPX #### [place] [address] Company Accountant: Darius Sarah MD Monocytes (Bld) [#/Vol] 0.68 10*3/uL Normal 0.10-1.20 [facility] Comment on above: Performed By: #### C DP, BMPX #### [place] [address] Company Accountant: Darius Sarah MD Monocytes/100 WBC (Bld) 6 % Normal 3-12 [facility] Comment on above: Performed By: #### C DP, BMPX #### [place] [address] Company Accountant: Darius Sarah MD Neutrophil (Seg) 67 % High 36-65 [facility] Comment on above: Performed By: #### C DP, BMPX #### [address] [address] Company Accountant: Darius Sarah MD NRBC Automated 0.0 per 100 WBC Normal 0.0 [facility] Comment on above: Performed By: #### C DP, BMPX #### [address] [address] Company Accountant: Darius Sarah MD Platelet mean volume (Bld) [Entitic vol] 10.9 fL Normal 8.1-13.5 [facility] Comment on above: Performed By: #### C DP, BMPX #### [address] [address] Company Accountant: Darius Sarah MD Platelets (Bld) [#/Vol] 272 10*3/uL Normal 138-453 [facility] Comment on above: Performed By: #### C DP, BMPX #### [address] [address] Company Accountant: Darius Sarah MD RBC (Bld) [#/Vol] 4.36 10*6/uL Normal 3.95-5.11 [facility] Comment on above: Performed By: #### C DP, BMPX #### [address] [address] Company Accountant: Darius Sarah MD WBC (Bld) [#/Vol] 10.6 10*3/uL Normal 3.5-11.3 [facility] Comment on above: Performed By: #### C DP, BMPX #### [address] [address] Company Accountant: Darius Sarah MD Basic Metab w/rfx MGon 10-21 (cont.) Normal [facility] Comment on above: Result Comment: Aver age GFR for 40-49 years old: 99 mL/min/1.73sq m Chronic Kidney Disease: <60 mL/min/1.73sq m Kidney failure: <15 mL/min/1.73sq m eGFR calculated using average adult body mass. Additional eGFR calculator available at: http://www.CloudX.Adocia/multiple_crcl_2012.htm Performed By: #### C DP, BMPX #### [facility] [address] [place] [address] Company Accountant: Darius Sarah MD Anion gap [Moles/Vol] 14 mmol/L Normal 9-17 [facility] Comment on above: Performed By: #### C DP, BMPX #### [address] [address] Company Accountant: Darius Sarah MD Calcium [Mass/Vol] 9.6 mg/dL Normal 8.6-10.4 [facility] Comment on above: Performed By: #### C DP, BMPX #### [address] [address] Company Accountant: Darius Sarah MD Chloride [Moles/Vol] 105 mmol/L Normal 98-107 [facility] Comment on above: Performed By: #### C DP, BMPX #### [facility] [address] [place] [address] Company Accountant: Darius Sarah MD CO2 [Moles/Vol] 20 mmol/L Normal 20-31 [facility] Comment on above: Performed By: #### C DP, BMPX #### [facility] [address] [place] [address] Company Accountant: Darius Sarah MD Creatinine [Mass/Vol] 0.75 mg/dL Normal 0.50-0.90 [facility] Comment on above: Performed By: #### C DP, BMPX #### [facility] [address] [place] [address] Company Accountant: Darius Sarah MD GFR, Amer >60 Normal >60 [facility] Comment on above: Performed By: #### C DP, BMPX #### [address] [address] Company Accountant: Darius Sarah MD GFR,non Amer >60 Normal >60 [facility] Comment on above: Performed By: #### C DP, BMPX #### [facility] [address] [place] [address] Company Accountant: Darius Sarah MD Glucose [Mass/Vol] 114 mg/dL High 70-99 [facility] Comment on above: Performed By: #### C DP, BMPX #### [facility] [address] [place] [address] Company Accountant: Darius Sarah MD Potassium [Moles/Vol] 4.3 mmol/L Normal 3.7-5.3 [facility] Comment on above: Performed By: #### C DP, BMPX #### [address] [address] Company Accountant: Darius Sarah MD Sodium [Moles/Vol] 139 mmol/L Normal 135-144 [facility] Comment on above: Performed By: #### C DP, BMPX #### [address] [address] Company Accountant: Darius Sarah MD Urea nitrogen [Mass/Vol] 9 mg/dL Normal 6-20 [facility] Comment on above: Performed By: #### C DP, BMPX #### [address] [address] Company Accountant: Darius Sarah MD Basic Metabolic Panel w/ Ref golden to MGon 10-21-2021 Anion gap [Moles/Vol] 14 mmol/L 9 - 17 mmol/L [facility] Calcium [Mass/Vol] 9.6 mg/dL 8.6 - 10. 4 mg/dL [facility] Chloride [Moles/Vol] 105 mmol/L 98 - 10 7 mmol/L [facility] CO2 [Moles/Vol] 20 mmol/L 20 - 31 mmol/L [facility] Creatinine [Mass/Vol] 0.75 mg/dL 0.50 - 0.90 mg/dL [facility] GFR >60 >60 mL/min [facility] GFR Non- >60 >60 mL/min [facility] GFR/1.73 sq M.predicted MDRD (S/P/Bld) [Vol rate/Area] [facility] Comment on above: Average GFR for 40-4 9 years old: 99 mL/min/1.73sq m Chronic Kidney Disease: <60 mL/min/1.73sq m Kidney failure: <15 mL/min/1.73sq m eGFR calculated using average adult body mass. Additional eGFR calculator available at: http://www.Hellotravel/multiple_crcl_2012.htm Glucose [Mass/Vol] 114 mg/dL High 70 - 99 mg/dL [facility] Interpretation and review of laboratory results Abnormal [facility] Potassium [Moles/Vol] 4.3 mmol/L 3.7 - 5.3 mmol/L [facility] Sodium [Moles/Vol] 139 mmol/L 135 - 144 mmol/L [facility] Urea nitrogen (BldV) [Mass/Vol] 9 mg/dL 6 - 20 mg/dL [facility] CBC with Auto Differentialon 10-21-2021 Absolute Eos # 0.14 [facility] th Absolute Immature Granulocyte 0.03 [facility] Absolute Lymph # 2.54 [facility] alth Absolute [place] # 0.63 [facility] lt Basophils (Bld) [#/Vol] 0.08 10*3/uL [facility] Hemoglobin.gastrointest inal spec 1 Ql (Stl) 14.0 g/dL 11.9 - 15.1 g/dL [facility] Interpretation and review of laboratory results Abnormal [facility] NRBC Automated 0.0 0.0 per 100 WBC [facility] Platelet distribution width (Bld) [Ratio] 11.7 % Low 11.8 - 14.4 % [facility] Segmented neutrophils/100 WBC (Bld) 69 % High 36 - 65 % [facility] Segs Absolute 7.78 [facility] CBC with Diffon 10-21-2021 Abs. Basophil 0.08 k/uL Normal 0.00-0.20 [facility] Comment on above: Performed By: #### C DP, BMPX #### [address] [address] Company Accountant: Darius Sarah MD Abs.Imm.Granulocyte 0.03 k/uL Normal 0.00-0.30 [facility] Comment on above: Performed By: #### C DP, BMPX #### [address] [address] Company Accountant: Darius Sarah MD Abs.Neutrophil (Seg) 7.78 k/uL Normal 1.50-8.10 [facility] Comment on above: Performed By: #### C DP, BMPX #### [address] [address] Company Accountant: Darius Sarah MD Eosinophils (Bld) [#/Vol] 0.14 10*3/uL Normal 0.00-0.44 [facility] Comment on above: Performed By: #### C DP, BMPX #### [facility] [address] [place] [address] Company Accountant: Darius Sarah MD Erythrocyte distribution width (RBC) [Ratio] 11.7 % Low 11.8-14.4 [facility] Comment on above: Performed By: #### C DP, BMPX #### [facility] [address] [place] [address] Company Accountant: Darius Sarah MD Hemoglobin (Bld) [Mass/Vol] 14.0 g/dL Normal 11.9-15.1 [facility] Comment on above: Performed By: #### C DP, BMPX #### [facility] [address] [place] [address] Company Accountant: Darius Sarah MD Lymphocytes (Bld) [#/Vol] 2.54 10*3/uL Normal 1.10-3.70 [facility] Comment on above: Performed By: #### C DP, BMPX #### [address] [address] Company Accountant: Darius Sarah MD Monocytes (Bld) [#/Vol] 0.63 10*3/uL Normal 0.10-1.20 [facility] Comment on above: Performed By: #### C DP, BMPX #### [place] [address] Company Accountant: Darius Sarah MD Neutrophil (Seg) 69 % High 36-65 [facility] Comment on above: Performed By: #### C DP, BMPX #### [place] [address] Company Accountant: Darius Sarah MD NRBC Automated 0.0 per 100 WBC Normal 0.0 [facility] Comment on above: Performed By: #### C DP, BMPX #### [place] [address] Company Accountant: Darius Sarah MD Basophils/100 WBC (Bld) 1 % Normal 0-2 [facility] Comment on above: Performed By: #### C DP, BMPX #### [place] [address] Company Accountant: Darius Sarah MD Eosinophils/100 WBC (Bld) 1 % Normal 1-4 [facility] Comment on above: Performed By: #### C DP, BMPX #### [place] [address] Company Accountant: Darius Sarah MD Hematocrit (Bld) [Volume fraction] 42.3 % Normal 36.3-47.1 [facility] Comment on above: Performed By: #### C DP, BMPX #### [address] [address] Company Accountant: Darius Sarah MD Immature granulocytes/100 WBC (Bld) 0 % Normal 0 [facility] Comment on above: Performed By: #### C DP, BMPX #### [address] [address] Company Accountant: Darius Sarah MD Lymphocytes/100 WBC (Bld) 23 % Low 24-43 [facility] Comment on above: Performed By: #### C DP, BMPX #### [address] [address] Company Accountant: Darius Sarah MD MCH (RBC) [Entitic mass] 30.7 pg Normal 25.2-33.5 [facility] Comment on above: Performed By: #### C DP, BMPX #### [address] [address] Company Accountant: Darius Sarah MD MCHC (RBC) [Mass/Vol] 33.1 g/dL Normal 28.4-34.8 [facility] Comment on above: Performed By: #### C DP, BMPX #### [address] [address] Company Accountant: Darius Sarah MD MCV (RBC) [Entitic vol] 92.8 fL Normal 82.6-102.9 [facility] Comment on above: Performed By: #### C DP, BMPX #### [address] [address] Company Accountant: Darius Sarah MD Monocytes/100 WBC (Bld) 6 % Normal 3-12 M [facility] Comment on above: Performed By: #### C DP, BMPX #### [address] [address] Company Accountant: Darius Sarah MD Platelet mean volume (Bld) [Entitic vol] 10.0 fL Normal 8.1-13.5 [facility] Comment on above: Performed By: #### C DP, BMPX #### [facility] [address] [place] [address] Company Accountant: Darius Sarah MD Platelets (Bld) [#/Vol] 343 10*3/uL Normal 138-453 [facility] Comment on above: Performed By: #### C DP, BMPX #### [facility] [address] [place] [address] Company Accountant: Darius Sarah MD RBC (Bld) [#/Vol] 4.56 10*6/uL Normal 3.95-5.11 [facility] Comment on above: Performed By: #### C DP, BMPX #### [facility] [address] [place] [address] Company Accountant: Darius Sarah MD WBC (Bld) [#/Vol] 11.2 10*3/uL Normal 3.5-11.3 [facility] Comment on above: Performed By: #### C DP, BMPX #### [facility] [address] [place] [address] Company Accountant: Darius Sarah MD CT HEAD WO CONTRASTon [...] Judah Wilhelm MD 10/20/21 Final result Normal [facility] Echo Completeon 10-21-2021 Transthoracic Echocardiography Report (TTE) Patient Name ADRIÁN Date of Study 10/21/2021 MIKE N Date of 1975 Gender Female Age 45 year(s) Race Room Number 0530 Height: 64 inch, 162.56 cm Corporate ID [id number] Weight: 193 pounds, 87.5 kg # Patient Acct [id number] BSA: 1.93 m^2 BMI: 33.13 # kg/m^2 MR # [id number] [employer] Karolina Shea Interpreting Physician Vicenta Thacker Fellow Referring Nurse Practitioner Interpreting Referring Physician Zaki Mcbride DO Fellow Type of Study TTE procedure:2D Echocardiogram, Color Doppler, Bubble Study, Limited Echo. Procedure Date Date: 10/21/2021 Start: 10:54 AM Study Location: [facility] Technical Quality: Adequate visualization Indications:CVA. History [...] insufficiency. Pericardial Effusion No pericardial effusion seen. [facility] Vicenta Thacker MD - 10/21/2021 Transthoracic Echocardiography Report (TTE) Patient Name ADRIÁN Date of Study 10/21/2021 MIKE N Date of 1975 Gender Female Age 45 year(s) Race Room Number 0530 Height: 64 inch, 162.56 cm Corporate ID [id number] Weight: 193 pounds, 87.5 kg # Patient Acct [id number] BSA: 1.93 m^2 BMI: 33.13 # kg/m^2 MR # [id number] [employer] Karolina Shea Interpreting Physician Vicenta Thacker Fellow Referring Nurse Practitioner Interpreting Referring Physician DO Vance Phillips Type of Study TTE procedure:2D Echocardiogram, Color Doppler, Bubble Study, Limited Echo. Procedure Date Date: 10/21/2021 Start: 10:54 AM Study Location: [facility] Technical Quality: Adequate visualization Indications:CVA. History [...] insufficiency. Pericardial Effusion No pericardial effusion seen. [facility]: [employer] Phone: Basic Metab w/rfx MGon 10-20 Anion gap [Moles/Vol] 11 mmol/L Normal 9-17 [facility] Comment on above: Performed By: #### C BC, TROPI, BMPX, GLYHGB, LIPR ####[employer] [place], [place] [id number] lab Director: Darius Sarah MD Calcium [Mass/Vol] 8.9 mg/dL Normal 8.6-10.4 [facility] Comment on above: Performed By: #### C BC, TROPI, BMPX, GLYHGB, LIPR ####[employer] [id number] [place], [place] [id number] lab Director: Darius Sarah MD Chloride [Moles/Vol] 103 mmol/L Normal 98-107 [facility] Comment on above: Performed By: #### C BC, TROPI, BMPX, GLYHGB, LIPR ####[employer] [id number] [place], [place] [id number] lab Director: Darius Sarah MD CO2 [Moles/Vol] 20 mmol/L Normal 20-31 [facility] Comment on above: Performed By: #### C BC, TROPI, BMPX, GLYHGB, LIPR ####[facility] [id number] [place] [address] Lab Director: Darius Sarah MD Creatinine [Mass/Vol] 0.76 mg/dL Normal 0.50-0.90 [facility] Comment on above: Performed By: #### C BC, TROPI, BMPX, GLYHGB, LIPR ####[facility] [id number] [place] [address] Lab Director: Darius Sarah MD GFR, Amer >60 Normal >60 [facility] Comment on above: Performed By: #### C BC, TROPI, BMPX, GLYHGB, LIPR ####[facility] [id number] [place] [address] Lab Director: Darius Sarah MD GFR,non Amer >60 Normal >60 [facility] Comment on above: Performed By: #### C BC, TROPI, BMPX, GLYHGB, LIPR ####[facility] [id number] [place] [address] Lab Director: Darius Sarah MD Glucose [Mass/Vol] 110 mg/dL High 70-99 [facility] Comment on above: Performed By: #### C BC, TROPI, BMPX, GLYHGB, LIPR ####[facility] [id number] [place] [address] Lab Director: Darius Sarah MD Potassium [Moles/Vol] 3.6 mmol/L Low 3.7-5.3 [facility] Comment on above: Performed By: #### C BC, TROPI, BMPX, GLYHGB, LIPR ####[facility] [id number] [place], [place] [id number] lab Director: Darius Sarah MD Sodium [Moles/Vol] 134 mmol/L Low 135-144 [facility] Comment on above: Performed By: #### C BC, TROPI, BMPX, GLYHGB, LIPR ####[facility] [id number] [place] [address] lab Director: Darius Sarah MD Urea nitrogen [Mass/Vol] 12 mg/dL Normal 6-20 [facility] Comment on above: Performed By: #### C BC, TROPI, BMPX, GLYHGB, LIPR ####[facility] [id number] [place] [address] lab Director: Darius Sarah MD (cont.) [facility] Comment on above: Result Comment: Aver age GFR for 40-49 years old: 99 mL/min/1.73sq m Chronic Kidney Disease: <60 mL/min/1.73sq m Kidney failure: <15 mL/min/1.73sq m eGFR calculated using average adult body mass. Additional eGFR calculator available at: http://www.CloudX.Adocia/multiple_crcl_2012.htm Performed By: #### C BC, TROPI, BMPX, GLYHGB, LIPR ####[facility] [id number] [place], [place] [id number] lab Director: Darius Sarah MD Basic Metabolic Panel w/ Ref golden to MGon 10-20-2021 Anion gap [Moles/Vol] 11 mmol/L 9 - 17 mmol/L [employer] [facility] Calcium [Mass/Vol] 8.9 mg/dL 8.6 - 10. 4 mg/dL [facility] Chloride [Moles/Vol] 103 mmol/L 98 - 10 7 mmol/L [facility] CO2 [Moles/Vol] 20 mmol/L 20 - 31 mmol/L [facility] Creatinine [Mass/Vol] 0.76 mg/dL 0.50 - 0.90 mg/dL [employer] GFR >60 >60 mL/min [employer] GFR Non- >60 >60 mL/min [facility] GFR/1.73 sq M.predicted MDRD (S/P/Bld) [Vol rate/Area] [facility] Comment on above: Average GFR for 40-4 9 years old: 99 mL/min/1.73sq m Chronic Kidney Disease: <60 mL/min/1.73sq m Kidney failure: <15 mL/min/1.73sq m eGFR calculated using average adult body mass. Additional eGFR calculator available at: http://www.Hellotravel/multiple_crcl_2011.htm Glucose [Mass/Vol] 110 mg/dL High 70 - 99 mg/dL [facility] Potassium [Moles/Vol] 3.6 mmol/L Low 3.7 - 5.3 mmol/L [facility] Sodium [Moles/Vol] 134 mmol/L Low 135 - 144 mmol/L [facility] [employer] Urea nitrogen (BldV) [Mass/Vol] 12 mg/dL 6 - 20 mg/dL [facility] CBCon 10-20-2021 Erythrocyte distribution width (RBC) [Ratio] 11.7 % Low 11.8-14.4 [facility] Comment on above: Performed By: #### C BC, TROPI, BMPX, GLYHGB, LIPR #### [employer] [address] [place] [address] Company Accountant: Darius Sarah MD Hematocrit (Bld) [Volume fraction] 34.7 % Low 36.3-47.1 [facility] Comment on above: Performed By: #### C BC, TROPI, BMPX, GLYHGB, LIPR #### [employer] [address] [place] [address] Company Accountant: Darius Sarah MD Hemoglobin (Bld) [Mass/Vol] 11.7 g/dL Low 11.9-15.1 [facility] Comment on above: Performed By: #### C BC, TROPI, BMPX, GLYHGB, LIPR #### [employer] [facility] [place] [address] Company Accountant: Darius Sarah MD MCH (RBC) [Entitic mass] 30.1 pg Normal 25.2-33.5 [facility] Comment on above: Performed By: #### C BC, TROPI, BMPX, GLYHGB, LIPR #### [address] [address] Company Accountant: Darius Sarah MD MCHC (RBC) [Mass/Vol] 33.7 g/dL Normal 28.4-34.8 [facility] Comment on above: Performed By: #### C BC, TROPI, BMPX, GLYHGB, LIPR #### [address] [address] Company Accountant: Darius Sarah MD MCV (RBC) [Entitic vol] 89.2 fL Normal 82.6-102.9 [facility] Comment on above: Performed By: #### C BC, TROPI, BMPX, GLYHGB, LIPR #### [address] [address] Company Accountant: Darius Sarah MD NRBC Automated 0.0 per 100 WBC Normal 0.0 [facility] Comment on above: Performed By: #### C BC, TROPI, BMPX, GLYHGB, LIPR #### [address] [address] Company Accountant: Darius Sarah MD Platelet mean volume (Bld) [Entitic vol] 10.1 fL Normal 8.1-13.5 [facility] Comment on above: Performed By: #### C BC, TROPI, BMPX, GLYHGB, LIPR #### [address] [address] Company Accountant: Darius Sarah MD Platelets (Bld) [#/Vol] 295 10*3/uL Normal 138-453 [facility] Comment on above: Performed By: #### C BC, TROPI, BMPX, GLYHGB, LIPR #### [employer] [address] [place], [place] [id number] Company Accountant: Darius Sarah MD RBC (Bld) [#/Vol] 3.89 10*6/uL Low 3.95-5.11 [facility] Comment on above: Performed By: #### C BC, TROPI, BMPX, GLYHGB, LIPR #### [employer] [address] [place], [place] [id number] Company Accountant: Darius Sarah MD WBC (Bld) [#/Vol] 10.5 10*3/uL Normal 3.5-11.3 [facility] Comment on above: Performed By: #### C BC, TROPI, BMPX, GLYHGB, LIPR #### [facility] [address] [place], [place] [id number] Company Accountant: Darius Sarah MD Hematocrit (Bld) [Volume fraction] 34.7 % Low 36.3 - 47.1 % [facility] Hemoglobin.gastrointest inal spec 1 Ql (Stl) 11.7 g/dL Low 11.9 - 15.1 g/dL [facility] Interpretation and review of laboratory results Abnormal [facility] MCH (RBC) [Entitic mass] 30.1 pg 25.2 - 33.5 pg [facility] MCHC (RBC) [Mass/Vol] 33.7 g/dL 28.4 - 34.8 g/dL [facility] MCV (RBC) [Entitic vol] 89.2 fL 82.6 - 102.9 fL [facility] NRBC Automated 0.0 0.0 per 100 WBC [facility] Platelet distribution width (Bld) [Ratio] 11.7 % Low 11.8 - 14.4 % [facility] Platelet mean volume (Bld) [Entitic vol] 10.1 fL 8.1 - 13.5 fL [facility] Platelets (Bld) [#/Vol] 295 10*3/uL [facility] RBC (Bld) [#/Vol] 3.89 10*6/uL Low 3.95 - 5.11 m/uL [facility] WBC (Bld) [#/Vol] 10.5 10*3/uL [facility] COVID-19, Rapidon 10-20-2021 SARS-CoV-2 (COVID-19) RNA FAUSTINA+probe Ql (Unsp spec) Not detected Not Detected [facility] Comment on above: Rapid NAAT: [...] management decisions. Fact sheet for Healthcare Providers: https://www.fda.gov/media/511268/download Fact sheet for Patients: https://www.fda.gov/media/463948/download Methodology: Isothermal Nucleic Acid Amplification Specimen Description .NASOPHARYNGEAL SWAB [facility] CT head without contraston 0 10-20-2021 EXAMINATION: [...] of the visualized skull or soft tissues. [facility] Judah Randhawa MD - 10/20/2021 EXAMINATION: CT OF THE [...] artifact. 2. No convincing acute intracranial abnormality. [employer] Phone: Radiology Study observation (narrative) [employer] Phone: CT head without contrastOrde red By: Judah Wilhelm on 10-20-2021 [employer] Phone: EKG 12 LeadOrdered By: Vicenta Thacker on 10-20-2021 Atrial Rate 63 BPM [employer] Phone: P [place] 53 degrees [employer] Phone: P-R Interval 172 ms [employer] Phone: Q-T Interval 426 ms [employer] Phone: QRS Duration 88 ms [employer] Phone: QTc Calculation (Bazett) 435 ms [employer] Phone: R [place] -7 degrees [employer] Phone: T [place] 36 degrees [employer] Phone: Ventricular Rate 63 BPM [employer] Work Phone: [employer] Work Phone: EKG 12 Leadon 10-20-2021 Normal sinus rhythm Normal ECG When compared with ECG of 09-OCT-2019 23:08, No significant change was found [facility] STV Vicenta Serrano MD - 10/20/2021 Normal sinus rhythm Normal ECG When compared with ECG of 09-OCT-2019 23:08, No significant change was found [employer] Phone: Hemoglobin A1Con 10-20-2021 Glucose [Mass/Vol] 117 mg/dL Normal [facility] Comment on above: Result Comment: The ADA and AACC recommend providing the estimated average glucose result to permit better patient understanding of their HBA1c result. Performed By: #### C BC, TROPI, BMPX, GLYHGB, LIPR ####[facility] [id number] [place], [place] [id number] lab Director: Darius Sarah MD HbA1c (Bld) [Mass fraction] 5.7 % Normal 4.0-6.0 [facility] Comment on above: Performed By: #### C BC, TROPI, BMPX, GLYHGB, LIPR ####[employer] [id number] [place], [place] [id number] lab Director: Darius Sarah MD Hemoglobin A1con 10-20-2021 Glucose [Mass/Vol] 117 mg/dL [facility] Comment on above: The ADA and AACC rec ommend providing the estimated average glucose result to permit better patient understanding of their HBA1c result. HbA1c (Bld) [Mass fraction] 5.7 % 4.0 - 6.0 % [facility] Lipid Profileon 10-20-2021 Cholesterol [Mass/Vol] 151 mg/dL Normal <200 [facility] Comment on above: Result Comment: Cholesterol Guidelines: <200 Desirable 200-240 Borderline >240 Undesirable Performed By: #### C BC, TROPI, BMPX, GLYHGB, LIPR ####[place] [id number] [place], [place] [id number] Lab Director: Darius Sarah MD Cholesterol in HDL [Mass/Vol] 30 mg/dL Low >40 [facility] Comment on above: Result Comment: HDL Guidelines: <40 Undesirable 40-59 Borderline >59 Desirable Performed By: #### C BC, TROPI, BMPX, GLYHGB, LIPR ####[address] [address] Lab Director: Darius Sarah MD Cholesterol in LDL [Mass/Vol] 80 mg/dL Normal 0-130 [facility] Comment on above: Result Comment: LDL Guidelines: <100 Desirable 100-129 Near to/above Desirable 130-159 Borderline >159 Undesirable Direct (measured) LDL and calculated LDL are not interchangeable tests. Performed By: #### C BC, TROPI, BMPX, GLYHGB, LIPR ####[facility] [id number] [place] [id number] Lab Director: Darius Sarah MD Cholesterol.total/Audelia sterol in HDL [Mass ratio] 5.0 {ratio} High <5 [facility] Comment on above: Performed By: #### C BC, TROPI, BMPX, GLYHGB, LIPR ####[address] [address] Lab Director: Darius Sarah MD Triglyceride [Mass/Vol] 204 mg/dL High <150 [facility] Comment on above: Result Comment: Triglyceride Guidelines: <150 Desirable 150-199 Borderline 200-499 High >499 Very high Based on AHA Guidelines for fasting triglyceride, April 2012. Performed By: #### C BC, TROPI, BMPX, GLYHGB, LIPR ####[id number] [place] [address] Lab Director: Darius Sarah MD Lipid panel - fastingon Cholesterol [Mass/Vol] 151 mg/dL <200 [facility] Comment on above: Cholesterol Guidelines: <200 Desirable 200-240 Borderline >240 Undesirable Cholesterol in HDL [Mass/Vol] 30 mg/dL Low >40 [facility] Comment on above: HDL Guidelines: <40 Undesirable 40-59 Borderline >59 Desirable Cholesterol in LDL [Mass/Vol] 80 mg/dL 0 - 130 mg/dL [facility] Comment on above: LDL Guidelines: <100 Desirable 100-129 Near to/above Desirable 130-159 Borderline >159 Undesirable Direct (measured) LDL and calculated LDL are not interchangeable tests. Cholesterol.total/Audelia sterol in HDL [Mass ratio] 5 {ratio} High <5 [facility] Triglyceride [Mass/Vol] 204 mg/dL High <150 M [facility] Comment on above: Triglyceride Guidelines: <150 Desirable 150-199 Borderline 200-499 High >499 Very high Based on AHA Guidelines for fasting triglyceride, April 2012. MRI BRAIN WO CONTRASTon MRI BRAIN WO CONTRAST EXAMINATION: MRI OF [...] mass present. The proximal portions of the [place] demonstrate normal flow voids. ORBITS: The visualized portion of the orbits demonstrate no acute abnormality. SINUSES: The visualized paranasal sinuses and mastoid air cells demonstrate no acute abnormality. BONES/SOFT TISSUES: Bone marrow signal intensity is normal. IMPRESSION: Normal MRI of the brain. Interpreted by: Ashish Ogden MD Signed by: Ashish Ogden MD 10/20/21 Final result Normal [facility] MRI brain without contraston 10-20-2021 Normal [facility] of the br ain. [facility] EX[facility]: MRI OF THE BRAIN WITHOUT CONTRAST [...] mass present. The proximal portions of the [place] demonstrate normal flow voids. ORBITS: The visualized portion of the orbits demonstrate no acute abnormality. SINUSES: The visualized paranasal sinuses and mastoid air cells demonstrate no acute abnormality. BONES/SOFT TISSUES: Bone marrow signal intensity is normal. [facility] Ashish Ogden MD - 10/20/2021 EXAMINATION: MRI OF THE [...] mass present. The proximal portions of the [place] demonstrate normal flow voids. ORBITS: The visualized portion of the orbits demonstrate no acute abnormality. SINUSES: The visualized paranasal sinuses and mastoid air cells demonstrate no acute abnormality. BONES/SOFT TISSUES: Bone marrow signal intensity is normal. IMPRESSION: Normal MRI of the brain. [employer] Work Phone: Radiology Study observation (narrative) [employer] [facility] Work Phone: MRI brain without contrastOr dered By: Ashish Ogden on 10-20-2021 [employer] Work Phone: No Panel Informationon 10-20 Interpretation and review of laboratory results Abnormal [facility] [id number] 10-20-2021 SARS-CoV-2 (COVID-19) RNA FAUSTINA+probe Ql (Unsp spec) Not detected Normal NOTDET [facility] Comment on above: Result Comment: Rapid NAAT: [...] management decisions. Fact sheet for Healthcare Providers: https://www.fda.gov/media/798436/download Fact sheet for Patients: https://www.fda.gov/media/464250/download Methodology: Isothermal Nucleic Acid Amplification Performed By: #### C OVRB #### [employer] [address] [place] [address] Company Accountant: Darius Sarah MD Troponinon 10-20-2021 Troponin, High Sens <6 Normal 0-14 [facility] Comment on above: Result Comment: High Sensitivity Troponin values cannot be compared with other Troponin methodologies. Patients with high levels of Biotin oral intake (i.e >5mg/day) may have falsely decreased Troponin levels. Samples collected within 8 hours of biotin intake may require additional information for diagnosis. Performed By: #### C BC, TROPI, BMPX, GLYHGB, LIPR #### [employer] [address] [place] [address] Company Accountant: Darius Sarah MD Troponin, High Sensitivity <6 0 - 14 ng/L [facility] Comment on above: High Sensitivity Troponin values cannot be compared with other Troponin methodologies. Patients with high levels of Biotin oral intake (i.e >5mg/day) may have falsely decreased Troponin levels. Samples collected within 8 hours of biotin intake may require additional information for diagnosis. [facility] [facility] APTTon 10-19-2021 aPTT Coag (Bld) [Time] 27.0 s [facility] Comment on above: IV Heparin Therapy Range: 62.0-94.0 [employer] [facility] CBC with Auto Differentialon 10-19-2021 Absolute Eos # 0.09 [facility] th Absolute Immature Granulocyte <0.03 [facility] Absolute Lymph # 2.20 [facility] alth Absolute [place] # 0.57 [facility] lt Basophils (Bld) [#/Vol] 0.06 10*3/uL [facility] Basophils/100 WBC (Bld) 1 % 0 - 2 % [facility] Eosinophils/100 WBC (Bld) 1 % 1 - 4 % [facility] Hematocrit (Bld) [Volume fraction] 38.2 % 36.3 - 47.1 % [facility] Hemoglobin.gastrointest inal spec 1 Ql (Stl) 12.9 g/dL 11.9 - 15.1 g/dL [facility] Immature granulocytes/100 WBC (Bld) 0 % 0 [facility] Interpretation and review of laboratory results Abnormal [facility] Lymphocytes/100 WBC (Bld) 23 % Low 24 - 43 % [facility] MCH (RBC) [Entitic mass] 30.4 pg 25.2 - 33.5 pg [facility] MCHC (RBC) [Mass/Vol] 33.8 g/dL 28.4 - 34.8 g/dL [facility] MCV (RBC) [Entitic vol] 89.9 fL 82.6 - 102.9 fL [facility] Monocytes/100 WBC (Bld) 6 % 3 - 12 % M [facility] NRBC Automated 0.0 0.0 per 100 WBC [facility] Platelet distribution width (Bld) [Ratio] 11.9 % 11.8 - 14.4 % [facility] Platelet mean volume (Bld) [Entitic vol] 10.1 fL 8.1 - 13.5 fL [facility] Platelets (Bld) [#/Vol] 317 10*3/uL [facility] RBC (Bld) [#/Vol] 4.25 10*6/uL 3.95 - 5.11 m/uL [facility] Segmented neutrophils/100 WBC (Bld) 69 % High 36 - 65 % [facility] Segs Absolute 6.60 [facility] (Bld) [#/Vol] 9.5 10*3/uL [facility] CT Head WO Contraston 2021 Radiology Study observation (narrative) [facility] Work Phone: CTA HEAD NECK W CONTRASTon 0 10-19-2021 Radiology Study observation (narrative) [facility] Work Phone: Comprehensive Metabolic Pane l w/ Reflex to MGon 10-19-2021 Albumin [Mass/Vol] 4.3 g/dL 3.5 - 5.2 g/dL [facility] Albumin/Globulin [Mass ratio] 1.4 {ratio} [facility] ALP (Bld) [Catalytic activity/Vol] 95 U/L 35 - 104 U/L [facility] ALT [Catalytic activity/Vol] 28 U/L 5 - 33 U/L [facility] Anion gap [Moles/Vol] 9 mmol/L 9 - 17 mmol/L [facility] AST [Catalytic activity/Vol] 23 U/L <32 [facility] Bilirubin [Mass/Vol] 0.24 mg/dL Low 0.3 - 1 .2 mg/dL [facility] Calcium [Mass/Vol] 9.3 mg/dL 8.6 - 10. 4 mg/dL [facility] Chloride [Moles/Vol] 102 mmol/L 98 - 10 7 mmol/L [facility] CO2 [Moles/Vol] 25 mmol/L 20 - 31 mmol/L [facility] Creatinine [Mass/Vol] 0.75 mg/dL 0.50 - 0.90 mg/dL [facility] Free PSA/Total PSA [Mass fraction] 7.3 g/dL 6.4 - 8.3 g/dL [facility] GFR >60 >60 mL/min [facility] GFR Non- >60 >60 mL/min [facility] Glucose [Mass/Vol] 103 mg/dL High 70 - 99 mg/dL [facility] Interpretation and review of laboratory results Abnormal [facility] Potassium [Moles/Vol] 4.3 mmol/L 3.7 - 5.3 mmol/L [facility] Sodium [Moles/Vol] 136 mmol/L 135 - 144 mmol/L [facility] Urea nitrogen (BldV) [Mass/Vol] 10 mg/dL 6 - 20 mg/dL [facility] Urea nitrogen/Creatinine (Bld) [Mass ratio] 13 [facility] Glucose, Whole Bloodon 10-19 Glucose [Mass/Vol] 105 mg/dL High 74 - 100 mg/dL [facility] Interpretation and review of laboratory results Abnormal [facility] Laboratory - Chemistry and C hemistry - challengeon 10-19-2021 GFR/1.73 sq M.predicted MDRD (S/P/Bld) [Vol rate/Area] [facility] Comment on above: Average GFR for 40-4 9 years old: 99 mL/min/1.73sq m Chronic Kidney Disease: <60 mL/min/1.73sq m Kidney failure: <15 mL/min/1.73sq m eGFR calculated using average adult body mass. Additional eGFR calculator available at: http://www.CloudX.Adocia/multiple_crcl_2012.htm Stage 1: Some kidney damage normal GFR [...] No aneurysm. CAROTID STENOSIS REFERENCE: The [place] Symptomatic Carotid Endarterectomy Trial (NASCET) is a [...] venous sinus thrombosis on this non-dedicated study. [facility] Teresa Johnson MD - 10/19/2021 EXAMINATION: [...] No aneurysm. CAROTID STENOSIS REFERENCE: The [place] Symptomatic Carotid Endarterectomy Trial (NASCET) is a method of quantifying internal carotid artery stenosis. Distal internal carotid artery diameter as the denominator for stenosis measurement: MILD = <50% stenosis. MODERATE = 50-69% stenosis. SEVERE = 70-89% stenosis. HAIRLINE/CRITICAL = 90-99% stenosis. OCCLUDED = 100% stenosis. [employer] Work Phone: No Panel InformationOrdered By: Teresa Herzog on 10-19-2021 [employer] Work Phone: Protime-INRon 10-19-2021 INR Coag (Bld) [Relative time] 1.0 {INR} [facility] [facility] Comment on above: Non-therapeutic Range: INR = 0.9-1.2 Therapeutic Range: Moderate Anticoagulant Intensity: INR = 2.0-3.0 High Anticoagulant Intensity: INR = 2.5-3.5 PT Coag (PPP) [Time] 13.3 s [facility] Troponinon 10-19-2021 Troponin, High Sensitivity <6 0 - 14 ng/L [facility] Comment on above: High Sensitivity Troponin values cannot be compared with other Troponin methodologies. Patients with high levels of Biotin oral intake (i.e >5mg/day) may have falsely decreased Troponin levels. Samples collected within 8 hours of biotin intake may require additional information for diagnosis. [facility] [facility] XR CHEST PORTABLEon 10-20-19 22 1. No acute cardiopulmonary abnormality. [facility] RIS CONSOLIDATED EXAMINATION: ONE XRAY VIEW OF THE CHEST 10/19/2021 8:40 pm COMPARISON: None. HISTORY: ORDERING SYSTEM PROVIDED HISTORY: stroke symptoms TECHNOLOGIST PROVIDED HISTORY: stroke symptoms FINDINGS: The lungs are clear, no effusion. No pneumothorax. Heart is normal size. Mediastinal and hilar contours are within normal limits. Bony thorax no acute abnormality. [facility] Antony Dominguez MD - 10/19/2021 EXAMINATION: ONE XRAY VIEW OF THE CHEST 10/19/2021 8:40 pm COMPARISON: None. HISTORY: ORDERING SYSTEM PROVIDED HISTORY: stroke symptoms TECHNOLOGIST PROVIDED HISTORY: stroke symptoms FINDINGS: The lungs are clear, no effusion. No pneumothorax. Heart is normal size. Mediastinal and hilar contours are within normal limits. Bony thorax no acute abnormality. IMPRESSION: 1. No acute cardiopulmonary abnormality. [employer] Work Phone: Radiology Study observation (narrative) [employer] [facility] Work Phone: XR CHEST PORTABLEOrdered By: Antony Nichols on 10-19-2021 [employer] Phone: [id number] COMPLETEon [facility] Transthoracic Echocardiography Report (TTE) Patient Name ADRIÁN Date of Study 10/07/2021 MIKE N Date of 1975 Gender Female Age 45 year(s) Race Room Number 0328 Height: 64 inch, 162.56 cm Corporate ID [id number] Weight: 190 pounds, 86.2 kg # Patient Acct [id number] BSA: 1.91 m^2 BMI: 32.61 # kg/m^2 MR # [id number] [employer] Interpreting Physician Nat Mora Fellow Referring Nurse Practitioner Interpreting Referring Physician Rl Blanc Fellow Type of Study TTE procedure:2D Echocardiogram, M-Mode, Doppler, Color Doppler. Procedure Date Date: 10/07/2021 Start: 09:52 AM Study Location: [facility] Indications:Chest pain. History / Tech. Comments: [...] E' velocity:0.15 m/s Lateral Wall E/E':3.4 MHPN T [facility] Nat Mora MD - 10/07/2021 [facility] Transthoracic Echocardiography Report (TTE) Patient Name ADRIÁN Date of Study 10/07/2021 MIKE N Date of 1975 Gender Female Age 45 year(s) Race Room Number 0328 Height: 64 inch, 162.56 cm Corporate ID [id number] Weight: 190 pounds, 86.2 kg # Patient Acct [id number] BSA: 1.91 m^2 BMI: 32.61 # kg/m^2 MR # [id number] [employer] Interpreting Physician Nat Mora Fellow Referring Nurse Practitioner Interpreting Referring Physician Rl Blanc Fellow Type of Study TTE procedure:2D Echocardiogram, M-Mode, Doppler, Color Doppler. Procedure Date Date: 10/07/2021 Start: 09:52 AM Study Location: [facility] Indications:Chest pain. History / Tech. Comments: [...] Wall E' velocity:0.15 m/s Lateral Wall E/E':3.4 [facility] [facility] Work Phone: [facility] Work Phone: EKG 12 LeadOrdered By: Aidan Richter on 10-07-2021 Atrial Rate 86 BPM [employer] Work Phone: P [place] 70 degrees [employer] Work Phone: P-R Interval 164 ms [employer] Work Phone: Q-T Interval 378 ms [employer] [facility] Work Phone: QRS Duration 80 ms [employer] Work Phone: QTc Calculation (Bazett) 452 ms [employer] Work Phone: R [place] -10 degrees [employer] Work Phone: T [place] 59 degrees [employer] Work Phone: Ventricular Rate 86 BPM [employer] Work Phone: [employer] Work Phone: EKG 12 Leadon 10-07-2021 Normal sinus rhythm Possible Left atrial enlargement Nonspecific ST abnormality Abnormal ECG When compared with ECG of 08-JUL-2021 14:55, Vent. rate has increased BY 29 BPM Confirmed by GILMAR RICHTER ([id number]) on 10/07/2021 12:44:46 PM [facility] RADIOLOGY Gilmar Richter MD - 10/07/2021 Normal sinus rhythm Possible Left atrial enlargement Nonspecific ST abnormality Abnormal ECG When compared with ECG of 08-JUL-2021 14:55, Vent. rate has increased BY 29 BPM Confirmed by GILMAR RICHTER ([id number]) on 10/07/2021 12:44:46 PM [facility] [facility] Work Phone: EKG 12 leadon 10-07-2021 Atrial Rate 72 BPM [employer] Work Phone: P [place] 53 degrees [employer] Work Phone: P-R Interval 172 ms [employer] [facility] Work Phone: Q-T Interval 456 ms [facility] Work Phone: QRS Duration 88 ms [facility] Work Phone: QTc Calculation (Bazett) 499 ms [employer] Work Phone: R [place] 3 degrees [employer] Work Phone: T [place] 39 degrees [employer] Work Phone: Ventricular Rate 72 BPM [employer] Work Phone: Normal sinus rhythm Nonspecific T wave abnormality Abnormal ECG When compared with ECG of 06-OCT-2021 19:51, (unconfirmed) Nonspecific T wave abnormality now evident in Inferior leads Nonspecific T wave abnormality, worse in Lateral leads Confirmed by GILMAR RICHTER ([id number]) on 10/07/2021 12:44:30 PM [facility] RADIOLOGY Gilmar Richter MD - 10/07/2021 Normal sinus rhythm Nonspecific T wave abnormality Abnormal ECG When compared with ECG of 06-OCT-2021 19:51, (unconfirmed) Nonspecific T wave abnormality now evident in Inferior leads Nonspecific T wave abnormality, worse in Lateral leads Confirmed by GILMAR RICHTER ([id number]) on 10/07/2021 12:44:30 PM [facility] [facility] Work Phone: [employer] Work Phone: EKG Rhythm Stripon 2 [facility] STRESS - MYOVIEWon 2 Nat Mora MD - 10/07/2021 1:31 PM EDT [address] [id number] CARDIAC STRESS TEST PATIENT NAME: MIKE SHARIF : 1975 MED REC NO: [id number] ROOM: 0328 ACCOUNT NO: [id number] ADMIT DATE: 10/06/2021 PROVIDER: Nat Mora MD CARDIOVASCULAR DIAGNOSTIC DEPARTMENT DATE OF STUDY: 10/06/2021 ORDERING PROVIDER: Rl Blanc MD PRIMARY CARE PROVIDER: Ena Fung APRN-[facility] INTERPRETING PHYSICIAN: Nat Mora MD PHARMACOLOGIC MYOCARDIAL [...] a calcium channel christos. NAT MORA MD JIMMY/CANDE_EDIT Doc#: Unknown CC: Ena Blanc MD [facility] [facility] Work Phone: [facility] [facility] Work Phone: Troponinon 10-07-2021 Troponin, High Sensitivity 6 ng/L 0 - 14 ng/L [facility] Comment on above: High Sensitivity Troponin values cannot be compared with other Troponin methodologies. Patients with high levels of Biotin oral intake (i.e >5mg/day) may have falsely decreased Troponin levels. Samples collected within 8 hours of biotin intake may require additional information for diagnosis. [facility] Basic Metabolic Panelon 09-17 Anion gap [Moles/Vol] 12 mmol/L 9 - 17 mmol/L [facility] Calcium [Mass/Vol] 9.2 mg/dL 8.6 - 10. 4 mg/dL [facility] Chloride [Moles/Vol] 103 mmol/L 98 - 10 7 mmol/L [facility] CO2 [Moles/Vol] 22 mmol/L 20 - 31 mmol/L [facility] Creatinine [Mass/Vol] 0.61 mg/dL 0.50 - 0.90 mg/dL [facility] GFR >60 >60 mL/min [employer] GFR Non- >60 >60 mL/min [facility] Glucose [Mass/Vol] 113 mg/dL High 70 - 99 mg/dL [facility] Interpretation and review of laboratory results Abnormal [facility] Potassium [Moles/Vol] 3.4 mmol/L Low 3.7 - 5.3 mmol/L [facility] Sodium [Moles/Vol] 137 mmol/L 135 - 144 mmol/L [facility] Urea nitrogen (BldV) [Mass/Vol] 6 mg/dL 6 - 20 mg/dL [facility] Urea nitrogen/Creatinine (Bld) [Mass ratio] 10 [facility] CBC with Auto Differentialon 10-06-2021 Absolute Eos # 0.11 [facility] Absolute Immature Granulocyte <0.03 [facility] Absolute Lymph # 3.53 [facility] alth Absolute [place] # 0.73 [facility] lth Basophils (Bld) [#/Vol] 0.06 10*3/uL [facility] Basophils/100 WBC (Bld) 1 % 0 - 2 % [facility] Eosinophils/100 WBC (Bld) 1 % 1 - 4 % [facility] Hematocrit (Bld) [Volume fraction] 40.0 % 36.3 - 47.1 % [facility] Hemoglobin.gastrointest inal spec 1 Ql (Stl) 13.7 g/dL 11.9 - 15.1 g/dL [facility] Immature granulocytes/100 WBC (Bld) 0 % 0 [facility] Lymphocytes/100 WBC (Bld) 35 % 24 - 43 % [facility] MCH (RBC) [Entitic mass] 30.9 pg 25.2 - 33.5 pg [facility] MCHC (RBC) [Mass/Vol] 34.3 g/dL 28.4 - 34.8 g/dL [facility] MCV (RBC) [Entitic vol] 90.1 fL 82.6 - 102.9 fL [facility] Monocytes/100 WBC (Bld) 7 % 3 - 12 % [facility] NRBC Automated 0.0 0.0 per 100 WBC [facility] Platelet distribution width (Bld) [Ratio] 12.3 % 11.8 - 14.4 % [facility] Platelet mean volume (Bld) [Entitic vol] 9.9 fL 8.1 - 13.5 fL [facility] Platelets (Bld) [#/Vol] 352 10*3/uL [facility] RBC (Bld) [#/Vol] 4.44 10*6/uL 3.95 - 5.11 m/uL [facility] Segmented neutrophils/100 WBC (Bld) 56 % 36 - 65 % [facility] Segs Absolute 5.66 [facility] h WBC (Bld) [#/Vol] 10.1 10*3/uL [facility] D-Dimer, Quantitativeon - D-Dimer, Quant 0.52 [facility] Comment on above: When combined with a [...] more prevalent in patients with distal DVT. [facility] Hepatic Function Panelon Albumin [Mass/Vol] 4.7 g/dL 3.5 - 5.2 g/dL [facility] Albumin/Globulin [Mass ratio] 1.6 {ratio} [facility] ALP (Bld) [Catalytic activity/Vol] 97 U/L 35 - 104 U/L [facility] ALT [Catalytic activity/Vol] 45 U/L High 5 - 33 U/L [facility] AST [Catalytic activity/Vol] 32 U/L High <32 [facility] Bilirubin [Mass/Vol] 0.20 mg/dL Low 0.3 - 1 .2 mg/dL [facility] Bilirubin, Indirect Can not be calculated 0.00 - 1.00 mg/dL [facility] Bilirubin.indirect [Mass/Vol] mg/dL <0.31 mg/dL [facility] Free PSA/Total PSA [Mass fraction] 7.6 g/dL 6.4 - 8.3 g/dL [facility] Interpretation and review of laboratory results Abnormal [facility] Laboratory - Chemistry and C hemistry - challengeon 10-06-2021 GFR/1.73 sq M.predicted MDRD (S/P/Bld) [Vol rate/Area] [facility] Comment on above: Average GFR for 40-4 9 years old: 99 mL/min/1.73sq m Chronic Kidney Disease: <60 mL/min/1.73sq m Kidney failure: <15 mL/min/1.73sq m eGFR calculated using average adult body mass. Additional eGFR calculator available at: http://www.Hellotravel/multiple_crcl_2012.htm Stage 1: Some kidney damage normal GFR Stage 2: Mild kidney damage GFR 60-89 Stage 3: Moderate kidney damage GFR 30-59 Stage 4: Severe kidney damage GFR 15-29 Stage 5: Severe kidney damage GFR <15 ESRD - chronic treatment by dialysis or transplant Lipaseon 10-06-2021 Lipase [Catalytic activity/Vol] 23 U/L 13 - 60 U/L [facility] No Panel Informationon 10-06 [facility] Troponinon 10-06-2021 Troponin, High Sensitivity <6 0 - 14 ng/L [facility] Comment on above: High Sensitivity Troponin values cannot be compared with other Troponin methodologies. Patients with high levels of Biotin oral intake (i.e >5mg/day) may have falsely decreased Troponin levels. Samples collected within 8 hours of biotin intake may require additional information for diagnosis. [facility] Troponin, High Sensitivity <6 0 - 14 ng/L [facility] Comment on above: High Sensitivity Troponin values cannot be compared with other Troponin methodologies. Patients with high levels of Biotin oral intake (i.e >5mg/day) may have falsely decreased Troponin levels. Samples collected within 8 hours of biotin intake may require additional information for diagnosis. [facility] XR CHEST PORTABLEon 10-07-19 22 1. No definite acute cardiopulmonary disease; low lung volumes typical of expiratory phase respiration. Follow-up full inspiration PA and lateral chest may be useful for better characterization of pulmonary findings. 2. Pulmonary sequela typical of that seen with smoking. 3. Wires and cardiac leads overlying the chest could obscure an underlying finding. [facility]ATED EXAMINATION: ONE XRAY VIEW OF [...] the chest could obscure an underlying finding. [facility] Rickey Kwan MD - 10/06/2021 EXAMINATION: [...] the chest could obscure an underlying finding. [facility] Work Phone: Radiology Study observation (narrative) [employer] [facility] Work Phone: XR CHEST PORTABLEOrdered By: Rickey Kwan on 10-06-2021 [facility] Work Phone: COVID-19on 08-19-2021 SARS-CoV-2 (COVID-19) RNA FAUSTINA+probe Ql (Unsp spec) [facility] SARS-CoV-2 (COVID-19) RNA FAUSTINA+probe Ql (Unsp spec) Not detected Not Detected [facility] Comment on above: The specimen is NEGATIVE for SARS-CoV-2, the novel coronavirus associated with COVID-19. A negative result does not rule out COVID-19. Pedro SARS-CoV-2 for use on the Pedro [employer] is a real-time RT-PCR test intended [...] this assay. Fact sheet for Healthcare Providers: https://www.fda.gov/media/292174/download Fact sheet for Patients: https://www.fda.gov/media/011510/download METHODOLOGY: RT-PCR Source .NASOPHARYNGEAL SWAB [facility] Culture, Urineon 08-15-2021 Bacteria identified Cx Nom (U) NO SIGNIFICANT GROWTH [facility] Special Requests NOT REPORTED [facility] Specimen Description .CLEAN CATCH URINE [facility] CBC Auto Differentialon 07-20 Absolute Eos # 0.13 [facility] Absolute Immature Granulocyte 0.05 [facility] Absolute Lymph # 3.01 [facility] Absolute [place] # 0.74 [facility] lt Basophils (Bld) [#/Vol] 0.06 10*3/uL [facility] Basophils/100 WBC (Bld) 1 % 0 - 2 % [facility] Differential Type NOT REPORTED [facility] Eosinophils/100 WBC (Bld) 1 % 1 - 4 % [facility] Hematocrit (Bld) [Volume fraction] 39.4 % 36.3 - 47.1 % [facility] Hemoglobin.gastrointest inal spec 1 Ql (Stl) 13.2 g/dL 11.9 - 15.1 g/dL [facility] Immature granulocytes/100 WBC (Bld) 0 % 0 [facility] Interpretation and review of laboratory results Abnormal [facility] Lymphocytes/100 WBC (Bld) 26 % 24 - 43 % [facility] MCH (RBC) [Entitic mass] 30.1 pg 25.2 - 33.5 pg [facility] MCHC (RBC) [Mass/Vol] 33.5 g/dL 28.4 - 34.8 g/dL [facility] MCV (RBC) [Entitic vol] 89.7 fL 82.6 - 102.9 fL [facility] Monocytes/100 WBC (Bld) 6 % 3 - 12 % M [facility] NRBC Automated 0.0 0.0 per 100 WBC [facility] Platelet distribution width (Bld) [Ratio] 11.9 % 11.8 - 14.4 % [facility] Platelet Estimate NOT REPORTED [facility] Platelet mean volume (Bld) [Entitic vol] 9.7 fL 8.1 - 13.5 fL [facility] Platelets (Bld) [#/Vol] 360 10*3/uL [facility] RBC (Bld) [#/Vol] 4.39 10*6/uL 3.95 - 5.11 m/uL [facility] RBC (Bld) [#/Vol] NOT REPORTED [facility] Segmented neutrophils/100 WBC (Bld) 66 % High 36 - 65 % [facility]s [facility] [#/Vol] 11.5 10*3/uL High [facility] WBC (Bld) [#/Vol] NOT REPORTED [facility] TYPE AND SCREENon 08-14-2021 ABO/Rh Positive [facility] Arm Band Number [id number] [facility] Expiration Date 08/21/2021,2359 [facility] VL DUP UPPER EXTREMITY VENOU S RIGHTon 07-08-2021 Jarred Gómez MD - 07/08/2021 [facility] Vascular Upper Extremities Veins Procedure Patient Name ADRIÁN Date of Study 07/08/2021 MIKE N Date of 1975 Gender Female Age 45 year(s) Race Room Number 09 Corporate ID [id number] # Patient Acct [id number] # MR # [id number] [employer] Maggie Bowman Kelly, T Interpreting Physician Jarred Gómez MD Referring Referring Physician Nurse Practitioner Additional Comments Results faxed to ER 07/08/2021 @[id number]. Procedure Type of Study: Veins: Upper Extremities [...] + + + +------- --- + !Location !Visualized!Gracie ity!Thrombosis! + + + +------- --- + [...] ! ! + --+ --+ --- + [facility] Work Phone: Radiology Study observation (narrative) [employer] Phone: VL DUP UPPER EXTREMITY VENOU S RIGHTOrdered By: Jarred Gómez on 07-08-2021 [facility] Phone: Catheterization and angiogra phy procedure details panelon 06-19-2021 Cardiac Diagnostic Report Demographics Patient ADRIÁN Bee Date of Study 06/19/2021 Name Date of 1975 Gender Female Age 45 year(s) Race Room [id number]^DELONTE Height: 64 inch, 162.56 cm Number Corporate [id number] Weight: 183 pounds, 83 kg ID # Patient [id number] BSA: 1.88 m^2 BMI: 31.41 Acct # kg/m^2 MR # [id number] Performing Physician Ronan Rodriguez Referring Physician # [...] for LV Pressure. Contrast Material: - Isovue 32950 ml Fluoroscopy Time: Diagnostic: 2:07 minutes. Total: [...] -----+ +------- ---+ (more content not included)... [facility] Ronan Rodriguez MD - 06/19/2021 Cardiac Diagnostic Report Demographics Patient ADRIÁN Bee Date of Study 06/19/2021 Name Date of 1975 Gender Female Age 45 year(s) Race Room [id number]^MICHAEL^RONAN Height: 64 inch, 162.56 cm Number Corporate [id number] Weight: 183 pounds, 83 kg ID # Patient [id number] BSA: 1.88 m^2 BMI: 31.41 Acct # kg/m^2 MR # [id number] Performing Physician Ronan Rodriguez Referring Physician # Assisting Physician Additional Comments ASA & Mallampati documented in [facility] by Physician. H&P reviewed and [...] for LV Pressure. Contrast Material: - Isovue 14268 ml Fluoroscopy Time: Diagnostic: 2:07 minutes. Total: [...] assessed as CCS III according to the Moroccan clinical classification. Hemodynamics Condition: Baseline Room Air Estimated: 179.81Heart Rate: 59 bpm Pressure +-----+ --- + !Site !Pressure ! +-----+ -------- (more content not included)... [facility] Work Phone: [facility] Work Phone: Catheterization and angiogra phy procedure details panelOrdered By: Unknown Result on 06-19-2021 [facility] Basic Metabolic Panelon 11- Anion gap [Moles/Vol] 10 mmol/L 9 - 17 mmol/L [facility] Calcium [Mass/Vol] 9.1 mg/dL 8.6 - 10. 4 mg/dL [facility] Chloride [Moles/Vol] 104 mmol/L 98 - 10 7 mmol/L [facility] CO2 [Moles/Vol] 25 mmol/L 20 - 31 mmol/L [facility] Creatinine [Mass/Vol] 0.65 mg/dL 0.50 - 0.90 mg/dL [facility] GFR >60 >60 mL/min [facility] GFR Non- >60 >60 mL/min [facility] Glucose [Mass/Vol] 94 mg/dL 70 - 99 mg/dL [facility] Potassium [Moles/Vol] 4.0 mmol/L 3.7 - 5.3 mmol/L [facility] Sodium [Moles/Vol] 139 mmol/L 135 - 144 mmol/L [facility] Urea nitrogen (BldV) [Mass/Vol] 8 mg/dL 6 - 20 mg/dL [facility] Urea nitrogen/Creatinine (Bld) [Mass ratio] 12 [facility] CBC Auto Differentialon 05-19 Absolute Eos # 0.08 [facility] th Absolute Immature Granulocyte <0.03 [facility] Absolute Lymph # 1.74 [facility] alth Absolute [place] [facility] 0.38 [facility] Basophils (Bld) [#/Vol] 0.05 10*3/uL [facility] Basophils/100 WBC (Bld) 1 % 0 - 2 % [facility] Differential Type NOT REPORTED [facility] Eosinophils/100 WBC (Bld) 1 % 1 - 4 % [facility] Hematocrit (Bld) [Volume fraction] 37.4 % 36.3 - 47.1 % [facility] Hemoglobin.gastrointest inal spec 1 Ql (Stl) 12.4 g/dL 11.9 - 15.1 g/dL [facility] Immature granulocytes/100 WBC (Bld) 0 % 0 [facility] Lymphocytes/100 WBC (Bld) 29 % 24 - 43 % [facility] MCH (RBC) [Entitic mass] 29.8 pg 25.2 - 33.5 pg [facility] MCHC (RBC) [Mass/Vol] 33.2 g/dL 28.4 - 34.8 g/dL [facility] MCV (RBC) [Entitic vol] 89.9 fL 82.6 - 102.9 fL [facility] Monocytes/100 WBC (Bld) 6 % 3 - 12 % [facility] NRBC Automated 0.0 0.0 per 100 WBC [facility] Platelet distribution width (Bld) [Ratio] 11.9 % 11.8 - 14.4 % [facility] Platelet Estimate NOT REPORTED [facility] Platelet mean volume (Bld) [Entitic vol] 9.4 fL 8.1 - 13.5 fL [facility] Platelets (Bld) [#/Vol] 274 10*3/uL [facility] RBC (Bld) [#/Vol] 4.16 10*6/uL 3.95 - 5.11 m/uL [facility] RBC (Bld) [#/Vol] NOT REPORTED [facility] Segmented neutrophils/100 WBC (Bld) 63 % 36 - 65 % [facility] Segs Absolute 3.76 [facility] (Bld) [#/Vol] 6.0 10*3/uL [facility] WBC (Bld) [#/Vol] NOT REPORTED [facility] Laboratory - Chemistry and C hemistry - challengeon 06-06-2021 GFR/1.73 sq M.predicted MDRD (S/P/Bld) [Vol rate/Area] [facility] Comment on above: Average GFR for 40-4 9 years old: 99 mL/min/1.73sq m Chronic Kidney Disease: <60 mL/min/1.73sq m Kidney failure: <15 mL/min/1.73sq m eGFR calculated using average adult body mass. Additional eGFR calculator available at: http://www.Hellotravel/multiple_crcl_2012.htm Stage 1: Some kidney damage normal GFR Stage 2: Mild kidney damage GFR 60-89 Stage 3: Moderate kidney damage GFR 30-59 Stage 4: Severe kidney damage GFR 15-29 Stage 5: Severe kidney damage GFR <15 ESRD - chronic treatment by dialysis or transplant Troponinon 06-06-2021 Troponin Interp NOT REPORTED [facility] Troponin T NOT REPORTED <0.03 ng/mL [facility] Troponin, High Sensitivity <6 0 - 14 ng/L [facility] Comment on above: High Sensitivity Troponin values cannot be compared with other Troponin methodologies. Patients with high levels of Biotin oral intake (i.e >5mg/day) may have falsely decreased Troponin levels. Samples collected within 8 hours of biotin intake may require additional information for diagnosis. [facility] Troponin Interp NOT REPORTED [facility] Troponin T NOT REPORTED <0.03 ng/mL [facility] Troponin, High Sensitivity <6 0 - 14 ng/L [facility] Comment on above: High Sensitivity Troponin values cannot be compared with other Troponin methodologies. Patients with high levels of Biotin oral intake (i.e >5mg/day) may have falsely decreased Troponin levels. Samples collected within 8 hours of biotin intake may require additional information for diagnosis. [facility] XR CHEST PORTABLEon 06-06-20 No acute process. [facility] EXAMINATION: ONE XRAY VIEW OF THE CHEST 06/06/2021 10:04 am COMPARISON: June 17, 2020 HISTORY: ORDERING SYSTEM PROVIDED HISTORY: dizziness TECHNOLOGIST PROVIDED HISTORY: dizziness FINDINGS: The lungs are without acute focal process. There is no effusion or pneumothorax. The cardiomediastinal silhouette is without acute process. The osseous structures are without acute process. [facility] Sal Mena DO - 06/06/2021 EXAMINATION: ONE XRAY VIEW OF THE CHEST 06/06/2021 10:04 am COMPARISON: June 17, 2020 HISTORY: ORDERING SYSTEM PROVIDED HISTORY: dizziness TECHNOLOGIST PROVIDED HISTORY: dizziness FINDINGS: The lungs are without acute focal process. There is no effusion or pneumothorax. The cardiomediastinal silhouette is without acute process. The osseous structures are without acute process. IMPRESSION: No acute process. [facility] Work Phone: Radiology Study observation (narrative) [employer] [employer] Work Phone: XR CHEST PORTABLEOrdered By: Sal Mena on 06-06-2021 [employer] Phone: XR SHOULDER LEFT (MIN 2 VIEW S)on 06-06-2021 No acute findings. [facility] EXAMINATION: XRAY VIEWS OF THE LEFT SHOULDER 06/06/2021 11:10 am COMPARISON: None. HISTORY: ORDERING SYSTEM PROVIDED HISTORY: pain TECHNOLOGIST PROVIDED HISTORY: pain FINDINGS: No fracture, dislocation, or suspicious osseous lesion. [facility] Alvino Edgar - 06/06/2021 EXAMINATION: XRAY VIEWS OF THE LEFT SHOULDER 06/06/2021 11:10 am COMPARISON: None. HISTORY: ORDERING SYSTEM PROVIDED HISTORY: pain TECHNOLOGIST PROVIDED HISTORY: pain FINDINGS: No fracture, dislocation, or suspicious osseous lesion. IMPRESSION: No acute findings. [facility] Work Phone: Radiology Study observation (narrative) [employer] [facility] Work Phone: XR SHOULDER LEFT (MIN 2 VIEW S)Ordered By: Alvino Edgar on 06-06-2021 [employer] Phone: CT ABDOMEN PELVIS WO CONTRAS T Additional Contrast? NoneOrdered By: Ruiz Romero on 05-22-2021 Negative nephrolithi asis or uropathy. No acute inflammatory process or bowel obstruction. [facility] Phone: EXAMINATION: CT OF T HE ABDOMEN AND PELVIS WITHOUT CONTRAST 05/22/2021 6:22 [...] discectomy and fusion. Pedicle screws at L5-S1. [facility] Phone: [place], Mhpn Incoming Radiant Results From [employer] - 05/22/2021 6:45 PM EDT EXAMINATION: CT [...] No acute inflammatory process or bowel obstruction. [facility] Phone: [employer] Phone: Microscopic UrinalysisOrdere d By: Ruiz Romero on 05-22-2021 - [employer] Phone: Amorphous, UA NOT REPORTED None [facility] Work Phone: Bacteria, UA NOT REPORTED None [employer] Work Phone: Casts UA NOT REPORTED /LPF [facility] Phone: Crystals, UA NOT REPORTED None /HPF [employer] Work Phone: Epithelial Cells UA 0 TO 2 [facility] Phone: Mucus, UA NOT REPORTED None [employer] Phone: Other Observations UA NOT REPORTED NOT REQ. [facility] Work Phone: RBC, UA None [facility] Work Phone: Renal Epithelial, UA NOT REPORTED 0 /HPF [facility] Work Phone: Trichomonas, UA NOT REPORTED [facility] Work Phone: WBC, UA None [facility] Work Phone: Yeast, UA NOT REPORTED None [facility] Work Phone: [facility] Work Phone: Urinalysis Reflex to Culture Ordered By: Ruiz Romero on 05-22-2021 Bilirubin Urine Negative NEGATIVE [facility] Work Phone: Color, UA Yellow Yellow [facility] Work Phone: Glucose, Ur Negative NEGATIVE [facility] [employer] Work Phone: Interpretation and review of laboratory results Abnormal [facility] [employer] Work Phone: Ketones Ql (U) Negative NEGATIVE [facility] Work Phone: Leukocyte esterase Test strip Ql (U) Negative NEGATIVE [facility] [employer] Work Phone: Nitrite, Urine Negative NEGATIVE [facility] Work Phone: pH, UA 6.5 [facility] [employer] Work Phone: Protein, UA Negative NEGATIVE [facility] Work Phone: Specific [place], UA 1.010 [facility] [employer] Work Phone: Turbidity UA Clear Clear [facility] Work Phone: Urinalysis Comments NOT REPORTED [facility] Work Phone: Urine Hgb TRACE Abnormal NEGATIVE [facility] Work Phone: Urobilinogen, Urine Normal Normal [facility] [employer] Work Phone: [facility] Work Phone: Laboratory - Microbiology an d Antimicrobial susceptibilityOrdered By: Ena Fung on 05-08-2021 SARS-CoV-2 (COVID-19) RNA FAUSTINA+probe Ql (Resp) Not detected (Not Detected ) [facility] Work Phone: Comment on above: Note: This nucleic a deepti amplification test was developed and itsperformance characteristics determined by [facility]. Nucleic acid amplification tests include RT-PCR and TMA. This test has not been FDA cleared orapproved. This test has been authorized by FDA under anEmergency Use Authorization (EUA). This test is onlyauthorized for the duration of time the declaration thatcircumstances exist justifying the authorization of theemergency use of in vitro diagnostic tests for detection [id number] virus and/or diagnosis of COVID-19 infectionunder section [...] (COVID-19) RNA FAUSTINA+probe Ql (Unsp spec) Performed [facility] Work Phone: Laboratory - Microbiology an d Antimicrobial susceptibilityOrdered By: Veronica Renteria on 03-20-2021 SARS-CoV-2 (COVID-19) RNA FAUSTINA+probe Ql (Resp) Not detected (Not Detected ) [facility] Work Phone: Comment on above: Note: This nucleic a deepti amplification test was developed and itsperformance characteristics determined by [facility]. Nucleic acid amplification tests include RT-PCR and TMA. This test has not been FDA cleared orapproved. This test has been authorized by FDA under anEmergency Use Authorization (EUA). This test is onlyauthorized for the duration of time the declaration thatcircumstances exist justifying the authorization of theemergency use of in vitro diagnostic tests for detection [id number] virus and/or diagnosis of COVID-19 infectionunder section [...] Mild lateral malleol ar soft tissue swelling. [employer] Phone: EXAMINATION: THREE X RAY VIEWS OF THE RIGHT ANKLE; THREE XRAY VIEWS OF THE RIGHT FOOT 01/29/2021 6:44 am COMPARISON: 02/07/2007. HISTORY: ORDERING SYSTEM PROVIDED HISTORY: Ankle pain. Injury. TECHNOLOGIST PROVIDED HISTORY: Ankle pain. Injury. FINDINGS: No fracture, dislocation or joint abnormality. Bone density is normal. Mild soft tissue swelling over the lateral malleolus. [employer] Phone: [place], pn Incoming Radiant Results From [employer] - 01/29/2021 7:24 AM EDT EXAMINATION: THREE [...] IMPRESSION: Mild lateral malleolar soft tissue swelling. [employer] Phone: [employer] Phone: Basic Metabolic PanelOrdered By: Erna Osman on 01-09-2021 Anion gap [Moles/Vol] 9 mmol/L 9 - 17 mmol/L [employer] Phone: Calcium [Mass/Vol] 9.3 mg/dL 8.6 - 10. 4 mg/dL [employer] Phone: Chloride [Moles/Vol] 107 mmol/L 98 - 10 7 mmol/L [employer] Phone: CO2 [Moles/Vol] 24 mmol/L 20 - 31 mmol/L [employer] Phone: Creatinine [Mass/Vol] 0.71 mg/dL 0.50 - 0.90 mg/dL [employer] Phone: GFR >60 >60 mL/min [employer] Phone: GFR Non- >60 >60 mL/min [employer] Phone: Glucose [Mass/Vol] 100 mg/dL High 70 - 99 mg/dL [employer] Phone: Interpretation and review of laboratory results Abnormal [employer] Phone: Potassium [Moles/Vol] 3.7 mmol/L 3.7 - 5.3 mmol/L [employer] Phone: Sodium [Moles/Vol] 140 mmol/L 135 - 144 mmol/L [employer] Phone: Urea nitrogen (BldV) [Mass/Vol] 5 mg/dL Low 6 - 20 mg/dL [employer] Phone: Urea nitrogen/Creatinine (Bld) [Mass ratio] 7 Low [employer] Phone: [employer] Phone: CBC With Auto DifferentialOr dered By: Erna Osman on 01-09-2021 Absolute Eos # 0.10 [employer] Work Phone: Absolute Immature Granulocyte <0.03 [facility] Work Phone: Absolute Lymph # 2.48 [employer] [facility] Work Phone: Absolute [place] # 0.48 [employer] [facility] Work Phone: Basophils (Bld) [#/Vol] 0.04 10*3/uL [facility] Work Phone: Basophils/100 WBC (Bld) 1 % 0 - 2 % M [employer] Work Phone: Differential Type NOT REPORTED [employer] Phone: Eosinophils/100 WBC (Bld) 1 % 1 - 4 % [employer] Phone: Hematocrit (Bld) [Volume fraction] 34.7 % Low 36.3 - 47.1 % [employer] Phone: Hemoglobin.gastrointest inal spec 1 Ql (Stl) 11.4 g/dL Low 11.9 - 15.1 g/dL [facility] Work Phone: Immature granulocytes/100 WBC (Bld) 0 % 0 [employer] Phone: Interpretation and review of laboratory results Abnormal [employer] Phone: Lymphocytes/100 WBC (Bld) 34 % 24 - 43 % [employer] Phone: MCH (RBC) [Entitic mass] 29.8 pg 25.2 - 33.5 pg [employer] Work Phone: MCHC (RBC) [Mass/Vol] 32.9 g/dL 28.4 - 34.8 g/dL [facility] Phone: MCV (RBC) [Entitic vol] 90.6 fL 82.6 - 102.9 fL [employer]ipe Phone: Monocytes/100 WBC (Bld) 7 % 3 - 12 % M [employer] Work Phone: NRBC Automated 0.0 0.0 per 100 WBC Zwipe Phone: Platelet distribution width (Bld) [Ratio] 12.2 % 11.8 - 14.4 % [facility]ipe Phone: Platelet Estimate NOT REPORTED [facility]ipe Phone: Platelet mean volume (Bld) [Entitic vol] 10.1 fL 8.1 - 13.5 fL [employer] Phone: Platelets (Bld) [#/Vol] 282 10*3/uL [employer] Phone: RBC (Bld) [#/Vol] 3.83 10*6/uL Low 3.95 - 5.11 m/uL [employer] Phone: RBC (Bld) [#/Vol] NOT REPORTED [employer] Phone: Segmented neutrophils/100 WBC (Bld) 57 % 36 - 65 % [employer] Phone: Segs Absolute 4.24 [employer] Work Phone: WBC (Bld) [#/Vol] 7.4 10*3/uL [employer] Phone: WBC (Bld) [#/Vol] NOT REPORTED [facility]ipe Phone: Zwipe Phone: Laboratory - Chemistry and C hemistry - challengeOrdered By: Erna Osman on 01-09-2021 GFR/1.73 sq M.predicted MDRD (S/P/Bld) [Vol rate/Area] Zwipe Phone: Comment on above: Average GFR for 40-4 9 years old: 99 mL/min/1.73sq m Chronic Kidney Disease: <60 mL/min/1.73sq m Kidney failure: <15 mL/min/1.73sq m eGFR calculated using average adult body mass. Additional eGFR calculator available at: http://www.globalrph.com/multiple_crcl_2012.htm Stage 1: Some kidney damage normal GFR [...] 8 mmol/L Low 9 - 17 mmol/L [facility] Phone: Calcium [Mass/Vol] 8.7 mg/dL 8.6 - 10. 4 mg/dL [employer] Phone: Chloride [Moles/Vol] 105 mmol/L 98 - 10 7 mmol/L [employer] Phone: CO2 [Moles/Vol] 27 mmol/L 20 - 31 mmol/L [employer] Phone: Creatinine [Mass/Vol] 0.84 mg/dL 0.50 - 0.90 mg/dL [facility] Phone: GFR >60 >60 mL/min [employer] (deja mi) Phone: GFR Non- >60 >60 mL/min Z[facility]ipe Phone: Glucose [Mass/Vol] 131 mg/dL High 70 - 99 mg/dL [facility] Phone: Interpretation and review of laboratory results Abnormal [facility] Phone: Potassium [Moles/Vol] 3.0 mmol/L Low 3.7 - 5.3 mmol/L [employer] Phone: Sodium [Moles/Vol] 140 mmol/L 135 - 144 mmol/L [employer] Phone: Urea nitrogen (BldV) [Mass/Vol] 8 mg/dL 6 - 20 mg/dL Z[employer]ipe Phone: Urea nitrogen/Creatinine (Bld) [Mass ratio] 10 [employer] Work Phone: [employer] Work Phone: CBC auto differentialOrdered By: Alvino Zavala on 01-03-2021 Absolute Eos # 0.09 [facility] Work Phone: Absolute Immature Granulocyte <0.03 [employer] [facility] Work Phone: Absolute Lymph # 2.19 [facility] Work Phone: Absolute [place] # 0.62 [facility] Work Phone: Basophils (Bld) [#/Vol] 0.04 10*3/uL [employer] Work Phone: Basophils/100 WBC (Bld) 1 % 0 - 2 % [facility] Work Phone: Differential Type NOT REPORTED [facility]ipe Phone: Eosinophils/100 WBC (Bld) 1 % 1 - 4 % [employer] [facility] Work Phone: Hematocrit (Bld) [Volume fraction] 32.6 % Low 36.3 - 47.1 % [facility] Phone: Hemoglobin.gastrointest inal spec 1 Ql (Stl) 11.3 g/dL Low 11.9 - 15.1 g/dL [employer] Phone: Immature granulocytes/100 WBC (Bld) 0 % 0 [employer] [facility] Work Phone: Interpretation and review of laboratory results Abnormal [employer]ipe Phone: Lymphocytes/100 WBC (Bld) 34 % 24 - 43 % [employer] Phone: MCH (RBC) [Entitic mass] 30.1 pg 25.2 - 33.5 pg [employer] Phone: MCHC (RBC) [Mass/Vol] 34.7 g/dL 28.4 - 34.8 g/dL [employer] Phone: MCV (RBC) [Entitic vol] 86.9 fL 82.6 - 102.9 fL [employer] [facility] Work Phone: Monocytes/100 WBC (Bld) 10 % 3 - 12 % M [facility] Work Phone: NRBC Automated 0.0 0.0 per 100 WBC Zwipe Phone: Platelet distribution width (Bld) [Ratio] 11.5 % Low 11.8 - 14.4 % [facility] Phone: Platelet Estimate NOT REPORTED [facility] Phone: Platelet mean volume (Bld) [Entitic vol] 10.1 fL 8.1 - 13.5 fL [facility] Phone: Platelets (Bld) [#/Vol] 286 10*3/uL [facility] Phone: RBC (Bld) [#/Vol] 3.75 10*6/uL Low 3.95 - 5.11 m/uL [facility] Phone: RBC (Bld) [#/Vol] NOT REPORTED [facility] Phone: Segmented neutrophils/100 WBC (Bld) 54 % 36 - 65 % [employer] Phone: Segs Absolute 3.45 [employer] Work Phone: WBC (Bld) [#/Vol] 6.4 10*3/uL [facility] [facility] Work Phone: WBC (Bld) [#/Vol] NOT REPORTED [facility] Phone: [facility] Work Phone: EKG Rhythm StripOrdered By: Unknown Result on 01-03-2021 HR 62 [employer] Work Phone: Zwipe Phone: re-labeled to Sinus Rhythm [employer] Phone: Zwipe Phone: re-labeled to Sinus Rhythm [employer] Phone: Zwipe Phone: re-labeled to Sinus Rhythm [employer] Phone: Zwipe Phone: EsophagogastroduodenoscopyOr dered By: Alvino Zavala on 01-03-2021 No dictation [facility]ipe Phone: Zwipe Phone: Laboratory - Chemistry and C hemistry - challengeOrdered By: Alvino Zavala on 01-03-2021 GFR/1.73 sq M.predicted MDRD (S/P/Bld) [Vol rate/Area] Zwipe Phone: Comment on above: Average GFR for 40-4 9 years old: 99 mL/min/1.73sq m Chronic Kidney Disease: <60 mL/min/1.73sq m Kidney failure: <15 mL/min/1.73sq m eGFR calculated using average adult body mass. Additional eGFR calculator available at: http://www.Hellotravel/multiple_crcl_2012.htm Stage 1: Some kidney damage normal GFR Stage 2: Mild kidney damage GFR 60-89 Stage 3: Moderate kidney damage GFR 30-59 Stage 4: Severe kidney damage GFR 15-29 Stage 5: Severe kidney damage GFR <15 ESRD - chronic treatment by dialysis or transplant MagnesiumOrdered By: Erna Osman on 01-03-2021 Magnesium [Mass/Vol] 2.3 mg/dL 1.6 - 2 .6 mg/dL [facility] Phone: Zwipe Phone: Occult Blood ScreenOrdered B y: Alvino Zavala on 01-03-2021 Date, Stool #1 [facility]2021 [facility] Work Phone: Time, Stool #3 NOT REPORTED [facility] Work Phone: [facility] Work Phone: COVID-19, RapidOrdered By: Mignon Zavala on 01-02-2021 SARS-CoV-2 (COVID-19) RNA FAUSTINA+probe Ql (Unsp spec) Not detected Not Detected [facility] Work Phone: Comment on above: Rapid NAAT: The [...] management decisions. Fact sheet for Healthcare Providers: https://www.fda.gov/media/188130/download Fact sheet for Patients: https://www.ExamSoft World[employer].gov/media/008770/download Methodology: Isothermal Nucleic Acid Amplification Specimen Description .NASOPHARYNGEAL SWAB [facility] Phone: Zwipe Phone: EKG Rhythm StripOrdered By: Unknown Result on 01-02-2021 re-labeled to Sinus Rhythm ks [employer] Phone: [facility] [facility] Work Phone: PotassiumOrdered By: Janae Parker on 01-02-2021 Interpretation and review of laboratory results Abnormal [employer] Phone: Potassium [Moles/Vol] 2.8 mmol/L Critically low 3.7 - 5.3 mmol/L [facility] Phone: [facility] Work Phone: CBC auto differentialOrdered By: Olaf Pineda on 01-01-2021 Absolute Eos # 0.05 [employer] [facility] Work Phone: Absolute Immature Granulocyte <0.03 [facility] Work Phone: Absolute Lymph # 2.24 [facility] Work Phone: Absolute [place] # 0.64 [facility] Work Phone: Basophils (Bld) [#/Vol] 0.04 10*3/uL [facility] Work Phone: Basophils/100 WBC (Bld) 1 % 0 - 2 % [facility] [employer] Work Phone: Differential Type NOT REPORTED [facility] Phone: Eosinophils/100 WBC (Bld) 1 % 1 - 4 % [facility] Work Phone: Hematocrit (Bld) [Volume fraction] 32.7 % Low 36.3 - 47.1 % [facility] Work Phone: Hemoglobin.gastrointest inal spec 1 Ql (Stl) 11.6 g/dL Low 11.9 - 15.1 g/dL [employer] Phone: Immature granulocytes/100 WBC (Bld) 0 % 0 [employer] Phone: Interpretation and review of laboratory results Abnormal [employer] Phone: Lymphocytes/100 WBC (Bld) 30 % 24 - 43 % [employer] Phone: MCH (RBC) [Entitic mass] 30.1 pg 25.2 - 33.5 pg [employer] Phone: MCHC (RBC) [Mass/Vol] 35.5 g/dL High 28.4 - 34.8 g/dL [employer] Phone: MCV (RBC) [Entitic vol] 84.7 fL 82.6 - 102.9 fL [employer] Phone: Monocytes/100 WBC (Bld) 9 % 3 - 12 % M [employer] Phone: NRBC Automated 0.0 0.0 per 100 WBC [employer] Phone: Platelet distribution width (Bld) [Ratio] 11.4 % Low 11.8 - 14.4 % [employer] Phone: Platelet Estimate NOT REPORTED [employer] Phone: Platelet mean volume (Bld) [Entitic vol] 10.1 fL 8.1 - 13.5 fL [employer] Phone: Platelets (Bld) [#/Vol] 281 10*3/uL [employer] Phone: RBC (Bld) [#/Vol] 3.86 10*6/uL Low 3.95 - 5.11 m/uL [employer] Phone: RBC (Bld) [#/Vol] NOT REPORTED [employer] Phone: Segmented neutrophils/100 WBC (Bld) 59 % 36 - 65 % [employer] Work Phone: Segs Absolute 4.55 [employer] Work Phone: WBC (Bld) [#/Vol] 7.5 10*3/uL [facility] [facility] Work Phone: WBC (Bld) [#/Vol] NOT REPORTED [employer] Phone: [employer] Work Phone: Comprehensive Metabolic Pane lOrdered By: Olaf Pineda on 01-01-2021 Albumin [Mass/Vol] 4.7 g/dL 3.5 - 5.2 g/dL [employer] Phone: Albumin/Globulin [Mass ratio] 1.6 {ratio} [employer] Phone: ALP (Bld) [Catalytic activity/Vol] 99 U/L 35 - 104 U/L [employer] Phone: ALT [Catalytic activity/Vol] 21 U/L 5 - 33 U/L [employer] Phone: Anion gap [Moles/Vol] 14 mmol/L 9 - 17 mmol/L [employer] Phone: AST [Catalytic activity/Vol] 19 U/L <32 [employer] Phone: Bilirubin [Mass/Vol] 0.51 mg/dL 0.3 - 1 .2 mg/dL [employer] Phone: Calcium [Mass/Vol] 9.6 mg/dL 8.6 - 10. 4 mg/dL [employer] Phone: Chloride [Moles/Vol] 91 mmol/L Low 98 - 10 7 mmol/L [employer] Phone: CO2 [Moles/Vol] 27 mmol/L 20 - 31 mmol/L [employer] Phone: Creatinine [Mass/Vol] 1.17 mg/dL High 0.50 - 0.90 mg/dL [employer] Phone: Free PSA/Total PSA [Mass fraction] 7.6 g/dL 6.4 - 8.3 g/dL [employer] Phone: GFR >60 >60 mL/min [employer] (deja mi) Phone: GFR Non- 50 mL/min Low >60 [employer] Phone: Glucose [Mass/Vol] 120 mg/dL High 70 - 99 mg/dL [employer] Phone: Interpretation and review of laboratory results Abnormal [employer] Phone: Potassium [Moles/Vol] 2.2 mmol/L Critically low 3.7 - 5.3 mmol/L [employer] Phone: Sodium [Moles/Vol] 132 mmol/L Low 135 - 144 mmol/L [employer] Phone: Urea nitrogen (BldV) [Mass/Vol] 32 mg/dL High 6 - 20 mg/dL [employer] Phone: Urea nitrogen/Creatinine (Bld) [Mass ratio] 27 High [employer] Phone: Zwipe Phone: D-dimer, quantitativeOrdered By: Olaf Pineda on 01-01-2021 D-Dimer, Quant <0.27 [employer] Work Phone: Comment on above: When combined with [...] more prevalent in patients with distal DVT. [employer]ipe Phone: Glucose, Whole BloodOrdered By: Olaf Pineda on 01-01-2021 Glucose [Mass/Vol] 86 mg/dL 74 - 100 mg/dL [employer] Phone: Zwipe Phone: Laboratory - Chemistry and C hemistry - challengeOrdered By: Olaf Pineda on 01-01-2021 GFR/1.73 sq M.predicted MDRD (S/P/Bld) [Vol rate/Area] [employer]ipe Phone: Comment on above: Average GFR for 40-4 9 years old: 99 mL/min/1.73sq m Chronic Kidney Disease: <60 mL/min/1.73sq m Kidney failure: <15 mL/min/1.73sq m eGFR calculated using average adult body mass. Additional eGFR calculator available at: http://www.CloudX.Adocia/multiple_crcl_2012.htm Stage 1: Some kidney damage normal GFR Stage 2: Mild kidney damage GFR 60-89 Stage 3: Moderate kidney damage GFR 30-59 Stage 4: Severe kidney damage GFR 15-29 Stage 5: Severe kidney damage GFR <15 ESRD - chronic treatment by dialysis or transplant MagnesiumOrdered By: Olaf Pineda on 01-01-2021 Magnesium [Mass/Vol] 2.1 mg/dL 1.6 - 2 .6 mg/dL [employer]ipe Phone: Zwipe Phone: No Panel InformationOrdered By: Olaf Pineda on 01-01-2021 Chest: 1. No evidenc e for acute pulmonary embolism. 2. No evidence for pneumonia. Abdomen pelvis: 1. No acute infective or inflammatory process. 2. No bowel obstruction. 3. Postsurgical changes in lumbar spine with L4-5 and L5-S1 fusion. [facility] [facility] Work Phone: EXAMINATION: CT OF T HE ABDOMEN [...] superficial soft tissues show no significant abnormalities. Zwipe Phone: Ben[place], pn Incoming Radiant Results From [employer]/[facility] - 01/01/2021 2:03 PM EDT EXAMINATION: CT [...] lumbar spine with L4-5 and L5-S1 fusion. [facility]wipe Phone: Zwipe Phone: POCT glucoseOrdered By: Nicanor Schwab on 01-01-2021 Glucose [Mass/Vol] 86 mg/dL [employer] Phone: Interpretation and review of laboratory results Normal Zwipe Phone: QC OK? y Zwipe Phone: Zwipe Phone: TroponinOrdered By: Olaf Pineda on 01-01-2021 Troponin Interp NOT REPORTED [employer] Work Phone: Troponin T NOT REPORTED <0.03 ng/mL [employer]wipe Phone: Troponin, High Sensitivity <6 0 - 14 ng/L [employer] Phone: Comment on above: High Sensitivity Troponin values cannot be compared with other Troponin methodologies. Patients with high levels of Biotin oral intake (i.e >5mg/day) may have falsely decreased Troponin levels. Samples collected within 8 hours of biotin intake may require additional information for diagnosis. Zwipe Phone: VL DUP LOWER EXTREMITY VENOU S BILATERALOrdered By: Olaf Pineda on 01-01-2021 Benoit, pn Incoming Cardio Results From [facility]/[employer] - 01/01/2021 5:27 PM EDT [facility] Vascular Lower Extremities DVT Study Procedure Patient Name ADRIÁN Date of Study 01/01/2021 MIKE N Date of 1975 Gender Female Age 45 year(s) Race Room Number 12 Corporate ID [id number] # Patient Acct [id number] # MR # [id number] [employer] Crystal Wilhelm RVT Interpreting Physician Aman Haas [...] ! + + (more content not included)... Zwipe Phone: Zwipe Phone: Basic Metabolic Panel w/ Ref golden to MGOrdered By: Santhosh Schwab on 11-22-2020 Anion gap [Moles/Vol] 8 mmol/L Low 9 - 17 mmol/L [employer] Phone: Calcium [Mass/Vol] 9.3 mg/dL 8.6 - 10. 4 mg/dL [employer] Phone: Chloride [Moles/Vol] 102 mmol/L 98 - 10 7 mmol/L [employer] Phone: CO2 [Moles/Vol] 28 mmol/L 20 - 31 mmol/L [employer] Phone: Creatinine [Mass/Vol] 0.64 mg/dL 0.50 - 0.90 mg/dL [employer] Phone: GFR >60 >60 mL/min [employer] (deja mi) Phone: GFR Non- >60 >60 mL/min Z[employer]ipe Phone: Glucose [Mass/Vol] 96 mg/dL 70 - 99 mg/dL [employer] Phone: Interpretation and review of laboratory results Abnormal [employer] Phone: Potassium [Moles/Vol] 3.2 mmol/L Low 3.7 - 5.3 mmol/L [employer] Phone: Sodium [Moles/Vol] 138 mmol/L 135 - 144 mmol/L [employer] Phone: Urea nitrogen (BldV) [Mass/Vol] 14 mg/dL 6 - 20 mg/dL [employer] Phone: Urea nitrogen/Creatinine (Bld) [Mass ratio] 22 High [employer] Phone: CBC Auto DifferentialOrdered By: Santhosh Schwab on 11-22-2020 Absolute Eos # 0.04 [employer] Work Phone: Absolute Immature Granulocyte 0.16 Zw[employer] Phone: Absolute Lymph # 3.02 [facility] Work Phone: Absolute [place] # 1.38 High [facility] Work Phone: Basophils (Bld) [#/Vol] 10*3/uL M [employer] Work Phone: Basophils/100 WBC (Bld) 0 % 0 - 2 % M [employer] Work Phone: Differential Type NOT REPORTED [facility] [facility] Work Phone: Eosinophils/100 WBC (Bld) 0 % Low 1 - 4 % [employer] Work Phone: Hematocrit (Bld) [Volume fraction] 38.5 % 36.3 - 47.1 % [employer] Work Phone: Hemoglobin.gastrointest inal spec 1 Ql (Stl) 13.2 g/dL 11.9 - 15.1 g/dL [employer] [facility] Work Phone: Immature granulocytes/100 WBC (Bld) 1 % High 0 [employer] Work Phone: Interpretation and review of laboratory results Abnormal Zwipe Phone: Lymphocytes/100 WBC (Bld) 15 % Low 24 - 43 % [employer] Work Phone: MCH (RBC) [Entitic mass] 30.7 pg 25.2 - 33.5 pg [employer] Work Phone: MCHC (RBC) [Mass/Vol] 34.3 g/dL 28.4 - 34.8 g/dL [employer] Phone: MCV (RBC) [Entitic vol] 89.5 fL 82.6 - 102.9 fL [employer] [facility] Work Phone: Monocytes/100 WBC (Bld) 7 % 3 - 12 % M [employer] Work Phone: NRBC Automated 0.0 0.0 per 100 WBC [employer]ipe Phone: Platelet distribution width (Bld) [Ratio] 12.2 % 11.8 - 14.4 % [employer] Phone: Platelet Estimate NOT REPORTED [employer] Phone: Platelet mean volume (Bld) [Entitic vol] 9.8 fL 8.1 - 13.5 fL [employer] Phone: Platelets (Bld) [#/Vol] 352 10*3/uL [employer] Phone: RBC (Bld) [#/Vol] 4.30 10*6/uL 3.95 - 5.11 m/uL [employer] Phone: RBC (Bld) [#/Vol] NOT REPORTED [employer] Phone: Segmented neutrophils/100 WBC (Bld) 77 % High 36 - 65 % [facility] [facility] Work Phone: Segs Absolute 15.76 High [employer] Work Phone: WBC (Bld) [#/Vol] 20.4 10*3/uL High [facility] [facility] Work Phone: WBC (Bld) [#/Vol] NOT REPORTED [facility]wipe Phone: CT SOFT TISSUE NECK W CONTRA STOrdered By: Santhosh Schwab on 11-22-2020 No acute abnormality of the soft tissue structures of the neck. [employer]ipe Phone: EXAMINATION: CT OF T HE NECK [...] aggressive appearing lytic or blastic bony lesion. [employer] Work Phone: [place], pn Incoming Radiant Results From [employer] - 11/22/2020 1:37 PM EDT EXAMINATION: CT [...] the soft tissue structures of the neck. Zwipe Phone: Laboratory - Chemistry and C hemistry - challengeOrdered By: Santhosh Schwab on 11-22-2020 GFR/1.73 sq M.predicted MDRD (S/P/Bld) [Vol rate/Area] Zwipe Phone: Comment on above: Average GFR for 40-4 9 years old: 99 mL/min/1.73sq m Chronic Kidney Disease: <60 mL/min/1.73sq m Kidney failure: <15 mL/min/1.73sq m eGFR calculated using average adult body mass. Additional eGFR calculator available at: http://www.CloudX.Adocia/multiple_crcl_2012.htm Stage 1: Some kidney damage normal GFR Stage 2: Mild kidney damage GFR 60-89 Stage 3: Moderate kidney damage GFR 30-59 Stage 4: Severe kidney damage GFR 15-29 Stage 5: Severe kidney damage GFR <15 ESRD - chronic treatment by dialysis or transplant MagnesiumOrdered By: Santhosh Schwab on 11-22-2020 Magnesium [Mass/Vol] 2.2 mg/dL 1.6 - 2 .6 mg/dL [employer] Phone: COVID-19on 09-20-2020 Interpretation and review of laboratory results Abnormal [employer] Phone: SARS-CoV-2 Z[employer]ipe Phone: SARS-CoV-2 DETECTED Abnormal Not Detected [employer]ipe Phone: Comment on above: The specimen is POSITIVE for SARS-Cov-2, the novel coronavirus associated with COVID-19. Pedro SARS-CoV-2 for use on the Pedro [employer] is a real-time RT-PCR test intended [...] this assay. Fact sheet for Healthcare Providers: https://www.fda.gov/media/305368/download Fact sheet for Patients: https://www.fda.gov/media/136429/download METHODOLOGY: RT-PCR Results reported to the appropriate Health Department Source .THROAT SWAB Zwipe Phone: Amylaseon 09-19-2020 Amylase [Catalytic activity/Vol] 37 U/L 28 - 100 U/L [employer] Phone: CBC Auto Differentialon Basophils (Bld) [#/Vol] 0.09 10*3/uL [employer] Phone: Basophils/100 WBC (Bld) 1 % 0 - 2 % M [employer] Phone: Differential Type NOT REPORTED Zwipe Phone: Eosinophils (Bld) [#/Vol] 0.09 10*3/uL [employer] Phone: Eosinophils/100 WBC (Bld) 1 % 1 - 4 % [employer] Phone: Erythrocyte distribution width (RBC) [Ratio] 11.9 % 11.8 - 14.4 % [employer] Phone: Hematocrit (Bld) [Volume fraction] 42.3 % 36.3 - 47.1 % [employer] Phone: Hemoglobin (Bld) [Mass/Vol] 13.8 g/dL 11.9 - 15.1 g/dL [employer] Phone: Immature granulocytes (Bld) [#/Vol] 0.03 10*3/uL [facility] Phone: Immature granulocytes (Bld) [#/Vol] 0 % 0 Zwipe Phone: Interpretation and review of laboratory results Abnormal [employer] Phone: Lymphocytes (Bld) [#/Vol] 2.38 10*3/uL [facility] Phone: Lymphocytes/100 WBC (Bld) 26 % 24 - 43 % [facility] Phone: MCH (RBC) [Entitic mass] 29.7 pg 25.2 - 33.5 pg Zwipe Phone: MCHC (RBC) [Mass/Vol] 32.6 g/dL 28.4 - 34.8 g/dL [employer] Phone: MCV (RBC) [Entitic vol] 91.2 fL 82.6 - 102.9 fL [facility] Phone: Monocytes (Bld) [#/Vol] 0.50 10*3/uL [facility] Phone: Monocytes/100 WBC (Bld) 6 % 3 - 12 % M [facility] Phone: Platelet mean volume (Bld) [Entitic vol] 10.1 fL 8.1 - 13.5 fL [facility] Phone: Platelets (Bld) [#/Vol] NOT REPORTED [facility] Phone: Platelets (Bld) [#/Vol] 287 10*3/uL [facility] Phone: RBC (Bld) [#/Vol] 4.64 10*6/uL 3.95 - 5.11 m/uL [employer] Work Phone: RBC morphology finding Nom (Bld) NOT REPORTED [employer] Work Phone: Segmented neutrophils/100 WBC (Bld) 66 % High 36 - 65 % [employer]ipe Phone: Segs Absolute 5.96 [employer] Work Phone: WBC (Bld) [#/Vol] 9.1 10*3/uL [employer] Work Phone: WBC (Bld) [#/Vol] 0.0 10*3/uL 0.0 per 100 WBC [employer]ipe Phone: WBC Morphology NOT REPORTED [employer] Work Phone: Comprehensive Metabolic Pane misti 09-19-2020 Albumin [Mass/Vol] 4.4 g/dL 3.5 - 5.2 g/dL [employer] Phone: Albumin/Globulin [Mass ratio] 1.6 {ratio} [employer] Phone: ALP [Catalytic activity/Vol] 111 U/L High 35 - 104 U/L [employer] Phone: ALT [Catalytic activity/Vol] 43 U/L High 5 - 33 U/L [employer] Phone: Anion gap [Moles/Vol] 8 mmol/L Low 9 - 17 mmol/L [employer] Phone: AST [Catalytic activity/Vol] 27 U/L <32 [employer] Phone: Bilirubin Ql (U) 0.28 mg/dL Low 0.3 - 1.2 mg/dL [employer] Phone: Bun/Cre Ratio 9 [employer] Work Phone: Calcium [Mass/Vol] 9.3 mg/dL 8.6 - 10. 4 mg/dL [employer] Phone: Chloride [Moles/Vol] 103 mmol/L 98 - 10 7 mmol/L [employer] Phone: CO2 [Moles/Vol] 27 mmol/L 20 - 31 mmol/L [employer] Phone: Creatinine [Mass/Vol] 0.67 mg/dL 0.5 - 0.9 mg/dL [employer] Phone: GFR >60 >60 mL/min [employer] (deja mi) Phone: GFR Non- >60 >60 mL/min [employer] Phone: Glucose [Mass/Vol] 108 mg/dL High 70 - 99 mg/dL [employer] Phone: Interpretation and review of laboratory results Abnormal [employer] Phone: Potassium [Moles/Vol] 3.6 mmol/L Low 3.7 - 5.3 mmol/L [employer] Phone: Protein [Mass/Vol] 7.2 g/dL 6.4 - 8.3 g/dL [employer] Phone: Sodium [Moles/Vol] 138 mmol/L 135 - 144 mmol/L [employer] Phone: Urea nitrogen [Mass/Vol] 6 mg/dL 6 - 20 mg/dL [employer] Phone: Lipaseon 09-19-2020 Lipase [Catalytic activity/Vol] 23 U/L 13 - 60 U/L [employer] Phone: Metabolic Panelon 09-19-2020 GFR/1.73 sq M predicted among non-blacks MDRD (S/P/Bld) [Vol rate/Area] [employer] Phone: Comment on above: Stage 1: Some [...] body mass. Additional eGFR calculator available at: http://www.CloudX.Adocia/multiple_crcl_2012.htm Sedimentation Rateon 021 Sed Rate 11 mm 0 - 20 mm [employer] Work Phone: Urinalysis With Microscopico n 09-19-2020 Amorphous, UA NOT REPORTED None [facility] Work Phone: Bacteria, UA TRACE Abnormal None [facility] Work Phone: Bilirubin Urine Negative NEGATIVE [facility] HospitalSh[facility] Work Phone: Casts UA NOT REPORTED /LPF [facility] Work Phone: Color, UA YELLOW YELLOW [employer] Work Phone: Crystals, UA NOT REPORTED None /HPF [employer] Work Phone: Epithelial Cells UA 0 TO 2 [facility] Work Phone: Glucose, Ur Negative NEGATIVE [facility] Work Phone: Interpretation and review of laboratory results Abnormal [facility] Work Phone: Ketones Ql (U) Negative NEGATIVE [facility] HospitalWork[facility] Work Phone: Leukocyte esterase Test strip Ql (U) Negative NEGATIVE [facility] Work Phone: Mucus, UA NOT REPORTED None [facility] Work Phone: Nitrite, Urine Negative NEGATIVE [facility] HospitalWork[facility] Work Phone: Other Observations UA NOT REPORTED NOT REQ. M [facility] Work Phone: pH, UA 6.0 [facility] Work Phone: Protein (U) [Mass/Vol] Negative NEGATIVE [facility] Work Phone: RBC (U) [#/Vol] None [facility] Work Phone: Renal Epithelial, UA NOT REPORTED 0 /HPF [facility] Work Phone: Specific [place], UA 1.010 [facility] Work Phone: Trichomonas, UA NOT REPORTED None [facility] Work Phone: Turbidity UA CLEAR CLEAR [facility] [employer] Work Phone: Urinalysis Comments NOT REPORTED [facility] [employer] Work Phone: Urine Hgb Negative NEGATIVE [facility] [employer] Work Phone: Urobilinogen, Urine Normal Normal [facility] [employer] Work Phone: WBC, UA 0 TO 2 [facility] [employer] Work Phone: Yeast, UA NOT REPORTED None [facility] [employer] Work Phone: - [facility] [employer] Work Phone: Basic Metabolic Panel w/ Ref golden to MGon 08-29-2020 Anion gap [Moles/Vol] 7 mmol/L Low 9 - 17 mmol/L [facility] Work Phone: Bun/Cre Ratio [address] [facility] Work Phone: Calcium [Mass/Vol] 8.0 mg/dL Low 8.6 - 10. 4 mg/dL [facility] Work Phone: Chloride [Moles/Vol] 109 mmol/L High 98 - 10 7 mmol/L [facility] Work Phone: CO2 [Moles/Vol] 23 mmol/L 20 - 31 mmol/L [facility] Work Phone: Creatinine [Mass/Vol] 0.49 mg/dL Low 0.5 - 0.9 mg/dL [employer] Phone: GFR >60 >60 mL/min [employer] ([facility] Phone: GFR Non- >60 >60 mL/min [employer] Phone: Glucose [Mass/Vol] 114 mg/dL High 70 - 99 mg/dL [employer]ipe Phone: Interpretation and review of laboratory results Abnormal [employer] Phone: Potassium [Moles/Vol] 3.8 mmol/L 3.7 - 5.3 mmol/L [employer] Phone: Sodium [Moles/Vol] 139 mmol/L 135 - 144 mmol/L [employer] Phone: Urea nitrogen [Mass/Vol] 4 mg/dL Low 6 - 20 mg/dL [employer] Phone: CBC auto differentialon 08-19 Basophils (Bld) [#/Vol] 0.03 10*3/uL [employer] Phone: Basophils/100 WBC (Bld) 0 % 0 - 2 % [facility] Phone: Differential Type NOT REPORTED [employer] Phone: Eosinophils (Bld) [#/Vol] 0.08 10*3/uL [employer] Phone: Eosinophils/100 WBC (Bld) 1 % 1 - 4 % [employer] Phone: Erythrocyte distribution width (RBC) [Ratio] 12.0 % 11.8 - 14.4 % [employer] Phone: Hematocrit (Bld) [Volume fraction] 36.4 % 36.3 - 47.1 % [employer] Phone: Hemoglobin (Bld) [Mass/Vol] 12.1 g/dL 11.9 - 15.1 g/dL [employer] Phone: Immature granulocytes (Bld) [#/Vol] 1 % High 0 [employer] Phone: Immature granulocytes (Bld) [#/Vol] 0.04 10*3/uL [employer] Phone: Interpretation and review of laboratory results Abnormal [employer] Phone: Lymphocytes (Bld) [#/Vol] 2.26 10*3/uL [employer] Phone: Lymphocytes/100 WBC (Bld) 31 % 24 - 43 % [employer] Phone: MCH (RBC) [Entitic mass] 30.4 pg 25.2 - 33.5 pg [employer] Phone: MCHC (RBC) [Mass/Vol] 33.2 g/dL 28.4 - 34.8 g/dL [employer] Phone: MCV (RBC) [Entitic vol] 91.5 fL 82.6 - 102.9 fL [employer] Phone: Monocytes (Bld) [#/Vol] 0.55 10*3/uL [employer] Phone: Monocytes/100 WBC (Bld) 8 % 3 - 12 % M [employer] Phone: Platelet mean volume (Bld) [Entitic vol] 10.2 fL 8.1 - 13.5 fL [employer] Phone: Platelets (Bld) [#/Vol] NOT REPORTED [employer] Phone: Platelets (Bld) [#/Vol] 255 10*3/uL [employer] Phone: RBC (Bld) [#/Vol] 3.98 10*6/uL 3.95 - 5.11 m/uL [employer] Phone: RBC morphology finding Nom (Bld) NOT REPORTED [employer] Phone: Segmented neutrophils/100 WBC (Bld) 59 % 36 - 65 % [employer] Phone: Segs Absolute 4.30 [employer] Work Phone: WBC (Bld) [#/Vol] 7.3 10*3/uL [employer] Phone: WBC (Bld) [#/Vol] 0.0 10*3/uL 0.0 per 100 WBC [employer] Phone: WBC Morphology NOT REPORTED [employer] Phone: Metabolic Panelon 08-29-2020 GFR/1.73 sq M predicted among non-blacks MDRD (S/P/Bld) [Vol rate/Area] [employer] Phone: Comment on above: Average GFR for 40-4 9 years old: 99 mL/min/1.73sq m Chronic Kidney Disease: <60 mL/min/1.73sq m Kidney failure: <15 mL/min/1.73sq m eGFR calculated using average adult body mass. Additional eGFR calculator available at: http://www.Hellotravel/multiple_crcl_2012.htm Stage 1: Some kidney damage normal GFR Stage 2: Mild kidney damage GFR 60-89 Stage 3: Moderate kidney damage GFR 30-59 Stage 4: Severe kidney damage GFR 15-29 Stage 5: Severe kidney damage GFR <15 ESRD - chronic treatment by dialysis or transplant Basic Metabolic Panel w/ Ref golden to MGon 08-28-2020 Anion gap [Moles/Vol] 9 mmol/L 9 - 17 mmol/L [employer] Phone: Bun/Cre Ratio 9 [employer] Phone: Calcium [Mass/Vol] 8.0 mg/dL Low 8.6 - 10. 4 mg/dL [employer] Phone: Chloride [Moles/Vol] 100 mmol/L 98 - 10 7 mmol/L [employer] Phone: CO2 [Moles/Vol] 23 mmol/L 20 - 31 mmol/L [employer] Phone: Creatinine [Mass/Vol] 0.56 mg/dL 0.5 - 0.9 mg/dL [employer] Phone: GFR >60 >60 mL/min [employer] (deja mi) Phone: GFR Non- >60 >60 mL/min [employer] Phone: Glucose [Mass/Vol] 100 mg/dL High 70 - 99 mg/dL [employer] Phone: Interpretation and review of laboratory results Abnormal [employer] Phone: Potassium [Moles/Vol] 3.4 mmol/L Low 3.7 - 5.3 mmol/L [employer] Phone: Sodium [Moles/Vol] 132 mmol/L Low 135 - 144 mmol/L [employer] Phone: Urea nitrogen [Mass/Vol] 5 mg/dL Low 6 - 20 mg/dL [employer] Phone: C.trachomatis N.gonorrhoeae DNAon 08-28-2020 C. trachomatis DNA FAUSTINA+probe Ql (Genital specimen) Negative NEGATIVE [employer] Phone: Comment on above: CHLAMYDIA TRACHOMATI S [...] acid target. N. gonorrhoeae DNA Negative NEGATIVE [employer] Phone: Comment on above: NEISSERIA GONORRHOEA E [...] alternative nucleic acid target. Specimen Description .CERVIX [employer] (deja mi) Phone: CBC auto differentialon 08-19-2020 Basophils (Bld) [#/Vol] 0.04 10*3/uL [employer] Phone: Basophils/100 WBC (Bld) 1 % 0 - 2 % M [facility] Phone: Differential Type NOT REPORTED [employer] Phone: Eosinophils (Bld) [#/Vol] 0.08 10*3/uL [employer] Phone: Eosinophils/100 WBC (Bld) 1 % 1 - 4 % [employer] Phone: Erythrocyte distribution width (RBC) [Ratio] 11.9 % 11.8 - 14.4 % [employer] Phone: Hematocrit (Bld) [Volume fraction] 37.0 % 36.3 - 47.1 % [employer] Phone: Hemoglobin (Bld) [Mass/Vol] 12.3 g/dL 11.9 - 15.1 g/dL [employer] Phone: Immature granulocytes (Bld) [#/Vol] 0 % 0 [employer] Phone: Immature granulocytes (Bld) [#/Vol] 10*3/uL [employer] Phone: Lymphocytes (Bld) [#/Vol] 1.87 10*3/uL [employer] Phone: Lymphocytes/100 WBC (Bld) 31 % 24 - 43 % [employer] Phone: MCH (RBC) [Entitic mass] 30.1 pg 25.2 - 33.5 pg [employer] Phone: MCHC (RBC) [Mass/Vol] 33.2 g/dL 28.4 - 34.8 g/dL [employer] Phone: MCV (RBC) [Entitic vol] 90.5 fL 82.6 - 102.9 fL [facility] Work Phone: Monocytes (Bld) [#/Vol] 0.40 10*3/uL [employer] Work Phone: Monocytes/100 WBC (Bld) 7 % 3 - 12 % M [facility] Work Phone: Platelet mean volume (Bld) [Entitic vol] 9.8 fL 8.1 - 13.5 fL [facility] Work Phone: Platelets (Bld) [#/Vol] 213 10*3/uL [facility] Work Phone: Platelets (Bld) [#/Vol] NOT REPORTED [facility] Work Phone: RBC (Bld) [#/Vol] 4.09 10*6/uL 3.95 - 5.11 m/uL [employer] Work Phone: RBC morphology finding Nom (Bld) NOT REPORTED [facility] Work Phone: Segmented neutrophils/100 WBC (Bld) 60 % 36 - 65 % [facility] Work Phone: Segs Absolute 3.71 [employer] [facility] Work Phone: WBC (Bld) [#/Vol] 6.1 10*3/uL [facility] Work Phone: WBC (Bld) [#/Vol] 0.0 10*3/uL 0.0 per 100 WBC [facility] Work Phone: WBC Morphology NOT REPORTED [employer] [facility] Work Phone: CT ABDOMEN PELVIS W IV CONTR AST Additional Contrast? Oralon 08-28-2020 Benoit, Mhpn Incoming Radiant Results From [employer]/Pacs - 08/28/2020 10:01 AM EST EXAMINATION: CT [...] fluid. 3. Findings compatible with hepatic steatosis. [employer] Phone: EXAMINATION: CT OF T HE ABDOMEN [...] been performed at L3-4, L4-5 and L5-S1. [employer] Phone: 1. No acute inflamma tory process identified in the abdomen or pelvis. 2. Trace pleural effusions and trace pelvic free fluid. 3. Findings compatible with hepatic steatosis. [employer] Phone: Magnesiumon 08-28-2020 Magnesium [Mass/Vol] 2.1 mg/dL 1.6 - 2 .6 mg/dL [employer] Phone: Metabolic Panelon 08-28-2020 GFR/1.73 sq M predicted among non-blacks MDRD (S/P/Bld) [Vol rate/Area] [employer] Phone: Comment on above: Stage 1: Some [...] body mass. Additional eGFR calculator available at: http://www.Hellotravel/multiple_crcl_2012.htm Basic Metabolic Panelon -0 Anion gap [Moles/Vol] 9 mmol/L 9 - 17 mmol/L [employer] Phone: Bun/Cre Ratio 11 [employer] Work Phone: Calcium [Mass/Vol] 8.8 mg/dL 8.6 - 10. 4 mg/dL [employer] Phone: Chloride [Moles/Vol] 102 mmol/L 98 - 10 7 mmol/L [employer] Phone: CO2 [Moles/Vol] 23 mmol/L 20 - 31 mmol/L [employer] Phone: Creatinine [Mass/Vol] 0.56 mg/dL 0.5 - 0.9 mg/dL [employer] Phone: GFR >60 >60 mL/min [employer] (deja mi) Phone: GFR Non- >60 >60 mL/min [facility] Phone: Glucose [Mass/Vol] 109 mg/dL High 70 - 99 mg/dL [employer] Phone: Potassium [Moles/Vol] 3.8 mmol/L 3.7 - 5.3 mmol/L [employer] Phone: Sodium [Moles/Vol] 134 mmol/L Low 135 - 144 mmol/L [employer] Phone: Urea nitrogen [Mass/Vol] 6 mg/dL 6 - 20 mg/dL [employer] Phone: CBCon 08-27-2020 Erythrocyte distribution width (RBC) [Ratio] 11.9 % 11.8 - 14.4 % [employer] Phone: Hematocrit (Bld) [Volume fraction] 38.7 % 36.3 - 47.1 % [employer] Phone: Hemoglobin (Bld) [Mass/Vol] 13.0 g/dL 11.9 - 15.1 g/dL [employer] Phone: MCH (RBC) [Entitic mass] 30.3 pg 25.2 - 33.5 pg [employer] Phone: MCHC (RBC) [Mass/Vol] 33.6 g/dL 28.4 - 34.8 g/dL [employer] Phone: MCV (RBC) [Entitic vol] 90.2 fL 82.6 - 102.9 fL [employer] Phone: Platelet mean volume (Bld) [Entitic vol] 10.1 fL 8.1 - 13.5 fL [employer] Phone: Platelets (Bld) [#/Vol] 250 10*3/uL [employer] Phone: RBC (Bld) [#/Vol] 4.29 10*6/uL 3.95 - 5.11 m/uL [employer] Phone: WBC (Bld) [#/Vol] 0.0 10*3/uL 0.0 per 100 WBC [employer] Phone: WBC (Bld) [#/Vol] 7.3 10*3/uL [employer] Phone: CBC auto differentialon 02-0 Basophils (Bld) [#/Vol] 0.04 10*3/uL [employer] Phone: Basophils/100 WBC (Bld) 1 % 0 - 2 % M [facility] Phone: Differential Type NOT REPORTED [employer] Phone: Eosinophils (Bld) [#/Vol] 0.07 10*3/uL [employer] Phone: Eosinophils/100 WBC (Bld) 1 % 1 - 4 % [employer] Phone: Erythrocyte distribution width (RBC) [Ratio] 11.8 % 11.8 - 14.4 % [employer] Phone: Hematocrit (Bld) [Volume fraction] 36.1 % Low 36.3 - 47.1 % [employer] Phone: Hemoglobin (Bld) [Mass/Vol] 12.2 g/dL 11.9 - 15.1 g/dL [employer] Phone: Immature granulocytes (Bld) [#/Vol] 0 % 0 [employer] Phone: Immature granulocytes (Bld) [#/Vol] 10*3/uL [employer] Phone: Interpretation and review of laboratory results Abnormal [employer] Phone: Lymphocytes (Bld) [#/Vol] 2.26 10*3/uL [employer] Phone: Lymphocytes/100 WBC (Bld) 26 % 24 - 43 % [employer] Phone: MCH (RBC) [Entitic mass] 30.4 pg 25.2 - 33.5 pg [employer] Phone: MCHC (RBC) [Mass/Vol] 33.8 g/dL 28.4 - 34.8 g/dL [employer] Phone: MCV (RBC) [Entitic vol] 90.0 fL 82.6 - 102.9 fL [employer] Phone: Monocytes (Bld) [#/Vol] 0.43 10*3/uL [employer] Phone: Monocytes/100 WBC (Bld) 5 % 3 - 12 % M [facility] Phone: Platelet mean volume (Bld) [Entitic vol] 9.9 fL 8.1 - 13.5 fL [employer] Phone: Platelets (Bld) [#/Vol] 225 10*3/uL [employer] Phone: Platelets (Bld) [#/Vol] NOT REPORTED [employer] Phone: RBC (Bld) [#/Vol] 4.01 10*6/uL 3.95 - 5.11 m/uL [employer] Work Phone: RBC morphology finding Nom (Bld) NOT REPORTED [employer] Work Phone: Segmented neutrophils/100 WBC (Bld) 67 % High 36 - 65 % [employer] Work Phone: Segs Absolute 5.82 [employer] Work Phone: WBC (Bld) [#/Vol] 8.6 10*3/uL [employer] Work Phone: WBC (Bld) [#/Vol] 0.0 10*3/uL 0.0 per 100 WBC [employer] Work Phone: WBC Morphology NOT REPORTED [employer] Work Phone: CT ABDOMEN PELVIS W [...] unremarkable. There is no acute osseous abnormality. [employer] Phone: No acute abdominal o r pelvic abnormality. Hepatic steatosis. Cholecystectomy and hysterectomy. [employer] Phone: Benoit, Mhpn Incoming Radiant Results From [employer] - 08/27/2020 9:01 AM EST EXAMINATION: CT [...] pelvic abnormality. Hepatic steatosis. Cholecystectomy and hysterectomy. [employer] Phone: Hepatic function panelon Albumin [Mass/Vol] 4.1 g/dL 3.5 - 5.2 g/dL [employer] Phone: Albumin/Globulin [Mass ratio] 1.6 {ratio} [employer] Phone: ALP [Catalytic activity/Vol] 95 U/L 35 - 104 U/L [employer] Phone: ALT [Catalytic activity/Vol] 35 U/L High 5 - 33 U/L [employer] Phone: AST [Catalytic activity/Vol] 27 U/L <32 [employer] Phone: Bilirubin Ql (U) 0.32 mg/dL 0.3 - 1.2 mg/dL [employer] Phone: Bilirubin, Indirect CANNOT BE CALCULATED 0 - 1 mg/dL [employer] Phone: Bilirubin.direct [Mass/Vol] mg/dL <0.31 mg/dL [employer] Phone: Globulin (S) [Mass/Vol] NOT REPORTED 1.5 - 3.8 g/dL [employer] Phone: Protein [Mass/Vol] 6.7 g/dL 6.4 - 8.3 g/dL [employer] Phone: Lactic acid, plasmaon 2020 Lactate [Moles/Vol] 1.2 mmol/L 0.5 - 2. 2 mmol/L [employer] Phone: Lactic Acid, Whole Blood NOT REPORTED 0.7 - 2.1 mmol/L [employer] Phone: Lipaseon 08-27-2020 Lipase [Catalytic activity/Vol] 24 U/L 13 - 60 U/L [employer] Phone: Metabolic Panelon 02-09-2021 GFR/1.73 sq M predicted among non-blacks MDRD (S/P/Bld) [Vol rate/Area] [facility] [employer] Work Phone: Comment on above: Stage 1: Some [...] body mass. Additional eGFR calculator available at: http://www.Hellotravel/multiple_crcl_2012.htm Microscopic Urinalysison Amorphous, UA NOT REPORTED None [employer] [facility] Work Phone: Bacteria, UA NOT REPORTED None [facility] Work Phone: Casts UA NOT REPORTED /LPF [facility] [employer] Work Phone: Crystals, UA NOT REPORTED None /HPF [facility] Work Phone: Epithelial Cells UA 10 TO 20 [facility] [employer] Work Phone: Mucus, UA NOT REPORTED None [facility] [employer] Work Phone: Other Observations UA NOT REPORTED NOT REQ. [facility] [employer] Work Phone: RBC (U) [#/Vol] None [facility] Work Phone: Renal Epithelial, UA NOT REPORTED 0 /HPF [facility] [employer] Work Phone: Trichomonas, UA NOT REPORTED None [facility] [employer] Work Phone: WBC, UA 0 TO 2 [facility] [employer] Work Phone: Yeast, UA NOT REPORTED None [facility] [employer] Work Phone: - [facility] [employer] Work Phone: Otheron 08-27-2020 Interpretation and review of laboratory results Abnormal [facility] Work Phone: Urinalysis Reflex to Culture on 08-27-2020 Bilirubin Urine Negative NEGATIVE [facility] Work Phone: Color, UA YELLOW YELLOW [facility] Work Phone: Glucose, Ur Negative NEGATIVE [facility] Work Phone: Interpretation and review of laboratory results Abnormal [facility] Work Phone: Ketones Ql (U) Negative NEGATIVE [facility] Work Phone: Leukocyte esterase Test strip Ql (U) Negative NEGATIVE [facility] Work Phone: Nitrite, Urine Negative NEGATIVE [facility] Work Phone: pH, UA 5.5 [facility] Work Phone: Protein (U) [Mass/Vol] Negative NEGATIVE [facility] [employer] Work Phone: Specific [place], UA 1.025 High [facility] [employer] Work Phone: Turbidity UA CLEAR CLEAR [facility] [employer] Work Phone: Urinalysis Comments NOT REPORTED [facility] [employer] Work Phone: Urine Hgb Negative NEGATIVE [facility] [employer] Work Phone: Urobilinogen, Urine Normal Normal [facility] [employer] Work Phone: Wet Prep, Genitalon 08-27-19 21 Direct Exam NO TRICHOMONAS SEEN [facility] [employer] Work Phone: Direct Exam NO CLUE CELLS SEEN [facility] [employer] Work Phone: Special Requests NOT REPORTED [facility] [employer] Work Phone: Specimen Description .VAGINA [facility] [employer] Work Phone: Lipid Panelon 07-05-2020 Cholesterol [Mass/Vol] 151 mg/dL <200 [facility] [place], [place] Comment on above: Cholesterol Guidelines: <200 Desirable 200-240 Borderline >240 Undesirable Cholesterol in HDL [Mass/Vol] 29 mg/dL Low >40 [place], [place] Comment on above: HDL Guidelines: <40 Undesirable 40-59 Borderline >59 Desirable Cholesterol in LDL [Mass/Vol] 47 mg/dL 0 - 130 mg/dL [place] Comment on above: LDL Guidelines: <100 Desirable 100-129 Near to/above Desirable 130-159 Borderline >159 Undesirable Direct (measured) LDL and calculated LDL are not interchangeable tests. Cholesterol in VLDL [Mass/Vol] NOT REPORTED High 1 - 30 mg/dL [place] Cholesterol.total/Audelia sterol in HDL [Mass ratio] 5.2 {ratio} High <5 [place] Interpretation and review of laboratory results Abnormal [place] Triglyceride [Mass/Vol] 377 mg/dL High <150 [place], [place] Comment on above: Triglyceride Guidelines: <150 Desirable 150-199 Borderline 200-499 High >499 Very high Based on AHA Guidelines for fasting triglyceride, April 2012. Basic Metabolic Panelon 12- Anion gap [Moles/Vol] 8 mmol/L Low 9 - 17 mmol/L [place] Bun/Cre Ratio 16 [place] Calcium [Mass/Vol] 9.1 mg/dL 8.6 - 10. 4 mg/dL [place] Chloride [Moles/Vol] 105 mmol/L 98 - 10 7 mmol/L [place] CO2 [Moles/Vol] 24 mmol/L 20 - 31 mmol/L [place] Creatinine [Mass/Vol] 0.64 mg/dL 0.5 - 0.9 mg/dL [place] GFR >60 >60 mL/min [place] GFR Non- >60 >60 mL/min [place] Glucose [Mass/Vol] 99 mg/dL 70 - 99 mg/dL [place] Interpretation and review of laboratory results Abnormal [place] Potassium [Moles/Vol] 4.3 mmol/L 3.7 - 5.3 mmol/L [place] Sodium [Moles/Vol] 137 mmol/L 135 - 144 mmol/L [place] Urea nitrogen [Mass/Vol] 10 mg/dL 6 - 20 mg/dL [place] CBCon 07-04-2020 Erythrocyte distribution width (RBC) [Ratio] 11.8 % 11.8 - 14.4 % [place] Hematocrit (Bld) [Volume fraction] 37.2 % 36.3 - 47.1 % [place] Hemoglobin (Bld) [Mass/Vol] 12.5 g/dL 11.9 - 15.1 g/dL [place] MCH (RBC) [Entitic mass] 30.9 pg 25.2 - 33.5 pg [place] MCHC (RBC) [Mass/Vol] 33.6 g/dL 28.4 - 34.8 g/dL [place] MCV (RBC) [Entitic vol] 91.9 fL 82.6 - 102.9 fL [place] Platelet mean volume (Bld) [Entitic vol] 10.1 fL 8.1 - 13.5 fL [place] Platelets (Bld) [#/Vol] 289 10*3/uL [place] RBC (Bld) [#/Vol] 4.05 10*6/uL 3.95 - 5.11 m/uL [place] WBC (Bld) [#/Vol] 0.0 10*3/uL 0.0 per 100 WBC [place] WBC (Bld) [#/Vol] 6.8 10*3/uL [place] Echo 2D w doppler w color co mpleteon 07-04-2020 [facility] Transthoracic Echocardiography Report (TTE) Patient Name ADRIÁN Date of Study 07/04/2020 MIKE N Date of 1975 Gender Female Age 44 year(s) Race Room Number Height: 64 inch, 162.56 cm Corporate ID [id number] Weight: 192 pounds, 87.1 kg # Patient Acct [id number] BSA: 1.92 m^2 BMI: 32.96 # kg/m^2 MR # [id number] [employer] Interpreting Physician Ronan Rodriguez Fellow Referring Nurse Practitioner Interpreting Referring Physician Nat Mora Type of Study TTE procedure:2D Echocardiogram, M-Mode, Doppler, Color Doppler. Procedure Date Date: 07/04/2020 Start: 11:51 AM Study Location: [facility] Indications:Chest pain and Palpitations. History / [...] Wall E' velocity:0.12 m/s Lateral Wall E/E':4.86 [facility] [place], [place] Benoit, Mhpn Incoming Cardio Results From [employer] - 07/04/2020 6:40 PM EST [facility] Transthoracic Echocardiography Report (TTE) Patient Name ADRIÁN Date of Study 07/04/2020 MIKE N Date of 1975 Gender Female Age 44 year(s) Race Room Number Height: 64 inch, 162.56 cm Corporate ID [id number] Weight: 192 pounds, 87.1 kg # Patient Acct [id number] BSA: 1.92 m^2 BMI: 32.96 # kg/m^2 MR # [id number] [employer] Interpreting Physician Ronan Rodriguez Fellow Referring Nurse Practitioner Interpreting Referring Physician Nat Mora Type of Study TTE procedure:2D Echocardiogram, M-Mode, Doppler, Color Doppler. Procedure Date Date: 07/04/2020 Start: 11:51 AM Study Location: [facility] Indications:Chest pain and Palpitations. History / [...] - --- - Electronically signed by [facility]) on 07/04/2020 06:40 PM --- - FINDINGS Left Atrium The left [...] Wall E' velocity:0.12 m/s Lateral Wall E/E':4.86 [place] Metabolic Panelon 07-04-2020 GFR/1.73 sq M predicted among non-blacks MDRD (S/P/Bld) [Vol rate/Area] [place] Comment on above: Stage 1: Some [...] body mass. Additional eGFR calculator available at: http://www.CloudX.Adocia/multiple_crcl_2012.htm APTTon 06-17-2020 aPTT Coag (Bld) [Time] 28.3 s [place] Comment on above: IV Heparin Therapy Range: 62.0-94.0 Brain Natriuretic Peptideon 06-17-2020 Natriuretic peptide B (Bld) [Mass/Vol] Pro-BNP Reference Range: [place], [place] Comment on above: Rule Out: <300 [place] Zone: Age <50 300-450 Age 50-75 300-900 Age >75 300-1800 Usually represents mild to moderate HF but other cardiopulmonary causes cannot be ruled out. Rule In: Age <50 >450 Age 50-75 >900 Age >75 >1800 Natriuretic peptide B (Bld) [Mass/Vol] 59 pg/mL <300 [place] Comment on above: Pro-BNP results alirio ot be compared to BNP results. CBC Auto Differentialon 05-21 Basophils (Bld) [#/Vol] 10*3/uL [place] Basophils/100 WBC (Bld) 0 % 0 - 2 % [place] Differential Type NOT REPORTED [place] Eosinophils (Bld) [#/Vol] 10*3/uL [place] Eosinophils/100 WBC (Bld) 0 % Low 1 - 4 % [place] Erythrocyte distribution width (RBC) [Ratio] 12.0 % 11.8 - 14.4 % [place] Hematocrit (Bld) [Volume fraction] 38.2 % 36.3 - 47.1 % [place] Hemoglobin (Bld) [Mass/Vol] 13.0 g/dL 11.9 - 15.1 g/dL [place] Immature granulocytes (Bld) [#/Vol] 0 % 0 [place] Immature granulocytes (Bld) [#/Vol] 10*3/uL [place] Interpretation and review of laboratory results Abnormal [place] Lymphocytes (Bld) [#/Vol] 1.51 10*3/uL [place] Lymphocytes/100 WBC (Bld) 31 % 24 - 43 % [place] MCH (RBC) [Entitic mass] 30.6 pg 25.2 - 33.5 pg [place] MCHC (RBC) [Mass/Vol] 34.0 g/dL 28.4 - 34.8 g/dL [place] MCV (RBC) [Entitic vol] 89.9 fL 82.6 - 102.9 fL [place] Monocytes (Bld) [#/Vol] 0.55 10*3/uL [place] Monocytes/100 WBC (Bld) 11 % 3 - 12 % [place] Platelet mean volume (Bld) [Entitic vol] 9.9 fL 8.1 - 13.5 fL [place] Platelets (Bld) [#/Vol] NOT REPORTED [place] Platelets (Bld) [#/Vol] 198 10*3/uL [place] RBC (Bld) [#/Vol] 4.25 10*6/uL 3.95 - 5.11 m/uL [place] RBC morphology finding Nom (Bld) NOT REPORTED [place] Segmented neutrophils/100 WBC (Bld) 58 % 36 - 65 % [place] Segs Absolute 2.69 [place] WBC (Bld) [#/Vol] 0.0 10*3/uL 0.0 per 100 WBC [place] WBC (Bld) [#/Vol] 4.8 10*3/uL [place] WBC Morphology NOT REPORTED [place] Comprehensive Metabolic Pane l w/ Reflex to MGon 06-17-2020 Albumin [Mass/Vol] 4 g/dL 3.5 - 5.2 g/dL [place] Albumin/Globulin [Mass ratio] 1.5 {ratio} [place] ALP [Catalytic activity/Vol] 109 U/L High 35 - 104 U/L [place] ALT [Catalytic activity/Vol] 88 U/L High 5 - 33 U/L [place] Anion gap [Moles/Vol] 8 mmol/L Low 9 - 17 mmol/L [place] AST [Catalytic activity/Vol] 71 U/L High <32 [place] Bilirubin Ql (U) 0.29 mg/dL Low 0.3 - 1.2 mg/dL [place] Bun/Cre Ratio 9 [place] Calcium [Mass/Vol] 8.7 mg/dL 8.6 - 10. 4 mg/dL [place] Chloride [Moles/Vol] 107 mmol/L 98 - 10 7 mmol/L [place] CO2 [Moles/Vol] 23 mmol/L 20 - 31 mmol/L [place] Creatinine [Mass/Vol] 0.57 mg/dL 0.5 - 0.9 mg/dL [place] GFR >60 >60 mL/min [place] GFR Non- >60 >60 mL/min [place] Glucose [Mass/Vol] 119 mg/dL High 70 - 99 mg/dL [place] Interpretation and review of laboratory results Abnormal [place] Potassium [Moles/Vol] 3.7 mmol/L 3.7 - 5.3 mmol/L [place] Protein [Mass/Vol] 6.6 g/dL 6.4 - 8.3 g/dL [place] Sodium [Moles/Vol] 138 mmol/L 135 - 144 mmol/L [place] Urea nitrogen [Mass/Vol] 5 mg/dL Low 6 - 20 mg/dL [place] Metabolic Panelon 06-17-2020 GFR/1.73 sq M predicted among non-blacks MDRD (S/P/Bld) [Vol rate/Area] [place] Comment on above: Average GFR for 40-4 9 years old: 99 mL/min/1.73sq m Chronic Kidney Disease: <60 mL/min/1.73sq m Kidney failure: <15 mL/min/1.73sq m eGFR calculated using average adult body mass. Additional eGFR calculator available at: http://www.CloudX.Adocia/multiple_crcl_2012.htm Stage 1: Some kidney damage normal GFR Stage 2: Mild kidney damage GFR 60-89 Stage 3: Moderate kidney damage GFR 30-59 Stage 4: Severe kidney damage GFR 15-29 Stage 5: Severe kidney damage GFR <15 ESRD - chronic treatment by dialysis or transplant Protime-INRon 06-17-2020 INR Coag (PPP) [Relative time] 0.9 {INR} [place] Comment on above: Non-therapeutic Range: INR = 0.9-1.2 Therapeutic Range: Moderate Anticoagulant Intensity: INR = 2.0-3.0 High Anticoagulant Intensity: INR = 2.5-3.5 PT Coag (PPP) [Time] 12.4 s [place], [place] Troponinon 06-17-2020 Troponin I.cardiac [Mass/Vol] NOT REPORTED [place], [place] Troponin T.cardiac [Mass/Vol] NOT REPORTED <0.03 ng/mL [place], [place] Troponin, High Sensitivity 6 ng/L 0 - 14 ng/L [place], [place] Comment on above: High Sensitivity Troponin values cannot be compared with other Troponin methodologies. Patients with high levels of Biotin oral intake (i.e >5mg/day) may have falsely decreased Troponin levels. Samples collected within 8 hours of biotin intake may require additional information for diagnosis. Troponin I.cardiac [Mass/Vol] NOT REPORTED [place] Troponin T.cardiac [Mass/Vol] NOT REPORTED <0.03 ng/mL [place] Troponin, High Sensitivity <6 0 - 14 ng/L [place], [place] Comment on above: High Sensitivity Troponin values cannot be compared with other Troponin methodologies. Patients with high levels of Biotin oral intake (i.e >5mg/day) may have falsely decreased Troponin levels. Samples collected within 8 hours of biotin intake may require additional information for diagnosis. XR CHEST PORTABLEon 06-17-20 20 [place] Incoming Radiant Results From [employer] - 06/17/2020 10:47 AM EST EXAMINATION: ONE XRAY VIEW OF THE CHEST 06/17/2020 10:40 am COMPARISON: 12/28/2019 HISTORY: ORDERING SYSTEM PROVIDED HISTORY: Cp TECHNOLOGIST PROVIDED HISTORY: Cp FINDINGS: The cardiomediastinal silhouette is within normal limits. There is no consolidation, pneumothorax or evidence for edema. No evidence for effusion. No acute osseous abnormality is identified. IMPRESSION: No acute airspace disease identified. [place] EXAMINATION: ONE XRA Y VIEW OF THE CHEST 06/17/2020 10:40 am COMPARISON: 12/28/2019 HISTORY: ORDERING SYSTEM PROVIDED HISTORY: Cp TECHNOLOGIST PROVIDED HISTORY: Cp FINDINGS: The cardiomediastinal silhouette is within normal limits. There is no consolidation, pneumothorax or evidence for edema. No evidence for effusion. No acute osseous abnormality is identified. [place], [place] No acute airspace disease identified. [place] Laboratory - Microbiology an d Antimicrobial susceptibilityOrdered By: Tao Reece on 06-04-2020 SARS-CoV-2 (COVID-19) RNA FAUSTINA+probe Ql (Resp) Not detected (Not Detected ) [facility] Work Phone: Comment on above: Note: This nucleic a deepti amplification test was developed and itsperformance characteristics determined by [employer]. Nucleic acid amplification tests include PCRand TMA. This test has not been FDA cleared or approved.This test has been authorized by FDA under an Emergency UseAuthorization (EUA). This test is only authorized forthe duration of time the declaration that circumstancesexist justifying the authorization of the emergency use ofin vitro diagnostic tests for detection of SARS-CoV-2 virusand/or diagnosis of COVID-19 infection under ezojwnm176(b)(1) of the Act, 21 U.S.C. 360bbb-3(b) (1), [...] 06-04-2020 SARS-CoV-2, FAUSTINA Not Detected (Not Detected) [facility] Work Phone: Comment on above: Note: This nucleic a deepti amplification test was developed and itsperformance characteristics determined by [employer]. Nucleic acid amplification tests include PCRand TMA. This test has not been FDA cleared or approved.This test has been authorized by FDA under an Emergency UseAuthorization (EUA). This test is only authorized forthe duration of time the declaration that circumstancesexist justifying the authorization of the emergency use ofin vitro diagnostic tests for detection of SARS-CoV-2 virusand/or diagnosis of COVID-19 infection under jplmbea608(b)(1) of the Act, 21 U.S.C. 360bbb-3(b) (1), [...] (Resp) Not detected (Not Detected ) [facility] Work Phone: Comment on above: Note: [...] SARS-CoV-2 virusand/or diagnosis of COVID-19 infection under xyysalw025(b)(1) of the Act, 21 U.S.C. 360bbb-3(b) (1), [...] 05-02-2020 SARS-CoV-2, FAUSTINA Not Detected (Not Detected) [facility] Work Phone: Comment on above: Note: This [...] SARS-CoV-2 virusand/or diagnosis of COVID-19 infection under snolehw552(b)(1) of the Act, 21 U.S.C. 360bbb-3(b) (1), [...] acute osseous abnormality or foreign body identified. [facility] [place] EXAMINATION: TWO XRA Y VIEWS OF THE [...] maintained. No discrete soft tissue abnormality identified. [facility] [place], [place] Incoming Radiant Results From [employer] - 04/28/2020 4:26 PM EDT EXAMINATION: TWO [...] acute osseous abnormality or foreign body identified. [place] Estradiolon 02-14-2020 Estradiol <5 Low 27 - 314 pg/mL [place] Comment on above: FEMALES: Normally menstruating Luteal phase 33-298 Follicular phase 27-156 Midcycle phase 48-314 Postmenopausal (untreated) 5-50 Fulvestrant treatment will show an increased estradiol concentration with this methodology. Alternate methodologies are available upon request. Interpretation and review of laboratory results Abnormal [place] Follicle Stimulating Hormone on 02-14-2020 FSH 40.4 U/L High 1.7 - 21.5 U/L [place] Comment on above: Reference Range: Male: 1.5-12.4 Ovulating Female: Follicular Phase 3.5-12.5 Ovulation Phase 4.7-21.5 Luteal Phase 1.7-7.7 Postmenopausal Female: 25.8-134.8 Interpretation and review of laboratory results Abnormal [place] TSH with Reflexon 02-14-2020 TSH Qn 2.33 m[IU]/L [place] Activated clotting timeon Activated Clotting Time 289 High M [place], [place] Interpretation and review of laboratory results Abnormal [place] Basic Metabolic Panel w/ Ref golden to MGon 12-29-2019 Anion gap [Moles/Vol] 13 mmol/L 9 - 17 mmol/L [place] Bun/Cre Ratio 19 [place] Calcium [Mass/Vol] 8.8 mg/dL 8.6 - 10. 4 mg/dL [place] Chloride [Moles/Vol] 109 mmol/L High 98 - 10 7 mmol/L [place] CO2 [Moles/Vol] 20 mmol/L 20 - 31 mmol/L [place] Creatinine [Mass/Vol] 0.63 mg/dL 0.5 - 0.9 mg/dL [place] GFR >60 >60 mL/min [place] GFR Non- >60 >60 mL/min [place] Glucose [Mass/Vol] 113 mg/dL High 70 - 99 mg/dL [place] Interpretation and review of laboratory results Abnormal [place] Potassium [Moles/Vol] 3.8 mmol/L 3.7 - 5.3 mmol/L [place] Sodium [Moles/Vol] 142 mmol/L 135 - 144 mmol/L [place] Urea nitrogen [Mass/Vol] 12 mg/dL 6 - 20 mg/dL [place] COVID-19on 12-29-2019 SARS-CoV-2 [place] SARS-CoV-2, PCR [place] SARS-CoV-2, Rapid Not Detected Not Detected [place] Comment on above: Rapid NAAT: The [...] management decisions. Fact sheet for Healthcare Providers: https://www.fda.gov/media/364955/download Fact sheet for Patients: https://www.fda.gov/media/658999/download Methodology: Isothermal Nucleic Acid Amplification Source .NASOPHARYNGEAL SWAB [place] Cardiac Catheterizationon Cardiac Diagnostic + PCI Report Demographics Patient ADRIÁN Bee Date of Study 12/29/2019 Name Date of 1975 Gender Female Age 44 year(s) Race Room [id number]^EDWINA^MICHAEL Height: 64 inch, 162.56 cm Number Corporate [id number] Weight: 196 pounds, 88.9 kg ID # Patient [id number] BSA: 1.94 m^2 BMI: 33.64 Acct # kg/m^2 MR # [id number] Performing Physician Michael Arroyo Referring Physician # [...] with VALERIY III flow Devices used - [place] IVUS [place] Catheter (Apalya). Number of passes: 1. - ASAHI Prowater [...] S.Q. 10 ml. - Heparin I.V. bolus 62540 units. - Nitroglycerin I.C. 200 mcg. - Nitroglycerin I.C. 200 mcg. - Plavix P.O. 300 mg. Catheters and Wires: - 7F Guide Catheter XB 3.5 was used for Left coronary angiography. Contrast Material: - Optiray [id number] ml Fluoroscopy Time: Diagnostic: 7:58 minutes. Total: [...] assessed as CCS III according to the Moroccan clinical classification. Hemodynamics Condition: Baseline Room Air Estimated: 179.59Heart Rate: 50 bpm Pressure +-----+ ---+ !Site !Pressure ! +-----+ ---+ !AO !122/66 (89) ! +-----+ ---+ Shunts Oxygen Values O2 Tztqeeue070.96O2 Sbylsnkvtgj999.59 [facility] [place], [place] Incoming Cardio Results From [facility]/ - 12/29/2019 3:33 PM EDT Cardiac Diagnostic + PCI Report Demographics Patient ADRIÁN Bee Date of Study 12/29/2019 Name Date of 1975 Gender Female Age 44 year(s) Race Room 3006613^EDWINA^MICHEAL Height: 64 inch, 162.56 cm Number Corporate [id number] Weight: 196 pounds, 88.9 kg ID # Patient [id number] BSA: 1.94 m^2 BMI: 33.64 Acct # kg/m^2 MR # [id number] Performing Physician Michael Arroyo Referring Physician # [...] with VALERIY III flow Devices used - [place] IVUS [place] Catheter ([place]a). Number of passes: 1. - ASAHI Prowater [...] S.Q. 10 ml. - Heparin I.V. bolus 97395 units. - Nitroglycerin I.C. 200 mcg. - Nitroglycerin I.C. 200 mcg. - Plavix P.O. 300 mg. Catheters and Wires: - 7F Guide Catheter XB 3.5 was used for Left coronary angiography. Contrast Material: - Optiray [id number] ml Fluoroscopy Time: Diagnostic: 7:58 minutes. Total: [...] assessed as CCS III according to the Moroccan clinical classification. Hemodynamics Condition: Baseline Room Air Estimated: 179.59Heart Rate: 50 bpm Pressure +-----+ --- + !Site !Pressure ! +-----+ --- + !AO !122/66 (89) ! +-----+ --- + Shunts Oxygen Values O2 Ldyshwrw604.96O2 Rkpazdnwlrg770.59 [place] Diagnostic Cardiac Control Systems Drafting Officer Procedureon 12-29-2019 Cardiac Diagnostic Report Demographics Patient ADRIÁN Bee Date of Study 12/29/2019 Name Date of 1975 Gender Female Age 44 year(s) Race Room [id number]^MICHAEL^RONAN Height: 64 inch, 162.56 cm Number Corporate [id number] Weight: 195 pounds, 88.4 kg ID # Patient [id number] BSA: 1.93 m^2 BMI: 33.45 Acct # kg/m^2 MR # [id number] Performing Physician MichaelRonan Referring Physician # Assisting Physician Additional Comments [...] for LV Pressure. Contrast Material: - Isovue 81352 ml Fluoroscopy Time: Diagnostic: 2:01 minutes. Total: [...] assessed as CCS IV according to the Moroccan clinical classification. Hemodynamics Condition: Baseline Room Air Estimated: 179.16Heart Rate: 51 bpm Pressure +-----+ ---+ !Site !Pressure ! +-----+ ---+ !AO !111/62 (82) ! +-----+ ---+ !AO !103/58 (76) ! +-----+ ---+ !LV !109/0 ,8 [...] --------+---------+----- -----+---------+-------- ---+ Shunts Oxygen Values O2 Nqmerwbv270.96O2 Pufkzxalrwa647.16 [facility] [place], [place], [place] Incoming Cardio Results From [facility]/ - 12/29/2019 1:22 PM EDT Cardiac Diagnostic Report Demographics Patient ADRIÁN Bee Date of Study 12/29/2019 Name Date of 1975 Gender Female Age 44 year(s) Race Room [id number]^DELONTE Height: 64 inch, 162.56 cm Number Corporate [id number] Weight: 195 pounds, 88.4 kg ID # Patient [id number] BSA: 1.93 m^2 BMI: 33.45 Acct # kg/m^2 MR # [id number] Performing Physician Ronan Rodriguez Referring Physician # [...] for LV Pressure. Contrast Material: - Isovue 33220 ml Fluoroscopy Time: Diagnostic: 2:01 minutes. Total: [...] assessed as CCS IV according to the Moroccan clinical classification. Hemodynamics Condition: Baseline Room Air [...] -----+---------+-------- --- + Shunts Oxygen Values O2 Xjvklucw543.96O2 Pmkqhxesgel475.16 [facility] [place] EKG 12 leadon 12-29-2019 Atrial Rate 51 BPM [facility] [place] P [place] 57 degrees [facility], [place] P-R Interval 178 ms [facility], [place] Q-T Interval 494 ms [facility], [place] QRS Duration 86 ms [facility], [place] QTc Calculation (Bazett) 455 ms [facility], [place] R [place] 2 degrees [facility], [place] T [place] 26 degrees [facility], [place] Ventricular Rate 51 BPM [facility], [place], [place] Incoming E kg Results From [employer] [facility] - 12/29/2019 8:53 AM EDT Sinus bradycardia Otherwise normal ECG When compared with ECG of 09-OCT-2019 03:52, Nonspecific T wave abnormality has replaced inverted T waves in Inferior leads Confirmed by GILMAR RICHTER ([id number]) on 12/29/2019 8:53:10 AM [place] Sinus bradycardia Otherwise normal ECG When compared with ECG of 09-OCT-2019 03:52, Nonspecific T wave abnormality has replaced inverted T waves in Inferior leads Confirmed by GILMAR RICHTER ([id number]) on 12/29/2019 8:53:10 AM [place] Lipid panel - fastingon 12-17 Cholesterol [Mass/Vol] 184 mg/dL <200 Me [place], [place] Comment on above: Cholesterol Guidelines: <200 Desirable 200-240 Borderline >240 Undesirable Cholesterol in HDL [Mass/Vol] 26 mg/dL Low >40 [place] Comment on above: HDL Guidelines: <40 Undesirable 40-59 Borderline >59 Desirable Cholesterol in LDL [Mass/Vol] 0 - 130 mg/dL [place] Comment on above: Calculation not jacy d for Triglyceride value greater than 400 mg/dL. Direct LDL reflexed LDL Guidelines: <100 Desirable 100-129 Near to/above Desirable 130-159 Borderline >159 Undesirable Direct (measured) LDL and calculated LDL are not interchangeable tests. Cholesterol in VLDL [Mass/Vol] NOT REPORTED 1 - 30 mg/dL [place] Cholesterol.total/Audelia sterol in HDL [Mass ratio] 7.1 {ratio} High <5 [place] Interpretation and review of laboratory results Abnormal [place] Triglyceride [Mass/Vol] 478 mg/dL High <150 M [place] Comment on above: Triglyceride Guidelines: <150 Desirable 150-199 Borderline 200-499 High >499 Very high Based on AHA Guidelines for fasting triglyceride, April 2012. Metabolic Panelon 12-29-2019 GFR/1.73 sq M predicted among non-blacks MDRD (S/P/Bld) [Vol rate/Area] [place], [place] Comment on above: Stage 1: Some [...] body mass. Additional eGFR calculator available at: http://www.Hellotravel/multiple_crcl_2012.htm CBCon 12-28-2019 Erythrocyte distribution width (RBC) [Ratio] 11.9 % 11.8 - 14.4 % [place] Hematocrit (Bld) [Volume fraction] 39.9 % 36.3 - 47.1 % [place] Hemoglobin (Bld) [Mass/Vol] 13.6 g/dL 11.9 - 15.1 g/dL [place] MCH (RBC) [Entitic mass] 30.4 pg 25.2 - 33.5 pg [place] MCHC (RBC) [Mass/Vol] 34.1 g/dL 28.4 - 34.8 g/dL [place] MCV (RBC) [Entitic vol] 89.3 fL 82.6 - 102.9 fL [place] Platelet mean volume (Bld) [Entitic vol] 10.1 fL 8.1 - 13.5 fL [place] Platelets (Bld) [#/Vol] 263 10*3/uL [place] RBC (Bld) [#/Vol] 4.47 10*6/uL 3.95 - 5.11 m/uL [place] WBC (Bld) [#/Vol] 7.3 10*3/uL [place] WBC (Bld) [#/Vol] 0.0 10*3/uL 0.0 per 100 WBC [place] Comprehensive Metabolic Pane l w/ Reflex to MGon 12-28-2019 Albumin [Mass/Vol] 4.7 g/dL 3.5 - 5.2 g/dL [place] Albumin/Globulin [Mass ratio] 2.0 {ratio} [place] ALP [Catalytic activity/Vol] 112 U/L High 35 - 104 U/L [place] ALT [Catalytic activity/Vol] 61 U/L High 5 - 33 U/L [place] Anion gap [Moles/Vol] 13 mmol/L 9 - 17 mmol/L [place] AST [Catalytic activity/Vol] 48 U/L High <32 [place] Bilirubin Ql (U) 0.42 mg/dL 0.3 - 1.2 mg/dL [place] Bun/Cre Ratio 18 [place] Calcium [Mass/Vol] 9.4 mg/dL 8.6 - 10. 4 mg/dL [place] Chloride [Moles/Vol] 101 mmol/L 98 - 10 7 mmol/L [place] CO2 [Moles/Vol] 22 mmol/L 20 - 31 mmol/L [place] Creatinine [Mass/Vol] 0.62 mg/dL 0.5 - 0.9 mg/dL [place] GFR >60 >60 mL/min [place] GFR Non- >60 >60 mL/min [place] Glucose [Mass/Vol] 93 mg/dL 70 - 99 mg/dL [place] Interpretation and review of laboratory results Abnormal [place] Potassium [Moles/Vol] 4.5 mmol/L 3.7 - 5.3 mmol/L [place] Protein [Mass/Vol] 7.1 g/dL 6.4 - 8.3 g/dL [place] Sodium [Moles/Vol] 136 mmol/L 135 - 144 mmol/L [place] Urea nitrogen [Mass/Vol] 11 mg/dL 6 - 20 mg/dL [place] Metabolic Panelon 12-28-2019 GFR/1.73 sq M predicted among non-blacks MDRD (S/P/Bld) [Vol rate/Area] [place] Comment on above: Stage 1: Some [...] body mass. Additional eGFR calculator available at: http://www.Hellotravel/multiple_crcl_2012.htm Troponinon 12-28-2019 Troponin I.cardiac [Mass/Vol] NOT REPORTED [place] Troponin T.cardiac [Mass/Vol] NOT REPORTED <0.03 ng/mL [place] Troponin, High Sensitivity <6 0 - 14 ng/L [place] Comment on above: High Sensitivity Troponin [...] Visualized bony thorax shows no acute abnormality. [place], [place] Incoming Radiant Results From [employer] - 12/28/2019 4:16 PM EDT EXAMINATION: TWO [...] acute findings. Stable when compared to previous. [place] Clear chest, no acut e findings. Stable when compared to previous. [place] CBCon 10-10-2019 Erythrocyte distribution width (RBC) [Ratio] 11.9 % 11.8 - 14.4 % [place] Hematocrit (Bld) [Volume fraction] 37.1 % 36.3 - 47.1 % [place] Hemoglobin (Bld) [Mass/Vol] 12.6 g/dL 11.9 - 15.1 g/dL [place] MCH (RBC) [Entitic mass] 30.3 pg 25.2 - 33.5 pg [place] MCHC (RBC) [Mass/Vol] 34.0 g/dL 28.4 - 34.8 g/dL [place] MCV (RBC) [Entitic vol] 89.2 fL 82.6 - 102.9 fL [place] Platelet mean volume (Bld) [Entitic vol] 9.8 fL 8.1 - 13.5 fL [place] Platelets (Bld) [#/Vol] 235 10*3/uL [place] RBC (Bld) [#/Vol] 4.16 10*6/uL 3.95 - 5.11 m/uL [place] WBC (Bld) [#/Vol] 10.1 10*3/uL [place] WBC (Bld) [#/Vol] 0.0 10*3/uL 0.0 per 100 WBC [place] EKG 12 Leadon 10-10-2019 Atrial Rate 87 BPM [place] P [place] 50 degrees [place] P-R Interval 162 ms [place] Q-T Interval 380 ms [place] QRS Duration 82 ms [place] QTc Calculation (Bazett) 457 ms [place] R [place] -5 degrees [place], [place] T [place] 22 degrees [place] Ventricular Rate 87 BPM [place], [place] Incoming E kg Results From [facility] - 10/10/2019 12:56 PM EDT Normal sinus rhythm Normal ECG When compared with ECG of 09-OCT-2019 10:13, Minimal criteria for Anterior infarct are no longer Present [place] Normal sinus rhythm Normal ECG When compared with ECG of 09-OCT-2019 10:13, Minimal criteria for Anterior infarct are no longer Present [place] EKG 12 leadon 10-10-2019 Atrial Rate 61 BPM [facility], [place] P [place] 39 degrees [facility], [place] P-R Interval 178 ms [facility], [place] Q-T Interval 446 ms [facility], [place] QRS Duration 78 ms [facility], [place] QTc Calculation (Bazett) 448 ms [facility], [place] R [place] 5 degrees [facility] [place], [place] T [place] 1 degrees [facility], [place] Ventricular Rate 61 BPM [facility], [place], [place] Incoming E kg Results From [employer] - 10/10/2019 12:56 PM EDT Normal sinus rhythm Cannot rule out Anterior infarct , age undetermined Abnormal ECG When compared with ECG of 21-OCT-2018 19:32, No significant change was found [facility], [place] Normal sinus rhythm Cannot rule out Anterior infarct , age undetermined Abnormal ECG When compared with ECG of 21-OCT-2018 19:32, No significant change was found [facility], [place] Echo Completeon 10-10-2019 Transthoracic Echocardiography Report (TTE) Patient Name ADRIÁN Date of Study 10/09/2019 MIKE N Date of 1975 Gender Female Age 43 year(s) Race Room Number 0543 Height: 64 inch, 162.56 cm Corporate ID [id number] Weight: 169 pounds, 76.7 kg # Patient Acct [id number] BSA: 1.82 m^2 BMI: 29.01 kg/m^2 # MR # [id number] [employer] Installation Helper Darrell,Juli Interpreting Physician Heladio Randolph Fellow Referring Nurse Practitioner Interpreting Referring Physician Mary Jane Oconnor MD Fellow Type of Study TTE procedure:2D Echocardiogram, M-Mode, Doppler, Color Doppler, Bubble Study. Procedure Date Date: 10/09/2019 Start: 03:57 PM Study Location: [facility] Technical Quality: Fair visualization History / [...] Wall E' velocity:0.07 m/s Lateral Wall E/E':9.2 [facility] [place], [place] Incoming Cardio Results From [facility] - 10/10/2019 9:55 AM EDT Transthoracic Echocardiography Report (TTE) Patient Name ADRIÁN Date of Study 10/09/2019 MIKE N Date of 1975 Gender Female Age 43 year(s) Race Room Number 0543 Height: 64 inch, 162.56 cm Corporate ID [id number] Weight: 169 pounds, 76.7 kg # Patient Acct [id number] BSA: 1.82 m^2 BMI: 29.01 kg/m^2 # MR # [id number] [employer] Install[employer] Helper Juli Ramírez Interpreting Physician Heladio Randolph Fellow Referring Nurse Practitioner Interpreting Referring Physician Mary Jane Oconnor MD Fellow Type of Study TTE procedure:2D Echocardiogram, M-Mode, Doppler, Color Doppler, Bubble Study. Procedure Date Date: 10/09/2019 Start: 03:57 PM Study Location: [facility] Technical Quality: Fair visualization History / [...] Wall E' velocity:0.07 m/s Lateral Wall E/E':9.2 [place] HOMOCYSTEINE, SERUMon 2019 Homocysteine 6.4 umol/L <15.0 [place] Troponinon 10-10-2019 Troponin I.cardiac [Mass/Vol] NOT REPORTED [place] Troponin T.cardiac [Mass/Vol] NOT REPORTED <0.03 ng/mL [place] Troponin, High Sensitivity <6 0 - 14 ng/L [place] Comment on above: High Sensitivity Troponin values cannot be compared with other Troponin methodologies. Patients with high levels of Biotin oral intake (i.e >5mg/day) may have falsely decreased Troponin levels. Samples collected within 8 hours of biotin intake may require additional information for diagnosis. Hemoglobin A1con 10-09-2019 Glucose [Mass/Vol] 105 mg/dL [place] Comment on above: The ADA and AACC rec ommend providing the estimated average glucose result to permit better patient understanding of their HBA1c result. HbA1c (Bld) [Mass fraction] 5.3 % 4 - 6 % [place] LDL Cholesterol, Directon Cholesterol in LDL [Mass/Vol] 99 mg/dL <100 [place] Lipid panel - fastingon 09-17 Cholesterol [Mass/Vol] 229 mg/dL High <200 Me [place], [place] Comment on above: Cholesterol Guidelines: <200 Desirable 200-240 Borderline >240 Undesirable Cholesterol in HDL [Mass/Vol] 27 mg/dL Low >40 [place] Comment on above: HDL Guidelines: <40 Undesirable 40-59 Borderline >59 Desirable Cholesterol in LDL [Mass/Vol] 0 - 130 mg/dL [place] Comment on above: Calculation not jacy d for Triglyceride value greater than 400 mg/dL. Direct LDL reflexed LDL Guidelines: <100 Desirable 100-129 Near to/above Desirable 130-159 Borderline >159 Undesirable Direct (measured) LDL and calculated LDL are not interchangeable tests. Cholesterol in VLDL [Mass/Vol] 1 - 30 mg/dL [place] Cholesterol.total/Audelia sterol in HDL [Mass ratio] 8.5 {ratio} High <5 [place] Interpretation and review of laboratory results Abnormal [place] Triglyceride [Mass/Vol] 586 mg/dL High <150 M [place] Comment on above: Triglyceride Guidelines: <150 Desirable 150-199 Borderline 200-499 High >499 Very high Based on AHA Guidelines for fasting triglyceride, April 2012. MRI brain without contraston 10-09-2019 [place], [facility] [place] Incoming Radiant Results From [employer] - 10/09/2019 12:50 PM EDT EXAMINATION: MRI [...] IMPRESSION: Unremarkable noncontrast MRI of the brain. [place] Unremarkable noncont rast MRI of the brain. [place] EXAMINATION: MRI OF THE BRAIN WITHOUT [...] The soft tissues demonstrate no acute abnormality. [place] STROKE PANELon 10-09-2019 % CKMB 1.7 % 0 - 3 % [place] Anion gap [Moles/Vol] 17 mmol/L 9 - 17 mmol/L [place] aPTT Coag (Bld) [Time] 24.1 s [place] Basophils (Bld) [#/Vol] 0.05 10*3/uL [place] Basophils/100 WBC (Bld) 1 % 0 - 2 % [place] Bun/Cre Ratio NOT REPORTED [facility] [place] Calcium [Mass/Vol] 8.7 mg/dL 8.6 - 10. 4 mg/dL [place] Chloride [Moles/Vol] 101 mmol/L 98 - 10 7 mmol/L [place] CK.MB [Mass/Vol] NORMAL ISOENZYME PATTERN [place] CK.MB [Mass/Vol] 1.1 ng/mL <5.4 [place] CO2 [Moles/Vol] 20 mmol/L 20 - 31 mmol/L [place] Creatinine [Mass/Vol] 0.49 mg/dL Low 0.5 - 0.9 mg/dL [place] Differential Type NOT REPORTED [place] Eosinophils (Bld) [#/Vol] 0.15 10*3/uL [place] Eosinophils/100 WBC (Bld) 2 % 1 - 4 % [place] Erythrocyte distribution width (RBC) [Ratio] 12.1 % 11.8 - 14.4 % [place] GFR >60 >60 mL/min [place] GFR Non- >60 >60 mL/min [place] GFR/1.73 sq M predicted among non-blacks MDRD (S/P/Bld) [Vol rate/Area] NOT REPORTED [place] GFR/1.73 sq M predicted among non-blacks MDRD (S/P/Bld) [Vol rate/Area] [place] Comment on above: Average GFR for 40-4 9 years old: 99 mL/min/1.73sq m Chronic Kidney Disease: <60 mL/min/1.73sq m Kidney failure: <15 mL/min/1.73sq m eGFR calculated using average adult body mass. Additional eGFR calculator available at: http://www.CloudX.Adocia/multiple_crcl_2011.htm Glucose [Mass/Vol] 103 mg/dL High 70 - 99 mg/dL [place] Hematocrit (Bld) [Volume fraction] 38.6 % 36.3 - 47.1 % [place] Hemoglobin (Bld) [Mass/Vol] 13.0 g/dL 11.9 - 15.1 g/dL [place] Immature granulocytes (Bld) [#/Vol] 1 % High 0 [place] Immature granulocytes (Bld) [#/Vol] 0.05 10*3/uL [place] INR Coag (PPP) [Relative time] 0.9 {INR} [place] Comment on above: Therapeutic Range: Moderate Anticoagulant Intensity: INR = 2.0-3.0 High Anticoagulant Intensity: INR = 2.5-3.5 Interpretation and review of laboratory results Abnormal [place] Lymphocytes (Bld) [#/Vol] 2.65 10*3/uL [place] Lymphocytes/100 WBC (Bld) 27 % 24 - 43 % [place] MCH (RBC) [Entitic mass] 30.5 pg 25.2 - 33.5 pg [place] MCHC (RBC) [Mass/Vol] 33.7 g/dL 28.4 - 34.8 g/dL [place] MCV (RBC) [Entitic vol] 90.6 fL 82.6 - 102.9 fL [place] Monocytes (Bld) [#/Vol] 0.63 10*3/uL [place], [place] Monocytes/100 WBC (Bld) 7 % 3 - 12 % [place] Myoglobin [Mass/Vol] ng/mL Low 25 - 58 ng/mL [place] Platelet mean volume (Bld) [Entitic vol] 9.9 fL 8.1 - 13.5 fL [place] Platelets (Bld) [#/Vol] 249 10*3/uL [place] Platelets (Bld) [#/Vol] NOT REPORTED [place] Potassium [Moles/Vol] 3.9 mmol/L 3.7 - 5.3 mmol/L [place] PT Coag (PPP) [Time] 9.8 s [place] RBC (Bld) [#/Vol] 4.26 10*6/uL 3.95 - 5.11 m/uL [place] RBC morphology finding Nom (Bld) NOT REPORTED [place] Segmented neutrophils/100 WBC (Bld) 62 % 36 - 65 % [place] Segs Absolute 6.15 [place], [place] Sodium [Moles/Vol] 138 mmol/L 135 - 144 mmol/L [place] Total CK 65 U/L 26 - 192 U/L [place] Troponin I.cardiac [Mass/Vol] NOT REPORTED [place] Troponin T.cardiac [Mass/Vol] NOT REPORTED <0.03 ng/mL [place] Troponin, High Sensitivity <6 0 - 14 ng/L [place] Comment on above: High Sensitivity Troponin values cannot be compared with other Troponin methodologies. Patients with high levels of Biotin oral intake (i.e >5mg/day) may have falsely decreased Troponin levels. Samples collected within 8 hours of biotin intake may require additional information for diagnosis. Urea nitrogen [Mass/Vol] 8 mg/dL 6 - 20 mg/dL [place] WBC (Bld) [#/Vol] 0.0 10*3/uL 0.0 per 100 WBC [place] WBC (Bld) [#/Vol] 9.7 10*3/uL [place] WBC Morphology NOT REPORTED [place], [place] Sedimentation Rateon 020 Sed Rate 16 mm 0 - 20 mm [place] Troponinon 10-09-2019 Troponin I.cardiac [Mass/Vol] NOT REPORTED [place] Troponin T.cardiac [Mass/Vol] NOT REPORTED <0.03 ng/mL [place] Troponin, High Sensitivity <6 0 - 14 ng/L [place] Comment on above: High Sensitivity Troponin values cannot be compared with other Troponin methodologies. Patients with high levels of Biotin oral intake (i.e >5mg/day) may have falsely decreased Troponin levels. Samples collected within 8 hours of biotin intake may require additional information for diagnosis. Troponin I.cardiac [Mass/Vol] NOT REPORTED [place] Troponin T.cardiac [Mass/Vol] NOT REPORTED <0.03 ng/mL [place] Troponin, High Sensitivity <6 0 - 14 ng/L [place] Comment on above: High Sensitivity Troponin values cannot be compared with other Troponin methodologies. Patients with high levels of Biotin oral intake (i.e >5mg/day) may have falsely decreased Troponin levels. Samples collected within 8 hours of biotin intake may require additional information for diagnosis. Basic Metabolic Panel w/ Ref golden to MGon 08-29-2019 Anion gap [Moles/Vol] 14 mmol/L 9 - 17 mmol/L [employer] Phone: Bun/Cre Ratio 18 [employer] Work Phone: Calcium [Mass/Vol] 9.0 mg/dL 8.6 - 10. 4 mg/dL [employer] Phone: Chloride [Moles/Vol] 100 mmol/L 98 - 10 7 mmol/L [employer] Phone: CO2 [Moles/Vol] 24 mmol/L 20 - 31 mmol/L [employer] Phone: Creatinine [Mass/Vol] 0.56 mg/dL 0.5 - 0.9 mg/dL [employer] Phone: GFR >60 >60 mL/min [employer] (deja mi) Phone: GFR Non- >60 >60 mL/min [employer] Phone: Glucose [Mass/Vol] 150 mg/dL High 70 - 99 mg/dL [employer] Phone: Interpretation and review of laboratory results Abnormal [employer] Phone: Potassium [Moles/Vol] 3.7 mmol/L 3.7 - 5.3 mmol/L [employer] Phone: Sodium [Moles/Vol] 138 mmol/L 135 - 144 mmol/L [employer] Phone: Urea nitrogen [Mass/Vol] 10 mg/dL 6 - 20 mg/dL [employer] Phone: CBC Auto Differentialon 08-19 Basophils (Bld) [#/Vol] 0.03 10*3/uL [employer] Phone: Basophils/100 WBC (Bld) 0 % 0 - 2 % M [employer] Phone: Differential Type NOT REPORTED [employer] Phone: Eosinophils (Bld) [#/Vol] 0.13 10*3/uL [employer] Phone: Eosinophils/100 WBC (Bld) 2 % 1 - 4 % [employer] Phone: Erythrocyte distribution width (RBC) [Ratio] 11.6 % Low 11.8 - 14.4 % [employer] Phone: Hematocrit (Bld) [Volume fraction] 35.6 % Low 36.3 - 47.1 % [employer] Phone: Hemoglobin (Bld) [Mass/Vol] 12.3 g/dL 11.9 - 15.1 g/dL [employer] Phone: Immature granulocytes (Bld) [#/Vol] 0.03 10*3/uL [employer] Phone: Immature granulocytes (Bld) [#/Vol] 0 % 0 [employer] Phone: Interpretation and review of laboratory results Abnormal [employer] Phone: Lymphocytes (Bld) [#/Vol] 2.09 10*3/uL [employer] Phone: Lymphocytes/100 WBC (Bld) 27 % 24 - 43 % [employer] Phone: MCH (RBC) [Entitic mass] 30.4 pg 25.2 - 33.5 pg [employer] Phone: MCHC (RBC) [Mass/Vol] 34.6 g/dL 28.4 - 34.8 g/dL [employer] Phone: MCV (RBC) [Entitic vol] 87.9 fL 82.6 - 102.9 fL [employer] Phone: Monocytes (Bld) [#/Vol] 0.39 10*3/uL [employer] Phone: Monocytes/100 WBC (Bld) 5 % 3 - 12 % M [facility] Phone: Platelet mean volume (Bld) [Entitic vol] 9.8 fL 8.1 - 13.5 fL [employer] Phone: Platelets (Bld) [#/Vol] NOT REPORTED [employer] Phone: Platelets (Bld) [#/Vol] 261 10*3/uL [employer] Phone: RBC (Bld) [#/Vol] 4.05 10*6/uL 3.95 - 5.11 m/uL [employer] Phone: RBC morphology finding Nom (Bld) NOT REPORTED [facility] Phone: Segmented neutrophils/100 WBC (Bld) 66 % High 36 - 65 % [facility] Phone: Segs Absolute 4.95 [facility] [facility] [employer] Work Phone: WBC (Bld) [#/Vol] 7.6 10*3/uL [employer] Phone: WBC (Bld) [#/Vol] 0.0 10*3/uL 0.0 per 100 WBC [employer] Phone: WBC Morphology NOT REPORTED [facility] Work Phone: Metabolic Panelon 08-29-2019 GFR/1.73 sq M predicted among non-blacks MDRD (S/P/Bld) [Vol rate/Area] [employer] Phone: Comment on above: Average GFR for 40-4 9 years old: 99 mL/min/1.73sq m Chronic Kidney Disease: <60 mL/min/1.73sq m Kidney failure: <15 mL/min/1.73sq m eGFR calculated using average adult body mass. Additional eGFR calculator available at: http://www.CloudX.Adocia/multiple_crcl_2012.htm Stage 1: Some kidney damage normal GFR Stage 2: Mild kidney damage GFR 60-89 Stage 3: Moderate kidney damage GFR 30-59 Stage 4: Severe kidney damage GFR 15-29 Stage 5: Severe kidney damage GFR <15 ESRD - chronic treatment by dialysis or transplant CBC Auto DifferentialOrdered By: Janae Landon on 08-21-2019 Absolute Eos # 0.13 [employer] [facility] Work Phone: Absolute Immature Granulocyte 0.03 [employer] Work Phone: Absolute Lymph # 2.37 [facility] Work Phone: Absolute [place] # 0.62 [facility] Work Phone: Basophils (Bld) [#/Vol] 0.06 10*3/uL [employer] Work Phone: Basophils/100 WBC (Bld) 1 % 0 - 2 % M [facility] Work Phone: Differential Type NOT REPORTED [employer] Phone: Eosinophils/100 WBC (Bld) 1 % 1 - 4 % [employer] Phone: Erythrocyte distribution width (RBC) [Ratio] 11.4 % Low 11.8 - 14.4 % [employer] Phone: Hematocrit (Bld) [Volume fraction] 38.6 % 36.3 - 47.1 % [employer] Phone: Hemoglobin (Bld) [Mass/Vol] 13.6 g/dL 11.9 - 15.1 g/dL [employer] Phone: Immature granulocytes/100 WBC (Bld) 0 % 0 [employer] Phone: Interpretation and review of laboratory results Abnormal [employer] Phone: Lymphocytes/100 WBC (Bld) 26 % 24 - 43 % [employer] Work Phone: MCH (RBC) [Entitic mass] 30.6 pg 25.2 - 33.5 pg [employer] Work Phone: MCHC (RBC) [Mass/Vol] 35.2 g/dL High 28.4 - 34.8 g/dL [facility] Work Phone: MCV (RBC) [Entitic vol] 86.9 fL 82.6 - 102.9 fL [facility] Work Phone: Monocytes/100 WBC (Bld) 7 % 3 - 12 % M [facility] Work Phone: NRBC Automated 0.0 0.0 per 100 WBC [facility] Work Phone: Platelet Estimate NOT REPORTED [facility] Work Phone: Platelet mean volume (Bld) [Entitic vol] 9.8 fL 8.1 - 13.5 fL [facility] Work Phone: Platelets (Bld) [#/Vol] 279 10*3/uL [employer] Work Phone: RBC (Bld) [#/Vol] 4.44 10*6/uL 3.95 - 5.11 m/uL [facility] Work Phone: RBC morphology finding Nom (Bld) NOT REPORTED [facility] [employer] Work Phone: Segmented neutrophils/100 WBC (Bld) 65 % 36 - 65 % [facility] [employer] Work Phone: Segs Absolute 6.07 [employer] [facility] [employer] Work Phone: WBC (Bld) [#/Vol] 9.3 10*3/uL [employer] Work Phone: WBC Morphology NOT REPORTED [employer] Work Phone: Comprehensive Metabolic Pane lOrdered By: Janae Landon on 08-21-2019 Albumin [Mass/Vol] 4.8 g/dL 3.5 - 5.2 g/dL [employer] Phone: Albumin/Globulin [Mass ratio] 1.8 {ratio} [employer] Phone: ALP [Catalytic activity/Vol] 116 U/L High 35 - 104 U/L [employer] Phone: ALT [Catalytic activity/Vol] 30 U/L 5 - 33 U/L [employer] Phone: Anion gap [Moles/Vol] 14 mmol/L 9 - 17 mmol/L [employer] Phone: AST [Catalytic activity/Vol] 20 U/L <32 [employer] Phone: Bilirubin [Mass/Vol] 0.27 mg/dL Low 0.3 - 1 .2 mg/dL [employer] Phone: Bun/Cre Ratio 15 [employer] Work Phone: Calcium [Mass/Vol] 9.8 mg/dL 8.6 - 10. 4 mg/dL [employer] Phone: Chloride [Moles/Vol] 97 mmol/L Low 98 - 10 7 mmol/L [employer] Phone: CO2 [Moles/Vol] 25 mmol/L 20 - 31 mmol/L [employer] Phone: Creatinine [Mass/Vol] 0.66 mg/dL 0.5 - 0.9 mg/dL [employer] Phone: GFR >60 >60 mL/min [employer] (deja mi) Phone: GFR Comment [employer] Phone: Comment on above: Average GFR for 40-4 9 years old: 99 mL/min/1.73sq m Chronic Kidney Disease: <60 mL/min/1.73sq m Kidney failure: <15 mL/min/1.73sq m eGFR calculated using average adult body mass. Additional eGFR calculator available at: http://www.Hellotravel/multiple_crcl_2012.htm GFR Non- >60 >60 mL/min [employer] Phone: GFR Staging [employer] Phone: Comment on above: Stage 1: Some kidney damage normal GFR Stage 2: Mild kidney damage GFR 60-89 Stage 3: Moderate kidney damage GFR 30-59 Stage 4: Severe kidney damage GFR 15-29 Stage 5: Severe kidney damage GFR <15 ESRD - chronic treatment by dialysis or transplant Glucose [Mass/Vol] 95 mg/dL 70 - 99 mg/dL [employer] Phone: Interpretation and review of laboratory results Abnormal [employer] Phone: Potassium [Moles/Vol] 3.7 mmol/L 3.7 - 5.3 mmol/L [employer] Phone: Protein [Mass/Vol] 7.5 g/dL 6.4 - 8.3 g/dL [employer] Phone: Sodium [Moles/Vol] 136 mmol/L 135 - 144 mmol/L [employer] Phone: Urea nitrogen [Mass/Vol] 10 mg/dL 6 - 20 mg/dL [employer] Phone: D-dimer, quantitativeOrdered By: Janae Landon on 08-21-2019 D-Dimer, Quant 0.21 [employer] Phone: Comment on above: Elevated levels of [...] Landon on 08-21-2019 Atrial Rate 70 BPM [employer] Phone: P [place] 51 degrees [employer] Phone: P-R Interval 164 ms [employer] Work Phone: Q-T Interval 408 ms [employer] Work Phone: QRS Duration 82 ms [employer] Work Phone: QTc Calculation (Bazett) 440 ms [employer] Work Phone: R [place] -4 degrees [employer] Work Phone: T [place] 24 degrees [employer] Work Phone: Ventricular Rate 70 BPM [facility] Work Phone: Normal sinus rhythm Possible Left atrial enlargement Left ventricular hypertrophy Abnormal ECG When compared with ECG of 19-APR-2019 17:03, Nonspecific T wave abnormality no longer evident in Anterior leads Confirmed by GILMAR RICHTER ([id number]) on 08/21/2019 1:09:43 PM [employer] Work Phone: [place], [place] Incoming E kg Results From [employer] Mcgregor - 08/21/2019 1:09 PM EST Normal sinus rhythm Possible Left atrial enlargement Left ventricular hypertrophy Abnormal ECG When compared with ECG of 19-APR-2019 17:03, Nonspecific T wave abnormality no longer evident in Anterior leads Confirmed by GILMAR RICHTER ([id number]) on 08/21/2019 1:09:43 PM [employer] Work Phone: Microscopic UrinalysisOrdere d By: Janae Landon on 08-21-2019 - [employer] Work Phone: Amorphous, UA NOT REPORTED None [facility] Work Phone: Bacteria, UA TRACE Abnormal None [employer] Work Phone: Casts UA NOT REPORTED /LPF [employer] Work Phone: Crystals UA NOT REPORTED None /HPF [facility] Work Phone: Epithelial Cells UA 0 TO 2 [employer] Work Phone: Interpretation and review of laboratory results Abnormal [employer] Work Phone: Mucus, UA NOT REPORTED None [facility] Work Phone: Other Observations UA NOT REPORTED NOT REQ. [facility] [employer] Work Phone: RBC, UA 0 TO 2 [facility] Work Phone: Renal Epithelial, Urine NOT REPORTED 0 /HPF [facility] Work Phone: Trichomonas, UA NOT REPORTED None [facility]alt Work Phone: WBC, UA 0 TO 2 [facility] Work Phone: Yeast, UA NOT REPORTED None [facility] Work Phone: TroponinOrdered By: Janae Landon on 08-21-2019 Troponin Interp [facility] Work Phone: Comment on above: Reference [...] for diagnosis. Troponin T <0.03 <0.03 ng/mL [employer] Phone: Comment on above: Troponin T results c annot be compared to Troponin-I results. Troponin, High Sensitivity NOT REPORTED 0 - 14 ng/L [facility] Work Phone: Troponin Interp [facility] Work Phone: Comment on above: Reference [...] for diagnosis. Troponin T <0.03 <0.03 ng/mL [employer] Phone: Comment on above: Troponin T results c annot be compared to Troponin-I results. Troponin, High Sensitivity NOT REPORTED 0 - 14 ng/L [facility] Phone: Urinalysis Reflex to Culture Ordered By: Janae Landon on 08-21-2019 Bilirubin Urine Negative NEGATIVE [facility]. [facility] Work Phone: Color, UA STRAW Abnormal YELLOW [facility] [employer] Work Phone: Glucose, Ur Negative NEGATIVE [facility] [employer] Work Phone: Interpretation and review of laboratory results Abnormal [facility] Phone: Ketones Ql (U) Negative NEGATIVE [facility]. [facility] Work Phone: Leukocyte esterase Test strip Ql (U) Negative NEGATIVE [facility] Phone: Nitrite, Urine Negative NEGATIVE [facility]Work[facility] Work Phone: pH, UA 6.0 [facility] [employer] Work Phone: Protein, UA Negative NEGATIVE [facility] [employer] Phone: Specific [place], UA 1.010 [facility] [employer] Work Phone: Turbidity UA CLEAR CLEAR [facility] Phone: Urinalysis Comments NOT REPORTED [facility] [employer] Work Phone: Urine Hgb TRACE Abnormal NEGATIVE [facility] [employer] Phone: Urobilinogen, Urine Normal Normal [facility] [employer] Phone: XR CHEST STANDARD (2 VW)Orde red By: Janae Landon on 08-21-2019 No acute cardiopulmo nary process. [employer] Work Phone: EXAMINATION: TWO XRA Y VIEWS [...] unremarkable. There is no acute osseous abnormality. [employer] Phone: [place], [place] Incoming Radiant Results From [employer] - 08/21/2019 10:31 AM EST EXAMINATION: TWO [...] osseous abnormality. IMPRESSION: No acute cardiopulmonary process. [employer] Phone: MANDY SCREEN WITH REFLEXon Interpretation and review of laboratory results Abnormal [place] Nuclear Ab IF (S) [Titer] Positive Abnormal NEGATIVE [place] MANDY profileon 04-21-2019 MANDY Reference Range: [place], [place] Comment on above: The following refere nce range is applicable for MANDY antibodies, including: Anti-Reza (Sm), Anti-ESTHETICIAN MAKEUP ARTIST, Anti-Scleroderma (Scl-70), Anti-Sjogren A (SSA), Anti-Sjogren B (SSB), Anti-Deya, Anti-Centromere, Anti-Histone REFERENCE RANGE: Negative <100 U/mL Positive >120 U/mL Equivocal 100-120 U/mL The following reference range is applicable for Anti-Double Strand DNA (dsDNA): REFERENCE RANGE: Negative <100 IU/mL Positive >120 IU/mL Equivocal 100-120 IU/mL Anti ds DNA 10 <100 IU/mL [facility], [place] Anti Histone 14 U/mL <100 [facility], [place] Anti DEYA-1 11 U/mL <100 [facility], [place] Anti ESTHETICIAN MAKEUP ARTIST 488 U/mL High <100 [facility], [place] Anti SSA 9 U/mL <100 [facility] Anti SSB 13 U/mL <100 [facility] Anti-Centromere 5 U/mL <[address] [facility], [place] Anti-Scleroderma 15 U/mL <100 [place] Anti-Reza 18 U/mL <100 [place] Interpretation and review of laboratory results Abnormal [place] POC Glucose Fingerstickon Glucose [Mass/Vol] 153 mg/dL High 65 - 105 mg/dL [place] Interpretation and review of laboratory results Abnormal [place] Glucose [Mass/Vol] 126 mg/dL High 65 - 105 mg/dL [place] Interpretation and review of laboratory results Abnormal [place] Glucose [Mass/Vol] 148 mg/dL High 65 - 105 mg/dL [place] Interpretation and review of laboratory results Abnormal [place] BASIC METABOLIC PANELon 10 Anion gap [Moles/Vol] 17 mmol/L 9 - 17 mmol/L [place] Bun/Cre Ratio NOT REPORTED [place] Calcium [Mass/Vol] 9.5 mg/dL 8.6 - 10. 4 mg/dL [place] Chloride [Moles/Vol] 102 mmol/L 98 - 10 7 mmol/L [place] CO2 [Moles/Vol] 18 mmol/L Low 20 - 31 mmol/L [place] Creatinine [Mass/Vol] 0.52 mg/dL 0.5 - 0.9 mg/dL [place] GFR >60 >60 mL/min [place] GFR Non- >60 >60 mL/min [place] GFR/1.73 sq M predicted among non-blacks MDRD (S/P/Bld) [Vol rate/Area] NOT REPORTED [place] GFR/1.73 sq M predicted among non-blacks MDRD (S/P/Bld) [Vol rate/Area] [place] Comment on above: Average GFR for 40-4 9 years old: 99 mL/min/1.73sq m Chronic Kidney Disease: <60 mL/min/1.73sq m Kidney failure: <15 mL/min/1.73sq m eGFR calculated using average adult body mass. Additional eGFR calculator available at: http://www.Hellotravel/multiple_crcl_2012.htm Glucose [Mass/Vol] 146 mg/dL High 70 - 99 mg/dL [place] Interpretation and review of laboratory results Abnormal [place] Potassium [Moles/Vol] 4.4 mmol/L 3.7 - 5.3 mmol/L [place] Sodium [Moles/Vol] 137 mmol/L 135 - 144 mmol/L [place] Urea nitrogen [Mass/Vol] 9 mg/dL 6 - 20 mg/dL [place] CBCon 04-20-2019 Erythrocyte distribution width (RBC) [Ratio] 12.4 % 11.8 - 14.4 % [place] Hematocrit (Bld) [Volume fraction] 42.4 % 36.3 - 47.1 % [place] Hemoglobin (Bld) [Mass/Vol] 13.0 g/dL 11.9 - 15.1 g/dL [place] Interpretation and review of laboratory results Abnormal [place] MCH (RBC) [Entitic mass] 31.7 pg 25.2 - 33.5 pg [place] MCHC (RBC) [Mass/Vol] 30.7 g/dL 28.4 - 34.8 g/dL [place] MCV (RBC) [Entitic vol] 103.4 fL High 82.6 - 102.9 fL [place] Platelet mean volume (Bld) [Entitic vol] 10.7 fL 8.1 - 13.5 fL [place] Platelets (Bld) [#/Vol] 240 10*3/uL [place] RBC (Bld) [#/Vol] 4.10 10*6/uL 3.95 - 5.11 m/uL [place] WBC (Bld) [#/Vol] 0.0 10*3/uL 0.0 per 100 WBC [place] WBC (Bld) [#/Vol] 15.1 10*3/uL [place] CT ABDOMEN PELVIS W IV CONTR AST Additional Contrast? Noneon 04-20-2019 Cholesterol [Mass/Vol] Normal appendix. No bowel obstruction. Prior cholecystectomy and hysterectomy. Trace nonspecific free fluid in the posterior pelvis may be physiologic. [place], [place] Incoming Radiant Results From [employer] - 04/20/2019 12:16 AM EDT EXAMINATION: CT [...] in the posterior pelvis may be physiologic. [place] EXAMINATION: CT OF T HE ABDOMEN [...] No lymphadenopathy in the abdomen or pelvis. [place] HEMOGLOBIN A1Con 04-20-2019 Glucose [Mass/Vol] 111 mg/dL [place] Comment on above: The ADA and AACC rec ommend providing the estimated average glucose result to permit better patient understanding of their HBA1c result. HbA1c (Bld) [Mass fraction] 5.5 % 4 - 6 % [place] MRI Brain WO Contraston 10-0 [place], [facility] [place] Incoming Radiant Results From [employer] - 04/20/2019 9:41 AM EDT EXAMINATION: MRI [...] abnormality. IMPRESSION: Unremarkable MRI of the brain. [place] EXAMINATION: MRI OF THE BRAIN WITHOUT [...] The soft tissues demonstrate no acute abnormality. [place] Unremarkable MRI of the brain. [place] POC Glucose Fingerstickon Glucose [Mass/Vol] 114 mg/dL High 65 - 105 mg/dL [place] Interpretation and review of laboratory results Abnormal [place] Glucose [Mass/Vol] 146 mg/dL High 65 - 105 mg/dL [place] Interpretation and review of laboratory results Abnormal [place] Glucose [Mass/Vol] 132 mg/dL High 65 - 105 mg/dL [place] Interpretation and review of laboratory results Abnormal [place] Glucose [Mass/Vol] 136 mg/dL High 65 - 105 mg/dL [place] Interpretation and review of laboratory results Abnormal [place] RHEUMATOID FACTORon 04-20-20 19 Rheumatoid Factor <10 <14 IU/mL [place] Sedimentation Rateon 019 Sed Rate 12 mm 0 - 20 mm [place] APTTon 04-19-2019 aPTT Coag (Bld) [Time] 25.2 s [place] Basic Metabolic Panelon Anion gap [Moles/Vol] 17 mmol/L 9 - 17 mmol/L [place] Bun/Cre Ratio 17 [place] Calcium [Mass/Vol] 9.2 mg/dL 8.6 - 10. 4 mg/dL [place] Chloride [Moles/Vol] 102 mmol/L 98 - 10 7 mmol/L [place] CO2 [Moles/Vol] 22 mmol/L 20 - 31 mmol/L [place] Creatinine [Mass/Vol] 0.59 mg/dL 0.5 - 0.9 mg/dL [place] GFR >60 >60 mL/min [place] GFR Non- >60 >60 mL/min [place] Glucose [Mass/Vol] 115 mg/dL High 70 - 99 mg/dL [place] Interpretation and review of laboratory results Abnormal [place] Potassium [Moles/Vol] 3.3 mmol/L Low 3.7 - 5.3 mmol/L [place] Sodium [Moles/Vol] 141 mmol/L 135 - 144 mmol/L [place] Urea nitrogen [Mass/Vol] 10 mg/dL 6 - 20 mg/dL [place] Brain Natriuretic Peptideon 04-19-2019 Natriuretic peptide B (Bld) [Mass/Vol] Pro-BNP Reference Range: [place], [place] Comment on above: Rule Out: <300 [place] Zone: Age <50 300-450 Age 50-75 300-900 Age >75 300-1800 Usually represents mild to moderate HF but other cardiopulmonary causes cannot be ruled out. Rule In: Age <50 >450 Age 50-75 >900 Age >75 >1800 Natriuretic peptide B (Bld) [Mass/Vol] 57 pg/mL <300 [place], [place] Comment on above: Pro-BNP results alirio ot be compared to BNP results. C-REACTIVE PROTEINon 019 CRP [Mass/Vol] 4.9 mg/L 0 - 5 mg/L [place], [place] CBCon 04-19-2019 Erythrocyte distribution width (RBC) [Ratio] 11.9 % 11.8 - 14.4 % [place] Hematocrit (Bld) [Volume fraction] 35.3 % Low 36.3 - 47.1 % [place] Hemoglobin (Bld) [Mass/Vol] 12.3 g/dL 11.9 - 15.1 g/dL [place] Interpretation and review of laboratory results Abnormal [place] MCH (RBC) [Entitic mass] 30.8 pg 25.2 - 33.5 pg [place] MCHC (RBC) [Mass/Vol] 34.8 g/dL 28.4 - 34.8 g/dL [place] MCV (RBC) [Entitic vol] 88.5 fL 82.6 - 102.9 fL [place] Platelet mean volume (Bld) [Entitic vol] 10.0 fL 8.1 - 13.5 fL [place] Platelets (Bld) [#/Vol] 261 10*3/uL [place] RBC (Bld) [#/Vol] 3.99 10*6/uL 3.95 - 5.11 m/uL [place] WBC (Bld) [#/Vol] 0.0 10*3/uL 0.0 per 100 WBC [place] WBC (Bld) [#/Vol] 7.9 10*3/uL [place] CBC Auto Differentialon Basophils (Bld) [#/Vol] 0.03 10*3/uL [place] Basophils/100 WBC (Bld) 0 % 0 - 2 % [place] Differential Type NOT REPORTED [place] Eosinophils (Bld) [#/Vol] 10*3/uL [place] Eosinophils/100 WBC (Bld) 0 % Low 1 - 4 % [place] Erythrocyte distribution width (RBC) [Ratio] 11.9 % 11.8 - 14.4 % [place] Hematocrit (Bld) [Volume fraction] 37.4 % 36.3 - 47.1 % [place] Hemoglobin (Bld) [Mass/Vol] 13.0 g/dL 11.9 - 15.1 g/dL [place] Immature granulocytes (Bld) [#/Vol] 1 % High 0 [place] Immature granulocytes (Bld) [#/Vol] 0.06 10*3/uL [place] Interpretation and review of laboratory results Abnormal [place] Lymphocytes (Bld) [#/Vol] 1.00 10*3/uL Low [place] Lymphocytes/100 WBC (Bld) 11 % Low 24 - 43 % [place] MCH (RBC) [Entitic mass] 30.2 pg 25.2 - 33.5 pg [place] MCHC (RBC) [Mass/Vol] 34.8 g/dL 28.4 - 34.8 g/dL [place] MCV (RBC) [Entitic vol] 86.8 fL 82.6 - 102.9 fL [place] Monocytes (Bld) [#/Vol] 0.11 10*3/uL [place] Monocytes/100 WBC (Bld) 1 % Low 3 - 12 % [place] Platelet mean volume (Bld) [Entitic vol] 10.2 fL 8.1 - 13.5 fL [place] Platelets (Bld) [#/Vol] NOT REPORTED [place] Platelets (Bld) [#/Vol] 285 10*3/uL [place] RBC (Bld) [#/Vol] 4.31 10*6/uL 3.95 - 5.11 m/uL [place] RBC morphology finding Nom (Bld) NOT REPORTED [place] Segmented neutrophils/100 WBC (Bld) 87 % High 36 - 65 % [place] Segs Absolute 7.79 [facility] [place] WBC (Bld) [#/Vol] 9.0 10*3/uL [place] WBC (Bld) [#/Vol] 0.0 10*3/uL 0.0 per 100 WBC [place] WBC Morphology NOT REPORTED [place] CT Head WO Contraston 2018 [place], [place] Incoming Radiant Results From [employer] - 04/19/2019 1:52 PM EDT EXAMINATION: CT [...] soft tissues. IMPRESSION: No acute intracranial abnormality. [place] No acute intracrania l abnormality. [place] EXAMINATION: CT OF T SY HEAD WITHOUT CONTRAST 04/19/2019 1:43 pm TECHNIQUE: [...] of the visualized skull or soft tissues. [facility], [place] CTA HEAD NECK W CONTRASTon 1 [place], [facility], [place] Incoming Radiant Results From [employer]Leaky - 04/19/2019 3:48 PM EDT EXAMINATION: CTA [...] occlusion visualized within the head or neck. [place] Mild beading of both cervical ICAs which may reflect FMD or arteritis. No flow limiting stenosis or large vessel occlusion visualized within the head or neck. [place], [place] EXAMINATION: CTA OF THE HEAD AND [...] See separately dictated noncontrast head CT report. [place], [place] CardiacOrdered By: Ena rock on 04-19-2019 Natriuretic peptide B (Bld) [Mass/Vol] 57 pg/mL (<300 ) [facility] Work Phone: Comment on above: Note: Pro-BNP result s cannot be compared to BNP results.Responsible Observer: CET ONE AUTOFILE ([id number]) [facility]acon 04-19-2019 Natriuretic peptide B (Bld) [Mass/Vol] Pro-BNP Reference Range: [facility] Work Phone: Comment on above: Note: Rule Out: <300 [place] Zone:Age <50 300-450Age 50-75 300-900Age >75 300-1800Usually represents mild to moderate HF but other cardiopulmonary causes cannotbe ruled out.Rule In:Age <50 >450Age 50-75 >900Age >75 >1800Responsible Observer: WILDER ANGELA AUTOFILE ([id number]) Troponin I.cardiac [Mass/Vol] See Note [facility] Work Phone: Comment on above: Note: Reference Rang e:<0.03 Within reference range.0.03-0.09 Possible myocardial damage.Repeat at appropriate intervals to rule out chronic elevation.>= 0.10 Indicative of myocardial damage.Patients with high levels of Biotin oral intake (i.e >5mg/day) may have falselydecreased Troponin T levels. Samples collected within 8 hours of biotin intakemay require additional information for diagnosis.Responsible Observer: CET ONE AUTOFILE ([id number]) Troponin T.cardiac [Mass/Vol] <0.03 ng/mL (<0.03) [facility] Work Phone: Comment on above: Note: Troponin T res ults cannot be compared to Troponin-I results.Responsible Observer: WILDER ONE AUTOFILE ([id number]) Comprehensive Metabolic Pane misti 04-19-2019 Albumin [Mass/Vol] 4.4 g/dL 3.5 - 5.2 g/dL [place] Albumin/Globulin [Mass ratio] 1.5 {ratio} [place] ALP [Catalytic activity/Vol] 99 U/L 35 - 104 U/L [place] ALT [Catalytic activity/Vol] 43 U/L High 5 - 33 U/L [place] Anion gap [Moles/Vol] 13 mmol/L 9 - 17 mmol/L [place] AST [Catalytic activity/Vol] 29 U/L <32 [place] Bilirubin Ql (U) 0.44 mg/dL 0.3 - 1.2 mg/dL [place] Bun/Cre Ratio NOT REPORTED [facility] [place] [place] Calcium [Mass/Vol] 9.1 mg/dL 8.6 - 10. 4 mg/dL [place] Chloride [Moles/Vol] 102 mmol/L 98 - 10 7 mmol/L [place] CO2 [Moles/Vol] 22 mmol/L 20 - 31 mmol/L [place] Creatinine [Mass/Vol] 0.53 mg/dL 0.5 - 0.9 mg/dL [place] GFR >60 >60 mL/min [place] GFR Non- >60 >60 mL/min [place] GFR/1.73 sq M predicted among non-blacks MDRD (S/P/Bld) [Vol rate/Area] [place] Comment on above: Average GFR for 40-4 9 years old: 99 mL/min/1.73sq m Chronic Kidney Disease: <60 mL/min/1.73sq m Kidney failure: <15 mL/min/1.73sq m eGFR calculated using average adult body mass. Additional eGFR calculator available at: http://www.Hellotravel/multiple_crcl_2012.htm GFR/1.73 sq M predicted among non-blacks MDRD (S/P/Bld) [Vol rate/Area] NOT REPORTED [place] Glucose [Mass/Vol] 144 mg/dL High 70 - 99 mg/dL [place] Interpretation and review of laboratory results Abnormal [place] Potassium [Moles/Vol] 3.5 mmol/L Low 3.7 - 5.3 mmol/L [place] Protein [Mass/Vol] 7.3 g/dL 6.4 - 8.3 g/dL [place] Sodium [Moles/Vol] 137 mmol/L 135 - 144 mmol/L [place] Urea nitrogen [Mass/Vol] 9 mg/dL 6 - 20 mg/dL [place] HCG Qualitative, Serumon hCG Qual Negative NEGATIVE [place], [place] Comment on above: Specimens with hCG l evels near the threshold of the test (25 mIU/mL) may give a negative or indeterminate result. In such cases, another test should be performed with a new specimen in 48-72 hours. If early is suspected clinically in this setting, correlation with quantitative serum b-hCG level is suggested. [employer] has confirmed the use of plasma for this test. This has not been cleared or approved by the U.S. Food and Drug Administration. The FDA has determined that such clearance is not necessary. HematologyOrdered By: Ean Fung on 04-19-2019 aPTT Coag (Bld) [Time] 25.2 s (23.2 -34.4 ) [facility] Work Phone: Comment on above: Note: Responsible Ob linux server administrator: CAONEFIVE AUTOFILE ([id number]) Hematocrit (Bld) [Volume fraction] 35.3 % Low (36.3-47.1 ) [facility] Work Phone: Comment on above: Note: Responsible Ob linux server administrator: XNT AUTOFILE ([id number]) Hemoglobin (Bld) [Mass/Vol] 12.3 g/dL (11.9-15.1 ) [facility] Work Phone: Comment on above: Note: Responsible Ob linux server administrator: XNT AUTOFILE ([id number]) INR Coag (PPP) [Relative time] 1.0 {INR} (0.9-1.2 ) [facility] Work Phone: Comment on above: Note: Responsible Ob linux server administrator: CAONEFIVE AUTOFILE ([id number]) MCH (RBC) [Entitic mass] 30.8 pg (25.2-33.5 ) [facility] Work Phone: Comment on above: Note: Responsible Ob linux server administrator: XNT AUTOFILE ([id number]) MCV (RBC) [Entitic vol] 88.5 fL (82. 6-102. 9 ) [facility] Work Phone: Comment on above: Note: Responsible Ob linux server administrator: XNT AUTOFILE ([id number]) Platelets (Bld) [#/Vol] 261 10*3/uL (138-453 ) [facility] Work Phone: Comment on above: Note: Responsible Ob linux server administrator: XNT AUTOFILE ([id number]) PT Coag (PPP) [Time] 10.3 s (9.7-12 .2 ) [facility] Work Phone: Comment on above: Note: Responsible Ob linux server administrator: CAONEFIVE AUTOFILE ([id number]) RBC (Bld) [#/Vol] 3.99 10*6/uL (3.95-5.11 ) [facility] Work Phone: Comment on above: Note: Responsible Ob linux server administrator: XNT AUTOFILE ([id number]) WBC (Bld) [#/Vol] 7.9 10*3/uL (3.5-11.3 ) [facility] Work Phone: Comment on above: Note: Responsible Ob linux server administrator: XNT AUTOFILE ([id number]) Hematologyon 04-19-2019 WBC (Bld) [#/Vol] 0.0 per_100_WBC (0.0) [facility] Work Phone: Comment on above: Note: Responsible Ob linux server administrator: XNT AUTOFILE ([id number]) Magnesiumon 04-19-2019 Magnesium [Mass/Vol] 2.0 mg/dL 1.6 - 2 .6 mg/dL [place] Metabolic Panelon 04-19-2019 GFR/1.73 sq M predicted among non-blacks MDRD (S/P/Bld) [Vol rate/Area] [place] Comment on above: Average GFR for 40-4 9 years old: 99 mL/min/1.73sq m Chronic Kidney Disease: <60 mL/min/1.73sq m Kidney failure: <15 mL/min/1.73sq m eGFR calculated using average adult body mass. Additional eGFR calculator available at: http://www.CloudX.Adocia/multiple_crcl_2012.htm Stage 1: Some kidney damage normal GFR Stage 2: Mild kidney damage GFR 60-89 Stage 3: Moderate kidney damage GFR 30-59 Stage 4: Severe kidney damage GFR 15-29 Stage 5: Severe kidney damage GFR <15 ESRD - chronic treatment by dialysis or transplant Metabolic PanelOrdered By: Kevin Fung on 04-19-2019 Anion gap [Moles/Vol] 17 mmol/L (9-17 ) [facility] Work Phone: Comment on above: Note: Responsible Ob linux server administrator: CET ONE AUTOFILE ([id number]) Calcium [Mass/Vol] 9.2 mg/dL (8.6-10.4 ) [facility] Work Phone: Comment on above: Note: Responsible Ob linux server administrator: CET ONE AUTOFILE ([id number]) Chloride [Moles/Vol] 102 mmol/L (98-107 ) [facility] Work Phone: Comment on above: Note: Responsible Ob linux server administrator: CET ONE AUTOFILE ([id number]) CO2 [Moles/Vol] 22 mmol/L (20-31 ) [facility] Work Phone: Comment on above: Note: Responsible Ob linux server administrator: CET ONE AUTOFILE ([id number]) Creatinine [Mass/Vol] 0.59 mg/dL (0.50- 0.90 ) [facility] Work Phone: Comment on above: Note: Responsible Ob linux server administrator: CET ONE AUTOFILE ([id number]) Glucose [Mass/Vol] 115 mg/dL High (70-99 ) [facility] Work Phone: Comment on above: Note: Responsible Ob linux server administrator: CET ONE AUTOFILE ([id number]) Magnesium [Mass/Vol] 2.0 mg/dL (1.6-2.6 ) [facility] Work Phone: Comment on above: Note: Responsible Ob linux server administrator: CET ONE AUTOFILE ([id number]) Potassium [Moles/Vol] 3.3 mmol/L Low (3.7-5.3 ) [facility] Work Phone: Comment on above: Note: Responsible Ob linux server administrator: CET ONE AUTOFILE ([id number]) Sodium [Moles/Vol] 141 mmol/L (135-144 ) [facility] Work Phone: Comment on above: Note: Responsible Ob linux server administrator: CET ONE AUTOFILE ([id number]) Urea nitrogen [Mass/Vol] 10 mg/dL (6-20 ) [facility] Work Phone: Comment on above: Note: Responsible Ob linux server administrator: CET ONE AUTOFILE ([id number]) No Panel InformationOrdered By: Ena Fung on 04-19-2019 BNP Interpretation Pro-BNP Reference Range: [facility] Work Phone: Comment on above: Note: Rule Out: <300 [place] Zone:Age <50 300-450Age 50-75 300-900Age >75 300-1800Usually represents mild to moderate HF but other cardiopulmonary causes cannotbe ruled out.Rule In:Age <50 >450Age 50-75 >900Age >75 >1800Responsible Observer: CET ONE AUTOFILE ([id number]) NRBC Automated 0.0 per_100_WBC (0.0 ) [facility] Work Phone: Comment on above: Note: Responsible Ob linux server administrator: XNT AUTOFILE ([id number]) Troponin Interp. See Note [facility] Work Phone: Comment on above: Note: Reference Rang e:<0.03 Within reference range.0.03-0.09 Possible myocardial damage.Repeat at appropriate intervals to rule out chronic elevation.>= 0.10 Indicative of myocardial damage.Patients with high levels of Biotin oral intake (i.e >5mg/day) may have falselydecreased Troponin T levels. Samples collected within 8 hours of biotin intakemay require additional information for diagnosis.Responsible Observer: CET ONE AUTOFILE ([id number]) Troponin T <0.03 ng/mL (<0.03 ) [facility] Work Phone: Comment on above: Note: Troponin T res ults cannot be compared to Troponin-I results.Responsible Observer: CET ONE AUTOFILE ([id number]) OtherOrdered By: Ena bee on 04-19-2019 (cont.) See Note [facility] Work Phone: Comment on above: Note: Average GFR fo r 40-49 years old:99 mL/min/1.73sq mChronic Kidney Disease:<60 mL/min/1.73sq mKidney failure:<15 mL/min/1.73sq meGFR calculated using average adult body mass. Additional eGFR calculatoravailable at:http://www.Hellotravel/multiple_crcl_2012.htmResponsible Observer: CET ONE AUTOFILE ([id number]) BUN/CRE Ratio 17 (9-20 ) [facility] Work Phone: Comment on above: Note: Responsible Ob linux server administrator: CET ONE AUTOFILE ([id number]) Erythrocyte distribution width (RBC) [Ratio] 11.9 % (11.8-14.4 ) [facility] Work Phone: Comment on above: Note: Responsible Ob linux server administrator: XNT AUTOFILE ([id number]) GFR, Amer >60 mL/min (>60 ) [facility] Work Phone: Comment on above: Note: Responsible Ob linux server administrator: CET ONE AUTOFILE ([id number]) GFR,non Amer >60 mL/min (>60 ) [facility] Work Phone: Comment on above: Note: Responsible Ob linux server administrator: CET ONE AUTOFILE ([id number]) MCHC (RBC) [Mass/Vol] 34.8 g/dL (28.4- 34.8 ) [facility] Work Phone: Comment on above: Note: Responsible Ob linux server administrator: XNT AUTOFILE ([id number]) Performing Lab: see note [facility] Work Phone: Comment on above: Note: [facility] makayla [address] [place] [id number] [phone] [place] [id number] Note: [address] [place] [id number] Platelet mean volume (Bld) [Entitic vol] 10.0 fL (8.1-13.5 ) [facility] Work Phone: Comment on above: Note: Responsible Ob linux server administrator: XNT AUTOFILE ([id number]) Reported Physicians See Note [facility] Work Phone: Comment on above: Note: Reported Physi cians:Ordering: Erin DOWending: Ena Wray Staging: See Note [facility] Work Phone: Comment on above: Note: Stage 1: Some kidney damage normal GFRStage 2: Mild kidney damage GFR 60-89Stage 3: Moderate kidney damage GFR 30-59Stage 4: Severe kidney damage GFR 15-29Stage 5: Severe kidney damage GFR <15ESRD - chronic treatment by dialysis or transplantResponsible Observer: CET ONE AUTOFILE ([id number]) Troponin, High Sens NOT REPORTED ng/L (0-14 ) [facility] Work Phone: Protime-INRon 04-19-2019 INR Coag (PPP) [Relative time] 1.0 {INR} [place], [place] PT Coag (PPP) [Time] 10.3 s [place], [place] Sedimentation Rateon 019 Sed Rate 18 mm 0 - 20 mm [place] Troponinon 04-19-2019 Troponin I.cardiac [Mass/Vol] [place] Comment on above: Reference Range: <0.03 [...] diagnosis. Troponin T.cardiac [Mass/Vol] ug/L <0.03 ng/mL [place] Comment on above: Troponin T results c annot be compared to Troponin-I results. Troponin, High Sensitivity NOT REPORTED 0 - 14 ng/L [place] Troponin I.cardiac [Mass/Vol] [place] Comment on above: Reference Range: <0.03 [...] diagnosis. Troponin T.cardiac [Mass/Vol] ug/L <0.03 ng/mL [facility] [place] Comment on above: Troponin T results c annot be compared to Troponin-I results. Troponin, High Sensitivity NOT REPORTED 0 - 14 ng/L [place] XR CHEST PORTABLEon 04-19-20 EXAMINATION: ONE XRA Y VIEW OF THE CHEST 04/19/2019 1:39 pm COMPARISON: Chest 02/06/2019 HISTORY: ORDERING SYSTEM PROVIDED HISTORY: chest pain TECHNOLOGIST PROVIDED HISTORY: chest pain FINDINGS: The cardiomediastinal and hilar silhouettes appear unremarkable. The lungs appear clear. No pleural effusion evident. No pneumothorax is seen. No acute osseous abnormality is identified. [place], [place], [facility] Incoming Radiant Results From [employer] - 04/19/2019 1:52 PM EDT EXAMINATION: ONE [...] No radiographic evidence of acute cardiopulmonary disease. [place], [place] No radiographic evid ence of acute cardiopulmonary disease. [place] [facility] 01-21-2018 Cholesterol mass conc 248 mg/dL Invalid Interpretation Code <200 [facility] Cholesterol 248 mg/dL Invalid Interpretation Code <200 [facility] Metabolic Panelon 01-21-2018 Anion gap 3 molar conc 10 mmol/L Invalid Interpretation Code 9-17 [facility] Calcium mass conc 9.20 mg/dL Invalid Interpretation Code 8.6-10.4 [facility] Chloride molar conc 97 mmol/L Invalid Interpretation Code 98-107 [facility] CO2 molar conc 29 mmol/L Invalid Interpretation Code 20-31 [facility] Creatinine mass conc 0.51 mg/dL Invalid Interpretation Code 0.50-0.90 [facility] Glucose mass conc 120 mg/dL Invalid Interpretation Code 70-99 [facility] Potassium molar conc 4.0 mmol/L Invalid Interpretation Code 3.7-5.3 [facility] Sodium molar conc 136 mmol/L Invalid Interpretation Code 135-144 [facility] Urea nitrogen mass conc 11.0 mg/dL Invalid Interpretation Code 6-20 [facility] Anion gap 10 mmol/L Invalid Interpretation Code 9-17 [facility] BUN (urea nitrogen) 11 mg/dL Invalid Interpretation Code 6-20 [facility] Calcium 9.2 mg/dL Invalid Interpretation Code 8.6-10.4 [facility] Calcium mass conc 9.20 mg/dL Invalid Interpretation Code 8.6-10.4 [facility] Chloride 97 mmol/L Invalid Interpretation Code 98-107 [facility] CO2 29 mmol/L Invalid Interpretation Code 20-31 [facility] Creatinine 0.51 mg/dL Invalid Interpretation Code 0.50-0.90 [facility] Glucose mass conc 120 mg/dL Invalid Interpretation Code 70-99 [facility] Potassium molar conc 4.0 mmol/L Invalid Interpretation Code 3.7-5.3 [facility] Sodium 136 mmol/L Invalid Interpretation Code 135-144 [facility] Urea nitrogen mass conc 11.0 mg/dL Invalid Interpretation Code 6-20 [facility] Otheron 01-21-2018 Cholesterol.total/Audelia sterol in HDL mass ratio 7.3 {ratio} Invalid Interpretation Code <5 [facility] Urea nitrogen/Creatinine mass ratio (Bld) 22 Invalid Interpretation Code 9-20 [facility] NOT REPORTED Invalid Interpretation Code 1-30 [facility] >60 Invalid Interpretation Code >60 [facility] 106 Invalid Interpretation Code <100 [facility] 34 Invalid Interpretation Code >40 [facility] 708 Invalid Interpretation Code <150 [facility] Cholesterol to HDL Ratio 7.3 {ratio} Invalid Interpretation Code <5 [facility] Urea nitrogen/Creatinine mass ratio (Bld) 22 Invalid Interpretation Code 9-20 [facility] NOT REPORTED Invalid Interpretation Code 1-30 [facility] >60 Invalid Interpretation Code >60 [facility] 22 Invalid Interpretation Code 9-20 [facility] 34 Invalid Interpretation Code >40 [facility] 106 Invalid Interpretation Code <100 [facility] 708 Invalid Interpretation Code <150 [facility] Otheron 10-26-2017 2 Invalid Interpretation Code [facility] 2 Invalid Interpretation Code [facility] Metabolic Panelon 10-15-2017 Hemoglobin A1c/Hemoglobin.total mass fraction (Bld) 5.40 % Invalid Interpretation Code < 7 [facility] Hemoglobin A1c/Hemoglobin.total mass fraction (Bld) 5.40 % Invalid Interpretation Code < 7 [facility] Otheron 10-15-2017 0=No Invalid Interpretation Code [facility] 0=N/A Invalid Interpretation Code [facility] 1=Yes Invalid Interpretation Code [facility] 0 Invalid Interpretation Code [facility] 4 Invalid Interpretation Code [facility] Risk Level 2= 4-6 Invalid Interpretation Code [facility] managing chronic illness Invalid Interpretation Code [facility] 2=uncontrolled Invalid Interpretation Code [facility] 1=Controlled Invalid Interpretation Code [facility] managing chronic illness Invalid Interpretation Code [facility] Risk Level 2= 4-6 Invalid Interpretation Code [facility] 4 Invalid Interpretation Code [facility] 0=No Invalid Interpretation Code [facility] 0 Invalid Interpretation Code [facility] 1=Yes Invalid Interpretation Code [facility] 0=N/A Invalid Interpretation Code [facility] 2=uncontrolled Invalid Interpretation Code [facility] 1=Controlled Invalid Interpretation Code [facility] Thyroidon 10-05-2017 Thyroid stimulating hormone (TSH) 1.570 uIU/mL Invalid Interpretation Code 0.40-4.10 [facility] Thyroxine (T4) free 1.170 ng/dL Invalid Interpretation Code 0.80-1.90 [facility] Otheron 03-23-2017 0=N/A Invalid Interpretation Code [facility] Risk Level 3=7-9 Invalid Interpretation Code [facility] 8 Invalid Interpretation Code [facility] Needs Completed Invalid Interpretation Code [facility] 3=Yes Invalid Interpretation Code [facility] 2=uncontrolled Invalid Interpretation Code [facility] 1=Yes Invalid Interpretation Code [facility] 0=No Invalid Interpretation Code [facility] 0=N/A Invalid Interpretation Code [facility] Risk Level 3=7-9 Invalid Interpretation Code [facility] 8 Invalid Interpretation Code [facility] Needs Completed Invalid Interpretation Code [facility] 3=Yes Invalid Interpretation Code [facility] 2=uncontrolled Invalid Interpretation Code [facility] 1=Yes Invalid Interpretation Code [facility] 0=No Invalid Interpretation Code [facility] Vital Signs Date Time Vital Sign Value Performing Clinician Facility 03-12-2024 12:48-0400 Diastolic blood pressure 70 mm[Hg] Ena Fung 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: [employer] 03-12-2024 12:48-0400 Heart rate 81 /min Ena Fung 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: [employer] 03-12-2024 12:48-0400 Systolic blood pressure 121 mm[Hg] Ena Fung 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: [employer] 03-12-2024 11:47-0400 Body temperature 98.01 [degF] Ena Fung 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: [facility] 03-12-2024 11:47-0400 Respiratory rate 15 /min Ena Fung APRN - [facility] Work Phone: [facility] 03-12-2024 11:47-0400 SaO2% (BldA) [Mass fraction] 96 % Ena Fung APRN - [facility] Work Phone: [facility] 02-08-2024 17:02-0400 Diastolic blood pressure 91 mm[Hg] Ena Fung CNP Work Phone: [facility] Work Phone: 02-08-2024 17:02-0400 Systolic blood pressure 140 mm[Hg] Ena Fung CNP Work Phone: [facility] Work Phone: 02-08-2024 16:53-0400 Body height 162.56 cm Ena Fung CNP Work Phone: [facility] [facility] Work Phone: 02-08-2024 16:53-0400 Body mass index (BMI) [Ratio] 32.8 kg/m2 Ena Fung CNP Work Phone: [facility] Work Phone: 02-08-2024 16:53-0400 Body surface area Derived from formula 1.9 m2 Ena Fung CNP Work Phone: [facility] Work Phone: 02-08-2024 16:53-0400 Body weight 86.64 kg Ena Fung CNP Work Phone: [facility] Work Phone: 02-08-2024 16:53-0400 Diastolic blood pressure 92 mm[Hg] Ena Fung CNP Work Phone: [facility] Work Phone: 02-08-2024 16:53-0400 Heart rate 76 /min Ena Fung CNP Work Phone: [facility] Work Phone: 02-08-2024 16:53-0400 SaO2% (BldA) [Mass fraction] 98 % Ena Fung CNP Work Phone: [facility] Work Phone: 02-08-2024 16:53-0400 Systolic blood pressure 154 mm[Hg] Ena Fung CNP Work Phone: [facility] Work Phone: 01-27-2024 09:02-0400 Diastolic blood pressure 117 mm[Hg] Ena Fung CNP Work Phone: [facility] Work Phone: 01-27-2024 09:02-0400 Systolic blood pressure 148 mm[Hg] Ena Fung CNP Work Phone: [facility] Work Phone: 01-27-2024 08:51-0400 Body height 162.56 cm Ena Fung CNP Work Phone: [facility] Work Phone: 01-27-2024 08:51-0400 Body mass index (BMI) [Ratio] 32.8 kg/m2 Ena Fung CNP Work Phone: [facility] Work Phone: 01-27-2024 08:51-0400 Body surface area Derived from formula 1.9 m2 Ena Fung CNP Work Phone: [facility] Work Phone: 01-27-2024 08:51-0400 Body weight 86.64 kg Ena Fung CNP Work Phone: [facility] Work Phone: 01-27-2024 08:51-0400 Diastolic blood pressure 85 mm[Hg] Ena Fung 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 Work Phone: [facility] Work Phone: 01-27-2024 08:51-0400 Heart rate 85 /min Ena Fung [employer] 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 Work Phone: [facility] Work Phone: 01-27-2024 08:51-0400 SaO2% (BldA) [Mass fraction] 97 % Ena Fung [employer] 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 Work Phone: [facility] Work Phone: 01-27-2024 08:51-0400 Systolic blood pressure 156 mm[Hg] Ena Fung [employer] 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 Work Phone: [facility] Work Phone: 12-23-2023 18:42-0400 Diastolic blood pressure 85 mm[Hg] Jaxson Ferrer MD Work Phone: [employer] 12-23-2023 18:42-0400 Heart rate 92 /min Jaxson Ferrer MD Work Phone: [employer] 12-23-2023 18:42-0400 SaO2% (BldA) [Mass fraction] 95 % Jaxson Ferrer MD Work Phone: [employer] 12-23-2023 18:42-0400 Systolic blood pressure 124 mm[Hg] Jaxson Ferrer MD Work Phone: [employer] 12-23-2023 13:53-0400 Body mass index (BMI) [Ratio] 33.99 kg/m2 Jaxson Ferrer MD Work Phone: [employer] 12-23-2023 13:53-0400 Body temperature 98.4 [degF] Jaxson Ferrer MD Work Phone: [employer] 12-23-2023 13:53-0400 Body weight 89.81 kg Jaxson Ferrer MD Work Phone: [employer] 12-23-2023 13:53-0400 Respiratory rate 18 /min Jaxson Ferrer MD Work Phone: [facility] 09-07-2023 13:56-0500 Body height 162.56 cm Ena Fung CNP Work Phone: [facility] Work Phone: 09-07-2023 13:56-0500 Body mass index (BMI) [Ratio] 33.3 kg/m2 Ena Fung CNP Work Phone: [facility] Work Phone: 09-07-2023 13:56-0500 Body surface area Derived from formula 1.9 m2 Ena Fung CNP Work Phone: [facility] Work Phone: 09-07-2023 13:56-0500 Body temperature 98.4 [degF] Ena Fung CNP Work Phone: [facility] Work Phone: 09-07-2023 13:56-0500 Body weight 88 kg Ena Fung CNP Work Phone: [facility] Work Phone: 09-07-2023 13:56-0500 Diastolic blood pressure 82 mm[Hg] Ena Fung CNP Work Phone: [facility] Work Phone: 09-07-2023 13:56-0500 Heart rate 85 /min Ena Fung CNP Work Phone: [facility] Work Phone: 09-07-2023 13:56-0500 SaO2% (BldA) [Mass fraction] 97 % Ena Fung CNP Work Phone: [facility] Work Phone: 09-07-2023 13:56-0500 Systolic blood pressure 123 mm[Hg] Ena Kenton 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 Work Phone: [facility] Work Phone: 08-20-2023 08:32-0500 Body height 162.56 cm Ena Fung [employer] 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 Work Phone: [facility] Work Phone: 08-20-2023 08:32-0500 Body mass index (BMI) [Ratio] 32.6 kg/m2 Ena Fung [employer] 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 Work Phone: [facility] Work Phone: 08-20-2023 08:32-0500 Body surface area Derived from formula 1.9 m2 Ena Fung [employer] 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 Work Phone: [facility] Work Phone: 08-20-2023 08:32-0500 Body weight 86.18 kg Ena Fung [employer] 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 Work Phone: [facility] Work Phone: 08-20-2023 08:32-0500 Diastolic blood pressure 79 mm[Hg] Ena Fung [employer] 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 Work Phone: [facility] Work Phone: 08-20-2023 08:32-0500 Heart rate 106 /min Ena Fung [employer] 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 Work Phone: [facility] Work Phone: 08-20-2023 08:32-0500 SaO2% (BldA) [Mass fraction] 97 % Ena Fung CNP Work Phone: [facility] Work Phone: 08-20-2023 08:32-0500 Systolic blood pressure 138 mm[Hg] Ena Kenton [employer] 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 Work Phone: [facility] Work Phone: 08-12-2023 17:00-0500 Diastolic blood pressure 84 mm[Hg] Ena Fung 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: [facility] [employer] 08-12-2023 17:00-0500 Heart rate 80 /min Ena Oviedo CNP Work Phone: [facility] [employer] 08-12-2023 17:00-0500 Respiratory rate 12 /min Ena Oviedo CNP Work Phone: [facility] [employer] 08-12-2023 17:00-0500 SaO2% (BldA) [Mass fraction] 100 % Ena Oviedo CNP Work Phone: [facility] [employer] 08-12-2023 17:00-0500 Systolic blood pressure 106 mm[Hg] Ena Oviedo CNP Work Phone: [facility] [employer] 08-12-2023 15:24-0500 Body height 162.6 cm Ena Oviedo CNP Work Phone: [facility] [employer] 08-12-2023 15:24-0500 Body mass index (BMI) [Ratio] 33.99 kg/m2 Ena Oviedo [employer] 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 Work Phone: [facility] [employer] 08-12-2023 15:24-0500 Body temperature 98.1 [degF] Ena Oviedo CNP Work Phone: [facility] [employer] 08-12-2023 15:24-0500 Body weight 89.81 kg Ena Oviedo [employer] 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 Work Phone: [facility] [employer] 08-04-2023 14:22-0500 Body height 162.56 cm Ena Fung CNP Work Phone: [facility] Work Phone: 08-04-2023 14:22-0500 Body mass index (BMI) [Ratio] 33.6 kg/m2 Ena Fung CNP Work Phone: [facility] Work Phone: 08-04-2023 14:22-0500 Body surface area Derived from formula 1.9 m2 Ena Fung CNP Work Phone: [facility] Work Phone: 08-04-2023 14:22-0500 Body weight 88.91 kg Ena Fung CNP Work Phone: [facility] Work Phone: 08-04-2023 14:22-0500 Diastolic blood pressure 87 mm[Hg] Ena Fung CNP Work Phone: [facility] Work Phone: 08-04-2023 14:22-0500 Heart rate 90 /min Ena Fung CNP Work Phone: [facility] Work Phone: 08-04-2023 14:22-0500 SaO2% (BldA) [Mass fraction] 97 % Ena Fung CNP Work Phone: [facility] Work Phone: 08-04-2023 14:22-0500 Systolic blood pressure 133 mm[Hg] Ena Fung CNP Work Phone: [facility] Work Phone: 07-20-2023 10:45-0500 Body mass index (BMI) [Ratio] 32.61 kg/m2 Lisa Blackman DO Work Phone: [employer] 07-20-2023 10:45-0500 Body temperature 100.8 [degF] Lisa Blackman DO Work Phone: [employer] 07-20-2023 10:45-0500 Body weight 86.18 kg Lisa Blackman DO Work Phone: [employer] 07-20-2023 10:45-0500 Diastolic blood pressure 86 mm[Hg] Lisa Blackman DO Work Phone: [employer] 01-02-2024 10:45-0500 Heart rate 100 /min Lisa Blackman DO Work Phone: [facility] [employer] [facility] [employer] 07-20-2023 10:45-0500 Respiratory rate 20 /min Lisa Blackman DO Work Phone: [facility] [employer] [facility] 07-20-2023 10:45-0500 SaO2% (BldA) [Mass fraction] 96 % Lisa Blackman DO Work Phone: [facility] [employer] [facility] [employer] 07-20-2023 10:45-0500 Systolic blood pressure 153 mm[Hg] Lisa Blackman DO [facility] [employer] 03-11-2023 12:15-0400 Diastolic blood pressure 54 mm[Hg] [facility] 03 [facility] [employer] 03-11-2023 12:15-0400 Heart rate 88 /min [facility] 03 [facility] [employer] 03-11-2023 12:15-0400 Respiratory rate 18 /min [facility] 03 [facility] [employer] [facility] [employer] 03-11-2023 12:15-0400 Systolic blood pressure 100 mm[Hg] [facility] [address] [facility] [facility] [employer] 03-05-2023 15:35-0400 Body temperature 100 [degF] [facility] Work Phone: [facility] [employer] 03-05-2023 15:35-0400 Diastolic blood pressure 96 mm[Hg] Ena Fung [facility] Work Phone: [facility] [employer] 03-05-2023 15:35-0400 Heart rate 99 /min Ena Fung [facility] Work Phone: [facility] [employer] 03-05-2023 15:35-0400 Respiratory rate 18 /min Ena Fung [facility] Work Phone: [facility] [employer] 03-05-2023 15:35-0400 SaO2% (BldA) [Mass fraction] 99 % Ena Fung [facility] Work Phone: [employer] 08-18-2023 15:35-0400 Systolic blood pressure 145 mm[Hg] Ena Oviedo CNP Work Phone: [employer] 02-22-2023 16:16-0400 Diastolic blood pressure 46 mm[Hg] Ena Oviedo CNP Work Phone: [employer] 02-22-2023 16:16-0400 Heart rate 78 /min Ena Oviedo CNP Work Phone: [employer] 02-22-2023 16:16-0400 SaO2% (BldA) [Mass fraction] 95 % Ena Oviedo CNP Work Phone: [employer] 02-22-2023 16:16-0400 Systolic blood pressure 116 mm[Hg] Ena Oviedo CNP Work Phone: [employer] 02-22-2023 13:40-0400 Body height 162.6 cm Ena Oviedo CNP Work Phone: [employer] 02-22-2023 13:40-0400 Body mass index (BMI) [Ratio] 33.47 kg/m2 Ena Oviedo CNP Work Phone: [employer] 02-22-2023 13:40-0400 Body temperature 98.1 [degF] Ena Oviedo CNP Work Phone: [employer] 02-22-2023 13:40-0400 Body weight 88.45 kg Ena Oviedo CNP Work Phone: [employer] 02-22-2023 13:40-0400 Respiratory rate 16 /min Ena Oviedo CNP Work Phone: [employer] 02-01-2023 13:54-0400 Body height 162.56 cm Ena Fung CNP Work Phone: [facility] Work Phone: 02-01-2023 13:54-0400 Body mass index (BMI) [Ratio] 34.2 kg/m2 Ena Fung CNP Work Phone: [facility] Work Phone: 02-01-2023 13:54-0400 Body surface area Derived from formula 2 m2 Ena Fung CNP Work Phone: [facility] Work Phone: 02-01-2023 13:54-0400 Body temperature 98.3 [degF] Ena Fung CNP Work Phone: [facility] Work Phone: 02-01-2023 13:54-0400 Body weight 90.27 kg Ena Fung CNP Work Phone: [facility] Work Phone: 02-01-2023 13:54-0400 Diastolic blood pressure 84 mm[Hg] Ena Fung CNP Work Phone: [facility] Work Phone: 02-01-2023 13:54-0400 Heart rate 72 /min Ena Fung CNP Work Phone: [facility] Work Phone: 02-01-2023 13:54-0400 SaO2% (BldA) [Mass fraction] 96 % Ena Fung CNP Work Phone: [facility] Work Phone: 02-01-2023 13:54-0400 Systolic blood pressure 121 mm[Hg] Ena Fung [employer] 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 Work Phone: [facility] Work Phone: 12-21-2022 11:10-0400 Diastolic blood pressure 75 mm[Hg] Ena Fung 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: [facility] 12-21-2022 11:10-0400 Systolic blood pressure 113 mm[Hg] Ena Oviedo CNP Work Phone: [facility] [employer] 12-21-2022 11:09-0400 Body temperature 97.7 [degF] Ena Oviedo CNP Work Phone: [facility] [employer] 12-21-2022 11:09-0400 Heart rate 68 /min Ena Oviedo CNP Work Phone: [facility] [employer] 12-21-2022 11:09-0400 Respiratory rate 16 /min Ena Oviedo CNP Work Phone: [facility] [employer] 12-21-2022 11:09-0400 SaO2% (BldA) [Mass fraction] 98 % Ena Oviedo CNP Work Phone: [facility] [employer] 12-21-2022 10:34-0400 Body height 162.56 cm Ena Fung CNP Work Phone: [facility] Work Phone: 12-21-2022 10:34-0400 Body mass index (BMI) [Ratio] 33.6 kg/m2 Ena Fung CNP Work Phone: [facility] Work Phone: 12-21-2022 10:34-0400 Body surface area Derived from formula 1.9 m2 Ena Fung CNP Work Phone: [facility] Work Phone: 12-21-2022 10:34-0400 Body temperature 98.3 [degF] Ena Fung CNP Work Phone: [facility] Work Phone: 12-21-2022 10:34-0400 Body weight 88.91 kg Ena Fung CNP Work Phone: [facility] Work Phone: 12-21-2022 10:34-0400 Diastolic blood pressure 66 mm[Hg] Ena Fung CNP Work Phone: [facility] Work Phone: 12-21-2022 10:34-0400 Heart rate 66 /min Ena Fung CNP Work Phone: [facility] Work Phone: 12-21-2022 10:34-0400 SaO2% (BldA) [Mass fraction] 97 % Ena Fung CNP Work Phone: [facility] Work Phone: 12-21-2022 10:34-0400 Systolic blood pressure 110 mm[Hg] Ena Fung CNP Work Phone: [facility] Work Phone: 11-19-2022 11:05-0400 Body height 162.56 cm Ena Fung CNP Work Phone: [facility] Work Phone: 11-19-2022 11:05-0400 Body mass index (BMI) [Ratio] 34.2 kg/m2 Ena Fung CNP Work Phone: [facility] Work Phone: 11-19-2022 11:05-0400 Body surface area Derived from formula 2 m2 Ena Fung CNP Work Phone: [facility] Work Phone: 11-19-2022 11:05-0400 Body temperature 98.8 [degF] Ena Fung CNP Work Phone: [facility] Work Phone: 11-19-2022 11:05-0400 Body weight 90.45 kg Ena Fung CNP Work Phone: [facility] Work Phone: 11-19-2022 11:05-0400 Diastolic blood pressure 79 mm[Hg] Ena Kenton [employer] 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 Work Phone: [facility] Work Phone: 11-19-2022 11:05-0400 Heart rate 93 /min Ena Kenton [employer]HALT 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 Work Phone: [facility] Work Phone: 11-19-2022 11:05-0400 SaO2% (BldA) [Mass fraction] 97 % Ena Kenton ASPHALT 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 Work Phone: [facility] Work Phone: 11-19-2022 11:05-0400 Systolic blood pressure 121 mm[Hg] Ena Kenton [employer]HALT 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 Work Phone: [facility] Work Phone: 08-20-2022 18:00-0500 Diastolic blood pressure 62 mm[Hg] Ronan Rodriguez MD Work Phone: [employer] 08-20-2022 18:00-0500 Heart rate 72 /min Ronan Rodriguez MD Work Phone: [employer] 08-20-2022 18:00-0500 Respiratory rate 24 /min Ronan Rodriguez MD Work Phone: [employer] 08-20-2022 18:00-0500 SaO2% (BldA) [Mass fraction] 98 % Ronan Rodriguez MD Work Phone: [employer] 08-20-2022 18:00-0500 Systolic blood pressure 100 mm[Hg] Ronan Rodriguez MD Work Phone: [employer] 08-20-2022 15:06-0500 Body temperature 98.29 [degF] Ronan Rodriguez MD Work Phone: [employer] 08-20-2022 14:04-0500 Diastolic blood pressure 58 mm[Hg] Ena Fung 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: [employer] 08-20-2022 14:04-0500 Heart rate 62 /min Ena Oviedo [facility] Work Phone: [employer] [facility] 08-20-2022 14:04-0500 Respiratory rate 15 /min Ena Fung APRN [facility] Work Phone: [facility] 08-20-2022 14:04-0500 SaO2% (BldA) [Mass fraction] 96 % Ena Fung APRN [facility] Work Phone: [facility] 08-20-2022 14:04-0500 Systolic blood pressure 97 mm[Hg] Ena Fung APRN [facility] Work Phone: [facility] 08-20-2022 12:15-0500 Body temperature 98.2 [degF] Ena Fung APRN [facility] Work Phone: [employer] [facility] 07-28-2022 10:57-0500 Diastolic blood pressure 63 mm[Hg] Jaxson Ferrer MD Work Phone: [employer] [facility] 07-28-2022 10:57-0500 SaO2% (BldA) [Mass fraction] 99 % Jaxson Ferrer MD Work Phone: [employer] [facility] 07-28-2022 10:57-0500 Systolic blood pressure 131 mm[Hg] Jaxson Ferrer MD Work Phone: [employer] [facility] 07-28-2022 08:45-0500 Respiratory rate 18 /min Jaxson Ferrer MD Work Phone: [employer] [facility] 07-28-2022 08:43-0500 Body temperature 98.01 [degF] Jaxson Ferrer MD Work Phone: [employer] [facility] 07-28-2022 08:43-0500 Heart rate 68 /min Jaxson Ferrer MD Work Phone: [employer] [facility] 05-01-2022 18:56-0400 Respiratory rate 15 /min Thad Berrios MD [facility] [employer] [facility] [employer] 05-01-2022 18:30-0400 Body temperature 98.4 [degF] Thad [facility]rios [facility] 05-01-2022 18:30-0400 Diastolic blood pressure 41 mm[Hg] Thad Berrios MD [facility] 05-01-2022 18:30-0400 Heart rate 74 /min Thad Berrios [facility] 05-01-2022 18:30-0400 SaO2% (BldA) [Mass fraction] 97 % Thad Berrios MD [facility] 05-01-2022 18:30-0400 Systolic blood pressure 108 mm[Hg] Thad Berrios MD [facility] 04-13-2022 11:37-0400 Body height 162.56 cm Ena Kenton CNP Work Phone: [facility] Work Phone: 04-13-2022 11:37-0400 Body mass index (BMI) [Ratio] 32.6 kg/m2 Ena Kenton [employer] 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 Work Phone: [facility] Work Phone: 04-13-2022 11:37-0400 Body surface area Derived from formula 1.91 m2 Ena Fung CNP Work Phone: [facility] Work Phone: 04-13-2022 11:37-0400 Body surface area Derived from formula 1.9 m2 Ena Kenton ASPHALT 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 Work Phone: [facility] Work Phone: 04-13-2022 11:37-0400 Body temperature 97.3 [degF] Ena Kenton CNP Work Phone: [facility] Work Phone: 04-13-2022 11:37-0400 Body weight 86.18 kg Ena Kenton [employer]HALT 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 Work Phone: [facility] Work Phone: 04-13-2022 11:37-0400 Diastolic blood pressure 80 mm[Hg] Ena Fung CNP Work Phone: [facility] Work Phone: 04-13-2022 11:37-0400 Heart rate 81 /min Ena Fung CNP Work Phone: [facility] Work Phone: 04-13-2022 11:37-0400 SaO2% (BldA) [Mass fraction] 98 % Ena Fung CNP Work Phone: [facility] Work Phone: 04-13-2022 11:37-0400 Systolic blood pressure 118 mm[Hg] Ena Fung CNP Work Phone: [facility] Work Phone: 01-30-2022 08:13-0400 Body height 162.56 cm Ena Fung CNP Work Phone: [facility] Work Phone: 01-30-2022 08:13-0400 Body mass index (BMI) [Ratio] 32.8 kg/m2 Ena Fung CNP Work Phone: [facility] Work Phone: 01-30-2022 08:13-0400 Body surface area Derived from formula 1.92 m2 Ena Fung CNP Work Phone: [facility] Work Phone: 01-30-2022 08:13-0400 Body surface area Derived from formula 1.9 m2 Ena Fung CNP Work Phone: [facility] Work Phone: 01-30-2022 08:13-0400 Body temperature 97.4 [degF] Ena Fung CNP Work Phone: [facility] Work Phone: 01-30-2022 08:13-0400 Body weight 86.55 kg Ena Fung CNP Work Phone: [facility] Work Phone: 01-30-2022 08:13-0400 Diastolic blood pressure 76 mm[Hg] Ena Fung CNP Work Phone: [facility] Work Phone: 01-30-2022 08:13-0400 Heart rate 81 /min Ena Fung [employer] 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 Work Phone: [facility] Work Phone: 01-30-2022 08:13-0400 SaO2% (BldA) [Mass fraction] 98 % Ena Fung CNP Work Phone: [facility] Work Phone: 01-30-2022 08:13-0400 Systolic blood pressure 120 mm[Hg] Ena Fung [employer] 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 Work 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: [facility] Work Phone: 12-19-2021 17:58-0400 SaO2% (BldA) [Mass fraction] 96 % Santhosh Schwab MD Work Phone: [facility] 12-19-2021 17:53-0400 Diastolic blood pressure 67 mm[Hg] Santhosh Schwab MD Work Phone: [employer] 12-19-2021 17:53-0400 Systolic blood pressure 126 mm[Hg] Santhosh Schwab MD Work Phone: [facility] [employer] 12-19-2021 17:52-0400 Body temperature 98.01 [degF] Santhosh Schwab MD Work Phone: [employer] 12-19-2021 17:52-0400 Heart rate 80 /min Santhosh Schwab MD Work Phone: [facility] [employer] 12-19-2021 17:52-0400 Respiratory rate 18 /min Santhosh Schwab MD Work Phone: [facility] 11-26-2021 11:46-0400 Body height 162.56 cm Ena Fung CNP Work Phone: [facility] Work Phone: 11-26-2021 11:46-0400 Body mass index (BMI) [Ratio] 32.3 kg/m2 Ena Fung CNP Work Phone: [facility] Work Phone: 11-26-2021 11:46-0400 Body surface area Derived from formula 1.91 m2 Ena Fung CNP Work Phone: [facility] [facility] Work Phone: 11-26-2021 11:46-0400 Body surface area Derived from formula 1.9 m2 Ena Fung CNP Work Phone: [facility] Work Phone: 11-26-2021 11:46-0400 Body temperature 97.7 [degF] Ena Fung CNP Work Phone: [facility] Work Phone: 11-26-2021 11:46-0400 Body weight 85.28 kg Ena Fung CNP Work Phone: [facility] Work Phone: 11-26-2021 11:46-0400 Diastolic blood pressure 72 mm[Hg] Ena Fung CNP Work Phone: [facility] Work Phone: 11-26-2021 11:46-0400 Heart rate 73 /min Ena Fung CNP Work Phone: [facility] Work Phone: 11-26-2021 11:46-0400 SaO2% (BldA) [Mass fraction] 96 % Ena Fung CNP Work Phone: [facility] Work Phone: 11-26-2021 11:46-0400 Systolic blood pressure 118 mm[Hg] Ena Fung CNP Work Phone: [facility] Work Phone: 11-21-2021 19:27-0400 Body height 162.6 cm Ena Fung APRN - [employer]HALT 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 Work Phone: [facility] [email or web address] 11-21-2021 19:27-0400 Body mass index (BMI) [Ratio] 32.61 kg/m2 Ena Fung APRN - [employer]HALT 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 Work Phone: [facility] [email or web address] 11-21-2021 19:27-0400 Body temperature 98.01 [degF] Ena Fung APRN - SHAMIR [facility] 11-21-2021 19:27-0400 Body weight 86.18 kg Ena Fung APRN - [employer]HALT 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 Work Phone: [facility] 11-21-2021 19:27-0400 Diastolic blood pressure 71 mm[Hg] Ena Fung APRN - [employer]HALT 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 Work Phone: [facility] 11-21-2021 19:27-0400 Heart rate 86 /min Ena Fung APRN - SHAMIR Work Phone: [facility] 11-21-2021 19:27-0400 Respiratory rate 16 /min Ena Fung APRN - [employer]HALT 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 Work Phone: [facility] 11-21-2021 19:27-0400 SaO2% (BldA) [Mass fraction] 99 % Ena Fung APRN - ASPHALT 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 Work Phone: [facility] 11-21-2021 19:27-0400 Systolic blood pressure 131 mm[Hg] Ena Fung APRN - ASPHALT 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 Work Phone: [facility] 11-06-2021 13:45-0400 Diastolic blood pressure 68 mm[Hg] [facility] 11-06-2021 13:45-0400 Heart rate 57 /min [address] 11-06-2021 13:45-0400 Respiratory rate 14 /min [address] 11-06-2021 13:45-0400 SaO2% (BldA) [Mass fraction] 99 % [address] 11-06-2021 13:45-0400 Systolic blood pressure 118 mm[Hg] [address] 10-30-2021 12:00-0400 Body temperature 98.6 [degF] Ronan Rodriguez MD Work Phone: [facility] 10-30-2021 12:00-0400 Diastolic blood pressure 53 mm[Hg] Ronan Rodriguez MD Work Phone: [facility] 10-30-2021 12:00-0400 Heart rate 69 /min Ronan Rodriguez MD Work Phone: [facility] 10-30-2021 12:00-0400 Respiratory rate 18 /min Ronan Rodriguez MD Work Phone: [facility] 10-30-2021 12:00-0400 SaO2% (BldA) [Mass fraction] 98 % Ronan Rodriguez MD Work Phone: [facility] 10-30-2021 12:00-0400 Systolic blood pressure 133 mm[Hg] Ronan Rodriguez MD Work Phone: [facility] [email or web address] 10-27-2021 11:56-0400 Body height 162.56 cm Ena Fung CNP Work Phone: [facility] Work Phone: 10-27-2021 11:56-0400 Body mass index (BMI) [Ratio] 33 kg/m2 Ena Fung CNP Work Phone: [facility] Work Phone: 10-27-2021 11:56-0400 Body surface area Derived from formula 1.92 m2 Ena Fung CNP Work Phone: [facility] Work Phone: 10-27-2021 11:56-0400 Body temperature 97.9 [degF] Ena Fung ASPHALT 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 Work Phone: [facility] Work Phone: 10-27-2021 11:56-0400 Body weight 87.09 kg Ena Fung ASPHALT 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 Work Phone: [facility] Work Phone: 10-27-2021 11:56-0400 Diastolic blood pressure 88 mm[Hg] Ena Fung ASPHALT 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 Work Phone: [facility] Work Phone: 10-27-2021 11:56-0400 Heart rate 103 /min Ena Fung ASPHALT 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 Work Phone: [facility] Work Phone: 10-27-2021 11:56-0400 SaO2% (BldA) [Mass fraction] 98 % Ena Fung CNP Work Phone: [facility] Work Phone: 10-27-2021 11:56-0400 Systolic blood pressure 118 mm[Hg] Ena Fung CNP Work Phone: [facility] Work Phone: 10-23-2021 07:50-0400 Body temperature 97.81 [degF] Janae Oropeza MD Work Phone: [facility] 10-23-2021 07:00-0400 Diastolic blood pressure 72 mm[Hg] Janae Oropeza MD Work Phone: [facility] 10-23-2021 07:00-0400 Heart rate 68 /min Janae Oropeza MD Work Phone: [facility] 10-23-2021 07:00-0400 Respiratory rate 12 /min Janae Oropeza MD Work Phone: [facility] 10-23-2021 07:00-0400 SaO2% (BldA) [Mass fraction] 93 % Janae Oropeza MD Work Phone: [facility] 10-23-2021 07:00-0400 Systolic blood pressure 98 mm[Hg] Janae Oropeza MD Work Phone: [facility] 10-20-2021 20:59-0400 Body mass index (BMI) [Ratio] 31.45 kg/m2 Janae Oropeza MD Work Phone: [facility] 10-20-2021 20:59-0400 Body weight 83.1 kg Janae Oropeza MD Work Phone: [facility] 10-19-2021 22:43-0400 Body height 162.6 cm Janae Oropeza MD Work Phone: [facility] 10-19-2021 21:45-0400 Diastolic blood pressure 54 mm[Hg] Olaf Pineda MD Work Phone: [facility] 10-19-2021 21:45-0400 Heart rate 64 /min Olaf Pineda MD Work Phone: [facility] 10-19-2021 21:45-0400 Respiratory rate 18 /min Olaf Pineda MD Work Phone: [facility] 10-19-2021 21:45-0400 SaO2% (BldA) [Mass fraction] 99 % Olaf Pineda MD Work Phone: [facility] 10-19-2021 21:45-0400 Systolic blood pressure 132 mm[Hg] Olaf Pineda MD Work Phone: [facility] 10-19-2021 20:47-0400 Body mass index (BMI) [Ratio] 33.23 kg/m2 Olaf Pineda MD Work Phone: [facility] 10-19-2021 20:47-0400 Body temperature 97.9 [degF] Olaf Pineda MD Work Phone: [facility] 10-19-2021 20:47-0400 Body weight 87.8 kg Olaf Pineda MD Work Phone: [facility] [email or web address] 10-19-2021 20:06-0400 Body height 162.6 cm Olaf Pineda MD Work Phone: [facility] [email or web address] 10-13-2021 14:04-0400 Body height 162.56 cm Ena Fung CNP Work Phone: [facility] Work Phone: 10-13-2021 14:04-0400 Body mass index (BMI) [Ratio] 32.7 kg/m2 Ena Fung CNP Work Phone: [facility] Work Phone: 10-13-2021 14:04-0400 Body surface area Derived from formula 1.92 m2 Ena Fung CNP Work Phone: [facility] Work Phone: 10-13-2021 14:04-0400 Body temperature 97.2 [degF] Ena Fung CNP Work Phone: [facility] Work Phone: 10-13-2021 14:04-0400 Body weight 86.35 kg Ena Fung CNP Work Phone: [facility] Work Phone: 10-13-2021 14:04-0400 Diastolic blood pressure 78 mm[Hg] Ena Fung CNP Work Phone: [facility] Work Phone: 10-13-2021 14:04-0400 Heart rate 78 /min Ena Fung CNP Work Phone: [facility] Work Phone: 10-13-2021 14:04-0400 SaO2% (BldA) [Mass fraction] 99 % Ena Fung CNP Work Phone: [facility] Work Phone: 10-13-2021 14:04-0400 Systolic blood pressure 122 mm[Hg] Ena Fung CNP Work Phone: [facility] Work Phone: 10-07-2021 13:04-0400 Body temperature 98.49 [degF] Santhosh Schwab MD Work Phone: [facility] [email or web address] 10-07-2021 13:04-0400 Diastolic blood pressure 94 mm[Hg] Santhosh Schwab MD Work Phone: [facility] 10-07-2021 13:04-0400 Heart rate 85 /min Santhosh Schwab MD Work Phone: [facility] [employer] 10-07-2021 13:04-0400 Respiratory rate 18 /min aSnthosh Schwab MD Work Phone: [facility] [email or web address] 10-07-2021 13:04-0400 SaO2% (BldA) [Mass fraction] 96 % Santhosh Schwab MD Work Phone: [facility] 10-07-2021 13:04-0400 Systolic blood pressure 152 mm[Hg] Santhosh Schwab MD Work Phone: [facility] [email or web address] 10-07-2021 07:34-0400 Body height 162.6 cm Santhosh Schwab MD Work Phone: [facility] 10-06-2021 22:34-0400 Body mass index (BMI) [Ratio] 32.65 kg/m2 Santhosh Schwab MD Work Phone: [facility] 10-06-2021 22:34-0400 Body weight 86.27 kg Santhosh Schwab MD Work Phone: [facility] 08-14-2021 10:59-0500 Body height 162.6 cm Geoff Chu MD Work Phone: [facility] 08-14-2021 10:59-0500 Body mass index (BMI) [Ratio] 32.51 kg/m2 Geoff Chu MD Work Phone: [facility] 08-14-2021 10:59-0500 Body temperature 97.39 [degF] Geoff Chu MD Work Phone: [facility] 08-14-2021 10:59-0500 Body weight 85.91 kg Geoff Chu MD Work Phone: [facility] 08-14-2021 10:59-0500 Diastolic blood pressure 63 mm[Hg] Geoff Chu MD Work Phone: [facility] 08-14-2021 10:59-0500 Heart rate 79 /min Geoff Chu MD Work Phone: [facility] 08-14-2021 10:59-0500 Respiratory rate 18 /min Geoff Chu MD Work Phone: [facility] 08-14-2021 10:59-0500 SaO2% (BldA) [Mass fraction] 97 % Geoff Chu MD Work Phone: [facility] 08-14-2021 10:59-0500 Systolic blood pressure 120 mm[Hg] Geoff Chu MD Work Phone: [facility] 07-08-2021 14:55-0500 Diastolic blood pressure 65 mm[Hg] Ena Fung 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: [facility] 07-08-2021 14:55-0500 Heart rate 66 /min Ena Fung 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: [facility] 07-08-2021 14:55-0500 Respiratory rate 16 /min Ena Fung 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: [facility] 07-08-2021 14:55-0500 SaO2% (BldA) [Mass fraction] 95 % Ena Fung 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: [facility] 07-08-2021 14:55-0500 Systolic blood pressure 125 mm[Hg] Ena Fung 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: [facility] 07-08-2021 12:18-0500 Body temperature 98.1 [degF] Ena Fung EFFIE Oviedo CNP Work Phone: [facility] 06-19-2021 17:15-0500 Diastolic blood pressure 55 mm[Hg] Nat Mora MD Work Phone: [facility] 06-19-2021 17:15-0500 Heart rate 70 /min Nat Mora MD Work Phone: [facility] 06-19-2021 17:15-0500 Respiratory rate 20 /min Nat Mora MD Work Phone: [facility] 06-19-2021 17:15-0500 SaO2% (BldA) [Mass fraction] 98 % Nat Mora MD Work Phone: [facility] 06-19-2021 17:15-0500 Systolic blood pressure 106 mm[Hg] Nat Mora MD Work Phone: [facility] 06-19-2021 14:20-0500 Body height 162.6 cm Nat Mora MD Work Phone: [facility] 06-19-2021 14:20-0500 Body mass index (BMI) [Ratio] 31.93 kg/m2 Nat Mora MD Work Phone: [facility] 06-19-2021 14:20-0500 Body temperature 97.3 [degF] Nat Mora MD Work Phone: [facility] 06-19-2021 14:20-0500 Body weight 84.37 kg Nat Mora MD Work Phone: [facility] 06-06-2021 13:45-0500 Diastolic blood pressure 72 mm[Hg] Mariana Adames DO Work Phone: [facility] 06-06-2021 13:45-0500 Heart rate 62 /min Mariana Adames DO Work Phone: [facility] 06-06-2021 13:45-0500 Respiratory rate 19 /min Mariana Admaes DO Work Phone: [facility] 06-06-2021 13:45-0500 Systolic blood pressure 139 mm[Hg] Mariana Adames DO Work Phone: [facility] 06-06-2021 13:15-0500 SaO2% (BldA) [Mass fraction] 98 % Mariana Adames DO Work Phone: [facility] 06-06-2021 09:48-0500 Body temperature 97.3 [degF] Mariana Adames DO Work Phone: [facility] 05-22-2021 16:55-0400 Diastolic blood pressure 92 mm[Hg] Ruiz Romero MD Work Phone: [facility] Work Phone: 05-22-2021 16:55-0400 Systolic blood pressure 177 mm[Hg] Ruiz Romero MD Work Phone: [facility] Work Phone: 05-22-2021 16:53-0400 Body mass index (BMI) [Ratio] 30.9 kg/m2 Ruiz Romero MD Work Phone: [facility] Work Phone: 05-22-2021 16:53-0400 Body temperature 97.81 [degF] Ruiz Romero MD Work Phone: [facility] Work Phone: 05-22-2021 16:53-0400 Body weight 81.65 kg Ruiz Romero MD Work Phone: [facility] Work Phone: 05-22-2021 16:53-0400 Heart rate 77 /min Ruiz Romero MD Work Phone: [facility] Work Phone: 05-22-2021 16:53-0400 Respiratory rate 16 /min Ruiz Romero MD Work Phone: [facility] Work Phone: 05-22-2021 16:53-0400 SaO2% (BldA) [Mass fraction] 98 % Ruiz Romero MD Work Phone: [facility] Work Phone: 03-20-2021 16:03-0400 Body height 162.56 cm Ena Fung CNP Work Phone: [facility] Work Phone: 03-20-2021 16:03-0400 Body mass index (BMI) [Ratio] 31.9 kg/m2 Ena Fung CNP Work Phone: [facility] Work Phone: 03-20-2021 16:03-0400 Body surface area Derived from formula 1.9 m2 Ena Fung CNP Work Phone: [facility] Work Phone: 03-20-2021 16:03-0400 Body weight 84.37 kg Ena Fung CNP Work Phone: [facility] Work Phone: 02-05-2021 19:19-0400 Body height 162.56 cm Ena Fung CNP Work Phone: [facility] Work Phone: 02-05-2021 19:19-0400 Body mass index (BMI) [Ratio] 31.9 kg/m2 Ena Fung CNP Work Phone: [facility] Work Phone: 02-05-2021 19:19-0400 Body surface area Derived from formula 1.9 m2 Ena Fung CNP Work Phone: [facility] Work Phone: 02-05-2021 19:19-0400 Body temperature 95.1 [degF] Ena Fung CNP Work Phone: [facility] Work Phone: 02-05-2021 19:19-0400 Body weight 84.37 kg Ena Fung ASPHALT 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 Work Phone: [facility] Work Phone: 02-05-2021 19:19-0400 Diastolic blood pressure 74 mm[Hg] Ena Fung ASPHALT 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 Work Phone: [facility] Work Phone: 02-05-2021 19:19-0400 Heart rate 62 /min Ena Fung ASPHALT 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 Work Phone: [facility] Work Phone: 02-05-2021 19:19-0400 Respiratory rate 18 /min Ena Fung ASPHALT 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 Work Phone: [facility] Work Phone: 02-05-2021 19:19-0400 SaO2% (BldA) [Mass fraction] 99 % Ena Fung ASPHALT 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 Work Phone: [facility] Work Phone: 02-05-2021 19:19-0400 Systolic blood pressure 110 mm[Hg] Ena Fung ASPHALT 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 Work Phone: [facility] Work Phone: 01-29-2021 06:32-0400 Body temperature 98.8 [degF] Antony Borges MD Work Phone: [facility] Work Phone: 01-29-2021 06:32-0400 Diastolic blood pressure 76 mm[Hg] Antony Borges MD Work Phone: [facility] Work Phone: 01-29-2021 06:32-0400 Heart rate 65 /min Antony Borges MD Work Phone: [facility] Work Phone: 01-29-2021 06:32-0400 Respiratory rate 16 /min Antony Borges MD Work Phone: [facility] Work Phone: 6 06:32-0400 SaO2% (BldA) [Mass fraction] 99 % Antony Borges MD Work Phone: [facility] Work Phone: 01-29-2021 06:32-0400 Systolic blood pressure 134 mm[Hg] Antony Borges MD Work Phone: [facility] Work Phone: 01-08-2021 16:50-0400 Body height 162.56 cm Ena Fung CNP Work Phone: [employer] [facility] Work Phone: 01-08-2021 16:50-0400 Body mass index (BMI) [Ratio] 32.5 kg/m2 Ena Fung CNP Work Phone: [employer] Work Phone: 01-08-2021 16:50-0400 Body surface area Derived from formula 1.91 m2 Ena Fung CNP Work Phone: [employer] [facility] Work Phone: 01-08-2021 16:50-0400 Body temperature 96.2 [degF] Ena Fung CNP Work Phone: [facility] Work Phone: 01-08-2021 16:50-0400 Body weight 86 kg Ena Fung CNP Work Phone: [facility] Work Phone: 01-08-2021 16:50-0400 Diastolic blood pressure 90 mm[Hg] Ena Kenton CNP Work Phone: [facility] Work Phone: 01-08-2021 16:50-0400 Heart rate 73 /min Ena Fung CNP Work Phone: [facility] Work Phone: 01-08-2021 16:50-0400 Respiratory rate 18 /min Ena Fung CNP Work Phone: [facility] Work Phone: 01-08-2021 16:50-0400 SaO2% (BldA) [Mass fraction] 99 % Ena Fung CNP Work Phone: [facility] Work Phone: 01-08-2021 16:50-0400 Systolic blood pressure 132 mm[Hg] Ena Fung CNP Work Phone: [facility] Work Phone: 01-03-2021 15:01-0400 Body temperature 98.01 [degF] Olaf Pineda MD Work Phone: [facility] Work Phone: 01-03-2021 15:01-0400 Diastolic blood pressure 64 mm[Hg] Olaf Pineda MD Work Phone: [facility] Work Phone: 01-03-2021 15:01-0400 Heart rate 55 /min Olaf Pineda MD Work Phone: [facility] Work Phone: 01-03-2021 15:01-0400 Respiratory rate 16 /min Olaf Pineda MD Work Phone: [facility] Work Phone: 01-03-2021 15:01-0400 SaO2% (BldA) [Mass fraction] 100 % Olaf Pineda MD Work Phone: [facility] Work Phone: 01-03-2021 15:01-0400 Systolic blood pressure 112 mm[Hg] Olaf Pineda MD Work Phone: [facility] Work Phone: 01-03-2021 04:00-0400 Body mass index (BMI) [Ratio] 32.17 kg/m2 Olaf Pineda MD Work Phone: [facility] Work Phone: 01-03-2021 04:00-0400 Body weight 85 kg Olaf Pineda MD Work Phone: [facility] Work Phone: 01-02-2021 12:28-0400 Body height 162.6 cm Olaf Pineda MD Work Phone: [facility] Work Phone: 11-22-2020 11:51-0400 Body mass index (BMI) [Ratio] 32.61 kg/m2 Santohsh Schwab MD Work Phone: [facility] Work Phone: 11-22-2020 11:51-0400 Body temperature 98.49 [degF] Santhosh Schwab MD Work Phone: [facility] Work Phone: 11-22-2020 11:51-0400 Body weight 86.18 kg Santhosh Schwab MD Work Phone: [facility] Work Phone: 11-22-2020 11:51-0400 Diastolic blood pressure 73 mm[Hg] Santhosh Schwab MD Work Phone: [facility] Work Phone: 11-22-2020 11:51-0400 Heart rate 64 /min Santhosh Schwab MD Work Phone: [facility] Work Phone: 11-22-2020 11:51-0400 Respiratory rate 16 /min Santhosh Schwab MD Work Phone: [facility] Work Phone: 11-22-2020 11:51-0400 SaO2% (BldA) [Mass fraction] 98 % Santhosh Schwab MD Work Phone: [facility] Work Phone: 11-22-2020 11:51-0400 Systolic blood pressure 127 mm[Hg] Santhosh Schwab MD Work Phone: [facility] Work Phone: 09-04-2020 15:16-0500 BMI (Body Mass Index) 34 kg/m2 [facility] Work Phone: 09-04-2020 15:16-0500 Body Temperature 97.9 [degF] [facility] Work Phone: 09-04-2020 15:16-0500 Body weight 89.81 kg [facility] Work Phone: 09-04-2020 15:16-0500 BP Diastolic 100 mm[Hg] [facility] Work Phone: 09-04-2020 15:16-0500 BP Systolic 140 mm[Hg] [facility] Work Phone: 09-04-2020 15:16-0500 BSA (Body Surface Area) 1.95 m2 [facility] Work Phone: 09-04-2020 15:16-0500 Height 162.56 cm [facility] Work Phone: 09-04-2020 15:16-0500 Pulse (Heart Rate) 91 /min [facility] Work Phone: 09-04-2020 15:16-0500 Pulse Oximetry 98 % Ena Fung [facility] Work Phone: 09-04-2020 15:16-0500 Respiratory Rate 14 /min Ena Fung [facility] Work Phone: 09-04-2020 15:16-0500 SaO2% (BldA) [Mass fraction] 98 % Ena Fung [facility] Work Phone: [facility] Work Phone: 08-29-2020 07:06-0500 Body Temperature 98.1 [degF] Mariana Adames [facility] Work Phone: 08-29-2020 07:06-0500 BP Diastolic 58 mm[Hg] Mariana Adames [facility] Work Phone: 08-29-2020 07:06-0500 BP Systolic 112 mm[Hg] Mariana Adames [facility] Work Phone: 08-29-2020 07:06-0500 Pulse (Heart Rate) 53 /min Mariana Adames [facility] Work Phone: 08-29-2020 07:06-0500 Pulse Oximetry 95 % Mariana Adames [facility] Work Phone: 08-29-2020 07:06-0500 Respiratory Rate 16 /min Mariana Adames [facility] Work Phone: 08-29-2020 04:06-0500 BMI (Body Mass Index) 34.02 kg/m2 Mariana Adames [facility] Work Phone: 08-29-2020 04:06-0500 Body weight 89.9 kg Mariana Adames [facility] Work Phone: 08-28-2020 07:50-0500 Height 162.6 cm Mariana Ellis [facility] Work Phone: 06-17-2020 13:37-0500 BP Diastolic 57 mm[Hg] Ena Fung [facility] , [place] 06-17-2020 13:37-0500 BP Systolic 118 mm[Hg] [facility] , [place] 06-17-2020 13:37-0500 Pulse (Heart Rate) 57 /min Ena [facility] [place] 06-17-2020 13:37-0500 Pulse Oximetry 99 % Ena Fung [facility] [place] 06-17-2020 13:37-0500 Respiratory Rate 16 /min Ena Fung [facility], [place] 06-17-2020 10:28-0500 BMI (Body Mass Index) 33.81 kg/m2 [facility] [place] 06-17-2020 10:28-0500 Body Temperature 96.8 [degF] [facility] [place] 06-17-2020 10:28-0500 Body weight 89.36 kg [facility] [place] 06-17-2020 10:28-0500 Height 162.6 cm [place], [place] 05-02-2020 13:35-0400 BMI (Body Mass Index) 33.8 kg/m2 [facility] Work Phone: 05-02-2020 13:35-0400 Body weight 90.72 kg [facility] Work Phone: 05-02-2020 13:35-0400 BSA (Body Surface Area) 1.97 m2 [facility] Work Phone: 05-02-2020 13:35-0400 Height 163.83 cm [facility] Work Phone: 04-28-2020 15:50-0400 BP Diastolic 77 mm[Hg] [facility] [place] 04-28-2020 15:50-0400 BP Systolic 142 mm[Hg] [facility] [place] 04-28-2020 15:48-0400 BMI (Body Mass Index) 32.44 kg/m2 [facility], [place] 04-28-2020 15:48-0400 Body Temperature 97.11 [degF] Ena [facility] [place] 04-28-2020 15:48-0400 Body weight 85.73 kg Ena Boyer [facility] , [place] 04-28-2020 15:48-0400 Height 162.6 cm Ena Boyer [facility] , [place] 04-28-2020 15:48-0400 Pulse (Heart Rate) 74 /min Ena Boyer [facility], [place] 04-28-2020 15:48-0400 Pulse Oximetry 98 % Ena Boyer [facility] , [place] 04-28-2020 15:48-0400 Respiratory Rate 12 /min Ena Boyer [facility] [place] 01-15-2020 10:04-0400 Body height 163.83 cm Ena Fung CNP Work Phone: [facility] Work Phone: Comment on above: self 01-15-2020 10:04-0400 Body mass index (BMI) [Ratio] 33.8 kg/m2 Ena Fung CNP Work Phone: [facility] Work Phone: Comment on above: self 01-15-2020 10:04-0400 Body surface area Derived from formula 1.97 m2 Ena Fung CNP Work Phone: [facility] Work Phone: Comment on above: self 01-15-2020 10:04-0400 Body weight 90.72 kg Ena Fung CNP Work Phone: [facility] Work Phone: Comment on above: self 12-30-2019 06:34-0400 Body Temperature 97.7 [degF] Michael Boy[facility] 12-30-2019 06:34-0400 BP Diastolic 64 mm[Hg] [facility] , [place] 12-30-2019 06:34-0400 BP Systolic 114 mm[Hg] [facility] [place] 12-30-2019 06:34-0400 Pulse (Heart Rate) 70 /min [facility] [place] 12-30-2019 06:34-0400 Pulse Oximetry 98 % [facility] [place] 12-30-2019 06:34-0400 Respiratory Rate 17 /min [facility] [place] 12-29-2019 09:45-0400 BP Diastolic 64 mm[Hg] Rl [facility] , [place] 12-29-2019 09:45-0400 BP Systolic 118 mm[Hg] [facility] [place] 12-29-2019 09:45-0400 Pulse (Heart Rate) 54 /min Rl Carlota [facility], [place] 12-29-2019 09:45-0400 Pulse Oximetry 99 % Rl Blanc [facility] , [place] 12-29-2019 09:45-0400 Respiratory Rate 16 /min Rl [facility], [place] 12-29-2019 07:38-0400 Body Temperature 98.8 [degF] [facility] 12-29-2019 06:32-0400 BMI (Body Mass Index) 34.81 kg/m2 Rl Carlota [facility] 12-29-2019 06:32-0400 Body Temperature 97 [degF] Rl [facility] 12-29-2019 06:32-0400 Body weight 92 kg Rl [facility] , [place] 12-29-2019 06:32-0400 BP Diastolic 68 mm[Hg] Rl [facility] , [place] 12-29-2019 06:32-0400 BP Systolic 114 mm[Hg] Rl [facility] , [place] 12-29-2019 06:32-0400 Pulse (Heart Rate) 52 /min Rl [facility] 12-29-2019 06:32-0400 Pulse Oximetry 97 % Rl Blanc [facility] , [place] 12-29-2019 06:32-0400 Respiratory Rate 14 /min Rl [facility] 12-28-2019 14:00-0400 Height 162.6 cm Rl [facility] , [place] 10-10-2019 11:56-0400 Body Temperature 97.9 [degF] Terrence Lyle [facility], [place] 10-10-2019 11:56-0400 BP Diastolic 77 mm[Hg] Terrence Lyle [facility], [place] 10-10-2019 11:56-0400 BP Systolic 152 mm[Hg] Terrence Lyle [facility], [place] 10-10-2019 11:56-0400 Pulse (Heart Rate) 73 /min Terrence Lyle [facility], [place] 10-10-2019 11:56-0400 Pulse Oximetry 96 % Terrence Lyle [facility] 10-10-2019 11:56-0400 Respiratory Rate 14 /min Terrence Lyle [facility] 10-10-2019 11:30-0400 BMI (Body Mass Index) 30.55 kg/m2 Terrence Lyle [facility] 10-10-2019 11:30-0400 Body weight 80.74 kg Terrence Lyle [facility] [place] 10-10-2019 11:30-0400 Height 162.6 cm Terrence Lyle [facility] [place] 08-29-2019 13:47-0500 BP Diastolic 65 mm[Hg] Ena Fung [employer] Work Phone: 08-29-2019 13:47-0500 BP Systolic 137 mm[Hg] Ena [employer] Work Phone: 08-29-2019 11:57-0500 BMI (Body Mass Index) 31.93 kg/m2 Ena [employer] Work Phone: 08-29-2019 11:57-0500 Body Temperature 97.81 [degF] Ena [employer] Work Phone: 08-29-2019 11:57-0500 Body weight 84.37 kg Ena [employer] Work Phone: 08-29-2019 11:57-0500 Height 162.6 cm Ena Fung [employer] Work Phone: 08-29-2019 11:57-0500 Pulse (Heart Rate) 68 /min Ena Fung [employer] Work Phone: 08-29-2019 11:57-0500 Pulse Oximetry 97 % Ena Fung [employer] Work Phone: 08-29-2019 11:57-0500 Respiratory Rate 16 /min Ena Fung [employer] Work Phone: 08-21-2019 13:18-0500 Diastolic blood pressure 70 mm[Hg] Janae Landon MD Work Phone: [employer] Work Phone: 08-21-2019 13:18-0500 Heart rate 62 /min Janae Landon MD Work Phone: [employer] Work Phone: 08-21-2019 13:18-0500 Respiratory rate 18 /min Janae Landon MD Work Phone: [employer] Work Phone: 08-21-2019 13:18-0500 SaO2% (BldA) [Mass fraction] 98 % Janae Landon MD Work Phone: [employer] Work Phone: 08-21-2019 13:18-0500 Systolic blood pressure 130 mm[Hg] Janae Landon MD Work Phone: [employer] Work Phone: 08-21-2019 09:14-0500 Body mass index (BMI) [Ratio] 31.93 kg/m2 Janae Landon MD Work Phone: [employer] Work Phone: 08-21-2019 09:14-0500 Body temperature 98.01 [degF] Janae Landon MD Work Phone: [employer] Work Phone: 08-21-2019 09:14-0500 Body weight 84.37 kg Janae Landon MD Work Phone: [facility] Work Phone: 06-08-2019 20:30-0500 BP Diastolic 85 mm[Hg] [facility] [place] 06-08-2019 20:30-0500 BP Systolic 154 mm[Hg] [facility] , [place] 06-08-2019 20:30-0500 Pulse (Heart Rate) 84 /min [facility], [place] 06-08-2019 20:30-0500 Respiratory Rate 18 /min [facility], [place] 06-08-2019 19:10-0500 BMI (Body Mass Index) 30.55 kg/m2 [facility], [place] 06-08-2019 19:10-0500 Body weight 80.74 kg [facility] , [place] 06-08-2019 19:10-0500 Height 162.6 cm [facility] , [place] 06-08-2019 18:58-0500 Body Temperature 97.59 [degF] [facility] 06-08-2019 18:57-0500 Pulse Oximetry 98 % [facility] , [place] 04-21-2019 08:30-0400 Body Temperature 97.7 [degF] Janae [facility], [place] 04-21-2019 08:30-0400 BP Diastolic 67 mm[Hg] Janae [facility] , [place] 04-21-2019 08:30-0400 BP Systolic 135 mm[Hg] Janae [facility] , [place] 04-21-2019 08:30-0400 Pulse (Heart Rate) 77 /min Janae [facility], [place] 04-21-2019 08:30-0400 Pulse Oximetry 99 % Janae [facility] , [place] 04-21-2019 08:30-0400 Respiratory Rate 21 /min Janae [facility], [place] 04-20-2019 04:39-0400 BMI (Body Mass Index) 32.75 kg/m2 Janae Mccabe [facility], [place] 04-20-2019 04:39-0400 Body weight 86.55 kg Janae [facility] [place] 04-20-2019 04:39-0400 Height 162.6 cm Janae [facility] [place] 04-19-2019 18:33-0400 Pulse (Heart Rate) 67 /min [facility], [place] 04-19-2019 18:33-0400 Respiratory Rate 18 /min [facility], [place] 04-19-2019 18:22-0400 BP Diastolic 78 mm[Hg] [facility] , [place] 04-19-2019 18:22-0400 BP Systolic 150 mm[Hg] [facility] , [place] 04-19-2019 13:30-0400 Pulse Oximetry 99 % [facility] , [place] 04-19-2019 13:25-0400 BMI (Body Mass Index) 32.44 kg/m2 [facility], [place] 04-19-2019 13:25-0400 Body Temperature 97.39 [degF] [facility] 04-19-2019 13:25-0400 Body weight 85.73 kg [facility] , [place] 06-23-2018 17:46-0500 BMI (Body Mass Index) 30.76 kg/m2 [facility] 06-23-2018 17:46-0500 Body Temperature 97 [degF] [facility] 06-23-2018 17:46-0500 BP Diastolic 64 mm[Hg] [facility] 06-23-2018 17:46-0500 BP Systolic 108 mm[Hg] [facility] 06-23-2018 17:46-0500 BSA (Body Surface Area) 1.94 m2 [facility] 06-23-2018 17:46-0500 Height 163.83 cm [facility] 06-23-2018 17:46-0500 Pulse (Heart Rate) 70 /min [facility] 06-23-2018 17:46-0500 Pulse Oximetry 96 % [facility] 06-23-2018 17:46-0500 Respiratory Rate 20 /min [facility] 06-23-2018 17:46-0500 Weight 82.56 kg [facility] 04-26-2018 18:49-0400 BMI (Body Mass Index) 32.11 kg/m2 [facility] 04-26-2018 18:49-0400 Body Temperature 97.1 [degF] [facility] 04-26-2018 18:49-0400 BP Diastolic 80 mm[Hg] [facility] 04-26-2018 18:49-0400 BP Systolic 128 mm[Hg] [facility] 04-26-2018 18:49-0400 BSA (Body Surface Area) 1.98 m2 [facility] 04-26-2018 18:49-0400 Height 163.83 cm [facility] 04-26-2018 18:49-0400 Pulse (Heart Rate) 74 /min [facility] 04-26-2018 18:49-0400 Pulse Oximetry 95 % [facility] 04-26-2018 18:49-0400 Respiratory Rate 20 /min [facility] 04-26-2018 18:49-0400 Weight 86.18 kg [facility] 04-26-2018 17:49-0400 BMI (Body Mass Index) 32.11 kg/m2 [facility] 04-26-2018 17:49-0400 Body Temperature 97.1 [degF] [facility] 04-26-2018 17:49-0400 BP Diastolic 80 mm[Hg] [facility] 04-26-2018 17:49-0400 BP Systolic 128 mm[Hg] [facility] 04-26-2018 17:49-0400 BSA (Body Surface Area) 1.98 m2 [facility] 04-26-2018 17:49-0400 Height 163.83 cm [facility] 04-26-2018 17:49-0400 Pulse (Heart Rate) 74 /min [facility] 04-26-2018 17:49-0400 Pulse Oximetry 95 % [facility] 04-26-2018 17:49-0400 Respiratory Rate 20 /min [facility] 04-26-2018 17:49-0400 Weight 86.18 kg [facility] 01-20-2018 18:17-0400 BMI (Body Mass Index) 31.62 kg/m2 [facility] 01-20-2018 18:17-0400 Body Temperature 98.2 [degF] [facility] 01-20-2018 18:17-0400 BP Diastolic 80 mm[Hg] [facility] 01-20-2018 18:17-0400 BP Systolic 110 mm[Hg] [facility] 01-20-2018 18:17-0400 BSA (Body Surface Area) 1.97 m2 [facility] 01-20-2018 18:17-0400 Height 163.83 cm [facility] 01-20-2018 18:17-0400 Pulse (Heart Rate) 84 /min [facility] 01-20-2018 18:17-0400 Pulse Oximetry 97 % [facility] 01-20-2018 18:17-0400 Respiratory Rate 18 /min [facility] 01-20-2018 18:17-0400 Weight 84.88 kg [facility] 01-20-2018 17:17-0400 BMI (Body Mass Index) 31.62 kg/m2 [facility] 01-20-2018 17:17-0400 Body Temperature 98.2 [degF] [facility] 01-20-2018 17:17-0400 BP Diastolic 80 mm[Hg] [facility] 01-20-2018 17:17-0400 BP Systolic 110 mm[Hg] [facility] 01-20-2018 17:17-0400 BSA (Body Surface Area) 1.97 m2 [facility] 01-20-2018 17:17-0400 Height 163.83 cm [facility] 01-20-2018 17:17-0400 Pulse (Heart Rate) 84 /min [facility] 01-20-2018 17:17-0400 Pulse Oximetry 97 % [facility] 01-20-2018 17:17-0400 Respiratory Rate 18 /min [facility] 01-20-2018 17:17-0400 Weight 84.88 kg [facility] 10-15-2017 14:10-0400 BP Diastolic 80 mm[Hg] [facility] 10-15-2017 14:10-0400 BP Systolic 125 mm[Hg] [facility] 10-15-2017 14:02-0400 BMI (Body Mass Index) 31.6 kg/m2 [facility] 10-15-2017 14:02-0400 Body Temperature 97.2 [degF] [facility] 10-15-2017 14:02-0400 BP Diastolic 90 mm[Hg] [facility] 10-15-2017 14:02-0400 BP Systolic 140 mm[Hg] [facility] 10-15-2017 14:02-0400 BSA (Body Surface Area) 1.96 m2 [facility] 10-15-2017 14:02-0400 Height 163.83 cm [facility] 10-15-2017 14:02-0400 Pulse (Heart Rate) 77 /min [facility] 10-15-2017 14:02-0400 Pulse Oximetry 96 % [facility] 10-15-2017 14:02-0400 Respiratory Rate 20 /min [facility] 10-15-2017 14:02-0400 Weight 84.82 kg [facility] 10-15-2017 13:10-0400 BP Diastolic 80 mm[Hg] [facility] 10-15-2017 13:10-0400 BP Systolic 125 mm[Hg] [facility] 10-15-2017 13:02-0400 BMI (Body Mass Index) 31.6 kg/m2 [facility] 10-15-2017 13:02-0400 Body Temperature 97.2 [degF] [facility] 10-15-2017 13:02-0400 BP Diastolic 90 mm[Hg] [facility] 10-15-2017 13:02-0400 BP Systolic 140 mm[Hg] [facility] 10-15-2017 13:02-0400 BSA (Body Surface Area) 1.96 m2 [facility] 10-15-2017 13:02-0400 Height 163.83 cm [facility] 10-15-2017 13:02-0400 Pulse (Heart Rate) 77 /min [facility] 10-15-2017 13:02-0400 Pulse Oximetry 96 % [facility] 10-15-2017 13:02-0400 Respiratory Rate 20 /min [facility] 10-15-2017 13:02-0400 Weight 84.82 kg [facility] 10-05-2017 14:12-0400 BMI (Body Mass Index) 31.77 kg/m2 [facility] 10-05-2017 14:12-0400 Body Temperature 97.1 [degF] [facility] 10-05-2017 14:12-0400 BP Diastolic 75 mm[Hg] [facility] 10-05-2017 14:12-0400 BP Systolic 135 mm[Hg] [facility] 10-05-2017 14:12-0400 BSA (Body Surface Area) 1.97 m2 [facility] 10-05-2017 14:12-0400 Height 163.83 cm [facility] 10-05-2017 14:12-0400 Pulse (Heart Rate) 63 /min [facility] 10-05-2017 14:12-0400 Pulse Oximetry 99 % [facility] 10-05-2017 14:12-0400 Respiratory Rate 20 /min [facility] 10-05-2017 14:12-0400 Weight 85.28 kg [facility] 10-05-2017 13:12-0400 BMI (Body Mass Index) 31.77 kg/m2 [facility] 10-05-2017 13:12-0400 Body Temperature 97.1 [degF] [facility] 10-05-2017 13:12-0400 BP Diastolic 75 mm[Hg] [facility] 10-05-2017 13:12-0400 BP Systolic 135 mm[Hg] [facility] 10-05-2017 13:12-0400 BSA (Body Surface Area) 1.97 m2 [facility] 10-05-2017 13:12-0400 Height 163.83 cm [facility] 10-05-2017 13:12-0400 Pulse (Heart Rate) 63 /min [facility] 10-05-2017 13:12-0400 Pulse Oximetry 99 % [facility] 10-05-2017 13:12-0400 Respiratory Rate 20 /min [facility] 10-05-2017 13:12-0400 Weight 85.28 kg [facility] 03-23-2017 17:42-0400 BMI (Body Mass Index) 30.93 kg/m2 [facility] 03-23-2017 17:42-0400 Body Temperature 97.8 [degF] [facility] 03-23-2017 17:42-0400 BP Diastolic 86 mm[Hg] [facility] 03-23-2017 17:42-0400 BP Systolic 138 mm[Hg] [facility] 03-23-2017 17:42-0400 BSA (Body Surface Area) 1.94 m2 [facility] 03-23-2017 17:42-0400 Height 163.83 cm [facility] 03-23-2017 17:42-0400 [facility] 03-23-2017 17:42-0400 Pulse Oximetry 97 % [facility] 03-23-2017 17:42-0400 Respiratory Rate 18 /min [facility] 03-23-2017 17:42-0400 Weight 83.01 kg [facility] 03-23-2017 16:42-0400 BMI (Body Mass Index) 30.93 kg/m2 [facility] 03-23-2017 16:42-0400 Body Temperature 97.8 [degF] [facility] 03-23-2017 16:42-0400 BP Diastolic 86 mm[Hg] [facility] 03-23-2017 16:42-0400 BP Systolic 138 mm[Hg] [facility] 03-23-2017 16:42-0400 BSA (Body Surface Area) 1.94 m2 [facility] 03-23-2017 16:42-0400 Height 163.83 cm [facility] 03-23-2017 16:42-0400 Pulse (Heart Rate) 77 /min [facility] 03-23-2017 16:42-0400 Pulse Oximetry 97 % [facility] 03-23-2017 16:42-0402 Respiratory Rate 18 /min [facility] 03-23-2017 16:42-0400 Weight 83.01 kg Ena Fung [facility] Encounters Encounter Date Encounter Type Care Provider Facility Start: 08-20-2024 End: 08-21-2024 Clinisync Result Encounter Brock ARMIJO Work Phone: [facility] External [facility] Unsolicited Start: 08-20-2024 End: 08-21-2024 Clinisync Result Encounter Brock ARMIJO Work Phone: [facility] External [facility] Unsolicited Start: 06-06-2024 End: 06-10-2024 ambulatory [facility] Start: 06-05-2024 End: 06-05-2024 Emergency department patient visit ENA FUNG [facility] Start: 03-12-2024 End: 03-12-2024 Emergency department patient visit ENA FUNG [facility] ED Comment on above: Other chest pain (Pr imary Dx); Hypokalemia; Grief reaction Start: 02-08-2024 End: 02-08-2024 [facility] visit, estab pt Margarita Reza SUPERVISOR [employer] Work Phone: [facility] Work Phone: Start: 02-08-2024 End: 02-08-2024 ambulatory Ena Fung [employer] 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 Work Phone: [facility] Work Phone: Start: 01-27-2024 End: 01-27-2024 Patient encounter procedure Ena Fung [employer] 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 Work Phone: [facility] Work Phone: Start: 01-27-2024 End: 01-27-2024 [facility] visit, estab pt Oliva LANCASTER Work Phone: [facility] Work Phone: Start: 01-27-2024 End: 01-27-2024 ambulatory Ena Kenton [employer]HALT 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 Work Phone: [facility] Work Phone: Start: 01-25-2024 End: 01-25-2024 Emergency department patient visit JANAE Patel ESTELLE [facility] Start: 01-18-2024 End: 01-18-2024 Subsequent hospital visit by physician Nat Mora MD Work Phone: [facility] Cardiac Rehab Comment on above: Canceled (Michelle-No Show) Start: 12-23-2023 End: 12-23-2023 Emergency department patient visit Jaxson Ferrer MD Work Phone: [facility] ED Comment on above: Atypical chest pain (Primary Dx) Start: 12-07-2023 End: 12-07-2023 ambulatory [facility]NA [facility] Start: 09-13-2023 ambulatory Ena Thornton Lizbeth silva CLINICAL EDUCATION CONSULTANT-ASPHALT 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 Facility:Pulmonology & Critical Care Medicine [facility] Start: 09-07-2023 End: 09-07-2023 [facility] visit, estab pt Ena Fung [employer]HALT 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 Work Phone: [facility] Work Phone: Start: 09-07-2023 End: 09-07-2023 General Vicky Call [employer]HALT 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 Work Phone: [facility] Work Phone: Start: 08-20-2023 End: 08-20-2023 [facility] visit, estab pt Vicky Call [employer]HALT 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 Work Phone: [facility] Work Phone: Start: 08-16-2023 End: 08-18-2023 Evaluation and management of inpatient CAR Brown MATTHEWS [facility] Start: 08-12-2023 End: 08-12-2023 Emergency department patient visit [facility] ED Comment on above: Abdominal pain, epig astric (Primary Dx); Hypokalemia Start: 08-04-2023 End: 08-04-2023 [facility] visit, estab pt Ena Fung CNP Work Phone: [facility] Work Phone: Start: 07-20-2023 End: 07-20-2023 Emergency department patient visit Lisa Blackman Work Phone: [facility] ED Comment on above: Acute pharyngitis, u nspecified etiology (Primary Dx) Start: 05-06-2023 End: 05-06-2023 ambulatory RONAN RODRIGUEZ [facility] Start: 04-29-2023 End: 05-01-2023 ambulatory CAROLINE RODRIGUEZCODY [facility] Start: 04-23-2023 End: 04-24-2023 ambulatory ENA FUNG [facility] Start: 03-11-2023 End: 03-11-2023 Subsequent hospital visit by physician [facility] Op Treatment 03 [facility] Special[facility] ([facility]) Comment on above: Dog bite, initial en counter (Primary Dx) Start: 03-09-2023 End: 03-10-2023 ambulatory Asim Lucero MD Facility:[facility] Start: 03-05-2023 End: 03-05-2023 Emergency department patient visit Ena Praterbessy CHOU - ASPHALT 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 Work Phone: [facility] ED Comment on above: Dog bite of left thi gh, initial encounter (Primary Dx); Dog bite of left wrist, initial encounter; Dog bite of left hand, initial encounter Start: 02-22-2023 End: 02-22-2023 Emergency department patient visit Ena Praterbessy CHOU - ASPHALT 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 Work Phone: [facility] ED Comment on above: Abdominal pain, righ t lower quadrant (Primary Dx) Start: 02-01-2023 End: 02-01-2023 General Ena Fung CNP Work Phone: [facility] Work Phone: Start: 02-01-2023 End: 02-01-2023 [facility] visit, estab pt Ena Fung ASPHALT 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 Work Phone: [facility] Work Phone: Start: 12-21-2022 End: 12-21-2022 Emergency department patient visit Ena Fung 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: [facility] ED Comment on above: Injury of left shoul holden, initial encounter (Primary Dx); Sprain of right knee, unspecified ligament, initial encounter; Sprain of left wrist, initial encounter Start: 12-21-2022 End: 12-21-2022 [facility] visit, estab pt Ena Fung ASPHALT 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 Work Phone: [facility] Work Phone: Start: 11-19-2022 End: 11-19-2022 FQ visit, estab pt Oliva LANCASTER Work Phone: [facility] Work Phone: Start: 11-19-2022 End: 11-19-2022 ambulatory Ena Fung CNP Work Phone: [facility] Work Phone: Start: 11-18-2022 End: 11-18-2022 Subsequent hospital visit by physician [facility] Echo Room [facility] Echocardiography Comment on above: Atypical chest pain Start: 08-20-2022 End: 08-20-2022 Subsequent hospital visit by physician Ronan Rodriguez MD Work Phone: [facility] PULP TESTER Start: 08-20-2022 End: 08-20-2022 Emergency department patient visit Ena Fung APRN - ASPHALT 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 Work Phone: [facility] ED Comment on above: Other chest pain (Pr imary Dx) Start: 07-28-2022 End: 07-28-2022 Emergency department patient visit Jaxson Ferrer MD Work Phone: [facility] ED Comment on above: Acute gastritis, pre sence of bleeding unspecified, unspecified gastritis type (Primary Dx); Nausea and vomiting, unspecified vomiting type; S/P PTCA (percutaneous transluminal coronary angioplasty) Start: 05-07-2022 End: 05-09-2022 Subsequent hospital visit by physician [facility] MRI Comment on above: Cervical radiculopat hy at C6; Cervical disc disorder at C5-C6 level with myelopathy Start: 05-01-2022 End: 05-01-2022 Emergency department patient visit Thad Berrios MD [facility] ED Comment on above: Right leg pain (Prim james Dx); Fall, initial encounter Start: 04-13-2022 End: 04-13-2022 [facility]QHC visit, estab pt Ronda Dorsey LPCC-S Work Phone: [facility] Work Phone: Start: 04-13-2022 End: 04-13-2022 [facility] visit, estab pt Ena Fung ASPHALT 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 Work Phone: [facility] Work Phone: Start: 02-03-2022 End: 02-05-2022 Subsequent hospital visit by physician [facility] Ultrasound Room 2 [facility] Ultrasound Comment on above: Abdominal pain, gene ralized Start: 01-30-2022 End: 01-30-2022 [facility]QHC visit, estab pt Ronda Dorsey LPCC-S Work Phone: [facility] Work Phone: Start: 12-19-2021 End: 12-19-2021 Emergency department patient visit Santhosh Schwab MD Work Phone: [facility] ED Comment on above: Acute pharyngitis, u nspecified etiology (Primary Dx) Start: 11-26-2021 End: 11-26-2021 FQHC visit, estab pt Ena Fung ASPHALT 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 Work Phone: [facility] Work Phone: Start: 11-21-2021 End: 11-21-2021 Emergency department patient visit Ena Fung 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: [facility] ED Comment on above: Left cervical radicu lopathy (Primary Dx) Start: 11-06-2021 End: 11-06-2021 Subsequent hospital visit by physician [facility] Control Systems Drafting Officer Rm [facility] Start: 10-30-2021 End: 10-30-2021 Subsequent hospital visit by physician Ronan Rodriguez MD Work Phone: [facility] PULP TESTER Start: 10-27-2021 End: 10-27-2021 General Ena Fung ASPHALT 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 Work Phone: [facility] Work Phone: Start: 10-27-2021 End: 10-27-2021 [facility]QHC visit, estab pt Ena Fung ASPHALT 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 Work Phone: [facility] Work Phone: Start: 10-27-2021 End: 10-27-2021 General Ena Fung ASPHALT 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 Work Phone: [facility] Work Phone: Start: 10-20-2021 End: 10-23-2021 Evaluation and management of inpatient ENA FUNG [facility] Start: 10-19-2021 End: 10-23-2021 Evaluation and management of inpatient Janae Oropeza MD Work Phone: [facility] Comment on above: Cerebrovascular acci dent (CVA), unspecified mechanism (HCC) (Primary Dx) Start: 10-19-2021 End: 10-19-2021 Emergency department patient visit Olaf Pineda MD Work Phone: [facility] ED Comment on above: Cerebrovascular acci dent (CVA), unspecified mechanism (HCC) (Primary Dx); Acute left-sided weakness; Transient diplopia; Headache above the eye region Start: 10-13-2021 End: 10-13-2021 General Ronda Dorsey [facility] Work Phone: [facility] Work Phone: Start: 10-13-2021 End: 10-13-2021 FQHC visit, estab pt Ena Kenton [place] Work Phone: [facility] Work Phone: Start: 10-06-2021 End: 10-07-2021 Emergency department patient visit Santhosh Schwab MD Work Phone: [facility] Comment on above: Other chest pain (Pr imary Dx) Start: 08-18-2021 End: 08-22-2021 Patient encounter status [facility] Schedule [facility] PRE ADMIT Start: 08-18-2021 End: 08-22-2021 Subsequent hospital visit by physician [facility] Covid19 Pat Screening Schedule [facility] Comment on above: Preop testing (Prima ry Dx) Start: 08-14-2021 End: 08-18-2021 Patient encounter status Geoff Chu MD Work Phone: [facility] Start: 08-14-2021 End: 08-18-2021 Subsequent hospital visit by physician Geoff Chu MD Work Phone: [facility] Comment on above: Pre-op testing Start: 07-24-2021 End: 07-24-2021 Patient encounter procedure Ena Kenton CHOU - ASPHALT 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 Work Phone: [facility] Start: 07-24-2021 End: 07-24-2021 Subsequent hospital visit by physician Ena Oviedo ASPHALT 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 Work Phone: [facility] Comment on above: Vulval lesion; Women's annual routine gynecological examination Start: 07-08-2021 End: 07-08-2021 Emergency department patient visit Ena Kenton CHOU - ASPHALT 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 Work Phone: [facility] ED Comment on above: Right arm pain (Prim james Dx) Start: 06-19-2021 End: 06-19-2021 Subsequent hospital visit by physician Nat Mora MD Work Phone: [facility] PULP TESTER Comment on above: Arrived Start: 06-06-2021 End: 06-06-2021 Emergency department patient visit Mariana Adames DO Work Phone: [facility] ED Comment on above: Stable angina (HCC) (Primary Dx); Dizziness Start: 05-22-2021 End: 05-22-2021 Emergency department patient visit Ruiz Romero MD Work Phone: [facility] ED Comment on above: Acute left-sided low back pain, unspecified whether sciatica present (Primary Dx) Start: 05-08-2021 End: 05-08-2021 General Ena Fung [employer] 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 Work Phone: [facility] Work Phone: Start: 05-08-2021 End: 05-08-2021 General Ena Fung [employer]HALT 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 Work Phone: [facility] Work Phone: Start: 05-08-2021 End: 05-08-2021 General Ena Fung [employer]HALT 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 Work Phone: [facility] Work Phone: Start: 03-20-2021 End: 03-20-2021 Telemedicine consultation with patient Veronica Renteria [employer]HALT 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 Work Phone: [facility] Work Phone: Start: 03-20-2021 End: 05-08-2021 Telemedicine consultation with patient Ena Fung CNP Work Phone: [facility] Work Phone: Start: 03-20-2021 End: 03-20-2021 General Ena Fung [employer] 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 Work Phone: [facility] Work Phone: Start: 02-05-2021 End: 02-05-2021 FQHC visit, estab pt Ena Fung [employer] 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 Work Phone: [facility] Work Phone: Start: 01-29-2021 End: 01-29-2021 Emergency department patient visit Antony Borges MD Work Phone: [facility] ED Comment on above: Contusion of foot, u nspecified laterality, initial encounter (Primary Dx); Sprain of right ankle, unspecified ligament, initial encounter Start: 01-09-2021 End: 01-09-2021 Subsequent hospital visit by physician Ena Fung APRN - 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 Work Phone: [facility] Laboratory Comment on above: Hypokalemia; Rectal bleeding Start: 01-08-2021 End: 01-08-2021 FQHC visit, estab pt Ena Fung CNP Work Phone: [facility] Work Phone: Start: 01-01-2021 End: 01-03-2021 Evaluation and management of inpatient Olaf Pineda MD Work Phone: [facility] Comment on above: Rectal bleeding (Rowena aman Dx); Hypokalemia; Dehydration Start: 11-22-2020 End: 11-22-2020 Emergency department patient visit Santhosh Schwab MD Work Phone: [facility] ED Comment on above: Streptococcal sore t hroat (Primary Dx); Other elevated white blood cell count; Acute streptococcal pharyngitis Start: 09-19-2020 End: 09-23-2020 Subsequent hospital visit by physician Massiel Dailey Pat Screening Schedule [facility] PRE ADMIT Comment on above: Preoperative testing Start: 09-19-2020 End: 09-19-2020 Subsequent hospital visit by physician Ena Fung [facility] Laboratory Comment on above: Right sided abdomina l pain Start: 09-04-2020 End: 09-04-2020 Established patient Oliva Dia Work Phone: [facility] Work Phone: Start: 09-04-2020 End: 09-04-2020 Established patient Ena Fung Work Phone: [facility] Work Phone: Start: 08-27-2020 End: 08-29-2020 Evaluation and management of inpatient Mariana Adames Work Phone: [facility] MED SURG Comment on above: Abdominal pain, righ t lower quadrant (Primary Dx); Non-intractable vomiting with nausea, unspecified vomiting type Start: 07-05-2020 End: 07-05-2020 Subsequent hospital visit by physician [facility] Stress Room [facility] Stress Lab Comment on above: Arrived Start: 07-04-2020 End: 07-04-2020 Subsequent hospital visit by physician [facility] Stress Room [facility] Stress Lab Comment on above: Canceled (Provider) Atypical chest pain; Palpitations; ASHD (arteriosclerotic heart disease); S/P PTCA (percutaneous transluminal coronary angioplasty); Essential hypertension; Family history of premature CAD; Tobacco abuse counseling; Mixed hyperlipidemia; MATT (obstructive sleep apnea); Obesity (BMI 30.0-34.9) Start: 06-17-2020 End: 06-17-2020 Emergency department patient visit [facility] ED Comment on above: Chest pain, unspecif ied type (Primary Dx) Start: 06-04-2020 End: 06-04-2020 Telemedicine consultation with patient Tao Reece Work Phone: [facility] Work Phone: Start: 05-02-2020 End: 05-02-2020 Patient encounter procedure Oliva Dia Work Phone: [facility] Work Phone: Start: 05-02-2020 End: 05-02-2020 Telemedicine consultation with patient Ena Fung Work Phone: [facility] Work Phone: Start: 04-28-2020 End: 04-28-2020 Emergency department patient visit [facility] ED Comment on above: Laceration of right little finger without foreign body without damage to nail, initial encounter (Primary Dx) Start: 02-22-2020 End: 02-22-2020 Subsequent hospital visit by physician Ena Fung [facility] Laboratory Comment on above: Vulvar cyst Start: 02-19-2020 End: 02-19-2020 [facility] Sleep Center Comment on above: Arrived Start: 02-14-2020 End: 02-14-2020 Subsequent hospital visit by physician [facility] Drawing Room [facility] Laboratory Comment on above: Hot flashes Pre-op testing Start: 01-24-2020 End: 01-24-2020 Subsequent hospital visit by physician Ena Fung [facility] Laboratory Comment on above: Women's annual routi ne gynecological examination Start: 01-15-2020 End: 01-15-2020 Telemedicine consultation with patient Ena Fung Work Phone: [facility] Work Phone: Start: 01-11-2020 End: 01-11-2020 Subsequent hospital visit by physician [facility] 1 [facility] Sleep Center Start: 12-29-2019 End: 12-30-2019 Subsequent hospital visit by physician Michael Arroyo Work Phone: [facility] CAR 2 Comment on above: S/P PTCA (percutaneo us transluminal coronary angioplasty) Start: 12-29-2019 End: 12-29-2019 Subsequent hospital visit by physician Rl Blanc Work Phone: [facility] PULP TESTER Start: 12-28-2019 End: 12-29-2019 Evaluation and management of inpatient Rl Tirso Blanc Work Phone: [facility] PULP TESTER Start: 11-23-2019 End: 11-23-2019 Telemedicine consultation with patient Ena Fung Work Phone: [facility] Work Phone: Start: 10-20-2019 End: 10-20-2019 General Oliva Dia Work Phone: [facility] Work Phone: Start: 10-20-2019 End: 10-20-2019 Telemedicine consultation with patient Ena Fung Work Phone: [facility] Work Phone: Start: 10-09-2019 End: 10-10-2019 Evaluation and management of inpatient Terrence Lyle Work Phone: [facility] Comment on above: Stroke-like symptoms (Primary Dx) Start: 08-29-2019 End: 08-29-2019 Emergency department [facility] Comment on above: Benign paroxysmal po sitional vertigo of left ear (Primary Dx) Start: 08-21-2019 End: 08-21-2019 Emergency department patient visit Janae Landon MD Work Phone: [facility] ED Comment on above: Chest pain, unspecif ied type (Primary Dx); Dizziness Start: 06-08-2019 End: 06-08-2019 Emergency department patient visit Mariana Adames Work Phone: [facility] ED Comment on above: Nausea vomiting and diarrhea (Primary Dx) Start: 04-19-2019 End: 04-21-2019 Evaluation and management of inpatient Janae Austinrea Work Phone: [facility] CAR 2 Comment on above: Stroke-like symptoms (Primary Dx) Start: 04-19-2019 End: 04-19-2019 Emergency department patient visit [facility] ED Comment on above: Acute nonintractable headache, unspecified headache type (Primary Dx); Perioral numbness Start: 06-23-2018 Office outpatient vi sit 15 minutes Ena Fung Other [facility] Start: 04-26-2018 Office outpatient vi sit 15 minutes Ena Fung Other [facility] Start: 04-26-2018 Medical Ena Fung Other [facility] Start: 01-20-2018 End: 01-20-2018 Office outpatient visit 15 minutes Ena Fung Other [facility] Start: 10-15-2017 End: 10-15-2017 Medical Louis Bustos Other [facility] Start: 10-05-2017 Mammogram, both breasts [facility] Start: 10-05-2017 End: 10-05-2017 Office outpatient visit 15 minutes Ena Fung Other [facility] Start: 10-05-2017 Polysom 6/>yrs sleep 4/> addl binh attnd [facility] Start: 10-05-2017 Polysom 6/>yrs sleep w/cpap 4/> [facility] Start: 03-23-2017 Laboratory examinati on, unspecified Ena Fung [facility] Start: 03-23-2017 Routine general medi gabriella examination at a health care facility Ena Fung [facility] Start: 03-23-2017 End: 03-23-2017 Initial preventive medicine new patient 40-64yrs Ena Fung Other [facility] Procedures Date Procedure Procedure Detail Performing Clinician Start: 08-20-2024 ECG 12-LEAD Brock ARMIJO Work Phone: Start: 03-12-2024 Assay of troponin quantitative Elizabeth Stoddard CLINICAL EDUCATION CONSULTANT - [facility] Work Phone: Start: 03-12-2024 Radiologic exam chest single view Otto Ferrer MD Work Phone: Start: 03-12-2024 Basic metabolic panel calcium total Jaxson Ferrer MD Work Phone: Start: 03-12-2024 Ecg routine ecg w/least 12 lds w/i&r Jaxson Ferrer MD Work Phone: Start: 02-08-2024 Asthma Control Test/Baseline Evaluation Ena Fung 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 Work Phone: Start: 02-08-2024 Current tobacco non-user cad cap copd pv dm Ena Fung [employer] 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 Work Phone: Start: 02-08-2024 Drug test prsmv read direct optical obs pr date Ena Fung [employer] 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 Work Phone: Start: 01-27-2024 Most recent diastol blood pres >/equal 90 mm hg Ena Fung [employer] 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 Work Phone: Start: 01-27-2024 Most recent systolic blood pres>/equal 140 mm hg Ena Fung [employer] 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 Work Phone: Start: 01-27-2024 Pt-focused hlth risk assmt score doc stnd instrm Ena Fung [employer] 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 Work Phone: Start: 01-11-2024 Hysterectomy Ena Fung [employer] 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 Work Phone: Start: 12-23-2023 Assay of troponin quantitative Jaxson dias MD Work Phone: Start: 12-23-2023 Radiologic exam chest 2 views Jaxson Schaeffer dd, MD Work Phone: Start: 12-23-2023 Assay of magnesium Jaxson Ferrer MD Work Phone: Start: 12-23-2023 Ecg routine ecg w/least 12 lds w/i&r Jaxson Ferrer MD Work Phone: Start: 09-07-2023 Asthma discharge plan present Ena doherty [employer] 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 Work Phone: Start: 09-07-2023 Current tobacco non-user cad cap copd pv dm Ena Fung [employer] 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 Work Phone: Start: 09-07-2023 Iaadiadoo influenza Ena Fung [employer] 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 Work Phone: Start: 09-07-2023 Most recent diastolic blood pressure 80-89 mm hg Ena Fung [employer] 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 Work Phone: Start: 09-07-2023 Most recent systolic blood pressure <130 mm hg Ena Fung [employer] 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 Work Phone: Start: 08-20-2023 Current tobacco non-user cad cap copd pv dm Vicky Jakub [employer] 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 Work Phone: Start: 08-20-2023 Most recent diastolic blood pressure < 80 mm hg Vicky Call [employer]HALT 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 Work Phone: Start: 08-20-2023 Most recent systolic blood press 130-139mm hg Vicky Call [employer] 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 Work Phone: Start: 08-12-2023 Ct abdomen & pelvis w/contrast material Crystal Hitchcock PA-C Work Phone: Start: 08-12-2023 Radiologic exam chest single view Otto Ferrer MD Work Phone: Start: 08-12-2023 Ecg routine ecg w/least 12 lds w/i&r Jaxson Ferrer MD Work Phone: Start: 08-12-2023 Comprehensive metabolic panel Crystal avila PA-C Work Phone: Start: 08-04-2023 Current tobacco non-user cad cap copd pv dm Ena Fung [employer] 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 Work Phone: Start: 08-04-2023 Most recent diastolic blood pressure 80-89 mm hg Ena Fung [employer] 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 Work Phone: Start: 08-04-2023 Most recent systolic blood press 130-139mm hg Ena Fung [employer] 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 Work Phone: Start: 08-04-2023 Psychotherapy w/patient 30 minutes Kaitl in Short LISWS Work Phone: Start: 07-20-2023 Iaad ia streptococcus group a Lisa A Bobrov DO Work Phone: Start: 03-05-2023 End: 03-05-2023 Radex wrist complete minimum 3 views Amy Jorge Gonsalez DO Work Phone: Start: 02-22-2023 Ct abdomen & pelvis w/contrast material Crystal Hitchcock PA-C Work Phone: Start: 02-22-2023 Urnls dip stick/tablet reagent auto microscopy Jaxson Ferrer MD Work Phone: Start: 02-22-2023 Comprehensive metabolic panel Jaxson Schaeffer dd, MD Work Phone: Start: 02-01-2023 Most recent diastolic blood pressure 80-89 mm hg Ena Fung [employer] 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 Work Phone: Start: 02-01-2023 Most recent systolic blood pressure <130 mm hg Ena Fung [employer] 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 Work Phone: Start: 12-21-2022 Most recent diastolic blood pressure < 80 mm hg Ena Fung [employer] 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 Work Phone: Start: 12-21-2022 Most recent systolic blood pressure <130 mm hg Ena Fung [employer] 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 Work Phone: Start: 12-21-2022 End: 12-21-2022 Radex [...] 2d w/wom-mode compl spec&colr d Caroline Carrion PA-C Work Phone: Start: 08-20-2022 Cardiac catheterization Ronan [...] 05-07-2022 Mri spinal canal cervical w/o contrast sana Cohen MD Work Phone: Start: 05-01-2022 End: 05-01-2022 Radex elbow complete minimum 3 views Thad Berrios MD Start: 05-01-2022 End: 05-01-2022 Ct cervical spine w/o contrast material Thad Berrios MD Start: 05-01-2022 Ct head/brain w/o contrast material Thad Berrios MD Start: 04-13-2022 Most recent diastolic blood pressure 80-89 mm hg Ena Prateren [employer]HALT 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 Work Phone: Start: 04-13-2022 Most recent systolic blood pressure <130 mm hg Ena Fung [employer]HALT 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 Work Phone: Start: 04-13-2022 Psychotherapy w/patient 30 minutes Jyotsna Dorsey [facility] Work Phone: Start: 02-03-2022 Us abdominal real time w/image limited Ena Fung 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: Start: 01-30-2022 Blood occult fecal hgb deter ia qual feces 1-3 Ena Fung [employer] 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 Work Phone: Start: 01-30-2022 Hernia repair Ena Kenton [employer]HALT 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 Work Phone: Start: 01-30-2022 Hysterectomy Ena Kenton [employer]HALT 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 Work Phone: Start: 01-30-2022 Most recent diastolic blood pressure < 80 mm hg Ena Kenton [employer]HALT 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 Work Phone: Start: 01-30-2022 Most recent systolic blood pressure <130 mm hg Ena Kenton [employer]HALT 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 Work Phone: Start: 01-30-2022 Psychotherapy w/patient 30 minutes Jyotsna rine Dorsey [facility] Work Phone: Start: 12-19-2021 COVID-19, RAPID Santhosh Schwab MD Work Phone: Start: 12-19-2021 Iaadiadoo streptococcus group a Santhosh Schwab MD Work Phone: Start: 11-26-2021 Most recent diastolic blood pressure < 80 mm hg Enajosefa Fung [employer]HALT 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 Work Phone: Start: 11-26-2021 Most recent systolic blood pressure <130 mm hg Enajosefa Prateren [employer]HALT 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 Work Phone: Start: 11-21-2021 End: 11-21-2021 Radex spine [facility] Work Phone: Start: 11-06-2021 Cardiac catheterization Ronan Rodriguez MD Work Phone: Start: 10-30-2021 Cardiac catheterization Ronan Rodriguez MD Work Phone: Start: 10-27-2021 Most recent diastolic blood pressure < 80 mm hg Enajosefa Fung [employer]HALT 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 Work Phone: Start: 10-27-2021 Most recent systolic blood pressure <130 mm hg Ena Fung [employer]HALT 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 Work Phone: Start: 10-23-2021 BASIC METABOLIC PANEL [...] cleared fda spec home use Ena Fung [employer]HALT 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 Work Phone: Start: 10-13-2021 Hysterectomy Ena Kenton [employer]HALT 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 Work Phone: Start: 10-13-2021 Most recent diastolic blood pressure < 80 mm hg Ena Fung [employer]HALT 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 Work Phone: Start: 10-13-2021 Most recent systolic blood pressure <130 mm hg Ena Fung [employer]HALT 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 Work Phone: Start: 10-13-2021 Psychotherapy w/patient 30 minutes Jyotsna Dorsey [facility] Work Phone: Start: 10-07-2021 STRESS TEST, [...] Work Phone: Start: 08-29-2021 Hysterectomy Ena Fung [employer]HALT 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 Work Phone: Start: 08-20-2021 H/O: surgery S/P [...] routine ecg w/least 12 lds w/i&r Corinne ARMIJO-Griffin Work Phone: Start: 07-08-2021 Dup-scan xtr veins unilateral/limited study Corinne ARMIJO-Griffin Work Phone: Start: 06-19-2021 End: 06-19-2021 Cardiac catheterization Ronan Rodriguez MD Work Phone: Start: 06-06-2021 Assay of troponin quantitative Corinne ARMIJO-C Work Phone: Start: 06-06-2021 Radex shoulder complete minimum 2 views Corinne ARMIJO-Griffin Work Phone: Start: 06-06-2021 Basic metabolic panel calcium total Mariana Adames DO Work Phone: Start: 06-06-2021 Radiologic exam chest single view Rigoberto Adames DO Work Phone: Start: 06-06-2021 Ecg routine ecg w/least 12 lds w/i&r Mariana Adames DO Work Phone: Start: 05-22-2021 Ct abdomen & pelvis w/o contrast material Ruiz Romero MD Work Phone: Start: 05-22-2021 Urinalysis microscopic only Ruiz james MD Work Phone: Start: 05-22-2021 Urnls dip stick/tablet rgnt auto w/o microscopy Ruiz Romero MD Work Phone: Start: 02-05-2021 Most recent diastolic blood pressure 80-89 mm hg Ena Fung [facility] Work Phone: Start: 02-05-2021 Most recent systolic blood pressure <130 mm hg [facility] Work Phone: Start: 01-29-2021 End: 01-29-2021 Radex ankle complete minimum 3 views Antony Borges MD Work Phone: Start: 01-09-2021 Basic metabolic panel calcium total Erna Osman [facility] Work Phone: Start: 01-08-2021 Most recent diastol blood pres >/equal 90 mm hg Enajosefa Fung [facility] Work Phone: Start: 01-08-2021 Most recent systolic blood press 130-139mm hg Enajosefa Fung [facility] Work Phone: Start: 01-03-2021 Blood occult peroxidase actv qual other sources Alvino Zavala MD Work Phone: Start: 01-03-2021 Esophagogastroduodenoscopy Alvino doherty MD Work Phone: Start: 01-03-2021 Assay of magnesium Erna Osman [facility] Work Phone: Start: 01-03-2021 BASIC METABOLIC PANEL [...] dip stick/tablet reagent auto microscopy Alvino P Kuivinen Work Phone: Start: 09-19-2020 Assay of amylase Alvino P Kuivinen Work Phone: Start: 09-19-2020 Assay of lipase Alvino P Kuivinen Work Phone: Start: 09-19-2020 Blood count complete auto&auto difrntl wbc Alvino P Kuivinen Work Phone: Start: 09-19-2020 Comprehensive metabolic panel Alvino P Kui vinen Work Phone: Start: 09-19-2020 Sedimentation rate rbc automated Alvino P Kueruminen Work Phone: Start: 09-04-2020 Cholecystectomy Ena Fung Start: 09-04-2020 Cholecystectomy Ena Fung [employer]HALT 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 Work Phone: Start: 09-04-2020 Diast bp >/= 90 mm hg Ena Fung Work Phone: Start: 09-04-2020 Hemoglobin glycosylated a1c Ena Fung Work Phone: Start: 09-04-2020 Hepatitis c antibody Ena Fung Work Phone: Start: 09-04-2020 Hysterectomy Ena Fung [employer] 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 Work Phone: Start: 09-04-2020 Iaad ia hiv-1 ag w/hiv-1 & hiv-2 antbdy single Ena Fung Work Phone: Start: 09-04-2020 Psychotherapy w/patient 30 minutes Kaitl in Short Work Phone: Start: 09-04-2020 Syst bp >/= 140 mm hg Ena Fung Work Phone: Start: 09-04-2020 Total abdominal hysterect w/wo rmvl tube ovary Ena Fung Start: 08-29-2020 BASIC METABOLIC PANEL W/ REFLEX TO MG FOR LOW K Erna Cannoners Work Phone: Start: 08-29-2020 Blood count complete auto&auto difrntl wbc Erna Osman Work Phone: Start: 08-28-2020 Ct abdomen & pelvis w/contrast material Dipakkumar P Gomez Work Phone: Start: 08-28-2020 Assay of magnesium Erna A [employer] Work Phone: Start: 08-28-2020 BASIC METABOLIC PANEL W/ REFLEX TO MG FOR LOW K Erna A Mcmillan Work Phone: Start: 08-28-2020 Blood count complete auto&auto difrntl wbc Erna A [employer] Work Phone: Start: 08-27-2020 Blood count complete [...] Adames Work Phone: Start: 07-04-2020 Lipid panel Ali F O Ahmad Work Phone: Start: 07-04-2020 Basic metabolic panel calcium total Ali F O Ahmad Work Phone: Start: 07-04-2020 Blood count complete automated Ali F O A hmad Work Phone: Start: 07-04-2020 Echo tthrc r-t 2d w/wom-mode compl spec&colr d Ali F O Ahmad Work Phone: Start: 06-17-2020 Assay of troponin quantitative Jose Juan Kebede und Work Phone: Start: 06-17-2020 Assay of troponin quantitative Jose Juan Rodriguez Work Phone: Start: 06-17-2020 Natriuretic peptide Jose Juan Ortega Work Phone: Start: 06-17-2020 Prothrombin time Jose Juan Ortega Work Phone: Start: 06-17-2020 Thromboplastin time partial plasma/whole blood Jose Juan Ortega Work Phone: Start: 06-17-2020 Ecg routine ecg w/least 12 lds w/i&r Olaf Pineda Work Phone: Start: 06-17-2020 End: 06-17-2020 Blood count complete auto&auto difrntl wbc Olaf Pineda Work Phone: Start: 06-17-2020 Radiologic exam chest single view Lakshmi Pineda Work Phone: Start: 04-28-2020 Radex hand 2 views Jose Juan Ortega Work Phone: Start: 04-28-2020 LACERATION REPAIR Jose Juan Ortega Work Phone: Start: 02-14-2020 Assay of estradiol Geoff Chu Work Phone: Start: 02-14-2020 Assay of thyroid stimulating hormone tsh Geoff Kailsah Chu Work Phone: Start: 02-14-2020 Gonadotropin follicle stimulating hormone Geoff Kailash Chu Work Phone: Start: 01-15-2020 no recent change in medical history Ena Fung CNP Work Phone: Start: 12-29-2019 Coagulation time activated Ali F O Ahmad Work Phone: Start: 12-29-2019 DIAGNOSTIC CARDIAC PULP TESTER PROCEDURE Ameer Promiserahul Work Phone: Start: 12-29-2019 COVID-19 Amjosefasamir Promiserahul Work Phone: Start: 12-29-2019 DIAGNOSTIC CARDIAC PULP TESTER PROCEDURE Ronan Rodriguez Work Phone: Start: 12-29-2019 BASIC METABOLIC PANEL W/ REFLEX TO MG FOR LOW K Erna Osman Work Phone: Start: 12-29-2019 Lipid panel Erna Osman Work Phone: Start: 12-29-2019 Ecg routine ecg w/least 12 lds w/i&r Erna Osman Work Phone: Start: 12-29-2019 EKG REPORT Hpf Scanning Start: 12-28-2019 Radiologic exam chest 2 views Erna Osman Work Phone: Start: 12-28-2019 Assay of troponin quantitative Erna Osman Work Phone: Start: 12-28-2019 Blood count complete auto&auto difrntl wbc Erna Osman Work Phone: Start: 12-28-2019 Blood count complete automated Erna Osman Work Phone: Start: 10-20-2019 Patient gave verbal consent for telehealth Ena Fung Start: 10-20-2019 Psychotherapy w/patient 30 minutes Kaitl in Short Work Phone: Start: 10-10-2019 Assay of homocysteine Samer Eduardo Oconnor Work Phone: Start: 10-10-2019 Blood count complete automated Samer Abd ul Elvin Work Phone: Start: 10-10-2019 Assay of troponin quantitative Mohammad Hay Work Phone: Start: 10-09-2019 Assay of troponin quantitative Mohammad Hay Work Phone: Start: 10-09-2019 Ecg routine ecg w/least 12 lds w/i&r Mohammad Hay Work Phone: Start: 10-09-2019 EKG REPORT Hpf Scanning Start: 10-09-2019 Assay of troponin quantitative Samer Abd ul Elvin Work Phone: Start: 10-09-2019 Echo tthrc r-t 2d w/wom-mode compl spec&colr d Samer Eduardodemetrice Gibsoneem Work Phone: Start: 10-09-2019 Mri brain brain [...] Start: 04-21-2019 Glucose blood reagent strip Terrence Lyle Work Phone: Start: 04-21-2019 Glucose blood reagent strip Terrence Ruizderon Work Phone: Start: 04-21-2019 Glucose blood reagent strip Terrence Lyle Work Phone: Start: 04-20-2019 Glucose blood reagent strip Terrence Lyle Work Phone: Start: 04-20-2019 Glucose blood reagent strip Terrence Lyle Work Phone: Start: 04-20-2019 MANDY PROFILE Samer Eduardodemetrice Oconnor Work Phone: Start: 04-20-2019 Antinuclear antibodies mandy Samer Eduardo K arelouis Work Phone: Start: 04-20-2019 Basic metabolic panel calcium total Samer Eduardodemetrice Oconnor Work Phone: Start: 04-20-2019 Blood count complete automated Samer Abd ul Elvin Work Phone: Start: 04-20-2019 Hemoglobin glycosylated a1c Samer Eduardo Elvin Work Phone: Start: 04-20-2019 Rheumatoid factor quantitative Samer Abd ul Elvin Work Phone: Start: 04-20-2019 Sedimentation rate rbc automated Samer A bddemetrice Oconnor Work Phone: Start: 04-20-2019 Mri brain [...] routine ecg w/least 12 lds w/i&r Mary Dow Work Phone: Start: 04-19-2019 Assay of troponin quantitative Mary churchill Work Phone: Start: 04-19-2019 Ct angiography neck w/contrast/noncontrast Mary Dow Work Phone: Start: 04-19-2019 Ecg routine ecg w/least 12 lds w/i&r Mary Dow Work Phone: Start: 04-19-2019 Assay of magnesium Mary Dow Work Phone: Start: 04-19-2019 Assay of troponin quantitative Mary churchill Work Phone: Start: 04-19-2019 Basic metabolic panel calcium total Mary Dow Work Phone: Start: 04-19-2019 Blood count complete automated Mary churchill Work Phone: Start: 04-19-2019 Natriuretic peptide Mary [...] 01-20-2018 Basic metabolic panel calcium total Ena Fung Start: 01-20-2018 Lipid panel Ena Fung Start: [...] 09-26-2030 Screening for malignant neoplasm of colon [facility] Start: 04-28-2030 DTaP/Tdap/Td vaccine (3 - Td or Tdap) DTaP/Tdap/Td vaccine (3 - Td or Tdap) [facility] Start: 04-28-2030 DTaP/Tdap/Td vaccine (3 - Td) DTaP/Tdap/Td vaccine (3 - Td) [place], [place] Start: 04-29-2028 Lipid panel Lipids [facility] Start: 01-17-2026 Diabetes screen Diabetes screen [facility] Start: 11-29-2025 Shingles Vaccine (1 of 2) Shingles Vaccine (1 of 2) [facility] laura Work Phone: Start: 01-09-2025 Depression Monitoring Depression Monitoring [facility] Start: 06-09-2024 Diabetes screen Diabetes screen [facility] Start: 05-10-2024 DTaP/Tdap/Td vaccine (2 - Td) DTaP/Tdap/Td vaccine (2 - Td) [place] Start: 04-29-2024 Lipid panel Lipids [facility] Start: 04-25-2024 End: 04-25-2024 Nursing evaluation of patient and report 04/25/2024 8:30 AM EDT Nurse Only [facility] [address] [place] [address] 3 month home check [facility] Comment on above: 3 month home check Start: 04-18-2024 End: 04-18-2024 Patient encounter procedure 04/18/2024 9:20 AM EDT Office Visit [facility] [address] [place] [address] Nat Mora MD [address] [facility] [address] 3 month [facility] Comment on above: 3 month Start: 03-16-2024 End: 03-16-2024 Patient encounter procedure 03/16/2024 9:00 AM EDT Office Visit [facility] [address] [facility] [address] [place] [address] Geoff Chu MD [address] [place] [address] [address] [place] [address] med check [facility] Comment on above: med check Start: 03-07-2024 FQHC visit, estab pt [facility] Start: 02-22-2024 FQHC visit, estab pt Medical Established [facility]: Start: 02-17-2024 Influenza vaccination [facility] Start: 02-08-2024 End: 02-08-2024 Patient education based on identified need [facility] Start: 02-03-2024 FQHC visit, estab pt Medical Established [facility] Work Phone: Start: 01-27-2024 End: 01-27-2024 Patient education based on identified need [facility] Start: 01-25-2024 End: 01-25-2024 Nursing evaluation of patient and report 01/25/2024 8:30 AM EDT Nurse Only [facility] [address] [address] 3 month home check [facility] Comment on above: 3 month home check Start: 01-21-2024 End: 01-21-2024 Patient encounter procedure 01/21/2024 9:00 AM EDT Office Visit [facility] [address] [place] [address] Nat Mora MD [address] [place] [address] [place] [address] 6 week [facility] Comment on above: 6 week Start: 01-19-2024 Lipid panel Lipids [facility] Start: 01-13-2024 End: 01-13-2024 Patient encounter procedure 01/13/2024 9:15 AM EDT Office Visit [facility] [address] [place] [id number] Luis Arredondo APRN - RIYA [address] [facility] [address] [place] [phone] med check / WH pt [facility] Comment on above: med check / WH pt Start: 10-26-2023 End: 10-26-2023 Nursing evaluation of patient and report 10/26/2023 8:30 AM EDT Nurse Only [facility] [address] [address] 3 month home check [facility] Comment on above: 3 month home check Start: 09-07-2023 FQHC visit, estab pt Medical Established Patient Health [facility] Work Phone: Start: 09-07-2023 End: 09-07-2023 Patient education based on identified need [facility] Start: 08-20-2023 [facility] Work Phone: Comment on above: Note: Please make a referral to: Start: 08-20-2023 End: 08-20-2023 Patient education based on identified need [facility] Start: 08-04-2023 Admission to same day surgery center General Surgery [facility] Work Phone: Comment on above: Note: Please make a referral to: Start: 08-04-2023 End: 08-04-2023 Patient education based on identified need [facility] Start: 08-02-2023 End: 08-02-2023 Patient encounter procedure [facility] Comment on above: 6 month/lvm mm Start: 04-27-2023 End: 04-27-2023 Nursing evaluation of patient and report 04/27/2023 Nurse Only Cardiology [facility] Start: 03-23-2023 End: 03-23-2023 Patient encounter procedure 03/23/2023 Office Visit Cardiology Nat Mora MD [address] [place] [id number] [facility] Start: 03-19-2023 COVID-19 Vaccine ( season) COVID-19 Vaccine ( season) [facility] Start: 03-09-2023 End: 03-09-2023 Patient encounter procedure 03/09/2023 Office Visit Gastroenterology Sirena Mehta, CLINICAL EDUCATION CONSULTANT - ASPHALT 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 [address] [facility] [address] [place] [address] [facility] Start: 02-16-2023 Influenza vaccination [facility] Start: 02-09-2023 Dermatology [facility] Work Phone: Comment on above: Note: Please make a referral to: Start: 02-01-2023 End: 02-01-2023 Patient education based on identified need [facility] Start: 01-30-2023 Screening for malignant neoplasm of colon FIT/FOBT: Average risk [facility] Start: 01-28-2023 End: 01-28-2023 Patient encounter procedure 01/28/2023 Office Visit Gastroenterology Sirena Mehta, CLINICAL EDUCATION CONSULTANT - ASPHALT 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 [address] [place] [address] [facility] Start: 01-26-2023 End: 01-26-2023 Nursing evaluation of patient and report 01/26/2023 Nurse Only Cardiology [facility] Start: 01-25-2023 End: 01-25-2023 Patient encounter procedure 01/25/2023 Office Visit Cardiology Nat Mora MD [address] [address] [facility] Start: 01-23-2023 Screening for malignant neoplasm of cervix Cervical cancer screen [facility] [place], [place] Start: 12-21-2022 FQHC visit, estab pt Medical Established Patient Health [facility] Work Phone: Start: 12-21-2022 End: 12-21-2022 Patient education based on identified need [facility] Start: 12-07-2022 End: 12-07-2022 Patient encounter procedure [facility] Start: 11-19-2022 End: 11-19-2022 Patient education based on identified need [facility] Start: 10-27-2022 End: 10-27-2022 Nursing evaluation of patient and report 10/27/2022 Nurse Only Cardiology [facility] Start: 10-23-2022 Creatinine measurement [facility] Start: 10-23-2022 Potassium [Moles/volume] in Serum or Plasma Potassium [facility] Start: 10-23-2022 Potassium monitoring [facility] Start: 10-20-2022 Hemoglobin A1c measurement A1C test (Diabetic or Prediabetic) [facility] Start: 10-20-2022 Lipid panel [facility] Start: 10-19-2022 Creatinine measurement Creatinine [facility] Start: 10-19-2022 Potassium monitoring Potassium [facility] Start: 10-08-2022 Diabetes screen Diabetes screen [facility] [place], [place] Start: 10-07-2022 Lipid panel Lipid screen [facility] Start: 10-06-2022 Creatinine measurement Creatinine monitoring [email or web address] Start: 10-06-2022 Potassium monitoring Potassium monitoring [email or web address] Start: 08-21-2022 Creatinine measurement Creatinine monitoring [email or web address] Start: 08-21-2022 Potassium monitoring Potassium monitoring [email or web address] Start: 08-05-2022 Creatinine measurement Creatinine monitoring [email or web address] Start: 08-05-2022 Potassium monitoring Potassium monitoring [facility] Start: 07-28-2022 End: 07-28-2022 Nursing evaluation of patient and report 07/28/2022 Nurse Only Cardiology [facility] Start: 07-16-2022 FQHC visit, estab pt Medical Established Patient [facility] Work Phone: Start: 06-09-2022 Lipid panel Lipid screen [facility] Start: 06-06-2022 Creatinine measurement Creatinine monitoring [email or web address] Start: 06-06-2022 Potassium monitoring Potassium monitoring [facility] Start: 05-28-2022 End: 05-28-2022 Patient encounter procedure 05/28/2022 Office Visit Cardiology Nat Mora MD [address] [place] [id number] [facility] Start: 05-13-2022 EKG 12 lead ([id number]) [facility] Start: 05-11-2022 End: 05-11-2022 Patient encounter procedure 05/11/2022 Office Visit Neurology Gabo Cohen MD [address] [place] [id number] [facility] Start: 05-07-2022 End: 05-07-2022 Patient encounter procedure 05/07/2022 Appointment Radiology [facility] Start: 04-28-2022 End: 04-28-2022 Nursing evaluation of patient and report 04/28/2022 Nurse Only Cardiology [facility] Start: 04-27-2022 FQHC visit, estab pt Medical Established Patient [facility] Work Phone: Start: 04-20-2022 Diabetes screen Diabetes screen [facility] [place], [place] Start: 04-13-2022 End: 04-13-2022 Patient education based on identified need [facility] Start: 03-19-2022 Influenza vaccination [facility] Start: 03-16-2022 End: 03-16-2022 Patient encounter procedure 03/16/2022 Office Visit Neurology Gabo Cohen MD [address] [place] [address] [facility] Start: 03-01-2022 [facility] Start: 02-16-2022 Influenza vaccination Flu vaccine (#1) [facility] Start: 01-30-2022 End: 01-30-2022 Patient education based on identified need [facility] Start: 01-27-2022 FQHC visit, estab pt Medical Established Patient [facility] Work Phone: Start: 01-27-2022 End: 01-27-2022 Nursing evaluation of patient and report 01/27/2022 Nurse Only Cardiology [facility] Start: 01-12-2022 End: 01-12-2022 Patient encounter procedure 01/12/2022 Office Visit Neurology Gabo Cohen MD [address] [place] [address] [facility] Start: 01-09-2022 Creatinine measurement Creatinine monitoring [facility] Work Phone: Start: 01-09-2022 Potassium monitoring Potassium monitoring [facility] Work Phone: Start: 01-03-2022 Creatinine measurement Creatinine monitoring [facility] Work Phone: Start: 01-03-2022 Potassium monitoring Potassium monitoring [facility] Work Phone: Start: 01-03-2022 Screening for malignant neoplasm of colon FIT/FOBT: Average risk [facility] Start: 12-23-2021 End: 12-23-2021 Patient encounter procedure 12/23/2021 Office Visit Cardiology Nat Mora MD [address] [place] [address] [facility] Start: 12-09-2021 End: 12-09-2021 Nursing evaluation of patient and report 12/09/2021 Nurse Only Cardiology [facility] Start: 11-26-2021 End: 11-26-2021 Patient education based on identified need [facility] Start: 11-25-2021 End: 11-25-2021 Patient encounter procedure 11/25/2021 Office Visit Cardiology Nat Mora MD [address] [place] [address] [facility] Start: 11-22-2021 Creatinine measurement Creatinine monitoring [facility] Work Phone: Start: 11-22-2021 Potassium monitoring Potassium monitoring [facility] Work Phone: Start: 11-14-2021 End: 11-14-2021 Patient encounter procedure 11/14/2021 Office Visit Neurology Rashid Almeida MD [address] [place] [address] [facility] Start: 10-27-2021 FQHC visit, estab pt [facility] Work Phone: Comment on above: Note: Please make a referral to: OSWALD mcmahon [facility] Start: 10-27-2021 End: 10-27-2021 Patient education based on identified need [facility] Start: 10-23-2021 End: 10-23-2021 Patient encounter procedure 10/23/2021 Office Visit Cardiology Nat Mora MD [address] [place] [address] [place] [address] [facility] Start: 10-13-2021 End: 10-13-2021 Patient education based on identified need [facility] Start: 09-19-2021 Creatinine measurement Creatinine monitoring [facility] [employer] Phone: Start: 09-19-2021 Potassium monitoring Potassium monitoring [facility] [employer] Phone: Start: 09-16-2021 End: 09-16-2021 Admission to same day surgery center 09/16/2021 Surgery IP Unit Alvino Zavala MD [address] [place] [address] [address] [place] [address] EGD ESOPHAGOGASTRODUODENOSCOPY [facility] Comment on above: EGD ESOPHAGOGASTRODUODENOSCOPY Start: 09-16-2021 End: 09-16-2021 Esophagogastroduodenoscopy transoral diagnostic EGD ESOPHAGOGASTRODUODENOSCOPY ABD PAIN HX OF GASTRITIS 09/16/2021 9:30 AM EST [facility] Start: 09-16-2021 Subsequent hospital visit by physician 09/16/2021 Hospital Encounter IP Unit Alvino Zavala MD [address] [place] [address] [address] [place] [address] [facility] Start: 08-29-2021 Creatinine measurement Creatinine monitoring [facility] [employer] Phone: Start: 08-29-2021 Potassium monitoring Potassium monitoring [facility] [employer] Phone: Start: 08-27-2021 End: 08-27-2021 Patient encounter procedure 08/27/2021 Office Visit Obstetrics and Gynecology Geoff Chu MD [address] [place] [address] [facility] Start: 08-20-2021 End: 08-20-2021 Admission to same day surgery center 08/20/2021 Surgery IP Unit Geoff Chu MD [address] [place] [address] OOPHORECTOMY LAPAROSCOPIC-POSSIBLE LAPAROTOMY [facility] Comment on above: OOPHORECTOMY LAPAROSCOPIC-POSSIBLE LAPAR OTOMY Start: 08-20-2021 End: 08-20-2021 Oophorectomy partial/total uni/bi OOPHORECTOMY LAPAROSCOPIC RLQ PAIN 08/20/2021 9:50 AM EST [facility] Start: 08-20-2021 Subsequent hospital visit by physician 08/20/2021 Hospital Encounter IP Unit Geoff Chu MD [address] [place] [address] [facility] Start: 08-11-2021 COVID-19 Vaccine (2 - Booster for Moderna series) COVID-19 Vaccine (2 - Booster for Moderna series) [facility] Start: 07-14-2021 COVID-19 Vaccine (2 - Moderna 3-dose series) COVID-19 Vaccine (2 - Moderna 3-dose series) [facility] Start: 07-14-2021 COVID-19 Vaccine (2 - Moderna series) COVID-19 Vaccine (2 - Moderna series) [facility] Start: 07-04-2021 Creatinine measurement Creatinine monitoring [facility] [place] Start: 07-04-2021 Lipid panel Lipid screen [facility] Start: 07-04-2021 Potassium monitoring Potassium monitoring [facility] [place] Start: 06-25-2021 FQHC visit, estab pt Medical Established Patient [facility] Work Phone: Start: 06-09-2021 End: 06-09-2021 Patient encounter procedure 06/09/2021 Office Visit Cardiology Nat Mora MD [address] [place] [address] [facility] Start: 06-07-2021 Diabetes screen Diabetes screen [facility], [place] Start: 05-15-2021 SARS-CoV-2, FAUSTINA [facility] Start: 05-08-[address] up Testing [facility] Work Phone: Start: 04-15-2021 End: 04-15-2021 Patient encounter procedure 04/15/2021 Office Visit Cardiology Nat Mora MD [address] [place] [address] [facility] Start: 03-27-2021 SARS-CoV-2, FAUSTINA [facility] Start: 03-20-2021 End: 03-20-2021 Patient education based on identified need [facility] Start: 03-19-2021 Influenza vaccination [facility] Start: 03-07-2021 [facility] Start: 02-05-2021 End: 02-05-2021 Patient education based on identified need [facility] Start: 01-10-2021 End: 01-03-2022 Basic metabolic 2000 panel - Serum or Plasma Basic Metabolic Panel Lab Routine Hypokalemia Expected: 01/10/2021, Expires: 01/03/2022 [employer] Phone: Comment on above: Expected: 01/10/2021, Expires: 2 Start: 01-10-2021 End: 01-03-2022 CBC W Auto Differential panel - Blood CBC With Auto Differential Lab Routine Rectal bleeding Expected: 01/10/2021, Expires: 01/03/2022 [employer] Phone: Comment on above: Expected: 01/10/2021, Expires: 2 Start: 01-10-2021 Subsequent hospital visit by physician 01/10/2021 Hospital Encounter Echocardiography [facility] Echocardiography Start: 01-10-2021 End: 01-10-2021 Patient encounter procedure 01/10/2021 Appointment Stress Lab [facility] Stress Lab Start: 01-09-2021 End: 01-09-2021 Office Visit 01/09/2021 Office Visit Cardiology Nat Mora MD [address] [place] [address] [place] [address] [facility] Start: 01-08-2021 End: 01-08-2021 Patient education based on identified need [facility] Start: 12-28-2020 Creatinine measurement Creatinine monitoring [facility] [place] Start: 12-28-2020 Lipid panel [facility] [place] [place] Start: 12-28-2020 Potassium monitoring Potassium monitoring [employer] [place], [place] Start: 12-27-2020 Creatinine measurement Creatinine monitoring [facility] [place] Start: 12-27-2020 Potassium monitoring Potassium monitoring [facility] [place] Start: 11-29-2020 Screening for malignant neoplasm of colon [facility] Start: 10-08-2020 Lipid panel Lipid screen [facility] [place] Start: 10-08-2020 Lipid screen Lipid screen [employer] [place] Start: 09-26-2020 End: 09-26-2020 Hospital Encounter [facility] OR Comment on above: COLONOSCOPY DIAGNOSTIC Start: 09-05-2020 [facility] Work Phone: Start: 09-04-2020 End: 09-04-2020 Patient education based on identified need [facility] provided active listening, support and helped patient process through current symptoms and stressors related to family conflict. BHP/SUPERVISOR STOCK RANCH discussed resources for housing and supports with patient. ~BHP discussed potential benefit of counseling and supports. Patient is willing to reconsider meeting with a provider at another agency than she has in the past as she does not want all of the same services [facility] Start: 09-04-2020 End: 09-04-2020 Patient education based on identified need [facility] Start: 08-29-2020 Creatinine monitoring Creatinine monitoring [facility] [place] , [place] Start: 08-29-2020 Potassium monitoring Potassium monitoring [facility] [place], [place] Start: 08-27-2020 End: 08-27-2020 Office Visit 08/27/2020 Office Visit Cardiology Nat Mora MD [address] [place] [address] [place] [address] [facility] Start: 08-21-2020 Creatinine monitoring Creatinine monitoring [facility] Work Phone: Start: 08-21-2020 Potassium monitoring Potassium monitoring [facility] Work Phone: Start: 07-05-2020 End: 07-05-2020 Appointment 07/05/2020 Appointment Stress Lab [facility] Stress Lab Start: 06-12-2020 Medical Established Patient [facility] Work Phone: Start: 06-11-2020 SARS-CoV-2, FAUSTINA [facility] Work Phone: Start: 06-04-[address] up [address] [facility] Work Phone: Start: 05-09-2020 SARS-CoV-2, FAUSTINA [facility] Work Phone: Start: 05-03-[address] up Testing [facility] Work Phone: Start: 05-02-2020 End: 05-02-2020 Patient education based on identified need [facility] Start: 04-20-2020 Creatinine monitoring Creatinine monitoring [facility] , [place] Start: 04-20-2020 Potassium monitoring Potassium monitoring [facility], [place] Start: 03-19-2020 Influenza vaccination [facility], [place] Start: 02-22-2020 End: 02-22-2020 Ancillary Procedure [facility] Start: 02-20-2020 End: 02-20-2020 Office Visit 02/20/2020 Office Visit Cardiology Nat Mora MD [address] [place] [address] [facility] Start: 02-19-2020 End: 02-19-2020 Appointment 02/19/2020 Appointment Sleep Center [facility] Start: 02-07-2020 Creatinine monitoring Creatinine monitoring [facility] [place] Start: 02-07-2020 Lipid screen Lipid screen [place], [place] Start: 02-07-2020 Potassium monitoring Potassium monitoring [facility] [place] Start: 01-24-2020 End: 01-24-2020 Office Visit 01/24/2020 Office Visit Obstetrics and Gynecology Geoff Chu MD [address] [address] [facility] Start: 01-22-2020 Lipid 1996 panel [facility] Work Phone: Start: 01-11-2020 End: 01-11-2020 Appointment 01/11/2020 Appointment Sleep Center [facility] Sleep [facility] Start: 12-29-2019 Hospital Encounter 12/29/2019 Hospital Encounter IP Unit [employer] Start: 12-28-2019 End: 12-28-2019 Office Visit 12/28/2019 Office Visit Cardiology Nat Mora MD [address] [place] [address] [facility] Start: 12-21-2019 Medical Established Patient [facility] Work Phone: Start: 10-20-2019 Sleep Disorders [facility] Work Phone: Comment on above: Note: Please make a referral to: isac simon Start: 10-20-2019 End: 10-20-2019 Patient education based on identified need BHP offered active and supportive listening, normalized emotions and feelings, processed current stressors and explored coping and stress reducing skills. ~BHP attempted to discuss sleep hygiene strategies with patient including meditation, reducing caffeine use, increaing physical activity during the day as tolerated, and engaging in calming activities. Patient states that she has tried many things in the past and nothing has been sucessful. ~ [facility] Start: 10-06-2019 Screening for malignant neoplasm of breast Breast cancer screen KURTIS MEJIA [facility] Start: 06-20-2019 End: 06-20-2019 Office Visit 06/20/2019 Office Visit Cardiology Nat Mora MD [address] [place] [phone] [facility] Start: 06-05-2019 End: 06-05-2019 Office Visit 06/05/2019 Office Visit Cardiology Nat Mora MD [address] [place] [id number] [facility] Start: 05-22-2019 End: 05-22-2019 Office Visit 05/22/2019 Office Visit Neurology Mary Jane Oconnor MD [address], [place] [id number] [facility] Start: 03-19-2019 Influenza vaccination Flu vaccine (#1) [place], [place] Start: 02-04-2018 Hepatic function panel Liver function panel [facility] Start: 02-04-2018 Lipid panel Lipid panel [facility] Start: 01-25-2018 Hepatic function panel Liver function panel [facility] Start: 01-25-2018 Lipid panel Lipid panel [facility] Start: 01-20-2018 Basic metabolic panel calcium total BMP (basic metabolic panel) [facility] Start: 01-20-2018 Lipid panel Lipid Panel (Chol, HDL, LDL, Trig., VLDL) [facility] Start: 11-28-2017 Cervical cancer screen Cervical cancer screen [place], [place] Start: 11-28-2017 Screening for malignant neoplasm of cervix Cervical cancer screen [place], [place] Start: 10-05-2017 Hepatic function panel Liver function panel [facility] Start: 03-20-2018 Lipid panel Lipid Panel (Chol, HDL, LDL, Trig., VLDL) [facility] Start: 03-23-2017 25 hydroxy includes fractions if performed VITAMIN D 25 HYDROXY [facility] Start: 03-23-2017 Assay of free thyroxine TSH + free t4 [facility] Start: 03-23-2017 Assay of thyroid stimulating hormone tsh TSH + free t4 [facility] Start: 03-23-2017 Lipid panel Lipid panel [facility] Start: 11-29-1994 Hepatitis B vaccine (1 of 3 - 19+ 3-dose series) Hepatitis B vaccine (1 of 3 - 19+ 3-dose series) [facility] Start: 11-29-1993 Hepatitis C screening Hepatitis C screen [facility] Start: 1991 COVID-19 Vaccine (1) COVID-19 Vaccine (1) [facility] [employer] Work Phone: Start: 11-29-1990 HIV screen HIV screen [place], [place] Start: 11-29-1990 HIV screening HIV screen [facility] Start: 1987 COVID-19 Vaccine (1) COVID-19 Vaccine (1) [facility] [employer] Work Phone: Start: 1987 Depression Monitoring Depression Monitoring [facility] Start: 11-29-1981 Pneumococcal 0-64 years Vaccine (1 - PCV) Pneumococcal 0-64 years Vaccine (1 - PCV) [facility] Start: 11-29-1981 Pneumococcal 0-64 years Vaccine (1 of 1 - PPSV23) Pneumococcal 0-64 years Vaccine (1 of 1 - PPSV23) [place] Start: 11-29-1981 Pneumococcal 0-64 years Vaccine (1 of 2 - PCV) Pneumococcal 0-64 years Vaccine (1 of 2 - PCV) [facility] Start: 11-29-1981 Pneumococcal 0-64 years Vaccine (1 of 2 - PPSV23) Pneumococcal 0-64 years Vaccine (1 of 2 - PPSV23) [facility] Start: 11-29-1980 COVID-19 Vaccine (1) COVID-19 Vaccine (1) [facility] [employer] Start: 1975 Hepatitis B vaccine (1 of 3 - 3-dose series) Hepatitis B vaccine (1 of 3 - 3-dose series) [facility] Start: 1975 Hepatitis C screening Hepatitis C screen [facility] End: 10-10-2019 Antithrombin III Activity Antithrombin III Activity Lab Routine One Time for 1 Occurrences starting 10/10/2019 until 10/10/2019 [place] Comment on above: One Time for 1 Occurrences starting 09/17 until 10/10/2019 Antithrombin III Activity Antith rombin III Activity Lab Routine 10/10/2019 10:18 AM EDT [place] End: 10-19-2021 aPTT in Blood by Coagulation assay APTT Lab STAT One Time for 1 Occurrences starting 10/19/2021 until 10/19/2021 [facility] Comment on above: One Time for 1 Occurrences starting 09/2021 until 10/19/2021 Basic metabolic 2000 panel M [place], [place] Comment on above: Daily until discontinued starting 2019 End: 08-30-2020 Basic Metabolic Panel w/ Reflex to MG Basic Metabolic Panel w/ Reflex to MG Lab Routine Daily for 3 Occurrences starting 08/28/2020 until 08/30/2020, 2 completed [employer] Phone: Comment on above: Daily for 3 Occurrences starting 021 until 08/30/2020, 2 completed Basic Metabolic Pane l w/ Reflex to MG Basic Metabolic Panel w/ Reflex to MG Lab Routine Daily until discontinued starting 01/03/2021, 1 completed [employer] Phone: Comment on above: Daily until discontinued starting 2020, 1 completed End: 10-19-2021 Basic Metabolic Panel w/ Reflex to MG Basic Metabolic Panel w/ Reflex to MG Lab STAT One Time for 1 Occurrences starting 10/19/2021 until 10/19/2021 [employer] Phone: Comment on above: One Time for 1 Occurrences starting 09/2021 until 10/19/2021 End: 10-30-2021 Catheterization and angiography procedure details panel [employer] Phone: Comment on above: One Time for 1 Occurrences starting 10/17 until 10/30/2021 End: 08-20-2022 Catheterization and angiography procedure details panel Diagnostic Cardiac Control Systems Drafting Officer Procedure Cardiac Cath Routine One Time for 1 Occurrences starting 08/20/2022 until 08/20/2022 KURTIS MEJIA [email or web address] Phone: Comment on above: One Time for 1 Occurrences starting 08/2022 until 08/20/2022 End: 08-30-2020 CBC auto differential CBC auto differential Lab Routine Daily for 3 Occurrences starting 08/28/2020 until 08/30/2020, 2 completed [employer] Phone: Comment on above: Daily for 3 Occurrences starting 021 until 08/30/2020, 2 completed End: 10-19-2021 CBC panel - Blood by Automated count CBC Lab STAT One Time for 1 Occurrences starting 10/19/2021 until 10/19/2021 [employer] Phone: Comment on above: One Time for 1 Occurrences starting 09/2021 until 10/19/2021 CBC W Auto Different ial panel - Blood CBC auto differential Lab Routine Daily until discontinued starting 01/03/2021, 1 completed [employer] Phone: Comment on above: Daily until discontinued starting 2020, 1 completed End: 10-20-2021 Continuous pulse oximetry Pulse oximetry, continuous Respiratory Care Routine Every 4hr for 24 Hours starting 10/20/2021 until 10/20/2021 [employer] Phone: Comment on above: Every 4hr for 24 Hours starting 10/21/19 until 10/20/2021 End: 10-21-2021 Continuous pulse oximetry Pulse oximetry, continuous Respiratory Care Routine Every 4hr for 24 Hours starting 10/20/2021 until 10/21/2021 [employer] Phone: Comment on above: Every 4hr for 24 Hours starting 10/21/19 22 until 10/21/2021 End: 02-14-2020 COVID-19 Ambulatory COVID-19 Ambulatory Lab Routine Pre-op testing 1 Occurrences starting 02/14/2020 until 02/14/2020 [place] Comment on above: 1 Occurrences starting 02/14/2020 until 02/14/2020 COVID-19 Ambulatory COVID-19 Amb ulatory Lab Routine Pre-op testing 02/14/2020 1:56 PM EDT [place] End: 06-17-2020 COVID-19, PCR COVID-19, PCR Lab Routine One Time for 1 Occurrences starting 06/17/2020 until 06/17/2020 [place] Comment on above: One Time for 1 Occurrences starting 05/21 until 06/17/2020 COVID-19, PCR COVID-19, PCR La b STAT 06/17/2020 [facility] [place] End: 10-19-2021 COVID-19, Rapid [facility] [facility] Work Phone: Comment on above: Once for 1 Occurrences starting 10/20/19 22 until 10/19/2021 CT Abdomen and Pelvi s W contrast IV CT ABDOMEN PELVIS W IV CONTRAST Additional Contrast? None Imaging STAT 08/12/2023 4:10 PM EST [employer] End: 09-19-2020 Culture, Urine Culture, Urine Microbiology Routine Right sided abdominal pain 1 Occurrences starting 09/19/2020 until 09/19/2020 [employer] Phone: Comment on above: 1 Occurrences starting 09/19/2020 until 09/19/2020 Culture, Urine Culture, Urine M icrobiology Routine Right sided abdominal pain 09/19/2020 10:12 AM [employer] Phone: Culture, Wound Culture, Wound M icrobiology Routine Vulvar cyst 02/22/2020 5:09 PM [place], [place] End: 01-24-2020 Cytopathology procedure, preparation of smear, genital source PAP SMEAR Lab Routine Women's annual routine gynecological examination 1 Occurrences starting 01/24/2020 until 01/24/2020 [place] Comment on above: 1 Occurrences starting 01/24/2020 until 01/24/2020 End: 07-24-2021 Cytopathology procedure, preparation of smear, genital source PAP SMEAR Lab Routine Women's annual routine gynecological examination 1 Occurrences starting 07/24/2021 until 07/24/2021 [employer] Phone: Comment on above: 1 Occurrences starting 07/24/2021 until 07/24/2021 EKG 12 Lead [employer] [facility] [place] Comment on above: As Needed until discontinued starting EKG 12 Lead EKG 12 Lead ECG STAT 06/06/2021 9:57 AM EST [employer] Phone: EKG 12 Lead EKG 12 Lead ECG Routine 07/08/2021 2:55 PM EST [employer] Phone: EKG 12 Lead EKG 12 Lead ECG STAT 10/19/2021 8:44 PM EDT [employer] Phone: EKG 12 Lead EKG 12 Lead ECG STAT 08/20/2022 12:16 PM EST [employer] Phone: EKG 12 Lead EKG 12 Lead ECG STAT 08/12/2023 3:35 PM EST [employer] EKG 12 Lead EKG 12 Lead ECG STAT 12/23/2023 1:50 PM EDT [employer] EKG 12 Lead EKG 12 Lead ECG STAT 03/12/2024 11:54 AM EDT [employer] Phone: End: 10-10-2019 Factor 5 Leiden Factor 5 Leiden Lab Routine One Time for 1 Occurrences starting 10/10/2019 until 10/10/2019 [employer] [place] Comment on above: One Time for 1 Occurrences starting 09/17 until 10/10/2019 End: 10-19-2021 Glucose [Mass/volume] in Serum or Plasma POCT Glucose Point of Care Testing STAT One Time for 1 Occurrences starting 10/19/2021 until 10/19/2021 [employer] Phone: Comment on above: One Time for 1 Occurrences starting 09/2021 until 10/19/2021 H. PYLORI DETE[employer] Phone: Comment on above: Release Upon Ordering for 1 Occurrences starting 01/03/2021 Initiate Oxygen Ther apy Protocol [facility] [place], [place] Comment on above: Daily until discontinued starting 2018 Daily until disconti nued starting 10/09/2019 Daily until disconti nued starting 12/28/2019 Daily until disconti nued starting 12/29/2019 Daily until disconti nued starting 12/30/2019 End: 06-19-2021 Intermittent pulse oximetry Pulse Oximetry Spot Check Respiratory Care Routine One Time for 1 Occurrences starting 06/19/2021 until 06/19/2021 [employer] Phone: Comment on above: One Time for 1 Occurrences starting 08/2020 until 06/19/2021 Intermittent pulse oximetry Puls e Oximetry Spot Check Respiratory Care Routine As Needed until discontinued starting 10/22/2021 [employer] Phone: Comment on above: As Needed until discontinued starting End: 10-30-2021 Intermittent pulse oximetry Pulse Oximetry Spot Check Respiratory Care Routine One Time for 1 Occurrences starting 10/30/2021 until 10/30/2021 [employer] Phone: Comment on above: One Time for 1 Occurrences starting 10/17 until 10/30/2021 End: 11-06-2021 Intermittent pulse oximetry Pulse Oximetry Spot Check Respiratory Care Routine One Time for 1 Occurrences starting 11/06/2021 until 11/06/2021 [employer] Phone: Comment on above: One Time for 1 Occurrences starting 10/18 until 11/06/2021 End: 08-20-2022 Intermittent pulse oximetry Pulse Oximetry Spot Check Respiratory Care Routine One Time for 1 Occurrences starting 08/20/2022 until 08/20/2022 KURTIS MEJIA [email or web address] Phone: Comment on above: One Time for 1 Occurrences starting 08/2022 until 08/20/2022 End: 10-22-2021 IR ANGIOGRAM CAROTID C EREBRAL BILATERAL IR ANGIOGRAM CAROTID C EREBRAL BILATERAL Imaging Routine Once for 1 Occurrences starting 10/22/2021 until 10/22/2021 [employer] Phone: Comment on above: Once for 1 Occurrences starting 10/23/19 until 10/22/2021 IR ANGIOGRAM CAROTID C EREBRAL BILATERAL IR ANGIOGRAM CAROTID C EREBRAL BILATERAL Imaging Routine 10/22/2021 5:26 PM EDT [employer] Phone: Lac Repair Lac Repair Proce dures Routine 04/28/2020 3:41 PM EDT [employer] [place] End: 12-29-2019 LDL Cholesterol, Direct LDL Cholesterol, Direct Lab Routine Once for 1 Occurrences starting 12/29/2019 until 12/29/2019 [employer] [place] Comment on above: Once for 1 Occurrences starting 12/29/19 until 12/29/2019 LDL Cholesterol, Direct LDL Chol esterol, Direct Lab Routine 12/29/2019 6:00 AM EDT [employer] [place] End: 10-07-2021 Lipid panel [employer] Phone: Comment on above: One Time for 1 Occurrences starting 09/17 until 10/07/2021 LUPUS ANTICOAGULANT LUPUS ANTICO AGULANT Lab Routine 10/10/2019 10:18 AM EDT [employer] [place] Oxygen therapy [Mini mum Data Set] [employer] Phone: Comment on above: Daily until discontinued starting 2020 Daily until disconti nued starting 01/02/2021 Oxygen therapy [Mini mum Data Set] Initiate Oxygen Therapy Protocol Respiratory Care Routine Daily until discontinued starting 06/19/2021 [employer] Phone: Comment on above: Daily until discontinued starting 2020 Oxygen therapy [Mini mum Data Set] Initiate Oxygen Therapy Protocol Respiratory Care Routine Daily until discontinued starting 06/19/2021 [employer] Phone: Comment on above: Daily until discontinued starting 2020 Oxygen therapy [Mini mum Data Set] Initiate Oxygen Therapy Protocol Respiratory Care Routine As Needed until discontinued starting 10/06/2021 [employer] Phone: Comment on above: As Needed until discontinued starting Oxygen therapy [Mini mum Data Set] Initiate Oxygen Therapy Protocol Respiratory Care Routine As Needed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 teach healthy choices including fruits and vegetables Last Documented On 2 11:56AM ; [facility] Patient education about a pr oper diet Last Documented On 2 11:56AM ; [facility] Discussed concerns about exe rcise : promote physical activity Last Documented On 2 11:56AM ; [facility] Discussed nutritional needs teach healthy choices including fruits and vegetables Last Documented On 2 12:03PM ; [facility] Patient education about a pr oper diet Last Documented On 2 12:03PM ; [facility] Discussed concerns about exe rcise : promote physical activity Last Documented On 2 12:03PM ; [facility] Discussed current self-care methods/coping skills. ~Validated and normalized pt's feelings while assisting patient process recent events. ~Encouraged ongoing counseling. ~Discussed lifestyle changes to address chronic illness. ~Supported patient's personal health goals Last Documented On 2 9:32PM ; [facility] Discussed nutritional needs teach healthy choices including fruits and vegetables Last Documented On 2 2:12PM ; [facility] Patient education about a pr oper diet Last Documented On 2 2:12PM ; [facility] Discussed concerns about exe rcise : promote physical activity Last Documented On 2 2:12PM ; [facility] Discussed nutritional needs teach healthy choices including fruits and vegetables Last Documented On 1 4:05PM ; [facility] Patient education about a pr oper diet Last Documented On 1 4:05PM ; [facility] Discussed concerns about exe rcise : promote physical activity Last Documented On 1 4:05PM ; [facility] Discussed nutritional needs teach healthy choices including fruits and vegetables Last Documented On 1 7:23PM ; [facility] Patient education about a pr oper diet Last Documented On 1 7:23PM ; [facility] Patient education about a pr oper diet Last Documented On 1 7:45PM ; [facility] Patient education about meal planning Last Documented On 1 7:45PM ; [facility] [facility] Education about changing eat ing habits Last Documented On 1 7:45PM ; [facility] Patient education about high fiber diet Last Documented On 1 7:45PM ; [facility] Patient education about low fat diet Last Documented On 1 7:45PM ; [facility] Patient education about low cholesterol diet Last Documented On 1 7:45PM ; [facility] Patient education about low carbohydrate diet Last Documented On 1 7:45PM ; [facility] Discussed concerns about exe rcise : promote physical activity Last Documented On 1 7:23PM ; [facility] Discussed nutritional needs teach healthy choices including fruits and vegetables Last Documented On 1 4:54PM ; [facility] Patient education about a pr oper diet Last Documented On 1 4:54PM ; [facility] Patient education about a pr oper diet Last Documented On 1 5:25PM ; [facility] Patient education about meal planning Last Documented On 1 5:25PM ; [facility] Education about changing eat ing habits Last Documented On 1 5:25PM ; [facility] Patient education about high fiber diet Last Documented On 1 5:25PM ; [facility] Patient education about low fat diet Last Documented On 1 5:25PM ; [facility] Patient education about low cholesterol diet Last Documented On 1 5:25PM ; [facility] Patient education about low carbohydrate diet Last Documented On 1 5:25PM ; [facility] Patient education about high protein diet Last Documented On 1 5:25PM ; [facility] Discussed concerns about exe rcise : promote physical activity Last Documented On 1 4:54PM ; [facility] provided active listenin g, support and helped patient process through current symptoms and stressors related to family conflict. [facility] discussed resources for housing and supports with patient. ~P discussed potential benefit of counseling and supports. Patient is willing to reconsider meeting with a provider at another agency than she has in the past as she does not want all of the same services Last Documented On 1 2:40PM ; [facility] Discussed nutritional needs teach healthy choices including fruits and vegetables Last Documented On 1 3:21PM ; [facility] Patient education about a pr oper diet Last Documented On 1 3:21PM ; [facility] Patient education about a pr oper diet Last Documented On 1 4:08PM ; [facility] Patient education about meal planning Last Documented On 1 4:08PM ; [facility] Education about changing eat ing habits Last Documented On 1 4:08PM ; [facility] Patient education about high fiber diet Last Documented On 1 4:08PM ; [facility] Patient education about low fat diet Last Documented On 1 4:08PM ; [facility] Patient education about low cholesterol diet Last Documented On 1 4:08PM ; [facility] Patient education about low carbohydrate diet Last Documented On 1 4:08PM ; [facility] Patient education about high protein diet Last Documented On 1 4:08PM ; [facility] Discussed concerns about exe rcise : promote physical activity Last Documented On 1 3:21PM ; [facility] Patient education about a pr oper diet Last Documented On 0 1:48PM ; [facility] Patient education about meal planning Last Documented On 0 1:48PM ; [facility] Education about changing eat ing habits Last Documented On 0 1:48PM ; [facility] Patient education about high fiber diet Last Documented On 0 1:48PM ; [facility] Patient education about low fat diet Last Documented On 0 1:48PM ; [facility] Patient education about low cholesterol diet Last Documented On 0 1:48PM ; [facility] Patient education about low carbohydrate diet Last Documented On 0 1:48PM ; [facility] Patient education about high protein diet Last Documented On 0 1:48PM ; [facility] offered active and suppo rtive listening, normalized emotions and feelings, processed current stressors and explored coping and stress reducing skills. ~[facility] attempted to discuss sleep hygiene strategies with patient including meditation, reducing caffeine use, increaing physical activity during the day as tolerated, and engaging in calming activities. Patient states that she has tried many things in the past and nothing has been sucessful. ~ Last Documented On 0 8:21AM ; [facility] Work Phone: Instructions Includes: Instructions for all patient encounters Education and Decision Aids were provided during visit for: Discussed nutritional needs teach healthy choices including fruits and vegetables Last Documented On 3 10:41AM ; [facility] Patient education about a pr oper diet Last Documented On 3 10:41AM ; [facility] Discussed concerns about exe rcise : promote physical activity Last Documented On 3 10:41AM ; [facility] offered active and suppo rtive listening, normalized emotions and feelings, processed current stressors and explored coping and stress reducing skills. ~[facility] discussed coping skills to manage increased anxiety such as breathing techniques, mindfulness and meditation. [facility] discussed potential benefit in counseling and provided resource list. ~[facility] discussed healthy lifestyle changes to implement Last Documented On 3 3:16PM ; [facility] Discussed nutritional needs teach healthy choices including fruits and vegetables Last Documented On 3 11:08AM ; [facility] Patient education about a pr oper diet Last Documented On 3 11:08AM ; [facility] Discussed concerns about exe rcise : promote physical activity Last Documented On 3 11:08AM ; [facility] Discussed nutritional needs teach healthy choices including fruits and vegetables Last Documented On 2 11:44AM ; [facility] Patient education about a pr oper diet Last Documented On 2 11:44AM ; [facility] Discussed concerns about exe rcise : promote physical activity Last Documented On 2 11:44AM ; [facility] Problems sleeping Last Documented On 2 9:03AM ; [facility] Discussed nutritional needs teach healthy choices including fruits and vegetables Last Documented On 2 8:19AM ; [facility] Patient education about a pr oper diet Last Documented On 2 8:19AM ; [facility] Discussed concerns about exe rcise : promote physical activity Last Documented On 2 8:19AM ; [facility] Discussed nutritional needs teach healthy choices including fruits and vegetables Last Documented On 2 11:56AM ; [facility] Patient education about a pr oper diet Last Documented On 2 11:56AM ; [facility] Discussed concerns about exe rcise : promote physical activity Last Documented On 2 11:56AM ; [facility] Discussed nutritional needs teach healthy choices including fruits and vegetables Last Documented On 2 12:03PM ; [facility] Patient education about a pr oper diet Last Documented On 2 12:03PM ; [facility] Discussed concerns about exe rcise : promote physical activity Last Documented On 2 12:03PM ; [facility] Discussed current self-care methods/coping skills. ~Validated and normalized pt's feelings while assisting patient process recent events. ~Encouraged ongoing counseling. ~Discussed lifestyle changes to address chronic illness. ~Supported patient's personal health goals Last Documented On 2 9:32PM ; [facility] Discussed nutritional needs teach healthy choices including fruits and vegetables Last Documented On 2 2:12PM ; [facility] Patient education about a pr oper diet Last Documented On 2 2:12PM ; [facility] Discussed concerns about exe rcise : promote physical activity Last Documented On 2 2:12PM ; [facility] Discussed nutritional needs teach healthy choices including fruits and vegetables Last Documented On 1 4:05PM ; [facility] Patient education about a pr oper diet Last Documented On 1 4:05PM ; [facility] Discussed concerns about exe rcise : promote physical activity Last Documented On 1 4:05PM ; [facility] Discussed nutritional needs teach healthy choices including fruits and vegetables Last Documented On 1 7:23PM ; [facility] Patient education about a pr oper diet Last Documented On 1 7:23PM ; [facility] Patient education about a pr oper diet Last Documented On 1 7:45PM ; [facility] Patient education about meal planning Last Documented On 1 7:45PM ; [facility] Education about changing eat ing habits Last Documented On 1 7:45PM ; [facility] Patient education about high fiber diet Last Documented On 1 7:45PM ; [facility] Patient education about low fat diet Last Documented On 1 7:45PM ; [facility] Patient education about low cholesterol diet Last Documented On 1 7:45PM ; [facility] Patient education about low carbohydrate diet Last Documented On 1 7:45PM ; [facility] Discussed concerns about exe rcise : promote physical activity Last Documented On 1 7:23PM ; [facility] Discussed nutritional needs teach healthy choices including fruits and vegetables Last Documented On 1 4:54PM ; [facility] Patient education about a pr oper diet Last Documented On 1 4:54PM ; [facility] Patient education about a pr oper diet Last Documented On 1 5:25PM ; [facility] Patient education about meal planning Last Documented On 1 5:25PM ; [facility] Education about changing eat ing habits Last Documented On 1 5:25PM ; [facility] Patient education about high fiber diet Last Documented On 1 5:25PM ; [facility] Patient education about low fat diet Last Documented On 1 5:25PM ; [facility] Patient education about low cholesterol diet Last Documented On 1 5:25PM ; [facility] Patient education about low carbohydrate diet Last Documented On 1 5:25PM ; [facility] Patient education about high protein diet Last Documented On 1 5:25PM ; [facility] Discussed concerns about exe rcise : promote physical activity Last Documented On 1 4:54PM ; [facility] provided active listenin g, support and helped patient process through current symptoms and stressors related to family conflict. P/[employer] discussed resources for housing and supports with patient. ~P discussed potential benefit of counseling and supports. Patient is willing to reconsider meeting with a provider at another agency than she has in the past as she does not want all of the same services Last Documented On 1 2:40PM ; [facility] Discussed nutritional needs teach healthy choices including fruits and vegetables Last Documented On 1 3:21PM ; [facility] Patient education about a pr oper diet Last Documented On 1 3:21PM ; [facility] Patient education about a pr oper diet Last Documented On 1 4:08PM ; [facility] Patient education about meal planning Last Documented On 1 4:08PM ; [facility] Education about changing eat ing habits Last Documented On 1 4:08PM ; [facility] Patient education about high fiber diet Last Documented On 1 4:08PM ; [facility] Patient education about low fat diet Last Documented On 1 4:08PM ; [facility] Patient education about low cholesterol diet Last Documented On 1 4:08PM ; [facility] Patient education about low carbohydrate diet Last Documented On 1 4:08PM ; [facility] Patient education about high protein diet Last Documented On 1 4:08PM ; [facility] Discussed concerns about exe rcise : promote physical activity Last Documented On 1 3:21PM ; [facility] Patient education about a pr oper diet Last Documented On 0 1:48PM ; [facility] Patient education about meal planning Last Documented On 0 1:48PM ; [facility] Education about changing eat ing habits Last Documented On 0 1:48PM ; [facility] Patient education about high fiber diet Last Documented On 0 1:48PM ; [facility] Patient education about low fat diet Last Documented On 0 1:48PM ; [facility] Patient education about low cholesterol diet Last Documented On 0 1:48PM ; [facility] Patient education about low carbohydrate diet Last Documented On 0 1:48PM ; [facility] Patient education about high protein diet Last Documented On 0 1:48PM ; [facility] offered active and suppo rtive listening, normalized emotions and feelings, processed current stressors and explored coping and stress reducing skills. ~[facility] attempted to discuss sleep hygiene strategies with patient including meditation, reducing caffeine use, increaing physical activity during the day as tolerated, and engaging in calming activities. Patient states that she has tried many things in the past and nothing has been sucessful. ~ Last Documented On 0 8:21AM ; [facility] Work Phone: Instructions Includes: Instructions for all patient encounters Education and Decision Aids were provided during visit for: Discussed nutritional needs teach healthy choices including fruits and vegetables Last Documented On 3 2:01PM ; [facility] Patient education about a pr oper diet Last Documented On 3 2:01PM ; [facility] Discussed concerns about exe rcise : promote physical activity Last Documented On 3 2:01PM ; [facility] Discussed nutritional needs teach healthy choices including fruits and vegetables Last Documented On 3 10:41AM ; [facility] Patient education about a pr oper diet Last Documented On 3 10:41AM ; [facility] Discussed concerns about exe rcise : promote physical activity Last Documented On 3 10:41AM ; [facility]ive [facility], normalized emotions and feelings, processed current stressors and explored coping and stress reducing skills. ~[facility] discussed coping skills to manage increased anxiety such as breathing techniques, mindfulness and meditation. P discussed potential benefit in counseling and provided resource list. ~[facility] discussed healthy lifestyle changes to implement Last Documented On 3 3:16PM ; [facility] Discussed nutritional needs teach healthy choices including fruits and vegetables Last Documented On 3 11:08AM ; [facility] Patient education about a pr oper diet Last Documented On 3 11:08AM ; [facility] Discussed concerns about exe rcise : promote physical activity Last Documented On 3 11:08AM ; [facility] Discussed nutritional needs teach healthy choices including fruits and vegetables Last Documented On 2 11:44AM ; [facility] Patient education about a pr oper diet Last Documented On 2 11:44AM ; [facility] Discussed concerns about exe rcise : promote physical activity Last Documented On 2 11:44AM ; [facility] Problems sleeping Last Documented On 2 9:03AM ; [facility] Discussed nutritional needs teach healthy choices including fruits and vegetables Last Documented On 2 8:19AM ; [facility] Patient education about a pr oper diet Last Documented On 2 8:19AM ; [facility] Discussed concerns about exe rcise : promote physical activity Last Documented On 2 8:19AM ; [facility] Discussed nutritional needs teach healthy choices including fruits and vegetables Last Documented On 2 11:56AM ; [facility] Patient education about a pr oper diet Last Documented On 2 11:56AM ; [facility] Discussed concerns about exe rcise : promote physical activity Last Documented On 2 11:56AM ; [facility] Discussed nutritional needs teach healthy choices including fruits and vegetables Last Documented On 2 12:03PM ; [facility] Patient education about a pr oper diet Last Documented On 2 12:03PM ; [facility] Discussed concerns about exe rcise : promote physical activity Last Documented On 2 12:03PM ; [facility] Discussed current self-care methods/coping skills. ~Validated and normalized pt's feelings while assisting patient process recent events. ~Encouraged ongoing counseling. ~Discussed lifestyle changes to address chronic illness. ~Supported patient's personal health goals Last Documented On 2 9:32PM ; [facility] Discussed nutritional needs teach healthy choices including fruits and vegetables Last Documented On 2 2:12PM ; [facility] Patient education about a pr oper diet Last Documented On 2 2:12PM ; [facility] Discussed concerns about exe rcise : promote physical activity Last Documented On 2 2:12PM ; [facility] Discussed nutritional needs teach healthy choices including fruits and vegetables Last Documented On 1 4:05PM ; [facility] Patient education about a pr oper diet Last Documented On 1 4:05PM ; [facility] Discussed concerns about exe rcise : promote physical activity Last Documented On 1 4:05PM ; [facility] Discussed nutritional needs teach healthy choices including fruits and vegetables Last Documented On 1 7:23PM ; [facility] Patient education about a pr oper diet Last Documented On 1 7:23PM ; [facility] Patient education about a pr oper diet Last Documented On 1 7:45PM ; [facility] Patient education about meal planning Last Documented On 1 7:45PM ; [facility] Education about changing eat ing habits Last Documented On 1 7:45PM ; [facility] Patient education about high fiber diet Last Documented On 1 7:45PM ; [facility] Patient education about low fat diet Last Documented On 1 7:45PM ; [facility] Patient education about low cholesterol diet Last Documented On 7:45PM ; [facility] Patient education about low carbohydrate diet Last Documented On 7:45PM ; [facility] Discussed concerns about exe rcise : promote physical activity Last Documented On 1 7:23PM ; [facility] Discussed nutritional needs teach healthy choices including fruits and vegetables Last Documented On 1 4:54PM ; [facility] Patient education about a pr oper diet Last Documented On 1 4:54PM ; [facility] Patient education about a pr oper diet Last Documented On 1 5:25PM ; [facility] Patient education about meal planning Last Documented On 1 5:25PM ; [facility] Education about changing eat ing habits Last Documented On 1 5:25PM ; [facility] Patient education about high fiber diet Last Documented On 1 5:25PM ; [facility] Patient education about low fat diet Last Documented On 1 5:25PM ; [facility] Patient education about low cholesterol diet Last Documented On 1 5:25PM ; [facility] Patient education about low carbohydrate diet Last Documented On 1 5:25PM ; [facility] Patient education about high protein diet Last Documented On 1 5:25PM ; [facility] Discussed concerns about exe rcise : promote physical activity Last Documented On 1 4:54PM ; [facility] support and helped patient process through current symptoms and stressors related to family conflict. [facility] discussed resources for housing and supports with patient. ~[facility] discussed potential benefit of counseling and supports. Patient is willing to reconsider meeting with a provider at another agency than she has in the past as she does not want all of the same services Last Documented On 1 2:40PM ; [facility] Discussed nutritional needs teach healthy choices including fruits and vegetables Last Documented On 1 3:21PM ; [facility] Patient education about a pr oper diet Last Documented On 1 3:21PM ; [facility] Patient education about a pr oper diet Last Documented On 1 4:08PM ; [facility] Patient education about meal planning Last Documented On 1 4:08PM ; [facility] Education about changing eat ing habits Last Documented On 1 4:08PM ; [facility] Patient education about high fiber diet Last Documented On 1 4:08PM ; [facility] Patient education about low fat diet Last Documented On 1 4:08PM ; [facility] Patient education about low cholesterol diet Last Documented On 1 4:08PM ; [facility] Patient education about low carbohydrate diet Last Documented On 1 4:08PM ; [facility] Patient education about high protein diet Last Documented On 1 4:08PM ; [facility] Discussed concerns about exe rcise : promote physical activity Last Documented On 1 3:21PM ; [facility] Patient education about a pr oper diet Last Documented On 0 1:48PM ; [facility] Patient education about meal planning Last Documented On 0 1:48PM ; [facility] Education about changing eat ing habits Last Documented On 0 1:48PM ; [facility] Patient education about high fiber diet Last Documented On 0 1:48PM ; [facility] Patient education about low fat diet Last Documented On 0 1:48PM ; [facility] Patient education about low cholesterol diet Last Documented On 0 1:48PM ; [facility] Patient education about low carbohydrate diet Last Documented On 0 1:48PM ; [facility] Patient education about high protein diet Last Documented On 0 1:48PM ; [facility] offered active and suppo rtive listening, normalized emotions and feelings, processed current stressors and explored coping and stress reducing skills. ~[facility] attempted to discuss sleep hygiene strategies with patient including meditation, reducing caffeine use, increaing physical activity during the day as tolerated, and engaging in calming activities. Patient states that she has tried many things in the past and nothing has been sucessful. ~ Last Documented On 0 8:21AM ; [facility] Work Phone: Instructions Includes: Instructions for all patient encounters Education and Decision Aids were provided during visit for: Discussed nutritional needs teach healthy choices including fruits and vegetables Last Documented On 4 2:28PM ; [facility] Patient education about a pr oper diet Last Documented On 4 2:28PM ; [facility] Discussed concerns about exe rcise : promote physical activity Last Documented On 4 2:28PM ; [facility] Not requesting contraception Last Documented On 4 2:28PM ; [facility] Discussed nutritional needs teach healthy choices including fruits and vegetables Last Documented On 3 2:01PM ; [facility] Patient education about a pr oper diet Last Documented On 3 2:01PM ; [facility] Discussed concerns about exe rcise : promote physical activity Last Documented On 3 2:01PM ; [facility] Discussed nutritional needs teach healthy choices including fruits and vegetables Last Documented On 3 10:41AM ; [facility] Patient education about a pr oper diet Last Documented On 3 10:41AM ; [facility] Discussed concerns about exe rcise : promote physical activity Last Documented On 3 10:41AM ; [facility] offered active and suppo rtive listening, normalized emotions and feelings, processed current stressors and explored coping and stress reducing skills. ~[facility] discussed coping skills to manage increased anxiety such as breathing techniques, mindfulness and meditation. B[facility] discussed potential benefit in counseling and provided resource list. ~P discussed healthy lifestyle changes to implement Last Documented On 3 3:16PM ; [facility] Discussed nutritional needs teach healthy choices including fruits and vegetables Last Documented On 3 11:08AM ; [facility] Patient education about a pr oper diet Last Documented On 3 11:08AM ; [facility] Discussed concerns about exe rcise : promote physical activity Last Documented On 3 11:08AM ; [facility] Discussed nutritional needs teach healthy choices including fruits and vegetables Last Documented On 2 11:44AM ; [facility] Patient education about a pr oper diet Last Documented On 2 11:44AM ; [facility] Discussed concerns about exe rcise : promote physical activity Last Documented On 2 11:44AM ; [facility] Problems sleeping Last Documented On 2 9:03AM ; [facility] Discussed nutritional needs teach healthy choices including fruits and vegetables Last Documented On 2 8:19AM ; [facility] Patient education about a pr oper diet Last Documented On 2 8:19AM ; [facility] Discussed concerns about exe rcise : promote physical activity Last Documented On 2 8:19AM ; [facility] Discussed nutritional needs teach healthy choices including fruits and vegetables Last Documented On 2 11:56AM ; [facility] Patient education about a pr oper diet Last Documented On 2 11:56AM ; [facility] Discussed concerns about exe rcise : promote physical activity Last Documented On 2 11:56AM ; [facility] Discussed nutritional needs teach healthy choices including fruits and vegetables Last Documented On 2 12:03PM ; [facility] Patient education about a pr oper diet Last Documented On 2 12:03PM ; [facility] Discussed concerns about exe rcise : promote physical activity Last Documented On 2 12:03PM ; [facility] Discussed current self-care methods/coping skills. ~Validated and normalized pt's feelings while assisting patient process recent events. ~Encouraged ongoing counseling. ~Discussed lifestyle changes to address chronic illness. ~Supported patient's personal health goals Last Documented On 2 9:32PM ; [facility] Discussed nutritional needs teach healthy choices including fruits and vegetables Last Documented On 2 2:12PM ; [facility] Patient education about a pr oper diet Last Documented On 2 2:12PM ; [facility] Discussed concerns about exe rcise : promote physical activity Last Documented On 2 2:12PM ; [facility] Discussed nutritional needs teach healthy choices including fruits and vegetables Last Documented On 1 4:05PM ; [facility] Patient education about a pr oper diet Last Documented On 1 4:05PM ; [facility] Discussed concerns about exe rcise : promote physical activity Last Documented On 1 4:05PM ; [facility] Discussed nutritional needs teach healthy choices including fruits and vegetables Last Documented On 1 7:23PM ; [facility] Patient education about a pr oper diet Last Documented On 1 7:23PM ; [facility] Patient education about a pr oper diet Last Documented On 1 7:45PM ; [facility] Patient education about meal planning Last Documented On 1 7:45PM ; [facility] Education about changing eat ing habits Last Documented On 1 7:45PM ; [facility] Patient education about high fiber diet Last Documented On 1 7:45PM ; [facility] Patient education about low fat diet Last Documented On 1 7:45PM ; [facility] Patient education about low cholesterol diet Last Documented On 1 7:45PM ; [facility] Patient education about low carbohydrate diet Last Documented On 1 7:45PM ; [facility] Discussed concerns about exe rcise : promote physical activity Last Documented On 1 7:23PM ; [facility] Discussed nutritional needs teach healthy choices including fruits and vegetables Last Documented On 1 4:54PM ; [facility] Patient education about a pr oper diet Last Documented On 1 4:54PM ; [facility] Patient education about a pr oper diet Last Documented On 1 5:25PM ; [facility] Patient education about meal planning Last Documented On 1 5:25PM ; [facility] Education about changing eat ing habits Last Documented On 1 5:25PM ; [facility] Patient education about high fiber diet Last Documented On 1 5:25PM ; [facility] Patient education about low fat diet Last Documented On 1 5:25PM ; [facility] Patient education about low cholesterol diet Last Documented On 1 5:25PM ; [facility] Patient education about low carbohydrate diet Last Documented On 1 5:25PM ; [facility] Patient education about high protein diet Last Documented On 1 5:25PM ; [facility] Discussed concerns about exe rcise : promote physical activity Last Documented On 1 4:54PM ; [facility] provided active listenin g, support and helped patient process through current symptoms and stressors related to family conflict. P/[employer] discussed resources for housing and supports with patient. ~P discussed potential benefit of counseling and supports. Patient is willing to reconsider meeting with a provider at another agency than she has in the past as she does not want all of the same services Last Documented On 1 2:40PM ; [facility] Discussed nutritional needs teach healthy choices including fruits and vegetables Last Documented On 1 3:21PM ; [facility] Patient education about a pr oper diet Last Documented On 1 3:21PM ; [facility] Patient education about a pr oper diet Last Documented On 1 4:08PM ; [facility] Patient education about meal planning Last Documented On 1 4:08PM ; [facility] Education about changing eat ing habits Last Documented On 1 4:08PM ; [facility] Patient education about high fiber diet Last Documented On 1 4:08PM ; [facility] Patient education about low fat diet Last Documented On 1 4:08PM ; [facility] Patient education about low cholesterol diet Last Documented On 1 4:08PM ; [facility] Patient education about low carbohydrate diet Last Documented On 1 4:08PM ; [facility] Patient education about high protein diet Last Documented On 1 4:08PM ; [facility] Discussed concerns about exe rcise : promote physical activity Last Documented On 1 3:21PM ; [facility] Patient education about a pr oper diet Last Documented On 0 1:48PM ; [facility] Patient education about meal planning Last Documented On 0 1:48PM ; [facility] Education about changing eat ing habits Last Documented On 0 1:48PM ; [facility] Patient education about high fiber diet Last Documented On 0 1:48PM ; [facility] Patient education about low fat diet Last Documented On 0 1:48PM ; [facility] Patient education about low cholesterol diet Last Documented On 0 1:48PM ; [facility] Patient education about low carbohydrate diet Last Documented On 0 1:48PM ; [facility] Patient education about high protein diet Last Documented On 0 1:48PM ; [facility] BH offered active and suppo rtive listening, [...] ~ Last Documented On 0 8:21AM ; [facility] Work Phone: Instructions Includes: Instructions for all patient encounters Education and Decision Aids were provided during visit for: Discussed nutritional needs teach healthy choices including fruits and vegetables Last Documented On 4 2:02PM ; [facility] Patient education about a pr oper diet Last Documented On 4 2:02PM ; [facility] Patient education about an a sthma action plan Last Documented On 4 2:13PM ; [facility] Discussed concerns about exe rcise : promote physical activity Last Documented On 4 2:02PM ; [facility] Discussed nutritional needs teach healthy choices including fruits and vegetables Last Documented On 4 8:36AM ; [facility] Patient education about a pr oper diet Last Documented On 4 8:36AM ; [facility] Discussed concerns about exe rcise : promote physical activity Last Documented On 4 8:36AM ; [facility] offered active and suppo rtive listening, normalized emotions and feelings, and processed current stressors. ~[facility] discussed coping skills to manage increased anxiety. ~[facility] discussed community resources and supports Last Documented On 4 1:56PM ; [facility] Discussed nutritional needs teach healthy choices including fruits and vegetables Last Documented On 4 2:28PM ; [facility] Patient education about a pr oper diet Last Documented On 4 2:28PM ; [facility] Discussed concerns about exe rcise : promote physical activity Last Documented On 4 2:28PM ; [facility] Not requesting contraception Last Documented On 4 2:28PM ; [facility] Discussed nutritional needs teach healthy choices including fruits and vegetables Last Documented On 3 2:01PM ; [facility] Patient education about a pr oper diet Last Documented On 3 2:01PM ; [facility] Discussed concerns about exe rcise : promote physical activity Last Documented On 3 2:01PM ; [facility] Discussed nutritional needs teach healthy choices including fruits and vegetables Last Documented On 3 10:41AM ; [facility] Patient education about a pr oper diet Last Documented On 3 10:41AM ; [facility] Discussed concerns about exe rcise : promote physical activity Last Documented On 3 10:41AM ; [facility] and suppo rtive listening, normalized emotions and feelings, processed current stressors and explored coping and stress reducing skills. ~P discussed coping skills to manage increased anxiety such as breathing techniques, mindfulness and meditation. [facility] discussed potential benefit in counseling and provided resource list. ~[facility] discussed healthy lifestyle changes to implement Last Documented On 3 3:16PM ; [facility] Discussed nutritional needs teach healthy choices including fruits and vegetables Last Documented On 3 11:08AM ; [facility] Patient education about a pr oper diet Last Documented On 3 11:08AM ; [facility] Discussed concerns about exe rcise : promote physical activity Last Documented On 3 11:08AM ; [facility] Discussed nutritional needs teach healthy choices including fruits and vegetables Last Documented On 2 11:44AM ; [facility] Patient education about a pr oper diet Last Documented On 2 11:44AM ; [facility] Discussed concerns about exe rcise : promote physical activity Last Documented On 2 11:44AM ; [facility] Problems sleeping Last Documented On 2 9:03AM ; [facility] Discussed nutritional needs teach healthy choices including fruits and vegetables Last Documented On 2 8:19AM ; [facility] Patient education about a pr oper diet Last Documented On 2 8:19AM ; [facility] Discussed concerns about exe rcise : promote physical activity Last Documented On 2 8:19AM ; [facility] Discussed nutritional needs teach healthy choices including fruits and vegetables Last Documented On 2 11:56AM ; [facility] Patient education about a pr oper diet Last Documented On 2 11:56AM ; [facility] Discussed concerns about exe rcise : promote physical activity Last Documented On 2 11:56AM ; [facility] Discussed nutritional needs teach healthy choices including fruits and vegetables Last Documented On 2 12:03PM ; [facility] Patient education about a pr oper diet Last Documented On 2 12:03PM ; [facility] Discussed concerns about exe rcise : promote physical activity Last Documented On 2 12:03PM ; [facility] Discussed current self-care methods/coping skills. ~Validated and normalized pt's feelings while assisting patient process recent events. ~Encouraged ongoing counseling. ~Discussed lifestyle changes to address chronic illness. ~Supported patient's personal health goals Last Documented On 2 9:32PM ; [facility] Discussed nutritional needs teach healthy choices including fruits and vegetables Last Documented On 2 2:12PM ; [facility] Patient education about a pr oper diet Last Documented On 2 2:12PM ; [facility] Discussed concerns about exe rcise : promote physical activity Last Documented On 2 2:12PM ; [facility] Discussed nutritional needs teach healthy choices including fruits and vegetables Last Documented On 1 4:05PM ; [facility] Patient education about a pr oper diet Last Documented On 1 4:05PM ; [facility] Discussed concerns about exe rcise : promote physical activity Last Documented On 1 4:05PM ; [facility] Discussed nutritional needs teach healthy choices including fruits and vegetables Last Documented On 1 7:23PM ; [facility] Patient education about a pr oper diet Last Documented On 1 7:23PM ; [facility] Patient education about a pr oper diet Last Documented On 1 7:45PM ; [facility] Patient education about meal planning Last Documented On 1 7:45PM ; [facility] Education about changing eat ing habits Last Documented On 1 7:45PM ; [facility] Patient education about high fiber diet Last Documented On 1 7:45PM ; [facility] Patient education about low fat diet Last Documented On 1 7:45PM ; [facility] Patient education about low cholesterol diet Last Documented On 1 7:45PM ; [facility] Patient education about low carbohydrate diet Last Documented On 1 7:45PM ; [facility] Discussed concerns about exe rcise : promote physical activity Last Documented On 1 7:23PM ; [facility] Discussed nutritional needs teach healthy choices including fruits and vegetables Last Documented On 1 4:54PM ; [facility] Patient education about a pr oper diet Last Documented On 1 4:54PM ; [facility] Patient education about a pr oper diet Last Documented On 1 5:25PM ; [facility] Patient education about meal planning Last Documented On 1 5:25PM ; [facility] Education about changing eat ing habits Last Documented On 1 5:25PM ; [facility] Patient education about high fiber diet Last Documented On 1 5:25PM ; [facility] Patient education about low fat diet Last Documented On 1 5:25PM ; [facility] Patient education about low cholesterol diet Last Documented On 1 5:25PM ; [facility] Patient education about low carbohydrate diet Last Documented On 1 5:25PM ; [facility] Patient education about high protein diet Last Documented On 1 5:25PM ; [facility] Discussed concerns about exe rcise : promote physical activity Last Documented On 1 4:54PM ; [facility] provided active listenin g, support and helped patient process through current symptoms and stressors related to family conflict. [facility] discussed resources for housing and supports with patient. ~P discussed potential benefit of counseling and supports. Patient is willing to reconsider meeting with a provider at another agency than she has in the past as she does not want all of the same services Last Documented On 1 2:40PM ; [facility] Discussed nutritional needs teach healthy choices including fruits and vegetables Last Documented On 1 3:21PM ; [facility] Patient education about a pr oper diet Last Documented On 1 3:21PM ; [facility] Patient education about a pr oper diet Last Documented On 1 4:08PM ; [facility] Patient education about meal planning Last Documented On 1 4:08PM ; [facility] Education about changing eat ing habits Last Documented On 1 4:08PM ; [facility] Patient education about high fiber diet Last Documented On 1 4:08PM ; [facility] Patient education about low fat diet Last Documented On 1 4:08PM ; [facility] Patient education about low cholesterol diet Last Documented On 1 4:08PM ; [facility] Patient education about low carbohydrate diet Last Documented On 1 4:08PM ; [facility] Patient education about high protein diet Last Documented On 1 4:08PM ; [facility] Discussed concerns about exe rcise : promote physical activity Last Documented On 1 3:21PM ; [facility] Patient education about a pr oper diet Last Documented On 0 1:48PM ; [facility] Patient education about meal planning Last Documented On 0 1:48PM ; [facility] Education about changing eat ing habits Last Documented On 0 1:48PM ; [facility] Patient education about high fiber diet Last Documented On 0 1:48PM ; [facility] Patient education about low fat diet Last Documented On 0 1:48PM ; [facility] Patient education about low cholesterol diet Last Documented On 0 1:48PM ; [facility] Patient education about low carbohydrate diet Last Documented On 0 1:48PM ; [facility] Patient education about high protein diet Last Documented On 0 1:48PM ; [facility] offered active and suppo rtive listening, normalized [...] ~ Last Documented On 0 8:21AM ; [facility] Work Phone: Instructions Includes: Instructions for all patient encounters Education and Decision Aids were provided during visit for: Discussed nutritional needs teach healthy choices including fruits and vegetables Last Documented On 4 2:02PM ; [facility] Patient education about a pr oper diet Last Documented On 4 2:02PM ; [facility] Patient education about an a sthma action plan Last Documented On 4 2:13PM ; [facility] Discussed concerns about exe rcise : promote physical activity Last Documented On 4 2:02PM ; [facility] Discussed nutritional needs teach healthy choices including fruits and vegetables Last Documented On 4 8:36AM ; [facility] Patient education about a pr oper diet Last Documented On 4 8:36AM ; [facility] Discussed concerns about exe rcise : promote physical activity Last Documented On 4 8:36AM ; [facility] offered active and suppo rtive listening, normalized emotions and feelings, and processed current stressors. ~[facility] discussed coping skills to manage increased anxiety. ~[facility] discussed community resources and supports Last Documented On 4 1:56PM ; [facility] Discussed nutritional needs teach healthy choices including fruits and vegetables Last Documented On 4 2:28PM ; [facility] Patient education about a pr oper diet Last Documented On 4 2:28PM ; [facility] Discussed concerns about exe rcise : promote physical activity Last Documented On 4 2:28PM ; [facility] Not requesting contraception Last Documented On 4 2:28PM ; [facility] Discussed nutritional needs teach healthy choices including fruits and vegetables Last Documented On 3 2:01PM ; [facility] Patient education about a pr oper diet Last Documented On 3 2:01PM ; [facility] Discussed concerns about exe rcise : promote physical activity Last Documented On 3 2:01PM ; [facility] Discussed nutritional needs teach healthy choices including fruits and vegetables Last Documented On 3 10:41AM ; [facility] Patient education about a pr oper diet Last Documented On 3 10:41AM ; [facility] Discussed concerns about exe rcise : promote physical activity Last Documented On 3 10:41AM ; [facility] offered active and suppo rtive listening, normalized emotions and feelings, processed current stressors and explored coping and stress reducing skills. ~P discussed coping skills to manage increased anxiety such as breathing techniques, mindfulness and meditation. [facility] discussed potential benefit in counseling and provided resource list. ~[facility] discussed healthy lifestyle changes to implement Last Documented On 3 3:16PM ; [facility] Discussed nutritional needs teach healthy choices including fruits and vegetables Last Documented On 3 11:08AM ; [facility] Patient education about a pr oper diet Last Documented On 3 11:08AM ; [facility] Discussed concerns about exe rcise : promote physical activity Last Documented On 3 11:08AM ; [facility] Discussed nutritional needs teach healthy choices including fruits and vegetables Last Documented On 2 11:44AM ; [facility] Patient education about a pr oper diet Last Documented On 2 11:44AM ; [facility] Discussed concerns about exe rcise : promote physical activity Last Documented On 2 11:44AM ; [facility] Problems sleeping Last Documented On 2 9:03AM ; [facility] Discussed nutritional needs teach healthy choices including fruits and vegetables Last Documented On 2 8:19AM ; [facility] Patient education about a pr oper diet Last Documented On 2 8:19AM ; [facility] Discussed concerns about exe rcise : promote physical activity Last Documented On 2 8:19AM ; [facility] Discussed nutritional needs teach healthy choices including fruits and vegetables Last Documented On 2 11:56AM ; [facility] Patient education about a pr oper diet Last Documented On 2 11:56AM ; [facility] Discussed concerns about exe rcise : promote physical activity Last Documented On 2 11:56AM ; [facility] Discussed nutritional needs teach healthy choices including fruits and vegetables Last Documented On 2 12:03PM ; [facility] Patient education about a pr oper diet Last Documented On 2 12:03PM ; [facility] Discussed concerns about exe rcise : promote physical activity Last Documented On 2 12:03PM ; [facility] Discussed current self-care methods/coping skills. ~Validated and normalized pt's feelings while assisting patient process recent events. ~Encouraged ongoing counseling. ~Discussed lifestyle changes to address chronic illness. ~Supported patient's personal health goals Last Documented On 2 9:32PM ; [facility] Discussed nutritional needs teach healthy choices including fruits and vegetables Last Documented On 2 2:12PM ; [facility] Patient education about a pr oper diet Last Documented On 2 2:12PM ; [facility] Discussed concerns about exe rcise : promote physical activity Last Documented On 2 2:12PM ; [facility] Discussed nutritional needs teach healthy choices including fruits and vegetables Last Documented On 1 4:05PM ; [facility] Patient education about a pr oper diet Last Documented On 1 4:05PM ; [facility] Discussed concerns about exe rcise : promote physical activity Last Documented On 1 4:05PM ; [facility] Discussed nutritional needs teach healthy choices including fruits and vegetables Last Documented On 1 7:23PM ; [facility] Patient education about a pr oper diet Last Documented On 1 7:23PM ; [facility] Patient education about a pr oper diet Last Documented On 1 7:45PM ; [facility] Patient education about meal planning Last Documented On 1 7:45PM ; [facility] Education about changing eat ing habits Last Documented On 1 7:45PM ; [facility] Patient education about high fiber diet Last Documented On 1 7:45PM ; [facility] Patient education about low fat diet Last Documented On 1 7:45PM ; [facility] Patient education about low cholesterol diet Last Documented On 1 7:45PM ; [facility] Patient education about low carbohydrate diet Last Documented On 1 7:45PM ; [facility] Discussed concerns about exe rcise : promote physical activity Last Documented On 7:23PM ; [facility] Discussed nutritional needs teach healthy choices including fruits and vegetables Last Documented On 1 4:54PM ; [facility] Patient education about a pr oper diet Last Documented On 4:54PM ; [facility] Patient education about a pr oper diet Last Documented On 1 5:25PM ; [facility] Patient education about meal planning Last Documented On 1 5:25PM ; [facility] Education about changing eat ing habits Last Documented On 1 5:25PM ; [facility] Patient education about high fiber diet Last Documented On 1 5:25PM ; [facility] Patient education about low fat diet Last Documented On 5:25PM ; [facility] Patient education about low cholesterol diet Last Documented On 1 5:25PM ; [facility] Patient education about low carbohydrate diet Last Documented On 1 5:25PM ; [facility] Patient education about high protein diet Last Documented On 1 5:25PM ; [facility] Discussed concerns about exe rcise : promote physical activity Last Documented On 1 4:54PM ; [facility] provided active listenin g, support and helped patient process through current symptoms and stressors related to family conflict. [facility] discussed resources for housing and supports with patient. ~P discussed potential benefit of counseling and supports. Patient is willing to reconsider meeting with a provider at another agency than she has in the past as she does not want all of the same services Last Documented On 1 2:40PM ; [facility] Discussed nutritional needs teach healthy choices including fruits and vegetables Last Documented On 1 3:21PM ; [facility] Patient education about a pr oper diet Last Documented On 1 3:21PM ; [facility] Patient education about a pr oper diet Last Documented On 1 4:08PM ; [facility] Patient education about meal planning Last Documented On 1 4:08PM ; [facility] Education about changing eat ing habits Last Documented On 1 4:08PM ; [facility] Patient education about high fiber diet Last Documented On 1 4:08PM ; [facility] Patient education about low fat diet Last Documented On 1 4:08PM ; [facility] Patient education about low cholesterol diet Last Documented On 1 4:08PM ; [facility] Patient education about low carbohydrate diet Last Documented On 1 4:08PM ; [facility] Patient education about high protein diet Last Documented On 1 4:08PM ; [facility] Discussed concerns about exe rcise : promote physical activity Last Documented On 1 3:21PM ; [facility] Patient education about a pr oper diet Last Documented On 0 1:48PM ; [facility] Patient education about meal planning Last Documented On 0 1:48PM ; [facility] Education about changing eat ing habits Last Documented On 0 1:48PM ; [facility] Patient education about high fiber diet Last Documented On 0 1:48PM ; [facility] Patient education about low fat diet Last Documented On 0 1:48PM ; [facility] Patient education about low cholesterol diet Last Documented On 0 1:48PM ; [facility] Patient education about low carbohydrate diet Last Documented On 0 1:48PM ; [facility] Patient education about high protein diet Last Documented On 0 1:48PM ; [facility] offered active and suppo rtive listening, normalized emotions and feelings, processed current stressors and explored coping and stress reducing skills. ~[facility] attempted to discuss sleep hygiene strategies with patient including meditation, reducing caffeine use, increaing physical activity during the day as tolerated, and engaging in calming activities. Patient states that she has tried many things in the past and nothing has been sucessful. ~ Last Documented On 0 8:21AM ; [facility] Work Phone: Instructions Includes: Instructions for all patient encounters Education and Decision Aids were provided during visit for: Discussed nutritional needs teach healthy choices including fruits and vegetables Last Documented On 4 8:58AM ; [facility] Patient education about a pr oper diet Last Documented On 4 8:58AM ; [facility] Discussed concerns about exe rcise : promote physical activity Last Documented On 4 8:58AM ; [facility] Discussed nutritional needs teach healthy choices including fruits and vegetables Last Documented On 4 2:02PM ; [facility] Patient education about a pr oper diet Last Documented On 4 2:02PM ; [facility] Patient education about an a sthma action plan Last Documented On 4 2:13PM ; [facility] Discussed concerns about exe rcise : promote physical activity Last Documented On 4 2:02PM ; [facility] Discussed nutritional needs teach healthy choices including fruits and vegetables Last Documented On 4 8:36AM ; [facility] Patient education about a pr oper diet Last Documented On 4 8:36AM ; [facility] Discussed concerns about exe rcise : promote physical activity Last Documented On 4 8:36AM ; [facility] offered active and suppo rtive listening, normalized emotions and feelings, and processed current stressors. ~[facility] discussed coping skills to manage increased anxiety. ~[facility] discussed community resources and supports Last Documented On 4 1:56PM ; [facility] Discussed nutritional needs teach healthy choices including fruits and vegetables Last Documented On 4 2:28PM ; [facility] Patient education about a pr oper diet Last Documented On 4 2:28PM ; [facility] Discussed concerns about exe rcise : promote physical activity Last Documented On 4 2:28PM ; [facility] Not requesting contraception Last Documented On 4 2:28PM ; [facility] Discussed nutritional needs teach healthy choices including fruits and vegetables Last Documented On 3 2:01PM ; [facility] Patient education about a pr oper diet Last Documented On 3 2:01PM ; [facility] Discussed concerns about exe rcise : promote physical activity Last Documented On 3 2:01PM ; [facility] Discussed nutritional needs teach healthy choices including fruits and vegetables Last Documented On 3 10:41AM ; [facility] Patient education about a pr oper diet Last Documented On 3 10:41AM ; [facility] Discussed concerns about exe rcise : promote physical activity Last Documented On 3 10:41AM ; [facility] offered active and suppo rtive listening, normalized emotions and feelings, processed current stressors and explored coping and stress reducing skills. ~[facility] discussed coping skills to manage increased anxiety such as breathing techniques, mindfulness and meditation. P discussed potential benefit in counseling and provided resource list. ~[facility] discussed healthy lifestyle changes to implement Last Documented On 3 3:16PM ; [facility] Discussed nutritional needs teach healthy choices including fruits and vegetables Last Documented On 3 11:08AM ; [facility] Patient education about a pr oper diet Last Documented On 3 11:08AM ; [facility] Discussed concerns about exe rcise : promote physical activity Last Documented On 3 11:08AM ; [facility] Discussed nutritional needs teach healthy choices including fruits and vegetables Last Documented On 2 11:44AM ; [facility] Patient education about a pr oper diet Last Documented On 2 11:44AM ; [facility] Discussed concerns about exe rcise : promote physical activity Last Documented On 2 11:44AM ; [facility] Problems sleeping Last Documented On 2 9:03AM ; [facility] Discussed nutritional needs teach healthy choices including fruits and vegetables Last Documented On 2 8:19AM ; [facility] Patient education about a pr oper diet Last Documented On 2 8:19AM ; [facility] Discussed concerns about exe rcise : promote physical activity Last Documented On 2 8:19AM ; [facility] Discussed nutritional needs teach healthy choices including fruits and vegetables Last Documented On 2 11:56AM ; [facility] Patient education about a pr oper diet Last Documented On 2 11:56AM ; [facility] Discussed concerns about exe rcise : promote physical activity Last Documented On 2 11:56AM ; [facility] Discussed nutritional needs teach healthy choices including fruits and vegetables Last Documented On 2 12:03PM ; [facility] Patient education about a pr oper diet Last Documented On 2 12:03PM ; [facility] Discussed concerns about exe rcise : promote physical activity Last Documented On 2 12:03PM ; [facility] Discussed current self-care methods/coping skills. ~Validated and normalized pt's feelings while assisting patient process recent events. ~Encouraged ongoing counseling. ~Discussed lifestyle changes to address chronic illness. ~Supported patient's personal health goals Last Documented On 2 9:32PM ; [facility] Discussed nutritional needs teach healthy choices including fruits and vegetables Last Documented On 2 2:12PM ; [facility] Patient education about a pr oper diet Last Documented On 2 2:12PM ; [facility] Discussed concerns about exe rcise : promote physical activity Last Documented On 2 2:12PM ; [facility] Discussed nutritional needs teach healthy choices including fruits and vegetables Last Documented On 1 4:05PM ; [facility] Patient education about a pr oper diet Last Documented On 1 4:05PM ; [facility] Discussed concerns about exe rcise : promote physical activity Last Documented On 1 4:05PM ; [facility] Discussed nutritional needs teach healthy choices including fruits and vegetables Last Documented On 1 7:23PM ; [facility] Patient education about a pr oper diet Last Documented On 1 7:23PM ; [facility] Patient education about a pr oper diet Last Documented On 1 7:45PM ; [facility] Patient education about meal planning Last Documented On 1 7:45PM ; [facility] Education about changing eat ing habits Last Documented On 1 7:45PM ; [facility] Patient education about high fiber diet Last Documented On 1 7:45PM ; [facility] Patient education about low fat diet Last Documented On 1 7:45PM ; [facility] Patient education about low cholesterol diet Last Documented On 1 7:45PM ; [facility] Patient education about low carbohydrate diet Last Documented On 1 7:45PM ; [facility] Discussed concerns about exe rcise : promote physical activity Last Documented On 1 7:23PM ; [facility] Discussed nutritional needs teach healthy choices including fruits and vegetables Last Documented On 1 4:54PM ; [facility] Patient education about a pr oper diet Last Documented On 1 4:54PM ; [facility] Patient education about a pr oper diet Last Documented On 1 5:25PM ; [facility] Patient education about meal planning Last Documented On 1 5:25PM ; [facility] Education about changing eat ing habits Last Documented On 1 5:25PM ; [facility] Patient education about high fiber diet Last Documented On 1 5:25PM ; [facility] Patient education about low fat diet Last Documented On 1 5:25PM ; [facility] Patient education about low cholesterol diet Last Documented On 1 5:25PM ; [facility] Patient education about low carbohydrate diet Last Documented On 1 5:25PM ; [facility] Patient education about high protein diet Last Documented On 1 5:25PM ; [facility] Discussed concerns about exe rcise : promote physical activity Last Documented On 1 4:54PM ; [facility] provided active listenin g, support and helped patient process through current symptoms and stressors related to family conflict. [facility] discussed resources for housing and supports with patient. ~P discussed potential benefit of counseling and supports. Patient is willing to reconsider meeting with a provider at another agency than she has in the past as she does not want all of the same services Last Documented On 1 2:40PM ; [facility] Discussed nutritional needs teach healthy choices including fruits and vegetables Last Documented On 1 3:21PM ; [facility] Patient education about a pr oper diet Last Documented On 1 3:21PM ; [facility] Patient education about a pr oper diet Last Documented On 1 4:08PM ; [facility] Patient education about meal planning Last Documented On 1 4:08PM ; [facility] Education about changing eat ing habits Last Documented On 1 4:08PM ; [facility] Patient education about high fiber diet Last Documented On 1 4:08PM ; [facility] Patient education about low fat diet Last Documented On 1 4:08PM ; [facility] Patient education about low cholesterol diet Last Documented On 1 4:08PM ; [facility] Patient education about low carbohydrate diet Last Documented On 1 4:08PM ; [facility] Patient education about high protein diet Last Documented On 1 4:08PM ; [facility] Discussed concerns about exe rcise : promote physical activity Last Documented On 1 3:21PM ; [facility] Patient education about a pr oper diet Last Documented On 0 1:48PM ; [facility] Patient education about meal planning Last Documented On 0 1:48PM ; [facility] Education about changing eat ing habits Last Documented On 0 1:48PM ; [facility] Patient education about high fiber diet Last Documented On 0 1:48PM ; [facility] Patient education about low fat diet Last Documented On 0 1:48PM ; [facility] Patient education about low cholesterol diet Last Documented On 0 1:48PM ; [facility] Patient education about low carbohydrate diet Last Documented On 0 1:48PM ; [facility] Patient education about high protein diet Last Documented On 0 1:48PM ; [facility] offered active and suppo rtive listening, normalized emotions and feelings, processed current stressors and explored coping and stress reducing skills. ~[facility] attempted to discuss sleep hygiene strategies with patient including meditation, reducing caffeine use, increaing physical activity during the day as tolerated, and engaging in calming activities. Patient states that she has tried many things in the past and nothing has been sucessful. ~ Last Documented On 0 8:21AM ; [facility] Work Phone: Instructions Includes: Instructions for all patient encounters Education and Decision Aids were provided during visit for: [facility] offered active and suppo rtive listening, normalized emotions and feelings related to grief and loss, and processed current stressors related to navigating challenges with family members and planning her sisters . ~[facility] discussed importane of coping skills and supports. ~[facility] encouraged patient to follow-up with counseling resources. [facility] discussed grief support groups that patient can reach out to for additional support as she is establishing with counseling Last Documented On 4 12:10PM ; [facility] Discussed nutritional needs teach healthy choices including fruits and vegetables Last Documented On 4 8:58AM ; [facility] Patient education about a pr oper diet Last Documented On 4 8:58AM ; [facility] Discussed concerns about exe rcise : promote physical activity Last Documented On 4 8:58AM ; [facility] Discussed nutritional needs teach healthy choices including fruits and vegetables Last Documented On 4 2:02PM ; [facility] Patient education about a pr oper diet Last Documented On 4 2:02PM ; [facility] Patient education about an a sthma action plan Last Documented On 4 2:13PM ; [facility] Discussed concerns about exe rcise : promote physical activity Last Documented On 4 2:02PM ; [facility] Discussed nutritional needs teach healthy choices including fruits and vegetables Last Documented On 4 8:36AM ; [facility] Patient education about a pr oper diet Last Documented On 4 8:36AM ; [facility] Discussed concerns about exe rcise : promote physical activity Last Documented On 4 8:36AM ; [facility] offered active and suppo rtive listening, normalized emotions and feelings, and processed current stressors. ~[facility] discussed coping skills to manage increased anxiety. ~[facility] discussed community resources and supports Last Documented On 4 1:56PM ; [facility] Discussed nutritional needs teach healthy choices including fruits and vegetables Last Documented On 4 2:28PM ; [facility] Patient education about a pr oper diet Last Documented On 4 2:28PM ; [facility] Discussed concerns about exe rcise : promote physical activity Last Documented On 4 2:28PM ; [facility] Not requesting contraception Last Documented On 4 2:28PM ; [facility] Discussed nutritional needs teach healthy choices including fruits and vegetables Last Documented On 3 2:01PM ; [facility] Patient education about a pr oper diet Last Documented On 3 2:01PM ; [facility] Discussed concerns about exe rcise : promote physical activity Last Documented On 3 2:01PM ; [facility] Discussed nutritional needs teach healthy choices including fruits and vegetables Last Documented On 3 10:41AM ; [facility] Patient education about a pr oper diet Last Documented On 3 10:41AM ; [facility] Discussed concerns about exe rcise : promote physical activity Last Documented On 3 10:41AM ; [facility] and supp[facility] rtive [facility], normalized emotions and feelings, processed current stressors and explored coping and stress reducing skills. ~P discussed coping skills to manage increased anxiety such as breathing techniques, mindfulness and meditation. [facility] discussed potential benefit in counseling and provided resource list. ~[facility] discussed healthy lifestyle changes to implement Last Documented On 3 3:16PM ; [facility] Discussed nutritional needs teach healthy choices including fruits and vegetables Last Documented On 3 11:08AM ; [facility] Patient education about a pr oper diet Last Documented On 3 11:08AM ; [facility] Discussed concerns about exe rcise : promote physical activity Last Documented On 3 11:08AM ; [facility] Discussed nutritional needs teach healthy choices including fruits and vegetables Last Documented On 2 11:44AM ; [facility] Patient education about a pr oper diet Last Documented On 2 11:44AM ; [facility] Discussed concerns about exe rcise : promote physical activity Last Documented On 2 11:44AM ; [facility] Problems sleeping Last Documented On 2 9:03AM ; [facility] Discussed nutritional needs teach healthy choices including fruits and vegetables Last Documented On 2 8:19AM ; [facility] Patient education about a pr oper diet Last Documented On 2 8:19AM ; [facility] Discussed concerns about exe rcise : promote physical activity Last Documented On 2 8:19AM ; [facility] Discussed nutritional needs teach healthy choices including fruits and vegetables Last Documented On 2 11:56AM ; [facility] Patient education about a pr oper diet Last Documented On 2 11:56AM ; [facility] Discussed concerns about exe rcise : promote physical activity Last Documented On 2 11:56AM ; [facility] Discussed nutritional needs teach healthy choices including fruits and vegetables Last Documented On 2 12:03PM ; [facility] Patient education about a pr oper diet Last Documented On 2 12:03PM ; [facility] Discussed concerns about exe rcise : promote physical activity Last Documented On 2 12:03PM ; [facility] Discussed current self-care methods/coping skills. ~Validated and normalized pt's feelings while assisting patient process recent events. ~Encouraged ongoing counseling. ~Discussed lifestyle changes to address chronic illness. ~Supported patient's personal health goals Last Documented On 2 9:32PM ; [facility] Discussed nutritional needs teach healthy choices including fruits and vegetables Last Documented On 2 2:12PM ; [facility] Patient education about a pr oper diet Last Documented On 2 2:12PM ; [facility] Discussed concerns about exe rcise : promote physical activity Last Documented On 2 2:12PM ; [facility] Discussed nutritional needs teach healthy choices including fruits and vegetables Last Documented On 1 4:05PM ; [facility] Patient education about a pr oper diet Last Documented On 1 4:05PM ; [facility] Discussed concerns about exe rcise : promote physical activity Last Documented On 1 4:05PM ; [facility] Discussed nutritional needs teach healthy choices including fruits and vegetables Last Documented On 1 7:23PM ; [facility] Patient education about a pr oper diet Last Documented On 1 7:23PM ; [facility] Patient education about a pr oper diet Last Documented On 1 7:45PM ; [facility] Patient education about meal planning Last Documented On 1 7:45PM ; [facility] Education about changing eat ing habits Last Documented On 1 7:45PM ; [facility] Patient education about high fiber diet Last Documented On 1 7:45PM ; [facility] Patient education about low fat diet Last Documented On 1 7:45PM ; [facility] Patient education about low cholesterol diet Last Documented On 1 7:45PM ; [facility] Patient education about low carbohydrate diet Last Documented On 1 7:45PM ; [facility] Discussed concerns about exe rcise : promote physical activity Last Documented On 1 7:23PM ; [facility] Discussed nutritional needs teach healthy choices including fruits and vegetables Last Documented On 1 4:54PM ; [facility] Patient education about a pr oper diet Last Documented On 1 4:54PM ; [facility] Patient education about a pr oper diet Last Documented On 1 5:25PM ; [facility] Patient education about meal planning Last Documented On 1 5:25PM ; [facility] Education about changing eat ing habits Last Documented On 1 5:25PM ; [facility] Patient education about high fiber diet Last Documented On 1 5:25PM ; [facility] Patient education about low fat diet Last Documented On 1 5:25PM ; [facility] Patient education about low cholesterol diet Last Documented On 1 5:25PM ; [facility] Patient education about low carbohydrate diet Last Documented On 1 5:25PM ; [facility] Patient education about high protein diet Last Documented On 1 5:25PM ; [facility] Discussed concerns about exe rcise : promote physical activity Last Documented On 1 4:54PM ; [facility] provided active listenin g, support and helped patient process through current symptoms and stressors related to family conflict. [facility] discussed resources for housing and supports with patient. ~P discussed potential benefit of counseling and supports. Patient is willing to reconsider meeting with a provider at another agency than she has in the past as she does not want all of the same services Last Documented On 1 2:40PM ; [facility] Discussed nutritional needs teach healthy choices including fruits and vegetables Last Documented On 1 3:21PM ; [facility] Patient education about a pr oper diet Last Documented On 1 3:21PM ; [facility] Patient education about a pr oper diet Last Documented On 1 4:08PM ; [facility] Patient education about meal planning Last Documented On 1 4:08PM ; [facility] Education about changing eat ing habits Last Documented On 1 4:08PM ; [facility] Patient education about high fiber diet Last Documented On 1 4:08PM ; [facility] Patient education about low fat diet Last Documented On 1 4:08PM ; [facility] Patient education about low cholesterol diet Last Documented On 1 4:08PM ; [facility] Patient education about low carbohydrate diet Last Documented On 1 4:08PM ; [facility] Patient education about high protein diet Last Documented On 1 4:08PM ; [facility] Discussed concerns about exe rcise : promote physical activity Last Documented On 1 3:21PM ; [facility] Patient education about a pr oper diet Last Documented On 0 1:48PM ; [facility] Patient education about meal planning Last Documented On 0 1:48PM ; [facility] Education about changing eat ing habits Last Documented On 0 1:48PM ; [facility] Patient education about high fiber diet Last Documented On 0 1:48PM ; [facility] Patient education about low fat diet Last Documented On 0 1:48PM ; [facility] Patient education about low cholesterol diet Last Documented On 0 1:48PM ; [facility] Patient education about low carbohydrate diet Last Documented On 0 1:48PM ; [facility] Patient education about high protein diet Last Documented On 0 1:48PM ; [facility] offered active and suppo rtive listening, normalized [...] ~ Last Documented On 0 8:21AM ; [facility] Work Phone: Instructions Includes: Instructions for all patient encounters Education and Decision Aids were provided during visit for: Discussed nutritional needs teach healthy choices including fruits and vegetables Last Documented On 4 4:57PM ; [facility] Patient education about a pr oper diet Last Documented On 4 4:57PM ; [facility] Discussed concerns about exe rcise : promote physical activity Last Documented On 4 4:57PM ; [facility] offered active and suppo rtive listening, normalized emotions and feelings related to grief and loss, and processed current stressors related to navigating challenges with family members and planning her sisters . ~[facility] discussed importane of coping skills and supports. [facility] encouraged patient to follow-up with counseling resources. [facility] discussed grief support groups that patient can reach out to for additional support as she is establishing with counseling Last Documented On 4 12:10PM ; [facility] Discussed nutritional needs teach healthy choices including fruits and vegetables Last Documented On 4 8:58AM ; [facility] Patient education about a pr oper diet Last Documented On 4 8:58AM ; [facility] Discussed concerns about exe rcise : promote physical activity Last Documented On 4 8:58AM ; [facility] Discussed nutritional needs teach healthy choices including fruits and vegetables Last Documented On 4 2:02PM ; [facility] Patient education about a pr oper diet Last Documented On 4 2:02PM ; [facility] Patient education about an a sthma action plan Last Documented On 4 2:13PM ; [facility] Discussed concerns about exe rcise : promote physical activity Last Documented On 4 2:02PM ; [facility] Discussed nutritional needs teach healthy choices including fruits and vegetables Last Documented On 4 8:36AM ; [facility] Patient education about a pr oper diet Last Documented On 4 8:36AM ; [facility] Discussed concerns about exe rcise : promote physical activity Last Documented On 4 8:36AM ; [facility] and suppo rtive listening, normalized emotions and feelings, and processed current stressors. ~[facility] discussed coping skills to manage increased anxiety. ~[facility] discussed community resources and supports Last Documented On 4 1:56PM ; [facility] Discussed nutritional needs teach healthy choices including fruits and vegetables Last Documented On 4 2:28PM ; [facility] [facility] [place] Patient education about a pr oper diet Last Documented On 4 2:28PM ; [facility] [place] Discussed concerns about exe rcise : promote physical activity Last Documented On 4 2:28PM ; [facility] [place] Not requesting contraception Last Documented On 4 2:28PM ; [facility] [place] Discussed nutritional needs teach healthy choices including fruits and vegetables Last Documented On 3 2:01PM ; [facility] [place] Patient education about a pr oper diet Last Documented On 3 2:01PM ; [facility] [place] Discussed concerns about exe rcise : promote physical activity Last Documented On 3 2:01PM ; [facility] [place] Discussed nutritional needs teach healthy choices including fruits and vegetables Last Documented On 3 10:41AM ; [facility] [place] Patient education about a pr oper diet Last Documented On 3 10:41AM ; [facility] [place] Discussed concerns about exe rcise : promote physical activity Last Documented On 3 10:41AM ; [facility] offered active and suppo rtive listening, normalized emotions and feelings, processed current stressors and explored coping and stress reducing skills. ~[facility] discussed coping skills to manage increased anxiety such as breathing techniques, mindfulness and meditation. BHP discussed potential benefit in counseling and provided resource list. ~[facility] discussed healthy lifestyle changes to implement Last Documented On 3 3:16PM ; [facility] [place] Discussed nutritional needs teach healthy choices including fruits and vegetables Last Documented On 3 11:08AM ; [facility] [place] Patient education about a pr oper diet Last Documented On 3 11:08AM ; [facility] [place] Discussed concerns about exe rcise : promote physical activity Last Documented On 3 11:08AM ; [facility] [place] Discussed nutritional needs teach healthy choices including fruits and vegetables Last Documented On 2 11:44AM ; [facility] [place] Patient education about a pr oper diet Last Documented On 2 11:44AM ; [facility] [place] Discussed concerns about exe rcise : promote physical activity Last Documented On 2 11:44AM ; [facility] Problems sleeping Last Documented On 2 9:03AM ; [facility] [place] Discussed nutritional needs teach healthy choices including fruits and vegetables Last Documented On 2 8:19AM ; [facility] [place] Patient education about a pr oper diet Last Documented On 2 8:19AM ; [facility] [place] Discussed concerns about exe rcise : promote physical activity Last Documented On 2 8:19AM ; [facility] [place] Discussed nutritional needs teach healthy choices including fruits and vegetables Last Documented On 2 11:56AM ; [facility] [place] Patient education about a pr oper diet Last Documented On 2 11:56AM ; [facility] [place] Discussed concerns about exe rcise : promote physical activity Last Documented On 2 11:56AM ; [facility] [place] Discussed nutritional needs teach healthy choices including fruits and vegetables Last Documented On 2 12:03PM ; [facility] [place] Patient education about a pr oper diet Last Documented On 2 12:03PM ; [facility] Discussed concerns about exe rcise : promote physical activity Last Documented On 2 12:03PM ; [facility] Discussed current self-care methods/coping skills. ~Validated and normalized pt's feelings while assisting patient process recent events. ~Encouraged ongoing counseling. ~Discussed lifestyle changes to address chronic illness. ~Supported patient's personal health goals Last Documented On 2 9:32PM ; [facility] Discussed nutritional needs teach healthy choices including fruits and vegetables Last Documented On 2 2:12PM ; [facility] [place] Patient education about a pr oper diet Last Documented On 2 2:12PM ; [facility] [place] Discussed concerns about exe rcise : promote physical activity Last Documented On 2 2:12PM ; [facility] [place] Discussed nutritional needs teach healthy choices including fruits and vegetables Last Documented On 1 4:05PM ; [facility] [place] Patient education about a pr oper diet Last Documented On 1 4:05PM ; [facility] [place] Discussed concerns about exe rcise : promote physical activity Last Documented On 1 4:05PM ; [facility] [place] Discussed nutritional needs teach healthy choices including fruits and vegetables Last Documented On 1 7:23PM ; [facility] [place] Patient education about a pr oper diet Last Documented On 1 7:23PM ; [facility] [place] Patient education about a pr oper diet Last Documented On 1 7:45PM ; [facility] [place] Patient education about meal planning Last Documented On 1 7:45PM ; [facility] Education about changing eat ing habits Last Documented On 1 7:45PM ; [facility] [place] Patient education about high fiber diet Last Documented On 1 7:45PM ; [facility] [place] Patient education about low fat diet Last Documented On 1 7:45PM ; [facility] [place] Patient education about low cholesterol diet Last Documented On 1 7:45PM ; [facility] [place] Patient education about low carbohydrate diet Last Documented On 1 7:45PM ; [facility] [place] Discussed concerns about exe rcise : promote physical activity Last Documented On 1 7:23PM ; [facility] [place] Discussed nutritional needs teach healthy choices including fruits and vegetables Last Documented On 1 4:54PM ; [facility] [place] Patient education about a pr oper diet Last Documented On 1 4:54PM ; [facility] [place] Patient education about a pr oper diet Last Documented On 1 5:25PM ; [facility] [place] Patient education about meal planning Last Documented On 1 5:25PM ; [facility] [place] Education about changing eat ing habits Last Documented On 1 5:25PM ; [facility] [place] Patient education about high fiber diet Last Documented On 1 5:25PM ; [facility] [place] Patient education about low fat diet Last Documented On 1 5:25PM ; [facility] [place] Patient education about low cholesterol diet Last Documented On 1 5:25PM ; [facility] [place] Patient education about low carbohydrate diet Last Documented On 1 5:25PM ; [facility] [place] Patient education about high protein diet Last Documented On 1 5:25PM ; [facility] Discussed concerns about exe rcise : promote physical activity Last Documented On 1 4:54PM ; [facility] BHP provided active listenin g, support and helped patient process through current symptoms and stressors related to family conflict. BHP/SUPERVISOR STOCK RANCH discussed resources for housing and supports with patient. ~P discussed potential benefit of counseling and supports. Patient is willing to reconsider meeting with a provider at another agency than she has in the past as she does not want all of the same services Last Documented On 1 2:40PM ; [facility] Discussed nutritional needs teach healthy choices including fruits and vegetables Last Documented On 1 3:21PM ; [facility] [place] Patient education about a pr oper diet Last Documented On 1 3:21PM ; [facility] [place] Patient education about a pr oper diet Last Documented On 1 4:08PM ; [facility] [place] Patient education about meal planning Last Documented On 1 4:08PM ; [facility] [place] Education about changing eat ing habits Last Documented On 1 4:08PM ; [facility] [place] Patient education about high fiber diet Last Documented On 1 4:08PM ; [facility] [place] Patient education about low fat diet Last Documented On 1 4:08PM ; [facility] Patient education about low cholesterol diet Last Documented On 1 4:08PM ; [facility] Patient education about low carbohydrate diet Last Documented On 1 4:08PM ; [facility] [place] Patient education about high protein diet Last Documented On 1 4:08PM ; [facility] [place] Discussed concerns about exe rcise : promote physical activity Last Documented On 1 3:21PM ; [facility] Patient education about a pr oper diet Last Documented On 0 1:48PM ; [facility] [place] Patient education about meal planning Last Documented On 0 1:48PM ; [facility] [place] Education about changing eat ing habits Last Documented On 0 1:48PM ; [facility] [place] Patient education about high fiber diet Last Documented On 0 1:48PM ; [facility] Patient education about low fat diet Last Documented On 0 1:48PM ; [facility] Patient education about low cholesterol diet Last Documented On 0 1:48PM ; [facility] [place] Patient education about low carbohydrate diet Last Documented On 0 1:48PM ; [facility] Patient education about high protein diet Last Documented On 0 1:48PM ; [facility] offered active and suppo rtive listening, normalized emotions and feelings, processed current stressors and explored coping and stress reducing skills. ~[facility] attempted to discuss sleep hygiene strategies with patient including meditation, reducing caffeine use, increaing physical activity during the day as tolerated, and engaging in calming activities. Patient states that she has tried many things in the past and nothing has been sucessful. ~ Last Documented On 0 8:21AM ; [facility] Work Phone: Patient problem outcome Narrative Includes: Evaluations & Outcomes for active Goals No [facility] [place] Work Phone: reason for referral (narrative)No Reason for Referral [facility]ed[facility] [place] Work Phone: reason for visit Narrative* Auth/Cert Specialty Diagnoses / Procedures Referred By Contac t Referred To Contact Diagnoses Chronic RLQ pain RLQ PAIN Procedures MA REMOVAL OF OVARY(S) OOPHORECTOMY LAPAROSCOPIC-POSSIBLE LAPAROTOMY Geoff Chu MD [address] [address] [address] [place] [address] Referral ID Status Reason Start Date Expiration Date Visits Re quested Visits Authorized [id number] 1 1 [employer] Phone: reason for visit Narrative* Auth/Cert Specialty Diagnoses / Procedures Referred By [facility] Referred To Contact [address] [place] [address] Referral ID Status Reason Start Date Expiration Date Visits Re quested Visits Authorized [id number] 1 1 [employer] Phone: reason for visit Narrative* Treatment Plan and Therapy Plan (Routine) - Open Specialty Diagnoses / Procedures Referred By [facility] Referred To Contact Diagnoses Dog bite, initial encounter Nasreen Pennington PA-C [address] [place] [address] [facility] [address] [place] [address] Referral ID Status Reason Start Date Expiration Date Visits Re quested Visits Authorized [id number] Open 03/11/2023 03/10/2024 1 1 KURTIS MEJIA [facility] N[facility]ative - Reported Review of Systems not supported for this document type No Review of Systems [facility] Work Phone: History of Past Illness Name [...] Encounter for routine laboratory testing Mar 23 017 2:57PM Hypertriglyceridemia Oct 05 2017 11:18AM [...] Encounter for routine laboratory testing Mar 23 017 2:57PM Hypertriglyceridemia Oct 05 2017 11:18AM [...] Primary Findings Encounter Date Anxiety disorder NOS Telebehavioral [facility] Oliva Short LISWS 10/20/2019 [facility] Diagnosis Stroke-like symptoms Other symptoms involving [...] Telemedicine Establi sted Patient with Ena Fung ASPHALT HEATER OPERATOR 05/02/2020 Exposure to a viral disease Telemedicine Establisted Patient with Ena Fung ASPHALT HEATER OPERATOR 05/02/2020 Obesity due to excess calories [facility] Establ[facility] Patient with Ena Fung ASPHALT HEATER OPERATOR 05/02/2020 Anxiety disorder NOS [facility] ealt with Oliva Short LISWS 10/20/2019 Depressive disorder Telebehavioral He alth with Oliva Short LISWS 10/20/2019 Findings Encounter Date Exposure to a viral disease Telemedicine Establisted Patient with Tao Reece ASPHALT HEATER OPERATOR 06/04/2020 Exposure to biological agent suspected Telemedicine Establisted Patient with Tao Reece ASPHALT HEATER OPERATOR 06/04/2020 Body mass index Telemedicine Establi sted Patient with Ena Fung ASPHALT HEATER OPERATOR 05/02/2020 Exposure to a viral disease Telemedicine Establisted Patient with Ena Fung ASPHALT HEATER OPERATOR 05/02/2020 Obesity due to excess calories Telemedic ine Establisted Patient with Ena Fung ASPHALT HEATER OPERATOR 05/02/2020 Anxiety disorder NOS Telebehavioral H ealth with Oliva Short LISWS 10/20/2019 Depressive disorder Telebehavioral He alth with Oliva Short LISWS 10/20/2019 Diagnosis Chest pain, unspecified type Diagnosis Atypical chest pain Other chest pain Palpitations ASHD (arteriosclerotic heart disease) Coronary atherosclerosis of unspecified type of vessel, [place] or graft S/P PTCA (percutaneous transluminal coronary [...] Coronary atherosclerosis of unspecified type of vessel, [place] or graft S/P PTCA (percutaneous transluminal coronary [...] 09/04/2020 Medical Established Patient with Ena Fung [facility] 09/04/2020 Obesity due to excess calories Medical E stablished Patient with Ena Fung [facility] 09/04/2020 Z68.34 - Body mass index [BM I] 34.0-34.9, adult Medical Established Patient with Ena Fung [facility] 09/04/2020 Exposure to a viral disease Telemedicine Establisted Patient with Tao Reece [facility] 06/04/2020 Exposure to biological agent suspected Telemedicine Establisted Patient with Tao Reece [facility] 06/04/2020 Body mass index Telemedicine Establi sted Patient with Ena Fung [facility] 05/02/2020 Exposure to a viral disease Telemedicine Establisted Patient with Ena Fung [facility] 05/02/2020 Obesity due to excess calories Telemedic ine Establisted Patient with Ena Fung [facility] 05/02/2020 Anxiety disorder NOS [facility] Telebehavioral H ealth with Oliva Short LISWS 10/20/2019 Depressive disorder BH Telebehavioral He alth with Oliva Short LISWS 10/20/2019 Diagnosis Pre-op testing Preoperative examination, unspecified Diagnosis Right sided abdominal pain Abdominal pain, unspecified site Diagnosis Preoperative testing Preoperative examination, unspecified Advance Directives Documents on File Type Date Recorded Patient Prescription Eyeglass Maker Expl anation Advance Directives and Living Will Power of Prop Making Supervisor Latest Code Status on File Code Status [...] Documents on File Type Date Recorded Patient Prescription Eyeglass Maker Expl anation Advance Directives and Living Will Power of Prop Making Supervisor Latest Code Status on File Code Status [...] Documents on File Type Date Recorded Patient Prescription Eyeglass Maker Expl anation ACP-Advance Directive ACP-Power of Prop Making Supervisor Documents on File Type Date Recorded Patient Prescription Eyeglass Maker Expl anation ACP-Advance Directive ACP-Power of Prop Making Supervisor Latest Code Status on File Code Status [...] Communication Layo Gardner Child Primary Decision Maker [phone] (Home) Healthcare Agents on File Name Relationship Healthcare Agent Relationshi p Communication Layo Gardner Child Primary Decision Maker [phone] (Home) Latest Code Status on File Code [...] Communication Layo Gardner Child Primary Decision Maker [phone] (Home) Latest Code Status on File Code [...] Communication Layo Gardner Child Primary Decision Maker [phone] (Home) Healthcare Agents on File Name Relationship [...] sent through Care Everywhere. * Migraine Headache (Macedonian) * Migraine Headache: Recurring (Macedonian) documented in this encounter* Instructions* Mariana Adames, [...] through Care Everywhere. * Nausea and Vomiting (Macedonian) documented in this encounter* Attachments The following attachments cannot be sent through Care Everywhere. * BPPV (Benign Paroxysmal Positional Vertigo) (Macedonian) documented in this encounter* Attachments The following attachments cannot be sent through Care Everywhere. * PCI (PERCUTANEOUS CORONARY INTERVENTION): POST-OP (MACANESE) documented in this encounter* Instructions* Jose Juan Ortega APRN - CNP - 04/28/2020 Return to the emergency department for worsening symptoms. Follow-up with your primary care provider for suture removal and 7 to 10 days. * Attachments The following attachments cannot be sent through Care Everywhere. * Lacerations: Stitches (Macedonian) documented in this encounter* Instructions* Jose Juan Ortega APRN - CNP - 06/17/2020 Return to the emergency department for worsening symptoms. Follow-up with your primary care provider. * Attachments The following attachments cannot be sent through Care Everywhere. * Chest Pain (Macedonian) documented in this encounter* Discharge Instr - [...] most local grocery stores, pharmacies, and chain [employer]ores. ? If you have any questions about your diet or nutrition, call the hospital and ask for the dietitian. General diet * Attachments The following attachments cannot be sent through Care Everywhere. * Abdominal Pain (Macedonian) documented in this encounter History of Present Illness * Blaire Shukla, CLINICAL EDUCATION CONSULTANT - ASPHALT HEATER OPERATOR - 04/21/2019 8:39 AM EDT NEUROLOGY INPATIENT [...] who was admitted as a transfer from [facility] on 04/19/2019 with complaints of left-sided [...] vasculitis or fibromuscular dysplasia. On arrival to [facility] ED she also reported right lower quadrant [...] Take 54 mg by mouth daily s [facility] pharmacy: Please dispense generic fenofibrate unless prescriber [...] approach/ Mikaela Webb/ Dr. Ronan Rodriguez CHOLECYSTECTOMY 2008 COLONOSCOPY 2011 history of polyps COLONOSCOPY 06/17/2017 HYSTERECTOMY MASTOID SURGERY MA COLON CA SCRN NOT HI RSK IND N/A 06/17/2017 COLONOSCOPY performed by Johanne Sherman DO at [facility] OR SPINE SURGERY lower back UPPER GASTROINTESTINAL ENDOSCOPY N/A 12/03/2018 EGD ESOPHAGOGASTRODUODENOSCOPY performed by Matt Harris MD at [facility] OR Social History: Mike Sharif [...] 5.5 04/20/2019 LABMICR CANNOT BE CALCULATED 10/27/2014 [id number] 11/05/2016 Diagnostic data reviewed: CT HEAD [...] Lindsey MD - 04/21/2019 6:42 AM EDT [facility] Internal Medicine Teaching Residency Program Inpatient Daily Progress Note Patient: Mike Sharif Date of : 1975 Acct: [id number] Room: Admit date: 04/19/2019 Today's date: 04/21/19 [...] per the patient. She was brought to [facility], CT head was done which was normal and she was transferred to [facility]. A CTA head and neck showed [...] Diagnostic Labs: CBC: Recent Labs 04/19/19 1352 04/19/19 2240 04/20/19 0953 WBC 7.9 9.0 15.1* RBC 3.99 [...] PT/OT: Onboard Discharge Planning / SW: manager forensic Krysten Lindsey MD Internal Medicine Resident, PGY-1 [facility]; [place], [place] 04/21/2019, 6:42 AM Associated attestation - [...] this chart was generated using voice recognition [employer] dictation software. Although every effort was made to ensure the accuracy of this automated otr driver, some errors in otr driver may have occurred. * Mary Jane Oconnor MD - 04/20/2019 8:32 AM EDT [facility] Neurology IN-PATIENT SERVICE [facility] Progress note Date: 04/20/2019 Patient name: Mike Sharif Date of admission: 04/19/2019 8:00 PM Account: [id number] Date of : 1975 PCP: EFFIE Garcia [...] The patient mentioned significant history of early GA and stroke in family in early 30s [...] hyperlipidemia on Lipitor, family history of early GA and stroke in early 30s, was transferred from [facility] for strokelike symptoms. She admitted to the [...] approach/ Mikaela Webb/ Dr. Ronan Rodriguez CHOLECYSTECTOMY 2008 COLONOSCOPY 2010 history of polyps COLONOSCOPY 06/17/2017 HYSTERECTOMY MASTOID SURGERY MA COLON CA SCRN NOT HI RSK IND N/A 06/17/2017 COLONOSCOPY performed by Johanne Sherman DO at [facility] OR SPINE SURGERY lower back UPPER GASTROINTESTINAL ENDOSCOPY N/A 12/03/2018 EGD ESOPHAGOGASTRODUODENOSCOPY performed by Matt Harris MD at [facility] OR Medications Prior to Admission: [...] ms QTc Calculation (Bazett) 443 ms P [place] 45 degrees R [place] -16 degrees T [place] -20 degrees Troponin Collection Time: 04/19/19 4:56 [...] ms QTc Calculation (Bazett) 430 ms P [place] 38 degrees R [place] -15 degrees T [place] 1 degrees CBC Auto Differential Collection Time: [...] 1.00 (L) 1.10 - 3.70 k/uL Absolute [place] # 0.11 0.10 - 1.20 k/uL Absolute [...] - 0.90 mg/dL Bun/Cre Ratio NOT REPORTED Calcium 9.1 8.6 - 10.4 mg/dL Sodium [...] - 0.90 mg/dL Bun/Cre Ratio NOT REPORTED Calcium 9.5 8.6 - 10.4 mg/dL Sodium [...] PM Copy sent to Dr. Ena Fung, EFFIE - ASPHALT HEATER OPERATOR Associated attestation - Terrence Lyle MD - [...] face arm and leg . 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 Head CT normal transferred to [facility] . CTA head and neck [...] History of Present Illness Recorded* Tao Luciano, NATURAL DEVELOPER - 10/10/2019 10:53 AM EDT Speech Language Pathology Speech Language Pathology [facility] Cognitive Treatment Note Date: 10/10/2019 Patient s [...] K29.00 Hematuria R31.9 Melena K92.1 Stable angina ([facility]) I20.8 Stroke-like symptoms R29.90 Right lower quadrant abdominal pain R10.31 TIA (transient ischemic attack) G45.9 Acute nonintractable headache R51 Paresthesias R20.2 Pain: 0/10 Cognitive Treatment Treatment time: 1201-6403 Subjective: [x] Alert [x] Cooperative [] Confused [...] ST: Discharge recommendations: [] Inpatient Rehab [] Retirement Facility [] Outpatient Therapy [] Follow up at trauma clinic [x] Other: Further therapy recommended at discharge. Treatment completed by: TAO LUCIANO M.A. CCC-NATURAL DEVELOPER * Scarlet Llanos, HOTSHOT SUPERINTENDENT - 10/10/2019 9:38 AM EDT Physical Therapy Facility/Department: [address] [facility] Daily Treatment Note NAME: Mike [...] Code Treatment Minutes: 25 Minutes Scarlet Llanos PTA * Juli Ramírez - 10/09/2019 4:39 PM [...] Ambulation Assistance: Independent Transfer Assistance: Independent Active Police Cadet: Yes Occupation: Unemployed Leisure & Hobbies: Maylin paintings Additional Comments: Pt amb at grocery without deficit, father in home has Parkinson's disease Objective Vision: Impaired Vision Exceptions: Wears glasses at all times(Pt c/o having difficulty looking to R this date, no major deficits noted by group underwriter during func activities) Hearing: Within functional limits [...] Education & Training, Safety Education & Training [facility] Inpatient Daily Activity Raw Score: 21 (10/09/19 1553) AM-PAC Inpatient ADL T-Scale Score : 44.27 (10/09/19 1553) ADL Inpatient CMS 0-100% Score: 32.79 (10/09/19 155) ADL Inpatient CMS G-Code Modifier : CJ [...] 10/09/2019 2:35 PM EDT Physical Therapy Facility/Department: [address] Initial Assessment NAME: Mike Sharif : [...] Ambulation Assistance: Independent Transfer Assistance: Independent Active Police Cadet: Yes Occupation: Unemployed Additional Comments: Pt amb [...] LOB with normal amb Distance: 200' Comments: NETWORK DIRECTOR Reyes for heel-toe stepping and high knee ambulation. Stairs/Curb Stairs?: No Balance Posture: Good Sitting - Static: Good Sitting - Dynamic: Good Standing - Static: Good;- Standing - Dynamic: Fair;+ Comments: no AD used, NETWORK DIRECTOR reyes for higher end dynamic standing balance [...] Restraints Initially in place: No AM-PAC Score [facility] Inpatient Mobility Raw Score : 22 (10/09/191433) [facility] Inpatient T-Scale Score : 53.28 (10/09/191433) Mobility Inpatient CMS 0-100% Score: 20.91 (10/09/191433) Mobility Inpatient [facility] G-Code Modifier : CJ (10/09/191433) Goals Short [...] Timed Code Treatment Minutes: 8 Minutes Tani Brambila, PT * Cristina Roa, NATURAL DEVELOPER - 10/09/2019 1:19 PM EDT Speech Language Pathology Facility/Department: [address] [facility] Initial Speech/Language/Cognitive Assessment NAME: Mike Sharif : [...] Further therapy recommended at discharge. Recommendations: Requires NATURAL DEVELOPER Intervention: Yes Duration/Frequency of Treatment: 3-5X Plan: [...] - 12/29/2019 9:20 AM EDT Call from [facility]. Clarification of transport needs and paperwork faxed. * Maggie Benavides RN - 12/29/2019 9:02 AM EDT Call placed to Mireille at [facility] lab, updated on transfer in progress, [facility] accepting. * Mena Ramirez RN - 12/29/2019 5:25 AM EDT EKG done at this time. Result showing Sinus Brice. * Mena Ramirez RN - 12/29/2019 1:52 AM EDT [place] Man changed patient's IV dressing at this time [...] EDT Report called to Denia GUEVARA at [facility] laborer beam house pre/post area. * Celina Moran RN - [...] 8:05 PM EDT Report called, transferred to [facility] per wheelchair * Beronica Mason RN - 12/29/2019 7:30 PM EDT Ambulated to bathroom and in halls. Gait steady.. Right groin puncture site and right pedal pulse assessment unchanged. Small amount of bloody drainage noted. No active bleeding. Area cleansed and new band aid applied. Up in chair * Beronica Mason RN - 12/29/2019 3:42 PM EDT Received post procedure to [facility] to room 11. Assessment obtained. [...] red dot bag, [facility] outside of room for transport to [...] Problems: Essential hypertension Plan: Abdominal pain Plan: * Jimmie Gomez MD - 08/29/2020 7:40 AM EST Progress [...] quadrant Has pain but w/u ids neg. Childcare Director consult appreciated Advanced diet and if tolerated [...] many days I start to feel funny. Skidway Man spoke with Dr. Chu and he is [...] Patient at this time. Patient resides in [place] with her son and parents. She uses a CPAP machine as her only DME. Patient has no services currently in place. She drives herself and provides for her own transportation needs. Patient has diagnosis' of Anxiety and Depression. Has sought counseling services through [facility] in the past. PCP now prescribes medication for her for this. PCP is Ena Wray CNP. Patient has [place] [employer] Medicaid and needs no further assistance with medication costs at this time. Discharge plan is home with family when medically stable. Patient is a 'Full Code' status and is interested in information re: Advanced Directives. Referral made to [facility], Chaplain Burnett, for her assistance with this request. 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 Hopes to be [...] INTAKE/OUTPUT: Intake/Output Summary (Last 24 hours) at 08/28/2020 0821 Last data filed at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 Reason: Unreviewed Transfer Orders)1449 ([facility] Unhold - Provider: Graciela Tovar RN) PRN Medication Order 01/01/2021 01/02/2021 01/03/2021 0.9 % sodium chloride infusion 25 mL, Intravenous, at 100 mL/hr, PRN, If patient receiving piggyback infusions without ordered maintenance IV fluids or with frequent/long duration piggyback infusions, Starting on Vivian 01/02/21 at 1132, Administer at the same rate as the piggyback being infused. 1145 ([facility] Hold - Provider: Vivian [employer] - Reason: Unreviewed Transfer Orders)1449 ([facility] Unhold - Provider: Graciela Tovar RN) acetaminophen (TYLENOL) suppository 650 mg(Linked Group 1) 650 mg, Rectal, EVERY 6 HOURS PRN, Pain Mild (1-3), Fever, For temp greater than 100.4 F (38 C), Starting on Wed01/02/21 at 1132, Administer if oral route cannot be used. 1711 (See Alternative - Provider: Stacy Hugo RN)2318 (See Alternative - Provider: Mike Zafar RN) 1145 (MAR Hold - Provider: [facility] [employer] - Reason: Unreviewed Transfer Orders)1449 ([facility] Unhold - Provider: Graciela Tovar RN) acetaminophen (TYLENOL) tablet 650 mg(Linked Group 1) 650 mg, Oral, EVERY 6 HOURS PRN, Pain Mild (1-3), Fever, For temp greater than 100.4 F (38 C), Starting on Wed01/02/21 at 1132, Maximum dose of acetaminophen is 4000 mg from all sources in 24 hours. 1711 (Given - Provider: Stacy Hugo RN)2318 (Given - Provider: Mike Zafar RN) 1145 (MAR Hold - Provider: [facility] [employer] - Reason: Unreviewed Transfer Orders)1449 ([facility] Unhold - Provider: Graciela Tovar RN) dicyclomine (BENTYL) capsule 10 mg 10 mg, Oral, 3 TIMES DAILY PRN, Abdominal Cramping, Starting on Wed01/02/21 at 1945 2003 (Given - Provider: Mike Zafar RN) 1145 ([facility] Hold - Provider: [facility] [employer] - Reason: Unreviewed Transfer Orders)1449 ([facility] Unhold - Provider: Graciela Tovar RN)1506 (Given - Provider: Graciela Tovar RN) iopamidol (ISOVUE-370) 76 % injection 75 mL (COMPLETED) 75 mL, Intravenous, IMG ONCE PRN, Other, Starting on Wed01/01/21 at 1311, For 1 dose 1312 (Given - Provider: Mehdi Reza) ondansetron (ZOFRAN) injection 4 mg 4 mg, Intravenous, EVERY 6 HOURS PRN, Nausea, Vomiting, Starting on Wed01/02/21 at 1132 2003 (Given - Provider: Mike Zafar RN) 1145 ([facility] Hold - Provider: [facility] [employer] - Reason: Unreviewed Transfer Orders)1449 (SEP Unhold - Provider: Graciela Tovar RN) sodium chloride flush 0.9 % injection 10 mL 10 mL, Intravenous, PRN, Line Care, After every IV line use, Starting on Vivian 01/02/21 at 1132 1145 (SEP Hold - Provider: [facility] [employer] - Reason: Unreviewed Transfer Orders)1449 ([facility] Unhold - Provider: Graciela Tovar RN) Linked [...] 1 dose, Do not crush or break. 0701 (Given - Provid er: Marian Aceves RN) orphenadrine (NORFLEX) injection 60 mg (COMPLETED) 60 mg, Intramuscular, ONCE, On Wed01/29/21 at 0645, For 1 dose 0702 (Given - Provid er: Marian Aceves RN) Scheduled Medication Order 05/20/2021 05/21/2021 05/22/2021 ketorolac (TORADOL) injection 60 mg (COMPLETED) 60 mg, IntraMUSCular, ONCE, On Vivian 05/22/21 at 1900, For 1 dose, Do not administer for more than 5 days. 190 (Given - Provid er: Rocio Staley RN - Comment: given by cranberry [employer] supervisor student wei) Scheduled Medication Order 06/04/2021 06/05/2021 [...] = 1.5cc/kg/hr If no LVEDP obtained, ask donor technician for fluid rate and volume to be given in recovery. -Fluids will be infused over a minimum of 2 hours. Rate shall not exceed 500 cc/hr. Ask donor technician for fluid volume total to be infused. -If GFR is less than 30, fluids will be infused over a minimum of 3 hours. -In case of reduced EF, CHF, etc., consult donor technician for rate and volume to be administered., Recovery(Cath) 1510 (Rate/Dose Veri fy - Provider: Celina Moran RN)1725 (Stopped - Provider: Teri Narvaez RN) [...] 30 mL of maalox and then administer. 151 (Given - Provid er: Crystal Connolly RN) amLODIPine (NORVASC) tablet 2.5 mg 2.5 mg, Oral, DAILY, First dose on Wed10/07/21 at 0900 0900 (Held - Provide r: Crystal Connolly RN - Reason: Pt NPO)1208 (Given - Provider: Crystal Connolly RN) aspirin chewable tablet 162 mg (COMPLETED) 162 mg, Oral, ONCE, On Wed10/06/21 at 2000, For 1 dose 195 (Given - Provider: Griselda Weiner, PAOLA) atorvastatin (LIPITOR) tablet 80 mg 80 mg, [...] mL/hr, Administer over 60 Minutes, ONCE, On 10/19/21 at 2100, For 1 dose, Infusion Dose [...] PRN, 1 dose, Starting on 10/19/21 at 2042, Until 10/19/21 at 2358, Low blood sugar, For BS less than 60 mg/dL iopamidol (ISOVUE-370) 76 % injection 75 mL (COMPLETED) 75 mL, IntraVENous, IMG ONCE PRN, 1 dose, Starting on 10/19/21 at 2026, Until Wed10/19/21 at 2026, Other 2026 (Given - Provid [...] Perdue RN) 0841 (Given - Provider: Carole Perdue, PAOLA) clindamycin (CLEOCIN) 600 mg in dextrose 5 % 50 mL IVPB (COMPLETED) 600 mg, IntraVENous, ONCE, 1 dose, On Wed10/22/21 at 1730, Antimicrobial Indications: Surgical Prophylaxis 173 (New Bag - Provider: Griselda Pope RN)1804 (Stopped - Provider: Griselda Pope RN) clopidogrel (PLAVIX) tablet 75 mg 75 mg, Oral, DAILY, First dose on Wed10/21/21 at 191, Until Discontinued 2149 (Given - Provider: Sarah Michael RN - Comment: late from pharmacy) 0859 (Given - Provider: Carole Perdue RN) 0841 (Given - Provider: Carole Perdue RN) enoxaparin (LOVENOX) injection 40 mg 40 mg, SubCUTAneous, DAILY, First dose on Wed10/21/21 at 191, Until Discontinued 2057 (Given - Provider: Sarah [...] in half and each half swallowed separately. 0812 (Given - Provider: Nallely Avendaño RN) [...] Carole Perdue RN)2046 (Given - Provider: Carmencita Desir RN) 0841 (Given - Provider: Carole Perdue RN)2099 (Due) traZODone (DESYREL) tablet 50 mg 50 mg, Oral, NIGHTLY, First dose on Wed10/20/21 at 2100, Until Discontinued 2058 (Given - Provider: Sarah Michael RN) 2046 (Given - Provider: Carmencita Desir RN) [...] at 1710 1710 (Given - Provider: Griselda Pope RN) iodixanol (VISIPAQUE) injection 100 mL (COMPLETED) 100 [...] used. 1030 (See Alternative - Provider: Carole Perdue, PAOLA) ondansetron (ZOFRAN) injection 4 mg(Linked Group 2) 4 mg, IntraVENous, EVERY 6 HOURS PRN, Starting on Wed10/22/21 at 1727, Until Discontinued, Nausea, Vomiting, Administer if oral route cannot be used., Recovery(IR) 2149 (Given - Provider: Carmencita Desir RN) ondansetron (ZOFRAN-ODT) disintegrating tablet 4 mg(Linked Group 1) 4 mg, Oral, EVERY 8 HOURS PRN, Starting on Wed10/20/21 at 0144, Until Discontinued, Nausea, Vomiting 1030 (Given - Provider: Carole Perdue RN) ondansetron (ZOFRAN-ODT) disintegrating tablet 4 mg(Linked Group 2) 4 mg, Oral, EVERY 8 HOURS PRN, Starting on Wed10/22/21 at 1727, Until Discontinued, Nausea, Vomiting, Recovery(IR) 2149 (See Alternative - Provider: Carmencita Desir RN) [...] = 1.5cc/kg/hr If no LVEDP obtained, ask donor technician for fluid rate and volume to be given in recovery. -Fluids will be infused over a minimum of 2 hours. Rate shall not exceed 500 cc/hr. Ask donor technician for fluid volume total to be infused. -If GFR is less than 30, fluids will be infused over a minimum of 3 hours. -In case of reduced EF, CHF, etc., consult donor technician for rate and volume to be administered., Recovery(Cath) 1630 (Due) PRN Medication Order 08/18/2022 08/19/2022 08/20/2022 0.9 % sodium chloride infusion IntraVENous, at 5-250 mL/hr, PRN, if patient receiving piggyback infusions and maintenance fluids are not ordered OR KVO fluids to protect IV site / prevent frequent line interruptions/ long duration, Starting on Vivian 08/20/22 at 1538, For piggyback infusion, administer [...] frequent line interruptions/ long duration, Starting on Vivian 08/20/22 at 1604, For piggyback infusion, administer [...] specifically ordered. 1433 (Given - Provid er: Grsielda Weiner RN) ondansetron (ZOFRAN) injection 4 mg [...] mg from all sources in 24 hours. 1718 (Given - Provid er: Griselda Barnhart [...] not administer for more than 5 days. 172 (Given - Provid er: Murali Hernández RN) morphine (PF) injection 2 mg (COMPLETED) 2 mg, IntraVENous, ONCE, 1 dose, On Wed08/12/23 at 1730, If oral and IV narcotics [...] 1616 (New Bag - Prov ider: Murali Hernández, PAOLA)1751 (Stopped - Provider: Murali Hernández RN) PRN Medication Order 08/10/2023 08/11/2023 08/12/2023 hyoscyamine (LEVSIN/SL) sublingual tablet 125 mcg 125 mcg, SubLINGual, EVERY 4 HOURS PRN, Starting on Vivian 08/12/23 at 1713, Until Discontinued, Cramping 172 (Given - Provid er: Murali Hernández RN) [...] on the SEP. 1856 ([facility] - [facility]: Joyce Pacheco RN) morphine (PF) injection 2 mg (COMPLETED) 2 mg, IntraVENous, ONCE, 1 dose, On Vivian 12/23/23 at 1600, If oral and IV narcotics ordered, use oral first and only use IV if oral is ineffective or cannot take oral. Do Not give oral and IV within 1 hour of each other unless specifically ordered. 1645 (Given - Provid er: Jill Carlisle RN) potassium chloride (KLOR-CON M) extended release tablet 40 mEq (COMPLETED) 40 mEq, Oral, ONCE, 1 dose, On Vivian 12/23/23 at 1600, Do not crush or break. Do not crush, chew, or suck on tablet. Tablet may also be broken in half and each half swallowed separately. 164 (Given - Provid er: Jill Carlisle RN) [...] An Samuels RN)1248 (Given - Provider: An Samuels, PAOLA) Care Teams (unrecognized sec tion and content) [employer] Supervisor Relationship Specialty Start Date End Date Ena Fung, CLINICAL EDUCATION CONSULTANT - ASPHALT HEATER OPERATOR [address] [place] [address] PCP - General Family Medicine 09/30/17 [employer] Supervisor Relationship Specialty Start Date End Date Ena Fung CLINICAL EDUCATION CONSULTANT - ASPHALT HEATER OPERATOR [address] [place] [address] PCP - General Family Medicine 09/30/17 [employer] Supervisor Relationship Specialty Start Date End Date Ena Fung, CLINICAL EDUCATION CONSULTANT - ASPHALT HEATER OPERATOR [address] [place] [address] PCP - General Family Medicine 09/30/17 [employer] Supervisor Relationship Specialty Start Date End Date Ena Fung CLINICAL EDUCATION CONSULTANT - ASPHALT HEATER OPERATOR [address] [place] [address] PCP - General Family Medicine 09/30/17 [employer] Supervisor Relationship Specialty Start Date End Date Ena Fung, CLINICAL EDUCATION CONSULTANT - ASPHALT HEATER OPERATOR [address] [facility] [place] [address] PCP - General Family Medicine 09/30/17 [employer] Supervisor Relationship Specialty Start Date End Date Ena Fung, CLINICAL EDUCATION CONSULTANT - ASPHALT HEATER OPERATOR [address] [facility] [place] [address] PCP - General Family Medicine 09/30/17 [employer] Supervisor Relationship Specialty Start Date End Date Ena Fung, CLINICAL EDUCATION CONSULTANT - ASPHALT HEATER OPERATOR [address] [facility] [place] [address] PCP - General Family Medicine 09/30/17 [employer] Supervisor Relationship Specialty Start Date End Date Ena Fung, CLINICAL EDUCATION CONSULTANT - ASPHALT HEATER OPERATOR [address] [facility] [place] [address] PCP - General Family Medicine 09/30/17 [employer] Supervisor Relationship Specialty Start Date End Date Ena Fung, CLINICAL EDUCATION CONSULTANT - ASPHALT HEATER OPERATOR [address] [facility] [place] [address] PCP - General Family Medicine 09/30/17 [employer] Supervisor Relationship Specialty Start Date End Date Ena Fung, CLINICAL EDUCATION CONSULTANT - ASPHALT HEATER OPERATOR [address] [facility] [place] [address] PCP - General Family Medicine 09/30/17 [employer] Supervisor Relationship Specialty Start Date End Date Ena Fung, CLINICAL EDUCATION CONSULTANT - ASPHALT HEATER OPERATOR [address] [facility] [place] [address] PCP - General Family Medicine 09/30/17 [employer] Supervisor Relationship Specialty Start Date End Date Ena Fung, CLINICAL EDUCATION CONSULTANT - ASPHALT HEATER OPERATOR [address] [facility] [place] [address] PCP - General Family Medicine 09/30/17 [employer] Mill Supervisor Relationship Specialty Start Date End Date Ena Fung, CLINICAL EDUCATION CONSULTANT - ASPHALT HEATER OPERATOR [address] [facility] [place] [address] PCP - General Family Medicine 09/30/17 [employer] Mill Supervisor Relationship Specialty Start Date End Date Ena Fung Elizabeth, CLINICAL EDUCATION CONSULTANT - ASPHALT HEATER OPERATOR [address] [facility] [place] [address] PCP - General Family Medicine 09/30/17 [employer] Supervisor Relationship Specialty Start Date End Date Ena Fung, CLINICAL EDUCATION CONSULTANT - ASPHALT HEATER OPERATOR [address] [facility] [place] [address] PCP - General Family Medicine 09/30/17 [employer] Mill Supervisor Relationship Specialty Start Date End Date Ena Fung, CLINICAL EDUCATION CONSULTANT - ASPHALT HEATER OPERATOR [address] [facility] [place] [address] PCP - General Family Medicine 09/30/17 [employer] Mill Supervisor Relationship Specialty Start Date End Date Ena Fung, CLINICAL EDUCATION CONSULTANT - ASPHALT HEATER OPERATOR [address] [facility] [place] [address] PCP - General Family Medicine 09/30/17 [employer] Mill Supervisor Relationship Specialty Start Date End Date Ena Fung, CLINICAL EDUCATION CONSULTANT - ASPHALT HEATER OPERATOR [address] [facility] [place] [address] PCP - General Family Medicine 09/30/17 [employer] Supervisor Relationship Specialty Start Date End Date Ena Fung, CLINICAL EDUCATION CONSULTANT - ASPHALT HEATER OPERATOR [address] [facility] [place] [address] PCP - General Family Medicine 09/30/17 Fr[employer] Mill Supervisor Relationship Specialty Start Date End Date Ena Fung, CLINICAL EDUCATION CONSULTANT - ASPHALT HEATER OPERATOR [address] [facility] [place] [address] PCP - General Family Medicine 09/30/17 [employer] Mill Supervisor Relationship Specialty Start Date End Date Ena Fung, CLINICAL EDUCATION CONSULTANT - ASPHALT HEATER OPERATOR [address] [facility] [place] [address] PCP - General Family Medicine 09/30/17 Fr[employer] Mill Supervisor Relationship Specialty Start Date End Date Ena Fung, CLINICAL EDUCATION CONSULTANT - ASPHALT HEATER OPERATOR [address] [place] [address] PCP - General Family Medicine 09/30/17 Framing Mill Supervisor Relationship Specialty Start Date End Date Ena Fnug, CLINICAL EDUCATION CONSULTANT - ASPHALT HEATER OPERATOR [address] [place] [address] PCP - General Family Medicine 09/30/17 Framing Mill Supervisor Relationship Specialty Start Date End Date Kenton Ena M, CLINICAL EDUCATION CONSULTANT - ASPHALT HEATER OPERATOR [address] [place] [address] PCP - General Family Medicine 09/30/17 Framing Mill Supervisor Relationship Specialty Start Date End Date Ena Fung CLINICAL EDUCATION CONSULTANT - ASPHALT HEATER OPERATOR [address] [facility] [place] [address] PCP - General Family Medicine 09/30/17 Framing Mill Supervisor Relationship Specialty Start Date End Date Ena Fung, CLINICAL EDUCATION CONSULTANT - ASPHALT HEATER OPERATOR [address] [place] [address] PCP - General Family Medicine 09/30/17 Framing Mill Supervisor Relationship Specialty Start Date End Date Kenton Ena M, CLINICAL EDUCATION CONSULTANT - ASPHALT HEATER OPERATOR [address] [facility] [place] [address] PCP - General Family Medicine 09/30/17 Framing Mill Supervisor Relationship Specialty Start Date End Date Kenton Ena M, CLINICAL EDUCATION CONSULTANT - ASPHALT HEATER OPERATOR [address] [place] [address] PCP - General Family Medicine 09/30/17 INFORMATION SOURCE (unrecogn ized section and content) DATE CREATED AUTHOR 08/27/2022 [facility] DATE CREATED AUTHOR AUTHOR'S ORGANIZ ATION 09/07/2023 [facility] DATE CREATED AUTHOR AUTHOR'S ORGANIZ ATION 03/21/2024 [facility] DATE CREATED AUTHOR AUTHOR'S ORGANIZ ATION 06/13/2024 [facility] FOR RECORDS PERTAINING TO PATIENTS WHO [...] BE BASED ON THE PRIMARY CLINICAL RECORDS. [facility] [employer] provides no warranty or guarantee of the accuracy or completeness of information in this document.
--- NOTE | 2024-09-14 04:12 | ED.GENADUL1 ---
HPI HPI - General Adult General Chief complaint: Fall Stated complaint: FALL Time Seen by Provider: 09/14/24 03:59 Source: patient Mode of arrival: walk-in Limitations: no limitations History of Present Illness HPI narrative: 48-year-old female to the emergency department with chief complaint of accidental fall. Patient reports that she tripped over her cat. She landed on her right side. She reports she has some pain in her foot and lower leg on the right side. She also has some pain in her neck. She did hit her head. She is unsure on what. She takes Brilinta.Tetanus up-to-date. Related Data Home Medications ?Medication ?Instructions ?Recorded ?Confirmed amlodipine 10 mg tablet 10 mg PO QDAY 05/09/24 08/20/24 atorvastatin 80 mg tablet 80 mg PO .qhs 05/09/24 08/20/24 cholecalciferol (vitamin D3) 10 10 mcg PO QDAY 05/09/24 08/20/24 mcg (400 unit) capsule (Vitamin D3) ezetimibe 10 mg tablet 10 mg PO QDAY 05/09/24 05/09/24 gabapentin 300 mg capsule 300 mg PO Q12H 05/09/24 08/20/24 hydroxyzine pamoate 25 mg capsule 25 mg PO Q6H PRN anxiety 05/09/24 08/20/24 pantoprazole 40 mg tablet,delayed 40 mg PO Q12H 05/09/24 08/20/24 release paroxetine HCl 40 mg tablet 40 mg PO QDAY 05/09/24 08/20/24 ranolazine 1,000 mg 1,000 mg PO Q12H 05/09/24 05/09/24 tablet,extended release,12 hr ticagrelor 60 mg tablet (Brilinta) 60 mg PO Q12H 05/09/24 08/20/24 trazodone 100 mg tablet 100 mg PO .qhs 05/09/24 08/20/24 cyclobenzaprine 10 mg tablet 5 mg PO Q8H PRN spasms 08/20/24 08/21/24 estradiol 1 mg tablet 1.5 mg PO DAILY 08/20/24 Previous Rx's ?Medication ?Instructions ?Recorded potassium chloride 10 mEq 10 meq PO DAILY 14 days #14 tabs 08/21/24 tablet,extended release (Klor-Con) Allergies Allergy/AdvReac Type Severity Reaction Status Date / Time cephalexin (From Keflex) Allergy Mild Rash Verified 09/14/24 03:57 clopidogrel (From Plavix) AdvReac Severe crystalized Verified 09/14/24 03:57 in brain Opioid HPI Opioid Management Most Recent Opioid Data: Last Pain Scale 1 08/20/24 22:00 08/20/24 Last ORT Total Score 2 08/20/24 19:54 08/20/24 Last ORT Risk Category Low Risk 08/20/24 19:54 08/20/24 Review of Systems ROS Status of ROS 10 or more systems reviewed and unremarkable except as noted in history and below [facility] History (Updated 09/14/24 @ 04:16 by Leonides Akhtar MD) Primary hypertension ?I10 - Essential (primary) hypertension (ICD-10) Insomnia ?G47.00 - Insomnia, unspecified (ICD-10) Anxiety ?F41.9 - Anxiety disorder, unspecified (ICD-10) Injury, crush, finger ?S67.10XA - Crushing injury of unspecified finger(s), initial encounter (ICD-10) Finger injury ?S69.90XA - Unspecified injury of unspecified wrist, hand and finger(s), initial encounter (ICD-10) Encounter for colonoscopy following colon polyp removal ?Z12.11 - Encounter for screening for malignant neoplasm of colon (ICD-10) ?Z86.0100 - Personal history of colon polyps, unspecified (ICD-10) Implantable loop recorder present ?Z95.818 - Presence of other cardiac implants and grafts (ICD-10) Former smoker, stopped smoking in distant past ?Z87.891 - Personal history of nicotine dependence (ICD-10) CAD (coronary artery disease) ?I25.10 - Atherosclerotic heart disease of [place] coronary artery without angina pectoris (ICD-10) Heart disease ?I51.9 - Heart disease, unspecified (ICD-10) Surgical History H/O colonoscopy ?Z98.890 - Other specified postprocedural states (ICD-10) History of esophagogastroduodenoscopy (EGD) ?Z98.890 - Other specified postprocedural states (ICD-10) History of hernia repair ?Z98.890 - Other specified postprocedural states (ICD-10) ?Z87.19 - Personal history of other diseases of the digestive system (ICD-10) H/O heart artery stent ?Z95.5 - Presence of coronary angioplasty implant and graft (ICD-10) Hx of cholecystectomy ?Z90.49 - Acquired absence of other specified parts of digestive tract (ICD-10) Hx of spinal fusion ?Z98.1 - Arthrodesis status (ICD-10) Hx of hysterectomy ?Z90.710 - Acquired absence of both cervix and uterus (ICD-10) Social History Within the past year, how often did you have a drink containing alcohol: never Score interpretation: A score less than 3 is consistent with normal alcohol consumption. Smoking status: Former smoker Second hand tobacco smoke exposure: No Non-prescribed substance use: denies use Known occupational exposures/hazards: No Highest level of school completed/degree received: GED or equivalent Do you want help with school or training: No Are you now , , , , never or living with a partner: In a typical week, how many times do you talk on the telephone with family, friends, or neighbors: 3 or more times per week Little interest or pleasure in doing things: not at all Feeling down, depressed, or hopeless: not at all Feel stressed/tense/nervous/anxious/difficulty sleeping: to some extent Life stressors: recent of family or friend Life stressor details: of sister (was like her mom) in January 2024 Due to disability, difficulty making decisions: No Do you think of yourself as: straight/heterosexual Gender Identity: female Exam Narrative Exam Narrative: Primary Survey Airway Intact Lung sounds clear and equal bilaterally Pulses full and equal to femoral, radial, and dorsalis pedis bilaterally Heart regular rate and rhythm Skin warm, dry, pink GCS 15 Movement and sensation intact to all extremities Patient Fully Exposed. Superficial abrasion to the left face. Pain with range of motion of the neck. Tenderness to the mid anterior velez on the right. Tenderness to the anterior mid foot on the right. Secondary Survey General: GCS 15; Alert HEENT: Abrasion to left side of face; Facial bones stable; Eyes normal inspection, Pupils round, 4-2mm blt; No evidence of oropharyngeal trauma; No blood in the nares or septal hematoma; Tympanic Membranes intact, no hemotympanum or drainage Neck: Normal inspection; no midline cervical tenderness; No tracheal deviation; No JVD Resp: Normal breath sounds, no wheeze or crackles; No chest wall tenderness, crepitus, or subcutaneous emphysema; No visible evidence of chest wall trauma; Chest rise symmetric; No respiratory distress Heart: Heart rate and rhythm regular; Carotid, radial, femoral, dorsalis pedis pulses +2 and equal bilaterally; No Murmurs Abdomen: Soft; Non-tender No ecchymosis or visible wounds to abdominal wall; No distention, guarding, rigidity, or rebound; Pelvis stable, no pain on compression MSK: All major joints with normal ROM. No deformities. No bony tenderness. No tenderness or step-offs to palpation of thoracic or lumbar spine; No ecchymosis or wounds to upper or lower back Neuro: Alert and oriented; Sensation intact and symmetric bilaterally; muscle strengths symmetric bilaterally in the upper and lower extremities. Skin: Color normal; No rash; Warm; Dry Constitutional Vital Signs, click to edit/add: Last Vital Signs Temp 98.8 F 09/14/24 03:57 Pulse 64 09/14/24 04:44 Resp 18 09/14/24 04:44 BP 164/78 H 09/14/24 04:44 Pulse Ox 97 09/14/24 04:44 O2 Del Method Room Air 09/14/24 03:57 Course Vital Signs Vital signs: Vital Signs Temperature 98.8 F 09/14/24 03:57 Pulse Rate 71 09/14/24 03:57 Respiratory Rate 19 09/14/24 03:57 Blood Pressure 178/95 H 09/14/24 03:57 Pulse Oximetry 98 09/14/24 03:57 Oxygen Delivery Method Room Air 09/14/24 03:57 Temperature 98.8 F 09/14/24 03:57 Pulse Rate 64 09/14/24 04:44 Respiratory Rate 18 09/14/24 04:44 Blood Pressure 164/78 H 09/14/24 04:44 Pulse Oximetry 97 09/14/24 04:44 Oxygen Delivery Method Room Air 09/14/24 03:57 Medical Decision Making MDM Narrative Medical decision making narrative: 48-year-old female to the emergency department with chief complaint of accidental fall. Vital stable, the patient is afebrile. She did hit her head. She is on Brilinta. She has neck pain with range of motion. CT head and cervical spine are ordered and she cannot be ruled out by clinical decision rules alone. X-ray imaging of her tib-fib and foot are ordered. Patient agrees with this plan. She declines any pain medication. CT Head: negative CT Cervical Spine: negative Care signed out to Dr. Mcqueen with x-rays pending. Medical Records Medical records reviewed: Yes I reviewed the patient's medical records Discharge Plan Discharge Chief Complaint: Fall Clinical Impression: Abrasion, Accidental fall, Closed head injury, Contusion Patient Disposition: Home, Self-Care Condition: Good Mode of Transportation: Private Vehicle Prescriptions / Home Meds: No Action amlodipine 10 mg tablet 10 mg PO QDAY atorvastatin 80 mg tablet 80 mg PO .qhs cholecalciferol (vitamin D3) [Vitamin D3] 10 mcg (400 unit) capsule 10 mcg PO QDAY ezetimibe 10 mg tablet 10 mg PO QDAY gabapentin 300 mg capsule 300 mg PO Q12H hydroxyzine pamoate 25 mg capsule 25 mg PO Q6H PRN (Reason: anxiety) pantoprazole 40 mg tablet,delayed release (DR/EC) 40 mg PO Q12H paroxetine HCl 40 mg tablet 40 mg PO QDAY ranolazine 1,000 mg tablet extended release 12 hr 1,000 mg PO Q12H Brilinta 60 mg tablet 60 mg PO Q12H trazodone 100 mg tablet 100 mg PO .qhs cyclobenzaprine 10 mg tablet 5 mg PO Q8H PRN (Reason: spasms) estradiol 1 mg tablet 1.5 mg PO DAILY potassium chloride [Klor-Con 10] 10 mEq tablet extended release 10 meq PO DAILY 14 Days Qty: 14 0RF Print Language: Nigerian Instructions: Head Injury (ED), Bone Bruise (ED) Additional Instructions: Call the office of your primary care doctor to arrange for follow-up within the above-stated timeframe. Your ED visit was focused on your acute issue and does not replace primary care. You should review your labs, imaging, and diagnoses from this ED visit with your primary care physician. There may be non-emergent/ incidental findings that need further evaluation. You should review your vital signs including blood pressure with your PCP. If you were prescribed medications you should discuss possible side-effects and drug interactions with your pharmacist. Call 911 or go to the nearest Emergency Department if you develop any new or worsening symptoms. Seek immediate medical attention if you develop: new or worsening headache, nausea, vomiting, confusion, weakness, loss of motion in your arms or legs, loss of control of your urine or stool, difficulty waking from sleep, or any new or worsening symptoms. Referrals: Lovely Wray NP [Primary Care Provider] - 1 week
== END 2024-09-14 07:58 | disposition home or self-care (01) ==
PROVIDERS: Emergency Provider Student in an Organized Health Care Education/Training Program; PCP Nurse Practitioner Family
DX: S09.8XXA Other specified injuries of head, initial encounter (principal); T14.8XXA Other injury of unspecified body region, initial encounter; Z79.899 Other long term (current) drug therapy; Z95.818 Presence of other cardiac implants and grafts; Z87.891 Personal history of nicotine dependence; Z95.5 Presence of coronary angioplasty implant and graft; Z98.1 Arthrodesis status; Z90.710 Acquired absence of both cervix and uterus; Z63.4 Disappearance and death of family member; S00.81XA Abrasion of other part of head, initial encounter; W01.0XXA Fall on same level from slipping, tripping and stumbling without subsequent striking against object, initial encounter
CPT/HCPCS: 70450; 72125; 73590; 73630; 99284

== ENCOUNTER 2025-01-06 14:20 | Emergency (ER) | payer OTHER, SELFPAY ==
[2025-01-06] VITALS (25 sets, daily range): BP systolic 152–168; BP diastolic 86–91; PULSE 67–95; TEMP 36.6; O2SAT 96–100; BMI 32.6
--- OUTSIDE RECORDS SUMMARY | 2025-01-06 14:32 | XMS_ITS | CCD ---
Author Organization [facility] [employer] Care Team Providers Care Instructor Modeling Name Role Phone Ena Fung Unavailable Unavailable Kenton, Ena Unavailable Unavailable Kenton Ena Unavailable Unavailable Ahmad Unavailable Unavailable Ena Fung Primary Care Provider Ena Fung Primary Care Provider [phone] Ena Fung Unavailable Ena Fung Primary Care Provider [phone] Ena Fung Primary Care Provider [phone] Kenton CHOU - SHAMIR, Ena M Primary Care Provider Kenton CHOU - SHAMIR, Ena M Primary Care Provider Ena Fung CNP Primary Care Provider Ena Fung CNP Primary Care Provider [phone] Kenton CHOU - SHAMIR, Ena M Primary [...] Ena Primary Care Provider Kenton CHOU - SUPERVISOR DRILLING AND SHOOTING, Ena M Primary Care Provider Kenton CHOU - SHAMIR, Ena M Primary Care Provider Kenton 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-SUPERVISOR DRILLING AND SHOOTING, Ena Hillary Primary Care Eve vailable Link 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-SUPERVISOR DRILLING AND SHOOTING, Mell Daniels Attending Unava bernie Lucero MD, Asim De Oliveira Attending Unavailable Kenton 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-SUPERVISOR DRILLING AND SHOOTING, Ena Hillary Primary Care Eve vailable KENTON, [...] rash, Skin Rashes / Eruption of skin [facility] Platelet Inhibitors (P2Y12, not including aspirin) (2 sources) clopidogrel; Translations: [Plavix] Drug Allergy 2 [facility] Serotonin Reuptake Inhibitors (SSRIs) (1 source) Citalopram; Translations: [CeleXA 10 MG Oral Tablet] Drug Allergy 4 Suicidal thoughts [facility] (20 sources) cephalexin; Translations: [Keflex] Drug Allergy 4 rash, Skin Rashes / Eruption of skin [facility] (20 sources) -No Environmental Allergies Allergy to substance (disorder) [facility] (6 sources) -No Known Food Allergies Allergy to substance (disorder) [facility] Work Phone: (20 sources) Cephalosporins (Antibiotic); Translations: [CEPHALOSPORINS] Propensity to adverse reactions to drug 4 Hives [place], [place] (20 sources) Cephalexin Drug Allergy 0 [place] (20 sources) clopidogrel; Translations: [Plavix] Drug Allergy 2 [facility] (20 sources) clopidogrel; Translations: [CLOPIDOGREL] Drug Allergy 2 [facility] (2 sources) Citalopram; Translations: [CeleXA 10 MG Oral Tablet] Drug Allergy 4 Suicidal thoughts [facility] Medications Current Medications Medication Drug Class(es) Dates Sig (Normalized) Sig (Original) *CPAP AND SUPPLIES Miscellaneous (9 sources) Start: 02-01-2023 *CPAP AND SUPPLIES Miscellaneous 02/01/2023 Provider: *Multicut Line Operator Miscellaneous (not specified) (18 sources) Start: 11-26-2021 *Multicut Line Operator Miscellaneous (not specified) 11/26/2021 Provider: Ena Fung [...] ORCO) 5-325 MG per tablet 1 tablet [id number] actuat albuterol 0.09 mg/actuat metered dose [...] MG tablet Indications: Coronary artery disease involving [place] coronary artery of [place] heart without angina pectoris , S/P PTCA (percutaneous transluminal coronary angioplasty) , Essential hypertension , Mixed hyperlipidemia Take 1 tablet by mouth daily 90 tablet 3 02/23/2019 06/08/2019 Discontinued (Therapy completed) Start: 08-13-2018 End: 06-17-2020 AMLODIPINE 2.5 mg [facility] 08/13 - 06/17/2020 Provider: Start: 08-13-2018 End: 08-13-2018 AMLODIPINE 2.5 mg [facility] 08/13 - 08/13/2018 Provider: take 1 tablet [...] Inh alation Aerosol 02/01/2023 - 01/27/2024 Provider: nEa Fung CNP carvedilol 3.125 mg oral tablet [...] 30 tablet 12 02/22/2020 Active estrogens, esterified (skilled nursing) 1.25 mg / methylTESTOSTERone 2.5 mg oral [...] 300 MG Oral Capsule, conventional 01/27/2024 Provider: Ean Fung CNP Start: 11-26-2021 End: 12-21-2022 Gabapentin [...] tablets by mouth twice daily, then take [id number] tablet by mouth ticagrelor (BRILINTA) 90 MG TABS tablet Take 90 mg by mouth 2 times daily Samples give 2 boxes Lot [id number] Exp: 02/06 0 10/10/2019 Discontinued (Stop Taking [...] greater than 100.5 F (38 C), Starting [facility] 04/20/19 at 0445 Maximum dose of acetaminophen [...] by mouth every six hours as needed asvaisrdfl-oljwzntscybuq-fzto 50-325-40 mg oral tablet 06/23/2018 take 1 [...] 11/19/2022 - 11/19/2022 Provider: Ena Fung CNP EVZCITSTXH-YNSWOGCDLSEUQ-REN F 50-325-40 mg MISC (8 sources) Start: 06-23-2018 End: 06-23-2018 ZXCRVFLIHP-FHHNTJYTUHWYL-YBW F 50-325-40 mg MISC 06/23/2018 - 06/23/2018 Provider: YEZVCMILJP-AZTVPLFDCHDHO-CKE F 50-325-40 mg MISC (20 sources) Start: 06-23-2018 End: 06-17-2020 KHBKHIQYAC-DAQSSWOFNODDO-AXD F 50-325-40 mg MISC 06/23/2018 - 06/17/2020 Provider: Start: 06-23-2018 End: 06-23-2018 PBTEMZUGJW-HEVOMJSWAPLNC-TKB F 50-325-40 mg MISC 06/23/2018 - 06/23/2018 [...] Start: 04-26-2018 take 1 capsule by mo [facility] three times daily as needed for [...] Essential hypertension , Coronary artery disease involving [place] coronary artery of [place] heart without angina pectoris , S/P PTCA (percutaneous transluminal coronary angioplasty) Take 1 tablet by mouth once daily 90 tablet 3 09/14/2022 Active Start: 08-12-2021 take 1 tablet by troy th once daily metoprolol succinate (TOPROL XL) 50 MG extended release tablet Indications: Dizziness , Mixed hyperlipidemia , Essential hypertension , Coronary artery disease involving [place] coronary artery of [place] heart without angina pectoris , S/P PTCA (percutaneous transluminal coronary angioplasty) Take 1 tablet by mouth once daily 90 tablet 3 08/12/2021 Active Start: 08-05-2020 take 1 tablet by troy th once daily metoprolol succinate (TOPROL XL) 50 MG extended release tablet Indications: Dizziness , Mixed hyperlipidemia , Essential hypertension , Coronary artery disease involving [place] coronary artery of [place] heart without angina pectoris , S/P PTCA (percutaneous transluminal coronary angioplasty) Take 1 tablet by mouth once daily 90 tablet 3 08/05/2020 Active Start: 06-22-2019 take 1 tablet by troy th once daily metoprolol succinate (TOPROL XL) 50 MG extended release tablet Indications: Dizziness , Mixed hyperlipidemia , Essential hypertension , Coronary artery disease involving [place] coronary artery of [place] heart without angina pectoris , S/P PTCA [...] 11-12-2017 End: 06-17-2020 NICOTINE 21 MG/24 HR [facility] - 06/17/2020 Provider: Start: 11-12-2017 End: 11-12-2017 NICOTINE 21 MG/24 HR [facility] - 11/12/2017 Provider: nitroglycerin 0.4 mg sublingual [...] (DEFINITY) injection 1.65 mg polyethylene glycol [id number] mg powder for oral solution (4 sources) [...] 01-20-2018 End: 06-17-2020 POTASSIUM CHLORIDE 10 MEQ [place] 01/20/2018 - 06/17/2020 Provider: Start: 01-20-2018 End: 06-17-2020 KLOR-CON M20 20 MEQ MISC 11/2017 - 06/17/2020 Provider: Start: 01-20-2018 End: 01-20-2018 KLOR-CON M20 20 MEQ MISC 11/2017 - 01/20/2018 Provider: Start: 01-20-2018 End: 01-20-2018 POTASSIUM CHLORIDE 10 MEQ [place] 01/20/2018 - 01/20/2018 Provider: predniSONE 20 [...] taste. Start: 10-06-2021 take 1 tablet by [facility] twice daily 50 mg, Oral, 2 TIMES DAILY, First dose on Wed10/06/21 at 2300 It is not recommended to crush, break, or chew immediate release tablets due to bitter taste. Start: 01-02-2021 take 1 tablet by [facility] twice daily 50 mg, Oral, 2 TIMES DAILY, First dose on Vivian 01/02/21 at 1200 It is not recommended to crush, break, or chew immediate release tablets due to bitter taste. Start: 08-28-2020 take 1 tablet by [facility] twice daily 50 mg, Oral, 2 TIMES DAILY, First dose on Wed08/28/20 at 2100 It is not recommended to crush, break, or chew immediate release tablets due to bitter taste. Start: 08-05-2020 take 2 tablets by mo [facility] twice daily topiramate (TOPAMAX) 25 MG [...] Active Start: 12-28-2019 take 1 tablet by [facility] twice daily 50 mg, Oral, 2 TIMES [...] Coronary atherosclerosis of unspecified type of vessel, [place] or graft; Translations: [Acute coronary syndrome] Onset: [...] Interpretation Reference Range Facility ECG 12-LEADon 08-21-2024 [place] [address] Electrocardiograph Report Signed Patient: MIKE SHARIF MR#: [id number] : 1975 Acct:[id number] Age/Sex: 48 / F ADM Date: 08/20/24 Loc: MS 219-[address]: Ángel Jackson M.D. 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 Signed By: 08/21/24 0655 DD/ 45 TD/TT: Marriage Counselor Minister: [facility] Radiology Radiologmary ornelas MD - 08/21/2024 [place] [address] Electrocardiograph Report Signed Patient: MIKE SHARIF MR#: [id number] : 1975 Acct:[id number] Age/Sex: 48 / F ADM Date: 08/20/24 Loc: MS 219-[address]: Ángel Jackson M.D. 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 Signed By: 08/21/24 0655 DD/ 45 TD/TT: Marriage Counselor Minister[facility] 12-LEADOrdered By: Radio logist Radiology on 08-21-2024 [employer] Work Phone: ECG 12-LEADon 08-20-2024 Radiology Study observation (narrative) [facility] [employer] XR WRIST RT MIN 3 VWSon 11- [...] Rodriguez MD on 06/06/2024 3:53 PM Normal [facility] XR RIBS RT 3 VWS [...] Rodriguez MD on 06/05/2024 6:38 PM Normal [facility] XR SHOULDER RT MIN 2 [...] Janae Contreras on 06/05/2024 6:40 PM Normal [facility] Basic Metabolic Panelon 08-2 Anion gap [Moles/Vol] 12 mmol/L 9 - 17 mmol/L [facility] Calcium [Mass/Vol] 9.0 mg/dL 8.6 - 10. 4 mg/dL [facility] Chloride [Moles/Vol] 98 mmol/L 98 - 10 7 mmol/L [facility] CO2 [Moles/Vol] 26 mmol/L 20 - 31 mmol/L [facility] Creatinine [Mass/Vol] 0.7 mg/dL 0.5 - 0.9 mg/dL [facility] Est, Glom Filt Rate - [facility] Comment on above: These results are [...] 114 mg/dL High 70 - 99 mg/dL [facility] Interpretation and review of laboratory results Abnormal [facility] Potassium [Moles/Vol] 3.5 mmol/L Low 3.7 - 5.3 mmol/L [facility] Sodium [Moles/Vol] 136 mmol/L 135 - 144 mmol/L [facility] Urea nitrogen [Mass/Vol] 9 mg/dL 6 - 20 mg/dL [facility] Urea nitrogen/Creatinine [Mass ratio] 13 mg/mg - [address] [facility] Basic Metabolic Profon 03-12 Anion gap [Moles/Vol] 12 mmol/L Normal - [facility] Comment on above: Performed By: #### B MP, CBC #### [facility] [address] [place] [address] Pile Driving Superintendent: Jordon Tai MD BUN/CRE Ratio 13 Normal - [facility] Comment on above: Performed By: #### B MP, CBC #### [facility] [address] [place] [address] Pile Driving Superintendent: Jordon Tai MD Calcium [Mass/Vol] 9.0 mg/dL Normal 8.6-10.4 [facility] Comment on above: Performed By: #### B MP, CBC #### [facility] [address] [place] [address] [place] [address] Pile Driving Superintendent: Jordon Tai MD Chloride [Moles/Vol] 98 mmol/L Normal 98-107 [facility] Comment on above: Performed By: #### B MP, CBC #### [facility] [address] [place] [address] Pile Driving Superintendent: Jordon Tai MD CO2 [Moles/Vol] 26 mmol/L Normal 20-31 [facility] Comment on above: Performed By: #### B MP, CBC #### [facility] [address] [place] [address] Pile Driving Superintendent: Jordon Tai MD Creatinine [Mass/Vol] 0.7 mg/dL Normal 0.5-0.[address] [facility] Comment on above: Performed By: #### B MP, CBC #### [facility] [address] [place] [address] Pile Driving Superintendent: Jordon Tai MD GFR/1.73 sq M.predicted among non-blacks MDRD (S/P/Bld) [Vol rate/Area] mL/min/{1.73_m2} Normal >60 [facility] Comment on above: Result Comment: These [...] Performed By: #### B RUPAL, CBC #### [facility] [address] [place] [address] Pile Driving Superintendent: Jordon Tai MD Glucose [Mass/Vol] 114 mg/dL High 70-99 [facility] Comment on above: Performed By: #### B MP, CBC #### [facility] [address] [place] [address] Pile Driving Superintendent: Jordon Tai MD Potassium [Moles/Vol] 3.5 mmol/L Low 3.7-5.[address] [facility] Comment on above: Performed By: #### B MP, CBC #### [facility] [address] [place] [address] Pile Driving Superintendent: Jordon Tai MD Sodium [Moles/Vol] 136 mmol/L Normal 135-144 [facility] Comment on above: Performed By: #### B MP, CBC #### [facility] [address] [place] [address] Pile Driving Superintendent: Jordon Tai MD Urea nitrogen [Mass/Vol] 9 mg/dL Normal 6-20 [facility] Comment on above: Performed By: #### B MP, CBC #### [facility] [address] [place] [address] Pile Driving Superintendent: Jordon aTi MD CBC with Auto Differentialon 03-12-2024 Basophils (Bld) [#/Vol] 0.06 10*3/uL [facility] Basophils/100 WBC (Bld) 1 % 0 - 2 % B [facility] Eosinophils (Bld) [#/Vol] 0.08 10*3/uL [facility] Eosinophils/100 WBC (Bld) 1 % 1 - 4 % [facility] Erythrocyte distribution width (RBC) [Ratio] 12.1 % 11.8 - 14.4 % [facility] Hematocrit (Bld) [Volume fraction] 37.1 % 36.3 - 47.1 % [facility] Hemoglobin (Bld) [Mass/Vol] 13.1 g/dL 11.9 - 15.1 g/dL [facility] Immature granulocytes (Bld) [#/Vol] [facility] Immature granulocytes/100 WBC (Bld) 0 % 0 [facility] Interpretation and review of laboratory results Abnormal [facility] Lymphocytes/100 WBC (Bld) 27 % 24 - 43 % [facility] Lymphocytes/100 WBC (Bld) 2.12 % [facility] MCH (RBC) [Entitic mass] 29.6 pg 25.2 - 33.5 pg [facility] MCHC (RBC) [Mass/Vol] 35.3 g/dL High 28.4 - 34.8 g/dL [facility] MCV (RBC) [Entitic vol] 83.9 fL 82.6 - 102.9 fL [facility] Monocytes/100 WBC (Bld) 7 % 3 - 12 % [facility] Monocytes/100 WBC (Bld) 0.55 % [facility] Neutrophils/100 WBC (Bld) 64 % 36 - 65 % [facility] Nucleated RBC/100 WBC (Bld) [Ratio] 0.0 % 0.0 per 100 WBC [facility] Platelet mean volume (Bld) [Entitic vol] 9.7 fL 8.1 - 13.5 fL [facility] Platelets (Bld) [#/Vol] 295 10*3/uL [facility] RBC (Bld) [#/Vol] 4.42 10*6/uL 3.95 - 5.11 m/uL [facility] Segmented neutrophils/100 WBC (Bld) 4.97 % [facility] WBC other (Bld) [#/Vol] 7.8 [facility] CBC with Diffon 03-12-2024 Abs. Basophil 0.06 k/uL Normal 0.00-0.20 [facility] Comment on above: Performed By: #### B MP, CBC #### [facility] [address] [place] [address] [place] [address] Pile Driving Superintendent: Jordon Tai MD Abs.Imm.Granulocyte <0.03 Normal 0.00-0.30 [facility] Comment on above: Performed By: #### B MP, CBC #### [facility] [address] [place] [address] [place] [address] Pile Driving Superintendent: Jordon Tai MD Abs.Neutrophil (Seg) 4.97 k/uL Normal 1.50-8.10 [facility] Comment on above: Performed By: #### B MP, CBC #### [facility] [address] [place] [address] [place] [address] Pile Driving Superintendent: Jordon Tai MD Basophils/100 WBC (Bld) 1 % Normal 0-2 [facility] Comment on above: Performed By: #### B MP, CBC #### [address] [place], [facility] Pile Driving Superintendent: Jordon Tai MD Eosinophils (Bld) [#/Vol] 0.08 10*3/uL Normal 0.00-0.44 [facility] Comment on above: Performed By: #### B MP, CBC #### [address] [place], [facility] Pile Driving Superintendent: Jordon Tai MD Eosinophils/100 WBC (Bld) 1 % Normal 1-4 [facility] Comment on above: Performed By: #### B MP, CBC #### [address] [place] [id number] Pile Driving Superintendent: Jordon Tai MD Erythrocyte distribution width (RBC) [Ratio] 12.1 % Normal 11.8-14.4 [facility] Comment on above: Performed By: #### B MP, CBC #### [address] [place], [facility] Pile Driving Superintendent: Jordon Tai MD Hematocrit (Bld) [Volume fraction] 37.1 % Normal 36.3-47.1 [facility] Comment on above: Performed By: #### B MP, CBC #### [address] [place] [address] Pile Driving Superintendent: Jordon Tai MD Hemoglobin (Bld) [Mass/Vol] 13.1 g/dL Normal 11.9-15.1 [facility] Comment on above: Performed By: #### B MP, CBC #### [address] [place] [address] Pile Driving Superintendent: Jordon Tai MD Immature granulocytes/100 WBC (Bld) 0 % Normal 0 [facility] Comment on above: Performed By: #### B MP, CBC #### [address] [place], [place] [id number] Pile Driving Superintendent: Jordon aTi MD Lymphocytes (Bld) [#/Vol] 2.12 10*3/uL Normal 1.10-3.70 [facility] Comment on above: Performed By: #### B MP, CBC #### [facility] [address] [place], [place] [id number] Pile Driving Superintendent: Jordon Tai MD Lymphocytes/100 WBC (Bld) 27 % Normal 24-43 [facility] Comment on above: Performed By: #### B MP, CBC #### [address] [place] [facility] Pile Driving Superintendent: Jordon Tai MD MCH (RBC) [Entitic mass] 29.6 pg Normal 25.2-33.5 [facility] Comment on above: Performed By: #### B MP, CBC #### [address] [place], [facility] Pile Driving Superintendent: Jordon Tai MD MCHC (RBC) [Mass/Vol] 35.3 g/dL High 28.4-34.[address] [facility] Comment on above: Performed By: #### B MP, CBC #### [address] [place] [facility] Pile Driving Superintendent: Jordon Tai MD MCV (RBC) [Entitic vol] 83.9 fL Normal 82.6-102.9 [facility] Comment on above: Performed By: #### B MP, CBC #### [address] [place] [address] Pile Driving Superintendent: Jordon Tai MD Monocytes (Bld) [#/Vol] 0.55 10*3/uL Normal 0.10-1.20 [facility] Comment on above: Performed By: #### B MP, CBC #### [address] [place] [address] Pile Driving Superintendent: Jordon Tai MD Monocytes/100 WBC (Bld) 7 % Normal 3-12 [facility] Comment on above: Performed By: #### B MP, CBC #### [facility] [address] [place] [address] Pile Driving Superintendent: Jordon Tai MD Neutrophil (Seg) 64 % Normal 36-65 [facility] Comment on above: Performed By: #### B MP, CBC #### [facility] [address] [place] [address] Pile Driving Superintendent: Jordon Tai MD NRBC Automated 0.0 per 100 WBC Normal 0.0 [facility] Comment on above: Performed By: #### B MP, CBC #### [facility] [address] [place] [address] Pile Driving Superintendent: Jordon Tai MD Platelet mean volume (Bld) [Entitic vol] 9.7 fL Normal 8.1-13.5 [facility] Comment on above: Performed By: #### B MP, CBC #### [address] [place] [address] Pile Driving Superintendent: Jordon Tai MD Platelets (Bld) [#/Vol] 295 10*3/uL Normal 138-453 [facility] Comment on above: Performed By: #### B MP, CBC #### [facility] [address] [place] [address] Pile Driving Superintendent: Jordon Tai MD RBC (Bld) [#/Vol] 4.42 10*6/uL Normal 3.95-5.11 [facility] Comment on above: Performed By: #### B MP, CBC #### [facility] [address] [place] [address] Pile Driving Superintendent: Jordon Tai MD WBC (Bld) [#/Vol] 7.8 10*3/uL Normal 3.5-11.3 [facility] Comment on above: Performed By: #### B MP, CBC #### [facility] [address] [place] [address] Pile Driving Superintendent: Jordon Tai MD Portable XR Chest AP single viewon 03-12-2024 No radiographic evid ence of acute pulmonary disease. [facility] EXAMINATION: ONE XRAY VIEW OF THE CHEST 03/12/2024 12:26 pm COMPARISON: Chest x-ray dated 01/25/2024. HISTORY: ORDERING SYSTEM PROVIDED HISTORY: chest pain TECHNOLOGIST PROVIDED HISTORY: chest pain FINDINGS: HEART/MEDIASTINUM: The cardiomediastinal silhouette is within normal limits. PLEURA/LUNGS: There are no focal consolidations or pleural effusions. There is no appreciable pneumothorax. BONES/SOFT TISSUE: No acute abnormality. Cardiac loop recorder is noted. [facility] Alan Huitron MD - 03/12/2024 EXAMINATION: [...] No radiographic evidence of acute pulmonary disease. [facility] Radiology Study observation (narrative) [facility] Portable XR Chest AP single viewOrdered By: Alan Huitron on 03-12-2024 [facility] Work Phone: Troponinon 03-12-2024 Troponin I.cardiac High sensitivity method [Mass/Vol] 6 ng/L 0 - 14 ng/L [facility] Comment on above: High Sensitivity Tro ponin values cannot be compared with other Troponin methodologies. [facility] Troponin, High Sens 6 ng/L Normal 0-14 [facility] Comment on above: Result Comment: High Sensitivity Troponin values cannot be compared with other Troponin methodologies. Performed By: #### T ROPI #### [facility] [address] [place] [address] Pile Driving Superintendent: Jordon Tai MD Troponin I.cardiac High sensitivity method [Mass/Vol] ng/L 0 - 14 ng/L [facility] Comment on above: High Sensitivity Tro ponin values cannot be compared with other Troponin methodologies. [facility] Troponin, High Sens <6 Normal 0-14 [facility] Comment on above: Result Comment: High Sensitivity Troponin values cannot be compared with other Troponin methodologies. Performed By: #### B MP, CBC #### [facility] [address] [place] [address] Pile Driving Superintendent: Jordon Tai MD XR CHEST PORTABLEon 03-12-20 [...] Alan Huitron MD 03/12/24 Final result Normal [facility] Basic Metabolic Profon 01-24 Potassium [Moles/Vol] 3.0 mmol/L Low 3.7-5.[address] [facility] Comment on above: Performed By: #### C DP, LIP, CP, TROPI #### [facility] [address] [place] [address] Pile Driving Superintendent: Jordon Tai MD Anion gap [Moles/Vol] 14 mmol/L Normal 9-[address] [facility] Comment on above: Performed By: #### C DP, LIP, CP, TROPI #### [facility] [address] [place], [place] [id number] Pile Driving Superintendent: Jordon Tai MD BUN/CRE Ratio 11 Normal 9-20 [facility] Comment on above: Performed By: #### C DP, LIP, CP, TROPI #### [facility] [address] [place], [place] [id number] Pile Driving Superintendent: Jordon Tai MD Calcium [Mass/Vol] 8.7 mg/dL Normal 8.6-10.4 [facility] Comment on above: Performed By: #### C DP, LIP, CP, TROPI #### [facility] [address] [place], [place] [id number] Pile Driving Superintendent: Jordon Tai MD Chloride [Moles/Vol] 101 mmol/L Normal 98-107 [facility] Comment on above: Performed By: #### C DP, LIP, CP, TROPI #### [facility] [address] [place], [place] [phone] Pile Driving Superintendent: Jordon Tai MD CO2 [Moles/Vol] 23 mmol/L Normal 20-31 [facility] Comment on above: Performed By: #### C DP, LIP, CP, TROPI #### [facility] [address] [place], [place] [phone] Pile Driving Superintendent: Jordon Tai MD Creatinine [Mass/Vol] 0.7 mg/dL Normal 0.5-0.[address] [facility] Comment on above: Performed By: #### C DP, LIP, CP, TROPI #### [facility] [address] [place], [place] [phone] Pile Driving Superintendent: Jordon Tai MD GFR/1.73 sq M.predicted among non-blacks MDRD (S/P/Bld) [Vol rate/Area] mL/min/{1.73_m2} Normal >60 [facility] Comment on above: Result Comment: These [...] #### C DP, LIP, CP, TROPI #### [facility] [address] [place], [place] [phone] Pile Driving Superintendent: Jordon Tai MD Glucose [Mass/Vol] 109 mg/dL High 70-99 [facility] Comment on above: Performed By: #### C DP, LIP, CP, TROPI #### [facility] [address] [place], [place] [phone] Pile Driving Superintendent: Jordon Tai MD Sodium [Moles/Vol] 138 mmol/L Normal 135-144 [facility] Comment on above: Performed By: #### C DP, LIP, CP, TROPI #### [facility] [address] [place], [place] [id number] Pile Driving Superintendent: Jordon Tai MD Urea nitrogen [Mass/Vol] 8 mg/dL Normal 6-20 [facility] Comment on above: Performed By: #### C DP, LIP, CP, TROPI #### [facility] [address] [place] [address] [place] [place], [place] [phone] Pile Driving Superintendent: Jordon Tai MD Brain Natri. Peptideon 01-24 Pro-BNP <36 Normal <300 [facility] Comment on above: Result Comment: An age-independent cutoff point of 300 pg/ml has a 98% negative predictive value excluding acute heart failure. Performed By: #### C DP, LIP, CP, TROPI #### [facility] [address] [place] [address] Pile Driving Superintendent: Jordon Tai MD CBC with Diffon 01-25-2024 Abs. Basophil 0.04 k/uL Normal 0.00-0.20 [facility] Comment on above: Performed By: #### C DP, LIP, CP, TROPI #### [address] [place], [place] [address] Pile Driving Superintendent: Jordon Tai MD Abs.Imm.Granulocyte <0.03 Normal 0.00-0.30 [facility] Comment on above: Performed By: #### C DP, LIP, CP, TROPI #### [address] [place], [place] [address] Pile Driving Superintendent: Jordon Tai MD Abs.Neutrophil (Seg) 4.81 k/uL Normal 1.50-8.10 [facility] Comment on above: Performed By: #### C DP, LIP, CP, TROPI #### [address] [place], [place] [address] Pile Driving Superintendent: Jordon Tai MD Basophils/100 WBC (Bld) 1 % Normal 0-2 [facility] Comment on above: Performed By: #### C DP, LIP, CP, TROPI #### [address] [place], [facility] Pile Driving Superintendent: Jordon Tai MD Eosinophils (Bld) [#/Vol] 0.14 10*3/uL Normal 0.00-0.44 [facility] Comment on above: Performed By: #### C DP, LIP, CP, TROPI #### [address] [place], [place] [address] Pile Driving Superintendent: Jordon Tai MD Eosinophils/100 WBC (Bld) 2 % Normal 1-4 [facility] Comment on above: Performed By: #### C DP, LIP, CP, TROPI #### [address] [place], [place] [address] Pile Driving Superintendent: Jordon Tai MD Erythrocyte distribution width (RBC) [Ratio] 12.2 % Normal 11.8-14.4 [facility] Comment on above: Performed By: #### C DP, LIP, CP, TROPI #### [address] [place], [facility]83 Pile Driving Superintendent: Jordon Tai MD Hematocrit (Bld) [Volume fraction] 35.1 % Low 36.3-47.1 [facility] Comment on above: Performed By: #### C DP, LIP, CP, TROPI #### [address] [place], [facility]83 Pile Driving Superintendent: Jordon Tai MD Hemoglobin (Bld) [Mass/Vol] 12.7 g/dL Normal 11.9-15.1 [facility] Comment on above: Performed By: #### C DP, LIP, CP, TROPI #### [address] [place], [place] [address] Pile Driving Superintendent: Jordon Tai MD Immature granulocytes/100 WBC (Bld) 0 % Normal 0 [facility] Comment on above: Performed By: #### C DP, LIP, CP, TROPI #### [address] [place], [facility]83 Pile Driving Superintendent: Jordon Tai MD Lymphocytes (Bld) [#/Vol] 2.41 10*3/uL Normal 1.10-3.70 [facility] Comment on above: Performed By: #### C DP, LIP, CP, TROPI #### [address] [place], [facility]83 Pile Driving Superintendent: Jordon Tai MD Lymphocytes/100 WBC (Bld) 30 % Normal 24-43 [facility] Comment on above: Performed By: #### C DP, LIP, CP, TROPI #### [address] [place], [facility]83 Pile Driving Superintendent: Jordon Tai MD MCH (RBC) [Entitic mass] 29.7 pg Normal 25.2-33.5 [facility] Comment on above: Performed By: #### C DP, LIP, CP, TROPI #### [address] [place] [address] Pile Driving Superintendent: Jordon Tai MD MCHC (RBC) [Mass/Vol] 36.2 g/dL High 28.4-34.[address] [facility] Comment on above: Performed By: #### C DP, LIP, CP, TROPI #### [address] [place], [facility]83 Pile Driving Superintendent: Jordon Tai MD MCV (RBC) [Entitic vol] 82.0 fL Low 82.6-102.9 [facility] Comment on above: Performed By: #### C DP, LIP, CP, TROPI #### [address] [place] [address] Pile Driving Superintendent: Jordon Tai MD Monocytes (Bld) [#/Vol] 0.60 10*3/uL Normal 0.10-1.20 [facility] Comment on above: Performed By: #### C DP, LIP, CP, TROPI #### [address] [place], [place] [address] Pile Driving Superintendent: Jordon Tai MD Monocytes/100 WBC (Bld) 8 % Normal 3-12 [facility] Comment on above: Performed By: #### C DP, LIP, CP, TROPI #### [address] [place], [facility]83 Pile Driving Superintendent: Jordon Tai MD Neutrophil (Seg) 59 % Normal 36-65 [facility] Comment on above: Performed By: #### C DP, LIP, CP, TROPI #### [address] [place], [place] 7202083 Pile Driving Superintendent: Jordon Tai MD NRBC Automated 0.0 per 100 WBC Normal 0.0 [facility] Comment on above: Performed By: #### C DP, LIP, CP, TROPI #### [facility] [address] [place], [place] [phone] Pile Driving Superintendent: Jordon Tai MD Platelet mean volume (Bld) [Entitic vol] 10.0 fL Normal 8.1-13.5 [facility] Comment on above: Performed By: #### C DP, LIP, CP, TROPI #### [facility] [address] [place], [facility]83 Pile Driving Superintendent: Jordon Tai MD Platelets (Bld) [#/Vol] 293 10*3/uL Normal 138-453 [facility] Comment on above: Performed By: #### C DP, LIP, CP, TROPI #### [address] [place], [place] [phone] Pile Driving Superintendent: Jordon Tai MD RBC (Bld) [#/Vol] 4.28 10*6/uL Normal 3.95-5.11 [facility] Comment on above: Performed By: #### C DP, LIP, CP, TROPI #### [address] [place], [facility]83 Pile Driving Superintendent: Jordon Tai MD WBC (Bld) [#/Vol] 8.0 10*3/uL Normal 3.5-11.3 [facility] Comment on above: Performed By: #### C DP, LIP, CP, TROPI #### [address] [place], [facility]83 Pile Driving Superintendent: Jordon Tai MD D-Dimer Teston 01-25-2024 D-Dimer Test 0.40 ug/mL FEU Normal 0.00-0.59 [facility] Comment on above: Result Comment: When [...] #### C DP, LIP, CP, TROPI #### [facility] [address] [place] [address] [place] [address] Pile Driving Superintendent: Jordon Tai MD Magnesiumon 01-25-2024 Magnesium [Mass/Vol] 1.9 mg/dL Normal 1.6-2.6 [facility] Comment on above: Performed By: #### C DP, LIP, CP, TROPI #### [address] [place] [address] Pile Driving Superintendent: Jordon Tai MD Troponinon 01-25-2024 Troponin, High Sens <6 Normal 0-14 [facility] Comment on above: Result Comment: High Sensitivity Troponin values cannot be compared with other Troponin methodologies. Performed By: #### C DP, LIP, CP, TROPI #### [facility] [address] [place] [address] Pile Driving Superintendent: Jordon Tai MD XR CHEST (2 VW)on [...] Janae Espinoza MD 01/25/24 Final result Normal [facility] CBC with Auto Differentialon 12-23-2023 Basophils (Bld) [#/Vol] 0.06 10*3/uL [facility] Basophils/100 WBC (Bld) 1 % 0 - 2 % B [facility] Eosinophils (Bld) [#/Vol] 0.09 10*3/uL [facility] Eosinophils/100 WBC (Bld) 1 % 1 - 4 % [facility] Erythrocyte distribution width (RBC) [Ratio] 11.8 % 11.8 - 14.4 % [facility] Hematocrit (Bld) [Volume fraction] 40.0 % 36.3 - 47.1 % [facility] Hemoglobin (Bld) [Mass/Vol] 14.3 g/dL 11.9 - 15.1 g/dL [facility] Immature granulocytes (Bld) [#/Vol] [facility] Immature granulocytes/100 WBC (Bld) 0 % 0 [facility] Interpretation and review of laboratory results Abnormal [facility] Lymphocytes/100 WBC (Bld) 30 % 24 - 43 % [facility] Lymphocytes/100 WBC (Bld) 2.75 % [facility] MCH (RBC) [Entitic mass] 29.9 pg 25.2 - 33.5 pg [facility] MCHC (RBC) [Mass/Vol] 35.8 g/dL High 28.4 - 34.8 g/dL [facility] MCV (RBC) [Entitic vol] 83.5 fL 82.6 - 102.9 fL [facility] Monocytes/100 WBC (Bld) 6 % 3 - 12 % [facility] Monocytes/100 WBC (Bld) 0.58 % B [facility] Neutrophils/100 WBC (Bld) 62 % 36 - 65 % [facility] Nucleated RBC/100 WBC (Bld) [Ratio] 0.0 % 0.0 per 100 WBC [facility] Platelet mean volume (Bld) [Entitic vol] 9.7 fL 8.1 - 13.5 fL [facility] Platelets (Bld) [#/Vol] 311 10*3/uL [facility] RBC (Bld) [#/Vol] 4.79 10*6/uL 3.95 - 5.11 m/uL [facility] Segmented neutrophils/100 WBC (Bld) 5.81 % [facility] WBC other (Bld) [#/Vol] 9.3 [facility] CBC with Diffon 12-23-2023 Abs. Basophil 0.06 k/uL Normal 0.00-0.20 [facility] Comment on above: Performed By: #### C DP, LIP, CP, TROPI #### [address] [place] [phone] Pile Driving Superintendent: Jordon Tai MD Abs.Imm.Granulocyte <0.03 Normal 0.00-0.30 [facility] Comment on above: Performed By: #### C DP, LIP, CP, TROPI #### [address] [place] [address] Pile Driving Superintendent: Jordon Tai MD Abs.Neutrophil (Seg) 5.81 k/uL Normal 1.50-8.10 [facility] Comment on above: Performed By: #### C DP, LIP, CP, TROPI #### [address] [place] [phone] Pile Driving Superintendent: Jordon Tai MD Basophils/100 WBC (Bld) 1 % Normal 0-2 [facility] Comment on above: Performed By: #### C DP, LIP, CP, TROPI #### [address] [place] [phone] Pile Driving Superintendent: Jordon Tai MD Eosinophils (Bld) [#/Vol] 0.09 10*3/uL Normal 0.00-0.44 [facility] Comment on above: Performed By: #### C DP, LIP, CP, TROPI #### [address] [place], [place] [phone] Pile Driving Superintendent: Jordon Tai MD Eosinophils/100 WBC (Bld) 1 % Normal 1-4 [facility] Comment on above: Performed By: #### C DP, LIP, CP, TROPI #### [address] [place], [facility]83 Pile Driving Superintendent: Jordon Tai MD Erythrocyte distribution width (RBC) [Ratio] 11.8 % Normal 11.8-14.4 [facility] Comment on above: Performed By: #### C DP, LIP, CP, TROPI #### [address] [place], [facility]83 Pile Driving Superintendent: Jordon Tai MD Hematocrit (Bld) [Volume fraction] 40.0 % Normal 36.3-47.1 [facility] Comment on above: Performed By: #### C DP, LIP, CP, TROPI #### [address] [place], [place] [address] Pile Driving Superintendent: Jordon Tai MD Hemoglobin (Bld) [Mass/Vol] 14.3 g/dL Normal 11.9-15.1 [facility] Comment on above: Performed By: #### C DP, LIP, CP, TROPI #### [address] [place], [facility]83 Pile Driving Superintendent: Jordon Tai MD Immature granulocytes/100 WBC (Bld) 0 % Normal 0 [facility] Comment on above: Performed By: #### C DP, LIP, CP, TROPI #### [address] [place], [place] [phone] Pile Driving Superintendent: Jordon Tai MD Lymphocytes (Bld) [#/Vol] 2.75 10*3/uL Normal 1.10-3.70 [facility] Comment on above: Performed By: #### C DP, LIP, CP, TROPI #### [address] [place], [facility]83 Pile Driving Superintendent: Jordon Tai MD Lymphocytes/100 WBC (Bld) 30 % Normal 24-43 [facility] Comment on above: Performed By: #### C DP, LIP, CP, TROPI #### [address] [place], [place] [address] Pile Driving Superintendent: Jordon Tai MD MCH (RBC) [Entitic mass] 29.9 pg Normal 25.2-33.5 [facility] Comment on above: Performed By: #### C DP, LIP, CP, TROPI #### [address] [place], [place] [address] Pile Driving Superintendent: Jordon Tai MD MCHC (RBC) [Mass/Vol] 35.8 g/dL High 28.4-34.[address] [facility] Comment on above: Performed By: #### C DP, LIP, CP, TROPI #### [address] [place], [place] [address] Pile Driving Superintendent: Jordon Tai MD MCV (RBC) [Entitic vol] 83.5 fL Normal 82.6-102.9 [facility] Comment on above: Performed By: #### C DP, LIP, CP, TROPI #### [address] [place], [place] [address] Pile Driving Superintendent: Jordon Tai MD Monocytes (Bld) [#/Vol] 0.58 10*3/uL Normal 0.10-1.20 [facility] Comment on above: Performed By: #### C DP, LIP, CP, TROPI #### [address] [place], [place] [address] Pile Driving Superintendent: Jordon Tai MD Monocytes/100 WBC (Bld) 6 % Normal 3-12 [facility] Comment on above: Performed By: #### C DP, LIP, CP, TROPI #### [facility] [address] [place] [address] [place] [address] Pile Driving Superintendent: Jordon Tai MD Neutrophil (Seg) 62 % Normal 36-65 [facility] Comment on above: Performed By: #### C DP, LIP, CP, TROPI #### [facility] [address] [place], [place] [phone] Pile Driving Superintendent: Jordon Tai MD NRBC Automated 0.0 per 100 WBC Normal 0.0 [facility] Comment on above: Performed By: #### C DP, LIP, CP, TROPI #### [address] [place], [place] [phone] Pile Driving Superintendent: Jordon Tai MD Platelet mean volume (Bld) [Entitic vol] 9.7 fL Normal 8.1-13.5 [facility] Comment on above: Performed By: #### C DP, LIP, CP, TROPI #### [address] [place], [place] [phone] Pile Driving Superintendent: Jordon Tai MD Platelets (Bld) [#/Vol] 311 10*3/uL Normal 138-453 [facility] Comment on above: Performed By: #### C DP, LIP, CP, TROPI #### [address] [place], [place] 5371783 Pile Driving Superintendent: Jordon Tai MD RBC (Bld) [#/Vol] 4.79 10*6/uL Normal 3.95-5.11 [facility] Comment on above: Performed By: #### C DP, LIP, CP, TROPI #### [address] [place] [address] Pile Driving Superintendent: Jordon Tai MD WBC (Bld) [#/Vol] 9.3 10*3/uL Normal 3.5-11.3 [facility] Comment on above: Performed By: #### C DP, LIP, CP, TROPI #### [facility] [address] [place], [place] [phone] Pile Driving Superintendent: Jordon Tai MD Comp Metabolic Pr/rfx MGon 0 - Potassium [Moles/Vol] 3.2 mmol/L Low 3.7-5.[address] [facility] Comment on above: Performed By: #### C DP, LIP, CP, TROPI #### [facility] [address] [place], [place] [phone] Pile Driving Superintendent: Jordon Tai MD Albumin [Mass/Vol] 4.6 g/dL Normal 3.5-5.2 [facility] Comment on above: Performed By: #### C DP, LIP, CP, TROPI #### [facility] [address] [place] [address] Pile Driving Superintendent: Jordon Tai MD Albumin/Glob Ratio 1.4 Normal 1.0-2.5 [facility] Comment on above: Performed By: #### C DP, LIP, CP, TROPI #### [address] [place] [address] Pile Driving Superintendent: Jordon Tai MD Alkaline Phos 110 U/L High 35-104 [facility] Comment on above: Performed By: #### C DP, LIP, CP, TROPI #### [facility] [address] [place], [place] [phone] Pile Driving Superintendent: Jordon Tai MD ALT [Catalytic activity/Vol] 50 U/L High 5-33 [facility] Comment on above: Performed By: #### C DP, LIP, CP, TROPI #### [facility] [address] [place], [place] [address]88[address]83 Pile Driving Superintendent: Jordon Tai MD Anion gap [Moles/Vol] 15 mmol/L Normal 9-[address] [facility] Comment on above: Performed By: #### C DP, LIP, CP, TROPI #### [facility] [address] [place], [place] [phone] Pile Driving Superintendent: Jordon Tai MD AST [Catalytic activity/Vol] 35 U/L High <32 [facility] Comment on above: Performed By: #### C DP, LIP, CP, TROPI #### [facility] [address] [place], [place] [phone] Pile Driving Superintendent: Jordon Tai MD Bilirubin [Mass/Vol] 0.3 mg/dL Normal 0.3-1.2 [facility] Comment on above: Performed By: #### C DP, LIP, CP, TROPI #### [facility] [address] [place] [address] [place], [place] 6174383 Pile Driving Superintendent: Jordon Tai MD BUN/CRE Ratio 10 Normal 9-20 [facility] Comment on above: Performed By: #### C DP, LIP, CP, TROPI #### [address] [place], [place] [phone] Pile Driving Superintendent: Jordon Tai MD Calcium [Mass/Vol] 9.3 mg/dL Normal 8.6-10.4 [facility] Comment on above: Performed By: #### C DP, LIP, CP, TROPI #### [facility] [address] [place] [address] [place], [place] [phone] Pile Driving Superintendent: Jordon Tai MD Chloride [Moles/Vol] 101 mmol/L Normal 98-107 [facility] Comment on above: Performed By: #### C DP, LIP, CP, TROPI #### [facility] [address] [place] [address] [place]. [place], [place] 8274983 Pile Driving Superintendent: Jordon Tai MD CO2 [Moles/Vol] 22 mmol/L Normal 20-31 [facility] Comment on above: Performed By: #### C DP, LIP, CP, TROPI #### [facility] [address] [place] [address] Pile Driving Superintendent: Jordon Tai MD Creatinine [Mass/Vol] 0.8 mg/dL Normal 0.5-0.[address] [facility] Comment on above: Performed By: #### C DP, LIP, CP, TROPI #### [facility] [address] [place], [place] [phone] Pile Driving Superintendent: Jordon Tai MD GFR/1.73 sq M.predicted among non-blacks MDRD (S/P/Bld) [Vol rate/Area] mL/min/{1.73_m2} Normal >60 [facility] Comment on above: Result Comment: These [...] #### C DP, LIP, CP, TROPI #### [facility] [address] [place] [address] Pile Driving Superintendent: Jordon Tai MD Glucose [Mass/Vol] 124 mg/dL High 70-99 [facility] Comment on above: Performed By: #### C DP, LIP, CP, TROPI #### [facility] [address] [place] [address] Pile Driving Superintendent: Jorodn Tai MD Protein [Mass/Vol] 7.8 g/dL Normal 6.4-8.3 [facility] Comment on above: Performed By: #### C DP, LIP, CP, TROPI #### [facility] [address] [place] [address] Pile Driving Superintendent: Jordon Tai MD Sodium [Moles/Vol] 138 mmol/L Normal 135-144 [facility] Comment on above: Performed By: #### C GRAEME, CARMEN, MEETA, TROPI #### [facility] [address] [place], [place] [phone] Pile Driving Superintendent: Jordon Tai MD Urea nitrogen [Mass/Vol] 8 mg/dL Normal 6-20 [facility] Comment on above: Performed By: #### C CARMEN BEDOLLA, MEETA, TROPI #### [facility] [address] [place] [address] Pile Driving Superintendent: Jordon Tai MD Comprehensive Metabolic Pane l w/ Reflex to on 12-23-2023 Albumin [Mass/Vol] 4.6 g/dL 3.5 - 5.2 g/dL [facility] Albumin/Globulin [Mass ratio] 1.4 {ratio} 1.0 - 2.5 [facility] ALP [Catalytic activity/Vol] 110 U/L High 35 - 104 U/L [facility] ALT [Catalytic activity/Vol] 50 U/L High 5 - 33 U/L [facility] Anion gap [Moles/Vol] 15 mmol/L 9 - 17 mmol/L [facility] AST [Catalytic activity/Vol] 35 U/L High NINF - 32 U/L [facility] Bilirubin [Mass/Vol] 0.3 mg/dL 0.3 - 1 .2 mg/dL [facility] Calcium [Mass/Vol] 9.3 mg/dL 8.6 - 10. 4 mg/dL [facility] Chloride [Moles/Vol] 101 mmol/L 98 - 10 7 mmol/L [facility] CO2 [Moles/Vol] 22 mmol/L 20 - 31 mmol/L [facility] Creatinine [Mass/Vol] 0.8 mg/dL 0.5 - 0.9 mg/dL [facility] Est, Glom Filt Rate - PINF [facility] Comment on above: These results are [...] 124 mg/dL High 70 - 99 mg/dL [facility] Interpretation and review of laboratory results Abnormal [facility] Potassium [Moles/Vol] 3.2 mmol/L Low 3.7 - 5.3 mmol/L [facility] Protein [Mass/Vol] 7.8 g/dL 6.4 - 8.3 g/dL [facility] Sodium [Moles/Vol] 138 mmol/L 135 - 144 mmol/L [facility] Urea nitrogen [Mass/Vol] 8 mg/dL 6 - 20 mg/dL [facility] Urea nitrogen/Creatinine [Mass ratio] 10 mg/mg 9 - [address] [facility] Magnesiumon 12-23-2023 Magnesium [Mass/Vol] 2.0 mg/dL 1.6 - 2 .6 mg/dL [facility] Magnesium [Mass/Vol] 2.0 mg/dL Normal 1.6-2.6 [facility] Comment on above: Performed By: #### C DP, LIP, CP, TROPI #### [facility] [address] [place] [address] Pile Driving Superintendent: Jordon Tai MD Troponinon 12-23-2023 Troponin I.cardiac High sensitivity method [Mass/Vol] ng/L 0 - 14 ng/L [facility] Comment on above: High Sensitivity Tro ponin values cannot be compared with other Troponin methodologies. [facility] Troponin, High Sens <6 Normal 0-14 [facility] Comment on above: Result Comment: High Sensitivity Troponin values cannot be compared with other Troponin methodologies. Performed By: #### C DP, LIP, CP, TROPI #### [facility] [address] [place] [address] Pile Driving Superintendent: Jordon Tai MD Troponin I.cardiac High sensitivity method [Mass/Vol] ng/L 0 - 14 ng/L [facility] Comment on above: High Sensitivity Tro ponin values cannot be compared with other Troponin methodologies. [facility] Troponin, High Sens <6 Normal 0-14 [facility] Comment on above: Result Comment: High Sensitivity Troponin values cannot be compared with other Troponin methodologies. Performed By: #### C DP, LIP, CP, TROPI #### [facility] [address] [place] [address] [employer] Driving Superintendent: Jordon Tai MD XR CHEST (2 VW)on [...] Es Bach MD 12/23/23 Final result Normal [facility] XR Chest 2 Viewson No acute [...] grossly intact. IMPRESSION: No acute cardiopulmonary process [facility] Radiology Study observation (narrative) [facility] [place] XR Chest 2 ViewsOrdered By: Es Bach on 12-23-2023 [facility] Work Phone: Basic Metabolic Profon 12-06 Anion gap [Moles/Vol] 12 mmol/L Normal 9-[address] [facility] Comment on above: Performed By: #### B MP, CBC #### [facility] [address] [place], [place] [id number] Pile Driving Superintendent: Jordon Tai MD BUN/CRE Ratio 13 Normal 9-20 [facility] Comment on above: Performed By: #### B MP, CBC #### [facility] [address] [place] [address] Pile Driving Superintendent: Jordon Tai MD Calcium [Mass/Vol] 9.1 mg/dL Normal 8.6-10.4 [facility] Comment on above: Performed By: #### B MP, CBC #### [facility] [address] [place] [address] Pile Driving Superintendent: Jordon Tai MD Chloride [Moles/Vol] 102 mmol/L Normal 98-107 [facility] Comment on above: Performed By: #### B MP, CBC #### [facility] [address] [place] [address] Pile Driving Superintendent: Jordon Tai MD CO2 [Moles/Vol] 26 mmol/L Normal 20-31 [facility] Comment on above: Performed By: #### B MP, CBC #### [facility] [address] [place], [place] [id number] P[employer] Driving Superintendent: Jordon Tai MD Creatinine [Mass/Vol] 0.8 mg/dL Normal 0.5-0.[address] [facility] Comment on above: Performed By: #### B RUPAL, CBC #### [facility] [address] [place] [address] Pile Driving Superintendent: Jordon Tai MD GFR/1.73 sq M.predicted among non-blacks MDRD (S/P/Bld) [Vol rate/Area] mL/min/{1.73_m2} Normal >60 [facility] Comment on above: Result Comment: These [...] Performed By: #### B RUPAL, CBC #### [facility] [address] [place] [address] [place], [place] 9936983 Pile Driving Superintendent: Jordon Tai MD Glucose [Mass/Vol] 108 mg/dL High 70-99 [facility] Comment on above: Performed By: #### B RUPAL, CBC #### [address] [place], [place] [address]83 [employer]ile Driving Superintendent: Jordon Tai MD Potassium [Moles/Vol] 4.2 mmol/L Normal 3.7-5.[address] [facility] Comment on above: Performed By: #### B RUPAL, CBC #### [facility] [address] [place], [place] [id number] Pile Driving Superintendent: Jordon Tai MD Sodium [Moles/Vol] 140 mmol/L Normal 135-144 [facility] Comment on above: Performed By: #### B RUPAL, CBC #### [facility] [address] [place] [address] Pile Driving Superintendent: Jordon Tai MD Urea nitrogen [Mass/Vol] 10 mg/dL Normal 6-20 [facility] Comment on above: Performed By: #### B MP, CBC #### [address] [place] [address] Pile Driving Superintendent: Jordon Tai MD CBCon 12-07-2023 Erythrocyte distribution width (RBC) [Ratio] 11.9 % Normal 11.8-14.4 [facility] Comment on above: Performed By: #### B MP, CBC #### [address] [place] [address] Pile Driving Superintendent: Jordon Tai MD Hematocrit (Bld) [Volume fraction] 38.9 % Normal 36.3-47.1 [facility] Comment on above: Performed By: #### B MP, CBC #### [address] [place] [address] Pile Driving Superintendent: Jordon Tai MD Hemoglobin (Bld) [Mass/Vol] 13.1 g/dL Normal 11.9-15.1 [facility] Comment on above: Performed By: #### B MP, CBC #### [address] [place] [address] Pile Driving Superintendent: Jordon Tai MD MCH (RBC) [Entitic mass] 29.4 pg Normal 25.2-33.5 [facility] Comment on above: Performed By: #### B RUPAL, CBC #### [address] [place] [address] Pile Driving Superintendent: Jordon Tai MD MCHC (RBC) [Mass/Vol] 33.7 g/dL Normal 28.4-34.[address] [facility] Comment on above: Performed By: #### B MP, CBC #### [address] [place] [address] Pile Driving Superintendent: Jordon Tai MD MCV (RBC) [Entitic vol] 87.2 fL Normal 82.6-102.9 [facility] Comment on above: Performed By: #### B MP, CBC #### [facility] [address] [place], [place] [id number] Pile Driving Superintendent: Jordon Tai MD NRBC Automated 0.0 per 100 WBC Normal 0.0 [facility] Comment on above: Performed By: #### B MP, CBC #### [facility] [address] [place], [place] [id number] Pile Driving Superintendent: Jordon Tai MD Platelet mean volume (Bld) [Entitic vol] 9.7 fL Normal 8.1-13.5 [facility] Comment on above: Performed By: #### B MP, CBC #### [facility] [address] [place], [place] [id number] Pile Driving Superintendent: Jordon Tai MD Platelets (Bld) [#/Vol] 264 10*3/uL Normal 138-453 [facility] Comment on above: Performed By: #### B MP, CBC #### [address] [place] [address] Pile Driving Superintendent: Jordon Tai MD RBC (Bld) [#/Vol] 4.46 10*6/uL Normal 3.95-5.11 [facility] Comment on above: Performed By: #### B MP, CBC #### [address] [place] [address] Pile Driving Superintendent: Jordon Tai MD WBC (Bld) [#/Vol] 6.7 10*3/uL Normal 3.5-11.3 [facility] Comment on above: Performed By: #### B MP, CBC #### [address] [place] [address] Pile Driving Superintendent: Jordon Tai MD TSH w/reflex to FT4on 2023 Thyroid Stim. Horm. 2.09 uIU/mL Normal 0.30-5.00 [facility] Comment on above: Performed By: #### C DP, LIP, CP, TROPI #### [facility] [address] [place], [place] [address] Pile Driving Superintendent: Jordon Tai MD CBC with Diffon 08-18-2023 Abs. Basophil <0.03 Normal 0.00-0.20 [facility] Comment on above: Performed By: #### C DP, LIP, CP, TROPI #### [address] [place], [place] [address] Pile Driving Superintendent: Jordon Tai MD Abs.Imm.Granulocyte 0.04 k/uL Normal 0.00-0.30 [facility] Comment on above: Performed By: #### C DP, LIP, CP, TROPI #### [address] [place], [place] [address] Pile Driving Superintendent: Jordon Tai MD Abs.Neutrophil (Seg) 6.03 k/uL Normal 1.50-8.10 [facility] Comment on above: Performed By: #### C DP, LIP, CP, TROPI #### [address] [place], [place] [address] Pile Driving Superintendent: Jordon Tai MD Basophils/100 WBC (Bld) 0 % Normal 0-2 [facility] Comment on above: Performed By: #### C DP, LIP, CP, TROPI #### [address] [place], [place] [address] Pile Driving Superintendent: Jordon Tai MD Eosinophils (Bld) [#/Vol] 0.07 10*3/uL Normal 0.00-0.44 [facility] Comment on above: Performed By: #### C DP, LIP, CP, TROPI #### [address] [place], [facility] Pile Driving Superintendent: Jordon Tai MD Eosinophils/100 WBC (Bld) 1 % Normal 1-4 [facility] Comment on above: Performed By: #### C DP, LIP, CP, TROPI #### [address] [place], [place] [address] Pile Driving Superintendent: Jordon Tai MD Erythrocyte distribution width (RBC) [Ratio] 12.0 % Normal 11.8-14.4 [facility] Comment on above: Performed By: #### C DP, LIP, CP, TROPI #### [address] [place], [place] [address] Pile Driving Superintendent: Jordon Tai MD Hematocrit (Bld) [Volume fraction] 38.2 % Normal 36.3-47.1 [facility] Comment on above: Performed By: #### C DP, LIP, CP, TROPI #### [address] [place], [place] [address] Pile Driving Superintendent: Jordon Tai MD Hemoglobin (Bld) [Mass/Vol] 13.7 g/dL Normal 11.9-15.1 [facility] Comment on above: Performed By: #### C DP, LIP, CP, TROPI #### [address] [place], [place] [address] Pile Driving Superintendent: Jordon Tai MD Immature granulocytes/100 WBC (Bld) 0 % Normal 0 [facility] Comment on above: Performed By: #### C DP, LIP, CP, TROPI #### [address] [place], [place] [address] Pile Driving Superintendent: Jordon Tai MD Lymphocytes (Bld) [#/Vol] 2.56 10*3/uL Normal 1.10-3.70 [facility] Comment on above: Performed By: #### C DP, LIP, CP, TROPI #### [address] [place], [facility] [employer] Driving Superintendent: Jordon Tai MD Lymphocytes/100 WBC (Bld) 28 % Normal 24-43 [facility] Comment on above: Performed By: #### C DP, LIP, CP, TROPI #### [address] [place], [place] [address] Pile Driving Superintendent: Jordon Tai MD MCH (RBC) [Entitic mass] 30.9 pg Normal 25.2-33.5 [facility] Comment on above: Performed By: #### C DP, LIP, CP, TROPI #### [address] [place], [place] [address] Pile Driving Superintendent: Jordon Tai MD MCHC (RBC) [Mass/Vol] 35.9 g/dL High 28.4-34.[address] [facility] Comment on above: Performed By: #### C DP, LIP, CP, TROPI #### [address] [place] [address] Pile Driving Superintendent: Jordon Tai MD MCV (RBC) [Entitic vol] 86.2 fL Normal 82.6-102.9 [facility] Comment on above: Performed By: #### C DP, LIP, CP, TROPI #### [address] [place] [address] Pile Driving Superintendent: Jordon Tai MD Monocytes (Bld) [#/Vol] 0.60 10*3/uL Normal 0.10-1.20 [facility] Comment on above: Performed By: #### C DP, LIP, CP, TROPI #### [address] [place], [facility] P[employer] Driving Superintendent: Jordon Tai MD Monocytes/100 WBC (Bld) 6 % Normal 3-12 [facility] Comment on above: Performed By: #### C DP, LIP, CP, TROPI #### [address] [place], [facility] P[employer] Driving Superintendent: Jordon Tai MD Neutrophil (Seg) 65 % Normal 36-65 [facility] Comment on above: Performed By: #### C DP, LIP, CP, TROPI #### [facility] [address] [place], [place] [id number] Pile Driving Superintendent: Jordon Tai MD NRBC Automated 0.0 per 100 WBC Normal 0.0 [facility] Comment on above: Performed By: #### C DP, LIP, CP, TROPI #### [facility] [address] [place], [facility] [employer] Driving Superintendent: Jordon Tai MD Platelet mean volume (Bld) [Entitic vol] 9.5 fL Normal 8.1-13.5 [facility] Comment on above: Performed By: #### C DP, LIP, CP, TROPI #### [address] [place], [facility] [employer] Driving Superintendent: Jordon Tai MD Platelets (Bld) [#/Vol] 257 10*3/uL Normal 138-453 [facility] Comment on above: Performed By: #### C DP, LIP, CP, TROPI #### [address] [place] [address] Pile Driving Superintendent: Jordon Tai MD RBC (Bld) [#/Vol] 4.43 10*6/uL Normal 3.95-5.11 [facility] Comment on above: Performed By: #### C DP, LIP, CP, TROPI #### [address] [place], [facility] [employer] Driving Superintendent: Jordon Tai MD WBC (Bld) [#/Vol] 9.3 10*3/uL Normal 3.5-11.3 [facility] Comment on above: Performed By: #### C DP, LIP, CP, TROPI #### [facility] [address] [place] [address] Pile Driving Superintendent: Jordon Tai MD Comp Metabolic Pr/rfx MGon 0 08-18-2023 Albumin [Mass/Vol] 4.0 g/dL Normal 3.5-5.2 [facility] Comment on above: Performed By: #### C DP, LIP, CP, TROPI #### [facility] [address] [place], [place] [id number] Pile Driving Superintendent: Jordon Tai MD Albumin/Glob Ratio 1.4 Normal 1.0-2.5 [facility] Comment on above: Performed By: #### C DP, LIP, CP, TROPI #### [facility] [address] [place], [place] [address]26[address] Pile Driving Superintendent: Jordon Tai MD Alkaline Phos 158 U/L High 35-104 [facility] Comment on above: Performed By: #### C DP, LIP, CP, TROPI #### [facility] [address] [place], [place] [address]77283 [employer]ile Driving Superintendent: Jordon Tai MD ALT [Catalytic activity/Vol] 70 U/L High 5-33 [facility] Comment on above: Performed By: #### C DP, LIP, CP, TROPI #### [facility] [address] [place] [address] [place], [place] 1248383 [employer]ile Driving Superintendent: Jordon Tai MD Anion gap [Moles/Vol] 10 mmol/L Normal 9-[address] [facility] Comment on above: Performed By: #### C DP, LIP, CP, TROPI #### [facility] [address] [place], [place] 1883683 Pile Driving Superintendent: Jordon Tai MD AST [Catalytic activity/Vol] 45 U/L High <32 [facility] Comment on above: Performed By: #### C DP, LIP, CP, TROPI #### [facility] [address] [place] [address] Pile Driving Superintendent: Jordon Tai MD Bilirubin [Mass/Vol] 0.7 mg/dL Normal 0.3-1.2 [facility] Comment on above: Performed By: #### C DP, LIP, CP, TROPI #### [facility] [address] [place], [place] 778[address]83 Pile Driving Superintendent: Jordon Tai MD BUN/CRE Ratio 9 Normal 9-20 [facility] Comment on above: Performed By: #### C DP, LIP, CP, TROPI #### [facility] [address] [place], [place] 9322183 Pile Driving Superintendent: Jordon Tai MD Calcium [Mass/Vol] 8.9 mg/dL Normal 8.6-10.4 [facility] Comment on above: Performed By: #### C DP, LIP, CP, TROPI #### [facility] [address] [place], [place] 7999483 Pile Driving Superintendent: Jordon Tai MD Chloride [Moles/Vol] 103 mmol/L Normal 98-107 [facility] Comment on above: Performed By: #### C DP, LIP, CP, TROPI #### [address] [place], [place] 4766283 Pile Driving Superintendent: Jordon Tai MD CO2 [Moles/Vol] 27 mmol/L Normal 20-31 [facility] Comment on above: Performed By: #### C DP, LIP, CP, TROPI #### [facility] [address] [place], [place] 5967283 Pile Driving Superintendent: Jordon Tai MD Creatinine [Mass/Vol] 0.7 mg/dL Normal 0.5-0.[address] [facility] Comment on above: Performed By: #### C DP, LIP, CP, TROPI #### [facility] [address] [place] [address] Pile Driving Superintendent: Jordon Tai MD GFR/1.73 sq M.predicted among non-blacks MDRD (S/P/Bld) [Vol rate/Area] mL/min/{1.73_m2} Normal >60 [facility] Comment on above: Result Comment: These [...] #### C DP, LIP, CP, TROPI #### [facility] [address] [place] [address] [place] [address] Pile Driving Superintendent: Jordon Tai MD Glucose [Mass/Vol] 98 mg/dL Normal 70-99 [facility] Comment on above: Performed By: #### C DP, LIP, CP, TROPI #### [address] [place] [address] Pile Driving Superintendent: Jordon Tai MD Potassium [Moles/Vol] 3.9 mmol/L Normal 3.7-5.[address] [facility] Comment on above: Performed By: #### C DP, LIP, CP, TROPI #### [address] [place], [place] 1141083 Pile Driving Superintendent: Jordon Tai MD Protein [Mass/Vol] 6.9 g/dL Normal 6.4-8.3 [facility] Comment on above: Performed By: #### C DP, LIP, CP, TROPI #### [facility] [address] [place] [address] [place], [place] 0372283 Pile Driving Superintendent: Jordon Tai MD Sodium [Moles/Vol] 140 mmol/L Normal 135-144 [facility] Comment on above: Performed By: #### C DP, LIP, CP, TROPI #### [address] [place], [place] 1256783 Pile Driving Superintendent: Jordon Tai MD Urea nitrogen [Mass/Vol] 6 mg/dL Normal 6-20 [facility] Comment on above: Performed By: #### C DP, LIP, CP, TROPI #### [facility] [address] [place] [address] Pile Driving Superintendent: Jordon Tai MD MRI ABDOMEN W WO [...] Davie White MD 08/18/23 Final result Normal [facility] CBC with Diffon 08-17-2023 Abs. Basophil 0.03 k/uL Normal 0.00-0.20 [facility] Comment on above: Performed By: #### C MPX, CDP #### [facility] [address] [place] [address] Pile Driving Superintendent: Jordon Tai MD Abs.Imm.Granulocyte 0.04 k/uL Normal 0.00-0.30 [facility] Comment on above: Performed By: #### C MPX, CDP #### [address] [place], [place] 1261083 Pile Driving Superintendent: Jordon Tai MD Abs.Neutrophil (Seg) 5.24 k/uL Normal 1.50-8.10 [facility] Comment on above: Performed By: #### C MPX, CDP #### [address] [place], [place] 7254883 Pile Driving Superintendent: Jordon Tai MD Basophils/100 WBC (Bld) 0 % Normal 0-2 [facility] Comment on above: Performed By: #### C MPX, CDP #### [address] [place], [place] 2515883 Pile Driving Superintendent: Jordon Tai MD Eosinophils (Bld) [#/Vol] 0.07 10*3/uL Normal 0.00-0.44 [facility] Comment on above: Performed By: #### C MPX, CDP #### [address] [place], [place] 4138383 Pile Driving Superintendent: Jordon Tai MD Eosinophils/100 WBC (Bld) 1 % Normal 1-4 [facility] Comment on above: Performed By: #### C MPX, CDP #### [address] [place], [place] 5052583 Pile Driving Superintendent: Jordon Tai MD Erythrocyte distribution width (RBC) [Ratio] 11.9 % Normal 11.8-14.4 [facility] Comment on above: Performed By: #### C MPX, CDP #### [address] [place], [place] 4713583 Pile Driving Superintendent: Jordon Tai MD Hematocrit (Bld) [Volume fraction] 37.2 % Normal 36.3-47.1 [facility] Comment on above: Performed By: #### C MPX, CDP #### [address] [place], [place] 8210283 Pile Driving Superintendent: Jordon Tai MD Hemoglobin (Bld) [Mass/Vol] 12.7 g/dL Normal 11.9-15.1 [facility] Comment on above: Performed By: #### C MPX, CDP #### [address] [place], [place] 9935283 Pile Driving Superintendent: Jordon Tai MD Immature granulocytes/100 WBC (Bld) 1 % High 0 [facility] Comment on above: Performed By: #### C MPX, CDP #### [address] [place], [place] 8717183 Pile Driving Superintendent: Jordon Tai MD Lymphocytes (Bld) [#/Vol] 1.99 10*3/uL Normal 1.10-3.70 [facility] Comment on above: Performed By: #### C MPX, CDP #### [address] [place], [place] 7922383 Pile Driving Superintendent: Jordon Tai MD Lymphocytes/100 WBC (Bld) 25 % Normal 24-43 [facility] Comment on above: Performed By: #### C MPX, CDP #### [address] [place], [place] 9767083 Pile Driving Superintendent: Jordon Tai MD MCH (RBC) [Entitic mass] 29.7 pg Normal 25.2-33.5 [facility] Comment on above: Performed By: #### C MPX, CDP #### [address] [place], [place] 3389583 Pile Driving Superintendent: Jordon Tai MD MCHC (RBC) [Mass/Vol] 34.1 g/dL Normal 28.4-34.[address] [facility] Comment on above: Performed By: #### C MPX, CDP #### [facility] [address] [place] [address] Pile Driving Superintendent: Jordon Tai MD MCV (RBC) [Entitic vol] 87.1 fL Normal 82.6-102.9 [facility] Comment on above: Performed By: #### C MPX, CDP #### [facility] [address] [place], [place] 555[address]3 Pile Driving Superintendent: Jordon Tai MD Monocytes (Bld) [#/Vol] 0.71 10*3/uL Normal 0.10-1.20 [facility] Comment on above: Performed By: #### C MPX, CDP #### [address] [place], [place] 6163883 Pile Driving Superintendent: Jordon Tai MD Monocytes/100 WBC (Bld) 9 % Normal 3-12 [facility] Comment on above: Performed By: #### C MPX, CDP #### [address] [place], [place] 3543683 Pile Driving Superintendent: Jordon Tai MD Neutrophil (Seg) 64 % Normal 36-65 [facility] Comment on above: Performed By: #### C MPX, CDP #### [address] [place], [facility]83 Pile Driving Superintendent: Jordon Tai MD NRBC Automated 0.0 per 100 WBC Normal 0.0 [facility] Comment on above: Performed By: #### C MPX, CDP #### [address] [place], [facility]83 Pile Driving Superintendent: Jordon Tai MD Platelet mean volume (Bld) [Entitic vol] 9.5 fL Normal 8.1-13.5 [facility] Comment on above: Performed By: #### C MPX, CDP #### [address] [place], [place] 9035583 Pile Driving Superintendent: Jordon Tai MD Platelets (Bld) [#/Vol] 243 10*3/uL Normal 138-453 [facility] Comment on above: Performed By: #### C MPX, CDP #### [facility] [address] [place], [place] 4448683 Pile Driving Superintendent: Jordon Tai MD RBC (Bld) [#/Vol] 4.27 10*6/uL Normal 3.95-5.11 [facility] Comment on above: Performed By: #### C MPX, CDP #### [facility] [address] [place], [place] 3118083 Pile Driving Superintendent: Jordon Tai MD WBC (Bld) [#/Vol] 8.1 10*3/uL Normal 3.5-11.3 [facility] Comment on above: Performed By: #### C MPX, CDP #### [facility] [address] [place], [place] 6135383 Pile Driving Superintendent: Jordon Tai MD Comp Metabolic Pr/rfx MGon 0 - Albumin [Mass/Vol] 3.8 g/dL Normal 3.5-5.2 [facility] Comment on above: Performed By: #### C MPX, CDP #### [facility] [address] [place], [place] [address]091983 Pile Driving Superintendent: Jordon Tai MD Albumin/Glob Ratio 1.4 Normal 1.0-2.5 [facility] Comment on above: Performed By: #### C MPX, CDP #### [facility] [address] [place] [address] Pile Driving Superintendent: Jordon Tai MD Alkaline Phos 171 U/L High 35-104 [facility] Comment on above: Performed By: #### C MPX, CDP #### [facility] [address] [place], [place] 8351483 Pile Driving Superintendent: Jordon Tai MD ALT [Catalytic activity/Vol] 73 U/L High 5-33 [facility] Comment on above: Performed By: #### C MPX, CDP #### [facility] [address] [place], [place] 0806783 Pile Driving Superintendent: Jordon Tai MD Anion gap [Moles/Vol] 13 mmol/L Normal 9-[address] [facility] Comment on above: Performed By: #### C MPX, CDP #### [facility] [address] [place], [place] 8946383 Pile Driving Superintendent: Jordon Tai MD AST [Catalytic activity/Vol] 65 U/L High <32 [facility] Comment on above: Performed By: #### C MPX, CDP #### [facility] [address] [place], [place] 5324683 Pile Driving Superintendent: Jordon Tai MD Bilirubin [Mass/Vol] 0.7 mg/dL Normal 0.3-1.2 [facility] Comment on above: Performed By: #### C MPX, CDP #### [facility] [address] [place], [place] 7143583 P[employer] Driving Superintendent: Jordon Tai MD BUN/CRE Ratio 10 Normal 9-20 [facility] Comment on above: Performed By: #### C MPX, CDP #### [facility] [address] [place], [place] 7054083 Pile Driving Superintendent: Jordon Tai MD Calcium [Mass/Vol] 8.7 mg/dL Normal 8.6-10.4 [facility] Comment on above: Performed By: #### C MPX, CDP #### [facility] [address] [place], [place] 4252183 Pile Driving Superintendent: Jordon Tai MD Chloride [Moles/Vol] 99 mmol/L Normal 98-107 [facility] Comment on above: Performed By: #### C MPX, CDP #### [facility] [address] [place] [address] Pile Driving Superintendent: Jordon Tai MD CO2 [Moles/Vol] 27 mmol/L Normal 20-31 [facility] Comment on above: Performed By: #### C MPX, CDP #### [facility] [address] [place] [address] Pile Driving Superintendent: Jordon Tai MD Creatinine [Mass/Vol] 0.6 mg/dL Normal 0.5-0.[address] [facility] Comment on above: Performed By: #### C MPX, CDP #### [facility] [address] [place] [address] P[employer] Driving Superintendent: Jordon Tai MD GFR/1.73 sq M.predicted among non-blacks MDRD (S/P/Bld) [Vol rate/Area] mL/min/{1.73_m2} Normal >60 [facility] Comment on above: Result Comment: These [...] Performed By: #### C MPX, CDP #### [facility] [address] [place] [address] Pile Driving Superintendent: Jordon Tai MD Glucose [Mass/Vol] 92 mg/dL Normal 70-99 [facility] Comment on above: Performed By: #### C MPX, CDP #### [facility] [address] [place] [address] Pile Driving Superintendent: Jordon Tai MD Potassium [Moles/Vol] 3.9 mmol/L Normal 3.7-5.[address] [facility] Comment on above: Performed By: #### C MPX, CDP #### [facility] [address] [place] [address] Pile Driving Superintendent: Jordon Tai MD Protein [Mass/Vol] 6.5 g/dL Normal 6.4-8.3 [facility] Comment on above: Performed By: #### C MPX, CDP #### [facility] [address] [place], [place] [id number] Pile Driving Superintendent: Jordon Tai MD Sodium [Moles/Vol] 139 mmol/L Normal 135-144 [facility] Comment on above: Performed By: #### C MPX, CDP #### [address] [place] [address] Pile Driving Superintendent: Jordon Tai MD Urea nitrogen [Mass/Vol] 6 mg/dL Normal 6-20 [facility] Comment on above: Performed By: #### C MPX, CDP #### [address] [place] [address] Pile Driving Superintendent: Jordon Tai MD Surgical Pathology Reporton 08-17-2023 Surgical Pathology Report (NOTE) Path Number: [id number] -- Diagnosis -- A. STOMACH, ANTRUM, BIOPSIES: [...] Description A-C. Microscopic examination performed. Processing Lab: [address] [id number] Interpretation Performed at [address] [id number] SURGICAL PATHOLOGY CONSULTATION Patient Name: MIKE SHARIF [facility] Rec: [id number] [facility] ANATOMIC PATHOLOGY [facility]. [place], [place] [id number] Normal [facility] CBC with Diffon 08-16-2023 Abs. Basophil 0.03 k/uL Normal 0.00-0.20 [facility] Comment on above: Performed By: #### C DP, LIP, CP, TROPI #### [address] [place] [address] Pile Driving Superintendent: Jordon Tai MD Abs.Imm.Granulocyte 0.06 k/uL Normal 0.00-0.30 [facility] Comment on above: Performed By: #### C DP, LIP, CP, TROPI #### [facility] [address] [place] [address] [place] [address] Pile Driving Superintendent: Jordon Tai MD Abs.Neutrophil (Seg) 5.71 k/uL Normal 1.50-8.10 [facility] Comment on above: Performed By: #### C DP, LIP, CP, TROPI #### [facility] [address] [place] [address] [place] [address] Pile Driving Superintendent: Jordon Tai MD Basophils/100 WBC (Bld) 0 % Normal 0-2 [facility] Comment on above: Performed By: #### C DP, LIP, CP, TROPI #### [address] [place], [place] [id number] Pile Driving Superintendent: Jordon Tai MD Eosinophils (Bld) [#/Vol] 0.07 10*3/uL Normal 0.00-0.44 [facility] Comment on above: Performed By: #### C DP, LIP, CP, TROPI #### [address] [place], [place] [id number] [employer] Driving Superintendent: Jordon Tai MD Eosinophils/100 WBC (Bld) 1 % Normal 1-4 [facility] Comment on above: Performed By: #### C DP, LIP, CP, TROPI #### [address] [place], [facility] P[employer] Driving Superintendent: Jordon Tai MD Erythrocyte distribution width (RBC) [Ratio] 11.9 % Normal 11.8-14.4 [facility] Comment on above: Performed By: #### C DP, LIP, CP, TROPI #### [address] [place], [facility]83 [employer] Driving Superintendent: Jordon Tai MD Hematocrit (Bld) [Volume fraction] 39.3 % Normal 36.3-47.1 [facility] Comment on above: Performed By: #### C DP, LIP, CP, TROPI #### [address] [place], [place] [id number] [employer] Driving Superintendent: Jordon Tai MD Hemoglobin (Bld) [Mass/Vol] 13.4 g/dL Normal 11.9-15.1 [facility] Comment on above: Performed By: #### C DP, LIP, CP, TROPI #### [address] [place], [facility] P[employer] Driving Superintendent: Jordon Tai MD Immature granulocytes/100 WBC (Bld) 1 % High 0 [facility] Comment on above: Performed By: #### C DP, LIP, CP, TROPI #### [facility] [address] [place], [place] [id number] Pile Driving Superintendent: Jordon Tai MD Lymphocytes (Bld) [#/Vol] 2.71 10*3/uL Normal 1.10-3.70 [facility] Comment on above: Performed By: #### C DP, LIP, CP, TROPI #### [address] [place] [address] Pile Driving Superintendent: Jordon Tai MD Lymphocytes/100 WBC (Bld) 29 % Normal 24-43 [facility] Comment on above: Performed By: #### C DP, LIP, CP, TROPI #### [address] [place], [place] [phone] Pile Driving Superintendent: Jordon Tai MD MCH (RBC) [Entitic mass] 29.5 pg Normal 25.2-33.5 [facility] Comment on above: Performed By: #### C DP, LIP, CP, TROPI #### [address] [place] [address] Pile Driving Superintendent: Jordon Tai MD MCHC (RBC) [Mass/Vol] 34.1 g/dL Normal 28.4-34.[address] [facility] Comment on above: Performed By: #### C DP, LIP, CP, TROPI #### [address] [place] [address] Pile Driving Superintendent: Jordon Tai MD MCV (RBC) [Entitic vol] 86.6 fL Normal 82.6-102.9 [facility] Comment on above: Performed By: #### C DP, LIP, CP, TROPI #### [address] [place] [address] Pile Driving Superintendent: Jordon Tai MD Monocytes (Bld) [#/Vol] 0.85 10*3/uL Normal 0.10-1.20 [facility] Comment on above: Performed By: #### C DP, LIP, CP, TROPI #### [facility] [address] [place] [address] [place] [address] Pile Driving Superintendent: Jordon Tai MD Monocytes/100 WBC (Bld) 9 % Normal 3-12 [facility] Comment on above: Performed By: #### C DP, LIP, CP, TROPI #### [address] [place] [address] Pile Driving Superintendent: Jordon Tai MD Neutrophil (Seg) 60 % Normal 36-65 [facility] Comment on above: Performed By: #### C DP, LIP, CP, TROPI #### [address] [place], [place] [address] Pile Driving Superintendent: Jordon Tai MD NRBC Automated 0.0 per 100 WBC Normal 0.0 [facility] Comment on above: Performed By: #### C DP, LIP, CP, TROPI #### [address] [place], [facility]83 Pile Driving Superintendent: Jordon Tai MD Platelet mean volume (Bld) [Entitic vol] 9.3 fL Normal 8.1-13.5 [facility] Comment on above: Performed By: #### C DP, LIP, CP, TROPI #### [address] [place], [place] [id number] Pile Driving Superintendent: Jordon Tai MD Platelets (Bld) [#/Vol] 271 10*3/uL Normal 138-453 [facility] Comment on above: Performed By: #### C DP, LIP, CP, TROPI #### [address] [place], [facility]83 P[employer] Driving Superintendent: Jordon Tai MD RBC (Bld) [#/Vol] 4.54 10*6/uL Normal 3.95-5.11 [facility] Comment on above: Performed By: #### C DP, LIP, CP, TROPI #### [facility] [address] [place] [address] Pile Driving Superintendent: Jordon Tai MD WBC (Bld) [#/Vol] 9.4 10*3/uL Normal 3.5-11.3 [facility] Comment on above: Performed By: #### C DP, LIP, CP, TROPI #### [facility] [address] [place] [address] Pile Driving Superintendent: Jordon Tai MD CT ABDOMEN PELVIS W [...] Davie White MD 08/16/23 Final result Normal [facility] Comp Metabolic Profon 2023 Albumin [Mass/Vol] 4.2 g/dL Normal 3.5-5.2 [facility] Comment on above: Performed By: #### C DP, LIP, CP, TROPI #### [facility] [address] [place] [address] [place]. [place], [place] [id number] Pile Driving Superintendent: Jordon Tai MD Albumin/Glob Ratio 1.4 Normal 1.0-2.5 [facility] Comment on above: Performed By: #### C DP, LIP, CP, TROPI #### [address] [place] [address] Pile Driving Superintendent: Jordon Tai MD Alkaline Phos 117 U/L High 35-104 [facility] Comment on above: Performed By: #### C DP, LIP, CP, TROPI #### [facility] [address] [place] [address] [place], [place] 1054283 P[employer] Driving Superintendent: Jordon Tai MD ALT [Catalytic activity/Vol] 37 U/L High 5-33 [facility] Comment on above: Performed By: #### C DP, LIP, CP, TROPI #### [facility] [address] [place] [address] [place] [address] Pile Driving Superintendent: Jordon Tai MD Anion gap [Moles/Vol] 12 mmol/L Normal 9-[address] [facility] Comment on above: Performed By: #### C DP, LIP, CP, TROPI #### [facility] [address] [place], [place] [phone] Pile Driving Superintendent: Jordon Tai MD AST [Catalytic activity/Vol] 20 U/L Normal <32 [facility] Comment on above: Performed By: #### C DP, LIP, CP, TROPI #### [facility] [address] [place], [place] 689[address]83 Pile Driving Superintendent: Jordon Tai MD Bilirubin [Mass/Vol] 0.4 mg/dL Normal 0.3-1.2 [facility] Comment on above: Performed By: #### C DP, LIP, CP, TROPI #### [address] [place], [place] [phone] Pile Driving Superintendent: Jordon Tai MD BUN/CRE Ratio 9 Normal 9-20 [facility] Comment on above: Performed By: #### C DP, LIP, CP, TROPI #### [address] [place], [place] [phone] [employer]ile Driving Superintendent: Jordon Tai MD Calcium [Mass/Vol] 9.1 mg/dL Normal 8.6-10.4 [facility] Comment on above: Performed By: #### C DP, LIP, CP, TROPI #### [address] [place], [place] [phone] Pile Driving Superintendent: Jordon Tai MD Chloride [Moles/Vol] 98 mmol/L Normal 98-107 [facility] Comment on above: Performed By: #### C DP, LIP, CP, TROPI #### [facility] [address] [place], [place] 896[address]83 Pile Driving Superintendent: Jordon Tai MD CO2 [Moles/Vol] 28 mmol/L Normal 20-31 [facility] Comment on above: Performed By: #### C DP, LIP, CP, TROPI #### [address] [place] [address] Pile Driving Superintendent: Jordon Tai MD Creatinine [Mass/Vol] 0.8 mg/dL Normal 0.5-0.[address] [facility] Comment on above: Performed By: #### C DP, LIP, CP, TROPI #### [facility] [address] [place] [address] Pile Driving Superintendent: Jordon Tai MD GFR/1.73 sq M.predicted among non-blacks MDRD (S/P/Bld) [Vol rate/Area] mL/min/{1.73_m2} Normal >60 [facility] Comment on above: Result Comment: These [...] #### C DP, LIP, CP, TROPI #### [address] [place] [address] Pile Driving Superintendent: Jordon Tai MD Glucose [Mass/Vol] 87 mg/dL Normal 70-99 [facility] Comment on above: Performed By: #### C DP, LIP, CP, TROPI #### [address] [place], [facility]83 P[employer] Driving Superintendent: Jordon Tai MD Potassium [Moles/Vol] 3.3 mmol/L Low 3.7-5.[address] [facility] Comment on above: Performed By: #### C DP, LIP, CP, TROPI #### [address] [place] [address] Pile Driving Superintendent: Jordon Tai MD Protein [Mass/Vol] 7.1 g/dL Normal 6.4-8.3 [facility] Comment on above: Performed By: #### C DP, LIP, CP, TROPI #### [facility] [address] [place] [address] Pile Driving Superintendent: Jordon Tai MD Sodium [Moles/Vol] 138 mmol/L Normal 135-144 [facility] Comment on above: Performed By: #### C DP, LIP, CP, TROPI #### [facility] [address] [place] [address] Pile Driving Superintendent: Jordon Tai MD Urea nitrogen [Mass/Vol] 7 mg/dL Normal 6-20 [facility] Comment on above: Performed By: #### C DP, LIP, CP, TROPI #### [address] [place] [address] Pile Driving Superintendent: Jordon Tai MD HCG, ,Urineon 08-16 Beta HCG ( test) Ql (U) Negative Normal NEG [facility] Comment on above: Result Comment: Spec imens with hCG levels near the threshold of the test (25 mIU/mL) may give a negative or indeterminate result. In such cases, another test should be performed with a new specimen in 48-72 hours. If early is suspected clinically in this setting, correlation with quantitative serum b-hCG level is suggested. [facility] has confirmed the use of plasma for this test. This has not been cleared or approved by the U.S. Food and Drug Administration. The FDA has determined that such clearance is not necessary. Performed By: #### U AM[facility], [facility] #### [facility] [address] [place] [address] [place] [address] Pile Driving Superintendent: Jordon Tai MD Lactic Acidon 7 Lactate [Moles/Vol] 1.3 mmol/L Normal 0.5-2.2 [facility] Comment on above: Performed By: #### C DP, LIP, CP, TROPI #### [facility] [address] [place] [address] Pile Driving Superintendent: Jordon Tai MD Lipaseon 6 Lipase [Catalytic activity/Vol] 24 U/L Normal 13-60 [facility] Comment on above: Performed By: #### C DP, LIP, CP, TROPI #### [facility] [address] [place] [address] Pile Driving Superintendent: Jordon Tai MD Troponinon 08-16-2023 Troponin, High Sens <6 Normal 0-14 [facility] Comment on above: Result Comment: High Sensitivity Troponin values cannot be compared with other Troponin methodologies. Performed By: #### C DP, LIP, CP, TROPI #### [facility] [address] [place], [place] [phone] Pile Driving Superintendent: Jordon Tai MD Urinalysis w/ Microon 9 Bacteria TRACE Abnormal NONE [facility] Comment on above: Performed By: #### B MP, CBC #### [facility] [address] [place], [place] [id number] Pile Driving Superintendent: Jordon Tai MD Bilirubin, SemiQt,Ur Negative Normal NEG [facility] Comment on above: Performed By: #### B MP, CBC #### [facility] [address] [place] [address] Pile Driving Superintendent: Jordon Tai MD Blood, Urine Negative Normal NEG [facility] Comment on above: Performed By: #### B MP, CBC #### [facility] [address] [place], [place] [phone] Pile Driving Superintendent: Jordon Tai MD Clarity (U) Clear Normal CLEAR [facility] Comment on above: Performed By: #### B MP, CBC #### [facility] [address] [place] [address] Pile Driving Superintendent: Jordon Tai MD Color (U) Yellow Normal YEL [facility] Comment on above: Performed By: #### B MP, CBC #### [facility] [address] [place], [place] 650[address]83 Pile Driving Superintendent: Jordon Tai MD Epithelial cells LM Ql (Urine sed) 0 TO 2 Normal 0-25 [facility] Comment on above: Performed By: #### B MP, CBC #### [facility] [address] [place], [place] [phone] Pile Driving Superintendent: Jordon Tai MD Glucose Ql (U) Negative Normal NEG [facility] in Hospital Comment on above: Performed By: #### B MP, CBC #### [facility] [address] [place], [place] [phone] Pile Driving Superintendent: Jordon Tai MD Ketones Ql (U) Negative Normal NEG [facility] Hospital Comment on above: Performed By: #### B MP, CBC #### [facility] [address] [place], [place] [phone] Pile Driving Superintendent: Jordon Tai MD Leukocyte esterase Test strip Ql (U) Negative Normal NEG [facility] Comment on above: Performed By: #### B MP, CBC #### [facility] [address] [place] [address] [place], [place] [phone] Pile Driving Superintendent: Jordon Tai MD Nitrite,Ur Negative Normal [facility] Comment on above: Performed By: #### B MP, CBC #### [facility] [address] [place], [place] [phone] Pile Driving Superintendent: Jordon Tai MD PH,Ur 6.0 Normal 5.0-9.0 [facility] Comment on above: Performed By: #### B MP, CBC #### [facility] [address] [place], [place] 3587383 Pile Driving Superintendent: Jordon Tai MD Protein Ql (U) Negative Normal NEG [facility] Comment on above: Performed By: #### B MP, CBC #### [facility] [address] [place], [place] 1843383 Pile Driving Superintendent: Jordon Tai MD Spec. Ramona,Ur 1.010 Normal 1.010-1.02 0 [facility] Comment on above: Performed By: #### B MP, CBC #### [facility] [address] [place], [place] 8703583 Pile Driving Superintendent: Jordon Tai MD Urine RBC's 0 TO 2 Normal 0-2 [facility] Comment on above: Performed By: #### B MP, CBC #### [facility] [address] [place], [place] [address]36[address]83 Pile Driving Superintendent: Jordon Tai MD Urine WBC's 0 TO 2 Normal 0-5 [facility] Comment on above: Performed By: #### B MP, CBC #### [facility] [address] [place], [place] 6323183 Pile Driving Superintendent: Jordon Tai MD Urobilinogen,Ur Normal Normal 0.0-1.0 [facility] Comment on above: Performed By: #### B MP, CBC #### [facility] [address] [place] [address] [place] [address] Pile Driving Superintendent: Jordon Tai MD CT ABDOMEN PELVIS W [...] Viri Frey MD 08/13/23 Final result Normal [facility] CBC with Auto Differentialon 08-12-2023 Basophils (Bld) [#/Vol] 0.06 10*3/uL [facility] Basophils/100 WBC (Bld) 1 % 0 - 2 % B [facility] Eosinophils (Bld) [#/Vol] 0.11 10*3/uL [facility] Eosinophils/100 WBC (Bld) 1 % 1 - 4 % [facility] Erythrocyte distribution width (RBC) [Ratio] 11.9 % 11.8 - 14.4 % [facility] Hematocrit (Bld) [Volume fraction] 40.3 % 36.3 - 47.1 % [facility] Hemoglobin (Bld) [Mass/Vol] 14.3 g/dL 11.9 - 15.1 g/dL [facility] Immature granulocytes (Bld) [#/Vol] 0.04 10*3/uL [facility] Immature granulocytes/100 WBC (Bld) 0 % 0 [facility] Interpretation and review of laboratory results Abnormal [facility] Lymphocytes/100 WBC (Bld) 31 % 24 - 43 % [facility] Lymphocytes/100 WBC (Bld) 3.27 % [facility] MCH (RBC) [Entitic mass] 30.0 pg 25.2 - 33.5 pg [facility] MCHC (RBC) [Mass/Vol] 35.5 g/dL High 28.4 - 34.8 g/dL [facility] MCV (RBC) [Entitic vol] 84.5 fL 82.6 - 102.9 fL [facility] Monocytes/100 WBC (Bld) 7 % 3 - 12 % [facility] Monocytes/100 WBC (Bld) 0.69 % [facility] Neutrophils/100 WBC (Bld) 60 % 36 - 65 % [facility] Nucleated RBC/100 WBC (Bld) [Ratio] 0.0 % 0.0 per 100 WBC [facility] Platelet mean volume (Bld) [Entitic vol] 9.3 fL 8.1 - 13.5 fL [facility] Platelets (Bld) [#/Vol] 381 10*3/uL [facility] RBC (Bld) [#/Vol] 4.77 10*6/uL 3.95 - 5.11 m/uL [facility] Segmented neutrophils/100 WBC (Bld) 6.23 % [facility] WBC other (Bld) [#/Vol] 10.4 [facility] CBC with Diffon 08-12-2023 Abs. Basophil 0.06 k/uL Normal 0.00-0.20 [facility] Comment on above: Performed By: #### C DP, LIP, CP, TROPI #### [facility] [address] [place] [address] [place] [address] Pile Driving Superintendent: Jordon Tai MD Abs.Imm.Granulocyte 0.04 k/uL Normal 0.00-0.30 [facility] Comment on above: Performed By: #### C DP, LIP, CP, TROPI #### [facility] [address] [place] [address] Pile Driving Superintendent: Jordon Tai MD Abs.Neutrophil (Seg) 6.23 k/uL Normal 1.50-8.10 [facility] Comment on above: Performed By: #### C DP, LIP, CP, TROPI #### [facility] [address] [place] [address] Pile Driving Superintendent: Jordon Tai MD Basophils/100 WBC (Bld) 1 % Normal 0-2 [facility] Comment on above: Performed By: #### C DP, LIP, CP, TROPI #### [address] [place], [place] [phone] Pile Driving Superintendent: Jordon Tai MD Eosinophils (Bld) [#/Vol] 0.11 10*3/uL Normal 0.00-0.44 [facility] Comment on above: Performed By: #### C DP, LIP, CP, TROPI #### [address] [place] [address] Pile Driving Superintendent: Jordon Tai MD Eosinophils/100 WBC (Bld) 1 % Normal 1-4 [facility] Comment on above: Performed By: #### C DP, LIP, CP, TROPI #### [address] [place], [facility]83 P[employer] Driving Superintendent: Jordon Tai MD Erythrocyte distribution width (RBC) [Ratio] 11.9 % Normal 11.8-14.4 [facility] Comment on above: Performed By: #### C DP, LIP, CP, TROPI #### [address] [place], [place] [phone] Pile Driving Superintendent: Jordon Tai MD Hematocrit (Bld) [Volume fraction] 40.3 % Normal 36.3-47.1 [facility] Comment on above: Performed By: #### C DP, LIP, CP, TROPI #### [address] [place], [place] 9111083 P[employer] Driving Superintendent: Jordon Tai MD Hemoglobin (Bld) [Mass/Vol] 14.3 g/dL Normal 11.9-15.1 [facility] Comment on above: Performed By: #### C DP, LIP, CP, TROPI #### [address] [place], [facility]83 P[employer] Driving Superintendent: Jordon aTi MD Immature granulocytes/100 WBC (Bld) 0 % Normal 0 [facility] Comment on above: Performed By: #### C DP, LIP, CP, TROPI #### [address] [place], [facility] P[employer] Driving Superintendent: Jordon Tai MD Lymphocytes (Bld) [#/Vol] 3.27 10*3/uL Normal 1.10-3.70 [facility] Comment on above: Performed By: #### C DP, LIP, CP, TROPI #### [address] [place], [facility] P[employer] Driving Superintendent: Jordon Tai MD Lymphocytes/100 WBC (Bld) 31 % Normal 24-43 [facility] Comment on above: Performed By: #### C DP, LIP, CP, TROPI #### [address] [place], [facility] P[employer] Driving Superintendent: Jordon Tai MD MCH (RBC) [Entitic mass] 30.0 pg Normal 25.2-33.5 [facility] Comment on above: Performed By: #### C DP, LIP, CP, TROPI #### [address] [place], [facility] P[employer] Driving Superintendent: Jordon Tai MD MCHC (RBC) [Mass/Vol] 35.5 g/dL High 28.4-34.[address] [facility] Comment on above: Performed By: #### C DP, LIP, CP, TROPI #### [address] [place] [address] Pile Driving Superintendent: Jordon Tai MD MCV (RBC) [Entitic vol] 84.5 fL Normal 82.6-102.9 [facility] Comment on above: Performed By: #### C DP, LIP, CP, TROPI #### [address] [place] [phone] P[employer] Driving Superintendent: Jordon Tai MD Monocytes (Bld) [#/Vol] 0.69 10*3/uL Normal 0.10-1.20 [facility] Comment on above: Performed By: #### C DP, LIP, CP, TROPI #### [facility] [address] [place] [address] Dr[place], [facility] P[employer] Driving Superintendent: Jordon Tai MD Monocytes/100 WBC (Bld) 7 % Normal 3-12 [facility] Comment on above: Performed By: #### C DP, LIP, CP, TROPI #### [address] [place] [address] Pile Driving Superintendent: Jordon Tai MD Neutrophil (Seg) 60 % Normal 36-65 [facility] Comment on above: Performed By: #### C DP, LIP, CP, TROPI #### [address] [place], [place] [address] Pile Driving Superintendent: Jordon Tai MD NRBC Automated 0.0 per 100 WBC Normal 0.0 [facility] Comment on above: Performed By: #### C DP, LIP, CP, TROPI #### [address] [place], [facility] P[employer] Driving Superintendent: Jordon Tai MD Platelet mean volume (Bld) [Entitic vol] 9.3 fL Normal 8.1-13.5 [facility] Comment on above: Performed By: #### C DP, LIP, CP, TROPI #### [address] [place], [place] 1024[address] P[employer] Driving Superintendent: Jordon Tai MD Platelets (Bld) [#/Vol] 381 10*3/uL Normal 138-453 [facility] Comment on above: Performed By: #### C DP, LIP, CP, TROPI #### [address] [place], [facility] P[employer] Driving Superintendent: Jordon Tai MD RBC (Bld) [#/Vol] 4.77 10*6/uL Normal 3.95-5.11 [facility] Comment on above: Performed By: #### C DP, LIP, CP, TROPI #### [address] [place] [address] Pile Driving Superintendent: Jordon Tai MD WBC (Bld) [#/Vol] 10.4 10*3/uL Normal 3.5-11.3 [facility] Comment on above: Performed By: #### C DP, LIP, CP, TROPI #### [address] [place] [address] Pile Driving Superintendent: Jordon Tai MD Comp Metabolic Profon 2023 Albumin [Mass/Vol] 4.3 g/dL Normal 3.5-5.2 [facility] Comment on above: Performed By: #### C DP, LIP, CP, TROPI #### [address] [place], [place] [phone] [employer] Driving Superintendent: Jordon Tai MD ALT [Catalytic activity/Vol] 34 U/L High 5-33 [facility] Comment on above: Performed By: #### C DP, LIP, CP, TROPI #### [address] [place] [address] P[employer] Driving Superintendent: Jordon Tai MD Anion gap [Moles/Vol] 16 mmol/L Normal 9-17 [facility] Comment on above: Performed By: #### C DP, LIP, CP, TROPI #### [address] [place] [address] [employer]: Jordon Tai MD AST [Catalytic activity/Vol] 21 U/L Normal <32 [facility] Comment on above: Performed By: #### C DP, LIP, CP, TROPI #### [address] [place], [place] [id number] [employer] Superintendent: Jordon Tai MD Bilirubin [Mass/Vol] 0.4 mg/dL Normal 0.3-1.2 [facility] Comment on above: Performed By: #### C DP, LIP, CP, TROPI #### [address] [place], [place] [id number] [employer] Superintendent: Jordon Tai MD Calcium [Mass/Vol] 9.0 mg/dL Normal 8.6-10.4 [facility] Comment on above: Performed By: #### C DP, LIP, CP, TROPI #### [address] [place], [place] [id number] [employer] Superintendent: Jordon Tai MD Chloride [Moles/Vol] 96 mmol/L Low 98-107 [facility] Comment on above: Performed By: #### C DP, LIP, CP, TROPI #### [address] [place], [place] [id number] [employer] Superintendent: Jordon Tai MD CO2 [Moles/Vol] 24 mmol/L Normal 20-31 [facility] Comment on above: Performed By: #### C DP, LIP, CP, TROPI #### [address] [place] [address] [employer] Superintendent: Jordon Tai MD Creatinine [Mass/Vol] 0.7 mg/dL Normal 0.5-0.9 [facility] Comment on above: Performed By: #### C DP, LIP, CP, TROPI #### [address] [place], [place] [id number] [employer] Superintendent: Jordon Tai MD Glucose [Mass/Vol] 106 mg/dL High 70-99 [facility] Comment on above: Performed By: #### C DP, LIP, CP, TROPI #### [address] [place], [place] 8158083 [employer] Superintendent: Jordon Tai MD Potassium [Moles/Vol] 3.3 mmol/L Low 3.7-5.3 [facility] Comment on above: Performed By: #### C DP, LIP, CP, TROPI #### [address] [place], [place] [phone] [employer] Superintendent: Jordon Tai MD Protein [Mass/Vol] 7.3 g/dL Normal 6.4-8.3 [facility] Comment on above: Performed By: #### C DP, LIP, CP, TROPI #### [address] [place], [place] [phone] [employer] Superintendent: Jordon Tai MD Sodium [Moles/Vol] 136 mmol/L Normal 135-144 [facility] Comment on above: Performed By: #### C DP, LIP, CP, TROPI #### [address] [place], [place] [phone] [employer] Superintendent: Jordon Tai MD Urea nitrogen [Mass/Vol] 6 mg/dL Normal 6-20 [facility] Comment on above: Performed By: #### C DP, LIP, CP, TROPI #### [address] [place], [place] [phone] [employer] Superintendent: Jordon Tai MD Albumin/Glob Ratio 1.4 Normal 1.0-2.5 [facility] Comment on above: Performed By: #### C DP, LIP, CP, TROPI #### [address] [place], [place] 1695383 [employer] Superintendent: Jordon Tai MD Alkaline Phos 111 U/L High 35-104 [facility] Comment on above: Performed By: #### C DP, LIP, CP, TROPI #### [address] [place], [place] [id number] [employer] Superintendent: Jordon Tai MD BUN/CRE Ratio 9 Normal 9-20 [facility] Comment on above: Performed By: #### C CARMEN BEDOLLA CP, TROPI #### [facility] [address] [place] [address] [employer] D[employer] Superintendent: Jordon Tai MD GFR/1.73 sq M.predicted among non-blacks MDRD (S/P/Bld) [Vol rate/Area] mL/min/{1.73_m2} Normal >60 [facility] Comment on above: Result Comment: These [...] #### C CARMEN BEDOLLA CP, TROPI #### [facility] [address] [place] [address] [employer] Superintendent: Jordon Tai MD Comprehensive Metabolic Pane misti 08-12-2023 Albumin/Globulin [Mass ratio] 1.4 {ratio} 1.0 - 2.5 [facility] ALP [Catalytic activity/Vol] 111 U/L High 35 - 104 U/L [facility] GFR/1.73 sq M.predicted MDRD (S/P/Bld) [Vol rate/Area] - PINF [facility] Comment on above: These results are not [...] Interpretation and review of laboratory results Abnormal [facility] Urea nitrogen/Creatinine [Mass ratio] 9 mg/mg 9 - 20 [facility] Lipaseon 08-12-2023 Lipase [Catalytic activity/Vol] 22 U/L Normal 13-60 [facility] Comment on above: Performed By: #### C DP, LIP, CP, TROPI #### [facility] [address] [place] [address] [employer] Superintendent: Jordon Tai MD No Panel Informationon 08-12 [facility] Portable XR Chest AP single viewon 08-12-2023 No radiographic evid ence of acute cardiopulmonary disease. Chronic appearing coarse interstitial densities predominate perihilar regions and lung bases, typical of sequela from smoking or other previous infectious/inflammatory process. [facility] EXAMINATION: ONE XRAY VIEW OF THE [...] over the central mid upper left chest. [facility] Rickey Kwan MD - 08/12/2023 EXAMINATION: [...] from smoking or other previous infectious/inflammatory process. [facility] Radiology Study observation (narrative) [facility] Portable XR Chest AP single viewOrdered By: Rickey Kwan on 08-12-2023 [facility] Work Phone: Troponinon 08-12-2023 Troponin I.cardiac High sensitivity method [Mass/Vol] ng/L 0 - 14 ng/L [facility] Comment on above: High Sensitivity Tro ponin values cannot be compared with other Troponin methodologies. [facility] Troponin, High Sens <6 Normal 0-14 [facility] Comment on above: Result Comment: High Sensitivity Troponin values cannot be compared with other Troponin methodologies. Performed By: #### C DP, LIP, CP, TROPI #### [facility] [address] [place] [address] [employer] D[employer] Superintendent: Jordon Tai MD XR CHEST PORTABLEon 08-12-19 [...] Rickey Kwan MD 08/12/23 Final result Normal [facility] Rapid Strep Screenon 024 Specimen source Nom (Unsp spec) .THROAT SWAB [facility] Strep A, Molecular Negative NEGATIVE [facility] Strep Group A, Rapidon 07-20 Strep A, Molecular Negative Normal NEG [facility] Comment on above: Performed By: #### C DP, LIP, CP, TROPI #### [facility] [address] [place] [address] [employer] Superintendent: Jordon Tai MD Source .THROAT SWAB Normal [facility] Comment on above: Performed By: #### C DP, LIP, CP, TROPI #### [facility] [address] [place] [address] [employer] D[employer] Superintendent: Jordon Tai MD Lipid Profileon 04-29-2023 Cholesterol [Mass/Vol] 148 mg/dL Normal <200 [facility] Comment on above: Result Comment: Cholesterol Guidelines: <200 Desirable 200-240 Borderline >240 Undesirable Performed By: #### C DP, LIP, CP, TROPI #### [facility] [address] [place] [address] [place], [place] [phone] [employer] Superintendent: Jordon Tai MD Cholesterol in HDL [Mass/Vol] 39 mg/dL Low >40 [facility] Comment on above: Result Comment: HDL Guidelines: <40 Undesirable 40-59 Borderline >59 Desirable Performed By: #### C DP, LIP, CP, TROPI #### [address] [place], [place] [phone] [employer] Superintendent: Jordon Tai MD Cholesterol in LDL [Mass/Vol] 61 mg/dL Normal 0-130 [facility] Comment on above: Result Comment: LDL Guidelines: <100 Desirable 100-129 Near to/above Desirable 130-159 Borderline >159 Undesirable Direct (measured) LDL and calculated LDL are not interchangeable tests. Performed By: #### C DP, LIP, CP, TROPI #### [address] [place], [place] [phone] [employer] Superintendent: Jordon Tai MD Cholesterol.total/Audelia sterol in HDL [Mass ratio] 3.8 {ratio} Normal <5 [facility] Comment on above: Performed By: #### C DP, LIP, CP, TROPI #### [facility] [address] [place] [address] [place] [address] [employer] D[employer] Superintendent: Jordon Tai MD Triglyceride [Mass/Vol] 240 mg/dL High <150 [facility] Comment on above: Result Comment: Triglyceride Guidelines: <150 Desirable 150-199 Borderline 200-499 High >499 Very high Based on AHA Guidelines for fasting triglyceride, April 2012. Performed By: #### C DP, LIP, CP, TROPI #### [facility] [address] [place] [address] [employer] Superintendent: Jordon Tai MD Troponinon 04-29-2023 Troponin, High Sens <6 Normal 0-14 [facility] Comment on above: Result Comment: High Sensitivity Troponin values cannot be compared with other Troponin methodologies. Performed By: #### C DP, LIP, CP, TROPI #### [facility] [address] [place], [place] [phone] [employer] D[employer] Superintendent: Jordon Tai MD CBC with Diffon 04-24-2023 Abs. Basophil 0.04 k/uL Normal 0.00-0.20 [facility] Comment on above: Performed By: #### B MP, CBC #### [address] [place], [place] [address] [employer] Driving Superintendent: Jordon Tai MD Abs.Imm.Granulocyte <0.03 Normal 0.00-0.30 [facility] Comment on above: Performed By: #### B MP, CBC #### [address] [place], [place] [phone] [employer] Driving Superintendent: Jordon Tai MD Abs.Neutrophil (Seg) 3.01 k/uL Normal 1.50-8.10 [facility] Comment on above: Performed By: #### B MP, CBC #### [facility] [address] [place] [address] [place], [place] [phone] [employer] Superintendent: Jordon Tai MD Basophils/100 WBC (Bld) 1 % Normal 0-2 [facility] Comment on above: Performed By: #### B MP, CBC #### [address] [place], [place] [phone] [employer] Superintendent: Jordon Tai MD Eosinophils (Bld) [#/Vol] 0.08 10*3/uL Normal 0.00-0.44 [facility] Comment on above: Performed By: #### B MP, CBC #### [facility] [address] [place] [address] [place], [place] [phone] [employer] Superintendent: Jordon Tai MD Eosinophils/100 WBC (Bld) 1 % Normal 1-4 [facility] Comment on above: Performed By: #### B MP, CBC #### [address] [place], [facility] [employer] D[employer] Superintendent: Jordon Tai MD Erythrocyte distribution width (RBC) [Ratio] 11.8 % Normal 11.8-14.4 [facility] Comment on above: Performed By: #### B MP, CBC #### [address] [place] [address] [employer] Driving Superintendent: Jordon Tai MD Hematocrit (Bld) [Volume fraction] 37.0 % Normal 36.3-47.1 [facility] Comment on above: Performed By: #### B MP, CBC #### [address] [place], [facility]83 [employer] D[employer] Superintendent: Jordon Tai MD Hemoglobin (Bld) [Mass/Vol] 13.1 g/dL Normal 11.9-15.1 [facility] Comment on above: Performed By: #### B MP, CBC #### [address] [place], [facility]83 [employer] D[employer] Superintendent: Jordon Tai MD Immature granulocytes/100 WBC (Bld) 0 % Normal 0 [facility] Comment on above: Performed By: #### B MP, CBC #### [address] [place] [phone] [employer] D[employer] Superintendent: Jordon Tai MD Lymphocytes (Bld) [#/Vol] 2.16 10*3/uL Normal 1.10-3.70 [facility] Comment on above: Performed By: #### B MP, CBC #### [facility] [address] [place], [place] 5999083 [employer] D[employer] Superintendent: Jordon Tai MD Lymphocytes/100 WBC (Bld) 37 % Normal 24-43 [facility] Comment on above: Performed By: #### B MP, CBC #### [facility] [address] [place], [place] 2397083 [employer] Driving Superintendent: Jordon Tai MD MCH (RBC) [Entitic mass] 31.3 pg Normal 25.2-33.5 [facility] Comment on above: Performed By: #### B MP, CBC #### [facility] [address] [place] [address] [employer] Driving Superintendent: Jordon Tai MD MCHC (RBC) [Mass/Vol] 35.4 g/dL High 28.4-34.[address] [facility] Comment on above: Performed By: #### B MP, CBC #### [address] [place], [facility]83 [employer] D[employer] Superintendent: Jordon Tai MD MCV (RBC) [Entitic vol] 88.5 fL Normal 82.6-102.9 [facility] Comment on above: Performed By: #### B MP, CBC #### [address] [place], [place] 4148383 [employer] D[employer] Superintendent: Jordon Tai MD Monocytes (Bld) [#/Vol] 0.46 10*3/uL Normal 0.10-1.20 [facility] Comment on above: Performed By: #### B MP, CBC #### [facility] [address] [place], [place] 4054383 [employer] Driving Superintendent: Jordon Tai MD Monocytes/100 WBC (Bld) 8 % Normal 3-12 [facility] Comment on above: Performed By: #### B MP, CBC #### [facility] [address] [place], [facility]83 [employer] D[employer] Superintendent: Jordon Tai MD Neutrophil (Seg) 52 % Normal 36-65 [facility] Comment on above: Performed By: #### B MP, CBC #### [facility] [address] [place], [place] 1878583 [employer] Driving Superintendent: Jordon Tai MD NRBC Automated 0.0 per 100 WBC Normal 0.0 [facility] Comment on above: Performed By: #### B MP, CBC #### [facility] [address] [place], [place] 5716683 [employer] Driving Superintendent: Jordon Tai MD Platelet Count See Reflexed IPF Result Normal 138-453 [facility] Comment on above: Performed By: #### B MP, CBC #### [facility] [address] [place], [place] 3869383 [employer] Driving Superintendent: Jordon Tai MD Platelet, Fluoresc. 205 k/uL Normal 138-453 [facility] Comment on above: Performed By: #### B MP, CBC #### [facility] [address] [place], [place] 4819783 [employer] Driving Superintendent: Jordon Tai MD PLT, Immature Fract. 10.1 % Normal 1.1-10.3 [facility] Comment on above: Performed By: #### B MP, CBC #### [address] [place], [place] 8668883 [employer] D[employer] Superintendent: Jordon Tai MD RBC (Bld) [#/Vol] 4.18 10*6/uL Normal 3.95-5.11 [facility] Comment on above: Performed By: #### B MP, CBC #### [facility] [address] [place] [address] [employer] Driving Superintendent: Jordon Tai MD WBC (Bld) [#/Vol] 5.8 10*3/uL Normal 3.5-11.3 [facility] Comment on above: Performed By: #### B MP, CBC #### [facility] [address] [place] [address] [employer] Driving Superintendent: Jordon Tai MD CTA HEAD NECK W [...] reasonably achievable. This scan was analyzed using [employer] contact LVO. Identification of suspected findings is [...] Alejandro Keith MD 04/24/23 Final result Normal [facility] Comp Metabolic Pr/rfx MGon 1 0- Albumin [Mass/Vol] 3.9 g/dL Normal 3.5-5.2 [facility] Comment on above: Performed By: #### B MP, CBC #### [facility] [address] [place], [place] 57[address]3 [employer] Driving Superintendent: Jordon Tai MD Albumin/Glob Ratio 1.5 Normal 1.0-2.5 [facility] Comment on above: Performed By: #### B MP, CBC #### [address] [place], [place] 1687383 [employer] Driving Superintendent: Jordon Tai MD Alkaline Phos 101 U/L Normal 35-104 [facility] Comment on above: Performed By: #### B MP, CBC #### [facility] [address] [place] [address] [place], [place] 1025583 [employer] D[employer] Superintendent: Jordon Tai MD ALT [Catalytic activity/Vol] 32 U/L Normal 5-33 [facility] Comment on above: Performed By: #### B MP, CBC #### [address] [place], [place] 4278283 [employer] Driving Superintendent: Jordon Tai MD Anion gap [Moles/Vol] 13 mmol/L Normal 9-[address] [facility] Comment on above: Performed By: #### B MP, CBC #### [facility] [address] [place] [address] [place], [place] 6908083 [employer] D[employer] Superintendent: Jordon Tai MD AST [Catalytic activity/Vol] 23 U/L Normal <32 [facility] Comment on above: Performed By: #### B MP, CBC #### [facility] [address] [place], [place] 5248883 [employer] Driving Superintendent: Jordon Tai MD Bilirubin [Mass/Vol] 0.3 mg/dL Normal 0.3-1.2 [facility] Comment on above: Performed By: #### B MP, CBC #### [facility] [address] [place], [place] 0056783 [employer] Driving Superintendent: Jordon Tai MD BUN/CRE Ratio 9 Normal 9-20 [facility] Comment on above: Performed By: #### B MP, CBC #### [facility] [address] [place], [place] 1048683 [employer] Driving Superintendent: Jordon Tai MD Calcium [Mass/Vol] 9.0 mg/dL Normal 8.6-10.4 [facility] Comment on above: Performed By: #### B MP, CBC #### [facility] [address] [place], [place] 5168783 [employer] Driving Superintendent: Jordon Tai MD Chloride [Moles/Vol] 104 mmol/L Normal 98-107 [facility] Comment on above: Performed By: #### B MP, CBC #### [facility] [address] [place], [place] 0223583 [employer] Driving Superintendent: Jordon Tai MD CO2 [Moles/Vol] 23 mmol/L Normal 20-31 [facility] Comment on above: Performed By: #### B MP, CBC #### [facility] [address] [place] [address] [employer] Driving Superintendent: Jordon Tai MD Creatinine [Mass/Vol] 0.7 mg/dL Normal 0.5-0.[address] [facility] Comment on above: Performed By: #### B MP, CBC #### [facility] [address] [place] [address] [employer] Driving Superintendent: Jordon Tai MD GFR/1.73 sq M.predicted among non-blacks MDRD (S/P/Bld) [Vol rate/Area] mL/min/{1.73_m2} Normal >60 [facility] Comment on above: Result Comment: These [...] Performed By: #### B MP, CBC #### [facility] [address] [place] [address] [place], [place] 2199083 [employer] D[employer] Superintendent: Jordon Tai MD Glucose [Mass/Vol] 108 mg/dL High 70-99 [facility] Comment on above: Performed By: #### B MP, CBC #### [address] [place] 1735283 [employer] Driving Superintendent: Jordon Tai MD Potassium [Moles/Vol] 3.7 mmol/L Normal 3.7-5.[address] [facility] Comment on above: Performed By: #### B MP, CBC #### [address] [place] [address] [employer] Driving Superintendent: Jordon Tai MD Protein [Mass/Vol] 6.5 g/dL Normal 6.4-8.3 [facility] Comment on above: Performed By: #### B RUPAL, CBC #### [address] [place] [address] [employer] Driving Superintendent: Jordon Tai MD Sodium [Moles/Vol] 140 mmol/L Normal 135-144 [facility] Comment on above: Performed By: #### B MP, CBC #### [facility] [address] [place] [address] [place] [address] [employer] Driving Superintendent: Jordon Tai MD Urea nitrogen [Mass/Vol] 6 mg/dL Normal 6-20 [facility] Comment on above: Performed By: #### B MP, CBC #### [address] [place] [address] [employer] Driving Superintendent: Jordon Tai MD Troponinon 04-24-2023 Troponin, High Sens 25 ng/L High 0-14 [facility] Comment on above: Result Comment: High Sensitivity Troponin values cannot be compared with other Troponin methodologies. Performed By: #### B MP, CBC #### [facility] [address] [place], [place] [phone] [employer] Driving Superintendent: Jordon Tai MD Basic Metabolic Profon 04-23 Anion gap [Moles/Vol] 13 mmol/L Normal 9-[address] [facility] Comment on above: Performed By: #### C DP, LIP, CP, TROPI #### [address] [place] [address] [employer] Driving Superintendent: Jordon Tai MD BUN/CRE Ratio 6 Low 9-20 [facility] Comment on above: Performed By: #### C DP, LIP, CP, TROPI #### [facility] [address] [place] [address] [place], [place] 0208983 [employer] D[employer] Superintendent: Jordon Tai MD Calcium [Mass/Vol] 9.4 mg/dL Normal 8.6-10.4 [facility] Comment on above: Performed By: #### C DP, LIP, CP, TROPI #### [address] [place], [place] 6797183 [employer] Driving Superintendent: Jordon Tai MD Chloride [Moles/Vol] 102 mmol/L Normal 98-107 [facility] Comment on above: Performed By: #### C DP, LIP, CP, TROPI #### [facility] [address] [place] [address] [place] [address] P[employer] Driving Superintendent: Jordon Tai MD CO2 [Moles/Vol] 25 mmol/L Normal 20-31 [facility] Comment on above: Performed By: #### C DP, LIP, CP, TROPI #### [facility] [address] [place] [address] [place] [address] [employer] Driving Superintendent: Jordon Tai MD Creatinine [Mass/Vol] 0.7 mg/dL Normal 0.5-0.[address] [facility] Comment on above: Performed By: #### C DP, LIP, CP, TROPI #### [facility] [address] [place] [address] [employer] Driving Superintendent: Jordon Tai MD GFR/1.73 sq M.predicted among non-blacks MDRD (S/P/Bld) [Vol rate/Area] mL/min/{1.73_m2} Normal >60 [facility] Comment on above: Result Comment: These [...] #### C DP, LIP, CP, TROPI #### [facility] [address] [place] [address] Pile Driving Superintendent: Jordon Tai MD Glucose [Mass/Vol] 118 mg/dL High 70-99 [facility] Comment on above: Performed By: #### C DP, LIP, CP, TROPI #### [facility] [address] [place] [address] [employer] Driving Superintendent: Jordon Tai MD Potassium [Moles/Vol] 3.1 mmol/L Low 3.7-5.[address] [facility] Comment on above: Performed By: #### C DP, LIP, CP, TROPI #### [facility] [address] [place] [address] [employer] Driving Superintendent: Jordon Tai MD Sodium [Moles/Vol] 140 mmol/L Normal 135-144 [facility] Comment on above: Performed By: #### C DP, LIP, CP, TROPI #### [facility] [address] [place], [facility]83 [employer] D[employer] Superintendent: Jordon Tai MD Urea nitrogen [Mass/Vol] 4 mg/dL Low 6-20 [facility] Comment on above: Performed By: #### C DP, LIP, CP, TROPI #### [address] [place], [facility] [employer] D[employer] Superintendent: Jordon Tai MD CBC with Diffon 04-23-2023 Abs. Basophil 0.03 k/uL Normal 0.00-0.20 [facility] Comment on above: Performed By: #### C DP, LIP, CP, TROPI #### [address] [place], [place] [address] [employer] Driving Superintendent: Jordon Tai MD Abs.Imm.Granulocyte 0.03 k/uL Normal 0.00-0.30 [facility] Comment on above: Performed By: #### C DP, LIP, CP, TROPI #### [address] [place], [place] [address] [employer] Driving Superintendent: Jordon Tai MD Abs.Neutrophil (Seg) 4.45 k/uL Normal 1.50-8.10 [facility] Comment on above: Performed By: #### C DP, LIP, CP, TROPI #### [address] [place], [place] [address] [employer] Driving Superintendent: Jordon Tai MD Basophils/100 WBC (Bld) 0 % Normal 0-2 [facility] Comment on above: Performed By: #### C DP, LIP, CP, TROPI #### [address] [place], [facility] [employer] D[employer] Superintendent: Jordon Tai MD Eosinophils (Bld) [#/Vol] 0.08 10*3/uL Normal 0.00-0.44 [facility] Comment on above: Performed By: #### C DP, LIP, CP, TROPI #### [address] [place], [facility] [employer] D[employer] Superintendent: Jordon Tai MD Eosinophils/100 WBC (Bld) 1 % Normal 1-4 [facility] Comment on above: Performed By: #### C DP, LIP, CP, TROPI #### [address] [place], [facility] [employer] D[employer] Superintendent: Jordon Tai MD Erythrocyte distribution width (RBC) [Ratio] 11.6 % Low 11.8-14.4 [facility] Comment on above: Performed By: #### C DP, LIP, CP, TROPI #### [address] [place], [place] [address] [employer] Driving Superintendent: Jordon Tai MD Hematocrit (Bld) [Volume fraction] 37.6 % Normal 36.3-47.1 [facility] Comment on above: Performed By: #### C DP, LIP, CP, TROPI #### [address] [place], [place] [address] [employer] Driving Superintendent: Jordon Tai MD Hemoglobin (Bld) [Mass/Vol] 13.5 g/dL Normal 11.9-15.1 [facility] Comment on above: Performed By: #### C DP, LIP, CP, TROPI #### [address] [place], [place] [address] [employer] Driving Superintendent: Jordon Tai MD Immature granulocytes/100 WBC (Bld) 0 % Normal 0 [facility] Comment on above: Performed By: #### C DP, LIP, CP, TROPI #### [address] [place], [facility] [employer] D[employer] Superintendent: Jordon Tai MD Lymphocytes (Bld) [#/Vol] 2.10 10*3/uL Normal 1.10-3.70 [facility] Comment on above: Performed By: #### C DP, LIP, CP, TROPI #### [facility] [address] [place] [address] Pile Driving Superintendent: Jordon Tai MD Lymphocytes/100 WBC (Bld) 29 % Normal 24-43 [facility] Comment on above: Performed By: #### C DP, LIP, CP, TROPI #### [facility] [address] [place], [place] [address] Pile Driving Superintendent: Jordon Tai MD MCH (RBC) [Entitic mass] 31.2 pg Normal 25.2-33.5 [facility] Comment on above: Performed By: #### C DP, LIP, CP, TROPI #### [address] [place] [address] Pile Driving Superintendent: Jordon Tai MD MCHC (RBC) [Mass/Vol] 35.9 g/dL High 28.4-34.[address] [facility] Comment on above: Performed By: #### C DP, LIP, CP, TROPI #### [address] [place], [facility]18 ( Pile Driving Superintendent: Jordon Tai MD MCV (RBC) [Entitic vol] 86.8 fL Normal 82.6-102.9 [facility] Comment on above: Performed By: #### C DP, LIP, CP, TROPI #### [address] [place], [place] [address] Pile Driving Superintendent: Jordon Tai MD Monocytes (Bld) [#/Vol] 0.57 10*3/uL Normal 0.10-1.20 [facility] Comment on above: Performed By: #### C DP, LIP, CP, TROPI #### [address] [place], [place] [id number] Pile Driving Superintendent: Jordon Tai MD Monocytes/100 WBC (Bld) 8 % Normal 3-12 [facility] Comment on above: Performed By: #### C DP, LIP, CP, TROPI #### [facility] [address] [place] [address] Pile Driving Superintendent: Jordon Tai MD Neutrophil (Seg) 62 % Normal 36-65 [facility] Comment on above: Performed By: #### C DP, LIP, CP, TROPI #### [facility] [address] [place], [place] [address] Pile Driving Superintendent: Jordon Tai MD NRBC Automated 0.0 per 100 WBC Normal 0.0 [facility] Comment on above: Performed By: #### C DP, LIP, CP, TROPI #### [address] [place], [facility]83 Pile Driving Superintendent: Jordon Tai MD Platelet mean volume (Bld) [Entitic vol] 9.9 fL Normal 8.1-13.5 [facility] Comment on above: Performed By: #### C DP, LIP, CP, TROPI #### [address] [place], [place] [address] Pile Driving Superintendent: Jordon Tai MD Platelets (Bld) [#/Vol] 284 10*3/uL Normal 138-453 [facility] Comment on above: Performed By: #### C DP, LIP, CP, TROPI #### [address] [place], [place] [address] Pile Driving Superintendent: Jordon Tai MD RBC (Bld) [#/Vol] 4.33 10*6/uL Normal 3.95-5.11 [facility] Comment on above: Performed By: #### C DP, LIP, CP, TROPI #### [address] [place], [place] [id number] Pile Driving Superintendent: Jordno Tai MD WBC (Bld) [#/Vol] 7.3 10*3/uL Normal 3.5-11.3 [facility] Comment on above: Performed By: #### C DP, LIP, CP, TROPI #### [facility] [address] [place] [address] Pile Driving Superintendent: Jordon Tai MD CT HEAD WO CONTRASTon [...] Reggie Rivera MD 04/23/23 Final result Normal [facility] Troponinon 04-23-2023 Troponin, High Sens <6 Normal 0-14 [facility] Comment on above: Result Comment: High Sensitivity Troponin values cannot be compared with other Troponin methodologies. Performed By: #### C DP, LIP, CP, TROPI #### [facility] [address] [place] [address] Pile Driving Superintendent: Jordon Tai MD Troponin, High Sens <6 Normal 0-14 [facility] Comment on above: Result Comment: High Sensitivity Troponin values cannot be compared with other Troponin methodologies. Performed By: #### C DP, LIP, CP, TROPI #### [facility] [address] [place] [address] Pile Driving Superintendent: Jordon Tai MD XR CHEST PORTABLEon 04-23-20 [...] Leonides Fernandez MD 04/23/23 Final result Normal [facility] C Fungalon 04-06-2023 C Fungal ---- Final No growth at 4 weeks. Normal [facility] Comment on above: Performed By: #### F C #### [facility] [address] [place] [id number] C ANAon 03-12-2023 C MANDY ---- Final No anaerobic growth after 72 hrs. Normal [facility] Comment on above: Performed By: #### A NAC #### [facility] [address] [place] [address] C Woundon 03-10-2023 C Wound add gram stain Final Rare Normal skin ariane isolated Gram Stain Rare White Blood Cells No organisms seen. Normal [facility] Comment on above: Performed By: #### W DC #### [facility] (DEFAULT) [address] [place] [address] [facility] [address] [place] [address] No Panel Informationon 03-05 1. No acute osseous abnormality of the left wrist or the left hand. 2. No retained radiopaque foreign body. [facility] EXAMINATION: THREE XRAY VIEWS OF THE [...] of erosion. No retained radiopaque foreign body. [facility] Jordon Cesar MD - 03/05/2023 EXAMINATION: [...] hand. 2. No retained radiopaque foreign body. [facility] No Panel InformationOrdered By: Jordon Cesar on 03-05-2023 [facility] Work Phone: XR HAND LEFT (MIN 3 VIEWS)on 03-05-2023 Radiology Study observation (narrative) K[facility]TIS BOYER [facility] XR WRIST LEFT (MIN 3 VIEWS)o n 03-05-2023 Radiology Study observation (narrative) KURTIS SALMON CBC with Auto Differentialon 02-22-2023 Basophils (Bld) [#/Vol] 0.04 10*3/uL [facility] Basophils/100 WBC (Bld) 1 % 0 - 2 % [facility] Eosinophils (Bld) [#/Vol] 0.08 10*3/uL [facility] Eosinophils/100 WBC (Bld) 1 % 1 - 4 % [facility] Erythrocyte distribution width (RBC) [Ratio] 11.9 % 11.8 - 14.4 % [facility] Hematocrit (Bld) [Volume fraction] 34.6 % Low 36.3 - 47.1 % [facility] Hemoglobin (Bld) [Mass/Vol] 12.1 g/dL 11.9 - 15.1 g/dL [facility] Immature granulocytes (Bld) [#/Vol] [facility] Immature granulocytes/100 WBC (Bld) 0 % 0 [facility] Interpretation and review of laboratory results Abnormal [facility] Lymphocytes/100 WBC (Bld) 30 % 24 - 43 % [facility] Lymphocytes/100 WBC (Bld) 1.84 % [facility] MCH (RBC) [Entitic mass] 31.1 pg 25.2 - 33.5 pg [facility] MCHC (RBC) [Mass/Vol] 35.0 g/dL High 28.4 - 34.8 g/dL [facility] MCV (RBC) [Entitic vol] 88.9 fL 82.6 - 102.9 fL [facility] Monocytes/100 WBC (Bld) 7 % 3 - 12 % [facility] Monocytes/100 WBC (Bld) 0.45 % [facility] Neutrophils/100 WBC (Bld) 61 % 36 - 65 % [facility] Nucleated RBC/100 WBC (Bld) [Ratio] 0.0 % 0.0 per 100 WBC [facility] Platelet mean volume (Bld) [Entitic vol] 9.4 fL 8.1 - 13.5 fL [facility] Platelets (Bld) [#/Vol] 254 10*3/uL [facility] RBC (Bld) [#/Vol] 3.89 10*6/uL Low 3.95 - 5.11 m/uL [facility] Segmented neutrophils/100 WBC (Bld) 3.62 % [facility] WBC other (Bld) [#/Vol] 6.[address] [facility] CT ABDOMEN PELVIS W IV CONTR AST Additional Contrast? Noneon 02-22-2023 No acute abnormality in the abdomen or pelvis. [facility] EXAMINATION: CT OF THE ABDOMEN AND [...] pelvis 08/05/2021. HISTORY: ORDERING SYSTEM PROVIDED HISTORY: [facility] pain TECHNOLOGIST PROVIDED HISTORY: [facility] pain Decision Support Exception - unselect [...] No acute osseous or soft tissue abnormality. [facility] Hiro Reza MD - 02/22/2023 EXAMINATION: [...] acute abnormality in the abdomen or pelvis. [facility] Radiology Study observation (narrative) [facility] CT ABDOMEN PELVIS W IV CONTR AST Additional Contrast? NoneOrdered By: Hiro Reza on 02-22-2023 [facility] Work Phone: Comprehensive Metabolic Pane misti 02-22-2023 Albumin [Mass/Vol] 4.4 g/dL 3.5 - 5.2 g/dL [facility] Albumin/Globulin [Mass ratio] 1.5 {ratio} 1.0 - 2.5 [facility] ALP [Catalytic activity/Vol] 95 U/L 35 - 104 U/L [facility] ALT [Catalytic activity/Vol] 23 U/L 5 - 33 U/L [facility] Anion gap [Moles/Vol] 12 mmol/L 9 - 17 mmol/L [facility] AST [Catalytic activity/Vol] 24 U/L NINF - 32 U/L [facility] Bilirubin [Mass/Vol] 0.6 mg/dL 0.3 - 1 .2 mg/dL [facility] Calcium [Mass/Vol] 9.2 mg/dL 8.6 - 10. 4 mg/dL [facility] Chloride [Moles/Vol] 103 mmol/L 98 - 10 7 mmol/L [facility] CO2 [Moles/Vol] 25 mmol/L 20 - 31 mmol/L [facility] Creatinine [Mass/Vol] 0.7 mg/dL 0.5 - 0.9 mg/dL [facility] GFR/1.73 sq M.predicted MDRD (S/P/Bld) [Vol rate/Area] - PINF [facility] Comment on above: These results are not [...] 101 mg/dL High 70 - 99 mg/dL [facility] Interpretation and review of laboratory results Abnormal [facility] Potassium [Moles/Vol] 3.3 mmol/L Low 3.7 - 5.3 mmol/L [facility] Protein [Mass/Vol] 7.3 g/dL 6.4 - 8.3 g/dL [facility] Sodium [Moles/Vol] 140 mmol/L 135 - 144 mmol/L [facility] Urea nitrogen [Mass/Vol] 9 mg/dL 6 - 20 mg/dL [facility] Urea nitrogen/Creatinine [Mass ratio] 13 mg/mg 9 - [address] [facility] Lactic Acidon 02-22-2023 Lactate (BldV) [Moles/Vol] 1.5 mmol/L 0.5 - 2.2 mmol/L [facility] Urinalysis with Microscopico n 02-22-2023 Bacteria LM Ql (Urine sed) TRACE Abnormal None [facility] Bilirubin Ql (U) Negative NEGATIVE [facility] Clarity (U) Clear Clear [facility] Color (U) Yellow Yellow [facility] Epithelial cells LM.HPF (Urine sed) [#/Area] 0 TO 2 [facility] Glucose Test strip (U) [Mass/Vol] Negative NEGATIVE mg/dL [facility] Hemoglobin Auto test strip Ql (U) Negative NEGATIVE [facility] Interpretation and review of laboratory results Abnormal [facility] Ketones (U) [Mass/Vol] Negative NEGAT [place] mg/dL [facility] Leukocyte esterase Test strip Ql (U) Negative NEGATIVE [facility] Nitrite Ql (U) Negative NEGATIVE [facility] pH (U) 6.5 [pH] 5.0 - 9.0 [facility] Protein (U) [Mass/Vol] Negative NEGAT [place] mg/dL [facility] RBC LM.HPF (Urine sed) [#/Area] None [facility] Specific gravity (U) [Rel density] Low 1.010 - 1.020 [facility] Urobilinogen Qn (U) Normal 0.0 - 1. 0 EU/dL [facility] WBC LM.HPF (Urine sed) [#/Area] None [facility] XR KNEE RIGHT (1-2 VIEWS)on 12-21-2022 No acute abnormality right knee. [facility] EXAMINATION: TWO XRAY VIEWS OF THE RIGHT KNEE 12/21/2022 11:35 am COMPARISON: Previous three-view study of the right knee from 05/01/2022 HISTORY: ORDERING SYSTEM PROVIDED HISTORY: Twisted TECHNOLOGIST PROVIDED HISTORY: Twisted FINDINGS: No fracture. No dislocation. No joint effusion. Mild unchanged degenerative findings. No destructive or blastic lesion. [facility] Jarred Kruse MD - 12/21/2022 EXAMINATION: TWO XRAY VIEWS OF THE RIGHT KNEE 12/21/2022 11:35 am COMPARISON: Previous three-view study of the right knee from 05/01/2022 HISTORY: ORDERING SYSTEM PROVIDED HISTORY: Twisted TECHNOLOGIST PROVIDED HISTORY: Twisted FINDINGS: No fracture. No dislocation. No joint effusion. Mild unchanged degenerative findings. No destructive or blastic lesion. IMPRESSION: No acute abnormality right knee. [employer] Phone: Radiology Study observation (narrative) [employer] Phone: XR KNEE RIGHT (1-2 VIEWS)Ord ered By: Jarred Kruse on 12-21-2022 [employer] Phone: XR SHOULDER LEFT (MIN 2 VIEW S)on 12-21-2022 No acute abnormality . [facility] EXAMINATION: 3 XRAY VIEWS OF THE [...] Cardiac stent and loop recorder again noted. [facility] Jarred Kruse MD - 12/21/2022 EXAMINATION: [...] recorder again noted. IMPRESSION: No acute abnormality. [employer] Phone: [employer] Phone: Radiology Study observation (narrative) [employer] Phone: XR WRIST LEFT (MIN 3 VIEWS)o n 06-05-2023 Unchanged wrist radiographs without acute abnormality. [facility] EXAMINATION: 3 XRAY VIEWS OF THE LEFT WRIST 12/21/2022 11:35 am COMPARISON: Previous three-view study of the left wrist from 2018 HISTORY: ORDERING SYSTEM PROVIDED HISTORY: Fall onto TECHNOLOGIST PROVIDED HISTORY: Fall onto FINDINGS: Carpal bones and alignment are maintained. Distal radius and ulna are intact. No acute fracture or dislocation. Slight degenerative change carpal 1st metacarpal joint space. [facility] Jarred Kruse MD - 12/21/2022 EXAMINATION: [...] IMPRESSION: Unchanged wrist radiographs without acute abnormality. [employer] Phone: [employer] Phone: Radiology Study observation (narrative) [employer] Phone: ECHO Complete 2D W Doppler W Coloron 11-18-2022 [facility] Transthoracic Echocardiography Report (TTE) Patient Name ADRIÁN Date of Study 11/18/2022 MIKE N Date of 1975 Gender Female Age 46 year(s) Race Room Number Height: 64 inch, 162.56 cm Corporate ID [id number] Weight: 200 pounds, 90.7 kg # Patient Acct [id number] BSA: 1.96 m^2 BMI: 34.33 # kg/m^2 MR # [id number] [employer] Range Back Tender Work,Spe[employer]arm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 Procedure Date Date: 11/18/2022 Start: 01:26 PM Study Location: [facility] Indications:Chest pain. History / Tech. Comments: [...] TR Velocity: 1.89 m/s Peak TR Gradient: 14.71137 mmHg Diastology / Tissue Doppler Lateral Wall E' velocity:0.12 m/s Lateral Wall E/E':4.5 MHPN T [facility] Ronan Rodriguez MD - 11/18/2022 [facility] Transthoracic Echocardiography Report (TTE) Patient Name ADRIÁN Date of Study 11/18/2022 MIKE N Date of 1975 Gender Female Age 46 year(s) Race Room Number Height: 64 inch, 162.56 cm Corporate ID [id number] Weight: 200 pounds, 90.7 kg # Patient Acct [id number] BSA: 1.96 m^2 BMI: 34.33 # kg/m^2 MR # [id number] [employer] Range Back Tender [place]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 Procedure Date Date: 11/18/2022 Start: 01:26 PM Study Location: [facility] Indications:Chest pain. History / Tech. Comments: [...] TR Velocity: 1.89 m/s Peak TR Gradient: 14.11244 mmHg Diastology / Tissue Doppler Lateral Wall E' velocity:0.12 m/s Lateral Wall E/E':4.5 [employer] Work Phone: [employer] Work Phone: Basic Metabolic Panelon 02-0 Anion gap [Moles/Vol] 14 mmol/L 9 - 17 mmol/L [employer] Calcium [Mass/Vol] 9.3 mg/dL 8.6 - 10. 4 mg/dL [employer] Chloride [Moles/Vol] 100 mmol/L 98 - 10 7 mmol/L [employer] CO2 [Moles/Vol] 24 mmol/L 20 - 31 mmol/L [employer] Creatinine [Mass/Vol] 0.71 mg/dL 0.50 - 0.90 mg/dL [employer] GFR/1.73 sq M.predicted MDRD (S/P/Bld) [Vol rate/Area] - PINF [employer] Comment on above: These results are not [...] 127 mg/dL High 70 - 99 mg/dL [facility] I and love and you Interpretation and review of laboratory results Abnormal [employer] Potassium [Moles/Vol] 3.5 mmol/L Low 3.7 - 5.3 mmol/L [facility] Sodium [Moles/Vol] 138 mmol/L 135 - 144 mmol/L [employer] Urea nitrogen [Mass/Vol] 7 mg/dL 6 - 20 mg/dL [facility] Urea nitrogen/Creatinine (Bld) [Mass ratio] 10 9 - [address] [facility] Basic to Comprehensive Upgra leslie 08-20-2022 Albumin [Mass/Vol] 4.3 g/dL 3.5 - 5.2 g/dL [facility] Albumin/Globulin [Mass ratio] 1.5 {ratio} 1.0 - 2.5 [facility] ALP [Catalytic activity/Vol] 90 U/L 35 - 104 U/L [facility] ALT [Catalytic activity/Vol] 66 U/L High 5 - 33 U/L [facility] AST [Catalytic activity/Vol] 52 U/L High NINF - 32 U/L [facility] Bilirubin [Mass/Vol] 0.3 mg/dL 0.3 - 1 .2 mg/dL [facility] Interpretation and review of laboratory results Abnormal [facility] Protein [Mass/Vol] 7.1 g/dL 6.4 - 8.3 g/dL [facility] CBC with Auto Differentialon 08-20-2022 Absolute Eos # 0.09 [place] [facility] Absolute Immature Granulocyte [facility] Absolute Lymph # 2.66 [facility] Absolute [place] # 0.47 [facility] RS [facility] Basophils (Bld) [#/Vol] 0.06 10*3/uL [facility] Basophils/100 WBC (Bld) 1 % 0 - 2 % B [facility] Eosinophils/100 WBC (Bld) 1 % 1 - 4 % [facility] Hematocrit (Bld) [Volume fraction] 35.8 % Low 36.3 - 47.1 % [facility] Hemoglobin (Bld) [Mass/Vol] 12.8 g/dL 11.9 - 15.1 g/dL [facility] Immature granulocytes/100 WBC (Bld) 0 % 0 [facility] Interpretation and review of laboratory results Abnormal [facility] Lymphocytes/100 WBC (Bld) 35 % 24 - 43 % [facility] MCH (RBC) [Entitic mass] 32.0 pg 25.2 - 33.5 pg [facility] MCHC (RBC) [Mass/Vol] 35.8 g/dL High 28.4 - 34.8 g/dL [facility] MCV (RBC) [Entitic vol] 89.5 fL 82.6 - 102.9 fL [facility] Monocytes/100 WBC (Bld) 6 % 3 - 12 % [facility] NRBC Automated 0.0 0.0 per 100 WBC [facility] Platelet distribution width (Bld) [Ratio] 11.9 % 11.8 - 14.4 % [facility] Platelet mean volume (Bld) [Entitic vol] 9.7 fL 8.1 - 13.5 fL [facility] Platelets (Bld) [#/Vol] 297 10*3/uL [facility] RBC (Bld) [#/Vol] 4.00 10*6/uL 3.95 - 5.11 m/uL [facility] Segmented neutrophils/100 WBC (Bld) 57 % 36 - 65 % [facility] Segs Absolute 4.36 [facility] WBC (Bld) [#/Vol] 7.7 10*3/uL [facility] Catheterization and angiogra phy procedure details panelon 08-20-2022 Cardiac Diagnostic Report Demographics Patient ADRIÁN Bee Date of Study 08/20/2022 Name Date of 1975 Gender Female Age 46 year(s) Race Room [id number]^DELONTE Height: 64 inch, 162.56 cm Number Corporate [id number] Weight: 194 pounds, 87.9 kg ID # Patient [id number] BSA: 1.93 m^2 BMI: 33.26 Acct # kg/m^2 MR # [id number] Performing Physician MichaelRonan Referring Physician # Assisting [...] Right coronary angiography. Contrast Material: - Isovue 78694 ml Fluoroscopy Time: Diagnostic: 4:06 minutes. Total: [...] assessed as CCS IV according to the [place]i clinical classification (more content not included)... [facility] Ronan Rodriguez MD - 08/20/2022 Cardiac Diagnostic Report Demographics Patient ADRIÁN Bee Date of Study 08/20/2022 Name Date of 1975 Gender Female Age 46 year(s) Race Room [id number]^MICHAEL^RONAN Height: 64 inch, 162.56 cm Number Corporate [id number] Weight: 194 pounds, 87.9 kg ID # Patient [id number] BSA: 1.93 m^2 BMI: 33.26 Acct # kg/m^2 MR # [id number] Performing Physician Ronan Rodriguez Referring Physician # [...] Right coronary angiography. Contrast Material: - Isovue 80654 ml Fluoroscopy Time: Diagnostic: 4:06 minutes. Total: [...] assessed as CCS IV according to the Omani clinical classification. Hemodynamics Condition: Baseline Room Air Estimated: 186.28Heart Rate: 63 bpm Pressure +-----+ --- + !Site !Pressure ! +-----+ --- + !AO !106/59 (80) ! +-----+ --- + !LV !106/0 ,11 ! +-----+ (more content not included)... [employer] Work Phone: [employer] Work Phone: Catheterization and angiogra phy procedure details panelOrdered By: Unknown Result on 08-20-2022 [employer] Troponinon 08-20-2022 Troponin I.cardiac DL <= 0.01 ng/mL [Mass/Vol] ng/L 0 - 14 ng/L [employer] Comment on above: High Sensitivity Tro ponin values cannot be compared with other Troponin methodologies. [employer] Troponin I.cardiac DL <= 0.01 ng/mL [Mass/Vol] ng/L 0 - 14 ng/L [employer] Comment on above: High Sensitivity Tro ponin values cannot be compared with other Troponin methodologies. [employer] XR CHEST PORTABLEon 08-20-19 No acute process. [facility] EXAMINATION: ONE XRAY VIEW OF THE CHEST 08/20/2022 12:50 pm COMPARISON: 10/19/2021 HISTORY: ORDERING SYSTEM PROVIDED HISTORY: chest pain TECHNOLOGIST PROVIDED HISTORY: chest pain FINDINGS: Loop recorder in place. The lungs are without acute focal process. There is no effusion or pneumothorax. The cardiomediastinal silhouette is stable. The osseous structures are stable. [facility] Janae Espinoza MD - 08/20/2022 EXAMINATION: ONE XRAY VIEW OF THE CHEST 08/20/2022 12:50 pm COMPARISON: 10/19/2021 HISTORY: ORDERING SYSTEM PROVIDED HISTORY: chest pain TECHNOLOGIST PROVIDED HISTORY: chest pain FINDINGS: Loop recorder in place. The lungs are without acute focal process. There is no effusion or pneumothorax. The cardiomediastinal silhouette is stable. The osseous structures are stable. IMPRESSION: No acute process. [employer] Work Phone: Radiology Study observation (narrative) [facility] OCASIO [facility] [employer] Work Phone: XR CHEST PORTABLEOrdered By: Janae Espinoza on 08-20-2022 KURTIS MEJIA [facility] Work Phone: CBC with Auto Differentialon 07-28-2022 Absolute Eos # 0.10 [place] [facility] Absolute Immature Granulocyte 0.05 [facility] Absolute Lymph # 1.91 KURTIS OLSENO AMARJIT [facility] Absolute [place] # 0.49 [facility] RS [facility] Basophils (Bld) [#/Vol] 0.04 10*3/uL [facility] Basophils/100 WBC (Bld) 1 % 0 - 2 % [facility] Eosinophils/100 WBC (Bld) 2 % 1 - 4 % [facility] Hematocrit (Bld) [Volume fraction] 34.6 % Low 36.3 - 47.1 % [facility] Hemoglobin (Bld) [Mass/Vol] 12.3 g/dL 11.9 - 15.1 g/dL [facility] Immature granulocytes/100 WBC (Bld) 1 % High 0 [facility] Interpretation and review of laboratory results Abnormal [facility] Lymphocytes/100 WBC (Bld) 29 % 24 - 43 % [facility] MCH (RBC) [Entitic mass] 31.5 pg 25.2 - 33.5 pg [facility] MCHC (RBC) [Mass/Vol] 35.5 g/dL High 28.4 - 34.8 g/dL [facility] MCV (RBC) [Entitic vol] 88.7 fL 82.6 - 102.9 fL [facility] Monocytes/100 WBC (Bld) 8 % 3 - 12 % B ON [facility] [facility] NRBC Automated 0.0 0.0 per 100 WBC [facility] Platelet distribution width (Bld) [Ratio] 11.9 % 11.8 - 14.4 % [facility] Platelet mean volume (Bld) [Entitic vol] 9.6 fL 8.1 - 13.5 fL [facility] Platelets (Bld) [#/Vol] 291 10*3/uL [facility] RBC (Bld) [#/Vol] 3.90 10*6/uL Low 3.95 - 5.11 m/uL [facility] Segmented neutrophils/100 WBC (Bld) 59 % 36 - 65 % [facility] Segs Absolute 3.92 [facility] WBC (Bld) [#/Vol] 6.5 10*3/uL [facility] CMPon 07-28-2022 Albumin [Mass/Vol] 4.1 g/dL 3.5 - 5.2 g/dL [facility] Albumin/Globulin [Mass ratio] 1.6 {ratio} 1.0 - 2.5 [facility] ALP (Bld) [Catalytic activity/Vol] 95 U/L 35 - 104 U/L [facility] ALT [Catalytic activity/Vol] 86 U/L High 5 - 33 U/L [facility] Anion gap [Moles/Vol] 9 mmol/L 9 - 17 mmol/L [facility] AST [Catalytic activity/Vol] 49 U/L High NINF - 32 U/L [facility] Bilirubin [Mass/Vol] 0.5 mg/dL 0.3 - 1 .2 mg/dL [facility] Calcium [Mass/Vol] 9.4 mg/dL 8.6 - 10. 4 mg/dL [facility] Chloride [Moles/Vol] 103 mmol/L 98 - 10 7 mmol/L [facility] CO2 [Moles/Vol] 27 mmol/L 20 - 31 mmol/L [facility] Creatinine [Mass/Vol] 0.63 mg/dL 0.50 - 0.90 mg/dL [facility] GFR/1.73 sq M.predicted MDRD (S/P/Bld) [Vol rate/Area] - PINF [facility] Comment on above: Effective Apr 20, 2022 [...] 105 mg/dL High 70 - 99 mg/dL [facility] I and love and you Interpretation and review of laboratory results Abnormal [facility] I and love and you Potassium [Moles/Vol] 3.7 mmol/L 3.7 - 5.3 mmol/L [facility] I and love and you Protein [Mass/Vol] 6.7 g/dL 6.4 - 8.3 g/dL [facility] I and love and you Sodium [Moles/Vol] 139 mmol/L 135 - 144 mmol/L [facility] Urea nitrogen (BldV) [Mass/Vol] 9 mg/dL 6 - 20 mg/dL [facility] I and love and you Urea nitrogen/Creatinine (Bld) [Mass ratio] 14 9 - 20 [facility] I and love and you CT ABDOMEN PELVIS W IV CONTR AST Additional Contrast? Noneon 07-28-2022 No acute process identified. Status post cholecystectomy and hysterectomy. Degenerative and postoperative changes noted in the lower lumbar spine. [facility] RIS CONSOLIDATED EXAMINATION: CT OF THE ABDOMEN [...] are noted bilaterally at L5 and S1. [facility] Jose Hadley MD - 07/28/2022 EXAMINATION: CT [...] changes noted in the lower lumbar spine. [employer] Phone: Radiology Study observation (narrative) [employer] Phone: CT ABDOMEN PELVIS W IV CONTR AST Additional Contrast? NoneOrdered By: Jose Jo on 07-28-2022 [employer] Phone: Lactic Acidon 07-28-2022 Lactate [Moles/Vol] 1.3 mmol/L 0.5 - 2. 2 mmol/L [employer] Lipaseon 07-28-2022 Lipase [Catalytic activity/Vol] 30 U/L 13 - 60 U/L [employer] Microscopic Urinalysison Bacteria, UA 2+ Abnormal None [facility] Epithelial Cells UA 2 TO 5 [facility] Interpretation and review of laboratory results Abnormal [facility] Mucus, UA 1+ Abnormal None [facility] RBC, UA 0 TO 2 [facility] WBC, UA 0 TO 2 [facility] No Panel Informationon 07-28 [facility] Urinalysis with Reflex to Cu ltureon 07-28-2022 Bilirubin Urine Negative NEGATIVE [facility] Color, UA Yellow Yellow [facility] Glucose, Ur Negative NEGATIVE [facility] Interpretation and review of laboratory results Abnormal [facility] Ketones Ql (U) Negative NEGATIVE [facility] Leukocyte esterase Test strip Ql (U) Negative NEGATIVE [facility] Nitrite, Urine Negative NEGATIVE [facility] pH, UA 6.0 5.0 - 9.0 [facility] Protein, UA Negative NEGATIVE [facility] Specific Ramona, UA High 1.010 - 1.020 [facility] Turbidity UA Clear Clear [facility] Urine Hgb Negative NEGATIVE [facility] Urobilinogen, Urine Normal Normal [facility] MRI CERVICAL SPINE WO YAYAA STorohit 05-08-2022 Multilevel degenerat farshad disc disease with uncovertebral and facet hypertrophy resulting in canal stenosis throughout the mid cervical spine. Bilateral foraminal narrowing as described above. [facility] RIS CONSOLIDATED EXAMINATION: MRI OF THE CERVICAL [...] spinal canal stenosis or neural foraminal narrowing. [facility] Efren Zepeda MD - 05/08/2022 [...] spine. Bilateral foraminal narrowing as described above. [employer] Phone: MRI CERVICAL SPINE WO CONTRA STOrdered By: Efren Zepeda on 05-08-2022 [employer] Phone: MRI CERVICAL SPINE WO CONTRA STon 05-07-2022 Radiology Study observation (narrative) [employer] Phone: CT CERVICAL SPINE WO CONTRAS Ton 05-01-2022 [id number]-fm-yzxbydji multilevel cervical degenerative disc disease. No acute fracture or subluxation. Straightening of the normal cervical lordosis which may be related to muscle spasm or position in collar. [facility] RIS CONSOLIDATED EXAMINATION: CT OF THE CERVICAL [...] of the normal cervical lordosis. DEGENERATIVE CHANGES: Knyj-cc-oswfolgz multilevel cervical degenerative disc disease which is most pronounced at C6-C7. No significant uncovertebral joint hypertrophic change or bony neural foraminal narrowing. SOFT TISSUES: No paraspinal soft tissue abnormality. The visualized lung apices are grossly clear. [facility] RIS Jose Buchanan MD - 05/01/2022 EXAMINATION: [...] of the normal cervical lordosis. DEGENERATIVE CHANGES: [id number] multilevel cervical degenerative disc disease which is most pronounced at C6-C7. No significant uncovertebral joint hypertrophic change or bony neural foraminal narrowing. SOFT TISSUES: No paraspinal soft tissue abnormality. The visualized lung apices are grossly clear. IMPRESSION: Tfeo-od-dcujjeto multilevel cervical degenerative disc disease. No acute fracture or subluxation. Straightening of the normal cervical lordosis which may be related to muscle spasm or position in collar. [employer] Phone: [employer] Phone: Radiology Study observation (narrative) [facility] [employer] Phone: CT Head WO Contraston 2021 Unremarkable noncont rast head CT study. [facility] CONSOLIDATED EXAMINATION: CT OF THE HEAD WITHOUT [...] tissues. No acute fracture. No scalp hematoma. [facility] CONSOLID[facility] Jose Francois MD - 05/01/2022 EXAMINATION: [...] hematoma. IMPRESSION: Unremarkable noncontrast head CT study. [employer] Phone: Radiology Study observation (narrative) [employer] Phone: CT Head WO ContrastOrdered B y: Jose Francois on 05-01-2022 [employer] Phone: CT LUMBAR SPINE WO CONTRASTo n 05-01-2022 No fracture. At L1-L2, right foraminal/extraforaminal disc protrusion impinges on right L1 nerve root and moderate right neural foraminal narrowing Changes related to instrumented posterior fusion at L5-S1. Changes related to instrumented disc space fusion at L3-L4 and L4-L5 and L5-S1. 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 RECOMMENDATIONS: Unavailable [facility] RIS CONSOLIDATED EXAMINATION: CT OF THE LUMBAR [...] SOFT TISSUES/RETROPERITONEUM: No paraspinal mass is seen. [facility] Teresa Johnson MD - 05/01/2022 EXAMINATION: CT [...] prior instrumented fusion at L3-L4. RECOMMENDATIONS: Unavailable [employer] Phone: Radiology Study observation (narrative) [employer] Phone: CT LUMBAR SPINE WO CONTRASTO rdered By: Teresa Herzog on 05-01-2022 [employer] Phone: CT THORACIC SPINE WO CONTRAS Ton 05-01-[address] acic degenerative disc disease. No acute fracture or subluxation. [facility] CONSOLIDATED EXAMINATION: CT OF THE THORACIC SPINE [...] SOFT TISSUES: No paraspinal soft tissue abnormality. [facility] CONSOL[facility] Jose Francois MD - 05/01/2022 EXAMINATION: [...] disc disease. No acute fracture or subluxation. [employer] Phone: [employer] Phone: Radiology Study observation (narrative) [employer] Phone: No Panel Informationon 05-01 Radiology Study observation (narrative) [employer] Phone: Radiology Study observation (narrative) [employer] Phone: Radiology Study observation (narrative) [employer] Phone: XR ANKLE RIGHT (MIN 3 VIEWS) on 05-01-2022 No acute findings in the right ankle. [facility] CONSOLID[facility] EXAM: XR Right Ankle Complete, 3 or More Views EXAM DATE/TIME: 05/01/2022 7:21 pm CLINICAL HISTORY: ORDERING SYSTEM PROVIDED fall TECHNOLOGIST PROVIDED HISTORY: fall TECHNIQUE: Frontal, lateral and oblique views of the right ankle. COMPARISON: 01/29/2021 FINDINGS: Bones/joints: No acute findings. No acute fracture. No dislocation. Soft tissues: No acute findings. [facility] CONSOL[facility] Hector Odonnell MD - 05/01/2022 EXAM: [...] No acute findings in the right ankle. [employer] Phone: [employer] Phone: XR ELBOW RIGHT (MIN 3 VIEWS) on 05-01-2022 No acute findings in the right elbow. [facility] EXAM: XR Right Elbow Complete, 3 or More Views EXAM DATE/TIME: 05/01/2022 7:21 pm CLINICAL HISTORY: ORDERING SYSTEM PROVIDED Fall TECHNOLOGIST PROVIDED HISTORY: Fall TECHNIQUE: Frontal, lateral and oblique views of the right elbow. COMPARISON: No relevant prior studies available. FINDINGS: Bones/joints: No acute findings. No acute fracture. No dislocation. Soft tissues: No acute findings. [facility] Hector Odonnell MD - 05/01/2022 EXAM: [...] No acute findings in the right elbow. [employer] Phone: XR ELBOW RIGHT (MIN 3 VIEWS) Ordered By: Hector Odonnell on 05-01-2022 [employer] Phone: XR FOOT RIGHT (MIN 3 VIEWS)o n 05-01-2022 No acute findings in the right foot. [facility] EXAM: XR Right Foot Complete, 3 or More Views EXAM DATE/TIME: 05/01/2022 7:21 pm CLINICAL HISTORY: ORDERING SYSTEM PROVIDED fall TECHNOLOGIST PROVIDED HISTORY: fall TECHNIQUE: Frontal, lateral and oblique views of the right foot. COMPARISON: 01/21/2022 FINDINGS: Bones/joints: No acute findings. No acute fracture. No dislocation. Soft tissues: No acute findings. No radiopaque foreign body. [facility] Hector Odonnell MD - 05/01/2022 EXAM: [...] No acute findings in the right foot. [employer] Phone: [employer] Phone: XR KNEE RIGHT (3 VIEWS)on No acute findings in the right knee. [facility] EXAM: XR Right Knee, 3 Views EXAM DATE/TIME: 05/01/2022 7:21 pm CLINICAL HISTORY: ORDERING SYSTEM PROVIDED fall TECHNOLOGIST PROVIDED HISTORY: fall TECHNIQUE: Three views of the right knee. COMPARISON: 01/27/2008 FINDINGS: Bones/joints: No acute findings. No acute fracture. No dislocation. Soft tissues: No acute findings. [facility] Hector Odonnell MD - 05/01/2022 EXAM: XR Right Knee, 3 Views EXAM DATE/TIME: 05/01/2022 7:21 pm CLINICAL HISTORY: ORDERING SYSTEM PROVIDED fall TECHNOLOGIST PROVIDED HISTORY: fall TECHNIQUE: Three views of the right knee. COMPARISON: 01/27/2008 FINDINGS: Bones/joints: No acute findings. No acute fracture. No dislocation. Soft tissues: No acute findings. IMPRESSION: No acute findings in the right knee. [employer] Phone: [employer] Phone: XR RADIUS ULNA RIGHT (2 VIEW S)on 05-01-2022 No acute findings in the right forearm. [facility] EXAM: XR Right Forearm, 2 Views EXAM DATE/TIME: 05/01/2022 7:21 pm CLINICAL HISTORY: ORDERING SYSTEM PROVIDED Fall TECHNOLOGIST PROVIDED HISTORY: Fall TECHNIQUE: Frontal and lateral views of the right forearm. COMPARISON: No relevant prior studies available. FINDINGS: Bones/joints: No acute findings. No acute fracture. No dislocation. Soft tissues: No acute findings. [facility] Hector Odonnell MD - 05/01/2022 EXAM: [...] No acute findings in the right forearm. [employer] Phone: [employer] Phone: XR TIBIA FIBULA RIGHT (2 VIE WS)on 05-01-2022 No acute findings in the right tibia and fibula or surrounding soft tissues. [facility] EXAM: XR Right Tibia and Fibula, 2 Views EXAM DATE/TIME: 05/01/2022 7:21 pm CLINICAL HISTORY: ORDERING SYSTEM PROVIDED fall TECHNOLOGIST PROVIDED HISTORY: fall TECHNIQUE: Frontal and lateral views of the right tibia and fibula. COMPARISON: 02/21/2016 FINDINGS: Bones/joints: No acute findings. No acute fracture. No dislocation. Soft tissues: No acute findings. No radiopaque foreign body. [facility] Hector Odonnell MD - 05/01/2022 EXAM: [...] tibia and fibula or surrounding soft tissues. [employer] Phone: [employer] Phone: US ABDOMEN LIMITED Specify o rgan? (hernia)on 02-03-2022 Prior cholecystectom y with otherwise unremarkable exam RECOMMENDATIONS: Unavailable [facility] EXAMINATION: RIGHT UPPER QUADRANT ULTRASOUND 02/03/2022 [...] No evidence of right upper quadrant ascites. [facility] Sal Mena DO - 02/03/2022 EXAMINATION: [...] cholecystectomy with otherwise unremarkable exam RECOMMENDATIONS: Unavailable [employer] Phone: Radiology Study observation (narrative) [employer] Phone: US ABDOMEN LIMITED Specify o rgan? (hernia)Ordered By: Sal Mena on 02-03-2022 [employer] Phone: COVID-19, Rapidon 12-19-2021 SARS-CoV-2 (COVID-19) RNA FAUSTINA+probe Ql (Unsp spec) Not detected Not Detected [employer] Comment on above: Rapid NAAT: The specimen [...] management decisions. Fact sheet for Healthcare Providers: https://www.fda.gov/media/958483/download Fact sheet for Patients: https://www.fda.gov/media/875907/download Methodology: Isothermal Nucleic Acid Amplification Specimen Description .NASOPHARYNGEAL SWAB [facility] Strep Screen Group A Throato n 12-19-2021 S. pyogenes Ag Ql (Throat) Negative NEGATIVE [facility] Comment on above: Rapid Strep A negati ve. A negative Rapid Group A Strep Screen result does not rule out the possibility of Group A Streptococci in the specimen. A Group A Strep DNA test is available upon request. Source .THROAT SWAB [facility] XR CERVICAL SPINE (4-5 VIEWS )on 11-21-2021 1. No acute cervical fracture or listhesis. 2. Mild degenerative disc disease and spondylosis C6-7. 3. If pain persists or worsens, then additional evaluation with CT or MRI may be indicated. Note that CT cervical spine is the study of choice for evaluation of acute trauma. [facility] EXAMINATION: 6 XRAY VIEWS OF THE [...] aligned. No discrete odontoid fracture is evident. [facility] Rickey Kwan MD - 11/21/2021 EXAMINATION: [...] of choice for evaluation of acute trauma. [employer] Phone: [employer] Phone: Radiology Study observation (narrative) [employer] Phone: XR SHOULDER LEFT (MIN 2 VIEW S)on 11-21-2021 No acute osseous abnormality. Follow-up imaging recommended if pain persists or worsens following conservative management. [facility] EXAMINATION: 3 XRAY VIEWS OF THE LEFT SHOULDER 11/21/2021 7:47 pm COMPARISON: Left shoulder radiograph series 06/06/2021 HISTORY: ORDERING SYSTEM PROVIDED HISTORY: pain TECHNOLOGIST PROVIDED HISTORY: pain FINDINGS: Osseous structures of the left shoulder are intact and aligned normally. No retained radiopaque foreign body. Visualized portions of the upper outer left hemithorax appear unremarkable. [facility] Rickey Kwan MD - 11/21/2021 EXAMINATION: [...] pain persists or worsens following conservative management. [employer] Phone: Radiology Study observation (narrative) [employer] Phone: XR SHOULDER LEFT (MIN 2 VIEW S)Ordered By: Rickey Kwan on 11-21-2021 [employer] Phone: Catheterization and angiogra phy procedure details panelon 11-06-2021 Cardiac Diagnostic Report Demographics Patient ADRIÁN Bee Date of Study 11/06/2021 Name Date of 1975 Gender Female Age 45 year(s) Race Room [id number]^MICHAEL^RONAN Height: 64 inch, 162.56 cm Number Corporate [id number] Weight: 191 pounds, 86.8 kg ID # Patient [id number] BSA: 1.92 m^2 BMI: 32.85 Acct # kg/m^2 MR # [id number] Performing Physician Ronan Rodriguez Referring Physician # [...] Left coronary angiography. Contrast Material: - [employer]sovue 38525 ml Fluoroscopy Time: Diagnostic: 1:09 minutes. Total: [...] sympto (more content not included)... PN T [facility] Ronan Rodriguez MD - 11/06/2021 Cardiac Diagnostic Report Demographics Patient ADRIÁN Bee Date of Study 11/06/2021 Name Date of 1975 Gender Female Age 45 year(s) Race Room [id number]^MICHAEL^RONAN Height: 64 inch, 162.56 cm Number Corporate [id number] Weight: 191 pounds, 86.8 kg ID # Patient [id number] BSA: 1.92 m^2 BMI: 32.85 Acct # kg/m^2 MR # [id number] Performing Physician Ronan Rodriguez Referring Physician # [...] Left coronary angiography. Contrast Material: - Isovue 38554 ml Fluoroscopy Time: Diagnostic: 1:09 minutes. Total: [...] assessed as CCS III according to the [place]i clinical classification. Hemodynamics Condition: Baseline Room Air Estimated: 181.71Heart Rate: 57 bpm Pressure +-----+ --- + !Site !Pressure ! +-----+ (more content not included)... [employer] Work Phone: [employer] Phone: Catheterization and angiogra phy procedure details panelOrdered By: Unknown Result on 11-06-2021 [employer] Catheterization and angiogra phy procedure details panelOrdered By: Unknown Result on 10-30-2021 [employer] Basic Metab w/rfx MGon 10-23 (cont.) Normal [facility] Comment on above: Result Comment: Aver age GFR for 40-49 years old: 99 mL/min/1.73sq m Chronic Kidney Disease: <60 mL/min/1.73sq m Kidney failure: <15 mL/min/1.73sq m eGFR calculated using average adult body mass. Additional eGFR calculator available at: http://www.[employer]/multiple_crcl_2011.htm Performed By: #### C GRAEME, BMPX #### [address] [place] [id number] [employer]ile Driving Superintendent: Darius Sarah MD Anion gap [Moles/Vol] 12 mmol/L Normal 9-17 [facility] Comment on above: Performed By: #### C DP, BMPX #### [address] [place] [address] Pile Driving Superintendent: Darius Sarah MD Calcium [Mass/Vol] 8.9 mg/dL Normal 8.6-10.4 [facility] Comment on above: Performed By: #### C DP, BMPX #### [address] [address] [employer]ile Driving Superintendent: Darius Sarah MD Chloride [Moles/Vol] 104 mmol/L Normal 98-107 [facility] Comment on above: Performed By: #### C DP, BMPX #### [address] [address] [employer] Driving Superintendent: Darius Sarah MD CO2 [Moles/Vol] 19 mmol/L Low 20-31 [facility] Comment on above: Performed By: #### C DP, BMPX #### [address] [address] [employer]ile Driving Superintendent: Darius Sarah MD Creatinine [Mass/Vol] 0.76 mg/dL Normal 0.50-0.90 [facility] Comment on above: Performed By: #### C DP, BMPX #### [address] [address] [employer]ile Driving Superintendent: Darius Sarah MD GFR, Amer >60 Normal >60 [facility] Comment on above: Performed By: #### C DP, BMPX #### [address] [address] [employer]ile Driving Superintendent: Darius Sarah MD GFR,non Amer >60 Normal >60 [facility] Comment on above: Performed By: #### C DP, BMPX #### [address] [address] [employer]ile Driving Superintendent: Darius Sarah MD Glucose [Mass/Vol] 112 mg/dL High 70-99 [facility] Comment on above: Performed By: #### C DP, BMPX #### [address] [address] [employer]ile Driving Superintendent: Darius Sarah MD Potassium [Moles/Vol] 3.6 mmol/L Low 3.7-5.3 [facility] Comment on above: Performed By: #### C DP, BMPX #### [facility] [address] [place], [place] [id number] Pile Driving Superintendent: Darius Sarah MD Sodium [Moles/Vol] 135 mmol/L Normal 135-144 [facility] Comment on above: Performed By: #### C DP, BMPX #### [facility] [address] [place] [address] Pile Driving Superintendent: Darius Sarah MD Urea nitrogen [Mass/Vol] 12 mg/dL Normal 6-20 [facility] Comment on above: Performed By: #### C DP, BMPX #### [facility] [address] [place], [place] [id number] Pile Driving Superintendent: Darius Sarah MD Basic Metabolic Panel w/ Ref golden to MGon 10-23-2021 Anion gap [Moles/Vol] 12 mmol/L 9 - 17 mmol/L [employer] Calcium [Mass/Vol] 8.9 mg/dL 8.6 - 10. 4 mg/dL [facility] Chloride [Moles/Vol] 104 mmol/L 98 - 10 7 mmol/L [employer] CO2 [Moles/Vol] 19 mmol/L Low 20 - 31 mmol/L [employer] Creatinine [Mass/Vol] 0.76 mg/dL 0.50 - 0.90 mg/dL [employer] GFR >60 >60 mL/min [employer] GFR Non- >60 >60 mL/min [employer] GFR/1.73 sq M.predicted MDRD (S/P/Bld) [Vol rate/Area] [facility] Comment on above: Average GFR for 40-4 9 years old: 99 mL/min/1.73sq m Chronic Kidney Disease: <60 mL/min/1.73sq m Kidney failure: <15 mL/min/1.73sq m eGFR calculated using average adult body mass. Additional eGFR calculator available at: http://www.globalrp.com/multiple_crcl_2011.htm Glucose [Mass/Vol] 112 mg/dL High 70 - 99 mg/dL [facility] Interpretation and review of laboratory results Abnormal [facility] Potassium [Moles/Vol] 3.6 mmol/L Low 3.7 - 5.3 mmol/L [facility] Sodium [Moles/Vol] 135 mmol/L 135 - 144 mmol/L [facility] Urea nitrogen (BldV) [Mass/Vol] 12 mg/dL 6 - 20 mg/dL [facility] CBC with Auto Differentialon 10-23-2021 Absolute Eos # 0.13 [facility] th Absolute Immature Granulocyte 0.06 [facility] Absolute Lymph # 2.50 [facility] alth Absolute [place] [facility].68 [facility] Basophils (Bld) [#/Vol] 0.07 10*3/uL [facility] Basophils/100 WBC (Bld) 1 % 0 - 2 % [facility] Eosinophils/100 WBC (Bld) 1 % 1 - 4 % [facility] Hematocrit (Bld) [Volume fraction] 39.3 % 36.3 - 47.1 % [facility] Hemoglobin.gastrointest inal spec 1 Ql (Stl) 13.2 g/dL 11.9 - 15.1 g/dL [facility] Immature granulocytes/100 WBC (Bld) 1 % High 0 [facility] Interpretation and review of laboratory results Abnormal [facility] Lymphocytes/100 WBC (Bld) 24 % 24 - 43 % [facility] MCH (RBC) [Entitic mass] 30.3 pg 25.2 - 33.5 pg [facility] MCHC (RBC) [Mass/Vol] 33.6 g/dL 28.4 - 34.8 g/dL [facility] MCV (RBC) [Entitic vol] 90.1 fL 82.6 - 102.9 fL [facility] Monocytes/100 WBC (Bld) 6 % 3 - 12 % [facility] NRBC Automated 0.0 0.0 per 100 WBC [facility] Platelet distribution width (Bld) [Ratio] 11.9 % 11.8 - 14.4 % [facility] Platelet mean volume (Bld) [Entitic vol] 10.9 fL 8.1 - 13.5 fL [facility] Platelets (Bld) [#/Vol] 272 10*3/uL [facility] RBC (Bld) [#/Vol] 4.36 10*6/uL 3.95 - 5.11 m/uL [facility] Segmented neutrophils/100 WBC (Bld) 67 % High 36 - 65 % [facility] Segs Absolute 7.16 [facility] ([facility]ld) [#/Vol] 10.6 10*3/uL [facility] CBC with Diffon 10-23-2021 Abs. Basophil 0.07 k/uL Normal 0.00-0.20 [facility] Comment on above: Performed By: #### C DP, BMPX #### [place] [address] Pile Driving Superintendent: Darius Sarah MD Abs.Imm.Granulocyte 0.06 k/uL Normal 0.00-0.30 [facility] Comment on above: Performed By: #### C DP, BMPX #### [facility] [employer] [address] [place] [address] Pile Driving Superintendent: Darius Sarah MD Abs.Neutrophil (Seg) 7.16 k/uL Normal 1.50-8.10 [facility] Comment on above: Performed By: #### C DP, BMPX #### [facility] [employer] [address] [place] [address] Pile Driving Superintendent: Darius Sarah MD Basophils/100 WBC (Bld) 1 % Normal 0-2 M [facility] Comment on above: Performed By: #### C DP, BMPX #### [facility] [employer] [address] [place] [address] Pile Driving Superintendent: Darius Sarah MD Eosinophils (Bld) [#/Vol] 0.13 10*3/uL Normal 0.00-0.44 [facility] Comment on above: Performed By: #### C DP, BMPX #### [facility] [employer] [address] [place] [address] Pile Driving Superintendent: Darius Sarah MD Eosinophils/100 WBC (Bld) 1 % Normal 1-4 [facility] Comment on above: Performed By: #### C DP, BMPX #### [facility] [employer] [address] [place] [address] Pile Driving Superintendent: Darius Sarah MD Erythrocyte distribution width (RBC) [Ratio] 11.9 % Normal 11.8-14.4 [facility] Comment on above: Performed By: #### C DP, BMPX #### [facility] [employer] [address] [place] [address] Pile Driving Superintendent: Darius Sarah MD Hematocrit (Bld) [Volume fraction] 39.3 % Normal 36.3-47.1 [facility] Comment on above: Performed By: #### C DP, BMPX #### [facility] [employer] [address] [place] [address] Pile Driving Superintendent: Darius Sarah MD Hemoglobin (Bld) [Mass/Vol] 13.2 g/dL Normal 11.9-15.1 [facility] Comment on above: Performed By: #### C DP, BMPX #### [address] [address] Pile Driving Superintendent: Darius Sarah MD Immature granulocytes/100 WBC (Bld) 1 % High 0 [facility] Comment on above: Performed By: #### C DP, BMPX #### [address] [address] Pile Driving Superintendent: Darius Sarah MD Lymphocytes (Bld) [#/Vol] 2.50 10*3/uL Normal 1.10-3.70 [facility] Comment on above: Performed By: #### C DP, BMPX #### [facility] [employer] [address] [place] [address] Pile Driving Superintendent: Darius Sarah MD Lymphocytes/100 WBC (Bld) 24 % Normal 24-43 [facility] Comment on above: Performed By: #### C DP, BMPX #### [address] [address] Pile Driving Superintendent: Darius Sarah MD MCH (RBC) [Entitic mass] 30.3 pg Normal 25.2-33.5 [facility] Comment on above: Performed By: #### C DP, BMPX #### [place] [address] Pile Driving Superintendent: Darius Sarah MD MCHC (RBC) [Mass/Vol] 33.6 g/dL Normal 28.4-34.8 [facility] Comment on above: Performed By: #### C DP, BMPX #### [place] [address] Pile Driving Superintendent: Darius Sarah MD MCV (RBC) [Entitic vol] 90.1 fL Normal 82.6-102.9 [facility] Comment on above: Performed By: #### C DP, BMPX #### [place] [address] Pile Driving Superintendent: Darius Sarah MD Monocytes (Bld) [#/Vol] 0.68 10*3/uL Normal 0.10-1.20 [facility] Comment on above: Performed By: #### C DP, BMPX #### [place] [address] Pile Driving Superintendent: Darius Sarah MD Monocytes/100 WBC (Bld) 6 % Normal 3-12 M [facility] Comment on above: Performed By: #### C DP, BMPX #### [place] [address] Pile Driving Superintendent: Darius Sarah MD Neutrophil (Seg) 67 % High 36-65 [facility] Comment on above: Performed By: #### C DP, BMPX #### [address] [address] Pile Driving Superintendent: Darius Sarah MD NRBC Automated 0.0 per 100 WBC Normal 0.0 [facility] Comment on above: Performed By: #### C DP, BMPX #### [address] [address] Pile Driving Superintendent: Darius Sarah MD Platelet mean volume (Bld) [Entitic vol] 10.9 fL Normal 8.1-13.5 [facility] Comment on above: Performed By: #### C DP, BMPX #### [address] [address] Pile Driving Superintendent: Darius Sarah MD Platelets (Bld) [#/Vol] 272 10*3/uL Normal 138-453 [facility] Comment on above: Performed By: #### C DP, BMPX #### [address] [address] Pile Driving Superintendent: Darius Sarah MD RBC (Bld) [#/Vol] 4.36 10*6/uL Normal 3.95-5.11 [facility] Comment on above: Performed By: #### C DP, BMPX #### [address] [address] Pile Driving Superintendent: Darius Sarah MD WBC (Bld) [#/Vol] 10.6 10*3/uL Normal 3.5-11.3 [facility] Comment on above: Performed By: #### C DP, BMPX #### [address] [address] Pile Driving Superintendent: Darius Sarah MD Basic Metab w/rfx MGon 10-21 (cont.) Normal [facility] Comment on above: Result Comment: Aver age GFR for 40-49 years old: 99 mL/min/1.73sq m Chronic Kidney Disease: <60 mL/min/1.73sq m Kidney failure: <15 mL/min/1.73sq m eGFR calculated using average adult body mass. Additional eGFR calculator available at: http://www.untapt.Message Systems/multiple_crcl_2012.htm Performed By: #### C DP, BMPX #### [facility] [employer] [address] [place] [address] Pile Driving Superintendent: Darius Sarah MD Anion gap [Moles/Vol] 14 mmol/L Normal 9-17 [facility] Comment on above: Performed By: #### C DP, BMPX #### [address] [address] Pile Driving Superintendent: Darius Sarah MD Calcium [Mass/Vol] 9.6 mg/dL Normal 8.6-10.4 [facility] Comment on above: Performed By: #### C DP, BMPX #### [address] [address] Pile Driving Superintendent: Darius Sarah MD Chloride [Moles/Vol] 105 mmol/L Normal 98-107 [facility] Comment on above: Performed By: #### C DP, BMPX #### [facility] [employer] [address] [place] [address] Pile Driving Superintendent: Darius Sarah MD CO2 [Moles/Vol] 20 mmol/L Normal 20-31 [facility] Comment on above: Performed By: #### C DP, BMPX #### [facility] [employer] [address] [place] [address] Pile Driving Superintendent: Darius Sarah MD Creatinine [Mass/Vol] 0.75 mg/dL Normal 0.50-0.90 [facility] Comment on above: Performed By: #### C DP, BMPX #### [facility] [employer] [address] [place] [address] Pile Driving Superintendent: Darius Sarah MD GFR, Amer >60 Normal >60 [facility] Comment on above: Performed By: #### C DP, BMPX #### [address] [address] Pile Driving Superintendent: Darius Sarah MD GFR,non Amer >60 Normal >60 [facility] Comment on above: Performed By: #### C DP, BMPX #### [facility] [employer] [address] [place] [address] Pile Driving Superintendent: Darius Sarah MD Glucose [Mass/Vol] 114 mg/dL High 70-99 [facility] Comment on above: Performed By: #### C DP, BMPX #### [facility] [employer] [address] [place] [address] Pile Driving Superintendent: Darisu Sarah MD Potassium [Moles/Vol] 4.3 mmol/L Normal 3.7-5.3 [facility] Comment on above: Performed By: #### C DP, BMPX #### [address] [address] Pile Driving Superintendent: Darius Sarah MD Sodium [Moles/Vol] 139 mmol/L Normal 135-144 [facility] Comment on above: Performed By: #### C DP, BMPX #### [address] [address] Pile Driving Superintendent: Darius Sarah MD Urea nitrogen [Mass/Vol] 9 mg/dL Normal 6-20 [facility] Comment on above: Performed By: #### C DP, BMPX #### [address] [address] Pile Driving Superintendent: Darius Sarah MD Basic Metabolic Panel w/ Ref golden to MGon 10-21-2021 Anion gap [Moles/Vol] 14 mmol/L 9 - 17 mmol/L [facility] Calcium [Mass/Vol] 9.6 mg/dL 8.6 - 10. 4 mg/dL [facility] Chloride [Moles/Vol] 105 mmol/L 98 - 10 7 mmol/L [facility] CO2 [Moles/Vol] 20 mmol/L 20 - 31 mmol/L [facility] Creatinine [Mass/Vol] 0.75 mg/dL 0.50 - 0.90 mg/dL [facility] GFR >60 >60 mL/min [facility] GFR Non- >60 >60 mL/min [facility] GFR/1.73 sq M.predicted MDRD (S/P/Bld) [Vol rate/Area] [facility] Comment on above: Average GFR for 40-4 9 years old: 99 mL/min/1.73sq m Chronic Kidney Disease: <60 mL/min/1.73sq m Kidney failure: <15 mL/min/1.73sq m eGFR calculated using average adult body mass. Additional eGFR calculator available at: http://www.GlobeImmune/multiple_crcl_2012.htm Glucose [Mass/Vol] 114 mg/dL High 70 - 99 mg/dL [facility] Interpretation and review of laboratory results Abnormal [facility] Potassium [Moles/Vol] 4.3 mmol/L 3.7 - 5.3 mmol/L [facility] Sodium [Moles/Vol] 139 mmol/L 135 - 144 mmol/L [facility] Urea nitrogen (BldV) [Mass/Vol] 9 mg/dL 6 - 20 mg/dL [facility] CBC with Auto Differentialon 10-21-2021 Absolute Eos # 0.14 [facility] th Absolute Immature Granulocyte 0.03 [facility] Absolute Lymph # 2.54 [facility] alth Absolute [place] # 0.63 [facility] lt Basophils (Bld) [#/Vol] 0.08 10*3/uL [facility] Hemoglobin.gastrointest inal spec 1 Ql (Stl) 14.0 g/dL 11.9 - 15.1 g/dL [facility] Interpretation and review of laboratory results Abnormal [facility] NRBC Automated 0.0 0.0 per 100 WBC [facility] Platelet distribution width (Bld) [Ratio] 11.7 % Low 11.8 - 14.4 % [facility] Segmented neutrophils/100 WBC (Bld) 69 % High 36 - 65 % [facility] Segs [facility] 7.78 [facility] CBC with Diffon 10-21-2021 Abs. Basophil 0.08 k/uL Normal 0.00-0.20 [facility] Comment on above: Performed By: #### C DP, BMPX #### [address] [address] Pile Driving Superintendent: Darius Sarah MD Abs.Imm.Granulocyte 0.03 k/uL Normal 0.00-0.30 [facility] Comment on above: Performed By: #### C DP, BMPX #### [address] [address] Pile Driving Superintendent: Darius Sarah MD Abs.Neutrophil (Seg) 7.78 k/uL Normal 1.50-8.10 [facility] Comment on above: Performed By: #### C DP, BMPX #### [address] [address] Pile Driving Superintendent: Darius Sarah MD Eosinophils (Bld) [#/Vol] 0.14 10*3/uL Normal 0.00-0.44 [facility] Comment on above: Performed By: #### C DP, BMPX #### [facility] [employer] [address] [place] [address] Pile Driving Superintendent: Darius Sarah MD Erythrocyte distribution width (RBC) [Ratio] 11.7 % Low 11.8-14.4 [facility] Comment on above: Performed By: #### C DP, BMPX #### [facility] [employer] [address] [place] [address] Pile Driving Superintendent: Darius Sarah MD Hemoglobin (Bld) [Mass/Vol] 14.0 g/dL Normal 11.9-15.1 [facility] Comment on above: Performed By: #### C DP, BMPX #### [facility] [employer] [address] [place] [address] Pile Driving Superintendent: Darius Sarah MD Lymphocytes (Bld) [#/Vol] 2.54 10*3/uL Normal 1.10-3.70 [facility] Comment on above: Performed By: #### C DP, BMPX #### [address] [address] Pile Driving Superintendent: Darius Sarah MD Monocytes (Bld) [#/Vol] 0.63 10*3/uL Normal 0.10-1.20 [facility] Comment on above: Performed By: #### C DP, BMPX #### [place] [address] Pile Driving Superintendent: Darius Sarah MD Neutrophil (Seg) 69 % High 36-65 [facility] Comment on above: Performed By: #### C DP, BMPX #### [place] [address] Pile Driving Superintendent: Darius Sarah MD NRBC Automated 0.0 per 100 WBC Normal 0.0 [facility] Comment on above: Performed By: #### C DP, BMPX #### [place] [address] Pile Driving Superintendent: Darius Sarah MD Basophils/100 WBC (Bld) 1 % Normal 0-2 [facility] Comment on above: Performed By: #### C DP, BMPX #### [place] [address] Pile Driving Superintendent: Darius Sarah MD Eosinophils/100 WBC (Bld) 1 % Normal 1-4 [facility] Comment on above: Performed By: #### C DP, BMPX #### [place] [address] Pile Driving Superintendent: Darius Sarah MD Hematocrit (Bld) [Volume fraction] 42.3 % Normal 36.3-47.1 [facility] Comment on above: Performed By: #### C DP, BMPX #### [address] [address] Pile Driving Superintendent: Darius Sarah MD Immature granulocytes/100 WBC (Bld) 0 % Normal 0 [facility] Comment on above: Performed By: #### C DP, BMPX #### [address] [address] Pile Driving Superintendent: Darius Sarah MD Lymphocytes/100 WBC (Bld) 23 % Low 24-43 [facility] Comment on above: Performed By: #### C DP, BMPX #### [address] [address] Pile Driving Superintendent: Darius Sarah MD MCH (RBC) [Entitic mass] 30.7 pg Normal 25.2-33.5 [facility] Comment on above: Performed By: #### C DP, BMPX #### [address] [address] Pile Driving Superintendent: Darius Sarah MD MCHC (RBC) [Mass/Vol] 33.1 g/dL Normal 28.4-34.8 [facility] Comment on above: Performed By: #### C DP, BMPX #### [address] [address] Pile Driving Superintendent: Darius Sarah MD MCV (RBC) [Entitic vol] 92.8 fL Normal 82.6-102.9 [facility] Comment on above: Performed By: #### C DP, BMPX #### [address] [address] Pile Driving Superintendent: Darius Sarah MD Monocytes/100 WBC (Bld) 6 % Normal 3-12 M [facility] Comment on above: Performed By: #### C DP, BMPX #### [address] [address] Pile Driving Superintendent: Darius Sarah MD Platelet mean volume (Bld) [Entitic vol] 10.0 fL Normal 8.1-13.5 [facility] Comment on above: Performed By: #### C DP, BMPX #### [facility] [address] [place] [address] Pile Driving Superintendent: Darius Sarah MD Platelets (Bld) [#/Vol] 343 10*3/uL Normal 138-453 [facility] Comment on above: Performed By: #### C DP, BMPX #### [facility] [address] [place] [address] Pile Driving Superintendent: Darius Sarah MD RBC (Bld) [#/Vol] 4.56 10*6/uL Normal 3.95-5.11 [facility] Comment on above: Performed By: #### C DP, BMPX #### [facility] [address] [place] [address] Pile Driving Superintendent: Darius Sarah MD WBC (Bld) [#/Vol] 11.2 10*3/uL Normal 3.5-11.3 [facility] Comment on above: Performed By: #### C DP, BMPX #### [facility] [address] [place] [address] Pile Driving Superintendent: Darius Sarah MD CT HEAD WO CONTRASTon [...] Judah Wilhelm MD 10/20/21 Final result Normal [facility] Echo Completeon 10-21-2021 Transthoracic Echocardiography Report (TTE) Patient Name ADRIÁN Date of Study 10/21/2021 MIKE N Date of 1975 Gender Female Age 45 year(s) Race Room Number 0530 Height: 64 inch, 162.56 cm Corporate ID [id number] Weight: 193 pounds, 87.5 kg # Patient Acct [id number] BSA: 1.93 m^2 BMI: 33.13 # kg/m^2 MR # [id number] [employer] Range Back Tender Karolina Shea Interpreting Physician Vicenta Thacker Fellow Referring Nurse Practitioner Interpreting Referring Physician Zaki Mcbride DO Fellow Type of Study TTE procedure:2D Echocardiogram, Color Doppler, Bubble Study, Limited Echo. Procedure Date Date: 10/21/2021 Start: 10:54 AM Study Location: [facility] Technical Quality: Adequate visualization Indications:CVA. History [...] insufficiency. Pericardial Effusion No pericardial effusion seen. [facility] Vicenta Thacker MD - 10/21/2021 Transthoracic Echocardiography Report (TTE) Patient Name ADRIÁN Date of Study 10/21/2021 MIKE N Date of 1975 Gender Female Age 45 year(s) Race Room Number 0530 Height: 64 inch, 162.56 cm Corporate ID [id number] Weight: 193 pounds, 87.5 kg # Patient Acct [id number] BSA: 1.93 m^2 BMI: 33.13 # kg/m^2 MR # [id number] [employer] Range Back Tender Karolina Shea Interpreting Physician Vicenta Thacker Fellow Referring Nurse Practitioner Interpreting Referring Physician DO Vance Phillips Type of Study TTE procedure:2D Echocardiogram, Color Doppler, Bubble Study, Limited Echo. Procedure Date Date: 10/21/2021 Start: 10:54 AM Study Location: [facility] Technical Quality: Adequate visualization Indications:CVA. History [...] insufficiency. Pericardial Effusion No pericardial effusion seen. [facility] Phone: Process Relations Phone: Basic Metab w/rfx MGon 10-20 Anion gap [Moles/Vol] 11 mmol/L Normal 9-17 [facility] Comment on above: Performed By: #### C BC, TROPI, BMPX, GLYHGB, LIPR ####[address] [place], [place] [id number] lab Director: Darius Sarah MD Calcium [Mass/Vol] 8.9 mg/dL Normal 8.6-10.4 [facility] Comment on above: Performed By: #### C BC, TROPI, BMPX, GLYHGB, LIPR ####[facility] [address] [place], [place] [id number] lab Director: Darius Sarah MD Chloride [Moles/Vol] 103 mmol/L Normal 98-107 [facility] Comment on above: Performed By: #### C BC, TROPI, BMPX, GLYHGB, LIPR ####[facility] [address] [place], [place] [id number] lab Director: Darius Sarah MD CO2 [Moles/Vol] 20 mmol/L Normal 20-31 [facility] Comment on above: Performed By: #### C BC, TROPI, BMPX, GLYHGB, LIPR ####[facility] [address] [place] [address] Lab Director: Darius Sarah MD Creatinine [Mass/Vol] 0.76 mg/dL Normal 0.50-0.90 [facility] Comment on above: Performed By: #### C BC, TROPI, BMPX, GLYHGB, LIPR ####[facility] [address] [place] [address] Lab Director: Darius Sarah MD GFR, Amer >60 Normal >60 [facility] Comment on above: Performed By: #### C BC, TROPI, BMPX, GLYHGB, LIPR ####[facility] [address] [place] [address] Lab Director: Darius Sarah MD GFR,non Amer >60 Normal >60 [facility] Comment on above: Performed By: #### C BC, TROPI, BMPX, GLYHGB, LIPR ####[facility] [address] [place] [address] Lab Director: Darius Sarah MD Glucose [Mass/Vol] 110 mg/dL High 70-99 [facility] Comment on above: Performed By: #### C BC, TROPI, BMPX, GLYHGB, LIPR ####[facility] [address] [place] [address] Lab Director: Darius Sarah MD Potassium [Moles/Vol] 3.6 mmol/L Low 3.7-5.3 [facility] Comment on above: Performed By: #### C BC, TROPI, BMPX, GLYHGB, LIPR ####[facility] [address] [place], [place] [id number] lab Director: Darius Sarah MD Sodium [Moles/Vol] 134 mmol/L Low 135-144 [facility] Comment on above: Performed By: #### C BC, TROPI, BMPX, GLYHGB, LIPR ####[facility] [address] [place] [address] lab Director: Darius Sarah MD Urea nitrogen [Mass/Vol] 12 mg/dL Normal 6-20 [facility] Comment on above: Performed By: #### C BC, TROPI, BMPX, GLYHGB, LIPR ####[facility] [address] [place] [address] lab Director: Darius Sarah MD (cont.) [facility] Comment on above: Result Comment: Aver age GFR for 40-49 years old: 99 mL/min/1.73sq m Chronic Kidney Disease: <60 mL/min/1.73sq m Kidney failure: <15 mL/min/1.73sq m eGFR calculated using average adult body mass. Additional eGFR calculator available at: http://www.untapt.Message Systems/multiple_crcl_2012.htm Performed By: #### C BC, TROPI, BMPX, GLYHGB, LIPR ####[facility] [address] [place], [place] [id number] lab Director: Darius Sarah MD Basic Metabolic Panel w/ Ref golden to MGon 10-20-2021 Anion gap [Moles/Vol] 11 mmol/L 9 - 17 mmol/L [facility] Calcium [Mass/Vol] 8.9 mg/dL 8.6 - 10. 4 mg/dL [facility] Chloride [Moles/Vol] 103 mmol/L 98 - 10 7 mmol/L [facility] CO2 [Moles/Vol] 20 mmol/L 20 - 31 mmol/L [facility] Creatinine [Mass/Vol] 0.76 mg/dL 0.50 - 0.90 mg/dL [id number] [facility] GFR >60 >60 mL/min [facility] GFR Non- >60 >60 mL/min [facility] GFR/1.73 sq M.predicted MDRD (S/P/Bld) [Vol rate/Area] [facility] Comment on above: Average GFR for 40-4 9 years old: 99 mL/min/1.73sq m Chronic Kidney Disease: <60 mL/min/1.73sq m Kidney failure: <15 mL/min/1.73sq m eGFR calculated using average adult body mass. Additional eGFR calculator available at: http://www.GlobeImmune/multiple_crcl_2011.htm Glucose [Mass/Vol] 110 mg/dL High 70 - 99 mg/dL [facility] Potassium [Moles/Vol] 3.6 mmol/L Low 3.7 - 5.3 mmol/L [facility] Sodium [Moles/Vol] 134 mmol/L Low 135 - 144 mmol/L [facility] Urea nitrogen (BldV) [Mass/Vol] 12 mg/dL 6 - 20 mg/dL [facility] CBCon 10-20-2021 Erythrocyte distribution width (RBC) [Ratio] 11.7 % Low 11.8-14.4 [facility] Comment on above: Performed By: #### C BC, TROPI, BMPX, GLYHGB, LIPR #### [address] [place] [address] Pile Driving Superintendent: Darius Sarah MD Hematocrit (Bld) [Volume fraction] 34.7 % Low 36.3-47.1 [facility] Comment on above: Performed By: #### C BC, TROPI, BMPX, GLYHGB, LIPR #### [address] [place] [address] Pile Driving Superintendent: Darius Sarah MD Hemoglobin (Bld) [Mass/Vol] 11.7 g/dL Low 11.9-15.1 [facility] Comment on above: Performed By: #### C BC, TROPI, BMPX, GLYHGB, LIPR #### [address] [facility] [place] [address] Pile Driving Superintendent: Darius Sarah MD MCH (RBC) [Entitic mass] 30.1 pg Normal 25.2-33.5 [facility] Comment on above: Performed By: #### C BC, TROPI, BMPX, GLYHGB, LIPR #### [address] [address] Pile Driving Superintendent: Darius Sarah MD MCHC (RBC) [Mass/Vol] 33.7 g/dL Normal 28.4-34.8 [facility] [facility] Comment on above: Performed By: #### C BC, TROPI, BMPX, GLYHGB, LIPR #### [address] [address] Pile Driving Superintendent: Darius Sarah MD MCV (RBC) [Entitic vol] 89.2 fL Normal 82.6-102.9 M [facility] Comment on above: Performed By: #### C BC, TROPI, BMPX, GLYHGB, LIPR #### [address] [address] Pile Driving Superintendent: Darius Sarah MD NRBC Automated 0.0 per 100 WBC Normal 0.0 [facility] Comment on above: Performed By: #### C BC, TROPI, BMPX, GLYHGB, LIPR #### [address] [address] Pile Driving Superintendent: Darius Sarah MD Platelet mean volume (Bld) [Entitic vol] 10.1 fL Normal 8.1-13.5 [facility] Comment on above: Performed By: #### C BC, TROPI, BMPX, GLYHGB, LIPR #### [address] [address] Pile Driving Superintendent: Darius Sarah MD Platelets (Bld) [#/Vol] 295 10*3/uL Normal 138-453 [facility] Comment on above: Performed By: #### C BC, TROPI, BMPX, GLYHGB, LIPR #### [facility] [address] [place], [place] [id number] Pile Driving Superintendent: Darius Sarah MD RBC (Bld) [#/Vol] 3.89 10*6/uL Low 3.95-5.11 [facility] Comment on above: Performed By: #### C BC, TROPI, BMPX, GLYHGB, LIPR #### [facility] [address] [place], [place] [id number] Pile Driving Superintendent: Darius Sarah MD WBC (Bld) [#/Vol] 10.5 10*3/uL Normal 3.5-11.3 [facility] Comment on above: Performed By: #### C BC, TROPI, BMPX, GLYHGB, LIPR #### [facility] [address] [place], [place] [id number] Pile Driving Superintendent: Darius Sarah MD Hematocrit (Bld) [Volume fraction] 34.7 % Low 36.3 - 47.1 % [facility] Hemoglobin.gastrointest inal spec 1 Ql (Stl) 11.7 g/dL Low 11.9 - 15.1 g/dL [facility] Interpretation and review of laboratory results Abnormal [facility] MCH (RBC) [Entitic mass] 30.1 pg 25.2 - 33.5 pg [facility] MCHC (RBC) [Mass/Vol] 33.7 g/dL 28.4 - 34.8 g/dL [facility] MCV (RBC) [Entitic vol] 89.2 fL 82.6 - 102.9 fL [facility] NRBC Automated 0.0 0.0 per 100 WBC [facility] Platelet distribution width (Bld) [Ratio] 11.7 % Low 11.8 - 14.4 % [facility] Platelet mean volume (Bld) [Entitic vol] 10.1 fL 8.1 - 13.5 fL [facility] Platelets (Bld) [#/Vol] 295 10*3/uL [facility] RBC (Bld) [#/Vol] 3.89 10*6/uL Low 3.95 - 5.11 m/uL [facility] WBC (Bld) [#/Vol] 10.5 10*3/uL [facility] COVID-19, Rapidon 10-20-2021 SARS-CoV-2 (COVID-19) RNA FAUSTINA+probe Ql (Unsp spec) Not detected Not Detected [facility] Comment on above: Rapid NAAT: The [...] management decisions. Fact sheet for Healthcare Providers: https://www.fda.gov/media/534213/download Fact sheet for Patients: https://www.fda.gov/media/718012/download Methodology: Isothermal Nucleic Acid Amplification Specimen Description .NASOPHARYNGEAL SWAB [facility] CT head without contraston 0 10-20-2021 EXAMINATION: [...] of the visualized skull or soft tissues. [facility] Judah Randhawa MD - 10/20/2021 EXAMINATION: CT [...] artifact. 2. No convincing acute intracranial abnormality. [employer] Phone: Radiology Study observation (narrative) [place] Phone: CT head without contrastOrde red By: Judah Wilhelm on 10-20-2021 [employer] Phone: EKG 12 LeadOrdered By: Vicenta Thacker on 10-20-2021 Atrial Rate 63 BPM [employer] Phone: P Harman 53 degrees [employer] Phone: P-R Interval 172 ms [employer] Phone: Q-T Interval 426 ms [employer] Phone: QRS Duration 88 ms [employer] Phone: QTc Calculation (Bazett) 435 ms [employer] Phone: R Harman -7 degrees [employer] Phone: T Harman 36 degrees [employer] Phone: Ventricular Rate 63 BPM [employer] Work Phone: [employer] Work Phone: EKG 12 Leadon 10-20-2021 Normal sinus rhythm Normal ECG When compared with ECG of 09-OCT-2019 23:08, No significant change was found [facility] ST[facility] Vicenta Serrano MD - 10/20/2021 Normal sinus rhythm Normal ECG When compared with ECG of 09-OCT-2019 23:08, No significant change was found [employer] Phone: Hemoglobin A1Con 10-20-2021 Glucose [Mass/Vol] 117 mg/dL Normal [facility] Comment on above: Result Comment: The ADA and AACC recommend providing the estimated average glucose result to permit better patient understanding of their HBA1c result. Performed By: #### C BC, TROPI, BMPX, GLYHGB, LIPR ####[facility] [id number] [place], [place] [id number] lab Director: Darius Sarah MD HbA1c (Bld) [Mass fraction] 5.7 % Normal 4.0-6.0 [facility] Comment on above: Performed By: #### C BC, TROPI, BMPX, GLYHGB, LIPR ####[facility] [address] [place], [place] [id number] lab Director: Darius Sarah MD Hemoglobin A1con 10-20-2021 Glucose [Mass/Vol] 117 mg/dL [facility] Comment on above: The ADA and AACC rec ommend providing the estimated average glucose result to permit better patient understanding of their HBA1c result. HbA1c (Bld) [Mass fraction] 5.7 % 4.0 - 6.0 % [facility] Lipid Profileon 10-20-2021 Cholesterol [Mass/Vol] 151 mg/dL Normal <[address] [facility] Comment on above: Result Comment: Cholesterol Guidelines: <200 Desirable 200-240 Borderline >240 Undesirable Performed By: #### C BC, TROPI, BMPX, GLYHGB, LIPR ####[address] [place], [place] [id number] Lab Director: Darius Sarah MD Cholesterol in HDL [Mass/Vol] 30 mg/dL Low >40 [facility] Comment on above: Result Comment: HDL Guidelines: <40 Undesirable 40-59 Borderline >59 Desirable Performed By: #### C BC, TROPI, BMPX, GLYHGB, LIPR ####[address] [address] Lab Director: Darius Sarah MD Cholesterol in LDL [Mass/Vol] 80 mg/dL Normal 0-130 [facility] Comment on above: Result Comment: LDL Guidelines: <100 Desirable 100-129 Near to/above Desirable 130-159 Borderline >159 Undesirable Direct (measured) LDL and calculated LDL are not interchangeable tests. Performed By: #### C BC, TROPI, BMPX, GLYHGB, LIPR ####[facility] [address] [place] [address] Lab Director: Darius Sarah MD Cholesterol.total/Audelia sterol in HDL [Mass ratio] 5.0 {ratio} High <5 [facility] Comment on above: Performed By: #### C BC, TROPI, BMPX, GLYHGB, LIPR ####[address] [address] Lab Director: Darius Sarah MD Triglyceride [Mass/Vol] 204 mg/dL High <150 M [facility] Comment on above: Result Comment: Triglyceride Guidelines: <150 Desirable 150-199 Borderline 200-499 High >499 Very high Based on AHA Guidelines for fasting triglyceride, April 2012. Performed By: #### C BC, TROPI, BMPX, GLYHGB, LIPR ####[facility] SystemsBqleuu[address]frinu[address] [place] [address] Lab Director: Darius Sarah MD Lipid panel - fastingon Cholesterol [Mass/Vol] 151 mg/dL <200 [facility] Comment on above: Cholesterol Guidelines: <200 Desirable 200-240 Borderline >240 Undesirable Cholesterol in HDL [Mass/Vol] 30 mg/dL Low >40 [facility] Comment on above: HDL Guidelines: <40 Undesirable 40-59 Borderline >59 Desirable Cholesterol in LDL [Mass/Vol] 80 mg/dL 0 - 130 mg/dL [facility] Comment on above: LDL Guidelines: <100 Desirable 100-129 Near to/above Desirable 130-159 Borderline >159 Undesirable Direct (measured) LDL and calculated LDL are not interchangeable tests. Cholesterol.total/Audelia sterol in HDL [Mass ratio] 5 {ratio} High <5 [facility] Triglyceride [Mass/Vol] 204 mg/dL High <150 M [facility] Comment on above: Triglyceride Guidelines: <150 Desirable [...] mass present. The proximal portions of the [place] demonstrate normal flow voids. ORBITS: The visualized portion of the orbits demonstrate no acute abnormality. SINUSES: The visualized paranasal sinuses and mastoid air cells demonstrate no acute abnormality. BONES/SOFT TISSUES: Bone marrow signal intensity is normal. IMPRESSION: Normal MRI of the brain. Interpreted by: Ashish Ogden MD Signed by: Ashish Ogden MD 10/20/21 Final result Normal [facility] MRI brain without contraston 10-20-2021 Normal MRI of the br ain. [facility] EXAMINATION: MRI OF THE BRAIN WITHOUT [...] mass present. The proximal portions of the [place] demonstrate normal flow voids. ORBITS: The visualized portion of the orbits demonstrate no acute abnormality. SINUSES: The visualized paranasal sinuses and mastoid air cells demonstrate no acute abnormality. BONES/SOFT TISSUES: Bone marrow signal intensity is normal. [facility] Ashish Ogden MD - 10/20/2021 EXAMINATION: [...] mass present. The proximal portions of the [place] demonstrate normal flow voids. ORBITS: The visualized portion of the orbits demonstrate no acute abnormality. SINUSES: The visualized paranasal sinuses and mastoid air cells demonstrate no acute abnormality. BONES/SOFT TISSUES: Bone marrow signal intensity is normal. IMPRESSION: Normal MRI of the brain. [employer] Work Phone: Radiology Study observation (narrative) [facility] Work Phone: MRI brain without contrastOr dered By: Ashish Ogden on 10-20-2021 [employer] Work Phone: No Panel Informationon 10-20 Interpretation and review of laboratory results Abnormal [facility] [id number] 10-20-2021 SARS-CoV-2 (COVID-19) RNA FAUSTINA+probe Ql (Unsp spec) Not detected Normal NOTDET [facility] Comment on above: Result Comment: Rapid NAAT: [...] management decisions. Fact sheet for Healthcare Providers: https://www.fda.gov/media/682101/download Fact sheet for Patients: https://www.fda.gov/media/034726/download Methodology: Isothermal Nucleic Acid Amplification Performed By: #### C OVRB #### [address] [place] [address] Pile Driving Superintendent: Darius Sarah MD Troponinon 10-20-2021 Troponin, High Sens <6 Normal 0-14 [facility] Comment on above: Result Comment: High Sensitivity Troponin values cannot be compared with other Troponin methodologies. Patients with high levels of Biotin oral intake (i.e >5mg/day) may have falsely decreased Troponin levels. Samples collected within 8 hours of biotin intake may require additional information for diagnosis. Performed By: #### C BC, TROPI, BMPX, GLYHGB, LIPR #### [address] [place] [address] Pile Driving Superintendent: Darius Sarah MD Troponin, High Sensitivity <6 0 - 14 ng/L [facility] Comment on above: High Sensitivity Troponin values cannot be compared with other Troponin methodologies. Patients with high levels of Biotin oral intake (i.e >5mg/day) may have falsely decreased Troponin levels. Samples collected within 8 hours of biotin intake may require additional information for diagnosis. [facility] APTTon 10-19-2021 aPTT Coag (Bld) [Time] 27.0 s [facility] Comment on above: IV Heparin Therapy Range: 62.0-94.0 [facility] CBC with Auto Differentialon 10-19-2021 Absolute Eos # 0.09 [facility] th Absolute Immature Granulocyte <0.03 [facility] Absolute Lymph # 2.20 [facility] Absolute [place] # 0.57 [facility] lt Basophils (Bld) [#/Vol] 0.06 10*3/uL [facility] Basophils/100 WBC (Bld) 1 % 0 - 2 % [facility] Eosinophils/100 WBC (Bld) 1 % 1 - 4 % [facility] Hematocrit (Bld) [Volume fraction] 38.2 % 36.3 - 47.1 % [facility] Hemoglobin.gastrointest inal spec 1 Ql (Stl) 12.9 g/dL 11.9 - 15.1 g/dL [facility] Immature granulocytes/100 WBC (Bld) 0 % 0 [facility] Interpretation and review of laboratory results Abnormal [facility] Lymphocytes/100 WBC (Bld) 23 % Low 24 - 43 % [facility] MCH (RBC) [Entitic mass] 30.4 pg 25.2 - 33.5 pg [facility] MCHC (RBC) [Mass/Vol] 33.8 g/dL 28.4 - 34.8 g/dL [facility] MCV (RBC) [Entitic vol] 89.9 fL 82.6 - 102.9 fL [facility] Monocytes/100 WBC (Bld) 6 % 3 - 12 % M [facility] NRBC Automated 0.0 0.0 per 100 WBC [facility] Platelet distribution width (Bld) [Ratio] 11.9 % 11.8 - 14.4 % [facility] Platelet mean volume (Bld) [Entitic vol] 10.1 fL 8.1 - 13.5 fL [facility] Platelets (Bld) [#/Vol] 317 10*3/uL [facility] RBC (Bld) [#/Vol] 4.25 10*6/uL 3.95 - 5.11 m/uL [facility] Segmented neutrophils/100 WBC (Bld) 69 % High 36 - 65 % [facility] Segs Absolute 6.60 [facility] (Bld) [#/Vol] 9.5 10*3/uL [facility] CT Head WO Contraston 2021 Radiology Study observation (narrative) [facility] Work Phone: CTA HEAD NECK W CONTRASTon 0 10-19-2021 Radiology Study observation (narrative) [facility] Work Phone: Comprehensive Metabolic Pane l w/ Reflex to MGon 10-19-2021 Albumin [Mass/Vol] 4.3 g/dL 3.5 - 5.2 g/dL [facility] Albumin/Globulin [Mass ratio] 1.4 {ratio} [facility] ALP (Bld) [Catalytic activity/Vol] 95 U/L 35 - 104 U/L [facility] ALT [Catalytic activity/Vol] 28 U/L 5 - 33 U/L [facility] Anion gap [Moles/Vol] 9 mmol/L 9 - 17 mmol/L [facility] AST [Catalytic activity/Vol] 23 U/L <32 [facility] Bilirubin [Mass/Vol] 0.24 mg/dL Low 0.3 - 1 .2 mg/dL [facility] Calcium [Mass/Vol] 9.3 mg/dL 8.6 - 10. 4 mg/dL [facility] Chloride [Moles/Vol] 102 mmol/L 98 - 10 7 mmol/L [facility] CO2 [Moles/Vol] 25 mmol/L 20 - 31 mmol/L [facility] Creatinine [Mass/Vol] 0.75 mg/dL 0.50 - 0.90 mg/dL [facility] Free PSA/Total PSA [Mass fraction] 7.3 g/dL 6.4 - 8.3 g/dL [facility] GFR >60 >60 mL/min [facility] GFR Non- >60 >60 mL/min [facility] Glucose [Mass/Vol] 103 mg/dL High 70 - 99 mg/dL [facility] Interpretation and review of laboratory results Abnormal [facility] Potassium [Moles/Vol] 4.3 mmol/L 3.7 - 5.3 mmol/L [facility] Sodium [Moles/Vol] 136 mmol/L 135 - 144 mmol/L [facility] Urea nitrogen (BldV) [Mass/Vol] 10 mg/dL 6 - 20 mg/dL [facility] Urea nitrogen/Creatinine (Bld) [Mass ratio] 13 [facility] Glucose, Whole Bloodon 10-19 Glucose [Mass/Vol] 105 mg/dL High 74 - 100 mg/dL [facility] Interpretation and review of laboratory results Abnormal [facility] Laboratory - Chemistry and C hemistry - challengeon 10-19-2021 GFR/1.73 sq M.predicted MDRD (S/P/Bld) [Vol rate/Area] [facility] Comment on above: Average GFR for 40-4 9 years old: 99 mL/min/1.73sq m Chronic Kidney Disease: <60 mL/min/1.73sq m Kidney failure: <15 mL/min/1.73sq m eGFR calculated using average adult body mass. Additional eGFR calculator available at: http://www.untapt.Message Systems/multiple_crcl_2012.htm Stage 1: Some kidney damage normal GFR [...] No aneurysm. CAROTID STENOSIS REFERENCE: The [place] Symptomatic Carotid Endarterectomy Trial (NASCET) is a [...] venous sinus thrombosis on this non-dedicated study. [facility] Teresa Johnson MD - 10/19/2021 EXAMINATION: CT [...] No aneurysm. CAROTID STENOSIS REFERENCE: The [place] Symptomatic Carotid Endarterectomy Trial (NASCET) is a method of quantifying internal carotid artery stenosis. Distal internal carotid artery diameter as the denominator for stenosis measurement: MILD = <50% stenosis. MODERATE = 50-69% stenosis. SEVERE = 70-89% stenosis. HAIRLINE/CRITICAL = 90-99% stenosis. OCCLUDED = 100% stenosis. [employer] Work Phone: No Panel InformationOrdered By: Teresa Herzog on 10-19-2021 [employer] Work Phone: Protime-INRon 10-19-2021 INR Coag (Bld) [Relative time] 1.0 {INR} [employer] Comment on above: Non-therapeutic Range: INR = 0.9-1.2 Therapeutic Range: Moderate Anticoagulant Intensity: INR = 2.0-3.0 High Anticoagulant Intensity: INR = 2.5-3.5 PT Coag (PPP) [Time] 13.3 s [employer] Troponinon 10-19-2021 Troponin, High Sensitivity <6 0 - 14 ng/L [employer] Comment on above: High Sensitivity Troponin values cannot be compared with other Troponin methodologies. Patients with high levels of Biotin oral intake (i.e >5mg/day) may have falsely decreased Troponin levels. Samples collected within 8 hours of biotin intake may require additional information for diagnosis. [employer] XR CHEST PORTABLEon 10-20-19 22 1. No acute cardiopulmonary abnormality. [facility] RIS CONSOLIDATED EXAMINATION: ONE XRAY VIEW OF THE CHEST 10/19/2021 8:40 pm COMPARISON: None. HISTORY: ORDERING SYSTEM PROVIDED HISTORY: stroke symptoms TECHNOLOGIST PROVIDED HISTORY: stroke symptoms FINDINGS: The lungs are clear, no effusion. No pneumothorax. Heart is normal size. Mediastinal and hilar contours are within normal limits. Bony thorax no acute abnormality. [facility] Antony Dominguez MD - 10/19/2021 EXAMINATION: ONE XRAY VIEW OF THE CHEST 10/19/2021 8:40 pm COMPARISON: None. HISTORY: ORDERING SYSTEM PROVIDED HISTORY: stroke symptoms TECHNOLOGIST PROVIDED HISTORY: stroke symptoms FINDINGS: The lungs are clear, no effusion. No pneumothorax. Heart is normal size. Mediastinal and hilar contours are within normal limits. Bony thorax no acute abnormality. IMPRESSION: 1. No acute cardiopulmonary abnormality. [employer] Work Phone: Radiology Study observation (narrative) [facility] Work Phone: XR CHEST PORTABLEOrdered By: Antony Nichols on 10-19-2021 [employer] Phone: [id number] COMPLETEon [facility] Transthoracic Echocardiography Report (TTE) Patient Name ADRIÁN Date of Study 10/07/2021 MIKE N Date of 1975 Gender Female Age 45 year(s) Race Room Number 0328 Height: 64 inch, 162.56 cm Corporate ID [id number] Weight: 190 pounds, 86.2 kg # Patient Acct [id number] BSA: 1.91 m^2 BMI: 32.61 # kg/m^2 MR # [id number] Cloth Bleaching Range Back Tender Libertad Prieto Interpreting Physician Nat Mora Fellow Referring Nurse Practitioner Interpreting Referring Physician Rl Blanc Fellow Type of Study TTE procedure:2D Echocardiogram, M-Mode, Doppler, Color Doppler. Procedure Date Date: 10/07/2021 Start: 09:52 AM Study Location: [facility] Indications:Chest pain. History / Tech. Comments: [...] velocity:0.15 m/s Lateral Wall E/E':3.4 MHPN T [facility] Nat Mora MD - 10/07/2021 [facility] Transthoracic Echocardiography Report (TTE) Patient Name ADRIÁN Date of Study 10/07/2021 MIKE N Date of 1975 Gender Female Age 45 year(s) Race Room Number 0328 Height: 64 inch, 162.56 cm Corporate ID [id number] Weight: 190 pounds, 86.2 kg # Patient Acct [id number] BSA: 1.91 m^2 BMI: 32.61 # kg/m^2 MR # [id number] [employer]oth [employer]aching Range Back Tender Libertad Prieto Interpreting Physician Nat Mora Fellow Referring Nurse Practitioner Interpreting Referring Physician Rl Blanc Fellow Type of Study TTE procedure:2D Echocardiogram, M-Mode, Doppler, Color Doppler. Procedure Date Date: 10/07/2021 Start: 09:52 AM Study Location: [facility] Indications:Chest pain. History / Tech. Comments: [...] Wall E' velocity:0.15 m/s Lateral Wall E/E':3.4 [employer] Work Phone: [employer] Work Phone: EKG 12 LeadOrdered By: Aidan Richter on 10-07-2021 Atrial Rate 86 BPM [employer] Work Phone: P Harman 70 degrees [employer] Work Phone: P-R Interval 164 ms [employer] Work Phone: Q-T Interval 378 ms [employer] Work Phone: QRS Duration 80 ms [employer] Work Phone: QTc Calculation (Bazett) 452 ms [employer] Work Phone: R Harman -10 degrees [employer] Work Phone: T Harman 59 degrees [employer] Work Phone: Ventricular Rate 86 BPM [employer] Work Phone: [employer] Work Phone: EKG 12 Leadon 10-07-2021 Normal sinus rhythm Possible Left atrial enlargement Nonspecific ST abnormality Abnormal ECG When compared with ECG of 08-JUL-2021 14:55, Vent. rate has increased BY 29 BPM Confirmed by GILMAR RICHTER ([id number]) on 10/07/2021 12:44:[address] [facility] Gilmar Richter MD - 10/07/2021 Normal sinus rhythm Possible Left atrial enlargement Nonspecific ST abnormality Abnormal ECG When compared with ECG of 08-JUL-2021 14:55, Vent. rate has increased BY 29 BPM Confirmed by GILMAR RICHTER ([id number]) on 10/07/2021 12:44:46 PM [employer] Work Phone: EKG 12 leadon 10-07-2021 Atrial Rate 72 BPM [employer] Work Phone: P Harman 53 degrees [employer] Work Phone: P-R Interval 172 ms [employer] Work Phone: Q-T Interval 456 ms [employer] Work Phone: QRS Duration 88 ms [employer] Work Phone: QTc Calculation (Bazett) 499 ms [employer] Work Phone: R Harman 3 degrees [employer] Work Phone: T Harman 39 degrees [employer] Work Phone: Ventricular Rate 72 BPM [employer] Work Phone: Normal sinus rhythm Nonspecific T wave abnormality Abnormal ECG When compared with ECG of 06-OCT-2021 19:51, (unconfirmed) Nonspecific T wave abnormality now evident in Inferior leads Nonspecific T wave abnormality, worse in Lateral leads Confirmed by GILMAR RICHTER ([id number]) on 10/07/2021 12:44:[address] [facility] Gilmar Richter MD - 10/07/2021 Normal sinus rhythm Nonspecific T wave abnormality Abnormal ECG When compared with ECG of 06-OCT-2021 19:51, (unconfirmed) Nonspecific T wave abnormality now evident in Inferior leads Nonspecific T wave abnormality, worse in Lateral leads Confirmed by GILMAR RICHTER ([id number]) on 10/07/2021 12:44:30 PM [employer] Work Phone: [employer] Work Phone: EKG Rhythm Stripon [address] [facility] STRESS - MYOVIEWon 2 Nat Mora MD - 10/07/2021 1:31 PM EDT [address] [address] CARDIAC STRESS TEST PATIENT NAME: MIKE SHARIF : 1975 MED REC NO: [id number] ROOM: 0328 ACCOUNT NO: [id number] ADMIT DATE: 10/06/2021 PROVIDER: Nat Mora MD CARDIOVASCULAR DIAGNOSTIC DEPARTMENT DATE OF STUDY: 10/06/2021 ORDERING PROVIDER: Rl Blanc MD PRIMARY CARE PROVIDER: Ena Fung APRN-[facility] INTERPRETING PHYSICIAN: Nat Mora MD PHARMACOLOGIC [...] JIMMY/CANDE_EDIT Doc#: Unknown CC: Ena Blanc MD [employer] Work Phone: [employer] Work Phone: Troponinon 10-07-2021 Troponin, High Sensitivity 6 ng/L 0 - 14 ng/L [employer] Comment on above: High Sensitivity Troponin values cannot be compared with other Troponin methodologies. Patients with high levels of Biotin oral intake (i.e >5mg/day) may have falsely decreased Troponin levels. Samples collected within 8 hours of biotin intake may require additional information for diagnosis. [facility] Basic Metabolic Panelon 09-17 Anion gap [Moles/Vol] 12 mmol/L 9 - 17 mmol/L [facility] Calcium [Mass/Vol] 9.2 mg/dL 8.6 - 10. 4 mg/dL [facility] Chloride [Moles/Vol] 103 mmol/L 98 - 10 7 mmol/L [facility] CO2 [Moles/Vol] 22 mmol/L 20 - 31 mmol/L [facility] Creatinine [Mass/Vol] 0.61 mg/dL 0.50 - 0.90 mg/dL [facility] GFR >60 >60 mL/min [facility] GFR Non- >60 >60 mL/min [facility] Glucose [Mass/Vol] 113 mg/dL High 70 - 99 mg/dL [facility] Interpretation and review of laboratory results Abnormal [facility] Potassium [Moles/Vol] 3.4 mmol/L Low 3.7 - 5.3 mmol/L [facility] Sodium [Moles/Vol] 137 mmol/L 135 - 144 mmol/L [facility] Urea nitrogen (BldV) [Mass/Vol] 6 mg/dL 6 - 20 mg/dL [facility] Urea nitrogen/Creatinine (Bld) [Mass ratio] 10 [facility] CBC with Auto Differentialon 10-06-2021 Absolute Eos # 0.11 [facility] Absolute Immature Granulocyte <0.03 [facility] Absolute Lymph # 3.53 [facility] alth Absolute [place] # 0.73 [facility] lth Basophils (Bld) [#/Vol] 0.06 10*3/uL [facility] Basophils/100 WBC (Bld) 1 % 0 - 2 % [facility] Eosinophils/100 WBC (Bld) 1 % 1 - 4 % [facility] Hematocrit (Bld) [Volume fraction] 40.0 % 36.3 - 47.1 % [facility] Hemoglobin.gastrointest inal spec 1 Ql (Stl) 13.7 g/dL 11.9 - 15.1 g/dL [facility] Immature granulocytes/100 WBC (Bld) 0 % 0 [facility] Lymphocytes/100 WBC (Bld) 35 % 24 - 43 % [facility] MCH (RBC) [Entitic mass] 30.9 pg 25.2 - 33.5 pg [facility] MCHC (RBC) [Mass/Vol] 34.3 g/dL 28.4 - 34.8 g/dL [facility] MCV (RBC) [Entitic vol] 90.1 fL 82.6 - 102.9 fL [facility] Monocytes/100 WBC (Bld) 7 % 3 - 12 % [facility] NRBC Automated 0.0 0.0 per 100 WBC [facility] Platelet distribution width (Bld) [Ratio] 12.3 % 11.8 - 14.4 % [facility] Platelet mean volume (Bld) [Entitic vol] 9.9 fL 8.1 - 13.5 fL [facility] Platelets (Bld) [#/Vol] 352 10*3/uL [facility] RBC (Bld) [#/Vol] 4.44 10*6/uL 3.95 - 5.11 m/uL [facility] Segmented neutrophils/100 WBC (Bld) 56 % 36 - 65 % [facility] Segs Absolute 5.66 [facility] h WBC (Bld) [#/Vol] 10.1 10*3/uL [facility] D-Dimer, Quantitativeon - D-Dimer, Quant 0.52 [facility] Comment on above: When combined with [...] more prevalent in patients with distal DVT. [facility] Hepatic Function Panelon Albumin [Mass/Vol] 4.7 g/dL 3.5 - 5.2 g/dL [facility] Albumin/Globulin [Mass ratio] 1.6 {ratio} [facility] ALP (Bld) [Catalytic activity/Vol] 97 U/L 35 - 104 U/L [facility] ALT [Catalytic activity/Vol] 45 U/L High 5 - 33 U/L [facility] AST [Catalytic activity/Vol] 32 U/L High <32 [facility] Bilirubin [Mass/Vol] 0.20 mg/dL Low 0.3 - 1 .2 mg/dL [facility] Bilirubin, Indirect Can not be calculated 0.00 - 1.00 mg/dL [facility] Bilirubin.indirect [Mass/Vol] mg/dL <0.31 mg/dL [facility] PSA/Total PSA [Mass fraction] 7.6 g/dL 6.4 - 8.3 g/dL [facility] Interpretation and review of laboratory results Abnormal [facility] Laboratory - Chemistry and C hemistry - challengeon 10-06-2021 GFR/1.73 sq M.predicted MDRD (S/P/Bld) [Vol rate/Area] [facility] Comment on above: Average GFR for 40-4 9 years old: 99 mL/min/1.73sq m Chronic Kidney Disease: <60 mL/min/1.73sq m Kidney failure: <15 mL/min/1.73sq m eGFR calculated using average adult body mass. Additional eGFR calculator available at: http://www.[employer]/multiple_crcl_2012.htm Stage 1: Some kidney damage normal GFR Stage 2: Mild kidney damage GFR 60-89 Stage 3: Moderate kidney damage GFR 30-59 Stage 4: Severe kidney damage GFR 15-29 Stage 5: Severe kidney damage GFR <15 ESRD - chronic treatment by dialysis or transplant Lipaseon 10-06-2021 Lipase [Catalytic activity/Vol] 23 U/L 13 - 60 U/L [facility] No Panel Informationon 10-06 [facility] Troponinon 10-06-2021 Troponin, High Sensitivity <6 0 - 14 ng/L [facility] Comment on above: High Sensitivity Troponin values cannot be compared with other Troponin methodologies. Patients with high levels of Biotin oral intake (i.e >5mg/day) may have falsely decreased Troponin levels. Samples collected within 8 hours of biotin intake may require additional information for diagnosis. [facility] Troponin, High Sensitivity <6 0 - 14 ng/L [facility] Comment on above: High Sensitivity Troponin values cannot be compared with other Troponin methodologies. Patients with high levels of Biotin oral intake (i.e >5mg/day) may have falsely decreased Troponin levels. Samples collected within 8 hours of biotin intake may require additional information for diagnosis. [facility] XR CHEST PORTABLEon 10-07-19 22 1. No [...] the chest could obscure an underlying finding. [facility] Rickey Kwan MD - 10/06/2021 EXAMINATION: [...] the chest could obscure an underlying finding. [facility] Work Phone: Radiology Study observation (narrative) [facility] Work Phone: XR CHEST PORTABLEOrdered By: Rickey Kwan on 10-06-2021 [facility] Work Phone: COVID-19on 08-19-2021 SARS-CoV-2 (COVID-19) RNA FAUSTINA+probe Ql (Unsp spec) [facility] SARS-CoV-2 (COVID-19) RNA FAUSTINA+probe Ql (Unsp spec) Not detected Not Detected [facility] Comment on above: The specimen is NEGATIVE for SARS-CoV-2, the novel coronavirus associated with COVID-19. A negative result does not rule out COVID-19. Pedro SARS-CoV-2 for use on the [employer] is a real-time RT-PCR test intended [...] this assay. Fact sheet for Healthcare Providers: https://www.fda.gov/media/885002/download Fact sheet for Patients: https://www.fda.gov/media/132770/download METHODOLOGY: RT-PCR Source .NASOPHARYNGEAL SWAB [facility] [place] Culture, Urineon 08-15-2021 Bacteria identified Cx Nom (U) NO SIGNIFICANT GROWTH [facility] Special Requests NOT REPORTED [facility] Specimen Description .CLEAN CATCH URINE [facility] CBC Auto Differentialon 07-20 Absolute Eos # 0.13 [facility] Absolute Immature Granulocyte 0.05 [facility] Absolute Lymph # 3.01 [facility] Absolute [place] # 0.74 [facility] lt Basophils (Bld) [#/Vol] 0.06 10*3/uL [facility] Basophils/100 WBC (Bld) 1 % 0 - 2 % [facility] Differential Type NOT REPORTED [facility] Eosinophils/100 WBC (Bld) 1 % 1 - 4 % [facility] Hematocrit (Bld) [Volume fraction] 39.4 % 36.3 - 47.1 % [facility] Hemoglobin.gastrointest inal spec 1 Ql (Stl) 13.2 g/dL 11.9 - 15.1 g/dL [facility] Immature granulocytes/100 WBC (Bld) 0 % 0 [facility] Interpretation and review of laboratory results Abnormal [facility] Lymphocytes/100 WBC (Bld) 26 % 24 - 43 % [facility] MCH (RBC) [Entitic mass] 30.1 pg 25.2 - 33.5 pg [facility] MCHC (RBC) [Mass/Vol] 33.5 g/dL 28.4 - 34.8 g/dL [facility] MCV (RBC) [Entitic vol] 89.7 fL 82.6 - 102.9 fL [facility] Monocytes/100 WBC (Bld) 6 % 3 - 12 % M [facility] NRBC Automated 0.0 0.0 per 100 WBC [facility] Platelet distribution width (Bld) [Ratio] 11.9 % 11.8 - 14.4 % [facility] Platelet Estimate NOT REPORTED [facility] Platelet mean volume (Bld) [Entitic vol] 9.7 fL 8.1 - 13.5 fL [facility] Platelets (Bld) [#/Vol] 360 10*3/uL [facility] RBC (Bld) [#/Vol] 4.39 10*6/uL 3.95 - 5.11 m/uL [facility] RBC (Bld) [#/Vol] NOT REPORTED [facility] Segmented neutrophils/100 WBC (Bld) 66 % High 36 - 65 % [facility]s [facility]ld[facility] [#/Vol] 11.5 10*3/uL High [facility] WBC (Bld) [#/Vol] NOT REPORTED [facility] TYPE AND SCREENon 08-14-2021 ABO/Rh Positive [facility] Arm Band Number [id number] [facility] Expiration Date 08/21/2021,2359 [facility] [place] VL DUP UPPER EXTREMITY VENOU S RIGHTon 07-08-2021 Jarred Gómez MD - 07/08/2021 [facility] Vascular Upper Extremities Veins Procedure Patient Name ADRIÁN Date of Study 07/08/2021 MIKE N Date of 1975 Gender Female Age 45 year(s) Race Room Number 09 Corporate ID [id number] # Patient Acct [id number] # MR # [id number] [employer] Maggie Bowman Kelly, T Interpreting Physician Jarred Gómez MD Referring Referring Physician Nurse Practitioner Additional Comments Results faxed to ER 07/08/2021 @7002. Procedure Type of Study: Veins: Upper Extremities [...] ! ! + --+ --+ --- + [facility] Work Phone: Radiology Study observation (narrative) [place] Phone: VL DUP UPPER EXTREMITY VENOU S RIGHTOrdered By: Jarred Gómez on 07-08-2021 [facility] Phone: Catheterization and angiogra phy procedure details panelon 06-19-2021 Cardiac Diagnostic Report Demographics Patient ADRIÁN Bee Date of Study 06/19/2021 Name Date of 1975 Gender Female Age 45 year(s) Race Room [id number]^DELONTE Height: 64 inch, 162.56 cm Number Corporate [id number] Weight: 183 pounds, 83 kg ID # Patient [id number] BSA: 1.88 m^2 BMI: 31.41 Acct # kg/m^2 MR # [id number] Performing Physician Ronan Rodriguez Referring Physician # [...] for LV Pressure. Contrast Material: - Isovue 13006 ml Fluoroscopy Time: Diagnostic: 2:07 minutes. Total: [...] -----+ +------- ---+ (more content not included)... [facility] Ronan Rodriguez MD - 06/19/2021 Cardiac Diagnostic Report Demographics Patient ADRIÁN Bee Date of Study 06/19/2021 Name Date of 1975 Gender Female Age 45 year(s) Race Room [id number]^MICHAEL^RONAN Height: 64 inch, 162.56 cm Number Corporate [id number] Weight: 183 pounds, 83 kg ID # Patient [id number] BSA: 1.88 m^2 BMI: 31.41 Acct # kg/m^2 MR # [id number] Performing Physician Ronan Rodriguez Referring Physician # Assisting Physician Additional Comments ASA & Mallampati documented in [facility] by Physician. H&P reviewed and patient examined [...] for LV Pressure. Contrast Material: - Isovue 96775 ml Fluoroscopy Time: Diagnostic: 2:07 minutes. Total: [...] assessed as CCS III according to the [place] clinical classification. Hemodynamics Condition: Baseline Room Air Estimated: 179.81Heart Rate: 59 bpm Pressure +-----+ --- + !Site !Pressure ! +-----+ -------- (more content not included)... [facility] Work Phone: [facility] Work Phone: Catheterization and angiogra phy procedure details panelOrdered By: Unknown Result on 06-19-2021 [facility] Basic Metabolic Panelon 11- Anion gap [Moles/Vol] 10 mmol/L 9 - 17 mmol/L [facility] Calcium [Mass/Vol] 9.1 mg/dL 8.6 - 10. 4 mg/dL [facility] Chloride [Moles/Vol] 104 mmol/L 98 - 10 7 mmol/L [facility] CO2 [Moles/Vol] 25 mmol/L 20 - 31 mmol/L [facility] Creatinine [Mass/Vol] 0.65 mg/dL 0.50 - 0.90 mg/dL [facility] GFR >60 >60 mL/min [facility] GFR Non- >60 >60 mL/min [facility] Glucose [Mass/Vol] 94 mg/dL 70 - 99 mg/dL [facility] Potassium [Moles/Vol] 4.0 mmol/L 3.7 - 5.3 mmol/L [facility] Sodium [Moles/Vol] 139 mmol/L 135 - 144 mmol/L [facility] Urea nitrogen (BldV) [Mass/Vol] 8 mg/dL 6 - 20 mg/dL [facility] Urea nitrogen/Creatinine (Bld) [Mass ratio] 12 [facility] CBC Auto Differentialon 05-19 Absolute Eos # 0.08 [facility] th Absolute Immature Granulocyte <0.03 [facility] Absolute Lymph # 1.74 [facility] He alth Absolute [place] # 0.38 [facility] Basophils (Bld) [#/Vol] 0.05 10*3/uL [facility] Basophils/100 WBC (Bld) 1 % 0 - 2 % [facility] Differential Type NOT REPORTED [facility] Eosinophils/100 WBC (Bld) 1 % 1 - 4 % [facility] Hematocrit (Bld) [Volume fraction] 37.4 % 36.3 - 47.1 % [facility] Hemoglobin.gastrointest inal spec 1 Ql (Stl) 12.4 g/dL 11.9 - 15.1 g/dL [facility] Immature granulocytes/100 WBC (Bld) 0 % 0 [facility] Lymphocytes/100 WBC (Bld) 29 % 24 - 43 % [facility] MCH (RBC) [Entitic mass] 29.8 pg 25.2 - 33.5 pg [facility] MCHC (RBC) [Mass/Vol] 33.2 g/dL 28.4 - 34.8 g/dL [facility] MCV (RBC) [Entitic vol] 89.9 fL 82.6 - 102.9 fL [facility] Monocytes/100 WBC (Bld) 6 % 3 - 12 % [facility] NRBC Automated 0.0 0.0 per 100 WBC [facility] Platelet distribution width (Bld) [Ratio] 11.9 % 11.8 - 14.4 % [facility] Platelet Estimate NOT REPORTED [facility] Platelet mean volume (Bld) [Entitic vol] 9.4 fL 8.1 - 13.5 fL [facility] Platelets (Bld) [#/Vol] 274 10*3/uL [facility] RBC (Bld) [#/Vol] 4.16 10*6/uL 3.95 - 5.11 m/uL [facility] RBC (Bld) [#/Vol] NOT REPORTED [facility] Segmented neutrophils/100 WBC (Bld) 63 % 36 - 65 % [facility] Segs Absolute 3.76 [facility] WBC (Bld) [#/Vol] 6.0 10*3/uL [facility] WBC (Bld) [#/Vol] NOT REPORTED [facility] Laboratory - Chemistry and C hemistry - challengeon 06-06-2021 GFR/1.73 sq M.predicted MDRD (S/P/Bld) [Vol rate/Area] [facility] Comment on above: Average GFR for 40-4 9 years old: 99 mL/min/1.73sq m Chronic Kidney Disease: <60 mL/min/1.73sq m Kidney failure: <15 mL/min/1.73sq m eGFR calculated using average adult body mass. Additional eGFR calculator available at: http://www.[employer]obe[employer]e/multiple_crcl_2012.htm Stage 1: Some kidney damage normal GFR Stage 2: Mild kidney damage GFR 60-89 Stage 3: Moderate kidney damage GFR 30-59 Stage 4: Severe kidney damage GFR 15-29 Stage 5: Severe kidney damage GFR <15 ESRD - chronic treatment by dialysis or transplant Troponinon 06-06-2021 Troponin Interp NOT REPORTED [facility] Troponin T NOT REPORTED <0.03 ng/mL [facility] Troponin, High Sensitivity <6 0 - 14 ng/L [facility] Comment on above: High Sensitivity Troponin values cannot be compared with other Troponin methodologies. Patients with high levels of Biotin oral intake (i.e >5mg/day) may have falsely decreased Troponin levels. Samples collected within 8 hours of biotin intake may require additional information for diagnosis. [facility] Troponin Interp NOT REPORTED [facility] Troponin T NOT REPORTED <0.03 ng/mL [facility] Troponin, High Sensitivity <6 0 - 14 ng/L [facility] Comment on above: High Sensitivity Troponin values cannot be compared with other Troponin methodologies. Patients with high levels of Biotin oral intake (i.e >5mg/day) may have falsely decreased Troponin levels. Samples collected within 8 hours of biotin intake may require additional information for diagnosis. [facility] XR CHEST PORTABLEon 06-06-20 No acute process. [facility] EXAMINATION: ONE XRAY VIEW OF THE CHEST 06/06/2021 10:04 am COMPARISON: June 17, 2020 HISTORY: ORDERING SYSTEM PROVIDED HISTORY: dizziness TECHNOLOGIST PROVIDED HISTORY: dizziness FINDINGS: The lungs are without acute focal process. There is no effusion or pneumothorax. The cardiomediastinal silhouette is without acute process. The osseous structures are without acute process. [facility] Sal Mena DO - 06/06/2021 EXAMINATION: ONE XRAY VIEW OF THE CHEST 06/06/2021 10:04 am COMPARISON: June 17, 2020 HISTORY: ORDERING SYSTEM PROVIDED HISTORY: dizziness TECHNOLOGIST PROVIDED HISTORY: dizziness FINDINGS: The lungs are without acute focal process. There is no effusion or pneumothorax. The cardiomediastinal silhouette is without acute process. The osseous structures are without acute process. IMPRESSION: No acute process. [facility] Work Phone: Radiology Study observation (narrative) [email or web address] Work Phone: XR CHEST PORTABLEOrdered By: Sal Mena on 06-06-2021 [facility] Phone: XR SHOULDER LEFT (MIN 2 VIEW S)on 06-06-2021 No acute findings. [facility] EXAMINATION: XRAY VIEWS OF THE LEFT SHOULDER 06/06/2021 11:10 am COMPARISON: None. HISTORY: ORDERING SYSTEM PROVIDED HISTORY: pain TECHNOLOGIST PROVIDED HISTORY: pain FINDINGS: No fracture, dislocation, or suspicious osseous lesion. [facility] Alvino Edgar - 06/06/2021 EXAMINATION: XRAY VIEWS OF THE LEFT SHOULDER 06/06/2021 11:10 am COMPARISON: None. HISTORY: ORDERING SYSTEM PROVIDED HISTORY: pain TECHNOLOGIST PROVIDED HISTORY: pain FINDINGS: No fracture, dislocation, or suspicious osseous lesion. IMPRESSION: No acute findings. [facility] Work Phone: Radiology Study observation (narrative) [email or web address] Work Phone: XR SHOULDER LEFT (MIN 2 VIEW S)Ordered By: Alvino Edgar on 06-06-2021 [facility] Phone: CT ABDOMEN PELVIS WO CONTRAS T Additional Contrast? NoneOrdered By: Ruiz Romero on 05-22-2021 Negative nephrolithi asis or uropathy. No acute inflammatory process or bowel obstruction. [facility] Phone: EXAMINATION: CT OF T HE ABDOMEN [...] discectomy and fusion. Pedicle screws at L5-S1. [facility] Phone: Ben[place], Mhpn Incoming Radiant Results From [facility] - 05/22/2021 6:45 PM EDT EXAMINATION: CT [...] No acute inflammatory process or bowel obstruction. [facility] Phone: [facility] Phone: Microscopic UrinalysisOrdere d By: Ruiz Romero on 05-22-2021 - [employer] [facility] Phone: Amorphous, UA NOT REPORTED None [facility] Work Phone: Bacteria, UA NOT REPORTED None [employer] Work Phone: Casts UA NOT REPORTED /LPF [employer] [facility] Phone: Crystals, UA NOT REPORTED None /HPF [employer] Work Phone: Epithelial Cells UA 0 TO 2 [facility] Phone: Mucus, UA NOT REPORTED None [facility] Phone: Other Observations UA NOT REPORTED NOT REQ. [facility] Work Phone: RBC, UA None [facility] Work Phone: Renal Epithelial, UA NOT REPORTED 0 /HPF [facility] Work Phone: Trichomonas, UA NOT REPORTED None [facility] Work Phone: WBC, UA None [facility] Work Phone: Yeast, UA NOT REPORTED None [facility] Work Phone: [facility] Work Phone: Urinalysis Reflex to Culture Ordered By: Ruiz Romero on 05-22-2021 Bilirubin Urine Negative NEGATIVE [facility] Work Phone: Color, UA Yellow Yellow [facility] Work Phone: Glucose, Ur Negative NEGATIVE [facility] Work Phone: Interpretation and review of laboratory results Abnormal [facility] Work Phone: Ketones Ql (U) Negative NEGATIVE [facility] Work Phone: Leukocyte esterase Test strip Ql (U) Negative NEGATIVE [facility] Work Phone: Nitrite, Urine Negative NEGATIVE [facility] Work Phone: pH, UA 6.5 [facility] Work Phone: Protein, UA Negative NEGATIVE [facility] Work Phone: Specific Ramona, UA 1.010 [facility] Work Phone: Turbidity UA Clear Clear [facility] Work Phone: Urinalysis Comments NOT REPORTED [facility] Work Phone: Urine Hgb TRACE Abnormal NEGATIVE [facility] Work Phone: Urobilinogen, Urine Normal Normal [facility] Work Phone: [facility] Work Phone: Laboratory - Microbiology an d Antimicrobial susceptibilityOrdered By: Ena Fung on 05-08-2021 SARS-CoV-2 (COVID-19) RNA FAUSTINA+probe Ql (Resp) Not detected (Not Detected ) [facility] Work Phone: Comment on above: Note: This nucleic a deepti amplification test was developed and itsperformance characteristics determined by [facility]. Nucleic acid amplification tests include RT-PCR and TMA. This test has not been FDA cleared orapproved. This test has been authorized by FDA under anEmergency Use Authorization (EUA). This test is onlyauthorized for the duration of time the declaration thatcircumstances exist justifying the authorization of theemergency use of in vitro diagnostic tests for detection [id number] virus and/or diagnosis of COVID-19 infectionunder section [...] (COVID-19) RNA FAUSTINA+probe Ql (Unsp spec) Performed [facility] Work Phone: Laboratory - Microbiology an d Antimicrobial susceptibilityOrdered By: Veronica Renteria on 03-20-2021 SARS-CoV-2 (COVID-19) RNA FAUSTINA+probe Ql (Resp) Not detected (Not Detected ) [facility] Work Phone: Comment on above: Note: This nucleic a deepti amplification test was developed and itsperformance characteristics determined by [facility]. Nucleic acid amplification tests include RT-PCR and TMA. This test has not been FDA cleared orapproved. This test has been authorized by FDA under anEmergency Use Authorization (EUA). This test is onlyauthorized for the duration of time the declaration thatcircumstances exist justifying the authorization of theemergency use of in vitro diagnostic tests for detection [id number] virus and/or diagnosis of COVID-19 infectionunder section [...] Mild lateral malleol ar soft tissue swelling. [employer] Phone: EXAMINATION: THREE X RAY VIEWS OF THE RIGHT ANKLE; THREE XRAY VIEWS OF THE RIGHT FOOT 01/29/2021 6:44 am COMPARISON: 02/07/2007. HISTORY: ORDERING SYSTEM PROVIDED HISTORY: Ankle pain. Injury. TECHNOLOGIST PROVIDED HISTORY: Ankle pain. Injury. FINDINGS: No fracture, dislocation or joint abnormality. Bone density is normal. Mild soft tissue swelling over the lateral malleolus. Process Relations Phone: [place], pn Incoming Radiant Results From [facility] - 01/29/2021 7:24 AM EDT EXAMINATION: THREE [...] IMPRESSION: Mild lateral malleolar soft tissue swelling. Process Relations Phone: Process Relations Phone: Basic Metabolic PanelOrdered By: Erna Osman on 01-09-2021 Anion gap [Moles/Vol] 9 mmol/L 9 - 17 mmol/L [employer] Phone: Calcium [Mass/Vol] 9.3 mg/dL 8.6 - 10. 4 mg/dL [employer] Phone: Chloride [Moles/Vol] 107 mmol/L 98 - 10 7 mmol/L [employer] Phone: CO2 [Moles/Vol] 24 mmol/L 20 - 31 mmol/L Process [employer] Phone: Creatinine [Mass/Vol] 0.71 mg/dL 0.50 - 0.90 mg/dL Process Relations Phone: GFR >60 >60 mL/min [employer] Phone: GFR Non- >60 >60 mL/min Process Relations Phone: Glucose [Mass/Vol] 100 mg/dL High 70 - 99 mg/dL Process [employer] Phone: Interpretation and review of laboratory results Abnormal [employer] Phone: Potassium [Moles/Vol] 3.7 mmol/L 3.7 - 5.3 mmol/L [employer] Phone: Sodium [Moles/Vol] 140 mmol/L 135 - 144 mmol/L [employer] Phone: Urea nitrogen (BldV) [Mass/Vol] 5 mg/dL Low 6 - 20 mg/dL [employer] Phone: Urea nitrogen/Creatinine (Bld) [Mass ratio] 7 Low Process [employer] Phone: Process Relations Phone: CBC With Auto DifferentialOr dered By: Erna Osman on 01-09-2021 Absolute Eos # 0.10 [employer] Work Phone: Absolute Immature Granulocyte <0.03 [employer] Work Phone: Absolute Lymph # 2.48 [employer] [facility] Work Phone: Absolute [place] # 0.48 [email or web address].commanuela Dana [facility] Work Phone: Basophils (Bld) [#/Vol] 0.04 10*3/uL [employer] Work Phone: Basophils/100 WBC (Bld) 1 % 0 - 2 % M [employer] Work Phone: Differential Type NOT REPORTED [employer] Phone: Eosinophils/100 WBC (Bld) 1 % 1 - 4 % Process [employer] Phone: Hematocrit (Bld) [Volume fraction] 34.7 % Low 36.3 - 47.1 % Process Relations Phone: Hemoglobin.gastrointest inal spec 1 Ql (Stl) 11.4 g/dL Low 11.9 - 15.1 g/dL [employer] Work Phone: Immature granulocytes/100 WBC (Bld) 0 % 0 Process [employer] Phone: Interpretation and review of laboratory results Abnormal [employer] Phone: Lymphocytes/100 WBC (Bld) 34 % 24 - 43 % [employer] Phone: MCH (RBC) [Entitic mass] 29.8 pg 25.2 - 33.5 pg [employer] Work Phone: MCHC (RBC) [Mass/Vol] 32.9 g/dL 28.4 - 34.8 g/dL [employer] Phone: MCV (RBC) [Entitic vol] 90.6 fL 82.6 - 102.9 fL [employer] Phone: Monocytes/100 WBC (Bld) 7 % 3 - 12 % M [employer] Work Phone: NRBC Automated 0.0 0.0 per 100 WBC [facility] Phone: Platelet distribution width (Bld) [Ratio] 12.2 % 11.8 - 14.4 % [employer] Phone: Platelet Estimate NOT REPORTED [employer] Phone: Platelet mean volume (Bld) [Entitic vol] 10.1 fL 8.1 - 13.5 fL [employer] Phone: Platelets (Bld) [#/Vol] 282 10*3/uL [employer] Phone: RBC (Bld) [#/Vol] 3.83 10*6/uL Low 3.95 - 5.11 m/uL [employer] Phone: RBC (Bld) [#/Vol] NOT REPORTED [employer] Phone: Segmented neutrophils/100 WBC (Bld) 57 % 36 - 65 % Process Relations Phone: Segs Absolute 4.24 [employer] Work Phone: WBC (Bld) [#/Vol] 7.4 10*3/uL [employer] Phone: WBC (Bld) [#/Vol] NOT REPORTED Process [employer] Phone: Process Relations Phone: Laboratory - Chemistry and C hemistry - challengeOrdered By: Erna Osman on 01-09-2021 GFR/1.73 sq M.predicted MDRD (S/P/Bld) [Vol rate/Area] [employer] Phone: Comment on above: Average GFR for [...] 8 mmol/L Low 9 - 17 mmol/L [employer] Phone: Calcium [Mass/Vol] 8.7 mg/dL 8.6 - 10. 4 mg/dL [employer] Phone: Chloride [Moles/Vol] 105 mmol/L 98 - 10 7 mmol/L [employer] Phone: CO2 [Moles/Vol] 27 mmol/L 20 - 31 mmol/L [employer] Phone: Creatinine [Mass/Vol] 0.84 mg/dL 0.50 - 0.90 mg/dL [employer] Phone: GFR >60 >60 mL/min [employer] Phone: GFR Non- >60 >60 mL/min [employer] Phone: Glucose [Mass/Vol] 131 mg/dL High 70 - 99 mg/dL [employer] Phone: Interpretation and review of laboratory results Abnormal [employer] Phone: Potassium [Moles/Vol] 3.0 mmol/L Low 3.7 - 5.3 mmol/L [employer] Phone: Sodium [Moles/Vol] 140 mmol/L 135 - 144 mmol/L [employer] Phone: Urea nitrogen (BldV) [Mass/Vol] 8 mg/dL 6 - 20 mg/dL [employer] Phone: Urea nitrogen/Creatinine (Bld) [Mass ratio] 10 [employer] Work Phone: [employer] Work Phone: CBC auto differentialOrdered By: Alvino Zavala on 01-03-2021 Absolute Eos # 0.09 [facility] Work Phone: Absolute Immature Granulocyte <0.03 [employer] Work Phone: Absolute Lymph # 2.19 [facility] Work Phone: Absolute [place] # 0.62 [facility] Work Phone: Basophils (Bld) [#/Vol] 0.04 10*3/uL [employer] Work Phone: Basophils/100 WBC (Bld) 1 % 0 - 2 % [facility] Work Phone: Differential Type NOT REPORTED Process Relations Phone: Eosinophils/100 WBC (Bld) 1 % 1 - 4 % [employer] Work Phone: Hematocrit (Bld) [Volume fraction] 32.6 % Low 36.3 - 47.1 % [employer] Phone: Hemoglobin.gastrointest inal spec 1 Ql (Stl) 11.3 g/dL Low 11.9 - 15.1 g/dL [employer] Phone: Immature granulocytes/100 WBC (Bld) 0 % 0 [employer] Work Phone: Interpretation and review of laboratory results Abnormal [employer] Phone: Lymphocytes/100 WBC (Bld) 34 % 24 - 43 % [employer] Phone: MCH (RBC) [Entitic mass] 30.1 pg 25.2 - 33.5 pg [employer] Phone: MCHC (RBC) [Mass/Vol] 34.7 g/dL 28.4 - 34.8 g/dL [employer] Phone: MCV (RBC) [Entitic vol] 86.9 fL 82.6 - 102.9 fL [employer] Work Phone: Monocytes/100 WBC (Bld) 10 % 3 - 12 % [facility] Work Phone: NRBC Automated 0.0 0.0 per 100 WBC Process Relations Phone: Platelet distribution width (Bld) [Ratio] 11.5 % Low 11.8 - 14.4 % [facility] Phone: Platelet Estimate NOT REPORTED [facility] Phone: Platelet mean volume (Bld) [Entitic vol] 10.1 fL 8.1 - 13.5 fL [employer] Phone: Platelets (Bld) [#/Vol] 286 10*3/uL [facility] Phone: RBC (Bld) [#/Vol] 3.75 10*6/uL Low 3.95 - 5.11 m/uL [facility] Phone: RBC (Bld) [#/Vol] NOT REPORTED [facility] Phone: Segmented neutrophils/100 WBC (Bld) 54 % 36 - 65 % Process Relations Phone: Segs Absolute 3.45 [employer] Work Phone: WBC (Bld) [#/Vol] 6.4 10*3/uL [employer] Work Phone: WBC (Bld) [#/Vol] NOT REPORTED Process Relations Phone: [employer] Work Phone: EKG Rhythm StripOrdered By: Unknown Result on 01-03-2021 HR 62 [employer] Work Phone: Process Relations Phone: re-labeled to Sinus Rhythm [employer] Phone: Process Relations Phone: re-labeled to Sinus Rhythm [employer] Phone: Process Relations Phone: re-labeled to Sinus Rhythm [employer] Phone: Process Relations Phone: EsophagogastroduodenoscopyOr dered By: Alvino Zavala on 01-03-2021 No dictation [employer] Phone: Process Relations Phone: Laboratory - Chemistry and C hemistry - challengeOrdered By: Alvino Zavala on 01-03-2021 GFR/1.73 sq M.predicted MDRD (S/P/Bld) [Vol rate/Area] Process Relations Phone: Comment on above: Average GFR for 40-4 9 years old: 99 mL/min/1.73sq m Chronic Kidney Disease: <60 mL/min/1.73sq m Kidney failure: <15 mL/min/1.73sq m eGFR calculated using average adult body mass. Additional eGFR calculator available at: http://www.[employer]obe[employer]e/multiple_crcl_2012.htm Stage 1: Some kidney damage normal GFR Stage 2: Mild kidney damage GFR 60-89 Stage 3: Moderate kidney damage GFR 30-59 Stage 4: Severe kidney damage GFR 15-29 Stage 5: Severe kidney damage GFR <15 ESRD - chronic treatment by dialysis or transplant MagnesiumOrdered By: Erna Osman on 01-03-2021 Magnesium [Mass/Vol] 2.3 mg/dL 1.6 - 2 .6 mg/dL [employer] Phone: Process [employer] Phone: Occult Blood ScreenOrdered B y: Alvino [...] NOT REPORTED [facility] Work Phone: [facility] Work Phone: COVID-19, RapidOrdered By: Mignon Zavala on 01-02-2021 SARS-CoV-2 (COVID-19) RNA FAUSTINA+probe Ql (Unsp spec) Not detected Not Detected [facility] Work Phone: Comment on [...] management decisions. Fact sheet for Healthcare Providers: https://www.fda.gov/media/144599/download Fact sheet for Patients: https://www.Fanwards.gov/media/221699/download Methodology: Isothermal Nucleic Acid Amplification Specimen Description .NASOPHARYNGEAL SWAB [facility] Phone: Process Relations Phone: EKG Rhythm StripOrdered By: Unknown Result on 01-02-2021 re-labeled to Sinus Rhythm ks Process Relations Phone: [employer] Work Phone: PotassiumOrdered By: Janae Parker on 01-02-2021 Interpretation and review of laboratory results Abnormal [employer] Phone: Potassium [Moles/Vol] 2.8 mmol/L Critically low 3.7 - 5.3 mmol/L [facility] Phone: [facility] Work Phone: CBC auto differentialOrdered By: Olaf Pineda on 01-01-2021 Absolute Eos # 0.05 [facility] Work Phone: Absolute Immature Granulocyte <0.03 [facility] Work Phone: Absolute Lymph # 2.24 [facility] Work Phone: Absolute [place] # 0.64 [facility] Work Phone: Basophils (Bld) [#/Vol] 0.04 10*3/uL [facility] Work Phone: Basophils/100 WBC (Bld) 1 % 0 - 2 % M [facility] Work Phone: Differential Type NOT REPORTED [facility] Phone: Eosinophils/100 WBC (Bld) 1 % 1 - 4 % [facility] Work Phone: Hematocrit (Bld) [Volume fraction] 32.7 % Low 36.3 - 47.1 % [facility] Work Phone: Hemoglobin.gastrointest inal spec 1 Ql (Stl) 11.6 g/dL Low 11.9 - 15.1 g/dL Process [employer] Phone: Immature granulocytes/100 WBC (Bld) 0 % 0 [employer] Phone: Interpretation and review of laboratory results Abnormal [employer] Phone: Lymphocytes/100 WBC (Bld) 30 % 24 - 43 % Process [employer] Phone: MCH (RBC) [Entitic mass] 30.1 pg 25.2 - 33.5 pg [employer] Phone: MCHC (RBC) [Mass/Vol] 35.5 g/dL High 28.4 - 34.8 g/dL [employer] Phone: MCV (RBC) [Entitic vol] 84.7 fL 82.6 - 102.9 fL [employer] Phone: Monocytes/100 WBC (Bld) 9 % 3 - 12 % M [employer] Phone: NRBC Automated 0.0 0.0 per 100 WBC [employer] Phone: Platelet distribution width (Bld) [Ratio] 11.4 % Low 11.8 - 14.4 % [employer] Phone: Platelet Estimate NOT REPORTED [employer] Phone: Platelet mean volume (Bld) [Entitic vol] 10.1 fL 8.1 - 13.5 fL [employer] Phone: Platelets (Bld) [#/Vol] 281 10*3/uL [employer] Phone: RBC (Bld) [#/Vol] 3.86 10*6/uL Low 3.95 - 5.11 m/uL [employer] Phone: RBC (Bld) [#/Vol] NOT REPORTED [employer] Phone: Segmented neutrophils/100 WBC (Bld) 59 % 36 - 65 % [employer] Work Phone: Segs Absolute 4.55 [employer] Work Phone: WBC (Bld) [#/Vol] 7.5 10*3/uL [employer] Work Phone: WBC (Bld) [#/Vol] NOT REPORTED Process Relations Phone: [employer] Work Phone: Comprehensive Metabolic Pane lOrdered By: Olaf Pineda on 01-01-2021 Albumin [Mass/Vol] 4.7 g/dL 3.5 - 5.2 g/dL [employer] Phone: Albumin/Globulin [Mass ratio] 1.6 {ratio} [employer] Phone: ALP (Bld) [Catalytic activity/Vol] 99 U/L 35 - 104 U/L [employer] Phone: ALT [Catalytic activity/Vol] 21 U/L 5 - 33 U/L [employer] Phone: Anion gap [Moles/Vol] 14 mmol/L 9 - 17 mmol/L [employer] Phone: AST [Catalytic activity/Vol] 19 U/L <32 Process [employer] Phone: Bilirubin [Mass/Vol] 0.51 mg/dL 0.3 - 1 .2 mg/dL [employer] Phone: Calcium [Mass/Vol] 9.6 mg/dL 8.6 - 10. 4 mg/dL [employer] Phone: Chloride [Moles/Vol] 91 mmol/L Low 98 - 10 7 mmol/L [employer] Phone: CO2 [Moles/Vol] 27 mmol/L 20 - 31 mmol/L [employer] Phone: Creatinine [Mass/Vol] 1.17 mg/dL High 0.50 - 0.90 mg/dL [employer] Phone: Free PSA/Total PSA [Mass fraction] 7.6 g/dL 6.4 - 8.3 g/dL [employer] Phone: GFR >60 >60 mL/min [employer] Phone: GFR Non- 50 mL/min Low >60 Process [facility] Phone: Glucose [Mass/Vol] 120 mg/dL High 70 - 99 mg/dL [employer] Phone: Interpretation and review of laboratory results Abnormal [employer] Phone: Potassium [Moles/Vol] 2.2 mmol/L Critically low 3.7 - 5.3 mmol/L [employer] Phone: Sodium [Moles/Vol] 132 mmol/L Low 135 - 144 mmol/L [employer] Phone: Urea nitrogen (BldV) [Mass/Vol] 32 mg/dL High 6 - 20 mg/dL [employer] Phone: Urea nitrogen/Creatinine (Bld) [Mass ratio] 27 High [employer] Phone: Process Relations Phone: D-dimer, quantitativeOrdered By: Olaf Pineda on 01-01-2021 D-Dimer, Quant <0.27 [employer] Work Phone: Comment on above: When combined [...] more prevalent in patients with distal DVT. Process [employer] Phone: Glucose, Whole BloodOrdered By: Olaf Pineda on 01-01-2021 Glucose [Mass/Vol] 86 mg/dL 74 - 100 mg/dL [employer] Phone: Process Relations Phone: Laboratory - Chemistry and C hemistry - challengeOrdered By: Olaf Pineda on 01-01-2021 GFR/1.73 sq M.predicted MDRD (S/P/Bld) [Vol rate/Area] Process [employer] Phone: Comment on above: Average GFR for 40-4 9 years old: 99 mL/min/1.73sq m Chronic Kidney Disease: <60 mL/min/1.73sq m Kidney failure: <15 mL/min/1.73sq m eGFR calculated using average adult body mass. Additional eGFR calculator available at: http://www.untapt.Message Systems/multiple_crcl_2012.htm Stage 1: Some kidney damage normal GFR Stage 2: Mild kidney damage GFR 60-89 Stage 3: Moderate kidney damage GFR 30-59 Stage 4: Severe kidney damage GFR 15-29 Stage 5: Severe kidney damage GFR <15 ESRD - chronic treatment by dialysis or transplant MagnesiumOrdered By: Olaf Pineda on 01-01-2021 Magnesium [Mass/Vol] 2.1 mg/dL 1.6 - 2 .6 mg/dL [employer] Phone: Process Relations Phone: No Panel InformationOrdered By: Olaf Pineda on 01-01-2021 Chest: 1. No evidenc e for acute pulmonary embolism. 2. No evidence for pneumonia. Abdomen pelvis: 1. No acute infective or inflammatory process. 2. No bowel obstruction. 3. Postsurgical changes in lumbar spine with L4-5 and L5-S1 fusion. [employer] Work Phone: EXAMINATION: CT OF T HE [...] superficial soft tissues show no significant abnormalities. Process Relations Phone: [place], pn Incoming Radiant Results From [facility] - 01/01/2021 2:03 PM EDT EXAMINATION: CT [...] lumbar spine with L4-5 and L5-S1 fusion. Process Relations Phone: Process Relations Phone: POCT glucoseOrdered By: Nicanor Schwab on 01-01-2021 Glucose [Mass/Vol] 86 mg/dL [employer] Phone: Interpretation and review of laboratory results Normal Process Relations Phone: QC OK? y Process Relations Phone: Process Relations Phone: TroponinOrdered By: Olaf Pineda on 01-01-2021 Troponin Interp NOT REPORTED [employer] Work Phone: Troponin T NOT REPORTED <0.03 ng/mL [employer] Phone: Troponin, High Sensitivity <6 0 - 14 ng/L [employer] Phone: Comment on above: High Sensitivity Troponin values cannot be compared with other Troponin methodologies. Patients with high levels of Biotin oral intake (i.e >5mg/day) may have falsely decreased Troponin levels. Samples collected within 8 hours of biotin intake may require additional information for diagnosis. Process [employer] Phone: VL DUP LOWER EXTREMITY VENOU S BILATERALOrdered By: Olaf Pineda on 01-01-2021 [place], pn Incoming Cardio Results From [facility] - 01/01/2021 5:27 PM EDT [facility] Vascular Lower Extremities DVT Study Procedure Patient Name ADRIÁN Date of Study 01/01/2021 MIKE N Date of 1975 Gender Female Age 45 year(s) Race Room Number 12 Corporate ID [id number] # Patient Acct [id number] # MR # [id number] [employer] Back Tender Crystal Wilhelm RVT Interpreting Physician Aman Haas [...] ! + + (more content not included)... Process Relations Phone: Process Relations Phone: Basic Metabolic Panel w/ Ref golden to MGOrdered By: Santhosh Schwab on 11-22-2020 Anion gap [Moles/Vol] 8 mmol/L Low 9 - 17 mmol/L [employer] Phone: Calcium [Mass/Vol] 9.3 mg/dL 8.6 - 10. 4 mg/dL [employer] Phone: Chloride [Moles/Vol] 102 mmol/L 98 - 10 7 mmol/L [employer] Phone: CO2 [Moles/Vol] 28 mmol/L 20 - 31 mmol/L [employer] Phone: Creatinine [Mass/Vol] 0.64 mg/dL 0.50 - 0.90 mg/dL [employer] Phone: GFR >60 >60 mL/min [employer] Phone: GFR Non- >60 >60 mL/min [facility] Phone: Glucose [Mass/Vol] 96 mg/dL 70 - 99 mg/dL [employer] Phone: Interpretation and review of laboratory results Abnormal [employer] Phone: Potassium [Moles/Vol] 3.2 mmol/L Low 3.7 - 5.3 mmol/L [employer] Phone: Sodium [Moles/Vol] 138 mmol/L 135 - 144 mmol/L [employer] Phone: Urea nitrogen (BldV) [Mass/Vol] 14 mg/dL 6 - 20 mg/dL [employer] Phone: Urea nitrogen/Creatinine (Bld) [Mass ratio] 22 High [employer] Phone: CBC Auto DifferentialOrdered By: Santhosh Schwab on 11-22-2020 Absolute Eos # 0.04 [employer] Work Phone: Absolute Immature Granulocyte 0.16 Process Relations Phone: Absolute Lymph # 3.02 [employer] [facility] Work Phone: Absolute [place] # 1.38 High [facility] Work Phone: Basophils (Bld) [#/Vol] 10*3/uL M [employer] Work Phone: Basophils/100 WBC (Bld) 0 % 0 - 2 % M [employer] Work Phone: Differential Type NOT REPORTED [employer] Work Phone: Eosinophils/100 WBC (Bld) 0 % Low 1 - 4 % [employer] Work Phone: Hematocrit (Bld) [Volume fraction] 38.5 % 36.3 - 47.1 % [employer] Work Phone: Hemoglobin.gastrointest inal spec 1 Ql (Stl) 13.2 g/dL 11.9 - 15.1 g/dL [employer] Work Phone: Immature granulocytes/100 WBC (Bld) 1 % High 0 [employer] Work Phone: Interpretation and review of laboratory results Abnormal [employer] Phone: Lymphocytes/100 WBC (Bld) 15 % Low 24 - 43 % [employer] Work Phone: MCH (RBC) [Entitic mass] 30.7 pg 25.2 - 33.5 pg [employer] Work Phone: MCHC (RBC) [Mass/Vol] 34.3 g/dL 28.4 - 34.8 g/dL [employer] Phone: MCV (RBC) [Entitic vol] 89.5 fL 82.6 - 102.9 fL [employer] Work Phone: Monocytes/100 WBC (Bld) 7 % 3 - 12 % M [employer] Work Phone: NRBC Automated 0.0 0.0 per 100 WBC [employer] Phone: Platelet distribution width (Bld) [Ratio] 12.2 % 11.8 - 14.4 % [employer] Phone: Platelet Estimate NOT REPORTED [employer] Phone: Platelet mean volume (Bld) [Entitic vol] 9.8 fL 8.1 - 13.5 fL [employer] Phone: Platelets (Bld) [#/Vol] 352 10*3/uL [employer] Phone: RBC (Bld) [#/Vol] 4.30 10*6/uL 3.95 - 5.11 m/uL [employer] Phone: RBC (Bld) [#/Vol] NOT REPORTED [employer] Phone: Segmented neutrophils/100 WBC (Bld) 77 % High 36 - 65 % [employer] Work Phone: Segs Absolute 15.76 High [employer] Work Phone: WBC (Bld) [#/Vol] 20.4 10*3/uL High [employer] Work Phone: WBC (Bld) [#/Vol] NOT REPORTED Process Relations Phone: CT SOFT TISSUE NECK W CONTRA STOrdered By: Santhosh Schwab on 11-22-2020 No acute abnormality of the soft tissue structures of the neck. [employer] Phone: EXAMINATION: CT OF T HE NECK [...] aggressive appearing lytic or blastic bony lesion. [employer] Work Phone: [place], pn Incoming Radiant Results From [employer] - 11/22/2020 1:37 PM EDT EXAMINATION: CT [...] the soft tissue structures of the neck. [employer] Phone: Laboratory - Chemistry and C hemistry - challengeOrdered By: Santhosh Schwab on 11-22-2020 GFR/1.73 sq M.predicted MDRD (S/P/Bld) [Vol rate/Area] [employer] Phone: Comment on above: Average GFR for 40-4 9 years old: 99 mL/min/1.73sq m Chronic Kidney Disease: <60 mL/min/1.73sq m Kidney failure: <15 mL/min/1.73sq m eGFR calculated using average adult body mass. Additional eGFR calculator available at: http://www.untapt.Message Systems/multiple_crcl_2012.htm Stage 1: Some kidney damage normal GFR Stage 2: Mild kidney damage GFR 60-89 Stage 3: Moderate kidney damage GFR 30-59 Stage 4: Severe kidney damage GFR 15-29 Stage 5: Severe kidney damage GFR <15 ESRD - chronic treatment by dialysis or transplant MagnesiumOrdered By: Santhosh Schwab on 11-22-2020 Magnesium [Mass/Vol] 2.2 mg/dL 1.6 - 2 .6 mg/dL [employer] Phone: COVID-19on 09-20-2020 Interpretation and review of laboratory results Abnormal [employer] Phone: SARS-CoV-2 [employer] Phone: SARS-CoV-2 DETECTED Abnormal Not Detected [employer] Phone: Comment on above: The specimen is POSITIVE for SARS-Cov-2, the novel coronavirus associated with COVID-19. Pedro SARS-CoV-2 for use on the [employer]0/88[employer] is a real-time RT-PCR test intended [...] this assay. Fact sheet for Healthcare Providers: https://www.fda.gov/media/600958/download Fact sheet for Patients: https://www.fda.gov/media/448884/download METHODOLOGY: RT-PCR Results reported to the appropriate Health Department Source .THROAT SWAB [employer] Phone: Amylaseon 09-19-2020 Amylase [Catalytic activity/Vol] 37 U/L 28 - 100 U/L [employer] Phone: CBC Auto Differentialon Basophils (Bld) [#/Vol] 0.09 10*3/uL [employer] Phone: Basophils/100 WBC (Bld) 1 % 0 - 2 % M [employer] Phone: Differential Type NOT REPORTED [employer] Phone: Eosinophils (Bld) [#/Vol] 0.09 10*3/uL [employer] Phone: Eosinophils/100 WBC (Bld) 1 % 1 - 4 % [employer] Phone: Erythrocyte distribution width (RBC) [Ratio] 11.9 % 11.8 - 14.4 % Process Relations Phone: Hematocrit (Bld) [Volume fraction] 42.3 % 36.3 - 47.1 % Process [employer] Phone: Hemoglobin (Bld) [Mass/Vol] 13.8 g/dL 11.9 - 15.1 g/dL [employer] Phone: Immature granulocytes (Bld) [#/Vol] 0.03 10*3/uL [facility] Phone: Immature granulocytes (Bld) [#/Vol] 0 % 0 Process Relations Phone: Interpretation and review of laboratory results Abnormal [employer] Phone: Lymphocytes (Bld) [#/Vol] 2.38 10*3/uL [facility] Phone: Lymphocytes/100 WBC (Bld) 26 % 24 - 43 % [facility] Phone: MCH (RBC) [Entitic mass] 29.7 pg 25.2 - 33.5 pg [employer] Phone: MCHC (RBC) [Mass/Vol] 32.6 g/dL 28.4 - 34.8 g/dL [employer] Phone: MCV (RBC) [Entitic vol] 91.2 fL 82.6 - 102.9 fL [facility] Phone: Monocytes (Bld) [#/Vol] 0.50 10*3/uL [facility] Phone: Monocytes/100 WBC (Bld) 6 % 3 - 12 % [facility] Phone: Platelet mean volume (Bld) [Entitic vol] 10.1 fL 8.1 - 13.5 fL [facility] Phone: Platelets (Bld) [#/Vol] NOT REPORTED [facility] Phone: Platelets (Bld) [#/Vol] 287 10*3/uL [facility] Phone: RBC (Bld) [#/Vol] 4.64 10*6/uL 3.95 - 5.11 m/uL [employer] Work Phone: RBC morphology finding Nom (Bld) NOT REPORTED [employer] Work Phone: Segmented neutrophils/100 WBC (Bld) 66 % High 36 - 65 % Process Relations Phone: Segs Absolute 5.96 [employer] Work Phone: WBC (Bld) [#/Vol] 9.1 10*3/uL [employer] Work Phone: WBC (Bld) [#/Vol] 0.0 10*3/uL 0.0 per 100 WBC Process Relations Phone: WBC Morphology NOT REPORTED [employer] Work Phone: Comprehensive Metabolic Pane misti 09-19-2020 Albumin [Mass/Vol] 4.4 g/dL 3.5 - 5.2 g/dL Process [employer] Phone: Albumin/Globulin [Mass ratio] 1.6 {ratio} [employer] Phone: ALP [Catalytic activity/Vol] 111 U/L High 35 - 104 U/L [employer] Phone: ALT [Catalytic activity/Vol] 43 U/L High 5 - 33 U/L [employer] Phone: Anion gap [Moles/Vol] 8 mmol/L Low 9 - 17 mmol/L [employer] Phone: AST [Catalytic activity/Vol] 27 U/L <32 [employer] Phone: Bilirubin Ql (U) 0.28 mg/dL Low 0.3 - 1.2 mg/dL [employer] Phone: Bun/Cre Ratio 9 [employer] Work Phone: Calcium [Mass/Vol] 9.3 mg/dL 8.6 - 10. 4 mg/dL [employer] Phone: Chloride [Moles/Vol] 103 mmol/L 98 - 10 7 mmol/L [employer] Phone: CO2 [Moles/Vol] 27 mmol/L 20 - 31 mmol/L [employer] Phone: Creatinine [Mass/Vol] 0.67 mg/dL 0.5 - 0.9 mg/dL Process Relations Phone: GFR >60 >60 mL/min [employer] Phone: GFR Non- >60 >60 mL/min Process Relations Phone: Glucose [Mass/Vol] 108 mg/dL High 70 - 99 mg/dL Process Relations Phone: Interpretation and review of laboratory results Abnormal Process Relations Phone: Potassium [Moles/Vol] 3.6 mmol/L Low 3.7 - 5.3 mmol/L Process Relations Phone: Protein [Mass/Vol] 7.2 g/dL 6.4 - 8.3 g/dL Process [employer] Phone: Sodium [Moles/Vol] 138 mmol/L 135 - 144 mmol/L Process [employer] Phone: Urea nitrogen [Mass/Vol] 6 mg/dL 6 - 20 mg/dL Process [employer] Phone: Lipaseon 09-19-2020 Lipase [Catalytic activity/Vol] 23 U/L 13 - 60 U/L Process [facility] Phone: Metabolic Panelon 09-19-2020 GFR/1.73 sq M predicted among non-blacks MDRD (S/P/Bld) [Vol rate/Area] Process Relations Phone: Comment on above: Stage 1: Some [...] body mass. Additional eGFR calculator available at: http://www.untapt.Message Systems/multiple_crcl_2012.htm Sedimentation Rateon 021 Sed Rate 11 mm 0 - 20 mm [employer] Work Phone: Urinalysis With Microscopico n 09-19-2020 Amorphous, UA NOT REPORTED None [facility] Work Phone: Bacteria, UA TRACE Abnormal None [facility] Work Phone: Bilirubin Urine Negative NEGATIVE [facility] Work Phone: Casts UA NOT REPORTED /LPF [facility] Work Phone: Color, UA YELLOW YELLOW [employer] Work Phone: Crystals, UA NOT REPORTED None /HPF [employer] Work Phone: Epithelial Cells UA 0 TO 2 [facility] Work Phone: Glucose, Ur Negative NEGATIVE [facility] Work Phone: Interpretation and review of laboratory results Abnormal [facility] Work Phone: Ketones Ql (U) Negative NEGATIVE [facility] Work Phone: Leukocyte esterase Test strip Ql (U) Negative NEGATIVE [facility] Work Phone: Mucus, UA NOT REPORTED None [facility] Work Phone: Nitrite, Urine Negative NEGATIVE [facility] Work Phone: Other Observations UA NOT REPORTED NOT REQ. M [facility] Work Phone: pH, UA 6.0 [facility] Work Phone: Protein (U) [Mass/Vol] Negative NEGATIVE [facility] Work Phone: RBC (U) [#/Vol] None [facility] Work Phone: Renal Epithelial, UA NOT REPORTED 0 /HPF [facility] Work Phone: Specific Ramona, UA 1.010 [facility] Work Phone: Trichomonas, UA NOT REPORTED None [facility] Work Phone: Turbidity UA CLEAR CLEAR [facility] [employer] Work Phone: Urinalysis Comments NOT REPORTED [facility] [employer] Work Phone: Urine Hgb Negative NEGATIVE [facility] [employer] Work Phone: Urobilinogen, Urine Normal Normal [facility] [employer] Work Phone: WBC, UA 0 TO 2 [facility] [employer] Work Phone: Yeast, UA NOT REPORTED None [facility] [employer] Work Phone: - [facility] [employer] Work Phone: Basic Metabolic Panel w/ Ref golden to MGon 08-29-2020 Anion gap [Moles/Vol] 7 mmol/L Low 9 - 17 mmol/L [facility] [employer] Work Phone: Bun/Cre Ratio 8 Low [facility] Work Phone: Calcium [Mass/Vol] 8.0 mg/dL Low 8.6 - 10. 4 mg/dL [facility] [employer] Work Phone: Chloride [Moles/Vol] 109 mmol/L High 98 - 10 7 mmol/L [facility] [employer] Work Phone: CO2 [Moles/Vol] 23 mmol/L 20 - 31 mmol/L [facility] [employer] Work Phone: Creatinine [Mass/Vol] 0.49 mg/dL Low 0.5 - 0.9 mg/dL [facility] Phone: GFR >60 >60 mL/min [employer] Phone: GFR Non- >60 >60 mL/min [facility] Phone: Glucose [Mass/Vol] 114 mg/dL High 70 - 99 mg/dL [facility] Phone: Interpretation and review of laboratory results Abnormal [facility] Phone: Potassium [Moles/Vol] 3.8 mmol/L 3.7 - 5.3 mmol/L [facility] Phone: Sodium [Moles/Vol] 139 mmol/L 135 - 144 mmol/L [facility] Phone: Urea nitrogen [Mass/Vol] 4 mg/dL Low 6 - 20 mg/dL [facility] Phone: CBC auto differentialon 08-19 Basophils (Bld) [#/Vol] 0.03 10*3/uL [facility] Phone: Basophils/100 WBC (Bld) 0 % 0 - 2 % [facility] Phone: Differential Type NOT REPORTED [facility] Phone: Eosinophils (Bld) [#/Vol] 0.08 10*3/uL [facility] Phone: Eosinophils/100 WBC (Bld) 1 % 1 - 4 % [facility] Phone: Erythrocyte distribution width (RBC) [Ratio] 12.0 % 11.8 - 14.4 % [facility] Phone: Hematocrit (Bld) [Volume fraction] 36.4 % 36.3 - 47.1 % Process Relations Phone: Hemoglobin (Bld) [Mass/Vol] 12.1 g/dL 11.9 - 15.1 g/dL [facility] Phone: Immature granulocytes (Bld) [#/Vol] 1 % High 0 [facility] Phone: Immature granulocytes (Bld) [#/Vol] 0.04 10*3/uL [facility] Phone: Interpretation and review of laboratory results Abnormal [facility] Phone: Lymphocytes (Bld) [#/Vol] 2.26 10*3/uL [facility] Phone: Lymphocytes/100 WBC (Bld) 31 % 24 - 43 % Process Relations Phone: MCH (RBC) [Entitic mass] 30.4 pg 25.2 - 33.5 pg Process Relations Phone: MCHC (RBC) [Mass/Vol] 33.2 g/dL 28.4 - 34.8 g/dL [facility] Phone: MCV (RBC) [Entitic vol] 91.5 fL 82.6 - 102.9 fL [facility] Relations Phone: Monocytes (Bld) [#/Vol] 0.55 10*3/uL [facility] Phone: Monocytes/100 WBC (Bld) 8 % 3 - 12 % M [employer] Phone: Platelet mean volume (Bld) [Entitic vol] 10.2 fL 8.1 - 13.5 fL Process [facility] Phone: Platelets (Bld) [#/Vol] NOT REPORTED [facility] Phone: Platelets (Bld) [#/Vol] 255 10*3/uL [facility] Phone: RBC (Bld) [#/Vol] 3.98 10*6/uL 3.95 - 5.11 m/uL [employer] [facility] Phone: RBC morphology finding Nom (Bld) NOT REPORTED [facility] Relations Phone: Segmented neutrophils/100 WBC (Bld) 59 % 36 - 65 % Process Relations Phone: Segs Absolute 4.30 [employer] Work Phone: WBC (Bld) [#/Vol] 7.3 10*3/uL [facility] Phone: WBC (Bld) [#/Vol] 0.0 10*3/uL 0.0 per 100 WBC Process Relations Phone: WBC Morphology NOT REPORTED [employer] Phone: Metabolic Panelon 08-29-2020 GFR/1.73 sq M predicted among non-blacks MDRD (S/P/Bld) [Vol rate/Area] Process Relations Phone: Comment on above: Average GFR for 40-4 9 years old: 99 mL/min/1.73sq m Chronic Kidney Disease: <60 mL/min/1.73sq m Kidney failure: <15 mL/min/1.73sq m eGFR calculated using average adult body mass. Additional eGFR calculator available at: http://www.GlobeImmune/multiple_crcl_2012.htm Stage 1: Some kidney damage normal GFR Stage 2: Mild kidney damage GFR 60-89 Stage 3: Moderate kidney damage GFR 30-59 Stage 4: Severe kidney damage GFR 15-29 Stage 5: Severe kidney damage GFR <15 ESRD - chronic treatment by dialysis or transplant Basic Metabolic Panel w/ Ref golden to MGon 08-28-2020 Anion gap [Moles/Vol] 9 mmol/L 9 - 17 mmol/L Process [facility] Phone: Bun/Cre Ratio 9 [employer] Phone: Calcium [Mass/Vol] 8.0 mg/dL Low 8.6 - 10. 4 mg/dL [facility] Phone: Chloride [Moles/Vol] 100 mmol/L 98 - 10 7 mmol/L [employer] [facility] Phone: CO2 [Moles/Vol] 23 mmol/L 20 - 31 mmol/L [facility] Phone: Creatinine [Mass/Vol] 0.56 mg/dL 0.5 - 0.9 mg/dL [facility] Phone: GFR >60 >60 mL/min [employer] Phone: GFR Non- >60 >60 mL/min [facility] Phone: Glucose [Mass/Vol] 100 mg/dL High 70 - 99 mg/dL [facility] Phone: Interpretation and review of laboratory results Abnormal [facility] Phone: Potassium [Moles/Vol] 3.4 mmol/L Low 3.7 - 5.3 mmol/L [facility] Phone: Sodium [Moles/Vol] 132 mmol/L Low 135 - 144 mmol/L [facility] Phone: Urea nitrogen [Mass/Vol] 5 mg/dL Low 6 - 20 mg/dL [employer] [facility] Phone: C.trachomatis N.gonorrhoeae DNAon 08-28-2020 C. trachomatis DNA FAUSTINA+probe Ql (Genital specimen) Negative NEGATIVE Process Relations Phone: Comment on above: CHLAMYDIA TRACHOMATI S [...] acid target. N. gonorrhoeae DNA Negative NEGATIVE Process Relations Phone: Comment on above: NEISSERIA GONORRHOEA E [...] alternative nucleic acid target. Specimen Description .CERVIX [employer] Phone: CBC auto differentialon 08-19-2020 Basophils (Bld) [#/Vol] 0.04 10*3/uL [employer] [facility] Phone: Basophils/100 WBC (Bld) 1 % 0 - 2 % [facility] Stories Phone: Differential Type NOT REPORTED [facility] Phone: Eosinophils (Bld) [#/Vol] 0.08 10*3/uL [employer] Phone: Eosinophils/100 WBC (Bld) 1 % 1 - 4 % Process [facility] Phone: Erythrocyte distribution width (RBC) [Ratio] 11.9 % 11.8 - 14.4 % [employer] [facility] Phone: Hematocrit (Bld) [Volume fraction] 37.0 % 36.3 - 47.1 % Process [facility] Phone: Hemoglobin (Bld) [Mass/Vol] 12.3 g/dL 11.9 - 15.1 g/dL [employer] Phone: Immature granulocytes (Bld) [#/Vol] 0 % 0 [facility] Phone: Immature granulocytes (Bld) [#/Vol] 10*3/uL [employer] Phone: Lymphocytes (Bld) [#/Vol] 1.87 10*3/uL [employer] Phone: Lymphocytes/100 WBC (Bld) 31 % 24 - 43 % Process [employer] Phone: MCH (RBC) [Entitic mass] 30.1 pg 25.2 - 33.5 pg [employer] Phone: MCHC (RBC) [Mass/Vol] 33.2 g/dL 28.4 - 34.8 g/dL [employer] Phone: MCV (RBC) [Entitic vol] 90.5 fL 82.6 - 102.9 fL [facility] Work Phone: Monocytes (Bld) [#/Vol] 0.40 10*3/uL [employer] Work Phone: Monocytes/100 WBC (Bld) 7 % 3 - 12 % M [facility] Work Phone: Platelet mean volume (Bld) [Entitic vol] 9.8 fL 8.1 - 13.5 fL [facility] Work Phone: Platelets (Bld) [#/Vol] 213 10*3/uL [facility] Work Phone: Platelets (Bld) [#/Vol] NOT REPORTED [facility] Work Phone: RBC (Bld) [#/Vol] 4.09 10*6/uL 3.95 - 5.11 m/uL [employer] Work Phone: RBC morphology finding Nom (Bld) NOT REPORTED [facility] Work Phone: Segmented neutrophils/100 WBC (Bld) 60 % 36 - 65 % [facility] Work Phone: Segs Absolute 3.71 [facility] Work Phone: WBC (Bld) [#/Vol] 6.1 10*3/uL [facility] Work Phone: WBC (Bld) [#/Vol] 0.0 10*3/uL 0.0 per 100 WBC [facility] Work Phone: WBC Morphology NOT REPORTED [facility] Work Phone: CT ABDOMEN PELVIS W IV CONTR AST Additional Contrast? Oralon 08-28-2020 [place], Mhpn Incoming Radiant Results From [facility]Pipeline/Pacs - 08/28/2020 10:01 AM EST EXAMINATION: CT [...] fluid. 3. Findings compatible with hepatic steatosis. Process Relations Phone: EXAMINATION: CT OF T HE ABDOMEN [...] been performed at L3-4, L4-5 and L5-S1. Process Relations Phone: 1. No acute inflamma tory process identified in the abdomen or pelvis. 2. Trace pleural effusions and trace pelvic free fluid. 3. Findings compatible with hepatic steatosis. Process Relations Phone: Magnesiumon 08-28-2020 Magnesium [Mass/Vol] 2.1 mg/dL 1.6 - 2 .6 mg/dL Process [employer] Phone: Metabolic Panelon 08-28-2020 GFR/1.73 sq M predicted among non-blacks MDRD (S/P/Bld) [Vol rate/Area] Process [employer] Phone: Comment on above: Stage 1: Some [...] body mass. Additional eGFR calculator available at: http://www.GlobeImmune/multiple_crcl_2012.htm Basic Metabolic Panelon -0 Anion gap [Moles/Vol] 9 mmol/L 9 - 17 mmol/L [employer] [facility] Phone: Bun/Cre Ratio 11 [employer] Work Phone: Calcium [Mass/Vol] 8.8 mg/dL 8.6 - 10. 4 mg/dL [employer] Phone: Chloride [Moles/Vol] 102 mmol/L 98 - 10 7 mmol/L [employer] Phone: CO2 [Moles/Vol] 23 mmol/L 20 - 31 mmol/L [employer] Phone: Creatinine [Mass/Vol] 0.56 mg/dL 0.5 - 0.9 mg/dL Process [facility] Phone: GFR >60 >60 mL/min [employer] Phone: GFR Non- >60 >60 mL/min [facility] Phone: Glucose [Mass/Vol] 109 mg/dL High 70 - 99 mg/dL Process [employer] Phone: Potassium [Moles/Vol] 3.8 mmol/L 3.7 - 5.3 mmol/L [employer] Phone: Sodium [Moles/Vol] 134 mmol/L Low 135 - 144 mmol/L [employer] Phone: Urea nitrogen [Mass/Vol] 6 mg/dL 6 - 20 mg/dL [employer] Phone: CBCon 08-27-2020 Erythrocyte distribution width (RBC) [Ratio] 11.9 % 11.8 - 14.4 % Process [employer] Phone: Hematocrit (Bld) [Volume fraction] 38.7 % 36.3 - 47.1 % [employer] Phone: Hemoglobin (Bld) [Mass/Vol] 13.0 g/dL 11.9 - 15.1 g/dL [employer] Phone: MCH (RBC) [Entitic mass] 30.3 pg 25.2 - 33.5 pg [employer] Phone: MCHC (RBC) [Mass/Vol] 33.6 g/dL 28.4 - 34.8 g/dL [employer] Phone: MCV (RBC) [Entitic vol] 90.2 fL 82.6 - 102.9 fL [employer] Phone: Platelet mean volume (Bld) [Entitic vol] 10.1 fL 8.1 - 13.5 fL [employer] Phone: Platelets (Bld) [#/Vol] 250 10*3/uL [employer] Phone: RBC (Bld) [#/Vol] 4.29 10*6/uL 3.95 - 5.11 m/uL [employer] Phone: WBC (Bld) [#/Vol] 0.0 10*3/uL 0.0 per 100 WBC [employer] Phone: WBC (Bld) [#/Vol] 7.3 10*3/uL [employer] Phone: CBC auto differentialon 02-0 Basophils (Bld) [#/Vol] 0.04 10*3/uL [employer] Phone: Basophils/100 WBC (Bld) 1 % 0 - 2 % M [facility] Stories Phone: Differential Type NOT REPORTED Process [employer] Phone: Eosinophils (Bld) [#/Vol] 0.07 10*3/uL [employer] Phone: Eosinophils/100 WBC (Bld) 1 % 1 - 4 % [employer] Phone: Erythrocyte distribution width (RBC) [Ratio] 11.8 % 11.8 - 14.4 % Process [employer] Phone: Hematocrit (Bld) [Volume fraction] 36.1 % Low 36.3 - 47.1 % Process [employer] Phone: Hemoglobin (Bld) [Mass/Vol] 12.2 g/dL 11.9 - 15.1 g/dL [employer] Phone: Immature granulocytes (Bld) [#/Vol] 0 % 0 [employer] Phone: Immature granulocytes (Bld) [#/Vol] 10*3/uL [employer] Phone: Interpretation and review of laboratory results Abnormal [employer] Phone: Lymphocytes (Bld) [#/Vol] 2.26 10*3/uL [employer] Phone: Lymphocytes/100 WBC (Bld) 26 % 24 - 43 % Process [employer] Phone: MCH (RBC) [Entitic mass] 30.4 pg 25.2 - 33.5 pg Process [employer] Phone: MCHC (RBC) [Mass/Vol] 33.8 g/dL 28.4 - 34.8 g/dL [employer] Phone: MCV (RBC) [Entitic vol] 90.0 fL 82.6 - 102.9 fL [employer] Phone: Monocytes (Bld) [#/Vol] 0.43 10*3/uL [employer] Phone: Monocytes/100 WBC (Bld) 5 % 3 - 12 % [facility] Stories Phone: Platelet mean volume (Bld) [Entitic vol] 9.9 fL 8.1 - 13.5 fL [employer] Phone: Platelets (Bld) [#/Vol] 225 10*3/uL [employer] Phone: Platelets (Bld) [#/Vol] NOT REPORTED [employer] Phone: RBC (Bld) [#/Vol] 4.01 10*6/uL 3.95 - 5.11 m/uL [employer] Work Phone: RBC morphology finding Nom (Bld) NOT REPORTED [employer] Work Phone: Segmented neutrophils/100 WBC (Bld) 67 % High 36 - 65 % [employer] Work Phone: Segs Absolute 5.82 [employer] Work Phone: WBC (Bld) [#/Vol] 8.6 10*3/uL [employer] Work Phone: WBC (Bld) [#/Vol] 0.0 10*3/uL 0.0 per 100 WBC [employer] Work Phone: WBC Morphology NOT REPORTED [facility] Work Phone: CT ABDOMEN PELVIS W [...] unremarkable. There is no acute osseous abnormality. Process Relations Phone: No acute abdominal o r pelvic abnormality. Hepatic steatosis. Cholecystectomy and hysterectomy. Process Relations Phone: [place], Mhpn Incoming Radiant Results From [facility] - 08/27/2020 9:01 AM EST EXAMINATION: CT [...] pelvic abnormality. Hepatic steatosis. Cholecystectomy and hysterectomy. Process [employer] Phone: Hepatic function panelon Albumin [Mass/Vol] 4.1 g/dL 3.5 - 5.2 g/dL [employer] Phone: Albumin/Globulin [Mass ratio] 1.6 {ratio} Process [employer] Phone: ALP [Catalytic activity/Vol] 95 U/L 35 - 104 U/L [employer] Phone: ALT [Catalytic activity/Vol] 35 U/L High 5 - 33 U/L [employer] Phone: AST [Catalytic activity/Vol] 27 U/L <32 [employer] Phone: Bilirubin Ql (U) 0.32 mg/dL 0.3 - 1.2 mg/dL [employer] Phone: Bilirubin, Indirect CANNOT BE CALCULATED 0 - 1 mg/dL [employer] Phone: Bilirubin.direct [Mass/Vol] mg/dL <0.31 mg/dL [employer] Phone: Globulin (S) [Mass/Vol] NOT REPORTED 1.5 - 3.8 g/dL [employer] Phone: Protein [Mass/Vol] 6.7 g/dL 6.4 - 8.3 g/dL Process [employer] Phone: Lactic acid, plasmaon 2020 Lactate [Moles/Vol] 1.2 mmol/L 0.5 - 2. 2 mmol/L [employer] Phone: Lactic Acid, Whole Blood NOT REPORTED 0.7 - 2.1 mmol/L [employer] Phone: Lipaseon 08-27-2020 Lipase [Catalytic activity/Vol] 24 U/L 13 - 60 U/L [employer] Phone: Metabolic Panelon 02-09-2021 GFR/1.73 sq M predicted among non-blacks MDRD (S/P/Bld) [Vol rate/Area] [facility] Work Phone: Comment on above: Stage 1: [...] body mass. Additional eGFR calculator available at: http://www.GlobeImmune/multiple_crcl_2012.htm Microscopic Urinalysison Amorphous, UA NOT REPORTED None [facility] Work Phone: Bacteria, UA NOT REPORTED None [facility] Work Phone: Casts UA NOT REPORTED /LPF [facility] [employer] Work Phone: Crystals, UA NOT REPORTED None /HPF [facility] Work Phone: Epithelial Cells UA 10 TO 20 [facility] [employer] Work Phone: Mucus, UA NOT REPORTED None [facility] [employer] Work Phone: Other Observations UA NOT REPORTED NOT REQ. M [facility] [employer] Work Phone: RBC (U) [#/Vol] None [facility] Work Phone: Renal Epithelial, UA NOT REPORTED 0 /HPF [facility] [employer] Work Phone: Trichomonas, UA NOT REPORTED None [facility] Work Phone: WBC, UA 0 TO 2 [facility] [employer] Work Phone: Yeast, UA NOT REPORTED None [facility] Work Phone: - [facility] Work Phone: Otheron 08-27-2020 Interpretation and review of laboratory results Abnormal [facility] Work Phone: Urinalysis Reflex to Culture on 08-27-2020 Bilirubin Urine Negative NEGATIVE [facility] Work Phone: Color, UA YELLOW YELLOW [facility] Work Phone: Glucose, Ur Negative NEGATIVE [facility] Work Phone: Interpretation and review of laboratory results Abnormal [facility] Work Phone: Ketones Ql (U) Negative NEGATIVE [facility] Work Phone: Leukocyte esterase Test strip Ql (U) Negative NEGATIVE [facility] Work Phone: Nitrite, Urine Negative NEGATIVE [facility] Work Phone: pH, UA 5.5 [facility] Work Phone: Protein (U) [Mass/Vol] Negative NEGATIVE [facility] [employer] Work Phone: Specific Ramona, UA 1.025 High [facility] [employer] Work Phone: Turbidity UA CLEAR CLEAR [facility] [employer] Work Phone: Urinalysis Comments NOT REPORTED [facility] [employer] Work Phone: Urine Hgb Negative NEGATIVE [facility] Work Phone: Urobilinogen, Urine Normal Normal [facility] [employer] Work Phone: Wet Prep, Genitalon 08-27-19 21 Direct Exam NO TRICHOMONAS SEEN [facility] [employer] Work Phone: Direct Exam NO CLUE CELLS SEEN [facility] [employer] Work Phone: Special Requests NOT REPORTED [facility] [employer] Work Phone: Specimen Description .VAGINA [facility] [employer] Work Phone: Lipid Panelon 07-05-2020 Cholesterol [Mass/Vol] 151 mg/dL <200 [facility] [place], [place] Comment on above: Cholesterol Guidelines: <200 Desirable 200-240 Borderline >240 Undesirable Cholesterol in HDL [Mass/Vol] 29 mg/dL Low >40 [place], [place] Comment on above: HDL Guidelines: <40 Undesirable 40-59 Borderline >59 Desirable Cholesterol in LDL [Mass/Vol] 47 mg/dL 0 - 130 mg/dL [place], [place] Comment on above: LDL Guidelines: <100 Desirable 100-129 Near to/above Desirable 130-159 Borderline >159 Undesirable Direct (measured) LDL and calculated LDL are not interchangeable tests. Cholesterol in VLDL [Mass/Vol] NOT REPORTED High 1 - 30 mg/dL [place] Cholesterol.total/Audelia sterol in HDL [Mass ratio] 5.2 {ratio} High <5 [place] Interpretation and review of laboratory results Abnormal [place] Triglyceride [Mass/Vol] 377 mg/dL High <150 M [place], [place] Comment on above: Triglyceride Guidelines: <150 Desirable 150-199 Borderline 200-499 High >499 Very high Based on AHA Guidelines for fasting triglyceride, April 2012. Basic Metabolic Panelon 12- Anion gap [Moles/Vol] 8 mmol/L Low 9 - 17 mmol/L [place] Bun/Cre Ratio 16 [place], [place] Calcium [Mass/Vol] 9.1 mg/dL 8.6 - 10. 4 mg/dL [place] Chloride [Moles/Vol] 105 mmol/L 98 - 10 7 mmol/L [place] CO2 [Moles/Vol] 24 mmol/L 20 - 31 mmol/L [place] Creatinine [Mass/Vol] 0.64 mg/dL 0.5 - 0.9 mg/dL [place] GFR >60 >60 mL/min [place] GFR Non- >60 >60 mL/min [place] Glucose [Mass/Vol] 99 mg/dL 70 - 99 mg/dL [place] Interpretation and review of laboratory results Abnormal [place] Potassium [Moles/Vol] 4.3 mmol/L 3.7 - 5.3 mmol/L [place] Sodium [Moles/Vol] 137 mmol/L 135 - 144 mmol/L [place] Urea nitrogen [Mass/Vol] 10 mg/dL 6 - 20 mg/dL [place] CBCon 07-04-2020 Erythrocyte distribution width (RBC) [Ratio] 11.8 % 11.8 - 14.4 % [place] Hematocrit (Bld) [Volume fraction] 37.2 % 36.3 - 47.1 % [place] Hemoglobin (Bld) [Mass/Vol] 12.5 g/dL 11.9 - 15.1 g/dL [place] MCH (RBC) [Entitic mass] 30.9 pg 25.2 - 33.5 pg [place] MCHC (RBC) [Mass/Vol] 33.6 g/dL 28.4 - 34.8 g/dL [place] MCV (RBC) [Entitic vol] 91.9 fL 82.6 - 102.9 fL [place] Platelet mean volume (Bld) [Entitic vol] 10.1 fL 8.1 - 13.5 fL [place] Platelets (Bld) [#/Vol] 289 10*3/uL [place] RBC (Bld) [#/Vol] 4.05 10*6/uL 3.95 - 5.11 m/uL [place] WBC (Bld) [#/Vol] 0.0 10*3/uL 0.0 per 100 WBC [place] WBC (Bld) [#/Vol] 6.8 10*3/uL [place] Echo 2D w doppler w color co mpleteon 07-04-2020 [facility] Transthoracic Echocardiography Report (TTE) Patient Name ADRIÁN Date of Study 07/04/2020 MIKE N Date of 1975 Gender Female Age 44 year(s) Race Room Number Height: 64 inch, 162.56 cm Corporate ID [id number] Weight: 192 pounds, 87.1 kg # Patient Acct [id number] BSA: 1.92 m^2 BMI: 32.96 # kg/m^2 MR # [id number] [employer] Back Tender Work,Sun Interpreting Physician Ronan Rodriguez Fellow Referring Nurse Practitioner Interpreting Referring Physician Nat Mora Type of Study TTE procedure:2D Echocardiogram, M-Mode, Doppler, Color Doppler. Procedure Date Date: 07/04/2020 Start: 11:51 AM Study Location: [facility] Indications:Chest pain and Palpitations. History / [...] Wall E' velocity:0.12 m/s Lateral Wall E/E':4.86 [facility] [place], [place], Mhpn Incoming Cardio Results From Cpa/Ge - 07/04/2020 6:40 PM EST [facility] Transthoracic Echocardiography Report (TTE) Patient Name ADRIÁN Date of Study 07/04/2020 MIKE N Date of 1975 Gender Female Age 44 year(s) Race Room Number Height: 64 inch, 162.56 cm Corporate ID [id number] Weight: 192 pounds, 87.1 kg # Patient Acct [id number] BSA: 1.92 m^2 BMI: 32.96 # kg/m^2 MR # [id number] [employer] Range Back Tender [place] Interpreting Physician Ronan Rodriguez Fellow Referring Nurse Practitioner Interpreting Referring Physician Nat Mora Type of Study TTE procedure:2D Echocardiogram, M-Mode, Doppler, Color Doppler. Procedure Date Date: 07/04/2020 Start: 11:51 AM Study Location: [facility] Indications:Chest pain and Palpitations. History / [...] Wall E' velocity:0.12 m/s Lateral Wall E/E':4.86 [place] Metabolic Panelon 07-04-2020 GFR/1.73 sq M predicted among non-blacks MDRD (S/P/Bld) [Vol rate/Area] [place] Comment on above: Stage 1: [...] body mass. Additional eGFR calculator available at: http://www.untapt.Message Systems/multiple_crcl_2012.htm APTTon 06-17-2020 aPTT Coag (Bld) [Time] 28.3 s [place], [place] Comment on above: IV Heparin Therapy Range: 62.0-94.0 Brain Natriuretic Peptideon 06-17-2020 Natriuretic peptide B (Bld) [Mass/Vol] Pro-BNP Reference Range: [place], [place] Comment on above: Rule Out: <300 [place] Zone: Age <50 300-450 Age 50-75 300-900 Age >75 300-1800 Usually represents mild to moderate HF but other cardiopulmonary causes cannot be ruled out. Rule In: Age <50 >450 Age 50-75 >900 Age >75 >1800 Natriuretic peptide B (Bld) [Mass/Vol] 59 pg/mL <300 [place], [place] Comment on above: Pro-BNP results alirio ot be compared to BNP results. CBC Auto Differentialon 05-21 Basophils (Bld) [#/Vol] 10*3/uL [place], [place] Basophils/100 WBC (Bld) 0 % 0 - 2 % [place] Differential Type NOT REPORTED [place], [place] Eosinophils (Bld) [#/Vol] 10*3/uL [place] Eosinophils/100 WBC (Bld) 0 % Low 1 - 4 % [place] Erythrocyte distribution width (RBC) [Ratio] 12.0 % 11.8 - 14.4 % [place] Hematocrit (Bld) [Volume fraction] 38.2 % 36.3 - 47.1 % [place] Hemoglobin (Bld) [Mass/Vol] 13.0 g/dL 11.9 - 15.1 g/dL [place] Immature granulocytes (Bld) [#/Vol] 0 % 0 [place] Immature granulocytes (Bld) [#/Vol] 10*3/uL [place] Interpretation and review of laboratory results Abnormal [place] Lymphocytes (Bld) [#/Vol] 1.51 10*3/uL [place] Lymphocytes/100 WBC (Bld) 31 % 24 - 43 % [place] MCH (RBC) [Entitic mass] 30.6 pg 25.2 - 33.5 pg [place] MCHC (RBC) [Mass/Vol] 34.0 g/dL 28.4 - 34.8 g/dL [place] MCV (RBC) [Entitic vol] 89.9 fL 82.6 - 102.9 fL [place] Monocytes (Bld) [#/Vol] 0.55 10*3/uL [place] Monocytes/100 WBC (Bld) 11 % 3 - 12 % [place] Platelet mean volume (Bld) [Entitic vol] 9.9 fL 8.1 - 13.5 fL [place] Platelets (Bld) [#/Vol] NOT REPORTED [place] Platelets (Bld) [#/Vol] 198 10*3/uL [place] RBC (Bld) [#/Vol] 4.25 10*6/uL 3.95 - 5.11 m/uL [place] RBC morphology finding Nom (Bld) NOT REPORTED [place] Segmented neutrophils/100 WBC (Bld) 58 % 36 - 65 % [place] Segs Absolute 2.69 [place] WBC (Bld) [#/Vol] 0.0 10*3/uL 0.0 per 100 WBC [place] WBC (Bld) [#/Vol] 4.8 10*3/uL [place] WBC Morphology NOT REPORTED [place] Comprehensive Metabolic Pane l w/ Reflex to MGon 06-17-2020 Albumin [Mass/Vol] 4 g/dL 3.5 - 5.2 g/dL [place] Albumin/Globulin [Mass ratio] 1.5 {ratio} [place] ALP [Catalytic activity/Vol] 109 U/L High 35 - 104 U/L [place] ALT [Catalytic activity/Vol] 88 U/L High 5 - 33 U/L [place] Anion gap [Moles/Vol] 8 mmol/L Low 9 - 17 mmol/L [place] AST [Catalytic activity/Vol] 71 U/L High <32 [place] Bilirubin Ql (U) 0.29 mg/dL Low 0.3 - 1.2 mg/dL [place], [place] Bun/Cre Ratio 9 [place] Calcium [Mass/Vol] 8.7 mg/dL 8.6 - 10. 4 mg/dL [place] Chloride [Moles/Vol] 107 mmol/L 98 - 10 7 mmol/L [place] CO2 [Moles/Vol] 23 mmol/L 20 - 31 mmol/L [place] Creatinine [Mass/Vol] 0.57 mg/dL 0.5 - 0.9 mg/dL [place] GFR >60 >60 mL/min [place] GFR Non- >60 >60 mL/min [place] Glucose [Mass/Vol] 119 mg/dL High 70 - 99 mg/dL [place] Interpretation and review of laboratory results Abnormal [place] Potassium [Moles/Vol] 3.7 mmol/L 3.7 - 5.3 mmol/L [place] Protein [Mass/Vol] 6.6 g/dL 6.4 - 8.3 g/dL [place] Sodium [Moles/Vol] 138 mmol/L 135 - 144 mmol/L [place], [place] Urea nitrogen [Mass/Vol] 5 mg/dL Low 6 - 20 mg/dL [place] Metabolic Panelon 06-17-2020 GFR/1.73 sq M predicted among non-blacks MDRD (S/P/Bld) [Vol rate/Area] [place], [place] Comment on above: Average GFR for 40-4 9 years old: 99 mL/min/1.73sq m Chronic Kidney Disease: <60 mL/min/1.73sq m Kidney failure: <15 mL/min/1.73sq m eGFR calculated using average adult body mass. Additional eGFR calculator available at: http://www.untapt.Message Systems/multiple_crcl_2012.htm Stage 1: Some kidney damage normal GFR Stage 2: Mild kidney damage GFR 60-89 Stage 3: Moderate kidney damage GFR 30-59 Stage 4: Severe kidney damage GFR 15-29 Stage 5: Severe kidney damage GFR <15 ESRD - chronic treatment by dialysis or transplant Protime-INRon 06-17-2020 INR Coag (PPP) [Relative time] 0.9 {INR} [place], [place] Comment on above: Non-therapeutic Range: INR = 0.9-1.2 Therapeutic Range: Moderate Anticoagulant Intensity: INR = 2.0-3.0 High Anticoagulant Intensity: INR = 2.5-3.5 PT Coag (PPP) [Time] 12.4 s [place] Troponinon 06-17-2020 Troponin I.cardiac [Mass/Vol] NOT REPORTED [place] Troponin T.cardiac [Mass/Vol] NOT REPORTED <0.03 ng/mL [place] Troponin, High Sensitivity 6 ng/L 0 - 14 ng/L [place] Comment on above: High Sensitivity Troponin values cannot be compared with other Troponin methodologies. Patients with high levels of Biotin oral intake (i.e >5mg/day) may have falsely decreased Troponin levels. Samples collected within 8 hours of biotin intake may require additional information for diagnosis. Troponin I.cardiac [Mass/Vol] NOT REPORTED [place] Troponin T.cardiac [Mass/Vol] NOT REPORTED <0.03 ng/mL [place] Troponin, High Sensitivity <6 0 - 14 ng/L [place], [place] Comment on above: High Sensitivity Troponin values cannot be compared with other Troponin methodologies. Patients with high levels of Biotin oral intake (i.e >5mg/day) may have falsely decreased Troponin levels. Samples collected within 8 hours of biotin intake may require additional information for diagnosis. XR CHEST PORTABLEon 06-17-20 20 [place], [place] Incoming Radiant Results From [facility] - 06/17/2020 10:47 AM EST EXAMINATION: ONE XRAY VIEW OF THE CHEST 06/17/2020 10:40 am COMPARISON: 12/28/2019 HISTORY: ORDERING SYSTEM PROVIDED HISTORY: Cp TECHNOLOGIST PROVIDED HISTORY: Cp FINDINGS: The cardiomediastinal silhouette is within normal limits. There is no consolidation, pneumothorax or evidence for edema. No evidence for effusion. No acute osseous abnormality is identified. IMPRESSION: No acute airspace disease identified. [place] EXAMINATION: ONE XRA Y VIEW OF THE CHEST 06/17/2020 10:40 am COMPARISON: 12/28/2019 HISTORY: ORDERING SYSTEM PROVIDED HISTORY: Cp TECHNOLOGIST PROVIDED HISTORY: Cp FINDINGS: The cardiomediastinal silhouette is within normal limits. There is no consolidation, pneumothorax or evidence for edema. No evidence for effusion. No acute osseous abnormality is identified. [place] No acute airspace disease identified. [place] Laboratory - Microbiology an d Antimicrobial susceptibilityOrdered By: Tao Reece on 06-04-2020 SARS-CoV-2 (COVID-19) RNA FAUSTINA+probe Ql (Resp) Not detected (Not Detected ) [facility] Work Phone: Comment on above: Note: This nucleic a deepti amplification test was developed and itsperformance characteristics determined by [employer]. Nucleic acid amplification tests include PCRand TMA. This test has not been FDA cleared or approved.This test has been authorized by FDA under an Emergency UseAuthorization (EUA). This test is only authorized forthe duration of time the declaration that circumstancesexist justifying the authorization of the emergency use ofin vitro diagnostic tests for detection of SARS-CoV-2 virusand/or diagnosis of COVID-19 infection under [id number](b)(1) of the Act, 21 U.S.C. 360bbb-3(b) (1), [...] 06-04-2020 SARS-CoV-2, FAUSTINA Not Detected (Not Detected) [facility] Work Phone: Comment on above: Note: This nucleic a deepti amplification test was developed and itsperformance characteristics determined by [employer]. Nucleic acid amplification tests include PCRand TMA. This test has not been FDA cleared or approved.This test has been authorized by FDA under an Emergency UseAuthorization (EUA). This test is only authorized forthe duration of time the declaration that circumstancesexist justifying the authorization of the emergency use ofin vitro diagnostic tests for detection of SARS-CoV-2 virusand/or diagnosis of COVID-19 infection under linrfgd945(b)(1) of the Act, 21 U.S.C. 360bbb-3(b) (1), [...] (Resp) Not detected (Not Detected ) [facility] Work Phone: Comment on above: [...] SARS-CoV-2 virusand/or diagnosis of COVID-19 infection under [id number](b)(1) of the Act, 21 U.S.C. 360bbb-3(b) (1), [...] SARS-CoV-2, FAUSTINA Not Detected (Not Detected) [facility] Work Phone: Comment on above: Note: This [...] SARS-CoV-2 virusand/or diagnosis of COVID-19 infection under trbxgek514(b)(1) of the Act, 21 U.S.C. 360bbb-3(b) (1), [...] acute osseous abnormality or foreign body identified. [facility] EX[facility]: TWO XRA Y VIEWS OF THE [...] maintained. No discrete soft tissue abnormality identified. [facility] [place], [place] Incoming Radiant Results From [facility] - 04/28/2020 4:26 PM EDT EXAMINATION: TWO [...] acute osseous abnormality or foreign body identified. [place] Estradiolon 02-14-2020 Estradiol <5 Low 27 - 314 pg/mL [place], [place] Comment on above: FEMALES: Normally menstruating Luteal phase 33-298 Follicular phase 27-156 Midcycle phase 48-314 Postmenopausal (untreated) 5-50 Fulvestrant treatment will show an increased estradiol concentration with this methodology. Alternate methodologies are available upon request. Interpretation and review of laboratory results Abnormal [place] Follicle Stimulating Hormone on 02-14-2020 FSH 40.4 U/L High 1.7 - 21.5 U/L [place] Comment on above: Reference Range: Male: 1.5-12.4 Ovulating Female: Follicular Phase 3.5-12.5 Ovulation Phase 4.7-21.5 Luteal Phase 1.7-7.7 Postmenopausal Female: 25.8-134.8 Interpretation and review of laboratory results Abnormal [place] TSH with Reflexon 02-14-2020 TSH Qn 2.33 m[IU]/L [place] Activated clotting timeon Activated Clotting Time 289 High M [place], [place] Interpretation and review of laboratory results Abnormal [place] Basic Metabolic Panel w/ Ref golden to MGon 12-29-2019 Anion gap [Moles/Vol] 13 mmol/L 9 - 17 mmol/L [place] Bun/Cre Ratio 19 [place] Calcium [Mass/Vol] 8.8 mg/dL 8.6 - 10. 4 mg/dL [place] Chloride [Moles/Vol] 109 mmol/L High 98 - 10 7 mmol/L [place] CO2 [Moles/Vol] 20 mmol/L 20 - 31 mmol/L [place] Creatinine [Mass/Vol] 0.63 mg/dL 0.5 - 0.9 mg/dL [place] GFR >60 >60 mL/min [place] GFR Non- >60 >60 mL/min [place] Glucose [Mass/Vol] 113 mg/dL High 70 - 99 mg/dL [place] Interpretation and review of laboratory results Abnormal [place] Potassium [Moles/Vol] 3.8 mmol/L 3.7 - 5.3 mmol/L [place] Sodium [Moles/Vol] 142 mmol/L 135 - 144 mmol/L [place] Urea nitrogen [Mass/Vol] 12 mg/dL 6 - 20 mg/dL [place] COVID-19on 12-29-2019 SARS-CoV-2 [place] SARS-CoV-2, PCR [place] SARS-CoV-2, Rapid Not Detected Not Detected [place] Comment on above: Rapid NAAT: [...] management decisions. Fact sheet for Healthcare Providers: https://www.fda.gov/media/527414/download Fact sheet for Patients: https://www.fda.gov/media/784731/download Methodology: Isothermal Nucleic Acid Amplification Source .NASOPHARYNGEAL SWAB [place] Cardiac Catheterizationon Cardiac Diagnostic + PCI Report Demographics Patient ADRIÁN Bee Date of Study 12/29/2019 Name Date of 1975 Gender Female Age 44 year(s) Race Room [id number]^EDWINA^MICHAEL Height: 64 inch, 162.56 cm Number Corporate [id number] Weight: 196 pounds, 88.9 kg ID # Patient [id number] BSA: 1.94 m^2 BMI: 33.64 Acct # kg/m^2 MR # [id number] Performing Physician Michael Arroyo Referring Physician # [...] with VALERIY III flow Devices used - [place] Eye IVUS [place] Catheter ([employer]). Number of passes: 1. - ASAHI Prowater [...] S.Q. 10 ml. - Heparin I.V. bolus 21260 units. - Nitroglycerin I.C. 200 mcg. - Nitroglycerin I.C. 200 mcg. - Plavix P.O. 300 mg. Catheters and Wires: - 7F Guide Catheter XB 3.5 was used for Left coronary angiography. Contrast Material: - Optiray [id number] ml Fluoroscopy Time: Diagnostic: 7:58 minutes. Total: [...] assessed as CCS III according to the [place] clinical classification. Hemodynamics Condition: Baseline Room Air Estimated: 179.59Heart Rate: 50 bpm Pressure +-----+ ---+ !Site !Pressure ! +-----+ ---+ !AO !122/66 (89) ! +-----+ ---+ Shunts Oxygen Values O2 [id number] Klahfilgspr881.59 [place], [place], [place] Incoming Cardio Results From [facility]/ - 12/29/2019 3:33 PM EDT Cardiac Diagnostic + PCI Report Demographics Patient ADRIÁN Bee Date of Study 12/29/2019 Name Date of 1975 Gender Female Age 44 year(s) Race Room [id number]^EDWINA^MICHAEL Height: 64 inch, 162.56 cm Number Corporate [id number] Weight: 196 pounds, 88.9 kg ID # Patient [id number] BSA: 1.94 m^2 BMI: 33.64 Acct # kg/m^2 MR # [id number] Performing Physician Michael Arroyo Referring Physician # [...] with VALERIY III flow Devices used - [place] Eye IVUS [place] Catheter ([employer]). Number of passes: 1. - ASAHI Prowater [...] S.Q. 10 ml. - Heparin I.V. bolus 89900 units. - Nitroglycerin I.C. 200 mcg. - Nitroglycerin I.C. 200 mcg. - Plavix P.O. 300 mg. Catheters and Wires: - 7F Guide Catheter XB 3.5 was used for Left coronary angiography. Contrast Material: - Optiray [id number] ml Fluoroscopy Time: Diagnostic: 7:58 minutes. Total: [...] assessed as CCS III according to the [place] clinical classification. Hemodynamics Condition: Baseline Room Air Estimated: 179.59Heart Rate: 50 bpm Pressure +-----+ --- + !Site !Pressure ! +-----+ --- + !AO !122/66 (89) ! +-----+ --- + Shunts Oxygen Values O2 Zsfvrvcv018.96O2 Timtajbwbjr996.59 [place] Diagnostic Cardiac Stratigrapher Procedureon 12-29-2019 Cardiac Diagnostic Report Demographics Patient ADRIÁN Bee Date of Study 12/29/2019 Name Date of 1975 Gender Female Age 44 year(s) Race Room [id number]^MICHAEL^RONAN Height: 64 inch, 162.56 cm Number Corporate [id number] Weight: 195 pounds, 88.4 kg ID # Patient [id number] BSA: 1.93 m^2 BMI: 33.45 Acct # kg/m^2 MR # [id number] Performing Physician MichaelRonan Referring Physician # Assisting [...] for LV Pressure. Contrast Material: - Isovue [id number] ml Fluoroscopy Time: Diagnostic: 2:01 minutes. Total: [...] assessed as CCS IV according to the [place] clinical classification. Hemodynamics Condition: Baseline Room Air [...] --------+---------+----- -----+---------+-------- ---+ Shunts Oxygen Values O2 Ivboziiu226.96O2 Citjiputxki634.16 [facility]- [place], [place] Incoming Cardio Results From [facility]/ - 12/29/2019 1:22 PM EDT Cardiac Diagnostic Report Demographics Patient ADRIÁN Bee Date of Study 12/29/2019 Name Date of 1975 Gender Female Age 44 year(s) Race Room [id number]^DELONTE Height: 64 inch, 162.56 cm Number Corporate [id number] Weight: 195 pounds, 88.4 kg ID # Patient [id number] BSA: 1.93 m^2 BMI: 33.45 Acct # kg/m^2 MR # [id number] Performing Physician Ronan Rodriguez Referring Physician # [...] for LV Pressure. Contrast Material: - Isovue 23376 ml Fluoroscopy Time: Diagnostic: 2:01 minutes. Total: [...] assessed as CCS IV according to the [place] clinical classification. Hemodynamics Condition: Baseline Room Air [...] -----+---------+-------- --- + Shunts Oxygen Values O2 [id number] Jnrhrkssual934.16 [facility] EKG 12 leadon 12-29-2019 Atrial Rate 51 BPM [facility] [place] P [place] 57 degrees [facility], [place] P-R Interval 178 ms [facility] [place], [place] Q-T Interval 494 ms [facility] [place] QRS Duration 86 ms [facility] [place], [place] QTc Calculation (Bazett) 455 ms [facility], [place] R [place] 2 degrees [facility], [place] T [place] 26 degrees [facility], [place] Ventricular Rate 51 BPM [facility], [place], [place] Incoming E kg Results From [facility] - 12/29/2019 8:53 AM EDT Sinus bradycardia Otherwise normal ECG When compared with ECG of 09-OCT-2019 03:52, Nonspecific T wave abnormality has replaced inverted T waves in Inferior leads Confirmed by GILMAR RICHTER ([id number]) on 12/29/2019 8:53:10 AM [place] Sinus bradycardia Otherwise normal ECG When compared with ECG of 09-OCT-2019 03:52, Nonspecific T wave abnormality has replaced inverted T waves in Inferior leads Confirmed by GILMAR RICHTER ([id number]) on 12/29/2019 8:53:10 AM [place] Lipid panel - fastingon 12-17 Cholesterol [Mass/Vol] 184 mg/dL <200 Me [place], [place] Comment on above: Cholesterol Guidelines: <200 Desirable 200-240 Borderline >240 Undesirable Cholesterol in HDL [Mass/Vol] 26 mg/dL Low >40 [place] Comment on above: HDL Guidelines: <40 Undesirable 40-59 Borderline >59 Desirable Cholesterol in LDL [Mass/Vol] 0 - 130 mg/dL [place] Comment on above: Calculation not jacy d for Triglyceride value greater than 400 mg/dL. Direct LDL reflexed LDL Guidelines: <100 Desirable 100-129 Near to/above Desirable 130-159 Borderline >159 Undesirable Direct (measured) LDL and calculated LDL are not interchangeable tests. Cholesterol in VLDL [Mass/Vol] NOT REPORTED 1 - 30 mg/dL [place] Cholesterol.total/Audelia sterol in HDL [Mass ratio] 7.1 {ratio} High <5 [place] Interpretation and review of laboratory results Abnormal [place] Triglyceride [Mass/Vol] 478 mg/dL High <150 M [place], [place] Comment on above: Triglyceride Guidelines: <150 Desirable 150-199 Borderline 200-499 High >499 Very high Based on AHA Guidelines for fasting triglyceride, April 2012. Metabolic Panelon 12-29-2019 GFR/1.73 sq M predicted among non-blacks MDRD (S/P/Bld) [Vol rate/Area] [place], [place] Comment on above: Stage 1: [...] body mass. Additional eGFR calculator available at: http://www.GlobeImmune/multiple_crcl_2012.htm CBCon 12-28-2019 Erythrocyte distribution width (RBC) [Ratio] 11.9 % 11.8 - 14.4 % [place] Hematocrit (Bld) [Volume fraction] 39.9 % 36.3 - 47.1 % [place] Hemoglobin (Bld) [Mass/Vol] 13.6 g/dL 11.9 - 15.1 g/dL [place] MCH (RBC) [Entitic mass] 30.4 pg 25.2 - 33.5 pg [place] MCHC (RBC) [Mass/Vol] 34.1 g/dL 28.4 - 34.8 g/dL [place] MCV (RBC) [Entitic vol] 89.3 fL 82.6 - 102.9 fL [place] Platelet mean volume (Bld) [Entitic vol] 10.1 fL 8.1 - 13.5 fL [place] Platelets (Bld) [#/Vol] 263 10*3/uL [place] RBC (Bld) [#/Vol] 4.47 10*6/uL 3.95 - 5.11 m/uL [place] WBC (Bld) [#/Vol] 7.3 10*3/uL [place] WBC (Bld) [#/Vol] 0.0 10*3/uL 0.0 per 100 WBC [place] Comprehensive Metabolic Pane l w/ Reflex to MGon 12-28-2019 Albumin [Mass/Vol] 4.7 g/dL 3.5 - 5.2 g/dL [place] Albumin/Globulin [Mass ratio] 2.0 {ratio} [place] ALP [Catalytic activity/Vol] 112 U/L High 35 - 104 U/L [place] ALT [Catalytic activity/Vol] 61 U/L High 5 - 33 U/L [place] Anion gap [Moles/Vol] 13 mmol/L 9 - 17 mmol/L [place] AST [Catalytic activity/Vol] 48 U/L High <32 [place] Bilirubin Ql (U) 0.42 mg/dL 0.3 - 1.2 mg/dL [place] Bun/Cre Ratio 18 [place] Calcium [Mass/Vol] 9.4 mg/dL 8.6 - 10. 4 mg/dL [place] Chloride [Moles/Vol] 101 mmol/L 98 - 10 7 mmol/L [place] CO2 [Moles/Vol] 22 mmol/L 20 - 31 mmol/L [place] Creatinine [Mass/Vol] 0.62 mg/dL 0.5 - 0.9 mg/dL [place] GFR >60 >60 mL/min [place], [place] GFR Non- >60 >60 mL/min [place] Glucose [Mass/Vol] 93 mg/dL 70 - 99 mg/dL [place] Interpretation and review of laboratory results Abnormal [place] Potassium [Moles/Vol] 4.5 mmol/L 3.7 - 5.3 mmol/L [place] Protein [Mass/Vol] 7.1 g/dL 6.4 - 8.3 g/dL [place] Sodium [Moles/Vol] 136 mmol/L 135 - 144 mmol/L [place] Urea nitrogen [Mass/Vol] 11 mg/dL 6 - 20 mg/dL [place] Metabolic Panelon 12-28-2019 GFR/1.73 sq M predicted among non-blacks MDRD (S/P/Bld) [Vol rate/Area] [place], [place] Comment on above: Stage 1: [...] body mass. Additional eGFR calculator available at: http://www.GlobeImmune/multiple_crcl_2012.htm Troponinon 12-28-2019 Troponin I.cardiac [Mass/Vol] NOT REPORTED [place] Troponin T.cardiac [Mass/Vol] NOT REPORTED <0.03 ng/mL [place] Troponin, High Sensitivity <6 0 - 14 ng/L [place] Comment on above: High Sensitivity [...] Visualized bony thorax shows no acute abnormality. [place], [place] Incoming Radiant Results From [facility] - 12/28/2019 4:16 PM EDT EXAMINATION: TWO [...] acute findings. Stable when compared to previous. [place] Clear chest, no acut e findings. Stable when compared to previous. [place] CBCon 10-10-2019 Erythrocyte distribution width (RBC) [Ratio] 11.9 % 11.8 - 14.4 % [place] Hematocrit (Bld) [Volume fraction] 37.1 % 36.3 - 47.1 % [place] Hemoglobin (Bld) [Mass/Vol] 12.6 g/dL 11.9 - 15.1 g/dL [place] MCH (RBC) [Entitic mass] 30.3 pg 25.2 - 33.5 pg [place] MCHC (RBC) [Mass/Vol] 34.0 g/dL 28.4 - 34.8 g/dL [place] MCV (RBC) [Entitic vol] 89.2 fL 82.6 - 102.9 fL [place] Platelet mean volume (Bld) [Entitic vol] 9.8 fL 8.1 - 13.5 fL [place] Platelets (Bld) [#/Vol] 235 10*3/uL [place] RBC (Bld) [#/Vol] 4.16 10*6/uL 3.95 - 5.11 m/uL [place] WBC (Bld) [#/Vol] 10.1 10*3/uL [place] WBC (Bld) [#/Vol] 0.0 10*3/uL 0.0 per 100 WBC [place] EKG 12 Leadon 10-10-2019 Atrial Rate 87 BPM [place], [place] P [place] 50 degrees [place] P-R Interval 162 ms [place] Q-T Interval 380 ms [place] QRS Duration 82 ms [place] QTc Calculation (Bazett) 457 ms [place], [place] R [place] -5 degrees [place], [place] T [place] 22 degrees [place] Ventricular Rate 87 BPM [place], [place], [place] Incoming E kg Results From [facility] - 10/10/2019 12:56 PM EDT Normal sinus rhythm Normal ECG When compared with ECG of 09-OCT-2019 10:13, Minimal criteria for Anterior infarct are no longer Present [place] Normal sinus rhythm Normal ECG When compared with ECG of 09-OCT-2019 10:13, Minimal criteria for Anterior infarct are no longer Present [place] EKG 12 leadon 10-10-2019 Atrial Rate 61 BPM [facility], [place] P Har[place] 39 degrees [facility], [place] P-R Interval 178 ms [facility] [place], [place] Q-T Interval 446 ms [facility] [place], [place] QRS Duration 78 ms [facility] [place], [place] QTc Calculation (Bazett) 448 ms [facility], [place] R [place] 5 degrees [facility] [place], [place] T [place] 1 degrees [facility], [place] Ventricular Rate 61 BPM [facility], [place], [place] Incoming E kg Results From [facility] - 10/10/2019 12:56 PM EDT Normal sinus rhythm Cannot rule out Anterior infarct , age undetermined Abnormal ECG When compared with ECG of 21-OCT-2018 19:32, No significant change was found [facility], [place] Normal sinus rhythm Cannot rule out Anterior infarct , age undetermined Abnormal ECG When compared with ECG of 21-OCT-2018 19:32, No significant change was found [facility], [place] Echo Completeon 10-10-2019 Transthoracic Echocardiography Report (TTE) Patient Name ADRIÁN Date of Study 10/09/2019 MIKE N Date of 1975 Gender Female Age 43 year(s) Race Room Number [id number] Height: 64 inch, 162.56 cm Corporate ID [id number] Weight: 169 pounds, 76.7 kg # Patient Acct [id number] BSA: 1.82 m^2 BMI: 29.01 kg/m^2 # MR # [id number] Cloth Bleaching Range Back Tender Darrell,Juli Interpreting Physician Heladio Randolph Fellow Referring Nurse Practitioner Interpreting Referring Physician Mary Jane Oconnor MD Fellow Type of Study TTE procedure:2D Echocardiogram, M-Mode, Doppler, Color Doppler, Bubble Study. Procedure Date Date: 10/09/2019 Start: 03:57 PM Study Location: [facility] Technical Quality: Fair visualization History / [...] Wall E' velocity:0.07 m/s Lateral Wall E/E':9.2 [facility] [place], [place], [place] Incoming Cardio Results From [facility] - 10/10/2019 9:55 AM EDT Transthoracic Echocardiography Report (TTE) Patient Name ADRIÁN Date of Study 10/09/2019 MIKE N Date of 1975 Gender Female Age 43 year(s) Race Room Number 0543 Height: 64 inch, 162.56 cm Corporate ID [id number] Weight: 169 pounds, 76.7 kg # Patient Acct [id number] BSA: 1.82 m^2 BMI: 29.01 kg/m^2 # MR # [id number] Cloth Bleaching Range Back Tender Juli Ramírez Interpreting Physician Heladio Randolph Fellow Referring Nurse Practitioner Interpreting Referring Physician Mary Jane Oconnor MD Fellow Type of Study TTE procedure:2D Echocardiogram, M-Mode, Doppler, Color Doppler, Bubble Study. Procedure Date Date: 10/09/2019 Start: 03:57 PM Study Location: [facility] Technical Quality: Fair visualization History / [...] Wall E' velocity:0.07 m/s Lateral Wall E/E':9.2 [place] HOMOCYSTEINE, SERUMon 2019 Homocysteine 6.4 umol/L <15.0 [place] Troponinon 10-10-2019 Troponin I.cardiac [Mass/Vol] NOT REPORTED [place] Troponin T.cardiac [Mass/Vol] NOT REPORTED <0.03 ng/mL [place] Troponin, High Sensitivity <6 0 - 14 ng/L [place] Comment on above: High Sensitivity Troponin values cannot be compared with other Troponin methodologies. Patients with high levels of Biotin oral intake (i.e >5mg/day) may have falsely decreased Troponin levels. Samples collected within 8 hours of biotin intake may require additional information for diagnosis. Hemoglobin A1con 10-09-2019 Glucose [Mass/Vol] 105 mg/dL [place] Comment on above: The ADA and AACC rec ommend providing the estimated average glucose result to permit better patient understanding of their HBA1c result. HbA1c (Bld) [Mass fraction] 5.3 % 4 - 6 % [place] LDL Cholesterol, Directon Cholesterol in LDL [Mass/Vol] 99 mg/dL <100 [place] Lipid panel - fastingon 09-17 Cholesterol [Mass/Vol] 229 mg/dL High <200 Me [place], [place] Comment on above: Cholesterol Guidelines: <200 Desirable 200-240 Borderline >240 Undesirable Cholesterol in HDL [Mass/Vol] 27 mg/dL Low >40 [place] Comment on above: HDL Guidelines: <40 Undesirable 40-59 Borderline >59 Desirable Cholesterol in LDL [Mass/Vol] 0 - 130 mg/dL [place] Comment on above: Calculation not jacy d for Triglyceride value greater than 400 mg/dL. Direct LDL reflexed LDL Guidelines: <100 Desirable 100-129 Near to/above Desirable 130-159 Borderline >159 Undesirable Direct (measured) LDL and calculated LDL are not interchangeable tests. Cholesterol in VLDL [Mass/Vol] 1 - 30 mg/dL [place] Cholesterol.total/Audelia sterol in HDL [Mass ratio] 8.5 {ratio} High <5 [place] Interpretation and review of laboratory results Abnormal [place] Triglyceride [Mass/Vol] 586 mg/dL High <150 M [place], [place] Comment on above: Triglyceride Guidelines: <150 Desirable 150-199 Borderline 200-499 High >499 Very high Based on AHA Guidelines for fasting triglyceride, April 2012. MRI brain without contraston 10-09-2019 [place], [facility] Incoming Radiant Results From [facility] - 10/09/2019 12:50 PM EDT EXAMINATION: MRI [...] IMPRESSION: Unremarkable noncontrast MRI of the brain. [place] Unremarkable noncont rast MRI of the brain. [place] EXAMINATION: MRI OF THE BRAIN [...] The soft tissues demonstrate no acute abnormality. [place] STROKE PANELon 10-09-2019 % CKMB 1.7 % 0 - 3 % [place] Anion gap [Moles/Vol] 17 mmol/L 9 - 17 mmol/L [place] aPTT Coag (Bld) [Time] 24.1 s [place] Basophils (Bld) [#/Vol] 0.05 10*3/uL [place] Basophils/100 WBC (Bld) 1 % 0 - 2 % [place] Bun/Cre Ratio NOT REPORTED [facility] [place] [place] Calcium [Mass/Vol] 8.7 mg/dL 8.6 - 10. 4 mg/dL [place] Chloride [Moles/Vol] 101 mmol/L 98 - 10 7 mmol/L [place] CK.MB [Mass/Vol] NORMAL ISOENZYME PATTERN [place] CK.MB [Mass/Vol] 1.1 ng/mL <5.4 [place] CO2 [Moles/Vol] 20 mmol/L 20 - 31 mmol/L [place] Creatinine [Mass/Vol] 0.49 mg/dL Low 0.5 - 0.9 mg/dL [place] Differential Type NOT REPORTED [place] Eosinophils (Bld) [#/Vol] 0.15 10*3/uL [place] Eosinophils/100 WBC (Bld) 2 % 1 - 4 % [place] Erythrocyte distribution width (RBC) [Ratio] 12.1 % 11.8 - 14.4 % [place] GFR >60 >60 mL/min [place] GFR Non- >60 >60 mL/min [place] GFR/1.73 sq M predicted among non-blacks MDRD (S/P/Bld) [Vol rate/Area] NOT REPORTED [place] GFR/1.73 sq M predicted among non-blacks MDRD (S/P/Bld) [Vol rate/Area] [place] Comment on above: Average GFR for 40-4 9 years old: 99 mL/min/1.73sq m Chronic Kidney Disease: <60 mL/min/1.73sq m Kidney failure: <15 mL/min/1.73sq m eGFR calculated using average adult body mass. Additional eGFR calculator available at: http://www.untapt.Message Systems/multiple_crcl_2011.htm Glucose [Mass/Vol] 103 mg/dL High 70 - 99 mg/dL [place] Hematocrit (Bld) [Volume fraction] 38.6 % 36.3 - 47.1 % [place] Hemoglobin (Bld) [Mass/Vol] 13.0 g/dL 11.9 - 15.1 g/dL [place] Immature granulocytes (Bld) [#/Vol] 1 % High 0 [place] Immature granulocytes (Bld) [#/Vol] 0.05 10*3/uL [place] INR Coag (PPP) [Relative time] 0.9 {INR} [place] Comment on above: Therapeutic Range: Moderate Anticoagulant Intensity: INR = 2.0-3.0 High Anticoagulant Intensity: INR = 2.5-3.5 Interpretation and review of laboratory results Abnormal [place] Lymphocytes (Bld) [#/Vol] 2.65 10*3/uL [place] Lymphocytes/100 WBC (Bld) 27 % 24 - 43 % [place] MCH (RBC) [Entitic mass] 30.5 pg 25.2 - 33.5 pg [place] MCHC (RBC) [Mass/Vol] 33.7 g/dL 28.4 - 34.8 g/dL [place] MCV (RBC) [Entitic vol] 90.6 fL 82.6 - 102.9 fL [place] Monocytes (Bld) [#/Vol] 0.63 10*3/uL [place] Monocytes/100 WBC (Bld) 7 % 3 - 12 % [place] Myoglobin [Mass/Vol] ng/mL Low 25 - 58 ng/mL [place] Platelet mean volume (Bld) [Entitic vol] 9.9 fL 8.1 - 13.5 fL [place] Platelets (Bld) [#/Vol] 249 10*3/uL [place] Platelets (Bld) [#/Vol] NOT REPORTED [place] Potassium [Moles/Vol] 3.9 mmol/L 3.7 - 5.3 mmol/L [place] PT Coag (PPP) [Time] 9.8 s [place] RBC (Bld) [#/Vol] 4.26 10*6/uL 3.95 - 5.11 m/uL [place] RBC morphology finding Nom (Bld) NOT REPORTED [place] Segmented neutrophils/100 WBC (Bld) 62 % 36 - 65 % [place] Segs Absolute 6.15 [place] Sodium [Moles/Vol] 138 mmol/L 135 - 144 mmol/L [place] Total CK 65 U/L 26 - 192 U/L [place] Troponin I.cardiac [Mass/Vol] NOT REPORTED [place] Troponin T.cardiac [Mass/Vol] NOT REPORTED <0.03 ng/mL [place] Troponin, High Sensitivity <6 0 - 14 ng/L [place] Comment on above: High Sensitivity Troponin values cannot be compared with other Troponin methodologies. Patients with high levels of Biotin oral intake (i.e >5mg/day) may have falsely decreased Troponin levels. Samples collected within 8 hours of biotin intake may require additional information for diagnosis. Urea nitrogen [Mass/Vol] 8 mg/dL 6 - 20 mg/dL [place] WBC (Bld) [#/Vol] 0.0 10*3/uL 0.0 per 100 WBC [place] WBC (Bld) [#/Vol] 9.7 10*3/uL [place] WBC Morphology NOT REPORTED [place], [place] Sedimentation Rateon 020 Sed Rate 16 mm 0 - 20 mm [place] Troponinon 10-09-2019 Troponin I.cardiac [Mass/Vol] NOT REPORTED [place] Troponin T.cardiac [Mass/Vol] NOT REPORTED <0.03 ng/mL [place] Troponin, High Sensitivity <6 0 - 14 ng/L [place] Comment on above: High Sensitivity Troponin values cannot be compared with other Troponin methodologies. Patients with high levels of Biotin oral intake (i.e >5mg/day) may have falsely decreased Troponin levels. Samples collected within 8 hours of biotin intake may require additional information for diagnosis. Troponin I.cardiac [Mass/Vol] NOT REPORTED [place] Troponin T.cardiac [Mass/Vol] NOT REPORTED <0.03 ng/mL [place] Troponin, High Sensitivity <6 0 - 14 ng/L [place] Comment on above: High Sensitivity [...] [Moles/Vol] 14 mmol/L 9 - 17 mmol/L [employer] Phone: Bun/Cre Ratio 18 [employer] Work Phone: Calcium [Mass/Vol] 9.0 mg/dL 8.6 - 10. 4 mg/dL [employer] Phone: Chloride [Moles/Vol] 100 mmol/L 98 - 10 7 mmol/L [employer] Phone: CO2 [Moles/Vol] 24 mmol/L 20 - 31 mmol/L [employer] Phone: Creatinine [Mass/Vol] 0.56 mg/dL 0.5 - 0.9 mg/dL [employer] Phone: GFR >60 >60 mL/min [employer] Phone: GFR Non- >60 >60 mL/min [employer] Phone: Glucose [Mass/Vol] 150 mg/dL High 70 - 99 mg/dL [employer] Phone: Interpretation and review of laboratory results Abnormal [employer] Phone: Potassium [Moles/Vol] 3.7 mmol/L 3.7 - 5.3 mmol/L [employer] Phone: Sodium [Moles/Vol] 138 mmol/L 135 - 144 mmol/L [employer] Phone: Urea nitrogen [Mass/Vol] 10 mg/dL 6 - 20 mg/dL [employer] Phone: CBC Auto Differentialon 08-19 Basophils (Bld) [#/Vol] 0.03 10*3/uL [employer] Phone: Basophils/100 WBC (Bld) 0 % 0 - 2 % M [employer] Phone: Differential Type NOT REPORTED [employer] Phone: Eosinophils (Bld) [#/Vol] 0.13 10*3/uL [employer] Phone: Eosinophils/100 WBC (Bld) 2 % 1 - 4 % [employer] Phone: Erythrocyte distribution width (RBC) [Ratio] 11.6 % Low 11.8 - 14.4 % [employer] Phone: Hematocrit (Bld) [Volume fraction] 35.6 % Low 36.3 - 47.1 % [employer] Phone: Hemoglobin (Bld) [Mass/Vol] 12.3 g/dL 11.9 - 15.1 g/dL [employer] Phone: Immature granulocytes (Bld) [#/Vol] 0.03 10*3/uL [employer] Phone: Immature granulocytes (Bld) [#/Vol] 0 % 0 [employer] Phone: Interpretation and review of laboratory results Abnormal [employer] Phone: Lymphocytes (Bld) [#/Vol] 2.09 10*3/uL [employer] Phone: Lymphocytes/100 WBC (Bld) 27 % 24 - 43 % [employer] Phone: MCH (RBC) [Entitic mass] 30.4 pg 25.2 - 33.5 pg [employer] Phone: MCHC (RBC) [Mass/Vol] 34.6 g/dL 28.4 - 34.8 g/dL [employer] Phone: MCV (RBC) [Entitic vol] 87.9 fL 82.6 - 102.9 fL [employer] Phone: Monocytes (Bld) [#/Vol] 0.39 10*3/uL [employer] Phone: Monocytes/100 WBC (Bld) 5 % 3 - 12 % [facility] Phone: Platelet mean volume (Bld) [Entitic vol] 9.8 fL 8.1 - 13.5 fL [employer] Phone: Platelets (Bld) [#/Vol] NOT REPORTED [employer] Phone: Platelets (Bld) [#/Vol] 261 10*3/uL [employer] Phone: RBC (Bld) [#/Vol] 4.05 10*6/uL 3.95 - 5.11 m/uL [employer] Phone: RBC morphology finding Nom (Bld) NOT REPORTED [facility] Phone: Segmented neutrophils/100 WBC (Bld) 66 % High 36 - 65 % [facility] Phone: Segs Absolute 4.95 [facility] [employer] Work Phone: WBC (Bld) [#/Vol] 7.6 10*3/uL [employer] Phone: WBC (Bld) [#/Vol] 0.0 10*3/uL 0.0 per 100 WBC [employer] Phone: WBC Morphology NOT REPORTED [facility] [facility] Work Phone: Metabolic Panelon 08-29-2019 GFR/1.73 sq M predicted among non-blacks MDRD (S/P/Bld) [Vol rate/Area] [employer] Phone: Comment on above: Average GFR for 40-4 9 years old: 99 mL/min/1.73sq m Chronic Kidney Disease: <60 mL/min/1.73sq m Kidney failure: <15 mL/min/1.73sq m eGFR calculated using average adult body mass. Additional eGFR calculator available at: http://www.untapt.Message Systems/multiple_crcl_2012.htm Stage 1: Some kidney damage normal GFR Stage 2: Mild kidney damage GFR 60-89 Stage 3: Moderate kidney damage GFR 30-59 Stage 4: Severe kidney damage GFR 15-29 Stage 5: Severe kidney damage GFR <15 ESRD - chronic treatment by dialysis or transplant CBC Auto DifferentialOrdered By: Janae Landon on 08-21-2019 Absolute Eos # 0.13 [facility] Work Phone: Absolute Immature Granulocyte 0.03 [employer] Work Phone: Absolute Lymph # 2.37 [facility] Work Phone: Absolute [place] # 0.62 [facility] Work Phone: Basophils (Bld) [#/Vol] 0.06 10*3/uL [employer] Work Phone: Basophils/100 WBC (Bld) 1 % 0 - 2 % [facility] Work Phone: Differential Type NOT REPORTED [employer] Phone: Eosinophils/100 WBC (Bld) 1 % 1 - 4 % [employer] Phone: Erythrocyte distribution width (RBC) [Ratio] 11.4 % Low 11.8 - 14.4 % [employer] Phone: Hematocrit (Bld) [Volume fraction] 38.6 % 36.3 - 47.1 % [employer] Phone: Hemoglobin (Bld) [Mass/Vol] 13.6 g/dL 11.9 - 15.1 g/dL [employer] Phone: Immature granulocytes/100 WBC (Bld) 0 % 0 [employer] Phone: Interpretation and review of laboratory results Abnormal [employer] Phone: Lymphocytes/100 WBC (Bld) 26 % 24 - 43 % [employer] Work Phone: MCH (RBC) [Entitic mass] 30.6 pg 25.2 - 33.5 pg [employer] Work Phone: MCHC (RBC) [Mass/Vol] 35.2 g/dL High 28.4 - 34.8 g/dL [facility] Work Phone: MCV (RBC) [Entitic vol] 86.9 fL 82.6 - 102.9 fL [facility] Work Phone: Monocytes/100 WBC (Bld) 7 % 3 - 12 % M [facility] Work Phone: NRBC Automated 0.0 0.0 per 100 WBC [facility] Work Phone: Platelet Estimate NOT REPORTED [facility] Work Phone: Platelet mean volume (Bld) [Entitic vol] 9.8 fL 8.1 - 13.5 fL [facility] Work Phone: Platelets (Bld) [#/Vol] 279 10*3/uL [employer] Work Phone: RBC (Bld) [#/Vol] 4.44 10*6/uL 3.95 - 5.11 m/uL [facility] Work Phone: RBC morphology finding Nom (Bld) NOT REPORTED [facility] [employer] Work Phone: Segmented neutrophils/100 WBC (Bld) 65 % 36 - 65 % [facility] [employer] Work Phone: Segs Absolute 6.07 [facility] [employer] Work Phone: WBC (Bld) [#/Vol] 9.3 10*3/uL [employer] Work Phone: WBC Morphology NOT REPORTED [employer] Work Phone: Comprehensive Metabolic Pane lOrdered By: Janae Landon on 08-21-2019 Albumin [Mass/Vol] 4.8 g/dL 3.5 - 5.2 g/dL [employer] Phone: Albumin/Globulin [Mass ratio] 1.8 {ratio} [employer] Phone: ALP [Catalytic activity/Vol] 116 U/L High 35 - 104 U/L [employer] Phone: ALT [Catalytic activity/Vol] 30 U/L 5 - 33 U/L [employer] Phone: Anion gap [Moles/Vol] 14 mmol/L 9 - 17 mmol/L [employer] Phone: AST [Catalytic activity/Vol] 20 U/L <32 [employer] Phone: Bilirubin [Mass/Vol] 0.27 mg/dL Low 0.3 - 1 .2 mg/dL [employer] Phone: Bun/Cre Ratio 15 [employer] Work Phone: Calcium [Mass/Vol] 9.8 mg/dL 8.6 - 10. 4 mg/dL [employer] Phone: Chloride [Moles/Vol] 97 mmol/L Low 98 - 10 7 mmol/L [employer] Phone: CO2 [Moles/Vol] 25 mmol/L 20 - 31 mmol/L [employer] Phone: Creatinine [Mass/Vol] 0.66 mg/dL 0.5 - 0.9 mg/dL [employer] Phone: GFR >60 >60 mL/min [employer] Phone: GFR Comment [employer] Phone: Comment on above: Average GFR for 40-4 9 years old: 99 mL/min/1.73sq m Chronic Kidney Disease: <60 mL/min/1.73sq m Kidney failure: <15 mL/min/1.73sq m eGFR calculated using average adult body mass. Additional eGFR calculator available at: http://www.GlobeImmune/multiple_crcl_2012.htm GFR Non- >60 >60 mL/min [employer] Phone: GFR Staging [employer] Phone: Comment on above: Stage 1: Some kidney damage normal GFR Stage 2: Mild kidney damage GFR 60-89 Stage 3: Moderate kidney damage GFR 30-59 Stage 4: Severe kidney damage GFR 15-29 Stage 5: Severe kidney damage GFR <15 ESRD - chronic treatment by dialysis or transplant Glucose [Mass/Vol] 95 mg/dL 70 - 99 mg/dL [employer] Phone: Interpretation and review of laboratory results Abnormal [employer] Phone: Potassium [Moles/Vol] 3.7 mmol/L 3.7 - 5.3 mmol/L [employer] Phone: Protein [Mass/Vol] 7.5 g/dL 6.4 - 8.3 g/dL [employer] Phone: Sodium [Moles/Vol] 136 mmol/L 135 - 144 mmol/L [employer] Phone: Urea nitrogen [Mass/Vol] 10 mg/dL 6 - 20 mg/dL [employer] Phone: D-dimer, quantitativeOrdered By: Janae Landon on 08-21-2019 D-Dimer, Quant 0.21 [employer] Phone: Comment on above: Elevated levels of [...] Landon on 08-21-2019 Atrial Rate 70 BPM [employer] Phone: P [place] 51 degrees [employer] Phone: P-R Interval 164 ms [employer] Work Phone: Q-T Interval 408 ms [employer] Work Phone: QRS Duration 82 ms [employer] Work Phone: QTc Calculation (Bazett) 440 ms [employer] Work Phone: R [place] -4 degrees [employer] Work Phone: T [place] 24 degrees [employer] Work Phone: Ventricular Rate 70 BPM [facility] Work Phone: Normal sinus rhythm Possible Left atrial enlargement Left ventricular hypertrophy Abnormal ECG When compared with ECG of 19-APR-2019 17:03, Nonspecific T wave abnormality no longer evident in Anterior leads Confirmed by GILMAR RICHTER ([id number]) on 08/21/2019 1:09:43 PM [employer] Work Phone: [place], [place] Incoming E kg Results From [facility] [place] - 08/21/2019 1:09 PM EST Normal sinus rhythm Possible Left atrial enlargement Left ventricular hypertrophy Abnormal ECG When compared with ECG of 19-APR-2019 17:03, Nonspecific T wave abnormality no longer evident in Anterior leads Confirmed by GILMAR RICHTER ([id number]) on 08/21/2019 1:09:43 PM [employer] Work Phone: Microscopic UrinalysisOrdere d By: Janae Landon on 08-21-2019 - [employer] Work Phone: Amorphous, UA NOT REPORTED None [employer] Work Phone: Bacteria, UA TRACE Abnormal None [employer] Work Phone: Casts UA NOT REPORTED /LPF [employer] Work Phone: Crystals UA NOT REPORTED None /HPF [facility] Work Phone: Epithelial Cells UA 0 TO 2 [employer] Work Phone: Interpretation and review of laboratory results Abnormal [employer] Work Phone: Mucus, UA NOT REPORTED None [facility] Work Phone: Other Observations UA NOT REPORTED NOT REQ. M [facility] [employer] Work Phone: RBC, UA 0 TO 2 [facility] Work Phone: Renal Epithelial, Urine NOT REPORTED 0 /HPF [facility] Work Phone: Trichomonas, UA NOT REPORTED None [facility] Work Phone: WBC, UA 0 TO 2 [facility] Work Phone: Yeast, UA NOT REPORTED None [facility] Work Phone: TroponinOrdered By: Janae Landon on 08-21-2019 Troponin Interp [facility] Work Phone: Comment on above: Reference [...] for diagnosis. Troponin T <0.03 <0.03 ng/mL [employer] Phone: Comment on above: Troponin T results c annot be compared to Troponin-I results. Troponin, High Sensitivity NOT REPORTED 0 - 14 ng/L [facility] Work Phone: Troponin Interp [facility] Work Phone: Comment on above: Reference [...] for diagnosis. Troponin T <0.03 <0.03 ng/mL [employer] Phone: Comment on above: Troponin T results c annot be compared to Troponin-I results. Troponin, High Sensitivity NOT REPORTED 0 - 14 ng/L [facility] Phone: Urinalysis Reflex to Culture Ordered By: Janae Landon on 08-21-2019 Bilirubin Urine Negative NEGATIVE [facility] Work Phone: Color, UA STRAW Abnormal YELLOW [facility] [employer] Work Phone: Glucose, Ur Negative NEGATIVE [facility] [employer] Work Phone: Interpretation and review of laboratory results Abnormal [facility] Phone: Ketones Ql (U) Negative NEGATIVE [facility] Work Phone: Leukocyte esterase Test strip Ql (U) Negative NEGATIVE [facility] Phone: Nitrite, Urine Negative NEGATIVE [facility] Work Phone: pH, UA 6.0 [facility] [employer] Work Phone: Protein, UA Negative NEGATIVE [facility] [employer] Phone: Specific Ramona, UA 1.010 [facility] [employer] Work Phone: Turbidity UA CLEAR CLEAR [facility] Phone: Urinalysis Comments NOT REPORTED [facility] [employer] Work Phone: Urine Hgb TRACE Abnormal NEGATIVE [facility] [employer] Phone: Urobilinogen, Urine Normal Normal [facility] [employer] Phone: XR CHEST STANDARD (2 VW)Orde red By: Janae Landon on 08-21-2019 No acute cardiopulmo nary process. [employer] Work Phone: EXAMINATION: TWO XRA Y VIEWS [...] unremarkable. There is no acute osseous abnormality. [employer] Phone: [place], [place] Incoming Radiant Results From [facility] - 08/21/2019 10:31 AM EST EXAMINATION: TWO [...] osseous abnormality. IMPRESSION: No acute cardiopulmonary process. [employer] Phone: MANDY SCREEN WITH REFLEXon Interpretation and review of laboratory results Abnormal [place] Nuclear Ab IF (S) [Titer] Positive Abnormal NEGATIVE [place] MANDY profileon 04-21-2019 MANDY Reference Range: [place] Comment on above: The following refere nce range is applicable for MANDY antibodies, including: Anti-Reza (Sm), Anti-LABOR RELATIONS ANALYST, Anti-Scleroderma (Scl-70), Anti-Sjogren A (SSA), Anti-Sjogren B (SSB), Anti-Deya, Anti-Centromere, Anti-Histone REFERENCE RANGE: Negative <100 U/mL Positive >120 U/mL Equivocal 100-120 U/mL The following reference range is applicable for Anti-Double Strand DNA (dsDNA): REFERENCE RANGE: Negative <100 IU/mL Positive >120 IU/mL Equivocal 100-120 IU/mL Anti ds DNA 10 <100 IU/mL [facility] [place] Anti Histone 14 U/mL <100 [facility] [place] Anti DEYA-1 11 U/mL <100 [facility] Anti LABOR RELATIONS ANALYST 488 U/mL High <100 [facility] Anti SSA 9 U/mL <100 [facility] Anti SSB 13 U/mL <100 [facility] Anti-Centromere 5 U/mL <100 [facility] [place] Anti-Scleroderma 15 U/mL <100 [place] Anti-Reza 18 U/mL <100 [place] Interpretation and review of laboratory results Abnormal [place] POC Glucose Fingerstickon Glucose [Mass/Vol] 153 mg/dL High 65 - 105 mg/dL [place] Interpretation and review of laboratory results Abnormal [place] Glucose [Mass/Vol] 126 mg/dL High 65 - 105 mg/dL [place] Interpretation and review of laboratory results Abnormal [place] Glucose [Mass/Vol] 148 mg/dL High 65 - 105 mg/dL [place] Interpretation and review of laboratory results Abnormal [place] BASIC METABOLIC PANELon 10 Anion gap [Moles/Vol] 17 mmol/L 9 - 17 mmol/L [place] Bun/Cre Ratio NOT REPORTED [place] Calcium [Mass/Vol] 9.5 mg/dL 8.6 - 10. 4 mg/dL [place] Chloride [Moles/Vol] 102 mmol/L 98 - 10 7 mmol/L [place] CO2 [Moles/Vol] 18 mmol/L Low 20 - 31 mmol/L [place] Creatinine [Mass/Vol] 0.52 mg/dL 0.5 - 0.9 mg/dL [place] GFR >60 >60 mL/min [place] GFR Non- >60 >60 mL/min [place] GFR/1.73 sq M predicted among non-blacks MDRD (S/P/Bld) [Vol rate/Area] NOT REPORTED [place] GFR/1.73 sq M predicted among non-blacks MDRD (S/P/Bld) [Vol rate/Area] [place] Comment on above: Average GFR for 40-4 9 years old: 99 mL/min/1.73sq m Chronic Kidney Disease: <60 mL/min/1.73sq m Kidney failure: <15 mL/min/1.73sq m eGFR calculated using average adult body mass. Additional eGFR calculator available at: http://www.GlobeImmune/multiple_crcl_2012.htm Glucose [Mass/Vol] 146 mg/dL High 70 - 99 mg/dL [place] Interpretation and review of laboratory results Abnormal [place] Potassium [Moles/Vol] 4.4 mmol/L 3.7 - 5.3 mmol/L [place] Sodium [Moles/Vol] 137 mmol/L 135 - 144 mmol/L [place] Urea nitrogen [Mass/Vol] 9 mg/dL 6 - 20 mg/dL [place] CBCon 04-20-2019 Erythrocyte distribution width (RBC) [Ratio] 12.4 % 11.8 - 14.4 % [place] Hematocrit (Bld) [Volume fraction] 42.4 % 36.3 - 47.1 % [place] Hemoglobin (Bld) [Mass/Vol] 13.0 g/dL 11.9 - 15.1 g/dL [place] Interpretation and review of laboratory results Abnormal [place] MCH (RBC) [Entitic mass] 31.7 pg 25.2 - 33.5 pg [place] MCHC (RBC) [Mass/Vol] 30.7 g/dL 28.4 - 34.8 g/dL [place] MCV (RBC) [Entitic vol] 103.4 fL High 82.6 - 102.9 fL [place] Platelet mean volume (Bld) [Entitic vol] 10.7 fL 8.1 - 13.5 fL [place] Platelets (Bld) [#/Vol] 240 10*3/uL [place] RBC (Bld) [#/Vol] 4.10 10*6/uL 3.95 - 5.11 m/uL [place] WBC (Bld) [#/Vol] 0.0 10*3/uL 0.0 per 100 WBC [place] WBC (Bld) [#/Vol] 15.1 10*3/uL [place] ABDOMEN PELVIS W IV CONTR AST Additional Contrast? Noneon 04-20-2019 Cholesterol [Mass/Vol] Normal appendix. No bowel obstruction. Prior cholecystectomy and hysterectomy. Trace nonspecific free fluid in the posterior pelvis may be physiologic. [place], [facility] Incoming Radiant Results From [facility] - 04/20/2019 12:16 AM EDT EXAMINATION: CT [...] in the posterior pelvis may be physiologic. [place] EXAMINATION: CT OF T HE [...] No lymphadenopathy in the abdomen or pelvis. [place] HEMOGLOBIN A1Con 04-20-2019 Glucose [Mass/Vol] 111 mg/dL [place] Comment on above: The ADA and AACC rec ommend providing the estimated average glucose result to permit better patient understanding of their HBA1c result. HbA1c (Bld) [Mass fraction] 5.5 % 4 - 6 % [place] MRI Brain WO Contraston 10-0 [place], [facility] Incoming Radiant Results From [facility] - 04/20/2019 9:41 AM EDT EXAMINATION: MRI [...] abnormality. IMPRESSION: Unremarkable MRI of the brain. [place] EXAMINATION: MRI OF THE BRAIN [...] The soft tissues demonstrate no acute abnormality. [place] Unremarkable MRI of the brain. [place] POC Glucose Fingerstickon Glucose [Mass/Vol] 114 mg/dL High 65 - 105 mg/dL [place] Interpretation and review of laboratory results Abnormal [place] Glucose [Mass/Vol] 146 mg/dL High 65 - 105 mg/dL [place] Interpretation and review of laboratory results Abnormal [place] Glucose [Mass/Vol] 132 mg/dL High 65 - 105 mg/dL [place] Interpretation and review of laboratory results Abnormal [place] Glucose [Mass/Vol] 136 mg/dL High 65 - 105 mg/dL [place] Interpretation and review of laboratory results Abnormal [place] RHEUMATOID FACTORon 04-20-20 19 Rheumatoid Factor <10 <14 IU/mL [place], [place] Sedimentation Rateon 019 Sed Rate 12 mm 0 - 20 mm [place] APTTon 04-19-2019 aPTT Coag (Bld) [Time] 25.2 s [place] Basic Metabolic Panelon Anion gap [Moles/Vol] 17 mmol/L 9 - 17 mmol/L [place] Bun/Cre Ratio 17 [place] Calcium [Mass/Vol] 9.2 mg/dL 8.6 - 10. 4 mg/dL [place] Chloride [Moles/Vol] 102 mmol/L 98 - 10 7 mmol/L [place] CO2 [Moles/Vol] 22 mmol/L 20 - 31 mmol/L [place] Creatinine [Mass/Vol] 0.59 mg/dL 0.5 - 0.9 mg/dL [place] GFR >60 >60 mL/min [place] GFR Non- >60 >60 mL/min [place] Glucose [Mass/Vol] 115 mg/dL High 70 - 99 mg/dL [place] Interpretation and review of laboratory results Abnormal [place] Potassium [Moles/Vol] 3.3 mmol/L Low 3.7 - 5.3 mmol/L [place] Sodium [Moles/Vol] 141 mmol/L 135 - 144 mmol/L [place] Urea nitrogen [Mass/Vol] 10 mg/dL 6 - 20 mg/dL [place] Brain Natriuretic Peptideon 04-19-2019 Natriuretic peptide B (Bld) [Mass/Vol] Pro-BNP Reference Range: [place], [place] Comment on above: Rule Out: <300 Mitchell Zone: Age <50 300-450 Age 50-75 300-900 Age >75 300-1800 Usually represents mild to moderate HF but other cardiopulmonary causes cannot be ruled out. Rule In: Age <50 >450 Age 50-75 >900 Age >75 >1800 Natriuretic peptide B (Bld) [Mass/Vol] 57 pg/mL <300 [place], [place] Comment on above: Pro-BNP results alirio ot be compared to BNP results. C-REACTIVE PROTEINon 019 CRP [Mass/Vol] 4.9 mg/L 0 - 5 mg/L [place], [place] CBCon 04-19-2019 Erythrocyte distribution width (RBC) [Ratio] 11.9 % 11.8 - 14.4 % [place] Hematocrit (Bld) [Volume fraction] 35.3 % Low 36.3 - 47.1 % [place] Hemoglobin (Bld) [Mass/Vol] 12.3 g/dL 11.9 - 15.1 g/dL [place] Interpretation and review of laboratory results Abnormal [place] MCH (RBC) [Entitic mass] 30.8 pg 25.2 - 33.5 pg [place] MCHC (RBC) [Mass/Vol] 34.8 g/dL 28.4 - 34.8 g/dL [place] MCV (RBC) [Entitic vol] 88.5 fL 82.6 - 102.9 fL [place] Platelet mean volume (Bld) [Entitic vol] 10.0 fL 8.1 - 13.5 fL [place] Platelets (Bld) [#/Vol] 261 10*3/uL [place] RBC (Bld) [#/Vol] 3.99 10*6/uL 3.95 - 5.11 m/uL [place] WBC (Bld) [#/Vol] 0.0 10*3/uL 0.0 per 100 WBC [place] WBC (Bld) [#/Vol] 7.9 10*3/uL [place] CBC Auto Differentialon Basophils (Bld) [#/Vol] 0.03 10*3/uL [place] Basophils/100 WBC (Bld) 0 % 0 - 2 % M [place], [place] Differential Type NOT REPORTED [place] Eosinophils (Bld) [#/Vol] 10*3/uL [place] Eosinophils/100 WBC (Bld) 0 % Low 1 - 4 % [place] Erythrocyte distribution width (RBC) [Ratio] 11.9 % 11.8 - 14.4 % [place] Hematocrit (Bld) [Volume fraction] 37.4 % 36.3 - 47.1 % [place] Hemoglobin (Bld) [Mass/Vol] 13.0 g/dL 11.9 - 15.1 g/dL [place] Immature granulocytes (Bld) [#/Vol] 1 % High 0 [place] Immature granulocytes (Bld) [#/Vol] 0.06 10*3/uL [place] Interpretation and review of laboratory results Abnormal [place] Lymphocytes (Bld) [#/Vol] 1.00 10*3/uL Low [place] Lymphocytes/100 WBC (Bld) 11 % Low 24 - 43 % [place] MCH (RBC) [Entitic mass] 30.2 pg 25.2 - 33.5 pg [place] MCHC (RBC) [Mass/Vol] 34.8 g/dL 28.4 - 34.8 g/dL [place] MCV (RBC) [Entitic vol] 86.8 fL 82.6 - 102.9 fL [place] Monocytes (Bld) [#/Vol] 0.11 10*3/uL [place] Monocytes/100 WBC (Bld) 1 % Low 3 - 12 % [place] Platelet mean volume (Bld) [Entitic vol] 10.2 fL 8.1 - 13.5 fL [place] Platelets (Bld) [#/Vol] NOT REPORTED [place] Platelets (Bld) [#/Vol] 285 10*3/uL [place] RBC (Bld) [#/Vol] 4.31 10*6/uL 3.95 - 5.11 m/uL [place] RBC morphology finding Nom (Bld) NOT REPORTED [place] Segmented neutrophils/100 WBC (Bld) 87 % High 36 - 65 % [place] Segs [facility] 7.79 [facility] [place] WBC (Bld) [#/Vol] 9.0 10*3/uL [place] WBC (Bld) [#/Vol] 0.0 10*3/uL 0.0 per 100 WBC [place] WBC Morphology NOT REPORTED [place], [place] CT Head WO Contraston 2018 [place], [facility] Incoming Radiant Results From [facility] - 04/19/2019 1:52 PM EDT EXAMINATION: CT [...] soft tissues. IMPRESSION: No acute intracranial abnormality. [place] No acute intracrania l abnormality. [place] EXAMINATION: CT OF T SY HEAD [...] of the visualized skull or soft tissues. [facility] [place] CTA HEAD NECK W CONTRASTon 1 [place], [facility] Incoming Radiant Results From [facility] - 04/19/2019 3:48 PM EDT EXAMINATION: CTA [...] occlusion visualized within the head or [place] Mild beading of both cervical ICAs which may reflect FMD or arteritis. No flow limiting stenosis or large vessel occlusion visualized within the head or neck. [place] EXAMINATION: CTA OF THE HEAD [...] See separately dictated noncontrast head CT report. [place] CardiacOrdered By: Ena rock on 04-19-2019 Natriuretic peptide B (Bld) [Mass/Vol] 57 pg/mL (<300 ) [facility] Work Phone: Comment on above: Note: Pro-BNP result s cannot be compared to BNP results.Responsible Observer: CET ONE AUTOFILE ([id number]) [facility]acon 04-19-2019 Natriuretic peptide B (Bld) [Mass/Vol] Pro-BNP Reference Range: [facility] Work Phone: Comment on above: Note: Rule Out: <300 Mitchell Zone:Age <50 300-450Age 50-75 300-900Age >75 300-1800Usually represents mild to moderate HF but other cardiopulmonary causes cannotbe ruled out.Rule In:Age <50 >450Age 50-75 >900Age >75 >1800Responsible Observer: WILDER ANGELA AUTOFILE ([id number]) Troponin I.cardiac [Mass/Vol] See Note [facility] Work Phone: Comment on above: Note: Reference Rang e:<0.03 Within reference range.0.03-0.09 Possible myocardial damage.Repeat at appropriate intervals to rule out chronic elevation.>= 0.10 Indicative of myocardial damage.Patients with high levels of Biotin oral intake (i.e >5mg/day) may have falselydecreased Troponin T levels. Samples collected within 8 hours of biotin intakemay require additional information for diagnosis.Responsible Observer: [employer]ET ONE AUTOFILE ([id number]) Troponin T.cardiac [Mass/Vol] <0.03 ng/mL (<0.03) [facility] Work Phone: Comment on above: Note: Troponin T res ults cannot be compared to Troponin-I results.Responsible Observer: WILDER ONE AUTOFILE ([id number]) Comprehensive Metabolic Pane misti 04-19-2019 Albumin [Mass/Vol] 4.4 g/dL 3.5 - 5.2 g/dL [place] Albumin/Globulin [Mass ratio] 1.5 {ratio} [place] ALP [Catalytic activity/Vol] 99 U/L 35 - 104 U/L [place] ALT [Catalytic activity/Vol] 43 U/L High 5 - 33 U/L [place] Anion gap [Moles/Vol] 13 mmol/L 9 - 17 mmol/L [place] AST [Catalytic activity/Vol] 29 U/L <32 [place] Bilirubin Ql (U) 0.44 mg/dL 0.3 - 1.2 mg/dL [place] Bun/Cre Ratio NOT REPORTED [facility] [place] [place] Calcium [Mass/Vol] 9.1 mg/dL 8.6 - 10. 4 mg/dL [place] Chloride [Moles/Vol] 102 mmol/L 98 - 10 7 mmol/L [place] CO2 [Moles/Vol] 22 mmol/L 20 - 31 mmol/L [place] Creatinine [Mass/Vol] 0.53 mg/dL 0.5 - 0.9 mg/dL [place] GFR >60 >60 mL/min [place] GFR Non- >60 >60 mL/min [place] GFR/1.73 sq M predicted among non-blacks MDRD (S/P/Bld) [Vol rate/Area] [place] Comment on above: Average GFR for 40-4 9 years old: 99 mL/min/1.73sq m Chronic Kidney Disease: <60 mL/min/1.73sq m Kidney failure: <15 mL/min/1.73sq m eGFR calculated using average adult body mass. Additional eGFR calculator available at: http://www.[employer]obe[employer]e/multiple_crcl_2012.htm GFR/1.73 sq M predicted among non-blacks MDRD (S/P/Bld) [Vol rate/Area] NOT REPORTED [place] Glucose [Mass/Vol] 144 mg/dL High 70 - 99 mg/dL [place] Interpretation and review of laboratory results Abnormal [place] Potassium [Moles/Vol] 3.5 mmol/L Low 3.7 - 5.3 mmol/L [place] Protein [Mass/Vol] 7.3 g/dL 6.4 - 8.3 g/dL [place] Sodium [Moles/Vol] 137 mmol/L 135 - 144 mmol/L [place] Urea nitrogen [Mass/Vol] 9 mg/dL 6 - 20 mg/dL [place] HCG Qualitative, Serumon hCG Qual Negative NEGATIVE [place] Comment on above: Specimens with hCG l evels near the threshold of the test (25 mIU/mL) may give a negative or indeterminate result. In such cases, another test should be performed with a new specimen in 48-72 hours. If early is suspected clinically in this setting, correlation with quantitative serum b-hCG level is suggested. [facility] has confirmed the use of plasma for this test. This has not been cleared or approved by the U.S. Food and Drug Administration. The FDA has determined that such clearance is not necessary. HematologyOrdered By: Ena Fung on 04-19-2019 aPTT Coag (Bld) [Time] 25.2 s (23.2 -34.4 ) [facility] Work Phone: Comment on above: Note: Responsible Ob windows server engineer: CAONEFIVE AUTOFILE ([id number]) Hematocrit (Bld) [Volume fraction] 35.3 % Low (36.3-47.1 ) [facility] Work Phone: Comment on above: Note: Responsible Ob windows server engineer: XNT AUTOFILE ([id number]) Hemoglobin (Bld) [Mass/Vol] 12.3 g/dL (11.9-15.1 ) [facility] Work Phone: Comment on above: Note: Responsible Ob windows server engineer: XNT AUTOFILE ([id number]) INR Coag (PPP) [Relative time] 1.0 {INR} (0.9-1.2 ) [facility] Work Phone: Comment on above: Note: Responsible Ob windows server engineer: CAONEFIVE AUTOFILE ([id number]) MCH (RBC) [Entitic mass] 30.8 pg (25.2-33.5 ) [facility] Work Phone: Comment on above: Note: Responsible Ob windows server engineer: XNT AUTOFILE ([id number]) MCV (RBC) [Entitic vol] 88.5 fL (82. 6-102. 9 ) [facility] Work Phone: Comment on above: Note: Responsible Ob windows server engineer: XNT AUTOFILE ([id number]) Platelets (Bld) [#/Vol] 261 10*3/uL (138-453 ) [facility] Work Phone: Comment on above: Note: Responsible Ob windows server engineer: XNT AUTOFILE ([id number]) PT Coag (PPP) [Time] 10.3 s (9.7-12 .2 ) [facility] Work Phone: Comment on above: Note: Responsible Ob windows server engineer: CAONEFIVE AUTOFILE ([id number]) RBC (Bld) [#/Vol] 3.99 10*6/uL (3.95-5.11 ) [facility] Work Phone: Comment on above: Note: Responsible Ob windows server engineer: XNT AUTOFILE ([id number]) WBC (Bld) [#/Vol] 7.9 10*3/uL (3.5-11.3 ) [facility] Work Phone: Comment on above: Note: Responsible Ob windows server engineer: XNT AUTOFILE ([id number]) Hematologyon 04-19-2019 WBC (Bld) [#/Vol] 0.0 per_100_WBC (0.0) [facility] Work Phone: Comment on above: Note: Responsible Ob windows server engineer: XNT AUTOFILE ([id number]) Magnesiumon 04-19-2019 Magnesium [Mass/Vol] 2.0 mg/dL 1.6 - 2 .6 mg/dL [place] Metabolic Panelon 04-19-2019 GFR/1.73 sq M predicted among non-blacks MDRD (S/P/Bld) [Vol rate/Area] [place] Comment on above: Average GFR for 40-4 9 years old: 99 mL/min/1.73sq m Chronic Kidney Disease: <60 mL/min/1.73sq m Kidney failure: <15 mL/min/1.73sq m eGFR calculated using average adult body mass. Additional eGFR calculator available at: http://www.untapt.Message [employer]/multiple_crcl_2012.htm Stage 1: Some kidney damage normal GFR Stage 2: Mild kidney damage GFR 60-89 Stage 3: Moderate kidney damage GFR 30-59 Stage 4: Severe kidney damage GFR 15-29 Stage 5: Severe kidney damage GFR <15 ESRD - chronic treatment by dialysis or transplant Metabolic PanelOrdered By: Kevin Fung on 04-19-2019 Anion gap [Moles/Vol] 17 mmol/L (9-17 ) [facility] Work Phone: Comment on above: Note: Responsible Ob windows server engineer: CET ONE AUTOFILE ([id number]) Calcium [Mass/Vol] 9.2 mg/dL (8.6-10.4 ) [facility] Work Phone: Comment on above: Note: Responsible Ob windows server engineer: CET ONE AUTOFILE ([id number]) Chloride [Moles/Vol] 102 mmol/L (98-107 ) [facility] Work Phone: Comment on above: Note: Responsible Ob windows server engineer: CET ONE AUTOFILE ([id number]) CO2 [Moles/Vol] 22 mmol/L (20-31 ) [facility] Work Phone: Comment on above: Note: Responsible Ob windows server engineer: CET ONE AUTOFILE ([id number]) Creatinine [Mass/Vol] 0.59 mg/dL (0.50- 0.90 ) [facility] Work Phone: Comment on above: Note: Responsible Ob windows server engineer: CET ONE AUTOFILE ([id number]) Glucose [Mass/Vol] 115 mg/dL High (70-99 ) [facility] Work Phone: Comment on above: Note: Responsible Ob windows server engineer: CET ONE AUTOFILE ([id number]) Magnesium [Mass/Vol] 2.0 mg/dL (1.6-2.6 ) [facility] Work Phone: Comment on above: Note: Responsible Ob windows server engineer: CET ONE AUTOFILE ([id number]) Potassium [Moles/Vol] 3.3 mmol/L Low (3.7-5.3 ) [facility] Work Phone: Comment on above: Note: Responsible Ob windows server engineer: CET ONE AUTOFILE ([id number]) Sodium [Moles/Vol] 141 mmol/L (135-144 ) [facility] Work Phone: Comment on above: Note: Responsible Ob windows server engineer: CET ONE AUTOFILE ([id number]) Urea nitrogen [Mass/Vol] 10 mg/dL (6-20 ) [facility] Work Phone: Comment on above: Note: Responsible Ob windows server engineer: CET ONE AUTOFILE ([id number]) No Panel InformationOrdered By: Ena Fung on 04-19-2019 BNP Interpretation Pro-BNP Reference Range: [facility] Work Phone: Comment on above: Note: Rule Out: <300 Mitchell Zone:Age <50 300-450Age 50-75 300-900Age >75 300-1800Usually represents mild to moderate HF but other cardiopulmonary causes cannotbe ruled out.Rule In:Age <50 >450Age 50-75 >900Age >75 >1800Responsible Observer: CET ONE AUTOFILE ([id number]) NRBC Automated 0.0 per_100_WBC (0.0 ) [facility] Work Phone: Comment on above: Note: Responsible Ob windows server engineer: XNT AUTOFILE ([id number]) Troponin Interp. See Note [facility] Work Phone: Comment on above: Note: Reference Rang e:<0.03 Within reference range.0.03-0.09 Possible myocardial damage.Repeat at appropriate intervals to rule out chronic elevation.>= 0.10 Indicative of myocardial damage.Patients with high levels of Biotin oral intake (i.e >5mg/day) may have falselydecreased Troponin T levels. Samples collected within 8 hours of biotin intakemay require additional information for diagnosis.Responsible Observer: CET ONE AUTOFILE ([id number]) Troponin T <0.03 ng/mL (<0.03 ) [facility] Work Phone: Comment on above: Note: Troponin T res ults cannot be compared to Troponin-I results.Responsible Observer: CET ONE AUTOFILE ([id number]) OtherOrdered By: Ena bee on 04-19-2019 (cont.) See Note [facility] Work Phone: Comment on above: Note: Average GFR fo r 40-49 years old:99 mL/min/1.73sq mChronic Kidney Disease:<60 mL/min/1.73sq mKidney failure:<15 mL/min/1.73sq meGFR calculated using average adult body mass. Additional eGFR calculatoravailable at:http://www.GlobeImmune/multiple_crcl_2012.htmResponsible Observer: CET ONE AUTOFILE ([id number]) BUN/CRE Ratio 17 (9-20 ) [facility] Work Phone: Comment on above: Note: Responsible Ob windows server engineer: CET ONE AUTOFILE ([id number]) Erythrocyte distribution width (RBC) [Ratio] 11.9 % (11.8-14.4 ) [facility] Work Phone: Comment on above: Note: Responsible Ob windows server engineer: XNT AUTOFILE ([id number]) GFR, Amer >60 mL/min (>60 ) [facility] Work Phone: Comment on above: Note: Responsible Ob windows server engineer: CET ONE AUTOFILE ([id number]) GFR,non Amer >60 mL/min (>60 ) [facility] Work Phone: Comment on above: Note: Responsible Ob windows server engineer: CET ONE AUTOFILE ([id number]) MCHC (RBC) [Mass/Vol] 34.8 g/dL (28.4- 34.8 ) [facility] Work Phone: Comment on above: Note: Responsible Ob windows server engineer: XNT AUTOFILE ([id number]) Performing Lab: see note [facility] Work Phone: Comment on above: Note: [facility] makayla [address] [place] [id number] [phone] [place] [id number] Note: [address] [place] [id number] Platelet mean volume (Bld) [Entitic vol] 10.0 fL (8.1-13.5 ) [facility] Work Phone: Comment on above: Note: Responsible Ob windows server engineer: XNT AUTOFILE ([id number]) Reported Physicians See Note Healt [facility] Work Phone: Comment on above: Note: Reported Physi cians:Ordering: Erin DOWending: Ena Wray Staging: See Note [facility] Work Phone: Comment on above: Note: Stage 1: Some kidney damage normal GFRStage 2: Mild kidney damage GFR 60-89Stage 3: Moderate kidney damage GFR 30-59Stage 4: Severe kidney damage GFR 15-29Stage 5: Severe kidney damage GFR <15ESRD - chronic treatment by dialysis or transplantResponsible Observer: CET ONE AUTOFILE ([id number]) Troponin, High Sens NOT REPORTED ng/L (0-14 ) [facility] Work Phone: Protime-INRon 04-19-2019 INR Coag (PPP) [Relative time] 1.0 {INR} [place] PT Coag (PPP) [Time] 10.3 s [place] Sedimentation Rateon 019 Sed Rate 18 mm 0 - 20 mm [place] Troponinon 04-19-2019 Troponin I.cardiac [Mass/Vol] [place] Comment on above: Reference Range: [...] diagnosis. Troponin T.cardiac [Mass/Vol] ug/L <0.03 ng/mL [place] Comment on above: Troponin T results c annot be compared to Troponin-I results. Troponin, High Sensitivity NOT REPORTED 0 - 14 ng/L [place] Troponin I.cardiac [Mass/Vol] [place] Comment on above: Reference Range: [...] diagnosis. Troponin T.cardiac [Mass/Vol] ug/L <0.03 ng/mL [facility] [place] Comment on above: Troponin T results c annot be compared to Troponin-I results. Troponin, High Sensitivity NOT REPORTED 0 - 14 ng/L [place] XR CHEST PORTABLEon 04-19-20 EXAMINATION: ONE XRA Y VIEW OF THE CHEST 04/19/2019 1:39 pm COMPARISON: Chest 02/06/2019 HISTORY: ORDERING SYSTEM PROVIDED HISTORY: chest pain TECHNOLOGIST PROVIDED HISTORY: chest pain FINDINGS: The cardiomediastinal and hilar silhouettes appear unremarkable. The lungs appear clear. No pleural effusion evident. No pneumothorax is seen. No acute osseous abnormality is identified. [place], [facility] Incoming Radiant Results From [facility] - 04/19/2019 1:52 PM EDT EXAMINATION: ONE [...] No radiographic evidence of acute cardiopulmonary disease. [place] No radiographic evid ence of acute cardiopulmonary disease. [place] [facility] 01-21-2018 Cholesterol mass conc 248 mg/dL Invalid Interpretation Code <200 [facility] Cholesterol 248 mg/dL Invalid Interpretation Code <200 [facility] Metabolic Panelon 01-21-2018 Anion gap 3 molar conc 10 mmol/L Invalid Interpretation Code 9-17 [facility] Calcium mass conc 9.20 mg/dL Invalid Interpretation Code 8.6-10.4 [facility] Chloride molar conc 97 mmol/L Invalid Interpretation Code 98-107 [facility] CO2 molar conc 29 mmol/L Invalid Interpretation Code 20-31 [facility] Creatinine mass conc 0.51 mg/dL Invalid Interpretation Code 0.50-0.90 [facility] Glucose mass conc 120 mg/dL Invalid Interpretation Code 70-99 [facility] Potassium molar conc 4.0 mmol/L Invalid Interpretation Code 3.7-5.3 [facility] Sodium molar conc 136 mmol/L Invalid Interpretation Code 135-144 [facility] Urea nitrogen mass conc 11.0 mg/dL Invalid Interpretation Code 6-20 [facility] Anion gap 10 mmol/L Invalid Interpretation Code 9-17 [facility] BUN (urea nitrogen) 11 mg/dL Invalid Interpretation Code 6-20 [facility] Calcium 9.2 mg/dL Invalid Interpretation Code 8.6-10.4 [facility] Calcium mass conc 9.20 mg/dL Invalid Interpretation Code 8.6-10.4 [facility] Chloride 97 mmol/L Invalid Interpretation Code 98-107 [facility] CO2 29 mmol/L Invalid Interpretation Code 20-31 [facility] Creatinine 0.51 mg/dL Invalid Interpretation Code 0.50-0.90 [facility] Glucose mass conc 120 mg/dL Invalid Interpretation Code 70-99 [facility] Potassium molar conc 4.0 mmol/L Invalid Interpretation Code 3.7-5.3 [facility] Sodium 136 mmol/L Invalid Interpretation Code 135-144 [facility] Urea nitrogen mass conc 11.0 mg/dL Invalid Interpretation Code 6-20 [facility] Otheron 01-21-2018 Cholesterol.total/Audelia sterol in HDL mass ratio 7.3 {ratio} Invalid Interpretation Code <5 [facility] Urea nitrogen/Creatinine mass ratio (Bld) 22 Invalid Interpretation Code 9-20 [facility] NOT REPORTED Invalid Interpretation Code 1-30 [facility] >60 Invalid Interpretation Code >60 [facility] 106 Invalid Interpretation Code <100 [facility] 34 Invalid Interpretation Code >40 [facility] 708 Invalid Interpretation Code <150 [facility] Cholesterol to HDL Ratio 7.3 {ratio} Invalid Interpretation Code <5 [facility] Urea nitrogen/Creatinine mass ratio (Bld) 22 Invalid Interpretation Code 9-20 [facility] NOT REPORTED Invalid Interpretation Code 1-30 [facility] >60 Invalid Interpretation Code >60 [facility] 22 Invalid Interpretation Code 9-20 [facility] 34 Invalid Interpretation Code >40 [facility] 106 Invalid Interpretation Code <100 [facility] 708 Invalid Interpretation Code <150 [facility] Otheron 10-26-2017 2 Invalid Interpretation Code [facility] 2 Invalid Interpretation Code [facility] Metabolic Panelon 10-15-2017 Hemoglobin A1c/Hemoglobin.total mass fraction (Bld) 5.40 % Invalid Interpretation Code < 7 [facility] Hemoglobin A1c/Hemoglobin.total mass fraction (Bld) 5.40 % Invalid Interpretation Code < 7 [facility] Otheron 10-15-2017 0=No Invalid Interpretation Code [facility] [facility] 0=N/A Invalid Interpretation Code [facility] 1=Yes Invalid Interpretation Code [facility] 0 Invalid Interpretation Code [facility] 4 Invalid Interpretation Code [facility] Risk Level 2= 4-6 Invalid Interpretation Code [facility] managing chronic illness Invalid Interpretation Code [facility] 2=uncontrolled Invalid Interpretation Code [facility] 1=Controlled Invalid Interpretation Code [facility] managing chronic illness Invalid Interpretation Code [facility] Risk Level 2= 4-6 Invalid Interpretation Code [facility] 4 Invalid Interpretation Code [facility] 0=No Invalid Interpretation Code [facility] 0 Invalid Interpretation Code [facility] 1=Yes Invalid Interpretation Code [facility] 0=N/A Invalid Interpretation Code [facility] 2=uncontrolled Invalid Interpretation Code [facility] 1=Controlled Invalid Interpretation Code [facility] Thyroidon 10-05-2017 Thyroid stimulating hormone (TSH) 1.570 uIU/mL Invalid Interpretation Code 0.40-4.10 [facility] Thyroxine (T4) free 1.170 ng/dL Invalid Interpretation Code 0.80-1.90 [facility] Otheron 03-23-2017 0=N/A Invalid Interpretation Code [facility] Risk Level 3=7-9 Invalid Interpretation Code [facility] 8 Invalid Interpretation Code [facility] Needs Completed Invalid Interpretation Code [facility] 3=Yes Invalid Interpretation Code [facility] 2=uncontrolled Invalid Interpretation Code [facility] 1=Yes Invalid Interpretation Code [facility] 0=No Invalid Interpretation Code [facility] 0=N/A Invalid Interpretation Code [facility] Risk Level 3=7-9 Invalid Interpretation Code [facility] 8 Invalid Interpretation Code [facility] Needs Completed Invalid Interpretation Code [facility] 3=Yes Invalid Interpretation Code [facility] 2=uncontrolled Invalid Interpretation Code [facility] 1=Yes Invalid Interpretation Code [facility] 0=No Invalid Interpretation Code [facility] Vital Signs Date Time Vital Sign Value Performing Clinician Facility 03-12-2024 12:48-0400 Diastolic blood pressure 70 mm[Hg] Ena Fung 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 - [employer]PER[employer]OR [employer] Work Phone: [employer] 03-12-2024 12:48-0400 Heart rate 81 /min Ena Fung 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 - [employer]PERVISOR [employer] Work Phone: [employer] 03-12-2024 12:48-0400 Systolic blood pressure 121 mm[Hg] Ena Fung 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 - [employer]PER[employer] Work Phone: [employer] 03-12-2024 11:47-0400 Body temperature 98.01 [degF] Ena Fung 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 - [employer]PER[employer] Work Phone: [facility] 03-12-2024 11:47-0400 Respiratory rate 15 /min Ena Fung APRN - SHAMIR Work Phone: [facility] 03-12-2024 11:47-0400 SaO2% (BldA) [Mass fraction] 96 % Ena Fung APRN - SHAMIR Work Phone: [facility] 02-08-2024 17:02-0400 Diastolic blood pressure 91 mm[Hg] Ena Fung CNP Work Phone: [facility] Work Phone: 02-08-2024 17:02-0400 Systolic blood pressure 140 mm[Hg] Ena Fung CNP Work Phone: [facility] Work Phone: 02-08-2024 16:53-0400 Body height 162.56 cm Ena Fung CNP Work Phone: [facility] Work Phone: 02-08-2024 16:53-0400 Body mass index (BMI) [Ratio] 32.8 kg/m2 Ena Fung CNP Work Phone: [facility] Work Phone: 02-08-2024 16:53-0400 Body surface area Derived from formula 1.9 m2 Ena Fnug CNP Work Phone: [facility] Work Phone: 02-08-2024 16:53-0400 Body weight 86.64 kg Ena Fung CNP Work Phone: [facility] Work Phone: 02-08-2024 16:53-0400 Diastolic blood pressure 92 mm[Hg] Ena Fung CNP Work Phone: [facility] Work Phone: 02-08-2024 16:53-0400 Heart rate 76 /min Ena Fung CNP Work Phone: [facility] Work Phone: 02-08-2024 16:53-0400 SaO2% (BldA) [Mass fraction] 98 % Ena Fung CNP Work Phone: [facility] Work Phone: 02-08-2024 16:53-0400 Systolic blood pressure 154 mm[Hg] Ena Fung CNP Work Phone: [facility] Work Phone: 01-27-2024 09:02-0400 Diastolic blood pressure 117 mm[Hg] Ena Fung CNP Work Phone: [facility] Work Phone: 01-27-2024 09:02-0400 Systolic blood pressure 148 mm[Hg] Ena Fung CNP Work Phone: [facility] Work Phone: 01-27-2024 08:51-0400 Body height 162.56 cm Ena Fung CNP Work Phone: [facility] Work Phone: 01-27-2024 08:51-0400 Body mass index (BMI) [Ratio] 32.8 kg/m2 Ena Fung CNP Work Phone: [facility] Work Phone: 01-27-2024 08:51-0400 Body surface area Derived from formula 1.9 m2 Ena Fung CNP Work Phone: [facility] Work Phone: 01-27-2024 08:51-0400 Body weight 86.64 kg Ena Fung CNP Work Phone: [facility] Work Phone: 01-27-2024 08:51-0400 Diastolic blood pressure 85 mm[Hg] Ena Fung [employer]PER[employer] Work Phone: [facility] Work Phone: 01-27-2024 08:51-0400 Heart rate 85 /min Ena Fung [employer] Work Phone: [facility] Work Phone: 01-27-2024 08:51-0400 SaO2% (BldA) [Mass fraction] 97 % Ena Fung [employer] Work Phone: [facility] Work Phone: 01-27-2024 08:51-0400 Systolic blood pressure 156 mm[Hg] Ena Fung [employer] Work Phone: [facility] Work Phone: 12-23-2023 18:42-0400 Diastolic blood pressure 85 mm[Hg] Jaxson Ferrer MD Work Phone: [employer] 12-23-2023 18:42-0400 Heart rate 92 /min Jaxson Ferrer MD Work Phone: [employer] 12-23-2023 18:42-0400 SaO2% (BldA) [Mass fraction] 95 % Jaxson Ferrer MD Work Phone: [employer] 12-23-2023 18:42-0400 Systolic blood pressure 124 mm[Hg] Jaxson Ferrer MD Work Phone: [employer] 12-23-2023 13:53-0400 Body mass index (BMI) [Ratio] 33.99 kg/m2 Jaxson Ferrer MD Work Phone: [employer] 12-23-2023 13:53-0400 Body temperature 98.4 [degF] Jaxson Ferrer MD Work Phone: [employer] 12-23-2023 13:53-0400 Body weight 89.81 kg Jaxson Ferrer MD Work Phone: [employer] 12-23-2023 13:53-0400 Respiratory rate 18 /min Jaxson Ferrer MD Work Phone: [facility] 09-07-2023 13:56-0500 Body height 162.56 cm Ena Fung CNP Work Phone: [facility] Work Phone: 09-07-2023 13:56-0500 Body mass index (BMI) [Ratio] 33.3 kg/m2 Ena Fung CNP Work Phone: [facility] Work Phone: 09-07-2023 13:56-0500 Body surface area Derived from formula 1.9 m2 Ena Fung CNP Work Phone: [facility] Work Phone: 09-07-2023 13:56-0500 Body temperature 98.4 [degF] Ena Fung CNP Work Phone: [facility] Work Phone: 09-07-2023 13:56-0500 Body weight 88 kg Ena Fung CNP Work Phone: [facility] Work Phone: 09-07-2023 13:56-0500 Diastolic blood pressure 82 mm[Hg] Ena Fung CNP Work Phone: [facility] Work Phone: 09-07-2023 13:56-0500 Heart rate 85 /min Ena Fung CNP Work Phone: [facility] Work Phone: 09-07-2023 13:56-0500 SaO2% (BldA) [Mass fraction] 97 % Ena Fung CNP Work Phone: [facility] Work Phone: 09-07-2023 13:56-0500 Systolic blood pressure 123 mm[Hg] Ena Kenton [employer]PER[employer] Work Phone: [facility] Work Phone: 08-20-2023 08:32-0500 Body height 162.56 cm Ena Fnug [employer]PER[employer] Work Phone: [facility] Work Phone: 08-20-2023 08:32-0500 Body mass index (BMI) [Ratio] 32.6 kg/m2 Ena Fung [employer]PER[employer] Work Phone: [facility] Work Phone: 08-20-2023 08:32-0500 Body surface area Derived from formula 1.9 m2 Ena Fung SUPERVIS[employer] Work Phone: [facility] Work Phone: 08-20-2023 08:32-0500 Body weight 86.18 kg Ena Fung [employer]PER[employer] Work Phone: [facility] Work Phone: 08-20-2023 08:32-0500 Diastolic blood pressure 79 mm[Hg] Ena Fung [employer]PERVIS[employer] Work Phone: [facility] Work Phone: 08-20-2023 08:32-0500 Heart rate 106 /min Ena Fung SUPERVIS[employer] Work Phone: [facility] Work Phone: 08-20-2023 08:32-0500 SaO2% (BldA) [Mass fraction] 97 % Ena Fung CNP Work Phone: [facility] Work Phone: 08-20-2023 08:32-0500 Systolic blood pressure 138 mm[Hg] Ena Kenton [employer]PER[employer] Work Phone: [facility] Work Phone: 08-12-2023 17:00-0500 Diastolic blood pressure 84 mm[Hg] Ena Fung 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 - SUPERVISOR [employer] Work Phone: [facility] I and love and you 08-12-2023 17:00-0500 Heart rate 80 /min Ena Oviedo CNP Work Phone: [facility] I and love and you 08-12-2023 17:00-0500 Respiratory rate 12 /min Ena Oviedo CNP Work Phone: [facility] I and love and you 08-12-2023 17:00-0500 SaO2% (BldA) [Mass fraction] 100 % Ena Oviedo CNP Work Phone: [facility] I and love and you 08-12-2023 17:00-0500 Systolic blood pressure 106 mm[Hg] Ena Oviedo CNP Work Phone: [facility] I and love and you 08-12-2023 15:24-0500 Body height 162.6 cm Ena Oviedo CNP Work Phone: [facility] I and love and you 08-12-2023 15:24-0500 Body mass index (BMI) [Ratio] 33.99 kg/m2 Ena Oviedo [employer] Work Phone: [facility] I and love and you 08-12-2023 15:24-0500 Body temperature 98.1 [degF] Ena Oviedo CNP Work Phone: [facility] I and love and you 08-12-2023 15:24-0500 Body weight 89.81 kg Ena Oviedo [employer]PER[employer] Work Phone: [facility] I and love and you 08-04-2023 14:22-0500 Body height 162.56 cm Ena Fung CNP Work Phone: [facility] Work Phone: 08-04-2023 14:22-0500 Body mass index (BMI) [Ratio] 33.6 kg/m2 Ena Fung CNP Work Phone: [facility] Work Phone: 08-04-2023 14:22-0500 Body surface area Derived from formula 1.9 m2 Ena Fung CNP Work Phone: [facility] Work Phone: 08-04-2023 14:22-0500 Body weight 88.91 kg Ena Fung CNP Work Phone: [facility] Work Phone: 08-04-2023 14:22-0500 Diastolic blood pressure 87 mm[Hg] Ena Fung CNP Work Phone: [facility] Work Phone: 08-04-2023 14:22-0500 Heart rate 90 /min Ena Fung CNP Work Phone: [facility] Work Phone: 08-04-2023 14:22-0500 SaO2% (BldA) [Mass fraction] 97 % Ena Fung CNP Work Phone: [facility] Work Phone: 08-04-2023 14:22-0500 Systolic blood pressure 133 mm[Hg] Ena Fung CNP Work Phone: [facility] Work Phone: 07-20-2023 10:45-0500 Body mass index (BMI) [Ratio] 32.61 kg/m2 Lsia Blackman DO Work Phone: [employer] 07-20-2023 10:45-0500 Body temperature 100.8 [degF] Lisa Blackman DO Work Phone: [employer] 07-20-2023 10:45-0500 Body weight 86.18 kg Lisa Blackmna DO Work Phone: [employer] 07-20-2023 10:45-0500 Diastolic blood pressure 86 mm[Hg] Lisa Blackman DO Work Phone: [employer] 01-02-2024 10:45-0500 Heart rate 100 /min Lisa Blackman DO Work Phone: [employer] [facility] [employer] 07-20-2023 10:45-0500 Respiratory rate 20 /min Lisa Blackman DO Work Phone: [employer] [facility] 07-20-2023 10:45-0500 SaO2% (BldA) [Mass fraction] 96 % Lisa Blackman DO Work Phone: [employer] [facility] [employer] 07-20-2023 10:45-0500 Systolic blood pressure 153 mm[Hg] Lisa Blackman DO Work Phone: [facility] [employer] 03-11-2023 12:15-0400 Diastolic blood pressure 54 mm[Hg] [facility] 03 [facility] [employer] 03-11-2023 12:15-0400 Heart rate 88 /min [facility] 03 [facility] [employer] 03-11-2023 12:15-0400 Respiratory rate 18 /min [facility] 03 [facility] [employer] [facility] 03-11-2023 12:15-0400 Systolic blood pressure 100 mm[Hg] [facility] 03 [facility] [employer] 03-05-2023 15:35-0400 Body temperature 100 [degF] [facility] Work Phone: [facility] [employer] 03-05-2023 15:35-0400 Diastolic blood pressure 96 mm[Hg] Ena Fung [facility] Work Phone: [facility] [facility] 03-05-2023 15:35-0400 Heart rate 99 /min Ena Fung [facility] Work Phone: [facility] [employer] 03-05-2023 15:35-0400 Respiratory rate 18 /min Ena Fung [facility] Work Phone: [facility] [employer] 03-05-2023 15:35-0400 SaO2% (BldA) [Mass fraction] 99 % Ena Fung [facility] Work Phone: [employer] [facility] 08-18-2023 15:35-0400 Systolic blood pressure 145 mm[Hg] Ena Oviedo CNP Work Phone: [employer] 02-22-2023 16:16-0400 Diastolic blood pressure 46 mm[Hg] Ena Oviedo CNP Work Phone: [employer] 02-22-2023 16:16-0400 Heart rate 78 /min Ena Oviedo CNP Work Phone: [employer] 02-22-2023 16:16-0400 SaO2% (BldA) [Mass fraction] 95 % Ena Oviedo CNP Work Phone: [employer] 02-22-2023 16:16-0400 Systolic blood pressure 116 mm[Hg] Ena Oviedo CNP Work Phone: [employer] 02-22-2023 13:40-0400 Body height 162.6 cm Ena Oviedo CNP Work Phone: [employer] 02-22-2023 13:40-0400 Body mass index (BMI) [Ratio] 33.47 kg/m2 Ena Oviedo CNP Work Phone: [employer] 02-22-2023 13:40-0400 Body temperature 98.1 [degF] Ena Oviedo CNP Work Phone: [employer] 02-22-2023 13:40-0400 Body weight 88.45 kg Ena Oviedo CNP Work Phone: [employer] 02-22-2023 13:40-0400 Respiratory rate 16 /min Ena Oviedo CNP Work Phone: [employer] 02-01-2023 13:54-0400 Body height 162.56 cm Ena Fung CNP Work Phone: [facility] Work Phone: 02-01-2023 13:54-0400 Body mass index (BMI) [Ratio] 34.2 kg/m2 Ena Fung CNP Work Phone: [facility] Work Phone: 02-01-2023 13:54-0400 Body surface area Derived from formula 2 m2 Ena Fung CNP Work Phone: [facility] Work Phone: 02-01-2023 13:54-0400 Body temperature 98.3 [degF] Ena Fung CNP Work Phone: [facility] Work Phone: 02-01-2023 13:54-0400 Body weight 90.27 kg Ena Fung CNP Work Phone: [facility] Work Phone: 02-01-2023 13:54-0400 Diastolic blood pressure 84 mm[Hg] Ena Fung CNP Work Phone: [facility] Work Phone: 02-01-2023 13:54-0400 Heart rate 72 /min Ena Fung CNP Work Phone: [facility] Work Phone: 02-01-2023 13:54-0400 SaO2% (BldA) [Mass fraction] 96 % Ena Fung CNP Work Phone: [facility] Work Phone: 02-01-2023 13:54-0400 Systolic blood pressure 121 mm[Hg] Ena Fung [employer] Work Phone: [facility] Work Phone: 12-21-2022 11:10-0400 Diastolic blood pressure 75 mm[Hg] Ena Fung 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 - SUPERVISOR [employer] Work Phone: [facility] 12-21-2022 11:10-0400 Systolic blood pressure 113 mm[Hg] Ena Oviedo CNP Work Phone: [facility] [employer] and love and you 12-21-2022 11:09-0400 Body temperature 97.7 [degF] Ena Oviedo CNP Work Phone: [facility] I and love and you 12-21-2022 11:09-0400 Heart rate 68 /min Ena Oviedo CNP Work Phone: [facility] I and love and you 12-21-2022 11:09-0400 Respiratory rate 16 /min Ena Oviedo CNP Work Phone: [facility] I and love and you 12-21-2022 11:09-0400 SaO2% (BldA) [Mass fraction] 98 % Ena Oviedo CNP Work Phone: [facility] I and love and you 12-21-2022 10:34-0400 Body height 162.56 cm Ena Fung CNP Work Phone: [facility] Work Phone: 12-21-2022 10:34-0400 Body mass index (BMI) [Ratio] 33.6 kg/m2 Ena Fung CNP Work Phone: [facility] Work Phone: 12-21-2022 10:34-0400 Body surface area Derived from formula 1.9 m2 Ena Fung CNP Work Phone: [facility] Work Phone: 12-21-2022 10:34-0400 Body temperature 98.3 [degF] Ena Fung CNP Work Phone: [facility] Work Phone: 12-21-2022 10:34-0400 Body weight 88.91 kg Ena Fung CNP Work Phone: [facility] Work Phone: 12-21-2022 10:34-0400 Diastolic blood pressure 66 mm[Hg] Ena Fung CNP Work Phone: [facility] Work Phone: 12-21-2022 10:34-0400 Heart rate 66 /min Ena Fung CNP Work Phone: [facility] Work Phone: 12-21-2022 10:34-0400 SaO2% (BldA) [Mass fraction] 97 % Ena Fung CNP Work Phone: [facility] Work Phone: 12-21-2022 10:34-0400 Systolic blood pressure 110 mm[Hg] Ena Fung CNP Work Phone: [facility] Work Phone: 11-19-2022 11:05-0400 Body height 162.56 cm Ena Fung CNP Work Phone: [facility] Work Phone: 11-19-2022 11:05-0400 Body mass index (BMI) [Ratio] 34.2 kg/m2 Ena Fung CNP Work Phone: [facility] Work Phone: 11-19-2022 11:05-0400 Body surface area Derived from formula 2 m2 Ena Fung CNP Work Phone: [facility] Work Phone: 11-19-2022 11:05-0400 Body temperature 98.8 [degF] Ena Fung CNP Work Phone: [facility] Work Phone: 11-19-2022 11:05-0400 Body weight 90.45 kg Ena Fung CNP Work Phone: [facility] Work Phone: 11-19-2022 11:05-0400 Diastolic blood pressure 79 mm[Hg] Ena Kenton [employer] Work Phone: [facility] Work Phone: 11-19-2022 11:05-0400 Heart rate 93 /min Ena Kenton [employer] Work Phone: [facility] Work Phone: 11-19-2022 11:05-0400 SaO2% (BldA) [Mass fraction] 97 % Ena Kenton [employer] Work Phone: [facility] Work Phone: 11-19-2022 11:05-0400 Systolic blood pressure 121 mm[Hg] Ena Kenton [employer] Work Phone: [facility] Work Phone: 08-20-2022 18:00-0500 Diastolic blood pressure 62 mm[Hg] Ronan Rodriguez MD Work Phone: [employer] 08-20-2022 18:00-0500 Heart rate 72 /min Ronan Rodriguez MD Work Phone: [employer] 08-20-2022 18:00-0500 Respiratory rate 24 /min Ronan Rodriguez MD Work Phone: [employer] 08-20-2022 18:00-0500 SaO2% (BldA) [Mass fraction] 98 % Ronan Rodriguez MD Work Phone: [facility] [employer] 08-20-2022 18:00-0500 Systolic blood pressure 100 mm[Hg] Ronan Rodriguez MD Work Phone: [facility] [employer] 08-20-2022 15:06-0500 Body temperature 98.29 [degF] Ronan Rodriguez MD Work Phone: [facility] [employer] 08-20-2022 14:04-0500 Diastolic blood pressure 58 mm[Hg] Ena Fung 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 - [employer]PER[employer] Work Phone: [facility] [employer] 08-20-2022 14:04-0500 Heart rate 62 /min Ena Oviedo [facility] Work Phone: [facility] [employer] [facility] 08-20-2022 14:04-0500 Respiratory rate 15 /min Ena Fung APRN [facility] Work Phone: [facility] 08-20-2022 14:04-0500 SaO2% (BldA) [Mass fraction] 96 % Ena Fung APRN [facility] Work Phone: [facility] 08-20-2022 14:04-0500 Systolic blood pressure 97 mm[Hg] Ena Fung APRN [facility] Work Phone: [facility] 08-20-2022 12:15-0500 Body temperature 98.2 [degF] Ena Fung APRN [facility] Work Phone: [facility] [employer] [facility] 07-28-2022 10:57-0500 Diastolic blood pressure 63 mm[Hg] Jaxson Ferrer MD Work Phone: [facility] [employer] [facility] 07-28-2022 10:57-0500 SaO2% (BldA) [Mass fraction] 99 % Jaxson Ferrer MD Work Phone: [facility] [employer] [facility] 07-28-2022 10:57-0500 Systolic blood pressure 131 mm[Hg] Jaxson Ferrer MD Work Phone: [facility] [employer] [facility] 07-28-2022 08:45-0500 Respiratory rate 18 /min Jaxson Ferrer MD Work Phone: [facility] [employer] [facility] 07-28-2022 08:43-0500 Body temperature 98.01 [degF] Jaxson Ferrer MD Work Phone: [facility] [employer] [facility] 07-28-2022 08:43-0500 Heart rate 68 /min Jaxson Ferrer MD Work Phone: [facility] 05-01-2022 18:56-0400 Respiratory rate 15 /min Thad Berrios MD [facility] [employer] [facility] [employer] 05-01-2022 18:30-0400 Body temperature 98.4 [degF] Thad Berrios MD [facility] 05-01-2022 18:30-0400 Diastolic blood pressure 41 mm[Hg] Thad Berrios MD [facility] 05-01-2022 18:30-0400 Heart rate 74 /min Thad Berrios MD [facility] 05-01-2022 18:30-0400 SaO2% (BldA) [Mass fraction] 97 % Thad Berrios MD [facility] 05-01-2022 18:30-0400 Systolic blood pressure 108 mm[Hg] Thad Berrios MD [facility] 04-13-2022 11:37-0400 Body height 162.56 cm Ena Kenton CNP Work Phone: [facility] Work Phone: 04-13-2022 11:37-0400 Body mass index (BMI) [Ratio] 32.6 kg/m2 Ena Kenton [employer] Work Phone: [facility] Work Phone: 04-13-2022 11:37-0400 Body surface area Derived from formula 1.91 m2 Ena Fung CNP Work Phone: [facility] Work Phone: 04-13-2022 11:37-0400 Body surface area Derived from formula 1.9 m2 Ena Kenton [employer] Work Phone: [facility] Work Phone: 04-13-2022 11:37-0400 Body temperature 97.3 [degF] Ena Kenton CNP Work Phone: [facility] Work Phone: 04-13-2022 11:37-0400 Body weight 86.18 kg Ena Kenton [employer] Work Phone: [facility] Work Phone: 04-13-2022 11:37-0400 Diastolic blood pressure 80 mm[Hg] Ena Fung CNP Work Phone: [facility] Work Phone: 04-13-2022 11:37-0400 Heart rate 81 /min Ena Fung CNP Work Phone: [facility] Work Phone: 04-13-2022 11:37-0400 SaO2% (BldA) [Mass fraction] 98 % Ena Fung CNP Work Phone: [facility] Work Phone: 04-13-2022 11:37-0400 Systolic blood pressure 118 mm[Hg] Ena Fung CNP Work Phone: [facility] Work Phone: 01-30-2022 08:13-0400 Body height 162.56 cm Ena Fung CNP Work Phone: [facility] Work Phone: 01-30-2022 08:13-0400 Body mass index (BMI) [Ratio] 32.8 kg/m2 Ena Fung CNP Work Phone: [facility] Work Phone: 01-30-2022 08:13-0400 Body surface area Derived from formula 1.92 m2 Ena Fung CNP Work Phone: [facility] Work Phone: 01-30-2022 08:13-0400 Body surface area Derived from formula 1.9 m2 Ena Fung CNP Work Phone: [facility] Work Phone: 01-30-2022 08:13-0400 Body temperature 97.4 [degF] Ena Fung CNP Work Phone: [facility] Work Phone: 01-30-2022 08:13-0400 Body weight 86.55 kg Ena Fung CNP Work Phone: [facility] Work Phone: 01-30-2022 08:13-0400 Diastolic blood pressure 76 mm[Hg] Ena Fung CNP Work Phone: [facility] Work Phone: 01-30-2022 08:13-0400 Heart rate 81 /min Ena Fung [employer]ING Work Phone: [facility] Work Phone: 01-30-2022 08:13-0400 SaO2% (BldA) [Mass fraction] 98 % Ena Fung CNP Work Phone: [facility] Work Phone: 01-30-2022 08:13-0400 Systolic blood pressure 120 mm[Hg] Ena Fung [employer] Work Phone: [facility] Work Phone: 12-19-2021 17:58-0400 SaO2% (BldA) [Mass fraction] 96 % Santhosh Schwab MD Work Phone: [facility] [employer] [facility] 12-19-2021 17:53-0400 Diastolic blood pressure 67 mm[Hg] Santhosh Schwab MD Work Phone: [employer] 12-19-2021 17:53-0400 Systolic blood pressure 126 mm[Hg] Santhosh Schwab MD Work Phone: [facility] [employer] [facility] 12-19-2021 17:52-0400 Body temperature 98.01 [degF] Santhosh Schwab MD Work Phone: [employer] 12-19-2021 17:52-0400 Heart rate 80 /min Santhosh Schwab MD Work Phone: [facility] [employer] [facility] 12-19-2021 17:52-0400 Respiratory rate 18 /min Santhosh Schwab MD Work Phone: [facility] 11-26-2021 11:46-0400 Body height 162.56 cm Ena Fung CNP Work Phone: [facility] Work Phone: 11-26-2021 11:46-0400 Body mass index (BMI) [Ratio] 32.3 kg/m2 Ena Fung CNP Work Phone: [facility] Work Phone: 11-26-2021 11:46-0400 Body surface area Derived from formula 1.91 m2 Ena Fung CNP Work Phone: [facility] Work Phone: 11-26-2021 11:46-0400 Body surface area Derived from formula 1.9 m2 Ena Fung CNP Work Phone: [facility] Work Phone: 11-26-2021 11:46-0400 Body temperature 97.7 [degF] Ena Fung CNP Work Phone: [facility] Work Phone: 11-26-2021 11:46-0400 Body weight 85.28 kg Ena Fung CNP Work Phone: [facility] Work Phone: 11-26-2021 11:46-0400 Diastolic blood pressure 72 mm[Hg] Ena Fung CNP Work Phone: [facility] Work Phone: 11-26-2021 11:46-0400 Heart rate 73 /min Ena Fung CNP Work Phone: [facility] Work Phone: 11-26-2021 11:46-0400 SaO2% (BldA) [Mass fraction] 96 % Ena Fung CNP Work Phone: [facility] Work Phone: 11-26-2021 11:46-0400 Systolic blood pressure 118 mm[Hg] Ena Fung CNP Work Phone: [facility] Work Phone: 11-21-2021 19:27-0400 Body height 162.6 cm Ena Fung APRN - [employer] Work Phone: [facility] 11-21-2021 19:27-0400 Body mass index (BMI) [Ratio] 32.61 kg/m2 Ena Fung APRN - [employer] Work Phone: [facility] 11-21-2021 19:27-0400 Body temperature 98.01 [degF] Ena Fung APRN - SHAMIR [facility] 11-21-2021 19:27-0400 Body weight 86.18 kg Ena Fung APRN - [employer] Work Phone: [facility] 11-21-2021 19:27-0400 Diastolic blood pressure 71 mm[Hg] Ena Fung APRN - [employer] Work Phone: [facility] 11-21-2021 19:27-0400 Heart rate 86 /min Ena Fung APRN - SHAMIR [facility] 11-21-2021 19:27-0400 Respiratory rate 16 /min Ena Fung APRN - [employer] [facility] 11-21-2021 19:27-0400 SaO2% (BldA) [Mass fraction] 99 % Ena Fung APRN - [employer] [facility] 11-21-2021 19:27-0400 Systolic blood pressure 131 mm[Hg] Ena Fung APRN - [employer] [facility] 11-06-2021 13:45-0400 Diastolic blood pressure 68 mm[Hg] [facility] 11-06-2021 13:45-0400 Heart rate 57 /min [address] 11-06-2021 13:45-0400 Respiratory rate 14 /min [address] 11-06-2021 13:45-0400 SaO2% (BldA) [Mass fraction] 99 % [address] 11-06-2021 13:45-0400 Systolic blood pressure 118 mm[Hg] [address] 10-30-2021 12:00-0400 Body temperature 98.6 [degF] Ronan Rodriguez MD Work Phone: [facility] 10-30-2021 12:00-0400 Diastolic blood pressure 53 mm[Hg] Ronan Rodriguez MD Work Phone: [facility] 10-30-2021 12:00-0400 Heart rate 69 /min Ronan Rodriguez MD Work Phone: [facility] 10-30-2021 12:00-0400 Respiratory rate 18 /min Ronan Rodriguez MD Work Phone: [facility] 10-30-2021 12:00-0400 SaO2% (BldA) [Mass fraction] 98 % Ronan Rodriguez MD Work Phone: [facility] 10-30-2021 12:00-0400 Systolic blood pressure 133 mm[Hg] Ronan Rodriguez MD Work Phone: [facility] 10-27-2021 11:56-0400 Body height 162.56 cm Ena Fung CNP Work Phone: [facility] Work Phone: 10-27-2021 11:56-0400 Body mass index (BMI) [Ratio] 33 kg/m2 Ena Fung CNP Work Phone: [facility] Work Phone: 10-27-2021 11:56-0400 Body surface area Derived from formula 1.92 m2 Ena Fung CNP Work Phone: [facility] Work Phone: 10-27-2021 11:56-0400 Body temperature 97.9 [degF] Ena Fung [employer] Work Phone: [facility] Work Phone: 10-27-2021 11:56-0400 Body weight 87.09 kg Ena Fung [employer]PER[employer] Work Phone: [facility] Work Phone: 10-27-2021 11:56-0400 Diastolic blood pressure 88 mm[Hg] Ena Fung [employer]PER[employer] Work Phone: [facility] Work Phone: 10-27-2021 11:56-0400 Heart rate 103 /min Ena Fung [employer]PER[employer] Work Phone: [facility] Work Phone: 10-27-2021 11:56-0400 SaO2% (BldA) [Mass fraction] 98 % Ena Fung CNP Work Phone: [facility] Work Phone: 10-27-2021 11:56-0400 Systolic blood pressure 118 mm[Hg] Ena Fung CNP Work Phone: [facility] Work Phone: 10-23-2021 07:50-0400 Body temperature 97.81 [degF] Janae Oropeza MD Work Phone: [facility] 10-23-2021 07:00-0400 Diastolic blood pressure 72 mm[Hg] Janae Oropeza MD Work Phone: [facility] 10-23-2021 07:00-0400 Heart rate 68 /min Janae Oropeza MD Work Phone: [facility] 10-23-2021 07:00-0400 Respiratory rate 12 /min Janae Oropeza MD Work Phone: [facility] 10-23-2021 07:00-0400 SaO2% (BldA) [Mass fraction] 93 % Janae Oropeza MD Work Phone: [facility] 10-23-2021 07:00-0400 Systolic blood pressure 98 mm[Hg] Janae Oropeza MD Work Phone: [facility] 10-20-2021 20:59-0400 Body mass index (BMI) [Ratio] 31.45 kg/m2 Janae Oropeza MD Work Phone: [facility] 10-20-2021 20:59-0400 Body weight 83.1 kg Janae Oropeza MD Work Phone: [facility] 10-19-2021 22:43-0400 Body height 162.6 cm Janae Oropeza MD Work Phone: [facility] 10-19-2021 21:45-0400 Diastolic blood pressure 54 mm[Hg] Olaf Pineda MD Work Phone: [facility] 10-19-2021 21:45-0400 Heart rate 64 /min Olaf Pineda MD Work Phone: [facility] 10-19-2021 21:45-0400 Respiratory rate 18 /min Olaf Pineda MD Work Phone: [facility] 10-19-2021 21:45-0400 SaO2% (BldA) [Mass fraction] 99 % Olaf Pineda MD Work Phone: [facility] 10-19-2021 21:45-0400 Systolic blood pressure 132 mm[Hg] Olaf Pineda MD Work Phone: [facility] 10-19-2021 20:47-0400 Body mass index (BMI) [Ratio] 33.23 kg/m2 Olaf Pineda MD Work Phone: [facility] 10-19-2021 20:47-0400 Body temperature 97.9 [degF] Olaf Pineda MD Work Phone: [facility] 10-19-2021 20:47-0400 Body weight 87.8 kg Olaf Pineda MD Work Phone: [facility] 10-19-2021 20:06-0400 Body height 162.6 cm Olaf Pineda MD Work Phone: [facility] 10-13-2021 14:04-0400 Body height 162.56 cm Ena Fung CNP Work Phone: [facility] Work Phone: 10-13-2021 14:04-0400 Body mass index (BMI) [Ratio] 32.7 kg/m2 Ena Fung CNP Work Phone: [facility] Work Phone: 10-13-2021 14:04-0400 Body surface area Derived from formula 1.92 m2 Ena Fung CNP Work Phone: [facility] Work Phone: 10-13-2021 14:04-0400 Body temperature 97.2 [degF] Ena Fung CNP Work Phone: [facility] Work Phone: 10-13-2021 14:04-0400 Body weight 86.35 kg Ena Fung CNP Work Phone: [facility] Work Phone: 10-13-2021 14:04-0400 Diastolic blood pressure 78 mm[Hg] Ena Fung CNP Work Phone: [facility] Work Phone: 10-13-2021 14:04-0400 Heart rate 78 /min Ena Fung CNP Work Phone: [facility] Work Phone: 10-13-2021 14:04-0400 SaO2% (BldA) [Mass fraction] 99 % Ena Fung CNP Work Phone: [facility] Work Phone: 10-13-2021 14:04-0400 Systolic blood pressure 122 mm[Hg] Ena Fung CNP Work Phone: [facility] Work Phone: 10-07-2021 13:04-0400 Body temperature 98.49 [degF] Santhosh Schwab MD Work Phone: [facility] 10-07-2021 13:04-0400 Diastolic blood pressure 94 mm[Hg] Santhosh Schwab MD Work Phone: [facility] 10-07-2021 13:04-0400 Heart rate 85 /min Santhosh Schwab MD Work Phone: [email or web address] [facility] 10-07-2021 13:04-0400 Respiratory rate 18 /min Santhosh Schwab MD Work Phone: [facility] 10-07-2021 13:04-0400 SaO2% (BldA) [Mass fraction] 96 % Santhosh Schwab MD Work Phone: [facility] 10-07-2021 13:04-0400 Systolic blood pressure 152 mm[Hg] Santhosh Schwab MD Work Phone: [facility] 10-07-2021 07:34-0400 Body height 162.6 cm Santhosh Schwab MD Work Phone: [facility] 10-06-2021 22:34-0400 Body mass index (BMI) [Ratio] 32.65 kg/m2 Santhosh Schwab MD Work Phone: [facility] 10-06-2021 22:34-0400 Body weight 86.27 kg Santhosh Schwab MD Work Phone: [facility] 08-14-2021 10:59-0500 Body height 162.6 cm Geoff Chu MD Work Phone: [facility] 08-14-2021 10:59-0500 Body mass index (BMI) [Ratio] 32.51 kg/m2 Geoff Chu MD Work Phone: [facility] 08-14-2021 10:59-0500 Body temperature 97.39 [degF] Geoff Chu MD Work Phone: [facility] 08-14-2021 10:59-0500 Body weight 85.91 kg Geoff Chu MD Work Phone: [facility] 08-14-2021 10:59-0500 Diastolic blood pressure 63 mm[Hg] Geoff Chu MD Work Phone: [facility] 08-14-2021 10:59-0500 Heart rate 79 /min Geoff Chu MD Work Phone: [facility] 08-14-2021 10:59-0500 Respiratory rate 18 /min Geoff Chu MD Work Phone: [facility] 08-14-2021 10:59-0500 SaO2% (BldA) [Mass fraction] 97 % Geoff Chu MD Work Phone: [facility] 08-14-2021 10:59-0500 Systolic blood pressure 120 mm[Hg] Geoff Chu MD Work Phone: [facility] 07-08-2021 14:55-0500 Diastolic blood pressure 65 mm[Hg] Ena Fung 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 - [employer] Work Phone: [facility] 07-08-2021 14:55-0500 Heart rate 66 /min Ena Fung 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 - [employer] Work Phone: [facility] 07-08-2021 14:55-0500 Respiratory rate 16 /min Ena Fung 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 - [employer] Work Phone: [facility] 07-08-2021 14:55-0500 SaO2% (BldA) [Mass fraction] 95 % Ena Fung 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 - [employer] Work Phone: [facility] 07-08-2021 14:55-0500 Systolic blood pressure 125 mm[Hg] Ena Fung 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 - [employer] Work Phone: [facility] 07-08-2021 12:18-0500 Body temperature 98.1 [degF] Ena Fung EFFIE Oviedo CNP Work Phone: [facility] 06-19-2021 17:15-0500 Diastolic blood pressure 55 mm[Hg] Nat Mora MD Work Phone: [facility] 06-19-2021 17:15-0500 Heart rate 70 /min Nat Mora MD Work Phone: [facility] 06-19-2021 17:15-0500 Respiratory rate 20 /min Nat Mora MD Work Phone: [facility] 06-19-2021 17:15-0500 SaO2% (BldA) [Mass fraction] 98 % Nat Mora MD Work Phone: [facility] 06-19-2021 17:15-0500 Systolic blood pressure 106 mm[Hg] Nat Mora MD Work Phone: [facility] 06-19-2021 14:20-0500 Body height 162.6 cm Nat Mora MD Work Phone: [facility] 06-19-2021 14:20-0500 Body mass index (BMI) [Ratio] 31.93 kg/m2 Nat Mora MD Work Phone: [facility] 06-19-2021 14:20-0500 Body temperature 97.3 [degF] Nat Mora MD Work Phone: [facility] 06-19-2021 14:20-0500 Body weight 84.37 kg Nat Mora MD Work Phone: [facility] 06-06-2021 13:45-0500 Diastolic blood pressure 72 mm[Hg] Mariana Adames DO Work Phone: [facility] 06-06-2021 13:45-0500 Heart rate 62 /min Mariana Adames DO Work Phone: [facility] 06-06-2021 13:45-0500 Respiratory rate 19 /min Mariana Adames DO Work Phone: [facility] 06-06-2021 13:45-0500 Systolic blood pressure 139 mm[Hg] Mariana Adames DO Work Phone: [facility] 06-06-2021 13:15-0500 SaO2% (BldA) [Mass fraction] 98 % Mariana Adames DO Work Phone: [facility] 06-06-2021 09:48-0500 Body temperature 97.3 [degF] Mariana Adames DO Work Phone: [facility] 05-22-2021 16:55-0400 Diastolic blood pressure 92 mm[Hg] Ruiz Romeor MD Work Phone: [facility] Work Phone: 05-22-2021 16:55-0400 Systolic blood pressure 177 mm[Hg] Ruiz Romero MD Work Phone: [facility] Work Phone: 05-22-2021 16:53-0400 Body mass index (BMI) [Ratio] 30.9 kg/m2 Ruiz Romero MD Work Phone: [facility] Work Phone: 05-22-2021 16:53-0400 Body temperature 97.81 [degF] Ruiz Romero MD Work Phone: [facility] Work Phone: 05-22-2021 16:53-0400 Body weight 81.65 kg Ruiz Romero MD Work Phone: [facility] Work Phone: 05-22-2021 16:53-0400 Heart rate 77 /min Ruiz Romero MD Work Phone: [facility] Work Phone: 05-22-2021 16:53-0400 Respiratory rate 16 /min Ruiz Romero MD Work Phone: [facility] Work Phone: 05-22-2021 16:53-0400 SaO2% (BldA) [Mass fraction] 98 % Ruiz Romero MD Work Phone: [facility] Work Phone: 03-20-2021 16:03-0400 Body height 162.56 cm Ena Fung CNP Work Phone: [facility] Work Phone: 03-20-2021 16:03-0400 Body mass index (BMI) [Ratio] 31.9 kg/m2 Ena Fung CNP Work Phone: [facility] Work Phone: 03-20-2021 16:03-0400 Body surface area Derived from formula 1.9 m2 Ena Fung CNP Work Phone: [facility] Work Phone: 03-20-2021 16:03-0400 Body weight 84.37 kg Ena Fung CNP Work Phone: [facility] Work Phone: 02-05-2021 19:19-0400 Body height 162.56 cm Ena Fung CNP Work Phone: [facility] Work Phone: 02-05-2021 19:19-0400 Body mass index (BMI) [Ratio] 31.9 kg/m2 Ena Fung CNP Work Phone: [facility] Work Phone: 02-05-2021 19:19-0400 Body surface area Derived from formula 1.9 m2 Ena Fung CNP Work Phone: [facility] Work Phone: 02-05-2021 19:19-0400 Body temperature 95.1 [degF] Ena Fung CNP Work Phone: [facility] Work Phone: 02-05-2021 19:19-0400 Body weight 84.37 kg Ena Fung SUPER[employer] Work Phone: [facility] Work Phone: 02-05-2021 19:19-0400 Diastolic blood pressure 74 mm[Hg] Ena Fung [employer] Work Phone: [facility] Work Phone: 02-05-2021 19:19-0400 Heart rate 62 /min Ena Fung [employer]PER[employer] Work Phone: [facility] Work Phone: 02-05-2021 19:19-0400 Respiratory rate 18 /min Ena Fung [employer]PER[employer] Work Phone: [facility] Work Phone: 02-05-2021 19:19-0400 SaO2% (BldA) [Mass fraction] 99 % Ena Fung [employer] Work Phone: [facility] Work Phone: 02-05-2021 19:19-0400 Systolic blood pressure 110 mm[Hg] Ena Fung [employer]PER[employer] Work Phone: [facility] Work Phone: 01-29-2021 06:32-0400 Body temperature 98.8 [degF] Antony Borges MD Work Phone: [facility] Work Phone: 01-29-2021 06:32-0400 Diastolic blood pressure 76 mm[Hg] Antony Borges MD Work Phone: [facility] Work Phone: 01-29-2021 06:32-0400 Heart rate 65 /min Antony Borges MD Work Phone: [facility] Work Phone: 01-29-2021 06:32-0400 Respiratory rate 16 /min Antony Borges MD Work Phone: [facility] Work Phone: 3 06:32-0400 SaO2% (BldA) [Mass fraction] 99 % Antony Borges MD Work Phone: [facility] Work Phone: 01-29-2021 06:32-0400 Systolic blood pressure 134 mm[Hg] Antony Borges MD Work Phone: [facility] Work Phone: 01-08-2021 16:50-0400 Body height 162.56 cm Ena Fung CNP Work Phone: [employer] [facility] Work Phone: 01-08-2021 16:50-0400 Body mass index (BMI) [Ratio] 32.5 kg/m2 Ena Fung CNP Work Phone: [facility] Work Phone: 01-08-2021 16:50-0400 Body surface area Derived from formula 1.91 m2 Ena Fung CNP Work Phone: [facility] Work Phone: 01-08-2021 16:50-0400 Body temperature 96.2 [degF] Ena Fung CNP Work Phone: [facility] Work Phone: 01-08-2021 16:50-0400 Body weight 86 kg Ena Fung CNP Work Phone: [facility] Work Phone: 01-08-2021 16:50-0400 Diastolic blood pressure 90 mm[Hg] Ena Kenton CNP Work Phone: [facility] Work Phone: 01-08-2021 16:50-0400 Heart rate 73 /min Ena Fung CNP Work Phone: [facility] Work Phone: 01-08-2021 16:50-0400 Respiratory rate 18 /min Ena Fung CNP Work Phone: [facility] Work Phone: 01-08-2021 16:50-0400 SaO2% (BldA) [Mass fraction] 99 % Ena Fung CNP Work Phone: [facility] Work Phone: 01-08-2021 16:50-0400 Systolic blood pressure 132 mm[Hg] Ena Fung CNP Work Phone: [facility] Work Phone: 01-03-2021 15:01-0400 Body temperature 98.01 [degF] Olaf Pineda MD Work Phone: [facility] Work Phone: 01-03-2021 15:01-0400 Diastolic blood pressure 64 mm[Hg] Olaf Pineda MD Work Phone: [facility] Work Phone: 01-03-2021 15:01-0400 Heart rate 55 /min Olaf Pineda MD Work Phone: [facility] Work Phone: 01-03-2021 15:01-0400 Respiratory rate 16 /min Olaf Pineda MD Work Phone: [facility] Work Phone: 01-03-2021 15:01-0400 SaO2% (BldA) [Mass fraction] 100 % Olaf Pineda MD Work Phone: [facility] Work Phone: 01-03-2021 15:01-0400 Systolic blood pressure 112 mm[Hg] Olaf Pineda MD Work Phone: [facility] Work Phone: 01-03-2021 04:00-0400 Body mass index (BMI) [Ratio] 32.17 kg/m2 Olaf Pineda MD Work Phone: [facility] Work Phone: 01-03-2021 04:00-0400 Body weight 85 kg Olaf Pineda MD Work Phone: [facility] Work Phone: 01-02-2021 12:28-0400 Body height 162.6 cm Olaf Pineda MD Work Phone: [facility] Work Phone: 11-22-2020 11:51-0400 Body mass index (BMI) [Ratio] 32.61 kg/m2 Santhosh Schwab MD Work Phone: [facility] Work Phone: 11-22-2020 11:51-0400 Body temperature 98.49 [degF] Santhosh Schwab MD Work Phone: [facility] Work Phone: 11-22-2020 11:51-0400 Body weight 86.18 kg Santhosh Schwab MD Work Phone: [facility] Work Phone: 11-22-2020 11:51-0400 Diastolic blood pressure 73 mm[Hg] Santhosh Schwab MD Work Phone: [facility] Work Phone: 11-22-2020 11:51-0400 Heart rate 64 /min Santhosh Schwab MD Work Phone: [facility] Work Phone: 11-22-2020 11:51-0400 Respiratory rate 16 /min Santhosh Schwab MD Work Phone: [facility] Work Phone: 11-22-2020 11:51-0400 SaO2% (BldA) [Mass fraction] 98 % Santhosh Schwab MD Work Phone: [facility] Work Phone: 11-22-2020 11:51-0400 Systolic blood pressure 127 mm[Hg] Santhosh Schwab MD Work Phone: [facility] Work Phone: 09-04-2020 15:16-0500 BMI (Body Mass Index) 34 kg/m2 [facility] Work Phone: 09-04-2020 15:16-0500 Body Temperature 97.9 [degF] [facility] Work Phone: 09-04-2020 15:16-0500 Body weight 89.81 kg [facility] Work Phone: 09-04-2020 15:16-0500 BP Diastolic 100 mm[Hg] [facility] Work Phone: 09-04-2020 15:16-0500 BP Systolic 140 mm[Hg] [facility] Work Phone: 09-04-2020 15:16-0500 BSA (Body Surface Area) 1.95 m2 [facility] Work Phone: 09-04-2020 15:16-0500 Height 162.56 cm [facility] Work Phone: 09-04-2020 15:16-0500 Pulse (Heart Rate) 91 /min [facility] Work Phone: 09-04-2020 15:16-0500 Pulse Oximetry 98 % Ena Fung [facility] Work Phone: 09-04-2020 15:16-0500 Respiratory Rate 14 /min Ena Fung [facility] Work Phone: 09-04-2020 15:16-0500 SaO2% (BldA) [Mass fraction] 98 % Ena Fung [facility] Work Phone: [facility] Work Phone: 08-29-2020 07:06-0500 Body Temperature 98.1 [degF] Mariana Adames [facility] Work Phone: 08-29-2020 07:06-0500 BP Diastolic 58 mm[Hg] Mariana Adames [facility] Work Phone: 08-29-2020 07:06-0500 BP Systolic 112 mm[Hg] Mariana Adames [facility] Work Phone: 08-29-2020 07:06-0500 Pulse (Heart Rate) 53 /min Mariana Admaes [facility] Work Phone: 08-29-2020 07:06-0500 Pulse Oximetry 95 % Mariana Adames [facility] Work Phone: 08-29-2020 07:06-0500 Respiratory Rate 16 /min Mariana Adames [facility] Work Phone: 08-29-2020 04:06-0500 BMI (Body Mass Index) 34.02 kg/m2 Mariana Adames [facility] Work Phone: 08-29-2020 04:06-0500 Body weight 89.9 kg Mariana Adames [facility] Work Phone: 08-28-2020 07:50-0500 Height 162.6 cm Mariana Ellis [facility] Work Phone: 06-17-2020 13:37-0500 BP Diastolic 57 mm[Hg] Ena Fung [facility] [place] 06-17-2020 13:37-0500 BP Systolic 118 mm[Hg] [facility] [place] 06-17-2020 13:37-0500 Pulse (Heart Rate) 57 /min [facility] [place] 06-17-2020 13:37-0500 Pulse Oximetry 99 % [facility] [place] 06-17-2020 13:37-0500 Respiratory Rate 16 /min Ena Fung [facility] 06-17-2020 10:28-0500 BMI (Body Mass Index) 33.81 kg/m2 [facility] [place] 06-17-2020 10:28-0500 Body Temperature 96.8 [degF] [facility] [place] 06-17-2020 10:28-0500 Body weight 89.36 kg [facility] [place] 06-17-2020 10:28-0500 Height 162.6 cm [place], [place] 05-02-2020 13:35-0400 BMI (Body Mass Index) 33.8 kg/m2 [facility] Work Phone: 05-02-2020 13:35-0400 Body weight 90.72 kg [facility] Work Phone: 05-02-2020 13:35-0400 BSA (Body Surface Area) 1.97 m2 [facility] Work Phone: 05-02-2020 13:35-0400 Height 163.83 cm [facility] Work Phone: 04-28-2020 15:50-0400 BP Diastolic 77 mm[Hg] [facility] [place] 04-28-2020 15:50-0400 BP Systolic 142 mm[Hg] [facility] [place] 04-28-2020 15:48-0400 BMI (Body Mass Index) 32.44 kg/m2 [facility] 04-28-2020 15:48-0400 Body Temperature 97.11 [degF] [facility] [place] 04-28-2020 15:48-0400 Body weight 85.73 kg Ena Boyer [facility] [place] 04-28-2020 15:48-0400 Height 162.6 cm Ena Boyer [facility] [place] 04-28-2020 15:48-0400 Pulse (Heart Rate) 74 /min Ena Boyer [facility] 04-28-2020 15:48-0400 Pulse Oximetry 98 % Ena Boyer [facility] [place] 04-28-2020 15:48-0400 Respiratory Rate 12 /min Ena Boyer [facility] [place] 01-15-2020 10:04-0400 Body height 163.83 cm Ena Fung CNP Work Phone: [facility] Work Phone: Comment on above: self 01-15-2020 10:04-0400 Body mass index (BMI) [Ratio] 33.8 kg/m2 Ena Fung CNP Work Phone: [facility] Work Phone: Comment on above: self 01-15-2020 10:04-0400 Body surface area Derived from formula 1.97 m2 Ena Fung CNP Work Phone: [facility] Work Phone: Comment on above: self 01-15-2020 10:04-0400 Body weight 90.72 kg Ena Fung CNP Work Phone: [facility] Work Phone: Comment on above: self 12-30-2019 06:34-0400 Body Temperature 97.7 [degF] Michael [facility] [place] 12-30-2019 06:34-0400 BP Diastolic 64 mm[Hg] [facility] [place] 12-30-2019 06:34-0400 BP Systolic 114 mm[Hg] [facility] [place] 12-30-2019 06:34-0400 Pulse (Heart Rate) 70 /min [facility] [place] 12-30-2019 06:34-0400 Pulse Oximetry 98 % [facility] [place] 12-30-2019 06:34-0400 Respiratory Rate 17 /min [facility] [place] 12-29-2019 09:45-0400 BP Diastolic 64 mm[Hg] Rl [facility] , [place] 12-29-2019 09:45-0400 BP Systolic 118 mm[Hg] [facility] [place] 12-29-2019 09:45-0400 Pulse (Heart Rate) 54 /min Rl Carlota [facility] 12-29-2019 09:45-0400 Pulse Oximetry 99 % Rl Blanc [facility] , [place] 12-29-2019 09:45-0400 Respiratory Rate 16 /min Rl [facility] 12-29-2019 07:38-0400 Body Temperature 98.8 [degF] [facility] 12-29-2019 06:32-0400 BMI (Body Mass Index) 34.81 kg/m2 Rl Carlota [facility] 12-29-2019 06:32-0400 Body Temperature 97 [degF] [facility] 12-29-2019 06:32-0400 Body weight 92 kg Rl [facility] [place] 12-29-2019 06:32-0400 BP Diastolic 68 mm[Hg] [facility] [place] 12-29-2019 06:32-0400 BP Systolic 114 mm[Hg] [facility] [place] 12-29-2019 06:32-0400 Pulse (Heart Rate) 52 /min [facility] 12-29-2019 06:32-0400 Pulse Oximetry 97 % Rl [place] [facility] , [place] 12-29-2019 06:32-0400 Respiratory Rate 14 /min [facility] 12-28-2019 14:00-0400 Height 162.6 cm Rl [facility] , [place] 10-10-2019 11:56-0400 Body Temperature 97.9 [degF] Terrence Lyle [facility] 10-10-2019 11:56-0400 BP Diastolic 77 mm[Hg] Terrence Lyle [facility], [place] 10-10-2019 11:56-0400 BP Systolic 152 mm[Hg] Terrence Lyle [facility] 10-10-2019 11:56-0400 Pulse (Heart Rate) 73 /min Terrence Lyle [facility] [place], [place] 10-10-2019 11:56-0400 Pulse Oximetry 96 % Terrence Lyle [facility] [place] 10-10-2019 11:56-0400 Respiratory Rate 14 /min [facility] L[facility] [facility] [place] 10[place]10-2019 11:30-0400 BMI (Body Mass Index) 30.55 kg/m2 Terrence Lyle [facility] 10-10-2019 11:30-0400 Body weight 80.74 kg Terrence Lyle [facility] [place] 10-10-2019 11:30-0400 Height 162.6 cm Terrence Lyle [facility] [place] 08-29-2019 13:47-0500 BP Diastolic 65 mm[Hg] Ena Fung [employer] Work Phone: 08-29-2019 13:47-0500 BP Systolic 137 mm[Hg] Ena [employer] Work Phone: 08-29-2019 11:57-0500 BMI (Body Mass Index) 31.93 kg/m2 Ena [employer] Work Phone: 08-29-2019 11:57-0500 Body Temperature 97.81 [degF] Ena [employer] Work Phone: 08-29-2019 11:57-0500 Body weight 84.37 kg Ena [employer] Work Phone: 08-29-2019 11:57-0500 Height 162.6 cm Ena Fung [employer] Work Phone: 08-29-2019 11:57-0500 Pulse (Heart Rate) 68 /min Ena Fung [employer] Work Phone: 08-29-2019 11:57-0500 Pulse Oximetry 97 % Ena Fung [employer] Work Phone: 08-29-2019 11:57-0500 Respiratory Rate 16 /min Ena Fung [employer] Work Phone: 08-21-2019 13:18-0500 Diastolic blood pressure 70 mm[Hg] Janae Landon MD Work Phone: [employer] Work Phone: 08-21-2019 13:18-0500 Heart rate 62 /min Janae Landon MD Work Phone: [employer] Work Phone: 08-21-2019 13:18-0500 Respiratory rate 18 /min Janae Landon MD Work Phone: [employer] Work Phone: 08-21-2019 13:18-0500 SaO2% (BldA) [Mass fraction] 98 % Janae Landon MD Work Phone: [employer] Work Phone: 08-21-2019 13:18-0500 Systolic blood pressure 130 mm[Hg] Janae Landon MD Work Phone: [employer] Work Phone: 08-21-2019 09:14-0500 Body mass index (BMI) [Ratio] 31.93 kg/m2 Janae Landon MD Work Phone: [employer] Work Phone: 08-21-2019 09:14-0500 Body temperature 98.01 [degF] Janae Landon MD Work Phone: [employer] Work Phone: 08-21-2019 09:14-0500 Body weight 84.37 kg Janae Landon MD Work Phone: [facility] Work Phone: 06-08-2019 20:30-0500 BP Diastolic 85 mm[Hg] [facility] [place] 06-08-2019 20:30-0500 BP Systolic 154 mm[Hg] [facility] [place] 06-08-2019 20:30-0500 Pulse (Heart Rate) 84 /min [facility] 06-08-2019 20:30-0500 Respiratory Rate 18 /min [facility] 06-08-2019 19:10-0500 BMI (Body Mass Index) 30.55 kg/m2 [facility] 06-08-2019 19:10-0500 Body weight 80.74 kg [facility] [place] 06-08-2019 19:10-0500 Height 162.6 cm [facility] [place] 06-08-2019 18:58-0500 Body Temperature 97.59 [degF] [facility] 06-08-2019 18:57-0500 Pulse Oximetry 98 % [facility] [place] 04-21-2019 08:30-0400 Body Temperature 97.7 [degF] J[facility]e [facility] [place] 04-21-2019 08:30-0400 BP Diastolic 67 mm[Hg] Janae [facility] [place] 04-21-2019 08:30-0400 BP Systolic 135 mm[Hg] Janae [facility] [place] 04-21-2019 08:30-0400 Pulse (Heart Rate) 77 /min Janae [facility] [place] 04-21-2019 08:30-0400 Pulse Oximetry 99 % Janae [facility] [place] 04-21-2019 08:30-0400 Respiratory Rate 21 /min J[facility]e [facility] [place] 04-20-2019 04:39-0400 BMI (Body Mass Index) 32.75 kg/m2 Janae Mccabe [facility] 04-20-2019 04:39-0400 Body weight 86.55 kg [facility] [place] 04-20-2019 04:39-0400 Height 162.6 cm [facility] [place] 04-19-2019 18:33-0400 Pulse (Heart Rate) 67 /min [facility] 04-19-2019 18:33-0400 Respiratory Rate 18 /min [facility] 04-19-2019 18:22-0400 BP Diastolic 78 mm[Hg] [facility] [place] 04-19-2019 18:22-0400 BP Systolic 150 mm[Hg] [facility] [place] 04-19-2019 13:30-0400 Pulse Oximetry 99 % [facility] [place] 04-19-2019 13:25-0400 BMI (Body Mass Index) 32.44 kg/m2 [facility] 04-19-2019 13:25-0400 Body Temperature 97.39 [degF] [facility] 04-19-2019 13:25-0400 Body weight 85.73 kg [facility] [place] 06-23-2018 17:46-0500 BMI (Body Mass Index) 30.76 kg/m2 [facility] 06-23-2018 17:46-0500 Body Temperature 97 [degF] [facility] 06-23-2018 17:46-0500 BP Diastolic 64 mm[Hg] [facility] 06-23-2018 17:46-0500 BP Systolic 108 mm[Hg] [facility] 06-23-2018 17:46-0500 BSA (Body Surface Area) 1.94 m2 [facility] 06-23-2018 17:46-0500 Height 163.83 cm [facility] 06-23-2018 17:46-0500 Pulse (Heart Rate) 70 /min [facility] 06-23-2018 17:46-0500 Pulse Oximetry 96 % [facility] 06-23-2018 17:46-0500 Respiratory Rate 20 /min [facility] 06-23-2018 17:46-0500 Weight 82.56 kg [facility] 04-26-2018 18:49-0400 BMI (Body Mass Index) 32.11 kg/m2 [facility] 04-26-2018 18:49-0400 Body Temperature 97.1 [degF] [facility] 04-26-2018 18:49-0400 BP Diastolic 80 mm[Hg] [facility] 04-26-2018 18:49-0400 BP Systolic 128 mm[Hg] [facility] 04-26-2018 18:49-0400 BSA (Body Surface Area) 1.98 m2 [facility] 04-26-2018 18:49-0400 Height 163.83 cm [facility] 04-26-2018 18:49-0400 Pulse (Heart Rate) 74 /min [facility] 04-26-2018 18:49-0400 Pulse Oximetry 95 % [facility] 04-26-2018 18:49-0400 Respiratory Rate 20 /min [facility] 04-26-2018 18:49-0400 Weight 86.18 kg [facility] 04-26-2018 17:49-0400 BMI (Body Mass Index) 32.11 kg/m2 [facility] 04-26-2018 17:49-0400 Body Temperature 97.1 [degF] [facility] 04-26-2018 17:49-0400 BP Diastolic 80 mm[Hg] [facility] 04-26-2018 17:49-0400 BP Systolic 128 mm[Hg] [facility] 04-26-2018 17:49-0400 BSA (Body Surface Area) 1.98 m2 [facility] 04-26-2018 17:49-0400 Height 163.83 cm [facility] 04-26-2018 17:49-0400 Pulse (Heart Rate) 74 /min [facility] 04-26-2018 17:49-0400 Pulse Oximetry 95 % [facility] 04-26-2018 17:49-0400 Respiratory Rate 20 /min [facility] 04-26-2018 17:49-0400 Weight 86.18 kg [facility] 01-20-2018 18:17-0400 BMI (Body Mass Index) 31.62 kg/m2 [facility] 01-20-2018 18:17-0400 Body Temperature 98.2 [degF] [facility] 01-20-2018 18:17-0400 BP Diastolic 80 mm[Hg] [facility] 01-20-2018 18:17-0400 BP Systolic 110 mm[Hg] [facility] 01-20-2018 18:17-0400 BSA (Body Surface Area) 1.97 m2 [facility] 01-20-2018 18:17-0400 Height 163.83 cm [facility] 01-20-2018 18:17-0400 Pulse (Heart Rate) 84 /min [facility] 01-20-2018 18:17-0400 Pulse Oximetry 97 % [facility] 01-20-2018 18:17-0400 Respiratory Rate 18 /min [facility] 01-20-2018 18:17-0400 Weight 84.88 kg [facility] 01-20-2018 17:17-0400 BMI (Body Mass Index) 31.62 kg/m2 [facility] 01-20-2018 17:17-0400 Body Temperature 98.2 [degF] [facility] 01-20-2018 17:17-0400 BP Diastolic 80 mm[Hg] [facility] 01-20-2018 17:17-0400 BP Systolic 110 mm[Hg] [facility] 01-20-2018 17:17-0400 BSA (Body Surface Area) 1.97 m2 [facility] 01-20-2018 17:17-0400 Height 163.83 cm [facility] 01-20-2018 17:17-0400 Pulse (Heart Rate) 84 /min [facility] 01-20-2018 17:17-0400 Pulse Oximetry 97 % [facility] 01-20-2018 17:17-0400 Respiratory Rate 18 /min [facility] 01-20-2018 17:17-0400 Weight 84.88 kg [facility] 10-15-2017 14:10-0400 BP Diastolic 80 mm[Hg] [facility] 10-15-2017 14:10-0400 BP Systolic 125 mm[Hg] [facility] 10-15-2017 14:02-0400 BMI (Body Mass Index) 31.6 kg/m2 [facility] 10-15-2017 14:02-0400 Body Temperature 97.2 [degF] [facility] 10-15-2017 14:02-0400 BP Diastolic 90 mm[Hg] [facility] 10-15-2017 14:02-0400 BP Systolic 140 mm[Hg] [facility] 10-15-2017 14:02-0400 BSA (Body Surface Area) 1.96 m2 [facility] 10-15-2017 14:02-0400 Height 163.83 cm [facility] 10-15-2017 14:02-0400 Pulse (Heart Rate) 77 /min [facility] 10-15-2017 14:02-0400 Pulse Oximetry 96 % [facility] 10-15-2017 14:02-0400 Respiratory Rate 20 /min [facility] 10-15-2017 14:02-0400 Weight 84.82 kg [facility] 10-15-2017 13:10-0400 BP Diastolic 80 mm[Hg] [facility] 10-15-2017 13:10-0400 BP Systolic 125 mm[Hg] [facility] 10-15-2017 13:02-0400 BMI (Body Mass Index) 31.6 kg/m2 [facility] 10-15-2017 13:02-0400 Body Temperature 97.2 [degF] [facility] 10-15-2017 13:02-0400 BP Diastolic 90 mm[Hg] [facility] 10-15-2017 13:02-0400 BP Systolic 140 mm[Hg] [facility] 10-15-2017 13:02-0400 BSA (Body Surface Area) 1.96 m2 [facility] 10-15-2017 13:02-0400 Height 163.83 cm [facility] 10-15-2017 13:02-0400 Pulse (Heart Rate) 77 /min [facility] 10-15-2017 13:02-0400 Pulse Oximetry 96 % [facility] 10-15-2017 13:02-0400 Respiratory Rate 20 /min [facility] 10-15-2017 13:02-0400 Weight 84.82 kg [facility] 10-05-2017 14:12-0400 BMI (Body Mass Index) 31.77 kg/m2 [facility] 10-05-2017 14:12-0400 Body Temperature 97.1 [degF] [facility] 10-05-2017 14:12-0400 BP Diastolic 75 mm[Hg] [facility] 10-05-2017 14:12-0400 BP Systolic 135 mm[Hg] [facility] 10-05-2017 14:12-0400 BSA (Body Surface Area) 1.97 m2 [facility] 10-05-2017 14:12-0400 Height 163.83 cm [facility] 10-05-2017 14:12-0400 Pulse (Heart Rate) 63 /min [facility] 10-05-2017 14:12-0400 Pulse Oximetry 99 % [facility] 10-05-2017 14:12-0400 Respiratory Rate 20 /min [facility] 10-05-2017 14:12-0400 Weight 85.28 kg [facility] 10-05-2017 13:12-0400 BMI (Body Mass Index) 31.77 kg/m2 [facility] 10-05-2017 13:12-0400 Body Temperature 97.1 [degF] [facility] 10-05-2017 13:12-0400 BP Diastolic 75 mm[Hg] [facility] 10-05-2017 13:12-0400 BP Systolic 135 mm[Hg] [facility] 10-05-2017 13:12-0400 BSA (Body Surface Area) 1.97 m2 [facility] 10-05-2017 13:12-0400 Height 163.83 cm [facility] 10-05-2017 13:12-0400 Pulse (Heart Rate) 63 /min [facility] 10-05-2017 13:12-0400 Pulse Oximetry 99 % [facility] 10-05-2017 13:12-0400 Respiratory Rate 20 /min [facility] 10-05-2017 13:12-0400 Weight 85.28 kg [facility] 03-23-2017 17:42-0400 BMI (Body Mass Index) 30.93 kg/m2 [facility] 03-23-2017 17:42-0400 Body Temperature 97.8 [degF] [facility] 03-23-2017 17:42-0400 BP Diastolic 86 mm[Hg] [facility] 03-23-2017 17:42-0400 BP Systolic 138 mm[Hg] [facility] 03-23-2017 17:42-0400 BSA (Body Surface Area) 1.94 m2 [facility] 03-23-2017 17:42-0400 Height 163.83 cm [facility] 03-23-2017 17:42-0400 [facility] 77 [facility] 03-23-2017 17:42-0400 Pulse Oximetry 97 % [facility] 03-23-2017 17:42-0400 Respiratory Rate 18 /min [facility] 03-23-2017 17:42-0400 Weight 83.01 kg [facility] 03-23-2017 16:42-0400 BMI (Body Mass Index) 30.93 kg/m2 [facility] 03-23-2017 16:42-0400 Body Temperature 97.8 [degF] [facility] 03-23-2017 16:42-0400 BP Diastolic 86 mm[Hg] [facility] 03-23-2017 16:42-0400 BP Systolic 138 mm[Hg] [facility] 03-23-2017 16:42-0400 BSA (Body Surface Area) 1.94 m2 [facility] 03-23-2017 16:42-0400 Height 163.83 cm [facility] 03-23-2017 16:42-0400 Pulse (Heart Rate) 77 /min [facility] 03-23-2017 16:42-0400 Pulse Oximetry 97 % [facility] 03-23-2017 16:42-0406 Respiratory Rate 18 /min Ena [facility] 03-23-2017 16:42-0400 Weight 83.01 kg Ena Fung [facility] Encounters Encounter Date Encounter Type Care Provider Facility Start: 08-20-2024 End: 08-21-2024 Clinisync Result Encounter Brock ARMIJO Work Phone: [facility] Unsolicited Start: 08-20-2024 End: 08-21-2024 Clinisync Result Encounter Brock ARMIJO Work Phone: [facility] Unsolicited Start: 06-06-2024 End: 06-10-2024 ambulatory [facility] Start: 06-05-2024 End: 06-05-2024 Emergency department patient visit ENA FUNG [facility] Start: 03-12-2024 End: 03-12-2024 Emergency department patient visit ENA FUNG [facility] ED Comment on above: Other chest pain (Pr imary Dx); Hypokalemia; Grief reaction Start: 02-08-2024 End: 02-08-2024 [facility] visit, estab pt Margarita Reza [employer] Work Phone: [facility] Work Phone: Start: 02-08-2024 End: 02-08-2024 ambulatory Ena Fung [employer] Work Phone: [facility] Work Phone: Start: 01-27-2024 End: 01-27-2024 Patient encounter procedure Ena Fung [employer] Work Phone: [facility] Work Phone: Start: 01-27-2024 End: 01-27-2024 [facility] visit, estab pt Oliva LANCASTER Work Phone: [facility] Work Phone: Start: 01-27-2024 End: 01-27-2024 ambulatory Ena Kenton [employer] Work Phone: [facility] Work Phone: Start: 01-25-2024 End: 01-25-2024 Emergency department patient visit JANAE Patel ESTELLE [facility] Start: 01-18-2024 End: 01-18-2024 Subsequent hospital visit by physician Nat Mora MD Work Phone: [facility] Cardiac Rehab Comment on above: Canceled (Michelle-No Show) Start: 12-23-2023 End: 12-23-2023 Emergency department patient visit Jaxson Ferrer MD Work Phone: [facility] ED Comment on above: Atypical chest pain (Primary Dx) Start: 12-07-2023 End: 12-07-2023 ambulatory [facility] Start: 09-13-2023 ambulatory Ena Thornton Lizbeth silva 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-[employer] Facility:Pulmonology & Critical Care Medicine [facility] Start: 09-07-2023 End: 09-07-2023 [facility] visit, estab pt Ena Fung [employer] Work Phone: [facility] Work Phone: Start: 09-07-2023 End: 09-07-2023 General Vicky Call [employer] Work Phone: [facility] Work Phone: Start: 08-20-2023 End: 08-20-2023 [facility] visit, estab pt Vicky Call [employer] Work Phone: [facility] Work Phone: Start: 08-16-2023 End: 08-18-2023 Evaluation and management of inpatient CAR Brown MATTHEWS [facility] Start: 08-12-2023 End: 08-12-2023 Emergency department patient visit [facility] ED Comment on above: Abdominal pain, epig astric (Primary Dx); Hypokalemia Start: 08-04-2023 End: 08-04-2023 [facility] visit, estab pt Ena Fung CNP Work Phone: [facility] Work Phone: Start: 07-20-2023 End: 07-20-2023 Emergency department patient visit Lisa Blackman Work Phone: [facility] ED Comment on above: Acute pharyngitis, u nspecified etiology (Primary Dx) Start: 05-06-2023 End: 05-06-2023 ambulatory RONAN RODRIGUEZ [facility] Start: 04-29-2023 End: 05-01-2023 ambulatory CAROLINE RODRIGUEZCODY [facility] Start: 04-23-2023 End: 04-24-2023 ambulatory ENA FUNG [facility] Start: 03-11-2023 End: 03-11-2023 Subsequent hospital visit by physician [facility] Op Treatment 03 [facility] Comment on above: Dog bite, initial en counter (Primary Dx) Start: 03-09-2023 End: 03-10-2023 ambulatory Asim Lucero MD Facility:[facility] Start: 03-05-2023 End: 03-05-2023 Emergency department patient visit Ena Praterbessy CHOU - [employer] Work Phone: [facility] ED Comment on above: Dog bite of left thi gh, initial encounter (Primary Dx); Dog bite of left wrist, initial encounter; Dog bite of left hand, initial encounter Start: 02-22-2023 End: 02-22-2023 Emergency department patient visit Ena Praterbessy CHOU - [employer] Work Phone: [facility] ED Comment on above: Abdominal pain, righ t lower quadrant (Primary Dx) Start: 02-01-2023 End: 02-01-2023 General Ena Fung CNP Work Phone: [facility] Work Phone: Start: 02-01-2023 End: 02-01-2023 [facility] visit, estab pt Ena Fung [employer] Work Phone: [facility] Work Phone: Start: 12-21-2022 End: 12-21-2022 Emergency department patient visit Ena Fung 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 - [employer] Work Phone: [facility] ED Comment on above: Injury of left shoul holden, initial encounter (Primary Dx); Sprain of right knee, unspecified ligament, initial encounter; Sprain of left wrist, initial encounter Start: 12-21-2022 End: 12-21-2022 [facility] visit, estab pt Ena Fung [employer] Work Phone: [facility] Work Phone: Start: 11-19-2022 End: 11-19-2022 FQ visit, estab pt Oliva LANCASTER Work Phone: [facility] Work Phone: Start: 11-19-2022 End: 11-19-2022 ambulatory Ena Fung CNP Work Phone: [facility] Work Phone: Start: 11-18-2022 End: 11-18-2022 Subsequent hospital visit by physician [facility] Echo Room [facility] Echocardiography Comment on above: Atypical chest pain Start: 08-20-2022 End: 08-20-2022 Subsequent hospital visit by physician Ronan Rodriguez MD Work Phone: [facility] CONTINUOUS CONVEYOR SCREEN DRIER Start: 08-20-2022 End: 08-20-2022 Emergency department patient visit Ena Fung APRN - [employer] Work Phone: [facility] Comment on above: Other chest pain (Pr imary Dx) Start: 07-28-2022 End: 07-28-2022 Emergency department patient visit Jaxson Ferrer MD Work Phone: [facility] ED Comment on above: Acute gastritis, pre sence of bleeding unspecified, unspecified gastritis type (Primary Dx); Nausea and vomiting, unspecified vomiting type; S/P PTCA (percutaneous transluminal coronary angioplasty) Start: 05-07-2022 End: 05-09-2022 Subsequent hospital visit by physician [facility] MRI Comment on above: Cervical radiculopat hy at C6; Cervical disc disorder at C5-C6 level with myelopathy Start: 05-01-2022 End: 05-01-2022 Emergency department patient visit Thad Berrios MD [facility] ED Comment on above: Right leg pain (Prim james Dx); Fall, initial encounter Start: 04-13-2022 End: 04-13-2022 [facility]QHC visit, estab pt Ronda Dorsey LPCC-S Work Phone: [facility] Work Phone: Start: 04-13-2022 End: 04-13-2022 [facility] visit, estab pt Ena Fung [employer] Work Phone: [facility] Work Phone: Start: 02-03-2022 End: 02-05-2022 Subsequent hospital visit by physician [facility] Ultrasound Room 2 At [facility] Ultrasound Comment on above: Abdominal pain, gene ralized Start: 01-30-2022 End: 01-30-2022 [facility]QHC visit, estab pt Ronda Dorsey LPCC-S Work Phone: [facility] Work Phone: Start: 12-19-2021 End: 12-19-2021 Emergency department patient visit Santhosh Schwab MD Work Phone: [facility] ED Comment on above: Acute pharyngitis, u nspecified etiology (Primary Dx) Start: 11-26-2021 End: 11-26-2021 FQHC visit, estab pt Ena Fung [employer] Work Phone: [facility] Work Phone: Start: 11-21-2021 End: 11-21-2021 Emergency department patient visit Ena Fung 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 - [employer] Work Phone: [facility] Comment on above: Left cervical radicu lopathy (Primary Dx) Start: 11-06-2021 End: 11-06-2021 Subsequent hospital visit by physician [facility] Start: 10-30-2021 End: 10-30-2021 Subsequent hospital visit by physician Ronan Rodriguez MD Work Phone: [facility] CONTINUOUS CONVEYOR SCREEN DRIER Start: 10-27-2021 End: 10-27-2021 General Ena Fung [employer] Work Phone: [facility] Work Phone: Start: 10-27-2021 End: 10-27-2021 FQHC visit, estab pt Ena Fung [employer] Work Phone: [facility] Work Phone: Start: 10-27-2021 End: 10-27-2021 General Ena Fung [employer] Work Phone: [facility] Work Phone: Start: 10-20-2021 End: 10-23-2021 Evaluation and management of inpatient ENA FUNG [facility] Start: 10-19-2021 End: 10-23-2021 Evaluation and management of inpatient Janae Oropeza MD Work Phone[facility] Comment on above: Cerebrovascular acci dent (CVA), unspecified mechanism (HCC) (Primary Dx) Start: 10-19-2021 End: 10-19-2021 Emergency department patient visit Olaf Pineda MD Work Phone: [facility] ED Comment on above: Cerebrovascular acci dent (CVA), unspecified mechanism (HCC) (Primary Dx); Acute left-sided weakness; Transient diplopia; Headache above the eye region Start: 10-13-2021 End: 10-13-2021 General Ronda Dorsey [facility] Work Phone: [facility] Work Phone: Start: 10-13-2021 End: 10-13-2021 [facility]QHC visit, estab pt Ena Kenton [place] Work Phone: [facility] Work Phone: Start: 10-06-2021 End: 10-07-2021 Emergency department patient visit Santhosh Schwab MD Work Phone: [facility] Comment on above: Other chest pain (Pr imary Dx) Start: 08-18-2021 End: 08-22-2021 Patient encounter status [facility] Schedule [facility] PRE ADMIT Start: 08-18-2021 End: 08-22-2021 Subsequent hospital visit by physician [facility] Covid19 Pat Screening Schedule [facility] PRE [...] Patient encounter procedure Ena Kenton CHOU - [employer] Work Phone: [facility] Start: 07-24-2021 End: 07-24-2021 Subsequent hospital visit by physician Ena Oviedo [employer] Work Phone: [facility] Comment on above: Vulval lesion; Women's annual routine gynecological examination Start: 07-08-2021 End: 07-08-2021 Emergency department patient visit Ena Kenton CHOU - [employer] Work Phone: [facility] Comment on above: Right arm pain (Prim james Dx) Start: 06-19-2021 End: 06-19-2021 Subsequent hospital visit by physician Nat Mora MD Work Phone: [email or web address] CONTINUOUS CONVEYOR SCREEN [employer]RIER Comment on above: Arrived Start: 06-06-2021 End: 06-06-2021 Emergency department patient visit Mariana Adames DO Work Phone: [facility] Comment on above: Stable angina (HCC) (Primary Dx); Dizziness Start: 05-22-2021 End: 05-22-2021 Emergency department patient visit Ruiz Romero MD Work Phone: [facility] Comment on above: Acute left-sided low back pain, unspecified whether sciatica present (Primary Dx) Start: 05-08-2021 End: 05-08-2021 General Ena Fung [employer] Work Phone: [facility] Work Phone: Start: 05-08-2021 End: 05-08-2021 General Ena Fung [employer] Work Phone: [facility] Work Phone: Start: 05-08-2021 End: 05-08-2021 General Ena Fung [employer] Work Phone: [facility] Work Phone: Start: 03-20-2021 End: 03-20-2021 Telemedicine consultation with patient Veronica Renteria [employer] Work Phone: [facility] Work Phone: Start: 03-20-2021 End: 05-08-2021 Telemedicine consultation with patient Ena Fung CNP Work Phone: [facility] Work Phone: Start: 03-20-2021 End: 03-20-2021 General Ena Fung [employer] Work Phone: [facility] Work Phone: Start: 02-05-2021 End: 02-05-2021 FQHC visit, estab pt Ena Fung [employer] Work Phone: [facility] Work Phone: Start: 01-29-2021 End: 01-29-2021 Emergency department patient visit Antony Borges MD Work Phone: [facility] ED Comment on above: Contusion of foot, u nspecified laterality, initial encounter (Primary Dx); Sprain of right ankle, unspecified ligament, initial encounter Start: 01-09-2021 End: 01-09-2021 Subsequent hospital visit by physician Ena Fung APRN - [employer] Work Phone: [facility] Laboratory Comment on above: Hypokalemia; Rectal bleeding Start: 01-08-2021 End: 01-08-2021 FQHC visit, estab pt Ena Fung CNP Work Phone: [facility] Work Phone: Start: 01-01-2021 End: 01-03-2021 Evaluation and management of inpatient Olaf Pineda MD Work Phone: [facility] Comment on above: Rectal bleeding (Rowena aman Dx); Hypokalemia; Dehydration Start: 11-22-2020 End: 11-22-2020 Emergency department patient visit Santhosh Schwab MD Work Phone: [facility] ED Comment on above: Streptococcal sore t hroat (Primary Dx); Other elevated white blood cell count; Acute streptococcal pharyngitis Start: 09-19-2020 End: 09-23-2020 Subsequent hospital visit by physician Massiel Dailey Pat Screening Schedule [facility] PRE ADMIT Comment on above: Preoperative testing Start: 09-19-2020 End: 09-19-2020 Subsequent hospital visit by physician Ena Fung [facility] Laboratory Comment on above: Right sided abdomina l pain Start: 09-04-2020 End: 09-04-2020 Established patient Oliva Dia Work Phone: [facility] Work Phone: Start: 09-04-2020 End: 09-04-2020 Established patient Ena Fung Work Phone: [facility] Work Phone: Start: 08-27-2020 End: 08-29-2020 Evaluation and management of inpatient Mariana Adames Work Phone: [facility] MED SURG Comment on above: Abdominal pain, righ t lower quadrant (Primary Dx); Non-intractable vomiting with nausea, unspecified vomiting type Start: 07-05-2020 End: 07-05-2020 Subsequent hospital visit by physician [facility] Cardiology Stress Room [facility] Stress Lab Comment on above: Arrived Start: 07-04-2020 End: 07-04-2020 Subsequent hospital visit by physician [facility] Cardiology Stress Room [facility] Stress Lab Comment on above: Canceled (Provider) Atypical chest pain; Palpitations; ASHD (arteriosclerotic heart disease); S/P PTCA (percutaneous transluminal coronary angioplasty); Essential hypertension; Family history of premature CAD; Tobacco abuse counseling; Mixed hyperlipidemia; MATT (obstructive sleep apnea); Obesity (BMI 30.0-34.9) Start: 06-17-2020 End: 06-17-2020 Emergency department patient visit [facility] ED Comment on above: Chest pain, unspecif ied type (Primary Dx) Start: 06-04-2020 End: 06-04-2020 Telemedicine consultation with patient Tao Reece Work Phone: [facility] Work Phone: Start: 05-02-2020 End: 05-02-2020 Patient encounter procedure Oliva Dia Work Phone: [facility] Work Phone: Start: 05-02-2020 End: 05-02-2020 Telemedicine consultation with patient Ena Fung Work Phone: [facility] Work Phone: Start: 04-28-2020 End: 04-28-2020 Emergency department patient visit [facility] ED Comment on above: Laceration of right little finger without foreign body without damage to nail, initial encounter (Primary Dx) Start: 02-22-2020 End: 02-22-2020 Subsequent hospital visit by physician Ena Fung [facility] Laboratory Comment on above: Vulvar cyst Start: 02-19-2020 End: 02-19-2020 [facility] Comment on above: Arrived Start: 02-14-2020 End: 02-14-2020 Subsequent hospital visit by physician [facility] Lab Drawing Room [facility] Laboratory Comment on above: Hot flashes Pre-op testing Start: 01-24-2020 End: 01-24-2020 Subsequent hospital visit by physician Ena Fung [facility] Laboratory Comment on above: Women's annual routi ne gynecological examination Start: 01-15-2020 End: 01-15-2020 Telemedicine consultation with patient Ena Fung Work Phone: [facility] Work Phone: Start: 01-11-2020 End: 01-11-2020 Subsequent hospital visit by physician [facility] Sleep Rm 1 [facility] Sleep Center Start: 12-29-2019 End: 12-30-2019 Subsequent hospital visit by physician Michael Arroyo Work Phone: [facility] CAR 2 Comment on above: S/P PTCA (percutaneo us transluminal coronary angioplasty) Start: 12-29-2019 End: 12-29-2019 Subsequent hospital visit by physician Rl Blanc Work Phone: [facility] CONTINUOUS CONVEYOR SCREEN DRIER Start: 12-28-2019 End: 12-29-2019 Evaluation and management of inpatient Rl Tirso Blanc Work Phone: [facility] CONTINUOUS CONVEYOR SCREEN DRIER Start: 11-23-2019 End: 11-23-2019 Telemedicine consultation with patient Ena Fung Work Phone: [facility] Work Phone: Start: 10-20-2019 End: 10-20-2019 General Oliva Dia Work Phone: [facility] Work Phone: Start: 10-20-2019 End: 10-20-2019 Telemedicine consultation with patient Ena Fung Work Phone: [facility] Work Phone: Start: 10-09-2019 End: 10-10-2019 Evaluation and management of inpatient Terrence Lyle Work Phone: [facility] Comment on above: Stroke-like symptoms (Primary Dx) Start: 08-29-2019 End: 08-29-2019 Emergency department [facility] Comment on above: Benign paroxysmal po sitional vertigo of left ear (Primary Dx) Start: 08-21-2019 End: 08-21-2019 Emergency department patient visit Janae Landon MD Work Phone: [facility] ED Comment on above: Chest pain, unspecif ied type (Primary Dx); Dizziness Start: 06-08-2019 End: 06-08-2019 Emergency department patient visit Mariana Adames Work Phone: [facility] ED Comment on above: Nausea vomiting and diarrhea (Primary Dx) Start: 04-19-2019 End: 04-21-2019 Evaluation and management of inpatient Janae Austinrea Work Phone: [facility] CAR 2 Comment on above: Stroke-like symptoms (Primary Dx) Start: 04-19-2019 End: 04-19-2019 Emergency department patient visit [facility] ED Comment on above: Acute nonintractable headache, unspecified headache type (Primary Dx); Perioral numbness Start: 06-23-2018 Office outpatient vi sit 15 minutes Ena Fung Other [facility] Start: 04-26-2018 Office outpatient vi sit 15 minutes Ena Fung Other [facility] Start: 04-26-2018 Medical Ena Fung Other [facility] Start: 01-20-2018 End: 01-20-2018 Office outpatient visit 15 minutes Ena Fung Other [facility] Start: 10-15-2017 End: 10-15-2017 Medical Louis Bustos Other [facility] Start: 10-05-2017 Mammogram, both breasts [facility] Start: 10-05-2017 End: 10-05-2017 Office outpatient visit 15 minutes Ena Fung Other [facility] Start: 10-05-2017 Polysom 6/>yrs sleep 4/> addl binh attnd [facility] Start: 10-05-2017 Polysom 6/>yrs sleep w/cpap 4/> [facility] Start: 03-23-2017 Laboratory examinati on, unspecified Ena Fung [facility] Start: 03-23-2017 Routine general medi gabriella examination at a health care facility Ena Fung [facility] Start: 03-23-2017 End: 03-23-2017 Initial preventive medicine new patient 40-64yrs Ena Fung Other [facility] Procedures Date Procedure Procedure Detail Performing Clinician Start: 08-20-2024 ECG 12-LEAD Brock ARMIJO Work Phone: Start: 03-12-2024 Assay of troponin quantitative Elizabeth Stoddard 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 - [facility] Work Phone: Start: 03-12-2024 Radiologic exam chest single view Otto Ferrer MD Work Phone: Start: 03-12-2024 Basic metabolic panel calcium total Jaxson Ferrer MD Work Phone: Start: 03-12-2024 Ecg routine ecg w/least 12 lds w/i&r Jaxson Ferrer MD Work Phone: Start: 02-08-2024 Asthma Control Test/Baseline Evaluation Ena Fung [employer] Work Phone: Start: 02-08-2024 Current tobacco non-user cad cap copd pv dm Ena Fung [employer] Work Phone: Start: 02-08-2024 Drug test prsmv read direct optical obs pr date Ena Fung [employer] Work Phone: Start: 01-27-2024 Most recent diastol blood pres >/equal 90 mm hg Ena Fung [employer] Work Phone: Start: 01-27-2024 Most recent systolic blood pres>/equal 140 mm hg Ena Fung [employer] Work Phone: Start: 01-27-2024 Pt-focused hlth risk assmt score doc stnd instrm Ena Fung [employer] Work Phone: Start: 01-11-2024 Hysterectomy Ena Fung [employer] Work Phone: Start: 12-23-2023 Assay of troponin quantitative Jaxson dias MD Work Phone: Start: 12-23-2023 Radiologic exam chest 2 views Jaxson Schaeffer dd, MD Work Phone: Start: 12-23-2023 Assay of magnesium Jaxson Ferrer MD Work Phone: Start: 12-23-2023 Ecg routine ecg w/least 12 lds w/i&r Jaxson Ferrer MD Work Phone: Start: 09-07-2023 Asthma discharge plan present Ena doherty [employer] Work Phone: Start: 09-07-2023 Current tobacco non-user cad cap copd pv dm Ena Fung [employer] Work Phone: Start: 09-07-2023 Iaadiadoo influenza Ena Fung [employer] Work Phone: Start: 09-07-2023 Most recent diastolic blood pressure 80-89 mm hg Ena Fung [employer] Work Phone: Start: 09-07-2023 Most recent systolic blood pressure <130 mm hg Ena Fung [employer] Work Phone: Start: 08-20-2023 Current tobacco non-user cad cap copd pv dm Vicky Jakub [employer] Work Phone: Start: 08-20-2023 Most recent diastolic blood pressure < 80 mm hg Vicky Call [employer] Work Phone: Start: 08-20-2023 Most recent systolic blood press 130-139mm hg Vicky Call [employer] Work Phone: Start: 08-12-2023 Ct abdomen & pelvis w/contrast material Crystal Hitchcock PA-C Work Phone: Start: 08-12-2023 Radiologic exam chest single view Otto Ferrer MD Work Phone: Start: 08-12-2023 Ecg routine ecg w/least 12 lds w/i&r Jaxson Ferrer MD Work Phone: Start: 08-12-2023 Comprehensive metabolic panel Crystal avila PA-C Work Phone: Start: 08-04-2023 Current tobacco non-user cad cap copd pv dm Ena Fung [employer] Work Phone: Start: 08-04-2023 Most recent diastolic blood pressure 80-89 mm hg Ena Fung [employer] Work Phone: Start: 08-04-2023 Most recent systolic blood press 130-139mm hg Ena Fung [employer] Work Phone: Start: 08-04-2023 Psychotherapy w/patient 30 [...] blood pressure 80-89 mm hg Ena Fung [employer] Work Phone: Start: 02-01-2023 Most recent systolic blood pressure <130 mm hg Ena Fung [employer] Work Phone: Start: 12-21-2022 Most recent diastolic blood pressure < 80 mm hg Ena Fung [employer] Work Phone: Start: 12-21-2022 Most recent systolic blood pressure <130 mm hg Ena Fung [employer] Work Phone: Start: 12-21-2022 End: 12-21-2022 Radex [...] blood pressure 80-89 mm hg Ena Prateren [employer] Work Phone: Start: 04-13-2022 Most recent systolic blood pressure <130 mm hg Ena Fung [employer] Work Phone: Start: 04-13-2022 Psychotherapy w/patient 30 minutes [facility] Work Phone: Start: 02-03-2022 Us abdominal real time w/image limited Ena 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 - [employer] Work Phone: Start: 01-30-2022 Blood occult fecal hgb deter ia qual feces 1-3 Ena Fung [employer] Work Phone: Start: 01-30-2022 Hernia repair Ena [place] [employer] Work Phone: Start: 01-30-2022 Hysterectomy Ena [place] [employer] Work Phone: Start: 01-30-2022 Most recent diastolic blood pressure < 80 mm hg Ena [place] [employer] Work Phone: Start: 01-30-2022 Most recent systolic blood pressure <130 mm hg Ena [place] [employer] Work Phone: Start: 01-30-2022 Psychotherapy w/patient 30 minutes Jyotsna rine Dorsey [facility] Work Phone: Start: 12-19-2021 COVID-19, RAPID Santhosh Schwab MD Work Phone: Start: 12-19-2021 Iaadiadoo streptococcus group a Santhosh Schwab MD Work Phone: Start: 11-26-2021 Most recent diastolic blood pressure < 80 mm hg Enajosefa Fung [employer] Work Phone: Start: 11-26-2021 Most recent systolic blood pressure <130 mm hg Enajosefa Prateren [employer] Work Phone: Start: 11-21-2021 End: 11-21-2021 Radex spine [facility] Work Phone: Start: 11-06-2021 Cardiac catheterization Ronan Rodriguez MD Work Phone: Start: 10-30-2021 Cardiac catheterization Ronan Rodriguez MD Work Phone: Start: 10-27-2021 Most recent diastolic blood pressure < 80 mm hg Enajosefa Fung [employer] Work Phone: Start: 10-27-2021 Most recent systolic blood pressure <130 mm hg Ena Fung [employer] Work Phone: Start: 10-23-2021 BASIC METABOLIC PANEL [...] cleared fda spec home use Ena Fung [employer] Work Phone: Start: 10-13-2021 Hysterectomy Ena [place] [employer] Work Phone: Start: 10-13-2021 Most recent diastolic blood pressure < 80 mm hg Ena Fung [employer] Work Phone: Start: 10-13-2021 Most recent systolic blood pressure <130 mm hg Ena Fung [employer] Work Phone: Start: 10-13-2021 Psychotherapy w/patient 30 minutes Jyotsna Dorsey [facility] Work Phone: Start: 10-07-2021 STRESS [...] Work Phone: Start: 08-29-2021 Hysterectomy Ena Fung [employer] Work Phone: Start: 08-20-2021 H/O: surgery S/P [...] blood pressure 80-89 mm hg Ena Fung [facility] Work Phone: Start: 02-05-2021 Most recent systolic blood pressure <130 mm [facility] Work Phone: Start: 01-29-2021 End: 01-29-2021 Radex ankle complete minimum 3 views Antony Borges MD Work Phone: Start: 01-09-2021 Basic metabolic panel calcium total Erna Osman [facility] Work Phone: Start: 01-08-2021 Most recent diastol blood pres >/equal 90 mm hg Enajosefa Fung [facility] Work Phone: Start: 01-08-2021 Most recent systolic blood press 130-139mm hg Enajosefa Fung [facility] Work Phone: Start: 01-03-2021 Blood occult peroxidase actv qual other sources Alvino Zavala MD Work Phone: Start: 01-03-2021 Esophagogastroduodenoscopy Alvino doherty MD Work Phone: Start: 01-03-2021 Assay of magnesium Erna Osman [facility] Work Phone: Start: 01-03-2021 BASIC METABOLIC PANEL [...] dev cleared fda spec home use Santhosh Shcwab MD Work Phone: Start: 01-01-2021 GLUCOSE, WHOLE [...] Ena Fung Start: 09-04-2020 Cholecystectomy Ena Fung [employer] Work Phone: Start: 09-04-2020 Diast bp >/= 90 mm hg Ena Fung Work Phone: Start: 09-04-2020 Hemoglobin glycosylated a1c Ena Fung Work Phone: Start: 09-04-2020 Hepatitis c antibody Ena Fung Work Phone: Start: 09-04-2020 Hysterectomy Ena Fung [employer] Work Phone: Start: 09-04-2020 Iaad ia hiv-1 [...] Start: 08-28-2020 Assay of magnesium Erna A [employer] Work Phone: Start: 08-28-2020 BASIC METABOLIC PANEL W/ REFLEX TO MG FOR LOW K Erna A Jacqui Work Phone: Start: 08-28-2020 Blood count complete auto&auto difrntl wbc Erna A [employer] Work Phone: Start: 08-27-2020 Blood count complete [...] routine ecg w/least 12 lds w/i&r Olaf iPneda Work Phone: Start: 06-17-2020 End: 06-17-2020 Blood [...] Assay of thyroid stimulating hormone tsh Geoff Kailash Chu Work Phone: Start: 02-14-2020 Gonadotropin follicle stimulating hormone Geoff Kailash Chu Work Phone: Start: 01-15-2020 no recent change in medical history Ena Fung CNP Work Phone: Start: 12-29-2019 Coagulation time activated Ali F O Ahmad Work Phone: Start: 12-29-2019 DIAGNOSTIC CARDIAC CONTINUOUS CONVEYOR SCREEN DRIER PROCEDURE Ameer Promiserahul Work Phone: Start: 12-29-2019 COVID-19 Amjosefasamir [employer] Work Phone: Start: 12-29-2019 DIAGNOSTIC CARDIAC CONTINUOUS CONVEYOR SCREEN DRIER PROCEDURE Ronna Rodriguez Work Phone: Start: 12-29-2019 BASIC METABOLIC PANEL W/ REFLEX TO MG FOR LOW K Erna Osman Work Phone: Start: 12-29-2019 Lipid panel Erna sOman Work Phone: Start: 12-29-2019 Ecg routine ecg [...] 09-26-2030 Screening for malignant neoplasm of colon [facility] Start: 04-28-2030 DTaP/Tdap/Td vaccine (3 - Td or Tdap) DTaP/Tdap/Td vaccine (3 - Td or Tdap) [facility] Start: 04-28-2030 DTaP/Tdap/Td vaccine (3 - Td) DTaP/Tdap/Td vaccine (3 - Td) [place] Start: 04-29-2028 Lipid panel Lipids [facility] Start: 01-17-2026 Diabetes screen Diabetes screen [facility] Start: 11-29-2025 Shingles Vaccine (1 of 2) Shingles Vaccine (1 of 2) [facility] laura Work Phone: Start: 01-09-2025 Depression Monitoring Depression Monitoring [facility] Start: 06-09-2024 Diabetes screen Diabetes screen [facility] Start: 05-10-2024 DTaP/Tdap/Td vaccine (2 - Td) DTaP/Tdap/Td vaccine (2 - Td) [place] Start: 04-29-2024 Lipid panel Lipids [facility] Start: 04-25-2024 End: 04-25-2024 Nursing evaluation of patient and report 04/25/2024 8:30 AM EDT Nurse Only [facility] [address] [place] [address] 3 month home check [facility] Comment on above: 3 month home check Start: 04-18-2024 End: 04-18-2024 Patient encounter procedure 04/18/2024 9:20 AM EDT Office Visit [facility] [address] [place] [address] Nat Mora MD [address] [facility] [place] [address] 3 month [facility] Comment on above: 3 month Start: 03-16-2024 End: 03-16-2024 Patient encounter procedure 03/16/2024 9:00 AM EDT Office Visit [facility] [address] [facility] [address] [place] [address] Geoff Chu MD [address] [place] [address] [address] [place] [address] med check [facility] Comment on above: med check Start: 03-07-2024 FQHC visit, estab pt [facility] Work Phone: Start: 02-22-2024 FQHC visit, estab pt Medical [facility] Work Phone: Start: 02-17-[address] [facility] Start: 02-08-2024 End: 02-08-2024 Patient education based on identified need [facility] Start: 02-03-2024 FQHC visit, estab pt Medical Establ[facility] Work Phone: Start: 01-27-2024 End: 01-27-2024 Patient education based on identified need [facility] Start: 01-25-2024 End: 01-25-2024 Nursing evaluation of patient and report 01/25/2024 8:30 AM EDT Nurse Only [facility] [address] [address] 3 month home check [facility] Comment on above: 3 month home check Start: 01-21-2024 End: 01-21-2024 Patient encounter procedure 01/21/2024 9:00 AM EDT Office Visit [facility] [address] [place] [address] Nat Mora MD [address] [place] [address] [place] [address] 6 week [facility] Comment on above: 6 week Start: 01-19-2024 Lipid panel Lipids [facility] Start: 01-13-2024 End: 01-13-2024 Patient encounter procedure 01/13/2024 9:15 AM EDT Office Visit [facility] [address] [place] [id number] Luis Arredondo APRN - RIYA [address] [facility] [address] [place] [id number] med check / WH pt [facility] Comment on above: med check / WH pt Start: 10-26-2023 End: 10-26-2023 Nursing evaluation of patient and report 10/26/2023 8:30 AM EDT Nurse Only [facility] [address] [address] 3 month home check [facility] Comment on above: 3 month home check Start: 09-07-2023 FQHC visit, estab pt Medical Established Patient Health [facility] Work Phone: Start: 09-07-2023 End: 09-07-2023 Patient education based on identified need [facility] Start: 08-20-2023 [facility] Work Phone: Comment on above: Note: Please make a referral to: Start: 08-20-2023 End: 08-20-2023 Patient education based on identified need [facility] Start: 08-04-2023 Admission to same day surgery center General Surgery [facility] Work Phone: Comment on above: Note: Please make a referral to: Start: 08-04-2023 End: 08-04-2023 Patient education based on identified need [facility] Start: 08-02-2023 End: 08-02-2023 Patient encounter procedure [facility] Comment on above: 6 month/lvm mm Start: 04-27-2023 End: 04-27-2023 Nursing evaluation of patient and report 04/27/2023 Nurse Only Cardiology [facility] Start: 03-23-2023 End: 03-23-2023 Patient encounter procedure 03/23/2023 Office Visit Cardiology Nat Mora MD [address] [place] [id number] [facility] Start: 03-19-2023 COVID-19 Vaccine ( season) COVID-19 Vaccine ( season) [facility] Start: 03-09-2023 End: 03-09-2023 Patient encounter procedure 03/09/2023 Office Visit Gastroenterology Sirena Mehta, 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 - [employer] [address] [facility] [address] [place] [address] [facility] Start: 02-16-2023 Influenza vaccination [facility] Start: 02-09-2023 Dermatology [facility] Work Phone: Comment on above: Note: Please make a referral to: Start: 02-01-2023 End: 02-01-2023 Patient education based on identified need [facility] Start: 01-30-2023 Screening for malignant neoplasm of colon FIT/FOBT: Average risk [facility] Start: 01-28-2023 End: 01-28-2023 Patient encounter procedure 01/28/2023 Office Visit Gastroenterology Sirena Mehta, 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 - [employer] [address] [place] [address] [facility] Start: 01-26-2023 End: 01-26-2023 Nursing evaluation of patient and report 01/26/2023 Nurse Only Cardiology [facility] Start: 01-25-2023 End: 01-25-2023 Patient encounter procedure 01/25/2023 Office Visit Cardiology Nat Mora MD [address] [place] [address] [facility] Start: 01-23-2023 Screening for malignant neoplasm of cervix Cervical cancer screen [facility] [place] [place] Start: 12-21-2022 FQHC visit, estab pt Medical Established Patient Health [facility] Work Phone: Start: 12-21-2022 End: 12-21-2022 Patient education based on identified need [facility] Start: 12-07-2022 End: 12-07-2022 Patient encounter procedure [facility] Start: 11-19-2022 End: 11-19-2022 Patient education based on identified need [facility] Start: 10-27-2022 End: 10-27-2022 Nursing evaluation of patient and report 10/27/2022 Nurse Only Cardiology [facility] CARDIOLOG[facility] Start: 10-23-2022 Creatinine measurement [facility] Start: 10-23-2022 Potassium [Moles/volume] in Serum or Plasma Potassium [facility] Start: 10-23-2022 [facility] Start: 10-20-2022 Hemoglobin A1c measurement A1C test (Diabetic or Prediabetic) [facility] Start: 10-20-2022 [facility] Start: 10-19-2022 Creatinine measurement [facility] Start: 10-19-2022 Potassium monitoring [facility] Start: 10-08-2022 Diabetes screen Diabetes screen [facility] [place] Start: 10-07-2022 Lipid panel Lipid screen [facility] Start: 10-06-2022 Creatinine measurement Creatinine monitoring [facility] Start: 10-06-2022 Potassium monitoring Potassium monitoring [facility] Start: 08-21-2022 Creatinine measurement Creatinine monitoring [facility] Start: 08-21-2022 Potassium monitoring Potassium monitoring [facility] Start: 08-05-2022 Creatinine measurement Creatinine monitoring [facility] Start: 08-05-2022 Potassium monitoring Potassium monitoring [facility] Start: 07-28-2022 End: 07-28-2022 Nursing evaluation of patient and report 07/28/2022 Nurse Only Cardiology [facility] Start: 07-16-2022 FQHC visit, estab pt Medical Established Patient [facility] Work Phone: Start: 06-09-2022 Lipid panel Lipid screen [facility] Start: 06-06-2022 Creatinine measurement Creatinine monitoring [facility] Start: 06-06-2022 Potassium monitoring Potassium monitoring [facility] Start: 05-28-2022 End: 05-28-2022 Patient encounter procedure 05/28/2022 Office Visit Cardiology Nat Mora MD [address] [place] [id number] [facility] Start: 05-13-2022 EKG 12 lead ([id number]) [facility] Start: 05-11-2022 End: 05-11-2022 Patient encounter procedure 05/11/2022 Office Visit Neurology Gabo Cohen MD [address] [place] [id number] [facility] NEUR[facility] Start: 05-07-2022 End: 05-07-2022 Patient encounter procedure 05/07/2022 Appointment Radiology [facility] Start: 04-28-2022 End: 04-28-2022 Nursing evaluation of patient and report 04/28/2022 Nurse Only Cardiology [facility] Start: 04-27-2022 FQHC visit, estab pt Medical Established Patient [facility] Work Phone: Start: 04-20-2022 Diabetes screen Diabetes screen [facility] [place], [place] Start: 04-13-2022 End: 04-13-2022 Patient education based on identified need [facility] Start: 03-19-2022 Influenza vaccination [facility] Start: 03-16-2022 End: 03-16-2022 Patient encounter procedure 03/16/2022 Office Visit Neurology Gabo Cohen MD [address] [place] [address] [facility] NEUR[facility] Start: 03-01-2022 Health [facility] Start: 02-16-2022 Influenza vaccination Flu vaccine (#1) [facility] Start: 01-30-2022 End: 01-30-2022 Patient education based on identified need [facility] Start: 01-27-2022 FQHC visit, estab pt Medical Established Patient [facility] Work Phone: Start: 01-27-2022 End: 01-27-2022 Nursing evaluation of patient and report 01/27/2022 Nurse Only Cardiology [facility] Start: 01-12-2022 End: 01-12-2022 Patient encounter procedure 01/12/2022 Office Visit Neurology Gabo Cohen MD [address] [place] [address] [facility] Start: 01-09-2022 Creatinine measurement Creatinine monitoring [facility] Work Phone: Start: 01-09-2022 Potassium monitoring Potassium monitoring [facility] Work Phone: Start: 01-03-2022 Creatinine measurement Creatinine monitoring [facility] Work Phone: Start: 01-03-2022 Potassium monitoring Potassium monitoring [facility] Work Phone: Start: 01-03-2022 Screening for malignant neoplasm of colon FIT/FOBT: Average risk [facility] Start: 12-23-2021 End: 12-23-2021 Patient encounter procedure 12/23/2021 Office Visit Cardiology Nat Mora MD [address] [place] [address] [facility] Start: 12-09-2021 End: 12-09-2021 Nursing evaluation of patient and report 12/09/2021 Nurse Only Cardiology [facility] Start: 11-26-2021 End: 11-26-2021 Patient education based on identified need [facility] Start: 11-25-2021 End: 11-25-2021 Patient encounter procedure 11/25/2021 Office Visit Cardiology Nat Mora MD [address] [place] [address] [facility] Start: 11-22-2021 Creatinine measurement Creatinine monitoring [facility] Work Phone: Start: 11-22-2021 Potassium monitoring Potassium monitoring [facility] Work Phone: Start: 11-14-2021 End: 11-14-2021 Patient encounter procedure 11/14/2021 Office Visit Neurology Rashid Almeida MD [address] [place] [address] [facility] Start: 10-27-2021 FQHC visit, estab pt [facility] Work Phone: Comment on above: Note: Please make a referral to: OSWALD [email or web address] [facility] Start: 10-27-2021 End: 10-27-2021 Patient education based on identified need [facility] Start: 10-23-2021 End: 10-23-2021 Patient encounter procedure 10/23/2021 Office Visit Cardiology Nat Mora MD [address] [place] [address] [place] [address] [facility] Start: 10-13-2021 End: 10-13-2021 Patient education based on identified need [facility] Start: 09-19-2021 Creatinine measurement Creatinine monitoring [facility] [employer] Phone: Start: 09-19-2021 Potassium monitoring Potassium monitoring [facility] [employer] Phone: Start: 09-16-2021 End: 09-16-2021 Admission to same day surgery center 09/16/2021 Surgery IP Unit Alvino Zavala MD [address] [place] [address] [address] [place] [address] EGD ESOPHAGOGASTRODUODENOSCOPY [facility] OR Comment on above: EGD ESOPHAGOGASTRODUODENOSCOPY Start: 09-16-2021 End: 09-16-2021 Esophagogastroduodenoscopy transoral diagnostic EGD ESOPHAGOGASTRODUODENOSCOPY ABD PAIN HX OF GASTRITIS 09/16/2021 9:30 AM EST [facility] Start: 09-16-2021 Subsequent hospital visit by physician 09/16/2021 Hospital Encounter IP Unit Alvino Zavala MD [address] [place] [address] [address] [place] [address] [facility] Start: 08-29-2021 Creatinine measurement Creatinine monitoring [facility] [employer] Phone: Start: 08-29-2021 Potassium monitoring Potassium monitoring [facility] [employer] Phone: Start: 08-27-2021 End: 08-27-2021 Patient encounter procedure 08/27/2021 Office Visit Obstetrics and Gynecology Geoff Chu MD [address] [place] [address] [facility]ST[facility]RICS & [facility]YNECOLOGY [facility] Start: 08-20-2021 End: 08-20-2021 Admission to same day surgery center 08/20/2021 Surgery IP Unit Geoff Chu MD [address] [place] [address] OOPHORECTOMY LAPAROSCOPIC-POSSIBLE LAPAROTOMY [facility] Comment on above: OOPHORECTOMY LAPAROSCOPIC-POSSIBLE LAPAR OTOMY Start: 08-20-2021 End: 08-20-2021 Oophorectomy partial/total uni/bi OOPHORECTOMY LAPAROSCOPIC RLQ PAIN 08/20/2021 9:50 AM EST [facility] Start: 08-20-2021 Subsequent hospital visit by physician 08/20/2021 Hospital Encounter IP Unit Geoff Chu MD [address] [place] [address] [facility] Start: 08-11-2021 COVID-19 Vaccine (2 - Booster for Moderna series) COVID-19 Vaccine (2 - Booster for Moderna series) [facility] Start: 07-14-2021 COVID-19 Vaccine (2 - Moderna 3-dose series) COVID-19 Vaccine (2 - Moderna 3-dose series) [facility] Start: 07-14-2021 COVID-19 Vaccine (2 - Moderna series) COVID-19 Vaccine (2 - Moderna series) [facility] Start: 07-04-2021 Creatinine measurement Creatinine monitoring [facility] [place] Start: 07-04-2021 Lipid panel Lipid screen [facility] Start: 07-04-2021 Potassium monitoring Potassium monitoring [facility] [place], [place] Start: 06-25-2021 FQHC visit, estab pt Medical Established Patient [facility] Work Phone: Start: 06-09-2021 End: 06-09-2021 Patient encounter procedure 06/09/2021 Office Visit Cardiology Nat Mora MD [address] [place] [address] [facility] Start: 06-07-2021 Diabetes screen Diabetes screen [facility], [place] Start: 05-15-2021 SARS-CoV-2, [facility] Start: 05-08-[address] up Testing [facility] Work Phone: Start: 04-15-2021 End: 04-15-2021 Patient encounter procedure 04/15/2021 Office Visit Cardiology Nat Mora MD [address] [place] [address] [facility] Start: 03-27-2021 SARS-CoV-2, [facility] Start: 03-20-2021 End: 03-20-2021 Patient education based on identified need [facility] Start: 03-19-2021 Influenza vaccination [facility] Start: 03-07-2021 [facility] Start: 02-05-2021 End: 02-05-2021 Patient education based on identified need [facility] Start: 01-10-2021 End: 01-03-2022 Basic metabolic 2000 panel - Serum or Plasma Basic Metabolic Panel Lab Routine Hypokalemia Expected: 01/10/2021, Expires: 01/03/2022 [employer] Phone: Comment on above: Expected: 01/10/2021, Expires: 2 Start: 01-10-2021 End: 01-03-2022 CBC W Auto Differential panel - Blood CBC With Auto Differential Lab Routine Rectal bleeding Expected: 01/10/2021, Expires: 01/03/2022 [employer] Phone: Comment on above: Expected: 01/10/2021, Expires: 2 Start: 01-10-2021 Subsequent hospital visit by physician 01/10/2021 Hospital Encounter Echocardiography [facility] Start: 01-10-2021 End: 01-10-2021 Patient encounter procedure 01/10/2021 Appointment Stress Lab [facility] Stress Lab Start: 01-09-2021 End: 01-09-2021 Office Visit 01/09/2021 Office Visit Cardiology Nat Mora MD [address] [place] [address] [place] [address] [facility] Start: 01-08-2021 End: 01-08-2021 Patient education based on identified need [facility] Start: 12-28-2020 Creatinine measurement Creatinine monitoring [facility] Start: 12-28-2020 Lipid [facility] [place] [place] Start: 12-28-2020 Potassium monitoring Potassium monitoring [employer] [place], [place] Start: 12-27-2020 Creatinine measurement Creatinine monitoring [facility] [place] Start: 12-27-2020 Potassium monitoring Potassium monitoring [facility] [place] Start: 11-29-2020 Screening for malignant neoplasm of colon [facility] Start: 10-08-2020 Lipid panel Lipid [place] [facility] Start: 10-08-2020 Lipid screen Lipid screen [employer] [place] Start: 09-26-2020 End: 09-26-2020 Hospital Encounter [facility] OR Comment on above: COLONOSCOPY DIAGNOSTIC Start: 09-05-2020 [facility] Work Phone: Start: 09-04-2020 End: 09-04-2020 Patient education based on identified need [facility] provided active listening, support and helped patient process through current symptoms and stressors related to family conflict. [facility]/HE[facility] ECONOMIST discussed resources for housing and supports with patient. ~[facility] discussed potential benefit of counseling and supports. Patient is willing to reconsider meeting with a provider at another agency than she has in the past as she does not want all of the same services [facility] Start: 09-04-2020 End: 09-04-2020 Patient education based on identified need [facility] Start: 08-29-2020 Creatinine monitoring Creatinine monitoring [facility] [place] , [place] Start: 08-29-2020 Potassium monitoring Potassium monitoring [facility] [place], [place] Start: 08-27-2020 End: 08-27-2020 Office Visit 08/27/2020 Office Visit Cardiology Nat Mora MD [address] [place] [address] [place] [address] [facility] Start: 08-21-2020 Creatinine monitoring Creatinine monitoring [facility] Work Phone: Start: 08-21-2020 Potassium monitoring Potassium monitoring [facility] Work Phone: Start: 07-05-2020 End: 07-05-2020 Appointment 07/05/2020 Appointment Stress Lab [facility] Stress Lab Start: 06-12-2020 Medical Established Patient [facility] Work Phone: Start: 06-11-2020 SARS-CoV-2, [facility] Work Phone: Start: 06-04-[address] up Testing [facility] Work Phone: Start: 05-09-2020 SARS-CoV-2, [facility] Work Phone: Start: 05-03-[address] up Testing [facility] Work Phone: Start: 05-02-2020 End: 05-02-2020 Patient education based on identified need [facility] Start: 04-20-2020 Creatinine monitoring Creatinine monitoring [facility] , [place] Start: 04-20-2020 Potassium monitoring Potassium monitoring [facility], [place] Start: 03-19-2020 Influenza vaccination [facility], [place] Start: 02-22-2020 End: 02-22-2020 Ancillary [address] [facility] OBSTETRICS & GYNECOLOGY Start: 02-20-2020 End: 02-20-2020 Office Visit 02/20/2020 Office Visit Cardiology Nat Mora MD [address] [place] [address] [facility] Start: 02-19-2020 End: 02-19-2020 Appointment 02/19/2020 Appointment Sleep Center [facility] Start: 02-07-2020 Creatinine monitoring Creatinine monitoring [facility] [place] Start: 02-07-2020 Lipid screen Lipid screen [place], [place] Start: 02-07-2020 Potassium monitoring Potassium monitoring [facility] [place] Start: 01-24-2020 End: 01-24-2020 Office Visit 01/24/2020 Office Visit Obstetrics and Gynecology Geoff Chu MD [address] [place] [address] [facility] OBSTETRICS & GYNECOLOGY Start: 01-22-2020 Lipid 1996 panel [facility] Work Phone: Start: 01-11-2020 End: 01-11-2020 Appointment 01/11/2020 Appointment Sleep Center [facility] Start: 12-29-2019 Hospital Encounter 12/29/2019 Hospital Encounter IP Unit [facility] [employer] Start: 12-28-2019 End: 12-28-2019 Office Visit 12/28/2019 Office Visit Cardiology Nat Mora MD [address] [place] [address] [facility] CARDIOLOGY Start: 12-21-2019 Medical Established Patient [facility] Work Phone: Start: 10-20-2019 Sleep Disorders [facility] Work Phone: Comment on above: Note: [...] past and nothing has been sucessful. ~ [facility] Start: 10-06-2019 Screening for malignant neoplasm of breast Breast cancer screen [facility] Start: 06-20-2019 End: 06-20-2019 Office Visit 06/20/2019 Office Visit Cardiology Nat Mora MD [address] [place] [phone] [facility] CARDIOLOG[facility] Start: 06-05-2019 End: 06-05-2019 Office Visit 06/05/2019 Office Visit Cardiology Nat Mora MD [address] [place] [phone] [facility] CARD[facility] Start: 05-22-2019 End: 05-22-2019 Office Visit 05/22/2019 Office Visit Neurology Mary Jane Oconnor MD [address] [place], [place] [id number] [facility] Neuro [facility] Start: 03-19-2019 Influenza vaccination Flu vaccine (#1) [place], [place] Start: 02-04-2018 Hepatic function panel Liver function panel [facility] Start: 02-04-2018 Lipid panel Lipid panel [facility] Start: 01-25-2018 Hepatic function panel Liver function panel [facility] Start: 01-25-2018 Lipid panel Lipid panel [facility] Start: 01-20-2018 Basic metabolic panel calcium total BMP (basic metabolic panel) [facility] Start: 01-20-2018 Lipid panel Lipid Panel (Chol, HDL, LDL, Trig., VLDL) [facility] Start: 11-28-2017 Cervical cancer screen Cervical cancer screen [place], [place] Start: 11-28-2017 Screening for malignant neoplasm of cervix Cervical cancer screen [place], [place] Start: 10-05-2017 Hepatic function panel Liver function panel [facility] Start: 03-20-2018 Lipid panel Lipid Panel (Chol, HDL, LDL, Trig., VLDL) [facility] Start: 03-23-2017 25 hydroxy includes fractions if performed VITAMIN D 25 HYDROXY [facility] Start: 03-23-2017 Assay of free thyroxine TSH + free t4 [facility] Start: 03-23-2017 Assay of thyroid stimulating hormone tsh TSH + free t4 [facility] Start: 03-23-2017 Lipid panel Lipid panel [facility] Start: 11-29-1994 Hepatitis B vaccine (1 of 3 - 19+ 3-dose series) Hepatitis B vaccine (1 of 3 - 19+ 3-dose series) [facility] Start: 11-29-1993 Hepatitis C screening Hepatitis C screen [facility] Start: 1991 COVID-19 Vaccine (1) COVID-19 Vaccine (1) [facility] Work Phone: Start: 11-29-1990 HIV screen HIV screen [place], [place] Start: 11-29-1990 HIV screening HIV screen [facility] Start: 1987 COVID-19 Vaccine (1) COVID-19 Vaccine (1) [facility] Work Phone: Start: 1987 Depression Monitoring Depression Monitoring [facility] Start: 11-29-1981 Pneumococcal 0-64 years Vaccine (1 - PCV) Pneumococcal 0-64 years Vaccine (1 - PCV) [facility] Start: 11-29-1981 Pneumococcal 0-64 years Vaccine (1 of 1 - PPSV23) Pneumococcal 0-64 years Vaccine (1 of 1 - PPSV23) [place] Start: 11-29-1981 Pneumococcal 0-64 years Vaccine (1 of 2 - PCV) Pneumococcal 0-64 years Vaccine (1 of 2 - PCV) [facility] Start: 11-29-1981 Pneumococcal 0-64 years Vaccine (1 of 2 - PPSV23) Pneumococcal 0-64 years Vaccine (1 of 2 - PPSV23) [facility] Start: 11-29-1980 COVID-19 Vaccine (1) COVID-19 Vaccine (1) [facility] Start: 1975 Hepatitis B vaccine (1 of 3 - 3-dose series) Hepatitis B vaccine (1 of 3 - 3-dose series) [facility] Start: 1975 Hepatitis C screening Hepatitis C screen [facility] End: 10-10-2019 Antithrombin III Activity Antithrombin III Activity Lab Routine One Time for 1 Occurrences starting 10/10/2019 until 10/10/2019 [place], [place] Comment on above: One Time for 1 Occurrences starting 09/17 until 10/10/2019 Antithrombin III Activity Antith rombin III Activity Lab Routine 10/10/2019 10:18 AM EDT [place], [place] End: 10-19-2021 aPTT in Blood by Coagulation assay APTT Lab STAT One Time for 1 Occurrences starting 10/19/2021 until 10/19/2021 [facility] Phone: Comment on above: One Time for 1 Occurrences starting 09/2021 until 10/19/2021 Basic metabolic 2000 panel M [place], [place] Comment on above: Daily until discontinued starting 2019 End: 08-30-2020 Basic Metabolic Panel w/ Reflex to MG Basic Metabolic Panel w/ Reflex to MG Lab Routine Daily for 3 Occurrences starting 08/28/2020 until 08/30/2020, 2 completed [employer] Phone: Comment on above: Daily for 3 Occurrences starting 021 until 08/30/2020, 2 completed Basic Metabolic Pane l w/ Reflex to MG Basic Metabolic Panel w/ Reflex to MG Lab Routine Daily until discontinued starting 01/03/2021, 1 completed [employer] Phone: Comment on above: Daily until discontinued starting 2020, 1 completed End: 10-19-2021 Basic Metabolic Panel w/ Reflex to MG Basic Metabolic Panel w/ Reflex to MG Lab STAT One Time for 1 Occurrences starting 10/19/2021 until 10/19/2021 [employer] Phone: Comment on above: One Time for 1 Occurrences starting 09/2021 until 10/19/2021 End: 10-30-2021 Catheterization and angiography procedure details panel [employer] Phone: Comment on above: One Time for 1 Occurrences starting 10/17 until 10/30/2021 End: 08-20-2022 Catheterization and angiography procedure details panel [facility] Procedure Cardiac Cath Routine One Time for 1 Occurrences starting 08/20/2022 until 08/20/2022 [facility] [employer] Phone: Comment on above: One Time for 1 Occurrences starting 08/2022 until 08/20/2022 End: 08-30-2020 CBC auto differential CBC auto differential Lab Routine Daily for 3 Occurrences starting 08/28/2020 until 08/30/2020, 2 completed [employer] Phone: Comment on above: Daily for 3 Occurrences starting 021 until 08/30/2020, 2 completed End: 10-19-2021 CBC panel - Blood by Automated count CBC Lab STAT One Time for 1 Occurrences starting 10/19/2021 until 10/19/2021 [employer] Phone: Comment on above: One Time for 1 Occurrences starting 09/2021 until 10/19/2021 CBC W Auto Different ial panel - Blood CBC auto differential Lab Routine Daily until discontinued starting 01/03/2021, 1 completed [employer] Phone: Comment on above: Daily until discontinued starting 2020, 1 completed End: 10-20-2021 Continuous pulse oximetry Pulse oximetry, continuous Respiratory Care Routine Every 4hr for 24 Hours starting 10/20/2021 until 10/20/2021 [employer] Phone: Comment on above: Every 4hr for 24 Hours starting 10/21/19 until 10/20/2021 End: 10-21-2021 Continuous pulse oximetry Pulse oximetry, continuous Respiratory Care Routine Every 4hr for 24 Hours starting 10/20/2021 until 10/21/2021 [employer] Phone: Comment on above: Every 4hr for 24 Hours starting 10/21/19 22 until 10/21/2021 End: 02-14-2020 COVID-19 Ambulatory COVID-19 Ambulatory Lab Routine Pre-op testing 1 Occurrences starting 02/14/2020 until 02/14/2020 [place] Comment on above: 1 Occurrences starting 02/14/2020 until 02/14/2020 COVID-19 Ambulatory COVID-19 Amb ulatory Lab Routine Pre-op testing 02/14/2020 1:56 PM EDT [place] End: 06-17-2020 COVID-19, PCR COVID-19, PCR Lab Routine One Time for 1 Occurrences starting 06/17/2020 until 06/17/2020 [place] Comment on above: One Time for 1 Occurrences starting 05/21 until 06/17/2020 COVID-19, PCR COVID-19, PCR La b STAT 06/17/2020 11:[facility] [place] End: 10-19-2021 COVID-19, Rapid [employer] Work Phone: Comment on above: Once for 1 Occurrences starting 10/20/19 22 until 10/19/2021 CT Abdomen and Pelvi s W contrast IV CT ABDOMEN PELVIS W IV CONTRAST Additional Contrast? None Imaging STAT 08/12/2023 4:10 PM EST [facility] End: 09-19-2020 Culture, Urine Culture, Urine Microbiology Routine Right sided abdominal pain 1 Occurrences starting 09/19/2020 until 09/19/2020 [employer] Phone: Comment on above: 1 Occurrences starting 09/19/2020 until 09/19/2020 Culture, Urine Culture, Urine M icrobiology Routine Right sided abdominal pain 09/19/2020 10:12 AM [facility] Phone: Culture, Wound Culture, Wound M icrobiology Routine Vulvar cyst 02/22/2020 5:09 PM [place], [place] End: 01-24-2020 Cytopathology procedure, preparation of smear, genital source PAP SMEAR Lab Routine Women's annual routine gynecological examination 1 Occurrences starting 01/24/2020 until 01/24/2020 [place], [place] Comment on above: 1 Occurrences starting 01/24/2020 until 01/24/2020 End: 07-24-2021 Cytopathology procedure, preparation of smear, genital source PAP SMEAR Lab Routine Women's annual routine gynecological examination 1 Occurrences starting 07/24/2021 until 07/24/2021 [employer] Phone: Comment on above: 1 Occurrences starting 07/24/2021 until 07/24/2021 EKG 12 Lead [facility] [place] Comment on above: As Needed until discontinued starting EKG 12 Lead EKG 12 Lead ECG STAT 06/06/2021 9:57 AM EST [employer] Phone: EKG 12 Lead EKG 12 Lead ECG Routine 07/08/2021 2:55 PM EST [employer] Phone: EKG 12 Lead EKG 12 Lead ECG STAT 10/19/2021 8:44 PM EDT [employer] Phone: EKG 12 Lead EKG 12 Lead ECG STAT 08/20/2022 12:16 PM EST [employer] Phone: EKG 12 Lead EKG 12 Lead ECG STAT 08/12/2023 3:35 PM EST [facility] EKG 12 Lead EKG 12 Lead ECG STAT 12/23/2023 1:50 PM EDT [facility] EKG 12 Lead EKG 12 Lead ECG STAT 03/12/2024 11:54 AM EDT [employer] Phone: End: 10-10-2019 Factor 5 Leiden Factor 5 Leiden Lab Routine One Time for 1 Occurrences starting 10/10/2019 until 10/10/2019 [employer] [place] Comment on above: One Time for 1 Occurrences starting 09/17 until 10/10/2019 End: 10-19-2021 Glucose [Mass/volume] in Serum or Plasma POCT Glucose Point of Care Testing STAT One Time for 1 Occurrences starting 10/19/2021 until 10/19/2021 [employer] Phone: Comment on above: One Time for 1 Occurrences starting 09/2021 until 10/19/2021 H. PYLORI DETECTION [employer] Phone: Comment on above: Release Upon Ordering for 1 Occurrences starting 01/03/2021 Initiate Oxygen Ther apy Protocol [facility]- [place], [place] Comment on above: Daily until discontinued starting 2018 Daily until disconti nued starting 10/09/2019 Daily until disconti nued starting 12/28/2019 Daily until disconti nued starting 12/29/2019 Daily until disconti nued starting 12/30/2019 End: 06-19-2021 Intermittent pulse oximetry Pulse Oximetry Spot Check Respiratory Care Routine One Time for 1 Occurrences starting 06/19/2021 until 06/19/2021 [employer] Phone: Comment on above: One Time for 1 Occurrences starting 08/2020 until 06/19/2021 Intermittent pulse oximetry Puls e Oximetry Spot Check Respiratory Care Routine As Needed until discontinued starting 10/22/2021 [employer] Phone: Comment on above: As Needed until discontinued starting End: 10-30-2021 Intermittent pulse oximetry Pulse Oximetry Spot Check Respiratory Care Routine One Time for 1 Occurrences starting 10/30/2021 until 10/30/2021 [employer] Phone: Comment on above: One Time for 1 Occurrences starting 10/17 until 10/30/2021 End: 11-06-2021 Intermittent pulse oximetry Pulse Oximetry Spot Check Respiratory Care Routine One Time for 1 Occurrences starting 11/06/2021 until 11/06/2021 [employer] Phone: Comment on above: One Time for 1 Occurrences starting 10/18 until 11/06/2021 End: 08-20-2022 Intermittent pulse oximetry Pulse Oximetry Spot Check Respiratory Care Routine One Time for 1 Occurrences starting 08/20/2022 until 08/20/2022 KURTIS MEJIA [employer] Phone: Comment on above: One Time for 1 Occurrences starting 08/2022 until 08/20/2022 End: 10-22-2021 IR ANGIOGRAM CAROTID C EREBRAL BILATERAL IR ANGIOGRAM CAROTID C EREBRAL BILATERAL Imaging Routine Once for 1 Occurrences starting 10/22/2021 until 10/22/2021 [employer] Phone: Comment on above: Once for 1 Occurrences starting 10/23/19 until 10/22/2021 IR ANGIOGRAM CAROTID C EREBRAL BILATERAL IR ANGIOGRAM CAROTID C EREBRAL BILATERAL Imaging Routine 10/22/2021 5:26 PM EDT [employer] Phone: Lac Repair Lac Repair Proce dures Routine 04/28/2020 3:41 PM EDT [facility] [place], [place] End: 12-29-2019 LDL Cholesterol, Direct LDL Cholesterol, Direct Lab Routine Once for 1 Occurrences starting 12/29/2019 until 12/29/2019 [employer] [place] Comment on above: Once for 1 Occurrences starting 12/29/19 until 12/29/2019 LDL Cholesterol, Direct LDL Chol esterol, Direct Lab Routine 12/29/2019 6:00 AM EDT [facility] [place], [place] End: 10-07-2021 Lipid panel [employer] Phone: Comment on above: One Time for 1 Occurrences starting 09/17 until 10/07/2021 LUPUS ANTICOAGULANT LUPUS ANTICO AGULANT Lab Routine 10/10/2019 10:18 AM EDT [facility] [place] Oxygen therapy [Mini mum Data Set] [employer] Phone: Comment on above: Daily until discontinued starting 2020 Daily until disconti nued starting 01/02/2021 Oxygen therapy [Mini mum Data Set] Initiate Oxygen Therapy Protocol Respiratory Care Routine Daily until discontinued starting 06/19/2021 [employer] Phone: Comment on above: Daily until discontinued starting 2020 Oxygen therapy [Mini mum Data Set] Initiate Oxygen Therapy Protocol Respiratory Care Routine Daily until discontinued starting 06/19/2021 [employer] Phone: Comment on above: Daily until discontinued starting 2020 Oxygen therapy [Mini mum Data Set] Initiate Oxygen Therapy Protocol Respiratory Care Routine As Needed until discontinued starting 10/06/2021 [employer] Phone: Comment on above: As Needed until discontinued starting Oxygen therapy [Mini mum Data Set] Initiate Oxygen Therapy Protocol Respiratory Care Routine As Needed until discontinued starting 10/19/2021 [employer] Phone: Comment on above: As Needed until discontinued starting Oxygen therapy [Mini mum Data Set] Initiate Oxygen Therapy Protocol Respiratory Care Routine As Needed until discontinued starting 10/20/2021 [employer] Phone: Comment on above: As Needed until discontinued starting Oxygen therapy [Mini mum Data Set] Initiate Oxygen Therapy Protocol Respiratory Care Routine As Needed until discontinued starting 10/22/2021 [employer] Phone: Comment on above: As Needed until discontinued starting Oxygen therapy [Mini mum Data Set] Initiate Oxygen Therapy Protocol Respiratory Care Routine As Needed until discontinued starting 10/30/2021 [employer] Phone: Comment on above: As Needed until discontinued starting Oxygen therapy [Mini mum Data Set] Initiate Oxygen Therapy Protocol Respiratory Care Routine As Needed until discontinued starting 11/06/2021 [employer] Phone: Comment on above: As Needed until discontinued starting Oxygen therapy [Mini mum Data Set] Initiate Oxygen Therapy Protocol Respiratory Care Routine As Needed until discontinued starting 11/06/2021 [employer] Phone: Comment on above: As Needed until discontinued starting Oxygen therapy [Mini mum Data Set] Initiate Oxygen Therapy Protocol Respiratory Care Routine As Needed until discontinued starting 08/20/2022 KURTIS MEJIA [employer] Phone: Comment on above: As Needed until discontinued starting POCT Glucose POCT Glucose Poi nt of Care Testing STAT As Needed until discontinued [facility] [place] [facility]: As Needed until discontinued starting End: 10-10-2019 Protein C Functional Protein C Functional Lab Routine One Time for 1 Occurrences starting 10/10/2019 until 10/10/2019 [facility] [place] Comment on above: One Time for 1 Occurrences starting 09/17 until 10/10/2019 Protein C Functional Protein C F un[facility] [place] [facility]-10-[facility] Protein S Functional Protein S Functional Lab Routine One Time for 1 Occurrences starting 10/10/2019 until 10/10/2019 [facility] [place] Comment on above: One Time for 1 Occurrences starting 09/17 until 10/10/2019 Protein S Functional Protein S F unctional Lab [facility] [place] End: 10-10-2019 Prothrombin Gene Mutation Prothrombin Gene Mutation Lab Routine One Time for 1 Occurrences starting 10/10/2019 until 10/10/2019 [place] Comment on above: One Time for 1 Occurrences starting 09/17 until 10/10/2019 Protime-INR Protime-INR Lab STAT As Needed until discontinued starting 12/29/2019 [place], [place] Comment on above: As Needed until discontinued starting Protime-INR Protime-INR Lab STAT As Needed until discontinued starting 06/19/2021 [employer] Phone: Comment on above: As Needed until discontinued starting End: 10-19-2021 Protime-INR Protime-INR Lab STAT One Time for 1 Occurrences starting 10/19/2021 until 10/19/2021 [employer] Phone: Comment on above: One Time for 1 Occurrences starting 09/2021 until 10/19/2021 Protime-INR Protime-INR Lab STAT As Needed until discontinued starting 10/30/2021 [employer] Phone: Comment on above: As Needed until discontinued starting End: 12-28-2019 Pulse Oximetry Spot Check Pulse Oximetry Spot Check Respiratory Care Routine One Time for 1 Occurrences starting 12/28/2019 until 12/28/2019 [place] Comment on above: One Time for 1 Occurrences starting 12/17 until 12/28/2019 End: 12-29-2019 Pulse Oximetry Spot Check Pulse Oximetry Spot Check Respiratory Care Routine One Time for 1 Occurrences starting 12/29/2019 until 12/29/2019 [facility] [place] Comment on above: One Time for 1 Occurrences starting 12/17 until 12/29/2019 End: 02-19-2020 Sleep Study with PAP Titration Sleep Study with PAP Titration Sleep Center Routine One Time for 1 Occurrences starting 02/19/2020 until [facility]/19/[facility] above: One Time for 1 Occurrences starting 09/2019 until 02/19/2020 End: 10-19-2021 Speech and language therapy regime Speech Language Pathology (REHAB PHYSICIAN) eval and treat REHAB PHYSICIAN Routine One Time for 1 Occurrences starting 10/19/2021 until 10/19/2021 [employer] Phone: Comment on above: One Time for 1 Occurrences starting 09/2021 until 10/19/2021 End: 10-20-2021 Speech and language therapy regime Speech Language Pathology (REHAB PHYSICIAN) eval and treat REHAB PHYSICIAN Routine One Time for 1 Occurrences starting 10/20/2021 until 10/20/2021 [employer] Phone: Comment on above: One Time for 1 Occurrences starting 10/2021 until 10/20/2021 Spirometry panel Incentive carey metry Respiratory Care Routine Daily until discontinued starting 10/19/2021 [employer] Phone: Comment on above: Daily until discontinued starting 2021 Spirometry panel Incentive carey metry Respiratory Care Routine Daily until discontinued starting 10/20/2021 [employer] Phone: Comment on above: Daily until discontinued starting 2021 Surgical Pathology Surgical Path ology Lab Routine Release Upon Ordering for 1 Occurrences starting 01/03/2021 [employer] Phone: Comment on above: Release Upon Ordering for 1 Occurrences starting 01/03/2021 End: 07-24-2021 Surgical Pathology Surgical Pathology Lab Routine Vulval lesion 1 Occurrences starting 07/24/2021 until 07/24/2021 [employer] Phone: Comment on above: 1 Occurrences starting 07/24/2021 until 07/24/2021 End: 10-19-2021 Troponin I.cardiac [Mass/volume] in Serum or Plasma Troponin Lab STAT One Time for 1 Occurrences starting 10/19/2021 until 10/19/2021 [employer] Work Phone: Comment on above: One Time for 1 Occurrences starting 09/2021 until 10/19/2021 Immunizations Immunization Date Immunization Notes Care Provider Fa cility 06-16-2021 COVID-19, Moderna, Primary or Immunocompromised, PF, 100mcg/0.5mL EnaFTL 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 Payers Date Payer Category Payer Medicaid [employer] [id number] 2022 Unknown 2019 Unknown [id number] [id number] 9.5.10.6.3 2019 Unknown PARAMOUNT ADVANT AGE PARAMOUNT ADVANTAGE xxxxxxxxxxx 2019-Present [phone] [address] [place] [address] xxxxxxxxxxx [id number]. [id number] 2019 Unknown PARAMOUNT ADVANT AGE PAR[employer]OUNT ADVANTAGE [id number] 2019-Present [phone] [address] [place] [address] [id number] [id number]. [id number] 2019 Unknown [id number] 1.2.840.262601.1.13.239.2.7.3. [id number] 2018 Unknown NONE 2.16.840.1 .709175.3.441 2024 Unknown [id number] 2.16.840.1.026452.3.441 2017 Unknown [id number] 2.16.840.1.652409.3.441 2017 Unknown [id number] 1.2.840.510513.1.13.239.2.7.3. [id number] 2016 Unknown [id number] 2.16.840.1.071011.3.441 1975 Unknown [id number] 2.16.840.1.630953.3.579.2.175 1975 Unknown [id number] 2.16.840.1.927697.3.579.2.196 1975 Unknown [id number] 2.16.840.1.799393.3.579.2.196 1975 Unknown [id number] 2.16.840.1.806298.3.579.2.173 1975 Unknown [id number] 2.16.840.1.598535.3.579.2.173 1975 Unknown [id number] 2.16.840.1.091586.3.579.2.173 1975 Unknown [id number] 2.16.840.1.191976.3.579.2.173 1975 Unknown [id number] 2.16.840.1.809466.3.579.2.173 1975 Unknown [id number] 2.16.840.1.558253.3.579.2.173 1975 Unknown [id number] 2.16.840.1.448817.3.579.2.173 1975 Unknown [id number] 2.16.840.1.737737.3.579.2.173 1975 Unknown [id number] 2.16.840.1.561533.3.579.2.173 1975 Unknown [id number] 2.16.840.1.156848.3.579.2.173 1975 Unknown [id number] 2.16.840.1.407823.3.579.2.173 1975 Unknown [id number] 2.16.840.1.675067.3.579.2.1286 1975 Unknown [id number] 2.16.840.1.669144.3.579.2.1286 Self-pay [id number] 2.16.840.1.785404.3.140.1.7299 9.5.4 Social History Date Type Detail Facility Start: Former smoker [facility] Start: 08-29-2019 End: 12-31-2023 Former smoker [employer] Start: Current every day smoker [facility] Start: 04-19-2019 End: 06-08-2019 Tobacco smoking status NHIS [place] Start: 07-14-1998 End: 07-14-2018 History of tobacco use [place]igarette [place] Start: 04-19-2019 End: 12-23-2023 Cigarettes smoked current (pack per day) - Reported [facility] Start: 04-19-2019 End: 12-23-2023 Alcohol intake Yes [facility] [employer] Start: 10-29-2014 Tobacco Comment Has tried to q uit but just can't seem [facility] Start: 09-10-2014 [facility] Start: 1975 Sex Assigned At Not on file M [facility] Start: 06-08-2019 End: 12-21-2022 Alcohol intake Current drinker of alcohol (finding) [facility] [place] Start: 07-14-1998 End: 07-14-2018 History of tobacco use Current smoker [employer] Phone: Assertion Emotional stress (finding) [facility] Tobacco smoking status Unknown if ever smoked [facility] Exposure to SARS-CoV-2 (event) Unable to assess [place], [place] Start: 01-24-2020 End: 12-31-2023 Tobacco use and exposure Never used [place], [place] Start: 09-26-2021 End: 08-20-2022 Exposure to SARS-CoV-2 (event) Not sure [place] Exposure to SARS-CoV-2 (event) Yes [place] Assertion Gender identity finding (finding) [facility] Assertion Finding of sexua l orientation (finding) [facility] Assertion Family disruptio n (finding) [facility] Assertion Lives with paren ts (finding) [facility] Assertion Family problems (finding) [facility] Start: 1975 Sex Assigned At Female M una [employer] Phone: Start: 01-03-2021 End: 03-12-2024 Alcohol intake Ex-drinker (finding) [employer] Phone: Assertion Sexually active (finding) [facility] Assertion Changed job (finding) [facility] Assertion Stress (finding) [facility] Start: 07-28-2022 End: 01-27-2023 History SDOH Alcohol Frequency 1 [facility] [employer] Phone: Assertion Lives with famil y (finding) [facility] Assertion Unemployed (finding) [facility] How often to you hav e a drink containing alcohol? Never [facility] How many standard drinks containing alcohol do you have on a typical day? Patient does not drink [facility] Start: 09-04-2020 Gender identity Identifies as female gender (finding) [facility] Start: 09-04-2020 Sexual orientation Heterosexual (moy merrill) [facility] Assertion Exposure to poll ution (event) [facility] Has the electric, gas, oil, or water company threatened to shut off services in your home in past 12Mo No [facility] (I/We) worried whether (my/our) food would run out before (I/we) got money to buy more. Never true [facility] Assertion Family illness (situation) [facility] NEGATED: Highlighted row Assertion Current drinker of alcohol (finding) [facility] NEGATED: Highlighted row Assertion Finding relating to drug misuse behavior (finding) [facility] NEGATED: Highlighted row Assertion Exposure to pollution (event) [facility] NEGATED: Highlighted row Assertion Tobacco user (finding) [facility] Work Phone: NEGATED: Highlighted row Assertion [facility] NEGATED: Highlighted row Assertion Sexually active (finding) [facility] Goals Date Patient Goal Desired Activity /State Personal health goal Personal health goal Personal health goal Functional Status Date Assessment Result Facility Finding Health [facility] Work Phone: Mental Status Date Assessment Result Facility Cognitive function No anxiety Anxiety (fi nding) [facility] Work Phone: Clinical Notes 10-20-2019 to 06-05-2024 Discharge InstructionsDischarge Instr - COCAttachments Note Date & Type Note Facility 06-05-2024 Note XR ELBOW RT MIN 3 VW S Procedure: Right elbow radiographs performed Number of views:3 History:Injury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 high fiber diet Last Documented On 0 1:48PM ; [facility] Patient education about low fat diet Last Documented On 0 1:48PM ; [facility] Patient education about low cholesterol diet Last Documented On 0 1:48PM ; [facility] Patient education about low carbohydrate diet Last Documented On 0 1:48PM ; [facility] Patient education about high protein diet Last Documented On 0 1:48PM ; [facility] offered active and suppo rtive listening, normalized emotions and feelings, processed current stressors and explored coping and stress reducing skills. ~[facility] attempted to discuss sleep hygiene strategies with patient including meditation, reducing caffeine use, increaing physical activity during the day as tolerated, and engaging in calming activities. Patient states that she has tried many things in the past and nothing has been sucessful. ~ Last Documented On 0 8:21AM ; [facility] Work Phone: Instructions Includes: Instructions for all patient encounters Education and Decision Aids were provided during visit for: [facility] offered active and suppo rtive listening, normalized emotions and feelings, processed current stressors and explored coping and stress reducing skills. ~[facility] discussed coping skills to manage increased anxiety such as breathing techniques, mindfulness and meditation. [facility] discussed potential benefit in counseling and provided resource list. ~[facility] discussed healthy lifestyle changes to implement Last Documented On 3 3:16PM ; [facility] Discussed nutritional needs teach healthy choices including fruits and vegetables Last Documented On 3 11:08AM ; [facility] Patient education about a pr oper diet Last Documented On 3 11:08AM ; [facility] Discussed concerns about exe rcise : promote physical activity Last Documented On 3 11:08AM ; [facility] Discussed nutritional needs teach healthy choices including fruits and vegetables Last Documented On 2 11:44AM ; [facility] Patient education about a pr oper diet Last Documented On 2 11:44AM ; [facility] Discussed concerns about exe rcise : promote physical activity Last Documented On 2 11:44AM ; [facility] Problems sleeping Last Documented On 2 9:03AM ; [facility] Discussed nutritional needs teach healthy choices including fruits and vegetables Last Documented On 2 8:19AM ; [facility] Patient education about a pr oper diet Last Documented On 2 8:19AM ; [facility] Discussed concerns about exe rcise : promote physical activity Last Documented On 2 8:19AM ; [facility] Discussed nutritional needs teach healthy choices including fruits and vegetables Last Documented On 2 11:56AM ; [facility] Patient education about a pr oper diet Last Documented On 2 11:56AM ; [facility] Discussed concerns about exe rcise : promote physical activity Last Documented On 2 11:56AM ; [facility] Discussed nutritional needs teach healthy choices including fruits and vegetables Last Documented On 2 12:03PM ; [facility] Patient education about a pr oper diet Last Documented On 2 12:03PM ; [facility] Discussed concerns about exe rcise : promote physical activity Last Documented On 2 12:03PM ; [facility] Discussed current self-care methods/coping skills. ~Validated and normalized pt's feelings while assisting patient process recent events. ~Encouraged ongoing counseling. ~Discussed lifestyle changes to address chronic illness. ~Supported patient's personal health goals Last Documented On 2 9:32PM ; [facility] Discussed nutritional needs teach healthy choices including fruits and vegetables Last Documented On 2 2:12PM ; [facility] Patient education about a pr oper diet Last Documented On 2 2:12PM ; [facility] Discussed concerns about exe rcise : promote physical activity Last Documented On 2 2:12PM ; [facility] Discussed nutritional needs teach healthy choices including fruits and vegetables Last Documented On 1 4:05PM ; [facility] Patient education about a pr oper diet Last Documented On 1 4:05PM ; [facility] Discussed concerns about exe rcise : promote physical activity Last Documented On 1 4:05PM ; [facility] Discussed nutritional needs teach healthy choices including fruits and vegetables Last Documented On 1 7:23PM ; [facility] Patient education about a pr oper diet Last Documented On 1 7:23PM ; [facility] Patient education about a pr oper diet Last Documented On 1 7:45PM ; [facility] Patient education about meal planning Last Documented On 1 7:45PM ; [facility] Education about changing eat ing habits Last Documented On 1 7:45PM ; [facility] Patient education about high fiber diet Last Documented On 1 7:45PM ; [facility] Patient education about low fat diet Last Documented On 1 7:45PM ; [facility] Patient education about low cholesterol diet Last Documented On 1 7:45PM ; [facility] Patient education about low carbohydrate diet Last Documented On 1 7:45PM ; [facility] Discussed concerns about exe rcise : promote physical activity Last Documented On 1 7:23PM ; [facility] Discussed nutritional needs teach healthy choices including fruits and vegetables Last Documented On 1 4:54PM ; [facility] Patient education about a pr oper diet Last Documented On 1 4:54PM ; [facility] Patient education about a pr oper diet Last Documented On 1 5:25PM ; [facility] Patient education about meal planning Last Documented On 1 5:25PM ; [facility] Education about changing eat ing habits Last Documented On 1 5:25PM ; [facility] Patient education about high fiber diet Last Documented On 1 5:25PM ; [facility] Patient education about low fat diet Last Documented On 1 5:25PM ; [facility] Patient education about low cholesterol diet Last Documented On 1 5:25PM ; [facility] Patient education about low carbohydrate diet Last Documented On 1 5:25PM ; [facility] Patient education about high protein diet Last Documented On 1 5:25PM ; [facility] Discussed concerns about exe rcise : promote physical activity Last Documented On 1 4:54PM ; [facility] provided active listenin g, support and helped patient process through current symptoms and stressors related to family conflict. [facility] discussed resources for housing and supports with patient. ~P discussed potential benefit of counseling and supports. Patient is willing to reconsider meeting with a provider at another agency than she has in the past as she does not want all of the same services Last Documented On 1 2:40PM ; [facility] Discussed nutritional needs teach healthy choices including fruits and vegetables Last Documented On 1 3:21PM ; [facility] Patient education about a pr oper diet Last Documented On 1 3:21PM ; [facility] Patient education about a pr oper diet Last Documented On 1 4:08PM ; [facility] Patient education about meal planning Last Documented On 1 4:08PM ; [facility] Education about changing eat ing habits Last Documented On 1 4:08PM ; [facility] Patient education about high fiber diet Last Documented On 1 4:08PM ; [facility] Patient education about low fat diet Last Documented On 1 4:08PM ; [facility] Patient education about low cholesterol diet Last Documented On 1 4:08PM ; [facility] Patient education about low carbohydrate diet Last Documented On 1 4:08PM ; [facility] Patient education about high protein diet Last Documented On 1 4:08PM ; [facility] Discussed concerns about exe rcise : promote physical activity Last Documented On 1 3:21PM ; [facility] Patient education about a pr oper diet Last Documented On 0 1:48PM ; [facility] Patient education about meal planning Last Documented On 0 1:48PM ; [facility] Education about changing eat ing habits Last Documented On 0 1:48PM ; [facility] Patient education about high fiber diet Last Documented On 0 1:48PM ; [facility] Patient education about low fat diet Last Documented On 0 1:48PM ; [facility] Patient education about low cholesterol diet Last Documented On 0 1:48PM ; [facility] Patient education about low carbohydrate diet Last Documented On 0 1:48PM ; [facility] Patient education about high protein diet Last Documented On 0 1:48PM ; [facility] offered active and suppo rtive listening, normalized emotions and feelings, processed current stressors and explored coping and stress reducing skills. ~[facility] attempted to discuss sleep hygiene strategies with patient including meditation, reducing caffeine use, increaing physical activity during the day as tolerated, and engaging in calming activities. Patient states that she has tried many things in the past and nothing has been sucessful. ~ Last Documented On 0 8:21AM ; [facility] Work Phone: Instructions Includes: Instructions for all patient encounters Education and Decision Aids were provided during visit for: Discussed nutritional needs teach healthy choices including fruits and vegetables Last Documented On 3 10:41AM ; [facility] Patient education about a pr oper diet Last Documented On 3 10:41AM ; [facility] Discussed concerns about exe rcise : promote physical activity Last Documented On 3 10:41AM ; [facility] offered active and suppo rtive listening, normalized emotions and feelings, processed current stressors and explored coping and stress reducing skills. ~[facility] discussed coping skills to manage increased anxiety such as breathing techniques, mindfulness and meditation. [facility] discussed potential benefit in counseling and provided resource list. ~[facility] discussed healthy lifestyle changes to implement Last Documented On 3 3:16PM ; [facility] Discussed nutritional needs teach healthy choices including fruits and vegetables Last Documented On 3 11:08AM ; [facility] Patient education about a pr oper diet Last Documented On 3 11:08AM ; [facility] Discussed concerns about exe rcise : promote physical activity Last Documented On 3 11:08AM ; [facility] Discussed nutritional needs teach healthy choices including fruits and vegetables Last Documented On 2 11:44AM ; [facility] Patient education about a pr oper diet Last Documented On 2 11:44AM ; [facility] Discussed concerns about exe rcise : promote physical activity Last Documented On 2 11:44AM ; [facility] Problems sleeping Last Documented On 2 9:03AM ; [facility] Discussed nutritional needs teach healthy choices including fruits and vegetables Last Documented On 2 8:19AM ; [facility] Patient education about a pr oper diet Last Documented On 2 8:19AM ; [facility] Discussed concerns about exe rcise : promote physical activity Last Documented On 2 8:19AM ; [facility] Discussed nutritional needs teach healthy choices including fruits and vegetables Last Documented On 2 11:56AM ; [facility] Patient education about a pr oper diet Last Documented On 2 11:56AM ; [facility] Discussed concerns about exe rcise : promote physical activity Last Documented On 2 11:56AM ; [facility] Discussed nutritional needs teach healthy choices including fruits and vegetables Last Documented On 2 12:03PM ; [facility] Patient education about a pr oper diet Last Documented On 2 12:03PM ; [facility] Discussed concerns about exe rcise : promote physical activity Last Documented On 2 12:03PM ; [facility] Discussed current self-care methods/coping skills. ~Validated and normalized pt's feelings while assisting patient process recent events. ~Encouraged ongoing counseling. ~Discussed lifestyle changes to address chronic illness. ~Supported patient's personal health goals Last Documented On 2 9:32PM ; [facility] Discussed nutritional needs teach healthy choices including fruits and vegetables Last Documented On 2 2:12PM ; [facility] Patient education about a pr oper diet Last Documented On 2 2:12PM ; [facility] Discussed concerns about exe rcise : promote physical activity Last Documented On 2 2:12PM ; [facility] Discussed nutritional needs teach healthy choices including fruits and vegetables Last Documented On 1 4:05PM ; [facility] Patient education about a pr oper diet Last Documented On 1 4:05PM ; [facility] Discussed concerns about exe rcise : promote physical activity Last Documented On 1 4:05PM ; [facility] Discussed nutritional needs teach healthy choices including fruits and vegetables Last Documented On 1 7:23PM ; [facility] Patient education about a pr oper diet Last Documented On 1 7:23PM ; [facility] Patient education about a pr oper diet Last Documented On 1 7:45PM ; [facility] Patient education about meal planning Last Documented On 1 7:45PM ; [facility] Education about changing eat ing habits Last Documented On 1 7:45PM ; [facility] Patient education about high fiber diet Last Documented On 1 7:45PM ; [facility] Patient education about low fat diet Last Documented On 1 7:45PM ; [facility] Patient education about low cholesterol diet Last Documented On 1 7:45PM ; [facility] Patient education about low carbohydrate diet Last Documented On 1 7:45PM ; [facility] Discussed concerns about exe rcise : promote physical activity Last Documented On 1 7:23PM ; [facility] Discussed nutritional needs teach healthy choices including fruits and vegetables Last Documented On 1 4:54PM ; [facility] Patient education about a pr oper diet Last Documented On 1 4:54PM ; [facility] Patient education about a pr oper diet Last Documented On 1 5:25PM ; [facility] Patient education about meal planning Last Documented On 1 5:25PM ; [facility] Education about changing eat ing habits Last Documented On 1 5:25PM ; [facility] Patient education about high fiber diet Last Documented On 1 5:25PM ; [facility] Patient education about low fat diet Last Documented On 1 5:25PM ; [facility] Patient education about low cholesterol diet Last Documented On 1 5:25PM ; [facility] Patient education about low carbohydrate diet Last Documented On 1 5:25PM ; [facility] Patient education about high protein diet Last Documented On 1 5:25PM ; [facility] Discussed concerns about exe rcise : promote physical activity Last Documented On 1 4:54PM ; [facility] provided active listenin g, support and helped patient process through current symptoms and stressors related to family conflict. P/[facility] discussed resources for housing and supports with patient. ~P discussed potential benefit of counseling and supports. Patient is willing to reconsider meeting with a provider at another agency than she has in the past as she does not want all of the same services Last Documented On 1 2:40PM ; [facility] Discussed nutritional needs teach healthy choices including fruits and vegetables Last Documented On 1 3:21PM ; [facility] Patient education about a pr oper diet Last Documented On 1 3:21PM ; [facility] Patient education about a pr oper diet Last Documented On 1 4:08PM ; [facility] Patient education about meal planning Last Documented On 1 4:08PM ; [facility] Education about changing eat ing habits Last Documented On 1 4:08PM ; [facility] Patient education about high fiber diet Last Documented On 1 4:08PM ; [facility] Patient education about low fat diet Last Documented On 1 4:08PM ; [facility] Patient education about low cholesterol diet Last Documented On 1 4:08PM ; [facility] Patient education about low carbohydrate diet Last Documented On 1 4:08PM ; [facility] Patient education about high protein diet Last Documented On 1 4:08PM ; [facility] Discussed concerns about exe rcise : promote physical activity Last Documented On 1 3:21PM ; [facility] Patient education about a pr oper diet Last Documented On 0 1:48PM ; [facility] Patient education about meal planning Last Documented On 0 1:48PM ; [facility] Education about changing eat ing habits Last Documented On 0 1:48PM ; [facility] Patient education about high fiber diet Last Documented On 0 1:48PM ; [facility] Patient education about low fat diet Last Documented On 0 1:48PM ; [facility] Patient education about low cholesterol diet Last Documented On 0 1:48PM ; [facility] Patient education about low carbohydrate diet Last Documented On 0 1:48PM ; [facility] Patient education about high protein diet Last Documented On 0 1:48PM ; [facility] offered active and suppo rtive listening, normalized emotions and feelings, processed current stressors and explored coping and stress reducing skills. ~[facility] attempted to discuss sleep hygiene strategies with patient including meditation, reducing caffeine use, increaing physical activity during the day as tolerated, and engaging in calming activities. Patient states that she has tried many things in the past and nothing has been sucessful. ~ Last Documented On 0 8:21AM ; [facility] Work Phone: Instructions Includes: Instructions for all patient encounters Education and Decision Aids were provided during visit for: Discussed nutritional needs teach healthy choices including fruits and vegetables Last Documented On 3 2:01PM ; [facility] Patient education about a pr oper diet Last Documented On 3 2:01PM ; [facility] Discussed concerns about exe rcise : promote physical activity Last Documented On 3 2:01PM ; [facility] Discussed nutritional needs teach healthy choices including fruits and vegetables Last Documented On 3 10:41AM ; [facility] Patient education about a pr oper diet Last Documented On 3 10:41AM ; [facility] Discussed concerns about exe rcise : promote physical activity Last Documented On 3 10:41AM ; [facility] active and suppo rtive listening, normalized emotions and feelings, processed current stressors and explored coping and stress reducing skills. ~[facility] discussed coping skills to manage increased anxiety such as breathing techniques, mindfulness and meditation. P discussed potential benefit in counseling and provided resource list. ~[facility] discussed healthy lifestyle changes to implement Last Documented On 3 3:16PM ; [facility] Discussed nutritional needs teach healthy choices including fruits and vegetables Last Documented On 3 11:08AM ; [facility] Patient education about a pr oper diet Last Documented On 3 11:08AM ; [facility] Discussed concerns about exe rcise : promote physical activity Last Documented On 3 11:08AM ; [facility] Discussed nutritional needs teach healthy choices including fruits and vegetables Last Documented On 2 11:44AM ; [facility] Patient education about a pr oper diet Last Documented On 2 11:44AM ; [facility] Discussed concerns about exe rcise : promote physical activity Last Documented On 2 11:44AM ; [facility] Problems sleeping Last Documented On 2 9:03AM ; [facility] Discussed nutritional needs teach healthy choices including fruits and vegetables Last Documented On 2 8:19AM ; [facility] Patient education about a pr oper diet Last Documented On 2 8:19AM ; [facility] Discussed concerns about exe rcise : promote physical activity Last Documented On 2 8:19AM ; [facility] Discussed nutritional needs teach healthy choices including fruits and vegetables Last Documented On 2 11:56AM ; [facility] Patient education about a pr oper diet Last Documented On 2 11:56AM ; [facility] Discussed concerns about exe rcise : promote physical activity Last Documented On 2 11:56AM ; [facility] Discussed nutritional needs teach healthy choices including fruits and vegetables Last Documented On 2 12:03PM ; [facility] Patient education about a pr oper diet Last Documented On 2 12:03PM ; [facility] Discussed concerns about exe rcise : promote physical activity Last Documented On 2 12:03PM ; [facility] Discussed current self-care methods/coping skills. ~Validated and normalized pt's feelings while assisting patient process recent events. ~Encouraged ongoing counseling. ~Discussed lifestyle changes to address chronic illness. ~Supported patient's personal health goals Last Documented On 2 9:32PM ; [facility] Discussed nutritional needs teach healthy choices including fruits and vegetables Last Documented On 2 2:12PM ; [facility] Patient education about a pr oper diet Last Documented On 2 2:12PM ; [facility] Discussed concerns about exe rcise : promote physical activity Last Documented On 2 2:12PM ; [facility] Discussed nutritional needs teach healthy choices including fruits and vegetables Last Documented On 1 4:05PM ; [facility] Patient education about a pr oper diet Last Documented On 1 4:05PM ; [facility] Discussed concerns about exe rcise : promote physical activity Last Documented On 1 4:05PM ; [facility] Discussed nutritional needs teach healthy choices including fruits and vegetables Last Documented On 1 7:23PM ; [facility] Patient education about a pr oper diet Last Documented On 1 7:23PM ; [facility] Patient education about a pr oper diet Last Documented On 1 7:45PM ; [facility] Patient education about meal planning Last Documented On 1 7:45PM ; [facility] Education about changing eat ing habits Last Documented On 1 7:45PM ; [facility] Patient education about high fiber diet Last Documented On 1 7:45PM ; [facility] Patient education about low fat diet Last Documented On 1 7:45PM ; [facility] Patient education about low cholesterol diet Last Documented On 7:45PM ; [facility] Patient education about low carbohydrate diet Last Documented On 7:45PM ; [facility] Discussed concerns about exe rcise : promote physical activity Last Documented On 1 7:23PM ; [facility] Discussed nutritional needs teach healthy choices including fruits and vegetables Last Documented On 1 4:54PM ; [facility] Patient education about a pr oper diet Last Documented On 1 4:54PM ; [facility] Patient education about a pr oper diet Last Documented On 1 5:25PM ; [facility] Patient education about meal planning Last Documented On 1 5:25PM ; [facility] Education about changing eat ing habits Last Documented On 1 5:25PM ; [facility] Patient education about high fiber diet Last Documented On 1 5:25PM ; [facility] Patient education about low fat diet Last Documented On 1 5:25PM ; [facility] Patient education about low cholesterol diet Last Documented On 1 5:25PM ; [facility] Patient education about low carbohydrate diet Last Documented On 1 5:25PM ; [facility] Patient education about high protein diet Last Documented On 1 5:25PM ; [facility] Discussed concerns about exe rcise : promote physical activity Last Documented On 1 4:54PM ; [facility], support and helped patient process through current symptoms and stressors related to family conflict. [facility] discussed resources for housing and supports with patient. ~[facility] discussed potential benefit of counseling and supports. Patient is willing to reconsider meeting with a provider at another agency than she has in the past as she does not want all of the same services Last Documented On 1 2:40PM ; [facility] Discussed nutritional needs teach healthy choices including fruits and vegetables Last Documented On 1 3:21PM ; [facility] Patient education about a pr oper diet Last Documented On 1 3:21PM ; [facility] Patient education about a pr oper diet Last Documented On 1 4:08PM ; [facility] Patient education about meal planning Last Documented On 1 4:08PM ; [facility] Education about changing eat ing habits Last Documented On 1 4:08PM ; [facility] Patient education about high fiber diet Last Documented On 1 4:08PM ; [facility] Patient education about low fat diet Last Documented On 1 4:08PM ; [facility] Patient education about low cholesterol diet Last Documented On 1 4:08PM ; [facility] Patient education about low carbohydrate diet Last Documented On 1 4:08PM ; [facility] Patient education about high protein diet Last Documented On 1 4:08PM ; [facility] Discussed concerns about exe rcise : promote physical activity Last Documented On 1 3:21PM ; [facility] Patient education about a pr oper diet Last Documented On 0 1:48PM ; [facility] Patient education about meal planning Last Documented On 0 1:48PM ; [facility] Education about changing eat ing habits Last Documented On 0 1:48PM ; [facility] Patient education about high fiber diet Last Documented On 0 1:48PM ; [facility] Patient education about low fat diet Last Documented On 0 1:48PM ; [facility] Patient education about low cholesterol diet Last Documented On 0 1:48PM ; [facility] Patient education about low carbohydrate diet Last Documented On 0 1:48PM ; [facility] Patient education about high protein diet Last Documented On 0 1:48PM ; [facility] offered active and suppo rtive listening, normalized emotions and feelings, processed current stressors and explored coping and stress reducing skills. ~[facility] attempted to discuss sleep hygiene strategies with patient including meditation, reducing caffeine use, increaing physical activity during the day as tolerated, and engaging in calming activities. Patient states that she has tried many things in the past and nothing has been sucessful. ~ Last Documented On 0 8:21AM ; [facility] Work Phone: Instructions Includes: Instructions for all patient encounters Education and Decision Aids were provided during visit for: Discussed nutritional needs teach healthy choices including fruits and vegetables Last Documented On 4 2:28PM ; [facility] Patient education about a pr oper diet Last Documented On 4 2:28PM ; [facility] Discussed concerns about exe rcise : promote physical activity Last Documented On 4 2:28PM ; [facility] Not requesting contraception Last Documented On 4 2:28PM ; [facility] Discussed nutritional needs teach healthy choices including fruits and vegetables Last Documented On 3 2:01PM ; [facility] Patient education about a pr oper diet Last Documented On 3 2:01PM ; [facility] Discussed concerns about exe rcise : promote physical activity Last Documented On 3 2:01PM ; [facility] Discussed nutritional needs teach healthy choices including fruits and vegetables Last Documented On 3 10:41AM ; [facility] Patient education about a pr oper diet Last Documented On 3 10:41AM ; [facility] Discussed concerns about exe rcise : promote physical activity Last Documented On 3 10:41AM ; [facility] offered active and suppo rtive listening, normalized emotions and feelings, processed current stressors and explored coping and stress reducing skills. ~[facility] discussed coping skills to manage increased anxiety such as breathing techniques, mindfulness and meditation. [facility] discussed potential benefit in counseling and provided resource list. ~P discussed healthy lifestyle changes to implement Last Documented On 3 3:16PM ; [facility] Discussed nutritional needs teach healthy choices including fruits and vegetables Last Documented On 3 11:08AM ; [facility] Patient education about a pr oper diet Last Documented On 3 11:08AM ; [facility] Discussed concerns about exe rcise : promote physical activity Last Documented On 3 11:08AM ; [facility] Discussed nutritional needs teach healthy choices including fruits and vegetables Last Documented On 2 11:44AM ; [facility] Patient education about a pr oper diet Last Documented On 2 11:44AM ; [facility] Discussed concerns about exe rcise : promote physical activity Last Documented On 2 11:44AM ; [facility] Problems sleeping Last Documented On 2 9:03AM ; [facility] Discussed nutritional needs teach healthy choices including fruits and vegetables Last Documented On 2 8:19AM ; [facility] Patient education about a pr oper diet Last Documented On 2 8:19AM ; [facility] Discussed concerns about exe rcise : promote physical activity Last Documented On 2 8:19AM ; [facility] Discussed nutritional needs teach healthy choices including fruits and vegetables Last Documented On 2 11:56AM ; [facility] Patient education about a pr oper diet Last Documented On 2 11:56AM ; [facility] Discussed concerns about exe rcise : promote physical activity Last Documented On 2 11:56AM ; [facility] Discussed nutritional needs teach healthy choices including fruits and vegetables Last Documented On 2 12:03PM ; [facility] Patient education about a pr oper diet Last Documented On 2 12:03PM ; [facility] Discussed concerns about exe rcise : promote physical activity Last Documented On 2 12:03PM ; [facility] Discussed current self-care methods/coping skills. ~Validated and normalized pt's feelings while assisting patient process recent events. ~Encouraged ongoing counseling. ~Discussed lifestyle changes to address chronic illness. ~Supported patient's personal health goals Last Documented On 2 9:32PM ; [facility] Discussed nutritional needs teach healthy choices including fruits and vegetables Last Documented On 2 2:12PM ; [facility] Patient education about a pr oper diet Last Documented On 2 2:12PM ; [facility] Discussed concerns about exe rcise : promote physical activity Last Documented On 2 2:12PM ; [facility] Discussed nutritional needs teach healthy choices including fruits and vegetables Last Documented On 1 4:05PM ; [facility] Patient education about a pr oper diet Last Documented On 1 4:05PM ; [facility] Discussed concerns about exe rcise : promote physical activity Last Documented On 1 4:05PM ; [facility] Discussed nutritional needs teach healthy choices including fruits and vegetables Last Documented On 1 7:23PM ; [facility] Patient education about a pr oper diet Last Documented On 1 7:23PM ; [facility] Patient education about a pr oper diet Last Documented On 1 7:45PM ; [facility] Patient education about meal planning Last Documented On 1 7:45PM ; [facility] Education about changing eat ing habits Last Documented On 1 7:45PM ; [facility] Patient education about high fiber diet Last Documented On 1 7:45PM ; [facility] Patient education about low fat diet Last Documented On 1 7:45PM ; [facility] Patient education about low cholesterol diet Last Documented On 1 7:45PM ; [facility] Patient education about low carbohydrate diet Last Documented On 1 7:45PM ; [facility] Discussed concerns about exe rcise : promote physical activity Last Documented On 1 7:23PM ; [facility] Discussed nutritional needs teach healthy choices including fruits and vegetables Last Documented On 1 4:54PM ; [facility] Patient education about a pr oper diet Last Documented On 1 4:54PM ; [facility] Patient education about a pr oper diet Last Documented On 1 5:25PM ; [facility] Patient education about meal planning Last Documented On 1 5:25PM ; [facility] Education about changing eat ing habits Last Documented On 1 5:25PM ; [facility] Patient education about high fiber diet Last Documented On 1 5:25PM ; [facility] Patient education about low fat diet Last Documented On 1 5:25PM ; [facility] Patient education about low cholesterol diet Last Documented On 1 5:25PM ; [facility] Patient education about low carbohydrate diet Last Documented On 1 5:25PM ; [facility] Patient education about high protein diet Last Documented On 1 5:25PM ; [facility] Discussed concerns about exe rcise : promote physical activity Last Documented On 1 4:54PM ; [facility] provided active listenin g, support and helped patient process through current symptoms and stressors related to family conflict. [facility] discussed resources for housing and supports with patient. ~P discussed potential benefit of counseling and supports. Patient is willing to reconsider meeting with a provider at another agency than she has in the past as she does not want all of the same services Last Documented On 1 2:40PM ; [facility] Discussed nutritional needs teach healthy choices including fruits and vegetables Last Documented On 1 3:21PM ; [facility] Patient education about a pr oper diet Last Documented On 1 3:21PM ; [facility] Patient education about a pr oper diet Last Documented On 1 4:08PM ; [facility] Patient education about meal planning Last Documented On 1 4:08PM ; [facility] Education about changing eat ing habits Last Documented On 1 4:08PM ; [facility] Patient education about high fiber diet Last Documented On 1 4:08PM ; [facility] Patient education about low fat diet Last Documented On 1 4:08PM ; [facility] Patient education about low cholesterol diet Last Documented On 1 4:08PM ; [facility] Patient education about low carbohydrate diet Last Documented On 1 4:08PM ; [facility] Patient education about high protein diet Last Documented On 1 4:08PM ; [facility] Discussed concerns about exe rcise : promote physical activity Last Documented On 1 3:21PM ; [facility] Patient education about a pr oper diet Last Documented On 0 1:48PM ; [facility] Patient education about meal planning Last Documented On 0 1:48PM ; [facility] Education about changing eat ing habits Last Documented On 0 1:48PM ; [facility] Patient education about high fiber diet Last Documented On 0 1:48PM ; [facility] Patient education about low fat diet Last Documented On 0 1:48PM ; [facility] Patient education about low cholesterol diet Last Documented On 0 1:48PM ; [facility] Patient education about low carbohydrate diet Last Documented On 0 1:48PM ; [facility] Patient education about high protein diet Last Documented On 0 1:48PM ; [facility] offered active and suppo rtive [...] ~ Last Documented On 0 8:21AM ; [facility] Work Phone: Instructions Includes: Instructions for all patient encounters Education and Decision Aids were provided during visit for: Discussed nutritional needs teach healthy choices including fruits and vegetables Last Documented On 4 2:02PM ; [facility] Patient education about a pr oper diet Last Documented On 4 2:02PM ; [facility] Patient education about an a sthma action plan Last Documented On 4 2:13PM ; [facility] Discussed concerns about exe rcise : promote physical activity Last Documented On 4 2:02PM ; [facility] Discussed nutritional needs teach healthy choices including fruits and vegetables Last Documented On 4 8:36AM ; [facility] Patient education about a pr oper diet Last Documented On 4 8:36AM ; [facility] Discussed concerns about exe rcise : promote physical activity Last Documented On 4 8:36AM ; [facility] offered active and suppo rtive listening, normalized emotions and feelings, and processed current stressors. ~[facility] discussed coping skills to manage increased anxiety. ~[facility] discussed community resources and supports Last Documented On 4 1:56PM ; [facility] Discussed nutritional needs teach healthy choices including fruits and vegetables Last Documented On 4 2:28PM ; [facility] Patient education about a pr oper diet Last Documented On 4 2:28PM ; [facility] Discussed concerns about exe rcise : promote physical activity Last Documented On 4 2:28PM ; [facility] Not requesting contraception Last Documented On 4 2:28PM ; [facility] Discussed nutritional needs teach healthy choices including fruits and vegetables Last Documented On 3 2:01PM ; [facility] Patient education about a pr oper diet Last Documented On 3 2:01PM ; [facility] Discussed concerns about exe rcise : promote physical activity Last Documented On 3 2:01PM ; [facility] Discussed nutritional needs teach healthy choices including fruits and vegetables Last Documented On 3 10:41AM ; [facility] Patient education about a pr oper diet Last Documented On 3 10:41AM ; [facility] Discussed concerns about exe rcise : promote physical activity Last Documented On 3 10:41AM ; [facility] offered active and suppo rtive listening, normalized emotions and feelings, processed current stressors and explored coping and stress reducing skills. ~P discussed coping skills to manage increased anxiety such as breathing techniques, mindfulness and meditation. [facility] discussed potential benefit in counseling and provided resource list. ~[facility] discussed healthy lifestyle changes to implement Last Documented On 3 3:16PM ; [facility] Discussed nutritional needs teach healthy choices including fruits and vegetables Last Documented On 3 11:08AM ; [facility] Patient education about a pr oper diet Last Documented On 3 11:08AM ; [facility] Discussed concerns about exe rcise : promote physical activity Last Documented On 3 11:08AM ; [facility] Discussed nutritional needs teach healthy choices including fruits and vegetables Last Documented On 2 11:44AM ; [facility] Patient education about a pr oper diet Last Documented On 2 11:44AM ; [facility] Discussed concerns about exe rcise : promote physical activity Last Documented On 2 11:44AM ; [facility] Problems sleeping Last Documented On 2 9:03AM ; [facility] Discussed nutritional needs teach healthy choices including fruits and vegetables Last Documented On 2 8:19AM ; [facility] Patient education about a pr oper diet Last Documented On 2 8:19AM ; [facility] Discussed concerns about exe rcise : promote physical activity Last Documented On 2 8:19AM ; [facility] Discussed nutritional needs teach healthy choices including fruits and vegetables Last Documented On 2 11:56AM ; [facility] Patient education about a pr oper diet Last Documented On 2 11:56AM ; [facility] Discussed concerns about exe rcise : promote physical activity Last Documented On 2 11:56AM ; [facility] Discussed nutritional needs teach healthy choices including fruits and vegetables Last Documented On 2 12:03PM ; [facility] Patient education about a pr oper diet Last Documented On 2 12:03PM ; [facility] Discussed concerns about exe rcise : promote physical activity Last Documented On 2 12:03PM ; [facility] Discussed current self-care methods/coping skills. ~Validated and normalized pt's feelings while assisting patient process recent events. ~Encouraged ongoing counseling. ~Discussed lifestyle changes to address chronic illness. ~Supported patient's personal health goals Last Documented On 2 9:32PM ; [facility] Discussed nutritional needs teach healthy choices including fruits and vegetables Last Documented On 2 2:12PM ; [facility] Patient education about a pr oper diet Last Documented On 2 2:12PM ; [facility] Discussed concerns about exe rcise : promote physical activity Last Documented On 2 2:12PM ; [facility] Discussed nutritional needs teach healthy choices including fruits and vegetables Last Documented On 1 4:05PM ; [facility] Patient education about a pr oper diet Last Documented On 1 4:05PM ; [facility] Discussed concerns about exe rcise : promote physical activity Last Documented On 1 4:05PM ; [facility] Discussed nutritional needs teach healthy choices including fruits and vegetables Last Documented On 1 7:23PM ; [facility] Patient education about a pr oper diet Last Documented On 1 7:23PM ; [facility] Patient education about a pr oper diet Last Documented On 1 7:45PM ; [facility] Patient education about meal planning Last Documented On 1 7:45PM ; [facility] Education about changing eat ing habits Last Documented On 1 7:45PM ; [facility] Patient education about high fiber diet Last Documented On 1 7:45PM ; [facility] Patient education about low fat diet Last Documented On 1 7:45PM ; [facility] Patient education about low cholesterol diet Last Documented On 1 7:45PM ; [facility] Patient education about low carbohydrate diet Last Documented On 1 7:45PM ; [facility] Discussed concerns about exe rcise : promote physical activity Last Documented On 1 7:23PM ; [facility] Discussed nutritional needs teach healthy choices including fruits and vegetables Last Documented On 1 4:54PM ; [facility] Patient education about a pr oper diet Last Documented On 1 4:54PM ; [facility] Patient education about a pr oper diet Last Documented On 1 5:25PM ; [facility] Patient education about meal planning Last Documented On 1 5:25PM ; [facility] Education about changing eat ing habits Last Documented On 1 5:25PM ; [facility] Patient education about high fiber diet Last Documented On 1 5:25PM ; [facility] Patient education about low fat diet Last Documented On 1 5:25PM ; [facility] Patient education about low cholesterol diet Last Documented On 1 5:25PM ; [facility] Patient education about low carbohydrate diet Last Documented On 1 5:25PM ; [facility] Patient education about high protein diet Last Documented On 1 5:25PM ; [facility] Discussed concerns about exe rcise : promote physical activity Last Documented On 1 4:54PM ; [facility] provided active listenin g, support and helped patient process through current symptoms and stressors related to family conflict. [facility] discussed resources for housing and supports with patient. ~P discussed potential benefit of counseling and supports. Patient is willing to reconsider meeting with a provider at another agency than she has in the past as she does not want all of the same services Last Documented On 1 2:40PM ; [facility] Discussed nutritional needs teach healthy choices including fruits and vegetables Last Documented On 1 3:21PM ; [facility] Patient education about a pr oper diet Last Documented On 1 3:21PM ; [facility] Patient education about a pr oper diet Last Documented On 1 4:08PM ; [facility] Patient education about meal planning Last Documented On 1 4:08PM ; [facility] Education about changing eat ing habits Last Documented On 1 4:08PM ; [facility] Patient education about high fiber diet Last Documented On 1 4:08PM ; [facility] Patient education about low fat diet Last Documented On 1 4:08PM ; [facility] Patient education about low cholesterol diet Last Documented On 1 4:08PM ; [facility] Patient education about low carbohydrate diet Last Documented On 1 4:08PM ; [facility] Patient education about high protein diet Last Documented On 1 4:08PM ; [facility] Discussed concerns about exe rcise : promote physical activity Last Documented On 1 3:21PM ; [facility] Patient education about a pr oper diet Last Documented On 0 1:48PM ; [facility] Patient education about meal planning Last Documented On 0 1:48PM ; [facility] Education about changing eat ing habits Last Documented On 0 1:48PM ; [facility] Patient education about high fiber diet Last Documented On 0 1:48PM ; [facility] Patient education about low fat diet Last Documented On 0 1:48PM ; [facility] Patient education about low cholesterol diet Last Documented On 0 1:48PM ; [facility] Patient education about low carbohydrate diet Last Documented On 0 1:48PM ; [facility] Patient education about high protein diet Last Documented On 0 1:48PM ; [facility] offered active and suppo rtive listening, [...] ~ Last Documented On 0 8:21AM ; [facility] Work Phone: Instructions Includes: Instructions for all patient encounters Education and Decision Aids were provided during visit for: Discussed nutritional needs teach healthy choices including fruits and vegetables Last Documented On 4 2:02PM ; [facility] Patient education about a pr oper diet Last Documented On 4 2:02PM ; [facility] Patient education about an a sthma action plan Last Documented On 4 2:13PM ; [facility] Discussed concerns about exe rcise : promote physical activity Last Documented On 4 2:02PM ; [facility] Discussed nutritional needs teach healthy choices including fruits and vegetables Last Documented On 4 8:36AM ; [facility] Patient education about a pr oper diet Last Documented On 4 8:36AM ; [facility] Discussed concerns about exe rcise : promote physical activity Last Documented On 4 8:36AM ; [facility] offered active and suppo rtive listening, normalized emotions and feelings, and processed current stressors. ~[facility] discussed coping skills to manage increased anxiety. ~[facility] discussed community resources and supports Last Documented On 4 1:56PM ; [facility] Discussed nutritional needs teach healthy choices including fruits and vegetables Last Documented On 4 2:28PM ; [facility] Patient education about a pr oper diet Last Documented On 4 2:28PM ; [facility] Discussed concerns about exe rcise : promote physical activity Last Documented On 4 2:28PM ; [facility] Not requesting contraception Last Documented On 4 2:28PM ; [facility] Discussed nutritional needs teach healthy choices including fruits and vegetables Last Documented On 3 2:01PM ; [facility] Patient education about a pr oper diet Last Documented On 3 2:01PM ; [facility] Discussed concerns about exe rcise : promote physical activity Last Documented On 3 2:01PM ; [facility] Discussed nutritional needs teach healthy choices including fruits and vegetables Last Documented On 3 10:41AM ; [facility] Patient education about a pr oper diet Last Documented On 3 10:41AM ; [facility] Discussed concerns about exe rcise : promote physical activity Last Documented On 3 10:41AM ; [facility] offered active and suppo rtive listening, normalized emotions and feelings, processed current stressors and explored coping and stress reducing skills. ~P discussed coping skills to manage increased anxiety such as breathing techniques, mindfulness and meditation. [facility] discussed potential benefit in counseling and provided resource list. ~[facility] discussed healthy lifestyle changes to implement Last Documented On 3 3:16PM ; [facility] Discussed nutritional needs teach healthy choices including fruits and vegetables Last Documented On 3 11:08AM ; [facility] Patient education about a pr oper diet Last Documented On 3 11:08AM ; [facility] Discussed concerns about exe rcise : promote physical activity Last Documented On 3 11:08AM ; [facility] Discussed nutritional needs teach healthy choices including fruits and vegetables Last Documented On 2 11:44AM ; [facility] Patient education about a pr oper diet Last Documented On 2 11:44AM ; [facility] Discussed concerns about exe rcise : promote physical activity Last Documented On 2 11:44AM ; [facility] Problems sleeping Last Documented On 2 9:03AM ; [facility] Discussed nutritional needs teach healthy choices including fruits and vegetables Last Documented On 2 8:19AM ; [facility] Patient education about a pr oper diet Last Documented On 2 8:19AM ; [facility] Discussed concerns about exe rcise : promote physical activity Last Documented On 2 8:19AM ; [facility] Discussed nutritional needs teach healthy choices including fruits and vegetables Last Documented On 2 11:56AM ; [facility] Patient education about a pr oper diet Last Documented On 2 11:56AM ; [facility] Discussed concerns about exe rcise : promote physical activity Last Documented On 2 11:56AM ; [facility] Discussed nutritional needs teach healthy choices including fruits and vegetables Last Documented On 2 12:03PM ; [facility] Patient education about a pr oper diet Last Documented On 2 12:03PM ; [facility] Discussed concerns about exe rcise : promote physical activity Last Documented On 2 12:03PM ; [facility] Discussed current self-care methods/coping skills. ~Validated and normalized pt's feelings while assisting patient process recent events. ~Encouraged ongoing counseling. ~Discussed lifestyle changes to address chronic illness. ~Supported patient's personal health goals Last Documented On 2 9:32PM ; [facility] Discussed nutritional needs teach healthy choices including fruits and vegetables Last Documented On 2 2:12PM ; [facility] Patient education about a pr oper diet Last Documented On 2 2:12PM ; [facility] Discussed concerns about exe rcise : promote physical activity Last Documented On 2 2:12PM ; [facility] Discussed nutritional needs teach healthy choices including fruits and vegetables Last Documented On 1 4:05PM ; [facility] Patient education about a pr oper diet Last Documented On 1 4:05PM ; [facility] Discussed concerns about exe rcise : promote physical activity Last Documented On 1 4:05PM ; [facility] Discussed nutritional needs teach healthy choices including fruits and vegetables Last Documented On 1 7:23PM ; [facility] Patient education about a pr oper diet Last Documented On 1 7:23PM ; [facility] Patient education about a pr oper diet Last Documented On 1 7:45PM ; [facility] Patient education about meal planning Last Documented On 1 7:45PM ; [facility] Education about changing eat ing habits Last Documented On 1 7:45PM ; [facility] Patient education about high fiber diet Last Documented On 1 7:45PM ; [facility] Patient education about low fat diet Last Documented On 1 7:45PM ; [facility] Patient education about low cholesterol diet Last Documented On 1 7:45PM ; [facility] Patient education about low carbohydrate diet Last Documented On 1 7:45PM ; [facility] Discussed concerns about exe rcise : promote physical activity Last Documented On 7:23PM ; [facility] Discussed nutritional needs teach healthy choices including fruits and vegetables Last Documented On 1 4:54PM ; [facility] Patient education about a pr oper diet Last Documented On 4:54PM ; [facility] Patient education about a pr oper diet Last Documented On 1 5:25PM ; [facility] Patient education about meal planning Last Documented On 1 5:25PM ; [facility] Education about changing eat ing habits Last Documented On 1 5:25PM ; [facility] Patient education about high fiber diet Last Documented On 1 5:25PM ; [facility] Patient education about low fat diet Last Documented On 5:25PM ; [facility] Patient education about low cholesterol diet Last Documented On 1 5:25PM ; [facility] Patient education about low carbohydrate diet Last Documented On 1 5:25PM ; [facility] Patient education about high protein diet Last Documented On 1 5:25PM ; [facility] Discussed concerns about exe rcise : promote physical activity Last Documented On 1 4:54PM ; [facility] provided active listenin g, support and helped patient process through current symptoms and stressors related to family conflict. [facility] discussed resources for housing and supports with patient. ~P discussed potential benefit of counseling and supports. Patient is willing to reconsider meeting with a provider at another agency than she has in the past as she does not want all of the same services Last Documented On 1 2:40PM ; [facility] Discussed nutritional needs teach healthy choices including fruits and vegetables Last Documented On 1 3:21PM ; [facility] Patient education about a pr oper diet Last Documented On 1 3:21PM ; [facility] Patient education about a pr oper diet Last Documented On 1 4:08PM ; [facility] Patient education about meal planning Last Documented On 1 4:08PM ; [facility] Education about changing eat ing habits Last Documented On 1 4:08PM ; [facility] Patient education about high fiber diet Last Documented On 1 4:08PM ; [facility] Patient education about low fat diet Last Documented On 1 4:08PM ; [facility] Patient education about low cholesterol diet Last Documented On 1 4:08PM ; [facility] Patient education about low carbohydrate diet Last Documented On 1 4:08PM ; [facility] Patient education about high protein diet Last Documented On 1 4:08PM ; [facility] Discussed concerns about exe rcise : promote physical activity Last Documented On 1 3:21PM ; [facility] Patient education about a pr oper diet Last Documented On 0 1:48PM ; [facility] Patient education about meal planning Last Documented On 0 1:48PM ; [facility] Education about changing eat ing habits Last Documented On 0 1:48PM ; [facility] Patient education about high fiber diet Last Documented On 0 1:48PM ; [facility] Patient education about low fat diet Last Documented On 0 1:48PM ; [facility] Patient education about low cholesterol diet Last Documented On 0 1:48PM ; [facility] Patient education about low carbohydrate diet Last Documented On 0 1:48PM ; [facility] Patient education about high protein diet Last Documented On 0 1:48PM ; [facility] offered active and suppo rtive listening, normalized emotions and feelings, processed current stressors and explored coping and stress reducing skills. ~[facility] attempted to discuss sleep hygiene strategies with patient including meditation, reducing caffeine use, increaing physical activity during the day as tolerated, and engaging in calming activities. Patient states that she has tried many things in the past and nothing has been sucessful. ~ Last Documented On 0 8:21AM ; [facility] Work Phone: Instructions Includes: Instructions for all patient encounters Education and Decision Aids were provided during visit for: Discussed nutritional needs teach healthy choices including fruits and vegetables Last Documented On 4 8:58AM ; [facility] Patient education about a pr oper diet Last Documented On 4 8:58AM ; [facility] Discussed concerns about exe rcise : promote physical activity Last Documented On 4 8:58AM ; [facility] Discussed nutritional needs teach healthy choices including fruits and vegetables Last Documented On 4 2:02PM ; [facility] Patient education about a pr oper diet Last Documented On 4 2:02PM ; [facility] Patient education about an a sthma action plan Last Documented On 4 2:13PM ; [facility] Discussed concerns about exe rcise : promote physical activity Last Documented On 4 2:02PM ; [facility] Discussed nutritional needs teach healthy choices including fruits and vegetables Last Documented On 4 8:36AM ; [facility] Patient education about a pr oper diet Last Documented On 4 8:36AM ; [facility] Discussed concerns about exe rcise : promote physical activity Last Documented On 4 8:36AM ; [facility] offered active and suppo rtive listening, normalized emotions and feelings, and processed current stressors. ~[facility] discussed coping skills to manage increased anxiety. ~[facility] discussed community resources and supports Last Documented On 4 1:56PM ; [facility] Discussed nutritional needs teach healthy choices including fruits and vegetables Last Documented On 4 2:28PM ; [facility] Patient education about a pr oper diet Last Documented On 4 2:28PM ; [facility] Discussed concerns about exe rcise : promote physical activity Last Documented On 4 2:28PM ; [facility] Not requesting contraception Last Documented On 4 2:28PM ; [facility] Discussed nutritional needs teach healthy choices including fruits and vegetables Last Documented On 3 2:01PM ; [facility] Patient education about a pr oper diet Last Documented On 3 2:01PM ; [facility] Discussed concerns about exe rcise : promote physical activity Last Documented On 3 2:01PM ; [facility] Discussed nutritional needs teach healthy choices including fruits and vegetables Last Documented On 3 10:41AM ; [facility] Patient education about a pr oper diet Last Documented On 3 10:41AM ; [facility] Discussed concerns about exe rcise : promote physical activity Last Documented On 3 10:41AM ; [facility] offered active and suppo rtive listening, normalized emotions and feelings, processed current stressors and explored coping and stress reducing skills. ~[facility] discussed coping skills to manage increased anxiety such as breathing techniques, mindfulness and meditation. P discussed potential benefit in counseling and provided resource list. ~[facility] discussed healthy lifestyle changes to implement Last Documented On 3 3:16PM ; [facility] Discussed nutritional needs teach healthy choices including fruits and vegetables Last Documented On 3 11:08AM ; [facility] Patient education about a pr oper diet Last Documented On 3 11:08AM ; [facility] Discussed concerns about exe rcise : promote physical activity Last Documented On 3 11:08AM ; [facility] Discussed nutritional needs teach healthy choices including fruits and vegetables Last Documented On 2 11:44AM ; [facility] Patient education about a pr oper diet Last Documented On 2 11:44AM ; [facility] Discussed concerns about exe rcise : promote physical activity Last Documented On 2 11:44AM ; [facility] Problems sleeping Last Documented On 2 9:03AM ; [facility] Discussed nutritional needs teach healthy choices including fruits and vegetables Last Documented On 2 8:19AM ; [facility] Patient education about a pr oper diet Last Documented On 2 8:19AM ; [facility] Discussed concerns about exe rcise : promote physical activity Last Documented On 2 8:19AM ; [facility] Discussed nutritional needs teach healthy choices including fruits and vegetables Last Documented On 2 11:56AM ; [facility] Patient education about a pr oper diet Last Documented On 2 11:56AM ; [facility] Discussed concerns about exe rcise : promote physical activity Last Documented On 2 11:56AM ; [facility] Discussed nutritional needs teach healthy choices including fruits and vegetables Last Documented On 2 12:03PM ; [facility] Patient education about a pr oper diet Last Documented On 2 12:03PM ; [facility] Discussed concerns about exe rcise : promote physical activity Last Documented On 2 12:03PM ; [facility] Discussed current self-care methods/coping skills. ~Validated and normalized pt's feelings while assisting patient process recent events. ~Encouraged ongoing counseling. ~Discussed lifestyle changes to address chronic illness. ~Supported patient's personal health goals Last Documented On 2 9:32PM ; [facility] Discussed nutritional needs teach healthy choices including fruits and vegetables Last Documented On 2 2:12PM ; [facility] Patient education about a pr oper diet Last Documented On 2 2:12PM ; [facility] Discussed concerns about exe rcise : promote physical activity Last Documented On 2 2:12PM ; [facility] Discussed nutritional needs teach healthy choices including fruits and vegetables Last Documented On 1 4:05PM ; [facility] Patient education about a pr oper diet Last Documented On 1 4:05PM ; [facility] Discussed concerns about exe rcise : promote physical activity Last Documented On 1 4:05PM ; [facility] Discussed nutritional needs teach healthy choices including fruits and vegetables Last Documented On 1 7:23PM ; [facility] Patient education about a pr oper diet Last Documented On 1 7:23PM ; [facility] Patient education about a pr oper diet Last Documented On 1 7:45PM ; [facility] Patient education about meal planning Last Documented On 1 7:45PM ; [facility] Education about changing eat ing habits Last Documented On 1 7:45PM ; [facility] Patient education about high fiber diet Last Documented On 1 7:45PM ; [facility] Patient education about low fat diet Last Documented On 1 7:45PM ; [facility] Patient education about low cholesterol diet Last Documented On 1 7:45PM ; [facility] Patient education about low carbohydrate diet Last Documented On 1 7:45PM ; [facility] Discussed concerns about exe rcise : promote physical activity Last Documented On 1 7:23PM ; [facility] Discussed nutritional needs teach healthy choices including fruits and vegetables Last Documented On 1 4:54PM ; [facility] Patient education about a pr oper diet Last Documented On 1 4:54PM ; [facility] Patient education about a pr oper diet Last Documented On 1 5:25PM ; [facility] Patient education about meal planning Last Documented On 1 5:25PM ; [facility] Education about changing eat ing habits Last Documented On 1 5:25PM ; [facility] Patient education about high fiber diet Last Documented On 1 5:25PM ; [facility] Patient education about low fat diet Last Documented On 1 5:25PM ; [facility] Patient education about low cholesterol diet Last Documented On 1 5:25PM ; [facility] Patient education about low carbohydrate diet Last Documented On 1 5:25PM ; [facility] Patient education about high protein diet Last Documented On 1 5:25PM ; [facility] Discussed concerns about exe rcise : promote physical activity Last Documented On 1 4:54PM ; [facility] provided active listenin g, support and helped patient process through current symptoms and stressors related to family conflict. [facility] discussed resources for housing and supports with patient. ~P discussed potential benefit of counseling and supports. Patient is willing to reconsider meeting with a provider at another agency than she has in the past as she does not want all of the same services Last Documented On 1 2:40PM ; [facility] Discussed nutritional needs teach healthy choices including fruits and vegetables Last Documented On 1 3:21PM ; [facility] Patient education about a pr oper diet Last Documented On 1 3:21PM ; [facility] Patient education about a pr oper diet Last Documented On 1 4:08PM ; [facility] Patient education about meal planning Last Documented On 1 4:08PM ; [facility] Education about changing eat ing habits Last Documented On 1 4:08PM ; [facility] Patient education about high fiber diet Last Documented On 1 4:08PM ; [facility] Patient education about low fat diet Last Documented On 1 4:08PM ; [facility] Patient education about low cholesterol diet Last Documented On 1 4:08PM ; [facility] Patient education about low carbohydrate diet Last Documented On 1 4:08PM ; [facility] Patient education about high protein diet Last Documented On 1 4:08PM ; [facility] Discussed concerns about exe rcise : promote physical activity Last Documented On 1 3:21PM ; [facility] Patient education about a pr oper diet Last Documented On 0 1:48PM ; [facility] Patient education about meal planning Last Documented On 0 1:48PM ; [facility] Education about changing eat ing habits Last Documented On 0 1:48PM ; [facility] Patient education about high fiber diet Last Documented On 0 1:48PM ; [facility] Patient education about low fat diet Last Documented On 0 1:48PM ; [facility] Patient education about low cholesterol diet Last Documented On 0 1:48PM ; [facility] Patient education about low carbohydrate diet Last Documented On 0 1:48PM ; [facility] Patient education about high protein diet Last Documented On 0 1:48PM ; [facility] offered active and suppo rtive listening, normalized emotions and feelings, processed current stressors and explored coping and stress reducing skills. ~[facility] attempted to discuss sleep hygiene strategies with patient including meditation, reducing caffeine use, increaing physical activity during the day as tolerated, and engaging in calming activities. Patient states that she has tried many things in the past and nothing has been sucessful. ~ Last Documented On 0 8:21AM ; [facility] Work Phone: Instructions Includes: Instructions for all patient encounters Education and Decision Aids were provided during visit for: [facility] offered active and suppo rtive listening, normalized emotions and feelings related to grief and loss, and processed current stressors related to navigating challenges with family members and planning her sisters . ~[facility] discussed importane of coping skills and supports. ~[facility] encouraged patient to follow-up with counseling resources. [facility] discussed grief support groups that patient can reach out to for additional support as she is establishing with counseling Last Documented On 4 12:10PM ; [facility] Discussed nutritional needs teach healthy choices including fruits and vegetables Last Documented On 4 8:58AM ; [facility] Patient education about a pr oper diet Last Documented On 4 8:58AM ; [facility] Discussed concerns about exe rcise : promote physical activity Last Documented On 4 8:58AM ; [facility] Discussed nutritional needs teach healthy choices including fruits and vegetables Last Documented On 4 2:02PM ; [facility] Patient education about a pr oper diet Last Documented On 4 2:02PM ; [facility] Patient education about an a sthma action plan Last Documented On 4 2:13PM ; [facility] Discussed concerns about exe rcise : promote physical activity Last Documented On 4 2:02PM ; [facility] Discussed nutritional needs teach healthy choices including fruits and vegetables Last Documented On 4 8:36AM ; [facility] Patient education about a pr oper diet Last Documented On 4 8:36AM ; [facility] Discussed concerns about exe rcise : promote physical activity Last Documented On 4 8:36AM ; [facility] offered active and suppo rtive listening, normalized emotions and feelings, and processed current stressors. ~[facility] discussed coping skills to manage increased anxiety. ~[facility] discussed community resources and supports Last Documented On 4 1:56PM ; [facility] Discussed nutritional needs teach healthy choices including fruits and vegetables Last Documented On 4 2:28PM ; [facility] Patient education about a pr oper diet Last Documented On 4 2:28PM ; [facility] Discussed concerns about exe rcise : promote physical activity Last Documented On 4 2:28PM ; [facility] Not requesting contraception Last Documented On 4 2:28PM ; [facility] Discussed nutritional needs teach healthy choices including fruits and vegetables Last Documented On 3 2:01PM ; [facility] Patient education about a pr oper diet Last Documented On 3 2:01PM ; [facility] Discussed concerns about exe rcise : promote physical activity Last Documented On 3 2:01PM ; [facility] Discussed nutritional needs teach healthy choices including fruits and vegetables Last Documented On 3 10:41AM ; [facility] Patient education about a pr oper diet Last Documented On 3 10:41AM ; [facility] Discussed concerns about exe rcise : promote physical activity Last Documented On 3 10:41AM ; [facility] active and suppo rtive listening, normalized emotions and feelings, processed current stressors and explored coping and stress reducing skills. ~P discussed coping skills to manage increased anxiety such as breathing techniques, mindfulness and meditation. [facility] discussed potential benefit in counseling and provided resource list. ~[facility] discussed healthy lifestyle changes to implement Last Documented On 3 3:16PM ; [facility] Discussed nutritional needs teach healthy choices including fruits and vegetables Last Documented On 3 11:08AM ; [facility] Patient education about a pr oper diet Last Documented On 3 11:08AM ; [facility] Discussed concerns about exe rcise : promote physical activity Last Documented On 3 11:08AM ; [facility] Discussed nutritional needs teach healthy choices including fruits and vegetables Last Documented On 2 11:44AM ; [facility] Patient education about a pr oper diet Last Documented On 2 11:44AM ; [facility] Discussed concerns about exe rcise : promote physical activity Last Documented On 2 11:44AM ; [facility] Problems sleeping Last Documented On 2 9:03AM ; [facility] Discussed nutritional needs teach healthy choices including fruits and vegetables Last Documented On 2 8:19AM ; [facility] Patient education about a pr oper diet Last Documented On 2 8:19AM ; [facility] Discussed concerns about exe rcise : promote physical activity Last Documented On 2 8:19AM ; [facility] Discussed nutritional needs teach healthy choices including fruits and vegetables Last Documented On 2 11:56AM ; [facility] Patient education about a pr oper diet Last Documented On 2 11:56AM ; [facility] Discussed concerns about exe rcise : promote physical activity Last Documented On 2 11:56AM ; [facility] Discussed nutritional needs teach healthy choices including fruits and vegetables Last Documented On 2 12:03PM ; [facility] Patient education about a pr oper diet Last Documented On 2 12:03PM ; [facility] Discussed concerns about exe rcise : promote physical activity Last Documented On 2 12:03PM ; [facility] Discussed current self-care methods/coping skills. ~Validated and normalized pt's feelings while assisting patient process recent events. ~Encouraged ongoing counseling. ~Discussed lifestyle changes to address chronic illness. ~Supported patient's personal health goals Last Documented On 2 9:32PM ; [facility] Discussed nutritional needs teach healthy choices including fruits and vegetables Last Documented On 2 2:12PM ; [facility] Patient education about a pr oper diet Last Documented On 2 2:12PM ; [facility] Discussed concerns about exe rcise : promote physical activity Last Documented On 2 2:12PM ; [facility] Discussed nutritional needs teach healthy choices including fruits and vegetables Last Documented On 1 4:05PM ; [facility] Patient education about a pr oper diet Last Documented On 1 4:05PM ; [facility] Discussed concerns about exe rcise : promote physical activity Last Documented On 1 4:05PM ; [facility] Discussed nutritional needs teach healthy choices including fruits and vegetables Last Documented On 1 7:23PM ; [facility] Patient education about a pr oper diet Last Documented On 1 7:23PM ; [facility] Patient education about a pr oper diet Last Documented On 1 7:45PM ; [facility] Patient education about meal planning Last Documented On 1 7:45PM ; [facility] Education about changing eat ing habits Last Documented On 1 7:45PM ; [facility] Patient education about high fiber diet Last Documented On 1 7:45PM ; [facility] Patient education about low fat diet Last Documented On 1 7:45PM ; [facility] Patient education about low cholesterol diet Last Documented On 1 7:45PM ; [facility] Patient education about low carbohydrate diet Last Documented On 1 7:45PM ; [facility] Discussed concerns about exe rcise : promote physical activity Last Documented On 1 7:23PM ; [facility] Discussed nutritional needs teach healthy choices including fruits and vegetables Last Documented On 1 4:54PM ; [facility] Patient education about a pr oper diet Last Documented On 1 4:54PM ; [facility] Patient education about a pr oper diet Last Documented On 1 5:25PM ; [facility] Patient education about meal planning Last Documented On 1 5:25PM ; [facility] Education about changing eat ing habits Last Documented On 1 5:25PM ; [facility] Patient education about high fiber diet Last Documented On 1 5:25PM ; [facility] Patient education about low fat diet Last Documented On 1 5:25PM ; [facility] Patient education about low cholesterol diet Last Documented On 1 5:25PM ; [facility] Patient education about low carbohydrate diet Last Documented On 1 5:25PM ; [facility] Patient education about high protein diet Last Documented On 1 5:25PM ; [facility] Discussed concerns about exe rcise : promote physical activity Last Documented On 1 4:54PM ; [facility] provided active listenin g, support and helped patient process through current symptoms and stressors related to family conflict. [facility] discussed resources for housing and supports with patient. ~P discussed potential benefit of counseling and supports. Patient is willing to reconsider meeting with a provider at another agency than she has in the past as she does not want all of the same services Last Documented On 1 2:40PM ; [facility] Discussed nutritional needs teach healthy choices including fruits and vegetables Last Documented On 1 3:21PM ; [facility] Patient education about a pr oper diet Last Documented On 1 3:21PM ; [facility] Patient education about a pr oper diet Last Documented On 1 4:08PM ; [facility] Patient education about meal planning Last Documented On 1 4:08PM ; [facility] Education about changing eat ing habits Last Documented On 1 4:08PM ; [facility] Patient education about high fiber diet Last Documented On 1 4:08PM ; [facility] Patient education about low fat diet Last Documented On 1 4:08PM ; [facility] Patient education about low cholesterol diet Last Documented On 1 4:08PM ; [facility] Patient education about low carbohydrate diet Last Documented On 1 4:08PM ; [facility] Patient education about high protein diet Last Documented On 1 4:08PM ; [facility] Discussed concerns about exe rcise : promote physical activity Last Documented On 1 3:21PM ; [facility] Patient education about a pr oper diet Last Documented On 0 1:48PM ; [facility] Patient education about meal planning Last Documented On 0 1:48PM ; [facility] Education about changing eat ing habits Last Documented On 0 1:48PM ; [facility] Patient education about high fiber diet Last Documented On 0 1:48PM ; [facility] Patient education about low fat diet Last Documented On 0 1:48PM ; [facility] Patient education about low cholesterol diet Last Documented On 0 1:48PM ; [facility] Patient education about low carbohydrate diet Last Documented On 0 1:48PM ; [facility] Patient education about high protein diet Last Documented On 0 1:48PM ; [facility] offered active and suppo rtive listening, [...] ~ Last Documented On 0 8:21AM ; [facility] Work Phone: Instructions Includes: Instructions for all patient encounters Education and Decision Aids were provided during visit for: Discussed nutritional needs teach healthy choices including fruits and vegetables Last Documented On 4 4:57PM ; [facility] Patient education about a pr oper diet Last Documented On 4 4:57PM ; [facility] Discussed concerns about exe rcise : promote physical activity Last Documented On 4 4:57PM ; [facility] offered active and suppo rtive listening, normalized emotions and feelings related to grief and loss, and processed current stressors related to navigating challenges with family members and planning her sisters . ~[facility] discussed importane of coping skills and supports. [facility] encouraged patient to follow-up with counseling resources. [facility] discussed grief support groups that patient can reach out to for additional support as she is establishing with counseling Last Documented On 4 12:10PM ; [facility] Discussed nutritional needs teach healthy choices including fruits and vegetables Last Documented On 4 8:58AM ; [facility] Patient education about a pr oper diet Last Documented On 4 8:58AM ; [facility] Discussed concerns about exe rcise : promote physical activity Last Documented On 4 8:58AM ; [facility] Discussed nutritional needs teach healthy choices including fruits and vegetables Last Documented On 4 2:02PM ; [facility] Patient education about a pr oper diet Last Documented On 4 2:02PM ; [facility] Patient education about an a sthma action plan Last Documented On 4 2:13PM ; [facility] Discussed concerns about exe rcise : promote physical activity Last Documented On 4 2:02PM ; [facility] Discussed nutritional needs teach healthy choices including fruits and vegetables Last Documented On 4 8:36AM ; [facility] Patient education about a pr oper diet Last Documented On 4 8:36AM ; [facility] Discussed concerns about exe rcise : promote physical activity Last Documented On 4 8:36AM ; [facility] offered active and suppo rtive listening, normalized emotions and feelings, and processed current stressors. ~[facility] discussed coping skills to manage increased anxiety. ~[facility] discussed community resources and supports Last Documented On 4 1:56PM ; [facility] Discussed nutritional needs teach healthy choices including fruits and vegetables Last Documented On 4 2:28PM ; [facility] Patient education about a pr oper diet Last Documented On 4 2:28PM ; [facility] Discussed concerns about exe rcise : promote physical activity Last Documented On 4 2:28PM ; [facility] Not requesting contraception Last Documented On 4 2:28PM ; [facility] Discussed nutritional needs teach healthy choices including fruits and vegetables Last Documented On 3 2:01PM ; [facility] Patient education about a pr oper diet Last Documented On 3 2:01PM ; [facility] Discussed concerns about exe rcise : promote physical activity Last Documented On 3 2:01PM ; [facility] Discussed nutritional needs teach healthy choices including fruits and vegetables Last Documented On 3 10:41AM ; [facility] Patient education about a pr oper diet Last Documented On 3 10:41AM ; [facility] Discussed concerns about exe rcise : promote physical activity Last Documented On 3 10:41AM ; [facility] offered active and suppo rtive listening, normalized emotions and feelings, processed current stressors and explored coping and stress reducing skills. ~[facility] discussed coping skills to manage increased anxiety such as breathing techniques, mindfulness and meditation. [facility] discussed potential benefit in counseling and provided resource list. ~[facility] discussed healthy lifestyle changes to implement Last Documented On 3 3:16PM ; [facility] Discussed nutritional needs teach healthy choices including fruits and vegetables Last Documented On 3 11:08AM ; [facility] Patient education about a pr oper diet Last Documented On 3 11:08AM ; [facility] Discussed concerns about exe rcise : promote physical activity Last Documented On 3 11:08AM ; [facility] Discussed nutritional needs teach healthy choices including fruits and vegetables Last Documented On 2 11:44AM ; [facility] Patient education about a pr oper diet Last Documented On 2 11:44AM ; [facility] Discussed concerns about exe rcise : promote physical activity Last Documented On 2 11:44AM ; [facility] Problems sleeping Last Documented On 2 9:03AM ; [facility] Discussed nutritional needs teach healthy choices including fruits and vegetables Last Documented On 2 8:19AM ; [facility] Patient education about a pr oper diet Last Documented On 2 8:19AM ; [facility] Discussed concerns about exe rcise : promote physical activity Last Documented On 2 8:19AM ; [facility] Discussed nutritional needs teach healthy choices including fruits and vegetables Last Documented On 2 11:56AM ; [facility] Patient education about a pr oper diet Last Documented On 2 11:56AM ; [facility] Discussed concerns about exe rcise : promote physical activity Last Documented On 2 11:56AM ; [facility] Discussed nutritional needs teach healthy choices including fruits and vegetables Last Documented On 2 12:03PM ; [facility] Patient education about a pr oper diet Last Documented On 2 12:03PM ; [facility] Discussed concerns about exe rcise : promote physical activity Last Documented On 2 12:03PM ; [facility] Discussed current self-care methods/coping skills. ~Validated and normalized pt's feelings while assisting patient process recent events. ~Encouraged ongoing counseling. ~Discussed lifestyle changes to address chronic illness. ~Supported patient's personal health goals Last Documented On 2 9:32PM ; [facility] Discussed nutritional needs teach healthy choices including fruits and vegetables Last Documented On 2 2:12PM ; [facility] Patient education about a pr oper diet Last Documented On 2 2:12PM ; [facility] Discussed concerns about exe rcise : promote physical activity Last Documented On 2 2:12PM ; [facility] Discussed nutritional needs teach healthy choices including fruits and vegetables Last Documented On 1 4:05PM ; [facility] Patient education about a pr oper diet Last Documented On 1 4:05PM ; [facility] Discussed concerns about exe rcise : promote physical activity Last Documented On 1 4:05PM ; [facility] Discussed nutritional needs teach healthy choices including fruits and vegetables Last Documented On 1 7:23PM ; [facility] Patient education about a pr oper diet Last Documented On 1 7:23PM ; [facility] Patient education about a pr oper diet Last Documented On 1 7:45PM ; [facility] Patient education about meal planning Last Documented On 1 7:45PM ; [facility] Education about changing eat ing habits Last Documented On 1 7:45PM ; [facility] Patient education about high fiber diet Last Documented On 1 7:45PM ; [facility] Patient education about low fat diet Last Documented On 1 7:45PM ; [facility] Patient education about low cholesterol diet Last Documented On 1 7:45PM ; [facility] Patient education about low carbohydrate diet Last Documented On 1 7:45PM ; [facility] Discussed concerns about exe rcise : promote physical activity Last Documented On 1 7:23PM ; [facility] Discussed nutritional needs teach healthy choices including fruits and vegetables Last Documented On 1 4:54PM ; [facility] Patient education about a pr oper diet Last Documented On 1 4:54PM ; [facility] Patient education about a pr oper diet Last Documented On 1 5:25PM ; [facility] Patient education about meal planning Last Documented On 1 5:25PM ; [facility] Education about changing eat ing habits Last Documented On 1 5:25PM ; [facility] Patient education about high fiber diet Last Documented On 1 5:25PM ; [facility] Patient education about low fat diet Last Documented On 1 5:25PM ; [facility] Patient education about low cholesterol diet Last Documented On 1 5:25PM ; [facility] Patient education about low carbohydrate diet Last Documented On 1 5:25PM ; [facility] Patient education about high protein diet Last Documented On 1 5:25PM ; [facility] Discussed concerns about exe rcise : promote physical activity Last Documented On 1 4:54PM ; [facility] BHP provided active listenin g, support and helped patient process through current symptoms and stressors related to family conflict. BHP/HEALTH ECONOMIST discussed resources for housing and supports with patient. ~P discussed potential benefit of counseling and supports. Patient is willing to reconsider meeting with a provider at another agency than she has in the past as she does not want all of the same services Last Documented On 1 2:40PM ; [facility] Discussed nutritional needs teach healthy choices including fruits and vegetables Last Documented On 1 3:21PM ; [facility] Patient education about a pr oper diet Last Documented On 1 3:21PM ; [facility] Patient education about a pr oper diet Last Documented On 1 4:08PM ; [facility] Patient education about meal planning Last Documented On 1 4:08PM ; [facility] Education about changing eat ing habits Last Documented On 1 4:08PM ; [facility] Patient education about high fiber diet Last Documented On 1 4:08PM ; [facility] Patient education about low fat diet Last Documented On 1 4:08PM ; [facility] Patient education about low cholesterol diet Last Documented On 1 4:08PM ; [facility] Patient education about low carbohydrate diet Last Documented On 1 4:08PM ; [facility] Patient education about high protein diet Last Documented On 1 4:08PM ; [facility] Discussed concerns about exe rcise : promote physical activity Last Documented On 1 3:21PM ; [facility] Patient education about a pr oper diet Last Documented On 0 1:48PM ; [facility] Patient education about meal planning Last Documented On 0 1:48PM ; [facility] Education about changing eat ing habits Last Documented On 0 1:48PM ; [facility] Patient education about high fiber diet Last Documented On 0 1:48PM ; [facility] Patient education about low fat diet Last Documented On 0 1:48PM ; [facility] Patient education about low cholesterol diet Last Documented On 0 1:48PM ; [facility] Patient education about low carbohydrate diet Last Documented On 0 1:48PM ; [facility] Patient education about high protein diet Last Documented On 0 1:48PM ; [facility] BHP offered active and suppo rtive listening, normalized emotions and feelings, processed current stressors and explored coping and stress reducing skills. ~[facility] attempted to discuss sleep hygiene strategies with patient including meditation, reducing caffeine use, increaing physical activity during the day as tolerated, and engaging in calming activities. Patient states that she has tried many things in the past and nothing has been sucessful. ~ Last Documented On 0 8:21AM ; [facility] Work Phone: Patient problem outcome Narrative Includes: Evaluations & Outcomes for active Goals [facility] Work Phone: reason for referral (narrative)No [facility] Work [facility]: reason for visit Narrative* Auth/Cert Specialty Diagnoses / Procedures Referred By Contac t Referred To Contact Diagnoses Chronic RLQ pain RLQ PAIN Procedures [place] REMOVAL OF OVARY(S) OOPHORECTOMY LAPAROSCOPIC-POSSIBLE LAPAROTOMY Geoff Chu MD [address] [address] [employer] [address] [place] [address] Referral ID Status Reason Start Date Expiration Date Visits Re quested Visits Authorized [id number] 1 1 [facility] Phone: reason for visit Narrative* Auth/Cert Specialty Diagnoses / Procedures Referred By [facility] Referred To Contact [employer] [address] [place] [address] Referral ID Status Reason Start Date Expiration Date Visits Re quested Visits Authorized [id number] 1 1 [facility] Phone: reason for visit Narrative* Treatment Plan and Therapy Plan (Routine) - Open Specialty Diagnoses / Procedures Referred By [facility] Referred To Contact Diagnoses Dog bite, initial encounter Nasreen Pennington PA-C [address] [place] [address] [facility] [address] [place] [address] Referral ID Status Reason Start Date Expiration Date Visits Re quested Visits Authorized [id number] Open 03/11/2023 03/10/2024 1 1 KURTIS MEJIA Abeelo [facility] Narrative - Reported Review of Systems not supported for this document type No Review of Systems [facility] Work Phone: History of Past Illness Name [...] Findings Encounter Date Anxiety disorder NOS Telebehavioral [facility] Oliva Short LISWS 10/20/2019 [facility]2019 Diagnosis Stroke-like [...] Telemedicine Establi sted Patient with Ena Fung [employer]PERVIS[employer] 05/02/2020 Exposure to a viral disease Telemedicine Establisted Patient with Ena Fung [employer] 05/02/2020 Obesity due to excess calories Telemedic [facility] Establisted Patient with Ena Fung [employer]PER[employer] 05/02/2020 Anxiety disorder NOS [facility] ealt with Oliva Short LISWS 10/20/2019 Depressive disorder Telebehavioral He alth with Oliva Short LISWS 10/20/2019 Findings Encounter Date Exposure to a viral disease Telemedicine Establisted Patient with Tao Reece SUPERVIS[employer]ING 06/04/2020 Exposure to biological agent suspected Telemedicine Establisted Patient with Tao Reece [employer] 06/04/2020 Body mass index Telemedicine Establi sted Patient with Ena Fung [employer] 05/02/2020 Exposure to a viral disease Telemedicine Establisted Patient with Ena Fung [employer] 05/02/2020 Obesity due to excess calories Telemedic ine Establisted Patient with Ena Fung [employer] 05/02/2020 Anxiety disorder NOS Telebehavioral H ealth with Oliva Short LISWS 10/20/2019 Depressive disorder Telebehavioral He alth with Oliva Short LISWS 10/20/2019 Diagnosis Chest pain, unspecified type Diagnosis Atypical chest pain Other chest pain Palpitations ASHD (arteriosclerotic heart disease) Coronary atherosclerosis of unspecified type of vessel, [place] or graft S/P PTCA (percutaneous transluminal coronary angioplasty) Postsurgical percutaneous transluminal coronary angioplasty status Essential hypertension Unspecified essential hypertension Family history of premature CAD Family history of ischemic heart disease Tobacco abuse counseling Counseling on substance use and abuse Mixed hyperlipidemia MTAT (obstructive sleep apnea) Obstructive sleep apnea (adult) (pediatric) Obesity (BMI 30.0-34.9) Obesity, unspecified Diagnosis Atypical chest pain Other chest pain Palpitations ASHD (arteriosclerotic heart disease) Coronary atherosclerosis of unspecified type of vessel, [place] or graft S/P PTCA (percutaneous transluminal coronary [...] 09/04/2020 Medical Established Patient with Ena Fung [facility] 09/04/2020 Obesity due to excess calories Medical E stablished Patient with Ena Fung [facility] 09/04/2020 Z68.34 - Body mass index [BM I] 34.0-34.9, adult Medical Established Patient with Ena Fung [facility] 09/04/2020 Exposure to a viral disease Telemedicine Establisted Patient with Tao Reece [facility] 06/04/2020 Exposure to biological agent suspected Telemedicine Establisted Patient with Tao Reece [facility] 06/04/2020 Body mass index Telemedicine Establi sted Patient with Ena Fung [facility] 05/02/2020 Exposure to a viral disease Telemedicine Establisted Patient with Ena Fung [facility] 05/02/2020 Obesity due to excess calories Telemedic ine Establisted Patient with Ena Fung [facility] 05/02/2020 Anxiety disorder NOS BH Telebehavioral H ealth with Oliva Short LISWS 10/20/2019 Depressive disorder BH Telebehavioral He alth with Oliva Short LISWS 10/20/2019 Diagnosis Pre-op testing Preoperative examination, unspecified Diagnosis Right sided abdominal pain Abdominal pain, unspecified site Diagnosis Preoperative testing Preoperative examination, unspecified Advance Directives Documents on File Type Date Recorded Patient Coal Feeder Operator Expl anation Advance Directives and Living Will Power of Chef Saucier Latest Code Status on File Code Status [...] Documents on File Type Date Recorded Patient Coal Feeder Operator Expl anation Advance Directives and Living Will Power of Chef Saucier Latest Code Status on File Code Status [...] Documents on File Type Date Recorded Patient Coal Feeder Operator Expl anation ACP-Advance Directive ACP-Power of Chef Saucier Documents on File Type Date Recorded Patient Coal Feeder Operator Expl anation ACP-Advance Directive ACP-Power of Chef Saucier Latest Code Status on File Code Status [...] 10/23/2021 11:43 AM Directive Pat Aware Third Alliance Party Effective Date Reviewed Sta tus Advance Care [...] Layo Gardner Child Primary Decision Maker [phone] (Home) Latest Code Status on File Code [...] Layo Gardner Child Primary Decision Maker [phone] (Home) Latest Code Status on File Code [...] Layo Gardner Child Primary Decision Maker [phone] (Home) Healthcare Agents on File Name Relationship [...] sent through Care Everywhere. * Migraine Headache (Syrian) * Migraine Headache: Recurring (Syrian) documented in this encounter* Instructions* Mariana Adames, [...] through Care Everywhere. * Nausea and Vomiting (Syrian) documented in this encounter* Attachments The following attachments cannot be sent through Care Everywhere. * BPPV (Benign Paroxysmal Positional Vertigo) (Syrian) documented in this encounter* Attachments The following attachments cannot be sent through Care Everywhere. * PCI (PERCUTANEOUS CORONARY INTERVENTION): POST-OP (ZAMBIAN) documented in this encounter* Instructions* Jose Juan Ortega APRN - CNP - 04/28/2020 Return to the emergency department for worsening symptoms. Follow-up with your primary care provider for suture removal and 7 to 10 days. * Attachments The following attachments cannot be sent through Care Everywhere. * Lacerations: Stitches (Syrian) documented in this encounter* Instructions* Jose Juan Ortega APRN - CNP - 06/17/2020 Return to the emergency department for worsening symptoms. Follow-up with your primary care provider. * Attachments The following attachments cannot be sent through Care Everywhere. * Chest Pain (Syrian) documented in this encounter* Discharge Instr - [...] most local grocery stores, pharmacies, and chain [employer]-stores. ? If you have any questions about your diet or nutrition, call the hospital and ask for the dietitian. General diet * Attachments The following attachments cannot be sent through Care Everywhere. * Abdominal Pain (Syrian) documented in this encounter History of Present Illness * Blaire Shukla, 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 - SUPERVISOR DRILLING [employer] SHOOTING - 04/21/2019 8:39 AM EDT NEUROLOGY INPATIENT [...] who was admitted as a transfer from [facility] on 04/19/2019 with complaints of left-sided [...] vasculitis or fibromuscular dysplasia. On arrival to [facility] ED she also reported right [...] right radial approach/ Mikaela Webb/ Dr. Ronan Rordiguez CHOLECYSTECTOMY 2008 COLONOSCOPY 2011 history of polyps COLONOSCOPY 06/17/2017 HYSTERECTOMY MASTOID SURGERY [place] COLON CA SCRN NOT HI RSK IND N/A 06/17/2017 COLONOSCOPY performed by Johanne Sherman DO at [facility] OR SPINE SURGERY lower back UPPER GASTROINTESTINAL ENDOSCOPY N/A 12/03/2018 EGD ESOPHAGOGASTRODUODENOSCOPY performed by Matt Harris MD at [facility] OR Social History: Mike Sharif [...] 5.5 04/20/2019 LABMICR CANNOT BE CALCULATED 10/27/2014 [id number] 11/05/2016 Diagnostic data reviewed: CT HEAD [...] Lindsey MD - 04/21/2019 6:42 AM EDT [facility] Internal Medicine Teaching Residency Program Inpatient Daily Progress Note Patient: Mike Sharif Date of : 1975 Acct: [id number] Room: Admit date: 04/19/2019 Today's date: 04/21/19 [...] per the patient. She was brought to [facility] [place] head was done which was normal [...] Protonix PT/OT: Onboard Discharge Planning / SW: materials planning manager rKysten Lindsey MD Internal Medicine Resident, PGY-1 [facility]; [place], [place] 04/21/2019, 6:42 AM Associated attestation - [...] this chart was generated using voice recognition [employer]plet[employer] dictation software. Although every effort was made to ensure the accuracy of this automated baker pie, some errors in baker pie may have occurred. * Mary Jane Oconnor MD - 04/20/2019 8:32 AM EDT [facility] Neurology IN-PATIENT SERVICE [facility] Progress note Date: 04/20/2019 Patient name: Mike Sharif Date of admission: 04/19/2019 8:00 PM Account: [id number] Date of : 1975 PCP: EFFIE Garcia [...] The patient mentioned significant history of early [place] and stroke in family in early 30s [...] hyperlipidemia on Lipitor, family history of early [place] and stroke in early 30s, was transferred from [facility] for strokelike symptoms. She admitted to the [...] of polyps COLONOSCOPY 06/17/2017 HYSTERECTOMY MASTOID SURGERY [place] COLON CA SCRN NOT HI RSK IND N/A 06/17/2017 COLONOSCOPY performed by Johanne Sherman DO at [facility] OR SPINE SURGERY lower back UPPER GASTROINTESTINAL ENDOSCOPY N/A 12/03/2018 EGD ESOPHAGOGASTRODUODENOSCOPY performed by Matt Harris MD at [facility] OR Medications Prior to Admission: [...] tablet Take 54 mg by mouth daily [facility] pharmacy: Please dispense generic fenofibrate unless prescriber [...] ms QTc Calculation (Bazett) 443 ms P Harman 45 degrees R Harman -16 degrees T Harman -20 degrees Troponin Collection Time: 04/19/19 4:56 [...] ms QTc Calculation (Bazett) 430 ms P Harman 38 degrees R Harman -15 degrees T Harman 1 degrees CBC Auto Differential Collection Time: [...] 1.00 (L) 1.10 - 3.70 k/uL Absolute [place] # 0.11 0.10 - 1.20 k/uL Absolute [...] sent to Dr. Ena Fung, EFFIE - SUPERVISOR DRILLING [employer] SHOOTING Associated attestation - Terrence Lyle MD - [...] face arm and leg . 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 Head CT normal transferred to [facility] . CTA head and neck with [...] History of Present Illness Recorded* Tao Luciano, REHAB PHYSICIAN - 10/10/2019 10:53 AM EDT Speech Language Pathology Speech Language Pathology [facility] Cognitive Treatment Note Date: 10/10/2019 Patient [...] K29.00 Hematuria R31.9 Melena K92.1 Stable angina ([facility]) I20.8 Stroke-like symptoms R29.90 Right lower quadrant abdominal pain R10.31 TIA (transient ischemic attack) G45.9 Acute nonintractable headache R51 Paresthesias R20.2 Pain: 0/10 Cognitive Treatment Treatment time: [id number] Subjective: [x] Alert [x] Cooperative [] Confused [...] discharge. Treatment completed by: TAO LUCIANO M.A. CCC-REHAB PHYSICIAN * Scarlet Llanos, 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 - 10/10/2019 9:38 AM EDT Physical Therapy Facility/Department: [address] NEURO Daily Treatment Note NAME: Mike [...] Ambulation Assistance: Independent Transfer Assistance: Independent Active Manufacturing Engineer Paint: Yes Occupation: Unemployed Leisure & Hobbies: Maylin paintings Additional Comments: Pt amb at grocery without deficit, father in home has Parkinson's disease Objective Vision: Impaired Vision Exceptions: Wears glasses at all times(Pt c/o having difficulty looking to R this date, no major deficits noted by customs entry writer during func activities) Hearing: Within functional [...] Education & Training, Safety Education & Training [facility] Inpatient Daily Activity Raw Score: 21 (10/09/19 [...] 10/09/2019 2:35 PM EDT Physical Therapy Facility/Department: [address] Initial Assessment NAME: Mike Sharif : [...] Ambulation Assistance: Independent Transfer Assistance: Independent Active Manufacturing Engineer Paint: Yes Occupation: Unemployed Additional Comments: Pt amb [...] LOB with normal amb Distance: 200' Comments: COLOR PASTE MIXING SUPERVISOR Reyes for heel-toe stepping and high knee ambulation. Stairs/Curb Stairs?: No Balance Posture: Good Sitting - Static: Good Sitting - Dynamic: Good Standing - Static: Good;- Standing - Dynamic: Fair;+ Comments: no AD used, COLOR PASTE MIXING SUPERVISOR reyes for higher end dynamic standing balance [...] Restraints Initially in place: No AM-PAC Score [facility] Inpatient Mobility Raw Score : 22 (10/09/191433) [facility] Inpatient T-Scale Score : 53.28 (10/09/191433) Mobility Inpatient CMS 0-100% Score: 20.91 (10/09/191433) Mobility Inpatient [facility] G-Code Modifier : CJ (10/09/191433) Goals Short [...] Minutes Tani Brambila, PT * Cristina Roa, REHAB PHYSICIAN - 10/09/2019 1:19 PM EDT Speech Language Pathology Facility/Department: [address] [facility] Initial Speech/Language/Cognitive Assessment NAME: Mike [...] Further therapy recommended at discharge. Recommendations: Requires REHAB PHYSICIAN Intervention: Yes Duration/Frequency of Treatment: 3-5X Plan: [...] - 12/29/2019 9:20 AM EDT Call from [facility]. Clarification of transport needs and paperwork faxed. * Maggie Benavides RN - 12/29/2019 9:02 AM EDT Call placed to Mireille at [facility] lab, updated on transfer in progress, [facility] accepting. * Mena Ramirez RN - 12/29/2019 5:25 AM EDT EKG done at this time. Result showing Sinus Brice. * Mena Ramirez RN - 12/29/2019 1:52 AM EDT Spanish Literature Professor changed patient's IV dressing at this time [...] EDT Report called to Denia GUEVARA at [facility] label maker pre/post area. * Celina Moran RN [...] 8:05 PM EDT Report called, transferred to [facility] per wheelchair * Beronica Mason RN - 12/29/2019 7:30 PM EDT Ambulated to bathroom and in halls. Gait steady.. Right groin puncture site and right pedal pulse assessment unchanged. Small amount of bloody drainage noted. No active bleeding. Area cleansed and new band aid applied. Up in chair * Beronica Mason RN - 12/29/2019 3:42 PM EDT Received post procedure to [facility] to room 11. Assessment obtained. Restrictions [...] red dot bag, and [facility] outside of room for transport to [...] quadrant Has pain but w/u ids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 [address] PCP - General Family Medicine 09/30/17 Instructor Modeling Relationship Specialty Start Date End Date Ena Fung, 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 - SUPERVISOR [employer] [address] [place] [address] PCP - General Family Medicine 09/30/17 Instructor Modeling Relationship Specialty Start Date End Date Ena Fung, 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 - SUPERVISOR [employer] [address] [place] [facility] [place] [address] PCP - General Family Medicine 09/30/17 Instructor Modeling Relationship Specialty Start Date End Date Ena Fung, 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 - SUPERVISOR [employer] [address] [place] [address] PCP - General Family Medicine 09/30/17 Instructor Modeling Relationship Specialty Start Date End Date Ena Fung, 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 - SUPERVISOR [employer] [address] [place] [facility] [place] [address] PCP - General Family Medicine 09/30/17 Instructor Modeling Relationship Specialty Start Date End Date Ena Fung, 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 - SUPERVISOR [employer] [address] [place] [facility] [place] [address] PCP - General Family Medicine 09/30/17 Instructor Modeling Relationship Specialty Start Date End Date Ena Fung, 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 - SUPERVISOR [employer] [address] [place] [facility] [place] [address] PCP - General Family Medicine 09/30/17 Instructor Modeling Relationship Specialty Start Date End Date Ena Fung, 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 - SUPERVISOR [employer] [address] [place] [facility] [place] [address] PCP - General Family Medicine 09/30/17 Instructor Modeling Relationship Specialty Start Date End Date Ena Fung, 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 - SUPERVISOR [employer] [address] [place] [facility] [place] [address] PCP - General Family Medicine 09/30/17 Instructor Modeling Relationship Specialty Start Date End Date Ena Fung Elizabeth, 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 - SUPERVISOR [employer] [address] [place] [facility] [place] [address] PCP - General Family Medicine 09/30/17 Instructor Modeling Relationship Specialty Start Date End Date Ena Fung, 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 - SUPERVISOR [employer] [address] [place] [facility] [place] [address] PCP - General Family Medicine 09/30/17 Instructor Modeling Relationship Specialty Start Date End Date Ena Fung, 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 - SUPERVISOR [employer] [address] [place] [facility] [place] [address] PCP - General Family Medicine 09/30/17 Instructor Modeling Relationship Specialty Start Date End Date Ena Fung, 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 - SUPERVISOR [employer] [address] [place] [facility] [place] [address] PCP - General Family Medicine 09/30/17 Instructor Modeling Relationship Specialty Start Date End Date Ena Fung, 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 - SUPERVISOR [employer] [address] [place] [facility] [place] [address] PCP - General Family Medicine 09/30/17 Instructor Modeling Relationship Specialty Start Date End Date Ena Fung, 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 - SUPERVISOR [employer] [address] [place] [facility] [place] [address] PCP - General Family Medicine 09/30/17 Instructor Modeling Relationship Specialty Start Date End Date Ena Fung, 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 - SUPERVISOR [employer] [address] [place] [facility] [place] [address] PCP - General Family Medicine 09/30/17 Instructor Modeling Relationship Specialty Start Date End Date Ena Fung, 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 - SUPERVISOR [employer] [address] [place] [facility] [place] [address] PCP - General Family Medicine 09/30/17 Instructor Modeling Relationship Specialty Start Date End Date Ena Fung, 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 - SUPERVISOR [employer] [address] [place] [address] PCP - General Family Medicine 09/30/17 Instructor Modeling Relationship Specialty Start Date End Date Ena Fung, 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 - SUPERVISOR [employer] [address] [place] [address] PCP - General Family Medicine 09/30/17 Instructor Modeling Relationship Specialty Start Date End Date Kenton Ena M, 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 - SUPERVISOR [employer] [address] [place] [address] PCP - General Family Medicine 09/30/17 Instructor Modeling Relationship Specialty Start Date End Date Ena Fung 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 - SUPERVISOR [employer] [address] [place] [facility] [place] [address] PCP - General Family Medicine 09/30/17 Instructor Modeling Relationship Specialty Start Date End Date Ena Fung, 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 - SUPERVISOR [employer] [address] [place] [address] PCP - General Family Medicine 09/30/17 Instructor Modeling Relationship Specialty Start Date End Date Kenton Ena M, 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 - SUPERVISOR [employer] [address] [place] [facility] [place] [address] PCP - General Family Medicine 09/30/17 Instructor Modeling Relationship Specialty Start Date End Date Kenton Ena M, 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 - SUPERVISOR [employer] [address] [place] [address] PCP - General Family Medicine 09/30/17 INFORMATION SOURCE (unrecogn ized section and content) DATE CREATED AUTHOR 08/27/2022 [facility] DATE CREATED AUTHOR AUTHOR'S ORGANIZ ATION 09/07/2023 [facility] DATE CREATED AUTHOR AUTHOR'S ORGANIZ ATION 03/21/2024 Mikaela Davies [facility] DATE CREATED AUTHOR AUTHOR'S ORGANIZ ATION 06/13/2024 [facility] FOR RECORDS PERTAINING TO PATIENTS WHO ARE [...] BE BASED ON THE PRIMARY CLINICAL RECORDS. [facility] [employer] provides no warranty or guarantee of the accuracy or completeness of information in this document.
--- NOTE | 2025-01-06 14:34 | ECG_ITS ---
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 Measurements Intervals [place] Rate: 85 P: 53 MD: 160 QRS: -8 QRSD: 86 T: 56 QT: 368 QTc: 411 Interpretive Statements 1100 Sinus rhythm 3113 Cannot rule out anterior myocardial infarction, probably old 5211 Minimal voltage criteria for LVH, may be normal variant 9150 abnormal ECG Compared to ECG 08/20/2024 16:46:18 Myocardial infarct finding now present Left ventricular hypertrophy now present ST (T wave) deviation no longer present Electronically Signed On 01-07-2025 21:56:04 EDT by GAYLE GUILLEN M.D.
--- NOTE | 2025-01-06 14:35 | ED.CHESTPAI1 ---
HPI - Chest Pain General Chief Complaint: Chest Pain Stated Complaint: shortness of breath Time Seen by Provider: 01/06/25 14:28 Source: patient Mode of arrival: walk-in Limitations: no limitations History of Present Illness HPI narrative: Patient is a 49-year-old female who presents to the emergency department today for evaluation of concerns for chest discomfort. She endorses over the past 3 to 4 days she has had epigastric region discomfort symptoms of feeling intermittently short of breath. She reports the areas are not necessarily associated with any exertional activities. She reports today she had another episode of epigastric discomfort that was associated with palpitations and feeling diaphoretic and nauseous. She does endorse a history of CAD and remote stenting x 2 3 years ago. She reports she is on aspirin and Brilinta therapy currently. She endorses a history of hypertension and hyperlipidemia. She is not diabetic. History of cholecystectomy and hernia repair. Related Data Home Medications ?Medication ?Instructions ?Recorded ?Confirmed amlodipine 10 mg tablet 10 mg PO QDAY 05/09/24 08/20/24 atorvastatin 80 mg tablet 80 mg PO .qhs 05/09/24 08/20/24 cholecalciferol (vitamin D3) 10 10 mcg PO QDAY 05/09/24 08/20/24 mcg (400 unit) capsule (Vitamin D3) ezetimibe 10 mg tablet 10 mg PO QDAY 05/09/24 05/09/24 gabapentin 300 mg capsule 300 mg PO Q12H 05/09/24 08/20/24 hydroxyzine pamoate 25 mg capsule 25 mg PO Q6H PRN anxiety 05/09/24 08/20/24 pantoprazole 40 mg tablet,delayed 40 mg PO Q12H 05/09/24 08/20/24 release paroxetine HCl 40 mg tablet 40 mg PO QDAY 05/09/24 08/20/24 ranolazine 1,000 mg 1,000 mg PO Q12H 05/09/24 05/09/24 tablet,extended release,12 hr ticagrelor 60 mg tablet (Brilinta) 60 mg PO Q12H 05/09/24 08/20/24 trazodone 100 mg tablet 100 mg PO .qhs 05/09/24 08/20/24 cyclobenzaprine 10 mg tablet 5 mg PO Q8H PRN spasms 08/20/24 08/21/24 estradiol 1 mg tablet 1.5 mg PO DAILY 08/20/24 Previous Rx's ?Medication ?Instructions ?Recorded potassium chloride 10 mEq 10 meq PO DAILY 14 days #14 tabs 08/21/24 tablet,extended release (Klor-Con) acetaminophen 650 mg 650 mg PO Q8H PRN pain #20 tabs 09/14/24 tablet,extended release (Tylenol 8 Hour) methylprednisolone 4 mg tablets in 4 mg PO .as directed #21 ea 09/14/24 a dose pack (Medrol (Enrrique)) Allergies Allergy/AdvReac Type Severity Reaction Status Date / Time cephalexin (From Keflex) Allergy Mild Rash Verified 01/06/25 14:23 clopidogrel (From Plavix) AdvReac Severe crystalized Verified 01/06/25 14:23 in brain Review of Systems ROS Status of ROS 10 or more systems reviewed and unremarkable except as noted in history and below [facility] Medical History (Updated 01/06/25 @ 18:07 by Joel Maier NP) Primary hypertension ?I10 - Essential (primary) hypertension (ICD-10) Insomnia ?G47.00 - Insomnia, unspecified (ICD-10) Anxiety ?F41.9 - Anxiety disorder, unspecified (ICD-10) Injury, crush, finger ?S67.10XA - Crushing injury of unspecified finger(s), initial encounter (ICD-10) Finger injury ?S69.90XA - Unspecified injury of unspecified wrist, hand and finger(s), initial encounter (ICD-10) Encounter for colonoscopy following colon polyp removal ?Z12.11 - Encounter for screening for malignant neoplasm of colon (ICD-10) ?Z86.0100 - Personal history of colon polyps, unspecified (ICD-10) Implantable loop recorder present ?Z95.818 - Presence of other cardiac implants and grafts (ICD-10) Former smoker, stopped smoking in distant past ?Z87.891 - Personal history of nicotine dependence (ICD-10) CAD (coronary artery disease) ?I25.10 - Atherosclerotic heart disease of [place] coronary artery without angina pectoris (ICD-10) Heart disease ?I51.9 - Heart disease, unspecified (ICD-10) Surgical History H/O colonoscopy ?Z98.890 - Other specified postprocedural states (ICD-10) History of esophagogastroduodenoscopy (EGD) ?Z98.890 - Other specified postprocedural states (ICD-10) History of hernia repair ?Z98.890 - Other specified postprocedural states (ICD-10) ?Z87.19 - Personal history of other diseases of the digestive system (ICD-10) H/O heart artery stent ?Z95.5 - Presence of coronary angioplasty implant and graft (ICD-10) Hx of cholecystectomy ?Z90.49 - Acquired absence of other specified parts of digestive tract (ICD-10) Hx of spinal fusion ?Z98.1 - Arthrodesis status (ICD-10) Hx of hysterectomy ?Z90.710 - Acquired absence of both cervix and uterus (ICD-10) Social History Within the past year, how often did you have a drink containing alcohol: never Score interpretation: A score less than 3 is consistent with normal alcohol consumption. Smoking status: Former smoker Second hand tobacco smoke exposure: No Non-prescribed substance use: denies use Known occupational exposures/hazards: No Highest level of school completed/degree received: GED or equivalent Do you want help with school or training: No Are you now , , , , never or living with a partner: In a typical week, how many times do you talk on the telephone with family, friends, or neighbors: 3 or more times per week Little interest or pleasure in doing things: not at all Feeling down, depressed, or hopeless: not at all Feel stressed/tense/nervous/anxious/difficulty sleeping: to some extent Life stressors: recent of family or friend Life stressor details: of sister (was like her mom) in January 2024 Due to disability, difficulty making decisions: No Do you think of yourself as: straight/heterosexual Gender Identity: female Exam Narrative Exam Narrative: Constituational: Awake/ alert, no apparent distress, well hydrated HENMT: normocephalic, external ears normal, moist oral mucous membranes and oropharynx normal Eyes: EOMI and conjunctivae normal Neck: ROM intact Chest: inspection of chest normal Respiratory: Normal respiratory effort, clear to auscultation bilaterally Cardio: regular rate and regular rhythm GI: soft to palpation and non-tender Back: nontender MSK: ROM intact, +NVI Skin: no rashes or petechiae Neuro: no focal deficits Psych: mental status grossly normal Constitutional Vital Signs, click to edit/add: Last Vital Signs Temp 97.8 F 01/06/25 14:23 Pulse 70 01/06/25 17:20 Resp 18 01/06/25 17:20 BP 152/86 H 01/06/25 16:08 Pulse Ox 100 01/06/25 17:20 Course Vital Signs Vital signs: Vital Signs Temperature 97.8 F 01/06/25 14:23 Pulse Rate 90 01/06/25 14:23 Respiratory Rate 20 01/06/25 14:23 Blood Pressure 168/89 H 01/06/25 14:23 Pulse Oximetry 98 01/06/25 14:23 Temperature 97.8 F 01/06/25 14:23 Pulse Rate 70 01/06/25 17:20 Respiratory Rate 18 01/06/25 17:20 Blood Pressure 152/86 H 01/06/25 16:08 Pulse Oximetry 100 01/06/25 17:20 MDM - Chest Pain MDM Narrative Medical decision making narrative: The patient is a nontoxic-appearing 49-year-old female presenting to the emergency department today for evaluation concerns for lower chest/epigastric region discomfort. Examination vital signs overall stable. No acute abdominal findings on exam. There was some elevated anginal equivalent of patient's symptoms as evidenced by lower chest pain with feeling diaphoretic and nauseous. Historically patient states she takes nitro sublingually as needed and did take 1 arrival which she feels may have alleviated her symptoms some. no acute changes and troponin is negative x 2. Chest x-ray additionally stable. She appears euvolemic on exam. Labs otherwise showed no significant leukocytosis, anemia, thrombocytopenia. Electrolytes including renal and hepatic function stable. Normal lipase. Patient received supportive measures of GI cocktail initially with no improvement in symptoms and subsequently morphine which she did state alleviated her epigastric pain some. CT imaging of abdomen and pelvis without critical findings other than mild extrahepatic biliary duct dilation that could be physiologic following postcholecystectomy. Within normal range. HEART score 4 (d/t presenting history, age, cardiovascular risk factors)-> discussed consideration for admission for serial reevaluation vs follow-up with her acoustic intelligence specialist. Patient prefers to follow-up outpatient with her acoustic intelligence specialist closely. Impression epigastric discomfort. Discussed this with the patient including recommendations for supportive care. Historically patient is on PPI and continuation. Referral provided for GI for follow-up from the ER today. Discussed signs and symptoms of any worsening condition and when to consider reevaluation by the emergency department. Patient verbalized an understanding of this and is agreeable with the plan to be discharged home. Medical Records Data Attestation: I reviewed the patient's medical records. Lab Data Attestation: I reviewed the patient's lab results. Labs: Lab Results 01/06/25 01/06/25 Range/Units 14:58 15:56 WBC 7.4 (4.0-11.0) 10^3/uL RBC 4.31 (4.20-5.40) 10^6/uL Hgb 13.1 (12.0-16.0) g/dL Hct 35.7 L (36.0-48.0) % MCV 82.8 (81.0-99.0) fL MCH 30.4 (26.7-34.0) pg MCHC 36.7 H (29.9-35.2) g/dL RDW 11.9 (11.0-15.0) % Plt Count 276 (150-450) 10^3/uL MPV 10.1 (9.5-13.5) fL Neut % (Auto) 66.2 (43.0-75.0) % Lymph % (Auto) 25.1 (20.5-60.0) % [place] % (Auto) 6.2 (1.7-12.0) % Eos % (Auto) 1.5 (0.9-7.0) % Baso % (Auto) 0.7 (0.2-2.0) % Neut # (Auto) 4.9 (1.4-6.5) 10^3/uL Lymph # (Auto) 1.9 (1.2-3.8) 10^3/uL [place] # (Auto) 0.5 (0.3-0.8) 10^3/uL Eos # (Auto) 0.1 (0.0-0.7) 10^3/uL Baso # (Auto) 0.1 (0.0-0.1) 10^3/uL Abs Immat Gran (auto) 0.02 (0.00-0.03) 10^3/uL Imm/Tot Granulo (auto) 0.3 (0.0-0.5) % Sodium 140 (136-145) mmol/L Potassium 3.4 L (3.5-5.1) mmol/L Chloride 102 (98-107) mmol/L Carbon Dioxide 26.7 (21.0-32.0) mmol/L Anion Gap 14.7 BUN 8.0 (7.0-18.0) mg/dL Creatinine 0.63 (0.55-1.02) mg/dL Est GFR ( Amer) >60 (>=60 mL/min/1.73m^2) Est GFR (Non-Af Amer) >60 (>=60 mL/min/1.73m^2) BUN/Creatinine Ratio 12.7 Glucose 161 H (74-106) mg/dL Calcium 9.0 (8.5-10.1) mg/dL Total Bilirubin 0.6 (0.2-1.0) mg/dL AST 29 (15-37) U/L ALT 47 (14-59) U/L Alkaline Phosphatase 110 (46-116) U/L Troponin I High Sens 6.6 <4.0 L (4.0-51.3) pg/mL NT-Pro-B Natriuret Pep 19.0 (<=900.0) pg/mL Total Protein 7.2 (6.4-8.2) g/dL Albumin 3.7 (3.4-5.0) g/dL Globulin 3.5 g/dL Albumin/Globulin Ratio 1.1 Lipase 25.0 (16.0-77.0) U/L Imaging Data Chest x-ray: Attestation: I have reviewed the pertinent imaging results. Radiologist's impression: No acute processes seen, no lobar consolidation or, no fracture or foreign body, no free air in upper abdomen, cholecystectomy, DDD throughout thoracic spine CT scan - abdomen: Attestation: I have reviewed the pertinent imaging results. Radiologist's impression: Mild extrahepatic biliary duct dilation could be physiologic postcholecystectomy. Correlate with LFTs and consider further evaluation with MRCP is warranted clinically. Otherwise no additional significant abnormalities in the abdomen or pelvis. ECG Data Attestation: I personally reviewed and interpreted this ECG as follows: (With HR 85, no acute/ischemic changes) Discharge Plan Discharge Chief Complaint: Chest Pain Clinical Impression: Acute epigastric pain Patient Disposition: Home, Self-Care Prescriptions / Home Meds: No Action amlodipine 10 mg tablet 10 mg PO QDAY atorvastatin 80 mg tablet 80 mg PO .qhs cholecalciferol (vitamin D3) [Vitamin D3] 10 mcg (400 unit) capsule 10 mcg PO QDAY ezetimibe 10 mg tablet 10 mg PO QDAY gabapentin 300 mg capsule 300 mg PO Q12H hydroxyzine pamoate 25 mg capsule 25 mg PO Q6H PRN (Reason: anxiety) pantoprazole 40 mg tablet,delayed release (DR/EC) 40 mg PO Q12H paroxetine HCl 40 mg tablet 40 mg PO QDAY ranolazine 1,000 mg tablet extended release 12 hr 1,000 mg PO Q12H Brilinta 60 mg tablet 60 mg PO Q12H trazodone 100 mg tablet 100 mg PO .qhs cyclobenzaprine 10 mg tablet 5 mg PO Q8H PRN (Reason: spasms) estradiol 1 mg tablet 1.5 mg PO DAILY potassium chloride [Klor-Con 10] 10 mEq tablet extended release 10 meq PO DAILY 14 Days Qty: 14 0RF methylprednisolone [Medrol (Enrrique)] 4 mg tablets,dose pack 4 mg PO .as directed Qty: 21 0RF Rx Instructions: please use as per dose enrrique instruction acetaminophen [Tylenol 8 Hour] 650 mg tablet extended release 650 mg PO Q8H PRN (Reason: pain) Qty: 20 0RF Print Language: Prydeinig Instructions: Abdominal Pain (ED) Additional Instructions: Continue your Protonix as prescribed. May take Tylenol as needed for any pain. Recommend close follow-up with GI for reevaluation in addition to your acoustic intelligence specialist. May return to the ER with any new or worsening symptoms/concerns. Referrals: Lovely Wray NP [Primary Care Provider] - 1 week Carrie Schreiber DO [Physician] - 1 week
[2025-01-06 15:02] LABS: Basophils Absolute Auto 0.1 10^3/uL (0.0-0.1); Basophils Percent Auto 0.7 % (0.2-2.0); Eosinophils Absolute Auto 0.1 10^3/uL (0.0-0.7); Eosinophils Percent Auto 1.5 % (0.9-7.0); Hematocrit 35.7 % (36.0-48.0); Hemoglobin 13.1 g/dL (12.0-16.0); Immature Granulocytes Abs Auto 0.02 10^3/uL (0.00-0.03); Immature Granulocytes Pct Auto 0.3 % (0.0-0.5); Lymphocytes Absolute Auto 1.9 10^3/uL (1.2-3.8); Lymphocytes Percent Auto 25.1 % (20.5-60.0); Mean Corpuscular HGB Conc 36.7 g/dL (29.9-35.2); Mean Corpuscular Hemoglobin 30.4 pg (26.7-34.0); Mean Corpuscular Volume 82.8 fL (81.0-99.0); Mean Platelet Volume 10.1 fL (9.5-13.5); Monocytes Absolute Auto 0.5 10^3/uL (0.3-0.8); Monocytes Percent Auto 6.2 % (1.7-12.0); Neutrophils Absolute Auto 4.9 10^3/uL (1.4-6.5); Neutrophils Percent Auto 66.2 % (43.0-75.0); Platelet Count 276 10^3/uL (150-450); Red Blood Count 4.31 10^6/uL (4.20-5.40); Red Cell Distribution Width 11.9 % (11.0-15.0); White Blood Count 7.4 10^3/uL (4.0-11.0)
[2025-01-06 15:17] LABS: Anion Gap 14.7
[2025-01-06 15:25] LABS: Alanine Aminotransferase 47 U/L (14-59); Albumin Globulin Ratio 1.1; Albumin Level 3.7 g/dL (3.4-5.0); Alkaline Phosphatase 110 U/L (46-116); Aspartate Amino Transferase 29 U/L (15-37); BUN Creatinine Ratio 12.7; Bilirubin Total 0.6 mg/dL (0.2-1.0); Carbon Dioxide 26.7 mmol/L (21.0-32.0); Chloride 102 mmol/L (98-107); Estimated GFR (African America >60 (>=60 mL/min/1.73m^2); Estimated GFR (Non-African Ame >60 (>=60 mL/min/1.73m^2); Globulin 3.5 g/dL; Glucose 161 mg/dL (74-106); Potassium 3.4 mmol/L (3.5-5.1); Sodium 140 mmol/L (136-145); Total Protein 7.2 g/dL (6.4-8.2); Troponin I High Sensitivity 6.6 pg/mL (4.0-51.3)
[2025-01-06] MEDS: lidocaine HCL 15 ML, MAG HYDROX/ALUMINUM HYD/SIMETH 30 ML, HYOSCYAMINE SULFATE 0.25 MG PO (15:36)
[2025-01-06] MEDS: ONDANSETRON PF 4 MG/2 ML VIAL IV (16:10)
[2025-01-06] MEDS: MORPHINE SULFATE 2 MG/ML SYRINGE IV (16:10)
[2025-01-06 16:19] LABS: Troponin I High Sensitivity <4.0 pg/mL (4.0-51.3)
== END 2025-01-06 18:51 | disposition home or self-care (01) ==
PROVIDERS: Nurse Practitioner; Emergency Provider Student in an Organized Health Care Education/Training Program; PCP Nurse Practitioner Family
DX: R10.13 Epigastric pain (principal); Z90.49 Acquired absence of other specified parts of digestive tract; Z90.710 Acquired absence of both cervix and uterus; R06.02 Shortness of breath; I25.10 Atherosclerotic heart disease of native coronary artery without angina pectoris; Z95.5 Presence of coronary angioplasty implant and graft; Z79.82 Long term (current) use of aspirin; Z79.899 Other long term (current) drug therapy; I10 Essential (primary) hypertension; E78.5 Hyperlipidemia, unspecified; Z98.1 Arthrodesis status; Z87.891 Personal history of nicotine dependence; Z63.4 Disappearance and death of family member
CPT/HCPCS: 36415; 71046; 74177; 80053; 83690; 83880; 84484; 85025; 93005; 96374; 96375; 99285; J2270; J2405; Q9967

== ENCOUNTER 2025-02-15 14:44 | Emergency (ER) | payer OTHER, SELFPAY ==
[2025-02-15 14:49] VITALS: BP 152/96; PULSE 89; TEMP 36.6; O2SAT 98; BMI 32.6
--- OUTSIDE RECORDS SUMMARY | 2025-02-15 14:56 | XMS_ITS | Clinical Summary ---
Author Organization [facility] Address [address] [place] [address] Care Team Providers Care Overcoiler Name Role Phone Unavailable Primary Care Provider Unavailabl e Social History Tobacco Use Types Packs/Day Years Used Date Smoking Tobacco: Never Assessed Comments Unknown Sex and Gender Information Value Date Recorded Sex Assigned at Not on file Legal Sex Female 10:42 AM EDT Gender Identity Not on file Sexual Orientation Not on file Plan of Treatment Not on file Insurance [employer] [place]
--- OUTSIDE RECORDS SUMMARY | 2025-02-15 14:56 | XMS_ITS | Patient Health Record ---
Author Organization [facility] [place] Address [address] [place] [address] Care Team Providers Care Soil Sampler Name Role Phone Aurora Maya MD Primary Care Provider Quincy dorman Reason For Referral No Information Medications Medication SIG (Take, Route, Fr equency, Duration) Notes Start Date End Date Status Aspirin 81 mg 1 enteric coated tablet DAILY 1899 Active Verapamil HCl 80 mg 1 tablet DAILY Active Zoloft 25 mg 1 tablet DAILY A ctive Prilosec Active Problems Problem Type SNOMED Code ICD Code Onset Dates Problem Status W/U Status Risk Notes Problem Coronary artery disease (00279453) CAD (coronary artery disease) (I25.10) Active confirmed Problem Anxiety (31179285) Anxiety (F41.9) Active confirmed Problem Insomnia (534445356) Insomnia (G47.00) Active confirmed Problem Primary hypertension (82209820) Primary hypertension (I10) Active confirmed Plan Of Treatment No Information Insurance Providers Payer Name Payer Address Payer Phone Subscriber Number Group Number Insured Name Patient Relationship to Insured Coverage Start Date Coverage End Date [employer] [place] [employer] [address] [place] [address] [id number] Bianca Howard Self - patient is the insured Medical (General) History Surgical History Surgery Date(Month/Year) History of procedures of the spine History of cholecystectomy Surgical / procedural history endometria l ablation
--- NOTE | 2025-02-15 15:12 | CT_ITS ---
The [address] [address] Patient Name: MIKE SAMPSON MRN: [id number] date: 1975 Sex: F Assigned Patient Location: ER Current Patient Location: ER Accession/Order Number: [id number] Exam Date: 02/15/2025 17:18 Report Date: 02/15/2025 17:22 At the request of: NATHANAEL ROSE MD Procedure: CT abdomen pelvis w con CT ABDOMEN AND PELVIS WITH INTRAVENOUS CONTRAST: CLINICAL HISTORY: trauma to the right flank and hematuria COMPARISON: 01/06/2025 TECHNIQUE: Spiral images were obtained through the abdomen and pelvis following the administration of intravenous contrast. This CT exam was performed using one or more following dose reduction techniques: Automated exposure control, adjustment of the mA and/or kV according to patient size, or use of iterative reconstruction technique. FINDINGS: Lung Bases: [No focal opacity] Organs:Liver, spleen, adrenals, kidneys, pancreas unremarkable. Cholecystectomy.[ GI: Mild retained stool. No bowel obstruction.[ Pelvis:[Bladder collapsed. No adnexal mass. Uterus absent.] Peritoneum/Retroperitoneum:Moderate plaque involving the nonaneurysmal aorta. No free air or free fluid.[ Abd wall/Bones:Prior L3-L5 instrumentation. Pedicle screws L5-S1 noted with spacer devices L5-S1.[ CT/CT abdomen pelvis w con IMPRESSION: Negative acute posttraumatic process. Impression dictated by: Derek Vick M.D. 02/15/2025 5:22 PM Dictation Location: [place] [address] Electronically authenticated by: [id number] Date: 02/15/2025 17:22
--- NOTE | 2025-02-15 15:12 | CT_ITS ---
The [address] [address] Patient Name: MIKE SAMPSON MRN: [id number] date: 1975 Sex: F Assigned Patient Location: ER Current Patient Location: ER Accession/Order Number: [id number] Exam Date: 02/15/2025 17:23 Report Date: 02/15/2025 17:25 At the request of: NATHANAEL ROSE MD Procedure: CT chest w con CT CHEST WITH INTRAVENOUS CONTRAST: CLINICAL HISTORY: trauma COMPARISON: Chest x-ray 01/06/2025 TECHNIQUE: Spiral images were obtained through the chest following intravenous administration of IV contrast. This CT exam was performed using one or more following dose reduction techniques: Automated exposure control, adjustment of the mA and/or kV according to patient size, or use of iterative reconstruction technique. FINDINGS: Heart is normal size without pericardial effusion. Coronary artery disease versus stents noted. No suspicious mediastinal or hilar adenopathy. Aortic plaque. Aorta is nonaneurysmal. Lungs are clear no effusion or pneumothorax. Multilevel degenerative changes of the thoracic spine. No compression fracture. No acute displaced rib fracture. CT/CT chest w con IMPRESSION: Negative for acute posttraumatic process involving the chest. Impression dictated by: Derek Vick M.D. 02/15/2025 5:25 PM Dictation Location: [place] [address] Electronically authenticated by: [id number] Y Date: 02/15/2025 17:25
--- NOTE | 2025-02-15 15:23 | XR_ITS ---
The [address] [address] Patient Name: MIKE SAMPSON MRN: [id number] date: 1975 Sex: F Assigned Patient Location: ER Current Patient Location: ER Accession/Order Number: [id number] Exam Date: 02/15/2025 16:31 Report Date: 02/15/2025 16:33 At the request of: NATHANAEL ROSE MD Procedure: XR elbow RT min 3V 2 VIEWS RIGHT HUMERUS/2 VIEWS RIGHT FOREARM/2 VIEWS RIGHT SHOULDER/3 VIEWS RIGHT ELBOW CLINICAL HISTORY: fall COMPARISON: None FINDINGS: No fracture dislocation identified. Soft tissues unremarkable. No significant degenerative change. XR/XR elbow RT min 3V IMPRESSION: NO ACUTE BONY INJURY. Impression dictated by: Derek Vick M.D. 02/15/2025 4:33 PM Dictation Location: [place] [address] Electronically authenticated by: [id number] Y Date: 02/15/2025 16:33
--- NOTE | 2025-02-15 15:23 | XR_ITS ---
The [address] [address] Patient Name: MIKE SAMPSON MRN: [id number] date: 1975 Sex: F Assigned Patient Location: ER Current Patient Location: ER Accession/Order Number: [id number] Exam Date: 02/15/2025 16:31 Report Date: 02/15/2025 16:33 At the request of: NATHANAEL ROSE MD Procedure: XR elbow RT min 3V 2 VIEWS RIGHT HUMERUS/2 VIEWS RIGHT FOREARM/2 VIEWS RIGHT SHOULDER/3 VIEWS RIGHT ELBOW CLINICAL HISTORY: fall COMPARISON: None FINDINGS: No fracture dislocation identified. Soft tissues unremarkable. No significant degenerative change. XR/XR forearm RT 2V IMPRESSION: NO ACUTE BONY INJURY. Impression dictated by: Derek Vick M.D. 02/15/2025 4:33 PM Dictation Location: [place] [address] Electronically authenticated by: [id number] Y Date: 02/15/2025 16:33
--- NOTE | 2025-02-15 15:23 | XR_ITS ---
The [address] [address] Patient Name: MIKE SAMPSON MRN: [id number] date: 1975 Sex: F Assigned Patient Location: ER Current Patient Location: ER Accession/Order Number: [id number] Exam Date: 02/15/2025 16:31 Report Date: 02/15/2025 16:33 At the request of: NATHANAEL ROSE MD Procedure: XR elbow RT min 3V 2 VIEWS RIGHT HUMERUS/2 VIEWS RIGHT FOREARM/2 VIEWS RIGHT SHOULDER/3 VIEWS RIGHT ELBOW CLINICAL HISTORY: fall COMPARISON: None FINDINGS: No fracture dislocation identified. Soft tissues unremarkable. No significant degenerative change. XR/XR shoulder RT min 2V IMPRESSION: NO ACUTE BONY INJURY. Impression dictated by: Derek Vick M.D. 02/15/2025 4:33 PM Dictation Location: [place] [address] Electronically authenticated by: [id number] Y Date: 02/15/2025 16:33
[2025-02-15 15:45] LABS: Hematocrit 36.5 % (36.0-48.0); Hemoglobin 13.2 g/dL (12.0-16.0); Immature Granulocytes Abs Auto 0.01 10^3/uL (0.00-0.03); Immature Granulocytes Pct Auto 0.1 % (0.0-0.5); Lymphocytes Absolute Auto 2.5 10^3/uL (1.2-3.8); Mean Corpuscular HGB Conc 36.2 g/dL (29.9-35.2); Mean Corpuscular Hemoglobin 30.1 pg (26.7-34.0); Mean Corpuscular Volume 83.1 fL (81.0-99.0); Platelet Count 304 10^3/uL (150-450); Red Blood Count 4.39 10^6/uL (4.20-5.40); White Blood Count 7.4 10^3/uL (4.0-11.0)
[2025-02-15 15:50] LABS: Glucose Urine UA NEGATIVE (NEGATIVE)
[2025-02-15 15:59] LABS: Alanine Aminotransferase 51 U/L (14-59); Albumin Globulin Ratio 1.1; Albumin Level 4.1 g/dL (3.4-5.0); Alkaline Phosphatase 117 U/L (46-116); Anion Gap 14.7; Aspartate Amino Transferase 24 U/L (15-37); Blood Urea Nitrogen 10.0 mg/dL (7.0-18.0); Calcium 9.0 mg/dL (8.5-10.1); Carbon Dioxide 26.1 mmol/L (21.0-32.0); Chloride 100 mmol/L (98-107); Estimated GFR (African America >60 (>=60 mL/min/1.73m^2); Estimated GFR (Non-African Ame >60 (>=60 mL/min/1.73m^2); Globulin 3.6 g/dL; Glucose 106 mg/dL (74-106); Sodium 138 mmol/L (136-145); Total Protein 7.7 g/dL (6.4-8.2)
--- NOTE | 2025-02-15 15:59 | ED.GENADUL1 ---
HPI HPI - General Adult General Chief complaint: Fall Stated complaint: UPPER EXTREMITY INJURY - FALL 02/14/2025 Time Seen by Provider: 02/15/25 15:00 Source: patient Mode of arrival: walk-in Limitations: no limitations History of Present Illness HPI narrative: The patient slipped yesterday while she was going downstairs at home apparently she slipped over the last 4 steps. Patient mentioned that she slid on the right side of her back and chest and she is complaining of pain whenever she take a deep breath and she also mentioned that when she woke up this morning she was having some blood in urine Although the patient just went to the bathroom right now she does not see the urine to have blood in it at the moment The patient also have the right arm swelling and pain with movement of the right shoulder Related Data Home Medications ?Medication ?Instructions ?Recorded ?Confirmed amlodipine 10 mg tablet 10 mg PO QDAY 05/09/24 08/20/24 atorvastatin 80 mg tablet 80 mg PO .qhs 05/09/24 08/20/24 cholecalciferol (vitamin D3) 10 10 mcg PO QDAY 05/09/24 08/20/24 mcg (400 unit) capsule (Vitamin D3) ezetimibe 10 mg tablet 10 mg PO QDAY 05/09/24 05/09/24 gabapentin 300 mg capsule 300 mg PO Q12H 05/09/24 08/20/24 hydroxyzine pamoate 25 mg capsule 25 mg PO Q6H PRN anxiety 05/09/24 08/20/24 pantoprazole 40 mg tablet,delayed 40 mg PO Q12H 05/09/24 08/20/24 release paroxetine HCl 40 mg tablet 40 mg PO QDAY 05/09/24 08/20/24 ranolazine 1,000 mg 1,000 mg PO Q12H 05/09/24 05/09/24 tablet,extended release,12 hr ticagrelor 60 mg tablet (Brilinta) 60 mg PO Q12H 05/09/24 08/20/24 trazodone 100 mg tablet 100 mg PO .qhs 05/09/24 08/20/24 cyclobenzaprine 10 mg tablet 5 mg PO Q8H PRN spasms 08/20/24 08/21/24 estradiol 1 mg tablet 1.5 mg PO DAILY 08/20/24 Previous Rx's ?Medication ?Instructions ?Recorded potassium chloride 10 mEq 10 meq PO DAILY 14 days #14 tabs 08/21/24 tablet,extended release (Klor-Con) methylprednisolone 4 mg tablets in 4 mg PO .as directed #21 ea 09/14/24 a dose pack (Medrol (Enrrique)) oxycodone-acetaminophen 5 mg-325 1 tab PO Q12H PRN pain 3 days #6 02/15/25 mg tablet (Percocet) tabs Allergies Allergy/AdvReac Type Severity Reaction Status Date / Time cephalexin (From Keflex) Allergy Mild Rash Verified 02/15/25 14:49 clopidogrel (From Plavix) AdvReac Severe crystalized Verified 02/15/25 14:49 in brain Opioid HPI Opioid Management Most Recent Opioid Data: Last Pain Scale 8 Today, 17:02 Last MAR Pain Assessment Today, 17:02 Last ORT Total Score 2 08/20/24, 19:54 Last ORT Risk Category Low Risk 08/20/24, 19:54 Review of Systems ROS Status of ROS 10 or more systems reviewed and unremarkable except as noted in history and below [facility] Medical History (Updated 02/15/25 @ 18:20 by Martina Mcqueen MD) Primary hypertension ?I10 - Essential (primary) hypertension (ICD-10) Insomnia ?G47.00 - Insomnia, unspecified (ICD-10) Anxiety ?F41.9 - Anxiety disorder, unspecified (ICD-10) Injury, crush, finger ?S67.10XA - Crushing injury of unspecified finger(s), initial encounter (ICD-10) Finger injury ?S69.90XA - Unspecified injury of unspecified wrist, hand and finger(s), initial encounter (ICD-10) Encounter for colonoscopy following colon polyp removal ?Z12.11 - Encounter for screening for malignant neoplasm of colon (ICD-10) ?Z86.0100 - Personal history of colon polyps, unspecified (ICD-10) Implantable loop recorder present ?Z95.818 - Presence of other cardiac implants and grafts (ICD-10) Former smoker, stopped smoking in distant past ?Z87.891 - Personal history of nicotine dependence (ICD-10) CAD (coronary artery disease) ?I25.10 - Atherosclerotic heart disease of [place] coronary artery without angina pectoris (ICD-10) Heart disease ?I51.9 - Heart disease, unspecified (ICD-10) Surgical History H/O colonoscopy ?Z98.890 - Other specified postprocedural states (ICD-10) History of esophagogastroduodenoscopy (EGD) ?Z98.890 - Other specified postprocedural states (ICD-10) History of hernia repair ?Z98.890 - Other specified postprocedural states (ICD-10) ?Z87.19 - Personal history of other diseases of the digestive system (ICD-10) H/O heart artery stent ?Z95.5 - Presence of coronary angioplasty implant and graft (ICD-10) Hx of cholecystectomy ?Z90.49 - Acquired absence of other specified parts of digestive tract (ICD-10) Hx of spinal fusion ?Z98.1 - Arthrodesis status (ICD-10) Hx of hysterectomy ?Z90.710 - Acquired absence of both cervix and uterus (ICD-10) Social History Within the past year, how often did you have a drink containing alcohol: never Score interpretation: A score less than 3 is consistent with normal alcohol consumption. Smoking status: Former smoker Second hand tobacco smoke exposure: No Non-prescribed substance use: denies use Known occupational exposures/hazards: No Highest level of school completed/degree received: GED or equivalent Do you want help with school or training: No Are you now , , , , never or living with a partner: In a typical week, how many times do you talk on the telephone with family, friends, or neighbors: 3 or more times per week Little interest or pleasure in doing things: not at all Feeling down, depressed, or hopeless: not at all Feel stressed/tense/nervous/anxious/difficulty sleeping: to some extent Life stressors: recent of family or friend Life stressor details: of sister (was like her mom) in January 2024 Due to disability, difficulty making decisions: No Do you think of yourself as: straight/heterosexual Gender Identity: female Exam Narrative Exam Narrative: Nurses notes and vital signs reviewed and patient is not hypoxic. Upper extremity examination: The patient have a ecchymosis on the medial aspect of both the arm and the elbow and the patient have tenderness on palpation , she has full range of movement of the right shoulder but with pain General: Well-appearing and in no apparent distress. Skin: Warm, dry, no pallor noted. No rash. Head: Normocephalic, atraumatic. Neck: Supple, non-tender. Eye: Pupils are equal, round and EOMI. No scleral icterus. Ears, Nose, Mouth, and Throat: TM are clear, no nasal mucosal hypertrophy. Oral mucosa is moist, no posterior oropharynx erythema, uvula is mid-line Cardiovascular: Regular Rate and Rhythm without murmur, gallop or rub. Respiratory: No accessory muscle use or respiratory distress. Lungs are clear to auscultation, no wheezing, rales or rhonchi Chest Wall: There is tenderness upon palpation of the posterior aspect of the chest wall and the patient also have tenderness palpation of the back mostly at the lower lumbar but there is no ecchymosis seen in the tenderness in the paraspinal level GI: Abdomen is soft, non-distended. Normal bowel sounds. No masses appreciated. No tenderness to palpation. No rebound, guarding, or rigidity noted. Neurological: A&O x4. No cranial nerve dysfunction observed. No truncal ataxia. Moves all extremities. Sensation intact. Psychiatric: Cooperative and interactive. Normal mood and affect. Constitutional Vital Signs, click to edit/add: Last Vital Signs Temp 97.9 F 02/15/25 14:49 Pulse 73 02/15/25 18:10 Resp 16 02/15/25 18:10 BP 146/90 H 02/15/25 18:10 Pulse Ox 100 02/15/25 18:10 O2 Del Method Room Air 02/15/25 18:10 Course Vital Signs Vital signs: Vital Signs Temperature 97.9 F 02/15/25 14:49 Pulse Rate 89 02/15/25 14:49 Respiratory Rate 16 02/15/25 14:49 Blood Pressure 152/96 H 02/15/25 14:49 Pulse Oximetry 98 02/15/25 14:49 Oxygen Delivery Method Room Air 02/15/25 14:49 Temperature 97.9 F 02/15/25 14:49 Pulse Rate 73 02/15/25 18:10 Respiratory Rate 16 02/15/25 18:10 Blood Pressure 146/90 H 02/15/25 18:10 Pulse Oximetry 100 02/15/25 18:10 Oxygen Delivery Method Room Air 02/15/25 18:10 Medical Decision Making MDM Narrative Medical decision making narrative: X-ray of the patient shoulder humerus elbow and forearm showed no acute pathology In the patient CT of the chest as well as CT with contrast of the abdomen just to make sure that the patient did not have any kidney injury especially with a history of hematuria showed no acute pathology The patient urine was negative for blood here in the ER CBC and chemistry showed no acute pathology as well except for the potassium being 2.8 and the patient have a history of hypokalemia she was just started on p.o. potassium supplement The patient was provided p.o. potassium here in the ER and she was just to continue with the p.o. potassium supplement at home and follow-up within the next few days for further evaluation of the potassium level The patient is to follow up with primary care physician in next 2-3 days or to return to the emergency department should any of the signs or symptoms worsen or new symptoms develop. The patient agrees with the following Diagnosis and Treatment plan and the patient will be discharged home. Lab Data Labs: Lab Results 02/15/25 02/15/25 Range/Units 15:30 15:32 WBC 7.4 (4.0-11.0) 10^3/uL RBC 4.39 (4.20-5.40) 10^6/uL Hgb 13.2 (12.0-16.0) g/dL Hct 36.5 (36.0-48.0) % MCV 83.1 (81.0-99.0) fL MCH 30.1 (26.7-34.0) pg MCHC 36.2 H (29.9-35.2) g/dL RDW 11.9 (11.0-15.0) % Plt Count 304 (150-450) 10^3/uL MPV 10.0 (9.5-13.5) fL Neut % (Auto) 56.9 (43.0-75.0) % Lymph % (Auto) 33.3 (20.5-60.0) % [place] % (Auto) 7.7 (1.7-12.0) % Eos % (Auto) 1.5 (0.9-7.0) % Baso % (Auto) 0.5 (0.2-2.0) % Neut # (Auto) 4.2 (1.4-6.5) 10^3/uL Lymph # (Auto) 2.5 (1.2-3.8) 10^3/uL [place] # (Auto) 0.6 (0.3-0.8) 10^3/uL Eos # (Auto) 0.1 (0.0-0.7) 10^3/uL Baso # (Auto) 0.0 (0.0-0.1) 10^3/uL Abs Immat Gran (auto) 0.01 (0.00-0.03) 10^3/uL Imm/Tot Granulo (auto) 0.1 (0.0-0.5) % Sodium 138 (136-145) mmol/L Potassium 2.8 L* (3.5-5.1) mmol/L Chloride 100 (98-107) mmol/L Carbon Dioxide 26.1 (21.0-32.0) mmol/L Anion Gap 14.7 BUN 10.0 (7.0-18.0) mg/dL Creatinine 0.80 (0.55-1.02) mg/dL Est GFR ( Amer) >60 (>=60 mL/min/1.73m^2) Est GFR (Non-Af Amer) >60 (>=60 mL/min/1.73m^2) BUN/Creatinine Ratio 12.5 Glucose 106 (74-106) mg/dL Calcium 9.0 (8.5-10.1) mg/dL Total Bilirubin 0.5 (0.2-1.0) mg/dL AST 24 (15-37) U/L ALT 51 (14-59) U/L Alkaline Phosphatase 117 H (46-116) U/L Total Protein 7.7 (6.4-8.2) g/dL Albumin 4.1 (3.4-5.0) g/dL Globulin 3.6 g/dL Albumin/Globulin Ratio 1.1 Serum HCG, Qual Negative (NEGATIVE) Urine Color Lt. yellow (YELLOW) Urine Clarity Clear (CLEAR) Urine pH 6.0 (5.0-9.0) Ur Specific [place] 1.020 (1.005-1.025) Urine Protein Negative (NEG/TRACE) mg/dL Urine Glucose (UA) Negative (NEGATIVE) mg/dL Urine Ketones Negative (NEGATIVE) mg/dL Urine Occult Blood Negative (NEGATIVE) Urine Nitrite Negative (NEGATIVE) Urine Bilirubin Negative (NEGATIVE) Urine Urobilinogen 0.2 (0.2-1.0) EU/dL Ur Leukocyte Esterase Negative (NEGATIVE) Discharge Plan Discharge Chief Complaint: Fall Clinical Impression: Fall, Contusion of arm, Contusion of chest, Contusion of back, Hypokalemia Patient Disposition: Home, Self-Care Time of Disposition Decision: 18:19 Condition: Good Prescriptions / Home Meds: New oxycodone-acetaminophen [Percocet] 5-325 mg tablet 1 tab PO Q12H PRN (Reason: pain) 3 Days Qty: 6 0RF Discontinued acetaminophen [Tylenol 8 Hour] 650 mg tablet extended release 650 mg PO Q8H PRN (Reason: pain) Qty: 20 0RF No Action amlodipine 10 mg tablet 10 mg PO QDAY atorvastatin 80 mg tablet 80 mg PO .qhs cholecalciferol (vitamin D3) [Vitamin D3] 10 mcg (400 unit) capsule 10 mcg PO QDAY ezetimibe 10 mg tablet 10 mg PO QDAY gabapentin 300 mg capsule 300 mg PO Q12H hydroxyzine pamoate 25 mg capsule 25 mg PO Q6H PRN (Reason: anxiety) pantoprazole 40 mg tablet,delayed release (DR/EC) 40 mg PO Q12H paroxetine HCl 40 mg tablet 40 mg PO QDAY ranolazine 1,000 mg tablet extended release 12 hr 1,000 mg PO Q12H Brilinta 60 mg tablet 60 mg PO Q12H trazodone 100 mg tablet 100 mg PO .qhs cyclobenzaprine 10 mg tablet 5 mg PO Q8H PRN (Reason: spasms) estradiol 1 mg tablet 1.5 mg PO DAILY potassium chloride [Klor-Con 10] 10 mEq tablet extended release 10 meq PO DAILY 14 Days Qty: 14 0RF methylprednisolone [Medrol (Enrrique)] 4 mg tablets,dose pack 4 mg PO .as directed Qty: 21 0RF Rx Instructions: please use as per dose enrrique instruction Print Language: [place] Instructions: Contusion in Adults (ED) Referrals: Lovely Wray NP [Primary Care Provider] - 1 week Discharge Date/Time: 02/15/25 18:30
[2025-02-15 16:02] LABS: Potassium 2.8 mmol/L (3.5-5.1)
[2025-02-15] MEDS: KETOROLAC TROMETHAMINE 30 MG/ML VIAL 15 MG IVP (17:02)
[2025-02-15] MEDS: 0.9 % SODIUM CHLORIDE 1,000 ML 1000 ML IV (17:03)
[2025-02-15] MEDS: POTASSIUM BICARBONATE/CIT 25 MEQ TABLET EFF 50 MEQ PO (18:09)
[2025-02-15 18:10] VITALS: BP 146/90; PULSE 73; O2SAT 100
== END 2025-02-15 18:30 | disposition home or self-care (01) ==
PROVIDERS: Emergency Provider Emergency Medicine; PCP Nurse Practitioner Family
DX: S20.219A Contusion of unspecified front wall of thorax, initial encounter (principal); S40.021A Contusion of right upper arm, initial encounter; S30.0XXA Contusion of lower back and pelvis, initial encounter; W10.8XXA Fall (on) (from) other stairs and steps, initial encounter; E87.6 Hypokalemia; Z95.5 Presence of coronary angioplasty implant and graft; Z90.49 Acquired absence of other specified parts of digestive tract; Z98.1 Arthrodesis status; Z90.710 Acquired absence of both cervix and uterus; Z87.891 Personal history of nicotine dependence; Z63.4 Disappearance and death of family member
CPT/HCPCS: 36415; 71260; 73030; 73060; 73080; 73090; 74177; 80053; 81003; 84703; 85025; 99285; J1885; Q9967